=== PATIENT | female | born 1955 ===

== ENCOUNTER 2025-01-16 19:00 | Inpatient (IN) | payer OTHER, SELFPAY ==
--- NOTE | ~2025-01-16 | XR_ITS ---
CLINICAL HISTORY: pre-mri clearance, poor historian, ro implants FB 1 view chest x-ray Comparison: None provided Findings: Mild diffuse reticulonodular pulmonary opacity. Heart size is normal. No acute fracture. IMPRESSION: Mild atypical pneumonia. This document has been electronically signed by: Oral Hilton MD on 03/03/2025 20:45:53
--- NOTE | ~2025-01-16 | CT_ITS ---
EXAMINATION: CT CHEST WITHOUT THEN WITH IV CONTRAST INDICATION: Rule out adenopathy COMPARISON: Correlation is made with an AP portable view of the chest dated 525. TECHNIQUE: Helical CT scan of the chest was performed for an after the administration of intravenous contrast (85 mL Omnipaque 350). Coronal and sagittal reformatted images were generated and reviewed. This CT exam was performed with one or more of the following dose reduction techniques: automated exposure control, adjustment of the mA and/or kV according to patient size, use of iterative reconstruction technique. DLP: 276 mGy-cm CHEST: THYROID: The thyroid is unremarkable. LUNGS: There are mild emphysematous changes. There are multiple nodules in the right upper lobe measuring 7 mm and 8 mm (series 12, image 37) and 9 mm (series 12, image 38). There is a 10 mm nodule in the left upper lobe (series 12, image 58). There is subsegmental atelectasis at the lung bases. MEDIASTINUM: There is no mediastinal lymphadenopathy. ODILON: There is no hilar lymphadenopathy. CARDIOVASCULATURE: The heart is enlarged. There is no pericardial effusion. The thoracic aorta is normal in caliber. There is dilatation of the main pulmonary artery system with pulmonary arterial hypertension. DEGREE OF CORONARY CALCIFICATION: none PLEURA: There is no pleural effusion. No pneumothorax. MAIN AIRWAYS: The mainstem bronchi and proximal branches are patent. AXILLA: There is no axillary lymphadenopathy. BONES AND SOFT TISSUES: There is degenerative disc disease of the spine. UPPER ABDOMEN: The visualized portions of the liver, spleen, and adrenals are unremarkable. CT/CT chest wo/w IV con IMPRESSION: 1. Multiple bilateral pulmonary nodules measuring up to 10 mm in size. Further evaluation should be based on Fleischner Society guidelines below. 2. Cardiomegaly. Findings consistent with pulmonary arterial hypertension. 3. No evidence of mediastinal or hilar lymphadenopathy. Fleischner Criteria for pulmonary nodule follow-up SOLID NODULES: Low risk patient: <6mm: no follow-up 6-8mm: 6 month follow-up CT >8mm: PET/Biopsy/ 3 month follow-up CT High risk patient: <6mm: 12 month follow-up CT 6-8mm: 6 month follow-up CT >8mm: PET/Biopsy/ 3 month follow-up CT SUB-SOLID/GROUNDGLASS NODULES: All patients: > or = 6mm: 6 month follow-up CT *Please note that in patients in the following categories, the Fleischner criteria do not apply: Immunocompromised, lung cancer screening population, age below 35, and patients with known malignancy Electronically signed by: Best Clemons MD 03/11/2025 01:45 PM EDT
--- NOTE | ~2025-01-16 | XR_ITS ---
CLINICAL HISTORY: pre-mri clearance, poor historian, ro implants FB 2 view skull Comparison: None provided Findings: Electronic over the right calvarium is present with leads extending intracranially. Bones are intact. Paranasal sinuses and mastoids are clear. No radiopaque foreign body. IMPRESSION: Electronic device over the right calvarium. This document has been electronically signed by: Oral Hilton MD on 03/03/2025 20:45:43
--- NOTE | ~2025-01-16 | CT_ITS ---
EXAMINATION: CT ANGIOGRAM BRAIN, HEAD CLINICAL INFORMATION: Vasculitis COMPARISON: CT of the head without intravenous contrast on March 05, 2025 TECHNIQUE: Test bolus sequences followed by intravenous administration 85 cc of Omnipaque 350 intravenous contrast. Helical imaging was performed in the axial plane from the skull base to the vertex. Delayed postcontrast imaging of the head was also performed. The data was processed at the 3d technologist workstation for generation of MIP sequences. Three-dimensional volume rendered reformatted images were also generated at an offline 3-D workstation. The degree of stenosis determined by NASCET criteria. This CT examination was performed using dose optimization techniques as appropriate, variously including the following: *Automated exposure control *Adjustment of mA and/or kV according to patient size (this includes techniques or standardized protocols for targeted exams where dose is matched to indication/reason for exam; i.e. extremities or head) *Use of iterative reconstruction technique FINDINGS: Metallic cochlear nerve implant on patient's right posterior head creates streak artifacts that partially limit local evaluation. Head CT: Brain parenchyma: No shift of midline structures, mass effect, parenchymal hemorrhage or evidence of acute territorial infarct. Patchy hypodensities in the white matter most likely reflect a manifestation of chronic small vessel ischemic changes. Ventricles and extra-axial spaces: No hydrocephalus. No extra-axial fluid collection. Extracranial structures: Paranasal sinuses are clear. Bilateral orbital prostheses in place. Postoperative changes of right canal wall up mastoidectomy. Right-sided cochlear nerve implant device in place. No acute calvarial fracture. CT angiogram of the head: Anterior circulation: No aneurysm, arteriovenous malformation or vascular occlusion. Intracranial internal carotid arteries are patent. Anterior and middle cerebral arteries are patent. Anterior communicating artery is not well seen. Posterior circulation: No aneurysm, arteriovenous malformation or vascular occlusion. Intracranial vertebral and basilar arteries are patent. Posterior cerebral arteries are patent. Left posterior communicating artery is patent. CT/CT angio head IMPRESSION: Head CT: No acute intracranial abnormality. CT angiogram of the head: No vascular occlusions. Electronically signed by: Gypsy Salamanca MD 03/11/2025 03:02 PM EDT
--- NOTE | ~2025-01-16 | CT_ITS ---
EXAMINATION: CT HEAD WITHOUT CONTRAST CLINICAL INFORMATION: Encephalopathy. COMPARISON: None available. TECHNIQUE: Contiguous axial imaging was performed from the skull base to vertex without intravenous administration of contrast. This CT examination was performed using dose optimization techniques as appropriate, variously including the following: *Automated exposure control *Adjustment of mA and/or kV according to patient size (this includes techniques or standardized protocols for targeted exams where dose is matched to indication/reason for exam; i.e. extremities or head) *Use of iterative reconstruction technique FINDINGS: There is a right sided sided cochlear nerve implant in place, with associated streak artifact, mildly limiting the examination, especially in the right posterior temporal and parietal region. There is no evidence of intracranial hemorrhage or extra-axial fluid collection. There is no mass effect, or edema. No CT evidence of acute territorial infarct. Ventricles, sulci, and cisterns are normal in size and configuration for patient age. No hydrocephalus. No midline shift. Negative hyperdense MCA sign. Negative insular ribbon sign. Patchy periventricular and deep white matter hypoattenuation is consistent with mild to moderate small vessel ischemic changes. Normal pituitary. Mild atheromatous calcification of the bilateral carotid siphons and V4 segments vertebral arteries bilaterally. Globes and orbital contents image normally. In the superolateral bilateral orbits there are prostheses present. No extracranial soft tissue abnormalities. The paranasal sinuses are normally aerated. There has been a right canal wall up mastoidectomy. Cochlear nerve implant device in place. No suspicious bony abnormalities. There are no acute fractures evident. CT/CT head/brain wo IV con IMPRESSION: 1. No acute intracranial abnormality. 2. Right-sided cochlear nerve implant with associated streak artifact. 3. Right-sided canal wall up mastoidectomy. Electronically signed by: Levi Greer MD 03/05/2025 04:25 PM EDT
--- NOTE | ~2025-01-16 | FL_ITS ---
EXAMINATION: XR LUMBAR PUNCTURE CLINICAL INFORMATION: Encephalopathy COMPARISON: None available. TECHNIQUE: Following explaining procedure, benefits and risk to patient's daughter the following consent was obtained in presence of x-ray technologist. Patient was placed in left lateral ligament is seen in the OR and conscious sedation was administered and a status. In left lateral decubitus view under fluoroscopy a site was selected and marker placed at L3-4 disc level. The marked site was cleaned and draped in usual sterile manner. 1% lidocaine was administered puncture site. A 20-gauge spinal needle was then inserted from from left para midline region intrathecally. After removing stylet and observing CSF fluid return, fluid was collected in 4 test tubes. Postprocedure stylet was reintroduced and needle withdrawn. Complete hemostasis achieved at puncture site. Sterile Band-Aid applied postprocedure. FINDINGS: Under lateral fluoroscopy a lumbar puncture was performed at L3-4 disc level. The CSF flow is very slow and CSF pressure was not obtained. Approximately 3.5 mL of clear CSF fluid was collected in 4 test tubes and sent to lab as per referring physician's orders. FLUOROSCOPY TIME: 2.5 minutes DOSE AREA PRODUCT: 21.5 uGy-m2 (microgray-meter squared) FL/FL guided lumbar puncture LP IMPRESSION: Successful fluoroscopy-guided lumbar puncture performed without immediate complications Electronically signed by: Thompson Andujar MD 03/09/2025 04:06 PM EDT
--- NOTE | ~2025-01-16 | CT_ITS ---
EXAMINATION: CT CHEST WITHOUT CONTRAST CLINICAL INFORMATION: Follow up pulmonary nodules. COMPARISON: CT chest 03/11/2025. TECHNIQUE: Multidetector volumetric CT imaging of the chest was done. Axial MIP volume rendering provided. Sagittal and coronal reformatted images were obtained. This CT examination was performed using dose optimization techniques as appropriate, variously including the following: *Automated exposure control *Adjustment of mA and/or kV according to patient size (this includes techniques or standardized protocols for targeted exams where dose is matched to indication/reason for exam; i.e. extremities or head) *Use of iterative reconstruction technique FINDINGS: LUNGS: Evaluation mildly limited by respiratory motion artifact. Mild to moderate paraseptal emphysematous changes again noted. Previously seen right upper lobe nodules measuring 7 and 8 mm have essentially resolved since the prior examination. A persistent focus of nodular appearing scarring is unchanged in the lateral right upper lobe measuring 9 mm (series 5, image 40). Previously seen left upper lobe nodule measuring 10 mm has also resolved. These were presumably infectious and/or inflammatory. There is stable linear scarring in the right middle lobe distribution, and discoid type atelectasis present in the lingular distribution. Mild medial scarring in the left upper lobe anteriorly is also stable. There are no pneumonic consolidations or abnormal groundglass opacities. There is thickening of the small airways consistent with bronchitis. This appears worsened from the prior exam. No interstitial changes are present. No effusion or pneumothorax. MEDIASTINUM: Normal thyroid. No adenopathy or mass present. Moderate cardiac enlargement present. Tiny pericardial effusion. Minimal coronary calcifications. Mild prominence of the main pulmonary artery, measuring up to 3.8 cm diameter, suggesting increased pulmonary pressures. The aorta is mildly calcified but normal in caliber. 2 vessel branching pattern. Great vessels appear minimally calcified. There is a small amount of secretion in the distal trachea. Central airways otherwise patent. Mildly patulous esophagus present. AXILLA: No mass or abnormal lymph nodes is present. UPPER ABDOMEN: Limited imaging of the upper abdominal contents demonstrates no abnormalities. OSSEOUS STRUCTURES: No suspicious lytic or blastic bone lesions. Mild to moderate degenerative changes of the spine. Sclerosis of the endplates present T8-9, and T11-12 with severe intervening disc degeneration. CT/CT chest wo IV con IMPRESSION: 1. Majority of the previously seen pulmonary nodules have resolved, and were consistent with infectious or inflammatory etiology. 2. There is a persistent 9 mm nodular focus in the lateral right upper lobe, which is felt to represent scarring given the appearance. To be cautious, a 3 month interval follow-up CT is recommended to ensure stability. 3. There is mild to moderate paraseptal emphysema. There is no acute pneumonic consolidation. 4. There is thickening of the small airways suggesting bronchitis. 5. There is moderate cardiac enlargement. Enlarged main pulmonary artery is consistent with pulmonary arterial hypertension. Electronically signed by: Levi Greer MD 04/24/2025 10:56 AM EDT
--- NOTE | ~2025-01-16 | XR_ITS ---
CLINICAL HISTORY: pre-mri clearance, poor historian, ro implants FB --- Additional Notes or Special Instructions: floor will call when they will bring pt down 1 view abdomen Comparison: None provided Findings: No pneumoperitoneum or pneumatosis. Large amount of colonic stool. No abnormal calcifications. No acute fractures. IMPRESSION: Normal bowel gas pattern This document has been electronically signed by: Oral Hilton MD on 03/03/2025 20:45:47
[2025-01-16 19:10] VITALS: BP 144/70; PULSE 59; O2SAT 96
[2025-01-16 19:13] VITALS: BP 167/63; PULSE 65; RESP 14; TEMP 36.6; O2SAT 95; BMI 28.3
--- NOTE | 2025-01-16 19:21 | MHC.EDTECH ---
pts belongings are in locker number 5 in the pod
--- NOTE | 2025-01-16 19:28 | ED_ITS ---
HPI - General Adult General Chief complaint: Altered Mental Status Stated complaint: psych eval Time Seen by Provider: 01/16/25 19:27 Source: patient, family (patient's son and daughter) and EMS Mode of arrival: EMS Limitations: altered mental status History of Present Illness ED Provider: Lottie Aguilera PA-C HPI narrative: Patient is a 69 year old assigned female at with a history of COPD, RA, HTN, hypothyroidism, legally blind, and hearing loss with hearing aids presenting to the emergency department today with paranoia. Patient states that she has no complaints and she wants to go home with her children. Patient's daughter Maricruz Sharif explained via telephone that she arrived at [facility] to pick the patient up after an inpatient psychiatric stay and the patient refused to get in her vehicle because she believes she and her brother are clones or being controlled by someone else and not actually them. She states that she tried to explain to [facility] that the patient was still acting paranoid / unwell and [facility] refused to listen / re-admit the patient. She states the patient is currently unsafe in her current state of mind and was unsuccessful trying to convince the patient she is who she says she is. Related Data Home Medications ?Medication ?Instructions ?Recorded ?Confirmed albuterol sulfate 90 mcg/actuation 2 puff inhalation Q 4-6H PRN 01/18/25 01/18/25 aerosol inhaler Shortness Of Breath Or Wheez ing atorvastatin 40 mg tablet 40 mg PO DAILY 01/18/2512/29 chlorthalidone 25 mg tablet 25 mg PO DAILY 01/18/25 fluticasone 500 mcg-salmeterol 50 1 inh inhalation ALIVIA LY 01/18/25 01/18/25 mcg/dose blistr powdr for inhalation (Wixela Inhub) levetiracetam 500 mg tablet 500 mg PO BID 01/18/25 methimazole 5 mg tablet 5 mg PO DAILY 01/18/2501/18 nifedipine 30 mg tablet,extended 30 mg PO DAILY 01/18/25 release 24 hr terbinafine HCl 250 mg tablet 250 mg PO DAILY 01/18/25 01/18/25 umeclidinium 62.5 mcg/actuation 1 inh inhalation DAILY 01/18/25 01/18/25 blister powder for inhalation (Incruse Ellipta) Allergies Allergy/AdvReac Type Severity Reaction Status Date / Time latex Allergy Unknown Verified 01/16/25 20:11 peanut Allergy Unknown Verified 01/16/25 20:11 Penicillins Allergy Unknown Verified 01/16/25 20:11 Review of Systems 2 Review of Systems: Yes Other (patient refused to answer ROS questions) Constitutional: Constitutional: Reports as per HPI Eyes: Eyes: Reports as per HPI ENT: Reports as per HPI Cardiovascular: Cardiovascular: Reports as per HPI Respiratory: Respiratory: Reports as per HPI Gastrointestinal: Gastrointestinal: Reports as per HPI Genitourinary: Genitourinary: Reports as per HPI Musculoskeletal: Musculoskeletal: Reports as per HPI Integumentary/Breasts: Skin/Breast: Reports as per HPI Neurologic: Reports as per HPI Psychiatric: Psychiatric: Reports as per HPI Endocrine: Endocrine: Reports as per HPI Hematologic/Lymphatic: Hematologic/Lymphatic: Reports as per HPI Allergic/Immunologic: Allergic/Immunologic: Reports as per HPI [facility] Past Medical History Attestation statement: The following information was validated with the patient. (all information validated with the patient's daughter and son) Source: old records reviewed, obtained from family (patient's daughter Maricruz provided all history) and nursing notes reviewed Social History Social History Household Members: Unknown / Unable to assess Housing: Unknown / Unable to assess Do you presently have visiting nurse or other home services: No Patient Tobacco Use Status: Former Tobacco user Tobacco use type: Cigarette Smoked in Last 30 Days: No e-Cigarette/Vaping Use: Never Used Patient Interested in Nicotine Replacement: No Patient Given Instructions on How to Stop Smoking: No Second Hand Smoke Exposure: No Currently Displaying Signs/Symptoms of Drug Intoxication Withdrawal: No Spiritual Healthcare Practices: unknown, pt unable to respond due to mental status/psychosis Congregational Healthcare Practices: unknown, pt unable to respond due to mental status/psychosis Cultural Healthcare Practices: unknown, pt unable to respond due to mental status/psychosis Advance Directives: No Advance Directives Information Provided: No Do you have thoughts of harming others: None Do you have a plan to hurt others: No Plan Recently lost weight without trying: Unsure How much weight loss: Unsure Eating poorly because of decreased appetite: No Nutrition screen score: 4 Nutrition Risks: No Nutritional Risk Patient : No : No Poor oral hygiene: No service: No Sexual orientation: Straight/Heterosexual Physical Exam ED Vital Signs: Vital Signs - 24 hr 01/19/25 23:50 01/20/25 07:35 01/20/25 12:30 Temperature 97.5 F 97.2 F Pulse Rate 62 59 60 Respiratory Rate 18 14 18 Blood Pressure 140/58 H 108/55 L 111/55 L Pulse Oximetry 97 97 Oxygen Delivery Method Room Air Room Air 01/20/25 12:31 Temperature Pulse Rate Respiratory Rate Blood Pressure 111/55 L Pulse Oximetry Oxygen Delivery Method BMI result Body Mass Index 28.3 Const General: cooperative, no acute distress, alert and awake Nutritional Appearance: well nourished Orientation/consciousness: patient oriented x3 HENMT Head: Yes normal to inspection and Yes atraumatic Ears: other (decreased hearing per her baseline - hearing aids in place) General nose exam: Normal external nose present, no nasal discharge noted and no epistaxis Face and sinus: Yes normal facial exam, No abrasion and No laceration Mouth: Normal oral and palatal mucosa present, no drooling and no muffled voice Eyes Other: Legally blind per her baseline General: appearance normal, both eyes and all related structures Periorbital: periorbital findings normal Conjunctivae: conjunctivae normal Neck Neck: Yes normal visual inspection, Yes full ROM and Yes no lymphadenopathy Resp Effort & Inspection: normal respiratory effort and able to speak in complete sentences Neuro General: patient oriented x3, moves all extremities and CN's II-XI intact bilaterally Cognition (Neuro): normal cognition Extrem General: Yes normal to inspection, Yes full ROM and Yes capillary refill normal Psych Appearance: grossly normal Mental Status: mental status grossly normal Attitude: Belligerent attititude/behavior present and Guarded attititude/behavior present Thought content: Paranoid delusions present Course Course Course Narrative: Daughter Maricruz: [phone] OR [phone] Son Anne Marie: [phone] Reevaluation(s) Reevaluation #1: I, Dr. Salomon have take over the care of this patient, I reviewed pertinent blood work and imaging, re-evaluated the patient when appropriate. Time: 07:00 Reevaluation #2: Time: 10:31 Date: 01/17/25 Provider: Yovani Salomon DO Patient in physician observation for psychiatric evaluation.? Swathi psych bed search Time: 10:30 Reevaluation #3: Time: 15:44 Date: 01/18/25 Provider: Maddy Chen CNP Nursing staff that patient was acutely agitated yelling out, threat to self and others. Was not amenable to taking medications orally. Had taken oral Zyprexa earlier in the day with good effect. She is unable to be redirected verbally. Orders have been placed for Zyprexa 10 mg IM. -- 16:30 patient calm cooperative verbally redirectable no physical restraints were required Time: 18:35 Date: 01/18/25 Provider: Adan Abreu MD Patient in physician observation for psychiatric evaluation.? Nursing staff reports the patient is agitated trying to leave the Behavioral Health unit. Patient was medicated earlier with the Zyprexa with some effect. Given her increased agitation I ordered chemical restraint Haldol 10 mg IM, thanks Benadryl 50 mg IM and Versed 2 mg IM. Will continue to monitor. Additional Reevaluation(s): Time: 14:00 Date: 01/20/25 Provider: Aayush Cardoso MD Physician observation ended at 14:00. Patient to be admitted as inpatient to psychiatry. Consultations Consultation #1: I, Dr. Salomon have take over the care of this patient, I reviewed pertinent blood work and imaging, patient has been refusing her workup as per RN, I will evaluate her to determine if I can medically clear her Time: 07:00 Consultation #2: Time: 18:20 Date: 01/19/25 Provider: Aayush Cardoso MD Patient in physician observation for psychiatric evaluation.? No acute events reported overnight. No current complaints. VS stable.? Patient is in bed search status. The patient had not originally agreed to phlebotomy and blood testing. The patient was seen by Psychiatry. They have requested that the patient have blood testing done before considering hospitalization. The patient ultimately was convinced to allow phlebotomy. Labs were done and are unremarkable. I think the patient is medically clear for admission to a psychiatric unit. The patient will be kept in physician observation for now pending psychiatric disposition..Will continue to monitor. Time: 13:57 Date: 01/20/25 Provider: Adan Abreu MD Physician observation ended at 13:57 hours. Patient to be admitted as inpatient to psychiatry. Medications Administered Generic Name Dose Route Start Last Admin Trade Name Freq PRN Reason Stop Dose Admin Acetaminophen 650 mg 01/20/25 12:52 02/04/25 06:38 Acetaminophen 325 Mg Tablet PO 650 mg Q6H PRN Administration Headache/Pain, Scale 1-10 Atorvastatin Calcium 40 mg 01/20/25 11:30 02/05/25 08:17 Atorvastatin Calcium 40 Mg Tablet PO 40 mg DAILY ALLY Administration Benztropine Mesylate 0.5 mg 02/05/25 09:00 02/05/25 08:16 Benztropine Mesylate 0.5 Mg Tablet PO 0.5 mg DAILY ALLY Administration Benztropine Mesylate 1 mg 02/04/25 21:00 02/05/25 04:59 Benztropine Mesylate 1 Mg Tablet PO Not Given BEDTIME ALLY Clonazepam 0.5 mg 02/02/25 10:35 02/04/25 12:19 Clonazepam Odt 0.5 Mg Tab.Rapdis PO 0.5 mg BID PRN Administration severe anxiety/sleep Fluticasone/Vilanterol 1 puff 01/21/25 09:00 02/05/25 08:26 Fluticasone/Vilanterol 200/25 Blst.W.Dev INHALE Not Given RDAILY ALLY Hydrochlorothiazide 25 mg 01/21/25 09:00 02/05/25 08:16 Hydrochlorothiazide 25 Mg Tablet PO 25 mg DAILY ALLY Administration Levetiracetam 500 mg 01/20/25 11:30 02/05/25 08:17 Levetiracetam 500 Mg Tablet PO 500 mg BID ALLY Administration Methimazole 5 mg 01/20/25 11:30 02/05/25 08:16 Methimazole 5 Mg Tablet PO 5 mg DAILY ALLY Administration Nifedipine 30 mg 01/20/25 11:30 02/05/25 08:16 Nifedipine Er 30 Mg Tab.Er.24 PO 30 mg DAILY ALLY Administration Protocol Olanzapine 10 mg 01/22/25 10:17 02/03/25 20:14 Olanzapine 10 Mg Tablet PO 10 mg Q6H PRN Administration severe agitation Risperidone 0.5 mg 02/03/25 09:00 02/05/25 08:16 Risperidone 0.5 Mg Tablet PO 0.5 mg DAILY ALLY Administration Risperidone 2 mg 02/04/25 21:00 02/04/25 21:37 Risperidone 2 Mg Tablet PO Not Given BEDTIME ALLY Tiotropium [place] 1 puff 01/21/25 09:00 02/05/25 08:26 Tiotropium [place] 2.5 Mcg 1 Puff/2.5 Mcg Mist.Inhal INHALE Not Given RDAILY ALLY Trazodone HCl 50 mg 01/20/25 12:52 02/03/25 20:15 Trazodone Hcl 50 Mg Tablet PO 50 mg BEDTIME MRX1 PRN Administration Insomnia Discontinued Medications Generic Name Dose Route Start Last Admin Trade Name Freq PRN Reason Stop Dose Admin Acetaminophen 650 mg 01/19/25 23:30 01/19/25 23:50 Acetaminophen 325 Mg Tablet PO 01/19/25 23:31 Not Given ONCE ONE Benztropine Mesylate 1 mg 01/26/25 15:12 01/26/25 16:50 Benztropine Mesylate 1 Mg Tablet PO 01/26/25 15:13 Not Given ONCE ONE Benztropine Mesylate 0.5 mg 01/26/25 21:00 02/04/25 08:16 Benztropine Mesylate 0.5 Mg Tablet PO 0.5 mg BID ALLY Administration Clonazepam 0.5 mg 01/25/25 21:00 02/02/25 08:24 Clonazepam Odt 0.5 Mg Tab.Rapdis PO 0.5 mg BID ALLY Administration Diphenhydramine HCl 50 mg 01/18/25 18:30 01/18/25 18:35 Diphenhydramine Hcl 50 Mg/Ml Vial IM 01/18/25 18:31 50 mg ONCE ONE Administration Diphenhydramine HCl 50 mg 01/19/25 23:39 01/19/25 23:50 Diphenhydramine Hcl 50 Mg/Ml Vial IM 01/19/25 23:40 50 mg ONCE ONE Administration Haloperidol Lactate 10 mg 01/18/25 18:30 01/18/25 18:35 Haloperidol Lactate 5 Mg/Ml Vial IM 01/18/25 18:31 10 mg ONCE ONE Administration Midazolam HCl 2 mg 01/18/25 18:30 01/18/25 18:35 Midazolam Hcl 2 Mg/2 Ml Vial IM 01/18/25 18:31 2 mg ONCE ONE Administration Olanzapine 5 mg 01/17/25 09:41 01/17/25 10:03 Olanzapine 5 Mg Tablet PO 01/17/25 09:42 5 mg ONCE ONE Administration Olanzapine 5 mg 01/17/25 14:08 01/17/25 15:58 Olanzapine 5 Mg Tablet PO 01/17/25 14:09 Not Given ONCE ONE Olanzapine 10 mg 01/17/25 21:00 01/21/25 21:03 Olanzapine Odt 10 Mg Tab.Rapdis TRANSLINGU Not Given BEDTIME ALLY Olanzapine 5 mg 01/17/25 14:09 01/18/25 14:25 Olanzapine 5 Mg Tablet PO 5 mg Q6H PRN Administration severe agitation Olanzapine 10 mg 01/18/25 05:34 01/18/25 07:08 Olanzapine 10 Mg Vial IM 01/18/25 05:35 Not Given STAT STA Olanzapine 10 mg 01/18/25 15:36 01/18/25 15:40 Olanzapine 10 Mg Vial IM 01/18/25 15:37 10 mg ONCE ONE Administration Olanzapine 10 mg 01/19/25 23:39 01/19/25 23:50 Olanzapine 10 Mg Vial IM 01/19/25 23:40 10 mg STAT STA Administration Olanzapine 5 mg 02/02/25 10:33 02/04/25 21:31 Olanzapine 10 Mg Vial IM 5 mg BID PRN Administration if refuses oral per court orde Risperidone 1 mg 01/22/25 10:20 01/25/25 08:27 Risperidone 1 Mg Tablet PO 1 mg BID ALLY Administration Risperidone 2 mg 01/25/25 21:00 01/26/25 08:24 Risperidone 2 Mg Tablet PO 2 mg BID ALLY Administration Risperidone 1 mg 01/26/25 21:00 02/02/25 20:03 Risperidone 1 Mg Tablet PO 1 mg BID ALLY Administration Risperidone 1 mg 02/03/25 21:00 02/03/25 20:15 Risperidone 1 Mg Tablet PO 1 mg BEDTIME ALLY Administration Medical Decision Making Medical Decision Making MDM Narrative: Patient is a 69 year old assigned female at with a history of COPD, RA, HTN, hypothyroidism, legally blind, and hearing loss with hearing aids presenting to the emergency department today with paranoia. Patient's physical exam was as noted in the physical exam portion of this note. Patient has paranoid delusions of people not being who they claim to be or being other people and she seem to respond to internal stimuli during my interactions with her. At this time, the patient is refusing all blood draws or an EKG. Patient's urine showed no acute process. I had an extensive conversation with the patient's daughter who expressed concern over the patient's continued and increased paranoia. Patient will remain in the department pending CARE team evaluation. 01/19/25 1109 Angela Goodrich MD I was informed by the patient's nurse that she is very agitated, can not be deescalated, patient does not seem to understand what she is doing. Patient trying to rip the door from her room. Patient not taking p.o. medications. Patient we will be given 10 mg IM of olanzapine and 50 mg of IM Benadryl Differential Diagnosis Differential Diagnoses: The differential diagnosis associated with the presentation includes Paranoia Admission/Observation Consideration of admission/observation: Escalation of care including admission/observation considered Patient's disposition will be determined after CARE team evaluation. Lab Data [facility] Lab Attestation statement: I reviewed the patient's lab results. My interpretation of these results are in the MDM Rationale portion of this note. 01/19/25 12:57 02/03/25 07:41 Labs: Lab Results 01/16/25 01/19/25 01/19/25 Range/Units 21:32 12:57 12:57 WBC 5.3 5.0 (4.8-10.8) X10*3/uL RBC 4.44 (4.20-5.50) X10*6/uL Hgb (12.0-16.0) g/dl Hct (37.0-47.0) % MCV (80.0-98.0) fL MCH (27.0-33.0) pg MCHC (31.0-35.0) g/dl RDW (11.0-16.0) % Plt Count (160-400) X10*3/uL MPV (9.4-12.3) fL Immature Gran % (Auto) (0.0-0.4) % Neut % (Auto) (45-73) % Lymph % (Auto) (20-40) % [place] % (Auto) (2-11) % Eos % (Auto) (0-4) % Baso % (Auto) (0-2) % Lymph # (Auto) (1.2-4.9) X10*3/uL [place] # (Auto) (0.1-1.2) X10*3/uL Eos # (Auto) (0.0-0.4) X10*3/uL Baso # (Auto) (0.0-0.2) X10*3/uL Abs Immat Gran (auto) (0.00-0.03) X10*3/uL Absolute Neuts (auto) (2.0-8.3) x10*3/uL Absolute Nucleated RBC (0.0-0.012) X10*3/uL Nucleated RBC % (auto) (0.0-0.2) /100WBC Sodium (135-145) mmol/L Potassium (3.3-5.1) mmol/L Chloride (96-108) mmol/L Carbon Dioxide (22-29) mmol/L Anion Gap (12-20) BUN (9-16) mg/dL Creatinine (0.5-1.4) mg/dL Estim Creat Clear Calc Estimated GFR Random Glucose (60-115) mg/dL Calcium (8.4-10.2) mg/dL Total Bilirubin (0.0-1.0) mg/dL AST (5-31) U/L ALT (0-31) U/L Alkaline Phosphatase (39-117) U/L Total Protein (6.5-8.0) g/dL Albumin (3.5-5.0) g/dL Vitamin B12 (200-900) pg/mL Folate (> or = 4.0) ng/mL TSH (0.32-4.0) uIU/mL Urine Color Yellow Urine Appearance Clear Urine pH 6.0 (5.0-9.0) Ur Specific [place] 1.015 (1.005-1.025) Urine Protein Negative (Neg-Trace) mg/dL Urine Glucose (UA) Negative (Negative) mg/dL Urine Ketones Negative (Negative) mg/dL Urine Blood Negative (Negative) Urine Nitrite Negative (Negative) Ur Leukocyte Esterase Negative (Negative) Salicylates (15-30) mg/dL Urine Opiates Screen Not Detected (Not Detect) Ur Buprenorphine Scrn Not Detected (Not Detect) ng/mL Ur Oxycodone Screen Not Detected (Not Detect) ng/mL Urine Methadone Screen Not Detected (Not Detect) ng/mL Urine Fentanyl Screen Not Detected (Not Detect) Acetaminophen (<30) mcg/mL Ur Barbiturates Screen Not Detected (Not Detect) Ur Phencyclidine Scrn Not Detected (Not Detect) Ur Amphetamines Screen Not Detected (Not Detect) U Benzodiazepines Scrn Not Detected (Not Detect) Urine Cocaine Screen Not Detected (Not Detect) U Marijuana (THC) Screen Not Detected (Not Detect) Ethyl Alcohol mg/dL 01/19/25 01/19/25 01/19/25 Range/Units 12:57 12:57 12:57 WBC (4.8-10.8) X10*3/uL RBC 4.44 (4.20-5.50) X10*6/uL Hgb 13.9 14.1 (12.0-16.0) g/dl Hct 41.9 41.2 (37.0-47.0) % MCV 94.4 (80.0-98.0) fL MCH (27.0-33.0) pg MCHC (31.0-35.0) g/dl RDW (11.0-16.0) % Plt Count (160-400) X10*3/uL MPV (9.4-12.3) fL Immature Gran % (Auto) (0.0-0.4) % Neut % (Auto) (45-73) % Lymph % (Auto) (20-40) % [place] % (Auto) (2-11) % Eos % (Auto) (0-4) % Baso % (Auto) (0-2) % Lymph # (Auto) (1.2-4.9) X10*3/uL [place] # (Auto) (0.1-1.2) X10*3/uL Eos # (Auto) (0.0-0.4) X10*3/uL Baso # (Auto) (0.0-0.2) X10*3/uL Abs Immat Gran (auto) (0.00-0.03) X10*3/uL Absolute Neuts (auto) (2.0-8.3) x10*3/uL Absolute Nucleated RBC (0.0-0.012) X10*3/uL Nucleated RBC % (auto) (0.0-0.2) /100WBC Sodium (135-145) mmol/L Potassium (3.3-5.1) mmol/L Chloride (96-108) mmol/L Carbon Dioxide (22-29) mmol/L Anion Gap (12-20) BUN (9-16) mg/dL Creatinine (0.5-1.4) mg/dL Estim Creat Clear Calc Estimated GFR Random Glucose (60-115) mg/dL Calcium (8.4-10.2) mg/dL Total Bilirubin (0.0-1.0) mg/dL AST (5-31) U/L ALT (0-31) U/L Alkaline Phosphatase (39-117) U/L Total Protein (6.5-8.0) g/dL Albumin (3.5-5.0) g/dL Vitamin B12 (200-900) pg/mL Folate (> or = 4.0) ng/mL TSH (0.32-4.0) uIU/mL Urine Color Urine Appearance Urine pH (5.0-9.0) Ur Specific [place] (1.005-1.025) Urine Protein (Neg-Trace) mg/dL Urine Glucose (UA) (Negative) mg/dL Urine Ketones (Negative) mg/dL Urine Blood (Negative) Urine Nitrite (Negative) Ur Leukocyte Esterase (Negative) Salicylates (15-30) mg/dL Urine Opiates Screen (Not Detect) Ur Buprenorphine Scrn (Not Detect) ng/mL Ur Oxycodone Screen (Not Detect) ng/mL Urine Methadone Screen (Not Detect) ng/mL Urine Fentanyl Screen (Not Detect) Acetaminophen (<30) mcg/mL Ur Barbiturates Screen (Not Detect) Ur Phencyclidine Scrn (Not Detect) Ur Amphetamines Screen (Not Detect) U Benzodiazepines Scrn (Not Detect) Urine Cocaine Screen (Not Detect) U Marijuana (THC) Screen (Not Detect) Ethyl Alcohol mg/dL 01/19/25 01/19/25 01/19/25 Range/Units 12:57 12:57 12:57 WBC (4.8-10.8) X10*3/uL RBC (4.20-5.50) X10*6/uL Hgb (12.0-16.0) g/dl Hct (37.0-47.0) % MCV 92.8 (80.0-98.0) fL MCH 31.3 31.8 (27.0-33.0) pg MCHC 33.2 34.2 (31.0-35.0) g/dl RDW 12.2 (11.0-16.0) % Plt Count (160-400) X10*3/uL MPV (9.4-12.3) fL Immature Gran % (Auto) (0.0-0.4) % Neut % (Auto) (45-73) % Lymph % (Auto) (20-40) % [place] % (Auto) (2-11) % Eos % (Auto) (0-4) % Baso % (Auto) (0-2) % Lymph # (Auto) (1.2-4.9) X10*3/uL [place] # (Auto) (0.1-1.2) X10*3/uL Eos # (Auto) (0.0-0.4) X10*3/uL Baso # (Auto) (0.0-0.2) X10*3/uL Abs Immat Gran (auto) (0.00-0.03) X10*3/uL Absolute Neuts (auto) (2.0-8.3) x10*3/uL Absolute Nucleated RBC (0.0-0.012) X10*3/uL Nucleated RBC % (auto) (0.0-0.2) /100WBC Sodium (135-145) mmol/L Potassium (3.3-5.1) mmol/L Chloride (96-108) mmol/L Carbon Dioxide (22-29) mmol/L Anion Gap (12-20) BUN (9-16) mg/dL Creatinine (0.5-1.4) mg/dL Estim Creat Clear Calc Estimated GFR Random Glucose (60-115) mg/dL Calcium (8.4-10.2) mg/dL Total Bilirubin (0.0-1.0) mg/dL AST (5-31) U/L ALT (0-31) U/L Alkaline Phosphatase (39-117) U/L Total Protein (6.5-8.0) g/dL Albumin (3.5-5.0) g/dL Vitamin B12 (200-900) pg/mL Folate (> or = 4.0) ng/mL TSH (0.32-4.0) uIU/mL Urine Color Urine Appearance Urine pH (5.0-9.0) Ur Specific [place] (1.005-1.025) Urine Protein (Neg-Trace) mg/dL Urine Glucose (UA) (Negative) mg/dL Urine Ketones (Negative) mg/dL Urine Blood (Negative) Urine Nitrite (Negative) Ur Leukocyte Esterase (Negative) Salicylates (15-30) mg/dL Urine Opiates Screen (Not Detect) Ur Buprenorphine Scrn (Not Detect) ng/mL Ur Oxycodone Screen (Not Detect) ng/mL Urine Methadone Screen (Not Detect) ng/mL Urine Fentanyl Screen (Not Detect) Acetaminophen (<30) mcg/mL Ur Barbiturates Screen (Not Detect) Ur Phencyclidine Scrn (Not Detect) Ur Amphetamines Screen (Not Detect) U Benzodiazepines Scrn (Not Detect) Urine Cocaine Screen (Not Detect) U Marijuana (THC) Screen (Not Detect) Ethyl Alcohol mg/dL 01/19/25 01/19/25 01/19/25 Range/Units 12:57 12:57 12:57 WBC (4.8-10.8) X10*3/uL RBC (4.20-5.50) X10*6/uL Hgb (12.0-16.0) g/dl Hct (37.0-47.0) % MCV (80.0-98.0) fL MCH (27.0-33.0) pg MCHC (31.0-35.0) g/dl RDW 12.3 (11.0-16.0) % Plt Count 185 184 (160-400) X10*3/uL MPV 10.5 10.3 (9.4-12.3) fL Immature Gran % (Auto) 0.2 (0.0-0.4) % Neut % (Auto) (45-73) % Lymph % (Auto) (20-40) % [place] % (Auto) (2-11) % Eos % (Auto) (0-4) % Baso % (Auto) (0-2) % Lymph # (Auto) (1.2-4.9) X10*3/uL [place] # (Auto) (0.1-1.2) X10*3/uL Eos # (Auto) (0.0-0.4) X10*3/uL Baso # (Auto) (0.0-0.2) X10*3/uL Abs Immat Gran (auto) (0.00-0.03) X10*3/uL Absolute Neuts (auto) (2.0-8.3) x10*3/uL Absolute Nucleated RBC (0.0-0.012) X10*3/uL Nucleated RBC % (auto) (0.0-0.2) /100WBC Sodium (135-145) mmol/L Potassium (3.3-5.1) mmol/L Chloride (96-108) mmol/L Carbon Dioxide (22-29) mmol/L Anion Gap (12-20) BUN (9-16) mg/dL Creatinine (0.5-1.4) mg/dL Estim Creat Clear Calc Estimated GFR Random Glucose (60-115) mg/dL Calcium (8.4-10.2) mg/dL Total Bilirubin (0.0-1.0) mg/dL AST (5-31) U/L ALT (0-31) U/L Alkaline Phosphatase (39-117) U/L Total Protein (6.5-8.0) g/dL Albumin (3.5-5.0) g/dL Vitamin B12 (200-900) pg/mL Folate (> or = 4.0) ng/mL TSH (0.32-4.0) uIU/mL Urine Color Urine Appearance Urine pH (5.0-9.0) Ur Specific [place] (1.005-1.025) Urine Protein (Neg-Trace) mg/dL Urine Glucose (UA) (Negative) mg/dL Urine Ketones (Negative) mg/dL Urine Blood (Negative) Urine Nitrite (Negative) Ur Leukocyte Esterase (Negative) Salicylates (15-30) mg/dL Urine Opiates Screen (Not Detect) Ur Buprenorphine Scrn (Not Detect) ng/mL Ur Oxycodone Screen (Not Detect) ng/mL Urine Methadone Screen (Not Detect) ng/mL Urine Fentanyl Screen (Not Detect) Acetaminophen (<30) mcg/mL Ur Barbiturates Screen (Not Detect) Ur Phencyclidine Scrn (Not Detect) Ur Amphetamines Screen (Not Detect) U Benzodiazepines Scrn (Not Detect) Urine Cocaine Screen (Not Detect) U Marijuana (THC) Screen (Not Detect) Ethyl Alcohol mg/dL 01/19/25 01/19/25 01/19/25 Range/Units 12:57 12:57 12:57 WBC (4.8-10.8) X10*3/uL RBC (4.20-5.50) X10*6/uL Hgb (12.0-16.0) g/dl Hct (37.0-47.0) % MCV (80.0-98.0) fL MCH (27.0-33.0) pg MCHC (31.0-35.0) g/dl RDW (11.0-16.0) % Plt Count (160-400) X10*3/uL MPV (9.4-12.3) fL Immature Gran % (Auto) 0.2 (0.0-0.4) % Neut % (Auto) 58.7 58.5 (45-73) % Lymph % (Auto) 32.0 32.3 (20-40) % [place] % (Auto) 6.4 (2-11) % Eos % (Auto) (0-4) % Baso % (Auto) (0-2) % Lymph # (Auto) (1.2-4.9) X10*3/uL [place] # (Auto) (0.1-1.2) X10*3/uL Eos # (Auto) (0.0-0.4) X10*3/uL Baso # (Auto) (0.0-0.2) X10*3/uL Abs Immat Gran (auto) (0.00-0.03) X10*3/uL Absolute Neuts (auto) (2.0-8.3) x10*3/uL Absolute Nucleated RBC (0.0-0.012) X10*3/uL Nucleated RBC % (auto) (0.0-0.2) /100WBC Sodium (135-145) mmol/L Potassium (3.3-5.1) mmol/L Chloride (96-108) mmol/L Carbon Dioxide (22-29) mmol/L Anion Gap (12-20) BUN (9-16) mg/dL Creatinine (0.5-1.4) mg/dL Estim Creat Clear Calc Estimated GFR Random Glucose (60-115) mg/dL Calcium (8.4-10.2) mg/dL Total Bilirubin (0.0-1.0) mg/dL AST (5-31) U/L ALT (0-31) U/L Alkaline Phosphatase (39-117) U/L Total Protein (6.5-8.0) g/dL Albumin (3.5-5.0) g/dL Vitamin B12 (200-900) pg/mL Folate (> or = 4.0) ng/mL TSH (0.32-4.0) uIU/mL Urine Color Urine Appearance Urine pH (5.0-9.0) Ur Specific [place] (1.005-1.025) Urine Protein (Neg-Trace) mg/dL Urine Glucose (UA) (Negative) mg/dL Urine Ketones (Negative) mg/dL Urine Blood (Negative) Urine Nitrite (Negative) Ur Leukocyte Esterase (Negative) Salicylates (15-30) mg/dL Urine Opiates Screen (Not Detect) Ur Buprenorphine Scrn (Not Detect) ng/mL Ur Oxycodone Screen (Not Detect) ng/mL Urine Methadone Screen (Not Detect) ng/mL Urine Fentanyl Screen (Not Detect) Acetaminophen (<30) mcg/mL Ur Barbiturates Screen (Not Detect) Ur Phencyclidine Scrn (Not Detect) Ur Amphetamines Screen (Not Detect) U Benzodiazepines Scrn (Not Detect) Urine Cocaine Screen (Not Detect) U Marijuana (THC) Screen (Not Detect) Ethyl Alcohol mg/dL 01/19/25 01/19/25 01/19/25 Range/Units 12:57 12:57 12:57 WBC (4.8-10.8) X10*3/uL RBC (4.20-5.50) X10*6/uL Hgb (12.0-16.0) g/dl Hct (37.0-47.0) % MCV (80.0-98.0) fL MCH (27.0-33.0) pg MCHC (31.0-35.0) g/dl RDW (11.0-16.0) % Plt Count (160-400) X10*3/uL MPV (9.4-12.3) fL Immature Gran % (Auto) (0.0-0.4) % Neut % (Auto) (45-73) % Lymph % (Auto) (20-40) % [place] % (Auto) 7.0 (2-11) % Eos % (Auto) 2.1 1.4 (0-4) % Baso % (Auto) 0.6 0.6 (0-2) % Lymph # (Auto) 1.7 (1.2-4.9) X10*3/uL [place] # (Auto) (0.1-1.2) X10*3/uL Eos # (Auto) (0.0-0.4) X10*3/uL Baso # (Auto) (0.0-0.2) X10*3/uL Abs Immat Gran (auto) (0.00-0.03) X10*3/uL Absolute Neuts (auto) (2.0-8.3) x10*3/uL Absolute Nucleated RBC (0.0-0.012) X10*3/uL Nucleated RBC % (auto) (0.0-0.2) /100WBC Sodium (135-145) mmol/L Potassium (3.3-5.1) mmol/L Chloride (96-108) mmol/L Carbon Dioxide (22-29) mmol/L Anion Gap (12-20) BUN (9-16) mg/dL Creatinine (0.5-1.4) mg/dL Estim Creat Clear Calc Estimated GFR Random Glucose (60-115) mg/dL Calcium (8.4-10.2) mg/dL Total Bilirubin (0.0-1.0) mg/dL AST (5-31) U/L ALT (0-31) U/L Alkaline Phosphatase (39-117) U/L Total Protein (6.5-8.0) g/dL Albumin (3.5-5.0) g/dL Vitamin B12 (200-900) pg/mL Folate (> or = 4.0) ng/mL TSH (0.32-4.0) uIU/mL Urine Color Urine Appearance Urine pH (5.0-9.0) Ur Specific [place] (1.005-1.025) Urine Protein (Neg-Trace) mg/dL Urine Glucose (UA) (Negative) mg/dL Urine Ketones (Negative) mg/dL Urine Blood (Negative) Urine Nitrite (Negative) Ur Leukocyte Esterase (Negative) Salicylates (15-30) mg/dL Urine Opiates Screen (Not Detect) Ur Buprenorphine Scrn (Not Detect) ng/mL Ur Oxycodone Screen (Not Detect) ng/mL Urine Methadone Screen (Not Detect) ng/mL Urine Fentanyl Screen (Not Detect) Acetaminophen (<30) mcg/mL Ur Barbiturates Screen (Not Detect) Ur Phencyclidine Scrn (Not Detect) Ur Amphetamines Screen (Not Detect) U Benzodiazepines Scrn (Not Detect) Urine Cocaine Screen (Not Detect) U Marijuana (THC) Screen (Not Detect) Ethyl Alcohol mg/dL 01/19/25 01/19/25 01/19/25 Range/Units 12:57 12:57 12:57 WBC (4.8-10.8) X10*3/uL RBC (4.20-5.50) X10*6/uL Hgb (12.0-16.0) g/dl Hct (37.0-47.0) % MCV (80.0-98.0) fL MCH (27.0-33.0) pg MCHC (31.0-35.0) g/dl RDW (11.0-16.0) % Plt Count (160-400) X10*3/uL MPV (9.4-12.3) fL Immature Gran % (Auto) (0.0-0.4) % Neut % (Auto) (45-73) % Lymph % (Auto) (20-40) % [place] % (Auto) (2-11) % Eos % (Auto) (0-4) % Baso % (Auto) (0-2) % Lymph # (Auto) 1.6 (1.2-4.9) X10*3/uL [place] # (Auto) 0.3 0.4 (0.1-1.2) X10*3/uL Eos # (Auto) 0.1 0.1 (0.0-0.4) X10*3/uL Baso # (Auto) 0.0 (0.0-0.2) X10*3/uL Abs Immat Gran (auto) (0.00-0.03) X10*3/uL Absolute Neuts (auto) (2.0-8.3) x10*3/uL Absolute Nucleated RBC (0.0-0.012) X10*3/uL Nucleated RBC % (auto) (0.0-0.2) /100WBC Sodium (135-145) mmol/L Potassium (3.3-5.1) mmol/L Chloride (96-108) mmol/L Carbon Dioxide (22-29) mmol/L Anion Gap (12-20) BUN (9-16) mg/dL Creatinine (0.5-1.4) mg/dL Estim Creat Clear Calc Estimated GFR Random Glucose (60-115) mg/dL Calcium (8.4-10.2) mg/dL Total Bilirubin (0.0-1.0) mg/dL AST (5-31) U/L ALT (0-31) U/L Alkaline Phosphatase (39-117) U/L Total Protein (6.5-8.0) g/dL Albumin (3.5-5.0) g/dL Vitamin B12 (200-900) pg/mL Folate (> or = 4.0) ng/mL TSH (0.32-4.0) uIU/mL Urine Color Urine Appearance Urine pH (5.0-9.0) Ur Specific [place] (1.005-1.025) Urine Protein (Neg-Trace) mg/dL Urine Glucose (UA) (Negative) mg/dL Urine Ketones (Negative) mg/dL Urine Blood (Negative) Urine Nitrite (Negative) Ur Leukocyte Esterase (Negative) Salicylates (15-30) mg/dL Urine Opiates Screen (Not Detect) Ur Buprenorphine Scrn (Not Detect) ng/mL Ur Oxycodone Screen (Not Detect) ng/mL Urine Methadone Screen (Not Detect) ng/mL Urine Fentanyl Screen (Not Detect) Acetaminophen (<30) mcg/mL Ur Barbiturates Screen (Not Detect) Ur Phencyclidine Scrn (Not Detect) Ur Amphetamines Screen (Not Detect) U Benzodiazepines Scrn (Not Detect) Urine Cocaine Screen (Not Detect) U Marijuana (THC) Screen (Not Detect) Ethyl Alcohol mg/dL 01/19/25 01/19/25 01/19/25 Range/Units 12:57 12:57 12:57 WBC (4.8-10.8) X10*3/uL RBC (4.20-5.50) X10*6/uL Hgb (12.0-16.0) g/dl Hct (37.0-47.0) % MCV (80.0-98.0) fL MCH (27.0-33.0) pg MCHC (31.0-35.0) g/dl RDW (11.0-16.0) % Plt Count (160-400) X10*3/uL MPV (9.4-12.3) fL Immature Gran % (Auto) (0.0-0.4) % Neut % (Auto) (45-73) % Lymph % (Auto) (20-40) % [place] % (Auto) (2-11) % Eos % (Auto) (0-4) % Baso % (Auto) (0-2) % Lymph # (Auto) (1.2-4.9) X10*3/uL [place] # (Auto) (0.1-1.2) X10*3/uL Eos # (Auto) (0.0-0.4) X10*3/uL Baso # (Auto) 0.0 (0.0-0.2) X10*3/uL Abs Immat Gran (auto) 0.01 0.01 (0.00-0.03) X10*3/uL Absolute Neuts (auto) 3.1 2.9 (2.0-8.3) x10*3/uL Absolute Nucleated RBC 0.000 (0.0-0.012) X10*3/uL Nucleated RBC % (auto) (0.0-0.2) /100WBC Sodium (135-145) mmol/L Potassium (3.3-5.1) mmol/L Chloride (96-108) mmol/L Carbon Dioxide (22-29) mmol/L Anion Gap (12-20) BUN (9-16) mg/dL Creatinine (0.5-1.4) mg/dL Estim Creat Clear Calc Estimated GFR Random Glucose (60-115) mg/dL Calcium (8.4-10.2) mg/dL Total Bilirubin (0.0-1.0) mg/dL AST (5-31) U/L ALT (0-31) U/L Alkaline Phosphatase (39-117) U/L Total Protein (6.5-8.0) g/dL Albumin (3.5-5.0) g/dL Vitamin B12 (200-900) pg/mL Folate (> or = 4.0) ng/mL TSH (0.32-4.0) uIU/mL Urine Color Urine Appearance Urine pH (5.0-9.0) Ur Specific [place] (1.005-1.025) Urine Protein (Neg-Trace) mg/dL Urine Glucose (UA) (Negative) mg/dL Urine Ketones (Negative) mg/dL Urine Blood (Negative) Urine Nitrite (Negative) Ur Leukocyte Esterase (Negative) Salicylates (15-30) mg/dL Urine Opiates Screen (Not Detect) Ur Buprenorphine Scrn (Not Detect) ng/mL Ur Oxycodone Screen (Not Detect) ng/mL Urine Methadone Screen (Not Detect) ng/mL Urine Fentanyl Screen (Not Detect) Acetaminophen (<30) mcg/mL Ur Barbiturates Screen (Not Detect) Ur Phencyclidine Scrn (Not Detect) Ur Amphetamines Screen (Not Detect) U Benzodiazepines Scrn (Not Detect) Urine Cocaine Screen (Not Detect) U Marijuana (THC) Screen (Not Detect) Ethyl Alcohol mg/dL 01/19/25 01/19/25 01/19/25 Range/Units 12:57 12:57 12:57 WBC (4.8-10.8) X10*3/uL RBC (4.20-5.50) X10*6/uL Hgb (12.0-16.0) g/dl Hct (37.0-47.0) % MCV (80.0-98.0) fL MCH (27.0-33.0) pg MCHC (31.0-35.0) g/dl RDW (11.0-16.0) % Plt Count (160-400) X10*3/uL MPV (9.4-12.3) fL Immature Gran % (Auto) (0.0-0.4) % Neut % (Auto) (45-73) % Lymph % (Auto) (20-40) % [place] % (Auto) (2-11) % Eos % (Auto) (0-4) % Baso % (Auto) (0-2) % Lymph # (Auto) (1.2-4.9) X10*3/uL [place] # (Auto) (0.1-1.2) X10*3/uL Eos # (Auto) (0.0-0.4) X10*3/uL Baso # (Auto) (0.0-0.2) X10*3/uL Abs Immat Gran (auto) (0.00-0.03) X10*3/uL Absolute Neuts (auto) (2.0-8.3) x10*3/uL Absolute Nucleated RBC 0.000 (0.0-0.012) X10*3/uL Nucleated RBC % (auto) 0.0 0.0 (0.0-0.2) /100WBC Sodium 142 142 (135-145) mmol/L Potassium 3.8 (3.3-5.1) mmol/L Chloride (96-108) mmol/L Carbon Dioxide (22-29) mmol/L Anion Gap (12-20) BUN (9-16) mg/dL Creatinine (0.5-1.4) mg/dL Estim Creat Clear Calc Estimated GFR Random Glucose (60-115) mg/dL Calcium (8.4-10.2) mg/dL Total Bilirubin (0.0-1.0) mg/dL AST (5-31) U/L ALT (0-31) U/L Alkaline Phosphatase (39-117) U/L Total Protein (6.5-8.0) g/dL Albumin (3.5-5.0) g/dL Vitamin B12 (200-900) pg/mL Folate (> or = 4.0) ng/mL TSH (0.32-4.0) uIU/mL Urine Color Urine Appearance Urine pH (5.0-9.0) Ur Specific [place] (1.005-1.025) Urine Protein (Neg-Trace) mg/dL Urine Glucose (UA) (Negative) mg/dL Urine Ketones (Negative) mg/dL Urine Blood (Negative) Urine Nitrite (Negative) Ur Leukocyte Esterase (Negative) Salicylates (15-30) mg/dL Urine Opiates Screen (Not Detect) Ur Buprenorphine Scrn (Not Detect) ng/mL Ur Oxycodone Screen (Not Detect) ng/mL Urine Methadone Screen (Not Detect) ng/mL Urine Fentanyl Screen (Not Detect) Acetaminophen (<30) mcg/mL Ur Barbiturates Screen (Not Detect) Ur Phencyclidine Scrn (Not Detect) Ur Amphetamines Screen (Not Detect) U Benzodiazepines Scrn (Not Detect) Urine Cocaine Screen (Not Detect) U Marijuana (THC) Screen (Not Detect) Ethyl Alcohol mg/dL 01/19/25 01/19/25 01/19/25 Range/Units 12:57 12:57 12:57 WBC (4.8-10.8) X10*3/uL RBC (4.20-5.50) X10*6/uL Hgb (12.0-16.0) g/dl Hct (37.0-47.0) % MCV (80.0-98.0) fL MCH (27.0-33.0) pg MCHC (31.0-35.0) g/dl RDW (11.0-16.0) % Plt Count (160-400) X10*3/uL MPV (9.4-12.3) fL Immature Gran % (Auto) (0.0-0.4) % Neut % (Auto) (45-73) % Lymph % (Auto) (20-40) % [place] % (Auto) (2-11) % Eos % (Auto) (0-4) % Baso % (Auto) (0-2) % Lymph # (Auto) (1.2-4.9) X10*3/uL [place] # (Auto) (0.1-1.2) X10*3/uL Eos # (Auto) (0.0-0.4) X10*3/uL Baso # (Auto) (0.0-0.2) X10*3/uL Abs Immat Gran (auto) (0.00-0.03) X10*3/uL Absolute Neuts (auto) (2.0-8.3) x10*3/uL Absolute Nucleated RBC (0.0-0.012) X10*3/uL Nucleated RBC % (auto) (0.0-0.2) /100WBC Sodium (135-145) mmol/L Potassium 3.8 (3.3-5.1) mmol/L Chloride 105 105 (96-108) mmol/L Carbon Dioxide 29 29 (22-29) mmol/L Anion Gap 12 (12-20) BUN (9-16) mg/dL Creatinine (0.5-1.4) mg/dL Estim Creat Clear Calc Estimated GFR Random Glucose (60-115) mg/dL Calcium (8.4-10.2) mg/dL Total Bilirubin (0.0-1.0) mg/dL AST (5-31) U/L ALT (0-31) U/L Alkaline Phosphatase (39-117) U/L Total Protein (6.5-8.0) g/dL Albumin (3.5-5.0) g/dL Vitamin B12 (200-900) pg/mL Folate (> or = 4.0) ng/mL TSH (0.32-4.0) uIU/mL Urine Color Urine Appearance Urine pH (5.0-9.0) Ur Specific [place] (1.005-1.025) Urine Protein (Neg-Trace) mg/dL Urine Glucose (UA) (Negative) mg/dL Urine Ketones (Negative) mg/dL Urine Blood (Negative) Urine Nitrite (Negative) Ur Leukocyte Esterase (Negative) Salicylates (15-30) mg/dL Urine Opiates Screen (Not Detect) Ur Buprenorphine Scrn (Not Detect) ng/mL Ur Oxycodone Screen (Not Detect) ng/mL Urine Methadone Screen (Not Detect) ng/mL Urine Fentanyl Screen (Not Detect) Acetaminophen (<30) mcg/mL Ur Barbiturates Screen (Not Detect) Ur Phencyclidine Scrn (Not Detect) Ur Amphetamines Screen (Not Detect) U Benzodiazepines Scrn (Not Detect) Urine Cocaine Screen (Not Detect) U Marijuana (THC) Screen (Not Detect) Ethyl Alcohol mg/dL 01/19/25 01/19/25 01/19/25 Range/Units 12:57 12:57 12:57 WBC (4.8-10.8) X10*3/uL RBC (4.20-5.50) X10*6/uL Hgb (12.0-16.0) g/dl Hct (37.0-47.0) % MCV (80.0-98.0) fL MCH (27.0-33.0) pg MCHC (31.0-35.0) g/dl RDW (11.0-16.0) % Plt Count (160-400) X10*3/uL MPV (9.4-12.3) fL Immature Gran % (Auto) (0.0-0.4) % Neut % (Auto) (45-73) % Lymph % (Auto) (20-40) % [place] % (Auto) (2-11) % Eos % (Auto) (0-4) % Baso % (Auto) (0-2) % Lymph # (Auto) (1.2-4.9) X10*3/uL [place] # (Auto) (0.1-1.2) X10*3/uL Eos # (Auto) (0.0-0.4) X10*3/uL Baso # (Auto) (0.0-0.2) X10*3/uL Abs Immat Gran (auto) (0.00-0.03) X10*3/uL Absolute Neuts (auto) (2.0-8.3) x10*3/uL Absolute Nucleated RBC (0.0-0.012) X10*3/uL Nucleated RBC % (auto) (0.0-0.2) /100WBC Sodium (135-145) mmol/L Potassium (3.3-5.1) mmol/L Chloride (96-108) mmol/L Carbon Dioxide (22-29) mmol/L Anion Gap 12 (12-20) BUN 17 H 17 H (9-16) mg/dL Creatinine 0.84 0.89 (0.5-1.4) mg/dL Estim Creat Clear Calc 62.0 Estimated GFR Random Glucose (60-115) mg/dL Calcium (8.4-10.2) mg/dL Total Bilirubin (0.0-1.0) mg/dL AST (5-31) U/L ALT (0-31) U/L Alkaline Phosphatase (39-117) U/L Total Protein (6.5-8.0) g/dL Albumin (3.5-5.0) g/dL Vitamin B12 (200-900) pg/mL Folate (> or = 4.0) ng/mL TSH (0.32-4.0) uIU/mL Urine Color Urine Appearance Urine pH (5.0-9.0) Ur Specific [place] (1.005-1.025) Urine Protein (Neg-Trace) mg/dL Urine Glucose (UA) (Negative) mg/dL Urine Ketones (Negative) mg/dL Urine Blood (Negative) Urine Nitrite (Negative) Ur Leukocyte Esterase (Negative) Salicylates (15-30) mg/dL Urine Opiates Screen (Not Detect) Ur Buprenorphine Scrn (Not Detect) ng/mL Ur Oxycodone Screen (Not Detect) ng/mL Urine Methadone Screen (Not Detect) ng/mL Urine Fentanyl Screen (Not Detect) Acetaminophen (<30) mcg/mL Ur Barbiturates Screen (Not Detect) Ur Phencyclidine Scrn (Not Detect) Ur Amphetamines Screen (Not Detect) U Benzodiazepines Scrn (Not Detect) Urine Cocaine Screen (Not Detect) U Marijuana (THC) Screen (Not Detect) Ethyl Alcohol mg/dL 01/19/25 01/19/25 01/19/25 Range/Units 12:57 12:57 12:57 WBC (4.8-10.8) X10*3/uL RBC (4.20-5.50) X10*6/uL Hgb (12.0-16.0) g/dl Hct (37.0-47.0) % MCV (80.0-98.0) fL MCH (27.0-33.0) pg MCHC (31.0-35.0) g/dl RDW (11.0-16.0) % Plt Count (160-400) X10*3/uL MPV (9.4-12.3) fL Immature Gran % (Auto) (0.0-0.4) % Neut % (Auto) (45-73) % Lymph % (Auto) (20-40) % [place] % (Auto) (2-11) % Eos % (Auto) (0-4) % Baso % (Auto) (0-2) % Lymph # (Auto) (1.2-4.9) X10*3/uL [place] # (Auto) (0.1-1.2) X10*3/uL Eos # (Auto) (0.0-0.4) X10*3/uL Baso # (Auto) (0.0-0.2) X10*3/uL Abs Immat Gran (auto) (0.00-0.03) X10*3/uL Absolute Neuts (auto) (2.0-8.3) x10*3/uL Absolute Nucleated RBC (0.0-0.012) X10*3/uL Nucleated RBC % (auto) (0.0-0.2) /100WBC Sodium (135-145) mmol/L Potassium (3.3-5.1) mmol/L Chloride (96-108) mmol/L Carbon Dioxide (22-29) mmol/L Anion Gap (12-20) BUN (9-16) mg/dL Creatinine (0.5-1.4) mg/dL Estim Creat Clear Calc 58.5 Estimated GFR > 60 > 60 Random Glucose 127 H 124 H (60-115) mg/dL Calcium 9.7 (8.4-10.2) mg/dL Total Bilirubin (0.0-1.0) mg/dL AST (5-31) U/L ALT (0-31) U/L Alkaline Phosphatase (39-117) U/L Total Protein (6.5-8.0) g/dL Albumin (3.5-5.0) g/dL Vitamin B12 (200-900) pg/mL Folate (> or = 4.0) ng/mL TSH (0.32-4.0) uIU/mL Urine Color Urine Appearance Urine pH (5.0-9.0) Ur Specific [place] (1.005-1.025) Urine Protein (Neg-Trace) mg/dL Urine Glucose (UA) (Negative) mg/dL Urine Ketones (Negative) mg/dL Urine Blood (Negative) Urine Nitrite (Negative) Ur Leukocyte Esterase (Negative) Salicylates (15-30) mg/dL Urine Opiates Screen (Not Detect) Ur Buprenorphine Scrn (Not Detect) ng/mL Ur Oxycodone Screen (Not Detect) ng/mL Urine Methadone Screen (Not Detect) ng/mL Urine Fentanyl Screen (Not Detect) Acetaminophen (<30) mcg/mL Ur Barbiturates Screen (Not Detect) Ur Phencyclidine Scrn (Not Detect) Ur Amphetamines Screen (Not Detect) U Benzodiazepines Scrn (Not Detect) Urine Cocaine Screen (Not Detect) U Marijuana (THC) Screen (Not Detect) Ethyl Alcohol mg/dL 01/19/25 01/19/25 01/19/25 Range/Units 12:57 12:57 12:57 WBC (4.8-10.8) X10*3/uL RBC (4.20-5.50) X10*6/uL Hgb (12.0-16.0) g/dl Hct (37.0-47.0) % MCV (80.0-98.0) fL MCH (27.0-33.0) pg MCHC (31.0-35.0) g/dl RDW (11.0-16.0) % Plt Count (160-400) X10*3/uL MPV (9.4-12.3) fL Immature Gran % (Auto) (0.0-0.4) % Neut % (Auto) (45-73) % Lymph % (Auto) (20-40) % [place] % (Auto) (2-11) % Eos % (Auto) (0-4) % Baso % (Auto) (0-2) % Lymph # (Auto) (1.2-4.9) X10*3/uL [place] # (Auto) (0.1-1.2) X10*3/uL Eos # (Auto) (0.0-0.4) X10*3/uL Baso # (Auto) (0.0-0.2) X10*3/uL Abs Immat Gran (auto) (0.00-0.03) X10*3/uL Absolute Neuts (auto) (2.0-8.3) x10*3/uL Absolute Nucleated RBC (0.0-0.012) X10*3/uL Nucleated RBC % (auto) (0.0-0.2) /100WBC Sodium (135-145) mmol/L Potassium (3.3-5.1) mmol/L Chloride (96-108) mmol/L Carbon Dioxide (22-29) mmol/L Anion Gap (12-20) BUN (9-16) mg/dL Creatinine (0.5-1.4) mg/dL Estim Creat Clear Calc Estimated GFR Random Glucose (60-115) mg/dL Calcium 9.7 (8.4-10.2) mg/dL Total Bilirubin 0.3 0.3 (0.0-1.0) mg/dL AST 32 H 32 H (5-31) U/L ALT 47 H (0-31) U/L Alkaline Phosphatase (39-117) U/L Total Protein (6.5-8.0) g/dL Albumin (3.5-5.0) g/dL Vitamin B12 (200-900) pg/mL Folate (> or = 4.0) ng/mL TSH (0.32-4.0) uIU/mL Urine Color Urine Appearance Urine pH (5.0-9.0) Ur Specific [place] (1.005-1.025) Urine Protein (Neg-Trace) mg/dL Urine Glucose (UA) (Negative) mg/dL Urine Ketones (Negative) mg/dL Urine Blood (Negative) Urine Nitrite (Negative) Ur Leukocyte Esterase (Negative) Salicylates (15-30) mg/dL Urine Opiates Screen (Not Detect) Ur Buprenorphine Scrn (Not Detect) ng/mL Ur Oxycodone Screen (Not Detect) ng/mL Urine Methadone Screen (Not Detect) ng/mL Urine Fentanyl Screen (Not Detect) Acetaminophen (<30) mcg/mL Ur Barbiturates Screen (Not Detect) Ur Phencyclidine Scrn (Not Detect) Ur Amphetamines Screen (Not Detect) U Benzodiazepines Scrn (Not Detect) Urine Cocaine Screen (Not Detect) U Marijuana (THC) Screen (Not Detect) Ethyl Alcohol mg/dL 01/19/25 01/19/25 01/19/25 Range/Units 12:57 12:57 12:57 WBC (4.8-10.8) X10*3/uL RBC (4.20-5.50) X10*6/uL Hgb (12.0-16.0) g/dl Hct (37.0-47.0) % MCV (80.0-98.0) fL MCH (27.0-33.0) pg MCHC (31.0-35.0) g/dl RDW (11.0-16.0) % Plt Count (160-400) X10*3/uL MPV (9.4-12.3) fL Immature Gran % (Auto) (0.0-0.4) % Neut % (Auto) (45-73) % Lymph % (Auto) (20-40) % [place] % (Auto) (2-11) % Eos % (Auto) (0-4) % Baso % (Auto) (0-2) % Lymph # (Auto) (1.2-4.9) X10*3/uL [place] # (Auto) (0.1-1.2) X10*3/uL Eos # (Auto) (0.0-0.4) X10*3/uL Baso # (Auto) (0.0-0.2) X10*3/uL Abs Immat Gran (auto) (0.00-0.03) X10*3/uL Absolute Neuts (auto) (2.0-8.3) x10*3/uL Absolute Nucleated RBC (0.0-0.012) X10*3/uL Nucleated RBC % (auto) (0.0-0.2) /100WBC Sodium (135-145) mmol/L Potassium (3.3-5.1) mmol/L Chloride (96-108) mmol/L Carbon Dioxide (22-29) mmol/L Anion Gap (12-20) BUN (9-16) mg/dL Creatinine (0.5-1.4) mg/dL Estim Creat Clear Calc Estimated GFR Random Glucose (60-115) mg/dL Calcium (8.4-10.2) mg/dL Total Bilirubin (0.0-1.0) mg/dL AST (5-31) U/L ALT 47 H (0-31) U/L Alkaline Phosphatase 66 68 (39-117) U/L Total Protein 7.5 7.6 (6.5-8.0) g/dL Albumin 4.1 (3.5-5.0) g/dL Vitamin B12 (200-900) pg/mL Folate (> or = 4.0) ng/mL TSH (0.32-4.0) uIU/mL Urine Color Urine Appearance Urine pH (5.0-9.0) Ur Specific [place] (1.005-1.025) Urine Protein (Neg-Trace) mg/dL Urine Glucose (UA) (Negative) mg/dL Urine Ketones (Negative) mg/dL Urine Blood (Negative) Urine Nitrite (Negative) Ur Leukocyte Esterase (Negative) Salicylates (15-30) mg/dL Urine Opiates Screen (Not Detect) Ur Buprenorphine Scrn (Not Detect) ng/mL Ur Oxycodone Screen (Not Detect) ng/mL Urine Methadone Screen (Not Detect) ng/mL Urine Fentanyl Screen (Not Detect) Acetaminophen (<30) mcg/mL Ur Barbiturates Screen (Not Detect) Ur Phencyclidine Scrn (Not Detect) Ur Amphetamines Screen (Not Detect) U Benzodiazepines Scrn (Not Detect) Urine Cocaine Screen (Not Detect) U Marijuana (THC) Screen (Not Detect) Ethyl Alcohol mg/dL 01/19/25 Range/Units 12:57 WBC (4.8-10.8) X10*3/uL RBC (4.20-5.50) X10*6/uL Hgb (12.0-16.0) g/dl Hct (37.0-47.0) % MCV (80.0-98.0) fL MCH (27.0-33.0) pg MCHC (31.0-35.0) g/dl RDW (11.0-16.0) % Plt Count (160-400) X10*3/uL MPV (9.4-12.3) fL Immature Gran % (Auto) (0.0-0.4) % Neut % (Auto) (45-73) % Lymph % (Auto) (20-40) % [place] % (Auto) (2-11) % Eos % (Auto) (0-4) % Baso % (Auto) (0-2) % Lymph # (Auto) (1.2-4.9) X10*3/uL [place] # (Auto) (0.1-1.2) X10*3/uL Eos # (Auto) (0.0-0.4) X10*3/uL Baso # (Auto) (0.0-0.2) X10*3/uL Abs Immat Gran (auto) (0.00-0.03) X10*3/uL Absolute Neuts (auto) (2.0-8.3) x10*3/uL Absolute Nucleated RBC (0.0-0.012) X10*3/uL Nucleated RBC % (auto) (0.0-0.2) /100WBC Sodium (135-145) mmol/L Potassium (3.3-5.1) mmol/L Chloride (96-108) mmol/L Carbon Dioxide (22-29) mmol/L Anion Gap (12-20) BUN (9-16) mg/dL Creatinine (0.5-1.4) mg/dL Estim Creat Clear Calc Estimated GFR Random Glucose (60-115) mg/dL Calcium (8.4-10.2) mg/dL Total Bilirubin (0.0-1.0) mg/dL AST (5-31) U/L ALT (0-31) U/L Alkaline Phosphatase (39-117) U/L Total Protein (6.5-8.0) g/dL Albumin 4.1 (3.5-5.0) g/dL Vitamin B12 948 H (200-900) pg/mL Folate 10.2 (> or = 4.0) ng/mL TSH 1.54 (0.32-4.0) uIU/mL Urine Color Urine Appearance Urine pH (5.0-9.0) Ur Specific [place] (1.005-1.025) Urine Protein (Neg-Trace) mg/dL Urine Glucose (UA) (Negative) mg/dL Urine Ketones (Negative) mg/dL Urine Blood (Negative) Urine Nitrite (Negative) Ur Leukocyte Esterase (Negative) Salicylates < 5.0 L (15-30) mg/dL Urine Opiates Screen (Not Detect) Ur Buprenorphine Scrn (Not Detect) ng/mL Ur Oxycodone Screen (Not Detect) ng/mL Urine Methadone Screen (Not Detect) ng/mL Urine Fentanyl Screen (Not Detect) Acetaminophen < 3 (<30) mcg/mL Ur Barbiturates Screen (Not Detect) Ur Phencyclidine Scrn (Not Detect) Ur Amphetamines Screen (Not Detect) U Benzodiazepines Scrn (Not Detect) Urine Cocaine Screen (Not Detect) U Marijuana (THC) Screen (Not Detect) Ethyl Alcohol < 10 mg/dL Independent Historian Clinical information obtained from an independent historian. History obtained from or confirmed by: EMS (EMS provided additional history) and Other (Patient's daughter provided additional history and confirmed the history provided by the patient. ) Critical Care Time Critical Care Time Critical Care Time: Yes Total Critical Care Time: 31 Attestation: I spent 31 minutes of Critical Care Time with this patient. This does not include time spent on separately reported billable procedures. Discharge Plan Discharge Clinical Impression: Paranoia Patient Disposition: Admitted As Inpatient Interventions: Admission Worksheet (ED) Last Done: 01/20/25 13:57 Discharge Date/Time: 01/20/25 13:58
--- NOTE | 2025-01-16 19:39 | PC.NURSE ---
Pt refusing labs and ekg. Pt states dont touch me Charge notified and aware Plan of care ongoing.
--- NOTE | 2025-01-16 19:51 | PC.NURSE ---
Provider notified and aware pt refusing labs and ekg. Provider to come and speak with pt Plan of care ongoing.
--- NOTE | 2025-01-16 19:53 | PC.NURSE ---
Pt not answering any questions Pt states Why am I here. Dont touch me Plan of care ongoing.
--- NOTE | 2025-01-16 20:07 | PC.NURSE ---
Provider with pt. Pt not answering questions for provider or this RN. Pt states Why am I still sitting here. I'm supposed to be at home. Plan of care ongoing.
--- NOTE | 2025-01-16 20:27 | PC.NURSE ---
Per Katharina at [facility] pts contact information is Daughter Maricruz Sharif @ [phone] and child Anne Marie Sharif @ [phone]. Provider notified and aware. Plan of care ongoing.
--- NOTE | 2025-01-16 21:06 | PC.NURSE ---
Pt states I cant find my hearing aid Pts hearing aid on the bed where pt placed it. Pt out of room attempting to open locked doors Pt states I need to use the bathroom Staff attempting to show pt where the bathroom is located. Pt went back into room and now sitting on bed. Pt states I need to figure out whats going on Plan of care ongoing.
--- NOTE | 2025-01-16 21:16 | PC.NURSE ---
Pt states I need to use the bathroom declines to be shown where the bathroom is This RN attempted to show pt to the restroom. Pt states I'm on the phone. Im fine Plan of care ongoing.
--- NOTE | 2025-01-16 21:19 | PC.NURSE ---
Pts daughter Maricruz can be reached @ [phone]. Plan of care ongoing.
--- NOTE | 2025-01-16 21:23 | PC.NURSE ---
Pt states I need to use the bathroom Staff able to direct pt to the bathroom and attempting to get a urine sample from pt. Plan of care ongoing.
[2025-01-16 21:48] LABS: Appearance Urine Clear; Glucose Urine UA Negative (Negative); PH 6.0 (5.0-9.0); Specific Gravity - Urine 1.015 (1.005-1.025)
[2025-01-16 21:57] LABS: Cannabinoid Screen Urine Not Detected (Not Detect)
--- NOTE | 2025-01-17 03:29 | PC.NURSE ---
Pt requested and given food and drink. Plan of care ongoing.
--- NOTE | 2025-01-17 05:42 | MHC.CARE ---
Call to daughter Maricruz at [phone]. Collateral unavailable. VM left requesting call back.
--- NOTE | 2025-01-17 07:00 | MHC.EDTECH ---
This tech entered patient room with breakfast tray. Patient head turned away from this tech, not responding to direct verbal conversation, loudly self dialoguing. Breakfast tray left on desk.
--- NOTE | 2025-01-17 07:15 | MHC.EDTECH ---
This tech entered room while patient was self dialoguing. Reintroduced myself and asked patient if I could check her blood pressure and perform EKG. After two attempts at speaking with patient, patient did stop self dialoguing, but did not acknowledge this tech, kept head turned and eyes averted. RN aware of attempt. This tech will try again
[2025-01-17 07:29] VITALS: BP 189/79; PULSE 61; RESP 18; O2SAT 95
--- NOTE | 2025-01-17 07:35 | PC.NURSE ---
pt not engaging in conversation with this RN. She continues to refuse bloodwork and EKG. Pt enbgaging in conversation with self. She remains calm at this time. Pt is alert and arousable to voice.
--- NOTE | 2025-01-17 08:23 | MHC.CARE ---
0819 ? Called luis Alcantara ([phone]) in an attempt to secure collateral information.? There was no answer, a message was left requesting a return phone call. 08 ? Called luis Alcantara (alternate # [phone]) in an attempt to secure collateral information.? There was no answer, a message was left requesting a return phone call. 0822 ? Called Sukhdeep Kenney ([phone]) in an attempt to secure collateral information.? There was no answer, a message was left requesting a return phone call.
--- NOTE | 2025-01-17 08:29 | MHC.CARE ---
0827 ? Called Avelina Gutierrez ([phone]) in an attempt to secure collateral information.? There was no answer, a message was left requesting a return phone call.
--- NOTE | 2025-01-17 09:41 | P.CNPS_ITS ---
History of Present Illness Date of Service: 01/17/25 Chief Complaint: psych eval Reason for Consult: Paranoia Requesting physician: Lottie Aguilera Sources of Information: patient interviewed and chart reviewed Additional Sources of Information: Daughter, Maricruz JIMENEZ Narrative: 69 yo female to ER post DC from [facility] presenting with paranoia, psychosis, auditory perceptual alterations. Pt is a very poor historian, she is active in self-dialoguing upon meeting with tw, then continues to respond to internal stimuli during our brief interaction. Her crisis team clinician, Pankaj, reports no mental health history, hx of cocaine which she has not used in eight years, hx of meningitis in 2021, and cochlear implants. Pt able to live independently in [place] until about eight months ago when sx exacerbated. Daughter Maricruz [phone] reports several trips to [facility] for eval, however pt was always sent home. Daughter reports pt has an increase in sx since DC from [facility] and the family is very concerned. Pt was treated with Olanzapine at [facility]. Call to pt's pharmacy [facility], however, they are closed until Sunday [phone]. Med rec shows possibly pt's regime includes Incruse Elipta, Albuterol, Atorvastatin, Chlorthalizone, Keppra, Nifedipine, however, family is unsure. They believe she is also on Gabapentin. Pt given trial dose of Olanzapine 5 mg. Team reported good, yet brief effect. 5 mg Olanzapine reordered, with prn and a 10 mg standing dose at HS. Team will begin bed search for in pt care. Call to [facility] to obtain collateral with no return call at this time, Past Psychiatric History: IP: [facility]-recent DC OP: Not known Medical Evaluation Reviewed: Yes Review of Systems Review of Systems Yes Unobtainable due to mental status PMFSH Family History: schizophrenia, addiction son suicided by police (team reports to avoid incarceration) Social History: Pt with acute psychotic sx- she is unable to provide this today Substance History: cocaine- last use ~8 years ago Trauma History: of her child Diagnostics Vital Signs (24Hr): Vital Signs - 24 hr 01/16/25 19:13 01/17/25 07:29 Temperature 97.8 F Pulse Rate 65 61 Respiratory Rate 14 18 Blood Pressure 167/63 H 189/79 H Pulse Oximetry 95 95 Oxygen Delivery Method Room Air Room Air BMI result Body Mass Index 28.3 Labs Labs: Laboratory Results - last 48 hr 01/16/25 21:32 Urine Color Yellow Urine Appearance Clear Urine pH 6.0 Ur Specific [place] 1.015 Urine Protein Negative Urine Glucose (UA) Negative Urine Ketones Negative Urine Blood Negative Urine Nitrite Negative Ur Leukocyte Esterase Negative Urine Opiates Screen Not Detected Ur Buprenorphine Scrn Not Detected Ur Oxycodone Screen Not Detected Urine Methadone Screen Not Detected Urine Fentanyl Screen Not Detected Ur Barbiturates Screen Not Detected Ur Phencyclidine Scrn Not Detected Ur Amphetamines Screen Not Detected U Benzodiazepines Scrn Not Detected Urine Cocaine Screen Not Detected U Marijuana (THC) Screen Not Detected Mental Status Exam Mental Status Exam Narrative: Acute psychosis, active respsonse to internal stimuli Patient Appearance: Appropriate Patient Orientation: Person Level of Consciousness: Alert Patient Behavior: Talkative Mood Description: Withdrawn and Labile Affect Description: Withdrawn and Labile Patient Cognition Impaired: Yes Ability to Follow Directions: Poor Speech Pattern: Spontaneous Speech Memory Description: Remote Impaired Hallucinations: Auditory Delusions: Paranoid Ideation and Present Thought Process: Confusion Thought Content: positive for Tillar, positive for Circumstantial and positive for Perseveration Judgement: Poor Medications Allergies Allergies Allergy/AdvReac Type Severity Reaction Status Date / Time latex Allergy Unknown Verified 01/16/25 20:11 peanut Allergy Unknown Verified 01/16/25 20:11 Penicillins Allergy Unknown Verified 01/16/25 20:11 Assessment & Plan Assessment & Plan (1) Psychosis: Status: Acute Code(s): F29 - Unspecified psychosis not due to a substance or known physiological condition Plan Olanzapine 5 mg x 1 dose- tolerated, yet short lived, and repeat ordered Olanzapine 10 mg hs-to begin a scheduled dosage Olanzapine prn Team will work with a bed search Continue to gather history as pt clears Support family Will follow 01/18 Total time managing care of this patient today ____ minutes. Informed Consent: does not understand
--- NOTE | 2025-01-17 10:26 | MHC.CARE ---
Pt will be an inpatient [facility] psych bedsearch
--- NOTE | 2025-01-17 15:25 | PC.NURSE ---
pt refusing vital signs/ekg/bloodwork. Pt alert, speaking clearly in full sentences, arousable to voice, respirations even and regular. Pt in NAD at this time.
[2025-01-17 15:27] VITALS: RESP 20
--- NOTE | 2025-01-17 20:10 | PC.NURSE ---
Pt came out of room and was standing at Pt refused to speak to this RN. Attempted to give patient night medication and she looked away and would not speak with me. Pt not answering any questions. Pt sitting quietly on the bed in room.
--- NOTE | 2025-01-17 20:57 | PC.NURSE ---
Pt sitting in chair in hallway stating I cannot go in that room right now, there is someone in there . Tech and nurse went into room and assured patient that no one is in there. Pt continues to states she cannot go in.
[2025-01-17 20:59] VITALS: BP 197/72; PULSE 56; RESP 16; TEMP 36.1; O2SAT 99
--- NOTE | 2025-01-17 23:43 | MHC.EDTECH ---
PT ALLOWED THIS TECH TO DO VS. UNABLE TO COLLECT BLOOD SAMPLE PT CONTINUES TO REFUSE. EKG IS ALSO BEING REFUSED. RN AWARE. PROVIDER AWARE.
--- NOTE | 2025-01-18 02:29 | PC.NURSE ---
Unable to complete [place] Scale as patient will not answer questions and continues to take about 3 invisible men in her room.
--- NOTE | 2025-01-18 05:41 | PM.PSYCN ---
History of Present Illness Chief Complaint: psych eval HPI Past Psychiatric History: IP: [facility]-recent DC OP: Not known [facility] Family History: schizophrenia, addiction son suicided by police (team reports to avoid incarceration) Social History: Pt with acute psychotic sx- she is unable to provide this today Trauma History: of her child Diagnostics Vital Signs (24Hr): Vital Signs - 24 hr 01/17/25 07:29 01/17/25 15:27 01/17/25 20:59 Temperature Pulse Rate 61 56 Respiratory Rate 18 20 16 Blood Pressure 189/79 H 197/72 H Pulse Oximetry 95 99 Oxygen Delivery Method Room Air Room Air 01/17/25 20:59 Temperature 96.9 F Pulse Rate 56 Respiratory Rate 16 Blood Pressure 197/72 H Pulse Oximetry 99 Oxygen Delivery Method Room Air BMI result Body Mass Index 28.3 Labs Labs: Laboratory Results - last 48 hr 01/16/25 21:32 Urine Color Yellow Urine Appearance Clear Urine pH 6.0 Ur Specific [place] 1.015 Urine Protein Negative Urine Glucose (UA) Negative Urine Ketones Negative Urine Blood Negative Urine Nitrite Negative Ur Leukocyte Esterase Negative Urine Opiates Screen Not Detected Ur Buprenorphine Scrn Not Detected Ur Oxycodone Screen Not Detected Urine Methadone Screen Not Detected Urine Fentanyl Screen Not Detected Ur Barbiturates Screen Not Detected Ur Phencyclidine Scrn Not Detected Ur Amphetamines Screen Not Detected U Benzodiazepines Scrn Not Detected Urine Cocaine Screen Not Detected U Marijuana (THC) Screen Not Detected Medications Medications Current Medications Olanzapine (Olanzapine Odt 10 Mg Tab.Rapdis) 10 mg TRANSLINGU BEDTIME ALLY Last Admin: 01/18/25 00:03 Dose: Not Given Olanzapine (Olanzapine 5 Mg Tablet) 5 mg PO Q6H PRN PRN Reason: severe agitation Allergies Allergies Allergy/AdvReac Type Severity Reaction Status Date / Time latex Allergy Unknown Verified 01/16/25 20:11 peanut Allergy Unknown Verified 01/16/25 20:11 Penicillins Allergy Unknown Verified 01/16/25 20:11 Assessment & Plan Total time managing care of this patient today ____ minutes.
--- NOTE | 2025-01-18 07:09 | PC.NURSE ---
Assumed care of patient at 0645, patient appears to be in no apparent distress this am, calm and cooperative, cleaning her room, offering no complaints at this time. Continue plan of care for [facility]aryann bedsearch
--- NOTE | 2025-01-18 08:48 | PC.NURSE ---
pt continues to refuse labs
[2025-01-18 10:38] VITALS: RESP 16
--- NOTE | 2025-01-18 11:37 | PHA.MEDREC ---
Addendum entered by Lianna Castillo [facility] 01/18/25 12:14: Reviewed Original Note: Pharmacy Consult ? Medication Reconciliation Pharmacy has completed the medication reconciliation. Used claims to complete med rec. Per doctors note, family is unsure about her medications. Patients pharmacy is closed on the weekends. Called [facility] to confirm what patient was sent home with. They discharged her with levetiracetam 250 mg bid. Spoke with [facility] and they report it has not been picked up yet. Patient was on levetiracetam 500 mg bid at home per claims and was receiving this dose at [facility] as well. Confirmed with provider to keep med rec as patients home list. List below is what she was taking at [facility] per their staff: Tylenol 650 mg q4h prn pain or fever calcium carbonate chewable 500 mg q4h prn heartburn Hydroxyzine 50 mg caps q4h prn anxiety Ibuprofen 400 mg q8h prn pain Levetiracetam 500 mg q12h Olanzapine 5 mg ODT tabs - 1/2 tab at bedtime
[2025-01-18] MEDS: OLANZapine 10 MG VIAL IM (15:40)
--- NOTE | 2025-01-18 16:02 | PC.NURSE ---
Late entry: RESTRAINT Type of Restraint: Chemical Medication Administered: Zyprexa 10mg IM Left Vastus Lateralis Physical Hold Required: Yes Details: At approximately 1530, pt sat in chair in hallway and began screaming stop, help me!! . When attempting to speak with patient, she continued to scream. Pt would not allow staff to touch her. Pt began waking other patients up and upsetting pts settled in the milieu. Pt continued screaming despite constant attempts at redirection from staff. Security came to assist with de-escalation without success. Spoke with STANFORD Alvarenga over the phone, plan for IM Zyprexa. Security assisted in relocating patient to room for IM injection. Pt was placed in physical hold and received IM injection of Zyprexa in the left vastus lateralis. Pt was released from physical hold and is now sitting in room on bed. Continues to scream intermittently but appears much calmer
[2025-01-18 16:34] VITALS: RESP 18
--- NOTE | 2025-01-18 17:55 | PC.NURSE ---
pt again increasing in agitation, able to be verbally redirected at this time
--- NOTE | 2025-01-18 18:50 | PC.NURSE ---
Pt continued to escalate, testing exit doors, yelling at staff, disrupting the milieu. MD Abreu made aware, orders for IM injections entered. Pt held in physical hold again and IM injections given in bilateral deltoids. Pt now pacing around pod
[2025-01-18] MEDS: OLANZapine ODT 10 MG TAB.RAPDIS TRANSLINGU (22:11)
--- NOTE | 2025-01-18 22:12 | PC.NURSE ---
pt awake yelling in room, requesting water. pt given water and medicated per MAR
--- NOTE | 2025-01-19 05:51 | MHC.EDTECH ---
Patient asleep and had difficulty sleeping the previous night. Will attempt vitals when patient is awake.
[2025-01-19 05:52] VITALS: RESP 18
--- NOTE | 2025-01-19 11:02 | PC.NURSE ---
Received report from Afia CORRALES. Patient is yelling in her room, talking to herself. Continues to refuse labs & EKG. Care ongoing by this RN.
--- NOTE | 2025-01-19 11:16 | PC.NURSE ---
Patient ambulated to bathroom and back to room with steady gait. Continues to talk out loud, responding to internal stimuli. Given new pair of underwear & socks as requested.
--- NOTE | 2025-01-19 12:25 | PC.NURSE ---
STANFORD Dimas to bedside speaking with patient at this time.
--- NOTE | 2025-01-19 12:51 | PC.NURSE ---
Patient is finally agreeable to get labs drawn. Repeatedly voicing concerns about being tranquilized again and asking to leave. Stated my daughter is gonna come pick me up and get me out of here. I've been held hostage against my will here . Agreed to lab draw, results pending. Pt has cochlear implant in place, right side. Dr. Cardoso & Judie,COMM[employer] NURSE SUPERVISOR aware of lab draw & compliance.
[2025-01-19 13:02] LABS: MANUAL DIFF FLAG NO
[2025-01-19 13:05] LABS: Hematocrit 41.2 % (37.0-47.0); Hematocrit 41.9 % (37.0-47.0); Hemoglobin 13.9 g/dl (12.0-16.0); Hemoglobin 14.1 g/dl (12.0-16.0); Imm Gran Abs Auto 0.01 X10*3/uL (0.00-0.03); Imm Gran Pct Auto 0.2 % (0.0-0.4); Lymphocytes Absolute Auto 1.6 X10*3/uL (1.2-4.9); Lymphocytes Absolute Auto 1.7 X10*3/uL (1.2-4.9); Mean Corpuscular HGB Conc 33.2 g/dl (31.0-35.0); Mean Corpuscular HGB Conc 34.2 g/dl (31.0-35.0); Mean Corpuscular Hemoglobin 31.3 pg (27.0-33.0); Mean Corpuscular Hemoglobin 31.8 pg (27.0-33.0); Mean Corpuscular Volume 92.8 fL (80.0-98.0); Mean Corpuscular Volume 94.4 fL (80.0-98.0); NRBC Abs Auto 0.000 X10*3/uL (0.0-0.012); NRBC Pct Auto 0.0 /100WBC (0.0-0.2); Platelet Count 184 X10*3/uL (160-400); Platelet Count 185 X10*3/uL (160-400); Red Blood Count 4.44 X10*6/uL (4.20-5.50); White Blood Count 5.0 X10*3/uL (4.8-10.8); White Blood Count 5.3 X10*3/uL (4.8-10.8)
[2025-01-19 13:24] LABS: Alanine Aminotransferase 47 U/L (0-31); Albumin Level 4.1 g/dL (3.5-5.0); Alkaline Phosphatase 68 U/L (39-117); Anion Gap 12 (12-20); Aspartate Amino Transferase 32 U/L (5-31); Blood Urea Nitrogen 17 mg/dL (9-16); Calcium 9.7 mg/dL (8.4-10.2); Carbon Dioxide 29 mmol/L (22-29); Chloride 105 mmol/L (96-108); Creatinine Clr Calc Pharmacy 58.5; Estimated Glomerular Filt Rate > 60; Potassium 3.8 mmol/L (3.3-5.1); Sodium 142 mmol/L (135-145); Total Protein 7.6 g/dL (6.5-8.0)
[2025-01-19 13:28] LABS: Acetaminophen LAB < 3 mcg/mL (<30); Salicylate < 5.0 mg/dL (15-30)
[2025-01-19 13:29] LABS: Alanine Aminotransferase 47 U/L (0-31); Albumin Level 4.1 g/dL (3.5-5.0); Alkaline Phosphatase 66 U/L (39-117); Anion Gap 12 (12-20); Aspartate Amino Transferase 32 U/L (5-31); Blood Urea Nitrogen 17 mg/dL (9-16); Calcium 9.7 mg/dL (8.4-10.2); Carbon Dioxide 29 mmol/L (22-29); Chloride 105 mmol/L (96-108); Creatinine Clr Calc Pharmacy 62.0; Estimated Glomerular Filt Rate > 60; Potassium 3.8 mmol/L (3.3-5.1); Sodium 142 mmol/L (135-145); Total Protein 7.5 g/dL (6.5-8.0)
[2025-01-19 14:00] LABS: Folate 10.2 ng/mL (> or = 4.0); Vitamin B12 948 pg/mL (200-900)
--- NOTE | 2025-01-19 15:29 | PC.NURSE ---
Patient accusing staff of not feeding her. Patient ate lunch that was provided. Offered crackers & pudding, which patient accepted. However, patient is stating where is the food that my daughter brought me? I know you guys are spitting in my food or putting something in it or something . This RN explained that food hasn't been tampered with.
--- NOTE | 2025-01-19 20:16 | MHC.EDTECH ---
Patient refused EKG at this time and asked staff to stop asking because the patient wanted to rest. RN is speaking with patient now.
[2025-01-19 23:50] VITALS: BP 140/58; PULSE 62; RESP 18; TEMP 36.4; O2SAT 97
[2025-01-19] MEDS: OLANZapine 10 MG VIAL IM (23:50)
--- NOTE | 2025-01-20 05:29 | PC.NURSE ---
Patient refused her HS meds, and PRNs, attempted to exit multiple times, when redirected got agitated and aggressive towards staff member and mad assaultive posture, provider notified/ordered olanzapine 10 mg IM and Benadryl 50 mg IM administered as ordered using security supports at 2350 with delayed effect. Currently in bed appears sleeping, no behavior and safety concerns at this time, disposition per care team is section 12 inpatient bed search, will continue to monitor
[2025-01-20 07:35] VITALS: BP 108/55; PULSE 59; RESP 14; TEMP 36.2; O2SAT 97
--- NOTE | 2025-01-20 09:16 | ECG_ITS ---
Test Reason : CHECK FOR QTC Blood Pressure : */* mmHG Vent. Rate : 60 BPM Atrial Rate : 60 BPM P-R Int : 148 ms QRS Dur : 76 ms QT Int : 410 ms P-R-T Axes : 56 15 70 degrees QTcB Int : 410 ms Normal sinus rhythm Possible Left atrial enlargement Borderline ECG No previous ECGs available Referred By: Aayush Cardoso Electronically Signed By: EVERTON DOMINGUEZ
[2025-01-20 12:30] VITALS: BP 111/55; PULSE 60; RESP 18
[2025-01-20 12:31] VITALS: BP 111/55
[2025-01-20] MEDS: NIFEdipine ER 30 MG TAB.ER.24 PO (12:31)
--- NOTE | 2025-01-20 13:09 | HO.PSYADMNOT ---
HPI Date of Service: 01/20/25 Chief Complaint: Psychosis Sources of Information: patient interviewed, chart reviewed and crisis/core team assessment reviewed Additional Sources of Information: Daughter Liya [phone] HPI Subjective Notes: Case Warning and Section 12B Narrative: Mrs. Sharif is a 69 year-old woman who was brought via EMS from [facility] due to increase agitation and paranoid delusions on 01/16/2025. Pt had just been discharged from [facility] and daughter went to pick her up but she would not get in the car stating that her daughter was an impostor. Per daughter, pt has been presenting with increase paranoid ideas for the past 2 months increasing in intensity and hallucination talking to someone who is not there. Pt belives someone is trying to kill her, someone familiar to her. Per daughter no prior hx of psychosis or delusions. Pt had hx of cocaine use. No recent use per daughter although daughter reports she may have relapsed. Utox is negative. UA does not show s/s of UTI. CBC mostly unremarkable. CMP with no electrolyte abnormalities. BUN 17, Cr. 0.89, creatinine clearance 58.5. LFTs slightly elevated AST 32, ALT 47. TSH 1.54. B12 948. Pt seen in her room. She is self dialoguing, yelling and pointing at someone who is not there. She reports at home people are trying to kill her but people does not believe her. She reports she does not need to be in the hospital and that it has been a mistake. She reports she is waiting for her daughter to come and pick her up. She believes her daughter is down stairs waiting for her. She denies SI/HI. She has been declining all medications including the ones for thyroid condition, HTN, seizure disorder. She is also refusing olanzapine which was started at [facility]. She declined to sign CV. Past Psychiatric History: IP: [facility]-recent DC OP: Not known Medical Evaluation Reviewed: Yes PMFSH Family History: schizophrenia, addiction son suicided by police (team reports to avoid incarceration) Social History: Pt with acute psychotic sx- she is unable to provide this today Trauma History: of her child Diagnostics Vital Signs (24Hr): Vital Signs - 24 hr 01/19/25 23:50 01/20/25 07:35 01/20/25 12:30 Temperature 97.5 F 97.2 F Pulse Rate 62 59 60 Respiratory Rate 18 14 18 Blood Pressure 140/58 H 108/55 L 111/55 L Pulse Oximetry 97 97 Oxygen Delivery Method Room Air Room Air 01/20/25 12:31 Temperature Pulse Rate Respiratory Rate Blood Pressure 111/55 L Pulse Oximetry Oxygen Delivery Method BMI result Body Mass Index 28.3 Labs 01/19/25 12:57 01/19/25 12:57 Labs: Laboratory Results - last 48 hr 01/19/25 01/19/25 01/19/25 12:57 12:57 12:57 WBC 5.3 5.0 RBC 4.44 4.44 Hgb 13.9 Hct MCV MCH MCHC RDW Plt Count MPV Immature Gran % (Auto) Neut % (Auto) Lymph % (Auto) [place] % (Auto) Eos % (Auto) Baso % (Auto) Lymph # (Auto) [place] # (Auto) Eos # (Auto) Baso # (Auto) Abs Immat Gran (auto) Absolute Neuts (auto) Absolute Nucleated RBC Nucleated RBC % (auto) Sodium Potassium Chloride Carbon Dioxide Anion Gap BUN Creatinine Estim Creat Clear Calc Estimated GFR Random Glucose Calcium Total Bilirubin AST ALT Alkaline Phosphatase Total Protein Albumin Vitamin B12 Folate TSH Salicylates Acetaminophen Ethyl Alcohol 01/19/25 01/19/25 01/19/25 12:57 12:57 12:57 WBC RBC Hgb 14.1 Hct 41.9 41.2 MCV 94.4 92.8 MCH 31.3 MCHC RDW Plt Count MPV Immature Gran % (Auto) Neut % (Auto) Lymph % (Auto) [place] % (Auto) Eos % (Auto) Baso % (Auto) Lymph # (Auto) [place] # (Auto) Eos # (Auto) Baso # (Auto) Abs Immat Gran (auto) Absolute Neuts (auto) Absolute Nucleated RBC Nucleated RBC % (auto) Sodium Potassium Chloride Carbon Dioxide Anion Gap BUN Creatinine Estim Creat Clear Calc Estimated GFR Random Glucose Calcium Total Bilirubin AST ALT Alkaline Phosphatase Total Protein Albumin Vitamin B12 Folate TSH Salicylates Acetaminophen Ethyl Alcohol 01/19/25 01/19/25 01/19/25 12:57 12:57 12:57 WBC RBC Hgb Hct MCV MCH 31.8 MCHC 33.2 34.2 RDW 12.2 12.3 Plt Count 185 MPV Immature Gran % (Auto) Neut % (Auto) Lymph % (Auto) [place] % (Auto) Eos % (Auto) Baso % (Auto) Lymph # (Auto) [place] # (Auto) Eos # (Auto) Baso # (Auto) Abs Immat Gran (auto) Absolute Neuts (auto) Absolute Nucleated RBC Nucleated RBC % (auto) Sodium Potassium Chloride Carbon Dioxide Anion Gap BUN Creatinine Estim Creat Clear Calc Estimated GFR Random Glucose Calcium Total Bilirubin AST ALT Alkaline Phosphatase Total Protein Albumin Vitamin B12 Folate TSH Salicylates Acetaminophen Ethyl Alcohol 01/19/25 01/19/25 01/19/25 12:57 12:57 12:57 WBC RBC Hgb Hct MCV MCH MCHC RDW Plt Count 184 MPV 10.5 10.3 Immature Gran % (Auto) 0.2 0.2 Neut % (Auto) 58.7 Lymph % (Auto) [place] % (Auto) Eos % (Auto) Baso % (Auto) Lymph # (Auto) [place] # (Auto) Eos # (Auto) Baso # (Auto) Abs Immat Gran (auto) Absolute Neuts (auto) Absolute Nucleated RBC Nucleated RBC % (auto) Sodium Potassium Chloride Carbon Dioxide Anion Gap BUN Creatinine Estim Creat Clear Calc Estimated GFR Random Glucose Calcium Total Bilirubin AST ALT Alkaline Phosphatase Total Protein Albumin Vitamin B12 Folate TSH Salicylates Acetaminophen Ethyl Alcohol 01/19/25 01/19/25 01/19/25 12:57 12:57 12:57 WBC RBC Hgb Hct MCV MCH MCHC RDW Plt Count MPV Immature Gran % (Auto) Neut % (Auto) 58.5 Lymph % (Auto) 32.0 32.3 [place] % (Auto) 6.4 7.0 Eos % (Auto) 2.1 Baso % (Auto) Lymph # (Auto) [place] # (Auto) Eos # (Auto) Baso # (Auto) Abs Immat Gran (auto) Absolute Neuts (auto) Absolute Nucleated RBC Nucleated RBC % (auto) Sodium Potassium Chloride Carbon Dioxide Anion Gap BUN Creatinine Estim Creat Clear Calc Estimated GFR Random Glucose Calcium Total Bilirubin AST ALT Alkaline Phosphatase Total Protein Albumin Vitamin B12 Folate TSH Salicylates Acetaminophen Ethyl Alcohol 01/19/25 01/19/25 01/19/25 12:57 12:57 12:57 WBC RBC Hgb Hct MCV MCH MCHC RDW Plt Count MPV Immature Gran % (Auto) Neut % (Auto) Lymph % (Auto) [place] % (Auto) Eos % (Auto) 1.4 Baso % (Auto) 0.6 0.6 Lymph # (Auto) 1.7 1.6 [place] # (Auto) 0.3 Eos # (Auto) Baso # (Auto) Abs Immat Gran (auto) Absolute Neuts (auto) Absolute Nucleated RBC Nucleated RBC % (auto) Sodium Potassium Chloride Carbon Dioxide Anion Gap BUN Creatinine Estim Creat Clear Calc Estimated GFR Random Glucose Calcium Total Bilirubin AST ALT Alkaline Phosphatase Total Protein Albumin Vitamin B12 Folate TSH Salicylates Acetaminophen Ethyl Alcohol 01/19/25 01/19/25 01/19/25 12:57 12:57 12:57 WBC RBC Hgb Hct MCV MCH MCHC RDW Plt Count MPV Immature Gran % (Auto) Neut % (Auto) Lymph % (Auto) [place] % (Auto) Eos % (Auto) Baso % (Auto) Lymph # (Auto) [place] # (Auto) 0.4 Eos # (Auto) 0.1 0.1 Baso # (Auto) 0.0 0.0 Abs Immat Gran (auto) 0.01 Absolute Neuts (auto) Absolute Nucleated RBC Nucleated RBC % (auto) Sodium Potassium Chloride Carbon Dioxide Anion Gap BUN Creatinine Estim Creat Clear Calc Estimated GFR Random Glucose Calcium Total Bilirubin AST ALT Alkaline Phosphatase Total Protein Albumin Vitamin B12 Folate TSH Salicylates Acetaminophen Ethyl Alcohol 01/19/25 01/19/25 01/19/25 12:57 12:57 12:57 WBC RBC Hgb Hct MCV MCH MCHC RDW Plt Count MPV Immature Gran % (Auto) Neut % (Auto) Lymph % (Auto) [place] % (Auto) Eos % (Auto) Baso % (Auto) Lymph # (Auto) [place] # (Auto) Eos # (Auto) Baso # (Auto) Abs Immat Gran (auto) 0.01 Absolute Neuts (auto) 3.1 2.9 Absolute Nucleated RBC 0.000 0.000 Nucleated RBC % (auto) 0.0 Sodium Potassium Chloride Carbon Dioxide Anion Gap BUN Creatinine Estim Creat Clear Calc Estimated GFR Random Glucose Calcium Total Bilirubin AST ALT Alkaline Phosphatase Total Protein Albumin Vitamin B12 Folate TSH Salicylates Acetaminophen Ethyl Alcohol 01/19/25 01/19/25 01/19/25 12:57 12:57 12:57 WBC RBC Hgb Hct MCV MCH MCHC RDW Plt Count MPV Immature Gran % (Auto) Neut % (Auto) Lymph % (Auto) [place] % (Auto) Eos % (Auto) Baso % (Auto) Lymph # (Auto) [place] # (Auto) Eos # (Auto) Baso # (Auto) Abs Immat Gran (auto) Absolute Neuts (auto) Absolute Nucleated RBC Nucleated RBC % (auto) 0.0 Sodium 142 142 Potassium 3.8 3.8 Chloride 105 Carbon Dioxide Anion Gap BUN Creatinine Estim Creat Clear Calc Estimated GFR Random Glucose Calcium Total Bilirubin AST ALT Alkaline Phosphatase Total Protein Albumin Vitamin B12 Folate TSH Salicylates Acetaminophen Ethyl Alcohol 01/19/25 01/19/25 01/19/25 12:57 12:57 12:57 WBC RBC Hgb Hct MCV MCH MCHC RDW Plt Count MPV Immature Gran % (Auto) Neut % (Auto) Lymph % (Auto) [place] % (Auto) Eos % (Auto) Baso % (Auto) Lymph # (Auto) [place] # (Auto) Eos # (Auto) Baso # (Auto) Abs Immat Gran (auto) Absolute Neuts (auto) Absolute Nucleated RBC Nucleated RBC % (auto) Sodium Potassium Chloride 105 Carbon Dioxide 29 29 Anion Gap 12 12 BUN 17 H Creatinine Estim Creat Clear Calc Estimated GFR Random Glucose Calcium Total Bilirubin AST ALT Alkaline Phosphatase Total Protein Albumin Vitamin B12 Folate TSH Salicylates Acetaminophen Ethyl Alcohol 01/19/25 01/19/25 01/19/25 12:57 12:57 12:57 WBC RBC Hgb Hct MCV MCH MCHC RDW Plt Count MPV Immature Gran % (Auto) Neut % (Auto) Lymph % (Auto) [place] % (Auto) Eos % (Auto) Baso % (Auto) Lymph # (Auto) [place] # (Auto) Eos # (Auto) Baso # (Auto) Abs Immat Gran (auto) Absolute Neuts (auto) Absolute Nucleated RBC Nucleated RBC % (auto) Sodium Potassium Chloride Carbon Dioxide Anion Gap BUN 17 H Creatinine 0.84 0.89 Estim Creat Clear Calc 62.0 58.5 Estimated GFR > 60 Random Glucose Calcium Total Bilirubin AST ALT Alkaline Phosphatase Total Protein Albumin Vitamin B12 Folate TSH Salicylates Acetaminophen Ethyl Alcohol 01/19/25 01/19/25 01/19/25 12:57 12:57 12:57 WBC RBC Hgb Hct MCV MCH MCHC RDW Plt Count MPV Immature Gran % (Auto) Neut % (Auto) Lymph % (Auto) [place] % (Auto) Eos % (Auto) Baso % (Auto) Lymph # (Auto) [place] # (Auto) Eos # (Auto) Baso # (Auto) Abs Immat Gran (auto) Absolute Neuts (auto) Absolute Nucleated RBC Nucleated RBC % (auto) Sodium Potassium Chloride Carbon Dioxide Anion Gap BUN Creatinine Estim Creat Clear Calc Estimated GFR > 60 Random Glucose 127 H 124 H Calcium 9.7 9.7 Total Bilirubin 0.3 AST ALT Alkaline Phosphatase Total Protein Albumin Vitamin B12 Folate TSH Salicylates Acetaminophen Ethyl Alcohol 01/19/25 01/19/25 01/19/25 12:57 12:57 12:57 WBC RBC Hgb Hct MCV MCH MCHC RDW Plt Count MPV Immature Gran % (Auto) Neut % (Auto) Lymph % (Auto) [place] % (Auto) Eos % (Auto) Baso % (Auto) Lymph # (Auto) [place] # (Auto) Eos # (Auto) Baso # (Auto) Abs Immat Gran (auto) Absolute Neuts (auto) Absolute Nucleated RBC Nucleated RBC % (auto) Sodium Potassium Chloride Carbon Dioxide Anion Gap BUN Creatinine Estim Creat Clear Calc Estimated GFR Random Glucose Calcium Total Bilirubin 0.3 AST 32 H 32 H ALT 47 H 47 H Alkaline Phosphatase 66 Total Protein Albumin Vitamin B12 Folate TSH Salicylates Acetaminophen Ethyl Alcohol 01/19/25 01/19/25 01/19/25 12:57 12:57 12:57 WBC RBC Hgb Hct MCV MCH MCHC RDW Plt Count MPV Immature Gran % (Auto) Neut % (Auto) Lymph % (Auto) [place] % (Auto) Eos % (Auto) Baso % (Auto) Lymph # (Auto) [place] # (Auto) Eos # (Auto) Baso # (Auto) Abs Immat Gran (auto) Absolute Neuts (auto) Absolute Nucleated RBC Nucleated RBC % (auto) Sodium Potassium Chloride Carbon Dioxide Anion Gap BUN Creatinine Estim Creat Clear Calc Estimated GFR Random Glucose Calcium Total Bilirubin AST ALT Alkaline Phosphatase 68 Total Protein 7.5 7.6 Albumin 4.1 4.1 Vitamin B12 948 H Folate 10.2 TSH 1.54 Salicylates < 5.0 L Acetaminophen < 3 Ethyl Alcohol < 10 Meds/Allergies Meds Home Medications ?Medication ?Instructions ?Recorded ?Confirmed ?Type albuterol sulfate 90 mcg/actuation 2 puff inhalation Q4-6H PRN 01/18/25 01/18/25 History aerosol inhaler Shortness Of Breath Or Wheezing atorvastatin 40 mg tablet 40 mg PO DAILY 01/18/25 01/18/25 History chlorthalidone 25 mg tablet 25 mg PO DAILY 01/18/25 01/18/25 History fluticasone 500 mcg-salmeterol 50 1 inh inhalation DAILY 01/18/25 01/18/25 History mcg/dose blistr powdr for inhalation (Wixela Inhub) levetiracetam 500 mg tablet 500 mg PO BID 01/18/25 01/18/25 History methimazole 5 mg tablet 5 mg PO DAILY 01/18/25 01/18/25 History nifedipine 30 mg tablet,extended 30 mg PO DAILY 01/18/25 01/18/25 History release 24 hr terbinafine HCl 250 mg tablet 250 mg PO DAILY 01/18/25 01/18/25 History umeclidinium 62.5 mcg/actuation 1 inh inhalation DAILY 01/18/25 01/18/25 History blister powder for inhalation (Incruse Ellipta) Allergies Allergies Allergy/AdvReac Type Severity Reaction Status Date / Time latex Allergy Unknown Verified 01/16/25 20:11 peanut Allergy Unknown Verified 01/16/25 20:11 Penicillins Allergy Unknown Verified 01/16/25 20:11 Mental Status Exam Mental Status Exam Narrative: Appearance: wearing hospital gown, fair hygiene, fearful and anxious looking. CAHUILLA and needs hearing aids. Behavior: guarded and fearful Psychomotor: no agitation but yelling at times to someone who is not there Speech: mostly clear, regular rate/rhythm/volume, spontaneous TP: goal oriented- wanting to leave TC: paranoid delusions, wanting to go Mood: okay Affect: guarded, suspicious and paranoid SI: denies HI: denies VH/AH: talking to someone who is not there, unclear if seeing person as well. Delusions: paranoid/persecutory delusions. cap gras delusions. Assessment & Plan Assessment & Plan (1) Psychosis: Status: Acute Code(s): F29 - Unspecified psychosis not due to a substance or known physiological condition Plan Mrs. Sharif is a 69 year-old woman who presents with a 3 month hx of new onset of psychosis (AH) and combination of paranoid delusions and cap gras delusions. No prior psychiatric hx. She does have of cocaine use but apparently had not used in some years. Daughter suspects she may have relapsed but no ongoing use. Pt presents with more complex theme of delusions. No additional medical work up available including head CT. CBC and cmp unremarkable. 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 It may be related to dementia process but complexity of delusions and psychosis not the common presentation for dementia that have psychosis early on such as in vascular dementia or LBD. Pt presents as gravely disable to able to care for self due to symptoms of psychosis and delusions. PLAN 1. Admit to S1, sect 12b 2. continue current medications 3. OT assessment 4. head CT- if pt allows it. Added inflamatory markers. Patient educated on: diagnosis and medication risk/benefits Reason for continued inpatient stay Substantial Risk for: inability to function Statement Statement: I have reviewed the history and physical and performed a pertinent examination on my patient. No changes have occurred unless specified. If the History and Physical was not performed prior to admission, the Hospitalist's service will be consulted for completing the admission physical. Time Spent With Patient Time: Total time managing care of this patient today ____ minutes.
[2025-01-20 15:04] VITALS: BP 136/88; PULSE 97; RESP 16; TEMP 37; O2SAT 97
--- NOTE | 2025-01-20 18:34 | PC.ADMIT ---
Addendum entered by Kristian Ellsworth RN 01/20/25 19:14: Pt did NOT sign any document due to lacking capacity and altered mental status. Addendum entered by Kristian Ellsworth RN 01/20/25 19:07: * Peanut allergy, latex, penicillin allergies * Original Note: Pt is a 69 year old female who was brought in from the pod on 12B for the treatment of psychosis. Pt has a hx of crack cocaine use but had been in recovery. It's suspected that pt relapsed at some point which led to psychosis. Pt went to [facility] for a week and it has been reported that pt was discharged in worse condition than when she came in. 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 Pt was having robust and intense -almost confrontational conversations while in the POD with herself. She was unable to participate on admission meaningfully as she was yelling and saying her daughter is picking her up. She is holding her hand near her mouth and is pretending to be conversing with her daughter on the phone. Pt is clearly responding to internal stimuli and says nonsensical and irrelevant statements frequently. She is ambulatory and independent with her ADLs. Skin check found no significant findings.
[2025-01-20 20:00] VITALS: BP 119/86; PULSE 60; RESP 18; TEMP 36.9; O2SAT 93
[2025-01-21 08:00] VITALS: BP 124/58; PULSE 57; RESP 16; TEMP 36.8; O2SAT 97
--- NOTE | 2025-01-21 10:33 | P.PNPSI_ITS ---
Subjective Subjective Date of Service: 01/21/25 Reason For Visit: Psychosis Subjective Notes: Section 12B Interim History: Pt slept through the night. She has been talking to someone who is not there. Yelling at them. She continues to report that some is trying to harm her. She declines medications stating this is a mistake and she should not be here and is awaiting for her daughter. Spoke with daughter about pt's debilitating symptoms affecting her ability to care for herself. Mental Status Exam Mental Status Exam Narrative: Appearance: wearing hospital gown, fair hygiene, fearful and anxious looking. [place] and needs hearing aids. Behavior: guarded and fearful Psychomotor: no agitation but yelling at times to someone who is not there Speech: mostly clear, regular rate/rhythm/volume, spontaneous TP: goal oriented- wanting to leave TC: paranoid delusions, wanting to go Mood: okay Affect: guarded, suspicious and paranoid SI: denies HI: denies VH/AH: talking to someone who is not there, unclear if seeing person as well. Delusions: paranoid/persecutory delusions. cap gras delusions. Diagnostics Vital Signs (24Hr): Vital Signs - 24 hr 01/20/25 12:30 01/20/25 12:31 01/20/25 15:04 Temperature 98.6 F Pulse Rate 60 97 Respiratory Rate 18 16 Blood Pressure 111/55 L 111/55 L 136/88 Pulse Oximetry 97 Oxygen Delivery Method Room Air 01/20/25 20:00 01/21/25 08:00 Temperature 98.4 F 98.3 F Pulse Rate 60 57 Respiratory Rate 18 16 Blood Pressure 119/86 124/58 L Pulse Oximetry 93 97 Oxygen Delivery Method Room Air Room Air BMI result Body Mass Index 28.3 Labs 01/19/25 12:57 01/19/25 12:57 Labs: Laboratory Results - last 48 hr 01/19/25 01/19/25 01/19/25 12:57 12:57 12:57 WBC 5.3 5.0 RBC 4.44 4.44 Hgb 13.9 Hct MCV MCH MCHC RDW Plt Count MPV Immature Gran % (Auto) Neut % (Auto) Lymph % (Auto) [place] % (Auto) Eos % (Auto) Baso % (Auto) Lymph # (Auto) [place] # (Auto) Eos # (Auto) Baso # (Auto) Abs Immat Gran (auto) Absolute Neuts (auto) Absolute Nucleated RBC Nucleated RBC % (auto) Sodium Potassium Chloride Carbon Dioxide Anion Gap BUN Creatinine Estim Creat Clear Calc Estimated GFR Random Glucose Calcium Total Bilirubin AST ALT Alkaline Phosphatase Total Protein Albumin Vitamin B12 Folate TSH Salicylates Acetaminophen Ethyl Alcohol 01/19/25 01/19/25 01/19/25 12:57 12:57 12:57 WBC RBC Hgb 14.1 Hct 41.9 41.2 MCV 94.4 92.8 MCH 31.3 MCHC RDW Plt Count MPV Immature Gran % (Auto) Neut % (Auto) Lymph % (Auto) [place] % (Auto) Eos % (Auto) Baso % (Auto) Lymph # (Auto) [place] # (Auto) Eos # (Auto) Baso # (Auto) Abs Immat Gran (auto) Absolute Neuts (auto) Absolute Nucleated RBC Nucleated RBC % (auto) Sodium Potassium Chloride Carbon Dioxide Anion Gap BUN Creatinine Estim Creat Clear Calc Estimated GFR Random Glucose Calcium Total Bilirubin AST ALT Alkaline Phosphatase Total Protein Albumin Vitamin B12 Folate TSH Salicylates Acetaminophen Ethyl Alcohol 01/19/25 01/19/25 01/19/25 12:57 12:57 12:57 WBC RBC Hgb Hct MCV MCH 31.8 MCHC 33.2 34.2 RDW 12.2 12.3 Plt Count 185 MPV Immature Gran % (Auto) Neut % (Auto) Lymph % (Auto) [place] % (Auto) Eos % (Auto) Baso % (Auto) Lymph # (Auto) [place] # (Auto) Eos # (Auto) Baso # (Auto) Abs Immat Gran (auto) Absolute Neuts (auto) Absolute Nucleated RBC Nucleated RBC % (auto) Sodium Potassium Chloride Carbon Dioxide Anion Gap BUN Creatinine Estim Creat Clear Calc Estimated GFR Random Glucose Calcium Total Bilirubin AST ALT Alkaline Phosphatase Total Protein Albumin Vitamin B12 Folate TSH Salicylates Acetaminophen Ethyl Alcohol 01/19/25 01/19/25 01/19/25 12:57 12:57 12:57 WBC RBC Hgb Hct MCV MCH MCHC RDW Plt Count 184 MPV 10.5 10.3 Immature Gran % (Auto) 0.2 0.2 Neut % (Auto) 58.7 Lymph % (Auto) [place] % (Auto) Eos % (Auto) Baso % (Auto) Lymph # (Auto) [place] # (Auto) Eos # (Auto) Baso # (Auto) Abs Immat Gran (auto) Absolute Neuts (auto) Absolute Nucleated RBC Nucleated RBC % (auto) Sodium Potassium Chloride Carbon Dioxide Anion Gap BUN Creatinine Estim Creat Clear Calc Estimated GFR Random Glucose Calcium Total Bilirubin AST ALT Alkaline Phosphatase Total Protein Albumin Vitamin B12 Folate TSH Salicylates Acetaminophen Ethyl Alcohol 01/19/25 01/19/25 01/19/25 12:57 12:57 12:57 WBC RBC Hgb Hct MCV MCH MCHC RDW Plt Count MPV Immature Gran % (Auto) Neut % (Auto) 58.5 Lymph % (Auto) 32.0 32.3 [place] % (Auto) 6.4 7.0 Eos % (Auto) 2.1 Baso % (Auto) Lymph # (Auto) [place] # (Auto) Eos # (Auto) Baso # (Auto) Abs Immat Gran (auto) Absolute Neuts (auto) Absolute Nucleated RBC Nucleated RBC % (auto) Sodium Potassium Chloride Carbon Dioxide Anion Gap BUN Creatinine Estim Creat Clear Calc Estimated GFR Random Glucose Calcium Total Bilirubin AST ALT Alkaline Phosphatase Total Protein Albumin Vitamin B12 Folate TSH Salicylates Acetaminophen Ethyl Alcohol 01/19/25 01/19/25 01/19/25 12:57 12:57 12:57 WBC RBC Hgb Hct MCV MCH MCHC RDW Plt Count MPV Immature Gran % (Auto) Neut % (Auto) Lymph % (Auto) [place] % (Auto) Eos % (Auto) 1.4 Baso % (Auto) 0.6 0.6 Lymph # (Auto) 1.7 1.6 [place] # (Auto) 0.3 Eos # (Auto) Baso # (Auto) Abs Immat Gran (auto) Absolute Neuts (auto) Absolute Nucleated RBC Nucleated RBC % (auto) Sodium Potassium Chloride Carbon Dioxide Anion Gap BUN Creatinine Estim Creat Clear Calc Estimated GFR Random Glucose Calcium Total Bilirubin AST ALT Alkaline Phosphatase Total Protein Albumin Vitamin B12 Folate TSH Salicylates Acetaminophen Ethyl Alcohol 01/19/25 01/19/25 01/19/25 12:57 12:57 12:57 WBC RBC Hgb Hct MCV MCH MCHC RDW Plt Count MPV Immature Gran % (Auto) Neut % (Auto) Lymph % (Auto) [place] % (Auto) Eos % (Auto) Baso % (Auto) Lymph # (Auto) [place] # (Auto) 0.4 Eos # (Auto) 0.1 0.1 Baso # (Auto) 0.0 0.0 Abs Immat Gran (auto) 0.01 Absolute Neuts (auto) Absolute Nucleated RBC Nucleated RBC % (auto) Sodium Potassium Chloride Carbon Dioxide Anion Gap BUN Creatinine Estim Creat Clear Calc Estimated GFR Random Glucose Calcium Total Bilirubin AST ALT Alkaline Phosphatase Total Protein Albumin Vitamin B12 Folate TSH Salicylates Acetaminophen Ethyl Alcohol 01/19/25 01/19/25 01/19/25 12:57 12:57 12:57 WBC RBC Hgb Hct MCV MCH MCHC RDW Plt Count MPV Immature Gran % (Auto) Neut % (Auto) Lymph % (Auto) [place] % (Auto) Eos % (Auto) Baso % (Auto) Lymph # (Auto) [place] # (Auto) Eos # (Auto) Baso # (Auto) Abs Immat Gran (auto) 0.01 Absolute Neuts (auto) 3.1 2.9 Absolute Nucleated RBC 0.000 0.000 Nucleated RBC % (auto) 0.0 Sodium Potassium Chloride Carbon Dioxide Anion Gap BUN Creatinine Estim Creat Clear Calc Estimated GFR Random Glucose Calcium Total Bilirubin AST ALT Alkaline Phosphatase Total Protein Albumin Vitamin B12 Folate TSH Salicylates Acetaminophen Ethyl Alcohol 01/19/25 01/19/25 01/19/25 12:57 12:57 12:57 WBC RBC Hgb Hct MCV MCH MCHC RDW Plt Count MPV Immature Gran % (Auto) Neut % (Auto) Lymph % (Auto) [place] % (Auto) Eos % (Auto) Baso % (Auto) Lymph # (Auto) [place] # (Auto) Eos # (Auto) Baso # (Auto) Abs Immat Gran (auto) Absolute Neuts (auto) Absolute Nucleated RBC Nucleated RBC % (auto) 0.0 Sodium 142 142 Potassium 3.8 3.8 Chloride 105 Carbon Dioxide Anion Gap BUN Creatinine Estim Creat Clear Calc Estimated GFR Random Glucose Calcium Total Bilirubin AST ALT Alkaline Phosphatase Total Protein Albumin Vitamin B12 Folate TSH Salicylates Acetaminophen Ethyl Alcohol 01/19/25 01/19/25 01/19/25 12:57 12:57 12:57 WBC RBC Hgb Hct MCV MCH MCHC RDW Plt Count MPV Immature Gran % (Auto) Neut % (Auto) Lymph % (Auto) [place] % (Auto) Eos % (Auto) Baso % (Auto) Lymph # (Auto) [place] # (Auto) Eos # (Auto) Baso # (Auto) Abs Immat Gran (auto) Absolute Neuts (auto) Absolute Nucleated RBC Nucleated RBC % (auto) Sodium Potassium Chloride 105 Carbon Dioxide 29 29 Anion Gap 12 12 BUN 17 H Creatinine Estim Creat Clear Calc Estimated GFR Random Glucose Calcium Total Bilirubin AST ALT Alkaline Phosphatase Total Protein Albumin Vitamin B12 Folate TSH Salicylates Acetaminophen Ethyl Alcohol 01/19/25 01/19/25 01/19/25 12:57 12:57 12:57 WBC RBC Hgb Hct MCV MCH MCHC RDW Plt Count MPV Immature Gran % (Auto) Neut % (Auto) Lymph % (Auto) [place] % (Auto) Eos % (Auto) Baso % (Auto) Lymph # (Auto) [place] # (Auto) Eos # (Auto) Baso # (Auto) Abs Immat Gran (auto) Absolute Neuts (auto) Absolute Nucleated RBC Nucleated RBC % (auto) Sodium Potassium Chloride Carbon Dioxide Anion Gap BUN 17 H Creatinine 0.84 0.89 Estim Creat Clear Calc 62.0 58.5 Estimated GFR > 60 Random Glucose Calcium Total Bilirubin AST ALT Alkaline Phosphatase Total Protein Albumin Vitamin B12 Folate TSH Salicylates Acetaminophen Ethyl Alcohol 01/19/25 01/19/25 01/19/25 12:57 12:57 12:57 WBC RBC Hgb Hct MCV MCH MCHC RDW Plt Count MPV Immature Gran % (Auto) Neut % (Auto) Lymph % (Auto) [place] % (Auto) Eos % (Auto) Baso % (Auto) Lymph # (Auto) [place] # (Auto) Eos # (Auto) Baso # (Auto) Abs Immat Gran (auto) Absolute Neuts (auto) Absolute Nucleated RBC Nucleated RBC % (auto) Sodium Potassium Chloride Carbon Dioxide Anion Gap BUN Creatinine Estim Creat Clear Calc Estimated GFR > 60 Random Glucose 127 H 124 H Calcium 9.7 9.7 Total Bilirubin 0.3 AST ALT Alkaline Phosphatase Total Protein Albumin Vitamin B12 Folate TSH Salicylates Acetaminophen Ethyl Alcohol 01/19/25 01/19/25 01/19/25 12:57 12:57 12:57 WBC RBC Hgb Hct MCV MCH MCHC RDW Plt Count MPV Immature Gran % (Auto) Neut % (Auto) Lymph % (Auto) [place] % (Auto) Eos % (Auto) Baso % (Auto) Lymph # (Auto) [place] # (Auto) Eos # (Auto) Baso # (Auto) Abs Immat Gran (auto) Absolute Neuts (auto) Absolute Nucleated RBC Nucleated RBC % (auto) Sodium Potassium Chloride Carbon Dioxide Anion Gap BUN Creatinine Estim Creat Clear Calc Estimated GFR Random Glucose Calcium Total Bilirubin 0.3 AST 32 H 32 H ALT 47 H 47 H Alkaline Phosphatase 66 Total Protein Albumin Vitamin B12 Folate TSH Salicylates Acetaminophen Ethyl Alcohol 01/19/25 01/19/25 01/19/25 12:57 12:57 12:57 WBC RBC Hgb Hct MCV MCH MCHC RDW Plt Count MPV Immature Gran % (Auto) Neut % (Auto) Lymph % (Auto) [place] % (Auto) Eos % (Auto) Baso % (Auto) Lymph # (Auto) [place] # (Auto) Eos # (Auto) Baso # (Auto) Abs Immat Gran (auto) Absolute Neuts (auto) Absolute Nucleated RBC Nucleated RBC % (auto) Sodium Potassium Chloride Carbon Dioxide Anion Gap BUN Creatinine Estim Creat Clear Calc Estimated GFR Random Glucose Calcium Total Bilirubin AST ALT Alkaline Phosphatase 68 Total Protein 7.5 7.6 Albumin 4.1 4.1 Vitamin B12 948 H Folate 10.2 TSH 1.54 Salicylates < 5.0 L Acetaminophen < 3 Ethyl Alcohol < 10 Medications Medications Current Medications Acetaminophen (Acetaminophen 325 Mg Tablet) 650 mg PO Q6H PRN PRN Reason: Headache/Pain, Scale 1-10 Al Hydroxide/Mg Hydroxide (Magnesium Hydrox/Alum Hydrox 30 Ml Oral.Susp) 30 ml PO Q6H PRN PRN Reason: Heartburn/Nausea Albuterol Sulfate (Albuterol Sulfate 90 Mcg 8 Gm Inhaler) 2 puff INHALE Q4H PRN PRN Reason: Shortness Of Breath Or Wheezing Atorvastatin Calcium (Atorvastatin Calcium 40 Mg Tablet) 40 mg PO DAILY [facility] Last Admin: 01/21/25 09:05 Dose: Not Given Fluticasone/Vilanterol (Fluticasone/Vilanterol 200/25 Blst.W.Dev) 1 puff INHALE RDAILY [facility] Last Admin: 01/21/25 09:05 Dose: Not Given Hydrochlorothiazide (Hydrochlorothiazide 25 Mg Tablet) 25 mg PO DAILY [facility] Last Admin: 01/21/25 09:06 Dose: Not Given Levetiracetam (Levetiracetam 500 Mg Tablet) 500 mg PO BID [facility] Last Admin: 01/21/25 09:06 Dose: Not Given Magnesium Hydroxide (Milk Of Magnesia 30 Ml Oral.Susp) 30 ml PO DAILY PRN PRN Reason: Constipation Methimazole (Methimazole 5 Mg Tablet) 5 mg PO DAILY [facility] Last Admin: 01/21/25 09:06 Dose: Not Given Nifedipine (Nifedipine Er 30 Mg Tab.Er.24) 30 mg PO DAILY [facility]; Protocol Last Admin: 01/21/25 09:06 Dose: Not Given Non-Formulary Medication (Terbinafine Hcl) 250 mg PO DAILY [facility] Olanzapine (Olanzapine Odt 10 Mg Tab.Rapdis) 10 mg TRANSLINGU BEDTIME [facility] Last Admin: 01/20/25 20:51 Dose: Not Given Olanzapine (Olanzapine 5 Mg Tablet) 5 mg PO Q6H PRN PRN Reason: severe agitation Last Admin: 01/18/25 14:25 Dose: 5 mg Tiotropium [place] (Tiotropium [place] 2.5 Mcg 1 Puff/2.5 Mcg Mist.Inhal) 1 puff INHALE RDAILY [facility] Last Admin: 01/21/25 09:06 Dose: Not Given Trazodone HCl (Trazodone Hcl 50 Mg Tablet) 50 mg PO BEDTIME MRX1 PRN PRN Reason: Insomnia Allergies Allergies Allergy/AdvReac Type Severity Reaction Status Date / Time latex Allergy Unknown Verified 01/16/25 20:11 peanut Allergy Unknown Verified 01/16/25 20:11 Penicillins Allergy Unknown Verified 01/16/25 20:11 Assessment & Plan Assessment & Plan (1) Psychosis: Status: Acute Code(s): F29 - Unspecified psychosis not due to a substance or known physiological condition Plan Mrs. Sharif is a 69 year-old woman who presents with a 3 month hx of new onset of psychosis (AH) and combination of paranoid delusions and cap gras delusions. No prior psychiatric hx. She does have of cocaine use but apparently had not used in some years. Daughter suspects she may have relapsed but no ongoing use. Pt presents with more complex theme of delusions. No additional medical work up available including head CT. CBC and cmp unremarkable. 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 It may be related to dementia process but complexity of delusions and psychosis not the common presentation for dementia that have psychosis early on such as in vascular dementia or LBD. Pt presents as gravely disable to able to care for self due to symptoms of psychosis and delusions. PLAN 01/21 continues to decline medications, self dialoguing, and paranoid. Reason for continued inpatient stay Substantial Risk for: inability to function Time Spent With Patient Time: Total time managing care of this patient today ____ minutes.
--- NOTE | 2025-01-22 16:17 | PC.NURSE ---
Afteer a lot of discussion was able to have her take a PRN Olanzapine. She believes that she is being held against her will.
--- NOTE | 2025-01-22 17:13 | HO.PSYCHPN ---
Subjective Subjective Date of Service: 01/22/25 Reason For Visit: Psychosis Subjective Notes: Section 12B Interim History: Pt slept most of the night. She has been very agitated and fearful, ongoing auditory hallucinations telling her that her son is , that her daughter is outside waiting for her and that her daughter also needs medical attention. Pt yelling, screaming, attempting to leave the unit because she states her daughter is outside and is not well. declines medications, very suspicious and guarded, thinks someone is trying to harm her. Review of Systems Review of Systems Yes Unobtainable due to mental status and Other (patient refused to answer ROS questions) Constitutional: Reports as per HPI Eyes: Reports as per HPI Reports as per HPI Cardiovascular: Reports as per HPI Respiratory: Reports as per HPI Gastrointestinal: Reports as per HPI Musculoskeletal: Reports as per HPI Skin/Breast: Reports as per HPI Reports as per HPI Psychiatric: Reports as per HPI Endocrine: Reports as per HPI Hematologic/Lymphatic: Reports as per HPI Allergic/Immunologic: Reports as per HPI Mental Status Exam Mental Status Exam Narrative: Appearance: wearing hospital gown, fair hygiene, fearful and anxious looking[place] and needs hearing aids. Behavior: guarded and fearful Psychomotor: no agitation but yelling at times to someone who is not there Speech: mostly clear, regular rate/rhythm/volume, spontaneous TP: goal oriented- wanting to leave TC: paranoid delusions, wanting to go Mood: okay Affect: guarded, suspicious and paranoid SI: denies HI: denies VH/AH: talking to someone who is not there, unclear if seeing person as well. Delusions: paranoid/persecutory delusions. cap gras delusions. Diagnostics Vital Signs (24Hr): BMI result Body Mass Index 28.3 Labs 01/19/25 12:57 01/19/25 12:57 Medications Medications Current Medications Acetaminophen (Acetaminophen 325 Mg Tablet) 650 mg PO Q6H PRN PRN Reason: Headache/Pain, Scale 1-10 Last Admin: 01/22/25 16:06 Dose: 650 mg Al Hydroxide/Mg Hydroxide (Magnesium Hydrox/Alum Hydrox 30 Ml Oral.Susp) 30 ml PO Q6H PRN PRN Reason: Heartburn/Nausea Albuterol Sulfate (Albuterol Sulfate 90 Mcg 8 Gm Inhaler) 2 puff INHALE Q4H PRN PRN Reason: Shortness Of Breath Or Wheezing Atorvastatin Calcium (Atorvastatin Calcium 40 Mg Tablet) 40 mg PO DAILY [facility] Last Admin: 01/22/25 09:08 Dose: Not Given Fluticasone/Vilanterol (Fluticasone/Vilanterol 200/25 Blst.W.Dev) 1 puff INHALE RDAILY [facility] Last Admin: 01/22/25 09:08 Dose: Not Given Hydrochlorothiazide (Hydrochlorothiazide 25 Mg Tablet) 25 mg PO DAILY [facility] Last Admin: 01/22/25 09:08 Dose: Not Given Levetiracetam (Levetiracetam 500 Mg Tablet) 500 mg PO BID [facility] Last Admin: 01/22/25 09:09 Dose: Not Given Magnesium Hydroxide (Milk Of Magnesia 30 Ml Oral.Susp) 30 ml PO DAILY PRN PRN Reason: Constipation Methimazole (Methimazole 5 Mg Tablet) 5 mg PO DAILY [facility] Last Admin: 01/22/25 09:09 Dose: Not Given Nifedipine (Nifedipine Er 30 Mg Tab.Er.24) 30 mg PO DAILY [facility]; Protocol Last Admin: 01/22/25 09:09 Dose: Not Given Non-Formulary Medication (Terbinafine Hcl) 250 mg PO DAILY [facility] Olanzapine (Olanzapine 10 Mg Tablet) 10 mg PO Q6H PRN PRN Reason: severe agitation Last Admin: 01/22/25 16:03 Dose: 10 mg Risperidone (Risperidone 1 Mg Tablet) 1 mg PO BID [facility] Last Admin: 01/22/25 11:17 Dose: Not Given Tiotropium [place] (Tiotropium [place] 2.5 Mcg 1 Puff/2.5 Mcg Mist.Inhal) 1 puff INHALE RDAILY [facility] Last Admin: 01/22/25 09:08 Dose: Not Given Trazodone HCl (Trazodone Hcl 50 Mg Tablet) 50 mg PO BEDTIME MRX1 PRN PRN Reason: Insomnia Allergies Allergies Allergy/AdvReac Type Severity Reaction Status Date / Time latex Allergy Unknown Verified 01/16/25 20:11 peanut Allergy Unknown Verified 01/16/25 20:11 Penicillins Allergy Unknown Verified 01/16/25 20:11 Assessment & Plan Assessment & Plan (1) Psychosis: Status: Acute Code(s): F29 - Unspecified psychosis not due to a substance or known physiological condition Plan Mrs. Sharif is a 69 year-old woman who presents with a 3 month hx of new onset of psychosis (AH) and combination of paranoid delusions and cap gras delusions. No prior psychiatric hx. She does have of cocaine use but apparently had not used in some years. Daughter suspects she may have relapsed but no ongoing use. Pt presents with more complex theme of delusions. No additional medical work up available including head CT. CBC and cmp unremarkable. 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 It may be related to dementia process but complexity of delusions and psychosis not the common presentation for dementia that have psychosis early on such as in vascular dementia or LBD. Pt presents as gravely disable to able to care for self due to symptoms of psychosis and delusions. PLAN 01/21 continues to decline medications, self dialoguing, and paranoid. 01/22 continue tx. pt declines medications, very paranoid and ongoing auditory hallucinations, self dialoguing, agitated. Reason for continued inpatient stay Substantial Risk for: inability to function Time Spent With Patient Time: Total time managing care of this patient today ____ minutes.
[2025-01-22 19:52] VITALS: BP 109/51; PULSE 61; RESP 18; TEMP 36.6; O2SAT 98
[2025-01-23 08:26] VITALS: BP 106/51; PULSE 73; RESP 15; TEMP 36.8; O2SAT 97
--- NOTE | 2025-01-23 11:57 | P.PNPSI_ITS ---
Subjective Subjective Date of Service: 01/23/25 Reason For Visit: Psychosis Interim History: Pt slept most of the night. Pt continues to present as agitated, talking to someone wo is not there thinking someone is trying to harm her son and daughter. Hears her daughter's voice and thinks she is outside of the unit. Yelling at times, refuses medications as times due to fear that they are poison. Medication Compliance: Intermittent Review of Systems Review of Systems Yes Unobtainable due to mental status and Other (patient refused to answer ROS questions) Constitutional: Reports as per HPI Eyes: Reports as per HPI Reports as per HPI Cardiovascular: Reports as per HPI Respiratory: Reports as per HPI Gastrointestinal: Reports as per HPI Musculoskeletal: Reports as per HPI Skin/Breast: Reports as per HPI Reports as per HPI Psychiatric: Reports as per HPI Endocrine: Reports as per HPI Hematologic/Lymphatic: Reports as per HPI Allergic/Immunologic: Reports as per HPI Mental Status Exam Mental Status Exam Narrative: Appearance: wearing hospital gown, fair hygiene, fearful and anxious looking. [place] and needs hearing aids. Behavior: guarded and fearful Psychomotor: no agitation but yelling at times to someone who is not there Speech: mostly clear, regular rate/rhythm/volume, spontaneous TP: goal oriented- wanting to leave TC: paranoid delusions, wanting to go Mood: okay Affect: guarded, suspicious and paranoid SI: denies HI: denies VH/AH: talking to someone who is not there, unclear if seeing person as well. Delusions: paranoid/persecutory delusions. cap gras delusions. Diagnostics Vital Signs (24Hr): Vital Signs - 24 hr 01/22/25 19:52 01/23/25 08:26 Temperature 97.9 F 98.2 F Pulse Rate 61 73 Respiratory Rate 18 15 Blood Pressure 109/51 L 106/51 L Pulse Oximetry 98 97 Oxygen Delivery Method Room Air Room Air BMI result Body Mass Index 28.3 Labs 01/19/25 12:57 01/19/25 12:57 Medications Medications Current Medications Acetaminophen (Acetaminophen 325 Mg Tablet) 650 mg PO Q6H PRN PRN Reason: Headache/Pain, Scale 1-10 Last Admin: 01/22/25 16:06 Dose: 650 mg Al Hydroxide/Mg Hydroxide (Magnesium Hydrox/Alum Hydrox 30 Ml Oral.Susp) 30 ml PO Q6H PRN PRN Reason: Heartburn/Nausea Albuterol Sulfate (Albuterol Sulfate 90 Mcg 8 Gm Inhaler) 2 puff INHALE Q4H PRN PRN Reason: Shortness Of Breath Or Wheezing Atorvastatin Calcium (Atorvastatin Calcium 40 Mg Tablet) 40 mg PO DAILY [facility] Last Admin: 01/23/25 08:29 Dose: Not Given Fluticasone/Vilanterol (Fluticasone/Vilanterol 200/25 Blst.W.Dev) 1 puff INHALE RDAILY [facility] Last Admin: 01/23/25 08:29 Dose: Not Given Hydrochlorothiazide (Hydrochlorothiazide 25 Mg Tablet) 25 mg PO DAILY [facility] Last Admin: 01/23/25 08:29 Dose: Not Given Levetiracetam (Levetiracetam 500 Mg Tablet) 500 mg PO BID [facility] Last Admin: 01/23/25 08:29 Dose: Not Given Magnesium Hydroxide (Milk Of Magnesia 30 Ml Oral.Susp) 30 ml PO DAILY PRN PRN Reason: Constipation Methimazole (Methimazole 5 Mg Tablet) 5 mg PO DAILY [facility] Last Admin: 01/23/25 08:29 Dose: Not Given Nifedipine (Nifedipine Er 30 Mg Tab.Er.24) 30 mg PO DAILY [facility]; Protocol Last Admin: 01/23/25 08:29 Dose: Not Given Non-Formulary Medication (Terbinafine Hcl) 250 mg PO DAILY [facility] Olanzapine (Olanzapine 10 Mg Tablet) 10 mg PO Q6H PRN PRN Reason: severe agitation Last Admin: 01/22/25 22:55 Dose: 10 mg Risperidone (Risperidone 1 Mg Tablet) 1 mg PO BID [facility] Last Admin: 01/23/25 09:09 Dose: 1 mg Tiotropium [place] (Tiotropium [place] 2.5 Mcg 1 Puff/2.5 Mcg Mist.Inhal) 1 puff INHALE RDAILY [facility] Last Admin: 01/23/25 08:29 Dose: Not Given Trazodone HCl (Trazodone Hcl 50 Mg Tablet) 50 mg PO BEDTIME MRX1 PRN PRN Reason: Insomnia Last Admin: 01/22/25 22:55 Dose: 50 mg Allergies Allergies Allergy/AdvReac Type Severity Reaction Status Date / Time latex Allergy Unknown Verified 01/16/25 20:11 peanut Allergy Unknown Verified 01/16/25 20:11 Penicillins Allergy Unknown Verified 01/16/25 20:11 Assessment & Plan Assessment & Plan (1) Psychosis: Status: Acute Code(s): F29 - Unspecified psychosis not due to a substance or known physiological condition Plan Mrs. Sharif is a 69 year-old woman who presents with a 3 month hx of new onset of psychosis (AH) and combination of paranoid delusions and cap gras delusions. No prior psychiatric hx. She does have of cocaine use but apparently had not used in some years. Daughter suspects she may have relapsed but no ongoing use. Pt presents with more complex theme of delusions. No additional medical work up available including head CT. CBC and cmp unremarkable. 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 It may be related to dementia process but complexity of delusions and psychosis not the common presentation for dementia that have psychosis early on such as in vascular dementia or LBD. Pt presents as gravely disable to able to care for self due to symptoms of psychosis and delusions. PLAN 01/21 continues to decline medications, self dialoguing, and paranoid. 01/22 continue tx. pt declines medications, very paranoid and ongoing auditory hallucinations, self dialoguing, agitated. 01/23 scheduled risperidone 1mg po BID, Reason for continued inpatient stay Substantial Risk for: inability to function Time Spent With Patient Time: Total time managing care of this patient today ____ minutes.
[2025-01-23 20:00] VITALS: BP 128/58; PULSE 75; RESP 18; TEMP 36.8; O2SAT 97
[2025-01-24 08:00] VITALS: BP 142/65; PULSE 63; RESP 18; TEMP 36.6; O2SAT 96
[2025-01-24 08:38] VITALS: BP 142/65
[2025-01-24] MEDS: NIFEdipine ER 30 MG TAB.ER.24 PO (08:38)
[2025-01-24 08:39] VITALS: BP 142/65
[2025-01-24] MEDS: Fluticasone/Vilanterol 200/25 BLST.W.DEV 1 PUFF INHALE (08:39)
[2025-01-24] MEDS: Tiotropium Bromide 2.5 mcg 1 PUFF/2.5 MCG MIST.INHAL INHALE (08:39)
--- NOTE | 2025-01-24 19:19 | P.PNPSI_ITS ---
Subjective Subjective Date of Service: 01/25/25 Reason For Visit: Psychosis Interim History: Pt slept most of the night. Pt continues to present as agitated, talking to someone wo is not there thinking someone is trying to harm her son and daughter. Hears her daughter's voice and thinks she is outside of the unit. Yelling at times, refuses medications as times due to fear that they are poison. Review of Systems Review of Systems Yes Unobtainable due to mental status and Other (patient refused to answer ROS questions) Constitutional: Reports as per HPI Eyes: Reports as per HPI Reports as per HPI Cardiovascular: Reports as per HPI Respiratory: Reports as per HPI Gastrointestinal: Reports as per HPI Musculoskeletal: Reports as per HPI Skin/Breast: Reports as per HPI Reports as per HPI Psychiatric: Reports as per HPI Endocrine: Reports as per HPI Hematologic/Lymphatic: Reports as per HPI Allergic/Immunologic: Reports as per HPI Mental Status Exam Mental Status Exam Narrative: Appearance: wearing hospital gown, fair hygiene, fearful and anxious looking. [place] and needs hearing aids. Behavior: guarded and fearful Psychomotor: no agitation but yelling at times to someone who is not there Speech: mostly clear, regular rate/rhythm/volume, spontaneous TP: goal oriented- wanting to leave TC: paranoid delusions, wanting to go Mood: okay Affect: guarded, suspicious and paranoid SI: denies HI: denies VH/AH: talking to someone who is not there, unclear if seeing person as well. Delusions: paranoid/persecutory delusions. cap gras delusions. Diagnostics Vital Signs (24Hr): Vital Signs - 24 hr 01/23/25 20:00 01/24/25 08:00 01/24/25 08:38 Temperature 98.2 F 97.9 F Pulse Rate 75 63 Respiratory Rate 18 18 Blood Pressure 128/58 L 142/65 H 142/65 H Pulse Oximetry 97 96 Oxygen Delivery Method Room Air Room Air 01/24/25 08:39 Temperature Pulse Rate Respiratory Rate Blood Pressure 142/65 H Pulse Oximetry Oxygen Delivery Method BMI result Body Mass Index 28.3 Labs 01/19/25 12:57 01/19/25 12:57 Medications Medications Current Medications Acetaminophen (Acetaminophen 325 Mg Tablet) 650 mg PO Q6H PRN PRN Reason: Headache/Pain, Scale 1-10 Last Admin: 01/23/25 20:57 Dose: 650 mg Al Hydroxide/Mg Hydroxide (Magnesium Hydrox/Alum Hydrox 30 Ml Oral.Susp) 30 ml PO Q6H PRN PRN Reason: Heartburn/Nausea Albuterol Sulfate (Albuterol Sulfate 90 Mcg 8 Gm Inhaler) 2 puff INHALE Q4H PRN PRN Reason: Shortness Of Breath Or Wheezing Atorvastatin Calcium (Atorvastatin Calcium 40 Mg Tablet) 40 mg PO DAILY [facility] Last Admin: 01/24/25 08:34 Dose: 40 mg Fluticasone/Vilanterol (Fluticasone/Vilanterol 200/25 Blst.W.Dev) 1 puff INHALE RDAILY [facility] Last Admin: 01/24/25 08:39 Dose: 1 puff Hydrochlorothiazide (Hydrochlorothiazide 25 Mg Tablet) 25 mg PO DAILY [facility] Last Admin: 01/24/25 08:39 Dose: 25 mg Levetiracetam (Levetiracetam 500 Mg Tablet) 500 mg PO BID [facility] Last Admin: 01/24/25 08:35 Dose: 500 mg Magnesium Hydroxide (Milk Of Magnesia 30 Ml Oral.Susp) 30 ml PO DAILY PRN PRN Reason: Constipation Methimazole (Methimazole 5 Mg Tablet) 5 mg PO DAILY [facility] Last Admin: 01/24/25 08:34 Dose: 5 mg Nifedipine (Nifedipine Er 30 Mg Tab.Er.24) 30 mg PO DAILY [facility]; Protocol Last Admin: 01/24/25 08:38 Dose: 30 mg Non-Formulary Medication (Terbinafine Hcl) 250 mg PO DAILY [facility] Olanzapine (Olanzapine 10 Mg Tablet) 10 mg PO Q6H PRN PRN Reason: severe agitation Last Admin: 01/23/25 20:59 Dose: 10 mg Risperidone (Risperidone 1 Mg Tablet) 1 mg PO BID [facility] Last Admin: 01/24/25 08:35 Dose: 1 mg Tiotropium [place] (Tiotropium [place] 2.5 Mcg 1 Puff/2.5 Mcg Mist.Inhal) 1 puff INHALE RDAILY [facility] Last Admin: 01/24/25 08:39 Dose: 1 puff Trazodone HCl (Trazodone Hcl 50 Mg Tablet) 50 mg PO BEDTIME MRX1 PRN PRN Reason: Insomnia Last Admin: 01/22/25 22:55 Dose: 50 mg Allergies Allergies Allergy/AdvReac Type Severity Reaction Status Date / Time latex Allergy Unknown Verified 01/16/25 20:11 peanut Allergy Unknown Verified 01/16/25 20:11 Penicillins Allergy Unknown Verified 01/16/25 20:11 Assessment & Plan Assessment & Plan (1) Psychosis: Status: Acute Code(s): F29 - Unspecified psychosis not due to a substance or known physiological condition Plan Mrs. Sharif is a 69 year-old woman who presents with a 3 month hx of new onset of psychosis (AH) and combination of paranoid delusions and cap gras delusions. No prior psychiatric hx. She does have of cocaine use but apparently had not used in some years. Daughter suspects she may have relapsed but no ongoing use. Pt presents with more complex theme of delusions. No additional medical work up available including head CT. CBC and cmp unremarkable. 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 It may be related to dementia process but complexity of delusions and psychosis not the common presentation for dementia that have psychosis early on such as in vascular dementia or LBD. Pt presents as gravely disable to able to care for self due to symptoms of psychosis and delusions. PLAN 01/21 continues to decline medications, self dialoguing, and paranoid. 01/22 continue tx. pt declines medications, very paranoid and ongoing auditory hallucinations, self dialoguing, agitated. 01/23 continue risperidone 1mg po BID 01/24 taking medications more consistently but still very paranoid and psychotic. Reason for continued inpatient stay Substantial Risk for: inability to function Time Spent With Patient Time: Total time managing care of this patient today ____ minutes.
[2025-01-24 20:00] VITALS: RESP 18
[2025-01-25] MEDS: Fluticasone/Vilanterol 200/25 BLST.W.DEV 1 PUFF INHALE (08:26)
[2025-01-25] MEDS: Tiotropium Bromide 2.5 mcg 1 PUFF/2.5 MCG MIST.INHAL INHALE (08:26)
[2025-01-25 08:28] VITALS: BP 126/60; PULSE 63; RESP 16; TEMP 36.4; O2SAT 90
[2025-01-25] MEDS: NIFEdipine ER 30 MG TAB.ER.24 PO (08:29)
--- NOTE | 2025-01-25 16:20 | P.PNPSI_ITS ---
Subjective Subjective Date of Service: 01/25/25 Reason For Visit: Psychosis Subjective Notes: Section 7 Interim History: Pt slept most of the night. Pt yelling at this technical document writer stating that I planned to kill her son. She continues to self dialogue, hearing voice of her daughter who she cnotinues to think is outside of the unit. She is slightly calmer, and has taken some of the medications more consistently but still not able to care for herself. Review of Systems Review of Systems Yes Unobtainable due to mental status and Other (patient refused to answer ROS questions) Constitutional: Reports as per HPI Eyes: Reports as per HPI Reports as per HPI Cardiovascular: Reports as per HPI Respiratory: Reports as per HPI Gastrointestinal: Reports as per HPI Musculoskeletal: Reports as per HPI Skin/Breast: Reports as per HPI Reports as per HPI Psychiatric: Reports as per HPI Endocrine: Reports as per HPI Hematologic/Lymphatic: Reports as per HPI Allergic/Immunologic: Reports as per HPI Mental Status Exam Mental Status Exam Narrative: Appearance: wearing hospital gown, fair hygiene, fearful and anxious looking. [place] and needs hearing aids. Behavior: guarded and fearful Psychomotor: no agitation but yelling at times to someone who is not there Speech: mostly clear, regular rate/rhythm/volume, spontaneous TP: goal oriented- wanting to leave TC: paranoid delusions, wanting to go Mood: okay Affect: guarded, suspicious and paranoid SI: denies HI: denies VH/AH: talking to someone who is not there, unclear if seeing person as well. Delusions: paranoid/persecutory delusions. cap gras delusions. Diagnostics Vital Signs (24Hr): Vital Signs - 24 hr 01/24/25 20:00 01/25/25 08:28 Temperature 97.5 F Pulse Rate 63 Respiratory Rate 18 16 Blood Pressure 126/60 Pulse Oximetry 90 L Oxygen Delivery Method Room Air BMI result Body Mass Index 28.3 Labs 01/19/25 12:57 01/19/25 12:57 Medications Medications Current Medications Acetaminophen (Acetaminophen 325 Mg Tablet) 650 mg PO Q6H PRN PRN Reason: Headache/Pain, Scale 1-10 Last Admin: 01/23/25 20:57 Dose: 650 mg Al Hydroxide/Mg Hydroxide (Magnesium Hydrox/Alum Hydrox 30 Ml Oral.Susp) 30 ml PO Q6H PRN PRN Reason: Heartburn/Nausea Albuterol Sulfate (Albuterol Sulfate 90 Mcg 8 Gm Inhaler) 2 puff INHALE Q4H PRN PRN Reason: Shortness Of Breath Or Wheezing Atorvastatin Calcium (Atorvastatin Calcium 40 Mg Tablet) 40 mg PO DAILY [facility] Last Admin: 01/25/25 08:27 Dose: 40 mg Clonazepam (Clonazepam Odt 0.5 Mg Tab.Rapdis) 0.5 mg PO BID [facility] Fluticasone/Vilanterol (Fluticasone/Vilanterol 200/25 Blst.W.Dev) 1 puff INHALE RDAILY [facility] Last Admin: 01/25/25 08:26 Dose: 1 puff Hydrochlorothiazide (Hydrochlorothiazide 25 Mg Tablet) 25 mg PO DAILY [facility] Last Admin: 01/25/25 08:27 Dose: 25 mg Levetiracetam (Levetiracetam 500 Mg Tablet) 500 mg PO BID [facility] Last Admin: 01/25/25 08:27 Dose: 500 mg Magnesium Hydroxide (Milk Of Magnesia 30 Ml Oral.Susp) 30 ml PO DAILY PRN PRN Reason: Constipation Methimazole (Methimazole 5 Mg Tablet) 5 mg PO DAILY [facility] Last Admin: 01/25/25 08:27 Dose: 5 mg Nifedipine (Nifedipine Er 30 Mg Tab.Er.24) 30 mg PO DAILY [facility]; Protocol Last Admin: 01/25/25 08:29 Dose: 30 mg Olanzapine (Olanzapine 10 Mg Tablet) 10 mg PO Q6H PRN PRN Reason: severe agitation Last Admin: 01/24/25 21:03 Dose: 10 mg Risperidone (Risperidone 2 Mg Tablet) 2 mg PO BID [facility] Tiotropium [place] (Tiotropium [place] 2.5 Mcg 1 Puff/2.5 Mcg Mist.Inhal) 1 puff INHALE RDAILY [facility] Last Admin: 01/25/25 08:26 Dose: 1 puff Trazodone HCl (Trazodone Hcl 50 Mg Tablet) 50 mg PO BEDTIME MRX1 PRN PRN Reason: Insomnia Last Admin: 01/24/25 21:03 Dose: 50 mg Allergies Allergies Allergy/AdvReac Type Severity Reaction Status Date / Time latex Allergy Unknown Verified 01/16/25 20:11 peanut Allergy Unknown Verified 01/16/25 20:11 Penicillins Allergy Unknown Verified 01/16/25 20:11 Assessment & Plan Assessment & Plan (1) Psychosis: Status: Acute Code(s): F29 - Unspecified psychosis not due to a substance or known physiological condition Plan Mrs. Sharif is a 69 year-old woman who presents with a 3 month hx of new onset of psychosis (AH) and combination of paranoid delusions and cap gras delusions. No prior psychiatric hx. She does have of cocaine use but apparently had not used in some years. Daughter suspects she may have relapsed but no ongoing use. Pt presents with more complex theme of delusions. No additional medical work up available including head CT. CBC and cmp unremarkable. 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 It may be related to dementia process but complexity of delusions and psychosis not the common presentation for dementia that have psychosis early on such as in vascular dementia or LBD. Pt presents as gravely disable to able to care for self due to symptoms of psychosis and delusions. PLAN 01/21 continues to decline medications, self dialoguing, and paranoid. 01/22 continue tx. pt declines medications, very paranoid and ongoing auditory hallucinations, self dialoguing, agitated. 01/23 continue risperidone 1mg po BID 01/24 taking medications more consistently but still very paranoid and psychotic. 01/25 increase risperidone 2mg po BID Reason for continued inpatient stay Substantial Risk for: inability to function Time Spent With Patient Time: Total time managing care of this patient today ____ minutes.
[2025-01-25 20:00] VITALS: BP 115/60; PULSE 66; RESP 16; TEMP 36.5; O2SAT 94
[2025-01-25] MEDS: clonazePAM ODT 0.5 MG TAB.RAPDIS PO (21:11)
[2025-01-26 08:00] VITALS: BP 124/58; PULSE 64; RESP 16; TEMP 36.4; O2SAT 95
[2025-01-26] MEDS: NIFEdipine ER 30 MG TAB.ER.24 PO (08:07)
[2025-01-26] MEDS: clonazePAM ODT 0.5 MG TAB.RAPDIS PO ×2 (08:24→20:35)
[2025-01-26] MEDS: Tiotropium Bromide 2.5 mcg 1 PUFF/2.5 MCG MIST.INHAL INHALE (08:28)
[2025-01-26] MEDS: Fluticasone/Vilanterol 200/25 BLST.W.DEV 1 PUFF INHALE (08:29)
--- NOTE | 2025-01-26 09:59 | P.PNPSI_ITS ---
Subjective Subjective Date of Service: 01/26/25 Reason For Visit: Psychosis Subjective Notes: Section 7 Interim History: Pt taking medications more consistently but continues to hear voices and seen self dialoguing. She continues to think her children are being killed. She is calmer, She does have some dystonia related to increase in risperidone, will lower dose and add cogentin. She has no insight into need for psychiatric treatment stating she was forced to come here because someone wants to hurt her. Review of Systems Review of Systems Yes Unobtainable due to mental status and Other (patient refused to answer ROS questions) Constitutional: Reports as per HPI Eyes: Reports as per HPI Reports as per HPI Cardiovascular: Reports as per HPI Respiratory: Reports as per HPI Gastrointestinal: Reports as per HPI Musculoskeletal: Reports as per HPI Skin/Breast: Reports as per HPI Reports as per HPI Psychiatric: Reports as per HPI Endocrine: Reports as per HPI Hematologic/Lymphatic: Reports as per HPI Allergic/Immunologic: Reports as per HPI Mental Status Exam Mental Status Exam Narrative: Appearance: wearing hospital gown, fair hygiene, fearful and anxious looking. [place] and needs hearing aids. Behavior: guarded and fearful Psychomotor: no agitation but yelling at times to someone who is not there Speech: mostly clear, regular rate/rhythm/volume, spontaneous TP: goal oriented- wanting to leave TC: paranoid delusions, wanting to go Mood: okay Affect: guarded, suspicious and paranoid SI: denies HI: denies VH/AH: talking to someone who is not there, unclear if seeing person as well. Delusions: paranoid/persecutory delusions. cap gras delusions. Diagnostics Vital Signs (24Hr): Vital Signs - 24 hr 01/25/25 20:00 01/26/25 08:00 Temperature 97.7 F 97.5 F Pulse Rate 66 64 Respiratory Rate 16 16 Blood Pressure 115/60 124/58 L Pulse Oximetry 94 95 Oxygen Delivery Method Room Air Room Air BMI result Body Mass Index 28.3 Labs 01/19/25 12:57 01/19/25 12:57 Medications Medications Current Medications Acetaminophen (Acetaminophen 325 Mg Tablet) 650 mg PO Q6H PRN PRN Reason: Headache/Pain, Scale 1-10 Last Admin: 01/23/25 20:57 Dose: 650 mg Al Hydroxide/Mg Hydroxide (Magnesium Hydrox/Alum Hydrox 30 Ml Oral.Susp) 30 ml PO Q6H PRN PRN Reason: Heartburn/Nausea Albuterol Sulfate (Albuterol Sulfate 90 Mcg 8 Gm Inhaler) 2 puff INHALE Q4H PRN PRN Reason: Shortness Of Breath Or Wheezing Atorvastatin Calcium (Atorvastatin Calcium 40 Mg Tablet) 40 mg PO DAILY [facility] Last Admin: 01/26/25 08:25 Dose: 40 mg Clonazepam (Clonazepam Odt 0.5 Mg Tab.Rapdis) 0.5 mg PO BID [facility] Last Admin: 01/26/25 08:24 Dose: 0.5 mg Fluticasone/Vilanterol (Fluticasone/Vilanterol 200/25 Blst.W.Dev) 1 puff INHALE RDAILY [facility] Last Admin: 01/26/25 08:29 Dose: 1 puff Hydrochlorothiazide (Hydrochlorothiazide 25 Mg Tablet) 25 mg PO DAILY [facility] Last Admin: 01/26/25 08:25 Dose: 25 mg Levetiracetam (Levetiracetam 500 Mg Tablet) 500 mg PO BID [facility] Last Admin: 01/26/25 08:24 Dose: 500 mg Magnesium Hydroxide (Milk Of Magnesia 30 Ml Oral.Susp) 30 ml PO DAILY PRN PRN Reason: Constipation Methimazole (Methimazole 5 Mg Tablet) 5 mg PO DAILY [facility] Last Admin: 01/26/25 08:25 Dose: 5 mg Nifedipine (Nifedipine Er 30 Mg Tab.Er.24) 30 mg PO DAILY [facility]; Protocol Last Admin: 01/26/25 08:24 Dose: 30 mg Olanzapine (Olanzapine 10 Mg Tablet) 10 mg PO Q6H PRN PRN Reason: severe agitation Last Admin: 01/24/25 21:03 Dose: 10 mg Risperidone (Risperidone 2 Mg Tablet) 2 mg PO BID [facility] Last Admin: 01/26/25 08:24 Dose: 2 mg Tiotropium [place] (Tiotropium [place] 2.5 Mcg 1 Puff/2.5 Mcg Mist.Inhal) 1 puff INHALE RDAILY [facility] Last Admin: 01/26/25 08:28 Dose: 1 puff Trazodone HCl (Trazodone Hcl 50 Mg Tablet) 50 mg PO BEDTIME MRX1 PRN PRN Reason: Insomnia Last Admin: 01/24/25 21:03 Dose: 50 mg Allergies Allergies Allergy/AdvReac Type Severity Reaction Status Date / Time latex Allergy Unknown Verified 01/16/25 20:11 peanut Allergy Unknown Verified 01/16/25 20:11 Penicillins Allergy Unknown Verified 01/16/25 20:11 Assessment & Plan Assessment & Plan (1) Psychosis: Status: Acute Code(s): F29 - Unspecified psychosis not due to a substance or known physiological condition Plan Mrs. Sharif is a 69 year-old woman who presents with a 3 month hx of new onset of psychosis (AH) and combination of paranoid delusions and cap gras delusions. No prior psychiatric hx. She does have of cocaine use but apparently had not used in some years. Daughter suspects she may have relapsed but no ongoing use. Pt presents with more complex theme of delusions. No additional medical work up available including head CT. CBC and cmp unremarkable. 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 It may be related to dementia process but complexity of delusions and psychosis not the common presentation for dementia that have psychosis early on such as in vascular dementia or LBD. Pt presents as gravely disable to able to care for self due to symptoms of psychosis and delusions. PLAN 01/21 continues to decline medications, self dialoguing, and paranoid. 01/22 continue tx. pt declines medications, very paranoid and ongoing auditory hallucinations, self dialoguing, agitated. 01/23 continue risperidone 1mg po BID 01/24 taking medications more consistently but still very paranoid and psychotic. 01/25 increase risperidone 2mg po BID 01/26 EPS noted, dystonia with increase in dose of risperidone, will lower back to 1mg po BID and add cogentin 0.5mg po BID Reason for continued inpatient stay Substantial Risk for: inability to function Time Spent With Patient Time: Total time managing care of this patient today ____ minutes.
--- NOTE | 2025-01-26 15:35 | PC.NURSE ---
Very upset because she is drooling but refuwsed to take extra dose of benzotropine, provider jennyfer texted
[2025-01-26 20:00] VITALS: BP 117/55; PULSE 72; RESP 18; TEMP 36.1; O2SAT 97
[2025-01-27 08:00] VITALS: BP 116/57; PULSE 60; TEMP 36.5
[2025-01-27] MEDS: clonazePAM ODT 0.5 MG TAB.RAPDIS PO ×2 (08:03→20:16)
[2025-01-27 08:12] VITALS: BP 116/57
[2025-01-27] MEDS: Tiotropium Bromide 2.5 mcg 1 PUFF/2.5 MCG MIST.INHAL INHALE (10:53)
[2025-01-27] MEDS: Fluticasone/Vilanterol 200/25 BLST.W.DEV 1 PUFF INHALE (10:53)
[2025-01-27 12:17] VITALS: RESP 17
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
[2025-01-27 20:00] VITALS: BP 123/58; PULSE 63; RESP 16; TEMP 36.4; O2SAT 100
[2025-01-28 08:16] VITALS: BP 144/62; PULSE 67; RESP 16; TEMP 35.9; O2SAT 98
[2025-01-28] MEDS: Fluticasone/Vilanterol 200/25 BLST.W.DEV 1 PUFF INHALE (08:19)
[2025-01-28] MEDS: clonazePAM ODT 0.5 MG TAB.RAPDIS PO (08:20)
[2025-01-28] MEDS: NIFEdipine ER 30 MG TAB.ER.24 PO (08:20)
[2025-01-28] MEDS: Tiotropium Bromide 2.5 mcg 1 PUFF/2.5 MCG MIST.INHAL INHALE (08:22)
--- NOTE | 2025-01-28 15:47 | P.PNPSI_ITS ---
Subjective Subjective Date of Service: 01/28/25 Reason For Visit: Psychosis Subjective Notes: Conditional Voluntary Interim History: Patient slept for 8 hours, was medication compliant, observed visible in the day room but isolated herself, appeared to be slightly sedated, engageable. However she is not having the hearing aid on, therefore talk to communicate with her. I tried to write down and answer some questions. Very poor concentrated and focused, denies pain. She refused to go with me to the exam room for the check- in as the other room was occupied no I am not coming in there with you. I am waiting for my daughter . She thinks daughters coming to visit however no one comes to visit her today. She felt very disorganized, do not remember wish her hearing aids, tell me different stories about where the hearing aid should be, other time she said that it was left at the other place. There is no medication change today. Risperidone has been decreased a couple days ago by previous attending due to dystonia. She appeared to be quiet, depressed, paranoid, but not yelling loudly. Medication Compliance: Yes Side effects from medications: No (However, appears to be sligghtly sedated ) Attending Groups: No Review of Systems Acute medical concerns: No Medical Review of Systems: unchanged Review of Systems Review of Systems Yes Unobtainable due to mental status and Other (patient refused to answer ROS questions) Constitutional: Reports as per HPI Eyes: Reports as per HPI Reports as per HPI Cardiovascular: Reports as per HPI Respiratory: Reports as per HPI Gastrointestinal: Reports as per HPI Musculoskeletal: Reports as per HPI Skin/Breast: Reports as per HPI Reports as per HPI Psychiatric: Reports as per HPI Endocrine: Reports as per HPI Hematologic/Lymphatic: Reports as per HPI Allergic/Immunologic: Reports as per HPI Mental Status Exam Mental Status Exam Narrative: Appearance: wearing own clothes with black t-shirt on, fair hygiene, anxious looking. [place] and needs hearing aids. but not wearing it t the assessment. Behavior: guarded, paranoid Psychomotor: no agitation, not yelling louldy, more quiet, less self dialoge Speech: mostly clear, regular rate/rhythm/volume. TP: not able to assess. However appears to wait for someone to visit her. TC: paranoid, focused on sister to visit. Due to hearing aid available for her, she is not able to hear and answer appropriately to the question Mood: i am good . Yes to depressed when write down on the paper. Affect: guarded, suspicious and paranoid. Not standing at the exist door like [facility] did last night. SI/SIB/HI/AVHVH: Not able to assess due to mental status, however she appears to be safe on the unit, no self-harm behavior. With minimum of self dialogue. Patient is paranoid, suspicious Judgement and Insight: poor Diagnostics Vital Signs (24Hr): Vital Signs - 24 hr 01/27/25 20:00 01/28/25 08:16 Temperature 97.5 F 96.7 F L Pulse Rate 63 67 Respiratory Rate 16 16 Blood Pressure 123/58 L 144/62 H Pulse Oximetry 100 98 Oxygen Delivery Method Room Air Room Air BMI result Body Mass Index 28.3 Labs 01/19/25 12:57 01/19/25 12:57 Medications Medications Current Medications Acetaminophen (Acetaminophen 325 Mg Tablet) 650 mg PO Q6H PRN PRN Reason: Headache/Pain, Scale 1-10 Last Admin: 01/23/25 20:57 Dose: 650 mg Al Hydroxide/Mg Hydroxide (Magnesium Hydrox/Alum Hydrox 30 Ml Oral.Susp) 30 ml PO Q6H PRN PRN Reason: Heartburn/Nausea Albuterol Sulfate (Albuterol Sulfate 90 Mcg 8 Gm Inhaler) 2 puff INHALE Q4H PRN PRN Reason: Shortness Of Breath Or Wheezing Atorvastatin Calcium (Atorvastatin Calcium 40 Mg Tablet) 40 mg PO DAILY [facility] Last Admin: 01/28/25 08:20 Dose: 40 mg Benztropine Mesylate (Benztropine Mesylate 0.5 Mg Tablet) 0.5 mg PO BID [facility] Last Admin: 01/28/25 08:21 Dose: 0.5 mg Clonazepam (Clonazepam Odt 0.5 Mg Tab.Rapdis) 0.5 mg PO BID [facility] Last Admin: 01/28/25 08:20 Dose: 0.5 mg Fluticasone/Vilanterol (Fluticasone/Vilanterol 200/25 Blst.W.Dev) 1 puff INHALE RDAILY [facility] Last Admin: 01/28/25 08:19 Dose: 1 puff Guaifenesin (Guaifenesin 200 Mg/10 Ml 10 Ml Liquid) 10 ml PO Q6H PRN PRN Reason: Cough Hydrochlorothiazide (Hydrochlorothiazide 25 Mg Tablet) 25 mg PO DAILY [facility] Last Admin: 01/28/25 08:19 Dose: 25 mg Levetiracetam (Levetiracetam 500 Mg Tablet) 500 mg PO BID [facility] Last Admin: 01/28/25 08:20 Dose: 500 mg Magnesium Hydroxide (Milk Of Magnesia 30 Ml Oral.Susp) 30 ml PO DAILY PRN PRN Reason: Constipation Methimazole (Methimazole 5 Mg Tablet) 5 mg PO DAILY [facility] Last Admin: 01/28/25 08:21 Dose: 5 mg Nifedipine (Nifedipine Er 30 Mg Tab.Er.24) 30 mg PO DAILY [facility]; Protocol Last Admin: 01/28/25 08:20 Dose: 30 mg Olanzapine (Olanzapine 10 Mg Tablet) 10 mg PO Q6H PRN PRN Reason: severe agitation Last Admin: 01/24/25 21:03 Dose: 10 mg Risperidone (Risperidone 1 Mg Tablet) 1 mg PO BID [facility] Last Admin: 01/28/25 08:19 Dose: 1 mg Tiotropium [place] (Tiotropium [place] 2.5 Mcg 1 Puff/2.5 Mcg Mist.Inhal) 1 puff INHALE RDAILY [facility] Last Admin: 01/28/25 08:22 Dose: 1 puff Trazodone HCl (Trazodone Hcl 50 Mg Tablet) 50 mg PO BEDTIME MRX1 PRN PRN Reason: Insomnia Last Admin: 01/27/25 20:16 Dose: 50 mg Allergies Allergies Allergy/AdvReac Type Severity Reaction Status Date / Time latex Allergy Unknown Verified 01/16/25 20:11 peanut Allergy Unknown Verified 01/16/25 20:11 Penicillins Allergy Unknown Verified 01/16/25 20:11 Assessment & Plan Assessment & Plan (1) Psychosis: Status: Acute Code(s): F29 - Unspecified psychosis not due to a substance or known physiological condition Plan Mrs. Sharif is a 69 year-old woman who presents with a 3 month hx of new onset of psychosis (AH) and combination of paranoid delusions and cap gras delusions. No prior psychiatric hx. She does have of cocaine use but apparently had not used in some years. Daughter suspects she may have relapsed but no ongoing use. Pt presents with more complex theme of delusions. No additional medical work up available including head CT. CBC and cmp unremarkable. 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 It may be related to dementia process but complexity of delusions and psychosis not the common presentation for dementia that have psychosis early on such as in vascular dementia or LBD. Pt presents as gravely disable to able to care for self due to symptoms of psychosis and delusions. PLAN 01/21 continues to decline medications, self dialoguing, and paranoid. 01/22 continue tx. pt declines medications, very paranoid and ongoing auditory hallucinations, self dialoguing, agitated. 01/23 continue risperidone 1mg po BID 01/24 taking medications more consistently but still very paranoid and psychotic. 01/25 increase risperidone 2mg po BID 01/26 risperidone lowered due to to dystonia, back to 1mg po BID added cogentin 0.5mg po BID and clonazepam 0.5mg po BID for anxiety s/s to paranoid delusions 01/27 continue tx. 01/28/25: Inherited patient today, visible most of the time in day room, engageable but not social with orders. Not yelling loudly, slightly elevated sitting by herself at the table sometimes. Slept for 8 hours and was medication compliant, appear to be delusional, paranoid suspicious. Observe not self dialogue a lot, not yelling out loud, not exist seeking this morning. Expecting daughter to come visit however is not the case. Slightly sedated. Walking with normal gait. Continue to monitor for mental status change and continue with current treatment plan. Court schedule for January 29 per treatment team Patient educated on: other (Not able to educate patient on the medications risks and benefits due to mental status. ) Informed Consent: further education needed Reason for continued inpatient stay Substantial Risk for: med/psych decompensation Time Spent With Patient Time: Total time managing care of this patient today ____ minutes.
[2025-01-28 20:00] VITALS: BP 125/59; PULSE 66; RESP 16; TEMP 36.6; O2SAT 95
[2025-01-29] MEDS: clonazePAM ODT 0.5 MG TAB.RAPDIS PO ×2 (08:46→20:05)
[2025-01-29 08:48] VITALS: BP 111/58; PULSE 75; RESP 18; TEMP 36.5; O2SAT 98
[2025-01-29] MEDS: NIFEdipine ER 30 MG TAB.ER.24 PO (08:49)
[2025-01-29 14:01] VITALS: BMI 29.5
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
[2025-01-29 20:00] VITALS: BP 119/56; PULSE 72; RESP 17; TEMP 36.6; O2SAT 100
[2025-01-30 08:13] VITALS: BP 126/55; PULSE 68; RESP 16; TEMP 36.4; O2SAT 96
--- NOTE | 2025-01-30 08:14 | HO.PSYCHPN ---
Subjective Subjective Date of Service: 01/30/25 Reason For Visit: Psychosis Interim History: met with patient. Discussed with nursing. 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 Has been fearful her children are in danger but this is slightly less thing. Is alert and oriented. Also some disorganized behavior for example went into the shower, but did not get under the water but did change clothing. With commercial underwriter did have minimal engagement. With written communication stated she was waiting for somebody, but unable to give details on same, when commercial underwriter asked if there was anything I could help with or if she had any concerns. Is accepting scheduled Risperdal Medication Compliance: Yes Side effects from medications: No Attending Groups: Intermittent Review of Systems Acute medical concerns: No Review of Systems Review of Systems nothing acute Mental Status Exam Mental Status Exam Narrative: Appearance: wearing hospital gown, fair hygiene, fearful and anxious looking. 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 Behavior: guarded and fearful Psychomotor: no agitation but talking at times to someone who is not there Speech: mostly clear, regular rate/rhythm/volume, spontaneous TP: goal oriented- wanting to leave TC: as per nursing,paranoid delusions, wanting to go home Mood: okay Affect: guarded, suspicious and paranoid SI: denies HI: denies VH/AH: talking to someone who is not there Delusions: paranoid/persecutory delusions Insight/judgment: impaired Memory/cog: alert, oriented to idea that she is in the hospital but not to situation pending memory/cog assessment. Diagnostics Vital Signs (24Hr): Vital Signs - 24 hr 01/29/25 08:48 01/29/25 20:00 01/30/25 08:13 Temperature 97.7 F 97.8 F 97.5 F Pulse Rate 75 72 68 Respiratory Rate 18 17 16 Blood Pressure 111/58 L 119/56 L 126/55 L Pulse Oximetry 98 100 96 Oxygen Delivery Method Room Air Room Air Room Air BMI result Body Mass Index 29.5 Labs 01/19/25 12:57 01/19/25 12:57 Medications Medications Current Medications Acetaminophen (Acetaminophen 325 Mg Tablet) 650 mg PO Q6H PRN PRN Reason: Headache/Pain, Scale 1-10 Last Admin: 01/29/25 12:32 Dose: 650 mg Al Hydroxide/Mg Hydroxide (Magnesium Hydrox/Alum Hydrox 30 Ml Oral.Susp) 30 ml PO Q6H PRN PRN Reason: Heartburn/Nausea Albuterol Sulfate (Albuterol Sulfate 90 Mcg 8 Gm Inhaler) 2 puff INHALE Q4H PRN PRN Reason: Shortness Of Breath Or Wheezing Atorvastatin Calcium (Atorvastatin Calcium 40 Mg Tablet) 40 mg PO DAILY [facility] Last Admin: 01/29/25 08:46 Dose: 40 mg Benztropine Mesylate (Benztropine Mesylate 0.5 Mg Tablet) 0.5 mg PO BID [facility] Last Admin: 01/29/25 20:05 Dose: 0.5 mg Clonazepam (Clonazepam Odt 0.5 Mg Tab.Rapdis) 0.5 mg PO BID [facility] Last Admin: 01/29/25 20:05 Dose: 0.5 mg Fluticasone/Vilanterol (Fluticasone/Vilanterol 200/25 Blst.W.Dev) 1 puff INHALE RDAILY [facility] Last Admin: 01/29/25 08:56 Dose: Not Given Guaifenesin (Guaifenesin 200 Mg/10 Ml 10 Ml Liquid) 10 ml PO Q6H PRN PRN Reason: Cough Hydrochlorothiazide (Hydrochlorothiazide 25 Mg Tablet) 25 mg PO DAILY [facility] Last Admin: 01/29/25 08:50 Dose: 25 mg Levetiracetam (Levetiracetam 500 Mg Tablet) 500 mg PO BID [facility] Last Admin: 01/29/25 20:05 Dose: 500 mg Magnesium Hydroxide (Milk Of Magnesia 30 Ml Oral.Susp) 30 ml PO DAILY PRN PRN Reason: Constipation Methimazole (Methimazole 5 Mg Tablet) 5 mg PO DAILY [facility] Last Admin: 01/29/25 08:46 Dose: 5 mg Nifedipine (Nifedipine Er 30 Mg Tab.Er.24) 30 mg PO DAILY [facility]; Protocol Last Admin: 01/29/25 08:49 Dose: 30 mg Olanzapine (Olanzapine 10 Mg Tablet) 10 mg PO Q6H PRN PRN Reason: severe agitation Last Admin: 01/29/25 20:05 Dose: 10 mg Risperidone (Risperidone 1 Mg Tablet) 1 mg PO BID [facility] Last Admin: 01/29/25 20:05 Dose: 1 mg Tiotropium [place] (Tiotropium [place] 2.5 Mcg 1 Puff/2.5 Mcg Mist.Inhal) 1 puff INHALE [facility] Last Admin: 01/29/25 08:56 Dose: Not Given Trazodone HCl (Trazodone Hcl 50 Mg Tablet) 50 mg PO BEDTIME MRX1 PRN PRN Reason: Insomnia Last Admin: 01/29/25 20:04 Dose: 50 mg Allergies Allergies Allergy/AdvReac Type Severity Reaction Status Date / Time latex Allergy Unknown Verified 01/16/25 20:11 peanut Allergy Unknown Verified 01/16/25 20:11 Penicillins Allergy Unknown Verified 01/16/25 20:11 Assessment & Plan Assessment & Plan (1) Psychosis: Status: Acute Code(s): F29 - Unspecified psychosis not due to a substance or known physiological condition Plan Mrs. Sharif is a 69 year-old woman who presents with a 3 month hx of new onset of psychosis (AH) and combination of paranoid delusions and cap gras delusions. No prior psychiatric hx. She does have of cocaine use but apparently had not used in some years. Daughter suspects she may have relapsed but no ongoing use. Pt presents with more complex theme of delusions. No additional medical work up available including head CT. CBC and cmp unremarkable. 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 It may be related to dementia process but complexity of delusions and psychosis not the common presentation for dementia that have psychosis early on such as in vascular dementia or LBD. Pt presents as gravely disable to able to care for self due to symptoms of psychosis and delusions. PLAN 01/21 continues to decline medications, self dialoguing, and paranoid. 01/22 continue tx. pt declines medications, very paranoid and ongoing auditory hallucinations, self dialoguing, agitated. 01/23 continue risperidone 1mg po BID 01/24 taking medications more consistently but still very paranoid and psychotic. 01/25 increase risperidone 2mg po BID 01/26 risperidone lowered due to to dystonia, back to 1mg po BID added cogentin 0.5mg po BID and clonazepam 0.5mg po BID for anxiety s/s to paranoid delusions 01/27 continue tx. 01/28/25: Inherited patient today, visible most of the time in day room, engageable but not social with orders. Not yelling loudly, slightly elevated sitting by herself at the table sometimes. Slept for 8 hours and was medication compliant, appear to be delusional, paranoid suspicious. Observe not self dialogue a lot, not yelling out loud, not exist seeking this morning. Expecting daughter to come visit however is not the case. Slightly sedated. Walking with normal gait. Continue to monitor for mental status change and continue with current treatment plan. Court schedule for January 29 per treatment team 01/29/2025: Maintain current treatment regimen Reason for continued inpatient stay Substantial Risk for: inability to function Time Spent With Patient Time: Total time managing care of this patient today ____ minutes.
[2025-01-30] MEDS: NIFEdipine ER 30 MG TAB.ER.24 PO (08:16)
[2025-01-30] MEDS: clonazePAM ODT 0.5 MG TAB.RAPDIS PO ×2 (08:16→21:36)
[2025-01-30 20:00] VITALS: BP 120/60; PULSE 67; RESP 16; TEMP 36.8; O2SAT 96
--- NOTE | 2025-01-31 07:26 | HO.PSYCHPN ---
Subjective Subjective Date of Service: 01/31/25 Reason For Visit: Psychosis Interim History: met with patient. Discussed with nursing. Still talking to her children that are not there, remains fearful kids in danger but less so. Again with ad copy writer minimal engagement even with attempts at written communication- wrote something that was illegible and then sigend her name. Is accepting scheduled Risperdal Medication Compliance: Yes Side effects from medications: No Attending Groups: Intermittent Review of Systems Acute medical concerns: No Review of Systems Review of Systems nothing acute Mental Status Exam Mental Status Exam Narrative: Appearance: wearing hospital gown, fair hygiene, fearful and anxious looking. 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 Behavior: guarded and fearful Psychomotor: no agitation but talking at times to someone who is not there Speech: mostly clear, regular rate/rhythm/volume, spontaneous TP: goal oriented- wanting to leave TC: as per nursing,paranoid delusions, wanting to go home Mood: okay Affect: guarded, suspicious and paranoid SI: denies HI: denies VH/AH: talking to someone who is not there Delusions: paranoid/persecutory delusions Insight/judgment: impaired Memory/cog: alert, oriented to idea that she is in the hospital but not to situation pending memory/cog assessment. Diagnostics Vital Signs (24Hr): Vital Signs - 24 hr 01/30/25 08:13 01/30/25 20:00 Temperature 97.5 F 98.2 F Pulse Rate 68 67 Respiratory Rate 16 16 Blood Pressure 126/55 L 120/60 Pulse Oximetry 96 96 Oxygen Delivery Method Room Air Room Air BMI result Body Mass Index 29.5 Labs 01/19/25 12:57 01/19/25 12:57 Medications Medications Current Medications Acetaminophen (Acetaminophen 325 Mg Tablet) 650 mg PO Q6H PRN PRN Reason: Headache/Pain, Scale 1-10 Last Admin: 01/29/25 12:32 Dose: 650 mg Al Hydroxide/Mg Hydroxide (Magnesium Hydrox/Alum Hydrox 30 Ml Oral.Susp) 30 ml PO Q6H PRN PRN Reason: Heartburn/Nausea Albuterol Sulfate (Albuterol Sulfate 90 Mcg 8 Gm Inhaler) 2 puff INHALE Q4H PRN PRN Reason: Shortness Of Breath Or Wheezing Atorvastatin Calcium (Atorvastatin Calcium 40 Mg Tablet) 40 mg PO DAILY [facility] Last Admin: 01/30/25 08:16 Dose: 40 mg Benztropine Mesylate (Benztropine Mesylate 0.5 Mg Tablet) 0.5 mg PO BID [facility] Last Admin: 01/30/25 21:36 Dose: 0.5 mg Clonazepam (Clonazepam Odt 0.5 Mg Tab.Rapdis) 0.5 mg PO BID [facility] Last Admin: 01/30/25 21:36 Dose: 0.5 mg Fluticasone/Vilanterol (Fluticasone/Vilanterol 200/25 Blst.W.Dev) 1 puff INHALE RDAILY [facility] Last Admin: 01/30/25 10:36 Dose: Not Given Guaifenesin (Guaifenesin 200 Mg/10 Ml 10 Ml Liquid) 10 ml PO Q6H PRN PRN Reason: Cough Hydrochlorothiazide (Hydrochlorothiazide 25 Mg Tablet) 25 mg PO DAILY [facility] Last Admin: 01/30/25 08:16 Dose: 25 mg Levetiracetam (Levetiracetam 500 Mg Tablet) 500 mg PO BID [facility] Last Admin: 01/30/25 21:36 Dose: 500 mg Magnesium Hydroxide (Milk Of Magnesia 30 Ml Oral.Susp) 30 ml PO DAILY PRN PRN Reason: Constipation Methimazole (Methimazole 5 Mg Tablet) 5 mg PO DAILY [facility] Last Admin: 01/30/25 08:16 Dose: 5 mg Nifedipine (Nifedipine Er 30 Mg Tab.Er.24) 30 mg PO DAILY [facility]; Protocol Last Admin: 01/30/25 08:16 Dose: 30 mg Olanzapine (Olanzapine 10 Mg Tablet) 10 mg PO Q6H PRN PRN Reason: severe agitation Last Admin: 01/30/25 17:35 Dose: 10 mg Risperidone (Risperidone 1 Mg Tablet) 1 mg PO BID [facility] Last Admin: 01/30/25 21:36 Dose: 1 mg Tiotropium [place] (Tiotropium [place] 2.5 Mcg 1 Puff/2.5 Mcg Mist.Inhal) 1 puff INHALE RDAILY [facility] Last Admin: 01/30/25 10:36 Dose: Not Given Trazodone HCl (Trazodone Hcl 50 Mg Tablet) 50 mg PO BEDTIME MRX1 PRN PRN Reason: Insomnia Last Admin: 01/29/25 20:04 Dose: 50 mg Allergies Allergies Allergy/AdvReac Type Severity Reaction Status Date / Time latex Allergy Unknown Verified 01/16/25 20:11 peanut Allergy Unknown Verified 01/16/25 20:11 Penicillins Allergy Unknown Verified 01/16/25 20:11 Assessment & Plan Assessment & Plan (1) Psychosis: Status: Acute Code(s): F29 - Unspecified psychosis not due to a substance or known physiological condition Plan Mrs. Sharif is a 69 year-old woman who presents with a 3 month hx of new onset of psychosis (AH) and combination of paranoid delusions and cap gras delusions. No prior psychiatric hx. She does have of cocaine use but apparently had not used in some years. Daughter suspects she may have relapsed but no ongoing use. Pt presents with more complex theme of delusions. No additional medical work up available including head CT. CBC and cmp unremarkable. 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 It may be related to dementia process but complexity of delusions and psychosis not the common presentation for dementia that have psychosis early on such as in vascular dementia or LBD. Pt presents as gravely disable to able to care for self due to symptoms of psychosis and delusions. PLAN 01/21 continues to decline medications, self dialoguing, and paranoid. 01/22 continue tx. pt declines medications, very paranoid and ongoing auditory hallucinations, self dialoguing, agitated. 01/23 continue risperidone 1mg po BID 01/24 taking medications more consistently but still very paranoid and psychotic. 01/25 increase risperidone 2mg po BID 01/26 risperidone lowered due to to dystonia, back to 1mg po BID added cogentin 0.5mg po BID and clonazepam 0.5mg po BID for anxiety s/s to paranoid delusions 01/27 continue tx. 01/28/25: Inherited patient today, visible most of the time in day room, engageable but not social with orders. Not yelling loudly, slightly elevated sitting by herself at the table sometimes. Slept for 8 hours and was medication compliant, appear to be delusional, paranoid suspicious. Observe not self dialogue a lot, not yelling out loud, not exist seeking this morning. Expecting daughter to come visit however is not the case. Slightly sedated. Walking with normal gait. Continue to monitor for mental status change and continue with current treatment plan. Court schedule for January 29 per treatment team 01/30/2025: Maintain current treatment regimen 01/31: no changes Reason for continued inpatient stay Substantial Risk for: inability to function Time Spent With Patient Time: Total time managing care of this patient today ____ minutes.
[2025-01-31 08:00] VITALS: BP 153/66; PULSE 65; RESP 18; TEMP 36.2; O2SAT 93
[2025-01-31] MEDS: clonazePAM ODT 0.5 MG TAB.RAPDIS PO ×2 (08:15→20:36)
[2025-01-31 08:16] VITALS: BP 153/66
[2025-01-31] MEDS: NIFEdipine ER 30 MG TAB.ER.24 PO (08:16)
[2025-01-31 20:00] VITALS: BP 151/63; PULSE 63; RESP 18; TEMP 36.4; O2SAT 96
[2025-02-01 08:00] VITALS: BP 132/64; PULSE 95; RESP 16; TEMP 36; O2SAT 95
[2025-02-01] MEDS: Fluticasone/Vilanterol 200/25 BLST.W.DEV 1 PUFF INHALE (08:44)
[2025-02-01] MEDS: Tiotropium Bromide 2.5 mcg 1 PUFF/2.5 MCG MIST.INHAL INHALE (08:44)
[2025-02-01] MEDS: clonazePAM ODT 0.5 MG TAB.RAPDIS PO ×2 (08:45→21:13)
[2025-02-01] MEDS: NIFEdipine ER 30 MG TAB.ER.24 PO (08:45)
--- NOTE | 2025-02-01 10:59 | P.PNPSI_ITS ---
Subjective Subjective Date of Service: 02/01/25 Reason For Visit: Psychosis Interim History: met with patient. Discussed with nursing. Still talking to her children that are not there, remains fearful kids in danger.. Again with writer producer minimal engagement. Is accepting scheduled Risperdal Medication Compliance: Yes Side effects from medications: No Attending Groups: No Review of Systems Acute medical concerns: No Review of Systems Review of Systems nothing acute Mental Status Exam Mental Status Exam Narrative: Appearance: wearing hospital gown, fair hygiene, fearful and anxious looking. 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 Behavior: guarded and fearful Psychomotor: no agitation but talking at times to someone who is not there Speech: mostly clear, regular rate/rhythm/volume, spontaneous TP: goal oriented- wanting to leave TC: as per nursing,paranoid delusions, wanting to go home Mood: okay Affect: guarded, suspicious and paranoid SI: denies HI: denies VH/AH: talking to someone who is not there Delusions: paranoid/persecutory delusions Insight/judgment: impaired Memory/cog: alert, oriented to idea that she is in the hospital but not to situation pending memory/cog assessment. Diagnostics Vital Signs (24Hr): Vital Signs - 24 hr 01/31/25 20:00 02/01/25 08:00 Temperature 97.5 F 96.8 F Pulse Rate 63 95 Respiratory Rate 18 16 Blood Pressure 151/63 H 132/64 Pulse Oximetry 96 95 Oxygen Delivery Method Room Air Room Air BMI result Body Mass Index 29.5 Labs 01/19/25 12:57 01/19/25 12:57 Medications Medications Current Medications Acetaminophen (Acetaminophen 325 Mg Tablet) 650 mg PO Q6H PRN PRN Reason: Headache/Pain, Scale 1-10 Last Admin: 01/29/25 12:32 Dose: 650 mg Al Hydroxide/Mg Hydroxide (Magnesium Hydrox/Alum Hydrox 30 Ml Oral.Susp) 30 ml PO Q6H PRN PRN Reason: Heartburn/Nausea Albuterol Sulfate (Albuterol Sulfate 90 Mcg 8 Gm Inhaler) 2 puff INHALE Q4H PRN PRN Reason: Shortness Of Breath Or Wheezing Atorvastatin Calcium (Atorvastatin Calcium 40 Mg Tablet) 40 mg PO DAILY [facility] Last Admin: 02/01/25 08:45 Dose: 40 mg Benztropine Mesylate (Benztropine Mesylate 0.5 Mg Tablet) 0.5 mg PO BID [facility] Last Admin: 02/01/25 08:45 Dose: 0.5 mg Clonazepam (Clonazepam Odt 0.5 Mg Tab.Rapdis) 0.5 mg PO BID [facility] Last Admin: 02/01/25 08:45 Dose: 0.5 mg Fluticasone/Vilanterol (Fluticasone/Vilanterol 200/25 Blst.W.Dev) 1 puff INHALE RDAILY [facility] Last Admin: 02/01/25 08:44 Dose: 1 puff Guaifenesin (Guaifenesin 200 Mg/10 Ml 10 Ml Liquid) 10 ml PO Q6H PRN PRN Reason: Cough Hydrochlorothiazide (Hydrochlorothiazide 25 Mg Tablet) 25 mg PO DAILY [facility] Last Admin: 02/01/25 08:46 Dose: 25 mg Levetiracetam (Levetiracetam 500 Mg Tablet) 500 mg PO BID [facility] Last Admin: 02/01/25 08:46 Dose: 500 mg Magnesium Hydroxide (Milk Of Magnesia 30 Ml Oral.Susp) 30 ml PO DAILY PRN PRN Reason: Constipation Methimazole (Methimazole 5 Mg Tablet) 5 mg PO DAILY [facility] Last Admin: 02/01/25 08:45 Dose: 5 mg Nifedipine (Nifedipine Er 30 Mg Tab.Er.24) 30 mg PO DAILY [facility]; Protocol Last Admin: 02/01/25 08:45 Dose: 30 mg Olanzapine (Olanzapine 10 Mg Tablet) 10 mg PO Q6H PRN PRN Reason: severe agitation Last Admin: 01/31/25 21:59 Dose: 10 mg Risperidone (Risperidone 1 Mg Tablet) 1 mg PO BID [facility] Last Admin: 02/01/25 08:46 Dose: 1 mg Tiotropium [place] (Tiotropium [place] 2.5 Mcg 1 Puff/2.5 Mcg Mist.Inhal) 1 puff INHALE RDAILY [facility] Last Admin: 02/01/25 08:44 Dose: 1 puff Trazodone HCl (Trazodone Hcl 50 Mg Tablet) 50 mg PO BEDTIME MRX1 PRN PRN Reason: Insomnia Last Admin: 01/31/25 22:54 Dose: 50 mg Allergies Allergies Allergy/AdvReac Type Severity Reaction Status Date / Time latex Allergy Unknown Verified 01/16/25 20:11 peanut Allergy Unknown Verified 01/16/25 20:11 Penicillins Allergy Unknown Verified 01/16/25 20:11 Assessment & Plan Assessment & Plan (1) Psychosis: Status: Acute Code(s): F29 - Unspecified psychosis not due to a substance or known physiological condition Plan Mrs. Sharif is a 69 year-old woman who presents with a 3 month hx of new onset of psychosis (AH) and combination of paranoid delusions and cap gras delusions. No prior psychiatric hx. She does have of cocaine use but apparently had not used in some years. Daughter suspects she may have relapsed but no ongoing use. Pt presents with more complex theme of delusions. No additional medical work up available including head CT. CBC and cmp unremarkable. 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 It may be related to dementia process but complexity of delusions and psychosis not the common presentation for dementia that have psychosis early on such as in vascular dementia or LBD. Pt presents as gravely disable to able to care for self due to symptoms of psychosis and delusions. PLAN 01/21 continues to decline medications, self dialoguing, and paranoid. 01/22 continue tx. pt declines medications, very paranoid and ongoing auditory hallucinations, self dialoguing, agitated. 01/23 continue risperidone 1mg po BID 01/24 taking medications more consistently but still very paranoid and psychotic. 01/25 increase risperidone 2mg po BID 01/26 risperidone lowered due to to dystonia, back to 1mg po BID added cogentin 0.5mg po BID and clonazepam 0.5mg po BID for anxiety s/s to paranoid delusions 01/27 continue tx. 01/28/25: Inherited patient today, visible most of the time in day room, engageable but not social with orders. Not yelling loudly, slightly elevated sitting by herself at the table sometimes. Slept for 8 hours and was medication compliant, appear to be delusional, paranoid suspicious. Observe not self dialogue a lot, not yelling out loud, not exist seeking this morning. Expecting daughter to come visit however is not the case. Slightly sedated. Walking with normal gait. Continue to monitor for mental status change and continue with current treatment plan. Court schedule for January 29 per treatment team 01/30/2025: Maintain current treatment regimen 01/31: no changes 02/01: no changes Reason for continued inpatient stay Substantial Risk for: inability to function Time Spent With Patient Time: Total time managing care of this patient today ____ minutes.
[2025-02-02 08:00] VITALS: BP 125/60; PULSE 57; RESP 14; TEMP 35.9; O2SAT 95
[2025-02-02 08:23] VITALS: BP 125/60
[2025-02-02] MEDS: NIFEdipine ER 30 MG TAB.ER.24 PO (08:23)
[2025-02-02] MEDS: Tiotropium Bromide 2.5 mcg 1 PUFF/2.5 MCG MIST.INHAL INHALE (08:24)
[2025-02-02] MEDS: clonazePAM ODT 0.5 MG TAB.RAPDIS PO (08:24)
[2025-02-02] MEDS: Fluticasone/Vilanterol 200/25 BLST.W.DEV 1 PUFF INHALE (08:24)
--- NOTE | 2025-02-02 08:49 | P.PNPSI_ITS ---
Subjective Subjective Date of Service: 02/02/25 Reason For Visit: Psychosis Subjective Notes: Section 8 Interim History: Pt slept through the night. She presents with less self dialoguing. She does appear slightly somnolent. No dystonia nor cogwheel noted. WIll change clonazepam to PRN for anxiety. She continues to report that her children are outside and are waiting for her. difficult to engage beyong that as she continues to present with paranoid delusions. Mental Status Exam Mental Status Exam Narrative: Appearance: wearing hospital gown, fair hygiene, fearful and anxious looking. 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 Behavior: guarded and fearful Psychomotor: no agitation but talking at times to someone who is not there Speech: mostly clear, regular rate/rhythm/volume, spontaneous TP: goal oriented- wanting to leave TC: as per nursing,paranoid delusions, wanting to go home Mood: okay Affect: guarded, suspicious and paranoid SI: denies HI: denies VH/AH: talking to someone who is not there Delusions: paranoid/persecutory delusions Insight/judgment: impaired Memory/cog: alert, oriented to idea that she is in the hospital but not to situation pending memory/cog assessment. Diagnostics Vital Signs (24Hr): Vital Signs - 24 hr 02/02/25 08:23 Blood Pressure 125/60 BMI result Body Mass Index 29.5 Labs 01/19/25 12:57 01/19/25 12:57 Medications Medications Current Medications Acetaminophen (Acetaminophen 325 Mg Tablet) 650 mg PO Q6H PRN PRN Reason: Headache/Pain, Scale 1-10 Last Admin: 02/02/25 08:38 Dose: 650 mg Al Hydroxide/Mg Hydroxide (Magnesium Hydrox/Alum Hydrox 30 Ml Oral.Susp) 30 ml PO Q6H PRN PRN Reason: Heartburn/Nausea Albuterol Sulfate (Albuterol Sulfate 90 Mcg 8 Gm Inhaler) 2 puff INHALE Q4H PRN PRN Reason: Shortness Of Breath Or Wheezing Atorvastatin Calcium (Atorvastatin Calcium 40 Mg Tablet) 40 mg PO DAILY [facility] Last Admin: 02/02/25 08:24 Dose: 40 mg Benztropine Mesylate (Benztropine Mesylate 0.5 Mg Tablet) 0.5 mg PO BID ALLY Last Admin: 02/02/25 08:23 Dose: 0.5 mg Clonazepam (Clonazepam Odt 0.5 Mg Tab.Rapdis) 0.5 mg PO BID [facility] Last Admin: 02/02/25 08:24 Dose: 0.5 mg Fluticasone/Vilanterol (Fluticasone/Vilanterol 200/25 Blst.W.Dev) 1 puff INHALE RDAILY [facility] Last Admin: 02/02/25 08:24 Dose: 1 puff Guaifenesin (Guaifenesin 200 Mg/10 Ml 10 Ml Liquid) 10 ml PO Q6H PRN PRN Reason: Cough Hydrochlorothiazide (Hydrochlorothiazide 25 Mg Tablet) 25 mg PO DAILY [facility] Last Admin: 02/02/25 08:23 Dose: 25 mg Levetiracetam (Levetiracetam 500 Mg Tablet) 500 mg PO BID [facility] Last Admin: 02/02/25 08:24 Dose: 500 mg Magnesium Hydroxide (Milk Of Magnesia 30 Ml Oral.Susp) 30 ml PO DAILY PRN PRN Reason: Constipation Methimazole (Methimazole 5 Mg Tablet) 5 mg PO DAILY [facility] Last Admin: 02/02/25 08:24 Dose: 5 mg Nifedipine (Nifedipine Er 30 Mg Tab.Er.24) 30 mg PO DAILY [facility]; Protocol Last Admin: 02/02/25 08:23 Dose: 30 mg Olanzapine (Olanzapine 10 Mg Tablet) 10 mg PO Q6H PRN PRN Reason: severe agitation Last Admin: 02/01/25 21:13 Dose: 10 mg Risperidone (Risperidone 1 Mg Tablet) 1 mg PO BID [facility] Last Admin: 02/02/25 08:23 Dose: 1 mg Tiotropium [place] (Tiotropium [place] 2.5 Mcg 1 Puff/2.5 Mcg Mist.Inhal) 1 puff INHALE RDAILY [facility] Last Admin: 02/02/25 08:24 Dose: 1 puff Trazodone HCl (Trazodone Hcl 50 Mg Tablet) 50 mg PO BEDTIME MRX1 PRN PRN Reason: Insomnia Last Admin: 01/31/25 22:54 Dose: 50 mg Allergies Allergies Allergy/AdvReac Type Severity Reaction Status Date / Time latex Allergy Unknown Verified 01/16/25 20:11 peanut Allergy Unknown Verified 01/16/25 20:11 Penicillins Allergy Unknown Verified 01/16/25 20:11 Assessment & Plan Assessment & Plan (1) Psychosis: Status: Acute Code(s): F29 - Unspecified psychosis not due to a substance or known physiological condition Plan Mrs. Sharif is a 69 year-old woman who presents with a 3 month hx of new onset of psychosis (AH) and combination of paranoid delusions and cap gras delusions. No prior psychiatric hx. She does have of cocaine use but apparently had not used in some years. Daughter suspects she may have relapsed but no ongoing use. Pt presents with more complex theme of delusions. No additional medical work up available including head CT. CBC and cmp unremarkable. 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 It may be related to dementia process but complexity of delusions and psychosis not the common presentation for dementia that have psychosis early on such as in vascular dementia or LBD. Pt presents as gravely disable to able to care for self due to symptoms of psychosis and delusions. PLAN 01/21 continues to decline medications, self dialoguing, and paranoid. 01/22 continue tx. pt declines medications, very paranoid and ongoing auditory hallucinations, self dialoguing, agitated. 01/23 continue risperidone 1mg po BID 01/24 taking medications more consistently but still very paranoid and psychotic. 01/25 increase risperidone 2mg po BID 01/26 risperidone lowered due to to dystonia, back to 1mg po BID added cogentin 0.5mg po BID and clonazepam 0.5mg po BID for anxiety s/s to paranoid delusions 01/27 continue tx. 01/28/25: Inherited patient today, visible most of the time in day room, engageable but not social with orders. Not yelling loudly, slightly elevated sitting by herself at the table sometimes. Slept for 8 hours and was medication compliant, appear to be delusional, paranoid suspicious. Observe not self dialogue a lot, not yelling out loud, not exist seeking this morning. Expecting daughter to come visit however is not the case. Slightly sedated. Walking with normal gait. Continue to monitor for mental status change and continue with current treatment plan. Court schedule for January 29 per treatment team 01/30/2025: Maintain current treatment regimen 01/31: no changes 02/01: no changes 02/02 continue tx. clonazepam will switch to PRN. continues to present with paranoid delusions, less AH, calmer, but still not ready for d/c. Reason for continued inpatient stay Substantial Risk for: inability to function Time Spent With Patient Time: Total time managing care of this patient today ____ minutes.
--- NOTE | 2025-02-02 12:14 | HO.PM.IMCN ---
History of Present Illness Data of Consult Service Date: 02/02/25 Primary Care Provider: Unknown Physician HPI Reason for consult: Medical management 69-year-old female with a past medical history of COPD, rheumatoid arthritis, hypertension, hyperthyroidism, legally blind with hearing loss. She presented to the ED with paranoia. Prior to admit she was at [facility] and was picked up by her family after an inpatient stay, and noted to still be paranoid and unwell, she was here to the ED and admitted to [facility] for further care. On exam she is awake and alert, cooperative, answers some questions. Does not appear to be in any acute distress. She denies any pain. Review of Systems Review of Systems: Limited due to cognition, she denies any pain. [facility] Social History Household Members: Unknown / Unable to assess Housing: Unknown / Unable to assess Do you presently have visiting nurse or other home services: No Patient Tobacco Use Status: Former Tobacco user Tobacco use type: Cigarette Smoked in Last 30 Days: No e-Cigarette/Vaping Use: Never Used Patient Interested in Nicotine Replacement: No Patient Given Instructions on How to Stop Smoking: No Second Hand Smoke Exposure: No Currently Displaying Signs/Symptoms of Drug Intoxication Withdrawal: No Spiritual Healthcare Practices: unknown, pt unable to respond due to mental status/psychosis [facility] Practices: unknown, pt unable to respond due to mental status/psychosis Cultural Healthcare Practices: unknown, pt unable to respond due to mental status/psychosis Advance Directives: No Advance Directives Information Provided: No Do you have thoughts of harming others: None Do you have a plan to hurt others: No Plan Recently lost weight without trying: Unsure How much weight loss: Unsure Eating poorly because of decreased appetite: No Nutrition screen score: 4 Nutrition Risks: No Nutritional Risk Patient : No : No Poor oral hygiene: No service: No Sexual orientation: Straight/Heterosexual Meds Allergies Allergy/AdvReac Type Severity Reaction Status Date / Time latex Allergy Unknown Verified 01/16/25 20:11 peanut Allergy Unknown Verified 01/16/25 20:11 Penicillins Allergy Unknown Verified 01/16/25 20:11 Active Medications: Current Medications Acetaminophen (Acetaminophen 325 Mg Tablet) 650 mg PO Q6H PRN PRN Reason: Headache/Pain, Scale 1-10 Last Admin: 02/02/25 08:38 Dose: 650 mg Al Hydroxide/Mg Hydroxide (Magnesium Hydrox/Alum Hydrox 30 Ml Oral.Susp) 30 ml PO Q6H PRN PRN Reason: Heartburn/Nausea Albuterol Sulfate (Albuterol Sulfate 90 Mcg 8 Gm Inhaler) 2 puff INHALE Q4H PRN PRN Reason: Shortness Of Breath Or Wheezing Atorvastatin Calcium (Atorvastatin Calcium 40 Mg Tablet) 40 mg PO DAILY [facility] Last Admin: 02/02/25 08:24 Dose: 40 mg Benztropine Mesylate (Benztropine Mesylate 0.5 Mg Tablet) 0.5 mg PO BID [facility] Last Admin: 02/02/25 08:23 Dose: 0.5 mg Clonazepam (Clonazepam Odt 0.5 Mg Tab.Rapdis) 0.5 mg PO BID PRN PRN Reason: severe anxiety/sleep Fluticasone/Vilanterol (Fluticasone/Vilanterol 200/25 Blst.W.Dev) 1 puff INHALE RDAILY [facility] Last Admin: 02/02/25 08:24 Dose: 1 puff Guaifenesin (Guaifenesin 200 Mg/10 Ml 10 Ml Liquid) 10 ml PO Q6H PRN PRN Reason: Cough Hydrochlorothiazide (Hydrochlorothiazide 25 Mg Tablet) 25 mg PO DAILY [facility] Last Admin: 02/02/25 08:23 Dose: 25 mg Levetiracetam (Levetiracetam 500 Mg Tablet) 500 mg PO BID [facility] Last Admin: 02/02/25 08:24 Dose: 500 mg Magnesium Hydroxide (Milk Of Magnesia 30 Ml Oral.Susp) 30 ml PO DAILY PRN PRN Reason: Constipation Methimazole (Methimazole 5 Mg Tablet) 5 mg PO DAILY [facility] Last Admin: 02/02/25 08:24 Dose: 5 mg Nifedipine (Nifedipine Er 30 Mg Tab.Er.24) 30 mg PO DAILY [facility]; Protocol Last Admin: 02/02/25 08:23 Dose: 30 mg Olanzapine (Olanzapine 10 Mg Tablet) 10 mg PO Q6H PRN PRN Reason: severe agitation Last Admin: 02/01/25 21:13 Dose: 10 mg Olanzapine (Olanzapine 10 Mg Vial) 5 mg IM BID PRN PRN Reason: if refuses oral per court orde Risperidone (Risperidone 1 Mg Tablet) 1 mg PO BID [facility] Last Admin: 02/02/25 08:23 Dose: 1 mg Tiotropium [place] (Tiotropium [place] 2.5 Mcg 1 Puff/2.5 Mcg Mist.Inhal) 1 puff INHALE RDAILJemal [facility] Last Admin: 02/02/25 08:24 Dose: 1 puff Trazodone HCl (Trazodone Hcl 50 Mg Tablet) 50 mg PO BEDTIME MRX1 PRN PRN Reason: Insomnia Last Admin: 01/31/25 22:54 Dose: 50 mg Home Medications ?Medication ?Instructions ?Recorded ?Confirmed ?Last Taken ?Type albuterol sulfate 90 mcg/actuation 2 puff inhalation Q4-6H PRN 01/18/25 01/18/25 Unknown History aerosol inhaler Shortness Of Breath Or Wheezing atorvastatin 40 mg tablet 40 mg PO DAILY 01/18/25 01/18/25 Unknown History chlorthalidone 25 mg tablet 25 mg PO DAILY 01/18/25 01/18/25 Unknown History fluticasone 500 mcg-salmeterol 50 1 inh inhalation DAILY 01/18/25 01/18/25 Unknown History mcg/dose blistr powdr for inhalation (Wixela Inhub) levetiracetam 500 mg tablet 500 mg PO BID 01/18/25 01/18/25 Unknown History methimazole 5 mg tablet 5 mg PO DAILY 01/18/25 01/18/25 Unknown History nifedipine 30 mg tablet,extended 30 mg PO DAILY 01/18/25 01/18/25 Unknown History release 24 hr terbinafine HCl 250 mg tablet 250 mg PO DAILY 01/18/25 01/18/25 Unknown History umeclidinium 62.5 mcg/actuation 1 inh inhalation DAILY 01/18/25 01/18/25 Unknown History blister powder for inhalation (Incruse Ellipta) Physical Exam Vital Signs and Narrative: Vital Signs: Last Vital Signs Temp 96.7 F L 02/02/25 08:00 Pulse 57 02/02/25 08:00 Resp 14 02/02/25 08:00 BP 125/60 02/02/25 08:23 Pulse Ox 95 02/02/25 08:00 O2 Del Method Room Air 02/02/25 08:00 BMI result Body Mass Index 29.5 CONST: Alert, in NAD. Well nourished HEENT: Normocephalic, atraumatic, MMM RESP: Lungs clear, RRR even and regular. HEART:,RRR, S1, S2. No edema GI:Abdomen Soft NT, ND. + BS times four :Deferred SKIN: Warm dry and intact, no visible lesions or rashes NEURO:CN II-XII Intact bilaterally PSYCH: Calm today, confused Results Labs 01/19/25 12:57 01/19/25 12:57 Assessment and Plan (1) COPD (chronic obstructive pulmonary disease): Status: Acute Plan Acute psychosis/paranoia Treatments per psychiatric team COPD Continue with Breo/Spiriva P.r.n. albuterol Stable not in acute exacerbation Hypertension/hyperlipidemia Continue Procardia/hydrochlorothiazide and Lipitor Blood pressures have been stable, continue to monitor and adjust as needed History of hyperthyroidism Continue Tapazole Recent TSH is 1.54 Thank you for allowing me to participate in the care of this patient. We will follow as needed. Please reconsult of any acute concerns or issues arise
[2025-02-03 07:43] VITALS: PULSE 60; RESP 16; TEMP 36.3; O2SAT 95
[2025-02-03 08:05] LABS: Alanine Aminotransferase 34 U/L (0-31); Albumin Level 3.9 g/dL (3.5-5.0); Alkaline Phosphatase 77 U/L (39-117); Anion Gap 10 (12-20); Aspartate Amino Transferase 25 U/L (5-31); Blood Urea Nitrogen 40 mg/dL (9-16); Calcium 9.5 mg/dL (8.4-10.2); Carbon Dioxide 33 mmol/L (22-29); Chloride 103 mmol/L (96-108); Cholesterol 182 mg/dL (<200); Creatinine Clr Calc Pharmacy 49.6; Estimated Glomerular Filt Rate 51; HDL Cholesterol 77 mg/dL (>40); Potassium 4.3 mmol/L (3.3-5.1); Sodium 142 mmol/L (135-145); Total Protein 7.5 g/dL (6.5-8.0); Triglycerides 43 mg/dL (<150)
--- NOTE | 2025-02-03 16:38 | P.PNPSI_ITS ---
Subjective Subjective Date of Service: 02/03/25 Reason For Visit: Psychosis Subjective Notes: Section 8 Interim History: Pt slept through the night. She presents more agitated and paranoid today, refusing medications, required IM back olanzapine per court order. Continues to talk to someone who is not there, again not interacting as much with others due to increase paranoid and auditory delusions, which seem to be related to decrease in risperidone, although higher dose she had significant EPS side effects. Less sedation today. Medication Compliance: Intermittent Review of Systems Review of Systems Limited due to cognition, she denies any pain. Yes Unobtainable due to mental status and Other (patient refused to answer ROS questions) Constitutional: Reports as per HPI Eyes: Reports as per HPI Reports as per HPI Cardiovascular: Reports as per HPI Respiratory: Reports as per HPI Gastrointestinal: Reports as per HPI Musculoskeletal: Reports as per HPI Skin/Breast: Reports as per HPI Reports as per HPI Psychiatric: Reports as per HPI Endocrine: Reports as per HPI Hematologic/Lymphatic: Reports as per HPI Allergic/Immunologic: Reports as per HPI Mental Status Exam Mental Status Exam Narrative: Appearance: wearing hospital gown, fair hygiene, fearful and anxious looking. 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 Behavior: guarded and fearful Psychomotor: no agitation but talking at times to someone who is not there Speech: mostly clear, regular rate/rhythm/volume, spontaneous TP: goal oriented- wanting to leave TC: as per nursing,paranoid delusions, wanting to go home Mood: okay Affect: guarded, suspicious and paranoid SI: denies HI: denies VH/AH: talking to someone who is not there Delusions: paranoid/persecutory delusions Insight/judgment: impaired Memory/cog: alert, oriented to idea that she is in the hospital but not to situation pending memory/cog assessment. Diagnostics Vital Signs (24Hr): Vital Signs - 24 hr 02/03/25 07:43 Temperature 97.3 F Pulse Rate 60 Respiratory Rate 16 Pulse Oximetry 95 Oxygen Delivery Method Room Air BMI result Body Mass Index 29.5 Labs 01/19/25 12:57 02/03/25 07:41 Labs: Laboratory Results - last 48 hr 02/03/25 07:41 Sodium 142 Potassium 4.3 Chloride 103 Carbon Dioxide 33 H Anion Gap 10 L BUN 40 H Creatinine 1.07 Estim Creat Clear Calc 49.6 Estimated GFR 51 Random Glucose 94 Calcium 9.5 Total Bilirubin 0.2 AST 25 ALT 34 H Alkaline Phosphatase 77 Total Protein 7.5 Albumin 3.9 Triglycerides 43 Cholesterol 182 LDL Cholesterol, Calc 97 HDL Cholesterol 77 Medications Medications Current Medications Acetaminophen (Acetaminophen 325 Mg Tablet) 650 mg PO Q6H PRN PRN Reason: Headache/Pain, Scale 1-10 Last Admin: 02/02/25 08:38 Dose: 650 mg Al Hydroxide/Mg Hydroxide (Magnesium Hydrox/Alum Hydrox 30 Ml Oral.Susp) 30 ml PO Q6H PRN PRN Reason: Heartburn/Nausea Albuterol Sulfate (Albuterol Sulfate 90 Mcg 8 Gm Inhaler) 2 puff INHALE Q4H PRN PRN Reason: Shortness Of Breath Or Wheezing Atorvastatin Calcium (Atorvastatin Calcium 40 Mg Tablet) 40 mg PO DAILY [facility] Last Admin: 02/03/25 15:27 Dose: Not Given Benztropine Mesylate (Benztropine Mesylate 0.5 Mg Tablet) 0.5 mg PO BID [facility] Last Admin: 02/03/25 15:27 Dose: Not Given Clonazepam (Clonazepam Odt 0.5 Mg Tab.Rapdis) 0.5 mg PO BID PRN PRN Reason: severe anxiety/sleep Fluticasone/Vilanterol (Fluticasone/Vilanterol 200/25 Blst.W.Dev) 1 puff INHALE RDAILY [facility] Last Admin: 02/03/25 10:17 Dose: Not Given Guaifenesin (Guaifenesin 200 Mg/10 Ml 10 Ml Liquid) 10 ml PO Q6H PRN PRN Reason: Cough Hydrochlorothiazide (Hydrochlorothiazide 25 Mg Tablet) 25 mg PO DAILY [facility] Last Admin: 02/03/25 10:17 Dose: Not Given Levetiracetam (Levetiracetam 500 Mg Tablet) 500 mg PO BID [facility] Last Admin: 02/03/25 15:27 Dose: Not Given Magnesium Hydroxide (Milk Of Magnesia 30 Ml Oral.Susp) 30 ml PO DAILY PRN PRN Reason: Constipation Methimazole (Methimazole 5 Mg Tablet) 5 mg PO DAILY [facility] Last Admin: 02/03/25 15:27 Dose: Not Given Nifedipine (Nifedipine Er 30 Mg Tab.Er.24) 30 mg PO DAILY [facility]; Protocol Last Admin: 02/03/25 10:17 Dose: Not Given Olanzapine (Olanzapine 10 Mg Tablet) 10 mg PO Q6H PRN PRN Reason: severe agitation Last Admin: 02/01/25 21:13 Dose: 10 mg Olanzapine (Olanzapine 10 Mg Vial) 5 mg IM BID PRN PRN Reason: if refuses oral per court orde Risperidone (Risperidone 1 Mg Tablet) 1 mg PO BEDTIME ALLY Risperidone (Risperidone 0.5 Mg Tablet) 0.5 mg PO DAILY [facility] Last Admin: 02/03/25 10:17 Dose: Not Given Tiotropium [place] (Tiotropium [place] 2.5 Mcg 1 Puff/2.5 Mcg Mist.Inhal) 1 puff INHALE RDAILY [facility] Last Admin: 02/03/25 10:17 Dose: Not Given Trazodone HCl (Trazodone Hcl 50 Mg Tablet) 50 mg PO BEDTIME MRX1 PRN PRN Reason: Insomnia Last Admin: 02/02/25 20:03 Dose: 50 mg Allergies Allergies Allergy/AdvReac Type Severity Reaction Status Date / Time latex Allergy Unknown Verified 01/16/25 20:11 peanut Allergy Unknown Verified 01/16/25 20:11 Penicillins Allergy Unknown Verified 01/16/25 20:11 Assessment & Plan Assessment & Plan (1) Psychosis: Status: Acute Code(s): F29 - Unspecified psychosis not due to a substance or known physiological condition Plan Mrs. Sharif is a 69 year-old woman who presents with a 3 month hx of new onset of psychosis (AH) and combination of paranoid delusions and cap gras delusions. No prior psychiatric hx. She does have of cocaine use but apparently had not used in some years. Daughter suspects she may have relapsed but no ongoing use. Pt presents with more complex theme of delusions. No additional medical work up available including head CT. CBC and cmp unremarkable. 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 It may be related to dementia process but complexity of delusions and psychosis not the common presentation for dementia that have psychosis early on such as in vascular dementia or LBD. Pt presents as gravely disable to able to care for self due to symptoms of psychosis and delusions. 7/8 increase night time risperidone 2mg po qhs increase cogetin at bedtime to 1mg po qhs. lower daily dose to 0.5mg po daily. continue cogentin 0.5mg po daily. clonazepam as prn olanzapine as prn for agitation Reason for continued inpatient stay Substantial Risk for: inability to function Time Spent With Patient Time: Total time managing care of this patient today ____ minutes.
[2025-02-03 20:00] VITALS: BP 124/56; PULSE 66; RESP 16; TEMP 36.1; O2SAT 97
[2025-02-04 08:00] VITALS: PULSE 76; RESP 16; TEMP 36.6; O2SAT 97
[2025-02-04] MEDS: NIFEdipine ER 30 MG TAB.ER.24 PO (08:15)
[2025-02-04] MEDS: clonazePAM ODT 0.5 MG TAB.RAPDIS PO (12:19)
--- NOTE | 2025-02-04 16:18 | HO.PSYCHPN ---
Subjective Subjective Date of Service: 02/04/25 Reason For Visit: Psychosis Subjective Notes: Conditional Voluntary Interim History: Pt slept through the night. Pt continues to self dialogued, increased psychosis and paranoid delusions, may be related to lower dose of risperidone. difficulty to engage due to ongoing psychosis and paranoia. Review of Systems Review of Systems Limited due to cognition, she denies any pain. Yes Unobtainable due to mental status and Other (patient refused to answer ROS questions) Constitutional: Reports as per HPI Eyes: Reports as per HPI Reports as per HPI Cardiovascular: Reports as per HPI Respiratory: Reports as per HPI Gastrointestinal: Reports as per HPI Musculoskeletal: Reports as per HPI Skin/Breast: Reports as per HPI Reports as per HPI Psychiatric: Reports as per HPI Endocrine: Reports as per HPI Hematologic/Lymphatic: Reports as per HPI Allergic/Immunologic: Reports as per HPI Mental Status Exam Mental Status Exam Narrative: Appearance: wearing hospital gown, fair hygiene, fearful and anxious looking. 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 Behavior: guarded and fearful Psychomotor: no agitation but talking at times to someone who is not there Speech: mostly clear, regular rate/rhythm/volume, spontaneous TP: goal oriented- wanting to leave TC: as per nursing,paranoid delusions, wanting to go home Mood: okay Affect: guarded, suspicious and paranoid SI: denies HI: denies VH/AH: talking to someone who is not there Delusions: paranoid/persecutory delusions Insight/judgment: impaired Memory/cog: alert, oriented to idea that she is in the hospital but not to situation pending memory/cog assessment. Diagnostics Vital Signs (24Hr): Vital Signs - 24 hr 02/03/25 20:00 02/04/25 08:00 Temperature 97 F 97.9 F Pulse Rate 66 76 Respiratory Rate 16 16 Blood Pressure 124/56 L Pulse Oximetry 97 97 Oxygen Delivery Method Room Air Room Air BMI result Body Mass Index 29.5 Labs 01/19/25 12:57 02/03/25 07:41 Labs: Laboratory Results - last 48 hr 02/03/25 07:41 Sodium 142 Potassium 4.3 Chloride 103 Carbon Dioxide 33 H Anion Gap 10 L BUN 40 H Creatinine 1.07 Estim Creat Clear Calc 49.6 Estimated GFR 51 Random Glucose 94 Calcium 9.5 Total Bilirubin 0.2 AST 25 ALT 34 H Alkaline Phosphatase 77 Total Protein 7.5 Albumin 3.9 Triglycerides 43 Cholesterol 182 LDL Cholesterol, Calc 97 HDL Cholesterol 77 Medications Medications Current Medications Acetaminophen (Acetaminophen 325 Mg Tablet) 650 mg PO Q6H PRN PRN Reason: Headache/Pain, Scale 1-10 Last Admin: 02/04/25 06:38 Dose: 650 mg Al Hydroxide/Mg Hydroxide (Magnesium Hydrox/Alum Hydrox 30 Ml Oral.Susp) 30 ml PO Q6H PRN PRN Reason: Heartburn/Nausea Albuterol Sulfate (Albuterol Sulfate 90 Mcg 8 Gm Inhaler) 2 puff INHALE Q4H PRN PRN Reason: Shortness Of Breath Or Wheezing Atorvastatin Calcium (Atorvastatin Calcium 40 Mg Tablet) 40 mg PO DAILY [facility] Last Admin: 02/04/25 08:15 Dose: 40 mg Benztropine Mesylate (Benztropine Mesylate 0.5 Mg Tablet) 0.5 mg PO BID [facility] Last Admin: 02/04/25 08:16 Dose: 0.5 mg Clonazepam (Clonazepam Odt 0.5 Mg Tab.Rapdis) 0.5 mg PO BID PRN PRN Reason: severe anxiety/sleep Last Admin: 02/04/25 12:19 Dose: 0.5 mg Fluticasone/Vilanterol (Fluticasone/Vilanterol 200/25 Blst.W.Dev) 1 puff INHALE RDAILY [facility] Last Admin: 02/04/25 08:20 Dose: Not Given Guaifenesin (Guaifenesin 200 Mg/10 Ml 10 Ml Liquid) 10 ml PO Q6H PRN PRN Reason: Cough Hydrochlorothiazide (Hydrochlorothiazide 25 Mg Tablet) 25 mg PO DAILY [facility] Last Admin: 02/04/25 08:15 Dose: 25 mg Levetiracetam (Levetiracetam 500 Mg Tablet) 500 mg PO BID [facility] Last Admin: 02/04/25 08:15 Dose: 500 mg Magnesium Hydroxide (Milk Of Magnesia 30 Ml Oral.Susp) 30 ml PO DAILY PRN PRN Reason: Constipation Methimazole (Methimazole 5 Mg Tablet) 5 mg PO DAILY [facility] Last Admin: 02/04/25 08:15 Dose: 5 mg Nifedipine (Nifedipine Er 30 Mg Tab.Er.24) 30 mg PO DAILY [facility]; Protocol Last Admin: 02/04/25 08:15 Dose: 30 mg Olanzapine (Olanzapine 10 Mg Tablet) 10 mg PO Q6H PRN PRN Reason: severe agitation Last Admin: 02/03/25 20:14 Dose: 10 mg Olanzapine (Olanzapine 10 Mg Vial) 5 mg IM BID PRN PRN Reason: if refuses oral per court orde Risperidone (Risperidone 1 Mg Tablet) 1 mg PO BEDTIME [facility] Last Admin: 02/03/25 20:15 Dose: 1 mg Risperidone (Risperidone 0.5 Mg Tablet) 0.5 mg PO DAILY [facility] Last Admin: 02/04/25 08:15 Dose: 0.5 mg Tiotropium [place] (Tiotropium [place] 2.5 Mcg 1 Puff/2.5 Mcg Mist.Inhal) 1 puff INHALE RDAILY [facility] Last Admin: 02/04/25 08:20 Dose: Not Given Trazodone HCl (Trazodone Hcl 50 Mg Tablet) 50 mg PO BEDTIME MRX1 PRN PRN Reason: Insomnia Last Admin: 02/03/25 20:15 Dose: 50 mg Allergies Allergies Allergy/AdvReac Type Severity Reaction Status Date / Time latex Allergy Unknown Verified 01/16/25 20:11 peanut Allergy Unknown Verified 01/16/25 20:11 Penicillins Allergy Unknown Verified 01/16/25 20:11 Assessment & Plan Assessment & Plan (1) Psychosis: Status: Acute Code(s): F29 - Unspecified psychosis not due to a substance or known physiological condition Plan Mrs. Sharif is a 69 year-old woman who presents with a 3 month hx of new onset of psychosis (AH) and combination of paranoid delusions and cap gras delusions. No prior psychiatric hx. She does have of cocaine use but apparently had not used in some years. Daughter suspects she may have relapsed but no ongoing use. Pt presents with more complex theme of delusions. No additional medical work up available including head CT. CBC and cmp unremarkable. 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 It may be related to dementia process but complexity of delusions and psychosis not the common presentation for dementia that have psychosis early on such as in vascular dementia or LBD. Pt presents as gravely disable to able to care for self due to symptoms of psychosis and delusions. 7/8 increase night time risperidone 2mg po qhs increase cogetin at bedtime to 1mg po qhs. lower daily dose to 0.5mg po daily. continue cogentin 0.5mg po daily. clonazepam as prn olanzapine as prn for agitation 02/04 continue tx. Reason for continued inpatient stay Substantial Risk for: inability to function Time Spent With Patient Time: Total time managing care of this patient today ____ minutes.
[2025-02-04 20:00] VITALS: BP 117/56; PULSE 65; RESP 16; TEMP 36.9; O2SAT 97
[2025-02-04] MEDS: OLANZapine 10 MG VIAL 5 MG IM (21:31)
[2025-02-05] MEDS: NIFEdipine ER 30 MG TAB.ER.24 PO (08:16)
--- NOTE | 2025-02-05 20:57 | HO.PSYCHPN ---
Subjective Subjective Date of Service: 02/05/25 Reason For Visit: Psychosis Subjective Notes: Section 8 Interim History: Pt slept through the night. Pt continues to self dialogued, increased psychosis and paranoid delusions, may be related to lower dose of risperidone (higher dose of 4mg/day caused severe EPS). She is loudly talking to voices. reports daughter is outside and she is waiting for her. Review of Systems Review of Systems Limited due to cognition, she denies any pain. Yes Unobtainable due to mental status and Other (patient refused to answer ROS questions) Constitutional: Reports as per HPI Eyes: Reports as per HPI Reports as per HPI Cardiovascular: Reports as per HPI Respiratory: Reports as per HPI Gastrointestinal: Reports as per HPI Musculoskeletal: Reports as per HPI Skin/Breast: Reports as per HPI Reports as per HPI Psychiatric: Reports as per HPI Endocrine: Reports as per HPI Hematologic/Lymphatic: Reports as per HPI Allergic/Immunologic: Reports as per HPI Mental Status Exam Mental Status Exam Narrative: Appearance: wearing hospital gown, fair hygiene, fearful and anxious looking. 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 Behavior: guarded and fearful Psychomotor: no agitation but talking at times to someone who is not there Speech: mostly clear, regular rate/rhythm/volume, spontaneous TP: goal oriented- wanting to leave TC: as per nursing,paranoid delusions, wanting to go home Mood: okay Affect: guarded, suspicious and paranoid SI: denies HI: denies VH/AH: talking to someone who is not there Delusions: paranoid/persecutory delusions Insight/judgment: impaired Memory/cog: alert, oriented to idea that she is in the hospital but not to situation pending memory/cog assessment. Diagnostics Vital Signs (24Hr): BMI result Body Mass Index 29.5 Labs 01/19/25 12:57 02/03/25 07:41 Medications Medications Current Medications Acetaminophen (Acetaminophen 325 Mg Tablet) 650 mg PO Q6H PRN PRN Reason: Headache/Pain, Scale 1-10 Last Admin: 02/04/25 06:38 Dose: 650 mg Al Hydroxide/Mg Hydroxide (Magnesium Hydrox/Alum Hydrox 30 Ml Oral.Susp) 30 ml PO Q6H PRN PRN Reason: Heartburn/Nausea Albuterol Sulfate (Albuterol Sulfate 90 Mcg 8 Gm Inhaler) 2 puff INHALE Q4H PRN PRN Reason: Shortness Of Breath Or Wheezing Atorvastatin Calcium (Atorvastatin Calcium 40 Mg Tablet) 40 mg PO DAILY [facility] Last Admin: 02/05/25 08:17 Dose: 40 mg Benztropine Mesylate (Benztropine Mesylate 0.5 Mg Tablet) 0.5 mg PO DAILY [facility] Last Admin: 02/05/25 08:16 Dose: 0.5 mg Benztropine Mesylate (Benztropine Mesylate 1 Mg Tablet) 1 mg PO BEDTIME [facility] Last Admin: 02/05/25 20:50 Dose: 1 mg Clonazepam (Clonazepam Odt 0.5 Mg Tab.Rapdis) 0.5 mg PO BID PRN PRN Reason: severe anxiety/sleep Last Admin: 02/04/25 12:19 Dose: 0.5 mg Fluticasone/Vilanterol (Fluticasone/Vilanterol 200/25 Blst.W.Dev) 1 puff INHALE RDAILY [facility] Last Admin: 02/05/25 08:26 Dose: Not Given Guaifenesin (Guaifenesin 200 Mg/10 Ml 10 Ml Liquid) 10 ml PO Q6H PRN PRN Reason: Cough Hydrochlorothiazide (Hydrochlorothiazide 25 Mg Tablet) 25 mg PO DAILY [facility] Last Admin: 02/05/25 08:16 Dose: 25 mg Levetiracetam (Levetiracetam 500 Mg Tablet) 500 mg PO BID [facility] Last Admin: 02/05/25 20:51 Dose: 500 mg Magnesium Hydroxide (Milk Of Magnesia 30 Ml Oral.Susp) 30 ml PO DAILY PRN PRN Reason: Constipation Methimazole (Methimazole 5 Mg Tablet) 5 mg PO DAILY [facility] Last Admin: 02/05/25 08:16 Dose: 5 mg Nifedipine (Nifedipine Er 30 Mg Tab.Er.24) 30 mg PO DAILY [facility]; Protocol Last Admin: 02/05/25 08:16 Dose: 30 mg Olanzapine (Olanzapine 10 Mg Tablet) 10 mg PO Q6H PRN PRN Reason: severe agitation Last Admin: 02/03/25 20:14 Dose: 10 mg Olanzapine (Olanzapine 10 Mg Vial) 10 mg IM BID PRN PRN Reason: if refuses oral per court orde Risperidone (Risperidone 0.5 Mg Tablet) 0.5 mg PO DAILY [facility] Last Admin: 07/10/25 08:16 Dose: 0.5 mg Risperidone (Risperidone 2 Mg Tablet) 2 mg PO BEDTIME [facility] Last Admin: 02/05/25 20:50 Dose: 2 mg Tiotropium [place] (Tiotropium [place] 2.5 Mcg 1 Puff/2.5 Mcg Mist.Inhal) 1 puff INHALE RDAILY [facility] Last Admin: 02/05/25 08:26 Dose: Not Given Trazodone HCl (Trazodone Hcl 50 Mg Tablet) 50 mg PO BEDTIME MRX1 PRN PRN Reason: Insomnia Last Admin: 02/03/25 20:15 Dose: 50 mg Allergies Allergies Allergy/AdvReac Type Severity Reaction Status Date / Time latex Allergy Unknown Verified 01/16/25 20:11 peanut Allergy Unknown Verified 01/16/25 20:11 Penicillins Allergy Unknown Verified 01/16/25 20:11 Assessment & Plan Assessment & Plan (1) Psychosis: Status: Acute Code(s): F29 - Unspecified psychosis not due to a substance or known physiological condition Plan Mrs. Sharif is a 69 year-old woman who presents with a 3 month hx of new onset of psychosis (AH) and combination of paranoid delusions and cap gras delusions. No prior psychiatric hx. She does have of cocaine use but apparently had not used in some years. Daughter suspects she may have relapsed but no ongoing use. Pt presents with more complex theme of delusions. No additional medical work up available including head CT. CBC and cmp unremarkable. 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 It may be related to dementia process but complexity of delusions and psychosis not the common presentation for dementia that have psychosis early on such as in vascular dementia or LBD. Pt presents as gravely disable to able to care for self due to symptoms of psychosis and delusions. 02/03 increase night time risperidone 2mg po qhs increase cogetin at bedtime to 1mg po qhs. lower daily dose to 0.5mg po daily. continue cogentin 0.5mg po daily. clonazepam as prn olanzapine as prn for agitation 02/04 continue tx. 02/05 continue tx. Reason for continued inpatient stay Substantial Risk for: inability to function Time Spent With Patient Time: Total time managing care of this patient today ____ minutes.
--- NOTE | 2025-02-06 17:02 | HO.PSYCHPN ---
Subjective Subjective Date of Service: 02/06/25 Reason For Visit: Psychosis Interim History: Pt slept through the night. Pt continues to self dialogued, increased psychosis and paranoid delusions, may be related to lower dose of risperidone (higher dose of 4mg/day caused severe EPS). She is loudly talking to voices. reports daughter is outside and she is waiting for her. Review of Systems Review of Systems Limited due to cognition, she denies any pain. Yes Unobtainable due to mental status and Other (patient refused to answer ROS questions) Constitutional: Reports as per HPI Eyes: Reports as per HPI Reports as per HPI Cardiovascular: Reports as per HPI Respiratory: Reports as per HPI Gastrointestinal: Reports as per HPI Musculoskeletal: Reports as per HPI Skin/Breast: Reports as per HPI Reports as per HPI Psychiatric: Reports as per HPI Endocrine: Reports as per HPI Hematologic/Lymphatic: Reports as per HPI Allergic/Immunologic: Reports as per HPI Mental Status Exam Mental Status Exam Narrative: Appearance: wearing hospital gown, fair hygiene, fearful and anxious looking. 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 Behavior: guarded and fearful Psychomotor: no agitation but talking at times to someone who is not there Speech: mostly clear, regular rate/rhythm/volume, spontaneous TP: goal oriented- wanting to leave TC: as per nursing,paranoid delusions, wanting to go home Mood: okay Affect: guarded, suspicious and paranoid SI: denies HI: denies VH/AH: talking to someone who is not there Delusions: paranoid/persecutory delusions Insight/judgment: impaired Memory/cog: alert, oriented to idea that she is in the hospital but not to situation pending memory/cog assessment. Diagnostics Vital Signs (24Hr): BMI result Body Mass Index 29.5 Labs 01/19/25 12:57 02/03/25 07:41 Medications Medications Current Medications Acetaminophen (Acetaminophen 325 Mg Tablet) 650 mg PO Q6H PRN PRN Reason: Headache/Pain, Scale 1-10 Last Admin: 02/06/25 09:29 Dose: 650 mg Al Hydroxide/Mg Hydroxide (Magnesium Hydrox/Alum Hydrox 30 Ml Oral.Susp) 30 ml PO Q6H PRN PRN Reason: Heartburn/Nausea Albuterol Sulfate (Albuterol Sulfate 90 Mcg 8 Gm Inhaler) 2 puff INHALE Q4H PRN PRN Reason: Shortness Of Breath Or Wheezing Atorvastatin Calcium (Atorvastatin Calcium 40 Mg Tablet) 40 mg PO DAILY [facility] Last Admin: 02/06/25 09:24 Dose: Not Given Benztropine Mesylate (Benztropine Mesylate 0.5 Mg Tablet) 0.5 mg PO DAILY [facility] Last Admin: 02/06/25 09:24 Dose: Not Given Benztropine Mesylate (Benztropine Mesylate 1 Mg Tablet) 1 mg PO BEDTIME [facility] Last Admin: 02/05/25 20:50 Dose: 1 mg Clonazepam (Clonazepam Odt 0.5 Mg Tab.Rapdis) 0.5 mg PO BID PRN PRN Reason: severe anxiety/sleep Last Admin: 02/04/25 12:19 Dose: 0.5 mg Fluticasone/Vilanterol (Fluticasone/Vilanterol 200/25 Blst.W.Dev) 1 puff INHALE RDAILY [facility] Last Admin: 02/06/25 09:24 Dose: Not Given Guaifenesin (Guaifenesin 200 Mg/10 Ml 10 Ml Liquid) 10 ml PO Q6H PRN PRN Reason: Cough Hydrochlorothiazide (Hydrochlorothiazide 25 Mg Tablet) 25 mg PO DAILY [facility] Last Admin: 02/06/25 09:24 Dose: Not Given Levetiracetam (Levetiracetam 500 Mg Tablet) 500 mg PO BID [facility] Last Admin: 02/06/25 09:25 Dose: Not Given Magnesium Hydroxide (Milk Of Magnesia 30 Ml Oral.Susp) 30 ml PO DAILY PRN PRN Reason: Constipation Methimazole (Methimazole 5 Mg Tablet) 5 mg PO DAILY [facility] Last Admin: 02/06/25 09:25 Dose: Not Given Nifedipine (Nifedipine Er 30 Mg Tab.Er.24) 30 mg PO DAILY [facility]; Protocol Last Admin: 02/06/25 09:25 Dose: Not Given Olanzapine (Olanzapine 10 Mg Tablet) 10 mg PO Q6H PRN PRN Reason: severe agitation Last Admin: 02/03/25 20:14 Dose: 10 mg Olanzapine (Olanzapine 10 Mg Vial) 10 mg IM BID PRN PRN Reason: if refuses oral per court orde Risperidone (Risperidone 0.5 Mg Tablet) 0.5 mg PO DAILY [facility] Last Admin: 02/06/25 09:25 Dose: Not Given Risperidone (Risperidone 2 Mg Tablet) 2 mg PO BEDTIME [facility] Last Admin: 02/05/25 20:50 Dose: 2 mg Tiotropium [place] (Tiotropium [place] 2.5 Mcg 1 Puff/2.5 Mcg Mist.Inhal) 1 puff INHALE RDAILY [facility] Last Admin: 02/06/25 09:24 Dose: Not Given Trazodone HCl (Trazodone Hcl 50 Mg Tablet) 50 mg PO BEDTIME MRX1 PRN PRN Reason: Insomnia Last Admin: 02/03/25 20:15 Dose: 50 mg Allergies Allergies Allergy/AdvReac Type Severity Reaction Status Date / Time latex Allergy Unknown Verified 01/16/25 20:11 peanut Allergy Unknown Verified 01/16/25 20:11 Penicillins Allergy Unknown Verified 01/16/25 20:11 Assessment & Plan Assessment & Plan (1) Psychosis: Status: Acute Code(s): F29 - Unspecified psychosis not due to a substance or known physiological condition Plan Mrs. Sharif is a 69 year-old woman who presents with a 3 month hx of new onset of psychosis (AH) and combination of paranoid delusions and cap gras delusions. No prior psychiatric hx. She does have of cocaine use but apparently had not used in some years. Daughter suspects she may have relapsed but no ongoing use. Pt presents with more complex theme of delusions. No additional medical work up available including head CT. CBC and cmp unremarkable. 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 It may be related to dementia process but complexity of delusions and psychosis not the common presentation for dementia that have psychosis early on such as in vascular dementia or LBD. Pt presents as gravely disable to able to care for self due to symptoms of psychosis and delusions. 02/03 increase night time risperidone 2mg po qhs increase cogetin at bedtime to 1mg po qhs. lower daily dose to 0.5mg po daily. continue cogentin 0.5mg po daily. clonazepam as prn olanzapine as prn for agitation 02/04 continue tx. 02/05 continue tx. 02/06 continue current dose of risperidone. NOTE THAT pt can't take doses higher than 3 mg/day of risperidone as higher doses had severe EPS. can use olanzapine as well per court order. Reason for continued inpatient stay Substantial Risk for: inability to function Time Spent With Patient Time: Total time managing care of this patient today ____ minutes.
[2025-02-07] MEDS: clonazePAM ODT 0.5 MG TAB.RAPDIS PO (10:01)
--- NOTE | 2025-02-07 10:03 | PC.NURSE ---
Yelling for her son to be let into the door so she could go out and get her shopping done. Stated she had permission to do this. Was able to redirect her to the kitchen area to wait and gave her a snack and coffee along with PRN olanzapine and clonopine.
[2025-02-07] MEDS: NIFEdipine ER 30 MG TAB.ER.24 PO (10:45)
--- NOTE | 2025-02-07 13:23 | PC.NURSE ---
She quieted for lunch but after an hour began yelling again for her children to open the door and come in. Message sent to provider.
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
[2025-02-07] MEDS: OLANZapine 10 MG VIAL IM (16:34)
[2025-02-07] MEDS: diazePAM 10 MG/2 ML CARTRIDGE IM (16:34)
[2025-02-07 20:00] VITALS: BP 105/55; PULSE 77; RESP 18; TEMP 36.7; O2SAT 94
[2025-02-08] MEDS: NIFEdipine ER 30 MG TAB.ER.24 PO (09:46)
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
[2025-02-08 19:44] VITALS: BP 115/56; PULSE 67; RESP 16; TEMP 36.6; O2SAT 92
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
[2025-02-09] MEDS: OLANZapine 10 MG VIAL IM (11:00)
[2025-02-09 19:33] VITALS: BP 142/65; PULSE 64; RESP 16; TEMP 36.4; O2SAT 95
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
[2025-02-10 19:33] VITALS: BP 131/61; PULSE 64; RESP 16; TEMP 36.8; O2SAT 97
[2025-02-11] MEDS: NIFEdipine ER 30 MG TAB.ER.24 PO (09:02)
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
[2025-02-11 20:54] VITALS: BP 134/60; PULSE 68; RESP 14; TEMP 36.1; O2SAT 97
[2025-02-12] MEDS: NIFEdipine ER 30 MG TAB.ER.24 PO (08:53)
--- NOTE | 2025-02-12 12:39 | PC.NURSE ---
Today in the am she has had less dialecticing but she remains paranoid and thinks her food aqnd drink is poisoned
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
[2025-02-12 20:00] VITALS: BP 142/66; PULSE 64; RESP 18; TEMP 36.9; O2SAT 98
[2025-02-13 08:29] VITALS: BP 114/59; PULSE 57; RESP 15; TEMP 36.6; O2SAT 98
[2025-02-13] MEDS: NIFEdipine ER 30 MG TAB.ER.24 PO (08:30)
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
[2025-02-13 20:00] VITALS: BP 123/57; PULSE 64; RESP 16; TEMP 36.4; O2SAT 98
[2025-02-14 07:48] VITALS: BP 121/64; PULSE 62; RESP 18; TEMP 37.2; O2SAT 95
[2025-02-14 08:13] VITALS: BP 121/64
[2025-02-14] MEDS: NIFEdipine ER 30 MG TAB.ER.24 PO (08:13)
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
[2025-02-14 20:00] VITALS: BP 118/56; PULSE 71; RESP 16; TEMP 36.7; O2SAT 97
[2025-02-15 08:30] VITALS: BP 112/55; PULSE 68; RESP 16; TEMP 36.5; O2SAT 97
[2025-02-15] MEDS: Fluticasone/Vilanterol 200/25 BLST.W.DEV 1 PUFF INHALE (08:35)
[2025-02-15 09:40] VITALS: BP 136/65; PULSE 69
[2025-02-15] MEDS: NIFEdipine ER 30 MG TAB.ER.24 PO (09:44)
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
[2025-02-15 20:00] VITALS: BP 127/62; PULSE 77; RESP 18; TEMP 36.2; O2SAT 97
[2025-02-16] MEDS: NIFEdipine ER 30 MG TAB.ER.24 PO (08:46)
--- NOTE | 2025-02-16 08:46 | HO.PSYCHPN ---
Subjective Subjective Date of Service: 02/16/25 Reason For Visit: Psychosis Subjective Notes: Conditional Voluntary Interim History: Pt slept through the night. She did take medications. She is less guarded but continues to self dialogued thinking daughter is outside. hearing is poor, no new hearing aids nor batteries which makes communication very hard. Review of Systems Review of Systems Patient have hearing issues. Not observe having hearing aids on. Yes all other systems are reviewed and are negative, Unobtainable due to mental status and Other (patient refused to answer ROS questions) Constitutional: Reports as per HPI Eyes: Reports as per HPI Reports as per HPI Cardiovascular: Reports as per HPI Respiratory: Reports as per HPI Gastrointestinal: Reports as per HPI Musculoskeletal: Reports as per HPI Skin/Breast: Reports as per HPI Reports as per HPI Psychiatric: Reports as per HPI Endocrine: Reports as per HPI Hematologic/Lymphatic: Reports as per HPI Allergic/Immunologic: Reports as per HPI Mental Status Exam Mental Status Exam Narrative: Appearance: hospital attire, adequate grooming and hygiene Behavior: belligerent at times Orientation: alert, confused Memory: impaired Attention: able to attend to the encounter discussion Psychomotor Function: no agitation or slowing; no abnormal gestures or movements Speech: loud Mood: fine Affect: irritable Thought Process: disorganized Thought Content: denies SI/HI Hallucinations: active engagement in self dialogue delusions: paranoid Insight: impairment Judgment: impairment Impulsivity: none noted Diagnostics Vital Signs (24Hr): Vital Signs - 24 hr 02/15/25 09:40 02/15/25 20:00 Temperature 97.1 F Pulse Rate 69 77 Respiratory Rate 18 Blood Pressure 136/65 127/62 Pulse Oximetry 97 Oxygen Delivery Method Room Air BMI result Body Mass Index 29.5 Labs 01/19/25 12:57 02/03/25 07:41 Medications Medications Current Medications Acetaminophen (Acetaminophen 325 Mg Tablet) 650 mg PO Q6H PRN PRN Reason: Headache/Pain, Scale 1-10 Last Admin: 02/06/25 09:29 Dose: 650 mg Al Hydroxide/Mg Hydroxide (Magnesium Hydrox/Alum Hydrox 30 Ml Oral.Susp) 30 ml PO Q6H PRN PRN Reason: Heartburn/Nausea Albuterol Sulfate (Albuterol Sulfate 90 Mcg 8 Gm Inhaler) 2 puff INHALE Q4H PRN PRN Reason: Shortness Of Breath Or Wheezing Atorvastatin Calcium (Atorvastatin Calcium 40 Mg Tablet) 40 mg PO DAILY [facility] Last Admin: 02/15/25 08:36 Dose: 40 mg Benztropine Mesylate (Benztropine Mesylate 0.5 Mg Tablet) 0.5 mg PO DAILY [facility] Last Admin: 02/15/25 09:39 Dose: 0.5 mg Benztropine Mesylate (Benztropine Mesylate 1 Mg Tablet) 1 mg PO BEDTIME [facility] Last Admin: 02/15/25 20:36 Dose: 1 mg Clonazepam (Clonazepam Odt 0.5 Mg Tab.Rapdis) 0.5 mg PO BID PRN PRN Reason: severe anxiety/sleep Last Admin: 02/07/25 10:01 Dose: 0.5 mg Divalproex Sodium (Divalproex Sodium 500 Mg Tablet.Dr) 500 mg PO BID [facility] Last Admin: 02/15/25 20:36 Dose: 500 mg Fluticasone/Vilanterol (Fluticasone/Vilanterol 200/25 Blst.W.Dev) 1 puff INHALE RDAILY [facility] Last Admin: 02/15/25 08:35 Dose: 1 puff Guaifenesin (Guaifenesin 200 Mg/10 Ml 10 Ml Liquid) 10 ml PO Q6H PRN PRN Reason: Cough Hydrochlorothiazide (Hydrochlorothiazide 25 Mg Tablet) 25 mg PO DAILY [facility] Last Admin: 02/15/25 09:37 Dose: 25 mg Levetiracetam (Levetiracetam 500 Mg Tablet) 500 mg PO BID [facility] Last Admin: 02/15/25 20:36 Dose: 500 mg Magnesium Hydroxide (Milk Of Magnesia 30 Ml Oral.Susp) 30 ml PO DAILY PRN PRN Reason: Constipation Methimazole (Methimazole 5 Mg Tablet) 5 mg PO DAILY [facility] Last Admin: 02/15/25 09:39 Dose: 5 mg Nifedipine (Nifedipine Er 30 Mg Tab.Er.24) 30 mg PO DAILY [facility]; Protocol Last Admin: 02/15/25 09:44 Dose: 30 mg Olanzapine (Olanzapine 10 Mg Tablet) 10 mg PO Q6H PRN PRN Reason: severe agitation Last Admin: 02/14/25 08:14 Dose: 10 mg Olanzapine (Olanzapine 10 Mg Vial) 10 mg IM BID PRN PRN Reason: if refuses oral per court orde Last Admin: 02/09/25 11:00 Dose: 10 mg Risperidone (Risperidone 2 Mg Tablet) 2 mg PO BEDTIME [facility] Last Admin: 02/15/25 20:36 Dose: 2 mg Risperidone (Risperidone 1 Mg Tablet) 1 mg PO DAILY [facility] Last Admin: 02/15/25 09:38 Dose: 1 mg Tiotropium [place] (Tiotropium [place] 2.5 Mcg 1 Puff/2.5 Mcg Mist.Inhal) 1 puff INHALE RDAILY [facility] Last Admin: 02/15/25 08:45 Dose: Not Given Trazodone HCl (Trazodone Hcl 50 Mg Tablet) 50 mg PO BEDTIME MRX1 PRN PRN Reason: Insomnia Last Admin: 02/15/25 20:36 Dose: 50 mg Allergies Allergies Allergy/AdvReac Type Severity Reaction Status Date / Time latex Allergy Unknown Verified 01/16/25 20:11 peanut Allergy Unknown Verified 01/16/25 20:11 Penicillins Allergy Unknown Verified 01/16/25 20:11 Assessment & Plan Assessment & Plan (1) Psychosis: Status: Acute Code(s): F29 - Unspecified psychosis not due to a substance or known physiological condition Plan Mrs. Sharif is a 69 year-old woman who presents with a 3 month hx of new onset of psychosis (AH) and combination of paranoid delusions and cap gras delusions. No prior psychiatric hx. She does have of cocaine use but apparently had not used in some years. Daughter suspects she may have relapsed but no ongoing use. Pt presents with more complex theme of delusions. No additional medical work up available including head CT. CBC and cmp unremarkable. 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 It may be related to dementia process but complexity of delusions and psychosis not the common presentation for dementia that have psychosis early on such as in vascular dementia or LBD. Pt presents as gravely disable to able to care for self due to symptoms of psychosis and delusions. 02/03 increase night time risperidone 2mg po qhs increase cogetin at bedtime to 1mg po qhs. lower daily dose to 0.5mg po daily. continue cogentin 0.5mg po daily. clonazepam as prn olanzapine as prn for agitation 02/04 continue tx. 02/05 continue tx. 02/06 continue current dose of risperidone. NOTE THAT pt can't take doses higher than 3 mg/day of risperidone as higher doses had severe EPS. can use olanzapine as well per court order. 02/07/25: Patient has been agitated yelling loudly exist seeking, delusional thinking her daughter/son outside at the door to pick her up. PRNs given in the morning with mild effect. Patient became agitated, aggressive\, assaultive to 1 of the staff on the floor, yelling and hitting her face so grabbing her neck. Physical was started at 16:31 to 1634. Patient was given IM medication of Zyprexa 10 and Valium 10 with good effect. Tomorrow plan: Patient will be benefit from Valium 10 mg twice a day and Zyprexa 5 mg 3 times a day is added into her scheduled medication as current plan with risperidone is not effective. Patient also having a backup for risperidone if she refused. 02/08/25: Slept most of the morning and last night. In better behavior control. No aggressive behavior. She is quiet, self dialogue, and medication compliant. Due to receive restrain medication yesterday. I did not make any medication change. But the Valium and additional Zyprexa appears to be helpful. 02/09 will try to change keppra to depakote for seizures as keppra may exacerbate psychosis. increase risperidone 1mg po daily and 2mg po qhs. may need to add second antipsychotic. 02/10 continues to present as paranoid with AH. at times declines oral medications, requiring IM back per court order. 02/11 continue tx. 02/12 continue tx. 02/13 continue tx. 02/14: no changes today. Monitor for agitation around confusion about hospitalization 02/15: no changes today, self dialogue more overt/extensive today 02/16 add olanzapine 5mg po qhs. continue risperidone. minimal improvement if any. Reason for continued inpatient stay Substantial Risk for: inability to function Time Spent With Patient Time: Total time managing care of this patient today ____ minutes.
[2025-02-16 20:00] VITALS: BP 136/61; PULSE 65; RESP 18; TEMP 36.6; O2SAT 100
[2025-02-17 08:00] VITALS: BP 130/80; PULSE 80; TEMP 36.4
[2025-02-17 11:59] LABS: Glucose, Whole Blood 82 mg/dL (60-115)
[2025-02-17] MEDS: NIFEdipine ER 30 MG TAB.ER.24 PO (12:13)
--- NOTE | 2025-02-17 13:50 | PC.NURSE ---
At 11:30 a noise was heard in her BR upon investigation she was found sitting on the BR floor next to the toilet. She was assisted to her bed vital signs check BS was done which was 82. No injury was noted. She ambulated to the kitchen area for lunch. She believes that the sandwich she had was moldy. I wrote her a note that it was a grilled cheese and she then ate about half of it and a bag of chips. Her daughter was called and she was updated. Provider was updated.
--- NOTE | 2025-02-17 18:09 | HO.PSYCHPN ---
Subjective Subjective Date of Service: 02/17/25 Reason For Visit: Psychosis Subjective Notes: Section 8 Interim History: pt slept through the night. She continues to self dialogue, continues with paranoid delusions. She is slightly calmer, and eating but continues to present as guarded. She is taking medications more consistently. approach pt to see is calmer enough to do head CT given later onset of psychosis but pt still not stable to cooperate with this. Diagnostics Vital Signs (24Hr): Vital Signs - 24 hr 02/16/25 20:00 02/17/25 08:00 Temperature 97.9 F 97.5 F Pulse Rate 65 80 Respiratory Rate 18 Blood Pressure 136/61 130/80 Pulse Oximetry 100 Oxygen Delivery Method Room Air BMI result Body Mass Index 29.5 Labs 01/19/25 12:57 02/03/25 07:41 Labs: Laboratory Results - last 48 hr 02/17/25 02/17/25 11:38 17:27 POC Glucose 82 C-Reactive Protein 0.11 Medications Medications Current Medications Acetaminophen (Acetaminophen 325 Mg Tablet) 650 mg PO Q6H PRN PRN Reason: Headache/Pain, Scale 1-10 Last Admin: 02/06/25 09:29 Dose: 650 mg Al Hydroxide/Mg Hydroxide (Magnesium Hydrox/Alum Hydrox 30 Ml Oral.Susp) 30 ml PO Q6H PRN PRN Reason: Heartburn/Nausea Albuterol Sulfate (Albuterol Sulfate 90 Mcg 8 Gm Inhaler) 2 puff INHALE Q4H PRN PRN Reason: Shortness Of Breath Or Wheezing Atorvastatin Calcium (Atorvastatin Calcium 40 Mg Tablet) 40 mg PO DAILY [facility] Last Admin: 02/17/25 12:14 Dose: 40 mg Benztropine Mesylate (Benztropine Mesylate 0.5 Mg Tablet) 0.5 mg PO DAILY [facility] Last Admin: 02/17/25 12:14 Dose: 0.5 mg Benztropine Mesylate (Benztropine Mesylate 1 Mg Tablet) 1 mg PO BEDTIME [facility] Last Admin: 02/16/25 20:06 Dose: 1 mg Clonazepam (Clonazepam Odt 0.5 Mg Tab.Rapdis) 0.5 mg PO BID PRN PRN Reason: severe anxiety/sleep Last Admin: 02/07/25 10:01 Dose: 0.5 mg Divalproex Sodium (Divalproex Sodium 500 Mg Tablet.Dr) 500 mg PO BID [facility] Last Admin: 02/17/25 12:14 Dose: 500 mg Fluticasone/Vilanterol (Fluticasone/Vilanterol 200/25 Blst.W.Dev) 1 puff INHALE RDAILY [facility] Last Admin: 02/17/25 12:20 Dose: Not Given Guaifenesin (Guaifenesin 200 Mg/10 Ml 10 Ml Liquid) 10 ml PO Q6H PRN PRN Reason: Cough Hydrochlorothiazide (Hydrochlorothiazide 25 Mg Tablet) 25 mg PO DAILY [facility] Last Admin: 02/17/25 12:14 Dose: 25 mg Levetiracetam (Levetiracetam 500 Mg Tablet) 500 mg PO BID [facility] Last Admin: 02/17/25 12:14 Dose: 500 mg Magnesium Hydroxide (Milk Of Magnesia 30 Ml Oral.Susp) 30 ml PO DAILY PRN PRN Reason: Constipation Methimazole (Methimazole 5 Mg Tablet) 5 mg PO DAILY [facility] Last Admin: 02/17/25 12:13 Dose: 5 mg Nifedipine (Nifedipine Er 30 Mg Tab.Er.24) 30 mg PO DAILY [facility]; Protocol Last Admin: 02/17/25 12:13 Dose: 30 mg Olanzapine (Olanzapine 10 Mg Tablet) 10 mg PO Q6H PRN PRN Reason: severe agitation Last Admin: 02/14/25 08:14 Dose: 10 mg Olanzapine (Olanzapine 10 Mg Vial) 10 mg IM BID PRN PRN Reason: if refuses oral per court orde Last Admin: 02/09/25 11:00 Dose: 10 mg Olanzapine (Olanzapine 5 Mg Tablet) 5 mg PO BEDTIME [facility] Last Admin: 02/16/25 20:06 Dose: 5 mg Risperidone (Risperidone 2 Mg Tablet) 2 mg PO BEDTIME [facility] Last Admin: 02/16/25 20:06 Dose: 2 mg Risperidone (Risperidone 1 Mg Tablet) 1 mg PO DAILY [facility] Last Admin: 02/17/25 12:13 Dose: 1 mg Tiotropium [place] (Tiotropium [place] 2.5 Mcg 1 Puff/2.5 Mcg Mist.Inhal) 1 puff INHALE RDAILY [facility] Last Admin: 02/17/25 12:20 Dose: Not Given Trazodone HCl (Trazodone Hcl 50 Mg Tablet) 50 mg PO BEDTIME MRX1 PRN PRN Reason: Insomnia Last Admin: 02/16/25 20:06 Dose: 50 mg Allergies Allergies Allergy/AdvReac Type Severity Reaction Status Date / Time latex Allergy Unknown Verified 01/16/25 20:11 peanut Allergy Unknown Verified 01/16/25 20:11 Penicillins Allergy Unknown Verified 01/16/25 20:11 Assessment & Plan Assessment & Plan (1) Psychosis: Status: Acute Code(s): F29 - Unspecified psychosis not due to a substance or known physiological condition Plan Mrs. Sharif is a 69 year-old woman who presents with a 3 month hx of new onset of psychosis (AH) and combination of paranoid delusions and cap gras delusions. No prior psychiatric hx. She does have of cocaine use but apparently had not used in some years. Daughter suspects she may have relapsed but no ongoing use. Pt presents with more complex theme of delusions. No additional medical work up available including head CT. CBC and cmp unremarkable. 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 It may be related to dementia process but complexity of delusions and psychosis not the common presentation for dementia that have psychosis early on such as in vascular dementia or LBD. Pt presents as gravely disable to able to care for self due to symptoms of psychosis and delusions. 02/03 increase night time risperidone 2mg po qhs increase cogetin at bedtime to 1mg po qhs. lower daily dose to 0.5mg po daily. continue cogentin 0.5mg po daily. clonazepam as prn olanzapine as prn for agitation 02/04 continue tx. 02/05 continue tx. 02/06 continue current dose of risperidone. NOTE THAT pt can't take doses higher than 3 mg/day of risperidone as higher doses had severe EPS. can use olanzapine as well per court order. 02/07/25: Patient has been agitated yelling loudly exist seeking, delusional thinking her daughter/son outside at the door to pick her up. PRNs given in the morning with mild effect. Patient became agitated, aggressive\, assaultive to 1 of the staff on the floor, yelling and hitting her face so grabbing her neck. Physical was started at 16:31 to 1634. Patient was given IM medication of Zyprexa 10 and Valium 10 with good effect. Tomorrow plan: Patient will be benefit from Valium 10 mg twice a day and Zyprexa 5 mg 3 times a day is added into her scheduled medication as current plan with risperidone is not effective. Patient also having a backup for risperidone if she refused. 02/08/25: Slept most of the morning and last night. In better behavior control. No aggressive behavior. She is quiet, self dialogue, and medication compliant. Due to receive restrain medication yesterday. I did not make any medication change. But the Valium and additional Zyprexa appears to be helpful. 02/09 will try to change keppra to depakote for seizures as keppra may exacerbate psychosis. increase risperidone 1mg po daily and 2mg po qhs. may need to add second antipsychotic. 02/10 continues to present as paranoid with AH. at times declines oral medications, requiring IM back per court order. 02/11 continue tx. 02/12 continue tx. 02/13 continue tx. 02/14: no changes today. Monitor for agitation around confusion about hospitalization 02/15: no changes today, self dialogue more overt/extensive today 02/16 add olanzapine 5mg po qhs. continue risperidone. minimal improvement if any. 02/17 continue tx. Reason for continued inpatient stay Substantial Risk for: inability to function Time Spent With Patient Time: Total time managing care of this patient today ____ minutes.
[2025-02-17 20:00] VITALS: BP 97/58; PULSE 75; RESP 17; TEMP 36.5; O2SAT 97
[2025-02-18 08:00] VITALS: BP 116/57; PULSE 68; RESP 18; TEMP 36.6; O2SAT 95
[2025-02-18] MEDS: Tiotropium Bromide 2.5 mcg 1 PUFF/2.5 MCG MIST.INHAL INHALE (09:16)
[2025-02-18] MEDS: Fluticasone/Vilanterol 200/25 BLST.W.DEV 1 PUFF INHALE (09:17)
[2025-02-18] MEDS: NIFEdipine ER 30 MG TAB.ER.24 PO (09:17)
--- NOTE | 2025-02-18 14:39 | HO.PSYCHPN ---
Subjective Subjective Date of Service: 02/18/25 Reason For Visit: Psychosis Subjective Notes: Section 8 Interim History: Pt slept through the night. continues to hear voices, self dialogued. No SI/HI. paranoid. sleeping well. taking medications more consistently, although she does have back IM per court. Medication Compliance: Yes Review of Systems Review of Systems Patient have hearing issues. Not observe having hearing aids on. Yes all other systems are reviewed and are negative, Unobtainable due to mental status and Other (patient refused to answer ROS questions) Constitutional: Reports as per HPI Eyes: Reports as per HPI Reports as per HPI Cardiovascular: Reports as per HPI Respiratory: Reports as per HPI Gastrointestinal: Reports as per HPI Musculoskeletal: Reports as per HPI Skin/Breast: Reports as per HPI Reports as per HPI Psychiatric: Reports as per HPI Endocrine: Reports as per HPI Hematologic/Lymphatic: Reports as per HPI Allergic/Immunologic: Reports as per HPI Mental Status Exam Mental Status Exam Narrative: Appearance: hospital attire, adequate grooming and hygiene Behavior: belligerent at times Orientation: alert, confused Memory: impaired Attention: able to attend to the encounter discussion Psychomotor Function: no agitation or slowing; no abnormal gestures or movements Speech: loud Mood: fine Affect: irritable Thought Process: disorganized Thought Content: denies SI/HI Hallucinations: active engagement in self dialogue delusions: paranoid Insight: impairment Judgment: impairment Impulsivity: none noted Diagnostics Vital Signs (24Hr): Vital Signs - 24 hr 02/17/25 20:00 02/18/25 08:00 Temperature 97.7 F 97.9 F Pulse Rate 75 68 Respiratory Rate 17 18 Blood Pressure 97/58 L 116/57 L Pulse Oximetry 97 95 Oxygen Delivery Method Room Air Room Air BMI result Body Mass Index 29.5 Labs 02/19/25 07:48 02/19/25 07:48 Labs: Laboratory Results - last 48 hr 02/17/25 02/17/25 02/17/25 11:38 17:26 17:27 ESR 37 H POC Glucose 82 C-Reactive Protein 0.11 Medications Medications Current Medications Acetaminophen (Acetaminophen 325 Mg Tablet) 650 mg PO Q6H PRN PRN Reason: Headache/Pain, Scale 1-10 Last Admin: 02/06/25 09:29 Dose: 650 mg Al Hydroxide/Mg Hydroxide (Magnesium Hydrox/Alum Hydrox 30 Ml Oral.Susp) 30 ml PO Q6H PRN PRN Reason: Heartburn/Nausea Albuterol Sulfate (Albuterol Sulfate 90 Mcg 8 Gm Inhaler) 2 puff INHALE Q4H PRN PRN Reason: Shortness Of Breath Or Wheezing Atorvastatin Calcium (Atorvastatin Calcium 40 Mg Tablet) 40 mg PO DAILY [facility] Last Admin: 02/18/25 09:17 Dose: 40 mg Benztropine Mesylate (Benztropine Mesylate 0.5 Mg Tablet) 0.5 mg PO DAILY [facility] Last Admin: 02/18/25 09:17 Dose: 0.5 mg Benztropine Mesylate (Benztropine Mesylate 1 Mg Tablet) 1 mg PO BEDTIME [facility] Last Admin: 02/17/25 19:58 Dose: 1 mg Clonazepam (Clonazepam Odt 0.5 Mg Tab.Rapdis) 0.5 mg PO BID PRN PRN Reason: severe anxiety/sleep Last Admin: 02/07/25 10:01 Dose: 0.5 mg Divalproex Sodium (Divalproex Sodium 500 Mg Tablet.Dr) 500 mg PO BID [facility] Last Admin: 02/18/25 09:17 Dose: 500 mg Fluticasone/Vilanterol (Fluticasone/Vilanterol 200/25 Blst.W.Dev) 1 puff INHALE RDAILY [facility] Last Admin: 02/18/25 09:17 Dose: 1 puff Guaifenesin (Guaifenesin 200 Mg/10 Ml 10 Ml Liquid) 10 ml PO Q6H PRN PRN Reason: Cough Hydrochlorothiazide (Hydrochlorothiazide 25 Mg Tablet) 25 mg PO DAILY [facility] Last Admin: 02/18/25 09:18 Dose: 25 mg Levetiracetam (Levetiracetam 250 Mg Tablet) 250 mg PO BID [facility] Magnesium Hydroxide (Milk Of Magnesia 30 Ml Oral.Susp) 30 ml PO DAILY PRN PRN Reason: Constipation Methimazole (Methimazole 5 Mg Tablet) 5 mg PO DAILY [facility] Last Admin: 02/18/25 09:17 Dose: 5 mg Nifedipine (Nifedipine Er 30 Mg Tab.Er.24) 30 mg PO DAILY [facility]; Protocol Last Admin: 02/18/25 09:17 Dose: 30 mg Olanzapine (Olanzapine 10 Mg Tablet) 10 mg PO Q6H PRN PRN Reason: severe agitation Last Admin: 02/14/25 08:14 Dose: 10 mg Olanzapine (Olanzapine 10 Mg Vial) 10 mg IM BID PRN PRN Reason: if refuses oral per court orde Last Admin: 02/09/25 11:00 Dose: 10 mg Olanzapine (Olanzapine 5 Mg Tablet) 5 mg PO BEDTIME [facility] Last Admin: 02/17/25 19:58 Dose: 5 mg Risperidone (Risperidone 2 Mg Tablet) 2 mg PO BEDTIME [facility] Last Admin: 02/17/25 19:58 Dose: 2 mg Risperidone (Risperidone 1 Mg Tablet) 1 mg PO DAILY [facility] Last Admin: 02/18/25 09:17 Dose: 1 mg Tiotropium Mascot (Tiotropium Mascot 2.5 Mcg 1 Puff/2.5 Mcg Mist.Inhal) 1 puff INHALE RDAILY [facility] Last Admin: 02/18/25 09:16 Dose: 1 puff Trazodone HCl (Trazodone Hcl 50 Mg Tablet) 50 mg PO BEDTIME MRX1 PRN PRN Reason: Insomnia Last Admin: 02/16/25 20:06 Dose: 50 mg Allergies Allergies Allergy/AdvReac Type Severity Reaction Status Date / Time latex Allergy Unknown Verified 01/16/25 20:11 peanut Allergy Unknown Verified 01/16/25 20:11 Penicillins Allergy Unknown Verified 01/16/25 20:11 Assessment & Plan Assessment & Plan (1) Psychosis: Status: Acute Code(s): F29 - Unspecified psychosis not due to a substance or known physiological condition Plan Mrs. Sharif is a 69 year-old woman who presents with a 3 month hx of new onset of psychosis (AH) and combination of paranoid delusions and cap gras delusions. No prior psychiatric hx. She does have of cocaine use but apparently had not used in some years. Daughter suspects she may have relapsed but no ongoing use. Pt presents with more complex theme of delusions. No additional medical work up available including head CT. CBC and cmp unremarkable. 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 It may be related to dementia process but complexity of delusions and psychosis not the common presentation for dementia that have psychosis early on such as in vascular dementia or LBD. Pt presents as gravely disable to able to care for self due to symptoms of psychosis and delusions. 7/8 increase night time risperidone 2mg po qhs increase cogetin at bedtime to 1mg po qhs. lower daily dose to 0.5mg po daily. continue cogentin 0.5mg po daily. clonazepam as prn olanzapine as prn for agitation 02/04 continue tx. 02/05 continue tx. 02/06 continue current dose of risperidone. NOTE THAT pt can't take doses higher than 3 mg/day of risperidone as higher doses had severe EPS. can use olanzapine as well per court order. 02/07/25: Patient has been agitated yelling loudly exist seeking, delusional thinking her daughter/son outside at the door to pick her up. PRNs given in the morning with mild effect. Patient became agitated, aggressive\, assaultive to 1 of the staff on the floor, yelling and hitting her face so grabbing her neck. Physical was started at 16:31 to 1634. Patient was given IM medication of Zyprexa 10 and Valium 10 with good effect. Tomorrow plan: Patient will be benefit from Valium 10 mg twice a day and Zyprexa 5 mg 3 times a day is added into her scheduled medication as current plan with risperidone is not effective. Patient also having a backup for risperidone if she refused. 02/08/25: Slept most of the morning and last night. In better behavior control. No aggressive behavior. She is quiet, self dialogue, and medication compliant. Due to receive restrain medication yesterday. I did not make any medication change. But the Valium and additional Zyprexa appears to be helpful. 02/09 will try to change keppra to depakote for seizures as keppra may exacerbate psychosis. increase risperidone 1mg po daily and 2mg po qhs. may need to add second antipsychotic. 02/10 continues to present as paranoid with AH. at times declines oral medications, requiring IM back per court order. 02/11 continue tx. 02/12 continue tx. 02/13 continue tx. 02/14: no changes today. Monitor for agitation around confusion about hospitalization 02/15: no changes today, self dialogue more overt/extensive today 02/16 add olanzapine 5mg po qhs. continue risperidone. minimal improvement if any. 02/17 continue tx. 02/18 continue tx. Reason for continued inpatient stay Substantial Risk for: inability to function Time Spent With Patient Time: Total time managing care of this patient today ____ minutes.
[2025-02-18 20:00] VITALS: BP 133/60; PULSE 77; RESP 18; TEMP 36.8; O2SAT 96
[2025-02-19 07:51] VITALS: BP 151/67; PULSE 88; RESP 16; TEMP 35.7; O2SAT 96
[2025-02-19 07:52] LABS: MANUAL DIFF FLAG NO
[2025-02-19] MEDS: Tiotropium Bromide 2.5 mcg 1 PUFF/2.5 MCG MIST.INHAL INHALE (07:53)
[2025-02-19] MEDS: Fluticasone/Vilanterol 200/25 BLST.W.DEV 1 PUFF INHALE (07:53)
[2025-02-19] MEDS: NIFEdipine ER 30 MG TAB.ER.24 PO (07:54)
[2025-02-19 07:58] LABS: Hematocrit 38.7 % (37.0-47.0); Hemoglobin 12.9 g/dl (12.0-16.0); Imm Gran Abs Auto 0.00 X10*3/uL (0.00-0.03); Imm Gran Pct Auto 0.0 % (0.0-0.4); Lymphocytes Absolute Auto 1.5 X10*3/uL (1.2-4.9); Mean Corpuscular HGB Conc 33.3 g/dl (31.0-35.0); Mean Corpuscular Hemoglobin 31.4 pg (27.0-33.0); Mean Corpuscular Volume 94.2 fL (80.0-98.0); NRBC Abs Auto 0.000 X10*3/uL (0.0-0.012); NRBC Pct Auto 0.0 /100WBC (0.0-0.2); Platelet Count 151 X10*3/uL (160-400); Red Blood Count 4.11 X10*6/uL (4.20-5.50); White Blood Count 4.2 X10*3/uL (4.8-10.8)
[2025-02-19 08:10] LABS: Ammonia 21 umol/L (13-55)
[2025-02-19 08:20] LABS: Alanine Aminotransferase 30 U/L (0-31); Albumin Level 3.9 g/dL (3.5-5.0); Alkaline Phosphatase 69 U/L (39-117); Anion Gap 12 (12-20); Aspartate Amino Transferase 25 U/L (5-31); Blood Urea Nitrogen 30 mg/dL (9-16); Calcium 9.7 mg/dL (8.4-10.2); Carbon Dioxide 34 mmol/L (22-29); Chloride 101 mmol/L (96-108); Creatinine Clr Calc Pharmacy 51.1; Estimated Glomerular Filt Rate 53; Potassium 4.5 mmol/L (3.3-5.1); Sodium 142 mmol/L (135-145); Total Protein 7.4 g/dL (6.5-8.0)
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
[2025-02-19 20:00] VITALS: BP 120/66; PULSE 71; RESP 16; TEMP 36.8; O2SAT 96
[2025-02-20] MEDS: clonazePAM ODT 0.5 MG TAB.RAPDIS PO (01:15)
[2025-02-20 08:00] VITALS: BP 143/73; PULSE 60; RESP 16; TEMP 2.4; TEMP 36.4; O2SAT 97
[2025-02-20] MEDS: Fluticasone/Vilanterol 200/25 BLST.W.DEV 1 PUFF INHALE (08:46)
[2025-02-20] MEDS: Tiotropium Bromide 2.5 mcg 1 PUFF/2.5 MCG MIST.INHAL INHALE (08:46)
[2025-02-20] MEDS: NIFEdipine ER 30 MG TAB.ER.24 PO (08:48)
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
[2025-02-20 17:42] VITALS: BP 128/60; PULSE 90; RESP 18; TEMP 2.5; TEMP 36.5; O2SAT 94
--- NOTE | 2025-02-20 19:36 | PC.NURSE ---
On 02/20/2025 at 1735, Parris Sharif was ambulating down [address] when she tripped over the left side of her walker, patient slowly fell sideways, hit her head into the wall and slid down, witnessed by this RN and [facility] Melva. Patient had no LOC, no change in neuro status from baseline. Parris immediately wanted to get up, staff assisted. Patient stated, Im fine, Im sorry, I didnt mean to do that . Patient was brought in to sensory room and sat down, vital signs taken Temp 36.4, HR 90, BP 128/60, SpO2 94%. Head to toe performed, no injuries noted. Nursing station installation supervisor Sheeba Enriquez and provider Marielena Arrieta notified. Parris was evaluated by Marielena Arrieta, no further orders necessary. Patients daughter Maricruz Sharif updated, Maricruz stated that her mom tries to be to independent, has fallen multiple times at home, that she really appreciates how the staff here have helped her and her mom and the care provided here. On reevaluation Parris is at her baseline.
[2025-02-20 20:00] VITALS: BP 112/51; PULSE 64; RESP 16; TEMP 36.9; O2SAT 94
[2025-02-21] MEDS: NIFEdipine ER 30 MG TAB.ER.24 PO (09:03)
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
[2025-02-21 19:54] VITALS: BP 125/61; PULSE 67; RESP 18; TEMP 36.3; O2SAT 97
[2025-02-21] MEDS: clonazePAM ODT 0.5 MG TAB.RAPDIS PO (22:22)
[2025-02-22 08:00] VITALS: BP 125/64; PULSE 70; RESP 16; TEMP 2.6; TEMP 36.6; O2SAT 94
[2025-02-22] MEDS: NIFEdipine ER 30 MG TAB.ER.24 PO (09:06)
[2025-02-22] MEDS: Fluticasone/Vilanterol 200/25 BLST.W.DEV 1 PUFF INHALE (09:24)
[2025-02-22] MEDS: Tiotropium Bromide 2.5 mcg 1 PUFF/2.5 MCG MIST.INHAL INHALE (09:24)
[2025-02-22 09:29] VITALS: BP 125/56
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
[2025-02-22 20:00] VITALS: BP 122/60; PULSE 68; RESP 17; TEMP 36.4; O2SAT 95
[2025-02-22] MEDS: clonazePAM ODT 0.5 MG TAB.RAPDIS PO (23:49)
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
[2025-02-23 15:32] LABS: Anti Nuclear Antibody Pattern Nuclear, Homogeneous; Anti Nuclear Antibody Screen POSITIVE (NEGATIVE); Anti Nuclear Antibody Titer 1:320 titer
[2025-02-23 19:39] VITALS: BP 150/67; PULSE 67; RESP 16; TEMP 36.4; O2SAT 93
[2025-02-24 08:00] VITALS: BP 142/65; PULSE 65; RESP 18; TEMP 36.2; O2SAT 95
[2025-02-24] MEDS: Tiotropium Bromide 2.5 mcg 1 PUFF/2.5 MCG MIST.INHAL INHALE (11:13)
[2025-02-24] MEDS: Fluticasone/Vilanterol 200/25 BLST.W.DEV 1 PUFF INHALE (11:14)
[2025-02-24] MEDS: NIFEdipine ER 30 MG TAB.ER.24 PO (11:15)
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
[2025-02-24] MEDS: clonazePAM ODT 0.5 MG TAB.RAPDIS PO (19:51)
[2025-02-24 20:00] VITALS: BP 141/65; PULSE 61; RESP 18; TEMP 36.6; O2SAT 97
[2025-02-25 08:17] VITALS: BP 135/64; PULSE 55; RESP 16; TEMP 36.5; O2SAT 97
[2025-02-25] MEDS: NIFEdipine ER 30 MG TAB.ER.24 PO (08:18)
[2025-02-25] MEDS: Tiotropium Bromide 2.5 mcg 1 PUFF/2.5 MCG MIST.INHAL INHALE (08:19)
[2025-02-25] MEDS: Fluticasone/Vilanterol 200/25 BLST.W.DEV 1 PUFF INHALE (08:19)
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
[2025-02-25] MEDS: clonazePAM ODT 0.5 MG TAB.RAPDIS PO (19:45)
[2025-02-25 20:00] VITALS: BP 116/56; PULSE 66; RESP 18; TEMP 36.4; O2SAT 98
[2025-02-26 08:00] VITALS: BP 112/56; PULSE 62; RESP 16; TEMP 36.8; O2SAT 96
[2025-02-26] MEDS: Fluticasone/Vilanterol 200/25 BLST.W.DEV 1 PUFF INHALE (09:28)
[2025-02-26] MEDS: Tiotropium Bromide 2.5 mcg 1 PUFF/2.5 MCG MIST.INHAL INHALE (09:29)
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
[2025-02-26 20:00] VITALS: BP 143/64; PULSE 70; RESP 16; TEMP 36.1; O2SAT 91
[2025-02-27] MEDS: NIFEdipine ER 30 MG TAB.ER.24 PO (09:04)
[2025-02-27] MEDS: Tiotropium Bromide 2.5 mcg 1 PUFF/2.5 MCG MIST.INHAL INHALE (09:10)
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
[2025-02-27 20:00] VITALS: BP 140/67; PULSE 63; RESP 16; TEMP 36.6; O2SAT 98
[2025-02-27] MEDS: clonazePAM ODT 0.5 MG TAB.RAPDIS PO (23:54)
--- NOTE | 2025-02-28 08:41 | P.PNPSI_ITS ---
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 Seems a bit better on prolixin than was on risperidone Also cochlear implant needs battery change which could be affecting mental state- Medication Compliance: Yes Side effects from medications: No Attending Groups: Intermittent Review of Systems Acute medical concerns: No does not appear short of beath Mental Status Exam Mental Status Exam Patient Appearance: Appropriate and Unkempt Patient Orientation: Person and Situation Level of Consciousness: Awake and Restless Patient Behavior: Talkative and Poor Eye Contact Mood Description: Labile Affect Description: Labile Patient Cognition Impaired: No Ability to Follow Directions: Poor Speech Pattern: Rambling and Poor Articulation Delusions: Paranoid Ideation Thought Process: Illogical Thought Content: positive for Disorganized Depressive Symptoms: Difficulty Concentrating Abnormal Motor Activity Signs and Symptoms: Restlessness Judgement: Poor Diagnostics Vital Signs (24Hr): Vital Signs - 24 hr 02/27/25 20:00 Temperature 98 F Pulse Rate 63 Respiratory Rate 16 Blood Pressure 140/67 H Pulse Oximetry 98 Oxygen Delivery Method Room Air BMI result Body Mass Index 29.5 Labs 02/19/25 07:48 02/19/25 07:48 Medications Medications Current Medications Acetaminophen (Acetaminophen 325 Mg Tablet) 650 mg PO Q6H PRN PRN Reason: Headache/Pain, Scale 1-10 Last Admin: 02/22/25 11:34 Dose: 650 mg Al Hydroxide/Mg Hydroxide (Magnesium Hydrox/Alum Hydrox 30 Ml Oral.Susp) 30 ml PO Q6H PRN PRN Reason: Heartburn/Nausea Albuterol Sulfate (Albuterol Sulfate 90 Mcg 8 Gm Inhaler) 2 puff INHALE Q4H PRN PRN Reason: Shortness Of Breath Or Wheezing Atorvastatin Calcium (Atorvastatin Calcium 40 Mg Tablet) 40 mg PO DAILY [facility] Last Admin: 02/27/25 09:04 Dose: 40 mg Benztropine Mesylate (Benztropine Mesylate 0.5 Mg Tablet) 0.5 mg PO DAILY [facility] Last Admin: 02/27/25 09:04 Dose: 0.5 mg Benztropine Mesylate (Benztropine Mesylate 1 Mg Tablet) 1 mg PO BEDTIME [facility] Last Admin: 02/27/25 21:13 Dose: 1 mg Clonazepam (Clonazepam Odt 0.5 Mg Tab.Rapdis) 0.5 mg PO BID PRN PRN Reason: severe anxiety/sleep Last Admin: 02/27/25 23:54 Dose: 0.5 mg Fluticasone/Vilanterol (Fluticasone/Vilanterol 200/25 Blst.W.Dev) 1 puff INHALE RDAILY [facility] Last Admin: 02/27/25 09:10 Dose: Not Given Guaifenesin (Guaifenesin 200 Mg/10 Ml 10 Ml Liquid) 10 ml PO Q6H PRN PRN Reason: Cough Hydrochlorothiazide (Hydrochlorothiazide 25 Mg Tablet) 25 mg PO DAILY [facility] Last Admin: 02/27/25 09:04 Dose: 25 mg Levetiracetam (Levetiracetam 250 Mg Tablet) 250 mg PO BID [facility] Last Admin: 02/27/25 21:13 Dose: 250 mg Magnesium Hydroxide (Milk Of Magnesia 30 Ml Oral.Susp) 30 ml PO DAILY PRN PRN Reason: Constipation Methimazole (Methimazole 5 Mg Tablet) 5 mg PO DAILY [facility] Last Admin: 02/27/25 09:05 Dose: 5 mg Nifedipine (Nifedipine Er 30 Mg Tab.Er.24) 30 mg PO DAILY [facility]; Protocol Last Admin: 02/27/25 09:04 Dose: 30 mg Olanzapine (Olanzapine 10 Mg Tablet) 10 mg PO Q6H PRN PRN Reason: severe agitation Last Admin: 02/25/25 13:21 Dose: 10 mg Olanzapine (Olanzapine 10 Mg Vial) 10 mg IM BID PRN PRN Reason: if refuses oral per court orde Last Admin: 02/09/25 11:00 Dose: 10 mg Risperidone (Risperidone 2 Mg Tablet) 2 mg PO BEDTIME [facility] Last Admin: 02/27/25 21:13 Dose: 2 mg Risperidone (Risperidone 1 Mg Tablet) 1 mg PO DAILY [facility] Last Admin: 02/27/25 09:04 Dose: 1 mg Tiotropium Erwin (Tiotropium Erwin 2.5 Mcg 1 Puff/2.5 Mcg Mist.Inhal) 1 puff INHALE RDAILY [facility] Last Admin: 02/27/25 09:10 Dose: 1 puff Trazodone HCl (Trazodone Hcl 50 Mg Tablet) 50 mg PO BEDTIME MRX1 PRN PRN Reason: Insomnia Last Admin: 02/25/25 19:45 Dose: 50 mg Allergies Allergies Allergy/AdvReac Type Severity Reaction Status Date / Time latex Allergy Unknown Verified 01/16/25 20:11 peanut Allergy Unknown Verified 01/16/25 20:11 Penicillins Allergy Unknown Verified 01/16/25 20:11 Assessment & Plan Assessment & Plan (1) Psychosis: Status: Acute Code(s): F29 - Unspecified psychosis not due to a substance or known physiological condition Plan Mrs. Sharif is a 69 year-old woman who presents with a 3 month hx of new onset of psychosis (AH) and combination of paranoid delusions and cap gras delusions. No prior psychiatric hx. She does have of cocaine use but apparently had not used in some years. Daughter suspects she may have relapsed but no ongoing use. Pt presents with more complex theme of delusions. No additional medical work up available including head CT. CBC and cmp unremarkable. 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 It may be related to dementia process but complexity of delusions and psychosis not the common presentation for dementia that have psychosis early on such as in vascular dementia or LBD. Pt presents as gravely disable to able to care for self due to symptoms of psychosis and delusions. 02/03 increase night time risperidone 2mg po qhs increase cogetin at bedtime to 1mg po qhs. lower daily dose to 0.5mg po daily. continue cogentin 0.5mg po daily. clonazepam as prn olanzapine as prn for agitation 02/04 continue tx. 02/05 continue tx. 02/06 continue current dose of risperidone. NOTE THAT pt can't take doses higher than 3 mg/day of risperidone as higher doses had severe EPS. can use olanzapine as well per court order. 02/07/25: Patient has been agitated yelling loudly exist seeking, delusional thinking her daughter/son outside at the door to pick her up. PRNs given in the morning with mild effect. Patient became agitated, aggressive\, assaultive to 1 of the staff on the floor, yelling and hitting her face so grabbing her neck. Physical was started at 16:31 to 1634. Patient was given IM medication of Zyprexa 10 and Valium 10 with good effect. Tomorrow plan: Patient will be benefit from Valium 10 mg twice a day and Zyprexa 5 mg 3 times a day is added into her scheduled medication as current plan with risperidone is not effective. Patient also having a backup for risperidone if she refused. 02/08/25: Slept most of the morning and last night. In better behavior control. No aggressive behavior. She is quiet, self dialogue, and medication compliant. Due to receive restrain medication yesterday. I did not make any medication change. But the Valium and additional Zyprexa appears to be helpful. 02/09 will try to change keppra to depakote for seizures as keppra may exacerbate psychosis. increase risperidone 1mg po daily and 2mg po qhs. may need to add second antipsychotic. 02/10 continues to present as paranoid with AH. at times declines oral medications, requiring IM back per court order. 02/11 continue tx. 02/12 continue tx. 02/13 continue tx. 02/14: no changes today. Monitor for agitation around confusion about hospitalization 02/15: no changes today, self dialogue more overt/extensive today 02/16 add olanzapine 5mg po qhs. continue risperidone. minimal improvement if any. 02/17 continue tx. 02/18 seems more somnolent with bedtime olanzapine, will continue to monitor. 02/19 cbc showed thrombocytopenia, which is new and suspect related to depakote 02/20 pt appears more sedated since addition of olanzapine at bedtime. She continues to self dialogue. minimal improvement. 02/21: Continue current management and treatment plan. 02/22: continue current management and treatment plan. 02/23 continue tx. may need to affirm HCP try different antipsychotic. 02/24 continue tx. results of LENORE 1:360, pattern homogenous A. 02/25 will try rexulti, lower risperidone. pending coordination of medical care to see if underlying autoimmune condition has anything to do with current presentation. 02/28 - pt has started prolixin no ill effects seen mild benefit so far Informed Consent: does not understand Reason for continued inpatient stay Substantial Risk for: rapid decompensation Time Spent With Patient Time: Total time managing care of this patient today ____ minutes.
[2025-02-28 08:43] VITALS: BP 134/61; PULSE 88; RESP 17; TEMP 36; O2SAT 98
[2025-02-28] MEDS: NIFEdipine ER 30 MG TAB.ER.24 PO (08:45)
[2025-02-28] MEDS: Fluticasone/Vilanterol 200/25 BLST.W.DEV 1 PUFF INHALE (08:46)
[2025-02-28] MEDS: Tiotropium Bromide 2.5 mcg 1 PUFF/2.5 MCG MIST.INHAL INHALE (09:32)
[2025-02-28 20:00] VITALS: BP 108/55; PULSE 63; RESP 16; TEMP 36.5; O2SAT 95
[2025-03-01 08:25] VITALS: BP 111/55; PULSE 59; RESP 18; TEMP 36.7; O2SAT 96
[2025-03-01 09:09] VITALS: BP 111/55
[2025-03-01] MEDS: Tiotropium Bromide 2.5 mcg 1 PUFF/2.5 MCG MIST.INHAL INHALE (09:09)
[2025-03-01] MEDS: Fluticasone/Vilanterol 200/25 BLST.W.DEV 1 PUFF INHALE (09:09)
[2025-03-01 09:10] VITALS: BP 111/55
[2025-03-01] MEDS: NIFEdipine ER 30 MG TAB.ER.24 PO (09:10)
--- NOTE | 2025-03-01 12:22 | HO.PSYCHPN ---
Subjective Subjective Date of Service: 03/01/25 Reason For Visit: Psychosis Subjective Notes: Section 8 Medical Problems Affecting Mental Status: Yes (hearing and vision) Interim History: 69 yo who tells me her son is coming- she will just got out for a bit with him and then come back - most coherent thing I have heard her say but- not accurate- sits down to wait for him in kitchen area- later gets up and goes back to her room, frequent self dialoguing in her room- Medication Compliance: Yes Side effects from medications: No Attending Groups: No Review of Systems Acute medical concerns: No Medical Review of Systems: unchanged Mental Status Exam Mental Status Exam Narrative: patient looks older than stated age, at time rambling conversation to herself but today more clear with me about delusion her son is coming and taking her out for day and returning her- Diagnostics Vital Signs (24Hr): Vital Signs - 24 hr 02/28/25 20:00 03/01/25 08:25 03/01/25 09:09 Temperature 97.7 F 98.1 F Pulse Rate 63 59 Respiratory Rate 16 18 Blood Pressure 108/55 L 111/55 L 111/55 L Pulse Oximetry 95 96 Oxygen Delivery Method Room Air Room Air 03/01/25 09:10 Temperature Pulse Rate Respiratory Rate Blood Pressure 111/55 L Pulse Oximetry Oxygen Delivery Method BMI result Body Mass Index 29.5 Labs 02/19/25 07:48 02/19/25 07:48 Medications Medications Current Medications Acetaminophen (Acetaminophen 325 Mg Tablet) 650 mg PO Q6H PRN PRN Reason: Headache/Pain, Scale 1-10 Last Admin: 02/22/25 11:34 Dose: 650 mg Al Hydroxide/Mg Hydroxide (Magnesium Hydrox/Alum Hydrox 30 Ml Oral.Susp) 30 ml PO Q6H PRN PRN Reason: Heartburn/Nausea Albuterol Sulfate (Albuterol Sulfate 90 Mcg 8 Gm Inhaler) 2 puff INHALE Q4H PRN PRN Reason: Shortness Of Breath Or Wheezing Atorvastatin Calcium (Atorvastatin Calcium 40 Mg Tablet) 40 mg PO DAILY [facility] Last Admin: 03/01/25 09:10 Dose: 40 mg Benztropine Mesylate (Benztropine Mesylate 0.5 Mg Tablet) 0.5 mg PO DAILY [facility] Last Admin: 03/01/25 09:10 Dose: 0.5 mg Benztropine Mesylate (Benztropine Mesylate 1 Mg Tablet) 1 mg PO BEDTIME [facility] Last Admin: 02/28/25 20:39 Dose: 1 mg Clonazepam (Clonazepam Odt 0.5 Mg Tab.Rapdis) 0.5 mg PO BID PRN PRN Reason: severe anxiety/sleep Last Admin: 02/27/25 23:54 Dose: 0.5 mg Fluphenazine HCl (Fluphenazine Hcl 2.5 Mg Tablet) 2.5 mg PO BID [facility] Last Admin: 03/01/25 09:10 Dose: 2.5 mg Fluticasone/Vilanterol (Fluticasone/Vilanterol 200/25 Blst.W.Dev) 1 puff INHALE RDAILY [facility] Last Admin: 03/01/25 09:09 Dose: 1 puff Guaifenesin (Guaifenesin 200 Mg/10 Ml 10 Ml Liquid) 10 ml PO Q6H PRN PRN Reason: Cough Hydrochlorothiazide (Hydrochlorothiazide 25 Mg Tablet) 25 mg PO DAILY [facility] Last Admin: 03/01/25 09:09 Dose: 25 mg Levetiracetam (Levetiracetam 250 Mg Tablet) 250 mg PO BID [facility] Last Admin: 03/01/25 09:10 Dose: 250 mg Magnesium Hydroxide (Milk Of Magnesia 30 Ml Oral.Susp) 30 ml PO DAILY PRN PRN Reason: Constipation Methimazole (Methimazole 5 Mg Tablet) 5 mg PO DAILY [facility] Last Admin: 03/01/25 09:10 Dose: 5 mg Nifedipine (Nifedipine Er 30 Mg Tab.Er.24) 30 mg PO DAILY [facility]; Protocol Last Admin: 03/01/25 09:10 Dose: 30 mg Olanzapine (Olanzapine 10 Mg Tablet) 10 mg PO Q6H PRN PRN Reason: severe agitation Last Admin: 02/25/25 13:21 Dose: 10 mg Olanzapine (Olanzapine 10 Mg Vial) 10 mg IM BID PRN PRN Reason: if refuses oral per court orde Last Admin: 02/09/25 11:00 Dose: 10 mg Tiotropium [place] (Tiotropium [place] 2.5 Mcg 1 Puff/2.5 Mcg Mist.Inhal) 1 puff INHALE RDAILY [facility] Last Admin: 03/01/25 09:09 Dose: 1 puff Trazodone HCl (Trazodone Hcl 50 Mg Tablet) 50 mg PO BEDTIME MRX1 PRN PRN Reason: Insomnia Last Admin: 02/25/25 19:45 Dose: 50 mg Allergies Allergies Allergy/AdvReac Type Severity Reaction Status Date / Time latex Allergy Unknown Verified 01/16/25 20:11 peanut Allergy Unknown Verified 01/16/25 20:11 Penicillins Allergy Unknown Verified 01/16/25 20:11 Assessment & Plan Assessment & Plan (1) Psychosis: Status: Acute Code(s): F29 - Unspecified psychosis not due to a substance or known physiological condition Plan Mrs. Sharif is a 69 year-old woman who presents with a 3 month hx of new onset of psychosis (AH) and combination of paranoid delusions and cap gras delusions. No prior psychiatric hx. She does have of cocaine use but apparently had not used in some years. Daughter suspects she may have relapsed but no ongoing use. Pt presents with more complex theme of delusions. No additional medical work up available including head CT. CBC and cmp unremarkable. 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 It may be related to dementia process but complexity of delusions and psychosis not the common presentation for dementia that have psychosis early on such as in vascular dementia or LBD. Pt presents as gravely disable to able to care for self due to symptoms of psychosis and delusions. 02/03 increase night time risperidone 2mg po qhs increase cogetin at bedtime to 1mg po qhs. lower daily dose to 0.5mg po daily. continue cogentin 0.5mg po daily. clonazepam as prn olanzapine as prn for agitation 02/04 continue tx. 02/05 continue tx. 02/06 continue current dose of risperidone. NOTE THAT pt can't take doses higher than 3 mg/day of risperidone as higher doses had severe EPS. can use olanzapine as well per court order. 02/07/25: Patient has been agitated yelling loudly exist seeking, delusional thinking her daughter/son outside at the door to pick her up. PRNs given in the morning with mild effect. Patient became agitated, aggressive\, assaultive to 1 of the staff on the floor, yelling and hitting her face so grabbing her neck. Physical was started at 16:31 to 1634. Patient was given IM medication of Zyprexa 10 and Valium 10 with good effect. Tomorrow plan: Patient will be benefit from Valium 10 mg twice a day and Zyprexa 5 mg 3 times a day is added into her scheduled medication as current plan with risperidone is not effective. Patient also having a backup for risperidone if she refused. 02/08/25: Slept most of the morning and last night. In better behavior control. No aggressive behavior. She is quiet, self dialogue, and medication compliant. Due to receive restrain medication yesterday. I did not make any medication change. But the Valium and additional Zyprexa appears to be helpful. 02/09 will try to change keppra to depakote for seizures as keppra may exacerbate psychosis. increase risperidone 1mg po daily and 2mg po qhs. may need to add second antipsychotic. 02/10 continues to present as paranoid with AH. at times declines oral medications, requiring IM back per court order. 02/11 continue tx. 02/12 continue tx. 02/13 continue tx. 02/14: no changes today. Monitor for agitation around confusion about hospitalization 02/15: no changes today, self dialogue more overt/extensive today 02/16 add olanzapine 5mg po qhs. continue risperidone. minimal improvement if any. 02/17 continue tx. 02/18 seems more somnolent with bedtime olanzapine, will continue to monitor. 02/19 cbc showed thrombocytopenia, which is new and suspect related to depakote 02/20 pt appears more sedated since addition of olanzapine at bedtime. She continues to self dialogue. minimal improvement. 02/21: Continue current management and treatment plan. 02/22: continue current management and treatment plan. 02/23 continue tx. may need to affirm HCP try different antipsychotic. 02/24 continue tx. results of LENORE 1:360, pattern homogenous A. 02/25 will try rexulti, lower risperidone. pending coordination of medical care to see if underlying autoimmune condition has anything to do with current presentation. 02/28 - pt has started prolixin no ill effects seen mild benefit so far 03/01 continues redirectable and pleasant though sometimes can be loud talking to self - CTP Reason for continued inpatient stay Substantial Risk for: inability to function and rapid decompensation Time Spent With Patient Time: Total time managing care of this patient today ____ minutes.
[2025-03-01 20:00] VITALS: BP 134/60; PULSE 61; RESP 20; TEMP 36.9; O2SAT 94
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
[2025-03-02 09:12] VITALS: BP 135/65; PULSE 60; RESP 16; TEMP 36.8; O2SAT 97
[2025-03-02] MEDS: clonazePAM ODT 0.5 MG TAB.RAPDIS PO (19:56)
[2025-03-02 20:00] VITALS: BP 141/64; PULSE 56; RESP 18; TEMP 36.6; O2SAT 97
[2025-03-03] MEDS: NIFEdipine ER 30 MG TAB.ER.24 PO (08:50)
--- NOTE | 2025-03-03 14:04 | PM.NEUROCN ---
History of Present Illness Data of Consult Service Date: 03/03/25 Primary Care Provider: Unknown Physician HPI Reason for consult: Encephalopathy 69-year-old female with a past medical history of COPD, rheumatoid arthritis, hypertension, hyperthyroidism, legally blind with hearing loss. She presented to the ED with paranoia. I was asked to see her for unexplained psychiatric symptom or psychotic symptoms. She was not complaining of any and when I saw her she was sitting in a chair saying that he wanted to go home. There was no evidence of any recent focal weakness or seizure-like episode. No recent cold or flu-like illness or rash. Apparently she was noted to be refusing medications including antipsychotics and was noted to be having significant delusions and hallucinations. Review of Systems Review of Systems: As per HPI. [facility] Social History Social History Household Members: Unknown / Unable to assess Housing: Unknown / Unable to assess Do you presently have visiting nurse or other home services: No Patient Tobacco Use Status: Former Tobacco user Tobacco use type: Cigarette Smoked in Last 30 Days: No e-Cigarette/Vaping Use: Never Used Patient Interested in Nicotine Replacement: No Patient Given Instructions on How to Stop Smoking: No Second Hand Smoke Exposure: No Currently Displaying Signs/Symptoms of Drug Intoxication Withdrawal: No Spiritual Healthcare Practices: unknown, pt unable to respond due to mental status/psychosis Gnosticist Healthcare Practices: unknown, pt unable to respond due to mental status/psychosis Cultural Healthcare Practices: unknown, pt unable to respond due to mental status/psychosis Advance Directives: No Advance Directives Information Provided: No Do you have thoughts of harming others: None Do you have a plan to hurt others: No Plan Recently lost weight without trying: Unsure How much weight loss: Unsure Eating poorly because of decreased appetite: No Nutrition screen score: 4 Nutrition Risks: No Nutritional Risk Patient : No : No Poor oral hygiene: No service: No Sexual orientation: Straight/Heterosexual Meds Allergies Allergy/AdvReac Type Severity Reaction Status Date / Time latex Allergy Unknown Verified 01/16/25 20:11 peanut Allergy Unknown Verified 01/16/25 20:11 Penicillins Allergy Unknown Verified 01/16/25 20:11 Active Medications: Current Medications Acetaminophen (Acetaminophen 325 Mg Tablet) 650 mg PO Q6H PRN PRN Reason: Headache/Pain, Scale 1-10 Last Admin: 02/22/25 11:34 Dose: 650 mg Al Hydroxide/Mg Hydroxide (Magnesium Hydrox/Alum Hydrox 30 Ml Oral.Susp) 30 ml PO Q6H PRN PRN Reason: Heartburn/Nausea Albuterol Sulfate (Albuterol Sulfate 90 Mcg 8 Gm Inhaler) 2 puff INHALE Q4H PRN PRN Reason: Shortness Of Breath Or Wheezing Atorvastatin Calcium (Atorvastatin Calcium 40 Mg Tablet) 40 mg PO DAILY [facility] Last Admin: 03/03/25 08:50 Dose: 40 mg Benztropine Mesylate (Benztropine Mesylate 0.5 Mg Tablet) 0.5 mg PO DAILY [facility] Last Admin: 03/03/25 08:49 Dose: 0.5 mg Benztropine Mesylate (Benztropine Mesylate 1 Mg Tablet) 1 mg PO BEDTIME [facility] Last Admin: 03/02/25 19:57 Dose: 1 mg Clonazepam (Clonazepam Odt 0.5 Mg Tab.Rapdis) 0.5 mg PO BID PRN PRN Reason: severe anxiety/sleep Last Admin: 03/02/25 19:56 Dose: 0.5 mg Fluphenazine HCl (Fluphenazine Hcl 2.5 Mg/Ml 10 Ml Vial) 2.5 mg IM BID PRN PRN Reason: give if refuses oral per HCP Last Admin: 03/03/25 09:51 Dose: 2.5 mg Fluphenazine HCl (Fluphenazine Hcl 2.5 Mg Tablet) 2.5 mg PO DAILY [facility] Last Admin: 03/03/25 09:50 Dose: Not Given Fluphenazine HCl (Fluphenazine Hcl 5 Mg Tablet) 5 mg PO BEDTIME [facility] Last Admin: 03/02/25 19:56 Dose: 5 mg Fluticasone/Vilanterol (Fluticasone/Vilanterol 200/25 Blst.W.Dev) 1 puff INHALE RDAILY [facility] Last Admin: 03/03/25 10:09 Dose: Not Given Guaifenesin (Guaifenesin 200 Mg/10 Ml 10 Ml Liquid) 10 ml PO Q6H PRN PRN Reason: Cough Hydrochlorothiazide (Hydrochlorothiazide 25 Mg Tablet) 25 mg PO DAILY [facility] Last Admin: 03/03/25 08:49 Dose: 25 mg Levetiracetam (Levetiracetam 250 Mg Tablet) 250 mg PO BID [facility] Last Admin: 03/03/25 08:49 Dose: 250 mg Magnesium Hydroxide (Milk Of Magnesia 30 Ml Oral.Susp) 30 ml PO DAILY PRN PRN Reason: Constipation Methimazole (Methimazole 5 Mg Tablet) 5 mg PO DAILY [facility] Last Admin: 03/03/25 08:49 Dose: 5 mg Nifedipine (Nifedipine Er 30 Mg Tab.Er.24) 30 mg PO DAILY [facility]; Protocol Last Admin: 03/03/25 08:50 Dose: 30 mg Olanzapine (Olanzapine 10 Mg Tablet) 10 mg PO Q6H PRN PRN Reason: severe agitation Last Admin: 03/02/25 19:57 Dose: 10 mg Tiotropium [place] (Tiotropium [place] 2.5 Mcg 1 Puff/2.5 Mcg Mist.Inhal) 1 puff INHALE RDAILY [facility] Last Admin: 03/03/25 10:10 Dose: Not Given Trazodone HCl (Trazodone Hcl 50 Mg Tablet) 50 mg PO BEDTIME MRX1 PRN PRN Reason: Insomnia Last Admin: 03/02/25 19:57 Dose: 50 mg Home Medications ?Medication ?Instructions ?Recorded ?Confirmed ?Last Taken ?Type albuterol sulfate 90 mcg/actuation 2 puff inhalation Q4-6H PRN 01/18/25 01/18/25 Unknown History aerosol inhaler Shortness Of Breath Or Wheezing atorvastatin 40 mg tablet 40 mg PO DAILY 01/18/25 01/18/25 Unknown History chlorthalidone 25 mg tablet 25 mg PO DAILY 01/18/25 01/18/25 Unknown History fluticasone 500 mcg-salmeterol 50 1 inh inhalation DAILY 01/18/25 01/18/25 Unknown History mcg/dose blistr powdr for inhalation (Edxela Inhub) levetiracetam 500 mg tablet 500 mg PO BID 01/18/25 01/18/25 Unknown History methimazole 5 mg tablet 5 mg PO DAILY 01/18/25 01/18/25 Unknown History nifedipine 30 mg tablet,extended 30 mg PO DAILY 01/18/25 01/18/25 Unknown History release 24 hr terbinafine HCl 250 mg tablet 250 mg PO DAILY 01/18/25 01/18/25 Unknown History umeclidinium 62.5 mcg/actuation 1 inh inhalation DAILY 01/18/25 01/18/25 Unknown History blister powder for inhalation (Incruse Ellipta) Physical Exam Vital Signs: Vital Signs: Last Vital Signs Temp 97.8 F 03/02/25 20:00 Pulse 56 03/02/25 20:00 Resp 18 03/02/25 20:00 BP 141/64 H 03/02/25 20:00 Pulse Ox 97 03/02/25 20:00 O2 Del Method Room Air 03/02/25 20:00 BMI result Body Mass Index 29.5 Neuro: Other: She is alert and awake continuously talking when I saw her stating that she wanted to go home. She could not hear me even when I shouted next to her ear. She also was not able to see my hand in front of her eyes. She was moving her eyes and not resisting examination. Face was symmetrical. There was no gaze deviation. Pupils are about 3 mm. There was no focal arm or leg weakness and plantars were flexor. There was no abnormal gesturing or movements. Results Labs 02/19/25 07:48 02/19/25 07:48 Assessment and Plan (1) Encephalopathy: Qualifiers: Encephalopathy type: unspecified encephalopathy Qualified Code(s): G93.40 - Encephalopathy, unspecified Status: Acute 69 years old woman who has past medical history is not precisely known to me. It look like that she suffered from a behavioral disorder including symptoms that required antipsychotic treatment with a olanzapine. This would suggest significant mental pathology. If workup for a physical reason has not been done, I would recommend an MRI of brain with and without contrast, repeat sed rate, test for syphilis, Lyme, and HIV to start with. Further course of investigation dependent upon these initial tests. An EEG might also help. Procedures Date of Service Date of Service: 03/03/25
--- NOTE | 2025-03-03 17:01 | HO.PSYCHPN ---
Subjective Subjective Date of Service: 03/03/25 Reason For Visit: Psychosis Subjective Notes: Conditional Voluntary Healthcare Proxy: Yes Interim History: Pt sleeping through the night. Pt continues to present with AH, self dialoguing, paranoid thinking medications are poisoned. She does have a back up IM. [place], difficult to communicate with her, still waiting for batteries for hearing aid. daughter reports she sent batteries two weeks ago, but have not arrived here to the unit. Pt seen by neurology, recommended adding HIV/RPR/Lyme, MRI but pt can't have MRI due to cochlear implant. Medication Compliance: Intermittent Review of Systems Review of Systems As per HPI. Yes all other systems are reviewed and are negative, Unobtainable due to mental status and Other (patient refused to answer ROS questions) Constitutional: Reports as per HPI Eyes: Reports as per HPI Reports as per HPI Cardiovascular: Reports as per HPI Respiratory: Reports as per HPI Gastrointestinal: Reports as per HPI Musculoskeletal: Reports as per HPI Skin/Breast: Reports as per HPI Reports as per HPI Psychiatric: Reports as per HPI Endocrine: Reports as per HPI Hematologic/Lymphatic: Reports as per HPI Allergic/Immunologic: Reports as per HPI Mental Status Exam Mental Status Exam Narrative: Appearance: hospital attire, adequate grooming and hygiene Behavior: belligerent at times Orientation: alert, confused Memory: impaired Attention: able to attend to the encounter discussion Psychomotor Function: no agitation or slowing; no abnormal gestures or movements Speech: loud Mood: fine Affect: irritable Thought Process: disorganized Thought Content: denies SI/HI Hallucinations: active engagement in self dialogue delusions: paranoid Insight: impairment Judgment: impairment Impulsivity: none noted Diagnostics Vital Signs (24Hr): Vital Signs - 24 hr 03/02/25 20:00 Temperature 97.8 F Pulse Rate 56 Respiratory Rate 18 Blood Pressure 141/64 H Pulse Oximetry 97 Oxygen Delivery Method Room Air BMI result Body Mass Index 29.5 Labs 02/19/25 07:48 03/05/25 07:38 Labs: Laboratory Results - last 48 hr 03/03/25 11:07 Rheumatoid Factor 141.3 H Medications Medications Current Medications Acetaminophen (Acetaminophen 325 Mg Tablet) 650 mg PO Q6H PRN PRN Reason: Headache/Pain, Scale 1-10 Last Admin: 02/22/25 11:34 Dose: 650 mg Al Hydroxide/Mg Hydroxide (Magnesium Hydrox/Alum Hydrox 30 Ml Oral.Susp) 30 ml PO Q6H PRN PRN Reason: Heartburn/Nausea Albuterol Sulfate (Albuterol Sulfate 90 Mcg 8 Gm Inhaler) 2 puff INHALE Q4H PRN PRN Reason: Shortness Of Breath Or Wheezing Atorvastatin Calcium (Atorvastatin Calcium 40 Mg Tablet) 40 mg PO DAILY [facility] Last Admin: 03/03/25 08:50 Dose: 40 mg Benztropine Mesylate (Benztropine Mesylate 0.5 Mg Tablet) 0.5 mg PO DAILY [facility] Last Admin: 03/03/25 08:49 Dose: 0.5 mg Benztropine Mesylate (Benztropine Mesylate 1 Mg Tablet) 1 mg PO BEDTIME [facility] Last Admin: 03/02/25 19:57 Dose: 1 mg Clonazepam (Clonazepam Odt 0.5 Mg Tab.Rapdis) 0.5 mg PO BID PRN PRN Reason: severe anxiety/sleep Last Admin: 03/02/25 19:56 Dose: 0.5 mg Fluphenazine HCl (Fluphenazine Hcl 2.5 Mg/Ml 10 Ml Vial) 2.5 mg IM BID PRN PRN Reason: give if refuses oral per HCP Last Admin: 03/03/25 09:51 Dose: 2.5 mg Fluphenazine HCl (Fluphenazine Hcl 2.5 Mg Tablet) 2.5 mg PO DAILY [facility] Last Admin: 03/03/25 09:50 Dose: Not Given Fluphenazine HCl (Fluphenazine Hcl 5 Mg Tablet) 5 mg PO BEDTIME [facility] Last Admin: 03/02/25 19:56 Dose: 5 mg Fluticasone/Vilanterol (Fluticasone/Vilanterol 200/25 Blst.W.Dev) 1 puff INHALE RDAILY [facility] Last Admin: 03/03/25 10:09 Dose: Not Given Guaifenesin (Guaifenesin 200 Mg/10 Ml 10 Ml Liquid) 10 ml PO Q6H PRN PRN Reason: Cough Hydrochlorothiazide (Hydrochlorothiazide 25 Mg Tablet) 25 mg PO DAILY [facility] Last Admin: 03/03/25 08:49 Dose: 25 mg Levetiracetam (Levetiracetam 250 Mg Tablet) 250 mg PO BID [facility] Last Admin: 03/03/25 08:49 Dose: 250 mg Magnesium Hydroxide (Milk Of Magnesia 30 Ml Oral.Susp) 30 ml PO DAILY PRN PRN Reason: Constipation Methimazole (Methimazole 5 Mg Tablet) 5 mg PO DAILY [facility] Last Admin: 03/03/25 08:49 Dose: 5 mg Nifedipine (Nifedipine Er 30 Mg Tab.Er.24) 30 mg PO DAILY [facility]; Protocol Last Admin: 03/03/25 08:50 Dose: 30 mg Olanzapine (Olanzapine 10 Mg Tablet) 10 mg PO Q6H PRN PRN Reason: severe agitation Last Admin: 03/02/25 19:57 Dose: 10 mg Tiotropium [place] (Tiotropium [place] 2.5 Mcg 1 Puff/2.5 Mcg Mist.Inhal) 1 puff INHALE RDAILY [facility] Last Admin: 03/03/25 10:10 Dose: Not Given Trazodone HCl (Trazodone Hcl 50 Mg Tablet) 50 mg PO BEDTIME MRX1 PRN PRN Reason: Insomnia Last Admin: 03/02/25 19:57 Dose: 50 mg Allergies Allergies Allergy/AdvReac Type Severity Reaction Status Date / Time latex Allergy Unknown Verified 01/16/25 20:11 peanut Allergy Unknown Verified 01/16/25 20:11 Penicillins Allergy Unknown Verified 01/16/25 20:11 Assessment & Plan Assessment & Plan (1) Psychosis: Status: Acute Code(s): F29 - Unspecified psychosis not due to a substance or known physiological condition Plan Mrs. Sharif is a 69 year-old woman who presents with a 3 month hx of new onset of psychosis (AH) and combination of paranoid delusions and cap gras delusions. No prior psychiatric hx. She does have of cocaine use but apparently had not used in some years. Daughter suspects she may have relapsed but no ongoing use. Pt presents with more complex theme of delusions. No additional medical work up available including head CT. CBC and cmp unremarkable. 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 It may be related to dementia process but complexity of delusions and psychosis not the common presentation for dementia that have psychosis early on such as in vascular dementia or LBD. Pt presents as gravely disable to able to care for self due to symptoms of psychosis and delusions. 7/8 increase night time risperidone 2mg po qhs increase cogetin at bedtime to 1mg po qhs. lower daily dose to 0.5mg po daily. continue cogentin 0.5mg po daily. clonazepam as prn olanzapine as prn for agitation 02/04 continue tx. 02/05 continue tx. 02/06 continue current dose of risperidone. NOTE THAT pt can't take doses higher than 3 mg/day of risperidone as higher doses had severe EPS. can use olanzapine as well per court order. 02/07/25: Patient has been agitated yelling loudly exist seeking, delusional thinking her daughter/son outside at the door to pick her up. PRNs given in the morning with mild effect. Patient became agitated, aggressive\, assaultive to 1 of the staff on the floor, yelling and hitting her face so grabbing her neck. Physical was started at 16:31 to 1634. Patient was given IM medication of Zyprexa 10 and Valium 10 with good effect. Tomorrow plan: Patient will be benefit from Valium 10 mg twice a day and Zyprexa 5 mg 3 times a day is added into her scheduled medication as current plan with risperidone is not effective. Patient also having a backup for risperidone if she refused. 02/08/25: Slept most of the morning and last night. In better behavior control. No aggressive behavior. She is quiet, self dialogue, and medication compliant. Due to receive restrain medication yesterday. I did not make any medication change. But the Valium and additional Zyprexa appears to be helpful. 02/09 will try to change keppra to depakote for seizures as keppra may exacerbate psychosis. increase risperidone 1mg po daily and 2mg po qhs. may need to add second antipsychotic. 02/10 continues to present as paranoid with AH. at times declines oral medications, requiring IM back per court order. 02/11 continue tx. 02/12 continue tx. 02/13 continue tx. 02/14: no changes today. Monitor for agitation around confusion about hospitalization 02/15: no changes today, self dialogue more overt/extensive today 02/16 add olanzapine 5mg po qhs. continue risperidone. minimal improvement if any. 02/17 continue tx. 02/18 seems more somnolent with bedtime olanzapine, will continue to monitor. 02/19 cbc showed thrombocytopenia, which is new and suspect related to depakote 02/20 pt appears more sedated since addition of olanzapine at bedtime. She continues to self dialogue. minimal improvement. 02/21: Continue current management and treatment plan. 02/22: continue current management and treatment plan. 02/23 continue tx. may need to affirm HCP try different antipsychotic. 02/24 continue tx. results of LENORE 1:360, pattern homogenous A. 02/25 will try rexulti, lower risperidone. pending coordination of medical care to see if underlying autoimmune condition has anything to do with current presentation. 02/28 - pt has started prolixin no ill effects seen mild benefit so far 03/01 continues redirectable and pleasant though sometimes can be loud talking to self - CTP 03/02 increase prolixin to 5mg po qhs, continue 2.5mg po daily. back IM if refuses oral prolixin. 03/03 seen by neurology, added HIV/RPR/Lyme, continue tx. Reason for continued inpatient stay Substantial Risk for: inability to function Time Spent With Patient Time: Total time managing care of this patient today ____ minutes.
[2025-03-03 20:00] VITALS: BP 131/54; PULSE 57; RESP 18; TEMP 36.5; O2SAT 95
[2025-03-03] MEDS: clonazePAM ODT 0.5 MG TAB.RAPDIS PO (20:33)
[2025-03-04 07:56] LABS: HIV Num 1 0.28 S/CO (0.00-0.99)
[2025-03-04] MEDS: NIFEdipine ER 30 MG TAB.ER.24 PO (09:49)
--- NOTE | 2025-03-04 10:09 | HO.HCP ---
Health Care Proxy Invocation Health Care Proxy Declaration: I, Milena Dimas , on the date cited below, have determined that, ___Parris Sharif , lacks the capacity to make or communicate, informed health care decision. This determination is made in accordance with accepted standards of medical judgment and pursuant to [place], the [facility] Care Proxy Law. The cause, nature, extent and probable duration of the patient's incapacity are described below: Cause:psychosis affecting awareness of reality, attention, judgment/insight. Nature:psychosis NOS Extent:reassess as patient able to show improvement Probable Duration of Patient's Incapacity:reassess in 6 months
[2025-03-04 20:00] VITALS: BP 135/63; PULSE 62; RESP 17; TEMP 36.6; O2SAT 98
--- NOTE | 2025-03-04 21:28 | HO.PSYCHPN ---
Subjective Subjective Date of Service: 03/04/25 Reason For Visit: Psychosis Subjective Notes: Section 8 Healthcare Proxy: Yes Interim History: Pt slept through the night. She continues to present with paranoid delusions, auditory hallucinations. 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 Last Neurology appointment 01/2024. Missed appointment with rheumatology 05/2024, last seen in 02/26/2024. Diagnostics Vital Signs (24Hr): BMI result Body Mass Index 29.5 Labs 02/19/25 07:48 03/05/25 07:38 Labs: Laboratory Results - last 48 hr 03/03/25 03/03/25 11:07 18:31 Rheumatoid Factor 141.3 H HIV 1&2 Ab/P24 Ag 4thGn Nonreactive Medications Medications Current Medications Acetaminophen (Acetaminophen 325 Mg Tablet) 650 mg PO Q6H PRN PRN Reason: Headache/Pain, Scale 1-10 Last Admin: 02/22/25 11:34 Dose: 650 mg Al Hydroxide/Mg Hydroxide (Magnesium Hydrox/Alum Hydrox 30 Ml Oral.Susp) 30 ml PO Q6H PRN PRN Reason: Heartburn/Nausea Albuterol Sulfate (Albuterol Sulfate 90 Mcg 8 Gm Inhaler) 2 puff INHALE Q4H PRN PRN Reason: Shortness Of Breath Or Wheezing Atorvastatin Calcium (Atorvastatin Calcium 40 Mg Tablet) 40 mg PO DAILY [facility] Last Admin: 03/04/25 09:49 Dose: 40 mg Benztropine Mesylate (Benztropine Mesylate 0.5 Mg Tablet) 0.5 mg PO DAILY [facility] Last Admin: 03/04/25 09:49 Dose: 0.5 mg Benztropine Mesylate (Benztropine Mesylate 1 Mg Tablet) 1 mg PO BEDTIME [facility] Last Admin: 03/04/25 20:57 Dose: 1 mg Clonazepam (Clonazepam Odt 0.5 Mg Tab.Rapdis) 0.5 mg PO BID PRN PRN Reason: severe anxiety/sleep Last Admin: 03/03/25 20:33 Dose: 0.5 mg Fluphenazine HCl (Fluphenazine Hcl 2.5 Mg/Ml 10 Ml Vial) 2.5 mg IM BID PRN PRN Reason: give if refuses oral per HCP Last Admin: 03/03/25 09:51 Dose: 2.5 mg Fluphenazine HCl (Fluphenazine Hcl 2.5 Mg Tablet) 2.5 mg PO DAILY [facility] Last Admin: 03/04/25 09:50 Dose: 2.5 mg Fluphenazine HCl (Fluphenazine Hcl 5 Mg Tablet) 5 mg PO BEDTIME [facility] Last Admin: 03/04/25 21:05 Dose: Not Given Fluticasone/Vilanterol (Fluticasone/Vilanterol 200/25 Blst.W.Dev) 1 puff INHALE RDAILY [facility] Last Admin: 03/04/25 10:19 Dose: Not Given Guaifenesin (Guaifenesin 200 Mg/10 Ml 10 Ml Liquid) 10 ml PO Q6H PRN PRN Reason: Cough Hydrochlorothiazide (Hydrochlorothiazide 25 Mg Tablet) 25 mg PO DAILY [facility] Last Admin: 03/04/25 09:49 Dose: 25 mg Levetiracetam (Levetiracetam 250 Mg Tablet) 250 mg PO BID [facility] Last Admin: 03/04/25 20:57 Dose: 250 mg Magnesium Hydroxide (Milk Of Magnesia 30 Ml Oral.Susp) 30 ml PO DAILY PRN PRN Reason: Constipation Methimazole (Methimazole 5 Mg Tablet) 5 mg PO DAILY [facility] Last Admin: 03/04/25 09:49 Dose: 5 mg Nifedipine (Nifedipine Er 30 Mg Tab.Er.24) 30 mg PO DAILY [facility]; Protocol Last Admin: 03/04/25 09:49 Dose: 30 mg Olanzapine (Olanzapine 10 Mg Tablet) 10 mg PO Q6H PRN PRN Reason: severe agitation Last Admin: 03/03/25 20:33 Dose: 10 mg Tiotropium [place] (Tiotropium [place] 2.5 Mcg 1 Puff/2.5 Mcg Mist.Inhal) 1 puff INHALE RDAILY [facility] Last Admin: 03/04/25 10:18 Dose: Not Given Trazodone HCl (Trazodone Hcl 50 Mg Tablet) 50 mg PO BEDTIME MRX1 PRN PRN Reason: Insomnia Last Admin: 03/03/25 20:33 Dose: 50 mg Allergies Allergies Allergy/AdvReac Type Severity Reaction Status Date / Time latex Allergy Unknown Verified 01/16/25 20:11 peanut Allergy Unknown Verified 01/16/25 20:11 Penicillins Allergy Unknown Verified 01/16/25 20:11 Assessment & Plan Assessment & Plan (1) Psychosis: Status: Acute Code(s): F29 - Unspecified psychosis not due to a substance or known physiological condition (2) Rheumatoid arthritis involving hand with positive rheumatoid factor: Status: Acute Code(s): M05.749 - Rheumatoid arthritis with rheumatoid factor of unspecified hand without organ or systems involvement (3) COPD (chronic obstructive pulmonary disease): Status: Acute Code(s): J44.9 - Chronic obstructive pulmonary disease, unspecified (4) Trochanteric bursitis of both hips: Status: Acute Code(s): M70.61 - Trochanteric bursitis, right hip; M70.62 - Trochanteric bursitis, left hip Plan Mrs. Sharif is a 69 year-old woman who presents with a 3 month hx of new onset of psychosis (AH) and combination of paranoid delusions and cap gras delusions. No prior psychiatric hx. She does have of cocaine use but apparently had not used in some years. Daughter suspects she may have relapsed but no ongoing use. Pt presents with more complex theme of delusions. No additional medical work up available including head CT. CBC and cmp unremarkable. 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 It may be related to dementia process but complexity of delusions and psychosis not the common presentation for dementia that have psychosis early on such as in vascular dementia or LBD. Pt presents as gravely disable to able to care for self due to symptoms of psychosis and delusions. 02/03 increase night time risperidone 2mg po qhs increase cogetin at bedtime to 1mg po qhs. lower daily dose to 0.5mg po daily. continue cogentin 0.5mg po daily. clonazepam as prn olanzapine as prn for agitation 02/04 continue tx. 02/05 continue tx. 02/06 continue current dose of risperidone. NOTE THAT pt can't take doses higher than 3 mg/day of risperidone as higher doses had severe EPS. can use olanzapine as well per court order. 02/07/25: Patient has been agitated yelling loudly exist seeking, delusional thinking her daughter/son outside at the door to pick her up. PRNs given in the morning with mild effect. Patient became agitated, aggressive\, assaultive to 1 of the staff on the floor, yelling and hitting her face so grabbing her neck. Physical was started at 16:31 to 1634. Patient was given IM medication of Zyprexa 10 and Valium 10 with good effect. Tomorrow plan: Patient will be benefit from Valium 10 mg twice a day and Zyprexa 5 mg 3 times a day is added into her scheduled medication as current plan with risperidone is not effective. Patient also having a backup for risperidone if she refused. 02/08/25: Slept most of the morning and last night. In better behavior control. No aggressive behavior. She is quiet, self dialogue, and medication compliant. Due to receive restrain medication yesterday. I did not make any medication change. But the Valium and additional Zyprexa appears to be helpful. 02/09 will try to change keppra to depakote for seizures as keppra may exacerbate psychosis. increase risperidone 1mg po daily and 2mg po qhs. may need to add second antipsychotic. 02/10 continues to present as paranoid with AH. at times declines oral medications, requiring IM back per court order. 02/11 continue tx. 02/12 continue tx. 02/13 continue tx. 02/14: no changes today. Monitor for agitation around confusion about hospitalization 02/15: no changes today, self dialogue more overt/extensive today 02/16 add olanzapine 5mg po qhs. continue risperidone. minimal improvement if any. 02/17 continue tx. 02/18 seems more somnolent with bedtime olanzapine, will continue to monitor. 02/19 cbc showed thrombocytopenia, which is new and suspect related to depakote 02/20 pt appears more sedated since addition of olanzapine at bedtime. She continues to self dialogue. minimal improvement. 02/21: Continue current management and treatment plan. 02/22: continue current management and treatment plan. 02/23 continue tx. may need to affirm HCP try different antipsychotic. 02/24 continue tx. results of LENORE 1:360, pattern homogenous A. 02/25 will try rexulti, lower risperidone. pending coordination of medical care to see if underlying autoimmune condition has anything to do with current presentation. 02/26 discussed with hospital tax attorney to dismiss sect 8, HCP invoked and can consent to other treatment. daughter Maricruz give permission to try different antipsychotic. 02/27 decrease risperidone to 1mg po daily, start prolixin 2.5mg po qhs, then increase to BID. continue olanzapine prn for agitation. olanzapine as well per court order. 03/03 pt seen by neurology, added HIV/RPR/LYME, can't have MRI due to cochlear implant. 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 Last Neurology appointment 01/2024. Missed appointment with rheumatology 05/2024, last seen in 02/26/2024. - Pt can't have MRI due to cochlear implant. Will try after consultation with radiology head CT with contrast. - continue prolixin 2.5mg po daily, 5mg po qhs. will d/c risperidone, increase prolixin 5mg po BID, back up IM. Reason for continued inpatient stay Substantial Risk for: inability to function Time Spent With Patient Time: Total time managing care of this patient today ____ minutes.
[2025-03-05 08:00] VITALS: BP 111/56; PULSE 54; RESP 16; TEMP 36.2; O2SAT 98
[2025-03-05 08:02] LABS: Alanine Aminotransferase 30 U/L (0-31); Albumin Level 4.1 g/dL (3.5-5.0); Alkaline Phosphatase 69 U/L (39-117); Anion Gap 10 (12-20); Aspartate Amino Transferase 27 U/L (5-31); Blood Urea Nitrogen 28 mg/dL (9-16); Calcium 9.7 mg/dL (8.4-10.2); Carbon Dioxide 32 mmol/L (22-29); Chloride 103 mmol/L (96-108); Creatinine Clr Calc Pharmacy 52.6; Estimated Glomerular Filt Rate 55; Potassium 4.4 mmol/L (3.3-5.1); Sodium 141 mmol/L (135-145); Total Protein 7.6 g/dL (6.5-8.0)
[2025-03-05 08:29] VITALS: BP 111/56
[2025-03-05 08:32] VITALS: BP 115/56
[2025-03-05] MEDS: NIFEdipine ER 30 MG TAB.ER.24 PO (08:32)
[2025-03-05] MEDS: OLANZapine 10 MG VIAL IM (14:59)
[2025-03-05] MEDS: diazePAM 10 MG/2 ML CARTRIDGE 2.5 MG IM (14:59)
[2025-03-05 18:53] LABS: Lyme Abs Screen <0.90 index
[2025-03-05 20:00] VITALS: BP 112/64; PULSE 56; RESP 17; TEMP 36.3; O2SAT 98
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
[2025-03-06 11:19] VITALS: BP 121/57; PULSE 60; RESP 14; TEMP 36.6; O2SAT 98
--- NOTE | 2025-03-06 16:28 | HO.PSYCHPN ---
Subjective Subjective Date of Service: 03/06/25 Reason For Visit: Psychosis Subjective Notes: Conditional Voluntary Healthcare Proxy: Yes Interim History: Pt slept through the night. She continues to present with paranoid delusions, auditory hallucinations. She was sitting calmer but still ongoing AH and responding to them. This feature writer spoke with pt's biomedical engineer, Dr. Al obtained collateral information. Will coordinate with neurology and rheumatology once LP results are available. r/o reoccurance of pachymeningitis, lupus or other autoimmune cause for psychosis. 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 Last Neurology appointment 01/2024. Missed appointment with rheumatology 05/2024, last seen in 02/26/2024. Review of Systems Review of Systems As per HPI. Yes all other systems are reviewed and are negative, Unobtainable due to mental status and Other (patient refused to answer ROS questions) Constitutional: Reports as per HPI Eyes: Reports as per HPI Reports as per HPI Cardiovascular: Reports as per HPI Respiratory: Reports as per HPI Gastrointestinal: Reports as per HPI Musculoskeletal: Reports as per HPI Skin/Breast: Reports as per HPI Reports as per HPI Psychiatric: Reports as per HPI Endocrine: Reports as per HPI Hematologic/Lymphatic: Reports as per HPI Allergic/Immunologic: Reports as per HPI Mental Status Exam Mental Status Exam Narrative: Appearance: hospital attire, adequate grooming and hygiene Behavior: belligerent at times Orientation: alert, confused Memory: impaired Attention: able to attend to the encounter discussion Psychomotor Function: no agitation or slowing; no abnormal gestures or movements Speech: loud Mood: fine Affect: irritable Thought Process: disorganized Thought Content: denies SI/HI Hallucinations: active engagement in self dialogue delusions: paranoid Insight: impairment Judgment: impairment Impulsivity: none noted Patient Appearance: Appropriate and Unkempt Patient Orientation: Person and Situation Level of Consciousness: Awake and Restless Patient Behavior: Talkative and Poor Eye Contact Mood Description: Labile Affect Description: Labile Patient Cognition Impaired: No Ability to Follow Directions: Poor Speech Pattern: Rambling and Poor Articulation Memory Description: Remote Impaired Diagnostics Vital Signs (24Hr): Vital Signs - 24 hr 03/05/25 20:00 03/06/25 11:19 Temperature 97.3 F 97.9 F Pulse Rate 56 60 Respiratory Rate 17 14 Blood Pressure 112/64 121/57 L Pulse Oximetry 98 98 Oxygen Delivery Method Room Air Room Air BMI result Body Mass Index 29.5 Labs 02/19/25 07:48 03/05/25 07:38 Labs: Laboratory Results - last 48 hr 03/03/25 03/03/25 03/05/25 11:07 18:31 07:38 Sodium 141 Potassium 4.4 Chloride 103 Carbon Dioxide 32 H Anion Gap 10 L BUN 28 H Creatinine 1.01 Estim Creat Clear Calc 52.6 Estimated GFR 55 Random Glucose 86 Calcium 9.7 Total Bilirubin 0.2 AST 27 ALT 30 Alkaline Phosphatase 69 Total Protein 7.6 Albumin 4.1 Double Strand DNA Ab 1 RPR Titer TNP RPR NON-REACTIVE Lyme Screen IgG & IgM <0.90 Imaging Radiology Impressions: ITS Impressions Head CT 03/05/25 15:51 IMPRESSION: 1. No acute intracranial abnormality. 2. Right-sided cochlear nerve implant with associated streak artifact. 3. Right-sided canal wall up mastoidectomy. Electronically signed by: Levi Greer MD 03/05/2025 04:25 PM EDT Medications Medications Current Medications Acetaminophen (Acetaminophen 325 Mg Tablet) 650 mg PO Q6H PRN PRN Reason: Headache/Pain, Scale 1-10 Last Admin: 02/22/25 11:34 Dose: 650 mg Al Hydroxide/Mg Hydroxide (Magnesium Hydrox/Alum Hydrox 30 Ml Oral.Susp) 30 ml PO Q6H PRN PRN Reason: Heartburn/Nausea Albuterol Sulfate (Albuterol Sulfate 90 Mcg 8 Gm Inhaler) 2 puff INHALE Q4H PRN PRN Reason: Shortness Of Breath Or Wheezing Atorvastatin Calcium (Atorvastatin Calcium 40 Mg Tablet) 40 mg PO DAILY [facility] Last Admin: 03/06/25 11:20 Dose: 40 mg Benztropine Mesylate (Benztropine Mesylate 0.5 Mg Tablet) 0.5 mg PO DAILY [facility] Last Admin: 03/06/25 11:20 Dose: 0.5 mg Benztropine Mesylate (Benztropine Mesylate 1 Mg Tablet) 1 mg PO BEDTIME [facility] Last Admin: 03/05/25 22:02 Dose: 1 mg Clonazepam (Clonazepam Odt 0.5 Mg Tab.Rapdis) 0.5 mg PO BID PRN PRN Reason: severe anxiety/sleep Last Admin: 03/03/25 20:33 Dose: 0.5 mg Fluphenazine HCl (Fluphenazine Hcl 2.5 Mg/Ml 10 Ml Vial) 2.5 mg IM BID PRN PRN Reason: give if refuses oral per HCP Last Admin: 03/05/25 09:42 Dose: 2.5 mg Fluphenazine HCl (Fluphenazine Hcl 2.5 Mg Tablet) 2.5 mg PO DAILY [facility] Last Admin: 03/06/25 11:46 Dose: 2.5 mg Fluphenazine HCl (Fluphenazine Hcl 5 Mg Tablet) 5 mg PO BEDTIME [facility] Last Admin: 03/05/25 22:02 Dose: 5 mg Fluticasone/Vilanterol (Fluticasone/Vilanterol 200/25 Blst.W.Dev) 1 puff INHALE RDAILY [facility] Last Admin: 03/06/25 11:43 Dose: Not Given Guaifenesin (Guaifenesin 200 Mg/10 Ml 10 Ml Liquid) 10 ml PO Q6H PRN PRN Reason: Cough Hydrochlorothiazide (Hydrochlorothiazide 25 Mg Tablet) 25 mg PO DAILY [facility] Last Admin: 03/06/25 11:20 Dose: 25 mg Levetiracetam (Levetiracetam 250 Mg Tablet) 250 mg PO BID [facility] Last Admin: 03/06/25 11:20 Dose: 250 mg Lorazepam (Lorazepam 1 Mg Tablet) 2 mg PO DAILY PRN PRN Reason: 40 mins before CTscan Last Admin: 03/05/25 12:51 Dose: 2 mg Magnesium Hydroxide (Milk Of Magnesia 30 Ml Oral.Susp) 30 ml PO DAILY PRN PRN Reason: Constipation Methimazole (Methimazole 5 Mg Tablet) 5 mg PO DAILY [facility] Last Admin: 03/06/25 11:44 Dose: 5 mg Nifedipine (Nifedipine Er 30 Mg Tab.Er.24) 30 mg PO DAILY [facility]; Protocol Last Admin: 03/06/25 11:44 Dose: Not Given Olanzapine (Olanzapine 10 Mg Tablet) 10 mg PO Q6H PRN PRN Reason: severe agitation Last Admin: 03/03/25 20:33 Dose: 10 mg Tiotropium [place] (Tiotropium [place] 2.5 Mcg 1 Puff/2.5 Mcg Mist.Inhal) 1 puff INHALE RDAILY [facility] Last Admin: 03/06/25 11:43 Dose: Not Given Trazodone HCl (Trazodone Hcl 50 Mg Tablet) 50 mg PO BEDTIME MRX1 PRN PRN Reason: Insomnia Last Admin: 03/03/25 20:33 Dose: 50 mg Allergies Allergies Allergy/AdvReac Type Severity Reaction Status Date / Time latex Allergy Unknown Verified 01/16/25 20:11 peanut Allergy Unknown Verified 01/16/25 20:11 Penicillins Allergy Unknown Verified 01/16/25 20:11 Assessment & Plan Assessment & Plan (1) Psychosis: Status: Acute Code(s): F29 - Unspecified psychosis not due to a substance or known physiological condition (2) Rheumatoid arthritis involving hand with positive rheumatoid factor: Status: Acute Code(s): M05.749 - Rheumatoid arthritis with rheumatoid factor of unspecified hand without organ or systems involvement (3) COPD (chronic obstructive pulmonary disease): Status: Acute Code(s): J44.9 - Chronic obstructive pulmonary disease, unspecified (4) Trochanteric bursitis of both hips: Status: Acute Code(s): M70.61 - Trochanteric bursitis, right hip; M70.62 - Trochanteric bursitis, left hip Plan Mrs. Sharif is a 69 year-old woman who presents with a 3 month hx of new onset of psychosis (AH) and combination of paranoid delusions and cap gras delusions. No prior psychiatric hx. She does have of cocaine use but apparently had not used in some years. Daughter suspects she may have relapsed but no ongoing use. Pt presents with more complex theme of delusions. No additional medical work up available including head CT. CBC and cmp unremarkable. 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 It may be related to dementia process but complexity of delusions and psychosis not the common presentation for dementia that have psychosis early on such as in vascular dementia or LBD. Pt presents as gravely disable to able to care for self due to symptoms of psychosis and delusions. 7/8 increase night time risperidone 2mg po qhs increase cogetin at bedtime to 1mg po qhs. lower daily dose to 0.5mg po daily. continue cogentin 0.5mg po daily. clonazepam as prn olanzapine as prn for agitation 02/04 continue tx. 02/05 continue tx. 02/06 continue current dose of risperidone. NOTE THAT pt can't take doses higher than 3 mg/day of risperidone as higher doses had severe EPS. can use olanzapine as well per court order. 02/07/25: Patient has been agitated yelling loudly exist seeking, delusional thinking her daughter/son outside at the door to pick her up. PRNs given in the morning with mild effect. Patient became agitated, aggressive\, assaultive to 1 of the staff on the floor, yelling and hitting her face so grabbing her neck. Physical was started at 16:31 to 1634. Patient was given IM medication of Zyprexa 10 and Valium 10 with good effect. Tomorrow plan: Patient will be benefit from Valium 10 mg twice a day and Zyprexa 5 mg 3 times a day is added into her scheduled medication as current plan with risperidone is not effective. Patient also having a backup for risperidone if she refused. 02/08/25: Slept most of the morning and last night. In better behavior control. No aggressive behavior. She is quiet, self dialogue, and medication compliant. Due to receive restrain medication yesterday. I did not make any medication change. But the Valium and additional Zyprexa appears to be helpful. 02/09 will try to change keppra to depakote for seizures as keppra may exacerbate psychosis. increase risperidone 1mg po daily and 2mg po qhs. may need to add second antipsychotic. 02/10 continues to present as paranoid with AH. at times declines oral medications, requiring IM back per court order. 02/11 continue tx. 02/12 continue tx. 02/13 continue tx. 02/14: no changes today. Monitor for agitation around confusion about hospitalization 02/15: no changes today, self dialogue more overt/extensive today 02/16 add olanzapine 5mg po qhs. continue risperidone. minimal improvement if any. 02/17 continue tx. 02/18 seems more somnolent with bedtime olanzapine, will continue to monitor. 02/19 cbc showed thrombocytopenia, which is new and suspect related to depakote 02/20 pt appears more sedated since addition of olanzapine at bedtime. She continues to self dialogue. minimal improvement. 02/21: Continue current management and treatment plan. 02/22: continue current management and treatment plan. 02/23 continue tx. may need to affirm HCP try different antipsychotic. 02/24 continue tx. results of LENORE 1:360, pattern homogenous A. 02/25 will try rexulti, lower risperidone. pending coordination of medical care to see if underlying autoimmune condition has anything to do with current presentation. 02/26 discussed with hospital estate planning attorney to dismiss sect 8, HCP invoked and can consent to other treatment. daughter Maricruz give permission to try different antipsychotic. 02/27 decrease risperidone to 1mg po daily, start prolixin 2.5mg po qhs, then increase to BID. continue olanzapine prn for agitation. olanzapine as well per court order. 03/03 pt seen by neurology, added HIV/RPR/LYME, can't have MRI due to cochlear implant. 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 Last Neurology appointment 01/2024. Missed appointment with rheumatology 05/2024, last seen in 02/26/2024. - Pt can't have MRI due to cochlear implant. Had head CT. - continue prolixin 2.5mg po daily, 5mg po qhs. will d/c risperidone, increase prolixin 5mg po BID, back up IM. 03/05 continue tx. 03/06 This feature writer spoke with pt's biomedical engineer, Dr. Al obtained collateral information. Will coordinate with neurology and rheumatology once LP results are available. r/o reoccurance of pachymeningitis, lupus or other autoimmune cause for psychosis. Reason for continued inpatient stay Substantial Risk for: inability to function Time Spent With Patient Time: Total time managing care of this patient today ____ minutes.
[2025-03-06 20:00] VITALS: BP 136/54; PULSE 56; RESP 16; TEMP 36.3; O2SAT 97
[2025-03-06] MEDS: clonazePAM ODT 0.5 MG TAB.RAPDIS PO (20:10)
[2025-03-07 08:00] VITALS: BP 128/60; PULSE 55; RESP 16; TEMP 2.7; TEMP 37; O2SAT 96
[2025-03-07 08:37] VITALS: BP 128/60
[2025-03-07] MEDS: NIFEdipine ER 30 MG TAB.ER.24 PO (08:37)
[2025-03-07] MEDS: Tiotropium Bromide 2.5 mcg 1 PUFF/2.5 MCG MIST.INHAL INHALE (08:44)
[2025-03-07] MEDS: Fluticasone/Vilanterol 200/25 BLST.W.DEV 1 PUFF INHALE (08:44)
--- NOTE | 2025-03-07 12:01 | HO.PSYCHPN ---
Subjective Subjective Date of Service: 03/07/25 Reason For Visit: Psychosis Subjective Notes: Conditional Voluntary Interim History: Patient was seen and discussed in rounds today. Records and plans were reviewed. She appears to be doing better and no longer needs one-to-one which we discontinued and put in place 5 minute checks in light of having a walker. No reports of behavioral issues. Eating and sleeping adequately. No changes were made today Review of Systems Review of Systems Yes Unobtainable due to mental status Mental Status Exam Mental Status Exam Narrative: In today's visit she is alert. Difficult to communicate. Speech is hard to decipher. No eye contact. Affect is contained. No dangerous behaviors. Cognitively is markedly impaired and judgment is impaired Diagnostics Vital Signs (24Hr): Vital Signs - 24 hr 03/06/25 20:00 03/07/25 08:37 03/07/25 08:37 Temperature 97.3 F Pulse Rate 56 Respiratory Rate 16 Blood Pressure 136/54 L 128/60 128/60 Pulse Oximetry 97 Oxygen Delivery Method Room Air BMI result Body Mass Index 29.5 Labs 02/19/25 07:48 03/05/25 07:38 Labs: Laboratory Results - last 48 hr 03/03/25 18:31 RPR Titer TNP RPR NON-REACTIVE Lyme Screen IgG & IgM <0.90 Imaging Radiology Impressions: ITS Impressions Head CT 03/05/25 15:51 IMPRESSION: 1. No acute intracranial abnormality. 2. Right-sided cochlear nerve implant with associated streak artifact. 3. Right-sided canal wall up mastoidectomy. Electronically signed by: Levi Greer MD 03/05/2025 04:25 PM EDT RP Medications Medications Current Medications Acetaminophen (Acetaminophen 325 Mg Tablet) 650 mg PO Q6H PRN PRN Reason: Headache/Pain, Scale 1-10 Last Admin: 03/07/25 09:44 Dose: 650 mg Al Hydroxide/Mg Hydroxide (Magnesium Hydrox/Alum Hydrox 30 Ml Oral.Susp) 30 ml PO Q6H PRN PRN Reason: Heartburn/Nausea Albuterol Sulfate (Albuterol Sulfate 90 Mcg 8 Gm Inhaler) 2 puff INHALE Q4H PRN PRN Reason: Shortness Of Breath Or Wheezing Atorvastatin Calcium (Atorvastatin Calcium 40 Mg Tablet) 40 mg PO DAILY [facility] Last Admin: 03/07/25 08:36 Dose: 40 mg Benztropine Mesylate (Benztropine Mesylate 0.5 Mg Tablet) 0.5 mg PO DAILY [facility] Last Admin: 03/06/25 11:20 Dose: 0.5 mg Benztropine Mesylate (Benztropine Mesylate 1 Mg Tablet) 1 mg PO BEDTIME [facility] Last Admin: 03/06/25 20:10 Dose: 1 mg Clonazepam (Clonazepam Odt 0.5 Mg Tab.Rapdis) 0.5 mg PO BID PRN PRN Reason: severe anxiety/sleep Last Admin: 03/06/25 20:10 Dose: 0.5 mg Fluphenazine HCl (Fluphenazine Hcl 2.5 Mg/Ml 10 Ml Vial) 2.5 mg IM BID PRN PRN Reason: give if refuses oral per HCP Last Admin: 03/05/25 09:42 Dose: 2.5 mg Fluphenazine HCl (Fluphenazine Hcl 2.5 Mg Tablet) 2.5 mg PO DAILY [facility] Last Admin: 03/07/25 08:37 Dose: 2.5 mg Fluphenazine HCl (Fluphenazine Hcl 5 Mg Tablet) 5 mg PO BEDTIME [facility] Last Admin: 03/06/25 20:10 Dose: 5 mg Fluticasone/Vilanterol (Fluticasone/Vilanterol 200/25 Blst.W.Dev) 1 puff INHALE RDAILY [facility] Last Admin: 03/07/25 08:44 Dose: 1 puff Guaifenesin (Guaifenesin 200 Mg/10 Ml 10 Ml Liquid) 10 ml PO Q6H PRN PRN Reason: Cough Hydrochlorothiazide (Hydrochlorothiazide 25 Mg Tablet) 25 mg PO DAILY [facility] Last Admin: 03/07/25 08:37 Dose: 25 mg Levetiracetam (Levetiracetam 250 Mg Tablet) 250 mg PO BID [facility] Last Admin: 03/07/25 08:37 Dose: 250 mg Lorazepam (Lorazepam 1 Mg Tablet) 2 mg PO DAILY PRN PRN Reason: 40 mins before CTscan Last Admin: 03/05/25 12:51 Dose: 2 mg Magnesium Hydroxide (Milk Of Magnesia 30 Ml Oral.Susp) 30 ml PO DAILY PRN PRN Reason: Constipation Methimazole (Methimazole 5 Mg Tablet) 5 mg PO DAILY [facility] Last Admin: 03/07/25 08:36 Dose: 5 mg Nifedipine (Nifedipine Er 30 Mg Tab.Er.24) 30 mg PO DAILY [facility]; Protocol Last Admin: 03/07/25 08:37 Dose: 30 mg Olanzapine (Olanzapine 10 Mg Tablet) 10 mg PO Q6H PRN PRN Reason: severe agitation Last Admin: 03/03/25 20:33 Dose: 10 mg Tiotropium [place] (Tiotropium [place] 2.5 Mcg 1 Puff/2.5 Mcg Mist.Inhal) 1 puff INHALE RDAILY [facility] Last Admin: 03/07/25 08:44 Dose: 1 puff Trazodone HCl (Trazodone Hcl 50 Mg Tablet) 50 mg PO BEDTIME MRX1 PRN PRN Reason: Insomnia Last Admin: 03/06/25 20:10 Dose: 50 mg Allergies Allergies Allergy/AdvReac Type Severity Reaction Status Date / Time latex Allergy Unknown Verified 01/16/25 20:11 peanut Allergy Unknown Verified 01/16/25 20:11 Penicillins Allergy Unknown Verified 01/16/25 20:11 Assessment & Plan Assessment & Plan (1) Psychosis: Status: Acute Code(s): F29 - Unspecified psychosis not due to a substance or known physiological condition (2) Rheumatoid arthritis involving hand with positive rheumatoid factor: Status: Acute Code(s): M05.749 - Rheumatoid arthritis with rheumatoid factor of unspecified hand without organ or systems involvement (3) COPD (chronic obstructive pulmonary disease): Status: Acute Code(s): J44.9 - Chronic obstructive pulmonary disease, unspecified (4) Trochanteric bursitis of both hips: Status: Acute Code(s): M70.61 - Trochanteric bursitis, right hip; M70.62 - Trochanteric bursitis, left hip Plan Mrs. Sharif is a 69 year-old woman who presents with a 3 month hx of new onset of psychosis (AH) and combination of paranoid delusions and cap gras delusions. No prior psychiatric hx. She does have of cocaine use but apparently had not used in some years. Daughter suspects she may have relapsed but no ongoing use. Pt presents with more complex theme of delusions. No additional medical work up available including head CT. CBC and cmp unremarkable. 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 It may be related to dementia process but complexity of delusions and psychosis not the common presentation for dementia that have psychosis early on such as in vascular dementia or LBD. Pt presents as gravely disable to able to care for self due to symptoms of psychosis and delusions. 02/03 increase night time risperidone 2mg po qhs increase cogetin at bedtime to 1mg po qhs. lower daily dose to 0.5mg po daily. continue cogentin 0.5mg po daily. clonazepam as prn olanzapine as prn for agitation 02/04 continue tx. 02/05 continue tx. 02/06 continue current dose of risperidone. NOTE THAT pt can't take doses higher than 3 mg/day of risperidone as higher doses had severe EPS. can use olanzapine as well per court order. 02/07/25: Patient has been agitated yelling loudly exist seeking, delusional thinking her daughter/son outside at the door to pick her up. PRNs given in the morning with mild effect. Patient became agitated, aggressive\, assaultive to 1 of the staff on the floor, yelling and hitting her face so grabbing her neck. Physical was started at 16:31 to 1634. Patient was given IM medication of Zyprexa 10 and Valium 10 with good effect. Tomorrow plan: Patient will be benefit from Valium 10 mg twice a day and Zyprexa 5 mg 3 times a day is added into her scheduled medication as current plan with risperidone is not effective. Patient also having a backup for risperidone if she refused. 02/08/25: Slept most of the morning and last night. In better behavior control. No aggressive behavior. She is quiet, self dialogue, and medication compliant. Due to receive restrain medication yesterday. I did not make any medication change. But the Valium and additional Zyprexa appears to be helpful. 02/09 will try to change keppra to depakote for seizures as keppra may exacerbate psychosis. increase risperidone 1mg po daily and 2mg po qhs. may need to add second antipsychotic. 02/10 continues to present as paranoid with AH. at times declines oral medications, requiring IM back per court order. 02/11 continue tx. 02/12 continue tx. 02/13 continue tx. 02/14: no changes today. Monitor for agitation around confusion about hospitalization 02/15: no changes today, self dialogue more overt/extensive today 02/16 add olanzapine 5mg po qhs. continue risperidone. minimal improvement if any. 02/17 continue tx. 02/18 seems more somnolent with bedtime olanzapine, will continue to monitor. 02/19 cbc showed thrombocytopenia, which is new and suspect related to depakote 02/20 pt appears more sedated since addition of olanzapine at bedtime. She continues to self dialogue. minimal improvement. 02/21: Continue current management and treatment plan. 02/22: continue current management and treatment plan. 02/23 continue tx. may need to affirm HCP try different antipsychotic. 02/24 continue tx. results of LENORE 1:360, pattern homogenous A. 02/25 will try rexulti, lower risperidone. pending coordination of medical care to see if underlying autoimmune condition has anything to do with current presentation. 02/26 discussed with hospital litigation attorney to dismiss sect 8, HCP invoked and can consent to other treatment. daughter Maricruz give permission to try different antipsychotic. 02/27 decrease risperidone to 1mg po daily, start prolixin 2.5mg po qhs, then increase to BID. continue olanzapine prn for agitation. olanzapine as well per court order. 03/03 pt seen by neurology, added HIV/RPR/LYME, can't have MRI due to cochlear implant. 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 Last Neurology appointment 01/2024. Missed appointment with rheumatology 05/2024, last seen in 02/26/2024. - Pt can't have MRI due to cochlear implant. Had head CT. - continue prolixin 2.5mg po daily, 5mg po qhs. will d/c risperidone, increase prolixin 5mg po BID, back up IM. 03/05 continue tx. 03/06 This leader writer spoke with pt's parole agent, Dr. Al obtained collateral information. Will coordinate with neurology and rheumatology once LP results are available. r/o reoccurance of pachymeningitis, lupus or other autoimmune cause for psychosis. 03/07: Continue current regimen and plans. Discontinued one-to-one and put in place 5 minute checks Patient educated on: therapeutic strategies Reason for continued inpatient stay Substantial Risk for: inability to function Time Spent With Patient Time: Total time managing care of this patient today ____ minutes.
[2025-03-07 20:00] VITALS: BP 109/55; PULSE 61; RESP 16; TEMP 36.2; O2SAT 96
[2025-03-07] MEDS: clonazePAM ODT 0.5 MG TAB.RAPDIS PO (20:09)
[2025-03-08] MEDS: NIFEdipine ER 30 MG TAB.ER.24 PO (08:33)
--- NOTE | 2025-03-08 10:44 | P.PNPSI_ITS ---
Subjective Subjective Date of Service: 03/08/25 Reason For Visit: Psychosis Subjective Notes: Conditional Voluntary Interim History: Patient was seen and discussed in rounds today. Records and plans were reviewed. She has been stable with no incidents. She is getting an LP tomorrow to rule out other causes for not responding to any medications her psychosis. No complaints. No changes were made today eating and sleeping adequately. Review of Systems Review of Systems Yes Unobtainable due to mental status Mental Status Exam Mental Status Exam Narrative: In today's visit she is alert. Difficult to communicate. Speech is hard to decipher. No eye contact. Affect is contained. No dangerous behaviors. Cognitively is markedly impaired and judgment is impaired Diagnostics Vital Signs (24Hr): Vital Signs - 24 hr 03/07/25 20:00 Temperature 97.1 F Pulse Rate 61 Respiratory Rate 16 Blood Pressure 109/55 L Pulse Oximetry 96 Oxygen Delivery Method Room Air BMI result Body Mass Index 29.5 Labs 02/19/25 07:48 03/05/25 07:38 Labs: Laboratory Results - last 48 hr 03/03/25 18:31 RPR Titer TNP RPR NON-REACTIVE Lyme Progressive Test TNP Imaging Radiology Impressions: ITS Impressions Head CT 03/05/25 15:51 IMPRESSION: 1. No acute intracranial abnormality. 2. Right-sided cochlear nerve implant with associated streak artifact. 3. Right-sided canal wall up mastoidectomy. Electronically signed by: Levi Greer MD 03/05/2025 04:25 PM EDT Medications Medications Current Medications Acetaminophen (Acetaminophen 325 Mg Tablet) 650 mg PO Q6H PRN PRN Reason: Headache/Pain, Scale 1-10 Last Admin: 03/07/25 09:44 Dose: 650 mg Al Hydroxide/Mg Hydroxide (Magnesium Hydrox/Alum Hydrox 30 Ml Oral.Susp) 30 ml PO Q6H PRN PRN Reason: Heartburn/Nausea Albuterol Sulfate (Albuterol Sulfate 90 Mcg 8 Gm Inhaler) 2 puff INHALE Q4H PRN PRN Reason: Shortness Of Breath Or Wheezing Atorvastatin Calcium (Atorvastatin Calcium 40 Mg Tablet) 40 mg PO DAILY [facility] Last Admin: 03/08/25 08:33 Dose: 40 mg Benztropine Mesylate (Benztropine Mesylate 0.5 Mg Tablet) 0.5 mg PO DAILY [facility] Last Admin: 03/08/25 10:42 Dose: 0.5 mg Benztropine Mesylate (Benztropine Mesylate 1 Mg Tablet) 1 mg PO BEDTIME [facility] Last Admin: 03/07/25 20:09 Dose: 1 mg Clonazepam (Clonazepam Odt 0.5 Mg Tab.Rapdis) 0.5 mg PO BID PRN PRN Reason: severe anxiety/sleep Last Admin: 03/07/25 20:09 Dose: 0.5 mg Fluphenazine HCl (Fluphenazine Hcl 2.5 Mg/Ml 10 Ml Vial) 2.5 mg IM BID PRN PRN Reason: give if refuses oral per HCP Last Admin: 03/05/25 09:42 Dose: 2.5 mg Fluphenazine HCl (Fluphenazine Hcl 2.5 Mg Tablet) 2.5 mg PO DAILY [facility] Last Admin: 03/08/25 08:33 Dose: 2.5 mg Fluphenazine HCl (Fluphenazine Hcl 5 Mg Tablet) 5 mg PO BEDTIME [facility] Last Admin: 03/07/25 20:09 Dose: 5 mg Fluticasone/Vilanterol (Fluticasone/Vilanterol 200/25 Blst.W.Dev) 1 puff INHALE RDAILY [facility] Last Admin: 03/08/25 10:43 Dose: Not Given Guaifenesin (Guaifenesin 200 Mg/10 Ml 10 Ml Liquid) 10 ml PO Q6H PRN PRN Reason: Cough Hydrochlorothiazide (Hydrochlorothiazide 25 Mg Tablet) 25 mg PO DAILY [facility] Last Admin: 03/08/25 08:34 Dose: 25 mg Levetiracetam (Levetiracetam 250 Mg Tablet) 250 mg PO BID [facility] Last Admin: 03/08/25 08:34 Dose: 250 mg Lorazepam (Lorazepam 1 Mg Tablet) 2 mg PO DAILY PRN PRN Reason: 40 mins before CTscan Last Admin: 03/05/25 12:51 Dose: 2 mg Magnesium Hydroxide (Milk Of Magnesia 30 Ml Oral.Susp) 30 ml PO DAILY PRN PRN Reason: Constipation Methimazole (Methimazole 5 Mg Tablet) 5 mg PO DAILY [facility] Last Admin: 03/08/25 08:34 Dose: 5 mg Nifedipine (Nifedipine Er 30 Mg Tab.Er.24) 30 mg PO DAILY [facility]; Protocol Last Admin: 03/08/25 08:33 Dose: 30 mg Olanzapine (Olanzapine 10 Mg Tablet) 10 mg PO Q6H PRN PRN Reason: severe agitation Last Admin: 03/03/25 20:33 Dose: 10 mg Tiotropium [place] (Tiotropium [place] 2.5 Mcg 1 Puff/2.5 Mcg Mist.Inhal) 1 puff INHALE RDAILY [facility] Last Admin: 03/08/25 10:43 Dose: Not Given Trazodone HCl (Trazodone Hcl 50 Mg Tablet) 50 mg PO BEDTIME MRX1 PRN PRN Reason: Insomnia Last Admin: 03/07/25 20:09 Dose: 50 mg Allergies Allergies Allergy/AdvReac Type Severity Reaction Status Date / Time latex Allergy Unknown Verified 01/16/25 20:11 peanut Allergy Unknown Verified 01/16/25 20:11 Penicillins Allergy Unknown Verified 01/16/25 20:11 Assessment & Plan Assessment & Plan (1) Psychosis: Status: Acute Code(s): F29 - Unspecified psychosis not due to a substance or known physiological condition (2) Rheumatoid arthritis involving hand with positive rheumatoid factor: Status: Acute Code(s): M05.749 - Rheumatoid arthritis with rheumatoid factor of unspecified hand without organ or systems involvement (3) COPD (chronic obstructive pulmonary disease): Status: Acute Code(s): J44.9 - Chronic obstructive pulmonary disease, unspecified (4) Trochanteric bursitis of both hips: Status: Acute Code(s): M70.61 - Trochanteric bursitis, right hip; M70.62 - Trochanteric bursitis, left hip Plan Mrs. Sharif is a 69 year-old woman who presents with a 3 month hx of new onset of psychosis (AH) and combination of paranoid delusions and cap gras delusions. No prior psychiatric hx. She does have of cocaine use but apparently had not used in some years. Daughter suspects she may have relapsed but no ongoing use. Pt presents with more complex theme of delusions. No additional medical work up available including head CT. CBC and cmp unremarkable. 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 It may be related to dementia process but complexity of delusions and psychosis not the common presentation for dementia that have psychosis early on such as in vascular dementia or LBD. Pt presents as gravely disable to able to care for self due to symptoms of psychosis and delusions. 7/8 increase night time risperidone 2mg po qhs increase cogetin at bedtime to 1mg po qhs. lower daily dose to 0.5mg po daily. continue cogentin 0.5mg po daily. clonazepam as prn olanzapine as prn for agitation 02/04 continue tx. 02/05 continue tx. 02/06 continue current dose of risperidone. NOTE THAT pt can't take doses higher than 3 mg/day of risperidone as higher doses had severe EPS. can use olanzapine as well per court order. 02/07/25: Patient has been agitated yelling loudly exist seeking, delusional thinking her daughter/son outside at the door to pick her up. PRNs given in the morning with mild effect. Patient became agitated, aggressive\, assaultive to 1 of the staff on the floor, yelling and hitting her face so grabbing her neck. Physical was started at 16:31 to 1634. Patient was given IM medication of Zyprexa 10 and Valium 10 with good effect. Tomorrow plan: Patient will be benefit from Valium 10 mg twice a day and Zyprexa 5 mg 3 times a day is added into her scheduled medication as current plan with risperidone is not effective. Patient also having a backup for risperidone if she refused. 02/08/25: Slept most of the morning and last night. In better behavior control. No aggressive behavior. She is quiet, self dialogue, and medication compliant. Due to receive restrain medication yesterday. I did not make any medication change. But the Valium and additional Zyprexa appears to be helpful. 02/09 will try to change keppra to depakote for seizures as keppra may exacerbate psychosis. increase risperidone 1mg po daily and 2mg po qhs. may need to add second antipsychotic. 02/10 continues to present as paranoid with AH. at times declines oral medications, requiring IM back per court order. 02/11 continue tx. 02/12 continue tx. 02/13 continue tx. 02/14: no changes today. Monitor for agitation around confusion about hospitalization 02/15: no changes today, self dialogue more overt/extensive today 02/16 add olanzapine 5mg po qhs. continue risperidone. minimal improvement if any. 02/17 continue tx. 02/18 seems more somnolent with bedtime olanzapine, will continue to monitor. 02/19 cbc showed thrombocytopenia, which is new and suspect related to depakote 02/20 pt appears more sedated since addition of olanzapine at bedtime. She continues to self dialogue. minimal improvement. 02/21: Continue current management and treatment plan. 02/22: continue current management and treatment plan. 02/23 continue tx. may need to affirm HCP try different antipsychotic. 02/24 continue tx. results of LENORE 1:360, pattern homogenous A. 02/25 will try rexulti, lower risperidone. pending coordination of medical care to see if underlying autoimmune condition has anything to do with current presentation. 02/26 discussed with hospital real estate associate attorney to dismiss sect 8, HCP invoked and can consent to other treatment. daughter Maricruz give permission to try different antipsychotic. 02/27 decrease risperidone to 1mg po daily, start prolixin 2.5mg po qhs, then increase to BID. continue olanzapine prn for agitation. olanzapine as well per court order. 03/03 pt seen by neurology, added HIV/RPR/LYME, can't have MRI due to cochlear implant. 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 Last Neurology appointment 01/2024. Missed appointment with rheumatology 05/2024, last seen in 02/26/2024. - Pt can't have MRI due to cochlear implant. Had head CT. - continue prolixin 2.5mg po daily, 5mg po qhs. will d/c risperidone, increase prolixin 5mg po BID, back up IM. 03/05 continue tx. 03/06 This marketing underwriter spoke with pt's senior project accountant, Dr. Al obtained collateral information. Will coordinate with neurology and rheumatology once LP results are available. r/o reoccurance of pachymeningitis, lupus or other autoimmune cause for psychosis. 03/07: Continue current regimen and plans. Discontinued one-to-one and put in place 5 minute checks 03/08: Continue current plans and regimen Reason for continued inpatient stay Substantial Risk for: inability to function Time Spent With Patient Time: Total time managing care of this patient today ____ minutes.
[2025-03-08 19:33] VITALS: BP 126/60; PULSE 67; RESP 16; TEMP 36.1; O2SAT 96
[2025-03-09 07:49] LABS: INTERNATIONAL NORM RATIO 0.9 (0.9-1.1); Prothrombin Time 10.5 SEC (10.9-12.4)
[2025-03-09 08:06] VITALS: BP 148/67; PULSE 60; RESP 20; TEMP 36.3; O2SAT 99
[2025-03-09] MEDS: Fluticasone/Vilanterol 200/25 BLST.W.DEV 1 PUFF INHALE (08:17)
[2025-03-09] MEDS: Tiotropium Bromide 2.5 mcg 1 PUFF/2.5 MCG MIST.INHAL INHALE (08:22)
--- NOTE | 2025-03-09 08:50 | HO.PSYCHPN ---
Subjective Subjective Date of Service: 03/09/25 Reason For Visit: Psychosis Subjective Notes: Conditional Voluntary Healthcare Proxy: Yes Interim History: Pt slept 6hrs. She is taking medications. Pending LP today. She continues to self dialogued. VS stable. Very little awareness of surroundings due to severity of psychosis/delusions. Spoke with daughter Maricruz to provide update about additional tests to r/u underlying medical conditions. Medication Compliance: Yes Review of Systems Review of Systems As per HPI. Yes all other systems are reviewed and are negative, Unobtainable due to mental status and Other (patient refused to answer ROS questions) Constitutional: Reports as per HPI Eyes: Reports as per HPI Reports as per HPI Cardiovascular: Reports as per HPI Respiratory: Reports as per HPI Gastrointestinal: Reports as per HPI Musculoskeletal: Reports as per HPI Skin/Breast: Reports as per HPI Reports as per HPI Psychiatric: Reports as per HPI Endocrine: Reports as per HPI Hematologic/Lymphatic: Reports as per HPI Allergic/Immunologic: Reports as per HPI Mental Status Exam Mental Status Exam Narrative: Appearance: hospital attire, adequate grooming and hygiene Behavior: belligerent at times Orientation: alert, confused Memory: impaired Attention: able to attend to the encounter discussion Psychomotor Function: no agitation or slowing; no abnormal gestures or movements Speech: loud Mood: fine Affect: irritable Thought Process: disorganized Thought Content: denies SI/HI Hallucinations: active engagement in self dialogue delusions: paranoid Insight: impairment Judgment: impairment Impulsivity: none noted Diagnostics Vital Signs (24Hr): Vital Signs - 24 hr 03/08/25 19:33 03/09/25 08:06 Temperature 96.9 F 97.3 F Pulse Rate 67 60 Respiratory Rate 16 20 Blood Pressure 126/60 148/67 H Pulse Oximetry 96 99 Oxygen Delivery Method Room Air Room Air BMI result Body Mass Index 29.5 Labs 02/19/25 07:48 03/05/25 07:38 Labs: Laboratory Results - last 48 hr 03/03/25 03/09/25 18:31 07:27 PT 10.5 L INR 0.9 Lyme Progressive Test TNP Imaging Radiology Impressions: ITS Impressions Head CT 03/05/25 15:51 IMPRESSION: 1. No acute intracranial abnormality. 2. Right-sided cochlear nerve implant with associated streak artifact. 3. Right-sided canal wall up mastoidectomy. Electronically signed by: Levi Greer MD 03/05/2025 04:25 PM EDT Medications Medications Current Medications Acetaminophen (Acetaminophen 325 Mg Tablet) 650 mg PO Q6H PRN PRN Reason: Headache/Pain, Scale 1-10 Last Admin: 03/07/25 09:44 Dose: 650 mg Al Hydroxide/Mg Hydroxide (Magnesium Hydrox/Alum Hydrox 30 Ml Oral.Susp) 30 ml PO Q6H PRN PRN Reason: Heartburn/Nausea Albuterol Sulfate (Albuterol Sulfate 90 Mcg 8 Gm Inhaler) 2 puff INHALE Q4H PRN PRN Reason: Shortness Of Breath Or Wheezing Atorvastatin Calcium (Atorvastatin Calcium 40 Mg Tablet) 40 mg PO DAILY [facility] Last Admin: 03/09/25 08:20 Dose: Not Given Benztropine Mesylate (Benztropine Mesylate 0.5 Mg Tablet) 0.5 mg PO DAILY [facility] Last Admin: 03/09/25 08:17 Dose: 0.5 mg Benztropine Mesylate (Benztropine Mesylate 1 Mg Tablet) 1 mg PO BEDTIME [facility] Last Admin: 03/08/25 20:22 Dose: 1 mg Clonazepam (Clonazepam Odt 0.5 Mg Tab.Rapdis) 0.5 mg PO BID PRN PRN Reason: severe anxiety/sleep Last Admin: 03/07/25 20:09 Dose: 0.5 mg Fluphenazine HCl (Fluphenazine Hcl 2.5 Mg/Ml 10 Ml Vial) 2.5 mg IM BID PRN PRN Reason: give if refuses oral per HCP Last Admin: 03/05/25 09:42 Dose: 2.5 mg Fluphenazine HCl (Fluphenazine Hcl 2.5 Mg Tablet) 2.5 mg PO DAILY [facility] Last Admin: 03/09/25 08:17 Dose: 2.5 mg Fluphenazine HCl (Fluphenazine Hcl 5 Mg Tablet) 5 mg PO BEDTIME [facility] Last Admin: 03/08/25 20:22 Dose: 5 mg Fluticasone/Vilanterol (Fluticasone/Vilanterol 200/25 Blst.W.Dev) 1 puff INHALE RDAILY [facility] Last Admin: 03/09/25 08:17 Dose: 1 puff Guaifenesin (Guaifenesin 200 Mg/10 Ml 10 Ml Liquid) 10 ml PO Q6H PRN PRN Reason: Cough Hydrochlorothiazide (Hydrochlorothiazide 25 Mg Tablet) 25 mg PO DAILY [facility] Last Admin: 03/09/25 08:21 Dose: Not Given Levetiracetam (Levetiracetam 250 Mg Tablet) 250 mg PO BID [facility] Last Admin: 03/09/25 08:17 Dose: 250 mg Lorazepam (Lorazepam 1 Mg Tablet) 2 mg PO DAILY PRN PRN Reason: 40 mins before CTscan Last Admin: 03/05/25 12:51 Dose: 2 mg Magnesium Hydroxide (Milk Of Magnesia 30 Ml Oral.Susp) 30 ml PO DAILY PRN PRN Reason: Constipation Methimazole (Methimazole 5 Mg Tablet) 5 mg PO DAILY [facility] Last Admin: 03/09/25 08:17 Dose: 5 mg Nifedipine (Nifedipine Er 30 Mg Tab.Er.24) 30 mg PO DAILY [facility]; Protocol Last Admin: 03/09/25 08:21 Dose: Not Given Olanzapine (Olanzapine 10 Mg Tablet) 10 mg PO Q6H PRN PRN Reason: severe agitation Last Admin: 03/03/25 20:33 Dose: 10 mg Tiotropium [place] (Tiotropium [place] 2.5 Mcg 1 Puff/2.5 Mcg Mist.Inhal) 1 puff INHALE RDAILY [facility] Last Admin: 03/09/25 08:22 Dose: 1 puff Trazodone HCl (Trazodone Hcl 50 Mg Tablet) 50 mg PO BEDTIME MRX1 PRN PRN Reason: Insomnia Last Admin: 03/07/25 20:09 Dose: 50 mg Allergies Allergies Allergy/AdvReac Type Severity Reaction Status Date / Time latex Allergy Unknown Verified 01/16/25 20:11 peanut Allergy Unknown Verified 01/16/25 20:11 Penicillins Allergy Unknown Verified 01/16/25 20:11 Assessment & Plan Assessment & Plan (1) Psychosis: Status: Acute Code(s): F29 - Unspecified psychosis not due to a substance or known physiological condition (2) Rheumatoid arthritis involving hand with positive rheumatoid factor: Status: Acute Code(s): M05.749 - Rheumatoid arthritis with rheumatoid factor of unspecified hand without organ or systems involvement (3) COPD (chronic obstructive pulmonary disease): Status: Acute Code(s): J44.9 - Chronic obstructive pulmonary disease, unspecified (4) Trochanteric bursitis of both hips: Status: Acute Code(s): M70.61 - Trochanteric bursitis, right hip; M70.62 - Trochanteric bursitis, left hip Plan Mrs. Sharif is a 69 year-old woman who presents with a 3 month hx of new onset of psychosis (AH) and combination of paranoid delusions and cap gras delusions. No prior psychiatric hx. She does have of cocaine use but apparently had not used in some years. Daughter suspects she may have relapsed but no ongoing use. Pt presents with more complex theme of delusions. No additional medical work up available including head CT. CBC and cmp unremarkable. 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 It may be related to dementia process but complexity of delusions and psychosis not the common presentation for dementia that have psychosis early on such as in vascular dementia or LBD. Pt presents as gravely disable to able to care for self due to symptoms of psychosis and delusions. 02/03 increase night time risperidone 2mg po qhs increase cogetin at bedtime to 1mg po qhs. lower daily dose to 0.5mg po daily. continue cogentin 0.5mg po daily. clonazepam as prn olanzapine as prn for agitation 02/04 continue tx. 02/05 continue tx. 02/06 continue current dose of risperidone. NOTE THAT pt can't take doses higher than 3 mg/day of risperidone as higher doses had severe EPS. can use olanzapine as well per court order. 02/07/25: Patient has been agitated yelling loudly exist seeking, delusional thinking her daughter/son outside at the door to pick her up. PRNs given in the morning with mild effect. Patient became agitated, aggressive\, assaultive to 1 of the staff on the floor, yelling and hitting her face so grabbing her neck. Physical was started at 16:31 to 1634. Patient was given IM medication of Zyprexa 10 and Valium 10 with good effect. Tomorrow plan: Patient will be benefit from Valium 10 mg twice a day and Zyprexa 5 mg 3 times a day is added into her scheduled medication as current plan with risperidone is not effective. Patient also having a backup for risperidone if she refused. 02/08/25: Slept most of the morning and last night. In better behavior control. No aggressive behavior. She is quiet, self dialogue, and medication compliant. Due to receive restrain medication yesterday. I did not make any medication change. But the Valium and additional Zyprexa appears to be helpful. 02/09 will try to change keppra to depakote for seizures as keppra may exacerbate psychosis. increase risperidone 1mg po daily and 2mg po qhs. may need to add second antipsychotic. 02/10 continues to present as paranoid with AH. at times declines oral medications, requiring IM back per court order. 02/11 continue tx. 02/12 continue tx. 02/13 continue tx. 02/14: no changes today. Monitor for agitation around confusion about hospitalization 02/15: no changes today, self dialogue more overt/extensive today 02/16 add olanzapine 5mg po qhs. continue risperidone. minimal improvement if any. 02/17 continue tx. 02/18 seems more somnolent with bedtime olanzapine, will continue to monitor. 02/19 cbc showed thrombocytopenia, which is new and suspect related to depakote 02/20 pt appears more sedated since addition of olanzapine at bedtime. She continues to self dialogue. minimal improvement. 02/21: Continue current management and treatment plan. 02/22: continue current management and treatment plan. 02/23 continue tx. may need to affirm HCP try different antipsychotic. 02/24 continue tx. results of LENORE 1:360, pattern homogenous A. 02/25 will try rexulti, lower risperidone. pending coordination of medical care to see if underlying autoimmune condition has anything to do with current presentation. 02/26 discussed with hospital criminal defense attorney to dismiss sect 8, HCP invoked and can consent to other treatment. daughter Maricruz give permission to try different antipsychotic. 02/27 decrease risperidone to 1mg po daily, start prolixin 2.5mg po qhs, then increase to BID. continue olanzapine prn for agitation. olanzapine as well per court order. 03/03 pt seen by neurology, added HIV/RPR/LYME, can't have MRI due to cochlear implant. 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 Last Neurology appointment 01/2024. Missed appointment with rheumatology 05/2024, last seen in 02/26/2024. - Pt can't have MRI due to cochlear implant. Had head CT. - continue prolixin 2.5mg po daily, 5mg po qhs. will d/c risperidone, increase prolixin 5mg po BID, back up IM. 03/05 continue tx. 03/06 This bond writer spoke with pt's manager solar, Dr. Al obtained collateral information. Will coordinate with neurology and rheumatology once LP results are available. r/o reoccurance of pachymeningitis, lupus or other autoimmune cause for psychosis. 03/07: Continue current regimen and plans. Discontinued one-to-one and put in place 5 minute checks 03/08: Continue current plans and regimen 03/09 continue tx. Reason for continued inpatient stay Substantial Risk for: inability to function Time Spent With Patient Time: Total time managing care of this patient today ____ minutes.
[2025-03-09 11:34] VITALS: BP 147/61; PULSE 53; RESP 16; TEMP 36.1; O2SAT 97
--- NOTE | 2025-03-09 11:49 | P.CONAN_ITS ---
[facility] Active Problems Active Problems: All Active Problems (Updated 03/05/25 @ 10:56 by Milena Dimas NP) Trochanteric bursitis of both hips (Acute) Rheumatoid arthritis involving hand with positive rheumatoid factor (Acute) Encephalopathy (Acute) COPD (chronic obstructive pulmonary disease) (Acute) Psychosis (Acute) Past Medical History Functional capacity: independent ambulation Family History Family history of problems with anesthesia: No Surgical History History of Problems with Anesthesia: No Social History Social History Household Members: Unknown / Unable to assess Housing: Unknown / Unable to assess Do you presently have visiting nurse or other home services: No Patient Tobacco Use Status: Former Tobacco user Tobacco use type: Cigarette Smoked in Last 30 Days: No e-Cigarette/Vaping Use: Never Used Patient Interested in Nicotine Replacement: No Patient Given Instructions on How to Stop Smoking: No Second Hand Smoke Exposure: No Currently Displaying Signs/Symptoms of Drug Intoxication Withdrawal: No Spiritual Healthcare Practices: unknown, pt unable to respond due to mental status/psychosis Tenriism Healthcare Practices: unknown, pt unable to respond due to mental status/psychosis Cultural Healthcare Practices: unknown, pt unable to respond due to mental status/psychosis Are you DNR?: No Advance Directives: No Advance Directives Information Provided: No Do you have thoughts of harming others: None Do you have a plan to hurt others: No Plan Recently lost weight without trying: Unsure How much weight loss: Unsure Eating poorly because of decreased appetite: No Nutrition screen score: 4 Nutrition Risks: No Nutritional Risk Patient : No : No Poor oral hygiene: No service: No Sexual orientation: Straight/Heterosexual Meds Allergies Allergy/AdvReac Type Severity Reaction Status Date / Time latex Allergy Unknown Verified 03/09/25 11:50 peanut Allergy Unknown Verified 03/09/25 11:50 Penicillins Allergy Unknown Verified 03/09/25 11:50 Active Medications: Current Medications Acetaminophen (Acetaminophen 325 Mg Tablet) 650 mg PO Q6H PRN PRN Reason: Headache/Pain, Scale 1-10 Last Admin: 03/07/25 09:44 Dose: 650 mg Al Hydroxide/Mg Hydroxide (Magnesium Hydrox/Alum Hydrox 30 Ml Oral.Susp) 30 ml PO Q6H PRN PRN Reason: Heartburn/Nausea Albuterol Sulfate (Albuterol Sulfate 90 Mcg 8 Gm Inhaler) 2 puff INHALE Q4H PRN PRN Reason: Shortness Of Breath Or Wheezing Atorvastatin Calcium (Atorvastatin Calcium 40 Mg Tablet) 40 mg PO DAILY [facility] Last Admin: 03/09/25 08:20 Dose: Not Given Benztropine Mesylate (Benztropine Mesylate 0.5 Mg Tablet) 0.5 mg PO DAILY [facility] Last Admin: 03/09/25 08:17 Dose: 0.5 mg Benztropine Mesylate (Benztropine Mesylate 1 Mg Tablet) 1 mg PO BEDTIME [facility] Last Admin: 03/08/25 20:22 Dose: 1 mg Clonazepam (Clonazepam Odt 0.5 Mg Tab.Rapdis) 0.5 mg PO BID PRN PRN Reason: severe anxiety/sleep Last Admin: 03/07/25 20:09 Dose: 0.5 mg Fluphenazine HCl (Fluphenazine Hcl 2.5 Mg/Ml 10 Ml Vial) 2.5 mg IM BID PRN PRN Reason: give if refuses oral per HCP Last Admin: 03/05/25 09:42 Dose: 2.5 mg Fluphenazine HCl (Fluphenazine Hcl 2.5 Mg Tablet) 2.5 mg PO DAILY [facility] Last Admin: 03/09/25 08:17 Dose: 2.5 mg Fluphenazine HCl (Fluphenazine Hcl 5 Mg Tablet) 5 mg PO BEDTIME [facility] Last Admin: 03/08/25 20:22 Dose: 5 mg Fluticasone/Vilanterol (Fluticasone/Vilanterol 200/25 Blst.W.Dev) 1 puff INHALE RDAILY [facility] Last Admin: 03/09/25 08:17 Dose: 1 puff Guaifenesin (Guaifenesin 200 Mg/10 Ml 10 Ml Liquid) 10 ml PO Q6H PRN PRN Reason: Cough Hydrochlorothiazide (Hydrochlorothiazide 25 Mg Tablet) 25 mg PO DAILY [facility] Last Admin: 03/09/25 08:21 Dose: Not Given Levetiracetam (Levetiracetam 250 Mg Tablet) 250 mg PO BID [facility] Last Admin: 03/09/25 08:17 Dose: 250 mg Lorazepam (Lorazepam 1 Mg Tablet) 2 mg PO DAILY PRN PRN Reason: before procedure Last Admin: 03/05/25 12:51 Dose: 2 mg Magnesium Hydroxide (Milk Of Magnesia 30 Ml Oral.Susp) 30 ml PO DAILY PRN PRN Reason: Constipation Methimazole (Methimazole 5 Mg Tablet) 5 mg PO DAILY [facility] Last Admin: 03/09/25 08:17 Dose: 5 mg Nifedipine (Nifedipine Er 30 Mg Tab.Er.24) 30 mg PO DAILY [facility]; Protocol Last Admin: 03/09/25 08:21 Dose: Not Given Olanzapine (Olanzapine 10 Mg Tablet) 10 mg PO Q6H PRN PRN Reason: severe agitation Last Admin: 03/03/25 20:33 Dose: 10 mg Tiotropium [place] (Tiotropium [place] 2.5 Mcg 1 Puff/2.5 Mcg Mist.Inhal) 1 puff INHALE RDAILY [facility] Last Admin: 03/09/25 08:22 Dose: 1 puff Trazodone HCl (Trazodone Hcl 50 Mg Tablet) 50 mg PO BEDTIME MRX1 PRN PRN Reason: Insomnia Last Admin: 03/07/25 20:09 Dose: 50 mg Home Medications ?Medication ?Instructions ?Recorded ?Confirmed ?Last Taken ?Type albuterol sulfate 90 mcg/actuation 2 puff inhalation Q 4-6H PRN 01/18/25 01/18/25 Unknown History aerosol inhaler Shortness Of Breath Or Wheez ing atorvastatin 40 mg tablet 40 mg PO DAILY 01/18/2512/29 Unknown History chlorthalidone 25 mg tablet 25 mg PO DAILY 01/18/25 Unknown History fluticasone 500 mcg-salmeterol 50 1 inh inhalation ALIVIA LY 01/18/25 01/18/25 Unknown History mcg/dose blistr powdr for inhalation (Wixela Inhub) levetiracetam 500 mg tablet 500 mg PO BID 01/18/25 Unknown History methimazole 5 mg tablet 5 mg PO DAILY 01/18/2501/18 Unknown History nifedipine 30 mg tablet,extended 30 mg PO DAILY 01/18/25 Unknown History release 24 hr terbinafine HCl 250 mg tablet 250 mg PO DAILY 01/18/25 01/18/25 Unknown History umeclidinium 62.5 mcg/actuation 1 inh inhalation DAILY 01/18/25 01/18/25 Unknown History blister powder for inhalation (Incruse Ellipta) Exam Exam Date and Time: 03/09/2025 Height,Weight and Vital Signs: Height 5 ft 3 in Weight 75.6 kg Last Vital Signs Temp 97.0 F 03/09/25 11:34 Pulse 53 03/09/25 11:34 Resp 16 03/09/25 11:34 BP 147/61 H 03/09/25 11:34 Pulse Ox 97 03/09/25 11:34 O2 Del Method Room Air 03/09/25 11:34 Pertinent Lab Results Pertinent Lab Results: Laboratory Tests 01/16/25 01/19/25 01/19/25 21:32 12:57 12:57 WBC 5.3 5.0 RBC 4.44 Hgb Hct MCV MCH MCHC RDW Plt Count MPV Immature Gran % (Auto) Neut % (Auto) Lymph % (Auto) [place] % (Auto) Eos % (Auto) Baso % (Auto) Lymph # (Auto) [place] # (Auto) Eos # (Auto) Baso # (Auto) Abs Immat Gran (auto) Absolute Neuts (auto) Absolute Nucleated RBC Nucleated RBC % (auto) ESR PT INR Sodium Potassium Chloride Carbon Dioxide Anion Gap BUN Creatinine Estim Creat Clear Calc Estimated GFR POC Glucose Random Glucose Calcium Total Bilirubin AST ALT Alkaline Phosphatase Ammonia C-Reactive Protein Total Protein Albumin Triglycerides Cholesterol LDL Cholesterol, Calc HDL Cholesterol Vitamin B12 Folate TSH Urine Color Yellow Urine Appearance Clear Urine pH 6.0 Ur Specific [place] 1.015 Urine Protein Negative Urine Glucose (UA) Negative Urine Ketones Negative Urine Blood Negative Urine Nitrite Negative Ur Leukocyte Esterase Negative Salicylates Urine Opiates Screen Not Detected Ur Buprenorphine Scrn Not Detected Ur Oxycodone Screen Not Detected Urine Methadone Screen Not Detected Urine Fentanyl Screen Not Detected Acetaminophen Ur Barbiturates Screen Not Detected Ur Phencyclidine Scrn Not Detected Ur Amphetamines Screen Not Detected U Benzodiazepines Scrn Not Detected Urine Cocaine Screen Not Detected U Marijuana (THC) Screen Not Detected Ethyl Alcohol Rheumatoid Factor LENORE Screen LENORE Titer LENORE Titer 2 LENORE Titer 3 LENORE Pattern LENORE Pattern 2 LENORE Pattern 3 Double Strand DNA Ab RPR Titer RPR Lyme Screen IgG & IgM Lyme Progressive Test HIV 1&2 Ab/P24 Ag 4thGn 01/19/25 01/19/25 01/19/25 12:57 12:57 12:57 WBC RBC 4.44 Hgb 13.9 14.1 Hct 41.9 41.2 MCV 94.4 MCH MCHC RDW Plt Count MPV Immature Gran % (Auto) Neut % (Auto) Lymph % (Auto) [place] % (Auto) Eos % (Auto) Baso % (Auto) Lymph # (Auto) [place] # (Auto) Eos # (Auto) Baso # (Auto) Abs Immat Gran (auto) Absolute Neuts (auto) Absolute Nucleated RBC Nucleated RBC % (auto) ESR PT INR Sodium Potassium Chloride Carbon Dioxide Anion Gap BUN Creatinine Estim Creat Clear Calc Estimated GFR POC Glucose Random Glucose Calcium Total Bilirubin AST ALT Alkaline Phosphatase Ammonia C-Reactive Protein Total Protein Albumin Triglycerides Cholesterol LDL Cholesterol, Calc HDL Cholesterol Vitamin B12 Folate TSH Urine Color Urine Appearance Urine pH Ur Specific [place] Urine Protein Urine Glucose (UA) Urine Ketones Urine Blood Urine Nitrite Ur Leukocyte Esterase Salicylates Urine Opiates Screen Ur Buprenorphine Scrn Ur Oxycodone Screen Urine Methadone Screen Urine Fentanyl Screen Acetaminophen Ur Barbiturates Screen Ur Phencyclidine Scrn Ur Amphetamines Screen U Benzodiazepines Scrn Urine Cocaine Screen U Marijuana (THC) Screen Ethyl Alcohol Rheumatoid Factor LENORE Screen LENORE Titer LENORE Titer 2 LENORE Titer 3 LENORE Pattern LENORE Pattern 2 LENORE Pattern 3 Double Strand DNA Ab RPR Titer RPR Lyme Screen IgG & IgM Lyme Progressive Test HIV 1&2 Ab/P24 Ag 4thGn 01/19/25 01/19/25 01/19/25 12:57 12:57 12:57 WBC RBC Hgb Hct MCV 92.8 MCH 31.3 31.8 MCHC 33.2 34.2 RDW 12.2 Plt Count MPV Immature Gran % (Auto) Neut % (Auto) Lymph % (Auto) [place] % (Auto) Eos % (Auto) Baso % (Auto) Lymph # (Auto) [place] # (Auto) Eos # (Auto) Baso # (Auto) Abs Immat Gran (auto) Absolute Neuts (auto) Absolute Nucleated RBC Nucleated RBC % (auto) ESR PT INR Sodium Potassium Chloride Carbon Dioxide Anion Gap BUN Creatinine Estim Creat Clear Calc Estimated GFR POC Glucose Random Glucose Calcium Total Bilirubin AST ALT Alkaline Phosphatase Ammonia C-Reactive Protein Total Protein Albumin Triglycerides Cholesterol LDL Cholesterol, Calc HDL Cholesterol Vitamin B12 Folate TSH Urine Color Urine Appearance Urine pH Ur Specific [place] Urine Protein Urine Glucose (UA) Urine Ketones Urine Blood Urine Nitrite Ur Leukocyte Esterase Salicylates Urine Opiates Screen Ur Buprenorphine Scrn Ur Oxycodone Screen Urine Methadone Screen Urine Fentanyl Screen Acetaminophen Ur Barbiturates Screen Ur Phencyclidine Scrn Ur Amphetamines Screen U Benzodiazepines Scrn Urine Cocaine Screen U Marijuana (THC) Screen Ethyl Alcohol Rheumatoid Factor LENORE Screen LENORE Titer LENORE Titer 2 LENORE Titer 3 LENORE Pattern LENORE Pattern 2 LENORE Pattern 3 Double Strand DNA Ab RPR Titer RPR Lyme Screen IgG & IgM Lyme Progressive Test HIV 1&2 Ab/P24 Ag 4thGn 01/19/25 01/19/25 01/19/25 12:57 12:57 12:57 WBC RBC Hgb Hct MCV MCH MCHC RDW 12.3 Plt Count 185 184 MPV 10.5 10.3 Immature Gran % (Auto) 0.2 Neut % (Auto) Lymph % (Auto) [place] % (Auto) Eos % (Auto) Baso % (Auto) Lymph # (Auto) [place] # (Auto) Eos # (Auto) Baso # (Auto) Abs Immat Gran (auto) Absolute Neuts (auto) Absolute Nucleated RBC Nucleated RBC % (auto) ESR PT INR Sodium Potassium Chloride Carbon Dioxide Anion Gap BUN Creatinine Estim Creat Clear Calc Estimated GFR POC Glucose Random Glucose Calcium Total Bilirubin AST ALT Alkaline Phosphatase Ammonia C-Reactive Protein Total Protein Albumin Triglycerides Cholesterol LDL Cholesterol, Calc HDL Cholesterol Vitamin B12 Folate TSH Urine Color Urine Appearance Urine pH Ur Specific [place] Urine Protein Urine Glucose (UA) Urine Ketones Urine Blood Urine Nitrite Ur Leukocyte Esterase Salicylates Urine Opiates Screen Ur Buprenorphine Scrn Ur Oxycodone Screen Urine Methadone Screen Urine Fentanyl Screen Acetaminophen Ur Barbiturates Screen Ur Phencyclidine Scrn Ur Amphetamines Screen U Benzodiazepines Scrn Urine Cocaine Screen U Marijuana (THC) Screen Ethyl Alcohol Rheumatoid Factor LENORE Screen LENORE Titer LENORE Titer 2 LENORE Titer 3 LENORE Pattern LENORE Pattern 2 LENORE Pattern 3 Double Strand DNA Ab RPR Titer RPR Lyme Screen IgG & IgM Lyme Progressive Test HIV 1&2 Ab/P24 Ag 4thGn 01/19/25 01/19/25 01/19/25 12:57 12:57 12:57 WBC RBC Hgb Hct MCV MCH MCHC RDW Plt Count MPV Immature Gran % (Auto) 0.2 Neut % (Auto) 58.7 58.5 Lymph % (Auto) 32.0 32.3 [place] % (Auto) 6.4 Eos % (Auto) Baso % (Auto) Lymph # (Auto) [place] # (Auto) Eos # (Auto) Baso # (Auto) Abs Immat Gran (auto) Absolute Neuts (auto) Absolute Nucleated RBC Nucleated RBC % (auto) ESR PT INR Sodium Potassium Chloride Carbon Dioxide Anion Gap BUN Creatinine Estim Creat Clear Calc Estimated GFR POC Glucose Random Glucose Calcium Total Bilirubin AST ALT Alkaline Phosphatase Ammonia C-Reactive Protein Total Protein Albumin Triglycerides Cholesterol LDL Cholesterol, Calc HDL Cholesterol Vitamin B12 Folate TSH Urine Color Urine Appearance Urine pH Ur Specific [place] Urine Protein Urine Glucose (UA) Urine Ketones Urine Blood Urine Nitrite Ur Leukocyte Esterase Salicylates Urine Opiates Screen Ur Buprenorphine Scrn Ur Oxycodone Screen Urine Methadone Screen Urine Fentanyl Screen Acetaminophen Ur Barbiturates Screen Ur Phencyclidine Scrn Ur Amphetamines Screen U Benzodiazepines Scrn Urine Cocaine Screen U Marijuana (THC) Screen Ethyl Alcohol Rheumatoid Factor LENORE Screen LENORE Titer LENORE Titer 2 LENORE Titer 3 LENORE Pattern LENORE Pattern 2 LENORE Pattern 3 Double Strand DNA Ab RPR Titer RPR Lyme Screen IgG & IgM Lyme Progressive Test HIV 1&2 Ab/P24 Ag 4thGn 01/19/25 01/19/25 01/19/25 12:57 12:57 12:57 WBC RBC Hgb Hct MCV MCH MCHC RDW Plt Count MPV Immature Gran % (Auto) Neut % (Auto) Lymph % (Auto) [place] % (Auto) 7.0 Eos % (Auto) 2.1 1.4 Baso % (Auto) 0.6 0.6 Lymph # (Auto) 1.7 [place] # (Auto) Eos # (Auto) Baso # (Auto) Abs Immat Gran (auto) Absolute Neuts (auto) Absolute Nucleated RBC Nucleated RBC % (auto) ESR PT INR Sodium Potassium Chloride Carbon Dioxide Anion Gap BUN Creatinine Estim Creat Clear Calc Estimated GFR POC Glucose Random Glucose Calcium Total Bilirubin AST ALT Alkaline Phosphatase Ammonia C-Reactive Protein Total Protein Albumin Triglycerides Cholesterol LDL Cholesterol, Calc HDL Cholesterol Vitamin B12 Folate TSH Urine Color Urine Appearance Urine pH Ur Specific [place] Urine Protein Urine Glucose (UA) Urine Ketones Urine Blood Urine Nitrite Ur Leukocyte Esterase Salicylates Urine Opiates Screen Ur Buprenorphine Scrn Ur Oxycodone Screen Urine Methadone Screen Urine Fentanyl Screen Acetaminophen Ur Barbiturates Screen Ur Phencyclidine Scrn Ur Amphetamines Screen U Benzodiazepines Scrn Urine Cocaine Screen U Marijuana (THC) Screen Ethyl Alcohol Rheumatoid Factor LENORE Screen LENORE Titer LENORE Titer 2 LENORE Titer 3 LENORE Pattern LENORE Pattern 2 LENORE Pattern 3 Double Strand DNA Ab RPR Titer RPR Lyme Screen IgG & IgM Lyme Progressive Test HIV 1&2 Ab/P24 Ag 4thGn 0601/19/25 01/19/25 12:57 12:57 12:57 WBC RBC Hgb Hct MCV MCH MCHC RDW Plt Count MPV Immature Gran % (Auto) Neut % (Auto) Lymph % (Auto) [place] % (Auto) Eos % (Auto) Baso % (Auto) Lymph # (Auto) 1.6 [place] # (Auto) 0.3 0.4 Eos # (Auto) 0.1 0.1 Baso # (Auto) 0.0 Abs Immat Gran (auto) Absolute Neuts (auto) Absolute Nucleated RBC Nucleated RBC % (auto) ESR PT INR Sodium Potassium Chloride Carbon Dioxide Anion Gap BUN Creatinine Estim Creat Clear Calc Estimated GFR POC Glucose Random Glucose Calcium Total Bilirubin AST ALT Alkaline Phosphatase Ammonia C-Reactive Protein Total Protein Albumin Triglycerides Cholesterol LDL Cholesterol, Calc HDL Cholesterol Vitamin B12 Folate TSH Urine Color Urine Appearance Urine pH Ur Specific [place] Urine Protein Urine Glucose (UA) Urine Ketones Urine Blood Urine Nitrite Ur Leukocyte Esterase Salicylates Urine Opiates Screen Ur Buprenorphine Scrn Ur Oxycodone Screen Urine Methadone Screen Urine Fentanyl Screen Acetaminophen Ur Barbiturates Screen Ur Phencyclidine Scrn Ur Amphetamines Screen U Benzodiazepines Scrn Urine Cocaine Screen U Marijuana (THC) Screen Ethyl Alcohol Rheumatoid Factor LENORE Screen LENORE Titer LENORE Titer 2 LENORE Titer 3 LENORE Pattern LENORE Pattern 2 LENORE Pattern 3 Double Strand DNA Ab RPR Titer RPR Lyme Screen IgG & IgM Lyme Progressive Test HIV 1&2 Ab/P24 Ag 4thGn 01/19/25 01/19/25 01/19/25 12:57 12:57 12:57 WBC RBC Hgb Hct MCV MCH MCHC RDW Plt Count MPV Immature Gran % (Auto) Neut % (Auto) Lymph % (Auto) [place] % (Auto) Eos % (Auto) Baso % (Auto) Lymph # (Auto) [place] # (Auto) Eos # (Auto) Baso # (Auto) 0.0 Abs Immat Gran (auto) 0.01 0.01 Absolute Neuts (auto) 3.1 2.9 Absolute Nucleated RBC 0.000 Nucleated RBC % (auto) ESR PT INR Sodium Potassium Chloride Carbon Dioxide Anion Gap BUN Creatinine Estim Creat Clear Calc Estimated GFR POC Glucose Random Glucose Calcium Total Bilirubin AST ALT Alkaline Phosphatase Ammonia C-Reactive Protein Total Protein Albumin Triglycerides Cholesterol LDL Cholesterol, Calc HDL Cholesterol Vitamin B12 Folate TSH Urine Color Urine Appearance Urine pH Ur Specific [place] Urine Protein Urine Glucose (UA) Urine Ketones Urine Blood Urine Nitrite Ur Leukocyte Esterase Salicylates Urine Opiates Screen Ur Buprenorphine Scrn Ur Oxycodone Screen Urine Methadone Screen Urine Fentanyl Screen Acetaminophen Ur Barbiturates Screen Ur Phencyclidine Scrn Ur Amphetamines Screen U Benzodiazepines Scrn Urine Cocaine Screen U Marijuana (THC) Screen Ethyl Alcohol Rheumatoid Factor LENORE Screen LENORE Titer LENORE Titer 2 LENORE Titer 3 LENORE Pattern LENORE Pattern 2 LENORE Pattern 3 Double Strand DNA Ab RPR Titer RPR Lyme Screen IgG & IgM Lyme Progressive Test HIV 1&2 Ab/P24 Ag 4thGn 01/19/25 01/19/25 01/19/25 12:57 12:57 12:57 WBC RBC Hgb Hct MCV MCH MCHC RDW Plt Count MPV Immature Gran % (Auto) Neut % (Auto) Lymph % (Auto) [place] % (Auto) Eos % (Auto) Baso % (Auto) Lymph # (Auto) [place] # (Auto) Eos # (Auto) Baso # (Auto) Abs Immat Gran (auto) Absolute Neuts (auto) Absolute Nucleated RBC 0.000 Nucleated RBC % (auto) 0.0 0.0 ESR PT INR Sodium 142 142 Potassium 3.8 Chloride Carbon Dioxide Anion Gap BUN Creatinine Estim Creat Clear Calc Estimated GFR POC Glucose Random Glucose Calcium Total Bilirubin AST ALT Alkaline Phosphatase Ammonia C-Reactive Protein Total Protein Albumin Triglycerides Cholesterol LDL Cholesterol, Calc HDL Cholesterol Vitamin B12 Folate TSH Urine Color Urine Appearance Urine pH Ur Specific [place] Urine Protein Urine Glucose (UA) Urine Ketones Urine Blood Urine Nitrite Ur Leukocyte Esterase Salicylates Urine Opiates Screen Ur Buprenorphine Scrn Ur Oxycodone Screen Urine Methadone Screen Urine Fentanyl Screen Acetaminophen Ur Barbiturates Screen Ur Phencyclidine Scrn Ur Amphetamines Screen U Benzodiazepines Scrn Urine Cocaine Screen U Marijuana (THC) Screen Ethyl Alcohol Rheumatoid Factor LENORE Screen LENORE Titer LENORE Titer 2 LENORE Titer 3 LENORE Pattern LENORE Pattern 2 LENORE Pattern 3 Double Strand DNA Ab RPR Titer RPR Lyme Screen IgG & IgM Lyme Progressive Test HIV 1&2 Ab/P24 Ag 4thGn 01/19/25 01/19/25 01/19/25 12:57 12:57 12:57 WBC RBC Hgb Hct MCV MCH MCHC RDW Plt Count MPV Immature Gran % (Auto) Neut % (Auto) Lymph % (Auto) [place] % (Auto) Eos % (Auto) Baso % (Auto) Lymph # (Auto) [place] # (Auto) Eos # (Auto) Baso # (Auto) Abs Immat Gran (auto) Absolute Neuts (auto) Absolute Nucleated RBC Nucleated RBC % (auto) ESR PT INR Sodium Potassium 3.8 Chloride 105 105 Carbon Dioxide 29 29 Anion Gap 12 BUN Creatinine Estim Creat Clear Calc Estimated GFR POC Glucose Random Glucose Calcium Total Bilirubin AST ALT Alkaline Phosphatase Ammonia C-Reactive Protein Total Protein Albumin Triglycerides Cholesterol LDL Cholesterol, Calc HDL Cholesterol Vitamin B12 Folate TSH Urine Color Urine Appearance Urine pH Ur Specific [place] Urine Protein Urine Glucose (UA) Urine Ketones Urine Blood Urine Nitrite Ur Leukocyte Esterase Salicylates Urine Opiates Screen Ur Buprenorphine Scrn Ur Oxycodone Screen Urine Methadone Screen Urine Fentanyl Screen Acetaminophen Ur Barbiturates Screen Ur Phencyclidine Scrn Ur Amphetamines Screen U Benzodiazepines Scrn Urine Cocaine Screen U Marijuana (THC) Screen Ethyl Alcohol Rheumatoid Factor LENORE Screen LENORE Titer LENORE Titer 2 LENORE Titer 3 LENORE Pattern LENORE Pattern 2 LENORE Pattern 3 Double Strand DNA Ab RPR Titer RPR Lyme Screen IgG & IgM Lyme Progressive Test HIV 1&2 Ab/P24 Ag 4th 01/19/25 01/19/25 01/19/25 12:57 12:57 12:57 WBC RBC Hgb Hct MCV MCH MCHC RDW Plt Count MPV Immature Gran % (Auto) Neut % (Auto) Lymph % (Auto) [place] % (Auto) Eos % (Auto) Baso % (Auto) Lymph # (Auto) [place] # (Auto) Eos # (Auto) Baso # (Auto) Abs Immat Gran (auto) Absolute Neuts (auto) Absolute Nucleated RBC Nucleated RBC % (auto) ESR PT INR Sodium Potassium Chloride Carbon Dioxide Anion Gap 12 BUN 17 H 17 H Creatinine 0.84 0.89 Estim Creat Clear Calc 62.0 Estimated GFR POC Glucose Random Glucose Calcium Total Bilirubin AST ALT Alkaline Phosphatase Ammonia C-Reactive Protein Total Protein Albumin Triglycerides Cholesterol LDL Cholesterol, Calc HDL Cholesterol Vitamin B12 Folate TSH Urine Color Urine Appearance Urine pH Ur Specific [place] Urine Protein Urine Glucose (UA) Urine Ketones Urine Blood Urine Nitrite Ur Leukocyte Esterase Salicylates Urine Opiates Screen Ur Buprenorphine Scrn Ur Oxycodone Screen Urine Methadone Screen Urine Fentanyl Screen Acetaminophen Ur Barbiturates Screen Ur Phencyclidine Scrn Ur Amphetamines Screen U Benzodiazepines Scrn Urine Cocaine Screen U Marijuana (THC) Screen Ethyl Alcohol Rheumatoid Factor LENORE Screen LENORE Titer LENORE Titer 2 LENORE Titer 3 LENORE Pattern LENORE Pattern 2 LENORE Pattern 3 Double Strand DNA Ab RPR Titer RPR Lyme Screen IgG & IgM Lyme Progressive Test HIV 1&2 Ab/P24 Ag 4thGn 01/19/25 01/19/25 01/19/25 12:57 12:57 12:57 WBC RBC Hgb Hct MCV MCH MCHC RDW Plt Count MPV Immature Gran % (Auto) Neut % (Auto) Lymph % (Auto) [place] % (Auto) Eos % (Auto) Baso % (Auto) Lymph # (Auto) [place] # (Auto) Eos # (Auto) Baso # (Auto) Abs Immat Gran (auto) Absolute Neuts (auto) Absolute Nucleated RBC Nucleated RBC % (auto) ESR PT INR Sodium Potassium Chloride Carbon Dioxide Anion Gap BUN Creatinine Estim Creat Clear Calc 58.5 Estimated GFR > 60 > 60 POC Glucose Random Glucose 127 H 124 H Calcium 9.7 Total Bilirubin AST ALT Alkaline Phosphatase Ammonia C-Reactive Protein Total Protein Albumin Triglycerides Cholesterol LDL Cholesterol, Calc HDL Cholesterol Vitamin B12 Folate TSH Urine Color Urine Appearance Urine pH Ur Specific [place] Urine Protein Urine Glucose (UA) Urine Ketones Urine Blood Urine Nitrite Ur Leukocyte Esterase Salicylates Urine Opiates Screen Ur Buprenorphine Scrn Ur Oxycodone Screen Urine Methadone Screen Urine Fentanyl Screen Acetaminophen Ur Barbiturates Screen Ur Phencyclidine Scrn Ur Amphetamines Screen U Benzodiazepines Scrn Urine Cocaine Screen U Marijuana (THC) Screen Ethyl Alcohol Rheumatoid Factor LENORE Screen LENORE Titer LENORE Titer 2 LENORE Titer 3 LENORE Pattern LENORE Pattern 2 LENORE Pattern 3 Double Strand DNA Ab RPR Titer RPR Lyme Screen IgG & IgM Lyme Progressive Test HIV 1&2 Ab/P24 Ag 4thGn 01/19/25 01/19/25 01/19/25 12:57 12:57 12:57 WBC RBC Hgb Hct MCV MCH MCHC RDW Plt Count MPV Immature Gran % (Auto) Neut % (Auto) Lymph % (Auto) [place] % (Auto) Eos % (Auto) Baso % (Auto) Lymph # (Auto) [place] # (Auto) Eos # (Auto) Baso # (Auto) Abs Immat Gran (auto) Absolute Neuts (auto) Absolute Nucleated RBC Nucleated RBC % (auto) ESR PT INR Sodium Potassium Chloride Carbon Dioxide Anion Gap BUN Creatinine Estim Creat Clear Calc Estimated GFR POC Glucose Random Glucose Calcium 9.7 Total Bilirubin 0.3 0.3 AST 32 H 32 H ALT 47 H Alkaline Phosphatase Ammonia C-Reactive Protein Total Protein Albumin Triglycerides Cholesterol LDL Cholesterol, Calc HDL Cholesterol Vitamin B12 Folate TSH Urine Color Urine Appearance Urine pH Ur Specific [place] Urine Protein Urine Glucose (UA) Urine Ketones Urine Blood Urine Nitrite Ur Leukocyte Esterase Salicylates Urine Opiates Screen Ur Buprenorphine Scrn Ur Oxycodone Screen Urine Methadone Screen Urine Fentanyl Screen Acetaminophen Ur Barbiturates Screen Ur Phencyclidine Scrn Ur Amphetamines Screen U Benzodiazepines Scrn Urine Cocaine Screen U Marijuana (THC) Screen Ethyl Alcohol Rheumatoid Factor LENORE Screen LENORE Titer LENORE Titer 2 LENORE Titer 3 LENORE Pattern LENORE Pattern 2 LENORE Pattern 3 Double Strand DNA Ab RPR Titer RPR Lyme Screen IgG & IgM Lyme Progressive Test HIV 1&2 Ab/P24 Ag 4thGn 01/19/25 01/19/25 01/19/25 12:57 12:57 12:57 WBC RBC Hgb Hct MCV MCH MCHC RDW Plt Count MPV Immature Gran % (Auto) Neut % (Auto) Lymph % (Auto) [place] % (Auto) Eos % (Auto) Baso % (Auto) Lymph # (Auto) [place] # (Auto) Eos # (Auto) Baso # (Auto) Abs Immat Gran (auto) Absolute Neuts (auto) Absolute Nucleated RBC Nucleated RBC % (auto) ESR PT INR Sodium Potassium Chloride Carbon Dioxide Anion Gap BUN Creatinine Estim Creat Clear Calc Estimated GFR POC Glucose Random Glucose Calcium Total Bilirubin AST ALT 47 H Alkaline Phosphatase 66 68 Ammonia C-Reactive Protein Total Protein 7.5 7.6 Albumin 4.1 Triglycerides Cholesterol LDL Cholesterol, Calc HDL Cholesterol Vitamin B12 Folate TSH Urine Color Urine Appearance Urine pH Ur Specific [place] Urine Protein Urine Glucose (UA) Urine Ketones Urine Blood Urine Nitrite Ur Leukocyte Esterase Salicylates Urine Opiates Screen Ur Buprenorphine Scrn Ur Oxycodone Screen Urine Methadone Screen Urine Fentanyl Screen Acetaminophen Ur Barbiturates Screen Ur Phencyclidine Scrn Ur Amphetamines Screen U Benzodiazepines Scrn Urine Cocaine Screen U Marijuana (THC) Screen Ethyl Alcohol Rheumatoid Factor LENORE Screen LENORE Titer LENORE Titer 2 LENORE Titer 3 LENORE Pattern LENORE Pattern 2 LENORE Pattern 3 Double Strand DNA Ab RPR Titer RPR Lyme Screen IgG & IgM Lyme Progressive Test HIV 1&2 Ab/P24 Ag 4thGn 01/19/25 02/03/25 02/17/25 12:57 07:41 11:38 WBC RBC Hgb Hct MCV MCH MCHC RDW Plt Count MPV Immature Gran % (Auto) Neut % (Auto) Lymph % (Auto) [place] % (Auto) Eos % (Auto) Baso % (Auto) Lymph # (Auto) [place] # (Auto) Eos # (Auto) Baso # (Auto) Abs Immat Gran (auto) Absolute Neuts (auto) Absolute Nucleated RBC Nucleated RBC % (auto) ESR PT INR Sodium 142 Potassium 4.3 Chloride 103 Carbon Dioxide 33 H Anion Gap 10 L BUN 40 H Creatinine 1.07 Estim Creat Clear Calc 49.6 Estimated GFR 51 POC Glucose 82 Random Glucose 94 Calcium 9.5 Total Bilirubin 0.2 AST 25 ALT 34 H Alkaline Phosphatase 77 Ammonia C-Reactive Protein Total Protein 7.5 Albumin 4.1 3.9 Triglycerides 43 Cholesterol 182 LDL Cholesterol, Calc 97 HDL Cholesterol 77 Vitamin B12 948 H Folate 10.2 TSH 1.54 Urine Color Urine Appearance Urine pH Ur Specific [place] Urine Protein Urine Glucose (UA) Urine Ketones Urine Blood Urine Nitrite Ur Leukocyte Esterase Salicylates < 5.0 L Urine Opiates Screen Ur Buprenorphine Scrn Ur Oxycodone Screen Urine Methadone Screen Urine Fentanyl Screen Acetaminophen < 3 Ur Barbiturates Screen Ur Phencyclidine Scrn Ur Amphetamines Screen U Benzodiazepines Scrn Urine Cocaine Screen U Marijuana (THC) Screen Ethyl Alcohol < 10 Rheumatoid Factor LENORE Screen LENORE Titer LENORE Titer 2 LENORE Titer 3 LENORE Pattern LENORE Pattern 2 LENORE Pattern 3 Double Strand DNA Ab RPR Titer RPR Lyme Screen IgG & IgM Lyme Progressive Test HIV 1&2 Ab/P24 Ag 4thGn 02/17/25 02/17/25 02/19/25 17:26 17:27 07:48 WBC 4.2 L RBC 4.11 L Hgb 12.9 Hct 38.7 MCV 94.2 MCH 31.4 MCHC 33.3 RDW 11.9 Plt Count 151 L MPV 10.8 Immature Gran % (Auto) 0.0 Neut % (Auto) 50.7 Lymph % (Auto) 35.1 [place] % (Auto) 8.5 Eos % (Auto) 5.0 H Baso % (Auto) 0.7 Lymph # (Auto) 1.5 [place] # (Auto) 0.4 Eos # (Auto) 0.2 Baso # (Auto) 0.0 Abs Immat Gran (auto) 0.00 Absolute Neuts (auto) 2.2 Absolute Nucleated RBC 0.000 Nucleated RBC % (auto) 0.0 ESR 37 H PT INR Sodium 142 Potassium 4.5 Chloride 101 Carbon Dioxide 34 H Anion Gap 12 BUN 30 H Creatinine 1.04 Estim Creat Clear Calc 51.1 Estimated GFR 53 POC Glucose Random Glucose 101 Calcium 9.7 Total Bilirubin 0.3 AST 25 ALT 30 Alkaline Phosphatase 69 Ammonia 21 C-Reactive Protein 0.11 Total Protein 7.4 Albumin 3.9 Triglycerides Cholesterol LDL Cholesterol, Calc HDL Cholesterol Vitamin B12 Folate TSH Urine Color Urine Appearance Urine pH Ur Specific [place] Urine Protein Urine Glucose (UA) Urine Ketones Urine Blood Urine Nitrite Ur Leukocyte Esterase Salicylates Urine Opiates Screen Ur Buprenorphine Scrn Ur Oxycodone Screen Urine Methadone Screen Urine Fentanyl Screen Acetaminophen Ur Barbiturates Screen Ur Phencyclidine Scrn Ur Amphetamines Screen U Benzodiazepines Scrn Urine Cocaine Screen U Marijuana (THC) Screen Ethyl Alcohol Rheumatoid Factor LENORE Screen POSITIVE A LENORE Titer 1:320 H LENORE Titer 2 TNP LENORE Titer 3 TNP LENORE Pattern Nuclear, Homogeneous A LENORE Pattern 2 TNP LENORE Pattern 3 TNP Double Strand DNA Ab RPR Titer RPR Lyme Screen IgG & IgM Lyme Progressive Test HIV 1&2 Ab/P24 Ag 4thGn 03/03/25 03/03/25 03/05/25 11:07 18:31 07:38 WBC RBC Hgb Hct MCV MCH MCHC RDW Plt Count MPV Immature Gran % (Auto) Neut % (Auto) Lymph % (Auto) [place] % (Auto) Eos % (Auto) Baso % (Auto) Lymph # (Auto) [place] # (Auto) Eos # (Auto) Baso # (Auto) Abs Immat Gran (auto) Absolute Neuts (auto) Absolute Nucleated RBC Nucleated RBC % (auto) ESR PT INR Sodium 141 Potassium 4.4 Chloride 103 Carbon Dioxide 32 H Anion Gap 10 L BUN 28 H Creatinine 1.01 Estim Creat Clear Calc 52.6 Estimated GFR 55 POC Glucose Random Glucose 86 Calcium 9.7 Total Bilirubin 0.2 AST 27 ALT 30 Alkaline Phosphatase 69 Ammonia C-Reactive Protein Total Protein 7.6 Albumin 4.1 Triglycerides Cholesterol LDL Cholesterol, Calc HDL Cholesterol Vitamin B12 Folate TSH Urine Color Urine Appearance Urine pH Ur Specific [place] Urine Protein Urine Glucose (UA) Urine Ketones Urine Blood Urine Nitrite Ur Leukocyte Esterase Salicylates Urine Opiates Screen Ur Buprenorphine Scrn Ur Oxycodone Screen Urine Methadone Screen Urine Fentanyl Screen Acetaminophen Ur Barbiturates Screen Ur Phencyclidine Scrn Ur Amphetamines Screen U Benzodiazepines Scrn Urine Cocaine Screen U Marijuana (THC) Screen Ethyl Alcohol Rheumatoid Factor 141.3 H LENORE Screen LENORE Titer LENORE Titer 2 LENORE Titer 3 LENORE Pattern LENORE Pattern 2 LENORE Pattern 3 Double Strand DNA Ab 1 RPR Titer TNP RPR NON-REACTIVE Lyme Screen IgG & IgM <0.90 Lyme Progressive Test TNP HIV 1&2 Ab/P24 Ag 4thGn Nonreactive 03/09/25 07:27 WBC RBC Hgb Hct MCV MCH MCHC RDW Plt Count MPV Immature Gran % (Auto) Neut % (Auto) Lymph % (Auto) [place] % (Auto) Eos % (Auto) Baso % (Auto) Lymph # (Auto) [place] # (Auto) Eos # (Auto) Baso # (Auto) Abs Immat Gran (auto) Absolute Neuts (auto) Absolute Nucleated RBC Nucleated RBC % (auto) ESR PT 10.5 L INR 0.9 Sodium Potassium Chloride Carbon Dioxide Anion Gap BUN Creatinine Estim Creat Clear Calc Estimated GFR POC Glucose Random Glucose Calcium Total Bilirubin AST ALT Alkaline Phosphatase Ammonia C-Reactive Protein Total Protein Albumin Triglycerides Cholesterol LDL Cholesterol, Calc HDL Cholesterol Vitamin B12 Folate TSH Urine Color Urine Appearance Urine pH Ur Specific [place] Urine Protein Urine Glucose (UA) Urine Ketones Urine Blood Urine Nitrite Ur Leukocyte Esterase Salicylates Urine Opiates Screen Ur Buprenorphine Scrn Ur Oxycodone Screen Urine Methadone Screen Urine Fentanyl Screen Acetaminophen Ur Barbiturates Screen Ur Phencyclidine Scrn Ur Amphetamines Screen U Benzodiazepines Scrn Urine Cocaine Screen U Marijuana (THC) Screen Ethyl Alcohol Rheumatoid Factor LENORE Screen LENORE Titer LENORE Titer 2 LENORE Titer 3 LENORE Pattern LENORE Pattern 2 LENORE Pattern 3 Double Strand DNA Ab RPR Titer RPR Lyme Screen IgG & IgM Lyme Progressive Test HIV 1&2 Ab/P24 Ag 4thGn Assessment and Plan Final Anesthetic Review Family History of Problems with Anesthesia: No History of Problems with Anesthesia: No
--- NOTE | 2025-03-09 11:54 | P.CONAN_ITS ---
[facility] Active Problems Active Problems: All Active Problems (Updated 03/05/25 @ 10:56 by Milena Dimas NP) Trochanteric bursitis of both hips (Acute) Rheumatoid arthritis involving hand with positive rheumatoid factor (Acute) Encephalopathy (Acute) COPD (chronic obstructive pulmonary disease) (Acute) Psychosis (Acute) Past Medical History Functional capacity: independent ambulation Family History Family history of problems with anesthesia: No Surgical History History of Problems with Anesthesia: No Social History Social History Household Members: Unknown / Unable to assess Housing: Unknown / Unable to assess Do you presently have visiting nurse or other home services: No Patient Tobacco Use Status: Former Tobacco user Tobacco use type: Cigarette Smoked in Last 30 Days: No e-Cigarette/Vaping Use: Never Used Patient Interested in Nicotine Replacement: No Patient Given Instructions on How to Stop Smoking: No Second Hand Smoke Exposure: No Currently Displaying Signs/Symptoms of Drug Intoxication Withdrawal: No Spiritual Healthcare Practices: unknown, pt unable to respond due to mental status/psychosis [facility] Practices: unknown, pt unable to respond due to mental status/psychosis Cultural Healthcare Practices: unknown, pt unable to respond due to mental status/psychosis Are you DNR?: No Advance Directives: No Advance Directives Information Provided: No Do you have thoughts of harming others: None Do you have a plan to hurt others: No Plan Recently lost weight without trying: Unsure How much weight loss: Unsure Eating poorly because of decreased appetite: No Nutrition screen score: 4 Nutrition Risks: No Nutritional Risk Patient : No : No Poor oral hygiene: No service: No Sexual orientation: Straight/Heterosexual Meds Allergies Allergy/AdvReac Type Severity Reaction Status Date / Time latex Allergy Unknown Verified 03/09/25 11:50 peanut Allergy Unknown Verified 03/09/25 11:50 Penicillins Allergy Unknown Verified 03/09/25 11:50 Active Medications: Current Medications Acetaminophen (Acetaminophen 325 Mg Tablet) 650 mg PO Q6H PRN PRN Reason: Headache/Pain, Scale 1-10 Last Admin: 03/07/25 09:44 Dose: 650 mg Al Hydroxide/Mg Hydroxide (Magnesium Hydrox/Alum Hydrox 30 Ml Oral.Susp) 30 ml PO Q6H PRN PRN Reason: Heartburn/Nausea Albuterol Sulfate (Albuterol Sulfate 90 Mcg 8 Gm Inhaler) 2 puff INHALE Q4H PRN PRN Reason: Shortness Of Breath Or Wheezing Atorvastatin Calcium (Atorvastatin Calcium 40 Mg Tablet) 40 mg PO DAILY [facility] Last Admin: 03/09/25 08:20 Dose: Not Given Benztropine Mesylate (Benztropine Mesylate 0.5 Mg Tablet) 0.5 mg PO DAILY [facility] Last Admin: 03/09/25 08:17 Dose: 0.5 mg Benztropine Mesylate (Benztropine Mesylate 1 Mg Tablet) 1 mg PO BEDTIME [facility] Last Admin: 03/08/25 20:22 Dose: 1 mg Clonazepam (Clonazepam Odt 0.5 Mg Tab.Rapdis) 0.5 mg PO BID PRN PRN Reason: severe anxiety/sleep Last Admin: 03/07/25 20:09 Dose: 0.5 mg Fluphenazine HCl (Fluphenazine Hcl 2.5 Mg/Ml 10 Ml Vial) 2.5 mg IM BID PRN PRN Reason: give if refuses oral per HCP Last Admin: 03/05/25 09:42 Dose: 2.5 mg Fluphenazine HCl (Fluphenazine Hcl 2.5 Mg Tablet) 2.5 mg PO DAILY [facility] Last Admin: 03/09/25 08:17 Dose: 2.5 mg Fluphenazine HCl (Fluphenazine Hcl 5 Mg Tablet) 5 mg PO BEDTIME [facility] Last Admin: 03/08/25 20:22 Dose: 5 mg Fluticasone/Vilanterol (Fluticasone/Vilanterol 200/25 Blst.W.Dev) 1 puff INHALE RDAILY [facility] Last Admin: 03/09/25 08:17 Dose: 1 puff Guaifenesin (Guaifenesin 200 Mg/10 Ml 10 Ml Liquid) 10 ml PO Q6H PRN PRN Reason: Cough Hydrochlorothiazide (Hydrochlorothiazide 25 Mg Tablet) 25 mg PO DAILY [facility] Last Admin: 03/09/25 08:21 Dose: Not Given Levetiracetam (Levetiracetam 250 Mg Tablet) 250 mg PO BID [facility] Last Admin: 03/09/25 08:17 Dose: 250 mg Lorazepam (Lorazepam 1 Mg Tablet) 2 mg PO DAILY PRN PRN Reason: before procedure Last Admin: 03/05/25 12:51 Dose: 2 mg Magnesium Hydroxide (Milk Of Magnesia 30 Ml Oral.Susp) 30 ml PO DAILY PRN PRN Reason: Constipation Methimazole (Methimazole 5 Mg Tablet) 5 mg PO DAILY [facility] Last Admin: 03/09/25 08:17 Dose: 5 mg Nifedipine (Nifedipine Er 30 Mg Tab.Er.24) 30 mg PO DAILY [facility]; Protocol Last Admin: 03/09/25 08:21 Dose: Not Given Olanzapine (Olanzapine 10 Mg Tablet) 10 mg PO Q6H PRN PRN Reason: severe agitation Last Admin: 03/03/25 20:33 Dose: 10 mg Tiotropium [place] (Tiotropium [place] 2.5 Mcg 1 Puff/2.5 Mcg Mist.Inhal) 1 puff INHALE RDAILY [facility] Last Admin: 03/09/25 08:22 Dose: 1 puff Trazodone HCl (Trazodone Hcl 50 Mg Tablet) 50 mg PO BEDTIME MRX1 PRN PRN Reason: Insomnia Last Admin: 03/07/25 20:09 Dose: 50 mg Home Medications ?Medication ?Instructions ?Recorded ?Confirmed ?Last Taken ?Type albuterol sulfate 90 mcg/actuation 2 puff inhalation Q 4-6H PRN 01/18/25 01/18/25 Unknown History aerosol inhaler Shortness Of Breath Or Wheez ing atorvastatin 40 mg tablet 40 mg PO DAILY 01/18/2512/29 Unknown History chlorthalidone 25 mg tablet 25 mg PO DAILY 01/18/25 Unknown History fluticasone 500 mcg-salmeterol 50 1 inh inhalation ALIVIA LY 01/18/25 01/18/25 Unknown History mcg/dose blistr powdr for inhalation (Wixela Inhub) levetiracetam 500 mg tablet 500 mg PO BID 01/18/25 Unknown History methimazole 5 mg tablet 5 mg PO DAILY 01/18/2501/18 Unknown History nifedipine 30 mg tablet,extended 30 mg PO DAILY 01/18/25 Unknown History release 24 hr terbinafine HCl 250 mg tablet 250 mg PO DAILY 01/18/25 01/18/25 Unknown History umeclidinium 62.5 mcg/actuation 1 inh inhalation DAILY 01/18/25 01/18/25 Unknown History blister powder for inhalation (Incruse Ellipta) Exam Height,Weight and Vital Signs: Height 5 ft 3 in Weight 75.6 kg Last Vital Signs Temp 97.0 F 03/09/25 11:34 Pulse 53 03/09/25 11:34 Resp 16 03/09/25 11:34 BP 147/61 H 03/09/25 11:34 Pulse Ox 97 03/09/25 11:34 O2 Del Method Room Air 03/09/25 11:34 Pertinent Lab Results Pertinent Lab Results: Laboratory Tests 01/16/25 01/19/25 01/19/25 21:32 12:57 12:57 WBC 5.3 5.0 RBC 4.44 Hgb Hct MCV MCH MCHC RDW Plt Count MPV Immature Gran % (Auto) Neut % (Auto) Lymph % (Auto) [place] % (Auto) Eos % (Auto) Baso % (Auto) Lymph # (Auto) [place] # (Auto) Eos # (Auto) Baso # (Auto) Abs Immat Gran (auto) Absolute Neuts (auto) Absolute Nucleated RBC Nucleated RBC % (auto) ESR PT INR Sodium Potassium Chloride Carbon Dioxide Anion Gap BUN Creatinine Estim Creat Clear Calc Estimated GFR POC Glucose Random Glucose Calcium Total Bilirubin AST ALT Alkaline Phosphatase Ammonia C-Reactive Protein Total Protein Albumin Triglycerides Cholesterol LDL Cholesterol, Calc HDL Cholesterol Vitamin B12 Folate TSH Urine Color Yellow Urine Appearance Clear Urine pH 6.0 Ur Specific [place] 1.015 Urine Protein Negative Urine Glucose (UA) Negative Urine Ketones Negative Urine Blood Negative Urine Nitrite Negative Ur Leukocyte Esterase Negative Salicylates Urine Opiates Screen Not Detected Ur Buprenorphine Scrn Not Detected Ur Oxycodone Screen Not Detected Urine Methadone Screen Not Detected Urine Fentanyl Screen Not Detected Acetaminophen Ur Barbiturates Screen Not Detected Ur Phencyclidine Scrn Not Detected Ur Amphetamines Screen Not Detected U Benzodiazepines Scrn Not Detected Urine Cocaine Screen Not Detected U Marijuana (THC) Screen Not Detected Ethyl Alcohol Rheumatoid Factor LENORE Screen LENORE Titer LENORE Titer 2 LENORE Titer 3 LENORE Pattern LENORE Pattern 2 LENORE Pattern 3 Double Strand DNA Ab RPR Titer RPR Lyme Screen IgG & IgM Lyme Progressive Test HIV 1&2 Ab/P24 Ag 4thGn 01/19/25 01/19/25 01/19/25 12:57 12:57 12:57 WBC RBC 4.44 Hgb 13.9 14.1 Hct 41.9 41.2 MCV 94.4 MCH MCHC RDW Plt Count MPV Immature Gran % (Auto) Neut % (Auto) Lymph % (Auto) [place] % (Auto) Eos % (Auto) Baso % (Auto) Lymph # (Auto) [place] # (Auto) Eos # (Auto) Baso # (Auto) Abs Immat Gran (auto) Absolute Neuts (auto) Absolute Nucleated RBC Nucleated RBC % (auto) ESR PT INR Sodium Potassium Chloride Carbon Dioxide Anion Gap BUN Creatinine Estim Creat Clear Calc Estimated GFR POC Glucose Random Glucose Calcium Total Bilirubin AST ALT Alkaline Phosphatase Ammonia C-Reactive Protein Total Protein Albumin Triglycerides Cholesterol LDL Cholesterol, Calc HDL Cholesterol Vitamin B12 Folate TSH Urine Color Urine Appearance Urine pH Ur Specific [place] Urine Protein Urine Glucose (UA) Urine Ketones Urine Blood Urine Nitrite Ur Leukocyte Esterase Salicylates Urine Opiates Screen Ur Buprenorphine Scrn Ur Oxycodone Screen Urine Methadone Screen Urine Fentanyl Screen Acetaminophen Ur Barbiturates Screen Ur Phencyclidine Scrn Ur Amphetamines Screen U Benzodiazepines Scrn Urine Cocaine Screen U Marijuana (THC) Screen Ethyl Alcohol Rheumatoid Factor LENORE Screen LENORE Titer LENORE Titer 2 LENORE Titer 3 LENORE Pattern LENORE Pattern 2 LENORE Pattern 3 Double Strand DNA Ab RPR Titer RPR Lyme Screen IgG & IgM Lyme Progressive Test HIV 1&2 Ab/P24 Ag 4th 01/19/25 01/19/25 01/19/25 12:57 12:57 12:57 WBC RBC Hgb Hct MCV 92.8 MCH 31.3 31.8 MCHC 33.2 34.2 RDW 12.2 Plt Count MPV Immature Gran % (Auto) Neut % (Auto) Lymph % (Auto) [place] % (Auto) Eos % (Auto) Baso % (Auto) Lymph # (Auto) [place] # (Auto) Eos # (Auto) Baso # (Auto) Abs Immat Gran (auto) Absolute Neuts (auto) Absolute Nucleated RBC Nucleated RBC % (auto) ESR PT INR Sodium Potassium Chloride Carbon Dioxide Anion Gap BUN Creatinine Estim Creat Clear Calc Estimated GFR POC Glucose Random Glucose Calcium Total Bilirubin AST ALT Alkaline Phosphatase Ammonia C-Reactive Protein Total Protein Albumin Triglycerides Cholesterol LDL Cholesterol, Calc HDL Cholesterol Vitamin B12 Folate TSH Urine Color Urine Appearance Urine pH Ur Specific [place] Urine Protein Urine Glucose (UA) Urine Ketones Urine Blood Urine Nitrite Ur Leukocyte Esterase Salicylates Urine Opiates Screen Ur Buprenorphine Scrn Ur Oxycodone Screen Urine Methadone Screen Urine Fentanyl Screen Acetaminophen Ur Barbiturates Screen Ur Phencyclidine Scrn Ur Amphetamines Screen U Benzodiazepines Scrn Urine Cocaine Screen U Marijuana (THC) Screen Ethyl Alcohol Rheumatoid Factor LENORE Screen LENORE Titer LENORE Titer 2 LENORE Titer 3 LENORE Pattern LENORE Pattern 2 LENORE Pattern 3 Double Strand DNA Ab RPR Titer RPR Lyme Screen IgG & IgM Lyme Progressive Test HIV 1&2 Ab/P24 Ag 4thGn 01/19/25 01/19/25 01/19/25 12:57 12:57 12:57 WBC RBC Hgb Hct MCV MCH MCHC RDW 12.3 Plt Count 185 184 MPV 10.5 10.3 Immature Gran % (Auto) 0.2 Neut % (Auto) Lymph % (Auto) [place] % (Auto) Eos % (Auto) Baso % (Auto) Lymph # (Auto) [place] # (Auto) Eos # (Auto) Baso # (Auto) Abs Immat Gran (auto) Absolute Neuts (auto) Absolute Nucleated RBC Nucleated RBC % (auto) ESR PT INR Sodium Potassium Chloride Carbon Dioxide Anion Gap BUN Creatinine Estim Creat Clear Calc Estimated GFR POC Glucose Random Glucose Calcium Total Bilirubin AST ALT Alkaline Phosphatase Ammonia C-Reactive Protein Total Protein Albumin Triglycerides Cholesterol LDL Cholesterol, Calc HDL Cholesterol Vitamin B12 Folate TSH Urine Color Urine Appearance Urine pH Ur Specific [place] Urine Protein Urine Glucose (UA) Urine Ketones Urine Blood Urine Nitrite Ur Leukocyte Esterase Salicylates Urine Opiates Screen Ur Buprenorphine Scrn Ur Oxycodone Screen Urine Methadone Screen Urine Fentanyl Screen Acetaminophen Ur Barbiturates Screen Ur Phencyclidine Scrn Ur Amphetamines Screen U Benzodiazepines Scrn Urine Cocaine Screen U Marijuana (THC) Screen Ethyl Alcohol Rheumatoid Factor LENORE Screen LENORE Titer LENORE Titer 2 LENORE Titer 3 LENORE Pattern LENORE Pattern 2 LENORE Pattern 3 Double Strand DNA Ab RPR Titer RPR Lyme Screen IgG & IgM Lyme Progressive Test HIV 1&2 Ab/P24 Ag 4thGn 01/19/25 01/19/25 01/19/25 12:57 12:57 12:57 WBC RBC Hgb Hct MCV MCH MCHC RDW Plt Count MPV Immature Gran % (Auto) 0.2 Neut % (Auto) 58.7 58.5 Lymph % (Auto) 32.0 32.3 [place] % (Auto) 6.4 Eos % (Auto) Baso % (Auto) Lymph # (Auto) [place] # (Auto) Eos # (Auto) Baso # (Auto) Abs Immat Gran (auto) Absolute Neuts (auto) Absolute Nucleated RBC Nucleated RBC % (auto) ESR PT INR Sodium Potassium Chloride Carbon Dioxide Anion Gap BUN Creatinine Estim Creat Clear Calc Estimated GFR POC Glucose Random Glucose Calcium Total Bilirubin AST ALT Alkaline Phosphatase Ammonia C-Reactive Protein Total Protein Albumin Triglycerides Cholesterol LDL Cholesterol, Calc HDL Cholesterol Vitamin B12 Folate TSH Urine Color Urine Appearance Urine pH Ur Specific [place] Urine Protein Urine Glucose (UA) Urine Ketones Urine Blood Urine Nitrite Ur Leukocyte Esterase Salicylates Urine Opiates Screen Ur Buprenorphine Scrn Ur Oxycodone Screen Urine Methadone Screen Urine Fentanyl Screen Acetaminophen Ur Barbiturates Screen Ur Phencyclidine Scrn Ur Amphetamines Screen U Benzodiazepines Scrn Urine Cocaine Screen U Marijuana (THC) Screen Ethyl Alcohol Rheumatoid Factor LENORE Screen LENORE Titer LENORE Titer 2 LENORE Titer 3 LENORE Pattern LENORE Pattern 2 LENORE Pattern 3 Double Strand DNA Ab RPR Titer RPR Lyme Screen IgG & IgM Lyme Progressive Test HIV 1&2 Ab/P24 Ag 4thGn 01/19/25 01/19/25 01/19/25 12:57 12:57 12:57 WBC RBC Hgb Hct MCV MCH MCHC RDW Plt Count MPV Immature Gran % (Auto) Neut % (Auto) Lymph % (Auto) [place] % (Auto) 7.0 Eos % (Auto) 2.1 1.4 Baso % (Auto) 0.6 0.6 Lymph # (Auto) 1.7 [place] # (Auto) Eos # (Auto) Baso # (Auto) Abs Immat Gran (auto) Absolute Neuts (auto) Absolute Nucleated RBC Nucleated RBC % (auto) ESR PT INR Sodium Potassium Chloride Carbon Dioxide Anion Gap BUN Creatinine Estim Creat Clear Calc Estimated GFR POC Glucose Random Glucose Calcium Total Bilirubin AST ALT Alkaline Phosphatase Ammonia C-Reactive Protein Total Protein Albumin Triglycerides Cholesterol LDL Cholesterol, Calc HDL Cholesterol Vitamin B12 Folate TSH Urine Color Urine Appearance Urine pH Ur Specific [place] Urine Protein Urine Glucose (UA) Urine Ketones Urine Blood Urine Nitrite Ur Leukocyte Esterase Salicylates Urine Opiates Screen Ur Buprenorphine Scrn Ur Oxycodone Screen Urine Methadone Screen Urine Fentanyl Screen Acetaminophen Ur Barbiturates Screen Ur Phencyclidine Scrn Ur Amphetamines Screen U Benzodiazepines Scrn Urine Cocaine Screen U Marijuana (THC) Screen Ethyl Alcohol Rheumatoid Factor LENORE Screen LENORE Titer LENORE Titer 2 LENORE Titer 3 LENORE Pattern LENORE Pattern 2 LENORE Pattern 3 Double Strand DNA Ab RPR Titer RPR Lyme Screen IgG & IgM Lyme Progressive Test HIV 1&2 Ab/P24 Ag 4thGn 01/19/25 01/19/25 01/19/25 12:57 12:57 12:57 WBC RBC Hgb Hct MCV MCH MCHC RDW Plt Count MPV Immature Gran % (Auto) Neut % (Auto) Lymph % (Auto) [place] % (Auto) Eos % (Auto) Baso % (Auto) Lymph # (Auto) 1.6 [place] # (Auto) 0.3 0.4 Eos # (Auto) 0.1 0.1 Baso # (Auto) 0.0 Abs Immat Gran (auto) Absolute Neuts (auto) Absolute Nucleated RBC Nucleated RBC % (auto) ESR PT INR Sodium Potassium Chloride Carbon Dioxide Anion Gap BUN Creatinine Estim Creat Clear Calc Estimated GFR POC Glucose Random Glucose Calcium Total Bilirubin AST ALT Alkaline Phosphatase Ammonia C-Reactive Protein Total Protein Albumin Triglycerides Cholesterol LDL Cholesterol, Calc HDL Cholesterol Vitamin B12 Folate TSH Urine Color Urine Appearance Urine pH Ur Specific [place] Urine Protein Urine Glucose (UA) Urine Ketones Urine Blood Urine Nitrite Ur Leukocyte Esterase Salicylates Urine Opiates Screen Ur Buprenorphine Scrn Ur Oxycodone Screen Urine Methadone Screen Urine Fentanyl Screen Acetaminophen Ur Barbiturates Screen Ur Phencyclidine Scrn Ur Amphetamines Screen U Benzodiazepines Scrn Urine Cocaine Screen U Marijuana (THC) Screen Ethyl Alcohol Rheumatoid Factor LENORE Screen LENORE Titer LENORE Titer 2 LENORE Titer 3 LENORE Pattern LENORE Pattern 2 LENORE Pattern 3 Double Strand DNA Ab RPR Titer RPR Lyme Screen IgG & IgM Lyme Progressive Test HIV 1&2 Ab/P24 Ag 4thGn 01/19/25 01/19/25 01/19/25 12:57 12:57 12:57 WBC RBC Hgb Hct MCV MCH MCHC RDW Plt Count MPV Immature Gran % (Auto) Neut % (Auto) Lymph % (Auto) [place] % (Auto) Eos % (Auto) Baso % (Auto) Lymph # (Auto) [place] # (Auto) Eos # (Auto) Baso # (Auto) 0.0 Abs Immat Gran (auto) 0.01 0.01 Absolute Neuts (auto) 3.1 2.9 Absolute Nucleated RBC 0.000 Nucleated RBC % (auto) ESR PT INR Sodium Potassium Chloride Carbon Dioxide Anion Gap BUN Creatinine Estim Creat Clear Calc Estimated GFR POC Glucose Random Glucose Calcium Total Bilirubin AST ALT Alkaline Phosphatase Ammonia C-Reactive Protein Total Protein Albumin Triglycerides Cholesterol LDL Cholesterol, Calc HDL Cholesterol Vitamin B12 Folate TSH Urine Color Urine Appearance Urine pH Ur Specific [place] Urine Protein Urine Glucose (UA) Urine Ketones Urine Blood Urine Nitrite Ur Leukocyte Esterase Salicylates Urine Opiates Screen Ur Buprenorphine Scrn Ur Oxycodone Screen Urine Methadone Screen Urine Fentanyl Screen Acetaminophen Ur Barbiturates Screen Ur Phencyclidine Scrn Ur Amphetamines Screen U Benzodiazepines Scrn Urine Cocaine Screen U Marijuana (THC) Screen Ethyl Alcohol Rheumatoid Factor LENORE Screen LENORE Titer LENORE Titer 2 LENORE Titer 3 LENORE Pattern LENORE Pattern 2 LENORE Pattern 3 Double Strand DNA Ab RPR Titer RPR Lyme Screen IgG & IgM Lyme Progressive Test HIV 1&2 Ab/P24 Ag 4thGn 01/19/25 01/19/25 01/19/25 12:57 12:57 12:57 WBC RBC Hgb Hct MCV MCH MCHC RDW Plt Count MPV Immature Gran % (Auto) Neut % (Auto) Lymph % (Auto) [place] % (Auto) Eos % (Auto) Baso % (Auto) Lymph # (Auto) [place] # (Auto) Eos # (Auto) Baso # (Auto) Abs Immat Gran (auto) Absolute Neuts (auto) Absolute Nucleated RBC 0.000 Nucleated RBC % (auto) 0.0 0.0 ESR PT INR Sodium 142 142 Potassium 3.8 Chloride Carbon Dioxide Anion Gap BUN Creatinine Estim Creat Clear Calc Estimated GFR POC Glucose Random Glucose Calcium Total Bilirubin AST ALT Alkaline Phosphatase Ammonia C-Reactive Protein Total Protein Albumin Triglycerides Cholesterol LDL Cholesterol, Calc HDL Cholesterol Vitamin B12 Folate TSH Urine Color Urine Appearance Urine pH Ur Specific [place] Urine Protein Urine Glucose (UA) Urine Ketones Urine Blood Urine Nitrite Ur Leukocyte Esterase Salicylates Urine Opiates Screen Ur Buprenorphine Scrn Ur Oxycodone Screen Urine Methadone Screen Urine Fentanyl Screen Acetaminophen Ur Barbiturates Screen Ur Phencyclidine Scrn Ur Amphetamines Screen U Benzodiazepines Scrn Urine Cocaine Screen U Marijuana (THC) Screen Ethyl Alcohol Rheumatoid Factor LENORE Screen LENORE Titer LENORE Titer 2 LENORE Titer 3 LENORE Pattern LENORE Pattern 2 LENORE Pattern 3 Double Strand DNA Ab RPR Titer RPR Lyme Screen IgG & IgM Lyme Progressive Test HIV 1&2 Ab/P24 Ag 4thGn 01/19/25 01/19/25 01/19/25 12:57 12:57 12:57 WBC RBC Hgb Hct MCV MCH MCHC RDW Plt Count MPV Immature Gran % (Auto) Neut % (Auto) Lymph % (Auto) [place] % (Auto) Eos % (Auto) Baso % (Auto) Lymph # (Auto) [place] # (Auto) Eos # (Auto) Baso # (Auto) Abs Immat Gran (auto) Absolute Neuts (auto) Absolute Nucleated RBC Nucleated RBC % (auto) ESR PT INR Sodium Potassium 3.8 Chloride 105 105 Carbon Dioxide 29 29 Anion Gap 12 BUN Creatinine Estim Creat Clear Calc Estimated GFR POC Glucose Random Glucose Calcium Total Bilirubin AST ALT Alkaline Phosphatase Ammonia C-Reactive Protein Total Protein Albumin Triglycerides Cholesterol LDL Cholesterol, Calc HDL Cholesterol Vitamin B12 Folate TSH Urine Color Urine Appearance Urine pH Ur Specific [place] Urine Protein Urine Glucose (UA) Urine Ketones Urine Blood Urine Nitrite Ur Leukocyte Esterase Salicylates Urine Opiates Screen Ur Buprenorphine Scrn Ur Oxycodone Screen Urine Methadone Screen Urine Fentanyl Screen Acetaminophen Ur Barbiturates Screen Ur Phencyclidine Scrn Ur Amphetamines Screen U Benzodiazepines Scrn Urine Cocaine Screen U Marijuana (THC) Screen Ethyl Alcohol Rheumatoid Factor LENORE Screen LENORE Titer LENORE Titer 2 LENORE Titer 3 LENORE Pattern LENORE Pattern 2 LENORE Pattern 3 Double Strand DNA Ab RPR Titer RPR Lyme Screen IgG & IgM Lyme Progressive Test HIV 1&2 Ab/P24 Ag 4th 01/19/25 01/19/25 01/19/25 12:57 12:57 12:57 WBC RBC Hgb Hct MCV MCH MCHC RDW Plt Count MPV Immature Gran % (Auto) Neut % (Auto) Lymph % (Auto) [place] % (Auto) Eos % (Auto) Baso % (Auto) Lymph # (Auto) [place] # (Auto) Eos # (Auto) Baso # (Auto) Abs Immat Gran (auto) Absolute Neuts (auto) Absolute Nucleated RBC Nucleated RBC % (auto) ESR PT INR Sodium Potassium Chloride Carbon Dioxide Anion Gap 12 BUN 17 H 17 H Creatinine 0.84 0.89 Estim Creat Clear Calc 62.0 Estimated GFR POC Glucose Random Glucose Calcium Total Bilirubin AST ALT Alkaline Phosphatase Ammonia C-Reactive Protein Total Protein Albumin Triglycerides Cholesterol LDL Cholesterol, Calc HDL Cholesterol Vitamin B12 Folate TSH Urine Color Urine Appearance Urine pH Ur Specific [place] Urine Protein Urine Glucose (UA) Urine Ketones Urine Blood Urine Nitrite Ur Leukocyte Esterase Salicylates Urine Opiates Screen Ur Buprenorphine Scrn Ur Oxycodone Screen Urine Methadone Screen Urine Fentanyl Screen Acetaminophen Ur Barbiturates Screen Ur Phencyclidine Scrn Ur Amphetamines Screen U Benzodiazepines Scrn Urine Cocaine Screen U Marijuana (THC) Screen Ethyl Alcohol Rheumatoid Factor LENORE Screen LENORE Titer LENORE Titer 2 LENORE Titer 3 LENORE Pattern LENORE Pattern 2 LENORE Pattern 3 Double Strand DNA Ab RPR Titer RPR Lyme Screen IgG & IgM Lyme Progressive Test HIV 1&2 Ab/P24 Ag 4thGn 01/19/25 01/19/25 01/19/25 12:57 12:57 12:57 WBC RBC Hgb Hct MCV MCH MCHC RDW Plt Count MPV Immature Gran % (Auto) Neut % (Auto) Lymph % (Auto) [place] % (Auto) Eos % (Auto) Baso % (Auto) Lymph # (Auto) [place] # (Auto) Eos # (Auto) Baso # (Auto) Abs Immat Gran (auto) Absolute Neuts (auto) Absolute Nucleated RBC Nucleated RBC % (auto) ESR PT INR Sodium Potassium Chloride Carbon Dioxide Anion Gap BUN Creatinine Estim Creat Clear Calc 58.5 Estimated GFR > 60 > 60 POC Glucose Random Glucose 127 H 124 H Calcium 9.7 Total Bilirubin AST ALT Alkaline Phosphatase Ammonia C-Reactive Protein Total Protein Albumin Triglycerides Cholesterol LDL Cholesterol, Calc HDL Cholesterol Vitamin B12 Folate TSH Urine Color Urine Appearance Urine pH Ur Specific [place] Urine Protein Urine Glucose (UA) Urine Ketones Urine Blood Urine Nitrite Ur Leukocyte Esterase Salicylates Urine Opiates Screen Ur Buprenorphine Scrn Ur Oxycodone Screen Urine Methadone Screen Urine Fentanyl Screen Acetaminophen Ur Barbiturates Screen Ur Phencyclidine Scrn Ur Amphetamines Screen U Benzodiazepines Scrn Urine Cocaine Screen U Marijuana (THC) Screen Ethyl Alcohol Rheumatoid Factor LENORE Screen LENORE Titer LENORE Titer 2 LENORE Titer 3 LENORE Pattern LENORE Pattern 2 LENORE Pattern 3 Double Strand DNA Ab RPR Titer RPR Lyme Screen IgG & IgM Lyme Progressive Test HIV 1&2 Ab/P24 Ag 4thGn 01/19/25 01/19/25 01/19/25 12:57 12:57 12:57 WBC RBC Hgb Hct MCV MCH MCHC RDW Plt Count MPV Immature Gran % (Auto) Neut % (Auto) Lymph % (Auto) [place] % (Auto) Eos % (Auto) Baso % (Auto) Lymph # (Auto) [place] # (Auto) Eos # (Auto) Baso # (Auto) Abs Immat Gran (auto) Absolute Neuts (auto) Absolute Nucleated RBC Nucleated RBC % (auto) ESR PT INR Sodium Potassium Chloride Carbon Dioxide Anion Gap BUN Creatinine Estim Creat Clear Calc Estimated GFR POC Glucose Random Glucose Calcium 9.7 Total Bilirubin 0.3 0.3 AST 32 H 32 H ALT 47 H Alkaline Phosphatase Ammonia C-Reactive Protein Total Protein Albumin Triglycerides Cholesterol LDL Cholesterol, Calc HDL Cholesterol Vitamin B12 Folate TSH Urine Color Urine Appearance Urine pH Ur Specific [place] Urine Protein Urine Glucose (UA) Urine Ketones Urine Blood Urine Nitrite Ur Leukocyte Esterase Salicylates Urine Opiates Screen Ur Buprenorphine Scrn Ur Oxycodone Screen Urine Methadone Screen Urine Fentanyl Screen Acetaminophen Ur Barbiturates Screen Ur Phencyclidine Scrn Ur Amphetamines Screen U Benzodiazepines Scrn Urine Cocaine Screen U Marijuana (THC) Screen Ethyl Alcohol Rheumatoid Factor LENORE Screen LENORE Titer LENORE Titer 2 LENORE Titer 3 LENORE Pattern LENORE Pattern 2 LENORE Pattern 3 Double Strand DNA Ab RPR Titer RPR Lyme Screen IgG & IgM Lyme Progressive Test HIV 1&2 Ab/P24 Ag 4thGn 01/19/25 01/19/25 01/19/25 12:57 12:57 12:57 WBC RBC Hgb Hct MCV MCH MCHC RDW Plt Count MPV Immature Gran % (Auto) Neut % (Auto) Lymph % (Auto) [place] % (Auto) Eos % (Auto) Baso % (Auto) Lymph # (Auto) [place] # (Auto) Eos # (Auto) Baso # (Auto) Abs Immat Gran (auto) Absolute Neuts (auto) Absolute Nucleated RBC Nucleated RBC % (auto) ESR PT INR Sodium Potassium Chloride Carbon Dioxide Anion Gap BUN Creatinine Estim Creat Clear Calc Estimated GFR POC Glucose Random Glucose Calcium Total Bilirubin AST ALT 47 H Alkaline Phosphatase 66 68 Ammonia C-Reactive Protein Total Protein 7.5 7.6 Albumin 4.1 Triglycerides Cholesterol LDL Cholesterol, Calc HDL Cholesterol Vitamin B12 Folate TSH Urine Color Urine Appearance Urine pH Ur Specific [place] Urine Protein Urine Glucose (UA) Urine Ketones Urine Blood Urine Nitrite Ur Leukocyte Esterase Salicylates Urine Opiates Screen Ur Buprenorphine Scrn Ur Oxycodone Screen Urine Methadone Screen Urine Fentanyl Screen Acetaminophen Ur Barbiturates Screen Ur Phencyclidine Scrn Ur Amphetamines Screen U Benzodiazepines Scrn Urine Cocaine Screen U Marijuana (THC) Screen Ethyl Alcohol Rheumatoid Factor LENORE Screen LENORE Titer LENORE Titer 2 LENORE Titer 3 LENORE Pattern LENORE Pattern 2 LENORE Pattern 3 Double Strand DNA Ab RPR Titer RPR Lyme Screen IgG & IgM Lyme Progressive Test HIV 1&2 Ab/P24 Ag 4thGn 01/19/25 02/03/25 02/17/25 12:57 07:41 11:38 WBC RBC Hgb Hct MCV MCH MCHC RDW Plt Count MPV Immature Gran % (Auto) Neut % (Auto) Lymph % (Auto) [place] % (Auto) Eos % (Auto) Baso % (Auto) Lymph # (Auto) [place] # (Auto) Eos # (Auto) Baso # (Auto) Abs Immat Gran (auto) Absolute Neuts (auto) Absolute Nucleated RBC Nucleated RBC % (auto) ESR PT INR Sodium 142 Potassium 4.3 Chloride 103 Carbon Dioxide 33 H Anion Gap 10 L BUN 40 H Creatinine 1.07 Estim Creat Clear Calc 49.6 Estimated GFR 51 POC Glucose 82 Random Glucose 94 Calcium 9.5 Total Bilirubin 0.2 AST 25 ALT 34 H Alkaline Phosphatase 77 Ammonia C-Reactive Protein Total Protein 7.5 Albumin 4.1 3.9 Triglycerides 43 Cholesterol 182 LDL Cholesterol, Calc 97 HDL Cholesterol 77 Vitamin B12 948 H Folate 10.2 TSH 1.54 Urine Color Urine Appearance Urine pH Ur Specific [place] Urine Protein Urine Glucose (UA) Urine Ketones Urine Blood Urine Nitrite Ur Leukocyte Esterase Salicylates < 5.0 L Urine Opiates Screen Ur Buprenorphine Scrn Ur Oxycodone Screen Urine Methadone Screen Urine Fentanyl Screen Acetaminophen < 3 Ur Barbiturates Screen Ur Phencyclidine Scrn Ur Amphetamines Screen U Benzodiazepines Scrn Urine Cocaine Screen U Marijuana (THC) Screen Ethyl Alcohol < 10 Rheumatoid Factor LENORE Screen LENORE Titer LENORE Titer 2 LENORE Titer 3 LENORE Pattern LENORE Pattern 2 LENORE Pattern 3 Double Strand DNA Ab RPR Titer RPR Lyme Screen IgG & IgM Lyme Progressive Test HIV 1&2 Ab/P24 Ag 4thGn 02/17/25 02/17/25 02/19/25 17:26 17:27 07:48 WBC 4.2 L RBC 4.11 L Hgb 12.9 Hct 38.7 MCV 94.2 MCH 31.4 MCHC 33.3 RDW 11.9 Plt Count 151 L MPV 10.8 Immature Gran % (Auto) 0.0 Neut % (Auto) 50.7 Lymph % (Auto) 35.1 [place] % (Auto) 8.5 Eos % (Auto) 5.0 H Baso % (Auto) 0.7 Lymph # (Auto) 1.5 [place] # (Auto) 0.4 Eos # (Auto) 0.2 Baso # (Auto) 0.0 Abs Immat Gran (auto) 0.00 Absolute Neuts (auto) 2.2 Absolute Nucleated RBC 0.000 Nucleated RBC % (auto) 0.0 ESR 37 H PT INR Sodium 142 Potassium 4.5 Chloride 101 Carbon Dioxide 34 H Anion Gap 12 BUN 30 H Creatinine 1.04 Estim Creat Clear Calc 51.1 Estimated GFR 53 POC Glucose Random Glucose 101 Calcium 9.7 Total Bilirubin 0.3 AST 25 ALT 30 Alkaline Phosphatase 69 Ammonia 21 C-Reactive Protein 0.11 Total Protein 7.4 Albumin 3.9 Triglycerides Cholesterol LDL Cholesterol, Calc HDL Cholesterol Vitamin B12 Folate TSH Urine Color Urine Appearance Urine pH Ur Specific [place] Urine Protein Urine Glucose (UA) Urine Ketones Urine Blood Urine Nitrite Ur Leukocyte Esterase Salicylates Urine Opiates Screen Ur Buprenorphine Scrn Ur Oxycodone Screen Urine Methadone Screen Urine Fentanyl Screen Acetaminophen Ur Barbiturates Screen Ur Phencyclidine Scrn Ur Amphetamines Screen U Benzodiazepines Scrn Urine Cocaine Screen U Marijuana (THC) Screen Ethyl Alcohol Rheumatoid Factor LENORE Screen POSITIVE A LENORE Titer 1:320 H LENORE Titer 2 TNP LENORE Titer 3 TNP LENORE Pattern Nuclear, Homogeneous A LENORE Pattern 2 TNP LENORE Pattern 3 TNP Double Strand DNA Ab RPR Titer RPR Lyme Screen IgG & IgM Lyme Progressive Test HIV 1&2 Ab/P24 Ag 4thGn 03/03/25 03/03/25 03/05/25 11:07 18:31 07:38 WBC RBC Hgb Hct MCV MCH MCHC RDW Plt Count MPV Immature Gran % (Auto) Neut % (Auto) Lymph % (Auto) [place] % (Auto) Eos % (Auto) Baso % (Auto) Lymph # (Auto) [place] # (Auto) Eos # (Auto) Baso # (Auto) Abs Immat Gran (auto) Absolute Neuts (auto) Absolute Nucleated RBC Nucleated RBC % (auto) ESR PT INR Sodium 141 Potassium 4.4 Chloride 103 Carbon Dioxide 32 H Anion Gap 10 L BUN 28 H Creatinine 1.01 Estim Creat Clear Calc 52.6 Estimated GFR 55 POC Glucose Random Glucose 86 Calcium 9.7 Total Bilirubin 0.2 AST 27 ALT 30 Alkaline Phosphatase 69 Ammonia C-Reactive Protein Total Protein 7.6 Albumin 4.1 Triglycerides Cholesterol LDL Cholesterol, Calc HDL Cholesterol Vitamin B12 Folate TSH Urine Color Urine Appearance Urine pH Ur Specific [place] Urine Protein Urine Glucose (UA) Urine Ketones Urine Blood Urine Nitrite Ur Leukocyte Esterase Salicylates Urine Opiates Screen Ur Buprenorphine Scrn Ur Oxycodone Screen Urine Methadone Screen Urine Fentanyl Screen Acetaminophen Ur Barbiturates Screen Ur Phencyclidine Scrn Ur Amphetamines Screen U Benzodiazepines Scrn Urine Cocaine Screen U Marijuana (THC) Screen Ethyl Alcohol Rheumatoid Factor 141.3 H LENORE Screen LENORE Titer LENORE Titer 2 LENORE Titer 3 LENORE Pattern LENORE Pattern 2 LENORE Pattern 3 Double Strand DNA Ab 1 RPR Titer TNP RPR NON-REACTIVE Lyme Screen IgG & IgM <0.90 Lyme Progressive Test TNP HIV 1&2 Ab/P24 Ag 4thGn Nonreactive 03/09/25 07:27 WBC RBC Hgb Hct MCV MCH MCHC RDW Plt Count MPV Immature Gran % (Auto) Neut % (Auto) Lymph % (Auto) [place] % (Auto) Eos % (Auto) Baso % (Auto) Lymph # (Auto) [place] # (Auto) Eos # (Auto) Baso # (Auto) Abs Immat Gran (auto) Absolute Neuts (auto) Absolute Nucleated RBC Nucleated RBC % (auto) ESR PT 10.5 L INR 0.9 Sodium Potassium Chloride Carbon Dioxide Anion Gap BUN Creatinine Estim Creat Clear Calc Estimated GFR POC Glucose Random Glucose Calcium Total Bilirubin AST ALT Alkaline Phosphatase Ammonia C-Reactive Protein Total Protein Albumin Triglycerides Cholesterol LDL Cholesterol, Calc HDL Cholesterol Vitamin B12 Folate TSH Urine Color Urine Appearance Urine pH Ur Specific [place] Urine Protein Urine Glucose (UA) Urine Ketones Urine Blood Urine Nitrite Ur Leukocyte Esterase Salicylates Urine Opiates Screen Ur Buprenorphine Scrn Ur Oxycodone Screen Urine Methadone Screen Urine Fentanyl Screen Acetaminophen Ur Barbiturates Screen Ur Phencyclidine Scrn Ur Amphetamines Screen U Benzodiazepines Scrn Urine Cocaine Screen U Marijuana (THC) Screen Ethyl Alcohol Rheumatoid Factor LENORE Screen LENORE Titer LENORE Titer 2 LENORE Titer 3 LENORE Pattern LENORE Pattern 2 LENORE Pattern 3 Double Strand DNA Ab RPR Titer RPR Lyme Screen IgG & IgM Lyme Progressive Test HIV 1&2 Ab/P24 Ag 4thGn Assessment and Plan Final Anesthetic Review Family History of Problems with Anesthesia: No History of Problems with Anesthesia: No
[2025-03-09] MEDS: Lactated Ringers 1,000 ML 50 ML IV (11:57)
[2025-03-09 13:04] VITALS: BP 120/80; PULSE 75; RESP 16; TEMP 36.2; O2SAT 98
[2025-03-09 13:20] VITALS: BP 137/61; PULSE 53; RESP 14; TEMP 36.2; O2SAT 95
[2025-03-09 14:04] VITALS: BP 176/71; PULSE 60; RESP 16; TEMP 36.2; O2SAT 94
[2025-03-09] MEDS: NIFEdipine ER 30 MG TAB.ER.24 PO (14:11)
[2025-03-09 14:31] LABS: Lymphocytes CSF 87 %; Red Blood Cell CSF 8 MM*3; White Blood Cell CSF 1 MM*3
[2025-03-09 20:00] VITALS: BP 135/60; PULSE 61; RESP 16; TEMP 36.8; O2SAT 98
[2025-03-10 08:00] VITALS: BP 128/62; PULSE 55; RESP 16; TEMP 2.4; TEMP 36.3; O2SAT 96
[2025-03-10] MEDS: NIFEdipine ER 30 MG TAB.ER.24 PO (08:23)
[2025-03-10] MEDS: Fluticasone/Vilanterol 200/25 BLST.W.DEV 1 PUFF INHALE (08:23)
[2025-03-10] MEDS: Tiotropium Bromide 2.5 mcg 1 PUFF/2.5 MCG MIST.INHAL INHALE (08:23)
--- NOTE | 2025-03-10 11:04 | PM.NEUROCN ---
History of Present Illness Data of Consult Service Date: 03/10/25 Primary Care Provider: Unknown Physician HPI Reason for consult: Encephalopathy 69 years old woman being investigated for encephalopathy. 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 She was noted to have new onset of psychiatric symptoms including psychotic symptoms. She could not have an MRI because of cochlear implant. Review of Systems Review of Systems: Could not be done with her because of severe deafness PMFSH Social History Social History Household Members: Unknown / Unable to assess Housing: Unknown / Unable to assess Do you presently have visiting nurse or other home services: No Patient Tobacco Use Status: Former Tobacco user Tobacco use type: Cigarette Smoked in Last 30 Days: No e-Cigarette/Vaping Use: Never Used Patient Interested in Nicotine Replacement: No Patient Given Instructions on How to Stop Smoking: No Second Hand Smoke Exposure: No Currently Displaying Signs/Symptoms of Drug Intoxication Withdrawal: No Spiritual Healthcare Practices: unknown, pt unable to respond due to mental status/psychosis [facility] Healthcare Practices: unknown, pt unable to respond due to mental status/psychosis Cultural Healthcare Practices: unknown, pt unable to respond due to mental status/psychosis Are you DNR?: No Advance Directives: No Advance Directives Information Provided: No Do you have thoughts of harming others: None Do you have a plan to hurt others: No Plan Recently lost weight without trying: Unsure How much weight loss: Unsure Eating poorly because of decreased appetite: No Nutrition screen score: 4 Nutrition Risks: No Nutritional Risk Patient : No : No Poor oral hygiene: No service: No Sexual orientation: Straight/Heterosexual Meds Allergies Allergy/AdvReac Type Severity Reaction Status Date / Time latex Allergy Unknown Verified 03/09/25 11:50 peanut Allergy Unknown Verified 03/09/25 11:50 Penicillins Allergy Unknown Verified 03/09/25 11:50 Active Medications: Current Medications Acetaminophen (Acetaminophen 325 Mg Tablet) 650 mg PO Q6H PRN PRN Reason: Headache/Pain, Scale 1-10 Last Admin: 03/10/25 08:55 Dose: 650 mg Al Hydroxide/Mg Hydroxide (Magnesium Hydrox/Alum Hydrox 30 Ml Oral.Susp) 30 ml PO Q6H PRN PRN Reason: Heartburn/Nausea Albuterol Sulfate (Albuterol Sulfate 90 Mcg 8 Gm Inhaler) 2 puff INHALE Q4H PRN PRN Reason: Shortness Of Breath Or Wheezing Atorvastatin Calcium (Atorvastatin Calcium 40 Mg Tablet) 40 mg PO DAILY COUNTS INCLUDE 234 BEDS AT THE [facility] Last Admin: 03/10/25 08:23 Dose: 40 mg Benztropine Mesylate (Benztropine Mesylate 0.5 Mg Tablet) 0.5 mg PO DAILY COUNTS INCLUDE 234 BEDS AT THE [facility] Last Admin: 03/10/25 08:23 Dose: 0.5 mg Benztropine Mesylate (Benztropine Mesylate 1 Mg Tablet) 1 mg PO BEDTIME COUNTS INCLUDE 234 BEDS AT THE [facility] Last Admin: 03/09/25 20:28 Dose: 1 mg Clonazepam (Clonazepam Odt 0.5 Mg Tab.Rapdis) 0.5 mg PO BID PRN PRN Reason: severe anxiety/sleep Last Admin: 03/07/25 20:09 Dose: 0.5 mg Fluphenazine HCl (Fluphenazine Hcl 2.5 Mg/Ml 10 Ml Vial) 2.5 mg IM BID PRN PRN Reason: give if refuses oral per HCP Last Admin: 03/05/25 09:42 Dose: 2.5 mg Fluphenazine HCl (Fluphenazine Hcl 2.5 Mg Tablet) 2.5 mg PO DAILY COUNTS INCLUDE 234 BEDS AT THE [facility] Last Admin: 03/09/25 08:17 Dose: 2.5 mg Fluphenazine HCl (Fluphenazine Hcl 5 Mg Tablet) 5 mg PO BEDTIME COUNTS INCLUDE 234 BEDS AT THE [facility] Last Admin: 03/09/25 20:28 Dose: 5 mg Fluticasone/Vilanterol (Fluticasone/Vilanterol 200/25 Blst.W.Dev) 1 puff INHALE RDAILY COUNTS INCLUDE 234 BEDS AT THE [facility] Last Admin: 03/10/25 08:23 Dose: 1 puff Guaifenesin (Guaifenesin 200 Mg/10 Ml 10 Ml Liquid) 10 ml PO Q6H PRN PRN Reason: Cough Hydrochlorothiazide (Hydrochlorothiazide 25 Mg Tablet) 25 mg PO DAILY COUNTS INCLUDE 234 BEDS AT THE [facility] Last Admin: 03/10/25 08:23 Dose: 25 mg Levetiracetam (Levetiracetam 250 Mg Tablet) 250 mg PO BID COUNTS INCLUDE 234 BEDS AT THE [facility] Last Admin: 03/10/25 08:23 Dose: 250 mg Lorazepam (Lorazepam 1 Mg Tablet) 2 mg PO DAILY PRN PRN Reason: before procedure Last Admin: 03/05/25 12:51 Dose: 2 mg Lorazepam (Lorazepam 1 Mg Tablet) 1 mg PO ONCE PRN PRN Reason: post LP agitation Magnesium Hydroxide (Milk Of Magnesia 30 Ml Oral.Susp) 30 ml PO DAILY PRN PRN Reason: Constipation Methimazole (Methimazole 5 Mg Tablet) 5 mg PO DAILY COUNTS INCLUDE 234 BEDS AT THE [facility] Last Admin: 03/10/25 08:23 Dose: 5 mg Naloxone HCl (Naloxone Hcl 0.4 Mg/Ml Vial) 0.04 mg IVPUSH Q5M PRN PRN Reason: Excessive sedation or RR < 8 Nifedipine (Nifedipine Er 30 Mg Tab.Er.24) 30 mg PO DAILY COUNTS INCLUDE 234 BEDS AT THE [facility]; Protocol Last Admin: 03/10/25 08:23 Dose: 30 mg Olanzapine (Olanzapine 10 Mg Tablet) 10 mg PO Q6H PRN PRN Reason: severe agitation Last Admin: 03/03/25 20:33 Dose: 10 mg Tiotropium Guin (Tiotropium Guin 2.5 Mcg 1 Puff/2.5 Mcg Mist.Inhal) 1 puff INHALE RDAILY COUNTS INCLUDE 234 BEDS AT THE [facility] Last Admin: 03/10/25 08:23 Dose: 1 puff Trazodone HCl (Trazodone Hcl 50 Mg Tablet) 50 mg PO BEDTIME MRX1 PRN PRN Reason: Insomnia Last Admin: 03/07/25 20:09 Dose: 50 mg Home Medications ?Medication ?Instructions ?Recorded ?Confirmed ?Last Taken ?Type albuterol sulfate 90 mcg/actuation 2 puff inhalation Q4-6H PRN 01/18/25 01/18/25 Unknown History aerosol inhaler Shortness Of Breath Or Wheezing atorvastatin 40 mg tablet 40 mg PO DAILY 01/18/25 01/18/25 Unknown History chlorthalidone 25 mg tablet 25 mg PO DAILY 01/18/25 01/18/25 Unknown History fluticasone 500 mcg-salmeterol 50 1 inh inhalation DAILY 01/18/25 01/18/25 Unknown History mcg/dose blistr powdr for inhalation (Eli Inhub) levetiracetam 500 mg tablet 500 mg PO BID 01/18/25 01/18/25 Unknown History methimazole 5 mg tablet 5 mg PO DAILY 01/18/25 01/18/25 Unknown History nifedipine 30 mg tablet,extended 30 mg PO DAILY 01/18/25 01/18/25 Unknown History release 24 hr terbinafine HCl 250 mg tablet 250 mg PO DAILY 01/18/25 01/18/25 Unknown History umeclidinium 62.5 mcg/actuation 1 inh inhalation DAILY 01/18/25 01/18/25 Unknown History blister powder for inhalation (Incruse Ellipta) Physical Exam Vital Signs: Vital Signs: Last Vital Signs Temp 36.3 F L 03/10/25 08:00 Pulse 55 03/10/25 08:00 Resp 16 03/10/25 08:00 BP 128/62 03/10/25 08:00 Pulse Ox 96 03/10/25 08:00 O2 Del Method Room Air 03/10/25 08:00 BMI result Body Mass Index 29.5 Neuro: Other: Exam is limited because of deafness but according to nursing she has been communicating in has not complain of discomfort or headache. She has been ambulating with the assistance. Results Labs 02/19/25 07:48 03/05/25 07:38 Labs: Were spinal fluid white cell count was normal. Glucose was 52 and protein was more than 100. Some other tests were pending. 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 With no obvious bacterial infection or viral infection, differential diagnosis would include vasculitis, autoimmune encephalitis, sarcoidosis, or atypical organism. Lupus was a possibility but patchy meningitis usually is not a feature of lupus cerebritis. Test for HIV, syphilis, and Lyme were negative. I would add test for babesiosis, and CTA of brain to rule out any signs of vasculitis type pattern. If no other or specific diagnosis is found, I would consider treatment with prednisone or steroid. Procedures Date of Service Date of Service: 03/10/25
--- NOTE | 2025-03-10 13:34 | HO.PSYCHPN ---
Subjective Subjective Date of Service: 03/10/25 Reason For Visit: Psychosis Interim History: seated on bed, awake. very [place] and mostly blind. communicates via viewing the written word, responding verbally. asking for discharge, saying she has an appointment at [facility] tomorrow, has been here a month. tearful. per staff, LP completed. self-dialoguiing. slept 3-4 hours. Mental Status Exam Mental Status Exam Narrative: Appearance: own attire, adequate grooming and hygiene Behavior: calm, cooperative Orientation: alert, confused Memory: impaired Attention: able to attend to the encounter discussion Psychomotor Function: no agitation or slowing; no abnormal gestures or movements Speech: loud Mood: fine Affect: labile, teary Thought Process: questionably organized Thought Content: possibly having delusions re [facility] appointment Hallucinations: per RN, active engagement in self dialogue Insight: impairment Judgment: impairment Impulsivity: none noted Diagnostics Vital Signs (24Hr): Vital Signs - 24 hr 03/09/25 14:04 03/09/25 20:00 03/10/25 08:00 Temperature 97.2 F 98.2 F 36.3 F L Pulse Rate 60 61 55 Respiratory Rate 16 16 16 Blood Pressure 176/71 H 135/60 128/62 Pulse Oximetry 94 98 96 Oxygen Delivery Method Room Air Room Air Room Air BMI result Body Mass Index 29.5 Labs 02/19/25 07:48 03/05/25 07:38 Labs: Laboratory Results - last 48 hr 03/09/25 03/09/25 03/09/25 07:27 12:35 12:40 PT 10.5 L INR 0.9 CSF Tube Number 1 CSF Volume CSF Appearance CSF Color CSF WBC CSF RBC CSF Lymphocytes CSF Monocytes % CSF Appearance (b) CSF Glucose CSF Total Protein CSF C.neoform/gat PCR Not Detected CSF CMV DNA (PCR) Not Detected CSF Enterovirus (PCR) Not Detected CSF E. coli K1 (PCR) Not Detected CSF H. influenzae (PCR) Not Detected CSF HSV I (PCR) Not Detected CSF HSV II (PCR) Not Detected CSF HHV 6 (PCR) Not Detected CSF L.monocytogenes PCR Not Detected CSF N. meningitidis PCR Not Detected CSF Parechovirus (PCR) Not Detected CSF S. agalactiae (PCR) Not Detected CSF S. pneumoniae (PCR) Not Detected CSF VZV (PCR) Not Detected 03/09/25 12:40 PT INR CSF Tube Number 4 CSF Volume 1.0 CSF Appearance CLEAR CSF Color COLORLESS CSF WBC 1 CSF RBC 8 CSF Lymphocytes 87 CSF Monocytes % 13 CSF Appearance (b) Clear, Colorless CSF Glucose 51 CSF Total Protein 103.2 H CSF C.neoform/gat PCR CSF CMV DNA (PCR) CSF Enterovirus (PCR) CSF E. coli K1 (PCR) CSF H. influenzae (PCR) CSF HSV I (PCR) CSF HSV II (PCR) CSF HHV 6 (PCR) CSF L.monocytogenes PCR CSF N. meningitidis PCR CSF Parechovirus (PCR) CSF S. agalactiae (PCR) CSF S. pneumoniae (PCR) CSF VZV (PCR) Imaging Radiology Impressions: ITS Impressions Head CT 03/05/25 15:51 IMPRESSION: 1. No acute intracranial abnormality. 2. Right-sided cochlear nerve implant with associated streak artifact. 3. Right-sided canal wall up mastoidectomy. Electronically signed by: Levi Greer MD 03/05/2025 04:25 PM EDT RP Lumbar Puncture Fluoroscopy 03/09/25 11:50 IMPRESSION: Successful fluoroscopy-guided lumbar puncture performed without immediate complications Electronically signed by: Thompson Andujar MD 03/09/2025 04:06 PM EDT RP Medications Medications Current Medications Acetaminophen (Acetaminophen 325 Mg Tablet) 650 mg PO Q6H PRN PRN Reason: Headache/Pain, Scale 1-10 Last Admin: 03/10/25 08:55 Dose: 650 mg Al Hydroxide/Mg Hydroxide (Magnesium Hydrox/Alum Hydrox 30 Ml Oral.Susp) 30 ml PO Q6H PRN PRN Reason: Heartburn/Nausea Albuterol Sulfate (Albuterol Sulfate 90 Mcg 8 Gm Inhaler) 2 puff INHALE Q4H PRN PRN Reason: Shortness Of Breath Or Wheezing Atorvastatin Calcium (Atorvastatin Calcium 40 Mg Tablet) 40 mg PO DAILY [facility] Last Admin: 03/10/25 08:23 Dose: 40 mg Benztropine Mesylate (Benztropine Mesylate 0.5 Mg Tablet) 0.5 mg PO DAILY [facility] Last Admin: 03/10/25 08:23 Dose: 0.5 mg Benztropine Mesylate (Benztropine Mesylate 1 Mg Tablet) 1 mg PO BEDTIME [facility] Last Admin: 03/09/25 20:28 Dose: 1 mg Clonazepam (Clonazepam Odt 0.5 Mg Tab.Rapdis) 0.5 mg PO BID PRN PRN Reason: severe anxiety/sleep Last Admin: 03/07/25 20:09 Dose: 0.5 mg Fluphenazine HCl (Fluphenazine Hcl 2.5 Mg/Ml 10 Ml Vial) 2.5 mg IM BID PRN PRN Reason: give if refuses oral per HCP Last Admin: 03/05/25 09:42 Dose: 2.5 mg Fluphenazine HCl (Fluphenazine Hcl 2.5 Mg Tablet) 2.5 mg PO DAILY [facility] Last Admin: 03/10/25 09:00 Dose: 2.5 mg Fluphenazine HCl (Fluphenazine Hcl 5 Mg Tablet) 5 mg PO BEDTIME [facility] Last Admin: 03/09/25 20:28 Dose: 5 mg Fluticasone/Vilanterol (Fluticasone/Vilanterol 200/25 Blst.W.Dev) 1 puff INHALE RDAILY [facility] Last Admin: 03/10/25 08:23 Dose: 1 puff Guaifenesin (Guaifenesin 200 Mg/10 Ml 10 Ml Liquid) 10 ml PO Q6H PRN PRN Reason: Cough Hydrochlorothiazide (Hydrochlorothiazide 25 Mg Tablet) 25 mg PO DAILY [facility] Last Admin: 03/10/25 08:23 Dose: 25 mg Levetiracetam (Levetiracetam 250 Mg Tablet) 250 mg PO BID [facility] Last Admin: 03/10/25 08:23 Dose: 250 mg Lorazepam (Lorazepam 1 Mg Tablet) 2 mg PO DAILY PRN PRN Reason: before procedure Last Admin: 03/05/25 12:51 Dose: 2 mg Lorazepam (Lorazepam 1 Mg Tablet) 1 mg PO ONCE PRN PRN Reason: post LP agitation Magnesium Hydroxide (Milk Of Magnesia 30 Ml Oral.Susp) 30 ml PO DAILY PRN PRN Reason: Constipation Methimazole (Methimazole 5 Mg Tablet) 5 mg PO DAILY [facility] Last Admin: 03/10/25 08:23 Dose: 5 mg Naloxone HCl (Naloxone Hcl 0.4 Mg/Ml Vial) 0.04 mg IVPUSH Q5M PRN PRN Reason: Excessive sedation or RR < 8 Nifedipine (Nifedipine Er 30 Mg Tab.Er.24) 30 mg PO DAILY [facility]; Protocol Last Admin: 03/10/25 08:23 Dose: 30 mg Olanzapine (Olanzapine 10 Mg Tablet) 10 mg PO Q6H PRN PRN Reason: severe agitation Last Admin: 03/03/25 20:33 Dose: 10 mg Tiotropium [place] (Tiotropium [place] 2.5 Mcg 1 Puff/2.5 Mcg Mist.Inhal) 1 puff INHALE RDAILY [facility] Last Admin: 03/10/25 08:23 Dose: 1 puff Trazodone HCl (Trazodone Hcl 50 Mg Tablet) 50 mg PO BEDTIME MRX1 PRN PRN Reason: Insomnia Last Admin: 03/07/25 20:09 Dose: 50 mg Allergies Allergies Allergy/AdvReac Type Severity Reaction Status Date / Time latex Allergy Unknown Verified 03/09/25 11:50 peanut Allergy Unknown Verified 03/09/25 11:50 Penicillins Allergy Unknown Verified 03/09/25 11:50 Assessment & Plan Assessment & Plan (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 - Encephalitis and encephalomyelitis, unspecified Assessment and Plan: 69 years old woman with 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 With no obvious bacterial infection or viral infection, differential diagnosis would include vasculitis, autoimmune encephalitis, sarcoidosis, or atypical organism. Lupus was a possibility but patchy meningitis usually is not a feature of lupus cerebritis. Test for HIV, syphilis, and Lyme were negative. I would add test for babesiosis, and CTA of brain to rule out any signs of vasculitis type pattern. If no other or specific diagnosis is found, I would consider treatment with prednisone or steroid. Plan Mrs. Sharif is a 69 year-old woman who presents with a 3 month hx of new onset of psychosis (AH) and combination of paranoid delusions and cap gras delusions. No prior psychiatric hx. She does have of cocaine use but apparently had not used in some years. Daughter suspects she may have relapsed but no ongoing use. Pt presents with more complex theme of delusions. No additional medical work up available including head CT. CBC and cmp unremarkable. 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 It may be related to dementia process but complexity of delusions and psychosis not the common presentation for dementia that have psychosis early on such as in vascular dementia or LBD. Pt presents as gravely disable to able to care for self due to symptoms of psychosis and delusions. 7/8 increase night time risperidone 2mg po qhs increase cogetin at bedtime to 1mg po qhs. lower daily dose to 0.5mg po daily. continue cogentin 0.5mg po daily. clonazepam as prn olanzapine as prn for agitation 02/04 continue tx. 02/05 continue tx. 02/06 continue current dose of risperidone. NOTE THAT pt can't take doses higher than 3 mg/day of risperidone as higher doses had severe EPS. can use olanzapine as well per court order. 02/07/25: Patient has been agitated yelling loudly exist seeking, delusional thinking her daughter/son outside at the door to pick her up. PRNs given in the morning with mild effect. Patient became agitated, aggressive\, assaultive to 1 of the staff on the floor, yelling and hitting her face so grabbing her neck. Physical was started at 16:31 to 1634. Patient was given IM medication of Zyprexa 10 and Valium 10 with good effect. Tomorrow plan: Patient will be benefit from Valium 10 mg twice a day and Zyprexa 5 mg 3 times a day is added into her scheduled medication as current plan with risperidone is not effective. Patient also having a backup for risperidone if she refused. 02/08/25: Slept most of the morning and last night. In better behavior control. No aggressive behavior. She is quiet, self dialogue, and medication compliant. Due to receive restrain medication yesterday. I did not make any medication change. But the Valium and additional Zyprexa appears to be helpful. 02/09 will try to change keppra to depakote for seizures as keppra may exacerbate psychosis. increase risperidone 1mg po daily and 2mg po qhs. may need to add second antipsychotic. 02/10 continues to present as paranoid with AH. at times declines oral medications, requiring IM back per court order. 02/11 continue tx. 02/12 continue tx. 02/13 continue tx. 02/14: no changes today. Monitor for agitation around confusion about hospitalization 02/15: no changes today, self dialogue more overt/extensive today 02/16 add olanzapine 5mg po qhs. continue risperidone. minimal improvement if any. 02/17 continue tx. 02/18 seems more somnolent with bedtime olanzapine, will continue to monitor. 02/19 cbc showed thrombocytopenia, which is new and suspect related to depakote 02/20 pt appears more sedated since addition of olanzapine at bedtime. She continues to self dialogue. minimal improvement. 02/21: Continue current management and treatment plan. 02/22: continue current management and treatment plan. 02/23 continue tx. may need to affirm HCP try different antipsychotic. 02/24 continue tx. results of [place] 1:360, pattern homogenous A. 02/25 will try rexulti, lower risperidone. pending coordination of medical care to see if underlying autoimmune condition has anything to do with current presentation. 02/26 discussed with hospital commercial litigation attorney to dismiss sect 8, HCP invoked and can consent to other treatment. daughter Maricruz give permission to try different antipsychotic. 02/27 decrease risperidone to 1mg po daily, start prolixin 2.5mg po qhs, then increase to BID. continue olanzapine prn for agitation. olanzapine as well per court order. 03/03 pt seen by neurology, added HIV/RPR/LYME, can't have MRI due to cochlear implant. 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 Last Neurology appointment 01/2024. Missed appointment with rheumatology 05/2024, last seen in 02/26/2024. - Pt can't have MRI due to cochlear implant. Had head CT. - continue prolixin 2.5mg po daily, 5mg po qhs. will d/c risperidone, increase prolixin 5mg po BID, back up IM. 03/05 continue tx. 03/06 This bid writer spoke with pt's aquatic life laborer, Dr. Al obtained collateral information. Will coordinate with neurology and rheumatology once LP results are available. r/o reoccurance of pachymeningitis, lupus or other autoimmune cause for psychosis. 03/07: Continue current regimen and plans. Discontinued one-to-one and put in place 5 minute checks 03/08: Continue current plans and regimen 03/09 continue tx. 03/10: continue current mgmt. continues disorganized and psychotic. see neuro note from today. continue with neuro w/u. Reason for continued inpatient stay Substantial Risk for: inability to function Time Spent With Patient Time: Total time managing care of this patient today __25__ minutes.
[2025-03-10 19:53] VITALS: BP 124/56; PULSE 57; RESP 16; TEMP 36.6; O2SAT 96
[2025-03-11 08:00] VITALS: BP 106/56; PULSE 58; RESP 14; TEMP 36.4; O2SAT 97
[2025-03-11 08:22] VITALS: BP 100/53
[2025-03-11] MEDS: NIFEdipine ER 30 MG TAB.ER.24 PO (08:22)
[2025-03-11] MEDS: Tiotropium Bromide 2.5 mcg 1 PUFF/2.5 MCG MIST.INHAL INHALE (08:23)
[2025-03-11] MEDS: Fluticasone/Vilanterol 200/25 BLST.W.DEV 1 PUFF INHALE (08:23)
[2025-03-11 08:26] VITALS: BP 100/53
[2025-03-11] MEDS: iohexoL 350 MG/ML 100 ML INFUS..BTL IV (12:13)
--- NOTE | 2025-03-11 15:28 | HO.PSYCHPN ---
Subjective Subjective Date of Service: 03/11/25 Reason For Visit: Psychosis Interim History: agitated, refusing medications, paranoid. asking to leave the hospital. per staff, dep/anx continue. +ADLs. eating well. taking meds. pleasant, cooperative. wants to discharge. paranoid people are spitting in her food. pleasant on eves. slept 8 hours. Mental Status Exam Mental Status Exam Narrative: Appearance: own attire, adequate grooming and hygiene Behavior: calm, cooperative Orientation: alert, confused Memory: impaired Attention: able to attend to the encounter discussion Psychomotor Function: no agitation or slowing; no abnormal gestures or movements Speech: loud Mood: fine Affect: labile, agitated Thought Process: questionably organized Thought Content: possibly having delusions re [facility] appointment Hallucinations: per RN, active engagement in self dialogue Insight: impairment Judgment: impairment Impulsivity: none noted Diagnostics Vital Signs (24Hr): Vital Signs - 24 hr 03/10/25 19:53 03/11/25 08:00 03/11/25 08:22 Temperature 97.9 F 97.5 F Pulse Rate 57 58 Respiratory Rate 16 14 Blood Pressure 124/56 L 106/56 L 100/53 L Pulse Oximetry 96 97 Oxygen Delivery Method Room Air Room Air 03/11/25 08:26 Temperature Pulse Rate Respiratory Rate Blood Pressure 100/53 L Pulse Oximetry Oxygen Delivery Method BMI result Body Mass Index 29.5 Labs 02/19/25 07:48 03/05/25 07:38 Labs: Laboratory Results - last 48 hr 03/03/25 03/09/25 11:07 12:35 CSF C.neoform/gat PCR Not Detected CSF CMV DNA (PCR) Not Detected CSF Enterovirus (PCR) Not Detected CSF E. coli K1 (PCR) Not Detected CSF H. influenzae (PCR) Not Detected CSF HSV I (PCR) Not Detected CSF HSV II (PCR) Not Detected CSF HHV 6 (PCR) Not Detected CSF L.monocytogenes PCR Not Detected CSF N. meningitidis PCR Not Detected CSF Parechovirus (PCR) Not Detected CSF S. agalactiae (PCR) Not Detected CSF S. pneumoniae (PCR) Not Detected CSF VZV (PCR) Not Detected Cycl Citrul Peptide IgG >250 H Ref Lab Test Result Cancelled Imaging Radiology Impressions: ITS Impressions Head CT 03/05/25 15:51 IMPRESSION: 1. No acute intracranial abnormality. 2. Right-sided cochlear nerve implant with associated streak artifact. 3. Right-sided canal wall up mastoidectomy. Electronically signed by: Levi Greer MD 03/05/2025 04:25 PM EDT Lumbar Puncture Fluoroscopy 03/09/25 11:50 IMPRESSION: Successful fluoroscopy-guided lumbar puncture performed without immediate complications Electronically signed by: Thompson Andujar MD 03/09/2025 04:06 PM EDT RP Chest CT 03/11/25 11:52 IMPRESSION: 1. Multiple bilateral pulmonary nodules measuring up to 10 mm in size. Further evaluation should be based on Fleischner Society guidelines below. 2. Cardiomegaly. Findings consistent with pulmonary arterial hypertension. 3. No evidence of mediastinal or hilar lymphadenopathy. Fleischner Criteria for pulmonary nodule follow-up SOLID NODULES: Low risk patient: <6mm: no follow-up 6-8mm: 6 month follow-up CT >8mm: PET/Biopsy/ 3 month follow-up CT High risk patient: <6mm: 12 month follow-up CT 6-8mm: 6 month follow-up CT >8mm: PET/Biopsy/ 3 month follow-up CT SUB-SOLID/GROUNDGLASS NODULES: All patients: > or = 6mm: 6 month follow-up CT *Please note that in patients in the following categories, the Fleischner criteria do not apply: Immunocompromised, lung cancer screening population, age below 35, and patients with known malignancy Electronically signed by: Best Clemons MD 03/11/2025 01:45 PM EDT RP Head CTA 03/11/25 11:52 IMPRESSION: Head CT: No acute intracranial abnormality. CT angiogram of the head: No vascular occlusions. Electronically signed by: Gypsy Salamanca MD 03/11/2025 03:02 PM EDT RP Medications Medications Current Medications Acetaminophen (Acetaminophen 325 Mg Tablet) 650 mg PO Q6H PRN PRN Reason: Headache/Pain, Scale 1-10 Last Admin: 03/10/25 08:55 Dose: 650 mg Al Hydroxide/Mg Hydroxide (Magnesium Hydrox/Alum Hydrox 30 Ml Oral.Susp) 30 ml PO Q6H PRN PRN Reason: Heartburn/Nausea Albuterol Sulfate (Albuterol Sulfate 90 Mcg 8 Gm Inhaler) 2 puff INHALE Q4H PRN PRN Reason: Shortness Of Breath Or Wheezing Atorvastatin Calcium (Atorvastatin Calcium 40 Mg Tablet) 40 mg PO DAILY [facility] Last Admin: 03/11/25 08:23 Dose: 40 mg Benztropine Mesylate (Benztropine Mesylate 0.5 Mg Tablet) 0.5 mg PO DAILY [facility] Last Admin: 03/11/25 08:23 Dose: 0.5 mg Benztropine Mesylate (Benztropine Mesylate 1 Mg Tablet) 1 mg PO BEDTIME [facility] Last Admin: 03/10/25 20:34 Dose: 1 mg Clonazepam (Clonazepam Odt 0.5 Mg Tab.Rapdis) 0.5 mg PO BID PRN PRN Reason: severe anxiety/sleep Last Admin: 03/07/25 20:09 Dose: 0.5 mg Fluphenazine HCl (Fluphenazine Hcl 2.5 Mg/Ml 10 Ml Vial) 2.5 mg IM BID PRN PRN Reason: give if refuses oral per HCP Last Admin: 03/05/25 09:42 Dose: 2.5 mg Fluphenazine HCl (Fluphenazine Hcl 2.5 Mg Tablet) 2.5 mg PO DAILY [facility] Last Admin: 03/11/25 08:23 Dose: 2.5 mg Fluphenazine HCl (Fluphenazine Hcl 5 Mg Tablet) 5 mg PO BEDTIME [facility] Last Admin: 03/10/25 20:34 Dose: 5 mg Fluticasone/Vilanterol (Fluticasone/Vilanterol 200/25 Blst.W.Dev) 1 puff INHALE RDAILY [facility] Last Admin: 03/11/25 08:23 Dose: 1 puff Guaifenesin (Guaifenesin 200 Mg/10 Ml 10 Ml Liquid) 10 ml PO Q6H PRN PRN Reason: Cough Hydrochlorothiazide (Hydrochlorothiazide 25 Mg Tablet) 25 mg PO DAILY [facility] Last Admin: 03/11/25 08:26 Dose: 25 mg Levetiracetam (Levetiracetam 250 Mg Tablet) 250 mg PO BID [facility] Last Admin: 03/11/25 08:23 Dose: 250 mg Lorazepam (Lorazepam 1 Mg Tablet) 2 mg PO DAILY PRN PRN Reason: before procedure Last Admin: 03/11/25 09:56 Dose: 2 mg Lorazepam (Lorazepam 1 Mg Tablet) 1 mg PO ONCE PRN PRN Reason: post LP agitation Magnesium Hydroxide (Milk Of Magnesia 30 Ml Oral.Susp) 30 ml PO DAILY PRN PRN Reason: Constipation Methimazole (Methimazole 5 Mg Tablet) 5 mg PO DAILY [facility] Last Admin: 03/11/25 08:22 Dose: 5 mg Naloxone HCl (Naloxone Hcl 0.4 Mg/Ml Vial) 0.04 mg IVPUSH Q5M PRN PRN Reason: Excessive sedation or RR < 8 Nifedipine (Nifedipine Er 30 Mg Tab.Er.24) 30 mg PO DAILY [facility]; Protocol Last Admin: 03/11/25 08:22 Dose: 30 mg Olanzapine (Olanzapine 10 Mg Tablet) 10 mg PO Q6H PRN PRN Reason: severe agitation Last Admin: 03/03/25 20:33 Dose: 10 mg Tiotropium [place] (Tiotropium [place] 2.5 Mcg 1 Puff/2.5 Mcg Mist.Inhal) 1 puff INHALE RDAILY [facility] Last Admin: 03/11/25 08:23 Dose: 1 puff Trazodone HCl (Trazodone Hcl 50 Mg Tablet) 50 mg PO BEDTIME MRX1 PRN PRN Reason: Insomnia Last Admin: 03/07/25 20:09 Dose: 50 mg Allergies Allergies Allergy/AdvReac Type Severity Reaction Status Date / Time latex Allergy Unknown Verified 03/09/25 11:50 peanut Allergy Unknown Verified 03/09/25 11:50 Penicillins Allergy Unknown Verified 03/09/25 11:50 Assessment & Plan Assessment & Plan (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 - Encephalitis and encephalomyelitis, unspecified Assessment and Plan: 69 years old woman with 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 With no obvious bacterial infection or viral infection, differential diagnosis would include vasculitis, autoimmune encephalitis, sarcoidosis, or atypical organism. Lupus was a possibility but patchy meningitis usually is not a feature of lupus cerebritis. Test for HIV, syphilis, and Lyme were negative. I would add test for babesiosis, and CTA of brain to rule out any signs of vasculitis type pattern. If no other or specific diagnosis is found, I would consider treatment with prednisone or steroid. Plan Mrs. Sharif is a 69 year-old woman who presents with a 3 month hx of new onset of psychosis (AH) and combination of paranoid delusions and cap gras delusions. No prior psychiatric hx. She does have of cocaine use but apparently had not used in some years. Daughter suspects she may have relapsed but no ongoing use. Pt presents with more complex theme of delusions. No additional medical work up available including head CT. CBC and cmp unremarkable. 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 It may be related to dementia process but complexity of delusions and psychosis not the common presentation for dementia that have psychosis early on such as in vascular dementia or LBD. Pt presents as gravely disable to able to care for self due to symptoms of psychosis and delusions. 02/03 increase night time risperidone 2mg po qhs increase cogetin at bedtime to 1mg po qhs. lower daily dose to 0.5mg po daily. continue cogentin 0.5mg po daily. clonazepam as prn olanzapine as prn for agitation 02/04 continue tx. 02/05 continue tx. 02/06 continue current dose of risperidone. NOTE THAT pt can't take doses higher than 3 mg/day of risperidone as higher doses had severe EPS. can use olanzapine as well per court order. 02/07/25: Patient has been agitated yelling loudly exist seeking, delusional thinking her daughter/son outside at the door to pick her up. PRNs given in the morning with mild effect. Patient became agitated, aggressive\, assaultive to 1 of the staff on the floor, yelling and hitting her face so grabbing her neck. Physical was started at 16:31 to 1634. Patient was given IM medication of Zyprexa 10 and Valium 10 with good effect. Tomorrow plan: Patient will be benefit from Valium 10 mg twice a day and Zyprexa 5 mg 3 times a day is added into her scheduled medication as current plan with risperidone is not effective. Patient also having a backup for risperidone if she refused. 02/08/25: Slept most of the morning and last night. In better behavior control. No aggressive behavior. She is quiet, self dialogue, and medication compliant. Due to receive restrain medication yesterday. I did not make any medication change. But the Valium and additional Zyprexa appears to be helpful. 02/09 will try to change keppra to depakote for seizures as keppra may exacerbate psychosis. increase risperidone 1mg po daily and 2mg po qhs. may need to add second antipsychotic. 02/10 continues to present as paranoid with AH. at times declines oral medications, requiring IM back per court order. 02/11 continue tx. 02/12 continue tx. 02/13 continue tx. 02/14: no changes today. Monitor for agitation around confusion about hospitalization 02/15: no changes today, self dialogue more overt/extensive today 02/16 add olanzapine 5mg po qhs. continue risperidone. minimal improvement if any. 02/17 continue tx. 02/18 seems more somnolent with bedtime olanzapine, will continue to monitor. 02/19 cbc showed thrombocytopenia, which is new and suspect related to depakote 02/20 pt appears more sedated since addition of olanzapine at bedtime. She continues to self dialogue. minimal improvement. 02/21: Continue current management and treatment plan. 02/22: continue current management and treatment plan. 02/23 continue tx. may need to affirm HCP try different antipsychotic. 02/24 continue tx. results of LENORE 1:360, pattern homogenous A. 02/25 will try rexulti, lower risperidone. pending coordination of medical care to see if underlying autoimmune condition has anything to do with current presentation. 02/26 discussed with hospital trial attorney to dismiss sect 8, HCP invoked and can consent to other treatment. daughter Maricruz give permission to try different antipsychotic. 02/27 decrease risperidone to 1mg po daily, start prolixin 2.5mg po qhs, then increase to BID. continue olanzapine prn for agitation. olanzapine as well per court order. 03/03 pt seen by neurology, added HIV/RPR/LYME, can't have MRI due to cochlear implant. 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 Last Neurology appointment 01/2024. Missed appointment with rheumatology 05/2024, last seen in 02/26/2024. - Pt can't have MRI due to cochlear implant. Had head CT. - continue prolixin 2.5mg po daily, 5mg po qhs. will d/c risperidone, increase prolixin 5mg po BID, back up IM. 03/05 continue tx. 03/06 This customs entry writer spoke with pt's engineering assistant, Dr. Al obtained collateral information. Will coordinate with neurology and rheumatology once LP results are available. r/o reoccurance of pachymeningitis, lupus or other autoimmune cause for psychosis. 03/07: Continue current regimen and plans. Discontinued one-to-one and put in place 5 minute checks 03/08: Continue current plans and regimen 03/09 continue tx. 03/10: continue current mgmt. continues disorganized and psychotic. see neuro note from today. continue with neuro w/u. 03/11: given zyprexa 5 and valium [address] and head CTA. head CTA WNL, chest CT showed numerous pulmonary nodules up to 10 mm in size. no change in presentation. due to persistent requests for discharge, 3-day notice submitted on her behalf. will work toward HCP affirmation by the court. Reason for continued inpatient stay Substantial Risk for: inability to function Time Spent With Patient Time: Total time managing care of this patient today __35__ minutes.
--- NOTE | 2025-03-11 15:49 | P.CONPL_ITS ---
History of Present Illness History of Present Illness Consult date: 03/11/25 Chief complaint: Abnormal CT chest Narrative: 69-year-old lady with underlying COPD, rheumatoid arthritis, hypertension, admitted to psychiatric service for psychotic symptoms and evaluated by Neurology and hospitalist teams with workup including chest x-ray and CT chest showing multiple pulmonary nodules 10 mm and under, localized mostly to bilateral upper lobes. Patient is not able to provide coherent history and history has been obtained from review of the patient's chart and imaging. Review of Systems 2 Review of Systems: Yes Unobtainable due to mental status Neurologic: Reports confusion Psychiatric: Psychiatric: Reports confusion [facility] Social History Social History Household Members: Unknown / Unable to assess Housing: Unknown / Unable to assess Do you presently have visiting nurse or other home services: No Patient Tobacco Use Status: Former Tobacco user Tobacco use type: Cigarette Smoked in Last 30 Days: No e-Cigarette/Vaping Use: Never Used Patient Interested in Nicotine Replacement: No Patient Given Instructions on How to Stop Smoking: No Second Hand Smoke Exposure: No Currently Displaying Signs/Symptoms of Drug Intoxication Withdrawal: No Spiritual Healthcare Practices: unknown, pt unable to respond due to mental status/psychosis Spiritism Healthcare Practices: unknown, pt unable to respond due to mental status/psychosis Cultural Healthcare Practices: unknown, pt unable to respond due to mental status/psychosis Are you DNR?: No Advance Directives: No Advance Directives Information Provided: No Do you have thoughts of harming others: None Do you have a plan to hurt others: No Plan Recently lost weight without trying: Unsure How much weight loss: Unsure Eating poorly because of decreased appetite: No Nutrition screen score: 4 Nutrition Risks: No Nutritional Risk Patient : No : No Poor oral hygiene: No service: No Sexual orientation: Straight/Heterosexual Meds Allergies Allergy/AdvReac Type Severity Reaction Status Date / Time latex Allergy Unknown Verified 03/09/25 11:50 peanut Allergy Unknown Verified 03/09/25 11:50 Penicillins Allergy Unknown Verified 03/09/25 11:50 Active Medications: Current Medications Acetaminophen (Acetaminophen 325 Mg Tablet) 650 mg PO Q6H PRN PRN Reason: Headache/Pain, Scale 1-10 Last Admin: 03/10/25 08:55 Dose: 650 mg Al Hydroxide/Mg Hydroxide (Magnesium Hydrox/Alum Hydrox 30 Ml Oral.Susp) 30 ml PO Q6H PRN PRN Reason: Heartburn/Nausea Albuterol Sulfate (Albuterol Sulfate 90 Mcg 8 Gm Inhaler) 2 puff INHALE Q4H PRN PRN Reason: Shortness Of Breath Or Wheezing Atorvastatin Calcium (Atorvastatin Calcium 40 Mg Tablet) 40 mg PO DAILY [facility] Last Admin: 03/11/25 08:23 Dose: 40 mg Benztropine Mesylate (Benztropine Mesylate 0.5 Mg Tablet) 0.5 mg PO DAILY [facility] Last Admin: 03/11/25 08:23 Dose: 0.5 mg Benztropine Mesylate (Benztropine Mesylate 1 Mg Tablet) 1 mg PO BEDTIME [facility] Last Admin: 03/10/25 20:34 Dose: 1 mg Clonazepam (Clonazepam Odt 0.5 Mg Tab.Rapdis) 0.5 mg PO BID PRN PRN Reason: severe anxiety/sleep Last Admin: 03/07/25 20:09 Dose: 0.5 mg Fluphenazine HCl (Fluphenazine Hcl 2.5 Mg/Ml 10 Ml Vial) 2.5 mg IM BID PRN PRN Reason: give if refuses oral per HCP Last Admin: 03/05/25 09:42 Dose: 2.5 mg Fluphenazine HCl (Fluphenazine Hcl 2.5 Mg Tablet) 2.5 mg PO DAILY [facility] Last Admin: 03/11/25 08:23 Dose: 2.5 mg Fluphenazine HCl (Fluphenazine Hcl 5 Mg Tablet) 5 mg PO BEDTIME [facility] Last Admin: 03/10/25 20:34 Dose: 5 mg Fluticasone/Vilanterol (Fluticasone/Vilanterol 200/25 Blst.W.Dev) 1 puff INHALE RDAILY [facility] Last Admin: 03/11/25 08:23 Dose: 1 puff Guaifenesin (Guaifenesin 200 Mg/10 Ml 10 Ml Liquid) 10 ml PO Q6H PRN PRN Reason: Cough Hydrochlorothiazide (Hydrochlorothiazide 25 Mg Tablet) 25 mg PO DAILY [facility] Last Admin: 03/11/25 08:26 Dose: 25 mg Levetiracetam (Levetiracetam 250 Mg Tablet) 250 mg PO BID [facility] Last Admin: 03/11/25 08:23 Dose: 250 mg Lorazepam (Lorazepam 1 Mg Tablet) 2 mg PO DAILY PRN PRN Reason: before procedure Last Admin: 03/11/25 09:56 Dose: 2 mg Lorazepam (Lorazepam 1 Mg Tablet) 1 mg PO ONCE PRN PRN Reason: post LP agitation Magnesium Hydroxide (Milk Of Magnesia 30 Ml Oral.Susp) 30 ml PO DAILY PRN PRN Reason: Constipation Methimazole (Methimazole 5 Mg Tablet) 5 mg PO DAILY [facility] Last Admin: 03/11/25 08:22 Dose: 5 mg Naloxone HCl (Naloxone Hcl 0.4 Mg/Ml Vial) 0.04 mg IVPUSH Q5M PRN PRN Reason: Excessive sedation or RR < 8 Nifedipine (Nifedipine Er 30 Mg Tab.Er.24) 30 mg PO DAILY [facility]; Protocol Last Admin: 03/11/25 08:22 Dose: 30 mg Olanzapine (Olanzapine 10 Mg Tablet) 10 mg PO Q6H PRN PRN Reason: severe agitation Last Admin: 03/03/25 20:33 Dose: 10 mg Tiotropium [place] (Tiotropium [place] 2.5 Mcg 1 Puff/2.5 Mcg Mist.Inhal) 1 puff INHALE RDAILY [facility] Last Admin: 03/11/25 08:23 Dose: 1 puff Trazodone HCl (Trazodone Hcl 50 Mg Tablet) 50 mg PO BEDTIME MRX1 PRN PRN Reason: Insomnia Last Admin: 03/07/25 20:09 Dose: 50 mg Home Medications ?Medication ?Instructions ?Recorded ?Confirmed ?Last Taken ?Type albuterol sulfate 90 mcg/actuation 2 puff inhalation Q 4-6H PRN 01/18/25 01/18/25 Unknown History aerosol inhaler Shortness Of Breath Or Wheez ing atorvastatin 40 mg tablet 40 mg PO DAILY 01/18/2512/29 Unknown History chlorthalidone 25 mg tablet 25 mg PO DAILY 01/18/25 Unknown History fluticasone 500 mcg-salmeterol 50 1 inh inhalation ALIVIA LY 01/18/25 01/18/25 Unknown History mcg/dose blistr powdr for inhalation (Edxela Inhub) levetiracetam 500 mg tablet 500 mg PO BID 01/18/25 Unknown History methimazole 5 mg tablet 5 mg PO DAILY 01/18/2501/18 Unknown History nifedipine 30 mg tablet,extended 30 mg PO DAILY 01/18/25 Unknown History release 24 hr terbinafine HCl 250 mg tablet 250 mg PO DAILY 01/18/25 01/18/25 Unknown History umeclidinium 62.5 mcg/actuation 1 inh inhalation DAILY 01/18/25 01/18/25 Unknown History blister powder for inhalation (Incruse Ellipta) Physical Exam 2 Vital Signs: Vital Signs: Last Vital Signs Temp 97.5 F 03/11/25 08:00 Pulse 58 03/11/25 08:00 Resp 14 03/11/25 08:00 BP 100/53 L 03/11/25 08:26 Pulse Ox 97 03/11/25 08:00 O2 Del Method Room Air 03/11/25 08:00 BMI result Body Mass Index 29.5 Const: General: no acute distress, alert, awake and confusion O rientation/consciousness: confusion Eyes: Sclerae: sclerae normal EOM: EOMs intact bilaterally Neck: Neck: Yes no lymphadenopathy, Yes trachea midline and Yes supple Resp: Effort & Inspection: normal respiratory effort and no respiratory distress Auscultation: clear to auscultation bilaterally Cardio: Rate: regular rate Rhythm: regular rhythm Heart sounds: no gallops, no murmurs and no rubs GI: Palpation (GI): Soft to palpation and Other GI palpation findings present ( Nontender) Auscultation: normal bowel sounds Neuro: General: confusion Extrem: General: Yes no pedal edema, No clubbing and No cyanosis Results Laboratory Findings 02/19/25 07:48 03/05/25 07:38 ABG, PT/INR, D-dimer: PT/INR, D-dimer PT 10.5 SEC (10.9-12.4) L 03/09/25 07:27 INR 0.9 (0.9-1.1) 03/09/25 07:27 Abnormal lab findings: Abnormal Labs 01/19/25 01/19/25 01/19/25 12:57 12:57 12:57 WBC RBC Plt Count Eos % (Auto) ESR PT Carbon Dioxide Anion Gap BUN 17 H 17 H Random Glucose 127 H 124 H AST 32 H ALT Vitamin B12 CSF Total Protein Salicylates Rheumatoid Factor Cycl Citrul Peptide IgG LENORE Screen LENORE Titer LENORE Pattern 0601/19/25 02/03/25 12:57 12:57 07:41 WBC RBC Plt Count Eos % (Auto) ESR PT Carbon Dioxide 33 H Anion Gap 10 L BUN 40 H Random Glucose AST 32 H ALT 47 H 47 H 34 H Vitamin B12 948 H CSF Total Protein Salicylates < 5.0 L Rheumatoid Factor Cycl Citrul Peptide IgG LEONRE Screen LENORE Titer LENORE Pattern 02/17/25 02/17/25 02/19/25 17:26 17:27 07:48 WBC 4.2 L RBC 4.11 L Plt Count 151 L Eos % (Auto) 5.0 H ESR 37 H PT Carbon Dioxide 34 H Anion Gap BUN 30 H Random Glucose AST ALT Vitamin B12 CSF Total Protein Salicylates Rheumatoid Factor Cycl Citrul Peptide IgG LENORE Screen POSITIVE A LENORE Titer 1:320 H LENORE Pattern Nuclear, Homogeneous A 03/03/25 03/05/25 03/09/25 11:07 07:38 07:27 WBC RBC Plt Count Eos % (Auto) ESR PT 10.5 L Carbon Dioxide 32 H Anion Gap 10 L BUN 28 H Random Glucose AST ALT Vitamin B12 CSF Total Protein Salicylates Rheumatoid Factor 141.3 H Cycl Citrul Peptide IgG >250 H LENORE Screen LENORE Titer LENORE Pattern 03/09/25 12:40 WBC RBC Plt Count Eos % (Auto) ESR PT Carbon Dioxide Anion Gap BUN Random Glucose AST ALT Vitamin B12 CSF Total Protein 103.2 H Salicylates Rheumatoid Factor Cycl Citrul Peptide IgG LENORE Screen LENORE Titer LENORE Pattern Microbiology: Microbiology 03/09/25 12:40 Cerebrospinal Fluid Gram Stain - Final 03/09/25 12:40 Cerebrospinal Fluid Fluid Description - Final 03/09/25 12:40 Cerebrospinal Fluid CSF Culture - Final No growth after 3 days. Assessment and Plan (1) Rheumatoid arthritis involving hand with positive rheumatoid factor: Status: Acute (2) Abnormal CT scan, chest: Status: Acute Plan Impression: 69-year-old lady with underlying room out with arthritis hospitalized with psychiatric symptoms and noted to have bilateral upper lobe predominant pulmonary nodules [address] chest, also with concern for encephalitis. CT chest imaging reviewed, and is more consistent with rheumatologic/interstitial process, though malignancy can not be completely ruled out. Recommendation: Consider starting patient on prednisone equivalent of 1 milligram/kilogram per day for 30 days. Would consider repeating CT chest in 4- 6 weeks. Procedures Date of Service Date of Service: 03/11/25
[2025-03-11 20:00] VITALS: BP 136/63; PULSE 64; RESP 16; TEMP 36.6; O2SAT 97
[2025-03-11] MEDS: clonazePAM ODT 0.5 MG TAB.RAPDIS PO (20:31)
[2025-03-12 07:00] VITALS: BMI 31.2
[2025-03-12] MEDS: Tiotropium Bromide 2.5 mcg 1 PUFF/2.5 MCG MIST.INHAL INHALE (08:14)
[2025-03-12] MEDS: Fluticasone/Vilanterol 200/25 BLST.W.DEV 1 PUFF INHALE (08:14)
[2025-03-12 08:15] VITALS: BP 139/64; PULSE 52; RESP 16; TEMP 36.1; O2SAT 98
[2025-03-12] MEDS: NIFEdipine ER 30 MG TAB.ER.24 PO (08:17)
[2025-03-12 10:33] LABS: Oligoclonal Serum Yes
--- NOTE | 2025-03-12 15:00 | P.PNPSI_ITS ---
Subjective Subjective Date of Service: 03/12/25 Reason For Visit: Abnormal CT chest Interim History: no change in presentation. per staff, c/o AVH. CT head/chest completed, pulmonary nodules noted. refusing labs. pleasant, cooperative otherwise. slept 8 hours. Mental Status Exam Mental Status Exam Narrative: Appearance: own attire, adequate grooming and hygiene Behavior: calm, cooperative Orientation: alert, confused Memory: impaired Psychomotor Function: no agitation or slowing; no abnormal gestures or movements Speech: loud Mood: fine Affect: labile, agitated Thought Process: questionably organized Thought Content: no overt delusions or paranoia noted Hallucinations: per RN, active engagement in self dialogue Insight: impairment Judgment: impairment Impulsivity: none noted Diagnostics Vital Signs (24Hr): Vital Signs - 24 hr 03/11/25 20:00 03/12/25 08:15 Temperature 97.9 F 97 F Pulse Rate 64 52 Respiratory Rate 16 16 Blood Pressure 136/63 139/64 Pulse Oximetry 97 98 Oxygen Delivery Method Room Air Room Air BMI result Body Mass Index 31.2 Labs 02/19/25 07:48 03/05/25 07:38 Labs: Laboratory Results - last 48 hr 03/03/25 03/09/25 11:07 12:35 Cycl Citrul Peptide IgG >250 H Ref Lab Test Result Cancelled Imaging Radiology Impressions: ITS Impressions Head CT 03/05/25 15:51 IMPRESSION: 1. No acute intracranial abnormality. 2. Right-sided cochlear nerve implant with associated streak artifact. 3. Right-sided canal wall up mastoidectomy. Electronically signed by: Levi Greer MD 03/05/2025 04:25 PM EDT RP Lumbar Puncture Fluoroscopy 03/09/25 11:50 IMPRESSION: Successful fluoroscopy-guided lumbar puncture performed without immediate complications Electronically signed by: Thompson Andujar MD 03/09/2025 04:06 PM EDT RP Chest CT 03/11/25 11:52 IMPRESSION: 1. Multiple bilateral pulmonary nodules measuring up to 10 mm in size. Further evaluation should be based on Fleischner Society guidelines below. 2. Cardiomegaly. Findings consistent with pulmonary arterial hypertension. 3. No evidence of mediastinal or hilar lymphadenopathy. Fleischner Criteria for pulmonary nodule follow-up SOLID NODULES: Low risk patient: <6mm: no follow-up 6-8mm: 6 month follow-up CT >8mm: PET/Biopsy/ 3 month follow-up CT High risk patient: <6mm: 12 month follow-up CT 6-8mm: 6 month follow-up CT >8mm: PET/Biopsy/ 3 month follow-up CT SUB-SOLID/GROUNDGLASS NODULES: All patients: > or = 6mm: 6 month follow-up CT *Please note that in patients in the following categories, the Fleischner criteria do not apply: Immunocompromised, lung cancer screening population, age below 35, and patients with known malignancy Electronically signed by: Best Clemons MD 03/11/2025 01:45 PM EDT RP Head CTA 03/11/25 11:52 IMPRESSION: Head CT: No acute intracranial abnormality. CT angiogram of the head: No vascular occlusions. Electronically signed by: Gypsy Salamanca MD 03/11/2025 03:02 PM EDT RP Medications Medications Current Medications Acetaminophen (Acetaminophen 325 Mg Tablet) 650 mg PO Q6H PRN PRN Reason: Headache/Pain, Scale 1-10 Last Admin: 03/10/25 08:55 Dose: 650 mg Al Hydroxide/Mg Hydroxide (Magnesium Hydrox/Alum Hydrox 30 Ml Oral.Susp) 30 ml PO Q6H PRN PRN Reason: Heartburn/Nausea Albuterol Sulfate (Albuterol Sulfate 90 Mcg 8 Gm Inhaler) 2 puff INHALE Q4H PRN PRN Reason: Shortness Of Breath Or Wheezing Atorvastatin Calcium (Atorvastatin Calcium 40 Mg Tablet) 40 mg PO DAILY [facility] Last Admin: 03/12/25 08:14 Dose: 40 mg Benztropine Mesylate (Benztropine Mesylate 0.5 Mg Tablet) 0.5 mg PO DAILY ALLY Last Admin: 03/12/25 08:15 Dose: 0.5 mg Benztropine Mesylate (Benztropine Mesylate 1 Mg Tablet) 1 mg PO BEDTIME ALLY Last Admin: 03/11/25 20:31 Dose: 1 mg Clonazepam (Clonazepam Odt 0.5 Mg Tab.Rapdis) 0.5 mg PO BID PRN PRN Reason: severe anxiety/sleep Last Admin: 03/11/25 20:31 Dose: 0.5 mg Fluphenazine HCl (Fluphenazine Hcl 2.5 Mg/Ml 10 Ml Vial) 2.5 mg IM BID PRN PRN Reason: give if refuses oral per HCP Last Admin: 03/05/25 09:42 Dose: 2.5 mg Fluphenazine HCl (Fluphenazine Hcl 2.5 Mg Tablet) 2.5 mg PO DAILY [facility] Last Admin: 03/12/25 08:14 Dose: 2.5 mg Fluphenazine HCl (Fluphenazine Hcl 5 Mg Tablet) 5 mg PO BEDTIME [facility] Last Admin: 03/11/25 20:31 Dose: 5 mg Fluticasone/Vilanterol (Fluticasone/Vilanterol 200/25 Blst.W.Dev) 1 puff INHALE RDAILY [facility] Last Admin: 03/12/25 08:14 Dose: 1 puff Guaifenesin (Guaifenesin 200 Mg/10 Ml 10 Ml Liquid) 10 ml PO Q6H PRN PRN Reason: Cough Hydrochlorothiazide (Hydrochlorothiazide 25 Mg Tablet) 25 mg PO DAILY [facility] Last Admin: 03/12/25 08:16 Dose: 25 mg Levetiracetam (Levetiracetam 250 Mg Tablet) 250 mg PO BID [facility] Last Admin: 03/12/25 08:14 Dose: 250 mg Lorazepam (Lorazepam 1 Mg Tablet) 2 mg PO DAILY PRN PRN Reason: before procedure Last Admin: 03/11/25 09:56 Dose: 2 mg Lorazepam (Lorazepam 1 Mg Tablet) 1 mg PO ONCE PRN PRN Reason: post LP agitation Magnesium Hydroxide (Milk Of Magnesia 30 Ml Oral.Susp) 30 ml PO DAILY PRN PRN Reason: Constipation Methimazole (Methimazole 5 Mg Tablet) 5 mg PO DAILY [facility] Last Admin: 03/12/25 08:15 Dose: 5 mg Naloxone HCl (Naloxone Hcl 0.4 Mg/Ml Vial) 0.04 mg IVPUSH Q5M PRN PRN Reason: Excessive sedation or RR < 8 Nifedipine (Nifedipine Er 30 Mg Tab.Er.24) 30 mg PO DAILY [facility]; Protocol Last Admin: 03/12/25 08:17 Dose: 30 mg Olanzapine (Olanzapine 10 Mg Tablet) 10 mg PO Q6H PRN PRN Reason: severe agitation Last Admin: 03/03/25 20:33 Dose: 10 mg Tiotropium [place] (Tiotropium [place] 2.5 Mcg 1 Puff/2.5 Mcg Mist.Inhal) 1 puff INHALE RDAILY ALLY Last Admin: 03/12/25 08:14 Dose: 1 puff Trazodone HCl (Trazodone Hcl 50 Mg Tablet) 50 mg PO BEDTIME MRX1 PRN PRN Reason: Insomnia Last Admin: 03/11/25 20:31 Dose: 50 mg Allergies Allergies Allergy/AdvReac Type Severity Reaction Status Date / Time latex Allergy Unknown Verified 03/09/25 11:50 peanut Allergy Unknown Verified 03/09/25 11:50 Penicillins Allergy Unknown Verified 03/09/25 11:50 Assessment & Plan Assessment & Plan (1) 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 CT chest imaging reviewed, and is more consistent with rheumatologic/interstitial process, though malignancy can not be completely ruled out. Recommendation: Consider starting patient on prednisone equivalent of 1 milligram/kilogram per day for 30 days. Would consider repeating CT chest in 4- 6 weeks. 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 With no obvious bacterial infection or viral infection, differential diagnosis would include vasculitis, autoimmune encephalitis, sarcoidosis, or atypical organism. Lupus was a possibility but patchy meningitis usually is not a feature of lupus cerebritis. Test for HIV, syphilis, and Lyme were negative. I would add test for babesiosis, and CTA of brain to rule out any signs of vasculitis type pattern. If no other or specific diagnosis is found, I would consider treatment with prednisone or steroid. Plan Mrs. Sharif is a 69 year-old woman who presents with a 3 month hx of new onset of psychosis (AH) and combination of paranoid delusions and cap gras delusions. No prior psychiatric hx. She does have of cocaine use but apparently had not used in some years. Daughter suspects she may have relapsed but no ongoing use. Pt presents with more complex theme of delusions. No additional medical work up available including head CT. CBC and cmp unremarkable. 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 It may be related to dementia process but complexity of delusions and psychosis not the common presentation for dementia that have psychosis early on such as in vascular dementia or LBD. Pt presents as gravely disable to able to care for self due to symptoms of psychosis and delusions. 02/03 increase night time risperidone 2mg po qhs increase cogetin at bedtime to 1mg po qhs. lower daily dose to 0.5mg po daily. continue cogentin 0.5mg po daily. clonazepam as prn olanzapine as prn for agitation 02/04 continue tx. 02/05 continue tx. 02/06 continue current dose of risperidone. NOTE THAT pt can't take doses higher than 3 mg/day of risperidone as higher doses had severe EPS. can use olanzapine as well per court order. 02/07/25: Patient has been agitated yelling loudly exist seeking, delusional thinking her daughter/son outside at the door to pick her up. PRNs given in the morning with mild effect. Patient became agitated, aggressive\, assaultive to 1 of the staff on the floor, yelling and hitting her face so grabbing her neck. Physical was started at 16:31 to 1634. Patient was given IM medication of Zyprexa 10 and Valium 10 with good effect. Tomorrow plan: Patient will be benefit from Valium 10 mg twice a day and Zyprexa 5 mg 3 times a day is added into her scheduled medication as current plan with risperidone is not effective. Patient also having a backup for risperidone if she refused. 02/08/25: Slept most of the morning and last night. In better behavior control. No aggressive behavior. She is quiet, self dialogue, and medication compliant. Due to receive restrain medication yesterday. I did not make any medication change. But the Valium and additional Zyprexa appears to be helpful. 02/09 will try to change keppra to depakote for seizures as keppra may exacerbate psychosis. increase risperidone 1mg po daily and 2mg po qhs. may need to add second antipsychotic. 02/10 continues to present as paranoid with AH. at times declines oral medications, requiring IM back per court order. 02/11 continue tx. 02/12 continue tx. 02/13 continue tx. 02/14: no changes today. Monitor for agitation around confusion about hospitalization 02/15: no changes today, self dialogue more overt/extensive today 02/16 add olanzapine 5mg po qhs. continue risperidone. minimal improvement if any. 02/17 continue tx. 02/18 seems more somnolent with bedtime olanzapine, will continue to monitor. 02/19 cbc showed thrombocytopenia, which is new and suspect related to depakote 02/20 pt appears more sedated since addition of olanzapine at bedtime. She continues to self dialogue. minimal improvement. 02/21: Continue current management and treatment plan. 02/22: continue current management and treatment plan. 02/23 continue tx. may need to affirm HCP try different antipsychotic. 02/24 continue tx. results of LENORE 1:360, pattern homogenous A. 02/25 will try rexulti, lower risperidone. pending coordination of medical care to see if underlying autoimmune condition has anything to do with current presentation. 02/26 discussed with hospital civil rights attorney to dismiss sect 8, HCP invoked and can consent to other treatment. daughter Maricruz give permission to try different antipsychotic. 02/27 decrease risperidone to 1mg po daily, start prolixin 2.5mg po qhs, then increase to BID. continue olanzapine prn for agitation. olanzapine as well per court order. 03/03 pt seen by neurology, added HIV/RPR/LYME, can't have MRI due to cochlear implant. 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 Last Neurology appointment 01/2024. Missed appointment with rheumatology 05/2024, last seen in 02/26/2024. - Pt can't have MRI due to cochlear implant. Had head CT. - continue prolixin 2.5mg po daily, 5mg po qhs. will d/c risperidone, increase prolixin 5mg po BID, back up IM. 03/05 continue tx. 03/06 This typewriter tester spoke with pt's foot press operator, Dr. Al obtained collateral information. Will coordinate with neurology and rheumatology once LP results are available. r/o reoccurance of pachymeningitis, lupus or other autoimmune cause for psychosis. 03/07: Continue current regimen and plans. Discontinued one-to-one and put in place 5 minute checks 03/08: Continue current plans and regimen 03/09 continue tx. 03/10: continue current mgmt. continues disorganized and psychotic. see neuro note from today. continue with neuro w/u. 03/11: given zyprexa 5 and valium [address] and head CTA. head CTA WNL, chest CT showed numerous pulmonary nodules up to 10 mm in size. no change in presentation. due to persistent requests for discharge, 3-day notice submitted on her behalf. will work toward HCP affirmation by the court. 03/12: per pulm consult, chest CT more c/w rheumatological process than CA, recommended empiric steroid course. awaiting input from neuro. consider Bx of nodules otherwise. continue current mgmt for now. Reason for continued inpatient stay Substantial Risk for: inability to function Time Spent With Patient Time: Total time managing care of this patient today __35__ minutes.
[2025-03-12] MEDS: clonazePAM ODT 0.5 MG TAB.RAPDIS PO (17:18)
[2025-03-12 19:48] VITALS: BP 120/57; PULSE 66; RESP 20; TEMP 36.8; O2SAT 97
[2025-03-13 08:00] VITALS: BP 125/60; PULSE 53; RESP 14; TEMP 36; O2SAT 97
[2025-03-13 08:16] VITALS: BP 125/60
[2025-03-13] MEDS: NIFEdipine ER 30 MG TAB.ER.24 PO (08:16)
[2025-03-13] MEDS: Tiotropium Bromide 2.5 mcg 1 PUFF/2.5 MCG MIST.INHAL INHALE (08:17)
[2025-03-13] MEDS: Fluticasone/Vilanterol 200/25 BLST.W.DEV 1 PUFF INHALE (08:17)
--- NOTE | 2025-03-13 14:00 | HO.PSYCHPN ---
Subjective Subjective Date of Service: 03/13/25 Reason For Visit: Abnormal CT chest Interim History: sleeping in her bed, not rousable to voice. per staff, oriented to self only. delusional, talking into her hand is if it were a phone and conversing with family that way. taking meds. agitated eves, got PRNs. slept 7 hours. Mental Status Exam Mental Status Exam Narrative: sleeping soundly in the right lateral decubitus position in her bed Diagnostics Vital Signs (24Hr): Vital Signs - 24 hr 03/12/25 19:48 03/13/25 08:00 03/13/25 08:16 Temperature 98.2 F 96.8 F Pulse Rate 66 53 Respiratory Rate 20 14 Blood Pressure 120/57 L 125/60 125/60 Pulse Oximetry 97 97 Oxygen Delivery Method Room Air Room Air BMI result Body Mass Index 31.2 Labs 02/19/25 07:48 03/05/25 07:38 Labs: Laboratory Results - last 48 hr 03/09/25 07:27 Angiotensin Convert Enz 50.2 Anti-Cardiolipin IgG Ab <2.0 Anti-Cardiolipin IgM Ab <2.0 Imaging Radiology Impressions: ITS Impressions Head CT 03/05/25 15:51 IMPRESSION: 1. No acute intracranial abnormality. 2. Right-sided cochlear nerve implant with associated streak artifact. 3. Right-sided canal wall up mastoidectomy. Electronically signed by: Levi Greer MD 03/05/2025 04:25 PM EDT Lumbar Puncture Fluoroscopy 03/09/25 11:50 IMPRESSION: Successful fluoroscopy-guided lumbar puncture performed without immediate complications Electronically signed by: Thompson Andujar MD 03/09/2025 04:06 PM EDT RP Chest CT 03/11/25 11:52 IMPRESSION: 1. Multiple bilateral pulmonary nodules measuring up to 10 mm in size. Further evaluation should be based on Fleischner Society guidelines below. 2. Cardiomegaly. Findings consistent with pulmonary arterial hypertension. 3. No evidence of mediastinal or hilar lymphadenopathy. Fleischner Criteria for pulmonary nodule follow-up SOLID NODULES: Low risk patient: <6mm: no follow-up 6-8mm: 6 month follow-up CT >8mm: PET/Biopsy/ 3 month follow-up CT High risk patient: <6mm: 12 month follow-up CT 6-8mm: 6 month follow-up CT >8mm: PET/Biopsy/ 3 month follow-up CT SUB-SOLID/GROUNDGLASS NODULES: All patients: > or = 6mm: 6 month follow-up CT *Please note that in patients in the following categories, the Fleischner criteria do not apply: Immunocompromised, lung cancer screening population, age below 35, and patients with known malignancy Electronically signed by: Best Clemons MD 03/11/2025 01:45 PM EDT RP Head CTA 03/11/25 11:52 IMPRESSION: Head CT: No acute intracranial abnormality. CT angiogram of the head: No vascular occlusions. Electronically signed by: Gypsy Salamanca MD 03/11/2025 03:02 PM EDT RP Medications Medications Current Medications Acetaminophen (Acetaminophen 325 Mg Tablet) 650 mg PO Q6H PRN PRN Reason: Headache/Pain, Scale 1-10 Last Admin: 03/10/25 08:55 Dose: 650 mg Al Hydroxide/Mg Hydroxide (Magnesium Hydrox/Alum Hydrox 30 Ml Oral.Susp) 30 ml PO Q6H PRN PRN Reason: Heartburn/Nausea Albuterol Sulfate (Albuterol Sulfate 90 Mcg 8 Gm Inhaler) 2 puff INHALE Q4H PRN PRN Reason: Shortness Of Breath Or Wheezing Atorvastatin Calcium (Atorvastatin Calcium 40 Mg Tablet) 40 mg PO DAILY COUNTS INCLUDE 234 BEDS AT THE [facility] Last Admin: 03/13/25 08:16 Dose: 40 mg Benztropine Mesylate (Benztropine Mesylate 0.5 Mg Tablet) 0.5 mg PO DAILY ALLY Last Admin: 03/13/25 08:16 Dose: 0.5 mg Benztropine Mesylate (Benztropine Mesylate 1 Mg Tablet) 1 mg PO BEDTIME ALLY Last Admin: 03/12/25 19:49 Dose: 1 mg Clonazepam (Clonazepam Odt 0.5 Mg Tab.Rapdis) 0.5 mg PO BID PRN PRN Reason: severe anxiety/sleep Last Admin: 03/12/25 17:18 Dose: 0.5 mg Fluphenazine HCl (Fluphenazine Hcl 2.5 Mg/Ml 10 Ml Vial) 2.5 mg IM BID PRN PRN Reason: give if refuses oral per HCP Last Admin: 03/05/25 09:42 Dose: 2.5 mg Fluphenazine HCl (Fluphenazine Hcl 2.5 Mg Tablet) 2.5 mg PO DAILY COUNTS INCLUDE 234 BEDS AT THE [facility] Last Admin: 03/13/25 08:16 Dose: 2.5 mg Fluphenazine HCl (Fluphenazine Hcl 5 Mg Tablet) 5 mg PO BEDTIME COUNTS INCLUDE 234 BEDS AT THE [facility] Last Admin: 03/12/25 19:50 Dose: 5 mg Fluticasone/Vilanterol (Fluticasone/Vilanterol 200/25 Blst.W.Dev) 1 puff INHALE RDAILY COUNTS INCLUDE 234 BEDS AT THE [facility] Last Admin: 03/13/25 08:17 Dose: 1 puff Guaifenesin (Guaifenesin 200 Mg/10 Ml 10 Ml Liquid) 10 ml PO Q6H PRN PRN Reason: Cough Hydrochlorothiazide (Hydrochlorothiazide 25 Mg Tablet) 25 mg PO DAILY COUNTS INCLUDE 234 BEDS AT THE [facility] Last Admin: 03/13/25 08:22 Dose: Not Given Levetiracetam (Levetiracetam 250 Mg Tablet) 250 mg PO BID COUNTS INCLUDE 234 BEDS AT THE [facility] Last Admin: 03/13/25 08:16 Dose: 250 mg Lorazepam (Lorazepam 1 Mg Tablet) 2 mg PO DAILY PRN PRN Reason: before procedure Last Admin: 03/11/25 09:56 Dose: 2 mg Lorazepam (Lorazepam 1 Mg Tablet) 1 mg PO ONCE PRN PRN Reason: post LP agitation Magnesium Hydroxide (Milk Of Magnesia 30 Ml Oral.Susp) 30 ml PO DAILY PRN PRN Reason: Constipation Methimazole (Methimazole 5 Mg Tablet) 5 mg PO DAILY COUNTS INCLUDE 234 BEDS AT THE [facility] Last Admin: 03/13/25 08:16 Dose: 5 mg Naloxone HCl (Naloxone Hcl 0.4 Mg/Ml Vial) 0.04 mg IVPUSH Q5M PRN PRN Reason: Excessive sedation or RR < 8 Nifedipine (Nifedipine Er 30 Mg Tab.Er.24) 30 mg PO DAILY COUNTS INCLUDE 234 BEDS AT THE [facility]; Protocol Last Admin: 03/13/25 08:16 Dose: 30 mg Olanzapine (Olanzapine 10 Mg Tablet) 10 mg PO Q6H PRN PRN Reason: severe agitation Last Admin: 03/12/25 17:18 Dose: 10 mg Tiotropium [place] (Tiotropium [place] 2.5 Mcg 1 Puff/2.5 Mcg Mist.Inhal) 1 puff INHALE RDAILY COUNTS INCLUDE 234 BEDS AT THE [facility] Last Admin: 03/13/25 08:17 Dose: 1 puff Trazodone HCl (Trazodone Hcl 50 Mg Tablet) 50 mg PO BEDTIME MRX1 PRN PRN Reason: Insomnia Last Admin: 03/12/25 19:50 Dose: 50 mg Allergies Allergies Allergy/AdvReac Type Severity Reaction Status Date / Time latex Allergy Unknown Verified 03/09/25 11:50 peanut Allergy Unknown Verified 03/09/25 11:50 Penicillins Allergy Unknown Verified 03/09/25 11:50 Assessment & Plan Assessment & Plan (1) 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 CT chest imaging reviewed, and is more consistent with rheumatologic/interstitial process, though malignancy can not be completely ruled out. Recommendation: Consider starting patient on prednisone equivalent of 1 milligram/kilogram per day for 30 days. Would consider repeating CT chest in 4-6 weeks. 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 With no obvious bacterial infection or viral infection, differential diagnosis would include vasculitis, autoimmune encephalitis, sarcoidosis, or atypical organism. Lupus was a possibility but patchy meningitis usually is not a feature of lupus cerebritis. Test for HIV, syphilis, and Lyme were negative. I would add test for babesiosis, and CTA of brain to rule out any signs of vasculitis type pattern. If no other or specific diagnosis is found, I would consider treatment with prednisone or steroid. Plan Mrs. Sharif is a 69 year-old woman who presents with a 3 month hx of new onset of psychosis (AH) and combination of paranoid delusions and cap gras delusions. No prior psychiatric hx. She does have of cocaine use but apparently had not used in some years. Daughter suspects she may have relapsed but no ongoing use. Pt presents with more complex theme of delusions. No additional medical work up available including head CT. CBC and cmp unremarkable. 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 It may be related to dementia process but complexity of delusions and psychosis not the common presentation for dementia that have psychosis early on such as in vascular dementia or LBD. Pt presents as gravely disable to able to care for self due to symptoms of psychosis and delusions. 02/03 increase night time risperidone 2mg po qhs increase cogetin at bedtime to 1mg po qhs. lower daily dose to 0.5mg po daily. continue cogentin 0.5mg po daily. clonazepam as prn olanzapine as prn for agitation 02/04 continue tx. 02/05 continue tx. 02/06 continue current dose of risperidone. NOTE THAT pt can't take doses higher than 3 mg/day of risperidone as higher doses had severe EPS. can use olanzapine as well per court order. 02/07/25: Patient has been agitated yelling loudly exist seeking, delusional thinking her daughter/son outside at the door to pick her up. PRNs given in the morning with mild effect. Patient became agitated, aggressive\, assaultive to 1 of the staff on the floor, yelling and hitting her face so grabbing her neck. Physical was started at 16:31 to 1634. Patient was given IM medication of Zyprexa 10 and Valium 10 with good effect. Tomorrow plan: Patient will be benefit from Valium 10 mg twice a day and Zyprexa 5 mg 3 times a day is added into her scheduled medication as current plan with risperidone is not effective. Patient also having a backup for risperidone if she refused. 02/08/25: Slept most of the morning and last night. In better behavior control. No aggressive behavior. She is quiet, self dialogue, and medication compliant. Due to receive restrain medication yesterday. I did not make any medication change. But the Valium and additional Zyprexa appears to be helpful. 02/09 will try to change keppra to depakote for seizures as keppra may exacerbate psychosis. increase risperidone 1mg po daily and 2mg po qhs. may need to add second antipsychotic. 02/10 continues to present as paranoid with AH. at times declines oral medications, requiring IM back per court order. 02/11 continue tx. 02/12 continue tx. 02/13 continue tx. 02/14: no changes today. Monitor for agitation around confusion about hospitalization 02/15: no changes today, self dialogue more overt/extensive today 02/16 add olanzapine 5mg po qhs. continue risperidone. minimal improvement if any. 02/17 continue tx. 02/18 seems more somnolent with bedtime olanzapine, will continue to monitor. 02/19 cbc showed thrombocytopenia, which is new and suspect related to depakote 02/20 pt appears more sedated since addition of olanzapine at bedtime. She continues to self dialogue. minimal improvement. 02/21: Continue current management and treatment plan. 02/22: continue current management and treatment plan. 02/23 continue tx. may need to affirm HCP try different antipsychotic. 02/24 continue tx. results of LENORE 1:360, pattern homogenous A. 02/25 will try rexulti, lower risperidone. pending coordination of medical care to see if underlying autoimmune condition has anything to do with current presentation. 02/26 discussed with hospital hospital fellow to dismiss sect 8, HCP invoked and can consent to other treatment. daughter Maricruz give permission to try different antipsychotic. 02/27 decrease risperidone to 1mg po daily, start prolixin 2.5mg po qhs, then increase to BID. continue olanzapine prn for agitation. olanzapine as well per court order. 03/03 pt seen by neurology, added HIV/RPR/LYME, can't have MRI due to cochlear implant. 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 Last Neurology appointment 01/2024. Missed appointment with rheumatology 05/2024, last seen in 02/26/2024. - Pt can't have MRI due to cochlear implant. Had head CT. - continue prolixin 2.5mg po daily, 5mg po qhs. will d/c risperidone, increase prolixin 5mg po BID, back up IM. 03/05 continue tx. 03/06 This development writer spoke with pt's switchboard and control room operator, Dr. Al obtained collateral information. Will coordinate with neurology and rheumatology once LP results are available. r/o reoccurance of pachymeningitis, lupus or other autoimmune cause for psychosis. 03/07: Continue current regimen and plans. Discontinued one-to-one and put in place 5 minute checks 03/08: Continue current plans and regimen 03/09 continue tx. 03/10: continue current mgmt. continues disorganized and psychotic. see neuro note from today. continue with neuro w/u. 03/11: given zyprexa 5 and valium [address] and head CTA. head CTA WNL, chest CT showed numerous pulmonary nodules up to 10 mm in size. no change in presentation. due to persistent requests for discharge, 3-day notice submitted on her behalf. will work toward HCP affirmation by the court. 03/12: per pulm consult, chest CT more c/w rheumatological process than CA, recommended empiric steroid course. awaiting input from neuro. consider Bx of nodules otherwise. continue current mgmt for now. 03/13: variably calm and agitated. planning for bronchoscopy with pulmonary nodule Bx on sunday. continue current mgmt. case discussed with HCP Maricruz (daughter), who is in agreement with plan. Reason for continued inpatient stay Substantial Risk for: inability to function Time Spent With Patient Time: Total time managing care of this patient today __35__ minutes.
[2025-03-13 20:00] VITALS: BP 110/55; PULSE 61; RESP 16; TEMP 36; O2SAT 97
[2025-03-13 23:23] LABS: Albumin 4.0 g/dL (3.6-5.1); Albumin, CSF 48.0 mg/dL (8.0-42.0); IgG, CSF 10.0 mg/dL (0.8-7.7)
[2025-03-14 08:03] VITALS: BP 118/56; PULSE 57; RESP 20; TEMP 36.3; O2SAT 96
[2025-03-14] MEDS: Fluticasone/Vilanterol 200/25 BLST.W.DEV 1 PUFF INHALE (08:06)
[2025-03-14] MEDS: NIFEdipine ER 30 MG TAB.ER.24 PO (08:07)
[2025-03-14] MEDS: Tiotropium Bromide 2.5 mcg 1 PUFF/2.5 MCG MIST.INHAL INHALE (08:27)
--- NOTE | 2025-03-14 09:36 | P.PNPSI_ITS ---
Subjective Subjective Date of Service: 03/14/25 Reason For Visit: Abnormal CT chest Interim History: seated in milieu talking into her hand; content suggests she believes she is having a conversation with family members. states she plans to reschedule her surgery appointment for [facility]. otherwise states she is good. per staff, refused prolixin last night, otherwise med compliant. slep unclear. Mental Status Exam Mental Status Exam Narrative: Appearance: own attire, adequate grooming and hygiene Behavior: calm, cooperative Orientation: alert, confused Memory: impaired Psychomotor Function: no agitation or slowing; no abnormal gestures or movements Speech: loud Mood: good Affect: calm, normo-intense, non-labile Thought Process: questionably organized Thought Content: appears to believe talking to family via talking into her hand Hallucinations: per RN, active engagement in self dialogue Insight: impairment Judgment: impairment Impulsivity: none noted Diagnostics Vital Signs (24Hr): Vital Signs - 24 hr 03/13/25 20:00 03/14/25 08:03 Temperature 96.8 F 97.4 F Pulse Rate 61 57 Respiratory Rate 16 20 Blood Pressure 110/55 L 118/56 L Pulse Oximetry 97 96 Oxygen Delivery Method Room Air Room Air BMI result Body Mass Index 31.2 Labs 02/19/25 07:48 03/05/25 07:38 Labs: Laboratory Results - last 48 hr 03/09/25 03/09/25 07:27 12:35 Albumin (Send Out) 4.0 Angiotensin Convert Enz 50.2 CSF Albumin 48.0 H CSF IgG Index 0.47 CSF IgG Synthesis Rate -3.4 CSF/Serum IgG Index 10.0 H IgG Index 1780 H Anti-Cardiolipin IgG Ab <2.0 Anti-Cardiolipin IgM Ab <2.0 Imaging Radiology Impressions: ITS Impressions Head CT 03/05/25 15:51 IMPRESSION: 1. No acute intracranial abnormality. 2. Right-sided cochlear nerve implant with associated streak artifact. 3. Right-sided canal wall up mastoidectomy. Electronically signed by: Levi Greer MD 03/05/2025 04:25 PM EDT Lumbar Puncture Fluoroscopy 03/09/25 11:50 IMPRESSION: Successful fluoroscopy-guided lumbar puncture performed without immediate complications Electronically signed by: Thompson Andujar MD 03/09/2025 04:06 PM EDT RP Chest CT 03/11/25 11:52 IMPRESSION: 1. Multiple bilateral pulmonary nodules measuring up to 10 mm in size. Further evaluation should be based on Fleischner Society guidelines below. 2. Cardiomegaly. Findings consistent with pulmonary arterial hypertension. 3. No evidence of mediastinal or hilar lymphadenopathy. Fleischner Criteria for pulmonary nodule follow-up SOLID NODULES: Low risk patient: <6mm: no follow-up 6-8mm: 6 month follow-up CT >8mm: PET/Biopsy/ 3 month follow-up CT High risk patient: <6mm: 12 month follow-up CT 6-8mm: 6 month follow-up CT >8mm: PET/Biopsy/ 3 month follow-up CT SUB-SOLID/GROUNDGLASS NODULES: All patients: > or = 6mm: 6 month follow-up CT *Please note that in patients in the following categories, the Fleischner criteria do not apply: Immunocompromised, lung cancer screening population, age below 35, and patients with known malignancy Electronically signed by: Best Clemons MD 03/11/2025 01:45 PM EDT RP Head CTA 03/11/25 11:52 IMPRESSION: Head CT: No acute intracranial abnormality. CT angiogram of the head: No vascular occlusions. Electronically signed by: Gypsy Salamanca MD 03/11/2025 03:02 PM EDT Medications Medications Current Medications Acetaminophen (Acetaminophen 325 Mg Tablet) 650 mg PO Q6H PRN PRN Reason: Headache/Pain, Scale 1-10 Last Admin: 03/10/25 08:55 Dose: 650 mg Al Hydroxide/Mg Hydroxide (Magnesium Hydrox/Alum Hydrox 30 Ml Oral.Susp) 30 ml PO Q6H PRN PRN Reason: Heartburn/Nausea Albuterol Sulfate (Albuterol Sulfate 90 Mcg 8 Gm Inhaler) 2 puff INHALE Q4H PRN PRN Reason: Shortness Of Breath Or Wheezing Atorvastatin Calcium (Atorvastatin Calcium 40 Mg Tablet) 40 mg PO DAILY PENDING SALE TO [facility] Last Admin: 03/14/25 08:08 Dose: 40 mg Benztropine Mesylate (Benztropine Mesylate 0.5 Mg Tablet) 0.5 mg PO DAILY PENDING SALE TO [facility] Last Admin: 03/14/25 08:08 Dose: 0.5 mg Benztropine Mesylate (Benztropine Mesylate 1 Mg Tablet) 1 mg PO BEDTIME PENDING SALE TO [facility] Last Admin: 03/13/25 21:18 Dose: 1 mg Clonazepam (Clonazepam Odt 0.5 Mg Tab.Rapdis) 0.5 mg PO BID PRN PRN Reason: severe anxiety/sleep Last Admin: 03/12/25 17:18 Dose: 0.5 mg Fluphenazine HCl (Fluphenazine Hcl 2.5 Mg/Ml 10 Ml Vial) 2.5 mg IM BID PRN PRN Reason: give if refuses oral per HCP Last Admin: 03/05/25 09:42 Dose: 2.5 mg Fluphenazine HCl (Fluphenazine Hcl 2.5 Mg Tablet) 2.5 mg PO DAILY PENDING SALE TO [facility] Last Admin: 03/14/25 08:07 Dose: 2.5 mg Fluphenazine HCl (Fluphenazine Hcl 5 Mg Tablet) 5 mg PO BEDTIME PENDING SALE TO [facility] Last Admin: 03/13/25 21:20 Dose: 5 mg Fluticasone/Vilanterol (Fluticasone/Vilanterol 200/25 Blst.W.Dev) 1 puff INHALE RDAILY PENDING SALE TO [facility] Last Admin: 03/14/25 08:06 Dose: 1 puff Guaifenesin (Guaifenesin 200 Mg/10 Ml 10 Ml Liquid) 10 ml PO Q6H PRN PRN Reason: Cough Hydrochlorothiazide (Hydrochlorothiazide 25 Mg Tablet) 25 mg PO DAILY PENDING SALE TO [facility] Last Admin: 03/14/25 08:08 Dose: 25 mg Levetiracetam (Levetiracetam 250 Mg Tablet) 250 mg PO BID PENDING SALE TO [facility] Last Admin: 03/14/25 08:07 Dose: 250 mg Lorazepam (Lorazepam 1 Mg Tablet) 2 mg PO DAILY PRN PRN Reason: before procedure Last Admin: 03/11/25 09:56 Dose: 2 mg Lorazepam (Lorazepam 1 Mg Tablet) 1 mg PO ONCE PRN PRN Reason: post LP agitation Magnesium Hydroxide (Milk Of Magnesia 30 Ml Oral.Susp) 30 ml PO DAILY PRN PRN Reason: Constipation Methimazole (Methimazole 5 Mg Tablet) 5 mg PO DAILY PENDING SALE TO [facility] Last Admin: 03/14/25 08:08 Dose: 5 mg Naloxone HCl (Naloxone Hcl 0.4 Mg/Ml Vial) 0.04 mg IVPUSH Q5M PRN PRN Reason: Excessive sedation or RR < 8 Nifedipine (Nifedipine Er 30 Mg Tab.Er.24) 30 mg PO DAILY ALLY; Protocol Last Admin: 03/14/25 08:07 Dose: 30 mg Olanzapine (Olanzapine 10 Mg Tablet) 10 mg PO Q6H PRN PRN Reason: severe agitation Last Admin: 03/12/25 17:18 Dose: 10 mg Tiotropium [place] (Tiotropium [place] 2.5 Mcg 1 Puff/2.5 Mcg Mist.Inhal) 1 puff INHALE RDAILY PENDING SALE TO [facility] Last Admin: 03/14/25 08:27 Dose: 1 puff Trazodone HCl (Trazodone Hcl 50 Mg Tablet) 50 mg PO BEDTIME MRX1 PRN PRN Reason: Insomnia Last Admin: 03/12/25 19:50 Dose: 50 mg Allergies Allergies Allergy/AdvReac Type Severity Reaction Status Date / Time latex Allergy Unknown Verified 03/09/25 11:50 peanut Allergy Unknown Verified 03/09/25 11:50 Penicillins Allergy Unknown Verified 03/09/25 11:50 Assessment & Plan Assessment & Plan (1) 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 CT chest imaging reviewed, and is more consistent with rheumatologic/interstitial process, though malignancy can not be completely ruled out. Recommendation: Consider starting patient on prednisone equivalent of 1 milligram/kilogram per day for 30 days. Would consider repeating CT chest in 4- 6 weeks. 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 With no obvious bacterial infection or viral infection, differential diagnosis would include vasculitis, autoimmune encephalitis, sarcoidosis, or atypical organism. Lupus was a possibility but patchy meningitis usually is not a feature of lupus cerebritis. Test for HIV, syphilis, and Lyme were negative. I would add test for babesiosis, and CTA of brain to rule out any signs of vasculitis type pattern. If no other or specific diagnosis is found, I would consider treatment with prednisone or steroid. Plan Mrs. Sharif is a 69 year-old woman who presents with a 3 month hx of new onset of psychosis (AH) and combination of paranoid delusions and cap gras delusions. No prior psychiatric hx. She does have of cocaine use but apparently had not used in some years. Daughter suspects she may have relapsed but no ongoing use. Pt presents with more complex theme of delusions. No additional medical work up available including head CT. CBC and cmp unremarkable. 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 It may be related to dementia process but complexity of delusions and psychosis not the common presentation for dementia that have psychosis early on such as in vascular dementia or LBD. Pt presents as gravely disable to able to care for self due to symptoms of psychosis and delusions. 02/03 increase night time risperidone 2mg po qhs increase cogetin at bedtime to 1mg po qhs. lower daily dose to 0.5mg po daily. continue cogentin 0.5mg po daily. clonazepam as prn olanzapine as prn for agitation 02/04 continue tx. 02/05 continue tx. 02/06 continue current dose of risperidone. NOTE THAT pt can't take doses higher than 3 mg/day of risperidone as higher doses had severe EPS. can use olanzapine as well per court order. 02/07/25: Patient has been agitated yelling loudly exist seeking, delusional thinking her daughter/son outside at the door to pick her up. PRNs given in the morning with mild effect. Patient became agitated, aggressive\, assaultive to 1 of the staff on the floor, yelling and hitting her face so grabbing her neck. Physical was started at 16:31 to 1634. Patient was given IM medication of Zyprexa 10 and Valium 10 with good effect. Tomorrow plan: Patient will be benefit from Valium 10 mg twice a day and Zyprexa 5 mg 3 times a day is added into her scheduled medication as current plan with risperidone is not effective. Patient also having a backup for risperidone if she refused. 02/08/25: Slept most of the morning and last night. In better behavior control. No aggressive behavior. She is quiet, self dialogue, and medication compliant. Due to receive restrain medication yesterday. I did not make any medication change. But the Valium and additional Zyprexa appears to be helpful. 02/09 will try to change keppra to depakote for seizures as keppra may exacerbate psychosis. increase risperidone 1mg po daily and 2mg po qhs. may need to add second antipsychotic. 02/10 continues to present as paranoid with AH. at times declines oral medications, requiring IM back per court order. 02/11 continue tx. 02/12 continue tx. 02/13 continue tx. 02/14: no changes today. Monitor for agitation around confusion about hospitalization 02/15: no changes today, self dialogue more overt/extensive today 02/16 add olanzapine 5mg po qhs. continue risperidone. minimal improvement if any. 02/17 continue tx. 02/18 seems more somnolent with bedtime olanzapine, will continue to monitor. 02/19 cbc showed thrombocytopenia, which is new and suspect related to depakote 02/20 pt appears more sedated since addition of olanzapine at bedtime. She continues to self dialogue. minimal improvement. 02/21: Continue current management and treatment plan. 02/22: continue current management and treatment plan. 02/23 continue tx. may need to affirm HCP try different antipsychotic. 02/24 continue tx. results of LENORE 1:360, pattern homogenous A. 02/25 will try rexulti, lower risperidone. pending coordination of medical care to see if underlying autoimmune condition has anything to do with current presentation. 02/26 discussed with hospital sports attorney to dismiss sect 8, HCP invoked and can consent to other treatment. daughter Maricruz give permission to try different antipsychotic. 02/27 decrease risperidone to 1mg po daily, start prolixin 2.5mg po qhs, then increase to BID. continue olanzapine prn for agitation. olanzapine as well per court order. 03/03 pt seen by neurology, added HIV/RPR/LYME, can't have MRI due to cochlear implant. 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 Last Neurology appointment 01/2024. Missed appointment with rheumatology 05/2024, last seen in 02/26/2024. - Pt can't have MRI due to cochlear implant. Had head CT. - continue prolixin 2.5mg po daily, 5mg po qhs. will d/c risperidone, increase prolixin 5mg po BID, back up IM. 03/05 continue tx. 03/06 This field underwriter spoke with pt's flag football coach, Dr. Al obtained collateral information. Will coordinate with neurology and rheumatology once LP results are available. r/o reoccurance of pachymeningitis, lupus or other autoimmune cause for psychosis. 03/07: Continue current regimen and plans. Discontinued one-to-one and put in place 5 minute checks 03/08: Continue current plans and regimen 03/09 continue tx. 03/10: continue current mgmt. continues disorganized and psychotic. see neuro note from today. continue with neuro w/u. 03/11: given zyprexa 5 and valium [address] and head CTA. head CTA WNL, chest CT showed numerous pulmonary nodules up to 10 mm in size. no change in presentation. due to persistent requests for discharge, 3-day notice submitted on her behalf. will work toward HCP affirmation by the court. 03/12: per pulm consult, chest CT more c/w rheumatological process than CA, recommended empiric steroid course. awaiting input from neuro. consider Bx of nodules otherwise. continue current mgmt for now. 03/13: variably calm and agitated. planning for bronchoscopy with pulmonary nodule Bx on sunday. continue current mgmt. case discussed with HCP Maricruz (daughter), who is in agreement with plan. 03/14: CSF with notable findings. will f/u with neuro on sunday. stable presentation for now, remains quite psychotic. continue current mgmt. bronchoscopy sunday. Reason for continued inpatient stay Substantial Risk for: inability to function Time Spent With Patient Time: Total time managing care of this patient today __25__ minutes.
[2025-03-14 20:00] VITALS: PULSE 63; RESP 20; TEMP 36.4; O2SAT 96
[2025-03-15 09:23] VITALS: BP 119/59; PULSE 58; RESP 14; TEMP 36.7; O2SAT 98
[2025-03-15] MEDS: Fluticasone/Vilanterol 200/25 BLST.W.DEV 1 PUFF INHALE (09:30)
[2025-03-15] MEDS: Tiotropium Bromide 2.5 mcg 1 PUFF/2.5 MCG MIST.INHAL INHALE (09:30)
[2025-03-15] MEDS: NIFEdipine ER 30 MG TAB.ER.24 PO (09:30)
--- NOTE | 2025-03-15 13:21 | HO.PSYCHPN ---
Subjective Subjective Date of Service: 03/15/25 Reason For Visit: Abnormal CT chest Interim History: seated in milieu, pleasant, cooperative. hoping for discharge soon. no questions or complaints otherwise. per staff, taking meds. self-dialoguing. talking to her hand as if it were a communications device. eating. Mental Status Exam Mental Status Exam Narrative: Appearance: own attire, adequate grooming and hygiene Behavior: calm, cooperative Orientation: alert, confused Memory: impaired Psychomotor Function: no agitation or slowing; no abnormal gestures or movements Speech: loud Mood: good Affect: calm, normo-intense, non-labile Thought Process: questionably organized Thought Content: appears to believe talking to family via talking into her hand Hallucinations: per RN, active engagement in self dialogue Insight: impairment Judgment: impairment Impulsivity: none noted Diagnostics Vital Signs (24Hr): Vital Signs - 24 hr 03/14/25 20:00 03/15/25 09:23 Temperature 97.5 F 98.0 F Pulse Rate 63 58 Respiratory Rate 20 14 Blood Pressure 119/59 L Pulse Oximetry 96 98 Oxygen Delivery Method Room Air Room Air BMI result Body Mass Index 31.2 Labs 02/19/25 07:48 03/05/25 07:38 Labs: Laboratory Results - last 48 hr 03/09/25 12:35 Albumin (Send Out) 4.0 CSF Albumin 48.0 H CSF IgG Index 0.47 CSF IgG Synthesis Rate -3.4 CSF/Serum IgG Index 10.0 H IgG Index 1780 H Imaging Radiology Impressions: ITS Impressions Head CT 03/05/25 15:51 IMPRESSION: 1. No acute intracranial abnormality. 2. Right-sided cochlear nerve implant with associated streak artifact. 3. Right-sided canal wall up mastoidectomy. Electronically signed by: Levi Greer MD 03/05/2025 04:25 PM EDT RP Lumbar Puncture Fluoroscopy 03/09/25 11:50 IMPRESSION: Successful fluoroscopy-guided lumbar puncture performed without immediate complications Electronically signed by: Thompson Andujar MD 03/09/2025 04:06 PM EDT RP Chest CT 03/11/25 11:52 IMPRESSION: 1. Multiple bilateral pulmonary nodules measuring up to 10 mm in size. Further evaluation should be based on Fleischner Society guidelines below. 2. Cardiomegaly. Findings consistent with pulmonary arterial hypertension. 3. No evidence of mediastinal or hilar lymphadenopathy. Fleischner Criteria for pulmonary nodule follow-up SOLID NODULES: Low risk patient: <6mm: no follow-up 6-8mm: 6 month follow-up CT >8mm: PET/Biopsy/ 3 month follow-up CT High risk patient: <6mm: 12 month follow-up CT 6-8mm: 6 month follow-up CT >8mm: PET/Biopsy/ 3 month follow-up CT SUB-SOLID/GROUNDGLASS NODULES: All patients: > or = 6mm: 6 month follow-up CT *Please note that in patients in the following categories, the Fleischner criteria do not apply: Immunocompromised, lung cancer screening population, age below 35, and patients with known malignancy Electronically signed by: Best Clemons MD 03/11/2025 01:45 PM EDT RP Head CTA 03/11/25 11:52 IMPRESSION: Head CT: No acute intracranial abnormality. CT angiogram of the head: No vascular occlusions. Electronically signed by: Gypsy Salamanca MD 03/11/2025 03:02 PM EDT RP Medications Medications Current Medications Acetaminophen (Acetaminophen 325 Mg Tablet) 650 mg PO Q6H PRN PRN Reason: Headache/Pain, Scale 1-10 Last Admin: 03/10/25 08:55 Dose: 650 mg Al Hydroxide/Mg Hydroxide (Magnesium Hydrox/Alum Hydrox 30 Ml Oral.Susp) 30 ml PO Q6H PRN PRN Reason: Heartburn/Nausea Albuterol Sulfate (Albuterol Sulfate 90 Mcg 8 Gm Inhaler) 2 puff INHALE Q4H PRN PRN Reason: Shortness Of Breath Or Wheezing Atorvastatin Calcium (Atorvastatin Calcium 40 Mg Tablet) [address] [facility] Last Admin: 03/15/25 09:30 Dose: 40 mg Benztropine Mesylate (Benztropine Mesylate 0.5 Mg Tablet) 0.5 mg PO DAILY [facility] Last Admin: 03/15/25 09:30 Dose: 0.5 mg Benztropine Mesylate (Benztropine Mesylate 1 Mg Tablet) 1 mg PO BEDTIME [facility] Last Admin: 03/14/25 20:06 Dose: 1 mg Clonazepam (Clonazepam Odt 0.5 Mg Tab.Rapdis) 0.5 mg PO BID PRN PRN Reason: severe anxiety/sleep Last Admin: 03/12/25 17:18 Dose: 0.5 mg Fluphenazine HCl (Fluphenazine Hcl 2.5 Mg/Ml 10 Ml Vial) 2.5 mg IM BID PRN PRN Reason: give if refuses oral per HCP Last Admin: 03/05/25 09:42 Dose: 2.5 mg Fluphenazine HCl (Fluphenazine Hcl 2.5 Mg Tablet) 2.[address] [facility] Last Admin: 03/15/25 09:30 Dose: 2.5 mg Fluphenazine HCl (Fluphenazine Hcl 5 Mg Tablet) [address] [facility] Last Admin: 03/14/25 20:06 Dose: 5 mg Fluticasone/Vilanterol (Fluticasone/Vilanterol 200/25 Blst.W.Dev) [address] [facility] Last Admin: 03/15/25 09:30 Dose: 1 puff Guaifenesin (Guaifenesin 200 Mg/10 Ml 10 Ml Liquid) 10 ml PO Q6H PRN PRN Reason: Cough Hydrochlorothiazide (Hydrochlorothiazide 25 Mg Tablet) [address] [facility] Last Admin: 03/15/25 09:30 Dose: 25 mg Levetiracetam (Levetiracetam 250 Mg Tablet) [address] [facility] Last Admin: 03/15/25 09:30 Dose: 250 mg Lorazepam (Lorazepam 1 Mg Tablet) 2 mg PO DAILY PRN PRN Reason: before procedure Last Admin: 03/11/25 09:56 Dose: 2 mg Magnesium Hydroxide (Milk Of Magnesia 30 Ml Oral.Susp) 30 ml PO DAILY PRN PRN Reason: Constipation Methimazole (Methimazole 5 Mg Tablet) [address] [facility] Last Admin: 03/15/25 09:30 Dose: 5 mg Naloxone HCl (Naloxone Hcl 0.4 Mg/Ml Vial) 0.04 mg IVPUSH Q5M PRN PRN Reason: Excessive sedation or RR < 8 Nifedipine (Nifedipine Er 30 Mg Tab.Er.24) [address] [facility]; Protocol Last Admin: 03/15/25 09:30 Dose: 30 mg Olanzapine (Olanzapine 10 Mg Tablet) 10 mg PO Q6H PRN PRN Reason: severe agitation Last Admin: 03/12/25 17:18 Dose: 10 mg Tiotropium Rankin (Tiotropium Rankin 2.5 Mcg 1 Puff/2.5 Mcg Mist.Inhal) 1 puff INHALE RDJOHNATHAN [facility] Last Admin: 03/15/25 09:30 Dose: 1 puff Trazodone HCl (Trazodone Hcl 50 Mg Tablet) 50 mg PO BEDTIME MRX1 PRN PRN Reason: Insomnia Last Admin: 03/12/25 19:50 Dose: 50 mg Allergies Allergies Allergy/AdvReac Type Severity Reaction Status Date / Time latex Allergy Unknown Verified 03/09/25 11:50 peanut Allergy Unknown Verified 03/09/25 11:50 Penicillins Allergy Unknown Verified 03/09/25 11:50 Assessment & Plan Assessment & Plan (1) 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 CT chest imaging reviewed, and is more consistent with rheumatologic/interstitial process, though malignancy can not be completely ruled out. Recommendation: Consider starting patient on prednisone equivalent of 1 milligram/kilogram per day for 30 days. Would consider repeating CT chest in 4-6 weeks. 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 With no obvious bacterial infection or viral infection, differential diagnosis would include vasculitis, autoimmune encephalitis, sarcoidosis, or atypical organism. Lupus was a possibility but patchy meningitis usually is not a feature of lupus cerebritis. Test for HIV, syphilis, and Lyme were negative. I would add test for babesiosis, and CTA of brain to rule out any signs of vasculitis type pattern. If no other or specific diagnosis is found, I would consider treatment with prednisone or steroid. Plan Mrs. Sharif is a 69 year-old woman who presents with a 3 month hx of new onset of psychosis (AH) and combination of paranoid delusions and cap gras delusions. No prior psychiatric hx. She does have of cocaine use but apparently had not used in some years. Daughter suspects she may have relapsed but no ongoing use. Pt presents with more complex theme of delusions. No additional medical work up available including head CT. CBC and cmp unremarkable. 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 It may be related to dementia process but complexity of delusions and psychosis not the common presentation for dementia that have psychosis early on such as in vascular dementia or LBD. Pt presents as gravely disable to able to care for self due to symptoms of psychosis and delusions. 02/03 increase night time risperidone 2mg po qhs increase cogetin at bedtime to 1mg po qhs. lower daily dose to 0.5mg po daily. continue cogentin 0.5mg po daily. clonazepam as prn olanzapine as prn for agitation 02/04 continue tx. 02/05 continue tx. 02/06 continue current dose of risperidone. NOTE THAT pt can't take doses higher than 3 mg/day of risperidone as higher doses had severe EPS. can use olanzapine as well per court order. 02/07/25: Patient has been agitated yelling loudly exist seeking, delusional thinking her daughter/son outside at the door to pick her up. PRNs given in the morning with mild effect. Patient became agitated, aggressive\, assaultive to 1 of the staff on the floor, yelling and hitting her face so grabbing her neck. Physical was started at 16:31 to 1634. Patient was given IM medication of Zyprexa 10 and Valium 10 with good effect. Tomorrow plan: Patient will be benefit from Valium 10 mg twice a day and Zyprexa 5 mg 3 times a day is added into her scheduled medication as current plan with risperidone is not effective. Patient also having a backup for risperidone if she refused. 02/08/25: Slept most of the morning and last night. In better behavior control. No aggressive behavior. She is quiet, self dialogue, and medication compliant. Due to receive restrain medication yesterday. I did not make any medication change. But the Valium and additional Zyprexa appears to be helpful. 02/09 will try to change keppra to depakote for seizures as keppra may exacerbate psychosis. increase risperidone 1mg po daily and 2mg po qhs. may need to add second antipsychotic. 02/10 continues to present as paranoid with AH. at times declines oral medications, requiring IM back per court order. 02/11 continue tx. 02/12 continue tx. 02/13 continue tx. 02/14: no changes today. Monitor for agitation around confusion about hospitalization 02/15: no changes today, self dialogue more overt/extensive today 02/16 add olanzapine 5mg po qhs. continue risperidone. minimal improvement if any. 02/17 continue tx. 02/18 seems more somnolent with bedtime olanzapine, will continue to monitor. 02/19 cbc showed thrombocytopenia, which is new and suspect related to depakote 02/20 pt appears more sedated since addition of olanzapine at bedtime. She continues to self dialogue. minimal improvement. 02/21: Continue current management and treatment plan. 02/22: continue current management and treatment plan. 02/23 continue tx. may need to affirm HCP try different antipsychotic. 02/24 continue tx. results of LENORE 1:360, pattern homogenous A. 02/25 will try rexulti, lower risperidone. pending coordination of medical care to see if underlying autoimmune condition has anything to do with current presentation. 02/26 discussed with hospital disability attorney to dismiss sect 8, HCP invoked and can consent to other treatment. daughter Maricruz give permission to try different antipsychotic. 02/27 decrease risperidone to 1mg po daily, start prolixin 2.5mg po qhs, then increase to BID. continue olanzapine prn for agitation. olanzapine as well per court order. 03/03 pt seen by neurology, added HIV/RPR/LYME, can't have MRI due to cochlear implant. 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 Last Neurology appointment 01/2024. Missed appointment with rheumatology 05/2024, last seen in 02/26/2024. - Pt can't have MRI due to cochlear implant. Had head CT. - continue prolixin 2.5mg po daily, 5mg po qhs. will d/c risperidone, increase prolixin 5mg po BID, back up IM. 03/05 continue tx. 03/06 This data analyst report writer spoke with pt's road crew member, Dr. Al obtained collateral information. Will coordinate with neurology and rheumatology once LP results are available. r/o reoccurance of pachymeningitis, lupus or other autoimmune cause for psychosis. 03/07: Continue current regimen and plans. Discontinued one-to-one and put in place 5 minute checks 03/08: Continue current plans and regimen 03/09 continue tx. 03/10: continue current mgmt. continues disorganized and psychotic. see neuro note from today. continue with neuro w/u. 03/11: given zyprexa 5 and valium [address] and head CTA. head CTA WNL, chest CT showed numerous pulmonary nodules up to 10 mm in size. no change in presentation. due to persistent requests for discharge, 3-day notice submitted on her behalf. will work toward HCP affirmation by the court. 03/12: per pulm consult, chest CT more c/w rheumatological process than CA, recommended empiric steroid course. awaiting input from neuro. consider Bx of nodules otherwise. continue current mgmt for now. 03/13: variably calm and agitated. planning for bronchoscopy with pulmonary nodule Bx on sunday. continue current mgmt. case discussed with HCP Maricruz (daughter), who is in agreement with plan. 03/14: CSF with notable findings. will f/u with neuro on sunday. stable presentation for now, remains quite psychotic. continue current mgmt. bronchoscopy sunday. 03/15: no change from yesterday in presentation or plan. Reason for continued inpatient stay Substantial Risk for: harm to self and inability to function Time Spent With Patient Time: Total time managing care of this patient today ____ minutes.
[2025-03-15 20:00] VITALS: BP 141/68; PULSE 63; RESP 18; TEMP 36.8; O2SAT 97
[2025-03-15] MEDS: clonazePAM ODT 0.5 MG TAB.RAPDIS PO (21:13)
[2025-03-16 08:48] VITALS: BP 124/51; PULSE 58; RESP 16; TEMP 36.5; O2SAT 96
[2025-03-16] MEDS: Tiotropium Bromide 2.5 mcg 1 PUFF/2.5 MCG MIST.INHAL INHALE (08:49)
[2025-03-16] MEDS: Fluticasone/Vilanterol 200/25 BLST.W.DEV 1 PUFF INHALE (08:49)
[2025-03-16] MEDS: NIFEdipine ER 30 MG TAB.ER.24 PO (08:49)
--- NOTE | 2025-03-16 10:54 | HO.PSYCHPN ---
Subjective Subjective Date of Service: 03/16/25 Reason For Visit: Abnormal CT chest Interim History: feeling so-so. pleasant, polite. wants to leave the hospital. asking about whether she needs to give more blood for lab testing prior to discharge. per staff, eating well, taking meds. slept 8 hours. affirm HCP. Mental Status Exam Mental Status Exam Narrative: Appearance: own attire, adequate grooming and hygiene Behavior: calm, cooperative Orientation: alert, confused Memory: impaired Psychomotor Function: no agitation or slowing; no abnormal gestures or movements Speech: loud Mood: so-so Affect: calm, normo-intense, non-labile Thought Process: questionably organized Thought Content: appears to believe talking to family via talking into her hand Hallucinations: per RN, active engagement in self dialogue Insight: impairment Judgment: impairment Impulsivity: none noted Diagnostics Vital Signs (24Hr): Vital Signs - 24 hr 03/15/25 20:00 03/16/25 08:48 Temperature 98.3 F 97.7 F Pulse Rate 63 58 Respiratory Rate 18 16 Blood Pressure 141/68 H 124/51 L Pulse Oximetry 97 96 Oxygen Delivery Method Room Air Room Air BMI result Body Mass Index 31.2 Labs 02/19/25 07:48 03/05/25 07:38 Imaging Radiology Impressions: ITS Impressions Head CT 03/05/25 15:51 IMPRESSION: 1. No acute intracranial abnormality. 2. Right-sided cochlear nerve implant with associated streak artifact. 3. Right-sided canal wall up mastoidectomy. Electronically signed by: Levi Greer MD 03/05/2025 04:25 PM EDT RP Lumbar Puncture Fluoroscopy 03/09/25 11:50 IMPRESSION: Successful fluoroscopy-guided lumbar puncture performed without immediate complications Electronically signed by: Thompson Andujar MD 03/09/2025 04:06 PM EDT RP Chest CT 03/11/25 11:52 IMPRESSION: 1. Multiple bilateral pulmonary nodules measuring up to 10 mm in size. Further evaluation should be based on Fleischner Society guidelines below. 2. Cardiomegaly. Findings consistent with pulmonary arterial hypertension. 3. No evidence of mediastinal or hilar lymphadenopathy. Fleischner Criteria for pulmonary nodule follow-up SOLID NODULES: Low risk patient: <6mm: no follow-up 6-8mm: 6 month follow-up CT >8mm: PET/Biopsy/ 3 month follow-up CT High risk patient: <6mm: 12 month follow-up CT 6-8mm: 6 month follow-up CT >8mm: PET/Biopsy/ 3 month follow-up CT SUB-SOLID/GROUNDGLASS NODULES: All patients: > or = 6mm: 6 month follow-up CT *Please note that in patients in the following categories, the Fleischner criteria do not apply: Immunocompromised, lung cancer screening population, age below 35, and patients with known malignancy Electronically signed by: Best Clemons MD 03/11/2025 01:45 PM EDT RP Head CTA 03/11/25 11:52 IMPRESSION: Head CT: No acute intracranial abnormality. CT angiogram of the head: No vascular occlusions. Electronically signed by: Gypsy Salamanca MD 03/11/2025 03:02 PM EDT RP Medications Medications Current Medications Acetaminophen (Acetaminophen 325 Mg Tablet) 650 mg PO Q6H PRN PRN Reason: Headache/Pain, Scale 1-10 Last Admin: 03/10/25 08:55 Dose: 650 mg Al Hydroxide/Mg Hydroxide (Magnesium Hydrox/Alum Hydrox 30 Ml Oral.Susp) 30 ml PO Q6H PRN PRN Reason: Heartburn/Nausea Albuterol Sulfate (Albuterol Sulfate 90 Mcg 8 Gm Inhaler) 2 puff INHALE Q4H PRN PRN Reason: Shortness Of Breath Or Wheezing Atorvastatin Calcium (Atorvastatin Calcium 40 Mg Tablet) 40 mg PO DAILY [facility] Last Admin: 03/16/25 08:48 Dose: 40 mg Benztropine Mesylate (Benztropine Mesylate 0.5 Mg Tablet) 0.5 mg PO DAILY ALLY Last Admin: 03/16/25 08:48 Dose: 0.5 mg Benztropine Mesylate (Benztropine Mesylate 1 Mg Tablet) 1 mg PO BEDTIME [facility] Last Admin: 03/15/25 20:07 Dose: 1 mg Clonazepam (Clonazepam Odt 0.5 Mg Tab.Rapdis) 0.5 mg PO BID PRN PRN Reason: severe anxiety/sleep Last Admin: 03/15/25 21:13 Dose: 0.5 mg Fluphenazine HCl (Fluphenazine Hcl 2.5 Mg/Ml 10 Ml Vial) 2.5 mg IM BID PRN PRN Reason: give if refuses oral per HCP Last Admin: 03/05/25 09:42 Dose: 2.5 mg Fluphenazine HCl (Fluphenazine Hcl 2.5 Mg Tablet) 2.5 mg PO DAILY [facility] Last Admin: 03/16/25 08:49 Dose: 2.5 mg Fluphenazine HCl (Fluphenazine Hcl 5 Mg Tablet) 5 mg PO BEDTIME [facility] Last Admin: 03/15/25 20:07 Dose: 5 mg Fluticasone/Vilanterol (Fluticasone/Vilanterol 200/25 Blst.W.Dev) 1 puff INHALE RDAILY [facility] Last Admin: 03/16/25 08:49 Dose: 1 puff Guaifenesin (Guaifenesin 200 Mg/10 Ml 10 Ml Liquid) 10 ml PO Q6H PRN PRN Reason: Cough Hydrochlorothiazide (Hydrochlorothiazide 25 Mg Tablet) 25 mg PO DAILY [facility] Last Admin: 03/16/25 08:49 Dose: 25 mg Levetiracetam (Levetiracetam 250 Mg Tablet) 250 mg PO BID [facility] Last Admin: 03/16/25 08:49 Dose: 250 mg Lorazepam (Lorazepam 1 Mg Tablet) 2 mg PO DAILY PRN PRN Reason: before procedure Last Admin: 03/11/25 09:56 Dose: 2 mg Magnesium Hydroxide (Milk Of Magnesia 30 Ml Oral.Susp) 30 ml PO DAILY PRN PRN Reason: Constipation Methimazole (Methimazole 5 Mg Tablet) 5 mg PO DAILY [facility] Last Admin: 03/16/25 08:53 Dose: 5 mg Naloxone HCl (Naloxone Hcl 0.4 Mg/Ml Vial) 0.04 mg IVPUSH Q5M PRN PRN Reason: Excessive sedation or RR < 8 Nifedipine (Nifedipine Er 30 Mg Tab.Er.24) 30 mg PO DAILY [facility]; Protocol Last Admin: 03/16/25 08:49 Dose: 30 mg Olanzapine (Olanzapine 10 Mg Tablet) 10 mg PO Q6H PRN PRN Reason: severe agitation Last Admin: 03/15/25 21:17 Dose: 10 mg Tiotropium [place] (Tiotropium [place] 2.5 Mcg 1 Puff/2.5 Mcg Mist.Inhal) 1 puff INHALE RDAILY [facility] Last Admin: 03/16/25 08:49 Dose: 1 puff Trazodone HCl (Trazodone Hcl 50 Mg Tablet) 50 mg PO BEDTIME MRX1 PRN PRN Reason: Insomnia Last Admin: 03/15/25 20:07 Dose: 50 mg Allergies Allergies Allergy/AdvReac Type Severity Reaction Status Date / Time latex Allergy Unknown Verified 03/09/25 11:50 peanut Allergy Unknown Verified 03/09/25 11:50 Penicillins Allergy Unknown Verified 03/09/25 11:50 Assessment & Plan Assessment & Plan (1) 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 CT chest imaging reviewed, and is more consistent with rheumatologic/interstitial process, though malignancy can not be completely ruled out. Recommendation: Consider starting patient on prednisone equivalent of 1 milligram/kilogram per day for 30 days. Would consider repeating CT chest in 4-6 weeks. 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 With no obvious bacterial infection or viral infection, differential diagnosis would include vasculitis, autoimmune encephalitis, sarcoidosis, or atypical organism. Lupus was a possibility but patchy meningitis usually is not a feature of lupus cerebritis. Test for HIV, syphilis, and Lyme were negative. I would add test for babesiosis, and CTA of brain to rule out any signs of vasculitis type pattern. If no other or specific diagnosis is found, I would consider treatment with prednisone or steroid. Plan Mrs. Sharif is a 69 year-old woman who presents with a 3 month hx of new onset of psychosis (AH) and combination of paranoid delusions and cap gras delusions. No prior psychiatric hx. She does have of cocaine use but apparently had not used in some years. Daughter suspects she may have relapsed but no ongoing use. Pt presents with more complex theme of delusions. No additional medical work up available including head CT. CBC and cmp unremarkable. 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 It may be related to dementia process but complexity of delusions and psychosis not the common presentation for dementia that have psychosis early on such as in vascular dementia or LBD. Pt presents as gravely disable to able to care for self due to symptoms of psychosis and delusions. 02/03 increase night time risperidone 2mg po qhs increase cogetin at bedtime to 1mg po qhs. lower daily dose to 0.5mg po daily. continue cogentin 0.5mg po daily. clonazepam as prn olanzapine as prn for agitation 02/04 continue tx. 02/05 continue tx. 02/06 continue current dose of risperidone. NOTE THAT pt can't take doses higher than 3 mg/day of risperidone as higher doses had severe EPS. can use olanzapine as well per court order. 02/07/25: Patient has been agitated yelling loudly exist seeking, delusional thinking her daughter/son outside at the door to pick her up. PRNs given in the morning with mild effect. Patient became agitated, aggressive\, assaultive to 1 of the staff on the floor, yelling and hitting her face so grabbing her neck. Physical was started at 16:31 to 1634. Patient was given IM medication of Zyprexa 10 and Valium 10 with good effect. Tomorrow plan: Patient will be benefit from Valium 10 mg twice a day and Zyprexa 5 mg 3 times a day is added into her scheduled medication as current plan with risperidone is not effective. Patient also having a backup for risperidone if she refused. 02/08/25: Slept most of the morning and last night. In better behavior control. No aggressive behavior. She is quiet, self dialogue, and medication compliant. Due to receive restrain medication yesterday. I did not make any medication change. But the Valium and additional Zyprexa appears to be helpful. 02/09 will try to change keppra to depakote for seizures as keppra may exacerbate psychosis. increase risperidone 1mg po daily and 2mg po qhs. may need to add second antipsychotic. 02/10 continues to present as paranoid with AH. at times declines oral medications, requiring IM back per court order. 02/11 continue tx. 02/12 continue tx. 02/13 continue tx. 02/14: no changes today. Monitor for agitation around confusion about hospitalization 02/15: no changes today, self dialogue more overt/extensive today 02/16 add olanzapine 5mg po qhs. continue risperidone. minimal improvement if any. 02/17 continue tx. 02/18 seems more somnolent with bedtime olanzapine, will continue to monitor. 02/19 cbc showed thrombocytopenia, which is new and suspect related to depakote 02/20 pt appears more sedated since addition of olanzapine at bedtime. She continues to self dialogue. minimal improvement. 02/21: Continue current management and treatment plan. 02/22: continue current management and treatment plan. 02/23 continue tx. may need to affirm HCP try different antipsychotic. 02/24 continue tx. results of LENORE 1:360, pattern homogenous A. 02/25 will try rexulti, lower risperidone. pending coordination of medical care to see if underlying autoimmune condition has anything to do with current presentation. 02/26 discussed with hospital deputy commonwealth's attorney to dismiss sect 8, HCP invoked and can consent to other treatment. daughter Maricruz give permission to try different antipsychotic. 02/27 decrease risperidone to 1mg po daily, start prolixin 2.5mg po qhs, then increase to BID. continue olanzapine prn for agitation. olanzapine as well per court order. 03/03 pt seen by neurology, added HIV/RPR/LYME, can't have MRI due to cochlear implant. 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 Last Neurology appointment 01/2024. Missed appointment with rheumatology 05/2024, last seen in 02/26/2024. - Pt can't have MRI due to cochlear implant. Had head CT. - continue prolixin 2.5mg po daily, 5mg po qhs. will d/c risperidone, increase prolixin 5mg po BID, back up IM. 03/05 continue tx. 03/06 This engineering technical writer spoke with pt's med spa manager, Dr. Al obtained collateral information. Will coordinate with neurology and rheumatology once LP results are available. r/o reoccurance of pachymeningitis, lupus or other autoimmune cause for psychosis. 03/07: Continue current regimen and plans. Discontinued one-to-one and put in place 5 minute checks 03/08: Continue current plans and regimen 03/09 continue tx. 03/10: continue current mgmt. continues disorganized and psychotic. see neuro note from today. continue with neuro w/u. 03/11: given zyprexa 5 and valium [address] and head CTA. head CTA WNL, chest CT showed numerous pulmonary nodules up to 10 mm in size. no change in presentation. due to persistent requests for discharge, 3-day notice submitted on her behalf. will work toward HCP affirmation by the court. 03/12: per pulm consult, chest CT more c/w rheumatological process than CA, recommended empiric steroid course. awaiting input from neuro. consider Bx of nodules otherwise. continue current mgmt for now. 03/13: variably calm and agitated. planning for bronchoscopy with pulmonary nodule Bx on sunday. continue current mgmt. case discussed with HCP Maricruz (daughter), who is in agreement with plan. 03/14: CSF with notable findings. will f/u with neuro on sunday. stable presentation for now, remains quite psychotic. continue current mgmt. bronchoscopy sunday. 03/15: no change from yesterday in presentation or plan. 03/16: stable presentation. continues confused, wanting to go home. HCP affirmation tomorrow. continue current mgmt. Reason for continued inpatient stay Substantial Risk for: inability to function Time Spent With Patient Time: Total time managing care of this patient today __25__ minutes.
[2025-03-16 20:00] VITALS: BP 116/56; PULSE 56; RESP 18; TEMP 36.5; O2SAT 97
[2025-03-16] MEDS: clonazePAM ODT 0.5 MG TAB.RAPDIS PO (20:26)
[2025-03-17] MEDS: NIFEdipine ER 30 MG TAB.ER.24 PO (08:50)
--- NOTE | 2025-03-17 08:51 | PM.PNPUL ---
Subjective Subjective Date of Service: 03/17/25 Interval history: The patient was seen on exam. 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 The patient initially presented with altered mental status and she was diagnosed with meningeal encephalitis. Based on the laboratories ruled out an infectious process. There is a suspicion of possible inflammatory conditions just connective tissue diseases and sarcoidosis. Also in differential includes paraneoplastic conditions. Based on her ongoing symptoms and findings the patient did undergo a CT scan of the chest demonstrating pulmonary nodules. I did personally review the CAT scan. A more definitive surgical biopsy of the pulmonary nodules will be more appropriate but at this time we do not have that availability. Therefore, the patient requires a bronchoscopy for airway survey in biopsy as well as sampling of the lymph nodes to rule out the possibility of sarcoid and to assess the possibility of cancer. Indeed some of the blood work has already come up positive for some markers of inflammatory disease with a positive LENORE and significantly positive CCP consistent with rheumatoid arthritis. The patient does have some rheumatological findings on her exam with some evidence of arthritis. Although again the history is limited due to her medical conditions. 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 TECHNIQUE: Helical CT scan of the chest was performed for an after the administration of intravenous contrast (85 mL Omnipaque 350). Coronal and sagittal reformatted images were generated and reviewed. This CT exam was performed with one or more of the following dose reduction techniques: automated exposure control, adjustment of the mA and/or kV according to patient size, use of iterative reconstruction technique. DLP: 276 mGy-cm CHEST: THYROID: The thyroid is unremarkable. LUNGS: There are mild emphysematous changes. There are multiple nodules in the right upper lobe measuring 7 mm and 8 mm (series 12, image 37) and 9 mm (series 12, image 38). There is a 10 mm nodule in the left upper lobe (series 12, image 58). There is subsegmental atelectasis at the lung bases. MEDIASTINUM: There is no mediastinal lymphadenopathy. ODILON: There is no hilar lymphadenopathy. CARDIOVASCULATURE: The heart is enlarged. There is no pericardial effusion. The thoracic aorta is normal in caliber. There is dilatation of the main pulmonary artery system with pulmonary arterial hypertension. DEGREE OF CORONARY CALCIFICATION: none PLEURA: There is no pleural effusion. No pneumothorax. MAIN AIRWAYS: The mainstem bronchi and proximal branches are patent. AXILLA: There is no axillary lymphadenopathy. BONES AND SOFT TISSUES: There is degenerative disc disease of the spine. UPPER ABDOMEN: The visualized portions of the liver, spleen, and adrenals are unremarkable. CT/CT chest wo/w IV con IMPRESSION: 1. Multiple bilateral pulmonary nodules measuring up to 10 mm in size. Further evaluation should be based on Fleischner Society guidelines below. 2. Cardiomegaly. Findings consistent with pulmonary arterial hypertension. 3. No evidence of mediastinal or hilar lymphadenopathy. Fleischner Criteria for pulmonary nodule follow-up SOLID NODULES: Low risk patient: <6mm: no follow-up 6-8mm: 6 month follow-up CT >8mm: PET/Biopsy/ 3 month follow-up CT High risk patient: <6mm: 12 month follow-up CT 6-8mm: 6 month follow-up CT >8mm: PET/Biopsy/ 3 month follow-up CT SUB-SOLID/GROUNDGLASS NODULES: All patients: > or = 6mm: 6 month follow-up CT *Please note that in patients in the following categories, the Fleischner criteria do not apply: Immunocompromised, lung cancer screening population, age below 35, and patients with known malignancy Electronically signed by: Best Clemons MD 03/11/2025 01:45 PM EDT Dictated By: Best Clemons MD Signed By: <Electronically signed by Best Clemons MD in OV> 03/11/25 1345 DD/ 1152 TD/TT: 03/11/25 1300 Dividing Machine Operator Helper: Microbiology Microbiology Results: Microbiology 03/09/25 12:40 Cerebrospinal Fluid Gram Stain - Final 03/09/25 12:40 Cerebrospinal Fluid Fluid Description - Final 03/09/25 12:40 Cerebrospinal Fluid CSF Culture - Final No growth after 3 days. 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
[2025-03-17] MEDS: Tiotropium Bromide 2.5 mcg 1 PUFF/2.5 MCG MIST.INHAL INHALE (08:54)
--- NOTE | 2025-03-17 10:15 | P.PNPSI_ITS ---
Subjective Subjective Date of Service: 03/17/25 Reason For Visit: Abnormal CT chest Interim History: calm, cooperative. asking about discharge. no complaints or requests otherwise. per staff, talking into hand. allowed labs. taking meds. delusional, self-dialoguing. slept 8 hours. Mental Status Exam Mental Status Exam Narrative: Appearance: own attire, adequate grooming and hygiene Behavior: calm, cooperative Orientation: alert, confused Memory: impaired Psychomotor Function: no agitation or slowing; no abnormal gestures or movements Speech: loud Mood: so-so Affect: calm, normo-intense, non-labile Thought Process: questionably organized Thought Content: appears to believe talking to family via talking into her hand Hallucinations: per RN, active engagement in self dialogue Insight: impairment Judgment: impairment Impulsivity: none noted Diagnostics Vital Signs (24Hr): Vital Signs - 24 hr 03/16/25 20:00 Temperature 97.7 F Pulse Rate 56 Respiratory Rate 18 Blood Pressure 116/56 L Pulse Oximetry 97 Oxygen Delivery Method Room Air BMI result Body Mass Index 31.2 Labs 02/19/25 07:48 03/05/25 07:38 Labs: Laboratory Results - last 48 hr 03/09/25 12:35 CSF Oligoclonal Bands Absent Imaging Radiology Impressions: ITS Impressions Head CT 03/05/25 15:51 IMPRESSION: 1. No acute intracranial abnormality. 2. Right-sided cochlear nerve implant with associated streak artifact. 3. Right-sided canal wall up mastoidectomy. Electronically signed by: Levi Greer MD 03/05/2025 04:25 PM EDT Lumbar Puncture Fluoroscopy 03/09/25 11:50 IMPRESSION: Successful fluoroscopy-guided lumbar puncture performed without immediate complications Electronically signed by: Thompson Andujar MD 03/09/2025 04:06 PM EDT RP Chest CT 03/11/25 11:52 IMPRESSION: 1. Multiple bilateral pulmonary nodules measuring up to 10 mm in size. Further evaluation should be based on Fleischner Society guidelines below. 2. Cardiomegaly. Findings consistent with pulmonary arterial hypertension. 3. No evidence of mediastinal or hilar lymphadenopathy. Fleischner Criteria for pulmonary nodule follow-up SOLID NODULES: Low risk patient: <6mm: no follow-up 6-8mm: 6 month follow-up CT >8mm: PET/Biopsy/ 3 month follow-up CT High risk patient: <6mm: 12 month follow-up CT 6-8mm: 6 month follow-up CT >8mm: PET/Biopsy/ 3 month follow-up CT SUB-SOLID/GROUNDGLASS NODULES: All patients: > or = 6mm: 6 month follow-up CT *Please note that in patients in the following categories, the Fleischner criteria do not apply: Immunocompromised, lung cancer screening population, age below 35, and patients with known malignancy Electronically signed by: Best Clemons MD 03/11/2025 01:45 PM EDT RP Head CTA 03/11/25 11:52 IMPRESSION: Head CT: No acute intracranial abnormality. CT angiogram of the head: No vascular occlusions. Electronically signed by: Gypsy Salamanca MD 03/11/2025 03:02 PM EDT RP Medications Medications Current Medications Acetaminophen (Acetaminophen 325 Mg Tablet) 650 mg PO Q6H PRN PRN Reason: Headache/Pain, Scale 1-10 Last Admin: 03/10/25 08:55 Dose: 650 mg Al Hydroxide/Mg Hydroxide (Magnesium Hydrox/Alum Hydrox 30 Ml Oral.Susp) 30 ml PO Q6H PRN PRN Reason: Heartburn/Nausea Albuterol Sulfate (Albuterol Sulfate 90 Mcg 8 Gm Inhaler) 2 puff INHALE Q4H PRN PRN Reason: Shortness Of Breath Or Wheezing Atorvastatin Calcium (Atorvastatin Calcium 40 Mg Tablet) 40 mg PO DAILY [facility] Last Admin: 03/17/25 08:50 Dose: 40 mg Benztropine Mesylate (Benztropine Mesylate 0.5 Mg Tablet) 0.5 mg PO DAILY [facility] Last Admin: 03/17/25 08:51 Dose: 0.5 mg Benztropine Mesylate (Benztropine Mesylate 1 Mg Tablet) 1 mg PO BEDTIME [facility] Last Admin: 03/16/25 20:26 Dose: 1 mg Clonazepam (Clonazepam Odt 0.5 Mg Tab.Rapdis) 0.5 mg PO BID PRN PRN Reason: severe anxiety/sleep Last Admin: 03/16/25 20:26 Dose: 0.5 mg Fluphenazine HCl (Fluphenazine Hcl 2.5 Mg/Ml 10 Ml Vial) 2.5 mg IM BID PRN PRN Reason: give if refuses oral per HCP Last Admin: 03/05/25 09:42 Dose: 2.5 mg Fluphenazine HCl (Fluphenazine Hcl 2.5 Mg Tablet) 2.5 mg PO DAILY [facility] Last Admin: 03/17/25 08:50 Dose: 2.5 mg Fluphenazine HCl (Fluphenazine Hcl 5 Mg Tablet) 5 mg PO BEDTIME [facility] Last Admin: 03/16/25 20:26 Dose: 5 mg Fluticasone/Vilanterol (Fluticasone/Vilanterol 200/25 Blst.W.Dev) 1 puff INHALE RDAILY [facility] Last Admin: 03/17/25 08:55 Dose: Not Given Guaifenesin (Guaifenesin 200 Mg/10 Ml 10 Ml Liquid) 10 ml PO Q6H PRN PRN Reason: Cough Hydrochlorothiazide (Hydrochlorothiazide 25 Mg Tablet) 25 mg PO DAILY [facility] Last Admin: 03/17/25 08:51 Dose: 25 mg Levetiracetam (Levetiracetam 250 Mg Tablet) 250 mg PO BID [facility] Last Admin: 03/17/25 08:51 Dose: 250 mg Lorazepam (Lorazepam 1 Mg Tablet) 2 mg PO DAILY PRN PRN Reason: before procedure Last Admin: 03/11/25 09:56 Dose: 2 mg Magnesium Hydroxide (Milk Of Magnesia 30 Ml Oral.Susp) 30 ml PO DAILY PRN PRN Reason: Constipation Methimazole (Methimazole 5 Mg Tablet) 5 mg PO DAILY [facility] Last Admin: 03/17/25 09:16 Dose: 5 mg Naloxone HCl (Naloxone Hcl 0.4 Mg/Ml Vial) 0.04 mg IVPUSH Q5M PRN PRN Reason: Excessive sedation or RR < 8 Nifedipine (Nifedipine Er 30 Mg Tab.Er.24) 30 mg PO DAILY [facility]; Protocol Last Admin: 03/17/25 08:50 Dose: 30 mg Olanzapine (Olanzapine 10 Mg Tablet) 10 mg PO Q6H PRN PRN Reason: severe agitation Last Admin: 03/15/25 21:17 Dose: 10 mg Tiotropium [place] (Tiotropium [place] 2.5 Mcg 1 Puff/2.5 Mcg Mist.Inhal) 1 puff INHALE RDAILY [facility] Last Admin: 03/17/25 08:54 Dose: 1 puff Trazodone HCl (Trazodone Hcl 50 Mg Tablet) 50 mg PO BEDTIME MRX1 PRN PRN Reason: Insomnia Last Admin: 03/16/25 20:26 Dose: 50 mg Allergies Allergies Allergy/AdvReac Type Severity Reaction Status Date / Time latex Allergy Unknown Verified 03/09/25 11:50 peanut Allergy Unknown Verified 03/09/25 11:50 Penicillins Allergy Unknown Verified 03/09/25 11:50 Assessment & Plan Assessment & Plan (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 - Encephalitis and encephalomyelitis, unspecified (2) Pulmonary nodules: Status: Acute Code(s): R91.8 - Other nonspecific abnormal finding of lung field Assessment and Plan: Bloodwork plan for bronchosopcy, EBUS to sample mediastinal and hilar lymphnodes and transbronchial biopsies to assess for malinancy and sarcoidsosis The bronchoscopy is urgent in order to facilitate her medical treatment (3) 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 Sharif is a 69 year-old woman who presents with a 3 month hx of new onset of psychosis (AH) and combination of paranoid delusions and cap gras delusions. No prior psychiatric hx. She does have of cocaine use but apparently had not used in some years. Daughter suspects she may have relapsed but no ongoing use. Pt presents with more complex theme of delusions. No additional medical work up available including head CT. CBC and cmp unremarkable. 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 It may be related to dementia process but complexity of delusions and psychosis not the common presentation for dementia that have psychosis early on such as in vascular dementia or LBD. Pt presents as gravely disable to able to care for self due to symptoms of psychosis and delusions. 02/03 increase night time risperidone 2mg po qhs increase cogetin at bedtime to 1mg po qhs. lower daily dose to 0.5mg po daily. continue cogentin 0.5mg po daily. clonazepam as prn olanzapine as prn for agitation 02/04 continue tx. 7/10 continue tx. 02/06 continue current dose of risperidone. NOTE THAT pt can't take doses higher than 3 mg/day of risperidone as higher doses had severe EPS. can use olanzapine as well per court order. 02/07/25: Patient has been agitated yelling loudly exist seeking, delusional thinking her daughter/son outside at the door to pick her up. PRNs given in the morning with mild effect. Patient became agitated, aggressive\, assaultive to 1 of the staff on the floor, yelling and hitting her face so grabbing her neck. Physical was started at 16:31 to 1634. Patient was given IM medication of Zyprexa 10 and Valium 10 with good effect. Tomorrow plan: Patient will be benefit from Valium 10 mg twice a day and Zyprexa 5 mg 3 times a day is added into her scheduled medication as current plan with risperidone is not effective. Patient also having a backup for risperidone if she refused. 02/08/25: Slept most of the morning and last night. In better behavior control. No aggressive behavior. She is quiet, self dialogue, and medication compliant. Due to receive restrain medication yesterday. I did not make any medication change. But the Valium and additional Zyprexa appears to be helpful. 02/09 will try to change keppra to depakote for seizures as keppra may exacerbate psychosis. increase risperidone 1mg po daily and 2mg po qhs. may need to add second antipsychotic. 02/10 continues to present as paranoid with AH. at times declines oral medications, requiring IM back per court order. 02/11 continue tx. 02/12 continue tx. 02/13 continue tx. 02/14: no changes today. Monitor for agitation around confusion about hospitalization 02/15: no changes today, self dialogue more overt/extensive today 02/16 add olanzapine 5mg po qhs. continue risperidone. minimal improvement if any. 02/17 continue tx. 02/18 seems more somnolent with bedtime olanzapine, will continue to monitor. 02/19 cbc showed thrombocytopenia, which is new and suspect related to depakote 02/20 pt appears more sedated since addition of olanzapine at bedtime. She continues to self dialogue. minimal improvement. 02/21: Continue current management and treatment plan. 02/22: continue current management and treatment plan. 02/23 continue tx. may need to affirm HCP try different antipsychotic. 02/24 continue tx. results of LENORE 1:360, pattern homogenous A. 02/25 will try rexulti, lower risperidone. pending coordination of medical care to see if underlying autoimmune condition has anything to do with current presentation. 02/26 discussed with hospital heel room supervisor to dismiss sect 8, HCP invoked and can consent to other treatment. daughter Maricruz give permission to try different antipsychotic. 02/27 decrease risperidone to 1mg po daily, start prolixin 2.5mg po qhs, then increase to BID. continue olanzapine prn for agitation. olanzapine as well per court order. 03/03 pt seen by neurology, added HIV/RPR/LYME, can't have MRI due to cochlear implant. 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 Last Neurology appointment 01/2024. Missed appointment with rheumatology 05/2024, last seen in 02/26/2024. - Pt can't have MRI due to cochlear implant. Had head CT. - continue prolixin 2.5mg po daily, 5mg po qhs. will d/c risperidone, increase prolixin 5mg po BID, back up IM. 03/05 continue tx. 03/06 This policy writer sales spoke with pt's zoo caretaker, Dr. Al obtained collateral information. Will coordinate with neurology and rheumatology once LP results are available. r/o reoccurance of pachymeningitis, lupus or other autoimmune cause for psychosis. 03/07: Continue current regimen and plans. Discontinued one-to-one and put in place 5 minute checks 03/08: Continue current plans and regimen 03/09 continue tx. 03/10: continue current mgmt. continues disorganized and psychotic. see neuro note from today. continue with neuro w/u. 03/11: given zyprexa 5 and valium [address] and head CTA. head CTA WNL, chest CT showed numerous pulmonary nodules up to 10 mm in size. no change in presentation. due to persistent requests for discharge, 3-day notice submitted on her behalf. will work toward HCP affirmation by the court. 03/12: per pulm consult, chest CT more c/w rheumatological process than CA, recommended empiric steroid course. awaiting input from neuro. consider Bx of nodules otherwise. continue current mgmt for now. 03/13: variably calm and agitated. planning for bronchoscopy with pulmonary nodule Bx on sunday. continue current mgmt. case discussed with HCP Maricruz (daughter), who is in agreement with plan. 03/14: CSF with notable findings. will f/u with neuro on sunday. stable presentation for now, remains quite psychotic. continue current mgmt. bronchoscopy sunday. 03/15: no change from yesterday in presentation or plan. 03/16: stable presentation. continues confused, wanting to go home. HCP affirmation tomorrow. continue current mgmt. 03/17: stable presdentation. bronchoscopy pending. continue current mgmt. Reason for continued inpatient stay Substantial Risk for: inability to function Time Spent With Patient Time: Total time managing care of this patient today __25__ minutes.
[2025-03-17 14:57] LABS: SM/Ribonucleoprotein Ab <1.0 NEG AI (<1.0 NEG); Smith Protein <1.0 NEG AI (<1.0 NEG)
[2025-03-17 20:54] VITALS: BP 124/60; PULSE 57; RESP 16; TEMP 36.6; O2SAT 97
[2025-03-18 08:20] VITALS: BP 133/62; PULSE 59; RESP 16; TEMP 36.4; O2SAT 98
[2025-03-18] MEDS: Fluticasone/Vilanterol 200/25 BLST.W.DEV 1 PUFF INHALE (09:11)
[2025-03-18] MEDS: NIFEdipine ER 30 MG TAB.ER.24 PO (09:14)
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
[2025-03-18] MEDS: clonazePAM ODT 0.5 MG TAB.RAPDIS PO (15:59)
[2025-03-18 20:00] VITALS: BP 106/51; PULSE 73; RESP 16; TEMP 36.4; O2SAT 98
[2025-03-19 09:18] VITALS: BP 136/64; PULSE 62; RESP 18; TEMP 36.5; O2SAT 96
[2025-03-19] MEDS: Fluticasone/Vilanterol 200/25 BLST.W.DEV 1 PUFF INHALE (09:22)
[2025-03-19] MEDS: Tiotropium Bromide 2.5 mcg 1 PUFF/2.5 MCG MIST.INHAL INHALE (09:22)
[2025-03-19] MEDS: NIFEdipine ER 30 MG TAB.ER.24 PO (09:23)
[2025-03-19 09:28] LABS: DNAds, Crithidia Antibody Positive (Negative)
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
[2025-03-19 12:03] LABS: DNAds, Crithidia Antibody 1:80 titer (<1:10)
[2025-03-20 08:33] VITALS: BP 129/56; PULSE 60; RESP 20; TEMP 35.9; O2SAT 97
[2025-03-20] MEDS: Fluticasone/Vilanterol 200/25 BLST.W.DEV 1 PUFF INHALE (08:37)
[2025-03-20] MEDS: NIFEdipine ER 30 MG TAB.ER.24 PO (08:39)
[2025-03-20] MEDS: Tiotropium Bromide 2.5 mcg 1 PUFF/2.5 MCG MIST.INHAL INHALE (08:50)
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
[2025-03-20 19:34] VITALS: BP 121/58; PULSE 62; RESP 16; TEMP 36.1; O2SAT 96
[2025-03-20 20:10] VITALS: BP 152/68; PULSE 83; RESP 20; TEMP 36.2; O2SAT 95
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
[2025-03-21 09:25] VITALS: BP 120/56; PULSE 59; RESP 18; TEMP 35.9; O2SAT 97
[2025-03-21] MEDS: Tiotropium Bromide 2.5 mcg 1 PUFF/2.5 MCG MIST.INHAL INHALE (09:26)
[2025-03-21] MEDS: Fluticasone/Vilanterol 200/25 BLST.W.DEV 1 PUFF INHALE (09:26)
[2025-03-21] MEDS: NIFEdipine ER 30 MG TAB.ER.24 PO (09:27)
[2025-03-21 19:35] VITALS: BP 117/88; PULSE 59; RESP 16; TEMP 36.1; O2SAT 98
[2025-03-22] MEDS: NIFEdipine ER 30 MG TAB.ER.24 PO (08:57)
[2025-03-22] MEDS: Tiotropium Bromide 2.5 mcg 1 PUFF/2.5 MCG MIST.INHAL INHALE (08:58)
[2025-03-22] MEDS: Fluticasone/Vilanterol 200/25 BLST.W.DEV 1 PUFF INHALE (08:58)
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
[2025-03-22 20:00] VITALS: BP 119/58; PULSE 63; RESP 16; TEMP 36.9; O2SAT 98
[2025-03-23 09:13] VITALS: BP 139/64; PULSE 60; RESP 20; TEMP 35.8; O2SAT 96
[2025-03-23] MEDS: Tiotropium Bromide 2.5 mcg 1 PUFF/2.5 MCG MIST.INHAL INHALE (09:16)
[2025-03-23] MEDS: Fluticasone/Vilanterol 200/25 BLST.W.DEV 1 PUFF INHALE (09:18)
[2025-03-23] MEDS: NIFEdipine ER 30 MG TAB.ER.24 PO (09:18)
--- NOTE | 2025-03-23 12:41 | P.PNPSI_ITS ---
Subjective Subjective Date of Service: 03/23/25 Reason For Visit: Abnormal CT chest Interim History: stating that her daughter came to get her last night but she couldn't get in because the doors were locked so she had to stay. planning to leave today, redirected to discuss with her daughter. in formed of need to scope her lungs. per staff, talking into her hand as if a telephone. seeing people in her room who should not be there. agitated x1 when thought someone stole her clothes. eating well, got PRNs for agitation a couple times. sleeping well. awaiting insurance approval for bronchoscopy. Mental Status Exam Mental Status Exam Narrative: Appearance: own attire, adequate grooming and hygiene Behavior: calm, cooperative Orientation: alert, confused Memory: impaired Psychomotor Function: no agitation or slowing; no abnormal gestures or movements Speech: loud Mood: good Affect: calm, normo-intense, non-labile Thought Process: questionably organized Thought Content: delusional re daughter trying to pick her up from hospital last night Hallucinations: none noted Insight: impairment Judgment: impairment Impulsivity: none noted Diagnostics Vital Signs (24Hr): Vital Signs - 24 hr 03/22/25 20:00 03/23/25 09:13 Temperature 98.4 F 96.4 F L Pulse Rate 63 60 Respiratory Rate 16 20 Blood Pressure 119/58 L 139/64 Pulse Oximetry 98 96 Oxygen Delivery Method Room Air Room Air BMI result Body Mass Index 31.2 Labs 02/19/25 07:48 03/05/25 07:38 Labs: Laboratory Results - last 48 hr 03/12/25 09:13 Ref Lab Test Result SEE NOTE Imaging Radiology Impressions: ITS Impressions Head CT 03/05/25 15:51 IMPRESSION: 1. No acute intracranial abnormality. 2. Right-sided cochlear nerve implant with associated streak artifact. 3. Right-sided canal wall up mastoidectomy. Electronically signed by: Levi Greer MD 03/05/2025 04:25 PM EDT RP Lumbar Puncture Fluoroscopy 03/09/25 11:50 IMPRESSION: Successful fluoroscopy-guided lumbar puncture performed without immediate complications Electronically signed by: Thompson Andujar MD 03/09/2025 04:06 PM EDT RP Chest CT 03/11/25 11:52 IMPRESSION: 1. Multiple bilateral pulmonary nodules measuring up to 10 mm in size. Further evaluation should be based on Fleischner Society guidelines below. 2. Cardiomegaly. Findings consistent with pulmonary arterial hypertension. 3. No evidence of mediastinal or hilar lymphadenopathy. Fleischner Criteria for pulmonary nodule follow-up SOLID NODULES: Low risk patient: <6mm: no follow-up 6-8mm: 6 month follow-up CT >8mm: PET/Biopsy/ 3 month follow-up CT High risk patient: <6mm: 12 month follow-up CT 6-8mm: 6 month follow-up CT >8mm: PET/Biopsy/ 3 month follow-up CT SUB-SOLID/GROUNDGLASS NODULES: All patients: > or = 6mm: 6 month follow-up CT *Please note that in patients in the following categories, the Fleischner criteria do not apply: Immunocompromised, lung cancer screening population, age below 35, and patients with known malignancy Electronically signed by: Best Clemons MD 03/11/2025 01:45 PM EDT RP Head CTA 03/11/25 11:52 IMPRESSION: Head CT: No acute intracranial abnormality. CT angiogram of the head: No vascular occlusions. Electronically signed by: Gypsy Salamanca MD 03/11/2025 03:02 PM EDT RP Medications Medications Current Medications Acetaminophen (Acetaminophen 325 Mg Tablet) 650 mg PO Q6H PRN PRN Reason: Headache/Pain, Scale 1-10 Last Admin: 03/20/25 08:54 Dose: 650 mg Al Hydroxide/Mg Hydroxide (Magnesium Hydrox/Alum Hydrox 30 Ml Oral.Susp) 30 ml PO Q6H PRN PRN Reason: Heartburn/Nausea Albuterol Sulfate (Albuterol Sulfate 90 Mcg 8 Gm Inhaler) 2 puff INHALE Q4H PRN PRN Reason: Shortness Of Breath Or Wheezing Atorvastatin Calcium (Atorvastatin Calcium 40 Mg Tablet) 40 mg PO DAILY [facility] Last Admin: 03/23/25 09:17 Dose: 40 mg Benztropine Mesylate (Benztropine Mesylate 0.5 Mg Tablet) 0.5 mg PO DAILY [facility] Last Admin: 03/23/25 09:17 Dose: 0.5 mg Benztropine Mesylate (Benztropine Mesylate 1 Mg Tablet) 1 mg PO BEDTIME ALLY Last Admin: 03/22/25 20:13 Dose: 1 mg Clonazepam (Clonazepam Odt 0.5 Mg Tab.Rapdis) 0.5 mg PO BID PRN PRN Reason: severe anxiety/sleep Last Admin: 03/18/25 15:59 Dose: 0.5 mg Fluphenazine HCl (Fluphenazine Hcl 2.5 Mg/Ml 10 Ml Vial) 2.5 mg IM BID PRN PRN Reason: give if refuses oral per HCP Last Admin: 03/05/25 09:42 Dose: 2.5 mg Fluphenazine HCl (Fluphenazine Hcl 2.5 Mg Tablet) 2.5 mg PO DAILY [facility] Last Admin: 03/23/25 09:18 Dose: 2.5 mg Fluphenazine HCl (Fluphenazine Hcl 2.5 Mg Tablet) 5 mg PO BEDTIME [facility] Last Admin: 03/22/25 20:14 Dose: 5 mg Fluticasone/Vilanterol (Fluticasone/Vilanterol 200/25 Blst.W.Dev) 1 puff INHALE RDAILY [facility] Last Admin: 03/23/25 09:18 Dose: 1 puff Guaifenesin (Guaifenesin 200 Mg/10 Ml 10 Ml Liquid) 10 ml PO Q6H PRN PRN Reason: Cough Hydrochlorothiazide (Hydrochlorothiazide 25 Mg Tablet) 25 mg PO DAILY [facility] Last Admin: 03/23/25 09:19 Dose: 25 mg Levetiracetam (Levetiracetam 250 Mg Tablet) 250 mg PO BID [facility] Last Admin: 03/23/25 09:17 Dose: 250 mg Lorazepam (Lorazepam 1 Mg Tablet) 2 mg PO DAILY PRN PRN Reason: before procedure Last Admin: 03/23/25 00:19 Dose: 1 mg Magnesium Hydroxide (Milk Of Magnesia 30 Ml Oral.Susp) 30 ml PO DAILY PRN PRN Reason: Constipation Methimazole (Methimazole 5 Mg Tablet) 5 mg PO DAILY [facility] Last Admin: 03/23/25 09:18 Dose: 5 mg Naloxone HCl (Naloxone Hcl 0.4 Mg/Ml Vial) 0.04 mg IVPUSH Q5M PRN PRN Reason: Excessive sedation or RR < 8 Nifedipine (Nifedipine Er 30 Mg Tab.Er.24) 30 mg PO DAILY [facility]; Protocol Last Admin: 03/23/25 09:18 Dose: 30 mg Olanzapine (Olanzapine 10 Mg Tablet) 10 mg PO Q6H PRN PRN Reason: severe agitation Last Admin: 03/23/25 00:18 Dose: 10 mg Tiotropium Drifton (Tiotropium Drifton 2.5 Mcg 1 Puff/2.5 Mcg Mist.Inhal) 1 puff INHALE RDAILY ALLY Last Admin: 03/23/25 09:16 Dose: 1 puff Trazodone HCl (Trazodone Hcl 50 Mg Tablet) 50 mg PO BEDTIME MRX1 PRN PRN Reason: Insomnia Last Admin: 03/23/25 00:18 Dose: 50 mg Allergies Allergies Allergy/AdvReac Type Severity Reaction Status Date / Time latex Allergy Unknown Verified 03/09/25 11:50 peanut Allergy Unknown Verified 03/09/25 11:50 Penicillins Allergy Unknown Verified 03/09/25 11:50 Assessment & Plan Assessment & Plan (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 - Encephalitis and encephalomyelitis, unspecified (2) Pulmonary nodules: Status: Acute Code(s): R91.8 - Other nonspecific abnormal finding of lung field Assessment and Plan: Bloodwork plan for bronchosopcy, EBUS to sample mediastinal and hilar lymphnodes and transbronchial biopsies to assess for malinancy and sarcoidsosis The bronchoscopy is urgent in order to facilitate her medical treatment (3) 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 Sharif is a 69 year-old woman who presents with a 3 month hx of new onset of psychosis (AH) and combination of paranoid delusions and cap gras delusions. No prior psychiatric hx. She does have of cocaine use but apparently had not used in some years. Daughter suspects she may have relapsed but no ongoing use. Pt presents with more complex theme of delusions. No additional medical work up available including head CT. CBC and cmp unremarkable. 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 It may be related to dementia process but complexity of delusions and psychosis not the common presentation for dementia that have psychosis early on such as in vascular dementia or LBD. Pt presents as gravely disable to able to care for self due to symptoms of psychosis and delusions. 02/03 increase night time risperidone 2mg po qhs increase cogetin at bedtime to 1mg po qhs. lower daily dose to 0.5mg po daily. continue cogentin 0.5mg po daily. clonazepam as prn olanzapine as prn for agitation 02/04 continue tx. 02/05 continue tx. 02/06 continue current dose of risperidone. NOTE THAT pt can't take doses higher than 3 mg/day of risperidone as higher doses had severe EPS. can use olanzapine as well per court order. 02/07/25: Patient has been agitated yelling loudly exist seeking, delusional thinking her daughter/son outside at the door to pick her up. PRNs given in the morning with mild effect. Patient became agitated, aggressive\, assaultive to 1 of the staff on the floor, yelling and hitting her face so grabbing her neck. Physical was started at 16:31 to 1634. Patient was given IM medication of Zyprexa 10 and Valium 10 with good effect. Tomorrow plan: Patient will be benefit from Valium 10 mg twice a day and Zyprexa 5 mg 3 times a day is added into her scheduled medication as current plan with risperidone is not effective. Patient also having a backup for risperidone if she refused. 02/08/25: Slept most of the morning and last night. In better behavior control. No aggressive behavior. She is quiet, self dialogue, and medication compliant. Due to receive restrain medication yesterday. I did not make any medication change. But the Valium and additional Zyprexa appears to be helpful. 02/09 will try to change keppra to depakote for seizures as keppra may exacerbate psychosis. increase risperidone 1mg po daily and 2mg po qhs. may need to add second antipsychotic. 02/10 continues to present as paranoid with AH. at times declines oral medications, requiring IM back per court order. 02/11 continue tx. 02/12 continue tx. 02/13 continue tx. 02/14: no changes today. Monitor for agitation around confusion about hospitalization 02/15: no changes today, self dialogue more overt/extensive today 02/16 add olanzapine 5mg po qhs. continue risperidone. minimal improvement if any. 02/17 continue tx. 02/18 seems more somnolent with bedtime olanzapine, will continue to monitor. 02/19 cbc showed thrombocytopenia, which is new and suspect related to depakote 02/20 pt appears more sedated since addition of olanzapine at bedtime. She continues to self dialogue. minimal improvement. 02/21: Continue current management and treatment plan. 02/22: continue current management and treatment plan. 02/23 continue tx. may need to affirm HCP try different antipsychotic. 02/24 continue tx. results of LENORE 1:360, pattern homogenous A. 02/25 will try rexulti, lower risperidone. pending coordination of medical care to see if underlying autoimmune condition has anything to do with current presentation. 02/26 discussed with hospital commercial attorney to dismiss sect 8, HCP invoked and can consent to other treatment. daughter Maricruz give permission to try different antipsychotic. 02/27 decrease risperidone to 1mg po daily, start prolixin 2.5mg po qhs, then increase to BID. continue olanzapine prn for agitation. olanzapine as well per court order. 03/03 pt seen by neurology, added HIV/RPR/LYME, can't have MRI due to cochlear implant. 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 Last Neurology appointment 01/2024. Missed appointment with rheumatology 05/2024, last seen in 02/26/2024. - Pt can't have MRI due to cochlear implant. Had head CT. - continue prolixin 2.5mg po daily, 5mg po qhs. will d/c risperidone, increase prolixin 5mg po BID, back up IM. 03/05 continue tx. 03/06 This technical document writer spoke with pt's student loan counselor, Dr. Al obtained collateral information. Will coordinate with neurology and rheumatology once LP results are available. r/o reoccurance of pachymeningitis, lupus or other autoimmune cause for psychosis. 03/07: Continue current regimen and plans. Discontinued one-to-one and put in place 5 minute checks 03/08: Continue current plans and regimen 03/09 continue tx. 03/10: continue current mgmt. continues disorganized and psychotic. see neuro note from today. continue with neuro w/u. 03/11: given zyprexa 5 and valium [address] and head CTA. head CTA WNL, chest CT showed numerous pulmonary nodules up to 10 mm in size. no change in presentation. due to persistent requests for discharge, 3-day notice submitted on her behalf. will work toward HCP affirmation by the court. 03/12: per pulm consult, chest CT more c/w rheumatological process than CA, recommended empiric steroid course. awaiting input from neuro. consider Bx of nodules otherwise. continue current mgmt for now. 03/13: variably calm and agitated. planning for bronchoscopy with pulmonary nodule Bx on sunday. continue current mgmt. case discussed with HCP Maricruz (daughter), who is in agreement with plan. 03/14: CSF with notable findings. will f/u with neuro on sunday. stable presentation for now, remains quite psychotic. continue current mgmt. bronchoscopy sunday. 03/15: no change from yesterday in presentation or plan. 03/16: stable presentation. continues confused, wanting to go home. HCP affirmation tomorrow. continue current mgmt. 03/17: stable presdentation. bronchoscopy pending. continue current mgmt. 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 awaiting bronchoscopy. remains psychotic. continue current mgmt for now. 03/20: no change in presentation. still awaiting go-ahead for brochoscopy. continue current mgmt. 03/22: No changes. Noted above. 03/23: awaiting insurance approval for bronchoscopy. stable presentation. Reason for continued inpatient stay Substantial Risk for: inability to function Time Spent With Patient Time: Total time managing care of this patient today __25__ minutes.
[2025-03-24 08:31] LABS: MDA5 Ab <11 SI (<11); NXP-2 (MJ) Ab <11 SI (<11); SRP Ab <11 SI (<11)
[2025-03-24 10:22] VITALS: BP 118/58; PULSE 63; RESP 18; TEMP 36.6; O2SAT 95
[2025-03-24] MEDS: Fluticasone/Vilanterol 200/25 BLST.W.DEV 1 PUFF INHALE (10:23)
[2025-03-24] MEDS: NIFEdipine ER 30 MG TAB.ER.24 PO (10:25)
[2025-03-24] MEDS: Tiotropium Bromide 2.5 mcg 1 PUFF/2.5 MCG MIST.INHAL INHALE (10:25)
--- NOTE | 2025-03-24 13:00 | P.PNPSI_ITS ---
Subjective Subjective Date of Service: 03/24/25 Reason For Visit: Abnormal CT chest Interim History: no issues. believes she is leaving today. per staff, having loud conversations with her hand. eating. +RIS. slept 7 hours. awaiting brook salmon for bronchoscopy. Mental Status Exam Mental Status Exam Narrative: Appearance: own attire, adequate grooming and hygiene Behavior: calm, cooperative Orientation: alert, confused Memory: impaired Psychomotor Function: no agitation or slowing; no abnormal gestures or movements Speech: loud Mood: good Affect: calm, normo-intense, non-labile Thought Process: questionably organized Thought Content: delusional re daughter trying to pick her up from hospital last night Hallucinations: none noted Insight: impairment Judgment: impairment Impulsivity: none noted Diagnostics Vital Signs (24Hr): Vital Signs - 24 hr 03/24/25 10:22 Temperature 97.9 F Pulse Rate 63 Respiratory Rate 18 Blood Pressure 118/58 L Pulse Oximetry 95 Oxygen Delivery Method Room Air BMI result Body Mass Index 31.2 Labs 02/19/25 07:48 03/05/25 07:38 Labs: Laboratory Results - last 48 hr 03/12/25 03/16/25 09:13 09:01 MILAGRO-1 Antibody <11 EJ Antibody <11 Ku Antibody Cancelled OJ Antibody <11 Mi-2 Myostitis Ab Panel Cancelled Mi-2-Alpha Ab <11 Mi-2-Beta Ab <11 NXP-2 Ab <11 PL-7 Antibody <11 PL-12 Antibody <11 SRP Ab <11 MDA5 Ab <11 Myositis Asses MILAGRO-1 Ab Cancelled Myos P155/140 TIF1-g Ab <11 Ref Lab Test Result SEE NOTE Imaging Radiology Impressions: ITS Impressions Head CT 03/05/25 15:51 IMPRESSION: 1. No acute intracranial abnormality. 2. Right-sided cochlear nerve implant with associated streak artifact. 3. Right-sided canal wall up mastoidectomy. Electronically signed by: Levi Greer MD 03/05/2025 04:25 PM EDT RP Lumbar Puncture Fluoroscopy 03/09/25 11:50 IMPRESSION: Successful fluoroscopy-guided lumbar puncture performed without immediate complications Electronically signed by: Thompson Andujar MD 03/09/2025 04:06 PM EDT RP Chest CT 03/11/25 11:52 IMPRESSION: 1. Multiple bilateral pulmonary nodules measuring up to 10 mm in size. Further evaluation should be based on Fleischner Society guidelines below. 2. Cardiomegaly. Findings consistent with pulmonary arterial hypertension. 3. No evidence of mediastinal or hilar lymphadenopathy. Fleischner Criteria for pulmonary nodule follow-up SOLID NODULES: Low risk patient: <6mm: no follow-up 6-8mm: 6 month follow-up CT >8mm: PET/Biopsy/ 3 month follow-up CT High risk patient: <6mm: 12 month follow-up CT 6-8mm: 6 month follow-up CT >8mm: PET/Biopsy/ 3 month follow-up CT SUB-SOLID/GROUNDGLASS NODULES: All patients: > or = 6mm: 6 month follow-up CT *Please note that in patients in the following categories, the Fleischner criteria do not apply: Immunocompromised, lung cancer screening population, age below 35, and patients with known malignancy Electronically signed by: Best Clemons MD 03/11/2025 01:45 PM EDT RP Head CTA 03/11/25 11:52 IMPRESSION: Head CT: No acute intracranial abnormality. CT angiogram of the head: No vascular occlusions. Electronically signed by: Gypsy Salamanca MD 03/11/2025 03:02 PM EDT RP Medications Medications Current Medications Acetaminophen (Acetaminophen 325 Mg Tablet) 650 mg PO Q6H PRN PRN Reason: Headache/Pain, Scale 1-10 Last Admin: 03/24/25 10:23 Dose: 650 mg Al Hydroxide/Mg Hydroxide (Magnesium Hydrox/Alum Hydrox 30 Ml Oral.Susp) 30 ml PO Q6H PRN PRN Reason: Heartburn/Nausea Albuterol Sulfate (Albuterol Sulfate 90 Mcg 8 Gm Inhaler) 2 puff INHALE Q4H PRN PRN Reason: Shortness Of Breath Or Wheezing Atorvastatin Calcium (Atorvastatin Calcium 40 Mg Tablet) 40 mg PO DAILY [facility] Last Admin: 03/24/25 10:24 Dose: 40 mg Benztropine Mesylate (Benztropine Mesylate 0.5 Mg Tablet) 0.5 mg PO DAILY [facility] Last Admin: 03/24/25 10:24 Dose: 0.5 mg Benztropine Mesylate (Benztropine Mesylate 1 Mg Tablet) 1 mg PO BEDTIME [facility] Last Admin: 03/23/25 20:20 Dose: 1 mg Clonazepam (Clonazepam Odt 0.5 Mg Tab.Rapdis) 0.5 mg PO BID PRN PRN Reason: severe anxiety/sleep Last Admin: 03/18/25 15:59 Dose: 0.5 mg Fluphenazine HCl (Fluphenazine Hcl 2.5 Mg/Ml 10 Ml Vial) 2.5 mg IM BID PRN PRN Reason: give if refuses oral per HCP Last Admin: 03/05/25 09:42 Dose: 2.5 mg Fluphenazine HCl (Fluphenazine Hcl 2.5 Mg Tablet) 2.5 mg PO DAILY [facility] Last Admin: 03/24/25 10:24 Dose: 2.5 mg Fluphenazine HCl (Fluphenazine Hcl 2.5 Mg Tablet) 5 mg PO BEDTIME [facility] Last Admin: 03/23/25 20:20 Dose: 5 mg Fluticasone/Vilanterol (Fluticasone/Vilanterol 200/25 Blst.W.Dev) 1 puff INHALE RDAILY [facility] Last Admin: 03/24/25 10:23 Dose: 1 puff Guaifenesin (Guaifenesin 200 Mg/10 Ml 10 Ml Liquid) 10 ml PO Q6H PRN PRN Reason: Cough Hydrochlorothiazide (Hydrochlorothiazide 25 Mg Tablet) 25 mg PO DAILY [facility] Last Admin: 03/24/25 10:25 Dose: 25 mg Levetiracetam (Levetiracetam 250 Mg Tablet) 250 mg PO BID [facility] Last Admin: 03/24/25 10:24 Dose: 250 mg Lorazepam (Lorazepam 1 Mg Tablet) 2 mg PO DAILY PRN PRN Reason: before procedure Last Admin: 03/23/25 00:19 Dose: 1 mg Magnesium Hydroxide (Milk Of Magnesia 30 Ml Oral.Susp) 30 ml PO DAILY PRN PRN Reason: Constipation Methimazole (Methimazole 5 Mg Tablet) 5 mg PO DAILY [facility] Last Admin: 03/24/25 10:24 Dose: 5 mg Naloxone HCl (Naloxone Hcl 0.4 Mg/Ml Vial) 0.04 mg IVPUSH Q5M PRN PRN Reason: Excessive sedation or RR < 8 Nifedipine (Nifedipine Er 30 Mg Tab.Er.24) 30 mg PO DAILY [facility]; Protocol Last Admin: 03/24/25 10:25 Dose: 30 mg Olanzapine (Olanzapine 10 Mg Tablet) 10 mg PO Q6H PRN PRN Reason: severe agitation Last Admin: 03/23/25 00:18 Dose: 10 mg Tiotropium Hurricane (Tiotropium Hurricane 2.5 Mcg 1 Puff/2.5 Mcg Mist.Inhal) 1 puff INHALE RDAILY [facility] Last Admin: 03/24/25 10:25 Dose: 1 puff Trazodone HCl (Trazodone Hcl 50 Mg Tablet) 50 mg PO BEDTIME MRX1 PRN PRN Reason: Insomnia Last Admin: 03/23/25 00:18 Dose: 50 mg Allergies Allergies Allergy/AdvReac Type Severity Reaction Status Date / Time latex Allergy Unknown Verified 03/09/25 11:50 peanut Allergy Unknown Verified 03/09/25 11:50 Penicillins Allergy Unknown Verified 03/09/25 11:50 Assessment & Plan Assessment & Plan (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 - Encephalitis and encephalomyelitis, unspecified (2) Pulmonary nodules: Status: Acute Code(s): R91.8 - Other nonspecific abnormal finding of lung field Assessment and Plan: Bloodwork plan for bronchosopcy, EBUS to sample mediastinal and hilar lymphnodes and transbronchial biopsies to assess for malinancy and sarcoidsosis The bronchoscopy is urgent in order to facilitate her medical treatment (3) 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 Sharif is a 69 year-old woman who presents with a 3 month hx of new onset of psychosis (AH) and combination of paranoid delusions and cap gras delusions. No prior psychiatric hx. She does have of cocaine use but apparently had not used in some years. Daughter suspects she may have relapsed but no ongoing use. Pt presents with more complex theme of delusions. No additional medical work up available including head CT. CBC and cmp unremarkable. 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 It may be related to dementia process but complexity of delusions and psychosis not the common presentation for dementia that have psychosis early on such as in vascular dementia or LBD. Pt presents as gravely disable to able to care for self due to symptoms of psychosis and delusions. 02/03 increase night time risperidone 2mg po qhs increase cogetin at bedtime to 1mg po qhs. lower daily dose to 0.5mg po daily. continue cogentin 0.5mg po daily. clonazepam as prn olanzapine as prn for agitation 02/04 continue tx. 02/05 continue tx. 02/06 continue current dose of risperidone. NOTE THAT pt can't take doses higher than 3 mg/day of risperidone as higher doses had severe EPS. can use olanzapine as well per court order. 02/07/25: Patient has been agitated yelling loudly exist seeking, delusional thinking her daughter/son outside at the door to pick her up. PRNs given in the morning with mild effect. Patient became agitated, aggressive\, assaultive to 1 of the staff on the floor, yelling and hitting her face so grabbing her neck. Physical was started at 16:31 to 1634. Patient was given IM medication of Zyprexa 10 and Valium 10 with good effect. Tomorrow plan: Patient will be benefit from Valium 10 mg twice a day and Zyprexa 5 mg 3 times a day is added into her scheduled medication as current plan with risperidone is not effective. Patient also having a backup for risperidone if she refused. 02/08/25: Slept most of the morning and last night. In better behavior control. No aggressive behavior. She is quiet, self dialogue, and medication compliant. Due to receive restrain medication yesterday. I did not make any medication change. But the Valium and additional Zyprexa appears to be helpful. 02/09 will try to change keppra to depakote for seizures as keppra may exacerbate psychosis. increase risperidone 1mg po daily and 2mg po qhs. may need to add second antipsychotic. 02/10 continues to present as paranoid with AH. at times declines oral medications, requiring IM back per court order. 02/11 continue tx. 02/12 continue tx. 02/13 continue tx. 02/14: no changes today. Monitor for agitation around confusion about hospitalization 02/15: no changes today, self dialogue more overt/extensive today 02/16 add olanzapine 5mg po qhs. continue risperidone. minimal improvement if any. 02/17 continue tx. 02/18 seems more somnolent with bedtime olanzapine, will continue to monitor. 02/19 cbc showed thrombocytopenia, which is new and suspect related to depakote 02/20 pt appears more sedated since addition of olanzapine at bedtime. She continues to self dialogue. minimal improvement. 02/21: Continue current management and treatment plan. 02/22: continue current management and treatment plan. 02/23 continue tx. may need to affirm HCP try different antipsychotic. 02/24 continue tx. results of LENORE 1:360, pattern homogenous A. 02/25 will try rexulti, lower risperidone. pending coordination of medical care to see if underlying autoimmune condition has anything to do with current presentation. 02/26 discussed with hospital assistant county attorney to dismiss sect 8, HCP invoked and can consent to other treatment. daughter Maricruz give permission to try different antipsychotic. 02/27 decrease risperidone to 1mg po daily, start prolixin 2.5mg po qhs, then increase to BID. continue olanzapine prn for agitation. olanzapine as well per court order. 03/03 pt seen by neurology, added HIV/RPR/LYME, can't have MRI due to cochlear implant. 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 Last Neurology appointment 01/2024. Missed appointment with rheumatology 05/2024, last seen in 02/26/2024. - Pt can't have MRI due to cochlear implant. Had head CT. - continue prolixin 2.5mg po daily, 5mg po qhs. will d/c risperidone, increase prolixin 5mg po BID, back up IM. 03/05 continue tx. 03/06 This medical underwriter spoke with pt's software engineering associate manager, Dr. Al obtained collateral information. Will coordinate with neurology and rheumatology once LP results are available. r/o reoccurance of pachymeningitis, lupus or other autoimmune cause for psychosis. 03/07: Continue current regimen and plans. Discontinued one-to-one and put in place 5 minute checks 03/08: Continue current plans and regimen 03/09 continue tx. 03/10: continue current mgmt. continues disorganized and psychotic. see neuro note from today. continue with neuro w/u. 03/11: given zyprexa 5 and valium [address] and head CTA. head CTA WNL, chest CT showed numerous pulmonary nodules up to 10 mm in size. no change in presentation. due to persistent requests for discharge, 3-day notice submitted on her behalf. will work toward HCP affirmation by the court. 03/12: per pulm consult, chest CT more c/w rheumatological process than CA, recommended empiric steroid course. awaiting input from neuro. consider Bx of nodules otherwise. continue current mgmt for now. 03/13: variably calm and agitated. planning for bronchoscopy with pulmonary nodule Bx on sunday. continue current mgmt. case discussed with HCP Maricruz (daughter), who is in agreement with plan. 03/14: CSF with notable findings. will f/u with neuro on sunday. stable presentation for now, remains quite psychotic. continue current mgmt. bronchoscopy sunday. 03/15: no change from yesterday in presentation or plan. 03/16: stable presentation. continues confused, wanting to go home. HCP affirmation tomorrow. continue current mgmt. 03/17: stable presdentation. bronchoscopy pending. continue current mgmt. 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 awaiting bronchoscopy. remains psychotic. continue current mgmt for now. 03/20: no change in presentation. still awaiting go-ahead for brochoscopy. continue current mgmt. 03/22: No changes. Noted above. 03/23: awaiting insurance approval for bronchoscopy. stable presentation. 03/24: as for yesterday. Reason for continued inpatient stay Substantial Risk for: inability to function Time Spent With Patient Time: Total time managing care of this patient today ____ minutes.
[2025-03-24 19:31] VITALS: BP 118/56; PULSE 62; RESP 16; TEMP 36; O2SAT 97
[2025-03-25] MEDS: NIFEdipine ER 30 MG TAB.ER.24 PO (08:29)
--- NOTE | 2025-03-25 09:42 | PC.NURSE ---
Per Giovanna Michelle, Pulmonary slitter service and setter, Parris is scheduled for bronchoscopy on 03/27/25 at 1130, pt to be NPO after midnight on .
--- NOTE | 2025-03-25 11:44 | P.PNPSI_ITS ---
Subjective Subjective Date of Service: 03/25/25 Reason For Visit: Abnormal CT chest Interim History: seated in milieu. more agitated today talking to herself, more profanities and louder. on interview with MD, pt calms and is pleasant. expresses frustration at her daily discharge plans being thwarted some way or another. indicates she is leaving today. no questions or complaints for MD otherwise. per staff, slept 7 hours. no behavioral issues, no changes. Mental Status Exam Mental Status Exam Narrative: Appearance: own attire, adequate grooming and hygiene Behavior: calm, cooperative Orientation: alert, confused Memory: impaired Psychomotor Function: no agitation or slowing; no abnormal gestures or movements Speech: loud Mood: good Affect: calm, normo-intense, non-labile Thought Process: questionably organized Thought Content: delusional re discharge plan today Hallucinations: loudly RIS in milieu Insight: impairment Judgment: impairment Impulsivity: none noted Diagnostics Vital Signs (24Hr): Vital Signs - 24 hr 03/24/25 19:31 Temperature 96.8 F Pulse Rate 62 Respiratory Rate 16 Blood Pressure 118/56 L Pulse Oximetry 97 Oxygen Delivery Method Room Air BMI result Body Mass Index 31.2 Labs 02/19/25 07:48 03/05/25 07:38 Labs: Laboratory Results - last 48 hr 03/16/25 09:01 MILAGRO-1 Antibody <11 EJ Antibody <11 Ku Antibody Cancelled OJ Antibody <11 Mi-2 Myostitis Ab Panel Cancelled Mi-2-Alpha Ab <11 Mi-2-Beta Ab <11 NXP-2 Ab <11 PL-7 Antibody <11 PL-12 Antibody <11 SRP Ab <11 MDA5 Ab <11 Myositis Asses MILAGRO-1 Ab Cancelled Myos P155/140 TIF1-g Ab <11 Imaging Radiology Impressions: ITS Impressions Head CT 03/05/25 15:51 IMPRESSION: 1. No acute intracranial abnormality. 2. Right-sided cochlear nerve implant with associated streak artifact. 3. Right-sided canal wall up mastoidectomy. Electronically signed by: Levi Greer MD 03/05/2025 04:25 PM EDT Lumbar Puncture Fluoroscopy 03/09/25 11:50 IMPRESSION: Successful fluoroscopy-guided lumbar puncture performed without immediate complications Electronically signed by: Thompson Andujar MD 03/09/2025 04:06 PM EDT RP Chest CT 03/11/25 11:52 IMPRESSION: 1. Multiple bilateral pulmonary nodules measuring up to 10 mm in size. Further evaluation should be based on Fleischner Society guidelines below. 2. Cardiomegaly. Findings consistent with pulmonary arterial hypertension. 3. No evidence of mediastinal or hilar lymphadenopathy. Fleischner Criteria for pulmonary nodule follow-up SOLID NODULES: Low risk patient: <6mm: no follow-up 6-8mm: 6 month follow-up CT >8mm: PET/Biopsy/ 3 month follow-up CT High risk patient: <6mm: 12 month follow-up CT 6-8mm: 6 month follow-up CT >8mm: PET/Biopsy/ 3 month follow-up CT SUB-SOLID/GROUNDGLASS NODULES: All patients: > or = 6mm: 6 month follow-up CT *Please note that in patients in the following categories, the Fleischner criteria do not apply: Immunocompromised, lung cancer screening population, age below 35, and patients with known malignancy Electronically signed by: Best Clemons MD 03/11/2025 01:45 PM EDT RP Head CTA 03/11/25 11:52 IMPRESSION: Head CT: No acute intracranial abnormality. CT angiogram of the head: No vascular occlusions. Electronically signed by: Gypsy Salamanca MD 03/11/2025 03:02 PM EDT RP Medications Medications Current Medications Acetaminophen (Acetaminophen 325 Mg Tablet) 650 mg PO Q6H PRN PRN Reason: Headache/Pain, Scale 1-10 Last Admin: 03/24/25 10:23 Dose: 650 mg Al Hydroxide/Mg Hydroxide (Magnesium Hydrox/Alum Hydrox 30 Ml Oral.Susp) 30 ml PO Q6H PRN PRN Reason: Heartburn/Nausea Albuterol Sulfate (Albuterol Sulfate 90 Mcg 8 Gm Inhaler) 2 puff INHALE Q4H PRN PRN Reason: Shortness Of Breath Or Wheezing Atorvastatin Calcium (Atorvastatin Calcium 40 Mg Tablet) 40 mg PO DAILY [facility] Last Admin: 03/25/25 08:29 Dose: 40 mg Benztropine Mesylate (Benztropine Mesylate 0.5 Mg Tablet) 0.5 mg PO DAILY [facility] Last Admin: 03/25/25 08:29 Dose: 0.5 mg Benztropine Mesylate (Benztropine Mesylate 1 Mg Tablet) 1 mg PO BEDTIME [facility] Last Admin: 03/24/25 19:34 Dose: 1 mg Clonazepam (Clonazepam Odt 0.5 Mg Tab.Rapdis) 0.5 mg PO BID PRN PRN Reason: severe anxiety/sleep Last Admin: 03/18/25 15:59 Dose: 0.5 mg Fluphenazine HCl (Fluphenazine Hcl 2.5 Mg/Ml 10 Ml Vial) 2.5 mg IM BID PRN PRN Reason: give if refuses oral per HCP Last Admin: 03/05/25 09:42 Dose: 2.5 mg Fluphenazine HCl (Fluphenazine Hcl 2.5 Mg Tablet) 2.5 mg PO DAILY [facility] Last Admin: 03/25/25 08:29 Dose: 2.5 mg Fluphenazine HCl (Fluphenazine Hcl 2.5 Mg Tablet) 5 mg PO BEDTIME [facility] Last Admin: 03/24/25 19:34 Dose: 5 mg Fluticasone/Vilanterol (Fluticasone/Vilanterol 200/25 Blst.W.Dev) 1 puff INHALE RDAILY [facility] Last Admin: 03/25/25 08:34 Dose: Not Given Guaifenesin (Guaifenesin 200 Mg/10 Ml 10 Ml Liquid) 10 ml PO Q6H PRN PRN Reason: Cough Hydrochlorothiazide (Hydrochlorothiazide 25 Mg Tablet) 25 mg PO DAILY [facility] Last Admin: 03/25/25 08:29 Dose: 25 mg Levetiracetam (Levetiracetam 250 Mg Tablet) 250 mg PO BID [facility] Last Admin: 03/25/25 08:29 Dose: 250 mg Lorazepam (Lorazepam 1 Mg Tablet) 2 mg PO DAILY PRN PRN Reason: before procedure Last Admin: 03/23/25 00:19 Dose: 1 mg Magnesium Hydroxide (Milk Of Magnesia 30 Ml Oral.Susp) 30 ml PO DAILY PRN PRN Reason: Constipation Methimazole (Methimazole 5 Mg Tablet) 5 mg PO DAILY [facility] Last Admin: 03/25/25 08:29 Dose: 5 mg Naloxone HCl (Naloxone Hcl 0.4 Mg/Ml Vial) 0.04 mg IVPUSH Q5M PRN PRN Reason: Excessive sedation or RR < 8 Nifedipine (Nifedipine Er 30 Mg Tab.Er.24) 30 mg PO DAILY [facility]; Protocol Last Admin: 03/25/25 08:29 Dose: 30 mg Olanzapine (Olanzapine 10 Mg Tablet) 10 mg PO Q6H PRN PRN Reason: severe agitation Last Admin: 03/23/25 00:18 Dose: 10 mg Tiotropium [place] (Tiotropium [place] 2.5 Mcg 1 Puff/2.5 Mcg Mist.Inhal) 1 puff INHALE RDAILY [facility] Last Admin: 03/25/25 08:35 Dose: Not Given Trazodone HCl (Trazodone Hcl 50 Mg Tablet) 50 mg PO BEDTIME MRX1 PRN PRN Reason: Insomnia Last Admin: 03/23/25 00:18 Dose: 50 mg Allergies Allergies Allergy/AdvReac Type Severity Reaction Status Date / Time latex Allergy Unknown Verified 03/09/25 11:50 peanut Allergy Unknown Verified 03/09/25 11:50 Penicillins Allergy Unknown Verified 03/09/25 11:50 Assessment & Plan Assessment & Plan (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 - Encephalitis and encephalomyelitis, unspecified (2) Pulmonary nodules: Status: Acute Code(s): R91.8 - Other nonspecific abnormal finding of lung field Assessment and Plan: Bloodwork plan for bronchosopcy, EBUS to sample mediastinal and hilar lymphnodes and transbronchial biopsies to assess for malinancy and sarcoidsosis The bronchoscopy is urgent in order to facilitate her medical treatment (3) 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 Sharif is a 69 year-old woman who presents with a 3 month hx of new onset of psychosis (AH) and combination of paranoid delusions and cap gras delusions. No prior psychiatric hx. She does have of cocaine use but apparently had not used in some years. Daughter suspects she may have relapsed but no ongoing use. Pt presents with more complex theme of delusions. No additional medical work up available including head CT. CBC and cmp unremarkable. 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 It may be related to dementia process but complexity of delusions and psychosis not the common presentation for dementia that have psychosis early on such as in vascular dementia or LBD. Pt presents as gravely disable to able to care for self due to symptoms of psychosis and delusions. 02/03 increase night time risperidone 2mg po qhs increase cogetin at bedtime to 1mg po qhs. lower daily dose to 0.5mg po daily. continue cogentin 0.5mg po daily. clonazepam as prn olanzapine as prn for agitation 02/04 continue tx. 02/05 continue tx. 02/06 continue current dose of risperidone. NOTE THAT pt can't take doses higher than 3 mg/day of risperidone as higher doses had severe EPS. can use olanzapine as well per court order. 02/07/25: Patient has been agitated yelling loudly exist seeking, delusional thinking her daughter/son outside at the door to pick her up. PRNs given in the morning with mild effect. Patient became agitated, aggressive\, assaultive to 1 of the staff on the floor, yelling and hitting her face so grabbing her neck. Physical was started at 16:31 to 1634. Patient was given IM medication of Zyprexa 10 and Valium 10 with good effect. Tomorrow plan: Patient will be benefit from Valium 10 mg twice a day and Zyprexa 5 mg 3 times a day is added into her scheduled medication as current plan with risperidone is not effective. Patient also having a backup for risperidone if she refused. 02/08/25: Slept most of the morning and last night. In better behavior control. No aggressive behavior. She is quiet, self dialogue, and medication compliant. Due to receive restrain medication yesterday. I did not make any medication change. But the Valium and additional Zyprexa appears to be helpful. 02/09 will try to change keppra to depakote for seizures as keppra may exacerbate psychosis. increase risperidone 1mg po daily and 2mg po qhs. may need to add second antipsychotic. 02/10 continues to present as paranoid with AH. at times declines oral medications, requiring IM back per court order. 02/11 continue tx. 02/12 continue tx. 02/13 continue tx. 02/14: no changes today. Monitor for agitation around confusion about hospitalization 02/15: no changes today, self dialogue more overt/extensive today 02/16 add olanzapine 5mg po qhs. continue risperidone. minimal improvement if any. 02/17 continue tx. 02/18 seems more somnolent with bedtime olanzapine, will continue to monitor. 02/19 cbc showed thrombocytopenia, which is new and suspect related to depakote 02/20 pt appears more sedated since addition of olanzapine at bedtime. She continues to self dialogue. minimal improvement. 02/21: Continue current management and treatment plan. 02/22: continue current management and treatment plan. 02/23 continue tx. may need to affirm HCP try different antipsychotic. 02/24 continue tx. results of LENORE 1:360, pattern homogenous A. 02/25 will try rexulti, lower risperidone. pending coordination of medical care to see if underlying autoimmune condition has anything to do with current presentation. 02/26 discussed with hospital field kiln burner to dismiss sect 8, HCP invoked and can consent to other treatment. daughter Maricruz give permission to try different antipsychotic. 02/27 decrease risperidone to 1mg po daily, start prolixin 2.5mg po qhs, then increase to BID. continue olanzapine prn for agitation. olanzapine as well per court order. 03/03 pt seen by neurology, added HIV/RPR/LYME, can't have MRI due to cochlear implant. 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 Last Neurology appointment 01/2024. Missed appointment with rheumatology 05/2024, last seen in 02/26/2024. - Pt can't have MRI due to cochlear implant. Had head CT. - continue prolixin 2.5mg po daily, 5mg po qhs. will d/c risperidone, increase prolixin 5mg po BID, back up IM. 03/05 continue tx. 03/06 This personal lines underwriter spoke with pt's television equipment operator, Dr. Al obtained collateral information. Will coordinate with neurology and rheumatology once LP results are available. r/o reoccurance of pachymeningitis, lupus or other autoimmune cause for psychosis. 03/07: Continue current regimen and plans. Discontinued one-to-one and put in place 5 minute checks 03/08: Continue current plans and regimen 03/09 continue tx. 03/10: continue current mgmt. continues disorganized and psychotic. see neuro note from today. continue with neuro w/u. 03/11: given zyprexa 5 and valium [address] and head CTA. head CTA WNL, chest CT showed numerous pulmonary nodules up to 10 mm in size. no change in presentation. due to persistent requests for discharge, 3-day notice submitted on her behalf. will work toward HCP affirmation by the court. 03/12: per pulm consult, chest CT more c/w rheumatological process than CA, recommended empiric steroid course. awaiting input from neuro. consider Bx of nodules otherwise. continue current mgmt for now. 03/13: variably calm and agitated. planning for bronchoscopy with pulmonary nodule Bx on sunday. continue current mgmt. case discussed with HCP Maricruz (daughter), who is in agreement with plan. 03/14: CSF with notable findings. will f/u with neuro on sunday. stable presentation for now, remains quite psychotic. continue current mgmt. bronchoscopy sunday. 03/15: no change from yesterday in presentation or plan. 03/16: stable presentation. continues confused, wanting to go home. HCP affirmation tomorrow. continue current mgmt. 03/17: stable presdentation. bronchoscopy pending. continue current mgmt. 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 awaiting bronchoscopy. remains psychotic. continue current mgmt for now. 03/20: no change in presentation. still awaiting go-ahead for brochoscopy. continue current mgmt. 03/22: No changes. Noted above. 03/23: awaiting insurance approval for bronchoscopy. stable presentation. 03/24: as for yesterday. 03/25: loudly RIS in milieu today. bronchoscopy scheduled for sunday at 1130. NPO past MN night. stable presentation. continue current mgmt. Reason for continued inpatient stay Substantial Risk for: inability to function Time Spent With Patient Time: Total time managing care of this patient today __25__ minutes.
[2025-03-25] MEDS: clonazePAM ODT 0.5 MG TAB.RAPDIS PO (14:10)
[2025-03-25 20:46] VITALS: BP 146/65; PULSE 76; RESP 18; TEMP 36.4; O2SAT 95
[2025-03-26] MEDS: clonazePAM ODT 0.5 MG TAB.RAPDIS PO (00:14)
[2025-03-26 08:00] VITALS: BP 119/58; PULSE 84; RESP 15; TEMP 36.4; O2SAT 95
[2025-03-26 08:05] VITALS: BP 119/58
[2025-03-26] MEDS: NIFEdipine ER 30 MG TAB.ER.24 PO (08:05)
[2025-03-26 08:06] VITALS: BP 119/58
--- NOTE | 2025-03-26 10:55 | P.PNPSI_ITS ---
Subjective Subjective Date of Service: 03/26/25 Reason For Visit: Abnormal CT chest Subjective Notes: Section 8 Interim History: pt had disrupted sleep. She presents as more disorganized than usual, restless, impulsively walking with walker without awareness of risk for falls. yelling, very poor attention and more than usual difficult to engage. She is now on a one to one due to risk of fall and impulsive behaviors. Review of Systems Review of Systems nothing of note Yes all other systems are reviewed and are negative, Unobtainable due to mental status and Other (patient refused to answer ROS questions) Constitutional: Reports as per HPI Eyes: Reports as per HPI Reports as per HPI Cardiovascular: Reports as per HPI Respiratory: Reports as per HPI Gastrointestinal: Reports as per HPI Musculoskeletal: Reports as per HPI Skin/Breast: Reports as per HPI Reports as per HPI and Reports confusion Psychiatric: Reports as per HPI and Reports confusion Endocrine: Reports as per HPI Hematologic/Lymphatic: Reports as per HPI Allergic/Immunologic: Reports as per HPI Mental Status Exam Mental Status Exam Narrative: Appearance: own attire, adequate grooming and hygiene Behavior: restless, Orientation: alert, confused Memory: impaired Psychomotor Function: impulsive and restless, getting up, attempting to walk Speech: loud Mood: good Affect: calm, normo-intense, non-labile Thought Process: questionably organized Thought Content: paranoid delusions. Hallucinations: loudly RIS in milieu Insight: impairment Judgment: impairment Impulsivity: none noted Diagnostics Vital Signs (24Hr): Vital Signs - 24 hr 03/25/25 20:46 03/26/25 08:00 03/26/25 08:05 Temperature 97.5 F 97.5 F Pulse Rate 76 84 Respiratory Rate 18 15 Blood Pressure 146/65 H 119/58 L 119/58 L Pulse Oximetry 95 95 Oxygen Delivery Method Room Air Room Air 03/26/25 08:06 Temperature Pulse Rate Respiratory Rate Blood Pressure 119/58 L Pulse Oximetry Oxygen Delivery Method BMI result Body Mass Index 31.2 Labs 02/19/25 07:48 03/05/25 07:38 Imaging Radiology Impressions: ITS Impressions Head CT 03/05/25 15:51 IMPRESSION: 1. No acute intracranial abnormality. 2. Right-sided cochlear nerve implant with associated streak artifact. 3. Right-sided canal wall up mastoidectomy. Electronically signed by: Levi Greer MD 03/05/2025 04:25 PM EDT RP Lumbar Puncture Fluoroscopy 03/09/25 11:50 IMPRESSION: Successful fluoroscopy-guided lumbar puncture performed without immediate complications Electronically signed by: Thompson Andujar MD 03/09/2025 04:06 PM EDT RP Chest CT 03/11/25 11:52 IMPRESSION: 1. Multiple bilateral pulmonary nodules measuring up to 10 mm in size. Further evaluation should be based on Fleischner Society guidelines below. 2. Cardiomegaly. Findings consistent with pulmonary arterial hypertension. 3. No evidence of mediastinal or hilar lymphadenopathy. Fleischner Criteria for pulmonary nodule follow-up SOLID NODULES: Low risk patient: <6mm: no follow-up 6-8mm: 6 month follow-up CT >8mm: PET/Biopsy/ 3 month follow-up CT High risk patient: <6mm: 12 month follow-up CT 6-8mm: 6 month follow-up CT >8mm: PET/Biopsy/ 3 month follow-up CT SUB-SOLID/GROUNDGLASS NODULES: All patients: > or = 6mm: 6 month follow-up CT *Please note that in patients in the following categories, the Fleischner criteria do not apply: Immunocompromised, lung cancer screening population, age below 35, and patients with known malignancy Electronically signed by: Best Clemons MD 03/11/2025 01:45 PM EDT RP Head CTA 03/11/25 11:52 IMPRESSION: Head CT: No acute intracranial abnormality. CT angiogram of the head: No vascular occlusions. Electronically signed by: Gypsy Salamanca MD 03/11/2025 03:02 PM EDT RP Medications Medications Current Medications Acetaminophen (Acetaminophen 325 Mg Tablet) 650 mg PO Q6H PRN PRN Reason: Headache/Pain, Scale 1-10 Last Admin: 03/24/25 10:23 Dose: 650 mg Al Hydroxide/Mg Hydroxide (Magnesium Hydrox/Alum Hydrox 30 Ml Oral.Susp) 30 ml PO Q6H PRN PRN Reason: Heartburn/Nausea Albuterol Sulfate (Albuterol Sulfate 90 Mcg 8 Gm Inhaler) 2 puff INHALE Q4H PRN PRN Reason: Shortness Of Breath Or Wheezing Atorvastatin Calcium (Atorvastatin Calcium 40 Mg Tablet) 40 mg PO DAILY [facility] Last Admin: 03/26/25 08:05 Dose: 40 mg Benztropine Mesylate (Benztropine Mesylate 0.5 Mg Tablet) 0.5 mg PO DAILY [facility] Last Admin: 03/26/25 08:06 Dose: 0.5 mg Benztropine Mesylate (Benztropine Mesylate 1 Mg Tablet) 1 mg PO BEDTIME [facility] Last Admin: 03/25/25 22:15 Dose: 1 mg Clonazepam (Clonazepam Odt 0.5 Mg Tab.Rapdis) 0.5 mg PO BID PRN PRN Reason: severe anxiety/sleep Last Admin: 03/26/25 00:14 Dose: 0.5 mg Fluphenazine HCl (Fluphenazine Hcl 2.5 Mg/Ml 10 Ml Vial) 2.5 mg IM BID PRN PRN Reason: give if refuses oral per HCP Last Admin: 03/05/25 09:42 Dose: 2.5 mg Fluphenazine HCl (Fluphenazine Hcl 2.5 Mg Tablet) 2.5 mg PO DAILY [facility] Last Admin: 03/26/25 08:05 Dose: 2.5 mg Fluphenazine HCl (Fluphenazine Hcl 2.5 Mg Tablet) 5 mg PO BEDTIME [facility] Last Admin: 03/25/25 22:15 Dose: 5 mg Fluticasone/Vilanterol (Fluticasone/Vilanterol 200/25 Blst.W.Dev) 1 puff INHALE RDAILY [facility] Last Admin: 03/26/25 08:25 Dose: Not Given Guaifenesin (Guaifenesin 200 Mg/10 Ml 10 Ml Liquid) 10 ml PO Q6H PRN PRN Reason: Cough Hydrochlorothiazide (Hydrochlorothiazide 25 Mg Tablet) 25 mg PO DAILY [facility] Last Admin: 03/26/25 08:06 Dose: 25 mg Levetiracetam (Levetiracetam 250 Mg Tablet) 250 mg PO BID [facility] Last Admin: 03/26/25 08:06 Dose: 250 mg Lorazepam (Lorazepam 1 Mg Tablet) 2 mg PO DAILY PRN PRN Reason: before procedure Last Admin: 03/23/25 00:19 Dose: 1 mg Magnesium Hydroxide (Milk Of Magnesia 30 Ml Oral.Susp) 30 ml PO DAILY PRN PRN Reason: Constipation Methimazole (Methimazole 5 Mg Tablet) 5 mg PO DAILY [facility] Last Admin: 03/26/25 08:06 Dose: 5 mg Naloxone HCl (Naloxone Hcl 0.4 Mg/Ml Vial) 0.04 mg IVPUSH Q5M PRN PRN Reason: Excessive sedation or RR < 8 Nifedipine (Nifedipine Er 30 Mg Tab.Er.24) 30 mg PO DAILY [facility]; Protocol Last Admin: 03/26/25 08:05 Dose: 30 mg Olanzapine (Olanzapine 10 Mg Tablet) 10 mg PO Q6H PRN PRN Reason: severe agitation Last Admin: 03/26/25 08:06 Dose: 10 mg Tiotropium Ovando (Tiotropium Ovando 2.5 Mcg 1 Puff/2.5 Mcg Mist.Inhal) 1 puff INHALE RDAILY [facility] Last Admin: 03/26/25 08:25 Dose: Not Given Trazodone HCl (Trazodone Hcl 50 Mg Tablet) 50 mg PO BEDTIME MRX1 PRN PRN Reason: Insomnia Last Admin: 03/25/25 22:15 Dose: 50 mg Allergies Allergies Allergy/AdvReac Type Severity Reaction Status Date / Time latex Allergy Unknown Verified 03/09/25 11:50 peanut Allergy Unknown Verified 03/09/25 11:50 Penicillins Allergy Unknown Verified 03/09/25 11:50 Assessment & Plan Assessment & Plan (1) Psychosis: Status: Acute Code(s): F29 - Unspecified psychosis not due to a substance or known physiological condition (2) Pulmonary nodules: Status: Acute Code(s): R91.8 - Other nonspecific abnormal finding of lung field Assessment and Plan: Bloodwork plan for bronchosopcy, EBUS to sample mediastinal and hilar lymphnodes and transbronchial biopsies to assess for malinancy and sarcoidsosis The bronchoscopy is urgent in order to facilitate her medical treatment (3) Rheumatoid arthritis involving hand with positive rheumatoid factor: Status: Acute Code(s): M05.749 - Rheumatoid arthritis with rheumatoid factor of unspecified hand without organ or systems involvement Plan Mrs. Sharif is a 69 year-old woman who presents with a 3 month hx of new onset of psychosis (AH) and combination of paranoid delusions and cap gras delusions. No prior psychiatric hx. She does have of cocaine use but apparently had not used in some years. Daughter suspects she may have relapsed but no ongoing use. Pt presents with more complex theme of delusions. No additional medical work up available including head CT. CBC and cmp unremarkable. 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 It may be related to dementia process but complexity of delusions and psychosis not the common presentation for dementia that have psychosis early on such as in vascular dementia or LBD. Pt presents as gravely disable to able to care for self due to symptoms of psychosis and delusions. 02/03 increase night time risperidone 2mg po qhs increase cogetin at bedtime to 1mg po qhs. lower daily dose to 0.5mg po daily. continue cogentin 0.5mg po daily. clonazepam as prn olanzapine as prn for agitation 02/04 continue tx. 02/05 continue tx. 02/06 continue current dose of risperidone. NOTE THAT pt can't take doses higher than 3 mg/day of risperidone as higher doses had severe EPS. can use olanzapine as well per court order. 02/07/25: Patient has been agitated yelling loudly exist seeking, delusional thinking her daughter/son outside at the door to pick her up. PRNs given in the morning with mild effect. Patient became agitated, aggressive\, assaultive to 1 of the staff on the floor, yelling and hitting her face so grabbing her neck. Physical was started at 16:31 to 1634. Patient was given IM medication of Zyprexa 10 and Valium 10 with good effect. Tomorrow plan: Patient will be benefit from Valium 10 mg twice a day and Zyprexa 5 mg 3 times a day is added into her scheduled medication as current plan with risperidone is not effective. Patient also having a backup for risperidone if she refused. 02/08/25: Slept most of the morning and last night. In better behavior control. No aggressive behavior. She is quiet, self dialogue, and medication compliant. Due to receive restrain medication yesterday. I did not make any medication change. But the Valium and additional Zyprexa appears to be helpful. 02/09 will try to change keppra to depakote for seizures as keppra may exacerbate psychosis. increase risperidone 1mg po daily and 2mg po qhs. may need to add second antipsychotic. 02/10 continues to present as paranoid with AH. at times declines oral medications, requiring IM back per court order. 02/11 continue tx. 02/12 continue tx. 02/13 continue tx. 02/14: no changes today. Monitor for agitation around confusion about hospitalization 02/15: no changes today, self dialogue more overt/extensive today 02/16 add olanzapine 5mg po qhs. continue risperidone. minimal improvement if any. 02/17 continue tx. 02/18 seems more somnolent with bedtime olanzapine, will continue to monitor. 02/19 cbc showed thrombocytopenia, which is new and suspect related to depakote 02/20 pt appears more sedated since addition of olanzapine at bedtime. She continues to self dialogue. minimal improvement. 02/21: Continue current management and treatment plan. 02/22: continue current management and treatment plan. 02/23 continue tx. may need to affirm HCP try different antipsychotic. 02/24 continue tx. results of LENORE 1:360, pattern homogenous A. 02/25 will try rexulti, lower risperidone. pending coordination of medical care to see if underlying autoimmune condition has anything to do with current presentation. 02/26 discussed with hospital seo coordinator to dismiss sect 8, HCP invoked and can consent to other treatment. daughter Maricruz give permission to try different antipsychotic. 02/27 decrease risperidone to 1mg po daily, start prolixin 2.5mg po qhs, then increase to BID. continue olanzapine prn for agitation. olanzapine as well per court order. 03/03 pt seen by neurology, added HIV/RPR/LYME, can't have MRI due to cochlear implant. 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 Last Neurology appointment 01/2024. Missed appointment with rheumatology 05/2024, last seen in 02/26/2024. - Pt can't have MRI due to cochlear implant. Had head CT. - continue prolixin 2.5mg po daily, 5mg po qhs. will d/c risperidone, increase prolixin 5mg po BID, back up IM. 03/05 continue tx. 03/06 This fiction writer spoke with pt's writing tutor, Dr. Al obtained collateral information. Will coordinate with neurology and rheumatology once LP results are available. r/o reoccurance of pachymeningitis, lupus or other autoimmune cause for psychosis. 03/07: Continue current regimen and plans. Discontinued one-to-one and put in place 5 minute checks 03/08: Continue current plans and regimen 03/09 continue tx. 03/10: continue current mgmt. continues disorganized and psychotic. see neuro note from today. continue with neuro w/u. 03/11: given zyprexa 5 and valium [address] and head CTA. head CTA WNL, chest CT showed numerous pulmonary nodules up to 10 mm in size. no change in presentation. due to persistent requests for discharge, 3-day notice submitted on her behalf. will work toward HCP affirmation by the court. 03/12: per pulm consult, chest CT more c/w rheumatological process than CA, recommended empiric steroid course. awaiting input from neuro. consider Bx of nodules otherwise. continue current mgmt for now. 03/13: variably calm and agitated. planning for bronchoscopy with pulmonary nodule Bx on sunday. continue current mgmt. case discussed with HCP Maricruz (daughter), who is in agreement with plan. 03/14: CSF with notable findings. will f/u with neuro on sunday. stable presentation for now, remains quite psychotic. continue current mgmt. bronchoscopy sunday. 03/15: no change from yesterday in presentation or plan. 03/16: stable presentation. continues confused, wanting to go home. HCP affirmation tomorrow. continue current mgmt. 03/17: stable presdentation. bronchoscopy pending. continue current mgmt. 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 awaiting bronchoscopy. remains psychotic. continue current mgmt for now. 03/20: no change in presentation. still awaiting go-ahead for brochoscopy. continue current mgmt. 03/22: No changes. Noted above. 03/23: awaiting insurance approval for bronchoscopy. stable presentation. 03/24: as for yesterday. 03/25: loudly RIS in milieu today. bronchoscopy scheduled for sunday at 1130. NPO past MN night. stable presentation. continue current mgmt. 03/26 pt presents as more disorganized and inattentive than usual showing more signs of delirious behavior. bronchoscopy was canceled,due to shortage of needles to complete biopsy. will order cbc, cmp, ammonia levels given increase disorganized behavior and worsening attention pointing at a more delirious presentation. * Review of results from LP showing negative results for meningitis panel/paraneoplastic panel (including most common antibody found in SLC which is EARL 1 which was negative), elevated protein in CSF 131 without leukocytosis, also elevated CSF/serum IgG index. elevated anti-ds dna titer 1:80. Such results may point more to a rheumatological condition than infectious condition or malignancy. Mrs. Sharif's OP rhematologist, Dr. Al recommends trial of prednisone 40mg po daily at least for 2 weeks. Reason for continued inpatient stay Substantial Risk for: inability to function Time Spent With Patient Time: Total time managing care of this patient today ____ minutes.
--- NOTE | 2025-03-27 07:41 | PC.NURSE ---
Received phone call on 03/26/[address] Márquez's office, the bronchoscopy has to be cancelled/rescheduled at this time, they don't have the correct size needles in order to perform the scope. They will reschedule when the needles come in, and will let us know. Parris's daughter Maricruz notified via phone call.
[2025-03-27 08:38] VITALS: BP 125/60; PULSE 59; RESP 20; TEMP 36.6; O2SAT 96
[2025-03-27] MEDS: NIFEdipine ER 30 MG TAB.ER.24 PO (08:41)
[2025-03-27] MEDS: Fluticasone/Vilanterol 200/25 BLST.W.DEV 1 PUFF INHALE (08:46)
[2025-03-27] MEDS: Tiotropium Bromide 2.5 mcg 1 PUFF/2.5 MCG MIST.INHAL INHALE (08:49)
[2025-03-27 10:57] LABS: VGKC Ab CSF <20
[2025-03-27 10:59] LABS: ANNA1 (HU) Ab CSF NEGATIVE; MA2/TA Ab CSF NEGATIVE; Myelin Ab CSF NEGATIVE; PCA TR (DNER) Ab CSF NEGATIVE
[2025-03-27 11:00] LABS: AGNA (SOX1) Ab CSF NEGATIVE; ANNA2 (RI) Ab CSF NEGATIVE; ANNA3 Ab CSF NEGATIVE; Amphiphysin Ab CSF NEGATIVE; Aquaporin 4 Ab CSF NEGATIVE; CRMP5 (CV2) Ab CSF NEGATIVE; GAD65 Ab CSF NEGATIVE; PCA1 (YO) Ab CSF NEGATIVE; PCA2 Ab CSF NEGATIVE
[2025-03-27 11:01] LABS: AMPAR1 Ab CSF NEGATIVE; AMPAR2 Ab CSF NEGATIVE; Aquaporin (AQP4) IgG CSF NEGATIVE; CASPR2 Ab CSF NEGATIVE; GABABR Ab CSF NEGATIVE; LGI1 Ab CSF NEGATIVE; NMDAR1 Ab CSF NEGATIVE
--- NOTE | 2025-03-27 14:03 | P.PNPSI_ITS ---
Subjective Subjective Date of Service: 03/27/25 Reason For Visit: Abnormal CT chest Subjective Notes: Section 8 and Conditional Voluntary Healthcare Proxy: Yes Interim History: Pt had some difficulty sleeping appears more disorganized than usal, restless, more difficult to engage. She is taking medications as prescribed. no improvement in terms of psychosis and paranoid delusions, continues to self dialogued. VS stable. Review of Systems Review of Systems nothing of note Yes all other systems are reviewed and are negative, Unobtainable due to mental status and Other (patient refused to answer ROS questions) Constitutional: Reports as per HPI Eyes: Reports as per HPI Reports as per HPI Cardiovascular: Reports as per HPI Respiratory: Reports as per HPI Gastrointestinal: Reports as per HPI Musculoskeletal: Reports as per HPI Skin/Breast: Reports as per HPI Reports as per HPI and Reports confusion Psychiatric: Reports as per HPI and Reports confusion Endocrine: Reports as per HPI Hematologic/Lymphatic: Reports as per HPI Allergic/Immunologic: Reports as per HPI Mental Status Exam Mental Status Exam Narrative: Appearance: own attire, adequate grooming and hygiene Behavior: restless, Orientation: alert, confused Memory: impaired Psychomotor Function: impulsive and restless, getting up, attempting to walk Speech: loud Mood: good Affect: calm, normo-intense, non-labile Thought Process: questionably organized Thought Content: paranoid delusions. Hallucinations: loudly RIS in milieu Insight: impairment Judgment: impairment Impulsivity: impulsive walking with walker Diagnostics Vital Signs (24Hr): Vital Signs - 24 hr 03/27/25 08:38 Temperature 97.9 F Pulse Rate 59 Respiratory Rate 20 Blood Pressure 125/60 Pulse Oximetry 96 Oxygen Delivery Method Room Air BMI result Body Mass Index 31.2 Labs 03/29/25 08:55 03/29/25 08:55 Labs: Laboratory Results - last 48 hr 03/09/25 12:35 CSF Anti-VGKC Ab Interp <20 CSF AMPA Recp 1 Ab (CBA) NEGATIVE CSF AMPA Recp 2 Ab (CBA) NEGATIVE CSF Anti-DPPX NEGATIVE CSF AGNA/SOX1 Ab (IFA) NEGATIVE CSF Myelin Ab (IFA) NEGATIVE CSF NMDAR1 Ab (CBA) NEGATIVE CSF Anti-[place]-B Rec CBA NEGATIVE CSF NMO/Aquaporin-4 IgG NEGATIVE CSF NMO/AQP-4 Ab (IFA) NEGATIVE CSF Anti-Neuronal Typ 1 NEGATIVE CSF Anti-Neuronal Typ 2 NEGATIVE CSF Anti-Neuronal Typ 3 NEGATIVE CSF NEEDLE MAKER-Tr (IFA) NEGATIVE CSF Purkinje Cyto Ab 1 NEGATIVE CSF Purkinje Cyto Ab 2 NEGATIVE CSF Amphiphysin Ab NEGATIVE CSF Anti-CASPR2 Ab NEGATIVE CSF Anti-CV2 Ab NEGATIVE CSF Anti-Ma2:Ta Ab (IB) NEGATIVE CSF Tissue Observ (IFA) SEE NOTE CSF GAD65 Antibody NEGATIVE CSF Anti-LGI1 Ab NEGATIVE CSF Enceph Autoimm Intp SEE NOTE Imaging Radiology Impressions: ITS Impressions Head CT 03/05/25 15:51 IMPRESSION: 1. No acute intracranial abnormality. 2. Right-sided cochlear nerve implant with associated streak artifact. 3. Right-sided canal wall up mastoidectomy. Electronically signed by: Levi Greer MD 03/05/2025 04:25 PM EDT RP Lumbar Puncture Fluoroscopy 03/09/25 11:50 IMPRESSION: Successful fluoroscopy-guided lumbar puncture performed without immediate complications Electronically signed by: Thompson Andujar MD 03/09/2025 04:06 PM EDT RP Chest CT 03/11/25 11:52 IMPRESSION: 1. Multiple bilateral pulmonary nodules measuring up to 10 mm in size. Further evaluation should be based on Fleischner Society guidelines below. 2. Cardiomegaly. Findings consistent with pulmonary arterial hypertension. 3. No evidence of mediastinal or hilar lymphadenopathy. Fleischner Criteria for pulmonary nodule follow-up SOLID NODULES: Low risk patient: <6mm: no follow-up 6-8mm: 6 month follow-up CT >8mm: PET/Biopsy/ 3 month follow-up CT High risk patient: <6mm: 12 month follow-up CT 6-8mm: 6 month follow-up CT >8mm: PET/Biopsy/ 3 month follow-up CT SUB-SOLID/GROUNDGLASS NODULES: All patients: > or = 6mm: 6 month follow-up CT *Please note that in patients in the following categories, the Fleischner criteria do not apply: Immunocompromised, lung cancer screening population, age below 35, and patients with known malignancy Electronically signed by: Best Clemons MD 03/11/2025 01:45 PM EDT RP Head CTA 03/11/25 11:52 IMPRESSION: Head CT: No acute intracranial abnormality. CT angiogram of the head: No vascular occlusions. Electronically signed by: Gypsy Salamanca MD 03/11/2025 03:02 PM EDT Medications Medications Current Medications Acetaminophen (Acetaminophen 325 Mg Tablet) 650 mg PO Q6H PRN PRN Reason: Headache/Pain, Scale 1-10 Last Admin: 03/24/25 10:23 Dose: 650 mg Al Hydroxide/Mg Hydroxide (Magnesium Hydrox/Alum Hydrox 30 Ml Oral.Susp) 30 ml PO Q6H PRN PRN Reason: Heartburn/Nausea Albuterol Sulfate (Albuterol Sulfate 90 Mcg 8 Gm Inhaler) 2 puff INHALE Q4H PRN PRN Reason: Shortness Of Breath Or Wheezing Atorvastatin Calcium (Atorvastatin Calcium 40 Mg Tablet) 40 mg PO DAILY [facility] Last Admin: 03/27/25 08:41 Dose: 40 mg Benztropine Mesylate (Benztropine Mesylate 0.5 Mg Tablet) 0.5 mg PO DAILY [facility] Last Admin: 03/27/25 08:40 Dose: 0.5 mg Benztropine Mesylate (Benztropine Mesylate 1 Mg Tablet) 1 mg PO BEDTIME [facility] Last Admin: 03/26/25 21:53 Dose: 1 mg Clonazepam (Clonazepam Odt 0.5 Mg Tab.Rapdis) 0.5 mg PO BID PRN PRN Reason: severe anxiety/sleep Last Admin: 03/26/25 00:14 Dose: 0.5 mg Fluphenazine HCl (Fluphenazine Hcl 2.5 Mg/Ml 10 Ml Vial) 2.5 mg IM BID PRN PRN Reason: give if refuses oral per HCP Last Admin: 03/05/25 09:42 Dose: 2.5 mg Fluphenazine HCl (Fluphenazine Hcl 2.5 Mg Tablet) 2.5 mg PO DAILY [facility] Last Admin: 03/27/25 08:41 Dose: 2.5 mg Fluphenazine HCl (Fluphenazine Hcl 2.5 Mg Tablet) 5 mg PO BEDTIME [facility] Last Admin: 03/26/25 21:53 Dose: 5 mg Fluticasone/Vilanterol (Fluticasone/Vilanterol 200/25 Blst.W.Dev) 1 puff INHALE RDAILY [facility] Last Admin: 03/27/25 08:46 Dose: 1 puff Guaifenesin (Guaifenesin 200 Mg/10 Ml 10 Ml Liquid) 10 ml PO Q6H PRN PRN Reason: Cough Hydrochlorothiazide (Hydrochlorothiazide 25 Mg Tablet) 25 mg PO DAILY [facility] Last Admin: 03/27/25 08:41 Dose: 25 mg Levetiracetam (Levetiracetam 250 Mg Tablet) 250 mg PO BID [facility] Last Admin: 03/27/25 08:40 Dose: 250 mg Magnesium Hydroxide (Milk Of Magnesia 30 Ml Oral.Susp) 30 ml PO DAILY PRN PRN Reason: Constipation Methimazole (Methimazole 5 Mg Tablet) 5 mg PO DAILY [facility] Last Admin: 03/27/25 08:41 Dose: 5 mg Naloxone HCl (Naloxone Hcl 0.4 Mg/Ml Vial) 0.04 mg IVPUSH Q5M PRN PRN Reason: Excessive sedation or RR < 8 Nifedipine (Nifedipine Er 30 Mg Tab.Er.24) 30 mg PO DAILY [facility]; Protocol Last Admin: 03/27/25 08:41 Dose: 30 mg Olanzapine (Olanzapine 10 Mg Tablet) 10 mg PO Q6H PRN PRN Reason: severe agitation Last Admin: 03/26/25 21:58 Dose: 10 mg Prednisone (Prednisone 20 Mg Tablet) 40 mg PO DAILY [facility] Tiotropium Madelia (Tiotropium Madelia 2.5 Mcg 1 Puff/2.5 Mcg Mist.Inhal) 1 puff INHALE RDAILY [facility] Last Admin: 03/27/25 08:49 Dose: 1 puff Trazodone HCl (Trazodone Hcl 50 Mg Tablet) 50 mg PO BEDTIME MRX1 PRN PRN Reason: Insomnia Last Admin: 03/25/25 22:15 Dose: 50 mg Allergies Allergies Allergy/AdvReac Type Severity Reaction Status Date / Time latex Allergy Unknown Verified 03/09/25 11:50 peanut Allergy Unknown Verified 03/09/25 11:50 Penicillins Allergy Unknown Verified 03/09/25 11:50 Assessment & Plan Assessment & Plan (1) Psychosis: Status: Acute Code(s): F29 - Unspecified psychosis not due to a substance or known physiological condition (2) Pulmonary nodules: Status: Acute Code(s): R91.8 - Other nonspecific abnormal finding of lung field Assessment and Plan: Bloodwork plan for bronchosopcy, EBUS to sample mediastinal and hilar lymphnodes and transbronchial biopsies to assess for malinancy and sarcoidsosis The bronchoscopy is urgent in order to facilitate her medical treatment (3) Rheumatoid arthritis involving hand with positive rheumatoid factor: Status: Acute Code(s): M05.749 - Rheumatoid arthritis with rheumatoid factor of unspecified hand without organ or systems involvement Plan Mrs. Sharif is a 69 year-old woman who presents with a 3 month hx of new onset of psychosis (AH) and combination of paranoid delusions and cap gras delusions. No prior psychiatric hx. She does have of cocaine use but apparently had not used in some years. Daughter suspects she may have relapsed but no ongoing use. Pt presents with more complex theme of delusions. No additional medical work up available including head CT. CBC and cmp unremarkable. 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 It may be related to dementia process but complexity of delusions and psychosis not the common presentation for dementia that have psychosis early on such as in vascular dementia or LBD. Pt presents as gravely disable to able to care for self due to symptoms of psychosis and delusions. 02/03 increase night time risperidone 2mg po qhs increase cogetin at bedtime to 1mg po qhs. lower daily dose to 0.5mg po daily. continue cogentin 0.5mg po daily. clonazepam as prn olanzapine as prn for agitation 02/04 continue tx. 02/05 continue tx. 02/06 continue current dose of risperidone. NOTE THAT pt can't take doses higher than 3 mg/day of risperidone as higher doses had severe EPS. can use olanzapine as well per court order. 02/07/25: Patient has been agitated yelling loudly exist seeking, delusional thinking her daughter/son outside at the door to pick her up. PRNs given in the morning with mild effect. Patient became agitated, aggressive\, assaultive to 1 of the staff on the floor, yelling and hitting her face so grabbing her neck. Physical was started at 16:31 to 1634. Patient was given IM medication of Zyprexa 10 and Valium 10 with good effect. Tomorrow plan: Patient will be benefit from Valium 10 mg twice a day and Zyprexa 5 mg 3 times a day is added into her scheduled medication as current plan with risperidone is not effective. Patient also having a backup for risperidone if she refused. 02/08/25: Slept most of the morning and last night. In better behavior control. No aggressive behavior. She is quiet, self dialogue, and medication compliant. Due to receive restrain medication yesterday. I did not make any medication change. But the Valium and additional Zyprexa appears to be helpful. 02/09 will try to change keppra to depakote for seizures as keppra may exacerbate psychosis. increase risperidone 1mg po daily and 2mg po qhs. may need to add second antipsychotic. 02/10 continues to present as paranoid with AH. at times declines oral medications, requiring IM back per court order. 02/11 continue tx. 02/12 continue tx. 02/13 continue tx. 02/14: no changes today. Monitor for agitation around confusion about hospitalization 02/15: no changes today, self dialogue more overt/extensive today 02/16 add olanzapine 5mg po qhs. continue risperidone. minimal improvement if any. 02/17 continue tx. 02/18 seems more somnolent with bedtime olanzapine, will continue to monitor. 02/19 cbc showed thrombocytopenia, which is new and suspect related to depakote 02/20 pt appears more sedated since addition of olanzapine at bedtime. She continues to self dialogue. minimal improvement. 02/21: Continue current management and treatment plan. 02/22: continue current management and treatment plan. 02/23 continue tx. may need to affirm HCP try different antipsychotic. 02/24 continue tx. results of LENORE 1:360, pattern homogenous A. 02/25 will try rexulti, lower risperidone. pending coordination of medical care to see if underlying autoimmune condition has anything to do with current presentation. 02/26 discussed with hospital county attorney to dismiss sect 8, HCP invoked and can consent to other treatment. daughter Maricruz give permission to try different antipsychotic. 02/27 decrease risperidone to 1mg po daily, start prolixin 2.5mg po qhs, then increase to BID. continue olanzapine prn for agitation. olanzapine as well per court order. 03/03 pt seen by neurology, added HIV/RPR/LYME, can't have MRI due to cochlear implant. 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 Last Neurology appointment 01/2024. Missed appointment with rheumatology 05/2024, last seen in 02/26/2024. - Pt can't have MRI due to cochlear implant. Had head CT. - continue prolixin 2.5mg po daily, 5mg po qhs. will d/c risperidone, increase prolixin 5mg po BID, back up IM. 03/05 continue tx. 03/06 This publications writer spoke with pt's car rental clerk, Dr. Al obtained collateral information. Will coordinate with neurology and rheumatology once LP results are available. r/o reoccurance of pachymeningitis, lupus or other autoimmune cause for psychosis. 03/07: Continue current regimen and plans. Discontinued one-to-one and put in place 5 minute checks 03/08: Continue current plans and regimen 03/09 continue tx. 03/10: continue current mgmt. continues disorganized and psychotic. see neuro note from today. continue with neuro w/u. 03/11: given zyprexa 5 and valium [address] and head CTA. head CTA WNL, chest CT showed numerous pulmonary nodules up to 10 mm in size. no change in presentation. due to persistent requests for discharge, 3-day notice submitted on her behalf. will work toward HCP affirmation by the court. 03/12: per pulm consult, chest CT more c/w rheumatological process than CA, recommended empiric steroid course. awaiting input from neuro. consider Bx of nodules otherwise. continue current mgmt for now. 03/13: variably calm and agitated. planning for bronchoscopy with pulmonary nodule Bx on sunday. continue current mgmt. case discussed with HCP Maricruz (daughter), who is in agreement with plan. 03/14: CSF with notable findings. will f/u with neuro on sunday. stable presentation for now, remains quite psychotic. continue current mgmt. bronchoscopy sunday. 03/15: no change from yesterday in presentation or plan. 03/16: stable presentation. continues confused, wanting to go home. HCP affirmation tomorrow. continue current mgmt. 03/17: stable presdentation. bronchoscopy pending. continue current mgmt. 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 awaiting bronchoscopy. remains psychotic. continue current mgmt for now. 03/20: no change in presentation. still awaiting go-ahead for brochoscopy. continue current mgmt. 03/22: No changes. Noted above. 03/23: awaiting insurance approval for bronchoscopy. stable presentation. 03/24: as for yesterday. 03/25: loudly RIS in milieu today. bronchoscopy scheduled for sunday at 1130. NPO past MN night. stable presentation. continue current mgmt. 03/26 pt presents as more disorganized and inattentive than usual showing more signs of delirious behavior. bronchoscopy was canceled,due to shortage of needles to complete biopsy. will order cbc, cmp, ammonia levels given increase disorganized behavior and worsening attention pointing at a more delirious presentation. * Review of results from LP showing negative results for meningitis panel/paraneoplastic panel (including most common antibody found in SLC which is EARL 1 which was negative), elevated protein in CSF 131 without leukocytosis, also elevated CSF/serum IgG index. elevated anti-ds dna titer 1:80. Such results may point more to a rheumatological condition than infectious condition or malignancy. [facility]'s OP rhematologist, Dr. Al recommends trial of prednisone 40mg po daily at least for 2 weeks. 03/27 decision to start prednisone 40mg po daily, may need transfer to tertiary hospital for further tx. Reason for continued inpatient stay Substantial Risk for: inability to function Time Spent With Patient Time: Total time managing care of this patient today ____ minutes.
[2025-03-27 23:30] VITALS: BP 150/70; PULSE 68; RESP 16; TEMP 36; O2SAT 96
[2025-03-27 23:45] VITALS: BP 150/70; PULSE 68; RESP 20; TEMP 36; O2SAT 96
--- NOTE | 2025-03-28 01:04 | HE.NUR.EV ---
Status Change: Fall Immediate Actions Taken: assessment for injury no injury seen at this time VS WNL Notifications: Hospitalist and nursing food supervisor Further Monitoring and Treatment: seen by hospitalist, monitor for pain or change in ambulation
[2025-03-28 09:05] VITALS: BP 138/66; PULSE 73; RESP 20; TEMP 36.4; O2SAT 95
--- NOTE | 2025-03-28 09:06 | HO.PSYCHPN ---
Subjective Subjective Date of Service: 03/28/25 Reason For Visit: Abnormal CT chest Interim History: Intermittently refuses medications. She is irritable and paranoid at times. She yells out here's another one that is saying he's a doctor. Paranoid about her medications because they look different than what she is used to and refused Keppra this morning. She presents as more disorganized than usual, restless, impulsively walking with walker without awareness of risk for falls. yelling, very poor attention and more than usual difficult to engage. She is now on a one to one due to risk of fall and impulsive behaviors. Review of Systems Review of Systems nothing of note Yes all other systems are reviewed and are negative, Unobtainable due to mental status and Other (patient refused to answer ROS questions) Constitutional: Reports as per HPI Eyes: Reports as per HPI Reports as per HPI Cardiovascular: Reports as per HPI Respiratory: Reports as per HPI Gastrointestinal: Reports as per HPI Musculoskeletal: Reports as per HPI Skin/Breast: Reports as per HPI Reports as per HPI and Reports confusion Psychiatric: Reports as per HPI and Reports confusion Endocrine: Reports as per HPI Hematologic/Lymphatic: Reports as per HPI Allergic/Immunologic: Reports as per HPI Mental Status Exam Mental Status Exam Narrative: Appearance: own attire, adequate grooming and hygiene Behavior: restless, Orientation: alert, confused Memory: impaired Psychomotor Function: impulsive and restless, getting up, attempting to walk Speech: loud Mood: good Affect: calm, normo-intense, non-labile Thought Process: questionably organized Thought Content: paranoid delusions. Hallucinations: loudly RIS in milieu Insight: impairment Judgment: impairment Impulsivity: none noted Patient Appearance: Appropriate and Unkempt Patient Orientation: Person and Situation Level of Consciousness: Awake and Restless Patient Behavior: Talkative and Poor Eye Contact Mood Description: Labile Affect Description: Labile Patient Cognition Impaired: No Ability to Follow Directions: Poor Speech Pattern: Rambling and Poor Articulation Memory Description: Remote Impaired Diagnostics Vital Signs (24Hr): Vital Signs - 24 hr 03/27/25 23:30 03/27/25 23:45 03/28/25 09:05 Temperature 96.8 F 96.8 F Pulse Rate 68 68 73 Respiratory Rate 16 20 20 Blood Pressure 150/70 H 150/70 H 138/66 Pulse Oximetry 96 96 95 Oxygen Delivery Method Room Air Room Air BMI result Body Mass Index 31.2 Labs 02/19/25 07:48 03/05/25 07:38 Labs: Laboratory Results - last 48 hr 03/09/25 03/12/25 12:35 07:30 CSF Anti-VGKC Ab Interp <20 CSF AMPA Recp 1 Ab (CBA) NEGATIVE CSF AMPA Recp 2 Ab (CBA) NEGATIVE CSF Anti-DPPX NEGATIVE CSF AGNA/SOX1 Ab (IFA) NEGATIVE CSF Myelin Ab (IFA) NEGATIVE CSF NMDAR1 Ab (CBA) NEGATIVE CSF Anti-[place]-B Rec CBA NEGATIVE CSF NMO/[place]-4 IgG NEGATIVE CSF NMO/AQP-4 Ab (IFA) NEGATIVE CSF Anti-Neuronal Typ 1 NEGATIVE CSF Anti-Neuronal Typ 2 NEGATIVE CSF Anti-Neuronal Typ 3 NEGATIVE CSF MANAGER CABLE-Tr (IFA) NEGATIVE CSF Purkinje Cyto Ab 1 NEGATIVE CSF Purkinje Cyto Ab 2 NEGATIVE CSF Amphiphysin Ab NEGATIVE CSF Anti-CASPR2 Ab NEGATIVE CSF Anti-CV2 Ab NEGATIVE CSF Anti-Ma2:Ta Ab (IB) NEGATIVE CSF Tissue Observ (IFA) SEE NOTE CSF GAD65 Antibody NEGATIVE CSF Anti-LGI1 Ab NEGATIVE CSF Enceph Autoimm Intp SEE NOTE Babesia microti IgG Ab <1:64 Babesia microti IgM Ab <1:20 Babesia Interpretation SEE NOTE Imaging Radiology Impressions: ITS Impressions Head CT 03/05/25 15:51 IMPRESSION: 1. No acute intracranial abnormality. 2. Right-sided cochlear nerve implant with associated streak artifact. 3. Right-sided canal wall up mastoidectomy. Electronically signed by: Levi Greer MD 03/05/2025 04:25 PM EDT RP Lumbar Puncture Fluoroscopy 03/09/25 11:50 IMPRESSION: Successful fluoroscopy-guided lumbar puncture performed without immediate complications Electronically signed by: Thompson Andujar MD 03/09/2025 04:06 PM EDT RP Chest CT 03/11/25 11:52 IMPRESSION: 1. Multiple bilateral pulmonary nodules measuring up to 10 mm in size. Further evaluation should be based on Fleischner Society guidelines below. 2. Cardiomegaly. Findings consistent with pulmonary arterial hypertension. 3. No evidence of mediastinal or hilar lymphadenopathy. Fleischner Criteria for pulmonary nodule follow-up SOLID NODULES: Low risk patient: <6mm: no follow-up 6-8mm: 6 month follow-up CT >8mm: PET/Biopsy/ 3 month follow-up CT High risk patient: <6mm: 12 month follow-up CT 6-8mm: 6 month follow-up CT >8mm: PET/Biopsy/ 3 month follow-up CT SUB-SOLID/GROUNDGLASS NODULES: All patients: > or = 6mm: 6 month follow-up CT *Please note that in patients in the following categories, the Fleischner criteria do not apply: Immunocompromised, lung cancer screening population, age below 35, and patients with known malignancy Electronically signed by: Best Clemons MD 03/11/2025 01:45 PM EDT RP Head CTA 03/11/25 11:52 IMPRESSION: Head CT: No acute intracranial abnormality. CT angiogram of the head: No vascular occlusions. Electronically signed by: Gypsy Salamanca MD 03/11/2025 03:02 PM EDT RP Medications Medications Current Medications Acetaminophen (Acetaminophen 325 Mg Tablet) 650 mg PO Q6H PRN PRN Reason: Headache/Pain, Scale 1-10 Last Admin: 03/24/25 10:23 Dose: 650 mg Al Hydroxide/Mg Hydroxide (Magnesium Hydrox/Alum Hydrox 30 Ml Oral.Susp) 30 ml PO Q6H PRN PRN Reason: Heartburn/Nausea Albuterol Sulfate (Albuterol Sulfate 90 Mcg 8 Gm Inhaler) 2 puff INHALE Q4H PRN PRN Reason: Shortness Of Breath Or Wheezing Atorvastatin Calcium (Atorvastatin Calcium 40 Mg Tablet) 40 mg PO DAILY [facility] Last Admin: 03/27/25 08:41 Dose: 40 mg Benztropine Mesylate (Benztropine Mesylate 0.5 Mg Tablet) 0.5 mg PO DAILY [facility] Last Admin: 03/27/25 08:40 Dose: 0.5 mg Benztropine Mesylate (Benztropine Mesylate 1 Mg Tablet) 1 mg PO BEDTIME [facility] Last Admin: 03/27/25 20:45 Dose: 1 mg Clonazepam (Clonazepam Odt 0.5 Mg Tab.Rapdis) 0.5 mg PO BID PRN PRN Reason: severe anxiety/sleep Last Admin: 03/26/25 00:14 Dose: 0.5 mg Fluphenazine HCl (Fluphenazine Hcl 2.5 Mg/Ml 10 Ml Vial) 2.5 mg IM BID PRN PRN Reason: give if refuses oral per HCP Last Admin: 03/05/25 09:42 Dose: 2.5 mg Fluphenazine HCl (Fluphenazine Hcl 2.5 Mg Tablet) 2.5 mg PO DAILY [facility] Last Admin: 03/27/25 08:41 Dose: 2.5 mg Fluphenazine HCl (Fluphenazine Hcl 2.5 Mg Tablet) 5 mg PO BEDTIME [facility] Last Admin: 03/27/25 20:45 Dose: 5 mg Fluticasone/Vilanterol (Fluticasone/Vilanterol 200/25 Blst.W.Dev) 1 puff INHALE RDAILY [facility] Last Admin: 03/27/25 08:46 Dose: 1 puff Guaifenesin (Guaifenesin 200 Mg/10 Ml 10 Ml Liquid) 10 ml PO Q6H PRN PRN Reason: Cough Hydrochlorothiazide (Hydrochlorothiazide 25 Mg Tablet) 25 mg PO DAILY [facility] Last Admin: 03/27/25 08:41 Dose: 25 mg Levetiracetam (Levetiracetam 250 Mg Tablet) 250 mg PO BID [facility] Last Admin: 03/27/25 20:45 Dose: 250 mg Magnesium Hydroxide (Milk Of Magnesia 30 Ml Oral.Susp) 30 ml PO DAILY PRN PRN Reason: Constipation Methimazole (Methimazole 5 Mg Tablet) 5 mg PO DAILY [facility] Last Admin: 03/27/25 08:41 Dose: 5 mg Naloxone HCl (Naloxone Hcl 0.4 Mg/Ml Vial) 0.04 mg IVPUSH Q5M PRN PRN Reason: Excessive sedation or RR < 8 Nifedipine (Nifedipine Er 30 Mg Tab.Er.24) 30 mg PO DAILY [facility]; Protocol Last Admin: 03/27/25 08:41 Dose: 30 mg Olanzapine (Olanzapine 10 Mg Tablet) 10 mg PO Q6H PRN PRN Reason: severe agitation Last Admin: 03/26/25 21:58 Dose: 10 mg Prednisone (Prednisone 20 Mg Tablet) 40 mg PO DAILY [facility] Last Admin: 03/27/25 15:04 Dose: 40 mg Tiotropium [place] (Tiotropium [place] 2.5 Mcg 1 Puff/2.5 Mcg Mist.Inhal) 1 puff INHALE RDAILY [facility] Last Admin: 03/27/25 08:49 Dose: 1 puff Trazodone HCl (Trazodone Hcl 50 Mg Tablet) 50 mg PO BEDTIME MRX1 PRN PRN Reason: Insomnia Last Admin: 03/25/25 22:15 Dose: 50 mg Allergies Allergies Allergy/AdvReac Type Severity Reaction Status Date / Time latex Allergy Unknown Verified 03/09/25 11:50 peanut Allergy Unknown Verified 03/09/25 11:50 Penicillins Allergy Unknown Verified 03/09/25 11:50 Assessment & Plan Assessment & Plan (1) Psychosis: Status: Acute Code(s): F29 - Unspecified psychosis not due to a substance or known physiological condition (2) Pulmonary nodules: Status: Acute Code(s): R91.8 - Other nonspecific abnormal finding of lung field Assessment and Plan: Bloodwork plan for bronchosopcy, EBUS to sample mediastinal and hilar lymphnodes and transbronchial biopsies to assess for malinancy and sarcoidsosis The bronchoscopy is urgent in order to facilitate her medical treatment (3) Rheumatoid arthritis involving hand with positive rheumatoid factor: Status: Acute Code(s): M05.749 - Rheumatoid arthritis with rheumatoid factor of unspecified hand without organ or systems involvement Plan Mrs. Sharif is a 69 year-old woman who presents with a 3 month hx of new onset of psychosis (AH) and combination of paranoid delusions and cap gras delusions. No prior psychiatric hx. She does have of cocaine use but apparently had not used in some years. Daughter suspects she may have relapsed but no ongoing use. Pt presents with more complex theme of delusions. No additional medical work up available including head CT. CBC and cmp unremarkable. 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 It may be related to dementia process but complexity of delusions and psychosis not the common presentation for dementia that have psychosis early on such as in vascular dementia or LBD. Pt presents as gravely disable to able to care for self due to symptoms of psychosis and delusions. 02/03 increase night time risperidone 2mg po qhs increase cogetin at bedtime to 1mg po qhs. lower daily dose to 0.5mg po daily. continue cogentin 0.5mg po daily. clonazepam as prn olanzapine as prn for agitation 02/04 continue tx. 02/05 continue tx. 02/06 continue current dose of risperidone. NOTE THAT pt can't take doses higher than 3 mg/day of risperidone as higher doses had severe EPS. can use olanzapine as well per court order. 02/07/25: Patient has been agitated yelling loudly exist seeking, delusional thinking her daughter/son outside at the door to pick her up. PRNs given in the morning with mild effect. Patient became agitated, aggressive\, assaultive to 1 of the staff on the floor, yelling and hitting her face so grabbing her neck. Physical was started at 16:31 to 1634. Patient was given IM medication of Zyprexa 10 and Valium 10 with good effect. Tomorrow plan: Patient will be benefit from Valium 10 mg twice a day and Zyprexa 5 mg 3 times a day is added into her scheduled medication as current plan with risperidone is not effective. Patient also having a backup for risperidone if she refused. 02/08/25: Slept most of the morning and last night. In better behavior control. No aggressive behavior. She is quiet, self dialogue, and medication compliant. Due to receive restrain medication yesterday. I did not make any medication change. But the Valium and additional Zyprexa appears to be helpful. 02/09 will try to change keppra to depakote for seizures as keppra may exacerbate psychosis. increase risperidone 1mg po daily and 2mg po qhs. may need to add second antipsychotic. 02/10 continues to present as paranoid with AH. at times declines oral medications, requiring IM back per court order. 02/11 continue tx. 02/12 continue tx. 02/13 continue tx. 02/14: no changes today. Monitor for agitation around confusion about hospitalization 02/15: no changes today, self dialogue more overt/extensive today 02/16 add olanzapine 5mg po qhs. continue risperidone. minimal improvement if any. 02/17 continue tx. 02/18 seems more somnolent with bedtime olanzapine, will continue to monitor. 02/19 cbc showed thrombocytopenia, which is new and suspect related to depakote 02/20 pt appears more sedated since addition of olanzapine at bedtime. She continues to self dialogue. minimal improvement. 02/21: Continue current management and treatment plan. 02/22: continue current management and treatment plan. 02/23 continue tx. may need to affirm HCP try different antipsychotic. 02/24 continue tx. results of LENORE 1:360, pattern homogenous A. 02/25 will try rexulti, lower risperidone. pending coordination of medical care to see if underlying autoimmune condition has anything to do with current presentation. 02/26 discussed with hospital criminal attorney to dismiss sect 8, HCP invoked and can consent to other treatment. daughter Maricruz give permission to try different antipsychotic. 02/27 decrease risperidone to 1mg po daily, start prolixin 2.5mg po qhs, then increase to BID. continue olanzapine prn for agitation. olanzapine as well per court order. 03/03 pt seen by neurology, added HIV/RPR/LYME, can't have MRI due to cochlear implant. 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 Last Neurology appointment 01/2024. Missed appointment with rheumatology 05/2024, last seen in 02/26/2024. - Pt can't have MRI due to cochlear implant. Had head CT. - continue prolixin 2.5mg po daily, 5mg po qhs. will d/c risperidone, increase prolixin 5mg po BID, back up IM. 03/05 continue tx. 03/06 This commercial insurance underwriter spoke with pt's injection wax molder, Dr. Al obtained collateral information. Will coordinate with neurology and rheumatology once LP results are available. r/o reoccurance of pachymeningitis, lupus or other autoimmune cause for psychosis. 03/07: Continue current regimen and plans. Discontinued one-to-one and put in place 5 minute checks 03/08: Continue current plans and regimen 03/09 continue tx. 03/10: continue current mgmt. continues disorganized and psychotic. see neuro note from today. continue with neuro w/u. 03/11: given zyprexa 5 and valium [address] and head CTA. head CTA WNL, chest CT showed numerous pulmonary nodules up to 10 mm in size. no change in presentation. due to persistent requests for discharge, 3-day notice submitted on her behalf. will work toward HCP affirmation by the court. 03/12: per pulm consult, chest CT more c/w rheumatological process than CA, recommended empiric steroid course. awaiting input from neuro. consider Bx of nodules otherwise. continue current mgmt for now. 03/13: variably calm and agitated. planning for bronchoscopy with pulmonary nodule Bx on sunday. continue current mgmt. case discussed with HCP Maricruz (daughter), who is in agreement with plan. 03/14: CSF with notable findings. will f/u with neuro on sunday. stable presentation for now, remains quite psychotic. continue current mgmt. bronchoscopy sunday. 03/15: no change from yesterday in presentation or plan. 03/16: stable presentation. continues confused, wanting to go home. HCP affirmation tomorrow. continue current mgmt. 03/17: stable presdentation. bronchoscopy pending. continue current mgmt. 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 awaiting bronchoscopy. remains psychotic. continue current mgmt for now. 03/20: no change in presentation. still awaiting go-ahead for brochoscopy. continue current mgmt. 03/22: No changes. Noted above. 03/23: awaiting insurance approval for bronchoscopy. stable presentation. 03/24: as for yesterday. 03/25: loudly RIS in milieu today. bronchoscopy scheduled for sunday at 1130. NPO past MN night. stable presentation. continue current mgmt. 03/26 pt presents as more disorganized and inattentive than usual showing more signs of delirious behavior. bronchoscopy was canceled,due to shortage of needles to complete biopsy. will order cbc, cmp, ammonia levels given increase disorganized behavior and worsening attention pointing at a more delirious presentation. Review of results from LP showing negative results for meningitis panel/paraneoplastic panel (including most common antibody found in [facility] which is EARL 1 which was negative), elevated protein in CSF 131 without leukocytosis, also elevated CSF/serum IgG index. elevated anti-ds dna titer 1:80. Such results may point more to a rheumatological condition than infectious condition or malignancy. Mrs. Sharif's OP rhematologist, Dr. Al recommends trial of prednisone 40mg po daily at least for 2 weeks. 03/28: continue current management and treatment plan. Reason for continued inpatient stay Substantial Risk for: inability to function, rapid decompensation and med/psych decompensation Time Spent With Patient Time: Total time managing care of this patient today ____ minutes.
[2025-03-28] MEDS: NIFEdipine ER 30 MG TAB.ER.24 PO (09:09)
[2025-03-28 20:00] VITALS: BP 129/62; PULSE 74; RESP 16; TEMP 36.3; O2SAT 97
[2025-03-29] MEDS: clonazePAM ODT 0.5 MG TAB.RAPDIS PO ×2 (00:21→20:57)
[2025-03-29] MEDS: OLANZapine 10 MG VIAL IM (02:11)
--- NOTE | 2025-03-29 08:44 | HO.PSYCHPN ---
Subjective Subjective Date of Service: 03/29/25 Reason For Visit: Abnormal CT chest Interim History: Intermittently refuses medications. Took her medications this morning including Keppra. She was up late last night. She was yelling last night. Calling out to her daughter and non listening to redirection by the 1:1 as she wasn't using her walker (fall risk.) Received her PRN's. She still didn't sleep. She received Zyprexa IM willingly and slept after. She is intermittently agitated. She is irritable and paranoid at times. Restless, impulsively walking with walker without awareness of risk for falls. Review of Systems Review of Systems nothing of note Yes all other systems are reviewed and are negative, Unobtainable due to mental status and Other (patient refused to answer ROS questions) Constitutional: Reports as per HPI Eyes: Reports as per HPI Reports as per HPI Cardiovascular: Reports as per HPI Respiratory: Reports as per HPI Gastrointestinal: Reports as per HPI Musculoskeletal: Reports as per HPI Skin/Breast: Reports as per HPI Reports as per HPI and Reports confusion Psychiatric: Reports as per HPI and Reports confusion Endocrine: Reports as per HPI Hematologic/Lymphatic: Reports as per HPI Allergic/Immunologic: Reports as per HPI Mental Status Exam Mental Status Exam Narrative: Appearance: own attire, adequate grooming and hygiene Behavior: restless, Orientation: alert, confused Memory: impaired Psychomotor Function: impulsive and restless, getting up, attempting to walk Speech: loud Mood: good Affect: calm, normo-intense, non-labile Thought Process: questionably organized Thought Content: paranoid delusions. Hallucinations: loudly RIS in milieu Insight: impairment Judgment: impairment Impulsivity: none noted Patient Appearance: Appropriate and Unkempt Patient Orientation: Person and Situation Level of Consciousness: Awake and Restless Patient Behavior: Talkative and Poor Eye Contact Mood Description: Labile Affect Description: Labile Patient Cognition Impaired: No Ability to Follow Directions: Poor Speech Pattern: Rambling and Poor Articulation Memory Description: Remote Impaired Diagnostics Vital Signs (24Hr): Vital Signs - 24 hr 03/28/25 09:05 03/28/25 20:00 Temperature 97.6 F 97.3 F Pulse Rate 73 74 Respiratory Rate 20 16 Blood Pressure 138/66 129/62 Pulse Oximetry 95 97 Oxygen Delivery Method Room Air Room Air BMI result Body Mass Index 31.2 Labs 03/29/25 08:55 03/29/25 08:55 Labs: Laboratory Results - last 48 hr 03/09/25 03/12/25 12:35 07:30 CSF Anti-VGKC Ab Interp <20 CSF AMPA Recp 1 Ab (CBA) NEGATIVE CSF AMPA Recp 2 Ab (CBA) NEGATIVE CSF Anti-DPPX NEGATIVE CSF AGNA/SOX1 Ab (IFA) NEGATIVE CSF Myelin Ab (IFA) NEGATIVE CSF NMDAR1 Ab (CBA) NEGATIVE CSF Anti-[place]O-B Rec CBA NEGATIVE CSF NMO/Aquaporin-4 IgG NEGATIVE CSF NMO/AQP-4 Ab (IFA) NEGATIVE CSF Anti-Neuronal Typ 1 NEGATIVE CSF Anti-Neuronal Typ 2 NEGATIVE CSF Anti-Neuronal Typ 3 NEGATIVE CSF CUPROUS CHLORIDE HELPER-Tr (IFA) NEGATIVE CSF Purkinje Cyto Ab 1 NEGATIVE CSF Purkinje Cyto Ab 2 NEGATIVE CSF Amphiphysin Ab NEGATIVE CSF Anti-CASPR2 Ab NEGATIVE CSF Anti-CV2 Ab NEGATIVE CSF Anti-Ma2:Ta Ab (IB) NEGATIVE CSF Tissue Observ (IFA) SEE NOTE CSF GAD65 Antibody NEGATIVE CSF Anti-LGI1 Ab NEGATIVE CSF Enceph Autoimm Intp SEE NOTE Babesia microti IgG Ab <1:64 Babesia microti IgM Ab <1:20 Babesia Interpretation SEE NOTE Imaging Radiology Impressions: ITS Impressions Head CT 03/05/25 15:51 IMPRESSION: 1. No acute intracranial abnormality. 2. Right-sided cochlear nerve implant with associated streak artifact. 3. Right-sided canal wall up mastoidectomy. Electronically signed by: Levi Greer MD 03/05/2025 04:25 PM EDT RP Lumbar Puncture Fluoroscopy 03/09/25 11:50 IMPRESSION: Successful fluoroscopy-guided lumbar puncture performed without immediate complications Electronically signed by: Thompson Andujar MD 03/09/2025 04:06 PM EDT RP Chest CT 03/11/25 11:52 IMPRESSION: 1. Multiple bilateral pulmonary nodules measuring up to 10 mm in size. Further evaluation should be based on Fleischner Society guidelines below. 2. Cardiomegaly. Findings consistent with pulmonary arterial hypertension. 3. No evidence of mediastinal or hilar lymphadenopathy. Fleischner Criteria for pulmonary nodule follow-up SOLID NODULES: Low risk patient: <6mm: no follow-up 6-8mm: 6 month follow-up CT >8mm: PET/Biopsy/ 3 month follow-up CT High risk patient: <6mm: 12 month follow-up CT 6-8mm: 6 month follow-up CT >8mm: PET/Biopsy/ 3 month follow-up CT SUB-SOLID/GROUNDGLASS NODULES: All patients: > or = 6mm: 6 month follow-up CT *Please note that in patients in the following categories, the Fleischner criteria do not apply: Immunocompromised, lung cancer screening population, age below 35, and patients with known malignancy Electronically signed by: Best Clemons MD 03/11/2025 01:45 PM EDT RP Head CTA 03/11/25 11:52 IMPRESSION: Head CT: No acute intracranial abnormality. CT angiogram of the head: No vascular occlusions. Electronically signed by: Gypsy Salamanca MD 03/11/2025 03:02 PM EDT RP Medications Medications Current Medications Acetaminophen (Acetaminophen 325 Mg Tablet) 650 mg PO Q6H PRN PRN Reason: Headache/Pain, Scale 1-10 Last Admin: 03/24/25 10:23 Dose: 650 mg Al Hydroxide/Mg Hydroxide (Magnesium Hydrox/Alum Hydrox 30 Ml Oral.Susp) 30 ml PO Q6H PRN PRN Reason: Heartburn/Nausea Albuterol Sulfate (Albuterol Sulfate 90 Mcg 8 Gm Inhaler) 2 puff INHALE Q4H PRN PRN Reason: Shortness Of Breath Or Wheezing Atorvastatin Calcium (Atorvastatin Calcium 40 Mg Tablet) 40 mg PO DAILY [facility] Last Admin: 03/28/25 09:09 Dose: 40 mg Benztropine Mesylate (Benztropine Mesylate 0.5 Mg Tablet) 0.5 mg PO DAILY [facility] Last Admin: 03/28/25 09:08 Dose: 0.5 mg Benztropine Mesylate (Benztropine Mesylate 1 Mg Tablet) 1 mg PO BEDTIME [facility] Last Admin: 03/28/25 20:31 Dose: 1 mg Clonazepam (Clonazepam Odt 0.5 Mg Tab.Rapdis) 0.5 mg PO BID PRN PRN Reason: severe anxiety/sleep Last Admin: 03/29/25 00:21 Dose: 0.5 mg Fluphenazine HCl (Fluphenazine Hcl 2.5 Mg/Ml 10 Ml Vial) 2.5 mg IM BID PRN PRN Reason: give if refuses oral per HCP Last Admin: 03/05/25 09:42 Dose: 2.5 mg Fluphenazine HCl (Fluphenazine Hcl 2.5 Mg Tablet) 2.5 mg PO DAILY [facility] Last Admin: 03/28/25 09:09 Dose: 2.5 mg Fluphenazine HCl (Fluphenazine Hcl 2.5 Mg Tablet) 5 mg PO BEDTIME [facility] Last Admin: 03/28/25 20:31 Dose: 5 mg Fluticasone/Vilanterol (Fluticasone/Vilanterol 200/25 Blst.W.Dev) 1 puff INHALE RDAILY [facility] Last Admin: 03/28/25 09:17 Dose: Not Given Guaifenesin (Guaifenesin 200 Mg/10 Ml 10 Ml Liquid) 10 ml PO Q6H PRN PRN Reason: Cough Hydrochlorothiazide (Hydrochlorothiazide 25 Mg Tablet) 25 mg PO DAILY [facility] Last Admin: 03/28/25 09:08 Dose: 25 mg Levetiracetam (Levetiracetam 250 Mg Tablet) 250 mg PO BID [facility] Last Admin: 03/28/25 20:31 Dose: 250 mg Magnesium Hydroxide (Milk Of Magnesia 30 Ml Oral.Susp) 30 ml PO DAILY PRN PRN Reason: Constipation Methimazole (Methimazole 5 Mg Tablet) 5 mg PO DAILY [facility] Last Admin: 03/28/25 09:08 Dose: 5 mg Naloxone HCl (Naloxone Hcl 0.4 Mg/Ml Vial) 0.04 mg IVPUSH Q5M PRN PRN Reason: Excessive sedation or RR < 8 Nifedipine (Nifedipine Er 30 Mg Tab.Er.24) 30 mg PO DAILY [facility]; Protocol Last Admin: 03/28/25 09:09 Dose: 30 mg Olanzapine (Olanzapine 10 Mg Tablet) 10 mg PO Q6H PRN PRN Reason: severe agitation Last Admin: 03/29/25 00:21 Dose: 10 mg Prednisone (Prednisone 20 Mg Tablet) 40 mg PO DAILY [facility] Last Admin: 03/28/25 09:07 Dose: 40 mg Tiotropium Gilchrist (Tiotropium Gilchrist 2.5 Mcg 1 Puff/2.5 Mcg Mist.Inhal) 1 puff INHALE RDAILY [facility] Last Admin: 03/28/25 09:17 Dose: Not Given Trazodone HCl (Trazodone Hcl 50 Mg Tablet) 50 mg PO BEDTIME MRX1 PRN PRN Reason: Insomnia Last Admin: 03/29/25 01:12 Dose: 50 mg Allergies Allergies Allergy/AdvReac Type Severity Reaction Status Date / Time latex Allergy Unknown Verified 03/09/25 11:50 peanut Allergy Unknown Verified 03/09/25 11:50 Penicillins Allergy Unknown Verified 03/09/25 11:50 Assessment & Plan Assessment & Plan (1) Psychosis: Status: Acute Code(s): F29 - Unspecified psychosis not due to a substance or known physiological condition (2) Pulmonary nodules: Status: Acute Code(s): R91.8 - Other nonspecific abnormal finding of lung field Assessment and Plan: Bloodwork plan for bronchosopcy, EBUS to sample mediastinal and hilar lymphnodes and transbronchial biopsies to assess for malinancy and sarcoidsosis The bronchoscopy is urgent in order to facilitate her medical treatment (3) Rheumatoid arthritis involving hand with positive rheumatoid factor: Status: Acute Code(s): M05.749 - Rheumatoid arthritis with rheumatoid factor of unspecified hand without organ or systems involvement Plan Mrs. Sharif is a 69 year-old woman who presents with a 3 month hx of new onset of psychosis (AH) and combination of paranoid delusions and cap gras delusions. No prior psychiatric hx. She does have of cocaine use but apparently had not used in some years. Daughter suspects she may have relapsed but no ongoing use. Pt presents with more complex theme of delusions. No additional medical work up available including head CT. CBC and cmp unremarkable. 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 It may be related to dementia process but complexity of delusions and psychosis not the common presentation for dementia that have psychosis early on such as in vascular dementia or LBD. Pt presents as gravely disable to able to care for self due to symptoms of psychosis and delusions. 02/03 increase night time risperidone 2mg po qhs increase cogetin at bedtime to 1mg po qhs. lower daily dose to 0.5mg po daily. continue cogentin 0.5mg po daily. clonazepam as prn olanzapine as prn for agitation 02/04 continue tx. 02/05 continue tx. 02/06 continue current dose of risperidone. NOTE THAT pt can't take doses higher than 3 mg/day of risperidone as higher doses had severe EPS. can use olanzapine as well per court order. 02/07/25: Patient has been agitated yelling loudly exist seeking, delusional thinking her daughter/son outside at the door to pick her up. PRNs given in the morning with mild effect. Patient became agitated, aggressive\, assaultive to 1 of the staff on the floor, yelling and hitting her face so grabbing her neck. Physical was started at 16:31 to 1634. Patient was given IM medication of Zyprexa 10 and Valium 10 with good effect. Tomorrow plan: Patient will be benefit from Valium 10 mg twice a day and Zyprexa 5 mg 3 times a day is added into her scheduled medication as current plan with risperidone is not effective. Patient also having a backup for risperidone if she refused. 02/08/25: Slept most of the morning and last night. In better behavior control. No aggressive behavior. She is quiet, self dialogue, and medication compliant. Due to receive restrain medication yesterday. I did not make any medication change. But the Valium and additional Zyprexa appears to be helpful. 02/09 will try to change keppra to depakote for seizures as keppra may exacerbate psychosis. increase risperidone 1mg po daily and 2mg po qhs. may need to add second antipsychotic. 02/10 continues to present as paranoid with AH. at times declines oral medications, requiring IM back per court order. 02/11 continue tx. 02/12 continue tx. 02/13 continue tx. 02/14: no changes today. Monitor for agitation around confusion about hospitalization 02/15: no changes today, self dialogue more overt/extensive today 02/16 add olanzapine 5mg po qhs. continue risperidone. minimal improvement if any. 02/17 continue tx. 02/18 seems more somnolent with bedtime olanzapine, will continue to monitor. 02/19 cbc showed thrombocytopenia, which is new and suspect related to depakote 02/20 pt appears more sedated since addition of olanzapine at bedtime. She continues to self dialogue. minimal improvement. 02/21: Continue current management and treatment plan. 02/22: continue current management and treatment plan. 02/23 continue tx. may need to affirm HCP try different antipsychotic. 02/24 continue tx. results of LENORE 1:360, pattern homogenous A. 02/25 will try rexulti, lower risperidone. pending coordination of medical care to see if underlying autoimmune condition has anything to do with current presentation. 02/26 discussed with hospital practical nursing teacher to dismiss sect 8, HCP invoked and can consent to other treatment. daughter Maricruz give permission to try different antipsychotic. 02/27 decrease risperidone to 1mg po daily, start prolixin 2.5mg po qhs, then increase to BID. continue olanzapine prn for agitation. olanzapine as well per court order. 03/03 pt seen by neurology, added HIV/RPR/LYME, can't have MRI due to cochlear implant. 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 Last Neurology appointment 01/2024. Missed appointment with rheumatology 05/2024, last seen in 02/26/2024. - Pt can't have MRI due to cochlear implant. Had head CT. - continue prolixin 2.5mg po daily, 5mg po qhs. will d/c risperidone, increase prolixin 5mg po BID, back up IM. 03/05 continue tx. 03/06 This real estate underwriter spoke with pt's dietetic technician, Dr. Al obtained collateral information. Will coordinate with neurology and rheumatology once LP results are available. r/o reoccurance of pachymeningitis, lupus or other autoimmune cause for psychosis. 03/07: Continue current regimen and plans. Discontinued one-to-one and put in place 5 minute checks 03/08: Continue current plans and regimen 03/09 continue tx. 03/10: continue current mgmt. continues disorganized and psychotic. see neuro note from today. continue with neuro w/u. 03/11: given zyprexa 5 and valium [address] and head CTA. head CTA WNL, chest CT showed numerous pulmonary nodules up to 10 mm in size. no change in presentation. due to persistent requests for discharge, 3-day notice submitted on her behalf. will work toward HCP affirmation by the court. 03/12: per pulm consult, chest CT more c/w rheumatological process than CA, recommended empiric steroid course. awaiting input from neuro. consider Bx of nodules otherwise. continue current mgmt for now. 03/13: variably calm and agitated. planning for bronchoscopy with pulmonary nodule Bx on sunday. continue current mgmt. case discussed with HCP Maricruz (daughter), who is in agreement with plan. 03/14: CSF with notable findings. will f/u with neuro on sunday. stable presentation for now, remains quite psychotic. continue current mgmt. bronchoscopy sunday. 03/15: no change from yesterday in presentation or plan. 03/16: stable presentation. continues confused, wanting to go home. HCP affirmation tomorrow. continue current mgmt. 03/17: stable presdentation. bronchoscopy pending. continue current mgmt. 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 awaiting bronchoscopy. remains psychotic. continue current mgmt for now. 03/20: no change in presentation. still awaiting go-ahead for brochoscopy. continue current mgmt. 03/22: No changes. Noted above. 03/23: awaiting insurance approval for bronchoscopy. stable presentation. 03/24: as for yesterday. 03/25: loudly RIS in milieu today. bronchoscopy scheduled for sunday at 1130. NPO past MN night. stable presentation. continue current mgmt. 03/26 pt presents as more disorganized and inattentive than usual showing more signs of delirious behavior. bronchoscopy was canceled,due to shortage of needles to complete biopsy. will order cbc, cmp, ammonia levels given increase disorganized behavior and worsening attention pointing at a more delirious presentation. Review of results from LP showing negative results for meningitis panel/paraneoplastic panel (including most common antibody found in SLC which is EARL 1 which was negative), elevated protein in CSF 131 without leukocytosis, also elevated CSF/serum IgG index. elevated anti-ds dna titer 1:80. Such results may point more to a rheumatological condition than infectious condition or malignancy. Mrs. Sharif's OP rhematologist, Dr. Al recommends trial of prednisone 40mg po daily at least for 2 weeks. 03/28: continue current management and treatment plan. 03/29: ?Steroids worsening her psychosis. Continue current management and treatment plan. Reason for continued inpatient stay Substantial Risk for: inability to function, rapid decompensation and med/psych decompensation Time Spent With Patient Time: Total time managing care of this patient today ____ minutes.
[2025-03-29 09:00] LABS: MANUAL DIFF FLAG NO
[2025-03-29 09:01] LABS: Hematocrit 37.1 % (37.0-47.0); Hemoglobin 12.7 g/dl (12.0-16.0); Imm Gran Abs Auto 0.02 X10*3/uL (0.00-0.03); Imm Gran Pct Auto 0.3 % (0.0-0.4); Lymphocytes Absolute Auto 2.6 X10*3/uL (1.2-4.9); Mean Corpuscular HGB Conc 34.2 g/dl (31.0-35.0); Mean Corpuscular Hemoglobin 30.8 pg (27.0-33.0); Mean Corpuscular Volume 90.0 fL (80.0-98.0); NRBC Abs Auto 0.000 X10*3/uL (0.0-0.012); NRBC Pct Auto 0.0 /100WBC (0.0-0.2); Platelet Count 194 X10*3/uL (160-400); Red Blood Count 4.12 X10*6/uL (4.20-5.50); White Blood Count 6.6 X10*3/uL (4.8-10.8)
[2025-03-29 09:10] LABS: Ammonia 35 umol/L (13-55)
[2025-03-29 09:14] LABS: Alanine Aminotransferase 28 U/L (0-31); Albumin Level 4.2 g/dL (3.5-5.0); Alkaline Phosphatase 68 U/L (39-117); Anion Gap 13 (12-20); Aspartate Amino Transferase 28 U/L (5-31); Blood Urea Nitrogen 28 mg/dL (9-16); Calcium 9.7 mg/dL (8.4-10.2); Carbon Dioxide 29 mmol/L (22-29); Chloride 104 mmol/L (96-108); Creatinine Clr Calc Pharmacy 49.6; Estimated Glomerular Filt Rate 50; Potassium 3.9 mmol/L (3.3-5.1); Sodium 142 mmol/L (135-145); Total Protein 7.8 g/dL (6.5-8.0)
[2025-03-29 09:25] VITALS: BP 126/58; PULSE 71; RESP 14; TEMP 36.2; O2SAT 94
[2025-03-29] MEDS: Fluticasone/Vilanterol 200/25 BLST.W.DEV 1 PUFF INHALE (09:29)
[2025-03-29] MEDS: Tiotropium Bromide 2.5 mcg 1 PUFF/2.5 MCG MIST.INHAL INHALE (09:29)
[2025-03-29] MEDS: NIFEdipine ER 30 MG TAB.ER.24 PO (09:29)
[2025-03-29 20:00] VITALS: BP 119/60; PULSE 67; RESP 16; TEMP 36.4; O2SAT 95
[2025-03-30 08:00] VITALS: BP 143/45; PULSE 62; TEMP 36.2; O2SAT 100
[2025-03-30 09:08] VITALS: BP 143/65
[2025-03-30] MEDS: NIFEdipine ER 30 MG TAB.ER.24 PO (09:08)
[2025-03-30] MEDS: Tiotropium Bromide 2.5 mcg 1 PUFF/2.5 MCG MIST.INHAL INHALE (09:15)
[2025-03-30] MEDS: Fluticasone/Vilanterol 200/25 BLST.W.DEV 1 PUFF INHALE (09:15)
--- NOTE | 2025-03-30 11:45 | P.PNPSI_ITS ---
Subjective Subjective Date of Service: 03/30/25 Reason For Visit: Abnormal CT chest Interim History: Self dialoguing continues. Talking to herself. Holds a book and talks into it as if it is a phone. Intermittently loud and agitated. Review of Systems Review of Systems nothing of note Yes all other systems are reviewed and are negative, Unobtainable due to mental status and Other (patient refused to answer ROS questions) Constitutional: Reports as per HPI Eyes: Reports as per HPI Reports as per HPI Cardiovascular: Reports as per HPI Respiratory: Reports as per HPI Gastrointestinal: Reports as per HPI Musculoskeletal: Reports as per HPI Skin/Breast: Reports as per HPI Reports as per HPI and Reports confusion Psychiatric: Reports as per HPI and Reports confusion Endocrine: Reports as per HPI Hematologic/Lymphatic: Reports as per HPI Allergic/Immunologic: Reports as per HPI Mental Status Exam Mental Status Exam Narrative: Appearance: own attire, adequate grooming and hygiene Behavior: restless, Orientation: alert, confused Memory: impaired Psychomotor Function: impulsive and restless, getting up, attempting to walk Speech: loud Mood: good Affect: calm, normo-intense, non-labile Thought Process: questionably organized Thought Content: paranoid delusions. Hallucinations: loudly RIS in milieu Insight: impairment Judgment: impairment Impulsivity: none noted Patient Appearance: Appropriate and Unkempt Patient Orientation: Person and Situation Level of Consciousness: Awake and Restless Patient Behavior: Talkative and Poor Eye Contact Mood Description: Labile Affect Description: Labile Patient Cognition Impaired: No Ability to Follow Directions: Poor Speech Pattern: Rambling and Poor Articulation Memory Description: Remote Impaired Diagnostics Vital Signs (24Hr): Vital Signs - 24 hr 03/29/25 20:00 03/30/25 08:00 03/30/25 09:08 Temperature 97.5 F 97.1 F Pulse Rate 67 62 Respiratory Rate 16 Blood Pressure 119/60 143/45 H 143/65 H Pulse Oximetry 95 100 Oxygen Delivery Method Room Air Room Air 03/30/25 09:08 Temperature Pulse Rate Respiratory Rate Blood Pressure 143/65 H Pulse Oximetry Oxygen Delivery Method BMI result Body Mass Index 31.2 Labs 03/29/25 08:55 03/29/25 08:55 Labs: Laboratory Results - last 48 hr 03/29/25 08:55 WBC 6.6 RBC 4.12 L Hgb 12.7 Hct 37.1 MCV 90.0 MCH 30.8 MCHC 34.2 RDW 12.0 Plt Count 194 D MPV 9.6 Immature Gran % (Auto) 0.3 Neut % (Auto) 50.4 Lymph % (Auto) 39.8 [place] % (Auto) 7.7 Eos % (Auto) 1.5 Baso % (Auto) 0.3 Lymph # (Auto) 2.6 [place] # (Auto) 0.5 Eos # (Auto) 0.1 Baso # (Auto) 0.0 Abs Immat Gran (auto) 0.02 Absolute Neuts (auto) 3.3 Absolute Nucleated RBC 0.000 Nucleated RBC % (auto) 0.0 Sodium 142 Potassium 3.9 Chloride 104 Carbon Dioxide 29 Anion Gap 13 BUN 28 H Creatinine 1.10 Estim Creat Clear Calc 49.6 Estimated GFR 50 Random Glucose 96 Calcium 9.7 Total Bilirubin 0.3 AST 28 ALT 28 Alkaline Phosphatase 68 Ammonia 35 Total Protein 7.8 Albumin 4.2 Imaging Radiology Impressions: ITS Impressions Head CT 03/05/25 15:51 IMPRESSION: 1. No acute intracranial abnormality. 2. Right-sided cochlear nerve implant with associated streak artifact. 3. Right-sided canal wall up mastoidectomy. Electronically signed by: Levi Greer MD 03/05/2025 04:25 PM EDT RP Lumbar Puncture Fluoroscopy 03/09/25 11:50 IMPRESSION: Successful fluoroscopy-guided lumbar puncture performed without immediate complications Electronically signed by: Thompson Andujar MD 03/09/2025 04:06 PM EDT RP Chest CT 03/11/25 11:52 IMPRESSION: 1. Multiple bilateral pulmonary nodules measuring up to 10 mm in size. Further evaluation should be based on Fleischner Society guidelines below. 2. Cardiomegaly. Findings consistent with pulmonary arterial hypertension. 3. No evidence of mediastinal or hilar lymphadenopathy. Fleischner Criteria for pulmonary nodule follow-up SOLID NODULES: Low risk patient: <6mm: no follow-up 6-8mm: 6 month follow-up CT >8mm: PET/Biopsy/ 3 month follow-up CT High risk patient: <6mm: 12 month follow-up CT 6-8mm: 6 month follow-up CT >8mm: PET/Biopsy/ 3 month follow-up CT SUB-SOLID/GROUNDGLASS NODULES: All patients: > or = 6mm: 6 month follow-up CT *Please note that in patients in the following categories, the Fleischner criteria do not apply: Immunocompromised, lung cancer screening population, age below 35, and patients with known malignancy Electronically signed by: Best Clemons MD 03/11/2025 01:45 PM EDT RP Head CTA 03/11/25 11:52 IMPRESSION: Head CT: No acute intracranial abnormality. CT angiogram of the head: No vascular occlusions. Electronically signed by: Gypsy Salamanca MD 03/11/2025 03:02 PM EDT RP Medications Medications Current Medications Acetaminophen (Acetaminophen 325 Mg Tablet) 650 mg PO Q6H PRN PRN Reason: Headache/Pain, Scale 1-10 Last Admin: 03/24/25 10:23 Dose: 650 mg Al Hydroxide/Mg Hydroxide (Magnesium Hydrox/Alum Hydrox 30 Ml Oral.Susp) 30 ml PO Q6H PRN PRN Reason: Heartburn/Nausea Albuterol Sulfate (Albuterol Sulfate 90 Mcg 8 Gm Inhaler) 2 puff INHALE Q4H PRN PRN Reason: Shortness Of Breath Or Wheezing Atorvastatin Calcium (Atorvastatin Calcium 40 Mg Tablet) 40 mg PO DAILY [facility] Last Admin: 03/30/25 09:08 Dose: 40 mg Benztropine Mesylate (Benztropine Mesylate 0.5 Mg Tablet) 0.5 mg PO DAILY [facility] Last Admin: 03/30/25 09:09 Dose: 0.5 mg Benztropine Mesylate (Benztropine Mesylate 1 Mg Tablet) 1 mg PO BEDTIME [facility] Last Admin: 03/29/25 20:57 Dose: 1 mg Clonazepam (Clonazepam Odt 0.5 Mg Tab.Rapdis) 0.5 mg PO BID PRN PRN Reason: severe anxiety/sleep Last Admin: 03/29/25 20:57 Dose: 0.5 mg Fluphenazine HCl (Fluphenazine Hcl 2.5 Mg/Ml 10 Ml Vial) 2.5 mg IM BID PRN PRN Reason: give if refuses oral per HCP Last Admin: 03/05/25 09:42 Dose: 2.5 mg Fluphenazine HCl (Fluphenazine Hcl 2.5 Mg Tablet) 2.5 mg PO DAILY [facility] Last Admin: 03/30/25 09:07 Dose: 2.5 mg Fluphenazine HCl (Fluphenazine Hcl 2.5 Mg Tablet) 5 mg PO BEDTIME [facility] Last Admin: 03/29/25 20:57 Dose: 5 mg Fluticasone/Vilanterol (Fluticasone/Vilanterol 200/25 Blst.W.Dev) 1 puff INHALE RDAILY [facility] Last Admin: 03/30/25 09:15 Dose: 1 puff Guaifenesin (Guaifenesin 200 Mg/10 Ml 10 Ml Liquid) 10 ml PO Q6H PRN PRN Reason: Cough Hydrochlorothiazide (Hydrochlorothiazide 25 Mg Tablet) 25 mg PO DAILY [facility] Last Admin: 03/30/25 09:08 Dose: 25 mg Levetiracetam (Levetiracetam 250 Mg Tablet) 250 mg PO BID [facility] Last Admin: 03/30/25 09:08 Dose: 250 mg Magnesium Hydroxide (Milk Of Magnesia 30 Ml Oral.Susp) 30 ml PO DAILY PRN PRN Reason: Constipation Methimazole (Methimazole 5 Mg Tablet) 5 mg PO DAILY [facility] Last Admin: 03/30/25 09:08 Dose: 5 mg Naloxone HCl (Naloxone Hcl 0.4 Mg/Ml Vial) 0.04 mg IVPUSH Q5M PRN PRN Reason: Excessive sedation or RR < 8 Nifedipine (Nifedipine Er 30 Mg Tab.Er.24) 30 mg PO DAILY [facility]; Protocol Last Admin: 03/30/25 09:08 Dose: 30 mg Olanzapine (Olanzapine 10 Mg Tablet) 10 mg PO Q6H PRN PRN Reason: severe agitation Last Admin: 03/29/25 00:21 Dose: 10 mg Prednisone (Prednisone 20 Mg Tablet) 40 mg PO DAILY [facility] Last Admin: 03/30/25 09:08 Dose: 40 mg Tiotropium Everly (Tiotropium Everly 2.5 Mcg 1 Puff/2.5 Mcg Mist.Inhal) 1 puff INHALE RDAILY [facility] Last Admin: 03/30/25 09:15 Dose: 1 puff Trazodone HCl (Trazodone Hcl 50 Mg Tablet) 50 mg PO BEDTIME MRX1 PRN PRN Reason: Insomnia Last Admin: 03/29/25 20:57 Dose: 50 mg Allergies Allergies Allergy/AdvReac Type Severity Reaction Status Date / Time latex Allergy Unknown Verified 03/09/25 11:50 peanut Allergy Unknown Verified 03/09/25 11:50 Penicillins Allergy Unknown Verified 03/09/25 11:50 Assessment & Plan Assessment & Plan (1) Psychosis: Status: Acute Code(s): F29 - Unspecified psychosis not due to a substance or known physiological condition (2) Pulmonary nodules: Status: Acute Code(s): R91.8 - Other nonspecific abnormal finding of lung field Assessment and Plan: Bloodwork plan for bronchosopcy, EBUS to sample mediastinal and hilar lymphnodes and transbronchial biopsies to assess for malinancy and sarcoidsosis The bronchoscopy is urgent in order to facilitate her medical treatment (3) Rheumatoid arthritis involving hand with positive rheumatoid factor: Status: Acute Code(s): M05.749 - Rheumatoid arthritis with rheumatoid factor of unspecified hand without organ or systems involvement Plan Mrs. Sharif is a 69 year-old woman who presents with a 3 month hx of new onset of psychosis (AH) and combination of paranoid delusions and cap gras delusions. No prior psychiatric hx. She does have of cocaine use but apparently had not used in some years. Daughter suspects she may have relapsed but no ongoing use. Pt presents with more complex theme of delusions. No additional medical work up available including head CT. CBC and cmp unremarkable. 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 It may be related to dementia process but complexity of delusions and psychosis not the common presentation for dementia that have psychosis early on such as in vascular dementia or LBD. Pt presents as gravely disable to able to care for self due to symptoms of psychosis and delusions. 02/03 increase night time risperidone 2mg po qhs increase cogetin at bedtime to 1mg po qhs. lower daily dose to 0.5mg po daily. continue cogentin 0.5mg po daily. clonazepam as prn olanzapine as prn for agitation 02/04 continue tx. 02/05 continue tx. 02/06 continue current dose of risperidone. NOTE THAT pt can't take doses higher than 3 mg/day of risperidone as higher doses had severe EPS. can use olanzapine as well per court order. 02/07/25: Patient has been agitated yelling loudly exist seeking, delusional thinking her daughter/son outside at the door to pick her up. PRNs given in the morning with mild effect. Patient became agitated, aggressive\, assaultive to 1 of the staff on the floor, yelling and hitting her face so grabbing her neck. Physical was started at 16:31 to 1634. Patient was given IM medication of Zyprexa 10 and Valium 10 with good effect. Tomorrow plan: Patient will be benefit from Valium 10 mg twice a day and Zyprexa 5 mg 3 times a day is added into her scheduled medication as current plan with risperidone is not effective. Patient also having a backup for risperidone if she refused. 02/08/25: Slept most of the morning and last night. In better behavior control. No aggressive behavior. She is quiet, self dialogue, and medication compliant. Due to receive restrain medication yesterday. I did not make any medication change. But the Valium and additional Zyprexa appears to be helpful. 02/09 will try to change keppra to depakote for seizures as keppra may exacerbate psychosis. increase risperidone 1mg po daily and 2mg po qhs. may need to add second antipsychotic. 02/10 continues to present as paranoid with AH. at times declines oral medications, requiring IM back per court order. 02/11 continue tx. 02/12 continue tx. 02/13 continue tx. 02/14: no changes today. Monitor for agitation around confusion about hospitalization 02/15: no changes today, self dialogue more overt/extensive today 02/16 add olanzapine 5mg po qhs. continue risperidone. minimal improvement if any. 02/17 continue tx. 02/18 seems more somnolent with bedtime olanzapine, will continue to monitor. 02/19 cbc showed thrombocytopenia, which is new and suspect related to depakote 02/20 pt appears more sedated since addition of olanzapine at bedtime. She continues to self dialogue. minimal improvement. 02/21: Continue current management and treatment plan. 02/22: continue current management and treatment plan. 02/23 continue tx. may need to affirm HCP try different antipsychotic. 02/24 continue tx. results of LENORE 1:360, pattern homogenous A. 02/25 will try rexulti, lower risperidone. pending coordination of medical care to see if underlying autoimmune condition has anything to do with current presentation. 02/26 discussed with hospital district attorney to dismiss sect 8, HCP invoked and can consent to other treatment. daughter Maricruz give permission to try different antipsychotic. 02/27 decrease risperidone to 1mg po daily, start prolixin 2.5mg po qhs, then increase to BID. continue olanzapine prn for agitation. olanzapine as well per court order. 03/03 pt seen by neurology, added HIV/RPR/LYME, can't have MRI due to cochlear implant. 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 Last Neurology appointment 01/2024. Missed appointment with rheumatology 05/2024, last seen in 02/26/2024. - Pt can't have MRI due to cochlear implant. Had head CT. - continue prolixin 2.5mg po daily, 5mg po qhs. will d/c risperidone, increase prolixin 5mg po BID, back up IM. 03/05 continue tx. 03/06 This advertising copy writer spoke with pt's reservation manager, Dr. Al obtained collateral information. Will coordinate with neurology and rheumatology once LP results are available. r/o reoccurance of pachymeningitis, lupus or other autoimmune cause for psychosis. 03/07: Continue current regimen and plans. Discontinued one-to-one and put in place 5 minute checks 03/08: Continue current plans and regimen 03/09 continue tx. 03/10: continue current mgmt. continues disorganized and psychotic. see neuro note from today. continue with neuro w/u. 03/11: given zyprexa 5 and valium [address] and head CTA. head CTA WNL, chest CT showed numerous pulmonary nodules up to 10 mm in size. no change in presentation. due to persistent requests for discharge, 3-day notice submitted on her behalf. will work toward HCP affirmation by the court. 03/12: per pulm consult, chest CT more c/w rheumatological process than CA, recommended empiric steroid course. awaiting input from neuro. consider Bx of nodules otherwise. continue current mgmt for now. 03/13: variably calm and agitated. planning for bronchoscopy with pulmonary nodule Bx on sunday. continue current mgmt. case discussed with HCP Maricruz (daughter), who is in agreement with plan. 03/14: CSF with notable findings. will f/u with neuro on sunday. stable presentation for now, remains quite psychotic. continue current mgmt. bronchoscopy sunday. 03/15: no change from yesterday in presentation or plan. 03/16: stable presentation. continues confused, wanting to go home. HCP affirmation tomorrow. continue current mgmt. 03/17: stable presdentation. bronchoscopy pending. continue current mgmt. 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 awaiting bronchoscopy. remains psychotic. continue current mgmt for now. 03/20: no change in presentation. still awaiting go-ahead for brochoscopy. continue current mgmt. 03/22: No changes. Noted above. 03/23: awaiting insurance approval for bronchoscopy. stable presentation. 03/24: as for yesterday. 03/25: loudly RIS in milieu today. bronchoscopy scheduled for sunday at 1130. NPO past MN night. stable presentation. continue current mgmt. 03/26 pt presents as more disorganized and inattentive than usual showing more signs of delirious behavior. bronchoscopy was canceled,due to shortage of needles to complete biopsy. will order cbc, cmp, ammonia levels given increase disorganized behavior and worsening attention pointing at a more delirious presentation. * Review of results from LP showing negative results for meningitis panel/paraneoplastic panel (including most common antibody found in SLC which is EARL 1 which was negative), elevated protein in CSF 131 without leukocytosis, also elevated CSF/serum IgG index. elevated anti-ds dna titer 1:80. Such results may point more to a rheumatological condition than infectious condition or malignancy. Mrs. Sharif's OP rhematologist, Dr. Al recommends trial of prednisone 40mg po daily at least for 2 weeks. 03/28: continue current management and treatment plan. 03/29: ?Steroids worsening her psychosis. Continue current management and treatment plan. 03/30: Continue current management and treatment plan. Reason for continued inpatient stay Substantial Risk for: inability to function and rapid decompensation Time Spent With Patient Time: Total time managing care of this patient today ____ minutes.
[2025-03-30 20:00] VITALS: BP 137/61; PULSE 71; RESP 16; TEMP 36.9; O2SAT 93
--- NOTE | 2025-03-31 09:05 | P.PNPSI_ITS ---
Subjective Subjective Date of Service: 03/31/25 Reason For Visit: Abnormal CT chest Subjective Notes: Conditional Voluntary (signed by HCP) Healthcare Proxy: Yes Interim History: Pt slept through the night. Pt tells this writer technical publications that she is having surgery next Sunday and that she is supposed to be discharged at 1pm today. She is hearing voice of her daughter and pt self-dialoguing as she was meeting with this writer technical publications. She is taking medications as prescribed. No improvement in terms of psychosis and delusions. Medication Compliance: Yes Side effects from medications: No Mental Status Exam Mental Status Exam Narrative: Appearance: own attire, adequate grooming and hygiene Behavior: less restless Orientation: alert, confused Memory: impaired Psychomotor Function: impulsive and restless, getting up, attempting to walk Speech: loud Mood: good Affect: calm, normo-intense, non-labile Thought Process: questionably organized Thought Content: paranoid delusions. Hallucinations: loudly RIS in milieu Insight: impairment Judgment: impairment Impulsivity: none noted Diagnostics Vital Signs (24Hr): Vital Signs - 24 hr 03/30/25 09:08 03/30/25 09:08 03/30/25 20:00 Temperature 98.4 F Pulse Rate 71 Respiratory Rate 16 Blood Pressure 143/65 H 143/65 H 137/61 Pulse Oximetry 93 Oxygen Delivery Method Room Air BMI result Body Mass Index 31.2 Labs 03/29/25 08:55 03/29/25 08:55 Labs: Laboratory Results - last 48 hr 03/29/25 08:55 WBC 6.6 RBC 4.12 L Hgb 12.7 Hct 37.1 MCV 90.0 MCH 30.8 MCHC 34.2 RDW 12.0 Plt Count 194 D MPV 9.6 Immature Gran % (Auto) 0.3 Neut % (Auto) 50.4 Lymph % (Auto) 39.8 [place] % (Auto) 7.7 Eos % (Auto) 1.5 Baso % (Auto) 0.3 Lymph # (Auto) 2.6 [place] # (Auto) 0.5 Eos # (Auto) 0.1 Baso # (Auto) 0.0 Abs Immat Gran (auto) 0.02 Absolute Neuts (auto) 3.3 Absolute Nucleated RBC 0.000 Nucleated RBC % (auto) 0.0 Sodium 142 Potassium 3.9 Chloride 104 Carbon Dioxide 29 Anion Gap 13 BUN 28 H Creatinine 1.10 Estim Creat Clear Calc 49.6 Estimated GFR 50 Random Glucose 96 Calcium 9.7 Total Bilirubin 0.3 AST 28 ALT 28 Alkaline Phosphatase 68 Ammonia 35 Total Protein 7.8 Albumin 4.2 Imaging Radiology Impressions: ITS Impressions Head CT 03/05/25 15:51 IMPRESSION: 1. No acute intracranial abnormality. 2. Right-sided cochlear nerve implant with associated streak artifact. 3. Right-sided canal wall up mastoidectomy. Electronically signed by: Levi Greer MD 03/05/2025 04:25 PM EDT RP Lumbar Puncture Fluoroscopy 03/09/25 11:50 IMPRESSION: Successful fluoroscopy-guided lumbar puncture performed without immediate complications Electronically signed by: Thompson Andujar MD 03/09/2025 04:06 PM EDT RP Chest CT 03/11/25 11:52 IMPRESSION: 1. Multiple bilateral pulmonary nodules measuring up to 10 mm in size. Further evaluation should be based on Fleischner Society guidelines below. 2. Cardiomegaly. Findings consistent with pulmonary arterial hypertension. 3. No evidence of mediastinal or hilar lymphadenopathy. Fleischner Criteria for pulmonary nodule follow-up SOLID NODULES: Low risk patient: <6mm: no follow-up 6-8mm: 6 month follow-up CT >8mm: PET/Biopsy/ 3 month follow-up CT High risk patient: <6mm: 12 month follow-up CT 6-8mm: 6 month follow-up CT >8mm: PET/Biopsy/ 3 month follow-up CT SUB-SOLID/GROUNDGLASS NODULES: All patients: > or = 6mm: 6 month follow-up CT *Please note that in patients in the following categories, the Fleischner criteria do not apply: Immunocompromised, lung cancer screening population, age below 35, and patients with known malignancy Electronically signed by: Best Clemons MD 03/11/2025 01:45 PM EDT RP Head CTA 03/11/25 11:52 IMPRESSION: Head CT: No acute intracranial abnormality. CT angiogram of the head: No vascular occlusions. Electronically signed by: Gypsy Salamanca MD 03/11/2025 03:02 PM EDT RP Medications Medications Current Medications Acetaminophen (Acetaminophen 325 Mg Tablet) 650 mg PO Q6H PRN PRN Reason: Headache/Pain, Scale 1-10 Last Admin: 03/24/25 10:23 Dose: 650 mg Al Hydroxide/Mg Hydroxide (Magnesium Hydrox/Alum Hydrox 30 Ml Oral.Susp) 30 ml PO Q6H PRN PRN Reason: Heartburn/Nausea Albuterol Sulfate (Albuterol Sulfate 90 Mcg 8 Gm Inhaler) 2 puff INHALE Q4H PRN PRN Reason: Shortness Of Breath Or Wheezing Atorvastatin Calcium (Atorvastatin Calcium 40 Mg Tablet) 40 mg PO DAILY [facility] Last Admin: 03/30/25 09:08 Dose: 40 mg Benztropine Mesylate (Benztropine Mesylate 0.5 Mg Tablet) 0.5 mg PO DAILY [facility] Last Admin: 03/30/25 09:09 Dose: 0.5 mg Benztropine Mesylate (Benztropine Mesylate 1 Mg Tablet) 1 mg PO BEDTIME [facility] Last Admin: 03/30/25 20:49 Dose: 1 mg Clonazepam (Clonazepam Odt 0.5 Mg Tab.Rapdis) 0.5 mg PO BID PRN PRN Reason: severe anxiety/sleep Last Admin: 03/29/25 20:57 Dose: 0.5 mg Fluphenazine HCl (Fluphenazine Hcl 2.5 Mg/Ml 10 Ml Vial) 2.5 mg IM BID PRN PRN Reason: give if refuses oral per HCP Last Admin: 03/05/25 09:42 Dose: 2.5 mg Fluphenazine HCl (Fluphenazine Hcl 2.5 Mg Tablet) 2.5 mg PO DAILY [facility] Last Admin: 03/30/25 09:07 Dose: 2.5 mg Fluphenazine HCl (Fluphenazine Hcl 2.5 Mg Tablet) 5 mg PO BEDTIME [facility] Last Admin: 03/30/25 20:49 Dose: 5 mg Fluticasone/Vilanterol (Fluticasone/Vilanterol 200/25 Blst.W.Dev) 1 puff INHALE RDAILY [facility] Last Admin: 03/30/25 09:15 Dose: 1 puff Guaifenesin (Guaifenesin 200 Mg/10 Ml 10 Ml Liquid) 10 ml PO Q6H PRN PRN Reason: Cough Hydrochlorothiazide (Hydrochlorothiazide 25 Mg Tablet) 25 mg PO DAILY [facility] Last Admin: 03/30/25 09:08 Dose: 25 mg Levetiracetam (Levetiracetam 250 Mg Tablet) 250 mg PO BID [facility] Last Admin: 03/30/25 20:49 Dose: 250 mg Magnesium Hydroxide (Milk Of Magnesia 30 Ml Oral.Susp) 30 ml PO DAILY PRN PRN Reason: Constipation Methimazole (Methimazole 5 Mg Tablet) 5 mg PO DAILY [facility] Last Admin: 03/30/25 09:08 Dose: 5 mg Naloxone HCl (Naloxone Hcl 0.4 Mg/Ml Vial) 0.04 mg IVPUSH Q5M PRN PRN Reason: Excessive sedation or RR < 8 Nifedipine (Nifedipine Er 30 Mg Tab.Er.24) 30 mg PO DAILY [facility]; Protocol Last Admin: 03/30/25 09:08 Dose: 30 mg Olanzapine (Olanzapine 10 Mg Tablet) 10 mg PO Q6H PRN PRN Reason: severe agitation Last Admin: 03/29/25 00:21 Dose: 10 mg Prednisone (Prednisone 20 Mg Tablet) 40 mg PO DAILY [facility] Last Admin: 03/30/25 09:08 Dose: 40 mg Tiotropium [place] (Tiotropium [place] 2.5 Mcg 1 Puff/2.5 Mcg Mist.Inhal) 1 puff INHALE RDAILY [facility] Last Admin: 03/30/25 09:15 Dose: 1 puff Trazodone HCl (Trazodone Hcl 50 Mg Tablet) 50 mg PO BEDTIME MRX1 PRN PRN Reason: Insomnia Last Admin: 03/29/25 20:57 Dose: 50 mg Allergies Allergies Allergy/AdvReac Type Severity Reaction Status Date / Time latex Allergy Unknown Verified 03/09/25 11:50 peanut Allergy Unknown Verified 03/09/25 11:50 Penicillins Allergy Unknown Verified 03/09/25 11:50 Assessment & Plan Assessment & Plan (1) Psychosis: Status: Acute Code(s): F29 - Unspecified psychosis not due to a substance or known physiological condition (2) Pulmonary nodules: Status: Acute Code(s): R91.8 - Other nonspecific abnormal finding of lung field Assessment and Plan: Bloodwork plan for bronchosopcy, EBUS to sample mediastinal and hilar lymphnodes and transbronchial biopsies to assess for malinancy and sarcoidsosis The bronchoscopy is urgent in order to facilitate her medical treatment (3) Rheumatoid arthritis involving hand with positive rheumatoid factor: Status: Acute Code(s): M05.749 - Rheumatoid arthritis with rheumatoid factor of unspecified hand without organ or systems involvement Plan Mrs. Sharif is a 69 year-old woman who presents with a 3 month hx of new onset of psychosis (AH) and combination of paranoid delusions and cap gras delusions. No prior psychiatric hx. She does have of cocaine use but apparently had not used in some years. Daughter suspects she may have relapsed but no ongoing use. Pt presents with more complex theme of delusions. No additional medical work up available including head CT. CBC and cmp unremarkable. 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 It may be related to dementia process but complexity of delusions and psychosis not the common presentation for dementia that have psychosis early on such as in vascular dementia or LBD. Pt presents as gravely disable to able to care for self due to symptoms of psychosis and delusions. 02/03 increase night time risperidone 2mg po qhs increase cogetin at bedtime to 1mg po qhs. lower daily dose to 0.5mg po daily. continue cogentin 0.5mg po daily. clonazepam as prn olanzapine as prn for agitation 02/04 continue tx. 02/05 continue tx. 02/06 continue current dose of risperidone. NOTE THAT pt can't take doses higher than 3 mg/day of risperidone as higher doses had severe EPS. can use olanzapine as well per court order. 02/07/25: Patient has been agitated yelling loudly exist seeking, delusional thinking her daughter/son outside at the door to pick her up. PRNs given in the morning with mild effect. Patient became agitated, aggressive\, assaultive to 1 of the staff on the floor, yelling and hitting her face so grabbing her neck. Physical was started at 16:31 to 1634. Patient was given IM medication of Zyprexa 10 and Valium 10 with good effect. Tomorrow plan: Patient will be benefit from Valium 10 mg twice a day and Zyprexa 5 mg 3 times a day is added into her scheduled medication as current plan with risperidone is not effective. Patient also having a backup for risperidone if she refused. 02/08/25: Slept most of the morning and last night. In better behavior control. No aggressive behavior. She is quiet, self dialogue, and medication compliant. Due to receive restrain medication yesterday. I did not make any medication change. But the Valium and additional Zyprexa appears to be helpful. 02/09 will try to change keppra to depakote for seizures as keppra may exacerbate psychosis. increase risperidone 1mg po daily and 2mg po qhs. may need to add second antipsychotic. 02/10 continues to present as paranoid with AH. at times declines oral medications, requiring IM back per court order. 02/11 continue tx. 02/12 continue tx. 02/13 continue tx. 02/14: no changes today. Monitor for agitation around confusion about hospitalization 02/15: no changes today, self dialogue more overt/extensive today 02/16 add olanzapine 5mg po qhs. continue risperidone. minimal improvement if any. 02/17 continue tx. 02/18 seems more somnolent with bedtime olanzapine, will continue to monitor. 02/19 cbc showed thrombocytopenia, which is new and suspect related to depakote 02/20 pt appears more sedated since addition of olanzapine at bedtime. She continues to self dialogue. minimal improvement. 02/21: Continue current management and treatment plan. 02/22: continue current management and treatment plan. 02/23 continue tx. may need to affirm HCP try different antipsychotic. 02/24 continue tx. results of LENORE 1:360, pattern homogenous A. 02/25 will try rexulti, lower risperidone. pending coordination of medical care to see if underlying autoimmune condition has anything to do with current presentation. 02/26 discussed with hospital title attorney to dismiss sect 8, HCP invoked and can consent to other treatment. daughter Maricruz give permission to try different antipsychotic. 02/27 decrease risperidone to 1mg po daily, start prolixin 2.5mg po qhs, then increase to BID. continue olanzapine prn for agitation. olanzapine as well per court order. 03/03 pt seen by neurology, added HIV/RPR/LYME, can't have MRI due to cochlear implant. 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 Last Neurology appointment 01/2024. Missed appointment with rheumatology 05/2024, last seen in 02/26/2024. - Pt can't have MRI due to cochlear implant. Had head CT. - continue prolixin 2.5mg po daily, 5mg po qhs. will d/c risperidone, increase prolixin 5mg po BID, back up IM. 03/05 continue tx. 03/06 This writer technical publications spoke with pt's rental agent, Dr. Al obtained collateral information. Will coordinate with neurology and rheumatology once LP results are available. r/o reoccurance of pachymeningitis, lupus or other autoimmune cause for psychosis. 03/07: Continue current regimen and plans. Discontinued one-to-one and put in place 5 minute checks 03/08: Continue current plans and regimen 03/09 continue tx. 03/10: continue current mgmt. continues disorganized and psychotic. see neuro note from today. continue with neuro w/u. 03/11: given zyprexa 5 and valium [address] and head CTA. head CTA WNL, chest CT showed numerous pulmonary nodules up to 10 mm in size. no change in presentation. due to persistent requests for discharge, 3-day notice submitted on her behalf. will work toward HCP affirmation by the court. 03/12: per pulm consult, chest CT more c/w rheumatological process than CA, recommended empiric steroid course. awaiting input from neuro. consider Bx of nodules otherwise. continue current mgmt for now. 03/13: variably calm and agitated. planning for bronchoscopy with pulmonary nodule Bx on sunday. continue current mgmt. case discussed with HCP Maricruz (daughter), who is in agreement with plan. 03/14: CSF with notable findings. will f/u with neuro on sunday. stable presentation for now, remains quite psychotic. continue current mgmt. bronchoscopy sunday. 03/15: no change from yesterday in presentation or plan. 03/16: stable presentation. continues confused, wanting to go home. HCP affirmation tomorrow. continue current mgmt. 03/17: stable presdentation. bronchoscopy pending. continue current mgmt. 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 awaiting bronchoscopy. remains psychotic. continue current mgmt for now. 03/20: no change in presentation. still awaiting go-ahead for brochoscopy. continue current mgmt. 03/22: No changes. Noted above. 03/23: awaiting insurance approval for bronchoscopy. stable presentation. 03/24: as for yesterday. 03/25: loudly RIS in milieu today. bronchoscopy scheduled for sunday at 1130. NPO past MN night. stable presentation. continue current mgmt. 03/26 pt presents as more disorganized and inattentive than usual showing more signs of delirious behavior. bronchoscopy was canceled,due to shortage of needles to complete biopsy. will order cbc, cmp, ammonia levels given increase disorganized behavior and worsening attention pointing at a more delirious presentation. * Review of results from LP showing negative results for meningitis panel/paraneoplastic panel (including most common antibody found in SLC which is EARL 1 which was negative), elevated protein in CSF 131 without leukocytosis, also elevated CSF/serum IgG index. elevated anti-ds dna titer 1:80. Such results may point more to a rheumatological condition than infectious condition or malignancy. Mrs. Sharif's OP rhematologist, Dr. Al recommends trial of prednisone 40mg po daily at least for 2 weeks. 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 03/31 increase prolixin to 5mg po BID. continue all other medications including prednisone 40mg po daily. Reason for continued inpatient stay Substantial Risk for: inability to function Time Spent With Patient Time: Total time managing care of this patient today ____ minutes.
[2025-03-31 10:15] VITALS: BP 112/60; PULSE 66; RESP 16; TEMP 36.5; O2SAT 97
[2025-03-31] MEDS: Tiotropium Bromide 2.5 mcg 1 PUFF/2.5 MCG MIST.INHAL INHALE (10:30)
[2025-03-31] MEDS: Fluticasone/Vilanterol 200/25 BLST.W.DEV 1 PUFF INHALE (10:30)
[2025-03-31 10:31] VITALS: BP 112/60
[2025-03-31 10:35] VITALS: BP 112/60
[2025-03-31] MEDS: NIFEdipine ER 30 MG TAB.ER.24 PO (10:35)
[2025-03-31 20:00] VITALS: BP 138/66; PULSE 61; RESP 18; TEMP 36.5; O2SAT 97
[2025-03-31] MEDS: clonazePAM ODT 0.5 MG TAB.RAPDIS PO (20:37)
[2025-04-01 08:00] VITALS: BP 126/59; PULSE 56; RESP 15; TEMP 36.1; O2SAT 96
[2025-04-01 08:25] VITALS: BP 126/59
[2025-04-01] MEDS: NIFEdipine ER 30 MG TAB.ER.24 PO (08:25)
[2025-04-01] MEDS: Tiotropium Bromide 2.5 mcg 1 PUFF/2.5 MCG MIST.INHAL INHALE (08:26)
[2025-04-01] MEDS: Fluticasone/Vilanterol 200/25 BLST.W.DEV 1 PUFF INHALE (08:26)
--- NOTE | 2025-04-01 09:13 | HO.PSYCHPN ---
Subjective Subjective Date of Service: 04/01/25 Reason For Visit: Abnormal CT chest Subjective Notes: Conditional Voluntary Interim History: Pt slept all night. Pt ambulating with walker, more steady. Pt reports her daughter is telling her that she is coming to pick her up today at 1pm. Pt reports I have a surgery on Sunday, I have to go today. Pt able to answer more simple questions appropriately. However, she continues to present with AH (mostly hears her daughter), paranoid delusions (thinks there are many bodies on this unit and people are being killed here). She appears calmer. She reports she is hungry. She is eating well. VS stable. She reports she has less pain on back. She reports her finger joins sometimes hurt. Discussed with her OP line o scribe operator, Dr. Al possibility of transfer to [facility]. Medication Compliance: Yes Side effects from medications: No Mental Status Exam Mental Status Exam Narrative: Appearance: own attire, adequate grooming and hygiene Behavior: less restless Orientation: alert, confused Memory: impaired Psychomotor Function: impulsive and restless, getting up, attempting to walk Speech: loud Mood: good Affect: calm, normo-intense, non-labile Thought Process: more organized, although content with paranoia. Thought Content: paranoid delusions. Hallucinations: AH of her daughter telling her she is coming to get her at 1pm. Insight: impairment Judgment: impairment Impulsivity: none noted Diagnostics Vital Signs (24Hr): Vital Signs - 24 hr 03/31/25 10:15 03/31/25 10:31 03/31/25 10:35 Temperature 97.7 F Pulse Rate 66 Respiratory Rate 16 Blood Pressure 112/60 112/60 112/60 Pulse Oximetry 97 Oxygen Delivery Method Room Air 03/31/25 20:00 04/01/25 08:00 04/01/25 08:25 Temperature 97.7 F 97.0 F Pulse Rate 61 56 Respiratory Rate 18 15 Blood Pressure 138/66 126/59 L 126/59 L Pulse Oximetry 97 96 Oxygen Delivery Method Room Air Room Air BMI result Body Mass Index 31.2 Labs 03/29/25 08:55 03/29/25 08:55 Imaging Radiology Impressions: ITS Impressions Head CT 03/05/25 15:51 IMPRESSION: 1. No acute intracranial abnormality. 2. Right-sided cochlear nerve implant with associated streak artifact. 3. Right-sided canal wall up mastoidectomy. Electronically signed by: Levi Greer MD 03/05/2025 04:25 PM EDT RP Lumbar Puncture Fluoroscopy 03/09/25 11:50 IMPRESSION: Successful fluoroscopy-guided lumbar puncture performed without immediate complications Electronically signed by: Thompson Andujar MD 03/09/2025 04:06 PM EDT RP Chest CT 03/11/25 11:52 IMPRESSION: 1. Multiple bilateral pulmonary nodules measuring up to 10 mm in size. Further evaluation should be based on Fleischner Society guidelines below. 2. Cardiomegaly. Findings consistent with pulmonary arterial hypertension. 3. No evidence of mediastinal or hilar lymphadenopathy. Fleischner Criteria for pulmonary nodule follow-up SOLID NODULES: Low risk patient: <6mm: no follow-up 6-8mm: 6 month follow-up CT >8mm: PET/Biopsy/ 3 month follow-up CT High risk patient: <6mm: 12 month follow-up CT 6-8mm: 6 month follow-up CT >8mm: PET/Biopsy/ 3 month follow-up CT SUB-SOLID/GROUNDGLASS NODULES: All patients: > or = 6mm: 6 month follow-up CT *Please note that in patients in the following categories, the Fleischner criteria do not apply: Immunocompromised, lung cancer screening population, age below 35, and patients with known malignancy Electronically signed by: Best Clemons MD 03/11/2025 01:45 PM EDT RP Head CTA 03/11/25 11:52 IMPRESSION: Head CT: No acute intracranial abnormality. CT angiogram of the head: No vascular occlusions. Electronically signed by: Gypsy Salamanca MD 03/11/2025 03:02 PM EDT RP Medications Medications Current Medications Acetaminophen (Acetaminophen 325 Mg Tablet) 650 mg PO Q6H PRN PRN Reason: Headache/Pain, Scale 1-10 Last Admin: 03/24/25 10:23 Dose: 650 mg Al Hydroxide/Mg Hydroxide (Magnesium Hydrox/Alum Hydrox 30 Ml Oral.Susp) 30 ml PO Q6H PRN PRN Reason: Heartburn/Nausea Albuterol Sulfate (Albuterol Sulfate 90 Mcg 8 Gm Inhaler) 2 puff INHALE Q4H PRN PRN Reason: Shortness Of Breath Or Wheezing Atorvastatin Calcium (Atorvastatin Calcium 40 Mg Tablet) 40 mg PO DAILY [facility] Last Admin: 04/01/25 08:26 Dose: 40 mg Benztropine Mesylate (Benztropine Mesylate 0.5 Mg Tablet) 0.5 mg PO DAILY [facility] Last Admin: 04/01/25 08:26 Dose: 0.5 mg Benztropine Mesylate (Benztropine Mesylate 1 Mg Tablet) 1 mg PO BEDTIME [facility] Last Admin: 03/31/25 20:37 Dose: 1 mg Clonazepam (Clonazepam Odt 0.5 Mg Tab.Rapdis) 0.5 mg PO BID PRN PRN Reason: severe anxiety/sleep Last Admin: 03/31/25 20:37 Dose: 0.5 mg Fluphenazine HCl (Fluphenazine Hcl 2.5 Mg/Ml 10 Ml Vial) 2.5 mg IM BID PRN PRN Reason: give if refuses oral per HCP Last Admin: 03/05/25 09:42 Dose: 2.5 mg Fluphenazine HCl (Fluphenazine Hcl 2.5 Mg Tablet) 5 mg PO BID [facility] Last Admin: 04/01/25 08:25 Dose: 5 mg Fluticasone/Vilanterol (Fluticasone/Vilanterol 200/25 Blst.W.Dev) 1 puff INHALE RDAILY [facility] Last Admin: 04/01/25 08:26 Dose: 1 puff Guaifenesin (Guaifenesin 200 Mg/10 Ml 10 Ml Liquid) 10 ml PO Q6H PRN PRN Reason: Cough Hydrochlorothiazide (Hydrochlorothiazide 25 Mg Tablet) 25 mg PO DAILY [facility] Last Admin: 04/01/25 08:25 Dose: 25 mg Levetiracetam (Levetiracetam 250 Mg Tablet) 250 mg PO BID [facility] Last Admin: 04/01/25 08:26 Dose: 250 mg Magnesium Hydroxide (Milk Of Magnesia 30 Ml Oral.Susp) 30 ml PO DAILY PRN PRN Reason: Constipation Methimazole (Methimazole 5 Mg Tablet) 5 mg PO DAILY [facility] Last Admin: 04/01/25 08:26 Dose: 5 mg Naloxone HCl (Naloxone Hcl 0.4 Mg/Ml Vial) 0.04 mg IVPUSH Q5M PRN PRN Reason: Excessive sedation or RR < 8 Nifedipine (Nifedipine Er 30 Mg Tab.Er.24) 30 mg PO DAILY [facility]; Protocol Last Admin: 04/01/25 08:25 Dose: 30 mg Olanzapine (Olanzapine 10 Mg Tablet) 10 mg PO Q6H PRN PRN Reason: severe agitation Last Admin: 03/29/25 00:21 Dose: 10 mg Prednisone (Prednisone 20 Mg Tablet) 40 mg PO DAILY [facility] Last Admin: 04/01/25 08:25 Dose: 40 mg Tiotropium [place] (Tiotropium [place] 2.5 Mcg 1 Puff/2.5 Mcg Mist.Inhal) 1 puff INHALE RDAILY [facility] Last Admin: 04/01/25 08:26 Dose: 1 puff Trazodone HCl (Trazodone Hcl 50 Mg Tablet) 50 mg PO BEDTIME MRX1 PRN PRN Reason: Insomnia Last Admin: 03/31/25 20:38 Dose: 50 mg Allergies Allergies Allergy/AdvReac Type Severity Reaction Status Date / Time latex Allergy Unknown Verified 03/09/25 11:50 peanut Allergy Unknown Verified 03/09/25 11:50 Penicillins Allergy Unknown Verified 03/09/25 11:50 Assessment & Plan Assessment & Plan (1) Psychosis: Status: Acute Code(s): F29 - Unspecified psychosis not due to a substance or known physiological condition (2) Pulmonary nodules: Status: Acute Code(s): R91.8 - Other nonspecific abnormal finding of lung field Assessment and Plan: Bloodwork plan for bronchosopcy, EBUS to sample mediastinal and hilar lymphnodes and transbronchial biopsies to assess for malinancy and sarcoidsosis The bronchoscopy is urgent in order to facilitate her medical treatment (3) Rheumatoid arthritis involving hand with positive rheumatoid factor: Status: Acute Code(s): M05.749 - Rheumatoid arthritis with rheumatoid factor of unspecified hand without organ or systems involvement Plan Mrs. Sharif is a 69 year-old woman who presents with a 3 month hx of new onset of psychosis (AH) and combination of paranoid delusions and cap gras delusions. No prior psychiatric hx. She does have of cocaine use but apparently had not used in some years. Daughter suspects she may have relapsed but no ongoing use. Pt presents with more complex theme of delusions. No additional medical work up available including head CT. CBC and cmp unremarkable. 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 It may be related to dementia process but complexity of delusions and psychosis not the common presentation for dementia that have psychosis early on such as in vascular dementia or LBD. Pt presents as gravely disable to able to care for self due to symptoms of psychosis and delusions. 02/03 increase night time risperidone 2mg po qhs increase cogetin at bedtime to 1mg po qhs. lower daily dose to 0.5mg po daily. continue cogentin 0.5mg po daily. clonazepam as prn olanzapine as prn for agitation 02/04 continue tx. 02/05 continue tx. 02/06 continue current dose of risperidone. NOTE THAT pt can't take doses higher than 3 mg/day of risperidone as higher doses had severe EPS. can use olanzapine as well per court order. 02/07/25: Patient has been agitated yelling loudly exist seeking, delusional thinking her daughter/son outside at the door to pick her up. PRNs given in the morning with mild effect. Patient became agitated, aggressive\, assaultive to 1 of the staff on the floor, yelling and hitting her face so grabbing her neck. Physical was started at 16:31 to 1634. Patient was given IM medication of Zyprexa 10 and Valium 10 with good effect. Tomorrow plan: Patient will be benefit from Valium 10 mg twice a day and Zyprexa 5 mg 3 times a day is added into her scheduled medication as current plan with risperidone is not effective. Patient also having a backup for risperidone if she refused. 02/08/25: Slept most of the morning and last night. In better behavior control. No aggressive behavior. She is quiet, self dialogue, and medication compliant. Due to receive restrain medication yesterday. I did not make any medication change. But the Valium and additional Zyprexa appears to be helpful. 02/09 will try to change keppra to depakote for seizures as keppra may exacerbate psychosis. increase risperidone 1mg po daily and 2mg po qhs. may need to add second antipsychotic. 02/10 continues to present as paranoid with AH. at times declines oral medications, requiring IM back per court order. 02/11 continue tx. 02/12 continue tx. 02/13 continue tx. 02/14: no changes today. Monitor for agitation around confusion about hospitalization 02/15: no changes today, self dialogue more overt/extensive today 02/16 add olanzapine 5mg po qhs. continue risperidone. minimal improvement if any. 02/17 continue tx. 02/18 seems more somnolent with bedtime olanzapine, will continue to monitor. 02/19 cbc showed thrombocytopenia, which is new and suspect related to depakote 02/20 pt appears more sedated since addition of olanzapine at bedtime. She continues to self dialogue. minimal improvement. 02/21: Continue current management and treatment plan. 02/22: continue current management and treatment plan. 02/23 continue tx. may need to affirm HCP try different antipsychotic. 02/24 continue tx. results of LENORE 1:360, pattern homogenous A. 02/25 will try rexulti, lower risperidone. pending coordination of medical care to see if underlying autoimmune condition has anything to do with current presentation. 02/26 discussed with hospital estate attorney to dismiss sect 8, HCP invoked and can consent to other treatment. daughter Maricruz give permission to try different antipsychotic. 02/27 decrease risperidone to 1mg po daily, start prolixin 2.5mg po qhs, then increase to BID. continue olanzapine prn for agitation. olanzapine as well per court order. 03/03 pt seen by neurology, added HIV/RPR/LYME, can't have MRI due to cochlear implant. 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 Last Neurology appointment 01/2024. Missed appointment with rheumatology 05/2024, last seen in 02/26/2024. - Pt can't have MRI due to cochlear implant. Had head CT. - continue prolixin 2.5mg po daily, 5mg po qhs. will d/c risperidone, increase prolixin 5mg po BID, back up IM. 03/05 continue tx. 03/06 This service writer spoke with pt's line o scribe operator, Dr. Al obtained collateral information. Will coordinate with neurology and rheumatology once LP results are available. r/o reoccurance of pachymeningitis, lupus or other autoimmune cause for psychosis. 03/07: Continue current regimen and plans. Discontinued one-to-one and put in place 5 minute checks 03/08: Continue current plans and regimen 03/09 continue tx. 03/10: continue current mgmt. continues disorganized and psychotic. see neuro note from today. continue with neuro w/u. 03/11: given zyprexa 5 and valium [address] and head CTA. head CTA WNL, chest CT showed numerous pulmonary nodules up to 10 mm in size. no change in presentation. due to persistent requests for discharge, 3-day notice submitted on her behalf. will work toward HCP affirmation by the court. 03/12: per pulm consult, chest CT more c/w rheumatological process than CA, recommended empiric steroid course. awaiting input from neuro. consider Bx of nodules otherwise. continue current mgmt for now. 03/13: variably calm and agitated. planning for bronchoscopy with pulmonary nodule Bx on sunday. continue current mgmt. case discussed with HCP Maricruz (daughter), who is in agreement with plan. 03/14: CSF with notable findings. will f/u with neuro on sunday. stable presentation for now, remains quite psychotic. continue current mgmt. bronchoscopy sunday. 03/15: no change from yesterday in presentation or plan. 03/16: stable presentation. continues confused, wanting to go home. HCP affirmation tomorrow. continue current mgmt. 03/17: stable presdentation. bronchoscopy pending. continue current mgmt. 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 awaiting bronchoscopy. remains psychotic. continue current mgmt for now. 03/20: no change in presentation. still awaiting go-ahead for brochoscopy. continue current mgmt. 03/22: No changes. Noted above. 03/23: awaiting insurance approval for bronchoscopy. stable presentation. 03/24: as for yesterday. 03/25: loudly RIS in milieu today. bronchoscopy scheduled for sunday at 1130. NPO past MN night. stable presentation. continue current mgmt. 03/26 pt presents as more disorganized and inattentive than usual showing more signs of delirious behavior. bronchoscopy was canceled,due to shortage of needles to complete biopsy. will order cbc, cmp, ammonia levels given increase disorganized behavior and worsening attention pointing at a more delirious presentation. Review of results from LP showing negative results for meningitis panel/paraneoplastic panel (including most common antibody found in SLC which is EARL 1 which was negative), elevated protein in CSF 131 without leukocytosis, also elevated CSF/serum IgG index. elevated anti-ds dna titer 1:80. Such results may point more to a rheumatological condition than infectious condition or malignancy. Mrs. Sharif's OP rhematologist, Dr. Al recommends trial of prednisone 40mg po daily at least for 2 weeks. 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 03/31 increase prolixin to 5mg po BID. continue all other medications including prednisone 40mg po daily. 04/01 continue tx. Discussed with OP line o scribe operator possibility to transfer her to [facility] for further tx of lupus/autoimmune condition. Reason for continued inpatient stay Substantial Risk for: inability to function Time Spent With Patient Time: Total time managing care of this patient today ____ minutes.
[2025-04-01 19:47] VITALS: BP 143/63; PULSE 69; RESP 16; TEMP 36.1; O2SAT 98
[2025-04-02 09:07] VITALS: BP 119/56; PULSE 63; RESP 16; TEMP 36.3; O2SAT 97
[2025-04-02] MEDS: Fluticasone/Vilanterol 200/25 BLST.W.DEV 1 PUFF INHALE (09:08)
[2025-04-02] MEDS: NIFEdipine ER 30 MG TAB.ER.24 PO (09:10)
[2025-04-02] MEDS: Tiotropium Bromide 2.5 mcg 1 PUFF/2.5 MCG MIST.INHAL INHALE (09:10)
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
[2025-04-02 19:50] VITALS: BP 139/65; PULSE 67; RESP 16; TEMP 36; O2SAT 96
[2025-04-03 08:47] VITALS: BP 127/58; PULSE 59; RESP 16; TEMP 36.2; O2SAT 97
[2025-04-03] MEDS: Fluticasone/Vilanterol 200/25 BLST.W.DEV 1 PUFF INHALE (08:48)
[2025-04-03] MEDS: NIFEdipine ER 30 MG TAB.ER.24 PO (08:51)
[2025-04-03] MEDS: Tiotropium Bromide 2.5 mcg 1 PUFF/2.5 MCG MIST.INHAL INHALE (08:52)
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
[2025-04-03 20:18] VITALS: BP 150/65; PULSE 79; RESP 17; TEMP 35.8; O2SAT 95
--- NOTE | 2025-04-04 07:42 | HO.PSYCHPN ---
Subjective Subjective Date of Service: 04/04/25 Reason For Visit: Abnormal CT chest Subjective Notes: Section 8 Interim History: Pt slept through the night. less internal preoccupation and paranoia . Denies depression. Still paranoid around staff but less intense.Overall no acute management issues. Adherent with medications. Medication Compliance: Yes Side effects from medications: No Attending Groups: No Review of Systems Acute medical concerns: No Review of Systems Review of Systems nothing of note Constitutional: Reports as per HPI Eyes: Reports as per HPI Reports as per HPI Cardiovascular: Reports as per HPI Respiratory: Reports as per HPI Gastrointestinal: Reports as per HPI Musculoskeletal: Reports as per HPI Skin/Breast: Reports as per HPI Reports as per HPI and Reports confusion Psychiatric: Reports as per HPI and Reports confusion Endocrine: Reports as per HPI Hematologic/Lymphatic: Reports as per HPI Allergic/Immunologic: Reports as per HPI Mental Status Exam Mental Status Exam Narrative: Appearance: own attire, adequate grooming and hygiene Behavior: less restless Orientation: alert, confused Memory: impaired Psychomotor Function: less restless Speech: loud Mood: ok Affect: calm, normo-intense, non-labile Thought Process: more organized, although content with paranoia. Thought Content: paranoid delusions. Hallucinations: AH / internal preoccupation, but less intense Insight: impairment Judgment: impairment Impulsivity: none noted Diagnostics Vital Signs (24Hr): Vital Signs - 24 hr 04/03/25 08:47 04/03/25 20:18 Temperature 97.2 F 96.4 F L Pulse Rate 59 79 Respiratory Rate 16 17 Blood Pressure 127/58 L 150/65 H Pulse Oximetry 97 95 Oxygen Delivery Method Room Air Room Air BMI result Body Mass Index 31.2 Labs 03/29/25 08:55 03/29/25 08:55 Imaging Radiology Impressions: ITS Impressions Head CT 03/05/25 15:51 IMPRESSION: 1. No acute intracranial abnormality. 2. Right-sided cochlear nerve implant with associated streak artifact. 3. Right-sided canal wall up mastoidectomy. Electronically signed by: Levi Greer MD 03/05/2025 04:25 PM EDT Lumbar Puncture Fluoroscopy 03/09/25 11:50 IMPRESSION: Successful fluoroscopy-guided lumbar puncture performed without immediate complications Electronically signed by: Thompson Andujar MD 03/09/2025 04:06 PM EDT RP Chest CT 03/11/25 11:52 IMPRESSION: 1. Multiple bilateral pulmonary nodules measuring up to 10 mm in size. Further evaluation should be based on Fleischner Society guidelines below. 2. Cardiomegaly. Findings consistent with pulmonary arterial hypertension. 3. No evidence of mediastinal or hilar lymphadenopathy. Fleischner Criteria for pulmonary nodule follow-up SOLID NODULES: Low risk patient: <6mm: no follow-up 6-8mm: 6 month follow-up CT >8mm: PET/Biopsy/ 3 month follow-up CT High risk patient: <6mm: 12 month follow-up CT 6-8mm: 6 month follow-up CT >8mm: PET/Biopsy/ 3 month follow-up CT SUB-SOLID/GROUNDGLASS NODULES: All patients: > or = 6mm: 6 month follow-up CT *Please note that in patients in the following categories, the Fleischner criteria do not apply: Immunocompromised, lung cancer screening population, age below 35, and patients with known malignancy Electronically signed by: Best Clemons MD 03/11/2025 01:45 PM EDT RP Head CTA 03/11/25 11:52 IMPRESSION: Head CT: No acute intracranial abnormality. CT angiogram of the head: No vascular occlusions. Electronically signed by: Gypsy Salamanca MD 03/11/2025 03:02 PM EDT RP Medications Medications Current Medications Acetaminophen (Acetaminophen 325 Mg Tablet) 650 mg PO Q6H PRN PRN Reason: Headache/Pain, Scale 1-10 Last Admin: 03/24/25 10:23 Dose: 650 mg Al Hydroxide/Mg Hydroxide (Magnesium Hydrox/Alum Hydrox 30 Ml Oral.Susp) 30 ml PO Q6H PRN PRN Reason: Heartburn/Nausea Albuterol Sulfate (Albuterol Sulfate 90 Mcg 8 Gm Inhaler) 2 puff INHALE Q4H PRN PRN Reason: Shortness Of Breath Or Wheezing Atorvastatin Calcium (Atorvastatin Calcium 40 Mg Tablet) 40 mg PO DAILY [facility] Last Admin: 04/03/25 08:50 Dose: 40 mg Benztropine Mesylate (Benztropine Mesylate 0.5 Mg Tablet) 0.5 mg PO DAILY [facility] Last Admin: 04/03/25 08:50 Dose: 0.5 mg Benztropine Mesylate (Benztropine Mesylate 1 Mg Tablet) 1 mg PO BEDTIME [facility] Last Admin: 04/03/25 19:55 Dose: 1 mg Clonazepam (Clonazepam Odt 0.5 Mg Tab.Rapdis) 0.5 mg PO BID PRN PRN Reason: severe anxiety/sleep Last Admin: 03/31/25 20:37 Dose: 0.5 mg Fluphenazine HCl (Fluphenazine Hcl 2.5 Mg/Ml 10 Ml Vial) 2.5 mg IM BID PRN PRN Reason: give if refuses oral per HCP Last Admin: 03/05/25 09:42 Dose: 2.5 mg Fluphenazine HCl (Fluphenazine Hcl 5 Mg Tablet) 5 mg PO TID [facility] Last Admin: 04/03/25 19:55 Dose: 5 mg Fluticasone/Vilanterol (Fluticasone/Vilanterol 200/25 Blst.W.Dev) 1 puff INHALE RDAILY [facility] Last Admin: 04/03/25 08:48 Dose: 1 puff Guaifenesin (Guaifenesin 200 Mg/10 Ml 10 Ml Liquid) 10 ml PO Q6H PRN PRN Reason: Cough Hydrochlorothiazide (Hydrochlorothiazide 25 Mg Tablet) 25 mg PO DAILY [facility] Last Admin: 04/03/25 08:51 Dose: 25 mg Levetiracetam (Levetiracetam 250 Mg Tablet) 250 mg PO BID [facility] Last Admin: 04/03/25 19:55 Dose: 250 mg Magnesium Hydroxide (Milk Of Magnesia 30 Ml Oral.Susp) 30 ml PO DAILY PRN PRN Reason: Constipation Methimazole (Methimazole 5 Mg Tablet) 5 mg PO DAILY [facility] Last Admin: 04/03/25 08:51 Dose: 5 mg Naloxone HCl (Naloxone Hcl 0.4 Mg/Ml Vial) 0.04 mg IVPUSH Q5M PRN PRN Reason: Excessive sedation or RR < 8 Nifedipine (Nifedipine Er 30 Mg Tab.Er.24) 30 mg PO DAILY [facility]; Protocol Last Admin: 04/03/25 08:51 Dose: 30 mg Olanzapine (Olanzapine 10 Mg Tablet) 10 mg PO Q6H PRN PRN Reason: severe agitation Last Admin: 03/29/25 00:21 Dose: 10 mg Prednisone (Prednisone 20 Mg Tablet) 40 mg PO DAILY [facility] Last Admin: 04/03/25 08:50 Dose: 40 mg Tiotropium Pelham (Tiotropium Pelham 2.5 Mcg 1 Puff/2.5 Mcg Mist.Inhal) 1 puff INHALE RDAILY [facility] Last Admin: 04/03/25 08:52 Dose: 1 puff Trazodone HCl (Trazodone Hcl 50 Mg Tablet) 50 mg PO BEDTIME MRX1 PRN PRN Reason: Insomnia Last Admin: 03/31/25 20:38 Dose: 50 mg Allergies Allergies Allergy/AdvReac Type Severity Reaction Status Date / Time latex Allergy Unknown Verified 03/09/25 11:50 peanut Allergy Unknown Verified 03/09/25 11:50 Penicillins Allergy Unknown Verified 03/09/25 11:50 Assessment & Plan Assessment & Plan (1) Psychosis: Status: Acute Code(s): F29 - Unspecified psychosis not due to a substance or known physiological condition (2) Pulmonary nodules: Status: Acute Code(s): R91.8 - Other nonspecific abnormal finding of lung field Assessment and Plan: Bloodwork plan for bronchosopcy, EBUS to sample mediastinal and hilar lymphnodes and transbronchial biopsies to assess for malinancy and sarcoidsosis The bronchoscopy is urgent in order to facilitate her medical treatment (3) Rheumatoid arthritis involving hand with positive rheumatoid factor: Status: Acute Code(s): M05.749 - Rheumatoid arthritis with rheumatoid factor of unspecified hand without organ or systems involvement Plan Mrs. Sharif is a 69 year-old woman who presents with a 3 month hx of new onset of psychosis (AH) and combination of paranoid delusions and cap gras delusions. No prior psychiatric hx. She does have of cocaine use but apparently had not used in some years. Daughter suspects she may have relapsed but no ongoing use. Pt presents with more complex theme of delusions. No additional medical work up available including head CT. CBC and cmp unremarkable. 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 It may be related to dementia process but complexity of delusions and psychosis not the common presentation for dementia that have psychosis early on such as in vascular dementia or LBD. Pt presents as gravely disable to able to care for self due to symptoms of psychosis and delusions. 7/8 increase night time risperidone 2mg po qhs increase cogetin at bedtime to 1mg po qhs. lower daily dose to 0.5mg po daily. continue cogentin 0.5mg po daily. clonazepam as prn olanzapine as prn for agitation 02/04 continue tx. 02/05 continue tx. 02/06 continue current dose of risperidone. NOTE THAT pt can't take doses higher than 3 mg/day of risperidone as higher doses had severe EPS. can use olanzapine as well per court order. 02/07/25: Patient has been agitated yelling loudly exist seeking, delusional thinking her daughter/son outside at the door to pick her up. PRNs given in the morning with mild effect. Patient became agitated, aggressive\, assaultive to 1 of the staff on the floor, yelling and hitting her face so grabbing her neck. Physical was started at 16:31 to 1634. Patient was given IM medication of Zyprexa 10 and Valium 10 with good effect. Tomorrow plan: Patient will be benefit from Valium 10 mg twice a day and Zyprexa 5 mg 3 times a day is added into her scheduled medication as current plan with risperidone is not effective. Patient also having a backup for risperidone if she refused. 02/08/25: Slept most of the morning and last night. In better behavior control. No aggressive behavior. She is quiet, self dialogue, and medication compliant. Due to receive restrain medication yesterday. I did not make any medication change. But the Valium and additional Zyprexa appears to be helpful. 02/09 will try to change keppra to depakote for seizures as keppra may exacerbate psychosis. increase risperidone 1mg po daily and 2mg po qhs. may need to add second antipsychotic. 02/10 continues to present as paranoid with AH. at times declines oral medications, requiring IM back per court order. 02/11 continue tx. 02/12 continue tx. 02/13 continue tx. 02/14: no changes today. Monitor for agitation around confusion about hospitalization 02/15: no changes today, self dialogue more overt/extensive today 02/16 add olanzapine 5mg po qhs. continue risperidone. minimal improvement if any. 02/17 continue tx. 02/18 seems more somnolent with bedtime olanzapine, will continue to monitor. 02/19 cbc showed thrombocytopenia, which is new and suspect related to depakote 02/20 pt appears more sedated since addition of olanzapine at bedtime. She continues to self dialogue. minimal improvement. 02/21: Continue current management and treatment plan. 02/22: continue current management and treatment plan. 02/23 continue tx. may need to affirm HCP try different antipsychotic. 02/24 continue tx. results of LENORE 1:360, pattern homogenous A. 02/25 will try rexulti, lower risperidone. pending coordination of medical care to see if underlying autoimmune condition has anything to do with current presentation. 02/26 discussed with hospital patent attorney to dismiss sect 8, HCP invoked and can consent to other treatment. daughter Maricruz give permission to try different antipsychotic. 02/27 decrease risperidone to 1mg po daily, start prolixin 2.5mg po qhs, then increase to BID. continue olanzapine prn for agitation. olanzapine as well per court order. 03/03 pt seen by neurology, added HIV/RPR/LYME, can't have MRI due to cochlear implant. 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 Last Neurology appointment 01/2024. Missed appointment with rheumatology 05/2024, last seen in 02/26/2024. - Pt can't have MRI due to cochlear implant. Had head CT. - continue prolixin 2.5mg po daily, 5mg po qhs. will d/c risperidone, increase prolixin 5mg po BID, back up IM. 03/05 continue tx. 03/06 This gag writer spoke with pt's black oxide coating equipment tender, Dr. Al obtained collateral information. Will coordinate with neurology and rheumatology once LP results are available. r/o reoccurance of pachymeningitis, lupus or other autoimmune cause for psychosis. 8/9: Continue current regimen and plans. Discontinued one-to-one and put in place 5 minute checks 03/08: Continue current plans and regimen 03/09 continue tx. 03/10: continue current mgmt. continues disorganized and psychotic. see neuro note from today. continue with neuro w/u. 03/11: given zyprexa 5 and valium [address] and head CTA. head CTA WNL, chest CT showed numerous pulmonary nodules up to 10 mm in size. no change in presentation. due to persistent requests for discharge, 3-day notice submitted on her behalf. will work toward HCP affirmation by the court. 03/12: per pulm consult, chest CT more c/w rheumatological process than CA, recommended empiric steroid course. awaiting input from neuro. consider Bx of nodules otherwise. continue current mgmt for now. 03/13: variably calm and agitated. planning for bronchoscopy with pulmonary nodule Bx on sunday. continue current mgmt. case discussed with HCP Maricruz (daughter), who is in agreement with plan. 03/14: CSF with notable findings. will f/u with neuro on sunday. stable presentation for now, remains quite psychotic. continue current mgmt. bronchoscopy sunday. 03/15: no change from yesterday in presentation or plan. 03/16: stable presentation. continues confused, wanting to go home. HCP affirmation tomorrow. continue current mgmt. 03/17: stable presdentation. bronchoscopy pending. continue current mgmt. 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 awaiting bronchoscopy. remains psychotic. continue current mgmt for now. 03/20: no change in presentation. still awaiting go-ahead for brochoscopy. continue current mgmt. 03/22: No changes. Noted above. 03/23: awaiting insurance approval for bronchoscopy. stable presentation. 03/24: as for yesterday. 03/25: loudly RIS in milieu today. bronchoscopy scheduled for sunday at 1130. NPO past MN night. stable presentation. continue current mgmt. 03/26 pt presents as more disorganized and inattentive than usual showing more signs of delirious behavior. bronchoscopy was canceled,due to shortage of needles to complete biopsy. will order cbc, cmp, ammonia levels given increase disorganized behavior and worsening attention pointing at a more delirious presentation. Review of results from LP showing negative results for meningitis panel/paraneoplastic panel (including most common antibody found in [facility] which is EARL 1 which was negative), elevated protein in CSF 131 without leukocytosis, also elevated CSF/serum IgG index. elevated anti-ds dna titer 1:80. Such results may point more to a rheumatological condition than infectious condition or malignancy. Mrs. Sharif's OP black oxide coating equipment tender, Dr. Al recommends trial of prednisone 40mg po daily at least for 2 weeks. 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 03/31 increase prolixin to 5mg po BID. continue all other medications including prednisone 40mg po daily. 04/01 discussed with her OP black oxide coating equipment tender, Dr. Al possibility of transferring to [facility] for further tx of autoimmune condition, suspected also having lupus. continue prednisone. Spoke with daughter who is HCP, daughter concern about pt going to [facility] due to being dismissed several times when pt was first brought psychotic. 04/04/2025: No changes to current regimen Reason for continued inpatient stay Substantial Risk for: inability to function and rapid decompensation Time Spent With Patient Time: Total time managing care of this patient today ____ minutes.
[2025-04-04 09:57] VITALS: BP 151/68; PULSE 60; RESP 14; TEMP 36.7; O2SAT 98
[2025-04-04] MEDS: NIFEdipine ER 30 MG TAB.ER.24 PO (09:59)
[2025-04-04] MEDS: Tiotropium Bromide 2.5 mcg 1 PUFF/2.5 MCG MIST.INHAL INHALE (09:59)
[2025-04-04] MEDS: Fluticasone/Vilanterol 200/25 BLST.W.DEV 1 PUFF INHALE (09:59)
[2025-04-04 20:00] VITALS: BP 125/60; PULSE 70; RESP 18; TEMP 36.3; O2SAT 98
[2025-04-05 08:26] VITALS: BP 122/64; PULSE 60; RESP 18; TEMP 36.4; O2SAT 99
[2025-04-05] MEDS: NIFEdipine ER 30 MG TAB.ER.24 PO (08:32)
[2025-04-05] MEDS: Fluticasone/Vilanterol 200/25 BLST.W.DEV 1 PUFF INHALE (08:32)
[2025-04-05] MEDS: Tiotropium Bromide 2.5 mcg 1 PUFF/2.5 MCG MIST.INHAL INHALE (08:32)
--- NOTE | 2025-04-05 11:28 | HO.PSYCHPN ---
Subjective Subjective Date of Service: 04/05/25 Reason For Visit: Abnormal CT chest Interim History: Pt slept through the night. has been sleeping more during the daytime. Did miss a meal yesterday which is unusual. Denies depression. Still paranoid around staff but less intense. Overall no acute management issues. Adherent with medications- Continue to review dosing by primary team and balance ongoing psychosis with any potential sedation etc.. Medication Compliance: Yes Side effects from medications: No Attending Groups: No Review of Systems Acute medical concerns: No Review of Systems Review of Systems nothing of note Mental Status Exam Mental Status Exam Narrative: Appearance: own attire, adequate grooming and hygiene Behavior: less restless Orientation: alert, Memory: impaired Psychomotor Function: less restless Speech: loud Mood: ok Affect: calm, normo-intense, non-labile Thought Process: more organized, although content with paranoia. Thought Content: paranoid delusions. Hallucinations: AH / internal preoccupation, but less intense Insight: impairment Judgment: impairment Impulsivity: none noted Diagnostics Vital Signs (24Hr): Vital Signs - 24 hr 04/04/25 20:00 04/05/25 08:26 Temperature 97.3 F 97.5 F Pulse Rate 70 60 Respiratory Rate 18 18 Blood Pressure 125/60 122/64 Pulse Oximetry 98 99 Oxygen Delivery Method Room Air Room Air BMI result Body Mass Index 31.2 Labs 03/29/25 08:55 03/29/25 08:55 Imaging Radiology Impressions: ITS Impressions Head CT 03/05/25 15:51 IMPRESSION: 1. No acute intracranial abnormality. 2. Right-sided cochlear nerve implant with associated streak artifact. 3. Right-sided canal wall up mastoidectomy. Electronically signed by: Levi Greer MD 03/05/2025 04:25 PM EDT Lumbar Puncture Fluoroscopy 03/09/25 11:50 IMPRESSION: Successful fluoroscopy-guided lumbar puncture performed without immediate complications Electronically signed by: Thompson Andujar MD 03/09/2025 04:06 PM EDT RP Chest CT 03/11/25 11:52 IMPRESSION: 1. Multiple bilateral pulmonary nodules measuring up to 10 mm in size. Further evaluation should be based on Fleischner Society guidelines below. 2. Cardiomegaly. Findings consistent with pulmonary arterial hypertension. 3. No evidence of mediastinal or hilar lymphadenopathy. Fleischner Criteria for pulmonary nodule follow-up SOLID NODULES: Low risk patient: <6mm: no follow-up 6-8mm: 6 month follow-up CT >8mm: PET/Biopsy/ 3 month follow-up CT High risk patient: <6mm: 12 month follow-up CT 6-8mm: 6 month follow-up CT >8mm: PET/Biopsy/ 3 month follow-up CT SUB-SOLID/GROUNDGLASS NODULES: All patients: > or = 6mm: 6 month follow-up CT *Please note that in patients in the following categories, the Fleischner criteria do not apply: Immunocompromised, lung cancer screening population, age below 35, and patients with known malignancy Electronically signed by: Best Clemons MD 03/11/2025 01:45 PM EDT RP Head CTA 03/11/25 11:52 IMPRESSION: Head CT: No acute intracranial abnormality. CT angiogram of the head: No vascular occlusions. Electronically signed by: Gypsy Salamanca MD 03/11/2025 03:02 PM EDT RP Medications Medications Current Medications Acetaminophen (Acetaminophen 325 Mg Tablet) 650 mg PO Q6H PRN PRN Reason: Headache/Pain, Scale 1-10 Last Admin: 03/24/25 10:23 Dose: 650 mg Al Hydroxide/Mg Hydroxide (Magnesium Hydrox/Alum Hydrox 30 Ml Oral.Susp) 30 ml PO Q6H PRN PRN Reason: Heartburn/Nausea Albuterol Sulfate (Albuterol Sulfate 90 Mcg 8 Gm Inhaler) 2 puff INHALE Q4H PRN PRN Reason: Shortness Of Breath Or Wheezing Atorvastatin Calcium (Atorvastatin Calcium 40 Mg Tablet) 40 mg PO DAILY [facility] Last Admin: 04/05/25 08:32 Dose: 40 mg Benztropine Mesylate (Benztropine Mesylate 0.5 Mg Tablet) 0.5 mg PO DAILY ALLY Last Admin: 04/05/25 08:32 Dose: 0.5 mg Benztropine Mesylate (Benztropine Mesylate 1 Mg Tablet) 1 mg PO BEDTIME [facility] Last Admin: 04/04/25 20:14 Dose: 1 mg Clonazepam (Clonazepam Odt 0.5 Mg Tab.Rapdis) 0.5 mg PO BID PRN PRN Reason: severe anxiety/sleep Last Admin: 03/31/25 20:37 Dose: 0.5 mg Fluphenazine HCl (Fluphenazine Hcl 2.5 Mg/Ml 10 Ml Vial) 2.5 mg IM BID PRN PRN Reason: give if refuses oral per HCP Last Admin: 03/05/25 09:42 Dose: 2.5 mg Fluphenazine HCl (Fluphenazine Hcl 2.5 Mg Tablet) 5 mg PO TID [facility] Last Admin: 04/05/25 08:45 Dose: 5 mg Fluticasone/Vilanterol (Fluticasone/Vilanterol 200/25 Blst.W.Dev) 1 puff INHALE RDAILY [facility] Last Admin: 04/05/25 08:32 Dose: 1 puff Guaifenesin (Guaifenesin 200 Mg/10 Ml 10 Ml Liquid) 10 ml PO Q6H PRN PRN Reason: Cough Hydrochlorothiazide (Hydrochlorothiazide 25 Mg Tablet) 25 mg PO DAILY [facility] Last Admin: 04/05/25 08:32 Dose: 25 mg Levetiracetam (Levetiracetam 250 Mg Tablet) 250 mg PO BID [facility] Last Admin: 04/05/25 08:32 Dose: 250 mg Magnesium Hydroxide (Milk Of Magnesia 30 Ml Oral.Susp) 30 ml PO DAILY PRN PRN Reason: Constipation Methimazole (Methimazole 5 Mg Tablet) 5 mg PO DAILY [facility] Last Admin: 04/05/25 08:32 Dose: 5 mg Naloxone HCl (Naloxone Hcl 0.4 Mg/Ml Vial) 0.04 mg IVPUSH Q5M PRN PRN Reason: Excessive sedation or RR < 8 Nifedipine (Nifedipine Er 30 Mg Tab.Er.24) 30 mg PO DAILY [facility]; Protocol Last Admin: 04/05/25 08:32 Dose: 30 mg Olanzapine (Olanzapine 10 Mg Tablet) 10 mg PO Q6H PRN PRN Reason: severe agitation Last Admin: 04/04/25 23:21 Dose: 10 mg Prednisone (Prednisone 20 Mg Tablet) 40 mg PO DAILY [facility] Last Admin: 04/05/25 08:32 Dose: 40 mg Tiotropium [place] (Tiotropium [place] 2.5 Mcg 1 Puff/2.5 Mcg Mist.Inhal) 1 puff INHALE RDAILY [facility] Last Admin: 04/05/25 08:32 Dose: 1 puff Trazodone HCl (Trazodone Hcl 50 Mg Tablet) 50 mg PO BEDTIME MRX1 PRN PRN Reason: Insomnia Last Admin: 04/04/25 23:21 Dose: 50 mg Allergies Allergies Allergy/AdvReac Type Severity Reaction Status Date / Time latex Allergy Unknown Verified 03/09/25 11:50 peanut Allergy Unknown Verified 03/09/25 11:50 Penicillins Allergy Unknown Verified 03/09/25 11:50 Assessment & Plan Assessment & Plan (1) Psychosis: Status: Acute Code(s): F29 - Unspecified psychosis not due to a substance or known physiological condition (2) Pulmonary nodules: Status: Acute Code(s): R91.8 - Other nonspecific abnormal finding of lung field Assessment and Plan: Bloodwork plan for bronchosopcy, EBUS to sample mediastinal and hilar lymphnodes and transbronchial biopsies to assess for malinancy and sarcoidsosis The bronchoscopy is urgent in order to facilitate her medical treatment (3) Rheumatoid arthritis involving hand with positive rheumatoid factor: Status: Acute Code(s): M05.749 - Rheumatoid arthritis with rheumatoid factor of unspecified hand without organ or systems involvement Plan Mrs. Sharif is a 69 year-old woman who presents with a 3 month hx of new onset of psychosis (AH) and combination of paranoid delusions and cap gras delusions. No prior psychiatric hx. She does have of cocaine use but apparently had not used in some years. Daughter suspects she may have relapsed but no ongoing use. Pt presents with more complex theme of delusions. No additional medical work up available including head CT. CBC and cmp unremarkable. 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 It may be related to dementia process but complexity of delusions and psychosis not the common presentation for dementia that have psychosis early on such as in vascular dementia or LBD. Pt presents as gravely disable to able to care for self due to symptoms of psychosis and delusions. 02/03 increase night time risperidone 2mg po qhs increase cogetin at bedtime to 1mg po qhs. lower daily dose to 0.5mg po daily. continue cogentin 0.5mg po daily. clonazepam as prn olanzapine as prn for agitation 02/04 continue tx. 02/05 continue tx. 02/06 continue current dose of risperidone. NOTE THAT pt can't take doses higher than 3 mg/day of risperidone as higher doses had severe EPS. can use olanzapine as well per court order. 02/07/25: Patient has been agitated yelling loudly exist seeking, delusional thinking her daughter/son outside at the door to pick her up. PRNs given in the morning with mild effect. Patient became agitated, aggressive\, assaultive to 1 of the staff on the floor, yelling and hitting her face so grabbing her neck. Physical was started at 16:31 to 1634. Patient was given IM medication of Zyprexa 10 and Valium 10 with good effect. Tomorrow plan: Patient will be benefit from Valium 10 mg twice a day and Zyprexa 5 mg 3 times a day is added into her scheduled medication as current plan with risperidone is not effective. Patient also having a backup for risperidone if she refused. 02/08/25: Slept most of the morning and last night. In better behavior control. No aggressive behavior. She is quiet, self dialogue, and medication compliant. Due to receive restrain medication yesterday. I did not make any medication change. But the Valium and additional Zyprexa appears to be helpful. 02/09 will try to change keppra to depakote for seizures as keppra may exacerbate psychosis. increase risperidone 1mg po daily and 2mg po qhs. may need to add second antipsychotic. 02/10 continues to present as paranoid with AH. at times declines oral medications, requiring IM back per court order. 02/11 continue tx. 02/12 continue tx. 02/13 continue tx. 02/14: no changes today. Monitor for agitation around confusion about hospitalization 02/15: no changes today, self dialogue more overt/extensive today 02/16 add olanzapine 5mg po qhs. continue risperidone. minimal improvement if any. 02/17 continue tx. 02/18 seems more somnolent with bedtime olanzapine, will continue to monitor. 02/19 cbc showed thrombocytopenia, which is new and suspect related to depakote 02/20 pt appears more sedated since addition of olanzapine at bedtime. She continues to self dialogue. minimal improvement. 02/21: Continue current management and treatment plan. 02/22: continue current management and treatment plan. 02/23 continue tx. may need to affirm HCP try different antipsychotic. 02/24 continue tx. results of LENORE 1:360, pattern homogenous A. 02/25 will try rexulti, lower risperidone. pending coordination of medical care to see if underlying autoimmune condition has anything to do with current presentation. 02/26 discussed with hospital projection welding machine operator to dismiss sect 8, HCP invoked and can consent to other treatment. daughter Maricruz give permission to try different antipsychotic. 02/27 decrease risperidone to 1mg po daily, start prolixin 2.5mg po qhs, then increase to BID. continue olanzapine prn for agitation. olanzapine as well per court order. 03/03 pt seen by neurology, added HIV/RPR/LYME, can't have MRI due to cochlear implant. 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 Last Neurology appointment 01/2024. Missed appointment with rheumatology 05/2024, last seen in 02/26/2024. - Pt can't have MRI due to cochlear implant. Had head CT. - continue prolixin 2.5mg po daily, 5mg po qhs. will d/c risperidone, increase prolixin 5mg po BID, back up IM. 03/05 continue tx. 03/06 This law writer spoke with pt's automotive parts counter assistant, Dr. Al obtained collateral information. Will coordinate with neurology and rheumatology once LP results are available. r/o reoccurance of pachymeningitis, lupus or other autoimmune cause for psychosis. 03/07: Continue current regimen and plans. Discontinued one-to-one and put in place 5 minute checks 03/08: Continue current plans and regimen 03/09 continue tx. 03/10: continue current mgmt. continues disorganized and psychotic. see neuro note from today. continue with neuro w/u. 03/11: given zyprexa 5 and valium [address] and head CTA. head CTA WNL, chest CT showed numerous pulmonary nodules up to 10 mm in size. no change in presentation. due to persistent requests for discharge, 3-day notice submitted on her behalf. will work toward HCP affirmation by the court. 03/12: per pulm consult, chest CT more c/w rheumatological process than CA, recommended empiric steroid course. awaiting input from neuro. consider Bx of nodules otherwise. continue current mgmt for now. 03/13: variably calm and agitated. planning for bronchoscopy with pulmonary nodule Bx on sunday. continue current mgmt. case discussed with HCP Maricruz (daughter), who is in agreement with plan. 03/14: CSF with notable findings. will f/u with neuro on sunday. stable presentation for now, remains quite psychotic. continue current mgmt. bronchoscopy sunday. 03/15: no change from yesterday in presentation or plan. 03/16: stable presentation. continues confused, wanting to go home. HCP affirmation tomorrow. continue current mgmt. 03/17: stable presdentation. bronchoscopy pending. continue current mgmt. 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 awaiting bronchoscopy. remains psychotic. continue current mgmt for now. 03/20: no change in presentation. still awaiting go-ahead for brochoscopy. continue current mgmt. 03/22: No changes. Noted above. 03/23: awaiting insurance approval for bronchoscopy. stable presentation. 03/24: as for yesterday. 03/25: loudly RIS in milieu today. bronchoscopy scheduled for sunday at 1130. NPO past MN night. stable presentation. continue current mgmt. 03/26 pt presents as more disorganized and inattentive than usual showing more signs of delirious behavior. bronchoscopy was canceled,due to shortage of needles to complete biopsy. will order cbc, cmp, ammonia levels given increase disorganized behavior and worsening attention pointing at a more delirious presentation. Review of results from LP showing negative results for meningitis panel/paraneoplastic panel (including most common antibody found in SLC which is EARL 1 which was negative), elevated protein in CSF 131 without leukocytosis, also elevated CSF/serum IgG index. elevated anti-ds dna titer 1:80. Such results may point more to a rheumatological condition than infectious condition or malignancy. Mrs. Sharif's OP automotive parts counter assistant, Dr. Al recommends trial of prednisone 40mg po daily at least for 2 weeks. 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 03/31 increase prolixin to 5mg po BID. continue all other medications including prednisone 40mg po daily. 04/01 discussed with her OP automotive parts counter assistant, Dr. Al possibility of transferring to [facility] for further tx of autoimmune condition, suspected also having lupus. continue prednisone. Spoke with daughter who is HCP, daughter concern about pt going to [facility] due to being dismissed several times when pt was first brought psychotic. 04/04/2025: No changes to current regimen 04/05: Continue to review dosing by primary team and balance ongoing psychosis with any potential sedation etc Reason for continued inpatient stay Substantial Risk for: inability to function Time Spent With Patient Time: Total time managing care of this patient today ____ minutes.
[2025-04-05 19:54] VITALS: BP 137/62; PULSE 70; RESP 18; TEMP 36.3; O2SAT 96
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
[2025-04-06 08:20] VITALS: BP 107/58; PULSE 68; RESP 17; TEMP 36; O2SAT 97
[2025-04-06] MEDS: Tiotropium Bromide 2.5 mcg 1 PUFF/2.5 MCG MIST.INHAL INHALE (09:11)
[2025-04-06] MEDS: NIFEdipine ER 30 MG TAB.ER.24 PO (09:12)
[2025-04-06] MEDS: Fluticasone/Vilanterol 200/25 BLST.W.DEV 1 PUFF INHALE (09:13)
[2025-04-06 20:00] VITALS: BP 137/63; PULSE 64; RESP 16; TEMP 36.6; O2SAT 98
[2025-04-07 08:10] VITALS: BP 137/64; PULSE 61; RESP 16; TEMP 36.3; O2SAT 98
[2025-04-07] MEDS: Tiotropium Bromide 2.5 mcg 1 PUFF/2.5 MCG MIST.INHAL INHALE (08:31)
[2025-04-07] MEDS: Fluticasone/Vilanterol 200/25 BLST.W.DEV 1 PUFF INHALE (08:31)
[2025-04-07] MEDS: NIFEdipine ER 30 MG TAB.ER.24 PO (08:33)
--- NOTE | 2025-04-07 18:17 | P.PNPSI_ITS ---
Subjective Subjective Date of Service: 04/07/25 Reason For Visit: Abnormal CT chest Subjective Notes: Conditional Voluntary Interim History: Pt slept through the night. She is taking medications as prescribed. There is slight improvement in her attention in that she is able to answer questions in a more linear and consistent way. She is less guarded and suspicious towards staff and this senior mortgage underwriter but continues to hear voices of her daughter who she believes every day is coming at 1pm to pick her up. She reports today that she may be safe here but she wants to see if she goes home if same situation is going on- referring to paranoid delusions. She is eating well. No aggression towards self or others. Diagnostics Vital Signs (24Hr): Vital Signs - 24 hr 04/06/25 20:00 04/07/25 08:10 Temperature 98 F 97.3 F Pulse Rate 64 61 Respiratory Rate 16 16 Blood Pressure 137/63 137/64 Pulse Oximetry 98 98 Oxygen Delivery Method Room Air Room Air BMI result Body Mass Index 31.2 Labs 03/29/25 08:55 03/29/25 08:55 Imaging Radiology Impressions: ITS Impressions Head CT 03/05/25 15:51 IMPRESSION: 1. No acute intracranial abnormality. 2. Right-sided cochlear nerve implant with associated streak artifact. 3. Right-sided canal wall up mastoidectomy. Electronically signed by: Levi Greer MD 03/05/2025 04:25 PM EDT Lumbar Puncture Fluoroscopy 03/09/25 11:50 IMPRESSION: Successful fluoroscopy-guided lumbar puncture performed without immediate complications Electronically signed by: Thompson Andujar MD 03/09/2025 04:06 PM EDT RP Chest CT 03/11/25 11:52 IMPRESSION: 1. Multiple bilateral pulmonary nodules measuring up to 10 mm in size. Further evaluation should be based on Fleischner Society guidelines below. 2. Cardiomegaly. Findings consistent with pulmonary arterial hypertension. 3. No evidence of mediastinal or hilar lymphadenopathy. Fleischner Criteria for pulmonary nodule follow-up SOLID NODULES: Low risk patient: <6mm: no follow-up 6-8mm: 6 month follow-up CT >8mm: PET/Biopsy/ 3 month follow-up CT High risk patient: <6mm: 12 month follow-up CT 6-8mm: 6 month follow-up CT >8mm: PET/Biopsy/ 3 month follow-up CT SUB-SOLID/GROUNDGLASS NODULES: All patients: > or = 6mm: 6 month follow-up CT *Please note that in patients in the following categories, the Fleischner criteria do not apply: Immunocompromised, lung cancer screening population, age below 35, and patients with known malignancy Electronically signed by: Best Clemons MD 03/11/2025 01:45 PM EDT RP Head CTA 03/11/25 11:52 IMPRESSION: Head CT: No acute intracranial abnormality. CT angiogram of the head: No vascular occlusions. Electronically signed by: Gypsy Salamanca MD 03/11/2025 03:02 PM EDT RP Medications Medications Current Medications Acetaminophen (Acetaminophen 325 Mg Tablet) 650 mg PO Q6H PRN PRN Reason: Headache/Pain, Scale 1-10 Last Admin: 04/07/25 12:42 Dose: 650 mg Al Hydroxide/Mg Hydroxide (Magnesium Hydrox/Alum Hydrox 30 Ml Oral.Susp) 30 ml PO Q6H PRN PRN Reason: Heartburn/Nausea Albuterol Sulfate (Albuterol Sulfate 90 Mcg 8 Gm Inhaler) 2 puff INHALE Q4H PRN PRN Reason: Shortness Of Breath Or Wheezing Atorvastatin Calcium (Atorvastatin Calcium 40 Mg Tablet) 40 mg PO DAILY [facility] Last Admin: 04/07/25 08:32 Dose: 40 mg Benztropine Mesylate (Benztropine Mesylate 0.5 Mg Tablet) 0.5 mg PO DAILY [facility] Last Admin: 04/07/25 08:34 Dose: 0.5 mg Benztropine Mesylate (Benztropine Mesylate 1 Mg Tablet) 1 mg PO BEDTIME [facility] Last Admin: 04/06/25 20:50 Dose: 1 mg Clonazepam (Clonazepam Odt 0.5 Mg Tab.Rapdis) 0.5 mg PO BID PRN PRN Reason: severe anxiety/sleep Last Admin: 03/31/25 20:37 Dose: 0.5 mg Fluphenazine HCl (Fluphenazine Hcl 2.5 Mg/Ml 10 Ml Vial) 2.5 mg IM BID PRN PRN Reason: give if refuses oral per HCP Last Admin: 03/05/25 09:42 Dose: 2.5 mg Fluphenazine HCl (Fluphenazine Hcl 2.5 Mg Tablet) 5 mg PO TID [facility] Last Admin: 04/07/25 14:41 Dose: 5 mg Fluticasone/Vilanterol (Fluticasone/Vilanterol 200/25 Blst.W.Dev) 1 puff INHALE RDAILY [facility] Last Admin: 04/07/25 08:31 Dose: 1 puff Guaifenesin (Guaifenesin 200 Mg/10 Ml 10 Ml Liquid) 10 ml PO Q6H PRN PRN Reason: Cough Hydrochlorothiazide (Hydrochlorothiazide 25 Mg Tablet) 25 mg PO DAILY [facility] Last Admin: 04/07/25 08:33 Dose: 25 mg Levetiracetam (Levetiracetam 250 Mg Tablet) 250 mg PO BID [facility] Last Admin: 04/07/25 08:32 Dose: 250 mg Magnesium Hydroxide (Milk Of Magnesia 30 Ml Oral.Susp) 30 ml PO DAILY PRN PRN Reason: Constipation Methimazole (Methimazole 5 Mg Tablet) 5 mg PO DAILY [facility] Last Admin: 04/07/25 08:34 Dose: 5 mg Naloxone HCl (Naloxone Hcl 0.4 Mg/Ml Vial) 0.04 mg IVPUSH Q5M PRN PRN Reason: Excessive sedation or RR < 8 Nifedipine (Nifedipine Er 30 Mg Tab.Er.24) 30 mg PO DAILY [facility]; Protocol Last Admin: 04/07/25 08:33 Dose: 30 mg Olanzapine (Olanzapine 10 Mg Tablet) 10 mg PO Q6H PRN PRN Reason: severe agitation Last Admin: 04/07/25 14:42 Dose: 10 mg Prednisone (Prednisone 20 Mg Tablet) 40 mg PO DAILY [facility] Last Admin: 04/07/25 08:33 Dose: 40 mg Tiotropium [place] (Tiotropium [place] 2.5 Mcg 1 Puff/2.5 Mcg Mist.Inhal) 1 puff INHALE RDAILY [facility] Last Admin: 04/07/25 08:31 Dose: 1 puff Trazodone HCl (Trazodone Hcl 50 Mg Tablet) 50 mg PO BEDTIME MRX1 PRN PRN Reason: Insomnia Last Admin: 04/04/25 23:21 Dose: 50 mg Allergies Allergies Allergy/AdvReac Type Severity Reaction Status Date / Time latex Allergy Unknown Verified 03/09/25 11:50 peanut Allergy Unknown Verified 03/09/25 11:50 Penicillins Allergy Unknown Verified 03/09/25 11:50 Assessment & Plan Assessment & Plan (1) Psychosis: Status: Acute Code(s): F29 - Unspecified psychosis not due to a substance or known physiological condition (2) Pulmonary nodules: Status: Acute Code(s): R91.8 - Other nonspecific abnormal finding of lung field Assessment and Plan: Bloodwork plan for bronchosopcy, EBUS to sample mediastinal and hilar lymphnodes and transbronchial biopsies to assess for malinancy and sarcoidsosis The bronchoscopy is urgent in order to facilitate her medical treatment (3) Rheumatoid arthritis involving hand with positive rheumatoid factor: Status: Acute Code(s): M05.749 - Rheumatoid arthritis with rheumatoid factor of unspecified hand without organ or systems involvement Plan Mrs. Sharif is a 69 year-old woman who presents with a 3 month hx of new onset of psychosis (AH) and combination of paranoid delusions and cap gras delusions. No prior psychiatric hx. She does have of cocaine use but apparently had not used in some years. Daughter suspects she may have relapsed but no ongoing use. Pt presents with more complex theme of delusions. No additional medical work up available including head CT. CBC and cmp unremarkable. 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 It may be related to dementia process but complexity of delusions and psychosis not the common presentation for dementia that have psychosis early on such as in vascular dementia or LBD. Pt presents as gravely disable to able to care for self due to symptoms of psychosis and delusions. 02/03 increase night time risperidone 2mg po qhs increase cogetin at bedtime to 1mg po qhs. lower daily dose to 0.5mg po daily. continue cogentin 0.5mg po daily. clonazepam as prn olanzapine as prn for agitation 02/04 continue tx. 02/05 continue tx. 02/06 continue current dose of risperidone. NOTE THAT pt can't take doses higher than 3 mg/day of risperidone as higher doses had severe EPS. can use olanzapine as well per court order. 02/07/25: Patient has been agitated yelling loudly exist seeking, delusional thinking her daughter/son outside at the door to pick her up. PRNs given in the morning with mild effect. Patient became agitated, aggressive\, assaultive to 1 of the staff on the floor, yelling and hitting her face so grabbing her neck. Physical was started at 16:31 to 1634. Patient was given IM medication of Zyprexa 10 and Valium 10 with good effect. Tomorrow plan: Patient will be benefit from Valium 10 mg twice a day and Zyprexa 5 mg 3 times a day is added into her scheduled medication as current plan with risperidone is not effective. Patient also having a backup for risperidone if she refused. 02/08/25: Slept most of the morning and last night. In better behavior control. No aggressive behavior. She is quiet, self dialogue, and medication compliant. Due to receive restrain medication yesterday. I did not make any medication change. But the Valium and additional Zyprexa appears to be helpful. 02/09 will try to change keppra to depakote for seizures as keppra may exacerbate psychosis. increase risperidone 1mg po daily and 2mg po qhs. may need to add second antipsychotic. 02/10 continues to present as paranoid with AH. at times declines oral medications, requiring IM back per court order. 02/11 continue tx. 02/12 continue tx. 02/13 continue tx. 02/14: no changes today. Monitor for agitation around confusion about hospitalization 02/15: no changes today, self dialogue more overt/extensive today 02/16 add olanzapine 5mg po qhs. continue risperidone. minimal improvement if any. 02/17 continue tx. 02/18 seems more somnolent with bedtime olanzapine, will continue to monitor. 02/19 cbc showed thrombocytopenia, which is new and suspect related to depakote 02/20 pt appears more sedated since addition of olanzapine at bedtime. She continues to self dialogue. minimal improvement. 02/21: Continue current management and treatment plan. 02/22: continue current management and treatment plan. 02/23 continue tx. may need to affirm HCP try different antipsychotic. 02/24 continue tx. results of LENORE 1:360, pattern homogenous A. 02/25 will try rexulti, lower risperidone. pending coordination of medical care to see if underlying autoimmune condition has anything to do with current presentation. 02/26 discussed with hospital ip technology transactions attorney to dismiss sect 8, HCP invoked and can consent to other treatment. daughter Maricruz give permission to try different antipsychotic. 02/27 decrease risperidone to 1mg po daily, start prolixin 2.5mg po qhs, then increase to BID. continue olanzapine prn for agitation. olanzapine as well per court order. 03/03 pt seen by neurology, added HIV/RPR/LYME, can't have MRI due to cochlear implant. 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 Last Neurology appointment 01/2024. Missed appointment with rheumatology 05/2024, last seen in 02/26/2024. - Pt can't have MRI due to cochlear implant. Had head CT. - continue prolixin 2.5mg po daily, 5mg po qhs. will d/c risperidone, increase prolixin 5mg po BID, back up IM. 03/05 continue tx. 03/06 This senior mortgage underwriter spoke with pt's unemployment benefits claims taker, Dr. Al obtained collateral information. Will coordinate with neurology and rheumatology once LP results are available. r/o reoccurance of pachymeningitis, lupus or other autoimmune cause for psychosis. 03/07: Continue current regimen and plans. Discontinued one-to-one and put in place 5 minute checks 03/08: Continue current plans and regimen 03/09 continue tx. 03/10: continue current mgmt. continues disorganized and psychotic. see neuro note from today. continue with neuro w/u. 03/11: given zyprexa 5 and valium [address] and head CTA. head CTA WNL, chest CT showed numerous pulmonary nodules up to 10 mm in size. no change in presentation. due to persistent requests for discharge, 3-day notice submitted on her behalf. will work toward HCP affirmation by the court. 03/12: per pulm consult, chest CT more c/w rheumatological process than CA, recommended empiric steroid course. awaiting input from neuro. consider Bx of nodules otherwise. continue current mgmt for now. 03/13: variably calm and agitated. planning for bronchoscopy with pulmonary nodule Bx on sunday. continue current mgmt. case discussed with HCP Maricruz (daughter), who is in agreement with plan. 03/14: CSF with notable findings. will f/u with neuro on sunday. stable presentation for now, remains quite psychotic. continue current mgmt. bronchoscopy sunday. 03/15: no change from yesterday in presentation or plan. 03/16: stable presentation. continues confused, wanting to go home. HCP affirmation tomorrow. continue current mgmt. 03/17: stable presdentation. bronchoscopy pending. continue current mgmt. 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 awaiting bronchoscopy. remains psychotic. continue current mgmt for now. 03/20: no change in presentation. still awaiting go-ahead for brochoscopy. continue current mgmt. 03/22: No changes. Noted above. 03/23: awaiting insurance approval for bronchoscopy. stable presentation. 03/24: as for yesterday. 03/25: loudly RIS in milieu today. bronchoscopy scheduled for sunday at 1130. NPO past MN night. stable presentation. continue current mgmt. 03/26 pt presents as more disorganized and inattentive than usual showing more signs of delirious behavior. bronchoscopy was canceled,due to shortage of needles to complete biopsy. will order cbc, cmp, ammonia levels given increase disorganized behavior and worsening attention pointing at a more delirious presentation. * Review of results from LP showing negative results for meningitis panel/paraneoplastic panel (including most common antibody found in SLC which is EARL 1 which was negative), elevated protein in CSF 131 without leukocytosis, also elevated CSF/serum IgG index. elevated anti-ds dna titer 1:80. Such results may point more to a rheumatological condition than infectious condition or malignancy. Mrs. Sharif's OP unemployment benefits claims taker, Dr. Al recommends trial of prednisone 40mg po daily at least for 2 weeks. 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 03/31 increase prolixin to 5mg po BID. continue all other medications including prednisone 40mg po daily. 04/01 discussed with her OP unemployment benefits claims taker, Dr. Al possibility of transferring to [facility] for further tx of autoimmune condition, suspected also having lupus. continue prednisone. Spoke with daughter who is HCP, daughter concern about pt going to [facility] due to being dismissed several times when pt was first brought psychotic. 04/02 continue tx 04/03 increase prolixin to 5mg po TID. monitor EPS. 04/06 continue tx. 04/07- pending response from [facility] to see if they will take her for further evaluation of autoimmune condition with multidisciplinary team to continue see if psychosis related to autoimmune or primarily psychosis. Some improvement in attention, less guarded. continues to have auditory hallucinations. May consider switch to clozapine given that she has tried 3 antipsychotics with limited efficacy. Reason for continued inpatient stay Substantial Risk for: inability to function Time Spent With Patient Time: Total time managing care of this patient today ____ minutes.
[2025-04-07 20:00] VITALS: BP 132/75; RESP 16; TEMP 36.1; O2SAT 99
[2025-04-08 08:00] VITALS: BP 149/64; PULSE 54; RESP 16; TEMP 36.4; O2SAT 98
[2025-04-08] MEDS: Tiotropium Bromide 2.5 mcg 1 PUFF/2.5 MCG MIST.INHAL INHALE (08:30)
[2025-04-08] MEDS: Fluticasone/Vilanterol 200/25 BLST.W.DEV 1 PUFF INHALE (08:30)
[2025-04-08] MEDS: NIFEdipine ER 30 MG TAB.ER.24 PO (08:31)
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
[2025-04-08 20:00] VITALS: BP 148/66; PULSE 63; RESP 16; TEMP 36.6; O2SAT 97
[2025-04-09 08:00] VITALS: BP 133/60; PULSE 65; RESP 16; TEMP 36.3; O2SAT 97
[2025-04-09 09:04] VITALS: BP 133/60
[2025-04-09 09:05] VITALS: BP 133/60
[2025-04-09] MEDS: NIFEdipine ER 30 MG TAB.ER.24 PO (09:05)
[2025-04-09] MEDS: Tiotropium Bromide 2.5 mcg 1 PUFF/2.5 MCG MIST.INHAL INHALE (09:07)
[2025-04-09] MEDS: Fluticasone/Vilanterol 200/25 BLST.W.DEV 1 PUFF INHALE (09:07)
[2025-04-09 12:42] LABS: Neut%MD 78.9 %; WBCANC 11.6 X10*3/uL
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
[2025-04-09 20:00] VITALS: BP 123/61; PULSE 72; RESP 18; TEMP 36.1; O2SAT 93
[2025-04-10 08:00] VITALS: BP 139/65; PULSE 62; RESP 16; TEMP 36.3; O2SAT 98
[2025-04-10] MEDS: Fluticasone/Vilanterol 200/25 BLST.W.DEV 1 PUFF INHALE (08:38)
[2025-04-10] MEDS: Tiotropium Bromide 2.5 mcg 1 PUFF/2.5 MCG MIST.INHAL INHALE (08:38)
[2025-04-10 08:39] VITALS: BP 139/74
[2025-04-10 08:41] VITALS: BP 139/65
[2025-04-10] MEDS: NIFEdipine ER 30 MG TAB.ER.24 PO (08:41)
--- NOTE | 2025-04-10 08:44 | P.PNPL_ITS ---
Subjective Subjective Date of Service: 04/10/25 Interval history: The patient was seen on exam. I did review again her CT scan of the chest that she had back in February. The concern was an inflammatory condition such as sarcoidosis versus a malignant process resulting in some degree of encephalopathy. The plan was to perform bronchoscopy but the equipment fortunately was not back order and still is. Therefore the patient was started empirically on prednisone 40 mg daily back on March 27. Her breathing feels okay and denies any chest discomfort. She is jem hard of hearing. Objective Data Labs 03/29/25 08:55 03/29/25 08:55 Labs: Laboratory Results - last 24 hr 04/09/25 04/09/25 12:25 12:26 Absolute Neuts (auto) 9.2 H Hold Purple Top SEE NOTE Imaging CT scan - chest: My impression: Microbiology Microbiology Results: Microbiology 03/09/25 12:40 Cerebrospinal Fluid Gram Stain - Final 03/09/25 12:40 Cerebrospinal Fluid Fluid Description - Final 03/09/25 12:40 Cerebrospinal Fluid CSF Culture - Final No growth after 3 days. Review of Systems Review of Systems nothing of note Yes all other systems are reviewed and are negative and Unobtainable due to mental condition Constitutional: Reports as per HPI Eyes: Reports as per HPI Reports as per HPI Cardiovascular: Reports as per HPI Respiratory: Reports as per HPI Gastrointestinal: Reports as per HPI Musculoskeletal: Reports as per HPI Skin/Breast: Reports as per HPI Reports as per HPI and Reports confusion Psychiatric: Reports as per HPI and Reports confusion Endocrine: Reports as per HPI Hematologic/Lymphatic: Reports as per HPI Allergic/Immunologic: Reports as per HPI Physical Exam 2 Vital Signs: Vital Signs: Last Vital Signs Temp 97 F 04/09/25 20:00 Pulse 72 04/09/25 20:00 Resp 18 04/09/25 20:00 BP 139/65 04/10/25 08:41 Pulse Ox 93 04/09/25 20:00 O2 Del Method Room Air 04/09/25 20:00 BMI result Body Mass Index 31.2 Const: General: comfortable and confusion Orientation/consciousness: c onfusion HEENT: Head: Yes normocephalic Neck: Neck: Yes supple Chest: Chest palpation & inspection: normal inspection of the chest Resp: Effort & Inspection: normal respiratory effort Auscultation: clear to auscultation bilaterally Cardio: Heart sounds: S1 normal heart sound present and S2 normal heart sound present GI: Palpation (GI): Soft to palpation Skin: General skin exam: no rashes or lesions noted Neuro: General: confusion Procedures Date of Service Date of Service: 04/10/25 Assessment and Plan Assessment and plan (1) Pulmonary nodules: Status: Acute (2) COPD (chronic obstructive pulmonary disease): Status: Acute Plan The patient has abnormal pulmonary nodules on her CT scan. They are ill-defined an irregular primarily in the right upper lobe. She also has other emphysematous and cystic areas. Difficult to biopsy both with CT-guided and also bronchoscopic. Based on the lack of the equipment available the patient is placed on empiric antibiotics to treat the possibility of an inflammatory interstitial process such as sarcoidosis. Connective tissue diseases are the differential with a positive double-stranded DNA antibody. Although the rest of the blood work was negative for any other inflammatory process. She has been on empiric prednisone now for 2 weeks. Will plan to repeat imaging with a repeat CT scan and if the pulmonary nodules have not changed or have worsen then indeed a semi-invasive diagnostic intervention will be warranted. The issue is that the areas of abnormality are not easily accessed via CT-guided biopsy nor bronchoscopy or least without navigational bronchoscopy. The more definitive diagnosis will be with a surgical biopsy although we do not have thoracic surgery present to be able to evaluate her for that. Recommendations: Continue with the Breo Continue with the prednisone 40 mg daily until her repeat CAT scan Repeat CT scan of the chest 3-4 weeks after starting prednisone to see if the corticosteroid therapy is helping. If it is helping and the nodules are decreasing in size, then the patient should at least complete a 6 month course of corticosteroid at the lowest most effective dose. (will discuss this further if need be) If the nodules are the same or worse then we will see the available resources to provide a semi-invasive or invasive diagnostic intervention. Time Spent With Patient Time: Total time managing care of this patient today ____ minutes.
--- NOTE | 2025-04-10 16:06 | MHC.AUDCO ---
Received battery rack for disposable 675 CI rated batteries, cover, and medium tone hooks. Communicated with Monica William OT on the unit who was able to tow picker equipment today. After inserting the batteries provided by the family, the processor was blinking orange. This typically means there is a power issue. Monica had troubleshot and replaced the batteries and knew to let the zinc air batteries breathe before inserting them into the device. Still blinking. Monica confirmed that the batteries provided by the family were not rated for Cochlear Implants (needs to say 675 CI). She has identified some on line and will procure for the patient. I did speak with Virgil Simon of [facility] Cochlear Implant program. She said upon a recent inpatient stay at [facility], the patient had arrived without her processor. They were able to get a N7 processor for her to use while they requested a replacement for an N8 that was lost. They have been calling for a few months to set up an appointment and have not been able to get in touch with anyone. I explained she has been here and we will let the family know that they have the new processor ready for her. I did confirm that the most recent map in the N7 is current and appropriate.
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
[2025-04-10 20:00] VITALS: BP 145/70; PULSE 80; RESP 16; TEMP 36.8; O2SAT 98
[2025-04-11 08:50] VITALS: BP 118/63; PULSE 62; RESP 18; TEMP 35.9; O2SAT 98
[2025-04-11] MEDS: Tiotropium Bromide 2.5 mcg 1 PUFF/2.5 MCG MIST.INHAL INHALE (09:25)
[2025-04-11] MEDS: NIFEdipine ER 30 MG TAB.ER.24 PO (09:26)
[2025-04-11] MEDS: Fluticasone/Vilanterol 200/25 BLST.W.DEV 1 PUFF INHALE (09:28)
[2025-04-11 20:00] VITALS: RESP 16
--- NOTE | 2025-04-11 23:48 | P.PNPSI_ITS ---
Subjective Subjective Date of Service: 05/06/25 Reason For Visit: Abnormal CT chest Subjective Notes: Section 7 and Section 8 Interim History: keeping to self; On approach she did not acknowledge adjusto writer operator, then adjusto writer operator got her attention and she was pleasant. Was able to communicate with adjusto writer operator writing on paper. She stated that she was fine. She then started talking about how her daughter was going to pick her up this afternoon and she needed to get ready to leave. Staff let adjusto writer operator know that patient has been redirectable in these situations where she becomes irrationally focused on leaving the hospital. Medication Compliance: Yes Attending Groups: Intermittent Review of Systems Acute medical concerns: No Medical Review of Systems: unchanged Mental Status Exam Mental Status Exam Narrative: Mental Status Exam Narrative: Appearance: own attire, adequate grooming and hygiene Behavior: calm, cooperative Orientation: alert, confused Memory: impaired Psychomotor Function: no agitation or slowing; no abnormal gestures or movements Speech: loud Mood: ok Affect: calm, non-labile Thought Process: questionably organized Thought Content: delusional regarding discharge plans Hallucinations: per RN, active engagement in self dialogue Insight: impairment Judgment: impairment Impulsivity: none noted Diagnostics Vital Signs (24Hr): Vital Signs - 24 hr 04/11/25 08:50 04/11/25 20:00 Temperature 96.6 F L Pulse Rate 62 Respiratory Rate 18 16 Blood Pressure 118/63 Pulse Oximetry 98 Oxygen Delivery Method Room Air BMI result Body Mass Index 31.2 Labs 03/29/25 08:55 03/29/25 08:55 Imaging Radiology Impressions: ITS Impressions Head CT 03/05/25 15:51 IMPRESSION: 1. No acute intracranial abnormality. 2. Right-sided cochlear nerve implant with associated streak artifact. 3. Right-sided canal wall up mastoidectomy. Electronically signed by: Levi Greer MD 03/05/2025 04:25 PM EDT RP Lumbar Puncture Fluoroscopy 03/09/25 11:50 IMPRESSION: Successful fluoroscopy-guided lumbar puncture performed without immediate complications Electronically signed by: Thompson Andujar MD 03/09/2025 04:06 PM EDT RP Chest CT 03/11/25 11:52 IMPRESSION: 1. Multiple bilateral pulmonary nodules measuring up to 10 mm in size. Further evaluation should be based on Fleischner Society guidelines below. 2. Cardiomegaly. Findings consistent with pulmonary arterial hypertension. 3. No evidence of mediastinal or hilar lymphadenopathy. Fleischner Criteria for pulmonary nodule follow-up SOLID NODULES: Low risk patient: <6mm: no follow-up 6-8mm: 6 month follow-up CT >8mm: PET/Biopsy/ 3 month follow-up CT High risk patient: <6mm: 12 month follow-up CT 6-8mm: 6 month follow-up CT >8mm: PET/Biopsy/ 3 month follow-up CT SUB-SOLID/GROUNDGLASS NODULES: All patients: > or = 6mm: 6 month follow-up CT *Please note that in patients in the following categories, the Fleischner criteria do not apply: Immunocompromised, lung cancer screening population, age below 35, and patients with known malignancy Electronically signed by: Best Clemons MD 03/11/2025 01:45 PM EDT RP Head CTA 03/11/25 11:52 IMPRESSION: Head CT: No acute intracranial abnormality. CT angiogram of the head: No vascular occlusions. Electronically signed by: Gypsy Salamanca MD 03/11/2025 03:02 PM EDT RP Medications Medications Current Medications Acetaminophen (Acetaminophen 325 Mg Tablet) 650 mg PO Q6H PRN PRN Reason: Headache/Pain, Scale 1-10 Last Admin: 04/09/25 09:14 Dose: 650 mg Al Hydroxide/Mg Hydroxide (Magnesium Hydrox/Alum Hydrox 30 Ml Oral.Susp) 30 ml PO Q6H PRN PRN Reason: Heartburn/Nausea Albuterol Sulfate (Albuterol Sulfate 90 Mcg 8 Gm Inhaler) 2 puff INHALE Q4H PRN PRN Reason: Shortness Of Breath Or Wheezing Atorvastatin Calcium (Atorvastatin Calcium 40 Mg Tablet) 40 mg PO DAILY COUNT INCLUDES THE [facility] Last Admin: 04/11/25 09:27 Dose: 40 mg Benztropine Mesylate (Benztropine Mesylate 0.5 Mg Tablet) 0.5 mg PO DAILY ALLY Last Admin: 04/11/25 09:27 Dose: 0.5 mg Benztropine Mesylate (Benztropine Mesylate 1 Mg Tablet) 1 mg PO BEDTIME COUNT INCLUDES THE [facility] Last Admin: 04/11/25 19:59 Dose: 1 mg Clonazepam (Clonazepam Odt 0.5 Mg Tab.Rapdis) 0.5 mg PO BID PRN PRN Reason: severe anxiety/sleep Last Admin: 03/31/25 20:37 Dose: 0.5 mg Clozapine (Clozapine 25 Mg Tablet) 75 mg PO BEDTIME COUNT INCLUDES THE [facility] Last Admin: 04/11/25 19:59 Dose: 75 mg Fluphenazine HCl (Fluphenazine Hcl 2.5 Mg/Ml 10 Ml Vial) 2.5 mg IM BID PRN PRN Reason: give if refuses oral per HCP Last Admin: 03/05/25 09:42 Dose: 2.5 mg Fluphenazine HCl (Fluphenazine Hcl 5 Mg Tablet) 5 mg PO BID COUNT INCLUDES THE [facility] Last Admin: 04/11/25 19:59 Dose: 5 mg Fluticasone/Vilanterol (Fluticasone/Vilanterol 200/25 Blst.W.Dev) 1 puff INHALE RDAILY COUNT INCLUDES THE [facility] Last Admin: 04/11/25 09:28 Dose: 1 puff Guaifenesin (Guaifenesin 200 Mg/10 Ml 10 Ml Liquid) 10 ml PO Q6H PRN PRN Reason: Cough Hydrochlorothiazide (Hydrochlorothiazide 25 Mg Tablet) 25 mg PO DAILY COUNT INCLUDES THE [facility] Last Admin: 04/11/25 09:26 Dose: 25 mg Levetiracetam (Levetiracetam 250 Mg Tablet) 250 mg PO BID COUNT INCLUDES THE [facility] Last Admin: 04/11/25 19:59 Dose: 250 mg Magnesium Hydroxide (Milk Of Magnesia 30 Ml Oral.Susp) 30 ml PO DAILY PRN PRN Reason: Constipation Methimazole (Methimazole 5 Mg Tablet) 5 mg PO DAILY COUNT INCLUDES THE [facility] Last Admin: 04/11/25 09:26 Dose: 5 mg Naloxone HCl (Naloxone Hcl 0.4 Mg/Ml Vial) 0.04 mg IVPUSH Q5M PRN PRN Reason: Excessive sedation or RR < 8 Nifedipine (Nifedipine Er 30 Mg Tab.Er.24) 30 mg PO DAILY COUNT INCLUDES THE [facility]; Protocol Last Admin: 04/11/25 09:26 Dose: 30 mg Olanzapine (Olanzapine 10 Mg Tablet) 10 mg PO Q6H PRN PRN Reason: severe agitation Last Admin: 04/07/25 14:42 Dose: 10 mg Prednisone (Prednisone 20 Mg Tablet) 40 mg PO DAILY COUNT INCLUDES THE [facility] Last Admin: 04/11/25 09:25 Dose: 40 mg Tiotropium Callaway (Tiotropium Callaway 2.5 Mcg 1 Puff/2.5 Mcg Mist.Inhal) 1 puff INHALE RDAILY ALLY Last Admin: 04/11/25 09:25 Dose: 1 puff Trazodone HCl (Trazodone Hcl 50 Mg Tablet) 50 mg PO BEDTIME MRX1 PRN PRN Reason: Insomnia Last Admin: 04/04/25 23:21 Dose: 50 mg Allergies Allergies Allergy/AdvReac Type Severity Reaction Status Date / Time latex Allergy Unknown Verified 03/09/25 11:50 peanut Allergy Unknown Verified 03/09/25 11:50 Penicillins Allergy Unknown Verified 03/09/25 11:50 Assessment & Plan Assessment & Plan (1) Psychosis: Status: Acute Code(s): F29 - Unspecified psychosis not due to a substance or known physiological condition Assessment and Plan: r/o autoimmune reasons for psychosis including lupus. (2) Pulmonary nodules: Status: Acute Code(s): R91.8 - Other nonspecific abnormal finding of lung field Assessment and Plan: Bloodwork plan for bronchosopcy, EBUS to sample mediastinal and hilar lymphnodes and transbronchial biopsies to assess for malinancy and sarcoidsosis The bronchoscopy is urgent in order to facilitate her medical treatment (3) Rheumatoid arthritis involving hand with positive rheumatoid factor: Status: Acute Code(s): M05.749 - Rheumatoid arthritis with rheumatoid factor of unspecified hand without organ or systems involvement Plan Mrs. Sharif is a 69 year-old woman who presents with a 3 month hx of new onset of psychosis (AH) and combination of paranoid delusions and cap gras delusions. No prior psychiatric hx. She does have of cocaine use but apparently had not used in some years. Daughter suspects she may have relapsed but no ongoing use. Pt presents with more complex theme of delusions. No additional medical work up available including head CT. CBC and cmp unremarkable. 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 It may be related to dementia process but complexity of delusions and psychosis not the common presentation for dementia that have psychosis early on such as in vascular dementia or LBD. Pt presents as gravely disable to able to care for self due to symptoms of psychosis and delusions. 7/8 increase night time risperidone 2mg po qhs increase cogetin at bedtime to 1mg po qhs. lower daily dose to 0.5mg po daily. continue cogentin 0.5mg po daily. clonazepam as prn olanzapine as prn for agitation 02/04 continue tx. 02/05 continue tx. 02/06 continue current dose of risperidone. NOTE THAT pt can't take doses higher than 3 mg/day of risperidone as higher doses had severe EPS. can use olanzapine as well per court order. 02/07/25: Patient has been agitated yelling loudly exist seeking, delusional thinking her daughter/son outside at the door to pick her up. PRNs given in the morning with mild effect. Patient became agitated, aggressive\, assaultive to 1 of the staff on the floor, yelling and hitting her face so grabbing her neck. Physical was started at 16:31 to 1634. Patient was given IM medication of Zyprexa 10 and Valium 10 with good effect. Tomorrow plan: Patient will be benefit from Valium 10 mg twice a day and Zyprexa 5 mg 3 times a day is added into her scheduled medication as current plan with risperidone is not effective. Patient also having a backup for risperidone if she refused. 02/08/25: Slept most of the morning and last night. In better behavior control. No aggressive behavior. She is quiet, self dialogue, and medication compliant. Due to receive restrain medication yesterday. I did not make any medication change. But the Valium and additional Zyprexa appears to be helpful. 02/09 will try to change keppra to depakote for seizures as keppra may exacerbate psychosis. increase risperidone 1mg po daily and 2mg po qhs. may need to add second antipsychotic. 02/10 continues to present as paranoid with AH. at times declines oral medications, requiring IM back per court order. 02/11 continue tx. 02/12 continue tx. 02/13 continue tx. 02/14: no changes today. Monitor for agitation around confusion about hospitalization 02/15: no changes today, self dialogue more overt/extensive today 02/16 add olanzapine 5mg po qhs. continue risperidone. minimal improvement if any. 02/17 continue tx. 02/18 seems more somnolent with bedtime olanzapine, will continue to monitor. 02/19 cbc showed thrombocytopenia, which is new and suspect related to depakote 02/20 pt appears more sedated since addition of olanzapine at bedtime. She continues to self dialogue. minimal improvement. 02/21: Continue current management and treatment plan. 02/22: continue current management and treatment plan. 02/23 continue tx. may need to affirm HCP try different antipsychotic. 02/24 continue tx. results of LENORE 1:360, pattern homogenous A. 02/25 will try rexulti, lower risperidone. pending coordination of medical care to see if underlying autoimmune condition has anything to do with current presentation. 02/26 discussed with hospital family law attorney to dismiss sect 8, HCP invoked and can consent to other treatment. daughter Maricruz give permission to try different antipsychotic. 02/27 decrease risperidone to 1mg po daily, start prolixin 2.5mg po qhs, then increase to BID. continue olanzapine prn for agitation. olanzapine as well per court order. 03/03 pt seen by neurology, added HIV/RPR/LYME, can't have MRI due to cochlear implant. 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 Last Neurology appointment 01/2024. Missed appointment with rheumatology 05/2024, last seen in 02/26/2024. - Pt can't have MRI due to cochlear implant. Had head CT. - continue prolixin 2.5mg po daily, 5mg po qhs. will d/c risperidone, increase prolixin 5mg po BID, back up IM. 03/05 continue tx. 03/06 This adjusto writer operator spoke with pt's sueding machine operator, Dr. Al obtained collateral information. Will coordinate with neurology and rheumatology once LP results are available. r/o reoccurance of pachymeningitis, lupus or other autoimmune cause for psychosis. 03/07: Continue current regimen and plans. Discontinued one-to-one and put in place 5 minute checks 03/08: Continue current plans and regimen 03/09 continue tx. 03/10: continue current mgmt. continues disorganized and psychotic. see neuro note from today. continue with neuro w/u. 03/11: given zyprexa 5 and valium [address] and head CTA. head CTA WNL, chest CT showed numerous pulmonary nodules up to 10 mm in size. no change in presentation. due to persistent requests for discharge, 3-day notice submitted on her behalf. will work toward HCP affirmation by the court. 03/12: per pulm consult, chest CT more c/w rheumatological process than CA, recommended empiric steroid course. awaiting input from neuro. consider Bx of nodules otherwise. continue current mgmt for now. 03/13: variably calm and agitated. planning for bronchoscopy with pulmonary nodule Bx on sunday. continue current mgmt. case discussed with HCP Maricruz (daughter), who is in agreement with plan. 03/14: CSF with notable findings. will f/u with neuro on sunday. stable presentation for now, remains quite psychotic. continue current mgmt. bronchoscopy sunday. 03/15: no change from yesterday in presentation or plan. 03/16: stable presentation. continues confused, wanting to go home. HCP affirmation tomorrow. continue current mgmt. 03/17: stable presdentation. bronchoscopy pending. continue current mgmt. 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 awaiting bronchoscopy. remains psychotic. continue current mgmt for now. 03/20: no change in presentation. still awaiting go-ahead for brochoscopy. continue current mgmt. 03/22: No changes. Noted above. 03/23: awaiting insurance approval for bronchoscopy. stable presentation. 03/24: as for yesterday. 03/25: loudly RIS in milieu today. bronchoscopy scheduled for sunday at 1130. NPO past MN night. stable presentation. continue current mgmt. 03/26 pt presents as more disorganized and inattentive than usual showing more signs of delirious behavior. bronchoscopy was canceled,due to shortage of needles to complete biopsy. will order cbc, cmp, ammonia levels given increase disorganized behavior and worsening attention pointing at a more delirious presentation. * Review of results from LP showing negative results for meningitis panel/paraneoplastic panel (including most common antibody found in SLC which is EARL 1 which was negative), elevated protein in CSF 131 without leukocytosis, also elevated CSF/serum IgG index. elevated anti-ds dna titer 1:80. Such results may point more to a rheumatological condition than infectious condition or malignancy. Mrs. Sharif's OP sueding machine operator, Dr. Al recommends trial of prednisone 40mg po daily at least for 2 weeks. 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 03/31 increase prolixin to 5mg po BID. continue all other medications including prednisone 40mg po daily. 04/01 discussed with her OP sueding machine operator, Dr. Al possibility of transferring to [facility] for further tx of autoimmune condition, suspected also having lupus. continue prednisone. Spoke with daughter who is HCP, daughter concern about pt going to [facility] due to being dismissed several times when pt was first brought psychotic. 04/02 continue tx 04/03 increase prolixin to 5mg po TID. monitor EPS. 04/06 continue tx. 04/07- pending response from [facility] to see if they will take her for further evaluation of autoimmune condition with multidisciplinary team to continue see if psychosis related to autoimmune or primarily psychosis. Some improvement in attention, less guarded. continues to have auditory hallucinations. May consider switch to clozapine given that she has tried 3 antipsychotics with limited efficacy. 04/08 start clozapine 25mg po qhs. continue prolixin 7.5mg po TID. 04/09 increase clozapine to 50mg po qhs. continue prolixin 7.5mg po TID. 04/10 decrease prolixin to 7.5mg po BID. increase clozapine to 75mg po qhs. continue increasing clozapine by 25mg/day. manager shop, recommends repeat CT in 2 weeks, and hold on bronchoscopy. 04/11: no change today, will titrate Clozapine further tomorrow Informed Consent: does not understand Reason for continued inpatient stay Substantial Risk for: inability to function and rapid decompensation Time Spent With Patient Time: Total time managing care of this patient today _15___ minutes.
--- NOTE | 2025-04-12 00:14 | P.PNPSI_ITS ---
Subjective Subjective Date of Service: 04/12/25 Reason For Visit: Abnormal CT chest Subjective Notes: Section 7 and Section 8 Interim History: Huam keeping to self across the day. Uses phone for communication. Effort required to get her attention due to hearing and vision difficulties. She was pleasant. Was able to communicate with job specification writer writing on paper. She again mentioned that she needed to get ready to leave. This time she did not start walking towards the door. We'll go up on Clozapine tonight. Medication Compliance: Yes Side effects from medications: No Attending Groups: No Review of Systems Acute medical concerns: No Medical Review of Systems: unchanged Review of Systems Review of Systems Yes all other systems are reviewed and are negative Mental Status Exam Mental Status Exam Narrative: Appearance: casual attire, adequate grooming and hygiene Behavior: calm, keeping to self, engagement limited by vision and hearing difficulties Orientation: alert, confused Memory: impaired Psychomotor Function: no agitation or slowing; no abnormal gestures or movements Speech: loud Mood: ok Affect: calm, non-labile Thought Process: disorganized Thought Content: delusional regarding discharge plans Hallucinations: per RN, active engagement in self dialogue Insight: impairment Judgment: impairment Impulsivity: none noted Diagnostics Vital Signs (24Hr): Vital Signs - 24 hr 04/11/25 08:50 04/11/25 20:00 Temperature 96.6 F L Pulse Rate 62 Respiratory Rate 18 16 Blood Pressure 118/63 Pulse Oximetry 98 Oxygen Delivery Method Room Air BMI result Body Mass Index 31.2 Labs 03/29/25 08:55 03/29/25 08:55 Imaging Radiology Impressions: ITS Impressions Head CT 03/05/25 15:51 IMPRESSION: 1. No acute intracranial abnormality. 2. Right-sided cochlear nerve implant with associated streak artifact. 3. Right-sided canal wall up mastoidectomy. Electronically signed by: Levi Greer MD 03/05/2025 04:25 PM EDT RP Lumbar Puncture Fluoroscopy 03/09/25 11:50 IMPRESSION: Successful fluoroscopy-guided lumbar puncture performed without immediate complications Electronically signed by: Thompson Andujar MD 03/09/2025 04:06 PM EDT RP Chest CT 03/11/25 11:52 IMPRESSION: 1. Multiple bilateral pulmonary nodules measuring up to 10 mm in size. Further evaluation should be based on Fleischner Society guidelines below. 2. Cardiomegaly. Findings consistent with pulmonary arterial hypertension. 3. No evidence of mediastinal or hilar lymphadenopathy. Fleischner Criteria for pulmonary nodule follow-up SOLID NODULES: Low risk patient: <6mm: no follow-up 6-8mm: 6 month follow-up CT >8mm: PET/Biopsy/ 3 month follow-up CT High risk patient: <6mm: 12 month follow-up CT 6-8mm: 6 month follow-up CT >8mm: PET/Biopsy/ 3 month follow-up CT SUB-SOLID/GROUNDGLASS NODULES: All patients: > or = 6mm: 6 month follow-up CT *Please note that in patients in the following categories, the Fleischner criteria do not apply: Immunocompromised, lung cancer screening population, age below 35, and patients with known malignancy Electronically signed by: Best Clemons MD 03/11/2025 01:45 PM EDT RP Head CTA 03/11/25 11:52 IMPRESSION: Head CT: No acute intracranial abnormality. CT angiogram of the head: No vascular occlusions. Electronically signed by: Gypsy Salamanca MD 03/11/2025 03:02 PM EDT RP Medications Medications Current Medications Acetaminophen (Acetaminophen 325 Mg Tablet) 650 mg PO Q6H PRN PRN Reason: Headache/Pain, Scale 1-10 Last Admin: 04/09/25 09:14 Dose: 650 mg Al Hydroxide/Mg Hydroxide (Magnesium Hydrox/Alum Hydrox 30 Ml Oral.Susp) 30 ml PO Q6H PRN PRN Reason: Heartburn/Nausea Albuterol Sulfate (Albuterol Sulfate 90 Mcg 8 Gm Inhaler) 2 puff INHALE Q4H PRN PRN Reason: Shortness Of Breath Or Wheezing Atorvastatin Calcium (Atorvastatin Calcium 40 Mg Tablet) 40 mg PO DAILY [facility] Last Admin: 04/11/25 09:27 Dose: 40 mg Benztropine Mesylate (Benztropine Mesylate 0.5 Mg Tablet) 0.5 mg PO DAILY [facility] Last Admin: 04/11/25 09:27 Dose: 0.5 mg Benztropine Mesylate (Benztropine Mesylate 1 Mg Tablet) 1 mg PO BEDTIME [facility] Last Admin: 04/11/25 19:59 Dose: 1 mg Clonazepam (Clonazepam Odt 0.5 Mg Tab.Rapdis) 0.5 mg PO BID PRN PRN Reason: severe anxiety/sleep Last Admin: 03/31/25 20:37 Dose: 0.5 mg Clozapine (Clozapine 25 Mg Tablet) 75 mg PO BEDTIME [facility] Last Admin: 04/11/25 19:59 Dose: 75 mg Fluphenazine HCl (Fluphenazine Hcl 2.5 Mg/Ml 10 Ml Vial) 2.5 mg IM BID PRN PRN Reason: give if refuses oral per HCP Last Admin: 03/05/25 09:42 Dose: 2.5 mg Fluphenazine HCl (Fluphenazine Hcl 5 Mg Tablet) 5 mg PO BID [facility] Last Admin: 04/11/25 19:59 Dose: 5 mg Fluticasone/Vilanterol (Fluticasone/Vilanterol 200/25 Blst.W.Dev) 1 puff INHALE RDAILY [facility] Last Admin: 04/11/25 09:28 Dose: 1 puff Guaifenesin (Guaifenesin 200 Mg/10 Ml 10 Ml Liquid) 10 ml PO Q6H PRN PRN Reason: Cough Hydrochlorothiazide (Hydrochlorothiazide 25 Mg Tablet) 25 mg PO DAILY [facility] Last Admin: 04/11/25 09:26 Dose: 25 mg Levetiracetam (Levetiracetam 250 Mg Tablet) 250 mg PO BID [facility] Last Admin: 04/11/25 19:59 Dose: 250 mg Magnesium Hydroxide (Milk Of Magnesia 30 Ml Oral.Susp) 30 ml PO DAILY PRN PRN Reason: Constipation Methimazole (Methimazole 5 Mg Tablet) 5 mg PO DAILY [facility] Last Admin: 04/11/25 09:26 Dose: 5 mg Naloxone HCl (Naloxone Hcl 0.4 Mg/Ml Vial) 0.04 mg IVPUSH Q5M PRN PRN Reason: Excessive sedation or RR < 8 Nifedipine (Nifedipine Er 30 Mg Tab.Er.24) 30 mg PO DAILY [facility]; Protocol Last Admin: 04/11/25 09:26 Dose: 30 mg Olanzapine (Olanzapine 10 Mg Tablet) 10 mg PO Q6H PRN PRN Reason: severe agitation Last Admin: 04/07/25 14:42 Dose: 10 mg Prednisone (Prednisone 20 Mg Tablet) 40 mg PO DAILY [facility] Last Admin: 04/11/25 09:25 Dose: 40 mg Tiotropium Stanford (Tiotropium [place] 2.5 Mcg 1 Puff/2.5 Mcg Mist.Inhal) 1 puff INHALE RDAILJemal [facility] Last Admin: 04/11/25 09:25 Dose: 1 puff Trazodone HCl (Trazodone Hcl 50 Mg Tablet) 50 mg PO BEDTIME MRX1 PRN PRN Reason: Insomnia Last Admin: 04/04/25 23:21 Dose: 50 mg Allergies Allergies Allergy/AdvReac Type Severity Reaction Status Date / Time latex Allergy Unknown Verified 03/09/25 11:50 peanut Allergy Unknown Verified 03/09/25 11:50 Penicillins Allergy Unknown Verified 03/09/25 11:50 Assessment & Plan Assessment & Plan (1) Psychosis: Status: Acute Code(s): F29 - Unspecified psychosis not due to a substance or known physiological condition Assessment and Plan: r/o autoimmune reasons for psychosis including lupus. (2) Pulmonary nodules: Status: Acute Code(s): R91.8 - Other nonspecific abnormal finding of lung field Assessment and Plan: Bloodwork plan for bronchosopcy, EBUS to sample mediastinal and hilar lymphnodes and transbronchial biopsies to assess for malinancy and sarcoidsosis The bronchoscopy is urgent in order to facilitate her medical treatment (3) Rheumatoid arthritis involving hand with positive rheumatoid factor: Status: Acute Code(s): M05.749 - Rheumatoid arthritis with rheumatoid factor of unspecified hand without organ or systems involvement Plan Mrs. Sharif is a 69 year-old woman who presents with a 3 month hx of new onset of psychosis (AH) and combination of paranoid delusions and cap gras delusions. No prior psychiatric hx. She does have of cocaine use but apparently had not used in some years. Daughter suspects she may have relapsed but no ongoing use. Pt presents with more complex theme of delusions. No additional medical work up available including head CT. CBC and cmp unremarkable. 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 It may be related to dementia process but complexity of delusions and psychosis not the common presentation for dementia that have psychosis early on such as in vascular dementia or LBD. Pt presents as gravely disable to able to care for self due to symptoms of psychosis and delusions. 7/8 increase night time risperidone 2mg po qhs increase cogetin at bedtime to 1mg po qhs. lower daily dose to 0.5mg po daily. continue cogentin 0.5mg po daily. clonazepam as prn olanzapine as prn for agitation 02/04 continue tx. 02/05 continue tx. 02/06 continue current dose of risperidone. NOTE THAT pt can't take doses higher than 3 mg/day of risperidone as higher doses had severe EPS. can use olanzapine as well per court order. 02/07/25: Patient has been agitated yelling loudly exist seeking, delusional thinking her daughter/son outside at the door to pick her up. PRNs given in the morning with mild effect. Patient became agitated, aggressive\, assaultive to 1 of the staff on the floor, yelling and hitting her face so grabbing her neck. Physical was started at 16:31 to 1634. Patient was given IM medication of Zyprexa 10 and Valium 10 with good effect. Tomorrow plan: Patient will be benefit from Valium 10 mg twice a day and Zyprexa 5 mg 3 times a day is added into her scheduled medication as current plan with risperidone is not effective. Patient also having a backup for risperidone if she refused. 02/08/25: Slept most of the morning and last night. In better behavior control. No aggressive behavior. She is quiet, self dialogue, and medication compliant. Due to receive restrain medication yesterday. I did not make any medication change. But the Valium and additional Zyprexa appears to be helpful. 02/09 will try to change keppra to depakote for seizures as keppra may exacerbate psychosis. increase risperidone 1mg po daily and 2mg po qhs. may need to add second antipsychotic. 02/10 continues to present as paranoid with AH. at times declines oral medications, requiring IM back per court order. 02/11 continue tx. 02/12 continue tx. 02/13 continue tx. 02/14: no changes today. Monitor for agitation around confusion about hospitalization 02/15: no changes today, self dialogue more overt/extensive today 02/16 add olanzapine 5mg po qhs. continue risperidone. minimal improvement if any. 02/17 continue tx. 02/18 seems more somnolent with bedtime olanzapine, will continue to monitor. 02/19 cbc showed thrombocytopenia, which is new and suspect related to depakote 02/20 pt appears more sedated since addition of olanzapine at bedtime. She continues to self dialogue. minimal improvement. 02/21: Continue current management and treatment plan. 02/22: continue current management and treatment plan. 02/23 continue tx. may need to affirm HCP try different antipsychotic. 02/24 continue tx. results of LENORE 1:360, pattern homogenous A. 02/25 will try rexulti, lower risperidone. pending coordination of medical care to see if underlying autoimmune condition has anything to do with current presentation. 02/26 discussed with hospital claims attorney to dismiss sect 8, HCP invoked and can consent to other treatment. daughter Maricruz give permission to try different antipsychotic. 02/27 decrease risperidone to 1mg po daily, start prolixin 2.5mg po qhs, then increase to BID. continue olanzapine prn for agitation. olanzapine as well per court order. 03/03 pt seen by neurology, added HIV/RPR/LYME, can't have MRI due to cochlear implant. 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 Last Neurology appointment 01/2024. Missed appointment with rheumatology 05/2024, last seen in 02/26/2024. - Pt can't have MRI due to cochlear implant. Had head CT. - continue prolixin 2.5mg po daily, 5mg po qhs. will d/c risperidone, increase prolixin 5mg po BID, back up IM. 03/05 continue tx. 03/06 This job specification writer spoke with pt's biomedical instrument technician, Dr. Al obtained collateral information. Will coordinate with neurology and rheumatology once LP results are available. r/o reoccurance of pachymeningitis, lupus or other autoimmune cause for psychosis. 03/07: Continue current regimen and plans. Discontinued one-to-one and put in place 5 minute checks 03/08: Continue current plans and regimen 03/09 continue tx. 03/10: continue current mgmt. continues disorganized and psychotic. see neuro note from today. continue with neuro w/u. 03/11: given zyprexa 5 and valium [address] and head CTA. head CTA WNL, chest CT showed numerous pulmonary nodules up to 10 mm in size. no change in presentation. due to persistent requests for discharge, 3-day notice submitted on her behalf. will work toward HCP affirmation by the court. 03/12: per pulm consult, chest CT more c/w rheumatological process than CA, recommended empiric steroid course. awaiting input from neuro. consider Bx of nodules otherwise. continue current mgmt for now. 03/13: variably calm and agitated. planning for bronchoscopy with pulmonary nodule Bx on sunday. continue current mgmt. case discussed with HCP Maricruz (daughter), who is in agreement with plan. 03/14: CSF with notable findings. will f/u with neuro on sunday. stable presentation for now, remains quite psychotic. continue current mgmt. bronchoscopy sunday. 03/15: no change from yesterday in presentation or plan. 03/16: stable presentation. continues confused, wanting to go home. HCP affirmation tomorrow. continue current mgmt. 03/17: stable presdentation. bronchoscopy pending. continue current mgmt. 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 awaiting bronchoscopy. remains psychotic. continue current mgmt for now. 03/20: no change in presentation. still awaiting go-ahead for brochoscopy. continue current mgmt. 03/22: No changes. Noted above. 03/23: awaiting insurance approval for bronchoscopy. stable presentation. 03/24: as for yesterday. 03/25: loudly RIS in milieu today. bronchoscopy scheduled for sunday at 1130. NPO past MN night. stable presentation. continue current mgmt. 03/26 pt presents as more disorganized and inattentive than usual showing more signs of delirious behavior. bronchoscopy was canceled,due to shortage of needles to complete biopsy. will order cbc, cmp, ammonia levels given increase disorganized behavior and worsening attention pointing at a more delirious presentation. * Review of results from LP showing negative results for meningitis panel/paraneoplastic panel (including most common antibody found in SLC which is EARL 1 which was negative), elevated protein in CSF 131 without leukocytosis, also elevated CSF/serum IgG index. elevated anti-ds dna titer 1:80. Such results may point more to a rheumatological condition than infectious condition or malignancy. Mrs. Sharif's OP biomedical instrument technician, Dr. Al recommends trial of prednisone 40mg po daily at least for 2 weeks. 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 03/31 increase prolixin to 5mg po BID. continue all other medications including prednisone 40mg po daily. 04/01 discussed with her OP biomedical instrument technician, Dr. Al possibility of transferring to [facility] for further tx of autoimmune condition, suspected also having lupus. continue prednisone. Spoke with daughter who is HCP, daughter concern about pt going to [facility] due to being dismissed several times when pt was first brought psychotic. 04/02 continue tx 04/03 increase prolixin to 5mg po TID. monitor EPS. 04/06 continue tx. 04/07- pending response from [facility] to see if they will take her for further evaluation of autoimmune condition with multidisciplinary team to continue see if psychosis related to autoimmune or primarily psychosis. Some improvement in attention, less guarded. continues to have auditory hallucinations. May consider switch to clozapine given that she has tried 3 antipsychotics with limited efficacy. 04/08 start clozapine 25mg po qhs. continue prolixin 7.5mg po TID. 04/09 increase clozapine to 50mg po qhs. continue prolixin 7.5mg po TID. 04/10 decrease prolixin to 7.5mg po BID. increase clozapine to 75mg po qhs. continue increasing clozapine by 25mg/day. zinc miner, recommends repeat CT in 2 weeks, and hold on bronchoscopy. 04/11: no change today, will titrate Clozapine further tomorrow 04/12: titrate Clozapine to 100 mg QHS Patient educated on: diagnosis and medication risk/benefits Informed Consent: does not understand Reason for continued inpatient stay Substantial Risk for: inability to function and rapid decompensation Time Spent With Patient Time: Total time managing care of this patient today __15__ minutes.
[2025-04-12 08:30] VITALS: BP 122/58; PULSE 64; RESP 18; TEMP 35.8; O2SAT 97
[2025-04-12] MEDS: Tiotropium Bromide 2.5 mcg 1 PUFF/2.5 MCG MIST.INHAL INHALE (09:11)
[2025-04-12 09:14] VITALS: BP 122/58
[2025-04-12] MEDS: Fluticasone/Vilanterol 200/25 BLST.W.DEV 1 PUFF INHALE (09:14)
[2025-04-12 09:15] VITALS: BP 122/58
[2025-04-12] MEDS: NIFEdipine ER 30 MG TAB.ER.24 PO (09:15)
[2025-04-12 19:55] VITALS: BP 132/63; PULSE 73; RESP 15; TEMP 35.6; O2SAT 97
[2025-04-13 08:10] VITALS: BP 137/63; PULSE 63; RESP 16; TEMP 36.4; O2SAT 96
--- NOTE | 2025-04-13 08:39 | P.PNIM_ITS ---
Subjective Subjective Date of Service: 04/13/25 Interval History: Patient seen and examined, discussed with P. Patient is doing well, more organized since being on Prednisone. 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 She denies any pain, SOB, or chest pain. Sitting in Dayroom drinking coffee. Repeat Chest CT in 2 weeks. Her vitals and labs are reviewed and stable. On exam she is awake and alert, cooperative, answers some questions. Exam complicated by hearing loss, Does not appear to be in any acute distress. Review of Systems Denies any shortness of breath, chest pain, dizziness, lightheadedness, abdominal pain or discomfort, nausea vomiting or diarrhea Physical Exam 2 Exam: Exam: CONST: Alert and oriented, in NAD. Well nourished. TELLER HEENT: Normocephalic, atraumatic, MMM, Eyes clear, Neck supple RESP: Lungs clear, RRR even and regular HEART:,RRR, S1, S2. No edema GI:Abdomen Soft NT, ND. + BS times four :Deferred SKIN: Warm dry and intact, no visible lesions or rashes NEURO:CN II-XII Intact bilaterally, Sensation intact. PSYCH: Normal affect. Vital Signs: Vital Signs: Last Vital Signs Temp 96.1 F L 04/12/25 19:55 Pulse 73 04/12/25 19:55 Resp 15 04/12/25 19:55 BP 132/63 04/12/25 19:55 Pulse Ox 97 04/12/25 19:55 O2 Del Method Room Air 04/12/25 08:30 BMI result Body Mass Index 31.2 Objective Data Active Medications Acetaminophen (Acetaminophen 325 Mg Tablet) 650 mg PO Q6H PRN PRN Reason: Headache/Pain, Scale 1-10 Last Admin: 04/12/25 09:15 Dose: 650 mg Documented By: MILTON Al Hydroxide/Mg Hydroxide (Magnesium Hydrox/Alum Hydrox 30 Ml Oral.Susp) 30 ml PO Q6H PRN PRN Reason: Heartburn/Nausea Albuterol Sulfate (Albuterol Sulfate 90 Mcg 8 Gm Inhaler) 2 puff INHALE Q4H PRN PRN Reason: Shortness Of Breath Or Wheezing Atorvastatin Calcium (Atorvastatin Calcium 40 Mg Tablet) 40 mg PO DAILY [facility] Last Admin: 04/12/25 09:14 Dose: 40 mg Documented By: MILTON Benztropine Mesylate (Benztropine Mesylate 0.5 Mg Tablet) 0.5 mg PO DAILY [facility] Last Admin: 04/12/25 09:13 Dose: 0.5 mg Documented By: MILTON Benztropine Mesylate (Benztropine Mesylate 1 Mg Tablet) 1 mg PO BEDTIME [facility] Last Admin: 04/12/25 20:03 Dose: 1 mg Documented By: BRIDGETT Clonazepam (Clonazepam Odt 0.5 Mg Tab.Rapdis) 0.5 mg PO BID PRN PRN Reason: severe anxiety/sleep Last Admin: 03/31/25 20:37 Dose: 0.5 mg Documented By: COCO Clozapine (Clozapine 100 Mg Tablet) 100 mg PO BEDTIME [facility] Last Admin: 04/12/25 20:04 Dose: 100 mg Documented By: BRIDGETT Fluphenazine HCl (Fluphenazine Hcl 2.5 Mg/Ml 10 Ml Vial) 2.5 mg IM BID PRN PRN Reason: give if refuses oral per [facility] Last Admin: 03/05/25 09:42 Dose: 2.5 mg Documented By: BERENICE Fluphenazine HCl (Fluphenazine Hcl 5 Mg Tablet) 5 mg PO BID [facility] Last Admin: 04/12/25 20:03 Dose: 5 mg Documented By: BRIDGETT Fluticasone/Vilanterol (Fluticasone/Vilanterol 200/25 Blst.W.Dev) 1 puff INHALE RDAILY [facility] Last Admin: 04/12/25 09:14 Dose: 1 puff Documented By: MILTON Guaifenesin (Guaifenesin 200 Mg/10 Ml 10 Ml Liquid) 10 ml PO Q6H PRN PRN Reason: Cough Hydrochlorothiazide (Hydrochlorothiazide 25 Mg Tablet) 25 mg PO DAILY [facility] Last Admin: 04/12/25 09:14 Dose: 25 mg Documented By: MILTON Levetiracetam (Levetiracetam 250 Mg Tablet) 250 mg PO BID [facility] Last Admin: 04/12/25 20:03 Dose: 250 mg Documented By: BRIDGETT Magnesium Hydroxide (Milk Of Magnesia 30 Ml Oral.Susp) 30 ml PO DAILY PRN PRN Reason: Constipation Methimazole (Methimazole 5 Mg Tablet) 5 mg PO DAILY [facility] Last Admin: 04/12/25 09:13 Dose: 5 mg Documented By: MILTON Naloxone HCl (Naloxone Hcl 0.4 Mg/Ml Vial) 0.04 mg IVPUSH Q5M PRN PRN Reason: Excessive sedation or RR < 8 Nifedipine (Nifedipine Er 30 Mg Tab.Er.24) 30 mg PO DAILY [facility]; Protocol Last Admin: 04/12/25 09:15 Dose: 30 mg Documented By: MILTON Olanzapine (Olanzapine 10 Mg Tablet) 10 mg PO Q6H PRN PRN Reason: severe agitation Last Admin: 04/07/25 14:42 Dose: 10 mg Documented By: HALIE Prednisone (Prednisone 20 Mg Tablet) 40 mg PO DAILY [facility] Last Admin: 04/12/25 09:12 Dose: 40 mg Documented By: MILTON Tiotropium [place] (Tiotropium [place] 2.5 Mcg 1 Puff/2.5 Mcg Mist.Inhal) 1 puff INHALE RDAILY [facility] Last Admin: 04/12/25 09:11 Dose: 1 puff Documented By: MILTON Trazodone HCl (Trazodone Hcl 50 Mg Tablet) 50 mg PO BEDTIME MRX1 PRN PRN Reason: Insomnia Last Admin: 04/04/25 23:21 Dose: 50 mg Documented By: BRIDGETT Labs 03/29/25 08:55 03/29/25 08:55 Assessment and Plan (1) Meningoencephalitis: Status: Acute (2) HTN (hypertension): Status: Acute Plan 69-year-old female with a past medical history of COPD, rheumatoid arthritis, hypertension, hyperthyroidism, legally blind with hearing loss. She presented to the ED with paranoia, admitted to [facility] for further care. Psychosis/Delusions Treatment per psych team. COPD Continue with Breo/Spiriva P.r.n. albuterol Stable not in acute exacerbation Hypertension/hyperlipidemia Continue Procardia/hydrochlorothiazide and Lipitor Blood pressures have been stable, continue to monitor and adjust as needed Renal function stable. History of hyperthyroidism Continue Tapazole Recent TSH is 1.54 in December. Follow labs Pulmonary nodules Continue with prednisone 40 mgs daily until repeat CT scan Per pulmonology, plan is to CT scan to evaluate pulmonary nodules. If unchanged or worsenes will need semi-invasive diagnostic intervention. Per pulmonology areas of abnormality are not easily accessed via CT-guided biopsy nor bronchoscopy. The more definitive diagnosis will be with a surgical biopsy. She has been afebrile, no leukocytosis Meningoencephalitis of unknown etiology. Improving on steroids- more organized per psychiatry team. Thank you for allowing me to participate in the care of this patient. Will follow as needed, please update medical provider with any changes or concerns. Quality Stroke Does the patient have a stroke diagnosis?: No VTE Prior VTE?: No VTE Risk Level:: Medical - low VTE Device Contraindication: Treatment Not Indicated VTE Drug Contraindication: Treatment Not Indicated
--- NOTE | 2025-04-13 08:45 | P.PNPSI_ITS ---
Subjective Subjective Date of Service: 04/13/25 Reason For Visit: Abnormal CT chest Subjective Notes: Conditional Voluntary Healthcare Proxy: Yes Interim History: Pt slept through the night. She continues to present with ongoing AH of daughter and self dialoguing, this has not decreased with medication. She reports she slept better last night. She seems slightly less paranoid towards staff and being here on the unit but AH are constant. She reports feeling tired in the morning and was wondering if it is the medication causing it. continue prednisone. clozapine was titrated over the weekend, she is currently on 100mg po qhs. Review of Systems Review of Systems Denies any shortness of breath, chest pain, dizziness, lightheadedness, abdominal pain or discomfort, nausea vomiting or diarrhea Yes all other systems are reviewed and are negative, Unobtainable due to mental condition, Unobtainable due to mental status and Other (patient refused to answer ROS questions) Constitutional: Reports as per HPI Eyes: Reports as per HPI Reports as per HPI Cardiovascular: Reports as per HPI Respiratory: Reports as per HPI Gastrointestinal: Reports as per HPI Musculoskeletal: Reports as per HPI Skin/Breast: Reports as per HPI Reports as per HPI and Reports confusion Psychiatric: Reports as per HPI and Reports confusion Endocrine: Reports as per HPI Hematologic/Lymphatic: Reports as per HPI Allergic/Immunologic: Reports as per HPI Mental Status Exam Mental Status Exam Narrative: Appearance: casual attire, adequate grooming and hygiene Behavior: calm, keeping to self, engagement limited by vision and hearing difficulties Orientation: alert, confused Memory: impaired Psychomotor Function: no agitation or slowing; no abnormal gestures or movements Speech: loud Mood: ok Affect: calm, non-labile Thought Process: disorganized Thought Content: delusional regarding discharge plans Hallucinations: AH constantly talking to daughter who is not there. Delusions: paranoid delusions. Insight: impairment Judgment: impairment Impulsivity: none noted Diagnostics Vital Signs (24Hr): Vital Signs - 24 hr 04/12/25 09:14 04/12/25 09:15 04/12/25 19:55 Temperature 96.1 F L Pulse Rate 73 Respiratory Rate 15 Blood Pressure 122/58 L 122/58 L 132/63 Pulse Oximetry 97 BMI result Body Mass Index 31.2 Labs 03/29/25 08:55 03/29/25 08:55 Imaging Radiology Impressions: ITS Impressions Head CT 03/05/25 15:51 IMPRESSION: 1. No acute intracranial abnormality. 2. Right-sided cochlear nerve implant with associated streak artifact. 3. Right-sided canal wall up mastoidectomy. Electronically signed by: Levi Greer MD 03/05/2025 04:25 PM EDT RP Lumbar Puncture Fluoroscopy 03/09/25 11:50 IMPRESSION: Successful fluoroscopy-guided lumbar puncture performed without immediate complications Electronically signed by: Thompson Andujar MD 03/09/2025 04:06 PM EDT RP Chest CT 03/11/25 11:52 IMPRESSION: 1. Multiple bilateral pulmonary nodules measuring up to 10 mm in size. Further evaluation should be based on Fleischner Society guidelines below. 2. Cardiomegaly. Findings consistent with pulmonary arterial hypertension. 3. No evidence of mediastinal or hilar lymphadenopathy. Fleischner Criteria for pulmonary nodule follow-up SOLID NODULES: Low risk patient: <6mm: no follow-up 6-8mm: 6 month follow-up CT >8mm: PET/Biopsy/ 3 month follow-up CT High risk patient: <6mm: 12 month follow-up CT 6-8mm: 6 month follow-up CT >8mm: PET/Biopsy/ 3 month follow-up CT SUB-SOLID/GROUNDGLASS NODULES: All patients: > or = 6mm: 6 month follow-up CT *Please note that in patients in the following categories, the Fleischner criteria do not apply: Immunocompromised, lung cancer screening population, age below 35, and patients with known malignancy Electronically signed by: Best Clemons MD 03/11/2025 01:45 PM EDT RP Head CTA 03/11/25 11:52 IMPRESSION: Head CT: No acute intracranial abnormality. CT angiogram of the head: No vascular occlusions. Electronically signed by: Gypsy Salamanca MD 03/11/2025 03:02 PM EDT RP Medications Medications Current Medications Acetaminophen (Acetaminophen 325 Mg Tablet) 650 mg PO Q6H PRN PRN Reason: Headache/Pain, Scale 1-10 Last Admin: 04/12/25 09:15 Dose: 650 mg Al Hydroxide/Mg Hydroxide (Magnesium Hydrox/Alum Hydrox 30 Ml Oral.Susp) 30 ml PO Q6H PRN PRN Reason: Heartburn/Nausea Albuterol Sulfate (Albuterol Sulfate 90 Mcg 8 Gm Inhaler) 2 puff INHALE Q4H PRN PRN Reason: Shortness Of Breath Or Wheezing Atorvastatin Calcium (Atorvastatin Calcium 40 Mg Tablet) 40 mg PO DAILY [facility] Last Admin: 04/12/25 09:14 Dose: 40 mg Benztropine Mesylate (Benztropine Mesylate 0.5 Mg Tablet) 0.5 mg PO DAILY [facility] Last Admin: 04/12/25 09:13 Dose: 0.5 mg Benztropine Mesylate (Benztropine Mesylate 1 Mg Tablet) 1 mg PO BEDTIME [facility] Last Admin: 04/12/25 20:03 Dose: 1 mg Clonazepam (Clonazepam Odt 0.5 Mg Tab.Rapdis) 0.5 mg PO BID PRN PRN Reason: severe anxiety/sleep Last Admin: 03/31/25 20:37 Dose: 0.5 mg Clozapine (Clozapine 100 Mg Tablet) 100 mg PO BEDTIME [facility] Last Admin: 04/12/25 20:04 Dose: 100 mg Fluphenazine HCl (Fluphenazine Hcl 2.5 Mg/Ml 10 Ml Vial) 2.5 mg IM BID PRN PRN Reason: give if refuses oral per HCP Last Admin: 03/05/25 09:42 Dose: 2.5 mg Fluphenazine HCl (Fluphenazine Hcl 5 Mg Tablet) 5 mg PO BID [facility] Last Admin: 04/12/25 20:03 Dose: 5 mg Fluticasone/Vilanterol (Fluticasone/Vilanterol 200/25 Blst.W.Dev) 1 puff INHALE RDAILY [facility] Last Admin: 04/12/25 09:14 Dose: 1 puff Guaifenesin (Guaifenesin 200 Mg/10 Ml 10 Ml Liquid) 10 ml PO Q6H PRN PRN Reason: Cough Hydrochlorothiazide (Hydrochlorothiazide 25 Mg Tablet) 25 mg PO DAILY [facility] Last Admin: 04/12/25 09:14 Dose: 25 mg Levetiracetam (Levetiracetam 250 Mg Tablet) 250 mg PO BID [facility] Last Admin: 04/12/25 20:03 Dose: 250 mg Magnesium Hydroxide (Milk Of Magnesia 30 Ml Oral.Susp) 30 ml PO DAILY PRN PRN Reason: Constipation Methimazole (Methimazole 5 Mg Tablet) 5 mg PO DAILY [facility] Last Admin: 04/12/25 09:13 Dose: 5 mg Naloxone HCl (Naloxone Hcl 0.4 Mg/Ml Vial) 0.04 mg IVPUSH Q5M PRN PRN Reason: Excessive sedation or RR < 8 Nifedipine (Nifedipine Er 30 Mg Tab.Er.24) 30 mg PO DAILY [facility]; Protocol Last Admin: 04/12/25 09:15 Dose: 30 mg Olanzapine (Olanzapine 10 Mg Tablet) 10 mg PO Q6H PRN PRN Reason: severe agitation Last Admin: 04/07/25 14:42 Dose: 10 mg Prednisone (Prednisone 20 Mg Tablet) 40 mg PO DAILY [facility] Last Admin: 04/12/25 09:12 Dose: 40 mg Tiotropium [place] (Tiotropium [place] 2.5 Mcg 1 Puff/2.5 Mcg Mist.Inhal) 1 puff INHALE RDAILY [facility] Last Admin: 04/12/25 09:11 Dose: 1 puff Trazodone HCl (Trazodone Hcl 50 Mg Tablet) 50 mg PO BEDTIME MRX1 PRN PRN Reason: Insomnia Last Admin: 04/04/25 23:21 Dose: 50 mg Allergies Allergies Allergy/AdvReac Type Severity Reaction Status Date / Time latex Allergy Unknown Verified 03/09/25 11:50 peanut Allergy Unknown Verified 03/09/25 11:50 Penicillins Allergy Unknown Verified 03/09/25 11:50 Assessment & Plan Assessment & Plan (1) Psychosis: Status: Acute Code(s): F29 - Unspecified psychosis not due to a substance or known physiological condition Assessment and Plan: r/o autoimmune reasons for psychosis including lupus. (2) Pulmonary nodules: Status: Acute Code(s): R91.8 - Other nonspecific abnormal finding of lung field Assessment and Plan: Bloodwork plan for bronchosopcy, EBUS to sample mediastinal and hilar lymphnodes and transbronchial biopsies to assess for malinancy and sarcoidsosis The bronchoscopy is urgent in order to facilitate her medical treatment (3) Rheumatoid arthritis involving hand with positive rheumatoid factor: Status: Acute Code(s): M05.749 - Rheumatoid arthritis with rheumatoid factor of unspecified hand without organ or systems involvement Plan Mrs. Sharif is a 69 year-old woman who presents with a 3 month hx of new onset of psychosis (AH) and combination of paranoid delusions and cap gras delusions. No prior psychiatric hx. She does have of cocaine use but apparently had not used in some years. Daughter suspects she may have relapsed but no ongoing use. Pt presents with more complex theme of delusions. No additional medical work up available including head CT. CBC and cmp unremarkable. 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 It may be related to dementia process but complexity of delusions and psychosis not the common presentation for dementia that have psychosis early on such as in vascular dementia or LBD. Pt presents as gravely disable to able to care for self due to symptoms of psychosis and delusions. 02/03 increase night time risperidone 2mg po qhs increase cogetin at bedtime to 1mg po qhs. lower daily dose to 0.5mg po daily. continue cogentin 0.5mg po daily. clonazepam as prn olanzapine as prn for agitation 02/04 continue tx. 02/05 continue tx. 02/06 continue current dose of risperidone. NOTE THAT pt can't take doses higher than 3 mg/day of risperidone as higher doses had severe EPS. can use olanzapine as well per court order. 02/07/25: Patient has been agitated yelling loudly exist seeking, delusional thinking her daughter/son outside at the door to pick her up. PRNs given in the morning with mild effect. Patient became agitated, aggressive\, assaultive to 1 of the staff on the floor, yelling and hitting her face so grabbing her neck. Physical was started at 16:31 to 1634. Patient was given IM medication of Zyprexa 10 and Valium 10 with good effect. Tomorrow plan: Patient will be benefit from Valium 10 mg twice a day and Zyprexa 5 mg 3 times a day is added into her scheduled medication as current plan with risperidone is not effective. Patient also having a backup for risperidone if she refused. 02/08/25: Slept most of the morning and last night. In better behavior control. No aggressive behavior. She is quiet, self dialogue, and medication compliant. Due to receive restrain medication yesterday. I did not make any medication change. But the Valium and additional Zyprexa appears to be helpful. 02/09 will try to change keppra to depakote for seizures as keppra may exacerbate psychosis. increase risperidone 1mg po daily and 2mg po qhs. may need to add second antipsychotic. 02/10 continues to present as paranoid with AH. at times declines oral medications, requiring IM back per court order. 02/11 continue tx. 02/12 continue tx. 02/13 continue tx. 02/14: no changes today. Monitor for agitation around confusion about hospitalization 02/15: no changes today, self dialogue more overt/extensive today 02/16 add olanzapine 5mg po qhs. continue risperidone. minimal improvement if any. 02/17 continue tx. 02/18 seems more somnolent with bedtime olanzapine, will continue to monitor. 02/19 cbc showed thrombocytopenia, which is new and suspect related to depakote 02/20 pt appears more sedated since addition of olanzapine at bedtime. She continues to self dialogue. minimal improvement. 02/21: Continue current management and treatment plan. 02/22: continue current management and treatment plan. 02/23 continue tx. may need to affirm HCP try different antipsychotic. 02/24 continue tx. results of LENORE 1:360, pattern homogenous A. 02/25 will try rexulti, lower risperidone. pending coordination of medical care to see if underlying autoimmune condition has anything to do with current presentation. 02/26 discussed with hospital deputy prosecuting attorney to dismiss sect 8, HCP invoked and can consent to other treatment. daughter Maricruz give permission to try different antipsychotic. 02/27 decrease risperidone to 1mg po daily, start prolixin 2.5mg po qhs, then increase to BID. continue olanzapine prn for agitation. olanzapine as well per court order. 03/03 pt seen by neurology, added HIV/RPR/LYME, can't have MRI due to cochlear implant. 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 Last Neurology appointment 01/2024. Missed appointment with rheumatology 05/2024, last seen in 02/26/2024. - Pt can't have MRI due to cochlear implant. Had head CT. - continue prolixin 2.5mg po daily, 5mg po qhs. will d/c risperidone, increase prolixin 5mg po BID, back up IM. 03/05 continue tx. 03/06 This field underwriter spoke with pt's community outreach worker, Dr. Al obtained collateral information. Will coordinate with neurology and rheumatology once LP results are available. r/o reoccurance of pachymeningitis, lupus or other autoimmune cause for psychosis. 03/07: Continue current regimen and plans. Discontinued one-to-one and put in place 5 minute checks 03/08: Continue current plans and regimen 03/09 continue tx. 03/10: continue current mgmt. continues disorganized and psychotic. see neuro note from today. continue with neuro w/u. 03/11: given zyprexa 5 and valium [address] and head CTA. head CTA WNL, chest CT showed numerous pulmonary nodules up to 10 mm in size. no change in presentation. due to persistent requests for discharge, 3-day notice submitted on her behalf. will work toward HCP affirmation by the court. 03/12: per pulm consult, chest CT more c/w rheumatological process than CA, recommended empiric steroid course. awaiting input from neuro. consider Bx of nodules otherwise. continue current mgmt for now. 03/13: variably calm and agitated. planning for bronchoscopy with pulmonary nodule Bx on sunday. continue current mgmt. case discussed with HCP Maricruz (daughter), who is in agreement with plan. 03/14: CSF with notable findings. will f/u with neuro on sunday. stable presentation for now, remains quite psychotic. continue current mgmt. bronchoscopy sunday. 03/15: no change from yesterday in presentation or plan. 03/16: stable presentation. continues confused, wanting to go home. HCP affirmation tomorrow. continue current mgmt. 03/17: stable presdentation. bronchoscopy pending. continue current mgmt. 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 awaiting bronchoscopy. remains psychotic. continue current mgmt for now. 03/20: no change in presentation. still awaiting go-ahead for brochoscopy. continue current mgmt. 03/22: No changes. Noted above. 03/23: awaiting insurance approval for bronchoscopy. stable presentation. 03/24: as for yesterday. 03/25: loudly RIS in milieu today. bronchoscopy scheduled for sunday at 1130. NPO past MN night. stable presentation. continue current mgmt. 03/26 pt presents as more disorganized and inattentive than usual showing more signs of delirious behavior. bronchoscopy was canceled,due to shortage of needles to complete biopsy. will order cbc, cmp, ammonia levels given increase disorganized behavior and worsening attention pointing at a more delirious presentation. * Review of results from LP showing negative results for meningitis panel/paraneoplastic panel (including most common antibody found in SLC which is EARL 1 which was negative), elevated protein in CSF 131 without leukocytosis, also elevated CSF/serum IgG index. elevated anti-ds dna titer 1:80. Such results may point more to a rheumatological condition than infectious condition or malignancy. Mrs. Sharif's OP community outreach worker, Dr. Al recommends trial of prednisone 40mg po daily at least for 2 weeks. 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 03/31 increase prolixin to 5mg po BID. continue all other medications including prednisone 40mg po daily. 04/01 discussed with her OP community outreach worker, Dr. Al possibility of transferring to [facility] for further tx of autoimmune condition, suspected also having lupus. continue prednisone. Spoke with daughter who is HCP, daughter concern about pt going to [facility] due to being dismissed several times when pt was first brought psychotic. 04/02 continue tx 04/03 increase prolixin to 5mg po TID. monitor EPS. 04/06 continue tx. 04/07- pending response from [facility] to see if they will take her for further evaluation of autoimmune condition with multidisciplinary team to continue see if psychosis related to autoimmune or primarily psychosis. Some improvement in attention, less guarded. continues to have auditory hallucinations. May consider switch to clozapine given that she has tried 3 antipsychotics with limited efficacy. 04/08 start clozapine 25mg po qhs. continue prolixin 7.5mg po TID. 04/09 increase clozapine to 50mg po qhs. continue prolixin 7.5mg po TID. 04/10 decrease prolixin to 7.5mg po BID. increase clozapine to 75mg po qhs. continue increasing clozapine by 25mg/day. automatic spinning lathe operator, recommends repeat CT in 2 weeks, and hold on bronchoscopy. 04/11: no change today, will titrate Clozapine further tomorrow 04/12: titrate Clozapine to 100 mg QHS 04/13 increase clozapine to 125mg po qhs. continue prolixin 7.5mg po BID. Reason for continued inpatient stay Substantial Risk for: inability to function Time Spent With Patient Time: Total time managing care of this patient today ____ minutes.
[2025-04-13] MEDS: Tiotropium Bromide 2.5 mcg 1 PUFF/2.5 MCG MIST.INHAL INHALE (08:56)
[2025-04-13] MEDS: Fluticasone/Vilanterol 200/25 BLST.W.DEV 1 PUFF INHALE (08:56)
[2025-04-13] MEDS: NIFEdipine ER 30 MG TAB.ER.24 PO (08:58)
[2025-04-13 20:00] VITALS: BP 148/67; PULSE 76; RESP 16; TEMP 35.6; O2SAT 98
[2025-04-14 09:58] VITALS: BP 147/69; PULSE 65; RESP 14; TEMP 35.8; O2SAT 100
[2025-04-14] MEDS: NIFEdipine ER 30 MG TAB.ER.24 PO (10:01)
[2025-04-14] MEDS: Tiotropium Bromide 2.5 mcg 1 PUFF/2.5 MCG MIST.INHAL INHALE (10:01)
[2025-04-14] MEDS: Fluticasone/Vilanterol 200/25 BLST.W.DEV 1 PUFF INHALE (10:01)
--- NOTE | 2025-04-14 11:39 | P.PNPSI_ITS ---
Subjective Subjective Date of Service: 04/14/25 Reason For Visit: Abnormal CT chest Subjective Notes: Conditional Voluntary Healthcare Proxy: Yes Interim History: Pt slept through the night. She continues to self dialogue and hears the voice of her daughter. She is less paranoid but continues to report that people are being rape/kill here on the unit. She is eating well. She reports some pain on fingers and knees. Provided update to daughter Maricruz who is HCP in terms of pt being treated for both autoimmune condition that may be contributing to psychosis as well as primarily psychiatric disorder (although less likely). Review of Systems Review of Systems Denies any shortness of breath, chest pain, dizziness, lightheadedness, abdominal pain or discomfort, nausea vomiting or diarrhea Yes all other systems are reviewed and are negative, Unobtainable due to mental condition, Unobtainable due to mental status and Other (patient refused to answer ROS questions) Constitutional: Reports as per HPI Eyes: Reports as per HPI Reports as per HPI Cardiovascular: Reports as per HPI Respiratory: Reports as per HPI Gastrointestinal: Reports as per HPI Musculoskeletal: Reports as per HPI Skin/Breast: Reports as per HPI Reports as per HPI and Reports confusion Psychiatric: Reports as per HPI and Reports confusion Endocrine: Reports as per HPI Hematologic/Lymphatic: Reports as per HPI Allergic/Immunologic: Reports as per HPI Mental Status Exam Mental Status Exam Narrative: Appearance: casual attire, adequate grooming and hygiene Behavior: calm, keeping to self, engagement limited by vision and hearing difficulties Orientation: alert, confused Memory: impaired Psychomotor Function: no agitation or slowing; no abnormal gestures or movements Speech: loud Mood: ok Affect: calm, non-labile Thought Process: disorganized Thought Content: delusional regarding discharge plans Hallucinations: AH constantly talking to daughter who is not there. Delusions: paranoid delusions. Insight: impairment Judgment: impairment Impulsivity: none noted Diagnostics Vital Signs (24Hr): Vital Signs - 24 hr 04/13/25 20:00 04/14/25 09:58 Temperature 96.1 F L 96.5 F L Pulse Rate 76 65 Respiratory Rate 16 14 Blood Pressure 148/67 H 147/69 H Pulse Oximetry 98 100 Oxygen Delivery Method Room Air Room Air BMI result Body Mass Index 31.2 Labs 03/29/25 08:55 03/29/25 08:55 Labs: Laboratory Results - last 48 hr 04/13/25 17:20 Hold Purple Top SEE NOTE TSH 0.51 Imaging Radiology Impressions: ITS Impressions Head CT 03/05/25 15:51 IMPRESSION: 1. No acute intracranial abnormality. 2. Right-sided cochlear nerve implant with associated streak artifact. 3. Right-sided canal wall up mastoidectomy. Electronically signed by: Levi Greer MD 03/05/2025 04:25 PM EDT RP Lumbar Puncture Fluoroscopy 03/09/25 11:50 IMPRESSION: Successful fluoroscopy-guided lumbar puncture performed without immediate complications Electronically signed by: Thompson Andujar MD 03/09/2025 04:06 PM EDT RP Chest CT 03/11/25 11:52 IMPRESSION: 1. Multiple bilateral pulmonary nodules measuring up to 10 mm in size. Further evaluation should be based on Fleischner Society guidelines below. 2. Cardiomegaly. Findings consistent with pulmonary arterial hypertension. 3. No evidence of mediastinal or hilar lymphadenopathy. Fleischner Criteria for pulmonary nodule follow-up SOLID NODULES: Low risk patient: <6mm: no follow-up 6-8mm: 6 month follow-up CT >8mm: PET/Biopsy/ 3 month follow-up CT High risk patient: <6mm: 12 month follow-up CT 6-8mm: 6 month follow-up CT >8mm: PET/Biopsy/ 3 month follow-up CT SUB-SOLID/GROUNDGLASS NODULES: All patients: > or = 6mm: 6 month follow-up CT *Please note that in patients in the following categories, the Fleischner criteria do not apply: Immunocompromised, lung cancer screening population, age below 35, and patients with known malignancy Electronically signed by: Best Clemons MD 03/11/2025 01:45 PM EDT RP Head CTA 03/11/25 11:52 IMPRESSION: Head CT: No acute intracranial abnormality. CT angiogram of the head: No vascular occlusions. Electronically signed by: Gypsy Salamanca MD 03/11/2025 03:02 PM EDT RP Medications Medications Current Medications Acetaminophen (Acetaminophen 325 Mg Tablet) 650 mg PO Q6H PRN PRN Reason: Headache/Pain, Scale 1-10 Last Admin: 04/13/25 09:53 Dose: 650 mg Al Hydroxide/Mg Hydroxide (Magnesium Hydrox/Alum Hydrox 30 Ml Oral.Susp) 30 ml PO Q6H PRN PRN Reason: Heartburn/Nausea Albuterol Sulfate (Albuterol Sulfate 90 Mcg 8 Gm Inhaler) 2 puff INHALE Q4H PRN PRN Reason: Shortness Of Breath Or Wheezing Atorvastatin Calcium (Atorvastatin Calcium 40 Mg Tablet) 40 mg PO DAILY [facility] Last Admin: 04/14/25 10:00 Dose: 40 mg Benztropine Mesylate (Benztropine Mesylate 0.5 Mg Tablet) 0.5 mg PO DAILY [facility] Last Admin: 04/14/25 10:00 Dose: 0.5 mg Benztropine Mesylate (Benztropine Mesylate 1 Mg Tablet) 1 mg PO BEDTIME [facility] Last Admin: 04/13/25 19:51 Dose: 1 mg Clonazepam (Clonazepam Odt 0.5 Mg Tab.Rapdis) 0.5 mg PO BID PRN PRN Reason: severe anxiety/sleep Last Admin: 03/31/25 20:37 Dose: 0.5 mg Clozapine (Clozapine 25 Mg Tablet) 125 mg PO BEDTIME [facility] Last Admin: 04/13/25 19:51 Dose: 125 mg Fluphenazine HCl (Fluphenazine Hcl 2.5 Mg/Ml 10 Ml Vial) 2.5 mg IM BID PRN PRN Reason: give if refuses oral per HCP Last Admin: 03/05/25 09:42 Dose: 2.5 mg Fluphenazine HCl (Fluphenazine Hcl 5 Mg Tablet) 5 mg PO BID [facility] Last Admin: 04/14/25 10:00 Dose: 5 mg Fluticasone/Vilanterol (Fluticasone/Vilanterol 200/25 Blst.W.Dev) 1 puff INHALE RDAILY [facility] Last Admin: 04/14/25 10:01 Dose: 1 puff Guaifenesin (Guaifenesin 200 Mg/10 Ml 10 Ml Liquid) 10 ml PO Q6H PRN PRN Reason: Cough Hydrochlorothiazide (Hydrochlorothiazide 25 Mg Tablet) 25 mg PO DAILY [facility] Last Admin: 04/14/25 10:00 Dose: 25 mg Levetiracetam (Levetiracetam 250 Mg Tablet) 250 mg PO BID [facility] Last Admin: 04/14/25 10:00 Dose: 250 mg Magnesium Hydroxide (Milk Of Magnesia 30 Ml Oral.Susp) 30 ml PO DAILY PRN PRN Reason: Constipation Methimazole (Methimazole 5 Mg Tablet) 5 mg PO DAILY [facility] Last Admin: 04/14/25 10:00 Dose: 5 mg Naloxone HCl (Naloxone Hcl 0.4 Mg/Ml Vial) 0.04 mg IVPUSH Q5M PRN PRN Reason: Excessive sedation or RR < 8 Nifedipine (Nifedipine Er 30 Mg Tab.Er.24) 30 mg PO DAILY [facility]; Protocol Last Admin: 04/14/25 10:01 Dose: 30 mg Olanzapine (Olanzapine 10 Mg Tablet) 10 mg PO Q6H PRN PRN Reason: severe agitation Last Admin: 04/07/25 14:42 Dose: 10 mg Prednisone (Prednisone 20 Mg Tablet) 40 mg PO DAILY [facility] Last Admin: 04/14/25 10:01 Dose: 40 mg Tiotropium [place] (Tiotropium [place] 2.5 Mcg 1 Puff/2.5 Mcg Mist.Inhal) 1 puff INHALE RDAILY [facility] Last Admin: 04/14/25 10:01 Dose: 1 puff Trazodone HCl (Trazodone Hcl 50 Mg Tablet) 50 mg PO BEDTIME MRX1 PRN PRN Reason: Insomnia Last Admin: 04/04/25 23:21 Dose: 50 mg Allergies Allergies Allergy/AdvReac Type Severity Reaction Status Date / Time latex Allergy Unknown Verified 03/09/25 11:50 peanut Allergy Unknown Verified 03/09/25 11:50 Penicillins Allergy Unknown Verified 03/09/25 11:50 Assessment & Plan Assessment & Plan (1) Psychosis: Status: Acute Code(s): F29 - Unspecified psychosis not due to a substance or known physiological condition Assessment and Plan: r/o autoimmune reasons for psychosis including lupus. (2) Pulmonary nodules: Status: Acute Code(s): R91.8 - Other nonspecific abnormal finding of lung field Assessment and Plan: Bloodwork Per airframe design engineer on 04/13/2025- repeat chest CT in 2 weeks after 4 week course of prednisone and reassess need for bronchoscopy. (3) Rheumatoid arthritis involving hand with positive rheumatoid factor: Status: Acute Code(s): M05.749 - Rheumatoid arthritis with rheumatoid factor of unspecified hand without organ or systems involvement Plan Mrs. Sharif is a 69 year-old woman who presents with a 3 month hx of new onset of psychosis (AH) and combination of paranoid delusions and cap gras delusions. No prior psychiatric hx. She does have of cocaine use but apparently had not used in some years. Daughter suspects she may have relapsed but no ongoing use. Pt presents with more complex theme of delusions. No additional medical work up available including head CT. CBC and cmp unremarkable. 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 It may be related to dementia process but complexity of delusions and psychosis not the common presentation for dementia that have psychosis early on such as in vascular dementia or LBD. Pt presents as gravely disable to able to care for self due to symptoms of psychosis and delusions. 02/03 increase night time risperidone 2mg po qhs increase cogetin at bedtime to 1mg po qhs. lower daily dose to 0.5mg po daily. continue cogentin 0.5mg po daily. clonazepam as prn olanzapine as prn for agitation 02/04 continue tx. 02/05 continue tx. 02/06 continue current dose of risperidone. NOTE THAT pt can't take doses higher than 3 mg/day of risperidone as higher doses had severe EPS. can use olanzapine as well per court order. 02/07/25: Patient has been agitated yelling loudly exist seeking, delusional thinking her daughter/son outside at the door to pick her up. PRNs given in the morning with mild effect. Patient became agitated, aggressive\, assaultive to 1 of the staff on the floor, yelling and hitting her face so grabbing her neck. Physical was started at 16:31 to 1634. Patient was given IM medication of Zyprexa 10 and Valium 10 with good effect. Tomorrow plan: Patient will be benefit from Valium 10 mg twice a day and Zyprexa 5 mg 3 times a day is added into her scheduled medication as current plan with risperidone is not effective. Patient also having a backup for risperidone if she refused. 02/08/25: Slept most of the morning and last night. In better behavior control. No aggressive behavior. She is quiet, self dialogue, and medication compliant. Due to receive restrain medication yesterday. I did not make any medication change. But the Valium and additional Zyprexa appears to be helpful. 02/09 will try to change keppra to depakote for seizures as keppra may exacerbate psychosis. increase risperidone 1mg po daily and 2mg po qhs. may need to add second antipsychotic. 02/10 continues to present as paranoid with AH. at times declines oral medications, requiring IM back per court order. 02/11 continue tx. 02/12 continue tx. 02/13 continue tx. 02/14: no changes today. Monitor for agitation around confusion about hospitalization 02/15: no changes today, self dialogue more overt/extensive today 02/16 add olanzapine 5mg po qhs. continue risperidone. minimal improvement if any. 02/17 continue tx. 02/18 seems more somnolent with bedtime olanzapine, will continue to monitor. 02/19 cbc showed thrombocytopenia, which is new and suspect related to depakote 02/20 pt appears more sedated since addition of olanzapine at bedtime. She continues to self dialogue. minimal improvement. 02/21: Continue current management and treatment plan. 02/22: continue current management and treatment plan. 02/23 continue tx. may need to affirm HCP try different antipsychotic. 02/24 continue tx. results of LENORE 1:360, pattern homogenous A. 02/25 will try rexulti, lower risperidone. pending coordination of medical care to see if underlying autoimmune condition has anything to do with current presentation. 02/26 discussed with hospital lining setter to dismiss sect 8, HCP invoked and can consent to other treatment. daughter Maricruz give permission to try different antipsychotic. 02/27 decrease risperidone to 1mg po daily, start prolixin 2.5mg po qhs, then increase to BID. continue olanzapine prn for agitation. olanzapine as well per court order. 03/03 pt seen by neurology, added HIV/RPR/LYME, can't have MRI due to cochlear implant. 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 Last Neurology appointment 01/2024. Missed appointment with rheumatology 05/2024, last seen in 02/26/2024. - Pt can't have MRI due to cochlear implant. Had head CT. - continue prolixin 2.5mg po daily, 5mg po qhs. will d/c risperidone, increase prolixin 5mg po BID, back up IM. 03/05 continue tx. 03/06 This service writer advisor spoke with pt's clothing sorter, Dr. Al obtained collateral information. Will coordinate with neurology and rheumatology once LP results are available. r/o reoccurance of pachymeningitis, lupus or other autoimmune cause for psychosis. 03/07: Continue current regimen and plans. Discontinued one-to-one and put in place 5 minute checks 03/08: Continue current plans and regimen 03/09 continue tx. 03/10: continue current mgmt. continues disorganized and psychotic. see neuro note from today. continue with neuro w/u. 03/11: given zyprexa 5 and valium [address] and head CTA. head CTA WNL, chest CT showed numerous pulmonary nodules up to 10 mm in size. no change in presentation. due to persistent requests for discharge, 3-day notice submitted on her behalf. will work toward HCP affirmation by the court. 03/12: per pulm consult, chest CT more c/w rheumatological process than CA, recommended empiric steroid course. awaiting input from neuro. consider Bx of nodules otherwise. continue current mgmt for now. 03/13: variably calm and agitated. planning for bronchoscopy with pulmonary nodule Bx on sunday. continue current mgmt. case discussed with HCP Maricruz (daughter), who is in agreement with plan. 03/14: CSF with notable findings. will f/u with neuro on sunday. stable presentation for now, remains quite psychotic. continue current mgmt. bronchoscopy sunday. 03/15: no change from yesterday in presentation or plan. 03/16: stable presentation. continues confused, wanting to go home. HCP affirmation tomorrow. continue current mgmt. 03/17: stable presdentation. bronchoscopy pending. continue current mgmt. 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 awaiting bronchoscopy. remains psychotic. continue current mgmt for now. 03/20: no change in presentation. still awaiting go-ahead for brochoscopy. continue current mgmt. 03/22: No changes. Noted above. 03/23: awaiting insurance approval for bronchoscopy. stable presentation. 03/24: as for yesterday. 03/25: loudly RIS in milieu today. bronchoscopy scheduled for sunday at 1130. NPO past MN night. stable presentation. continue current mgmt. 03/26 pt presents as more disorganized and inattentive than usual showing more signs of delirious behavior. bronchoscopy was canceled,due to shortage of needles to complete biopsy. will order cbc, cmp, ammonia levels given increase disorganized behavior and worsening attention pointing at a more delirious presentation. * Review of results from LP showing negative results for meningitis panel/paraneoplastic panel (including most common antibody found in SLC which is EARL 1 which was negative), elevated protein in CSF 131 without leukocytosis, also elevated CSF/serum IgG index. elevated anti-ds dna titer 1:80. Such results may point more to a rheumatological condition than infectious condition or malignancy. Mrs. Sharif's OP clothing sorter, Dr. Al recommends trial of prednisone 40mg po daily at least for 2 weeks. 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 03/31 increase prolixin to 5mg po BID. continue all other medications including prednisone 40mg po daily. 04/01 discussed with her OP clothing sorter, Dr. Al possibility of transferring to [facility] for further tx of autoimmune condition, suspected also having lupus. continue prednisone. Spoke with daughter who is HCP, daughter concern about pt going to [facility] due to being dismissed several times when pt was first brought psychotic. 04/02 continue tx 04/03 increase prolixin to 5mg po TID. monitor EPS. 04/06 continue tx. 04/07- pending response from [facility] to see if they will take her for further evaluation of autoimmune condition with multidisciplinary team to continue see if psychosis related to autoimmune or primarily psychosis. Some improvement in attention, less guarded. continues to have auditory hallucinations. May consider switch to clozapine given that she has tried 3 antipsychotics with limited efficacy. 04/08 start clozapine 25mg po qhs. continue prolixin 7.5mg po TID. 04/09 increase clozapine to 50mg po qhs. continue prolixin 7.5mg po TID. 04/10 decrease prolixin to 7.5mg po BID. increase clozapine to 75mg po qhs. continue increasing clozapine by 25mg/day. airframe design engineer, recommends repeat CT in 2 weeks, and hold on bronchoscopy. 04/11: no change today, will titrate Clozapine further tomorrow 04/12: titrate Clozapine to 100 mg QHS 04/13 increase clozapine to 125mg po qhs. continue prolixin 7.5mg po BID. 04/14 Provided update to daughter Maricruz who is HCP in terms of pt being treated for both autoimmune condition that may be contributing to psychosis (with prednione) as well as primarily psychiatric disorder (although less likely) with clozapine. some improvement in attention, slightly less paranoid but continues to present with ongoing AH of her daughter. Reason for continued inpatient stay Substantial Risk for: inability to function Time Spent With Patient Time: Total time managing care of this patient today ____ minutes.
[2025-04-14 20:00] VITALS: BP 105/57; PULSE 77; RESP 16; TEMP 36.2; O2SAT 98
[2025-04-15 08:03] VITALS: BP 127/71; PULSE 90; RESP 18; TEMP 35.9; O2SAT 98
[2025-04-15] MEDS: Tiotropium Bromide 2.5 mcg 1 PUFF/2.5 MCG MIST.INHAL INHALE (08:10)
[2025-04-15] MEDS: NIFEdipine ER 30 MG TAB.ER.24 PO (08:13)
[2025-04-15] MEDS: Fluticasone/Vilanterol 200/25 BLST.W.DEV 1 PUFF INHALE (08:14)
--- NOTE | 2025-04-15 19:35 | P.PNPSI_ITS ---
Subjective Subjective Date of Service: 04/15/25 Reason For Visit: Abnormal CT chest Subjective Notes: Conditional Voluntary Healthcare Proxy: Yes Interim History: Pt slept through the night. She continues to self dialogue and hears the voice of her daughter. She is less paranoid but continues to report that people are being rape/kill here on the unit. She is eating well. She reports some pain on fingers and knees. Review of Systems Review of Systems Denies any shortness of breath, chest pain, dizziness, lightheadedness, abdominal pain or discomfort, nausea vomiting or diarrhea Yes all other systems are reviewed and are negative, Unobtainable due to mental condition, Unobtainable due to mental status and Other (patient refused to answer ROS questions) Constitutional: Reports as per HPI Eyes: Reports as per HPI Reports as per HPI Cardiovascular: Reports as per HPI Respiratory: Reports as per HPI Gastrointestinal: Reports as per HPI Musculoskeletal: Reports as per HPI Skin/Breast: Reports as per HPI Reports as per HPI and Reports confusion Psychiatric: Reports as per HPI and Reports confusion Endocrine: Reports as per HPI Hematologic/Lymphatic: Reports as per HPI Allergic/Immunologic: Reports as per HPI Mental Status Exam Mental Status Exam Narrative: Appearance: casual attire, adequate grooming and hygiene Behavior: calm, keeping to self, engagement limited by vision and hearing difficulties Orientation: alert, confused Memory: impaired Psychomotor Function: no agitation or slowing; no abnormal gestures or movements Speech: loud Mood: ok Affect: calm, non-labile Thought Process: disorganized Thought Content: delusional regarding discharge plans Hallucinations: AH constantly talking to daughter who is not there. Delusions: paranoid delusions. Insight: impairment Judgment: impairment Impulsivity: none noted Diagnostics Vital Signs (24Hr): Vital Signs - 24 hr 04/14/25 20:00 04/15/25 08:03 Temperature 97.2 F 96.6 F L Pulse Rate 77 90 Respiratory Rate 16 18 Blood Pressure 105/57 L 127/71 Pulse Oximetry 98 98 Oxygen Delivery Method Room Air Room Air BMI result Body Mass Index 31.2 Labs 03/29/25 08:55 03/29/25 08:55 Imaging Radiology Impressions: ITS Impressions Head CT 03/05/25 15:51 IMPRESSION: 1. No acute intracranial abnormality. 2. Right-sided cochlear nerve implant with associated streak artifact. 3. Right-sided canal wall up mastoidectomy. Electronically signed by: Levi Greer MD 03/05/2025 04:25 PM EDT RP Lumbar Puncture Fluoroscopy 03/09/25 11:50 IMPRESSION: Successful fluoroscopy-guided lumbar puncture performed without immediate complications Electronically signed by: Thompson Andujar MD 03/09/2025 04:06 PM EDT RP Chest CT 03/11/25 11:52 IMPRESSION: 1. Multiple bilateral pulmonary nodules measuring up to 10 mm in size. Further evaluation should be based on Fleischner Society guidelines below. 2. Cardiomegaly. Findings consistent with pulmonary arterial hypertension. 3. No evidence of mediastinal or hilar lymphadenopathy. Fleischner Criteria for pulmonary nodule follow-up SOLID NODULES: Low risk patient: <6mm: no follow-up 6-8mm: 6 month follow-up CT >8mm: PET/Biopsy/ 3 month follow-up CT High risk patient: <6mm: 12 month follow-up CT 6-8mm: 6 month follow-up CT >8mm: PET/Biopsy/ 3 month follow-up CT SUB-SOLID/GROUNDGLASS NODULES: All patients: > or = 6mm: 6 month follow-up CT *Please note that in patients in the following categories, the Fleischner criteria do not apply: Immunocompromised, lung cancer screening population, age below 35, and patients with known malignancy Electronically signed by: Best Clemons MD 03/11/2025 01:45 PM EDT RP Head CTA 03/11/25 11:52 IMPRESSION: Head CT: No acute intracranial abnormality. CT angiogram of the head: No vascular occlusions. Electronically signed by: Gypsy Salamanca MD 03/11/2025 03:02 PM EDT RP Medications Medications Current Medications Acetaminophen (Acetaminophen 325 Mg Tablet) 650 mg PO Q6H PRN PRN Reason: Headache/Pain, Scale 1-10 Last Admin: 04/13/25 09:53 Dose: 650 mg Al Hydroxide/Mg Hydroxide (Magnesium Hydrox/Alum Hydrox 30 Ml Oral.Susp) 30 ml PO Q6H PRN PRN Reason: Heartburn/Nausea Albuterol Sulfate (Albuterol Sulfate 90 Mcg 8 Gm Inhaler) 2 puff INHALE Q4H PRN PRN Reason: Shortness Of Breath Or Wheezing Atorvastatin Calcium (Atorvastatin Calcium 40 Mg Tablet) 40 mg PO DAILY [facility] Last Admin: 04/15/25 08:13 Dose: 40 mg Benztropine Mesylate (Benztropine Mesylate 0.5 Mg Tablet) 0.5 mg PO DAILY [facility] Last Admin: 04/15/25 08:12 Dose: 0.5 mg Benztropine Mesylate (Benztropine Mesylate 1 Mg Tablet) 1 mg PO BEDTIME [facility] Last Admin: 04/14/25 19:55 Dose: 1 mg Clonazepam (Clonazepam Odt 0.5 Mg Tab.Rapdis) 0.5 mg PO BID PRN PRN Reason: severe anxiety/sleep Last Admin: 03/31/25 20:37 Dose: 0.5 mg Clozapine 100 mg/ Clozapine 25 (mg) 125 mg PO BEDTIME [facility] Fluphenazine HCl (Fluphenazine Hcl 2.5 Mg/Ml 10 Ml Vial) 2.5 mg IM BID PRN PRN Reason: give if refuses oral per HCP Last Admin: 03/05/25 09:42 Dose: 2.5 mg Fluphenazine HCl (Fluphenazine Hcl 2.5 Mg Tablet) 5 mg PO BID [facility] Last Admin: 04/15/25 08:11 Dose: 5 mg Fluticasone/Vilanterol (Fluticasone/Vilanterol 200/25 Blst.W.Dev) 1 puff INHALE RDAILY [facility] Last Admin: 04/15/25 08:14 Dose: 1 puff Guaifenesin (Guaifenesin 200 Mg/10 Ml 10 Ml Liquid) 10 ml PO Q6H PRN PRN Reason: Cough Hydrochlorothiazide (Hydrochlorothiazide 25 Mg Tablet) 25 mg PO DAILY [facility] Last Admin: 04/15/25 08:12 Dose: 25 mg Levetiracetam (Levetiracetam 250 Mg Tablet) 250 mg PO BID [facility] Last Admin: 04/15/25 08:13 Dose: 250 mg Magnesium Hydroxide (Milk Of Magnesia 30 Ml Oral.Susp) 30 ml PO DAILY PRN PRN Reason: Constipation Methimazole (Methimazole 5 Mg Tablet) 5 mg PO DAILY [facility] Last Admin: 04/15/25 08:12 Dose: 5 mg Naloxone HCl (Naloxone Hcl 0.4 Mg/Ml Vial) 0.04 mg IVPUSH Q5M PRN PRN Reason: Excessive sedation or RR < 8 Nifedipine (Nifedipine Er 30 Mg Tab.Er.24) 30 mg PO DAILY [facility]; Protocol Last Admin: 04/15/25 08:13 Dose: 30 mg Olanzapine (Olanzapine 10 Mg Tablet) 10 mg PO Q6H PRN PRN Reason: severe agitation Last Admin: 04/07/25 14:42 Dose: 10 mg Prednisone (Prednisone 20 Mg Tablet) 40 mg PO DAILY [facility] Last Admin: 04/15/25 08:12 Dose: 40 mg Tiotropium Moroni (Tiotropium Moroni 2.5 Mcg 1 Puff/2.5 Mcg Mist.Inhal) 1 puff INHALE RDAILY [facility] Last Admin: 04/15/25 08:10 Dose: 1 puff Trazodone HCl (Trazodone Hcl 50 Mg Tablet) 50 mg PO BEDTIME MRX1 PRN PRN Reason: Insomnia Last Admin: 04/04/25 23:21 Dose: 50 mg Allergies Allergies Allergy/AdvReac Type Severity Reaction Status Date / Time latex Allergy Unknown Verified 03/09/25 11:50 peanut Allergy Unknown Verified 03/09/25 11:50 Penicillins Allergy Unknown Verified 03/09/25 11:50 Assessment & Plan Assessment & Plan (1) Psychosis: Status: Acute Code(s): F29 - Unspecified psychosis not due to a substance or known physiological condition Assessment and Plan: r/o autoimmune reasons for psychosis including lupus. (2) Pulmonary nodules: Status: Acute Code(s): R91.8 - Other nonspecific abnormal finding of lung field Assessment and Plan: Bloodwork Per lead architect on 04/13/2025- repeat chest CT in 2 weeks after 4 week course of prednisone and reassess need for bronchoscopy. (3) Rheumatoid arthritis involving hand with positive rheumatoid factor: Status: Acute Code(s): M05.749 - Rheumatoid arthritis with rheumatoid factor of unspecified hand without organ or systems involvement Plan Mrs. Sharif is a 69 year-old woman who presents with a 3 month hx of new onset of psychosis (AH) and combination of paranoid delusions and cap gras delusions. No prior psychiatric hx. She does have of cocaine use but apparently had not used in some years. Daughter suspects she may have relapsed but no ongoing use. Pt presents with more complex theme of delusions. No additional medical work up available including head CT. CBC and cmp unremarkable. 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 It may be related to dementia process but complexity of delusions and psychosis not the common presentation for dementia that have psychosis early on such as in vascular dementia or LBD. Pt presents as gravely disable to able to care for self due to symptoms of psychosis and delusions. 02/03 increase night time risperidone 2mg po qhs increase cogetin at bedtime to 1mg po qhs. lower daily dose to 0.5mg po daily. continue cogentin 0.5mg po daily. clonazepam as prn olanzapine as prn for agitation 02/04 continue tx. 02/05 continue tx. 02/06 continue current dose of risperidone. NOTE THAT pt can't take doses higher than 3 mg/day of risperidone as higher doses had severe EPS. can use olanzapine as well per court order. 02/07/25: Patient has been agitated yelling loudly exist seeking, delusional thinking her daughter/son outside at the door to pick her up. PRNs given in the morning with mild effect. Patient became agitated, aggressive\, assaultive to 1 of the staff on the floor, yelling and hitting her face so grabbing her neck. Physical was started at 16:31 to 1634. Patient was given IM medication of Zyprexa 10 and Valium 10 with good effect. Tomorrow plan: Patient will be benefit from Valium 10 mg twice a day and Zyprexa 5 mg 3 times a day is added into her scheduled medication as current plan with risperidone is not effective. Patient also having a backup for risperidone if she refused. 02/08/25: Slept most of the morning and last night. In better behavior control. No aggressive behavior. She is quiet, self dialogue, and medication compliant. Due to receive restrain medication yesterday. I did not make any medication change. But the Valium and additional Zyprexa appears to be helpful. 02/09 will try to change keppra to depakote for seizures as keppra may exacerbate psychosis. increase risperidone 1mg po daily and 2mg po qhs. may need to add second antipsychotic. 02/10 continues to present as paranoid with AH. at times declines oral medications, requiring IM back per court order. 02/11 continue tx. 02/12 continue tx. 02/13 continue tx. 02/14: no changes today. Monitor for agitation around confusion about hospitalization 02/15: no changes today, self dialogue more overt/extensive today 02/16 add olanzapine 5mg po qhs. continue risperidone. minimal improvement if any. 02/17 continue tx. 02/18 seems more somnolent with bedtime olanzapine, will continue to monitor. 02/19 cbc showed thrombocytopenia, which is new and suspect related to depakote 02/20 pt appears more sedated since addition of olanzapine at bedtime. She continues to self dialogue. minimal improvement. 02/21: Continue current management and treatment plan. 02/22: continue current management and treatment plan. 02/23 continue tx. may need to affirm HCP try different antipsychotic. 02/24 continue tx. results of LENORE 1:360, pattern homogenous A. 02/25 will try rexulti, lower risperidone. pending coordination of medical care to see if underlying autoimmune condition has anything to do with current presentation. 02/26 discussed with hospital trust and estates attorney to dismiss sect 8, HCP invoked and can consent to other treatment. daughter Maricruz give permission to try different antipsychotic. 02/27 decrease risperidone to 1mg po daily, start prolixin 2.5mg po qhs, then increase to BID. continue olanzapine prn for agitation. olanzapine as well per court order. 03/03 pt seen by neurology, added HIV/RPR/LYME, can't have MRI due to cochlear implant. 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 Last Neurology appointment 01/2024. Missed appointment with rheumatology 05/2024, last seen in 02/26/2024. - Pt can't have MRI due to cochlear implant. Had head CT. - continue prolixin 2.5mg po daily, 5mg po qhs. will d/c risperidone, increase prolixin 5mg po BID, back up IM. 03/05 continue tx. 03/06 This [facility] under[employer] spoke with pt's senior assistant manager, Dr. Al obtained collateral information. Will coordinate with neurology and rheumatology once LP results are available. r/o reoccurance of pachymeningitis, lupus or other autoimmune cause for psychosis. 03/07: Continue current regimen and plans. Discontinued one-to-one and put in place 5 minute checks 03/08: Continue current plans and regimen 03/09 continue tx. 03/10: continue current mgmt. continues disorganized and psychotic. see neuro note from today. continue with neuro w/u. 03/11: given zyprexa 5 and valium [address] and head CTA. head CTA WNL, chest CT showed numerous pulmonary nodules up to 10 mm in size. no change in presentation. due to persistent requests for discharge, 3-day notice submitted on her behalf. will work toward HCP affirmation by the court. 03/12: per pulm consult, chest CT more c/w rheumatological process than CA, recommended empiric steroid course. awaiting input from neuro. consider Bx of nodules otherwise. continue current mgmt for now. 03/13: variably calm and agitated. planning for bronchoscopy with pulmonary nodule Bx on sunday. continue current mgmt. case discussed with HCP Maricruz (daughter), who is in agreement with plan. 03/14: CSF with notable findings. will f/u with neuro on sunday. stable presentation for now, remains quite psychotic. continue current mgmt. bronchoscopy sunday. 03/15: no change from yesterday in presentation or plan. 03/16: stable presentation. continues confused, wanting to go home. HCP affirmation tomorrow. continue current mgmt. 03/17: stable presdentation. bronchoscopy pending. continue current mgmt. 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 awaiting bronchoscopy. remains psychotic. continue current mgmt for now. 03/20: no change in presentation. still awaiting go-ahead for brochoscopy. continue current mgmt. 03/22: No changes. Noted above. 03/23: awaiting insurance approval for bronchoscopy. stable presentation. 03/24: as for yesterday. 03/25: loudly RIS in milieu today. bronchoscopy scheduled for sunday at 1130. NPO past MN night. stable presentation. continue current mgmt. 03/26 pt presents as more disorganized and inattentive than usual showing more signs of delirious behavior. bronchoscopy was canceled,due to shortage of needles to complete biopsy. will order cbc, cmp, ammonia levels given increase disorganized behavior and worsening attention pointing at a more delirious presentation. * Review of results from LP showing negative results for meningitis panel/paraneoplastic panel (including most common antibody found in [facility] which is EARL 1 which was negative), elevated protein in CSF 131 without leukocytosis, also elevated CSF/serum IgG index. elevated anti-ds dna titer 1:80. Such results may point more to a rheumatological condition than infectious condition or malignancy. Mrs. Sharif's OP senior assistant manager, Dr. Al recommends trial of prednisone 40mg po daily at least for 2 weeks. 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 03/31 increase prolixin to 5mg po BID. continue all other medications including prednisone 40mg po daily. 04/01 discussed with her OP senior assistant manager, Dr. Al possibility of transferring to [facility] for further tx of autoimmune condition, suspected also having lupus. continue prednisone. Spoke with daughter who is HCP, daughter concern about pt going to [facility] due to being dismissed several times when pt was first brought psychotic. 04/02 continue tx 04/03 increase prolixin to 5mg po TID. monitor EPS. 04/06 continue tx. 04/07- pending response from [facility] to see if they will take her for further evaluation of autoimmune condition with multidisciplinary team to continue see if psychosis related to autoimmune or primarily psychosis. Some improvement in attention, less guarded. continues to have auditory hallucinations. May consider switch to clozapine given that she has tried 3 antipsychotics with limited efficacy. 04/08 start clozapine 25mg po qhs. continue prolixin 7.5mg po TID. 04/09 increase clozapine to 50mg po qhs. continue prolixin 7.5mg po TID. 04/10 decrease prolixin to 7.5mg po BID. increase clozapine to 75mg po qhs. continue increasing clozapine by 25mg/day. lead architect, recommends repeat CT in 2 weeks, and hold on bronchoscopy. 04/11: no change today, will titrate Clozapine further tomorrow 04/12: titrate Clozapine to 100 mg QHS 04/13 increase clozapine to 125mg po qhs. continue prolixin 7.5mg po BID. 04/14 Provided update to daughter Maricruz who is HCP in terms of pt being treated for both autoimmune condition that may be contributing to psychosis (with prednione) as well as primarily psychiatric disorder (although less likely) with clozapine. some improvement in attention, slightly less paranoid but continues to present with ongoing AH of her daughter. 04/15 continue tx. Reason for continued inpatient stay Substantial Risk for: inability to function Time Spent With Patient Time: Total time managing care of this patient today ____ minutes.
[2025-04-15 20:00] VITALS: BP 155/76; PULSE 72; RESP 16; TEMP 35.8; O2SAT 98
[2025-04-16 08:00] VITALS: BP 118/63; PULSE 63; RESP 16; TEMP 36.5; O2SAT 95
[2025-04-16 08:09] LABS: Neut%MD 60.3 %; WBCANC 8.1 X10*3/uL
[2025-04-16] MEDS: Fluticasone/Vilanterol 200/25 BLST.W.DEV 1 PUFF INHALE (08:23)
[2025-04-16] MEDS: Tiotropium Bromide 2.5 mcg 1 PUFF/2.5 MCG MIST.INHAL INHALE (08:23)
[2025-04-16] MEDS: NIFEdipine ER 30 MG TAB.ER.24 PO (08:25)
--- NOTE | 2025-04-16 09:08 | P.PNPSI_ITS ---
Subjective Subjective Date of Service: 04/16/25 Reason For Visit: Abnormal CT chest Subjective Notes: Conditional Voluntary Healthcare Proxy: Yes Interim History: Pt slept through the night. She continues to self dialogue and hears the voice of her daughter. She is less paranoid but continues to report that people are being rape/kill here on the unit. She is eating well. She reports some pain on fingers and knees. we complete a clock draw and she is able to do it in a more organized way. able to place all number and hands correctly 10 past 11. Review of Systems Review of Systems Denies any shortness of breath, chest pain, dizziness, lightheadedness, abdominal pain or discomfort, nausea vomiting or diarrhea Yes all other systems are reviewed and are negative, Unobtainable due to mental condition, Unobtainable due to mental status and Other (patient refused to answer ROS questions) Constitutional: Reports as per HPI Eyes: Reports as per HPI Reports as per HPI Cardiovascular: Reports as per HPI Respiratory: Reports as per HPI Gastrointestinal: Reports as per HPI Musculoskeletal: Reports as per HPI Skin/Breast: Reports as per HPI Reports as per HPI and Reports confusion Psychiatric: Reports as per HPI and Reports confusion Endocrine: Reports as per HPI Hematologic/Lymphatic: Reports as per HPI Allergic/Immunologic: Reports as per HPI Mental Status Exam Mental Status Exam Narrative: Appearance: casual attire, adequate grooming and hygiene Behavior: calm, keeping to self, engagement limited by vision and hearing difficulties Orientation: alert, confused Memory: impaired Psychomotor Function: no agitation or slowing; no abnormal gestures or movements Speech: loud Mood: ok Affect: calm, non-labile Thought Process: disorganized Thought Content: delusional regarding discharge plans Hallucinations: AH constantly talking to daughter who is not there. Delusions: paranoid delusions. Insight: impairment Judgment: impairment Impulsivity: none noted Diagnostics Vital Signs (24Hr): Vital Signs - 24 hr 04/15/25 20:00 04/16/25 08:00 Temperature 96.4 F L 97.7 F Pulse Rate 72 63 Respiratory Rate 16 16 Blood Pressure 155/76 H 118/63 Pulse Oximetry 98 95 Oxygen Delivery Method Room Air Room Air BMI result Body Mass Index 31.2 Labs 03/29/25 08:55 03/29/25 08:55 Labs: Laboratory Results - last 48 hr 04/16/25 07:15 Absolute Neuts (auto) 4.9 Imaging Radiology Impressions: ITS Impressions Head CT 03/05/25 15:51 IMPRESSION: 1. No acute intracranial abnormality. 2. Right-sided cochlear nerve implant with associated streak artifact. 3. Right-sided canal wall up mastoidectomy. Electronically signed by: Levi Greer MD 03/05/2025 04:25 PM EDT RP Lumbar Puncture Fluoroscopy 03/09/25 11:50 IMPRESSION: Successful fluoroscopy-guided lumbar puncture performed without immediate complications Electronically signed by: Thompson Andujar MD 03/09/2025 04:06 PM EDT RP Chest CT 03/11/25 11:52 IMPRESSION: 1. Multiple bilateral pulmonary nodules measuring up to 10 mm in size. Further evaluation should be based on Fleischner Society guidelines below. 2. Cardiomegaly. Findings consistent with pulmonary arterial hypertension. 3. No evidence of mediastinal or hilar lymphadenopathy. Fleischner Criteria for pulmonary nodule follow-up SOLID NODULES: Low risk patient: <6mm: no follow-up 6-8mm: 6 month follow-up CT >8mm: PET/Biopsy/ 3 month follow-up CT High risk patient: <6mm: 12 month follow-up CT 6-8mm: 6 month follow-up CT >8mm: PET/Biopsy/ 3 month follow-up CT SUB-SOLID/GROUNDGLASS NODULES: All patients: > or = 6mm: 6 month follow-up CT *Please note that in patients in the following categories, the Fleischner criteria do not apply: Immunocompromised, lung cancer screening population, age below 35, and patients with known malignancy Electronically signed by: Best Clemons MD 03/11/2025 01:45 PM EDT RP Head CTA 03/11/25 11:52 IMPRESSION: Head CT: No acute intracranial abnormality. CT angiogram of the head: No vascular occlusions. Electronically signed by: Gypsy Salamanca MD 03/11/2025 03:02 PM EDT RP Medications Medications Current Medications Acetaminophen (Acetaminophen 325 Mg Tablet) 650 mg PO Q6H PRN PRN Reason: Headache/Pain, Scale 1-10 Last Admin: 04/16/25 08:22 Dose: 650 mg Al Hydroxide/Mg Hydroxide (Magnesium Hydrox/Alum Hydrox 30 Ml Oral.Susp) 30 ml PO Q6H PRN PRN Reason: Heartburn/Nausea Albuterol Sulfate (Albuterol Sulfate 90 Mcg 8 Gm Inhaler) 2 puff INHALE Q4H PRN PRN Reason: Shortness Of Breath Or Wheezing Atorvastatin Calcium (Atorvastatin Calcium 40 Mg Tablet) 40 mg PO DAILY [facility] Last Admin: 04/16/25 08:25 Dose: 40 mg Benztropine Mesylate (Benztropine Mesylate 0.5 Mg Tablet) 0.5 mg PO DAILY [facility] Last Admin: 04/16/25 08:24 Dose: 0.5 mg Benztropine Mesylate (Benztropine Mesylate 1 Mg Tablet) 1 mg PO BEDTIME [facility] Last Admin: 04/15/25 20:27 Dose: 1 mg Clonazepam (Clonazepam Odt 0.5 Mg Tab.Rapdis) 0.5 mg PO BID PRN PRN Reason: severe anxiety/sleep Last Admin: 03/31/25 20:37 Dose: 0.5 mg Clozapine 100 mg/ Clozapine 25 (mg) 125 mg PO BEDTIME [facility] Last Admin: 04/15/25 20:28 Dose: 125 mg Fluphenazine HCl (Fluphenazine Hcl 2.5 Mg/Ml 10 Ml Vial) 2.5 mg IM BID PRN PRN Reason: give if refuses oral per HCP Last Admin: 03/05/25 09:42 Dose: 2.5 mg Fluphenazine HCl (Fluphenazine Hcl 2.5 Mg Tablet) 5 mg PO BID [facility] Last Admin: 04/16/25 08:23 Dose: 5 mg Fluticasone/Vilanterol (Fluticasone/Vilanterol 200/25 Blst.W.Dev) 1 puff INHALE RDAILY [facility] Last Admin: 04/16/25 08:23 Dose: 1 puff Guaifenesin (Guaifenesin 200 Mg/10 Ml 10 Ml Liquid) 10 ml PO Q6H PRN PRN Reason: Cough Hydrochlorothiazide (Hydrochlorothiazide 25 Mg Tablet) 25 mg PO DAILY [facility] Last Admin: 04/16/25 08:25 Dose: 25 mg Levetiracetam (Levetiracetam 250 Mg Tablet) 250 mg PO BID [facility] Last Admin: 04/16/25 08:25 Dose: 250 mg Magnesium Hydroxide (Milk Of Magnesia 30 Ml Oral.Susp) 30 ml PO DAILY PRN PRN Reason: Constipation Methimazole (Methimazole 5 Mg Tablet) 5 mg PO DAILY [facility] Last Admin: 04/16/25 08:24 Dose: 5 mg Naloxone HCl (Naloxone Hcl 0.4 Mg/Ml Vial) 0.04 mg IVPUSH Q5M PRN PRN Reason: Excessive sedation or RR < 8 Nifedipine (Nifedipine Er 30 Mg Tab.Er.24) 30 mg PO DAILY [facility]; Protocol Last Admin: 04/16/25 08:25 Dose: 30 mg Olanzapine (Olanzapine 10 Mg Tablet) 10 mg PO Q6H PRN PRN Reason: severe agitation Last Admin: 04/07/25 14:42 Dose: 10 mg Prednisone (Prednisone 20 Mg Tablet) 40 mg PO DAILY [facility] Last Admin: 04/16/25 08:24 Dose: 40 mg Tiotropium [place] (Tiotropium [place] 2.5 Mcg 1 Puff/2.5 Mcg Mist.Inhal) 1 puff INHALE RDAILY [facility] Last Admin: 04/16/25 08:23 Dose: 1 puff Trazodone HCl (Trazodone Hcl 50 Mg Tablet) 50 mg PO BEDTIME MRX1 PRN PRN Reason: Insomnia Last Admin: 04/04/25 23:21 Dose: 50 mg Allergies Allergies Allergy/AdvReac Type Severity Reaction Status Date / Time latex Allergy Unknown Verified 03/09/25 11:50 peanut Allergy Unknown Verified 03/09/25 11:50 Penicillins Allergy Unknown Verified 03/09/25 11:50 Assessment & Plan Assessment & Plan (1) Psychosis: Status: Acute Code(s): F29 - Unspecified psychosis not due to a substance or known physiological condition Assessment and Plan: r/o autoimmune reasons for psychosis including lupus. (2) Pulmonary nodules: Status: Acute Code(s): R91.8 - Other nonspecific abnormal finding of lung field Assessment and Plan: Bloodwork Per specialty trimmer on 04/13/2025- repeat chest CT in 2 weeks after 4 week course of prednisone and reassess need for bronchoscopy. (3) Rheumatoid arthritis involving hand with positive rheumatoid factor: Status: Acute Code(s): M05.749 - Rheumatoid arthritis with rheumatoid factor of unspecified hand without organ or systems involvement Plan Mrs. Sharif is a 69 year-old woman who presents with a 3 month hx of new onset of psychosis (AH) and combination of paranoid delusions and cap gras delusions. No prior psychiatric hx. She does have of cocaine use but apparently had not used in some years. Daughter suspects she may have relapsed but no ongoing use. Pt presents with more complex theme of delusions. No additional medical work up available including head CT. CBC and cmp unremarkable. 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 It may be related to dementia process but complexity of delusions and psychosis not the common presentation for dementia that have psychosis early on such as in vascular dementia or LBD. Pt presents as gravely disable to able to care for self due to symptoms of psychosis and delusions. 02/03 increase night time risperidone 2mg po qhs increase cogetin at bedtime to 1mg po qhs. lower daily dose to 0.5mg po daily. continue cogentin 0.5mg po daily. clonazepam as prn olanzapine as prn for agitation 02/04 continue tx. 02/05 continue tx. 02/06 continue current dose of risperidone. NOTE THAT pt can't take doses higher than 3 mg/day of risperidone as higher doses had severe EPS. can use olanzapine as well per court order. 02/07/25: Patient has been agitated yelling loudly exist seeking, delusional thinking her daughter/son outside at the door to pick her up. PRNs given in the morning with mild effect. Patient became agitated, aggressive\, assaultive to 1 of the staff on the floor, yelling and hitting her face so grabbing her neck. Physical was started at 16:31 to 1634. Patient was given IM medication of Zyprexa 10 and Valium 10 with good effect. Tomorrow plan: Patient will be benefit from Valium 10 mg twice a day and Zyprexa 5 mg 3 times a day is added into her scheduled medication as current plan with risperidone is not effective. Patient also having a backup for risperidone if she refused. 02/08/25: Slept most of the morning and last night. In better behavior control. No aggressive behavior. She is quiet, self dialogue, and medication compliant. Due to receive restrain medication yesterday. I did not make any medication change. But the Valium and additional Zyprexa appears to be helpful. 02/09 will try to change keppra to depakote for seizures as keppra may exacerbate psychosis. increase risperidone 1mg po daily and 2mg po qhs. may need to add second antipsychotic. 02/10 continues to present as paranoid with AH. at times declines oral medications, requiring IM back per court order. 02/11 continue tx. 02/12 continue tx. 02/13 continue tx. 02/14: no changes today. Monitor for agitation around confusion about hospitalization 02/15: no changes today, self dialogue more overt/extensive today 02/16 add olanzapine 5mg po qhs. continue risperidone. minimal improvement if any. 02/17 continue tx. 02/18 seems more somnolent with bedtime olanzapine, will continue to monitor. 02/19 cbc showed thrombocytopenia, which is new and suspect related to depakote 02/20 pt appears more sedated since addition of olanzapine at bedtime. She continues to self dialogue. minimal improvement. 02/21: Continue current management and treatment plan. 02/22: continue current management and treatment plan. 02/23 continue tx. may need to affirm HCP try different antipsychotic. 02/24 continue tx. results of LENORE 1:360, pattern homogenous A. 02/25 will try rexulti, lower risperidone. pending coordination of medical care to see if underlying autoimmune condition has anything to do with current presentation. 02/26 discussed with hospital defense attorney to dismiss sect 8, HCP invoked and can consent to other treatment. daughter Maricruz give permission to try different antipsychotic. 02/27 decrease risperidone to 1mg po daily, start prolixin 2.5mg po qhs, then increase to BID. continue olanzapine prn for agitation. olanzapine as well per court order. 03/03 pt seen by neurology, added HIV/RPR/LYME, can't have MRI due to cochlear implant. 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 Last Neurology appointment 01/2024. Missed appointment with rheumatology 05/2024, last seen in 02/26/2024. - Pt can't have MRI due to cochlear implant. Had head CT. - continue prolixin 2.5mg po daily, 5mg po qhs. will d/c risperidone, increase prolixin 5mg po BID, back up IM. 03/05 continue tx. 03/06 This documentation writer spoke with pt's buyer, Dr. Al obtained collateral information. Will coordinate with neurology and rheumatology once LP results are available. r/o reoccurance of pachymeningitis, lupus or other autoimmune cause for psychosis. 03/07: Continue current regimen and plans. Discontinued one-to-one and put in place 5 minute checks 03/08: Continue current plans and regimen 03/09 continue tx. 03/10: continue current mgmt. continues disorganized and psychotic. see neuro note from today. continue with neuro w/u. 03/11: given zyprexa 5 and valium [address] and head CTA. head CTA WNL, chest CT showed numerous pulmonary nodules up to 10 mm in size. no change in presentation. due to persistent requests for discharge, 3-day notice submitted on her behalf. will work toward HCP affirmation by the court. 03/12: per pulm consult, chest CT more c/w rheumatological process than CA, recommended empiric steroid course. awaiting input from neuro. consider Bx of nodules otherwise. continue current mgmt for now. 03/13: variably calm and agitated. planning for bronchoscopy with pulmonary nodule Bx on sunday. continue current mgmt. case discussed with HCP Maricruz (daughter), who is in agreement with plan. 03/14: CSF with notable findings. will f/u with neuro on sunday. stable presentation for now, remains quite psychotic. continue current mgmt. bronchoscopy sunday. 03/15: no change from yesterday in presentation or plan. 03/16: stable presentation. continues confused, wanting to go home. HCP affirmation tomorrow. continue current mgmt. 03/17: stable presdentation. bronchoscopy pending. continue current mgmt. 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 awaiting bronchoscopy. remains psychotic. continue current mgmt for now. 03/20: no change in presentation. still awaiting go-ahead for brochoscopy. continue current mgmt. 03/22: No changes. Noted above. 03/23: awaiting insurance approval for bronchoscopy. stable presentation. 03/24: as for yesterday. 03/25: loudly RIS in milieu today. bronchoscopy scheduled for sunday at 1130. NPO past MN night. stable presentation. continue current mgmt. 03/26 pt presents as more disorganized and inattentive than usual showing more signs of delirious behavior. bronchoscopy was canceled,due to shortage of needles to complete biopsy. will order cbc, cmp, ammonia levels given increase disorganized behavior and worsening attention pointing at a more delirious presentation. * Review of results from LP showing negative results for meningitis panel/paraneoplastic panel (including most common antibody found in SLC which is EARL 1 which was negative), elevated protein in CSF 131 without leukocytosis, also elevated CSF/serum IgG index. elevated anti-ds dna titer 1:80. Such results may point more to a rheumatological condition than infectious condition or malignancy. Mrs. Sharif's OP buyer, Dr. Al recommends trial of prednisone 40mg po daily at least for 2 weeks. 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 03/31 increase prolixin to 5mg po BID. continue all other medications including prednisone 40mg po daily. 04/01 discussed with her OP buyer, Dr. Al possibility of transferring to [facility] for further tx of autoimmune condition, suspected also having lupus. continue prednisone. Spoke with daughter who is HCP, daughter concern about pt going to [facility] due to being dismissed several times when pt was first brought psychotic. 04/02 continue tx 04/03 increase prolixin to 5mg po TID. monitor EPS. 04/06 continue tx. 04/07- pending response from [facility] to see if they will take her for further evaluation of autoimmune condition with multidisciplinary team to continue see if psychosis related to autoimmune or primarily psychosis. Some improvement in attention, less guarded. continues to have auditory hallucinations. May consider switch to clozapine given that she has tried 3 antipsychotics with limited efficacy. 04/08 start clozapine 25mg po qhs. continue prolixin 7.5mg po TID. 04/09 increase clozapine to 50mg po qhs. continue prolixin 7.5mg po TID. 04/10 decrease prolixin to 7.5mg po BID. increase clozapine to 75mg po qhs. continue increasing clozapine by 25mg/day. specialty trimmer, recommends repeat CT in 2 weeks, and hold on bronchoscopy. 04/11: no change today, will titrate Clozapine further tomorrow 04/12: titrate Clozapine to 100 mg QHS 04/13 increase clozapine to 125mg po qhs. continue prolixin 7.5mg po BID. 04/14 Provided update to daughter Maricruz who is HCP in terms of pt being treated for both autoimmune condition that may be contributing to psychosis (with prednione) as well as primarily psychiatric disorder (although less likely) with clozapine. some improvement in attention, slightly less paranoid but continues to present with ongoing AH of her daughter. 04/15 continue tx. 04/16 continue tx. 04/17 start glycopyrralate for drooling, decrease cogentin. Reason for continued inpatient stay Substantial Risk for: inability to function Time Spent With Patient Time: Total time managing care of this patient today ____ minutes.
[2025-04-16 20:00] VITALS: BP 142/77; PULSE 87; RESP 18; TEMP 36; O2SAT 97
[2025-04-17 08:00] VITALS: BP 136/60; PULSE 86; RESP 18; TEMP 36.7; O2SAT 95
[2025-04-17] MEDS: Tiotropium Bromide 2.5 mcg 1 PUFF/2.5 MCG MIST.INHAL INHALE (08:24)
[2025-04-17] MEDS: Fluticasone/Vilanterol 200/25 BLST.W.DEV 1 PUFF INHALE (08:24)
[2025-04-17] MEDS: NIFEdipine ER 30 MG TAB.ER.24 PO (08:26)
--- NOTE | 2025-04-17 15:57 | HO.PSYCHPN ---
Subjective Subjective Date of Service: 04/17/25 Reason For Visit: Abnormal CT chest Interim History: Pt slept through the night. She continues to self dialogue and hears the voice of her daughter. She is less paranoid but continues to report that people are being rape/kill here on the unit. She is eating well. She reports some pain on fingers and knees. we complete a clock draw and she is able to do it in a more organized way. able to place all number and hands correctly 10 past 11. Review of Systems Review of Systems Denies any shortness of breath, chest pain, dizziness, lightheadedness, abdominal pain or discomfort, nausea vomiting or diarrhea Yes all other systems are reviewed and are negative, Unobtainable due to mental condition, Unobtainable due to mental status and Other (patient refused to answer ROS questions) Constitutional: Reports as per HPI Eyes: Reports as per HPI Reports as per HPI Cardiovascular: Reports as per HPI Respiratory: Reports as per HPI Gastrointestinal: Reports as per HPI Musculoskeletal: Reports as per HPI Skin/Breast: Reports as per HPI Reports as per HPI and Reports confusion Psychiatric: Reports as per HPI and Reports confusion Endocrine: Reports as per HPI Hematologic/Lymphatic: Reports as per HPI Allergic/Immunologic: Reports as per HPI Mental Status Exam Mental Status Exam Narrative: Appearance: casual attire, adequate grooming and hygiene Behavior: calm, keeping to self, engagement limited by vision and hearing difficulties Orientation: alert, confused Memory: impaired Psychomotor Function: no agitation or slowing; no abnormal gestures or movements Speech: loud Mood: ok Affect: calm, non-labile Thought Process: disorganized Thought Content: delusional regarding discharge plans Hallucinations: AH constantly talking to daughter who is not there. Delusions: paranoid delusions. Insight: impairment Judgment: impairment Impulsivity: none noted Diagnostics Vital Signs (24Hr): Vital Signs - 24 hr 04/16/25 20:00 04/17/25 08:00 Temperature 96.8 F 98.1 F Pulse Rate 87 86 Respiratory Rate 18 18 Blood Pressure 142/77 H 136/60 Pulse Oximetry 97 95 Oxygen Delivery Method Room Air Room Air BMI result Body Mass Index 31.2 Labs 03/29/25 08:55 03/29/25 08:55 Labs: Laboratory Results - last 48 hr 04/16/25 07:15 Absolute Neuts (auto) 4.9 Imaging Radiology Impressions: ITS Impressions Head CT 03/05/25 15:51 IMPRESSION: 1. No acute intracranial abnormality. 2. Right-sided cochlear nerve implant with associated streak artifact. 3. Right-sided canal wall up mastoidectomy. Electronically signed by: Levi Greer MD 03/05/2025 04:25 PM EDT RP Lumbar Puncture Fluoroscopy 03/09/25 11:50 IMPRESSION: Successful fluoroscopy-guided lumbar puncture performed without immediate complications Electronically signed by: Thompson Andujar MD 03/09/2025 04:06 PM EDT RP Chest CT 03/11/25 11:52 IMPRESSION: 1. Multiple bilateral pulmonary nodules measuring up to 10 mm in size. Further evaluation should be based on Fleischner Society guidelines below. 2. Cardiomegaly. Findings consistent with pulmonary arterial hypertension. 3. No evidence of mediastinal or hilar lymphadenopathy. Fleischner Criteria for pulmonary nodule follow-up SOLID NODULES: Low risk patient: <6mm: no follow-up 6-8mm: 6 month follow-up CT >8mm: PET/Biopsy/ 3 month follow-up CT High risk patient: <6mm: 12 month follow-up CT 6-8mm: 6 month follow-up CT >8mm: PET/Biopsy/ 3 month follow-up CT SUB-SOLID/GROUNDGLASS NODULES: All patients: > or = 6mm: 6 month follow-up CT *Please note that in patients in the following categories, the Fleischner criteria do not apply: Immunocompromised, lung cancer screening population, age below 35, and patients with known malignancy Electronically signed by: Best Clemons MD 03/11/2025 01:45 PM EDT RP Head CTA 03/11/25 11:52 IMPRESSION: Head CT: No acute intracranial abnormality. CT angiogram of the head: No vascular occlusions. Electronically signed by: Gypsy Salamanca MD 03/11/2025 03:02 PM EDT RP Medications Medications Current Medications Acetaminophen (Acetaminophen 325 Mg Tablet) 650 mg PO Q6H PRN PRN Reason: Headache/Pain, Scale 1-10 Last Admin: 04/17/25 09:47 Dose: 650 mg Al Hydroxide/Mg Hydroxide (Magnesium Hydrox/Alum Hydrox 30 Ml Oral.Susp) 30 ml PO Q6H PRN PRN Reason: Heartburn/Nausea Albuterol Sulfate (Albuterol Sulfate 90 Mcg 8 Gm Inhaler) 2 puff INHALE Q4H PRN PRN Reason: Shortness Of Breath Or Wheezing Atorvastatin Calcium (Atorvastatin Calcium 40 Mg Tablet) 40 mg PO DAILY [facility] Last Admin: 04/17/25 08:26 Dose: 40 mg Clonazepam (Clonazepam Odt 0.5 Mg Tab.Rapdis) 0.5 mg PO BID PRN PRN Reason: severe anxiety/sleep Last Admin: 03/31/25 20:37 Dose: 0.5 mg Clozapine 100 mg/ Clozapine 50 (mg) 150 mg PO BEDTIME [facility] Fluphenazine HCl (Fluphenazine Hcl 2.5 Mg/Ml 10 Ml Vial) 2.5 mg IM BID PRN PRN Reason: give if refuses oral per HCP Last Admin: 03/05/25 09:42 Dose: 2.5 mg Fluphenazine HCl (Fluphenazine Hcl 2.5 Mg Tablet) 2.5 mg PO BID [facility] Fluticasone/Vilanterol (Fluticasone/Vilanterol 200/25 Blst.W.Dev) 1 puff INHALE RDAILY [facility] Last Admin: 04/17/25 08:24 Dose: 1 puff Glycopyrrolate (Glycopyrrolate 1 Mg Tablet) 1 mg PO BID [facility] Guaifenesin (Guaifenesin 200 Mg/10 Ml 10 Ml Liquid) 10 ml PO Q6H PRN PRN Reason: Cough Hydrochlorothiazide (Hydrochlorothiazide 25 Mg Tablet) 25 mg PO DAILY [facility] Last Admin: 04/17/25 08:27 Dose: 25 mg Levetiracetam (Levetiracetam 250 Mg Tablet) 250 mg PO BID [facility] Last Admin: 04/17/25 08:25 Dose: 250 mg Magnesium Hydroxide (Milk Of Magnesia 30 Ml Oral.Susp) 30 ml PO DAILY PRN PRN Reason: Constipation Methimazole (Methimazole 5 Mg Tablet) 5 mg PO DAILY [facility] Last Admin: 04/17/25 08:25 Dose: 5 mg Naloxone HCl (Naloxone Hcl 0.4 Mg/Ml Vial) 0.04 mg IVPUSH Q5M PRN PRN Reason: Excessive sedation or RR < 8 Nifedipine (Nifedipine Er 30 Mg Tab.Er.24) 30 mg PO DAILY [facility]; Protocol Last Admin: 04/17/25 08:26 Dose: 30 mg Olanzapine (Olanzapine 10 Mg Tablet) 10 mg PO Q6H PRN PRN Reason: severe agitation Last Admin: 04/16/25 16:28 Dose: 10 mg Prednisone (Prednisone 20 Mg Tablet) 40 mg PO DAILY [facility] Last Admin: 04/17/25 08:26 Dose: 40 mg Tiotropium [place] (Tiotropium [place] 2.5 Mcg 1 Puff/2.5 Mcg Mist.Inhal) 1 puff INHALE RDAILY [facility] Last Admin: 04/17/25 08:24 Dose: 1 puff Trazodone HCl (Trazodone Hcl 50 Mg Tablet) 50 mg PO BEDTIME MRX1 PRN PRN Reason: Insomnia Last Admin: 04/04/25 23:21 Dose: 50 mg Allergies Allergies Allergy/AdvReac Type Severity Reaction Status Date / Time latex Allergy Unknown Verified 03/09/25 11:50 peanut Allergy Unknown Verified 03/09/25 11:50 Penicillins Allergy Unknown Verified 03/09/25 11:50 Assessment & Plan Assessment & Plan (1) Psychosis: Status: Acute Code(s): F29 - Unspecified psychosis not due to a substance or known physiological condition Assessment and Plan: r/o autoimmune reasons for psychosis including lupus. (2) Pulmonary nodules: Status: Acute Code(s): R91.8 - Other nonspecific abnormal finding of lung field Assessment and Plan: Bloodwork Per pillow filler on 04/13/2025- repeat chest CT in 2 weeks after 4 week course of prednisone and reassess need for bronchoscopy. (3) Rheumatoid arthritis involving hand with positive rheumatoid factor: Status: Acute Code(s): M05.749 - Rheumatoid arthritis with rheumatoid factor of unspecified hand without organ or systems involvement Plan Mrs. Sharif is a 69 year-old woman who presents with a 3 month hx of new onset of psychosis (AH) and combination of paranoid delusions and cap gras delusions. No prior psychiatric hx. She does have of cocaine use but apparently had not used in some years. Daughter suspects she may have relapsed but no ongoing use. Pt presents with more complex theme of delusions. No additional medical work up available including head CT. CBC and cmp unremarkable. 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 It may be related to dementia process but complexity of delusions and psychosis not the common presentation for dementia that have psychosis early on such as in vascular dementia or LBD. Pt presents as gravely disable to able to care for self due to symptoms of psychosis and delusions. 02/03 increase night time risperidone 2mg po qhs increase cogetin at bedtime to 1mg po qhs. lower daily dose to 0.5mg po daily. continue cogentin 0.5mg po daily. clonazepam as prn olanzapine as prn for agitation 02/04 continue tx. 02/05 continue tx. 02/06 continue current dose of risperidone. NOTE THAT pt can't take doses higher than 3 mg/day of risperidone as higher doses had severe EPS. can use olanzapine as well per court order. 02/07/25: Patient has been agitated yelling loudly exist seeking, delusional thinking her daughter/son outside at the door to pick her up. PRNs given in the morning with mild effect. Patient became agitated, aggressive\, assaultive to 1 of the staff on the floor, yelling and hitting her face so grabbing her neck. Physical was started at 16:31 to 1634. Patient was given IM medication of Zyprexa 10 and Valium 10 with good effect. Tomorrow plan: Patient will be benefit from Valium 10 mg twice a day and Zyprexa 5 mg 3 times a day is added into her scheduled medication as current plan with risperidone is not effective. Patient also having a backup for risperidone if she refused. 02/08/25: Slept most of the morning and last night. In better behavior control. No aggressive behavior. She is quiet, self dialogue, and medication compliant. Due to receive restrain medication yesterday. I did not make any medication change. But the Valium and additional Zyprexa appears to be helpful. 02/09 will try to change keppra to depakote for seizures as keppra may exacerbate psychosis. increase risperidone 1mg po daily and 2mg po qhs. may need to add second antipsychotic. 02/10 continues to present as paranoid with AH. at times declines oral medications, requiring IM back per court order. 02/11 continue tx. 02/12 continue tx. 02/13 continue tx. 02/14: no changes today. Monitor for agitation around confusion about hospitalization 02/15: no changes today, self dialogue more overt/extensive today 02/16 add olanzapine 5mg po qhs. continue risperidone. minimal improvement if any. 02/17 continue tx. 02/18 seems more somnolent with bedtime olanzapine, will continue to monitor. 02/19 cbc showed thrombocytopenia, which is new and suspect related to depakote 02/20 pt appears more sedated since addition of olanzapine at bedtime. She continues to self dialogue. minimal improvement. 02/21: Continue current management and treatment plan. 02/22: continue current management and treatment plan. 02/23 continue tx. may need to affirm HCP try different antipsychotic. 02/24 continue tx. results of LENORE 1:360, pattern homogenous A. 02/25 will try rexulti, lower risperidone. pending coordination of medical care to see if underlying autoimmune condition has anything to do with current presentation. 02/26 discussed with hospital [employer] attorney to dismiss sect 8, HCP invoked and can consent to other treatment. daughter Maricruz give permission to try different antipsychotic. 02/27 decrease risperidone to 1mg po daily, start prolixin 2.5mg po qhs, then increase to BID. continue olanzapine prn for agitation. olanzapine as well per court order. 03/03 pt seen by neurology, added HIV/RPR/LYME, can't have MRI due to cochlear implant. 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 Last Neurology appointment 01/2024. Missed appointment with rheumatology 05/2024, last seen in 02/26/2024. - Pt can't have MRI due to cochlear implant. Had head CT. - continue prolixin 2.5mg po daily, 5mg po qhs. will d/c risperidone, increase prolixin 5mg po BID, back up IM. 03/05 continue tx. 03/06 This data analyst report writer spoke with pt's baseball player, Dr. Al obtained collateral information. Will coordinate with neurology and rheumatology once LP results are available. r/o reoccurance of pachymeningitis, lupus or other autoimmune cause for psychosis. 03/07: Continue current regimen and plans. Discontinued one-to-one and put in place 5 minute checks 03/08: Continue current plans and regimen 03/09 continue tx. 03/10: continue current mgmt. continues disorganized and psychotic. see neuro note from today. continue with neuro w/u. 03/11: given zyprexa 5 and valium [address] and head CTA. head CTA WNL, chest CT showed numerous pulmonary nodules up to 10 mm in size. no change in presentation. due to persistent requests for discharge, 3-day notice submitted on her behalf. will work toward HCP affirmation by the court. 03/12: per pulm consult, chest CT more c/w rheumatological process than CA, recommended empiric steroid course. awaiting input from neuro. consider Bx of nodules otherwise. continue current mgmt for now. 03/13: variably calm and agitated. planning for bronchoscopy with pulmonary nodule Bx on sunday. continue current mgmt. case discussed with HCP Maricruz (daughter), who is in agreement with plan. 03/14: CSF with notable findings. will f/u with neuro on sunday. stable presentation for now, remains quite psychotic. continue current mgmt. bronchoscopy sunday. 03/15: no change from yesterday in presentation or plan. 03/16: stable presentation. continues confused, wanting to go home. HCP affirmation tomorrow. continue current mgmt. 03/17: stable presdentation. bronchoscopy pending. continue current mgmt. 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 awaiting bronchoscopy. remains psychotic. continue current mgmt for now. 03/20: no change in presentation. still awaiting go-ahead for brochoscopy. continue current mgmt. 03/22: No changes. Noted above. 03/23: awaiting insurance approval for bronchoscopy. stable presentation. 03/24: as for yesterday. 03/25: loudly RIS in milieu today. bronchoscopy scheduled for sunday at 1130. NPO past MN night. stable presentation. continue current mgmt. 03/26 pt presents as more disorganized and inattentive than usual showing more signs of delirious behavior. bronchoscopy was canceled,due to shortage of needles to complete biopsy. will order cbc, cmp, ammonia levels given increase disorganized behavior and worsening attention pointing at a more delirious presentation. Review of results from LP showing negative results for meningitis panel/paraneoplastic panel (including most common antibody found in [facility] which is EARL 1 which was negative), elevated protein in CSF 131 without leukocytosis, also elevated CSF/serum IgG index. elevated anti-ds dna titer 1:80. Such results may point more to a rheumatological condition than infectious condition or malignancy. Mrs. Sharif's OP baseball player, Dr. Al recommends trial of prednisone 40mg po daily at least for 2 weeks. 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 03/31 increase prolixin to 5mg po BID. continue all other medications including prednisone 40mg po daily. 04/01 discussed with her OP baseball player, Dr. Al possibility of transferring to [facility] for further tx of autoimmune condition, suspected also having lupus. continue prednisone. Spoke with daughter who is HCP, daughter concern about pt going to [facility] due to being dismissed several times when pt was first brought psychotic. 04/02 continue tx 04/03 increase prolixin to 5mg po TID. monitor EPS. 04/06 continue tx. 04/07- pending response from [facility] to see if they will take her for further evaluation of autoimmune condition with multidisciplinary team to continue see if psychosis related to autoimmune or primarily psychosis. Some improvement in attention, less guarded. continues to have auditory hallucinations. May consider switch to clozapine given that she has tried 3 antipsychotics with limited efficacy. 04/08 start clozapine 25mg po qhs. continue prolixin 7.5mg po TID. 04/09 increase clozapine to 50mg po qhs. continue prolixin 7.5mg po TID. 04/10 decrease prolixin to 7.5mg po BID. increase clozapine to 75mg po qhs. continue increasing clozapine by 25mg/day. pillow filler, recommends repeat CT in 2 weeks, and hold on bronchoscopy. 04/11: no change today, will titrate Clozapine further tomorrow 04/12: titrate Clozapine to 100 mg QHS 04/13 increase clozapine to 125mg po qhs. continue prolixin 7.5mg po BID. 04/14 Provided update to daughter Maricruz who is HCP in terms of pt being treated for both autoimmune condition that may be contributing to psychosis (with prednione) as well as primarily psychiatric disorder (although less likely) with clozapine. some improvement in attention, slightly less paranoid but continues to present with ongoing AH of her daughter. 04/15 continue tx. 04/16 continue tx. 04/17 start glycopyrralate for drooling, decrease cogentin. 04/18 increase clozapine 150mg po qhs, lower prolixin 2.5mg po BID. back up. Reason for continued inpatient stay Substantial Risk for: inability to function Time Spent With Patient Time: Total time managing care of this patient today ____ minutes.
[2025-04-17 20:00] VITALS: BP 150/76; PULSE 71; RESP 16; TEMP 36.4; O2SAT 96
[2025-04-18 08:00] VITALS: BP 126/64; PULSE 65; RESP 16; TEMP 36.5; O2SAT 97
[2025-04-18] MEDS: Tiotropium Bromide 2.5 mcg 1 PUFF/2.5 MCG MIST.INHAL INHALE (08:36)
[2025-04-18] MEDS: Fluticasone/Vilanterol 200/25 BLST.W.DEV 1 PUFF INHALE (08:36)
[2025-04-18 08:37] VITALS: BP 126/64
[2025-04-18] MEDS: NIFEdipine ER 30 MG TAB.ER.24 PO (08:37)
[2025-04-18 08:38] VITALS: BP 126/64
--- NOTE | 2025-04-18 10:16 | P.PNPSI_ITS ---
Subjective Subjective Date of Service: 04/18/25 Reason For Visit: Abnormal CT chest Interim History: Pt slept through the night. Patient remains grossly psychotic and delusional. Observed on the unit talking loudly and as if conversing on a phone. Per primary team some improvement from presentation. No SI/HI. Review of Systems Review of Systems Denies any shortness of breath, chest pain, dizziness, lightheadedness, abdominal pain or discomfort, nausea vomiting or diarrhea Yes all other systems are reviewed and are negative, Unobtainable due to mental condition, Unobtainable due to mental status and Other (patient refused to answer ROS questions) Constitutional: Reports as per HPI Eyes: Reports as per HPI Reports as per HPI Cardiovascular: Reports as per HPI Respiratory: Reports as per HPI Gastrointestinal: Reports as per HPI Musculoskeletal: Reports as per HPI Skin/Breast: Reports as per HPI Reports as per HPI and Reports confusion Psychiatric: Reports as per HPI and Reports confusion Endocrine: Reports as per HPI Hematologic/Lymphatic: Reports as per HPI Allergic/Immunologic: Reports as per HPI Mental Status Exam Mental Status Exam Narrative: Appearance: casual attire, adequate grooming and hygiene Behavior: calm, keeping to self, engagement limited by vision and hearing difficulties Orientation: alert, confused Memory: impaired Psychomotor Function: no agitation or slowing; no abnormal gestures or movements Speech: loud Mood: ok Affect: calm, non-labile Thought Process: disorganized Thought Content: delusional regarding discharge plans Hallucinations: AH constantly talking to daughter who is not there. Delusions: paranoid delusions. Insight: impairment Judgment: impairment Impulsivity: none noted Patient Appearance: Appropriate and Unkempt Patient Orientation: Person and Situation Level of Consciousness: Awake and Restless Patient Behavior: Talkative and Poor Eye Contact Mood Description: Labile Affect Description: Labile Patient Cognition Impaired: No Ability to Follow Directions: Poor Speech Pattern: Rambling and Poor Articulation Memory Description: Remote Impaired Diagnostics Vital Signs (24Hr): Vital Signs - 24 hr 04/17/25 20:00 04/18/25 08:00 04/18/25 08:37 Temperature 97.5 F 97.7 F Pulse Rate 71 65 Respiratory Rate 16 16 Blood Pressure 150/76 H 126/64 126/64 Pulse Oximetry 96 97 Oxygen Delivery Method Room Air Room Air 04/18/25 08:38 Temperature Pulse Rate Respiratory Rate Blood Pressure 126/64 Pulse Oximetry Oxygen Delivery Method BMI result Body Mass Index 31.2 Labs 03/29/25 08:55 03/29/25 08:55 Imaging Radiology Impressions: ITS Impressions Head CT 03/05/25 15:51 IMPRESSION: 1. No acute intracranial abnormality. 2. Right-sided cochlear nerve implant with associated streak artifact. 3. Right-sided canal wall up mastoidectomy. Electronically signed by: Levi Greer MD 03/05/2025 04:25 PM EDT RP Lumbar Puncture Fluoroscopy 03/09/25 11:50 IMPRESSION: Successful fluoroscopy-guided lumbar puncture performed without immediate complications Electronically signed by: Thompson Andujar MD 03/09/2025 04:06 PM EDT RP Chest CT 03/11/25 11:52 IMPRESSION: 1. Multiple bilateral pulmonary nodules measuring up to 10 mm in size. Further evaluation should be based on Fleischner Society guidelines below. 2. Cardiomegaly. Findings consistent with pulmonary arterial hypertension. 3. No evidence of mediastinal or hilar lymphadenopathy. Fleischner Criteria for pulmonary nodule follow-up SOLID NODULES: Low risk patient: <6mm: no follow-up 6-8mm: 6 month follow-up CT >8mm: PET/Biopsy/ 3 month follow-up CT High risk patient: <6mm: 12 month follow-up CT 6-8mm: 6 month follow-up CT >8mm: PET/Biopsy/ 3 month follow-up CT SUB-SOLID/GROUNDGLASS NODULES: All patients: > or = 6mm: 6 month follow-up CT *Please note that in patients in the following categories, the Fleischner criteria do not apply: Immunocompromised, lung cancer screening population, age below 35, and patients with known malignancy Electronically signed by: Best Clemons MD 03/11/2025 01:45 PM EDT RP Head CTA 03/11/25 11:52 IMPRESSION: Head CT: No acute intracranial abnormality. CT angiogram of the head: No vascular occlusions. Electronically signed by: Gypsy Salamanca MD 03/11/2025 03:02 PM EDT RP Medications Medications Current Medications Acetaminophen (Acetaminophen 325 Mg Tablet) 650 mg PO Q6H PRN PRN Reason: Headache/Pain, Scale 1-10 Last Admin: 04/17/25 09:47 Dose: 650 mg Al Hydroxide/Mg Hydroxide (Magnesium Hydrox/Alum Hydrox 30 Ml Oral.Susp) 30 ml PO Q6H PRN PRN Reason: Heartburn/Nausea Albuterol Sulfate (Albuterol Sulfate 90 Mcg 8 Gm Inhaler) 2 puff INHALE Q4H PRN PRN Reason: Shortness Of Breath Or Wheezing Atorvastatin Calcium (Atorvastatin Calcium 40 Mg Tablet) 40 mg PO DAILY [facility] Last Admin: 04/18/25 08:38 Dose: 40 mg Clonazepam (Clonazepam Odt 0.5 Mg Tab.Rapdis) 0.5 mg PO BID PRN PRN Reason: severe anxiety/sleep Last Admin: 03/31/25 20:37 Dose: 0.5 mg Clozapine 100 mg/ Clozapine 50 (mg) 150 mg PO BEDTIME [facility] Last Admin: 04/17/25 20:30 Dose: 150 mg Fluphenazine HCl (Fluphenazine Hcl 2.5 Mg/Ml 10 Ml Vial) 2.5 mg IM BID PRN PRN Reason: give if refuses oral per HCP Last Admin: 03/05/25 09:42 Dose: 2.5 mg Fluphenazine HCl (Fluphenazine Hcl 2.5 Mg Tablet) 2.5 mg PO BID [facility] Last Admin: 04/18/25 08:38 Dose: 2.5 mg Fluticasone/Vilanterol (Fluticasone/Vilanterol 200/25 Blst.W.Dev) 1 puff INHALE RDAILY [facility] Last Admin: 04/18/25 08:36 Dose: 1 puff Glycopyrrolate (Glycopyrrolate 1 Mg Tablet) 1 mg PO BID [facility] Last Admin: 04/18/25 08:38 Dose: 1 mg Guaifenesin (Guaifenesin 200 Mg/10 Ml 10 Ml Liquid) 10 ml PO Q6H PRN PRN Reason: Cough Hydrochlorothiazide (Hydrochlorothiazide 25 Mg Tablet) 25 mg PO DAILY [facility] Last Admin: 04/18/25 08:38 Dose: 25 mg Levetiracetam (Levetiracetam 250 Mg Tablet) 250 mg PO BID [facility] Last Admin: 04/18/25 08:37 Dose: 250 mg Magnesium Hydroxide (Milk Of Magnesia 30 Ml Oral.Susp) 30 ml PO DAILY PRN PRN Reason: Constipation Methimazole (Methimazole 5 Mg Tablet) 5 mg PO DAILY [facility] Last Admin: 04/18/25 08:37 Dose: 5 mg Naloxone HCl (Naloxone Hcl 0.4 Mg/Ml Vial) 0.04 mg IVPUSH Q5M PRN PRN Reason: Excessive sedation or RR < 8 Nifedipine (Nifedipine Er 30 Mg Tab.Er.24) 30 mg PO DAILY [facility]; Protocol Last Admin: 04/18/25 08:37 Dose: 30 mg Olanzapine (Olanzapine 10 Mg Tablet) 10 mg PO Q6H PRN PRN Reason: severe agitation Last Admin: 04/16/25 16:28 Dose: 10 mg Prednisone (Prednisone 20 Mg Tablet) 40 mg PO DAILY [facility] Last Admin: 04/18/25 08:38 Dose: 40 mg Tiotropium [place] (Tiotropium [place] 2.5 Mcg 1 Puff/2.5 Mcg Mist.Inhal) 1 puff INHALE RDAILY [facility] Last Admin: 04/18/25 08:36 Dose: 1 puff Trazodone HCl (Trazodone Hcl 50 Mg Tablet) 50 mg PO BEDTIME MRX1 PRN PRN Reason: Insomnia Last Admin: 04/04/25 23:21 Dose: 50 mg Allergies Allergies Allergy/AdvReac Type Severity Reaction Status Date / Time latex Allergy Unknown Verified 03/09/25 11:50 peanut Allergy Unknown Verified 03/09/25 11:50 Penicillins Allergy Unknown Verified 03/09/25 11:50 Assessment & Plan Assessment & Plan (1) Psychosis: Status: Acute Code(s): F29 - Unspecified psychosis not due to a substance or known physiological condition Assessment and Plan: r/o autoimmune reasons for psychosis including lupus. (2) Pulmonary nodules: Status: Acute Code(s): R91.8 - Other nonspecific abnormal finding of lung field Assessment and Plan: Bloodwork Per diesel engine pipe fitter on 04/13/2025- repeat chest CT in 2 weeks after 4 week course of prednisone and reassess need for bronchoscopy. (3) Rheumatoid arthritis involving hand with positive rheumatoid factor: Status: Acute Code(s): M05.749 - Rheumatoid arthritis with rheumatoid factor of unspecified hand without organ or systems involvement Plan Mrs. Sharif is a 69 year-old woman who presents with a 3 month hx of new onset of psychosis (AH) and combination of paranoid delusions and cap gras delusions. No prior psychiatric hx. She does have of cocaine use but apparently had not used in some years. Daughter suspects she may have relapsed but no ongoing use. Pt presents with more complex theme of delusions. No additional medical work up available including head CT. CBC and cmp unremarkable. 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 It may be related to dementia process but complexity of delusions and psychosis not the common presentation for dementia that have psychosis early on such as in vascular dementia or LBD. Pt presents as gravely disable to able to care for self due to symptoms of psychosis and delusions. 02/03 increase night time risperidone 2mg po qhs increase cogetin at bedtime to 1mg po qhs. lower daily dose to 0.5mg po daily. continue cogentin 0.5mg po daily. clonazepam as prn olanzapine as prn for agitation 02/04 continue tx. 02/05 continue tx. 02/06 continue current dose of risperidone. NOTE THAT pt can't take doses higher than 3 mg/day of risperidone as higher doses had severe EPS. can use olanzapine as well per court order. 02/07/25: Patient has been agitated yelling loudly exist seeking, delusional thinking her daughter/son outside at the door to pick her up. PRNs given in the morning with mild effect. Patient became agitated, aggressive\, assaultive to 1 of the staff on the floor, yelling and hitting her face so grabbing her neck. Physical was started at 16:31 to 1634. Patient was given IM medication of Zyprexa 10 and Valium 10 with good effect. Tomorrow plan: Patient will be benefit from Valium 10 mg twice a day and Zyprexa 5 mg 3 times a day is added into her scheduled medication as current plan with risperidone is not effective. Patient also having a backup for risperidone if she refused. 02/08/25: Slept most of the morning and last night. In better behavior control. No aggressive behavior. She is quiet, self dialogue, and medication compliant. Due to receive restrain medication yesterday. I did not make any medication change. But the Valium and additional Zyprexa appears to be helpful. 02/09 will try to change keppra to depakote for seizures as keppra may exacerbate psychosis. increase risperidone 1mg po daily and 2mg po qhs. may need to add second antipsychotic. 02/10 continues to present as paranoid with AH. at times declines oral medications, requiring IM back per court order. 02/11 continue tx. 02/12 continue tx. 02/13 continue tx. 02/14: no changes today. Monitor for agitation around confusion about hospitalization 02/15: no changes today, self dialogue more overt/extensive today 02/16 add olanzapine 5mg po qhs. continue risperidone. minimal improvement if any. 02/17 continue tx. 02/18 seems more somnolent with bedtime olanzapine, will continue to monitor. 02/19 cbc showed thrombocytopenia, which is new and suspect related to depakote 02/20 pt appears more sedated since addition of olanzapine at bedtime. She continues to self dialogue. minimal improvement. 02/21: Continue current management and treatment plan. 02/22: continue current management and treatment plan. 02/23 continue tx. may need to affirm HCP try different antipsychotic. 02/24 continue tx. results of LENORE 1:360, pattern homogenous A. 02/25 will try rexulti, lower risperidone. pending coordination of medical care to see if underlying autoimmune condition has anything to do with current presentation. 02/26 discussed with hospital bankruptcy attorney to dismiss sect 8, HCP invoked and can consent to other treatment. daughter Maricruz give permission to try different antipsychotic. 02/27 decrease risperidone to 1mg po daily, start prolixin 2.5mg po qhs, then increase to BID. continue olanzapine prn for agitation. olanzapine as well per court order. 03/03 pt seen by neurology, added HIV/RPR/LYME, can't have MRI due to cochlear implant. 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 Last Neurology appointment 01/2024. Missed appointment with rheumatology 05/2024, last seen in 02/26/2024. - Pt can't have MRI due to cochlear implant. Had head CT. - continue prolixin 2.5mg po daily, 5mg po qhs. will d/c risperidone, increase prolixin 5mg po BID, back up IM. 03/05 continue tx. 03/06 This policy writer typist spoke with pt's visually impaired teacher, Dr. Al obtained collateral information. Will coordinate with neurology and rheumatology once LP results are available. r/o reoccurance of pachymeningitis, lupus or other autoimmune cause for psychosis. 03/07: Continue current regimen and plans. Discontinued one-to-one and put in place 5 minute checks 03/08: Continue current plans and regimen 03/09 continue tx. 03/10: continue current mgmt. continues disorganized and psychotic. see neuro note from today. continue with neuro w/u. 03/11: given zyprexa 5 and valium [address] and head CTA. head CTA WNL, chest CT showed numerous pulmonary nodules up to 10 mm in size. no change in presentation. due to persistent requests for discharge, 3-day notice submitted on her behalf. will work toward HCP affirmation by the court. 03/12: per pulm consult, chest CT more c/w rheumatological process than CA, recommended empiric steroid course. awaiting input from neuro. consider Bx of nodules otherwise. continue current mgmt for now. 03/13: variably calm and agitated. planning for bronchoscopy with pulmonary nodule Bx on sunday. continue current mgmt. case discussed with HCP Maricruz (daughter), who is in agreement with plan. 03/14: CSF with notable findings. will f/u with neuro on sunday. stable presentation for now, remains quite psychotic. continue current mgmt. bronchoscopy sunday. 03/15: no change from yesterday in presentation or plan. 03/16: stable presentation. continues confused, wanting to go home. HCP affirmation tomorrow. continue current mgmt. 03/17: stable presdentation. bronchoscopy pending. continue current mgmt. 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 awaiting bronchoscopy. remains psychotic. continue current mgmt for now. 03/20: no change in presentation. still awaiting go-ahead for brochoscopy. continue current mgmt. 03/22: No changes. Noted above. 03/23: awaiting insurance approval for bronchoscopy. stable presentation. 03/24: as for yesterday. 03/25: loudly RIS in milieu today. bronchoscopy scheduled for sunday at 1130. NPO past MN night. stable presentation. continue current mgmt. 03/26 pt presents as more disorganized and inattentive than usual showing more signs of delirious behavior. bronchoscopy was canceled,due to shortage of needles to complete biopsy. will order cbc, cmp, ammonia levels given increase disorganized behavior and worsening attention pointing at a more delirious presentation. * Review of results from LP showing negative results for meningitis panel/paraneoplastic panel (including most common antibody found in SLC which is EARL 1 which was negative), elevated protein in CSF 131 without leukocytosis, also elevated CSF/serum IgG index. elevated anti-ds dna titer 1:80. Such results may point more to a rheumatological condition than infectious condition or malignancy. Mrs. Sharif's OP visually impaired teacher, Dr. Al recommends trial of prednisone 40mg po daily at least for 2 weeks. 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 03/31 increase prolixin to 5mg po BID. continue all other medications including prednisone 40mg po daily. 04/01 discussed with her OP visually impaired teacher, Dr. Al possibility of transferring to [facility] for further tx of autoimmune condition, suspected also having lupus. continue prednisone. Spoke with daughter who is HCP, daughter concern about pt going to [facility] due to being dismissed several times when pt was first brought psychotic. 04/02 continue tx 04/03 increase prolixin to 5mg po TID. monitor EPS. 04/06 continue tx. 04/07- pending response from [facility] to see if they will take her for further evaluation of autoimmune condition with multidisciplinary team to continue see if psychosis related to autoimmune or primarily psychosis. Some improvement in attention, less guarded. continues to have auditory hallucinations. May consider switch to clozapine given that she has tried 3 antipsychotics with limited efficacy. 04/08 start clozapine 25mg po qhs. continue prolixin 7.5mg po TID. 04/09 increase clozapine to 50mg po qhs. continue prolixin 7.5mg po TID. 04/10 decrease prolixin to 7.5mg po BID. increase clozapine to 75mg po qhs. continue increasing clozapine by 25mg/day. diesel engine pipe fitter, recommends repeat CT in 2 weeks, and hold on bronchoscopy. 04/11: no change today, will titrate Clozapine further tomorrow 04/12: titrate Clozapine to 100 mg QHS 04/13 increase clozapine to 125mg po qhs. continue prolixin 7.5mg po BID. 04/14 Provided update to daughter Maricruz who is HCP in terms of pt being treated for both autoimmune condition that may be contributing to psychosis (with prednione) as well as primarily psychiatric disorder (although less likely) with clozapine. some improvement in attention, slightly less paranoid but continues to present with ongoing AH of her daughter. 04/15 continue tx. 04/16 continue tx. 04/17 start glycopyrralate for drooling, decrease cogentin. 04/18 increase clozapine 150mg po qhs, lower prolixin 2.5mg po BID. back up. 04/19: Continue current management and treatment plan. Reason for continued inpatient stay Substantial Risk for: inability to function and rapid decompensation Time Spent With Patient Time: Total time managing care of this patient today ____ minutes.
[2025-04-18 20:23] VITALS: BP 151/72; PULSE 74; RESP 16; TEMP 35.7; O2SAT 95
[2025-04-19 07:55] VITALS: BP 165/78; PULSE 63; RESP 18; TEMP 36.6; O2SAT 97
[2025-04-19] MEDS: Fluticasone/Vilanterol 200/25 BLST.W.DEV 1 PUFF INHALE (08:18)
[2025-04-19] MEDS: Tiotropium Bromide 2.5 mcg 1 PUFF/2.5 MCG MIST.INHAL INHALE (08:19)
[2025-04-19 08:25] VITALS: BP 165/78
[2025-04-19 08:27] VITALS: BP 165/78
[2025-04-19] MEDS: NIFEdipine ER 30 MG TAB.ER.24 PO (08:27)
--- NOTE | 2025-04-19 15:44 | HO.PSYCHPN ---
Subjective Subjective Date of Service: 04/19/25 Reason For Visit: Abnormal CT chest Interim History: Pt slept through the night. Patient remains grossly psychotic and delusional. Observed on the unit talking as if conversing on a phone. Per primary team some improvement from initial presentation. No SI/HI. Review of Systems Review of Systems Denies any shortness of breath, chest pain, dizziness, lightheadedness, abdominal pain or discomfort, nausea vomiting or diarrhea Yes all other systems are reviewed and are negative, Unobtainable due to mental condition, Unobtainable due to mental status and Other (patient refused to answer ROS questions) Constitutional: Reports as per HPI Eyes: Reports as per HPI Reports as per HPI Cardiovascular: Reports as per HPI Respiratory: Reports as per HPI Gastrointestinal: Reports as per HPI Musculoskeletal: Reports as per HPI Skin/Breast: Reports as per HPI Reports as per HPI and Reports confusion Psychiatric: Reports as per HPI and Reports confusion Endocrine: Reports as per HPI Hematologic/Lymphatic: Reports as per HPI Allergic/Immunologic: Reports as per HPI Mental Status Exam Mental Status Exam Narrative: Appearance: casual attire, adequate grooming and hygiene Behavior: calm, keeping to self, engagement limited by vision and hearing difficulties Orientation: alert, confused Memory: impaired Psychomotor Function: no agitation or slowing; no abnormal gestures or movements Speech: loud Mood: ok Affect: calm, non-labile Thought Process: disorganized Thought Content: delusional regarding discharge plans Hallucinations: AH constantly talking to daughter who is not there. Delusions: paranoid delusions. Insight: impairment Judgment: impairment Impulsivity: none noted Patient Appearance: Appropriate and Unkempt Patient Orientation: Person and Situation Level of Consciousness: Awake and Restless Patient Behavior: Talkative and Poor Eye Contact Mood Description: Labile Affect Description: Labile Patient Cognition Impaired: No Ability to Follow Directions: Poor Speech Pattern: Rambling and Poor Articulation Memory Description: Remote Impaired Diagnostics Vital Signs (24Hr): Vital Signs - 24 hr 04/18/25 20:23 04/19/25 07:55 04/19/25 08:25 Temperature 96.3 F L 97.9 F Pulse Rate 74 63 Respiratory Rate 16 18 Blood Pressure 151/72 H 165/78 H 165/78 H Pulse Oximetry 95 97 Oxygen Delivery Method Room Air Room Air 04/19/25 08:27 Temperature Pulse Rate Respiratory Rate Blood Pressure 165/78 H Pulse Oximetry Oxygen Delivery Method BMI result Body Mass Index 31.2 Labs 03/29/25 08:55 03/29/25 08:55 Imaging Radiology Impressions: ITS Impressions Head CT 03/05/25 15:51 IMPRESSION: 1. No acute intracranial abnormality. 2. Right-sided cochlear nerve implant with associated streak artifact. 3. Right-sided canal wall up mastoidectomy. Electronically signed by: Levi Greer MD 03/05/2025 04:25 PM EDT RP Lumbar Puncture Fluoroscopy 03/09/25 11:50 IMPRESSION: Successful fluoroscopy-guided lumbar puncture performed without immediate complications Electronically signed by: Thompson Andujar MD 03/09/2025 04:06 PM EDT RP Chest CT 03/11/25 11:52 IMPRESSION: 1. Multiple bilateral pulmonary nodules measuring up to 10 mm in size. Further evaluation should be based on Fleischner Society guidelines below. 2. Cardiomegaly. Findings consistent with pulmonary arterial hypertension. 3. No evidence of mediastinal or hilar lymphadenopathy. Fleischner Criteria for pulmonary nodule follow-up SOLID NODULES: Low risk patient: <6mm: no follow-up 6-8mm: 6 month follow-up CT >8mm: PET/Biopsy/ 3 month follow-up CT High risk patient: <6mm: 12 month follow-up CT 6-8mm: 6 month follow-up CT >8mm: PET/Biopsy/ 3 month follow-up CT SUB-SOLID/GROUNDGLASS NODULES: All patients: > or = 6mm: 6 month follow-up CT *Please note that in patients in the following categories, the Fleischner criteria do not apply: Immunocompromised, lung cancer screening population, age below 35, and patients with known malignancy Electronically signed by: Best Clemons MD 03/11/2025 01:45 PM EDT RP Head CTA 03/11/25 11:52 IMPRESSION: Head CT: No acute intracranial abnormality. CT angiogram of the head: No vascular occlusions. Electronically signed by: Gypsy Salamanca MD 03/11/2025 03:02 PM EDT RP Medications Medications Current Medications Acetaminophen (Acetaminophen 325 Mg Tablet) 650 mg PO Q6H PRN PRN Reason: Headache/Pain, Scale 1-10 Last Admin: 04/17/25 09:47 Dose: 650 mg Al Hydroxide/Mg Hydroxide (Magnesium Hydrox/Alum Hydrox 30 Ml Oral.Susp) 30 ml PO Q6H PRN PRN Reason: Heartburn/Nausea Albuterol Sulfate (Albuterol Sulfate 90 Mcg 8 Gm Inhaler) 2 puff INHALE Q4H PRN PRN Reason: Shortness Of Breath Or Wheezing Atorvastatin Calcium (Atorvastatin Calcium 40 Mg Tablet) 40 mg PO DAILY [facility] Last Admin: 04/19/25 08:22 Dose: 40 mg Clonazepam (Clonazepam Odt 0.5 Mg Tab.Rapdis) 0.5 mg PO BID PRN PRN Reason: severe anxiety/sleep Last Admin: 03/31/25 20:37 Dose: 0.5 mg Clozapine 100 mg/ Clozapine 50 (mg) 150 mg PO BEDTIME [facility] Last Admin: 04/18/25 20:20 Dose: 150 mg Fluphenazine HCl (Fluphenazine Hcl 2.5 Mg/Ml 10 Ml Vial) 2.5 mg IM BID PRN PRN Reason: give if refuses oral per HCP Last Admin: 03/05/25 09:42 Dose: 2.5 mg Fluphenazine HCl (Fluphenazine Hcl 2.5 Mg Tablet) 2.5 mg PO BID [facility] Last Admin: 04/19/25 08:22 Dose: 2.5 mg Fluticasone/Vilanterol (Fluticasone/Vilanterol 200/25 Blst.W.Dev) 1 puff INHALE RDAILY [facility] Last Admin: 04/19/25 08:18 Dose: 1 puff Glycopyrrolate (Glycopyrrolate 1 Mg Tablet) 1 mg PO BID [facility] Last Admin: 04/19/25 08:21 Dose: 1 mg Guaifenesin (Guaifenesin 200 Mg/10 Ml 10 Ml Liquid) 10 ml PO Q6H PRN PRN Reason: Cough Hydrochlorothiazide (Hydrochlorothiazide 25 Mg Tablet) 25 mg PO DAILY [facility] Last Admin: 04/19/25 08:25 Dose: 25 mg Levetiracetam (Levetiracetam 250 Mg Tablet) 250 mg PO BID [facility] Last Admin: 04/19/25 08:22 Dose: 250 mg Magnesium Hydroxide (Milk Of Magnesia 30 Ml Oral.Susp) 30 ml PO DAILY PRN PRN Reason: Constipation Methimazole (Methimazole 5 Mg Tablet) 5 mg PO DAILY [facility] Last Admin: 04/19/25 08:22 Dose: 5 mg Naloxone HCl (Naloxone Hcl 0.4 Mg/Ml Vial) 0.04 mg IVPUSH Q5M PRN PRN Reason: Excessive sedation or RR < 8 Nifedipine (Nifedipine Er 30 Mg Tab.Er.24) 30 mg PO DAILY [facility]; Protocol Last Admin: 04/19/25 08:27 Dose: 30 mg Olanzapine (Olanzapine 10 Mg Tablet) 10 mg PO Q6H PRN PRN Reason: severe agitation Last Admin: 04/16/25 16:28 Dose: 10 mg Prednisone (Prednisone 20 Mg Tablet) 40 mg PO DAILY [facility] Last Admin: 04/19/25 08:20 Dose: 40 mg Tiotropium [place] (Tiotropium [place] 2.5 Mcg 1 Puff/2.5 Mcg Mist.Inhal) 1 puff INHALE RDAILY [facility] Last Admin: 04/19/25 08:19 Dose: 1 puff Trazodone HCl (Trazodone Hcl 50 Mg Tablet) 50 mg PO BEDTIME MRX1 PRN PRN Reason: Insomnia Last Admin: 04/04/25 23:21 Dose: 50 mg Allergies Allergies Allergy/AdvReac Type Severity Reaction Status Date / Time latex Allergy Unknown Verified 03/09/25 11:50 peanut Allergy Unknown Verified 03/09/25 11:50 Penicillins Allergy Unknown Verified 03/09/25 11:50 Assessment & Plan Assessment & Plan (1) Psychosis: Status: Acute Code(s): F29 - Unspecified psychosis not due to a substance or known physiological condition Assessment and Plan: r/o autoimmune reasons for psychosis including lupus. (2) Pulmonary nodules: Status: Acute Code(s): R91.8 - Other nonspecific abnormal finding of lung field Assessment and Plan: Bloodwork Per floor winder on 04/13/2025- repeat chest CT in 2 weeks after 4 week course of prednisone and reassess need for bronchoscopy. (3) Rheumatoid arthritis involving hand with positive rheumatoid factor: Status: Acute Code(s): M05.749 - Rheumatoid arthritis with rheumatoid factor of unspecified hand without organ or systems involvement Plan Mrs. Sharif is a 69 year-old woman who presents with a 3 month hx of new onset of psychosis (AH) and combination of paranoid delusions and cap gras delusions. No prior psychiatric hx. She does have of cocaine use but apparently had not used in some years. Daughter suspects she may have relapsed but no ongoing use. Pt presents with more complex theme of delusions. No additional medical work up available including head CT. CBC and cmp unremarkable. 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 It may be related to dementia process but complexity of delusions and psychosis not the common presentation for dementia that have psychosis early on such as in vascular dementia or LBD. Pt presents as gravely disable to able to care for self due to symptoms of psychosis and delusions. 02/03 increase night time risperidone 2mg po qhs increase cogetin at bedtime to 1mg po qhs. lower daily dose to 0.5mg po daily. continue cogentin 0.5mg po daily. clonazepam as prn olanzapine as prn for agitation 02/04 continue tx. 02/05 continue tx. 02/06 continue current dose of risperidone. NOTE THAT pt can't take doses higher than 3 mg/day of risperidone as higher doses had severe EPS. can use olanzapine as well per court order. 02/07/25: Patient has been agitated yelling loudly exist seeking, delusional thinking her daughter/son outside at the door to pick her up. PRNs given in the morning with mild effect. Patient became agitated, aggressive\, assaultive to 1 of the staff on the floor, yelling and hitting her face so grabbing her neck. Physical was started at 16:31 to 1634. Patient was given IM medication of Zyprexa 10 and Valium 10 with good effect. Tomorrow plan: Patient will be benefit from Valium 10 mg twice a day and Zyprexa 5 mg 3 times a day is added into her scheduled medication as current plan with risperidone is not effective. Patient also having a backup for risperidone if she refused. 02/08/25: Slept most of the morning and last night. In better behavior control. No aggressive behavior. She is quiet, self dialogue, and medication compliant. Due to receive restrain medication yesterday. I did not make any medication change. But the Valium and additional Zyprexa appears to be helpful. 02/09 will try to change keppra to depakote for seizures as keppra may exacerbate psychosis. increase risperidone 1mg po daily and 2mg po qhs. may need to add second antipsychotic. 02/10 continues to present as paranoid with AH. at times declines oral medications, requiring IM back per court order. 02/11 continue tx. 02/12 continue tx. 02/13 continue tx. 02/14: no changes today. Monitor for agitation around confusion about hospitalization 02/15: no changes today, self dialogue more overt/extensive today 02/16 add olanzapine 5mg po qhs. continue risperidone. minimal improvement if any. 02/17 continue tx. 02/18 seems more somnolent with bedtime olanzapine, will continue to monitor. 02/19 cbc showed thrombocytopenia, which is new and suspect related to depakote 02/20 pt appears more sedated since addition of olanzapine at bedtime. She continues to self dialogue. minimal improvement. 02/21: Continue current management and treatment plan. 02/22: continue current management and treatment plan. 02/23 continue tx. may need to affirm HCP try different antipsychotic. 02/24 continue tx. results of LENORE 1:360, pattern homogenous A. 02/25 will try rexulti, lower risperidone. pending coordination of medical care to see if underlying autoimmune condition has anything to do with current presentation. 02/26 discussed with hospital criminal attorney to dismiss sect 8, HCP invoked and can consent to other treatment. daughter Maricruz give permission to try different antipsychotic. 02/27 decrease risperidone to 1mg po daily, start prolixin 2.5mg po qhs, then increase to BID. continue olanzapine prn for agitation. olanzapine as well per court order. 03/03 pt seen by neurology, added HIV/RPR/LYME, can't have MRI due to cochlear implant. 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 Last Neurology appointment 01/2024. Missed appointment with rheumatology 05/2024, last seen in 02/26/2024. - Pt can't have MRI due to cochlear implant. Had head CT. - continue prolixin 2.5mg po daily, 5mg po qhs. will d/c risperidone, increase prolixin 5mg po BID, back up IM. 03/05 continue tx. 03/06 This keno writer spoke with pt's air grinder, Dr. Al obtained collateral information. Will coordinate with neurology and rheumatology once LP results are available. r/o reoccurance of pachymeningitis, lupus or other autoimmune cause for psychosis. 03/07: Continue current regimen and plans. Discontinued one-to-one and put in place 5 minute checks 03/08: Continue current plans and regimen 03/09 continue tx. 03/10: continue current mgmt. continues disorganized and psychotic. see neuro note from today. continue with neuro w/u. 03/11: given zyprexa 5 and valium [address] and head CTA. head CTA WNL, chest CT showed numerous pulmonary nodules up to 10 mm in size. no change in presentation. due to persistent requests for discharge, 3-day notice submitted on her behalf. will work toward HCP affirmation by the court. 03/12: per pulm consult, chest CT more c/w rheumatological process than CA, recommended empiric steroid course. awaiting input from neuro. consider Bx of nodules otherwise. continue current mgmt for now. 03/13: variably calm and agitated. planning for bronchoscopy with pulmonary nodule Bx on sunday. continue current mgmt. case discussed with HCP Maricruz (daughter), who is in agreement with plan. 03/14: CSF with notable findings. will f/u with neuro on sunday. stable presentation for now, remains quite psychotic. continue current mgmt. bronchoscopy sunday. 03/15: no change from yesterday in presentation or plan. 03/16: stable presentation. continues confused, wanting to go home. HCP affirmation tomorrow. continue current mgmt. 03/17: stable presdentation. bronchoscopy pending. continue current mgmt. 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 awaiting bronchoscopy. remains psychotic. continue current mgmt for now. 03/20: no change in presentation. still awaiting go-ahead for brochoscopy. continue current mgmt. 03/22: No changes. Noted above. 03/23: awaiting insurance approval for bronchoscopy. stable presentation. 03/24: as for yesterday. 03/25: loudly RIS in milieu today. bronchoscopy scheduled for sunday at 1130. NPO past MN night. stable presentation. continue current mgmt. 03/26 pt presents as more disorganized and inattentive than usual showing more signs of delirious behavior. bronchoscopy was canceled,due to shortage of needles to complete biopsy. will order cbc, cmp, ammonia levels given increase disorganized behavior and worsening attention pointing at a more delirious presentation. Review of results from LP showing negative results for meningitis panel/paraneoplastic panel (including most common antibody found in SLC which is EARL 1 which was negative), elevated protein in CSF 131 without leukocytosis, also elevated CSF/serum IgG index. elevated anti-ds dna titer 1:80. Such results may point more to a rheumatological condition than infectious condition or malignancy. Mrs. Sharif's OP air grinder, Dr. Al recommends trial of prednisone 40mg po daily at least for 2 weeks. 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 03/31 increase prolixin to 5mg po BID. continue all other medications including prednisone 40mg po daily. 04/01 discussed with her OP air grinder, Dr. Al possibility of transferring to [facility] for further tx of autoimmune condition, suspected also having lupus. continue prednisone. Spoke with daughter who is HCP, daughter concern about pt going to [facility] due to being dismissed several times when pt was first brought psychotic. 04/02 continue tx 04/03 increase prolixin to 5mg po TID. monitor EPS. 04/06 continue tx. 04/07- pending response from [facility] to see if they will take her for further evaluation of autoimmune condition with multidisciplinary team to continue see if psychosis related to autoimmune or primarily psychosis. Some improvement in attention, less guarded. continues to have auditory hallucinations. May consider switch to clozapine given that she has tried 3 antipsychotics with limited efficacy. 04/08 start clozapine 25mg po qhs. continue prolixin 7.5mg po TID. 04/09 increase clozapine to 50mg po qhs. continue prolixin 7.5mg po TID. 04/10 decrease prolixin to 7.5mg po BID. increase clozapine to 75mg po qhs. continue increasing clozapine by 25mg/day. floor winder, recommends repeat CT in 2 weeks, and hold on bronchoscopy. 04/11: no change today, will titrate Clozapine further tomorrow 04/12: titrate Clozapine to 100 mg QHS 04/13 increase clozapine to 125mg po qhs. continue prolixin 7.5mg po BID. 04/14 Provided update to daughter Maricruz who is HCP in terms of pt being treated for both autoimmune condition that may be contributing to psychosis (with prednione) as well as primarily psychiatric disorder (although less likely) with clozapine. some improvement in attention, slightly less paranoid but continues to present with ongoing AH of her daughter. 04/15 continue tx. 04/16 continue tx. 04/17 start glycopyrralate for drooling, decrease cogentin. 04/17 increase clozapine 150mg po qhs, lower prolixin 2.5mg po BID. back up. 04/18: Continue current management and treatment plan. 04/19: continue current management and treatment plan. Reason for continued inpatient stay Substantial Risk for: inability to function and rapid decompensation Time Spent With Patient Time: Total time managing care of this patient today ____ minutes.
[2025-04-19 19:11] VITALS: BP 124/64; PULSE 79; RESP 16; TEMP 36.6; O2SAT 94
[2025-04-20 08:10] VITALS: BP 110/56; PULSE 67; RESP 16; TEMP 36.7; O2SAT 95
[2025-04-20] MEDS: Tiotropium Bromide 2.5 mcg 1 PUFF/2.5 MCG MIST.INHAL INHALE (08:33)
[2025-04-20] MEDS: Fluticasone/Vilanterol 200/25 BLST.W.DEV 1 PUFF INHALE (08:33)
[2025-04-20] MEDS: NIFEdipine ER 30 MG TAB.ER.24 PO (08:40)
[2025-04-20 19:32] VITALS: BP 138/60; PULSE 85; RESP 16; TEMP 2.6; TEMP 36.6; O2SAT 96
--- NOTE | 2025-04-20 20:56 | HO.PSYCHPN ---
Subjective Subjective Date of Service: 04/20/25 Reason For Visit: Abnormal CT chest Subjective Notes: Section 8 Healthcare Proxy: Yes Interim History: Pt slept through the night. She is taking medications. Continues to present with paranoid ideas of people coming to the unit and hurting others, although reports less than before. She continues to hear voices of her daughter and son. She continues to report that daughter is outside waiting for her. She reports she has less drooling but experiencing dry mouth now. No SI/HI. Review of Systems Review of Systems Denies any shortness of breath, chest pain, dizziness, lightheadedness, abdominal pain or discomfort, nausea vomiting or diarrhea Yes all other systems are reviewed and are negative, Unobtainable due to mental condition, Unobtainable due to mental status and Other (patient refused to answer ROS questions) Constitutional: Reports as per HPI Eyes: Reports as per HPI Reports as per HPI Cardiovascular: Reports as per HPI Respiratory: Reports as per HPI Gastrointestinal: Reports as per HPI Musculoskeletal: Reports as per HPI Skin/Breast: Reports as per HPI Reports as per HPI and Reports confusion Psychiatric: Reports as per HPI and Reports confusion Endocrine: Reports as per HPI Hematologic/Lymphatic: Reports as per HPI Allergic/Immunologic: Reports as per HPI Mental Status Exam Mental Status Exam Narrative: Appearance: casual attire, adequate grooming and hygiene Behavior: calm, keeping to self, engagement limited by vision and hearing difficulties Orientation: alert, oriented to idea that she is in the hospital, year, month not date nor situation. Psychomotor Function: no agitation or slowing; no abnormal gestures or movements Speech: mostly clear, normal rate/rhythm/volume, spontaneous Mood: ok Affect: calm, non-labile Thought Process: more linear/organized. Thought Content: paranoid delusions of people coming to hurt others and attempting to hurt her Hallucinations: AH constantly talking to daughter who is not there. Delusions: paranoid delusions. Insight: impairment Judgment: impairment Impulsivity: none noted Diagnostics Vital Signs (24Hr): Vital Signs - 24 hr 04/20/25 08:10 04/20/25 19:32 Temperature 98.1 F 36.6 F L Pulse Rate 67 85 Respiratory Rate 16 16 Blood Pressure 110/56 L 138/60 Pulse Oximetry 95 96 Oxygen Delivery Method Room Air Room Air BMI result Body Mass Index 31.2 Labs 03/29/25 08:55 03/29/25 08:55 Imaging Radiology Impressions: ITS Impressions Head CT 03/05/25 15:51 IMPRESSION: 1. No acute intracranial abnormality. 2. Right-sided cochlear nerve implant with associated streak artifact. 3. Right-sided canal wall up mastoidectomy. Electronically signed by: Levi Greer MD 03/05/2025 04:25 PM EDT RP Lumbar Puncture Fluoroscopy 03/09/25 11:50 IMPRESSION: Successful fluoroscopy-guided lumbar puncture performed without immediate complications Electronically signed by: Thompson Andujar MD 03/09/2025 04:06 PM EDT RP Chest CT 03/11/25 11:52 IMPRESSION: 1. Multiple bilateral pulmonary nodules measuring up to 10 mm in size. Further evaluation should be based on Fleischner Society guidelines below. 2. Cardiomegaly. Findings consistent with pulmonary arterial hypertension. 3. No evidence of mediastinal or hilar lymphadenopathy. Fleischner Criteria for pulmonary nodule follow-up SOLID NODULES: Low risk patient: <6mm: no follow-up 6-8mm: 6 month follow-up CT >8mm: PET/Biopsy/ 3 month follow-up CT High risk patient: <6mm: 12 month follow-up CT 6-8mm: 6 month follow-up CT >8mm: PET/Biopsy/ 3 month follow-up CT SUB-SOLID/GROUNDGLASS NODULES: All patients: > or = 6mm: 6 month follow-up CT *Please note that in patients in the following categories, the Fleischner criteria do not apply: Immunocompromised, lung cancer screening population, age below 35, and patients with known malignancy Electronically signed by: Best Clemons MD 03/11/2025 01:45 PM EDT RP Head CTA 03/11/25 11:52 IMPRESSION: Head CT: No acute intracranial abnormality. CT angiogram of the head: No vascular occlusions. Electronically signed by: Gypsy Salamanca MD 03/11/2025 03:02 PM EDT RP Medications Medications Current Medications Acetaminophen (Acetaminophen 325 Mg Tablet) 650 mg PO Q6H PRN PRN Reason: Headache/Pain, Scale 1-10 Last Admin: 04/20/25 08:33 Dose: 650 mg Al Hydroxide/Mg Hydroxide (Magnesium Hydrox/Alum Hydrox 30 Ml Oral.Susp) 30 ml PO Q6H PRN PRN Reason: Heartburn/Nausea Albuterol Sulfate (Albuterol Sulfate 90 Mcg 8 Gm Inhaler) 2 puff INHALE Q4H PRN PRN Reason: Shortness Of Breath Or Wheezing Atorvastatin Calcium (Atorvastatin Calcium 40 Mg Tablet) 40 mg PO DAILY [facility] Last Admin: 04/20/25 08:39 Dose: 40 mg Clonazepam (Clonazepam Odt 0.5 Mg Tab.Rapdis) 0.5 mg PO BID PRN PRN Reason: severe anxiety/sleep Last Admin: 03/31/25 20:37 Dose: 0.5 mg Clozapine 100 mg/ Clozapine 50 (mg) 150 mg PO BEDTIME [facility] Last Admin: 04/20/25 19:33 Dose: 150 mg Fluphenazine HCl (Fluphenazine Hcl 2.5 Mg/Ml 10 Ml Vial) 2.5 mg IM BID PRN PRN Reason: give if refuses oral per HCP Last Admin: 03/05/25 09:42 Dose: 2.5 mg Fluphenazine HCl (Fluphenazine Hcl 2.5 Mg Tablet) 2.5 mg PO BID [facility] Last Admin: 04/20/25 19:33 Dose: 2.5 mg Fluticasone/Vilanterol (Fluticasone/Vilanterol 200/25 Blst.W.Dev) 1 puff INHALE RDAILY [facility] Last Admin: 04/20/25 08:33 Dose: 1 puff Glycopyrrolate (Glycopyrrolate 1 Mg Tablet) 1 mg PO BID [facility] Last Admin: 04/20/25 19:34 Dose: 1 mg Guaifenesin (Guaifenesin 200 Mg/10 Ml 10 Ml Liquid) 10 ml PO Q6H PRN PRN Reason: Cough Hydrochlorothiazide (Hydrochlorothiazide 25 Mg Tablet) 25 mg PO DAILY [facility] Last Admin: 04/20/25 08:35 Dose: 25 mg Levetiracetam (Levetiracetam 250 Mg Tablet) 250 mg PO BID [facility] Last Admin: 04/20/25 19:34 Dose: 250 mg Magnesium Hydroxide (Milk Of Magnesia 30 Ml Oral.Susp) 30 ml PO DAILY PRN PRN Reason: Constipation Methimazole (Methimazole 5 Mg Tablet) 5 mg PO DAILY [facility] Last Admin: 04/20/25 08:35 Dose: 5 mg Naloxone HCl (Naloxone Hcl 0.4 Mg/Ml Vial) 0.04 mg IVPUSH Q5M PRN PRN Reason: Excessive sedation or RR < 8 Nifedipine (Nifedipine Er 30 Mg Tab.Er.24) 30 mg PO DAILY [facility]; Protocol Last Admin: 04/20/25 08:40 Dose: 30 mg Olanzapine (Olanzapine 10 Mg Tablet) 10 mg PO Q6H PRN PRN Reason: severe agitation Last Admin: 04/16/25 16:28 Dose: 10 mg Prednisone (Prednisone 20 Mg Tablet) 40 mg PO DAILY [facility] Last Admin: 04/20/25 08:33 Dose: 40 mg Tiotropium Climax (Tiotropium Climax 2.5 Mcg 1 Puff/2.5 Mcg Mist.Inhal) 1 puff INHALE RDAILY [facility] Last Admin: 04/20/25 08:33 Dose: 1 puff Trazodone HCl (Trazodone Hcl 50 Mg Tablet) 50 mg PO BEDTIME MRX1 PRN PRN Reason: Insomnia Last Admin: 04/04/25 23:21 Dose: 50 mg Allergies Allergies Allergy/AdvReac Type Severity Reaction Status Date / Time latex Allergy Unknown Verified 03/09/25 11:50 peanut Allergy Unknown Verified 03/09/25 11:50 Penicillins Allergy Unknown Verified 03/09/25 11:50 Assessment & Plan Assessment & Plan (1) Psychosis: Status: Acute Code(s): F29 - Unspecified psychosis not due to a substance or known physiological condition Assessment and Plan: r/o autoimmune reasons for psychosis including lupus. (2) Pulmonary nodules: Status: Acute Code(s): R91.8 - Other nonspecific abnormal finding of lung field Assessment and Plan: Bloodwork Per behavioral intervention specialist on 04/13/2025- repeat chest CT in 2 weeks after 4 week course of prednisone and reassess need for bronchoscopy. (3) Rheumatoid arthritis involving hand with positive rheumatoid factor: Status: Acute Code(s): M05.749 - Rheumatoid arthritis with rheumatoid factor of unspecified hand without organ or systems involvement Plan Mrs. Sharif is a 69 year-old woman who presents with a 3 month hx of new onset of psychosis (AH) and combination of paranoid delusions and cap gras delusions. No prior psychiatric hx. She does have of cocaine use but apparently had not used in some years. Daughter suspects she may have relapsed but no ongoing use. Pt presents with more complex theme of delusions. No additional medical work up available including head CT. CBC and cmp unremarkable. 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 It may be related to dementia process but complexity of delusions and psychosis not the common presentation for dementia that have psychosis early on such as in vascular dementia or LBD. Pt presents as gravely disable to able to care for self due to symptoms of psychosis and delusions. 02/03 increase night time risperidone 2mg po qhs increase cogetin at bedtime to 1mg po qhs. lower daily dose to 0.5mg po daily. continue cogentin 0.5mg po daily. clonazepam as prn olanzapine as prn for agitation 02/04 continue tx. 02/05 continue tx. 02/06 continue current dose of risperidone. NOTE THAT pt can't take doses higher than 3 mg/day of risperidone as higher doses had severe EPS. can use olanzapine as well per court order. 02/07/25: Patient has been agitated yelling loudly exist seeking, delusional thinking her daughter/son outside at the door to pick her up. PRNs given in the morning with mild effect. Patient became agitated, aggressive\, assaultive to 1 of the staff on the floor, yelling and hitting her face so grabbing her neck. Physical was started at 16:31 to 1634. Patient was given IM medication of Zyprexa 10 and Valium 10 with good effect. Tomorrow plan: Patient will be benefit from Valium 10 mg twice a day and Zyprexa 5 mg 3 times a day is added into her scheduled medication as current plan with risperidone is not effective. Patient also having a backup for risperidone if she refused. 02/08/25: Slept most of the morning and last night. In better behavior control. No aggressive behavior. She is quiet, self dialogue, and medication compliant. Due to receive restrain medication yesterday. I did not make any medication change. But the Valium and additional Zyprexa appears to be helpful. 02/09 will try to change keppra to depakote for seizures as keppra may exacerbate psychosis. increase risperidone 1mg po daily and 2mg po qhs. may need to add second antipsychotic. 02/10 continues to present as paranoid with AH. at times declines oral medications, requiring IM back per court order. 02/11 continue tx. 02/12 continue tx. 02/13 continue tx. 02/14: no changes today. Monitor for agitation around confusion about hospitalization 02/15: no changes today, self dialogue more overt/extensive today 02/16 add olanzapine 5mg po qhs. continue risperidone. minimal improvement if any. 02/17 continue tx. 02/18 seems more somnolent with bedtime olanzapine, will continue to monitor. 02/19 cbc showed thrombocytopenia, which is new and suspect related to depakote 02/20 pt appears more sedated since addition of olanzapine at bedtime. She continues to self dialogue. minimal improvement. 02/21: Continue current management and treatment plan. 02/22: continue current management and treatment plan. 02/23 continue tx. may need to affirm HCP try different antipsychotic. 02/24 continue tx. results of LENORE 1:360, pattern homogenous A. 02/25 will try rexulti, lower risperidone. pending coordination of medical care to see if underlying autoimmune condition has anything to do with current presentation. 02/26 discussed with hospital claim attorney to dismiss sect 8, HCP invoked and can consent to other treatment. daughter Maricruz give permission to try different antipsychotic. 02/27 decrease risperidone to 1mg po daily, start prolixin 2.5mg po qhs, then increase to BID. continue olanzapine prn for agitation. olanzapine as well per court order. 03/03 pt seen by neurology, added HIV/RPR/LYME, can't have MRI due to cochlear implant. 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 Last Neurology appointment 01/2024. Missed appointment with rheumatology 05/2024, last seen in 02/26/2024. - Pt can't have MRI due to cochlear implant. Had head CT. - continue prolixin 2.5mg po daily, 5mg po qhs. will d/c risperidone, increase prolixin 5mg po BID, back up IM. 03/05 continue tx. 03/06 This property underwriter spoke with pt's steel die printer, Dr. Al obtained collateral information. Will coordinate with neurology and rheumatology once LP results are available. r/o reoccurance of pachymeningitis, lupus or other autoimmune cause for psychosis. 03/07: Continue current regimen and plans. Discontinued one-to-one and put in place 5 minute checks 03/08: Continue current plans and regimen 03/09 continue tx. 03/10: continue current mgmt. continues disorganized and psychotic. see neuro note from today. continue with neuro w/u. 03/11: given zyprexa 5 and valium [address] and head CTA. head CTA WNL, chest CT showed numerous pulmonary nodules up to 10 mm in size. no change in presentation. due to persistent requests for discharge, 3-day notice submitted on her behalf. will work toward HCP affirmation by the court. 03/12: per pulm consult, chest CT more c/w rheumatological process than CA, recommended empiric steroid course. awaiting input from neuro. consider Bx of nodules otherwise. continue current mgmt for now. 03/13: variably calm and agitated. planning for bronchoscopy with pulmonary nodule Bx on sunday. continue current mgmt. case discussed with HCP Maricruz (daughter), who is in agreement with plan. 03/14: CSF with notable findings. will f/u with neuro on sunday. stable presentation for now, remains quite psychotic. continue current mgmt. bronchoscopy sunday. 03/15: no change from yesterday in presentation or plan. 03/16: stable presentation. continues confused, wanting to go home. HCP affirmation tomorrow. continue current mgmt. 03/17: stable presdentation. bronchoscopy pending. continue current mgmt. 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 awaiting bronchoscopy. remains psychotic. continue current mgmt for now. 03/20: no change in presentation. still awaiting go-ahead for brochoscopy. continue current mgmt. 03/22: No changes. Noted above. 03/23: awaiting insurance approval for bronchoscopy. stable presentation. 03/24: as for yesterday. 03/25: loudly RIS in milieu today. bronchoscopy scheduled for sunday at 1130. NPO past MN night. stable presentation. continue current mgmt. 03/26 pt presents as more disorganized and inattentive than usual showing more signs of delirious behavior. bronchoscopy was canceled,due to shortage of needles to complete biopsy. will order cbc, cmp, ammonia levels given increase disorganized behavior and worsening attention pointing at a more delirious presentation. Review of results from LP showing negative results for meningitis panel/paraneoplastic panel (including most common antibody found in SLC which is EARL 1 which was negative), elevated protein in CSF 131 without leukocytosis, also elevated CSF/serum IgG index. elevated anti-ds dna titer 1:80. Such results may point more to a rheumatological condition than infectious condition or malignancy. Mrs. Sharif's OP steel die printer, Dr. Al recommends trial of prednisone 40mg po daily at least for 2 weeks. 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 03/31 increase prolixin to 5mg po BID. continue all other medications including prednisone 40mg po daily. 04/01 discussed with her OP steel die printer, Dr. Al possibility of transferring to [facility] for further tx of autoimmune condition, suspected also having lupus. continue prednisone. Spoke with daughter who is HCP, daughter concern about pt going to [facility] due to being dismissed several times when pt was first brought psychotic. 04/02 continue tx 04/03 increase prolixin to 5mg po TID. monitor EPS. 04/06 continue tx. 04/07- pending response from [facility] to see if they will take her for further evaluation of autoimmune condition with multidisciplinary team to continue see if psychosis related to autoimmune or primarily psychosis. Some improvement in attention, less guarded. continues to have auditory hallucinations. May consider switch to clozapine given that she has tried 3 antipsychotics with limited efficacy. 04/08 start clozapine 25mg po qhs. continue prolixin 7.5mg po TID. 04/09 increase clozapine to 50mg po qhs. continue prolixin 7.5mg po TID. 04/10 decrease prolixin to 7.5mg po BID. increase clozapine to 75mg po qhs. continue increasing clozapine by 25mg/day. behavioral intervention specialist, recommends repeat CT in 2 weeks, and hold on bronchoscopy. 04/11: no change today, will titrate Clozapine further tomorrow 04/12: titrate Clozapine to 100 mg QHS 04/13 increase clozapine to 125mg po qhs. continue prolixin 7.5mg po BID. 04/14 Provided update to daughter Maricruz who is HCP in terms of pt being treated for both autoimmune condition that may be contributing to psychosis (with prednione) as well as primarily psychiatric disorder (although less likely) with clozapine. some improvement in attention, slightly less paranoid but continues to present with ongoing AH of her daughter. 04/15 continue tx. 04/16 continue tx. 04/17 start glycopyrralate for drooling, decrease cogentin. 04/17 increase clozapine 150mg po qhs, lower prolixin 2.5mg po BID. back up. 04/18: Continue current management and treatment plan. 04/19: continue current management and treatment plan. 04/20 increase clozapine to 175mg po qhs. Reason for continued inpatient stay Substantial Risk for: inability to function Time Spent With Patient Time: Total time managing care of this patient today ____ minutes.
[2025-04-21 05:17] VITALS: BMI 33.2
[2025-04-21 08:30] VITALS: BP 132/57; PULSE 62; RESP 16; TEMP 36.5; O2SAT 95
[2025-04-21] MEDS: Fluticasone/Vilanterol 200/25 BLST.W.DEV 1 PUFF INHALE (09:07)
[2025-04-21] MEDS: Tiotropium Bromide 2.5 mcg 1 PUFF/2.5 MCG MIST.INHAL INHALE (09:07)
[2025-04-21] MEDS: NIFEdipine ER 30 MG TAB.ER.24 PO (09:14)
--- NOTE | 2025-04-21 09:32 | HO.PSYCHPN ---
Subjective Subjective Date of Service: 04/21/25 Reason For Visit: Abnormal CT chest Subjective Notes: Section 8 Interim History: Pt slept through the night. She is taking medications. Continues to present with paranoid ideas of people coming to the unit and hurting others, although reports less than before. She continues to hear voices of her daughter and son. She asks if she can go home and come back later. She continues to report that daughter is outside waiting for her. She reports she has less drooling but experiencing dry mouth now. No SI/HI. Review of Systems Review of Systems Denies any shortness of breath, chest pain, dizziness, lightheadedness, abdominal pain or discomfort, nausea vomiting or diarrhea Yes all other systems are reviewed and are negative, Unobtainable due to mental condition, Unobtainable due to mental status and Other (patient refused to answer ROS questions) Constitutional: Reports as per HPI Eyes: Reports as per HPI Reports as per HPI Cardiovascular: Reports as per HPI Respiratory: Reports as per HPI Gastrointestinal: Reports as per HPI Musculoskeletal: Reports as per HPI Skin/Breast: Reports as per HPI Reports as per HPI and Reports confusion Psychiatric: Reports as per HPI and Reports confusion Endocrine: Reports as per HPI Hematologic/Lymphatic: Reports as per HPI Allergic/Immunologic: Reports as per HPI Mental Status Exam Mental Status Exam Narrative: Appearance: casual attire, adequate grooming and hygiene Behavior: calm, keeping to self, engagement limited by vision and hearing difficulties Orientation: alert, oriented to idea that she is in the hospital, year, month not date nor situation. Psychomotor Function: no agitation or slowing; no abnormal gestures or movements Speech: mostly clear, normal rate/rhythm/volume, spontaneous Mood: ok Affect: calm, non-labile Thought Process: more linear/organized. Thought Content: paranoid delusions of people coming to hurt others and attempting to hurt her Hallucinations: AH constantly talking to daughter who is not there. Delusions: paranoid delusions. Insight: impairment Judgment: impairment Impulsivity: none noted Diagnostics Vital Signs (24Hr): Vital Signs - 24 hr 04/20/25 19:32 04/21/25 08:30 Temperature 36.6 F L 97.7 F Pulse Rate 85 62 Respiratory Rate 16 16 Blood Pressure 138/60 132/57 L Pulse Oximetry 96 95 Oxygen Delivery Method Room Air Room Air BMI result Body Mass Index 33.2 Labs 03/29/25 08:55 08/31/25 08:55 Imaging Radiology Impressions: ITS Impressions Head CT 03/05/25 15:51 IMPRESSION: 1. No acute intracranial abnormality. 2. Right-sided cochlear nerve implant with associated streak artifact. 3. Right-sided canal wall up mastoidectomy. Electronically signed by: Levi Greer MD 03/05/2025 04:25 PM EDT RP Lumbar Puncture Fluoroscopy 03/09/25 11:50 IMPRESSION: Successful fluoroscopy-guided lumbar puncture performed without immediate complications Electronically signed by: Thompson Andujar MD 03/09/2025 04:06 PM EDT RP Chest CT 03/11/25 11:52 IMPRESSION: 1. Multiple bilateral pulmonary nodules measuring up to 10 mm in size. Further evaluation should be based on Fleischner Society guidelines below. 2. Cardiomegaly. Findings consistent with pulmonary arterial hypertension. 3. No evidence of mediastinal or hilar lymphadenopathy. Fleischner Criteria for pulmonary nodule follow-up SOLID NODULES: Low risk patient: <6mm: no follow-up 6-8mm: 6 month follow-up CT >8mm: PET/Biopsy/ 3 month follow-up CT High risk patient: <6mm: 12 month follow-up CT 6-8mm: 6 month follow-up CT >8mm: PET/Biopsy/ 3 month follow-up CT SUB-SOLID/GROUNDGLASS NODULES: All patients: > or = 6mm: 6 month follow-up CT *Please note that in patients in the following categories, the Fleischner criteria do not apply: Immunocompromised, lung cancer screening population, age below 35, and patients with known malignancy Electronically signed by: Best Clemons MD 03/11/2025 01:45 PM EDT RP Head CTA 03/11/25 11:52 IMPRESSION: Head CT: No acute intracranial abnormality. CT angiogram of the head: No vascular occlusions. Electronically signed by: Gypsy Salamanca MD 03/11/2025 03:02 PM EDT RP Medications Medications Current Medications Acetaminophen (Acetaminophen 325 Mg Tablet) 650 mg PO Q6H PRN PRN Reason: Headache/Pain, Scale 1-10 Last Admin: 04/21/25 09:07 Dose: 650 mg Al Hydroxide/Mg Hydroxide (Magnesium Hydrox/Alum Hydrox 30 Ml Oral.Susp) 30 ml PO Q6H PRN PRN Reason: Heartburn/Nausea Albuterol Sulfate (Albuterol Sulfate 90 Mcg 8 Gm Inhaler) 2 puff INHALE Q4H PRN PRN Reason: Shortness Of Breath Or Wheezing Atorvastatin Calcium (Atorvastatin Calcium 40 Mg Tablet) 40 mg PO DAILY REPLACED BY [facility] Last Admin: 04/21/25 09:10 Dose: 40 mg Clonazepam (Clonazepam Odt 0.5 Mg Tab.Rapdis) 0.5 mg PO BID PRN PRN Reason: severe anxiety/sleep Last Admin: 03/31/25 20:37 Dose: 0.5 mg Clozapine 100 mg/ Clozapine 75 (mg) 175 mg PO BEDTIME REPLACED BY [facility] Fluphenazine HCl (Fluphenazine Hcl 2.5 Mg/Ml 10 Ml Vial) 2.5 mg IM BID PRN PRN Reason: give if refuses oral per HCP Last Admin: 03/05/25 09:42 Dose: 2.5 mg Fluphenazine HCl (Fluphenazine Hcl 2.5 Mg Tablet) 2.5 mg PO BID REPLACED BY [facility] Last Admin: 04/21/25 09:10 Dose: 2.5 mg Fluticasone/Vilanterol (Fluticasone/Vilanterol 200/25 Blst.W.Dev) 1 puff INHALE RDAILY REPLACED BY [facility] Last Admin: 04/21/25 09:07 Dose: 1 puff Glycopyrrolate (Glycopyrrolate 1 Mg Tablet) 1 mg PO BID REPLACED BY [facility] Last Admin: 04/21/25 09:10 Dose: 1 mg Guaifenesin (Guaifenesin 200 Mg/10 Ml 10 Ml Liquid) 10 ml PO Q6H PRN PRN Reason: Cough Hydrochlorothiazide (Hydrochlorothiazide 25 Mg Tablet) 25 mg PO DAILY REPLACED BY [facility] Last Admin: 04/21/25 09:14 Dose: 25 mg Levetiracetam (Levetiracetam 250 Mg Tablet) 250 mg PO BID REPLACED BY [facility] Last Admin: 04/21/25 09:07 Dose: 250 mg Magnesium Hydroxide (Milk Of Magnesia 30 Ml Oral.Susp) 30 ml PO DAILY PRN PRN Reason: Constipation Methimazole (Methimazole 5 Mg Tablet) 5 mg PO DAILY REPLACED BY [facility] Last Admin: 04/21/25 09:07 Dose: 5 mg Naloxone HCl (Naloxone Hcl 0.4 Mg/Ml Vial) 0.04 mg IVPUSH Q5M PRN PRN Reason: Excessive sedation or RR < 8 Nifedipine (Nifedipine Er 30 Mg Tab.Er.24) 30 mg PO DAILY REPLACED BY [facility]; Protocol Last Admin: 04/21/25 09:14 Dose: 30 mg Olanzapine (Olanzapine 10 Mg Tablet) 10 mg PO Q6H PRN PRN Reason: severe agitation Last Admin: 04/16/25 16:28 Dose: 10 mg Prednisone (Prednisone 20 Mg Tablet) 40 mg PO DAILY REPLACED BY [facility] Last Admin: 04/21/25 09:11 Dose: 40 mg Tiotropium [place] (Tiotropium [place] 2.5 Mcg 1 Puff/2.5 Mcg Mist.Inhal) 1 puff INHALE RDAILY REPLACED BY [facility] Last Admin: 04/21/25 09:07 Dose: 1 puff Trazodone HCl (Trazodone Hcl 50 Mg Tablet) 50 mg PO BEDTIME MRX1 PRN PRN Reason: Insomnia Last Admin: 04/04/25 23:21 Dose: 50 mg Allergies Allergies Allergy/AdvReac Type Severity Reaction Status Date / Time latex Allergy Unknown Verified 03/09/25 11:50 peanut Allergy Unknown Verified 03/09/25 11:50 Penicillins Allergy Unknown Verified 03/09/25 11:50 Assessment & Plan Assessment & Plan (1) Psychosis: Status: Acute Code(s): F29 - Unspecified psychosis not due to a substance or known physiological condition Assessment and Plan: r/o autoimmune reasons for psychosis including lupus. (2) Pulmonary nodules: Status: Acute Code(s): R91.8 - Other nonspecific abnormal finding of lung field Assessment and Plan: Bloodwork Per oncologist on 04/13/2025- repeat chest CT in 2 weeks after 4 week course of prednisone and reassess need for bronchoscopy. (3) Rheumatoid arthritis involving hand with positive rheumatoid factor: Status: Acute Code(s): M05.749 - Rheumatoid arthritis with rheumatoid factor of unspecified hand without organ or systems involvement Plan Mrs. Sharif is a 69 year-old woman who presents with a 3 month hx of new onset of psychosis (AH) and combination of paranoid delusions and cap gras delusions. No prior psychiatric hx. She does have of cocaine use but apparently had not used in some years. Daughter suspects she may have relapsed but no ongoing use. Pt presents with more complex theme of delusions. No additional medical work up available including head CT. CBC and cmp unremarkable. 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 It may be related to dementia process but complexity of delusions and psychosis not the common presentation for dementia that have psychosis early on such as in vascular dementia or LBD. Pt presents as gravely disable to able to care for self due to symptoms of psychosis and delusions. 02/03 increase night time risperidone 2mg po qhs increase cogetin at bedtime to 1mg po qhs. lower daily dose to 0.5mg po daily. continue cogentin 0.5mg po daily. clonazepam as prn olanzapine as prn for agitation 02/04 continue tx. 02/05 continue tx. 02/06 continue current dose of risperidone. NOTE THAT pt can't take doses higher than 3 mg/day of risperidone as higher doses had severe EPS. can use olanzapine as well per court order. 02/07/25: Patient has been agitated yelling loudly exist seeking, delusional thinking her daughter/son outside at the door to pick her up. PRNs given in the morning with mild effect. Patient became agitated, aggressive\, assaultive to 1 of the staff on the floor, yelling and hitting her face so grabbing her neck. Physical was started at 16:31 to 1634. Patient was given IM medication of Zyprexa 10 and Valium 10 with good effect. Tomorrow plan: Patient will be benefit from Valium 10 mg twice a day and Zyprexa 5 mg 3 times a day is added into her scheduled medication as current plan with risperidone is not effective. Patient also having a backup for risperidone if she refused. 02/08/25: Slept most of the morning and last night. In better behavior control. No aggressive behavior. She is quiet, self dialogue, and medication compliant. Due to receive restrain medication yesterday. I did not make any medication change. But the Valium and additional Zyprexa appears to be helpful. 02/09 will try to change keppra to depakote for seizures as keppra may exacerbate psychosis. increase risperidone 1mg po daily and 2mg po qhs. may need to add second antipsychotic. 02/10 continues to present as paranoid with AH. at times declines oral medications, requiring IM back per court order. 02/11 continue tx. 02/12 continue tx. 02/13 continue tx. 02/14: no changes today. Monitor for agitation around confusion about hospitalization 02/15: no changes today, self dialogue more overt/extensive today 02/16 add olanzapine 5mg po qhs. continue risperidone. minimal improvement if any. 02/17 continue tx. 02/18 seems more somnolent with bedtime olanzapine, will continue to monitor. 02/19 cbc showed thrombocytopenia, which is new and suspect related to depakote 02/20 pt appears more sedated since addition of olanzapine at bedtime. She continues to self dialogue. minimal improvement. 02/21: Continue current management and treatment plan. 02/22: continue current management and treatment plan. 02/23 continue tx. may need to affirm HCP try different antipsychotic. 02/24 continue tx. results of LENORE 1:360, pattern homogenous A. 02/25 will try rexulti, lower risperidone. pending coordination of medical care to see if underlying autoimmune condition has anything to do with current presentation. 02/26 discussed with hospital base manager to dismiss sect 8, HCP invoked and can consent to other treatment. daughter Maricruz give permission to try different antipsychotic. 02/27 decrease risperidone to 1mg po daily, start prolixin 2.5mg po qhs, then increase to BID. continue olanzapine prn for agitation. olanzapine as well per court order. 03/03 pt seen by neurology, added HIV/RPR/LYME, can't have MRI due to cochlear implant. 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 Last Neurology appointment 01/2024. Missed appointment with rheumatology 05/2024, last seen in 02/26/2024. - Pt can't have MRI due to cochlear implant. Had head CT. - continue prolixin 2.5mg po daily, 5mg po qhs. will d/c risperidone, increase prolixin 5mg po BID, back up IM. 03/05 continue tx. 03/06 This senior mortgage underwriter spoke with pt's oyster worker, Dr. Al obtained collateral information. Will coordinate with neurology and rheumatology once LP results are available. r/o reoccurance of pachymeningitis, lupus or other autoimmune cause for psychosis. 03/07: Continue current regimen and plans. Discontinued one-to-one and put in place 5 minute checks 03/08: Continue current plans and regimen 03/09 continue tx. 03/10: continue current mgmt. continues disorganized and psychotic. see neuro note from today. continue with neuro w/u. 03/11: given zyprexa 5 and valium [address] and head CTA. head CTA WNL, chest CT showed numerous pulmonary nodules up to 10 mm in size. no change in presentation. due to persistent requests for discharge, 3-day notice submitted on her behalf. will work toward HCP affirmation by the court. 03/12: per pulm consult, chest CT more c/w rheumatological process than CA, recommended empiric steroid course. awaiting input from neuro. consider Bx of nodules otherwise. continue current mgmt for now. 03/13: variably calm and agitated. planning for bronchoscopy with pulmonary nodule Bx on sunday. continue current mgmt. case discussed with HCP Maricruz (daughter), who is in agreement with plan. 03/14: CSF with notable findings. will f/u with neuro on sunday. stable presentation for now, remains quite psychotic. continue current mgmt. bronchoscopy sunday. 03/15: no change from yesterday in presentation or plan. 03/16: stable presentation. continues confused, wanting to go home. HCP affirmation tomorrow. continue current mgmt. 03/17: stable presdentation. bronchoscopy pending. continue current mgmt. 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 awaiting bronchoscopy. remains psychotic. continue current mgmt for now. 03/20: no change in presentation. still awaiting go-ahead for brochoscopy. continue current mgmt. 03/22: No changes. Noted above. 03/23: awaiting insurance approval for bronchoscopy. stable presentation. 03/24: as for yesterday. 03/25: loudly RIS in milieu today. bronchoscopy scheduled for sunday at 1130. NPO past MN night. stable presentation. continue current mgmt. 03/26 pt presents as more disorganized and inattentive than usual showing more signs of delirious behavior. bronchoscopy was canceled,due to shortage of needles to complete biopsy. will order cbc, cmp, ammonia levels given increase disorganized behavior and worsening attention pointing at a more delirious presentation. Review of results from LP showing negative results for meningitis panel/paraneoplastic panel (including most common antibody found in S[facility] which is EARL 1 which was negative), elevated protein in CSF 131 without leukocytosis, also elevated CSF/serum IgG index. elevated anti-ds dna titer 1:80. Such results may point more to a rheumatological condition than infectious condition or malignancy. Mrs. Sharif's OP oyster worker, Dr. Al recommends trial of prednisone 40mg po daily at least for 2 weeks. 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 03/31 increase prolixin to 5mg po BID. continue all other medications including prednisone 40mg po daily. 04/01 discussed with her OP oyster worker, Dr. Al possibility of transferring to [facility] for further tx of autoimmune condition, suspected also having lupus. continue prednisone. Spoke with daughter who is HCP, daughter concern about pt going to [facility] due to being dismissed several times when pt was first brought psychotic. 04/02 continue tx 04/03 increase prolixin to 5mg po TID. monitor EPS. 04/06 continue tx. 04/07- pending response from [facility] to see if they will take her for further evaluation of autoimmune condition with multidisciplinary team to continue see if psychosis related to autoimmune or primarily psychosis. Some improvement in attention, less guarded. continues to have auditory hallucinations. May consider switch to clozapine given that she has tried 3 antipsychotics with limited efficacy. 04/08 start clozapine 25mg po qhs. continue prolixin 7.5mg po TID. 04/09 increase clozapine to 50mg po qhs. continue prolixin 7.5mg po TID. 04/10 decrease prolixin to 7.5mg po BID. increase clozapine to 75mg po qhs. continue increasing clozapine by 25mg/day. oncologist, recommends repeat CT in 2 weeks, and hold on bronchoscopy. 04/11: no change today, will titrate Clozapine further tomorrow 04/12: titrate Clozapine to 100 mg QHS 04/13 increase clozapine to 125mg po qhs. continue prolixin 7.5mg po BID. 04/14 Provided update to daughter Maricruz who is HCP in terms of pt being treated for both autoimmune condition that may be contributing to psychosis (with prednione) as well as primarily psychiatric disorder (although less likely) with clozapine. some improvement in attention, slightly less paranoid but continues to present with ongoing AH of her daughter. 04/15 continue tx. 04/16 continue tx. 04/17 start glycopyrralate for drooling, decrease cogentin. 04/17 increase clozapine 150mg po qhs, lower prolixin 2.5mg po BID. back up. 04/18: Continue current management and treatment plan. 04/19: continue current management and treatment plan. 04/20 increase clozapine to 175mg po qhs. 04/21 continue tx. Reason for continued inpatient stay Substantial Risk for: inability to function Time Spent With Patient Time: Total time managing care of this patient today ____ minutes.
[2025-04-21 19:28] VITALS: BP 125/60; PULSE 75; RESP 16; TEMP 35.9; O2SAT 96
[2025-04-22] MEDS: Tiotropium Bromide 2.5 mcg 1 PUFF/2.5 MCG MIST.INHAL INHALE (08:24)
[2025-04-22 08:25] VITALS: BP 145/63
[2025-04-22] MEDS: NIFEdipine ER 30 MG TAB.ER.24 PO (08:25)
[2025-04-22 08:26] VITALS: BP 145/63
[2025-04-22] MEDS: Fluticasone/Vilanterol 200/25 BLST.W.DEV 1 PUFF INHALE (08:27)
[2025-04-22 08:30] VITALS: BP 145/63; PULSE 71; RESP 17; TEMP 36.7; O2SAT 99
--- NOTE | 2025-04-22 17:24 | P.PNPSI_ITS ---
Subjective Subjective Date of Service: 04/22/25 Reason For Visit: Abnormal CT chest Subjective Notes: Section 8 Interim History: pt slept through the night. taking medications reporting feeling somnolent during the day. She continues to self dialogued, not aware that cardboard that she is holding is not a phone. thinks this is the reason she hears her daugther. ability to function continues to be very impaired. no SI/HI. Vs stable, eating well. Review of Systems Review of Systems Denies any shortness of breath, chest pain, dizziness, lightheadedness, abdominal pain or discomfort, nausea vomiting or diarrhea Yes all other systems are reviewed and are negative, Unobtainable due to mental condition, Unobtainable due to mental status and Other (patient refused to answer ROS questions) Constitutional: Reports as per HPI Eyes: Reports as per HPI Reports as per HPI Cardiovascular: Reports as per HPI Respiratory: Reports as per HPI Gastrointestinal: Reports as per HPI Musculoskeletal: Reports as per HPI Skin/Breast: Reports as per HPI Reports as per HPI and Reports confusion Psychiatric: Reports as per HPI and Reports confusion Endocrine: Reports as per HPI Hematologic/Lymphatic: Reports as per HPI Allergic/Immunologic: Reports as per HPI Mental Status Exam Mental Status Exam Narrative: Appearance: casual attire, adequate grooming and hygiene Behavior: calm, keeping to self, engagement limited by vision and hearing difficulties Orientation: alert, oriented to idea that she is in the hospital, year, month not date nor situation. Psychomotor Function: no agitation or slowing; no abnormal gestures or movements Speech: mostly clear, normal rate/rhythm/volume, spontaneous Mood: ok Affect: calm, non-labile Thought Process: more linear/organized. Thought Content: paranoid delusions of people coming to hurt others and attempting to hurt her Hallucinations: AH constantly talking to daughter who is not there. Delusions: paranoid delusions. Insight: impairment Judgment: impairment Impulsivity: none noted Diagnostics Vital Signs (24Hr): Vital Signs - 24 hr 04/21/25 19:28 04/22/25 08:25 04/22/25 08:26 Temperature 96.6 F L Pulse Rate 75 Respiratory Rate 16 Blood Pressure 125/60 145/63 H 145/63 H Pulse Oximetry 96 Oxygen Delivery Method Room Air 04/22/25 08:30 Temperature 98.1 F Pulse Rate 71 Respiratory Rate 17 Blood Pressure 145/63 H Pulse Oximetry 99 Oxygen Delivery Method Room Air BMI result Body Mass Index 33.2 Labs 03/29/25 08:55 03/29/25 08:55 Imaging Radiology Impressions: ITS Impressions Head CT 03/05/25 15:51 IMPRESSION: 1. No acute intracranial abnormality. 2. Right-sided cochlear nerve implant with associated streak artifact. 3. Right-sided canal wall up mastoidectomy. Electronically signed by: Levi Greer MD 03/05/2025 04:25 PM EDT RP Lumbar Puncture Fluoroscopy 03/09/25 11:50 IMPRESSION: Successful fluoroscopy-guided lumbar puncture performed without immediate complications Electronically signed by: Thompson Andujar MD 03/09/2025 04:06 PM EDT RP Chest CT 03/11/25 11:52 IMPRESSION: 1. Multiple bilateral pulmonary nodules measuring up to 10 mm in size. Further evaluation should be based on Fleischner Society guidelines below. 2. Cardiomegaly. Findings consistent with pulmonary arterial hypertension. 3. No evidence of mediastinal or hilar lymphadenopathy. Fleischner Criteria for pulmonary nodule follow-up SOLID NODULES: Low risk patient: <6mm: no follow-up 6-8mm: 6 month follow-up CT >8mm: PET/Biopsy/ 3 month follow-up CT High risk patient: <6mm: 12 month follow-up CT 6-8mm: 6 month follow-up CT >8mm: PET/Biopsy/ 3 month follow-up CT SUB-SOLID/GROUNDGLASS NODULES: All patients: > or = 6mm: 6 month follow-up CT *Please note that in patients in the following categories, the Fleischner criteria do not apply: Immunocompromised, lung cancer screening population, age below 35, and patients with known malignancy Electronically signed by: Best Clemons MD 03/11/2025 01:45 PM EDT RP Head CTA 03/11/25 11:52 IMPRESSION: Head CT: No acute intracranial abnormality. CT angiogram of the head: No vascular occlusions. Electronically signed by: Gypsy Salamanca MD 03/11/2025 03:02 PM EDT RP Medications Medications Current Medications Acetaminophen (Acetaminophen 325 Mg Tablet) 650 mg PO Q6H PRN PRN Reason: Headache/Pain, Scale 1-10 Last Admin: 04/21/25 09:07 Dose: 650 mg Al Hydroxide/Mg Hydroxide (Magnesium Hydrox/Alum Hydrox 30 Ml Oral.Susp) 30 ml PO Q6H PRN PRN Reason: Heartburn/Nausea Albuterol Sulfate (Albuterol Sulfate 90 Mcg 8 Gm Inhaler) 2 puff INHALE Q4H PRN PRN Reason: Shortness Of Breath Or Wheezing Atorvastatin Calcium (Atorvastatin Calcium 40 Mg Tablet) 40 mg PO DAILY [facility] Last Admin: 04/22/25 08:26 Dose: 40 mg Clonazepam (Clonazepam Odt 0.5 Mg Tab.Rapdis) 0.5 mg PO BID PRN PRN Reason: severe anxiety/sleep Last Admin: 03/31/25 20:37 Dose: 0.5 mg Clozapine 100 mg/ Clozapine 75 (mg) 175 mg PO BEDTIME [facility] Last Admin: 04/21/25 19:31 Dose: 175 mg Fluphenazine HCl (Fluphenazine Hcl 2.5 Mg/Ml 10 Ml Vial) 2.5 mg IM BID PRN PRN Reason: give if refuses oral per HCP Last Admin: 03/05/25 09:42 Dose: 2.5 mg Fluphenazine HCl (Fluphenazine Hcl 2.5 Mg Tablet) 2.5 mg PO BID [facility] Last Admin: 04/22/25 08:26 Dose: 2.5 mg Fluticasone/Vilanterol (Fluticasone/Vilanterol 200/25 Blst.W.Dev) 1 puff INHALE RDAILY [facility] Last Admin: 04/22/25 08:27 Dose: 1 puff Glycopyrrolate (Glycopyrrolate 1 Mg Tablet) 0.5 mg PO BID [facility] Guaifenesin (Guaifenesin 200 Mg/10 Ml 10 Ml Liquid) 10 ml PO Q6H PRN PRN Reason: Cough Hydrochlorothiazide (Hydrochlorothiazide 25 Mg Tablet) 25 mg PO DAILY [facility] Last Admin: 04/22/25 08:26 Dose: 25 mg Levetiracetam (Levetiracetam 250 Mg Tablet) 250 mg PO BID [facility] Last Admin: 04/22/25 08:26 Dose: 250 mg Magnesium Hydroxide (Milk Of Magnesia 30 Ml Oral.Susp) 30 ml PO DAILY PRN PRN Reason: Constipation Methimazole (Methimazole 5 Mg Tablet) 5 mg PO DAILY [facility] Last Admin: 04/22/25 08:25 Dose: 5 mg Naloxone HCl (Naloxone Hcl 0.4 Mg/Ml Vial) 0.04 mg IVPUSH Q5M PRN PRN Reason: Excessive sedation or RR < 8 Nifedipine (Nifedipine Er 30 Mg Tab.Er.24) 30 mg PO DAILY [facility]; Protocol Last Admin: 04/22/25 08:25 Dose: 30 mg Olanzapine (Olanzapine 10 Mg Tablet) 10 mg PO Q6H PRN PRN Reason: severe agitation Last Admin: 04/16/25 16:28 Dose: 10 mg Prednisone (Prednisone 20 Mg Tablet) 40 mg PO DAILY [facility] Last Admin: 04/22/25 08:26 Dose: 40 mg Tiotropium Huntington (Tiotropium [place] 2.5 Mcg 1 Puff/2.5 Mcg Mist.Inhal) 1 puff INHALE RDAILY [facility] Last Admin: 04/22/25 08:24 Dose: 1 puff Trazodone HCl (Trazodone Hcl 50 Mg Tablet) 50 mg PO BEDTIME MRX1 PRN PRN Reason: Insomnia Last Admin: 04/04/25 23:21 Dose: 50 mg Allergies Allergies Allergy/AdvReac Type Severity Reaction Status Date / Time latex Allergy Unknown Verified 03/09/25 11:50 peanut Allergy Unknown Verified 03/09/25 11:50 Penicillins Allergy Unknown Verified 03/09/25 11:50 Assessment & Plan Assessment & Plan (1) Psychosis: Status: Acute Code(s): F29 - Unspecified psychosis not due to a substance or known physiological condition Assessment and Plan: r/o autoimmune reasons for psychosis including lupus. (2) Pulmonary nodules: Status: Acute Code(s): R91.8 - Other nonspecific abnormal finding of lung field Assessment and Plan: Bloodwork Per manager financial systems on 04/13/2025- repeat chest CT in 2 weeks after 4 week course of prednisone and reassess need for bronchoscopy. (3) Rheumatoid arthritis involving hand with positive rheumatoid factor: Status: Acute Code(s): M05.749 - Rheumatoid arthritis with rheumatoid factor of unspecified hand without organ or systems involvement Plan Mrs. Sharif is a 69 year-old woman who presents with a 3 month hx of new onset of psychosis (AH) and combination of paranoid delusions and cap gras delusions. No prior psychiatric hx. She does have of cocaine use but apparently had not used in some years. Daughter suspects she may have relapsed but no ongoing use. Pt presents with more complex theme of delusions. No additional medical work up available including head CT. CBC and cmp unremarkable. 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 It may be related to dementia process but complexity of delusions and psychosis not the common presentation for dementia that have psychosis early on such as in vascular dementia or LBD. Pt presents as gravely disable to able to care for self due to symptoms of psychosis and delusions. 02/03 increase night time risperidone 2mg po qhs increase cogetin at bedtime to 1mg po qhs. lower daily dose to 0.5mg po daily. continue cogentin 0.5mg po daily. clonazepam as prn olanzapine as prn for agitation 02/04 continue tx. 02/05 continue tx. 02/06 continue current dose of risperidone. NOTE THAT pt can't take doses higher than 3 mg/day of risperidone as higher doses had severe EPS. can use olanzapine as well per court order. 02/07/25: Patient has been agitated yelling loudly exist seeking, delusional thinking her daughter/son outside at the door to pick her up. PRNs given in the morning with mild effect. Patient became agitated, aggressive\, assaultive to 1 of the staff on the floor, yelling and hitting her face so grabbing her neck. Physical was started at 16:31 to 1634. Patient was given IM medication of Zyprexa 10 and Valium 10 with good effect. Tomorrow plan: Patient will be benefit from Valium 10 mg twice a day and Zyprexa 5 mg 3 times a day is added into her scheduled medication as current plan with risperidone is not effective. Patient also having a backup for risperidone if she refused. 02/08/25: Slept most of the morning and last night. In better behavior control. No aggressive behavior. She is quiet, self dialogue, and medication compliant. Due to receive restrain medication yesterday. I did not make any medication change. But the Valium and additional Zyprexa appears to be helpful. 02/09 will try to change keppra to depakote for seizures as keppra may exacerbate psychosis. increase risperidone 1mg po daily and 2mg po qhs. may need to add second antipsychotic. 02/10 continues to present as paranoid with AH. at times declines oral medications, requiring IM back per court order. 02/11 continue tx. 02/12 continue tx. 02/13 continue tx. 02/14: no changes today. Monitor for agitation around confusion about hospitalization 02/15: no changes today, self dialogue more overt/extensive today 02/16 add olanzapine 5mg po qhs. continue risperidone. minimal improvement if any. 02/17 continue tx. 02/18 seems more somnolent with bedtime olanzapine, will continue to monitor. 02/19 cbc showed thrombocytopenia, which is new and suspect related to depakote 02/20 pt appears more sedated since addition of olanzapine at bedtime. She continues to self dialogue. minimal improvement. 02/21: Continue current management and treatment plan. 02/22: continue current management and treatment plan. 02/23 continue tx. may need to affirm HCP try different antipsychotic. 02/24 continue tx. results of LENORE 1:360, pattern homogenous A. 02/25 will try rexulti, lower risperidone. pending coordination of medical care to see if underlying autoimmune condition has anything to do with current presentation. 02/26 discussed with hospital trade mark attorney to dismiss sect 8, HCP invoked and can consent to other treatment. daughter Maricruz give permission to try different antipsychotic. 02/27 decrease risperidone to 1mg po daily, start prolixin 2.5mg po qhs, then increase to BID. continue olanzapine prn for agitation. olanzapine as well per court order. 03/03 pt seen by neurology, added HIV/RPR/LYME, can't have MRI due to cochlear implant. 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 Last Neurology appointment 01/2024. Missed appointment with rheumatology 05/2024, last seen in 02/26/2024. - Pt can't have MRI due to cochlear implant. Had head CT. - continue prolixin 2.5mg po daily, 5mg po qhs. will d/c risperidone, increase prolixin 5mg po BID, back up IM. 03/05 continue tx. 03/06 This sheet writer spoke with pt's roof tiler, Dr. Al obtained collateral information. Will coordinate with neurology and rheumatology once LP results are available. r/o reoccurance of pachymeningitis, lupus or other autoimmune cause for psychosis. 03/07: Continue current regimen and plans. Discontinued one-to-one and put in place 5 minute checks 03/08: Continue current plans and regimen 03/09 continue tx. 03/10: continue current mgmt. continues disorganized and psychotic. see neuro note from today. continue with neuro w/u. 03/11: given zyprexa 5 and valium [address] and head CTA. head CTA WNL, chest CT showed numerous pulmonary nodules up to 10 mm in size. no change in presentation. due to persistent requests for discharge, 3-day notice submitted on her behalf. will work toward HCP affirmation by the court. 03/12: per pulm consult, chest CT more c/w rheumatological process than CA, recommended empiric steroid course. awaiting input from neuro. consider Bx of nodules otherwise. continue current mgmt for now. 03/13: variably calm and agitated. planning for bronchoscopy with pulmonary nodule Bx on sunday. continue current mgmt. case discussed with HCP Maricruz (daughter), who is in agreement with plan. 03/14: CSF with notable findings. will f/u with neuro on sunday. stable presentation for now, remains quite psychotic. continue current mgmt. bronchoscopy sunday. 03/15: no change from yesterday in presentation or plan. 03/16: stable presentation. continues confused, wanting to go home. HCP affirmation tomorrow. continue current mgmt. 03/17: stable presdentation. bronchoscopy pending. continue current mgmt. 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 awaiting bronchoscopy. remains psychotic. continue current mgmt for now. 03/20: no change in presentation. still awaiting go-ahead for brochoscopy. continue current mgmt. 03/22: No changes. Noted above. 03/23: awaiting insurance approval for bronchoscopy. stable presentation. 03/24: as for yesterday. 03/25: loudly RIS in milieu today. bronchoscopy scheduled for sunday at 1130. NPO past MN night. stable presentation. continue current mgmt. 03/26 pt presents as more disorganized and inattentive than usual showing more signs of delirious behavior. bronchoscopy was canceled,due to shortage of needles to complete biopsy. will order cbc, cmp, ammonia levels given increase disorganized behavior and worsening attention pointing at a more delirious presentation. * Review of results from LP showing negative results for meningitis panel/paraneoplastic panel (including most common antibody found in SLC which is EARL 1 which was negative), elevated protein in CSF 131 without leukocytosis, also elevated CSF/serum IgG index. elevated anti-ds dna titer 1:80. Such results may point more to a rheumatological condition than infectious condition or malignancy. Mrs. Sharif's OP roof tiler, Dr. Al recommends trial of prednisone 40mg po daily at least for 2 weeks. 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 03/31 increase prolixin to 5mg po BID. continue all other medications including prednisone 40mg po daily. 04/01 discussed with her OP roof tiler, Dr. Al possibility of transferring to [facility] for further tx of autoimmune condition, suspected also having lupus. continue prednisone. Spoke with daughter who is HCP, daughter concern about pt going to [facility] due to being dismissed several times when pt was first brought psychotic. 04/02 continue tx 04/03 increase prolixin to 5mg po TID. monitor EPS. 04/06 continue tx. 04/07- pending response from [facility] to see if they will take her for further evaluation of autoimmune condition with multidisciplinary team to continue see if psychosis related to autoimmune or primarily psychosis. Some improvement in attention, less guarded. continues to have auditory hallucinations. May consider switch to clozapine given that she has tried 3 antipsychotics with limited efficacy. 04/08 start clozapine 25mg po qhs. continue prolixin 7.5mg po TID. 04/09 increase clozapine to 50mg po qhs. continue prolixin 7.5mg po TID. 04/10 decrease prolixin to 7.5mg po BID. increase clozapine to 75mg po qhs. continue increasing clozapine by 25mg/day. manager financial systems, recommends repeat CT in 2 weeks, and hold on bronchoscopy. 04/11: no change today, will titrate Clozapine further tomorrow 04/12: titrate Clozapine to 100 mg QHS 04/13 increase clozapine to 125mg po qhs. continue prolixin 7.5mg po BID. 04/14 Provided update to daughter Maricruz who is HCP in terms of pt being treated for both autoimmune condition that may be contributing to psychosis (with prednione) as well as primarily psychiatric disorder (although less likely) with clozapine. some improvement in attention, slightly less paranoid but continues to present with ongoing AH of her daughter. 04/15 continue tx. 04/16 continue tx. 04/17 start glycopyrralate for drooling, decrease cogentin. 04/17 increase clozapine 150mg po qhs, lower prolixin 2.5mg po BID. back up. 04/18: Continue current management and treatment plan. 04/19: continue current management and treatment plan. 04/20 increase clozapine to 175mg po qhs. 04/21 continue tx. 04/22 continue tx. Reason for continued inpatient stay Substantial Risk for: inability to function Time Spent With Patient Time: Total time managing care of this patient today ____ minutes.
[2025-04-22 19:59] VITALS: BP 137/65; PULSE 77; RESP 16; TEMP 36; O2SAT 97
[2025-04-22] MEDS: levETIRAcetam Oral Soln 500 MG/5 ML 250 MG PO (20:58)
[2025-04-23 08:09] LABS: Neut%MD 67.6 %; WBCANC 7.1 X10*3/uL
[2025-04-23 08:35] VITALS: BP 120/58; PULSE 68; RESP 18; O2SAT 99
[2025-04-23] MEDS: Tiotropium Bromide 2.5 mcg 1 PUFF/2.5 MCG MIST.INHAL INHALE (08:37)
[2025-04-23] MEDS: NIFEdipine ER 30 MG TAB.ER.24 PO (08:38)
[2025-04-23] MEDS: Fluticasone/Vilanterol 200/25 BLST.W.DEV 1 PUFF INHALE (08:40)
[2025-04-23] MEDS: levETIRAcetam Oral Soln 500 MG/5 ML 250 MG PO ×2 (08:41→19:47)
--- NOTE | 2025-04-23 09:51 | P.PNPSI_ITS ---
Subjective Subjective Date of Service: 04/23/25 Reason For Visit: Abnormal CT chest Subjective Notes: Section 8 Interim History: pt slept through the night. taking medications reporting some drooling still. She continues to self dialogued, not aware that cardboard that she is holding is not a phone. thinks this is the reason she hears her daugther. ability to function continues to be very impaired. Less paranoid but still delusions significantly affect her ability to function and reality testing. no SI/HI. Vs stable, eating well. Review of Systems Review of Systems Denies any shortness of breath, chest pain, dizziness, lightheadedness, abdominal pain or discomfort, nausea vomiting or diarrhea Yes all other systems are reviewed and are negative, Unobtainable due to mental condition, Unobtainable due to mental status and Other (patient refused to answer ROS questions) Constitutional: Reports as per HPI Eyes: Reports as per HPI Reports as per HPI Cardiovascular: Reports as per HPI Respiratory: Reports as per HPI Gastrointestinal: Reports as per HPI Musculoskeletal: Reports as per HPI Skin/Breast: Reports as per HPI Reports as per HPI and Reports confusion Psychiatric: Reports as per HPI and Reports confusion Endocrine: Reports as per HPI Hematologic/Lymphatic: Reports as per HPI Allergic/Immunologic: Reports as per HPI Mental Status Exam Mental Status Exam Narrative: Appearance: casual attire, adequate grooming and hygiene Behavior: calm, keeping to self, engagement limited by vision and hearing difficulties Orientation: alert, oriented to idea that she is in the hospital, year, month not date nor situation. Psychomotor Function: no agitation or slowing; no abnormal gestures or movements Speech: mostly clear, normal rate/rhythm/volume, spontaneous Mood: ok Affect: calm, non-labile Thought Process: more linear/organized. Thought Content: paranoid delusions of people coming to hurt others and attempting to hurt her Hallucinations: AH constantly talking to daughter who is not there. Delusions: paranoid delusions. Insight: impairment Judgment: impairment Impulsivity: none noted Diagnostics Vital Signs (24Hr): Vital Signs - 24 hr 04/22/25 19:59 04/23/25 08:35 Temperature 96.8 F Pulse Rate 77 68 Respiratory Rate 16 18 Blood Pressure 137/65 120/58 L Pulse Oximetry 97 99 Oxygen Delivery Method Room Air Room Air BMI result Body Mass Index 33.2 Labs 03/29/25 08:55 03/29/25 08:55 Labs: Laboratory Results - last 48 hr 04/23/25 07:22 Absolute Neuts (auto) 4.8 Imaging Radiology Impressions: ITS Impressions Head CT 03/05/25 15:51 IMPRESSION: 1. No acute intracranial abnormality. 2. Right-sided cochlear nerve implant with associated streak artifact. 3. Right-sided canal wall up mastoidectomy. Electronically signed by: Levi Greer MD 03/05/2025 04:25 PM EDT RP Lumbar Puncture Fluoroscopy 03/09/25 11:50 IMPRESSION: Successful fluoroscopy-guided lumbar puncture performed without immediate complications Electronically signed by: Thompson Andujar MD 03/09/2025 04:06 PM EDT RP Chest CT 03/11/25 11:52 IMPRESSION: 1. Multiple bilateral pulmonary nodules measuring up to 10 mm in size. Further evaluation should be based on Fleischner Society guidelines below. 2. Cardiomegaly. Findings consistent with pulmonary arterial hypertension. 3. No evidence of mediastinal or hilar lymphadenopathy. Fleischner Criteria for pulmonary nodule follow-up SOLID NODULES: Low risk patient: <6mm: no follow-up 6-8mm: 6 month follow-up CT >8mm: PET/Biopsy/ 3 month follow-up CT High risk patient: <6mm: 12 month follow-up CT 6-8mm: 6 month follow-up CT >8mm: PET/Biopsy/ 3 month follow-up CT SUB-SOLID/GROUNDGLASS NODULES: All patients: > or = 6mm: 6 month follow-up CT *Please note that in patients in the following categories, the Fleischner criteria do not apply: Immunocompromised, lung cancer screening population, age below 35, and patients with known malignancy Electronically signed by: Best Clemons MD 03/11/2025 01:45 PM EDT RP Head CTA 03/11/25 11:52 IMPRESSION: Head CT: No acute intracranial abnormality. CT angiogram of the head: No vascular occlusions. Electronically signed by: Gypsy Salamanca MD 03/11/2025 03:02 PM EDT RP Medications Medications Current Medications Acetaminophen (Acetaminophen 325 Mg Tablet) 650 mg PO Q6H PRN PRN Reason: Headache/Pain, Scale 1-10 Last Admin: 04/21/25 09:07 Dose: 650 mg Al Hydroxide/Mg Hydroxide (Magnesium Hydrox/Alum Hydrox 30 Ml Oral.Susp) 30 ml PO Q6H PRN PRN Reason: Heartburn/Nausea Albuterol Sulfate (Albuterol Sulfate 90 Mcg 8 Gm Inhaler) 2 puff INHALE Q4H PRN PRN Reason: Shortness Of Breath Or Wheezing Atorvastatin Calcium (Atorvastatin Calcium 40 Mg Tablet) 40 mg PO DAILY [facility] Last Admin: 04/23/25 08:38 Dose: 40 mg Clonazepam (Clonazepam Odt 0.5 Mg Tab.Rapdis) 0.5 mg PO BID PRN PRN Reason: severe anxiety/sleep Last Admin: 03/31/25 20:37 Dose: 0.5 mg Clozapine 100 mg/ Clozapine 75 (mg) 175 mg PO BEDTIME [facility] Last Admin: 04/22/25 20:00 Dose: 175 mg Fluphenazine HCl (Fluphenazine Hcl 2.5 Mg/Ml 10 Ml Vial) 2.5 mg IM BID PRN PRN Reason: give if refuses oral per HCP Last Admin: 03/05/25 09:42 Dose: 2.5 mg Fluphenazine HCl (Fluphenazine Hcl 2.5 Mg Tablet) 2.5 mg PO BID [facility] Last Admin: 04/23/25 08:37 Dose: 2.5 mg Fluticasone/Vilanterol (Fluticasone/Vilanterol 200/25 Blst.W.Dev) 1 puff INHALE RDAILY [facility] Last Admin: 04/23/25 08:40 Dose: 1 puff Glycopyrrolate (Glycopyrrolate 1 Mg Tablet) 0.5 mg PO BID [facility] Last Admin: 04/23/25 08:39 Dose: 0.5 mg Guaifenesin (Guaifenesin 200 Mg/10 Ml 10 Ml Liquid) 10 ml PO Q6H PRN PRN Reason: Cough Hydrochlorothiazide (Hydrochlorothiazide 25 Mg Tablet) 25 mg PO DAILY [facility] Last Admin: 04/23/25 08:39 Dose: 25 mg Levetiracetam (Levetiracetam Oral Soln 500 Mg/5 Ml) 250 mg PO BID [facility] Last Admin: 04/23/25 08:41 Dose: 250 mg Magnesium Hydroxide (Milk Of Magnesia 30 Ml Oral.Susp) 30 ml PO DAILY PRN PRN Reason: Constipation Methimazole (Methimazole 5 Mg Tablet) 5 mg PO DAILY [facility] Last Admin: 04/23/25 08:37 Dose: 5 mg Naloxone HCl (Naloxone Hcl 0.4 Mg/Ml Vial) 0.04 mg IVPUSH Q5M PRN PRN Reason: Excessive sedation or RR < 8 Nifedipine (Nifedipine Er 30 Mg Tab.Er.24) 30 mg PO DAILY [facility]; Protocol Last Admin: 04/23/25 08:38 Dose: 30 mg Olanzapine (Olanzapine 10 Mg Tablet) 10 mg PO Q6H PRN PRN Reason: severe agitation Last Admin: 04/16/25 16:28 Dose: 10 mg Prednisone (Prednisone 20 Mg Tablet) 40 mg PO DAILY [facility] Last Admin: 04/23/25 08:38 Dose: 40 mg Tiotropium [place] (Tiotropium [place] 2.5 Mcg 1 Puff/2.5 Mcg Mist.Inhal) 1 puff INHALE RDAILY [facility] Last Admin: 04/23/25 08:37 Dose: 1 puff Trazodone HCl (Trazodone Hcl 50 Mg Tablet) 50 mg PO BEDTIME MRX1 PRN PRN Reason: Insomnia Last Admin: 04/04/25 23:21 Dose: 50 mg Allergies Allergies Allergy/AdvReac Type Severity Reaction Status Date / Time latex Allergy Unknown Verified 03/09/25 11:50 peanut Allergy Unknown Verified 03/09/25 11:50 Penicillins Allergy Unknown Verified 03/09/25 11:50 Assessment & Plan Assessment & Plan (1) Psychosis: Status: Acute Code(s): F29 - Unspecified psychosis not due to a substance or known physiological condition Assessment and Plan: r/o autoimmune reasons for psychosis including lupus. (2) Pulmonary nodules: Status: Acute Code(s): R91.8 - Other nonspecific abnormal finding of lung field Assessment and Plan: Bloodwork Per rail car operator on 04/13/2025- repeat chest CT in 2 weeks after 4 week course of prednisone and reassess need for bronchoscopy. (3) Rheumatoid arthritis involving hand with positive rheumatoid factor: Status: Acute Code(s): M05.749 - Rheumatoid arthritis with rheumatoid factor of unspecified hand without organ or systems involvement Plan Mrs. Sharif is a 69 year-old woman who presents with a 3 month hx of new onset of psychosis (AH) and combination of paranoid delusions and cap gras delusions. No prior psychiatric hx. She does have of cocaine use but apparently had not used in some years. Daughter suspects she may have relapsed but no ongoing use. Pt presents with more complex theme of delusions. No additional medical work up available including head CT. CBC and cmp unremarkable. 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 It may be related to dementia process but complexity of delusions and psychosis not the common presentation for dementia that have psychosis early on such as in vascular dementia or LBD. Pt presents as gravely disable to able to care for self due to symptoms of psychosis and delusions. 02/03 increase night time risperidone 2mg po qhs increase cogetin at bedtime to 1mg po qhs. lower daily dose to 0.5mg po daily. continue cogentin 0.5mg po daily. clonazepam as prn olanzapine as prn for agitation 02/04 continue tx. 02/05 continue tx. 02/06 continue current dose of risperidone. NOTE THAT pt can't take doses higher than 3 mg/day of risperidone as higher doses had severe EPS. can use olanzapine as well per court order. 02/07/25: Patient has been agitated yelling loudly exist seeking, delusional thinking her daughter/son outside at the door to pick her up. PRNs given in the morning with mild effect. Patient became agitated, aggressive\, assaultive to 1 of the staff on the floor, yelling and hitting her face so grabbing her neck. Physical was started at 16:31 to 1634. Patient was given IM medication of Zyprexa 10 and Valium 10 with good effect. Tomorrow plan: Patient will be benefit from Valium 10 mg twice a day and Zyprexa 5 mg 3 times a day is added into her scheduled medication as current plan with risperidone is not effective. Patient also having a backup for risperidone if she refused. 02/08/25: Slept most of the morning and last night. In better behavior control. No aggressive behavior. She is quiet, self dialogue, and medication compliant. Due to receive restrain medication yesterday. I did not make any medication change. But the Valium and additional Zyprexa appears to be helpful. 02/09 will try to change keppra to depakote for seizures as keppra may exacerbate psychosis. increase risperidone 1mg po daily and 2mg po qhs. may need to add second antipsychotic. 02/10 continues to present as paranoid with AH. at times declines oral medications, requiring IM back per court order. 02/11 continue tx. 02/12 continue tx. 02/13 continue tx. 02/14: no changes today. Monitor for agitation around confusion about hospitalization 02/15: no changes today, self dialogue more overt/extensive today 02/16 add olanzapine 5mg po qhs. continue risperidone. minimal improvement if any. 02/17 continue tx. 02/18 seems more somnolent with bedtime olanzapine, will continue to monitor. 02/19 cbc showed thrombocytopenia, which is new and suspect related to depakote 02/20 pt appears more sedated since addition of olanzapine at bedtime. She continues to self dialogue. minimal improvement. 02/21: Continue current management and treatment plan. 02/22: continue current management and treatment plan. 02/23 continue tx. may need to affirm HCP try different antipsychotic. 02/24 continue tx. results of LENORE 1:360, pattern homogenous A. 02/25 will try rexulti, lower risperidone. pending coordination of medical care to see if underlying autoimmune condition has anything to do with current presentation. 02/26 discussed with hospital traffic law attorney to dismiss sect 8, HCP invoked and can consent to other treatment. daughter Maricruz give permission to try different antipsychotic. 02/27 decrease risperidone to 1mg po daily, start prolixin 2.5mg po qhs, then increase to BID. continue olanzapine prn for agitation. olanzapine as well per court order. 03/03 pt seen by neurology, added HIV/RPR/LYME, can't have MRI due to cochlear implant. 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 Last Neurology appointment 01/2024. Missed appointment with rheumatology 05/2024, last seen in 02/26/2024. - Pt can't have MRI due to cochlear implant. Had head CT. - continue prolixin 2.5mg po daily, 5mg po qhs. will d/c risperidone, increase prolixin 5mg po BID, back up IM. 03/05 continue tx. 03/06 This speech writer spoke with pt's desk monitor, Dr. Al obtained collateral information. Will coordinate with neurology and rheumatology once LP results are available. r/o reoccurance of pachymeningitis, lupus or other autoimmune cause for psychosis. 03/07: Continue current regimen and plans. Discontinued one-to-one and put in place 5 minute checks 03/08: Continue current plans and regimen 03/09 continue tx. 03/10: continue current mgmt. continues disorganized and psychotic. see neuro note from today. continue with neuro w/u. 03/11: given zyprexa 5 and valium [address] and head CTA. head CTA WNL, chest CT showed numerous pulmonary nodules up to 10 mm in size. no change in presentation. due to persistent requests for discharge, 3-day notice submitted on her behalf. will work toward HCP affirmation by the court. 03/12: per pulm consult, chest CT more c/w rheumatological process than CA, recommended empiric steroid course. awaiting input from neuro. consider Bx of nodules otherwise. continue current mgmt for now. 03/13: variably calm and agitated. planning for bronchoscopy with pulmonary nodule Bx on sunday. continue current mgmt. case discussed with HCP Maricruz (daughter), who is in agreement with plan. 03/14: CSF with notable findings. will f/u with neuro on sunday. stable presentation for now, remains quite psychotic. continue current mgmt. bronchoscopy sunday. 03/15: no change from yesterday in presentation or plan. 03/16: stable presentation. continues confused, wanting to go home. HCP affirmation tomorrow. continue current mgmt. 03/17: stable presdentation. bronchoscopy pending. continue current mgmt. 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 awaiting bronchoscopy. remains psychotic. continue current mgmt for now. 03/20: no change in presentation. still awaiting go-ahead for brochoscopy. continue current mgmt. 03/22: No changes. Noted above. 03/23: awaiting insurance approval for bronchoscopy. stable presentation. 03/24: as for yesterday. 03/25: loudly RIS in milieu today. bronchoscopy scheduled for sunday at 1130. NPO past MN night. stable presentation. continue current mgmt. 03/26 pt presents as more disorganized and inattentive than usual showing more signs of delirious behavior. bronchoscopy was canceled,due to shortage of needles to complete biopsy. will order cbc, cmp, ammonia levels given increase disorganized behavior and worsening attention pointing at a more delirious presentation. * Review of results from LP showing negative results for meningitis panel/paraneoplastic panel (including most common antibody found in SLC which is EARL 1 which was negative), elevated protein in CSF 131 without leukocytosis, also elevated CSF/serum IgG index. elevated anti-ds dna titer 1:80. Such results may point more to a rheumatological condition than infectious condition or malignancy. Mrs. Sharif's OP desk monitor, Dr. Al recommends trial of prednisone 40mg po daily at least for 2 weeks. 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 03/31 increase prolixin to 5mg po BID. continue all other medications including prednisone 40mg po daily. 04/01 discussed with her OP desk monitor, Dr. Al possibility of transferring to [facility] for further tx of autoimmune condition, suspected also having lupus. continue prednisone. Spoke with daughter who is HCP, daughter concern about pt going to [facility] [place] due to being dismissed several times when pt was first brought psychotic. 04/02 continue tx 04/03 increase prolixin to 5mg po TID. monitor EPS. 04/06 continue tx. 04/07- pending response from [facility] [place] to see if they will take her for further evaluation of autoimmune condition with multidisciplinary team to continue see if psychosis related to autoimmune or primarily psychosis. Some improvement in attention, less guarded. continues to have auditory hallucinations. May consider switch to clozapine given that she has tried 3 antipsychotics with limited efficacy. 04/08 start clozapine 25mg po qhs. continue prolixin 7.5mg po TID. 04/09 increase clozapine to 50mg po qhs. continue prolixin 7.5mg po TID. 04/10 decrease prolixin to 7.5mg po BID. increase clozapine to 75mg po qhs. continue increasing clozapine by 25mg/day. rail car operator, recommends repeat CT in 2 weeks, and hold on bronchoscopy. 04/11: no change today, will titrate Clozapine further tomorrow 04/12: titrate Clozapine to 100 mg QHS 04/13 increase clozapine to 125mg po qhs. continue prolixin 7.5mg po BID. 04/14 Provided update to daughter Maricruz who is HCP in terms of pt being treated for both autoimmune condition that may be contributing to psychosis (with prednione) as well as primarily psychiatric disorder (although less likely) with clozapine. some improvement in attention, slightly less paranoid but continues to present with ongoing AH of her daughter. 04/15 continue tx. 04/16 continue tx. 04/17 start glycopyrralate for drooling, decrease cogentin. 04/17 increase clozapine 150mg po qhs, lower prolixin 2.5mg po BID. back up. 04/18: Continue current management and treatment plan. 04/19: continue current management and treatment plan. 04/20 increase clozapine to 175mg po qhs. 04/21 continue tx. 04/22 continue tx. 04/23 continue tx. will check clozapine levels. Reason for continued inpatient stay Substantial Risk for: inability to function Time Spent With Patient Time: Total time managing care of this patient today ____ minutes.
[2025-04-23 10:31] VITALS: BMI 32.3
[2025-04-23 13:08] VITALS: TEMP 36
[2025-04-23 19:46] VITALS: BP 101/50; PULSE 72; RESP 16; TEMP 35.9; O2SAT 93
[2025-04-24 08:34] VITALS: BP 130/60; PULSE 70; RESP 16; O2SAT 96
[2025-04-24] MEDS: levETIRAcetam Oral Soln 500 MG/5 ML 250 MG PO ×2 (08:36→20:26)
[2025-04-24] MEDS: NIFEdipine ER 30 MG TAB.ER.24 PO (08:37)
[2025-04-24] MEDS: Tiotropium Bromide 2.5 mcg 1 PUFF/2.5 MCG MIST.INHAL INHALE (08:39)
[2025-04-24] MEDS: Fluticasone/Vilanterol 200/25 BLST.W.DEV 1 PUFF INHALE (08:40)
--- NOTE | 2025-04-24 17:09 | P.PNPSI_ITS ---
Subjective Subjective Date of Service: 04/24/25 Reason For Visit: Abnormal CT chest Subjective Notes: Section 7 Healthcare Proxy: Yes Interim History: pt slept through the night. taking medications reporting some drooling still. She continues to self dialogued, not aware that cardboard that she is holding is not a phone. thinks this is the reason she hears her daugther. ability to function continues to be very impaired. Less paranoid but still delusions significantly affect her ability to function and reality testing. no SI/HI. Vs stable, eating well. Pt had chest CT as f/u from last one that showed several nodules, seems like they disapeared showing more inflamatory/infections etiology. Review of Systems Review of Systems Denies any shortness of breath, chest pain, dizziness, lightheadedness, abdominal pain or discomfort, nausea vomiting or diarrhea Yes all other systems are reviewed and are negative, Unobtainable due to mental condition, Unobtainable due to mental status and Other (patient refused to answer ROS questions) Constitutional: Reports as per HPI Eyes: Reports as per HPI Reports as per HPI Cardiovascular: Reports as per HPI Respiratory: Reports as per HPI Gastrointestinal: Reports as per HPI Musculoskeletal: Reports as per HPI Skin/Breast: Reports as per HPI Reports as per HPI and Reports confusion Psychiatric: Reports as per HPI and Reports confusion Endocrine: Reports as per HPI Hematologic/Lymphatic: Reports as per HPI Allergic/Immunologic: Reports as per HPI Mental Status Exam Mental Status Exam Narrative: Appearance: casual attire, adequate grooming and hygiene Behavior: calm, keeping to self, engagement limited by vision and hearing difficulties Orientation: alert, oriented to idea that she is in the hospital, year, month not date nor situation. Psychomotor Function: no agitation or slowing; no abnormal gestures or movements Speech: mostly clear, normal rate/rhythm/volume, spontaneous Mood: ok Affect: calm, non-labile Thought Process: more linear/organized. Thought Content: paranoid delusions of people coming to hurt others and attempting to hurt her Hallucinations: AH constantly talking to daughter who is not there. Delusions: paranoid delusions. Insight: impairment Judgment: impairment Impulsivity: none noted Diagnostics Vital Signs (24Hr): Vital Signs - 24 hr 04/23/25 19:46 04/24/25 08:34 Temperature 96.7 F L Pulse Rate 72 70 Respiratory Rate 16 16 Blood Pressure 101/50 L 130/60 Pulse Oximetry 93 96 Oxygen Delivery Method Room Air Room Air BMI result Body Mass Index 32.3 Labs 03/29/25 08:55 03/29/25 08:55 Labs: Laboratory Results - last 48 hr 04/23/25 07:22 Absolute Neuts (auto) 4.8 Imaging Radiology Impressions: ITS Impressions Head CT 03/05/25 15:51 IMPRESSION: 1. No acute intracranial abnormality. 2. Right-sided cochlear nerve implant with associated streak artifact. 3. Right-sided canal wall up mastoidectomy. Electronically signed by: Levi Greer MD 03/05/2025 04:25 PM EDT RP Lumbar Puncture Fluoroscopy 03/09/25 11:50 IMPRESSION: Successful fluoroscopy-guided lumbar puncture performed without immediate complications Electronically signed by: Thompson Andujar MD 03/09/2025 04:06 PM EDT RP Chest CT 03/11/25 11:52 IMPRESSION: 1. Multiple bilateral pulmonary nodules measuring up to 10 mm in size. Further evaluation should be based on Fleischner Society guidelines below. 2. Cardiomegaly. Findings consistent with pulmonary arterial hypertension. 3. No evidence of mediastinal or hilar lymphadenopathy. Fleischner Criteria for pulmonary nodule follow-up SOLID NODULES: Low risk patient: <6mm: no follow-up 6-8mm: 6 month follow-up CT >8mm: PET/Biopsy/ 3 month follow-up CT High risk patient: <6mm: 12 month follow-up CT 6-8mm: 6 month follow-up CT >8mm: PET/Biopsy/ 3 month follow-up CT SUB-SOLID/GROUNDGLASS NODULES: All patients: > or = 6mm: 6 month follow-up CT *Please note that in patients in the following categories, the Fleischner criteria do not apply: Immunocompromised, lung cancer screening population, age below 35, and patients with known malignancy Electronically signed by: Best Clemons MD 03/11/2025 01:45 PM EDT RP Head CTA 03/11/25 11:52 IMPRESSION: Head CT: No acute intracranial abnormality. CT angiogram of the head: No vascular occlusions. Electronically signed by: Gypsy Salamanca MD 03/11/2025 03:02 PM EDT RP Chest CT 04/24/25 09:58 IMPRESSION: 1. Majority of the previously seen pulmonary nodules have resolved, and were consistent with infectious or inflammatory etiology. 2. There is a persistent 9 mm nodular focus in the lateral right upper lobe, which is felt to represent scarring given the appearance. To be cautious, a 3 month interval follow-up CT is recommended to ensure stability. 3. There is mild to moderate paraseptal emphysema. There is no acute pneumonic consolidation. 4. There is thickening of the small airways suggesting bronchitis. 5. There is moderate cardiac enlargement. Enlarged main pulmonary artery is consistent with pulmonary arterial hypertension. Electronically signed by: Levi Greer MD 04/24/2025 10:56 AM EDT RP Medications Medications Current Medications Acetaminophen (Acetaminophen 325 Mg Tablet) 650 mg PO Q6H PRN PRN Reason: Headache/Pain, Scale 1-10 Last Admin: 04/21/25 09:07 Dose: 650 mg Al Hydroxide/Mg Hydroxide (Magnesium Hydrox/Alum Hydrox 30 Ml Oral.Susp) 30 ml PO Q6H PRN PRN Reason: Heartburn/Nausea Albuterol Sulfate (Albuterol Sulfate 90 Mcg 8 Gm Inhaler) 2 puff INHALE Q4H PRN PRN Reason: Shortness Of Breath Or Wheezing Atorvastatin Calcium (Atorvastatin Calcium 40 Mg Tablet) 40 mg PO DAILY [facility] Last Admin: 04/24/25 08:37 Dose: 40 mg Clonazepam (Clonazepam Odt 0.5 Mg Tab.Rapdis) 0.5 mg PO BID PRN PRN Reason: severe anxiety/sleep Last Admin: 03/31/25 20:37 Dose: 0.5 mg Clozapine 100 mg/ Clozapine 75 (mg) 175 mg PO BEDTIME [facility] Last Admin: 04/23/25 19:49 Dose: 175 mg Fluphenazine HCl (Fluphenazine Hcl 2.5 Mg/Ml 10 Ml Vial) 2.5 mg IM BID PRN PRN Reason: give if refuses oral per HCP Last Admin: 03/05/25 09:42 Dose: 2.5 mg Fluphenazine HCl (Fluphenazine Hcl 2.5 Mg Tablet) 2.5 mg PO BID [facility] Last Admin: 04/24/25 08:37 Dose: 2.5 mg Fluticasone/Vilanterol (Fluticasone/Vilanterol 200/25 Blst.W.Dev) 1 puff INHALE RDAILY [facility] Last Admin: 04/24/25 08:40 Dose: 1 puff Glycopyrrolate (Glycopyrrolate 1 Mg Tablet) 0.5 mg PO BID [facility] Last Admin: 04/24/25 08:37 Dose: 0.5 mg Guaifenesin (Guaifenesin 200 Mg/10 Ml 10 Ml Liquid) 10 ml PO Q6H PRN PRN Reason: Cough Hydrochlorothiazide (Hydrochlorothiazide 25 Mg Tablet) 25 mg PO DAILY [facility] Last Admin: 04/24/25 08:37 Dose: 25 mg Levetiracetam (Levetiracetam Oral Soln 500 Mg/5 Ml) 250 mg PO BID [facility] Last Admin: 04/24/25 08:36 Dose: 250 mg Magnesium Hydroxide (Milk Of Magnesia 30 Ml Oral.Susp) 30 ml PO DAILY PRN PRN Reason: Constipation Methimazole (Methimazole 5 Mg Tablet) 5 mg PO DAILY [facility] Last Admin: 04/24/25 08:37 Dose: 5 mg Naloxone HCl (Naloxone Hcl 0.4 Mg/Ml Vial) 0.04 mg IVPUSH Q5M PRN PRN Reason: Excessive sedation or RR < 8 Nifedipine (Nifedipine Er 30 Mg Tab.Er.24) 30 mg PO DAILY [facility]; Protocol Last Admin: 04/24/25 08:37 Dose: 30 mg Olanzapine (Olanzapine 10 Mg Tablet) 10 mg PO Q6H PRN PRN Reason: severe agitation Last Admin: 04/16/25 16:28 Dose: 10 mg Prednisone (Prednisone 20 Mg Tablet) 40 mg PO DAILY [facility] Last Admin: 04/24/25 08:37 Dose: 40 mg Tiotropium Vivian (Tiotropium Vivian 2.5 Mcg 1 Puff/2.5 Mcg Mist.Inhal) 1 puff INHALE RDAILY [facility] Last Admin: 04/24/25 08:39 Dose: 1 puff Trazodone HCl (Trazodone Hcl 50 Mg Tablet) 50 mg PO BEDTIME MRX1 PRN PRN Reason: Insomnia Last Admin: 04/04/25 23:21 Dose: 50 mg Allergies Allergies Allergy/AdvReac Type Severity Reaction Status Date / Time latex Allergy Unknown Verified 03/09/25 11:50 peanut Allergy Unknown Verified 03/09/25 11:50 Penicillins Allergy Unknown Verified 03/09/25 11:50 Assessment & Plan Assessment & Plan (1) Psychosis: Status: Acute Code(s): F29 - Unspecified psychosis not due to a substance or known physiological condition Assessment and Plan: r/o autoimmune reasons for psychosis including lupus. (2) Pulmonary nodules: Status: Acute Code(s): R91.8 - Other nonspecific abnormal finding of lung field Assessment and Plan: Bloodwork Per weight loss consultant on 04/13/2025- repeat chest CT in 2 weeks after 4 week course of prednisone and reassess need for bronchoscopy. (3) Rheumatoid arthritis involving hand with positive rheumatoid factor: Status: Acute Code(s): M05.749 - Rheumatoid arthritis with rheumatoid factor of unspecified hand without organ or systems involvement Plan Mrs. Sharif is a 69 year-old woman who presents with a 3 month hx of new onset of psychosis (AH) and combination of paranoid delusions and cap gras delusions. No prior psychiatric hx. She does have of cocaine use but apparently had not used in some years. Daughter suspects she may have relapsed but no ongoing use. Pt presents with more complex theme of delusions. No additional medical work up available including head CT. CBC and cmp unremarkable. 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 It may be related to dementia process but complexity of delusions and psychosis not the common presentation for dementia that have psychosis early on such as in vascular dementia or LBD. Pt presents as gravely disable to able to care for self due to symptoms of psychosis and delusions. 02/03 increase night time risperidone 2mg po qhs increase cogetin at bedtime to 1mg po qhs. lower daily dose to 0.5mg po daily. continue cogentin 0.5mg po daily. clonazepam as prn olanzapine as prn for agitation 02/04 continue tx. 02/05 continue tx. 02/06 continue current dose of risperidone. NOTE THAT pt can't take doses higher than 3 mg/day of risperidone as higher doses had severe EPS. can use olanzapine as well per court order. 02/07/25: Patient has been agitated yelling loudly exist seeking, delusional thinking her daughter/son outside at the door to pick her up. PRNs given in the morning with mild effect. Patient became agitated, aggressive\, assaultive to 1 of the staff on the floor, yelling and hitting her face so grabbing her neck. Physical was started at 16:31 to 1634. Patient was given IM medication of Zyprexa 10 and Valium 10 with good effect. Tomorrow plan: Patient will be benefit from Valium 10 mg twice a day and Zyprexa 5 mg 3 times a day is added into her scheduled medication as current plan with risperidone is not effective. Patient also having a backup for risperidone if she refused. 02/08/25: Slept most of the morning and last night. In better behavior control. No aggressive behavior. She is quiet, self dialogue, and medication compliant. Due to receive restrain medication yesterday. I did not make any medication change. But the Valium and additional Zyprexa appears to be helpful. 02/09 will try to change keppra to depakote for seizures as keppra may exacerbate psychosis. increase risperidone 1mg po daily and 2mg po qhs. may need to add second antipsychotic. 02/10 continues to present as paranoid with AH. at times declines oral medications, requiring IM back per court order. 02/11 continue tx. 02/12 continue tx. 02/13 continue tx. 02/14: no changes today. Monitor for agitation around confusion about hospitalization 02/15: no changes today, self dialogue more overt/extensive today 02/16 add olanzapine 5mg po qhs. continue risperidone. minimal improvement if any. 02/17 continue tx. 02/18 seems more somnolent with bedtime olanzapine, will continue to monitor. 02/19 cbc showed thrombocytopenia, which is new and suspect related to depakote 02/20 pt appears more sedated since addition of olanzapine at bedtime. She continues to self dialogue. minimal improvement. 02/21: Continue current management and treatment plan. 02/22: continue current management and treatment plan. 02/23 continue tx. may need to affirm HCP try different antipsychotic. 02/24 continue tx. results of LENORE 1:360, pattern homogenous A. 02/25 will try rexulti, lower risperidone. pending coordination of medical care to see if underlying autoimmune condition has anything to do with current presentation. 02/26 discussed with hospital continuous improvement intern to dismiss sect 8, HCP invoked and can consent to other treatment. daughter Maricruz give permission to try different antipsychotic. 02/27 decrease risperidone to 1mg po daily, start prolixin 2.5mg po qhs, then increase to BID. continue olanzapine prn for agitation. olanzapine as well per court order. 03/03 pt seen by neurology, added HIV/RPR/LYME, can't have MRI due to cochlear implant. 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 Last Neurology appointment 01/2024. Missed appointment with rheumatology 05/2024, last seen in 02/26/2024. - Pt can't have MRI due to cochlear implant. Had head CT. - continue prolixin 2.5mg po daily, 5mg po qhs. will d/c risperidone, increase prolixin 5mg po BID, back up IM. 03/05 continue tx. 03/06 This freelance writer spoke with pt's director embalmer, Dr. Al obtained collateral information. Will coordinate with neurology and rheumatology once LP results are available. r/o reoccurance of pachymeningitis, lupus or other autoimmune cause for psychosis. 03/07: Continue current regimen and plans. Discontinued one-to-one and put in place 5 minute checks 03/08: Continue current plans and regimen 03/09 continue tx. 03/10: continue current mgmt. continues disorganized and psychotic. see neuro note from today. continue with neuro w/u. 03/11: given zyprexa 5 and valium [address] and head CTA. head CTA WNL, chest CT showed numerous pulmonary nodules up to 10 mm in size. no change in presentation. due to persistent requests for discharge, 3-day notice submitted on her behalf. will work toward HCP affirmation by the court. 03/12: per pulm consult, chest CT more c/w rheumatological process than CA, recommended empiric steroid course. awaiting input from neuro. consider Bx of nodules otherwise. continue current mgmt for now. 03/13: variably calm and agitated. planning for bronchoscopy with pulmonary nodule Bx on sunday. continue current mgmt. case discussed with HCP Maricruz (daughter), who is in agreement with plan. 03/14: CSF with notable findings. will f/u with neuro on sunday. stable presentation for now, remains quite psychotic. continue current mgmt. bronchoscopy sunday. 03/15: no change from yesterday in presentation or plan. 03/16: stable presentation. continues confused, wanting to go home. HCP affirmation tomorrow. continue current mgmt. 03/17: stable presdentation. bronchoscopy pending. continue current mgmt. 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 awaiting bronchoscopy. remains psychotic. continue current mgmt for now. 03/20: no change in presentation. still awaiting go-ahead for brochoscopy. continue current mgmt. 03/22: No changes. Noted above. 03/23: awaiting insurance approval for bronchoscopy. stable presentation. 03/24: as for yesterday. 03/25: loudly RIS in milieu today. bronchoscopy scheduled for sunday at 1130. NPO past MN night. stable presentation. continue current mgmt. 03/26 pt presents as more disorganized and inattentive than usual showing more signs of delirious behavior. bronchoscopy was canceled,due to shortage of needles to complete biopsy. will order cbc, cmp, ammonia levels given increase disorganized behavior and worsening attention pointing at a more delirious presentation. * Review of results from LP showing negative results for meningitis panel/paraneoplastic panel (including most common antibody found in SLC which is EARL 1 which was negative), elevated protein in CSF 131 without leukocytosis, also elevated CSF/serum IgG index. elevated anti-ds dna titer 1:80. Such results may point more to a rheumatological condition than infectious condition or malignancy. Mrs. Sharif's OP director embalmer, Dr. Al recommends trial of prednisone 40mg po daily at least for 2 weeks. 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 03/31 increase prolixin to 5mg po BID. continue all other medications including prednisone 40mg po daily. 04/01 discussed with her OP director embalmer, Dr. Al possibility of transferring to [facility] for further tx of autoimmune condition, suspected also having lupus. continue prednisone. Spoke with daughter who is HCP, daughter concern about pt going to [facility] due to being dismissed several times when pt was first brought psychotic. 04/02 continue tx 04/03 increase prolixin to 5mg po TID. monitor EPS. 04/06 continue tx. 04/07- pending response from [facility] to see if they will take her for further evaluation of autoimmune condition with multidisciplinary team to continue see if psychosis related to autoimmune or primarily psychosis. Some improvement in attention, less guarded. continues to have auditory hallucinations. May consider switch to clozapine given that she has tried 3 antipsychotics with limited efficacy. 04/08 start clozapine 25mg po qhs. continue prolixin 7.5mg po TID. 04/09 increase clozapine to 50mg po qhs. continue prolixin 7.5mg po TID. 04/10 decrease prolixin to 7.5mg po BID. increase clozapine to 75mg po qhs. continue increasing clozapine by 25mg/day. weight loss consultant, recommends repeat CT in 2 weeks, and hold on bronchoscopy. 04/11: no change today, will titrate Clozapine further tomorrow 04/12: titrate Clozapine to 100 mg QHS 04/13 increase clozapine to 125mg po qhs. continue prolixin 7.5mg po BID. 04/14 Provided update to daughter Maricruz who is HCP in terms of pt being treated for both autoimmune condition that may be contributing to psychosis (with prednione) as well as primarily psychiatric disorder (although less likely) with clozapine. some improvement in attention, slightly less paranoid but continues to present with ongoing AH of her daughter. 04/15 continue tx. 04/16 continue tx. 04/17 start glycopyrralate for drooling, decrease cogentin. 04/17 increase clozapine 150mg po qhs, lower prolixin 2.5mg po BID. back up. 04/18: Continue current management and treatment plan. 04/19: continue current management and treatment plan. 04/20 increase clozapine to 175mg po qhs. 04/21 continue tx. 04/22 continue tx. 04/23 continue tx. will check clozapine levels. 04/[address] followed up done today- much less nodules seen. Reason for continued inpatient stay Substantial Risk for: inability to function Time Spent With Patient Time: Total time managing care of this patient today ____ minutes.
[2025-04-24 20:00] VITALS: BP 102/56; PULSE 80; RESP 16; TEMP 36.8; O2SAT 93
[2025-04-25 07:55] VITALS: BP 118/62; PULSE 65; RESP 18; TEMP 36.6; O2SAT 94
[2025-04-25] MEDS: NIFEdipine ER 30 MG TAB.ER.24 PO (08:52)
[2025-04-25] MEDS: levETIRAcetam Oral Soln 500 MG/5 ML 250 MG PO ×2 (08:53→20:45)
[2025-04-25] MEDS: Tiotropium Bromide 2.5 mcg 1 PUFF/2.5 MCG MIST.INHAL INHALE (08:58)
[2025-04-25] MEDS: Fluticasone/Vilanterol 200/25 BLST.W.DEV 1 PUFF INHALE (08:58)
--- NOTE | 2025-04-25 10:51 | P.PNPL_ITS ---
Subjective Subjective Date of Service: 04/25/25 Interval history: Results of CT chest reviewed, overall improved pulmonary nodularity with essentially no respiratory symptoms. Objective Data Labs 03/29/25 08:55 03/29/25 08:55 Microbiology Microbiology Results: Microbiology 03/09/25 12:40 Cerebrospinal Fluid Gram Stain - Final 03/09/25 12:40 Cerebrospinal Fluid Fluid Description - Final 03/09/25 12:40 Cerebrospinal Fluid CSF Culture - Final No growth after 3 days. Physical Exam 2 Vital Signs: Vital Signs: Last Vital Signs Temp 98.2 F 04/24/25 20:00 Pulse 80 04/24/25 20:00 Resp 16 04/24/25 20:00 BP 102/56 L 04/24/25 20:00 Pulse Ox 93 04/24/25 20:00 O2 Del Method Room Air 04/24/25 20:00 BMI result Body Mass Index 32.3 Const: General: no acute distress, alert and awake Eyes: Sclerae: sclerae normal EOM: EOMs intact bilaterally Neck: Neck: Yes no lymphadenopathy, Yes trachea midline and Yes supple Resp: Effort & Inspection: normal respiratory effort and no respiratory distress Auscultation: clear to auscultation bilaterally Cardio: Rate: regular rate Rhythm: regular rhythm Heart sounds: no gallops, no murmurs and no rubs GI: Palpation (GI): Soft to palpation and Other GI palpation findings present ( Nontender) Auscultation: normal bowel sounds Extrem: General: Yes no pedal edema, No clubbing and No cyanosis Procedures Date of Service Date of Service: 04/25/25 Assessment and Plan Assessment and plan (1) Pulmonary nodules: Status: Acute (2) Rheumatoid arthritis involving hand with positive rheumatoid factor: Status: Acute Plan Impression: 69-year-old lady with rheumatoid arthritis and incidentally noted pulmonary nodules treated with a course of systemic glucocorticoids with improvement in her pulmonary nodules and absence of pulmonary symptoms otherwise. Recommendation: Would suggest slow titration off systemic glucocorticoids by 10 mg every week. Would suggest repeating CT chest in 3 months to evaluate for stability of underlying remaining nodules. Time Spent With Patient Time: Total time managing care of this patient today ____ minutes. Progress Note: Quality Stroke Does the patient have a stroke diagnosis?: No
--- NOTE | 2025-04-25 19:33 | P.PNPSI_ITS ---
Subjective Subjective Date of Service: 04/25/25 Reason For Visit: Abnormal CT chest Interim History: sleeping in room, not disturbed as sleep felt to be more therapeutic for this patient than interview. per staff, no change in presentation. Mental Status Exam Mental Status Exam Narrative: sleeping soundly in bed Diagnostics Vital Signs (24Hr): Vital Signs - 24 hr 04/24/25 20:00 04/25/25 07:55 Temperature 98.2 F 97.9 F Pulse Rate 80 65 Respiratory Rate 16 18 Blood Pressure 102/56 L 118/62 Pulse Oximetry 93 94 Oxygen Delivery Method Room Air Room Air BMI result Body Mass Index 32.3 Labs 03/29/25 08:55 03/29/25 08:55 Imaging Radiology Impressions: ITS Impressions Head CT 03/05/25 15:51 IMPRESSION: 1. No acute intracranial abnormality. 2. Right-sided cochlear nerve implant with associated streak artifact. 3. Right-sided canal wall up mastoidectomy. Electronically signed by: Levi Greer MD 03/05/2025 04:25 PM EDT RP Lumbar Puncture Fluoroscopy 03/09/25 11:50 IMPRESSION: Successful fluoroscopy-guided lumbar puncture performed without immediate complications Electronically signed by: Thompson Andujar MD 03/09/2025 04:06 PM EDT RP Chest CT 03/11/25 11:52 IMPRESSION: 1. Multiple bilateral pulmonary nodules measuring up to 10 mm in size. Further evaluation should be based on Fleischner Society guidelines below. 2. Cardiomegaly. Findings consistent with pulmonary arterial hypertension. 3. No evidence of mediastinal or hilar lymphadenopathy. Fleischner Criteria for pulmonary nodule follow-up SOLID NODULES: Low risk patient: <6mm: no follow-up 6-8mm: 6 month follow-up CT >8mm: PET/Biopsy/ 3 month follow-up CT High risk patient: <6mm: 12 month follow-up CT 6-8mm: 6 month follow-up CT >8mm: PET/Biopsy/ 3 month follow-up CT SUB-SOLID/GROUNDGLASS NODULES: All patients: > or = 6mm: 6 month follow-up CT *Please note that in patients in the following categories, the Fleischner criteria do not apply: Immunocompromised, lung cancer screening population, age below 35, and patients with known malignancy Electronically signed by: Best Clemons MD 03/11/2025 01:45 PM EDT RP Head CTA 03/11/25 11:52 IMPRESSION: Head CT: No acute intracranial abnormality. CT angiogram of the head: No vascular occlusions. Electronically signed by: Gypsy Salamanca MD 03/11/2025 03:02 PM EDT RP Chest CT 04/24/25 09:58 IMPRESSION: 1. Majority of the previously seen pulmonary nodules have resolved, and were consistent with infectious or inflammatory etiology. 2. There is a persistent 9 mm nodular focus in the lateral right upper lobe, which is felt to represent scarring given the appearance. To be cautious, a 3 month interval follow-up CT is recommended to ensure stability. 3. There is mild to moderate paraseptal emphysema. There is no acute pneumonic consolidation. 4. There is thickening of the small airways suggesting bronchitis. 5. There is moderate cardiac enlargement. Enlarged main pulmonary artery is consistent with pulmonary arterial hypertension. Electronically signed by: Levi Greer MD 04/24/2025 10:56 AM EDT Medications Medications Current Medications Acetaminophen (Acetaminophen 325 Mg Tablet) 650 mg PO Q6H PRN PRN Reason: Headache/Pain, Scale 1-10 Last Admin: 04/21/25 09:07 Dose: 650 mg Al Hydroxide/Mg Hydroxide (Magnesium Hydrox/Alum Hydrox 30 Ml Oral.Susp) 30 ml PO Q6H PRN PRN Reason: Heartburn/Nausea Albuterol Sulfate (Albuterol Sulfate 90 Mcg 8 Gm Inhaler) 2 puff INHALE Q4H PRN PRN Reason: Shortness Of Breath Or Wheezing Atorvastatin Calcium (Atorvastatin Calcium 40 Mg Tablet) 40 mg PO DAILY [facility] Last Admin: 04/25/25 08:52 Dose: 40 mg Clonazepam (Clonazepam Odt 0.5 Mg Tab.Rapdis) 0.5 mg PO BID PRN PRN Reason: severe anxiety/sleep Last Admin: 03/31/25 20:37 Dose: 0.5 mg Clozapine 100 mg/ Clozapine 75 (mg) 175 mg PO BEDTIME [facility] Last Admin: 04/24/25 20:29 Dose: 175 mg Fluphenazine HCl (Fluphenazine Hcl 2.5 Mg/Ml 10 Ml Vial) 2.5 mg IM BID PRN PRN Reason: give if refuses oral per HCP Last Admin: 03/05/25 09:42 Dose: 2.5 mg Fluphenazine HCl (Fluphenazine Hcl 2.5 Mg Tablet) 2.5 mg PO BID [facility] Last Admin: 04/25/25 08:52 Dose: 2.5 mg Fluticasone/Vilanterol (Fluticasone/Vilanterol 200/25 Blst.W.Dev) 1 puff INHALE RDAILY [facility] Last Admin: 04/25/25 08:58 Dose: 1 puff Glycopyrrolate (Glycopyrrolate 1 Mg Tablet) 0.5 mg PO BID [facility] Last Admin: 04/25/25 08:52 Dose: 0.5 mg Guaifenesin (Guaifenesin 200 Mg/10 Ml 10 Ml Liquid) 10 ml PO Q6H PRN PRN Reason: Cough Hydrochlorothiazide (Hydrochlorothiazide 25 Mg Tablet) 25 mg PO DAILY [facility] Last Admin: 04/25/25 08:52 Dose: 25 mg Levetiracetam (Levetiracetam Oral Soln 500 Mg/5 Ml) 250 mg PO BID [facility] Last Admin: 04/25/25 08:53 Dose: 250 mg Magnesium Hydroxide (Milk Of Magnesia 30 Ml Oral.Susp) 30 ml PO DAILY PRN PRN Reason: Constipation Methimazole (Methimazole 5 Mg Tablet) 5 mg PO DAILY [facility] Last Admin: 04/25/25 08:52 Dose: 5 mg Naloxone HCl (Naloxone Hcl 0.4 Mg/Ml Vial) 0.04 mg IVPUSH Q5M PRN PRN Reason: Excessive sedation or RR < 8 Nifedipine (Nifedipine Er 30 Mg Tab.Er.24) 30 mg PO DAILY [facility]; Protocol Last Admin: 04/25/25 08:52 Dose: 30 mg Olanzapine (Olanzapine 10 Mg Tablet) 10 mg PO Q6H PRN PRN Reason: severe agitation Last Admin: 04/16/25 16:28 Dose: 10 mg Prednisone (Prednisone 20 Mg Tablet) 40 mg PO DAILY [facility] Last Admin: 04/25/25 08:52 Dose: 40 mg Tiotropium [place] (Tiotropium [place] 2.5 Mcg 1 Puff/2.5 Mcg Mist.Inhal) 1 puff INHALE RDAILY [facility] Last Admin: 04/25/25 08:58 Dose: 1 puff Trazodone HCl (Trazodone Hcl 50 Mg Tablet) 50 mg PO BEDTIME MRX1 PRN PRN Reason: Insomnia Last Admin: 04/04/25 23:21 Dose: 50 mg Allergies Allergies Allergy/AdvReac Type Severity Reaction Status Date / Time latex Allergy Unknown Verified 03/09/25 11:50 peanut Allergy Unknown Verified 03/09/25 11:50 Penicillins Allergy Unknown Verified 03/09/25 11:50 Assessment & Plan Assessment & Plan (1) Pulmonary nodules: Status: Acute Code(s): R91.8 - Other nonspecific abnormal finding of lung field (2) Rheumatoid arthritis involving hand with positive rheumatoid factor: Status: Acute Code(s): M05.749 - Rheumatoid arthritis with rheumatoid factor of unspecified hand without organ or systems involvement Plan Impression: 69-year-old lady with rheumatoid arthritis and incidentally noted pulmonary nodules treated with a course of systemic glucocorticoids with improvement in her pulmonary nodules and absence of pulmonary symptoms otherwise. Recommendation: Would suggest slow titration off systemic glucocorticoids by 10 mg every week. Would suggest repeating CT chest in 3 months to evaluate for stability of underlying remaining nodules. 04/25: no change in clinical status. continue current mgmt for now. attending to review pulm recs sunday. Reason for continued inpatient stay Substantial Risk for: inability to function Time Spent With Patient Time: Total time managing care of this patient today ____ minutes.
[2025-04-25 20:00] VITALS: BP 113/52; PULSE 81; RESP 18; TEMP 36.8; O2SAT 98
[2025-04-26 08:00] VITALS: BP 144/70; PULSE 63; RESP 17; TEMP 36.3; O2SAT 97
[2025-04-26] MEDS: Fluticasone/Vilanterol 200/25 BLST.W.DEV 1 PUFF INHALE (09:27)
[2025-04-26] MEDS: Tiotropium Bromide 2.5 mcg 1 PUFF/2.5 MCG MIST.INHAL INHALE (09:27)
[2025-04-26] MEDS: NIFEdipine ER 30 MG TAB.ER.24 PO (09:28)
[2025-04-26] MEDS: levETIRAcetam Oral Soln 500 MG/5 ML 250 MG PO ×2 (09:28→19:39)
--- NOTE | 2025-04-26 15:07 | P.PNPSI_ITS ---
Subjective Subjective Date of Service: 04/26/25 Reason For Visit: Abnormal CT chest Interim History: at recent baseline. in milieu. not agitated. states she is doing OK. no requests or complaints. per staff, no change in presentation. taking meds. Mental Status Exam Mental Status Exam Narrative: Appearance: casual attire, adequate grooming and hygiene Behavior: calm, keeping to self, engagement limited by vision and hearing difficulties Orientation: alert, oriented to idea that she is in the hospital, year, month not date nor situation. Psychomotor Function: no agitation or slowing; no abnormal gestures or movements Speech: mostly clear, normal rate/rhythm/volume, spontaneous Mood: ok Affect: calm, non-labile Thought Process: more linear/organized. Thought Content: paranoid delusions of people coming to hurt others and attempting to hurt her Hallucinations: AH constantly talking to daughter who is not there. Delusions: paranoid delusions. Insight: impairment Judgment: impairment Impulsivity: none noted Diagnostics Vital Signs (24Hr): Vital Signs - 24 hr 04/25/25 20:00 04/26/25 08:00 Temperature 98.3 F 97.3 F Pulse Rate 81 63 Respiratory Rate 18 17 Blood Pressure 113/52 L 144/70 H Pulse Oximetry 98 97 Oxygen Delivery Method Room Air Room Air BMI result Body Mass Index 32.3 Labs 03/29/25 08:55 03/29/25 08:55 Imaging Radiology Impressions: ITS Impressions Head CT 03/05/25 15:51 IMPRESSION: 1. No acute intracranial abnormality. 2. Right-sided cochlear nerve implant with associated streak artifact. 3. Right-sided canal wall up mastoidectomy. Electronically signed by: Levi Greer MD 03/05/2025 04:25 PM EDT Lumbar Puncture Fluoroscopy 03/09/25 11:50 IMPRESSION: Successful fluoroscopy-guided lumbar puncture performed without immediate complications Electronically signed by: Thompson Andujar MD 03/09/2025 04:[address] 03/11/25 11:52 IMPRESSION: 1. Multiple bilateral pulmonary nodules measuring up to 10 mm in size. Further evaluation should be based on Fleischner Society guidelines below. 2. Cardiomegaly. Findings consistent with pulmonary arterial hypertension. 3. No evidence of mediastinal or hilar lymphadenopathy. Fleischner Criteria for pulmonary nodule follow-up SOLID NODULES: Low risk patient: <6mm: no follow-up 6-8mm: 6 month follow-up CT >8mm: PET/Biopsy/ 3 month follow-up CT High risk patient: <6mm: 12 month follow-up CT 6-8mm: 6 month follow-up CT >8mm: PET/Biopsy/ 3 month follow-up CT SUB-SOLID/GROUNDGLASS NODULES: All patients: > or = 6mm: 6 month follow-up CT *Please note that in patients in the following categories, the Fleischner criteria do not apply: Immunocompromised, lung cancer screening population, age below 35, and patients with known malignancy Electronically signed by: Best Clemons MD 03/11/2025 01:45 PM EDT RP Head CTA 03/11/25 11:52 IMPRESSION: Head CT: No acute intracranial abnormality. CT angiogram of the head: No vascular occlusions. Electronically signed by: Gypsy Salamanca MD 03/11/2025 03:02 PM EDT RP Chest CT 04/24/25 09:58 IMPRESSION: 1. Majority of the previously seen pulmonary nodules have resolved, and were consistent with infectious or inflammatory etiology. 2. There is a persistent 9 mm nodular focus in the lateral right upper lobe, which is felt to represent scarring given the appearance. To be cautious, a 3 month interval follow-up CT is recommended to ensure stability. 3. There is mild to moderate paraseptal emphysema. There is no acute pneumonic consolidation. 4. There is thickening of the small airways suggesting bronchitis. 5. There is moderate cardiac enlargement. Enlarged main pulmonary artery is consistent with pulmonary arterial hypertension. Electronically signed by: Levi Greer MD 04/24/2025 10:56 AM EDT RP Medications Medications Current Medications Acetaminophen (Acetaminophen 325 Mg Tablet) 650 mg PO Q6H PRN PRN Reason: Headache/Pain, Scale 1-10 Last Admin: 04/21/25 09:07 Dose: 650 mg Al Hydroxide/Mg Hydroxide (Magnesium Hydrox/Alum Hydrox 30 Ml Oral.Susp) 30 ml PO Q6H PRN PRN Reason: Heartburn/Nausea Albuterol Sulfate (Albuterol Sulfate 90 Mcg 8 Gm Inhaler) 2 puff INHALE Q4H PRN PRN Reason: Shortness Of Breath Or Wheezing Atorvastatin Calcium (Atorvastatin Calcium 40 Mg Tablet) 40 mg PO DAILY [facility] Last Admin: 04/26/25 09:28 Dose: 40 mg Clonazepam (Clonazepam Odt 0.5 Mg Tab.Rapdis) 0.5 mg PO BID PRN PRN Reason: severe anxiety/sleep Last Admin: 03/31/25 20:37 Dose: 0.5 mg Clozapine 100 mg/ Clozapine 75 (mg) 175 mg PO BEDTIME [facility] Last Admin: 04/25/25 20:41 Dose: 175 mg Fluphenazine HCl (Fluphenazine Hcl 2.5 Mg/Ml 10 Ml Vial) 2.5 mg IM BID PRN PRN Reason: give if refuses oral per HCP Last Admin: 03/05/25 09:42 Dose: 2.5 mg Fluphenazine HCl (Fluphenazine Hcl 2.5 Mg Tablet) 2.5 mg PO BID [facility] Last Admin: 04/26/25 09:28 Dose: 2.5 mg Fluticasone/Vilanterol (Fluticasone/Vilanterol 200/25 Blst.W.Dev) 1 puff INHALE RDAILY [facility] Last Admin: 04/26/25 09:27 Dose: 1 puff Glycopyrrolate (Glycopyrrolate 1 Mg Tablet) 0.5 mg PO BID [facility] Last Admin: 04/26/25 09:28 Dose: 0.5 mg Guaifenesin (Guaifenesin 200 Mg/10 Ml 10 Ml Liquid) 10 ml PO Q6H PRN PRN Reason: Cough Hydrochlorothiazide (Hydrochlorothiazide 25 Mg Tablet) 25 mg PO DAILY [facility] Last Admin: 04/26/25 09:28 Dose: 25 mg Levetiracetam (Levetiracetam Oral Soln 500 Mg/5 Ml) 250 mg PO BID [facility] Last Admin: 04/26/25 09:28 Dose: 250 mg Magnesium Hydroxide (Milk Of Magnesia 30 Ml Oral.Susp) 30 ml PO DAILY PRN PRN Reason: Constipation Methimazole (Methimazole 5 Mg Tablet) 5 mg PO DAILY [facility] Last Admin: 04/26/25 09:37 Dose: 5 mg Naloxone HCl (Naloxone Hcl 0.4 Mg/Ml Vial) 0.04 mg IVPUSH Q5M PRN PRN Reason: Excessive sedation or RR < 8 Nifedipine (Nifedipine Er 30 Mg Tab.Er.24) 30 mg PO DAILY [facility]; Protocol Last Admin: 04/26/25 09:28 Dose: 30 mg Olanzapine (Olanzapine 10 Mg Tablet) 10 mg PO Q6H PRN PRN Reason: severe agitation Last Admin: 04/16/25 16:28 Dose: 10 mg Prednisone (Prednisone 20 Mg Tablet) 40 mg PO DAILY [facility] Last Admin: 04/26/25 09:27 Dose: 40 mg Tiotropium [place] (Tiotropium [place] 2.5 Mcg 1 Puff/2.5 Mcg Mist.Inhal) 1 puff INHALE RDAILY [facility] Last Admin: 04/26/25 09:27 Dose: 1 puff Trazodone HCl (Trazodone Hcl 50 Mg Tablet) 50 mg PO BEDTIME MRX1 PRN PRN Reason: Insomnia Last Admin: 04/04/25 23:21 Dose: 50 mg Allergies Allergies Allergy/AdvReac Type Severity Reaction Status Date / Time latex Allergy Unknown Verified 03/09/25 11:50 peanut Allergy Unknown Verified 03/09/25 11:50 Penicillins Allergy Unknown Verified 03/09/25 11:50 Assessment & Plan Assessment & Plan (1) Pulmonary nodules: Status: Acute Code(s): R91.8 - Other nonspecific abnormal finding of lung field (2) Rheumatoid arthritis involving hand with positive rheumatoid factor: Status: Acute Code(s): M05.749 - Rheumatoid arthritis with rheumatoid factor of unspecified hand without organ or systems involvement Plan Impression: 69-year-old lady with rheumatoid arthritis and incidentally noted pulmonary nodules treated with a course of systemic glucocorticoids with improvement in her pulmonary nodules and absence of pulmonary symptoms otherwise. Recommendation: Would suggest slow titration off systemic glucocorticoids by 10 mg every week. Would suggest repeating CT chest in 3 months to evaluate for stability of underlying remaining nodules. 04/25: no change in clinical status. continue current mgmt for now. attending to review pulm recs sunday. 04/26: stable presentation. continue current mgmt. Reason for continued inpatient stay Substantial Risk for: inability to function Time Spent With Patient Time: Total time managing care of this patient today ____ minutes.
[2025-04-26 19:07] VITALS: BP 150/65; PULSE 93; RESP 17; TEMP 36.7; O2SAT 96
[2025-04-26] MEDS: Albuterol Sulfate 90 MCG 8 GM INHALER 2 PUFF INHALE (20:27)
[2025-04-27 08:00] VITALS: BP 111/59; PULSE 64; RESP 15; TEMP 36.1; O2SAT 94
[2025-04-27] MEDS: Fluticasone/Vilanterol 200/25 BLST.W.DEV 1 PUFF INHALE (08:37)
[2025-04-27] MEDS: Tiotropium Bromide 2.5 mcg 1 PUFF/2.5 MCG MIST.INHAL INHALE (08:37)
[2025-04-27] MEDS: levETIRAcetam Oral Soln 500 MG/5 ML 250 MG PO ×2 (08:38→20:37)
[2025-04-27] MEDS: NIFEdipine ER 30 MG TAB.ER.24 PO (08:40)
[2025-04-27] MEDS: Albuterol Sulfate 90 MCG 8 GM INHALER 2 PUFF INHALE (09:02)
--- NOTE | 2025-04-27 15:11 | HO.PSYCHPN ---
Subjective Subjective Date of Service: 04/27/25 Reason For Visit: Abnormal CT chest Subjective Notes: Section [employer] Healthcare Proxy: Yes Interim History: Pt slept through the night. Taking medications as prescribed. Continues to present with AH. Less paranoid towards staff and allows more support from nursing. However, conversations mostly informed by delusional thinking not so much reality. symptoms continue to impaire her functioning. Will consult as well with her OP Transportation Mechanic as to whether continue prednisone as initially recommended by rheumatology for suspected lupus, although it has had additional benefits in lung nodules. Review of Systems Review of Systems Denies any shortness of breath, chest pain, dizziness, lightheadedness, abdominal pain or discomfort, nausea vomiting or diarrhea Yes all other systems are reviewed and are negative, Unobtainable due to mental condition, Unobtainable due to mental status and Other (patient refused to answer ROS questions) Constitutional: Reports as per HPI Eyes: Reports as per HPI Reports as per HPI Cardiovascular: Reports as per HPI Respiratory: Reports as per HPI Gastrointestinal: Reports as per HPI Musculoskeletal: Reports as per HPI Skin/Breast: Reports as per HPI Reports as per HPI and Reports confusion Psychiatric: Reports as per HPI and Reports confusion Endocrine: Reports as per HPI Hematologic/Lymphatic: Reports as per HPI Allergic/Immunologic: Reports as per HPI Mental Status Exam Mental Status Exam Narrative: Appearance: casual attire, adequate grooming and hygiene Behavior: calm, keeping to self, engagement limited by vision and hearing difficulties Orientation: alert, oriented to idea that she is in the hospital, year, month not date nor situation. Psychomotor Function: no agitation or slowing; no abnormal gestures or movements Speech: mostly clear, normal rate/rhythm/volume, spontaneous Mood: ok Affect: calm, non-labile Thought Process: more linear/organized. Thought Content: paranoid delusions of people coming to hurt others and attempting to hurt her Hallucinations: AH constantly talking to daughter who is not there. Delusions: paranoid delusions. Insight: impairment Judgment: impairment Impulsivity: none noted Diagnostics Vital Signs (24Hr): Vital Signs - 24 hr 04/26/25 19:07 04/27/25 08:00 Temperature 98.1 F 97.0 F Pulse Rate 93 64 Respiratory Rate 17 15 Blood Pressure 150/65 H 111/59 L Pulse Oximetry 96 94 Oxygen Delivery Method Room Air Room Air BMI result Body Mass Index 32.3 Labs 03/29/25 08:55 03/29/25 08:55 Imaging Radiology Impressions: ITS Impressions Head CT 03/05/25 15:51 IMPRESSION: 1. No acute intracranial abnormality. 2. Right-sided cochlear nerve implant with associated streak artifact. 3. Right-sided canal wall up mastoidectomy. Electronically signed by: Levi Greer MD 03/05/2025 04:25 PM EDT RP Lumbar Puncture Fluoroscopy 03/09/25 11:50 IMPRESSION: Successful fluoroscopy-guided lumbar puncture performed without immediate complications Electronically signed by: Thompson Andujar MD 03/09/2025 04:06 PM EDT RP Chest CT 03/11/25 11:52 IMPRESSION: 1. Multiple bilateral pulmonary nodules measuring up to 10 mm in size. Further evaluation should be based on Fleischner Society guidelines below. 2. Cardiomegaly. Findings consistent with pulmonary arterial hypertension. 3. No evidence of mediastinal or hilar lymphadenopathy. Fleischner Criteria for pulmonary nodule follow-up SOLID NODULES: Low risk patient: <6mm: no follow-up 6-8mm: 6 month follow-up CT >8mm: PET/Biopsy/ 3 month follow-up CT High risk patient: <6mm: 12 month follow-up CT 6-8mm: 6 month follow-up CT >8mm: PET/Biopsy/ 3 month follow-up CT SUB-SOLID/GROUNDGLASS NODULES: All patients: > or = 6mm: 6 month follow-up CT *Please note that in patients in the following categories, the Fleischner criteria do not apply: Immunocompromised, lung cancer screening population, age below 35, and patients with known malignancy Electronically signed by: Best Clemons MD 03/11/2025 01:45 PM EDT RP Head CTA 03/11/25 11:52 IMPRESSION: Head CT: No acute intracranial abnormality. CT angiogram of the head: No vascular occlusions. Electronically signed by: Gypsy Salamanca MD 03/11/2025 03:02 PM EDT RP Chest CT 04/24/25 09:58 IMPRESSION: 1. Majority of the previously seen pulmonary nodules have resolved, and were consistent with infectious or inflammatory etiology. 2. There is a persistent 9 mm nodular focus in the lateral right upper lobe, which is felt to represent scarring given the appearance. To be cautious, a 3 month interval follow-up CT is recommended to ensure stability. 3. There is mild to moderate paraseptal emphysema. There is no acute pneumonic consolidation. 4. There is thickening of the small airways suggesting bronchitis. 5. There is moderate cardiac enlargement. Enlarged main pulmonary artery is consistent with pulmonary arterial hypertension. Electronically signed by: Levi Greer MD 04/24/2025 10:56 AM EDT Medications Medications Current Medications Acetaminophen (Acetaminophen 325 Mg Tablet) 650 mg PO Q6H PRN PRN Reason: Headache/Pain, Scale 1-10 Last Admin: 04/27/25 09:02 Dose: 650 mg Al Hydroxide/Mg Hydroxide (Magnesium Hydrox/Alum Hydrox 30 Ml Oral.Susp) 30 ml PO Q6H PRN PRN Reason: Heartburn/Nausea Albuterol Sulfate (Albuterol Sulfate 90 Mcg 8 Gm Inhaler) 2 puff INHALE Q4H PRN PRN Reason: Shortness Of Breath Or Wheezing Last Admin: 04/27/25 09:02 Dose: 2 puff Atorvastatin Calcium (Atorvastatin Calcium 40 Mg Tablet) 40 mg PO DAILY [facility] Last Admin: 04/27/25 08:40 Dose: 40 mg Clonazepam (Clonazepam Odt 0.5 Mg Tab.Rapdis) 0.5 mg PO BID PRN PRN Reason: severe anxiety/sleep Last Admin: 03/31/25 20:37 Dose: 0.5 mg Clozapine 100 mg/ Clozapine 75 (mg) 175 mg PO BEDTIME [facility] Last Admin: 04/26/25 19:40 Dose: 175 mg Fluphenazine HCl (Fluphenazine Hcl 2.5 Mg/Ml 10 Ml Vial) 2.5 mg IM BID PRN PRN Reason: give if refuses oral per HCP Last Admin: 03/05/25 09:42 Dose: 2.5 mg Fluphenazine HCl (Fluphenazine Hcl 2.5 Mg Tablet) 2.5 mg PO BID [facility] Last Admin: 04/27/25 08:39 Dose: 2.5 mg Fluticasone/Vilanterol (Fluticasone/Vilanterol 200/25 Blst.W.Dev) 1 puff INHALE RDAILY [facility] Last Admin: 04/27/25 08:37 Dose: 1 puff Glycopyrrolate (Glycopyrrolate 1 Mg Tablet) 0.5 mg PO BID [facility] Last Admin: 04/27/25 08:39 Dose: 0.5 mg Guaifenesin (Guaifenesin 200 Mg/10 Ml 10 Ml Liquid) 10 ml PO Q6H PRN PRN Reason: Cough Hydrochlorothiazide (Hydrochlorothiazide 25 Mg Tablet) 25 mg PO DAILY [facility] Last Admin: 04/27/25 08:40 Dose: 25 mg Levetiracetam (Levetiracetam Oral Soln 500 Mg/5 Ml) 250 mg PO BID [facility] Last Admin: 04/27/25 08:38 Dose: 250 mg Magnesium Hydroxide (Milk Of Magnesia 30 Ml Oral.Susp) 30 ml PO DAILY PRN PRN Reason: Constipation Methimazole (Methimazole 5 Mg Tablet) 5 mg PO DAILY [facility] Last Admin: 04/27/25 08:40 Dose: 5 mg Naloxone HCl (Naloxone Hcl 0.4 Mg/Ml Vial) 0.04 mg IVPUSH Q5M PRN PRN Reason: Excessive sedation or RR < 8 Nifedipine (Nifedipine Er 30 Mg Tab.Er.24) 30 mg PO DAILY [facility]; Protocol Last Admin: 04/27/25 08:40 Dose: 30 mg Olanzapine (Olanzapine 10 Mg Tablet) 10 mg PO Q6H PRN PRN Reason: severe agitation Last Admin: 04/16/25 16:28 Dose: 10 mg Prednisone (Prednisone 20 Mg Tablet) 40 mg PO DAILY [facility] Last Admin: 04/27/25 08:40 Dose: 40 mg Tiotropium [place] (Tiotropium [place] 2.5 Mcg 1 Puff/2.5 Mcg Mist.Inhal) 1 puff INHALE RDAILY [facility] Last Admin: 04/27/25 08:37 Dose: 1 puff Trazodone HCl (Trazodone Hcl 50 Mg Tablet) 50 mg PO BEDTIME MRX1 PRN PRN Reason: Insomnia Last Admin: 04/04/25 23:21 Dose: 50 mg Allergies Allergies Allergy/AdvReac Type Severity Reaction Status Date / Time latex Allergy Unknown Verified 03/09/25 11:50 peanut Allergy Unknown Verified 03/09/25 11:50 Penicillins Allergy Unknown Verified 03/09/25 11:50 Assessment & Plan Assessment & Plan (1) Psychosis: Status: Acute Code(s): F29 - Unspecified psychosis not due to a substance or known physiological condition Assessment and Plan: r/o autoimmune reasons for psychosis including lupus. (2) Pulmonary nodules: Status: Acute Code(s): R91.8 - Other nonspecific abnormal finding of lung field Assessment and Plan: Bloodwork Per chip mucker on 04/13/2025- repeat chest CT in 2 weeks after 4 week course of prednisone and reassess need for bronchoscopy. (3) Rheumatoid arthritis involving hand with positive rheumatoid factor: Status: Acute Code(s): M05.749 - Rheumatoid arthritis with rheumatoid factor of unspecified hand without organ or systems involvement Plan Mrs. Sharif is a 69 year-old woman who presents with a 3 month hx of new onset of psychosis (AH) and combination of paranoid delusions and cap gras delusions. No prior psychiatric hx. She does have of cocaine use but apparently had not used in some years. Daughter suspects she may have relapsed but no ongoing use. Pt presents with more complex theme of delusions. No additional medical work up available including head CT. CBC and cmp unremarkable. 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 It may be related to dementia process but complexity of delusions and psychosis not the common presentation for dementia that have psychosis early on such as in vascular dementia or LBD. Pt presents as gravely disable to able to care for self due to symptoms of psychosis and delusions. 02/03 increase night time risperidone 2mg po qhs increase cogetin at bedtime to 1mg po qhs. lower daily dose to 0.5mg po daily. continue cogentin 0.5mg po daily. clonazepam as prn olanzapine as prn for agitation 02/04 continue tx. 02/05 continue tx. 02/06 continue current dose of risperidone. NOTE THAT pt can't take doses higher than 3 mg/day of risperidone as higher doses had severe EPS. can use olanzapine as well per court order. 02/07/25: Patient has been agitated yelling loudly exist seeking, delusional thinking her daughter/son outside at the door to pick her up. PRNs given in the morning with mild effect. Patient became agitated, aggressive\, assaultive to 1 of the staff on the floor, yelling and hitting her face so grabbing her neck. Physical was started at 16:31 to 1634. Patient was given IM medication of Zyprexa 10 and Valium 10 with good effect. Tomorrow plan: Patient will be benefit from Valium 10 mg twice a day and Zyprexa 5 mg 3 times a day is added into her scheduled medication as current plan with risperidone is not effective. Patient also having a backup for risperidone if she refused. 02/08/25: Slept most of the morning and last night. In better behavior control. No aggressive behavior. She is quiet, self dialogue, and medication compliant. Due to receive restrain medication yesterday. I did not make any medication change. But the Valium and additional Zyprexa appears to be helpful. 02/09 will try to change keppra to depakote for seizures as keppra may exacerbate psychosis. increase risperidone 1mg po daily and 2mg po qhs. may need to add second antipsychotic. 02/10 continues to present as paranoid with AH. at times declines oral medications, requiring IM back per court order. 02/11 continue tx. 02/12 continue tx. 02/13 continue tx. 02/14: no changes today. Monitor for agitation around confusion about hospitalization 02/15: no changes today, self dialogue more overt/extensive today 02/16 add olanzapine 5mg po qhs. continue risperidone. minimal improvement if any. 02/17 continue tx. 02/18 seems more somnolent with bedtime olanzapine, will continue to monitor. 02/19 cbc showed thrombocytopenia, which is new and suspect related to depakote 02/20 pt appears more sedated since addition of olanzapine at bedtime. She continues to self dialogue. minimal improvement. 02/21: Continue current management and treatment plan. 02/22: continue current management and treatment plan. 02/23 continue tx. may need to affirm HCP try different antipsychotic. 02/24 continue tx. results of LENORE 1:360, pattern homogenous A. 02/25 will try rexulti, lower risperidone. pending coordination of medical care to see if underlying autoimmune condition has anything to do with current presentation. 02/26 discussed with hospital energy attorney to dismiss sect 8, HCP invoked and can consent to other treatment. daughter Maricruz give permission to try different antipsychotic. 02/27 decrease risperidone to 1mg po daily, start prolixin 2.5mg po qhs, then increase to BID. continue olanzapine prn for agitation. olanzapine as well per court order. 03/03 pt seen by neurology, added HIV/RPR/LYME, can't have MRI due to cochlear implant. 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 Last Neurology appointment 01/2024. Missed appointment with rheumatology 05/2024, last seen in 02/26/2024. - Pt can't have MRI due to cochlear implant. Had head CT. - continue prolixin 2.5mg po daily, 5mg po qhs. will d/c risperidone, increase prolixin 5mg po BID, back up IM. 03/05 continue tx. 03/06 This conventional mortgage underwriter spoke with pt's technology intern, Dr. Al obtained collateral information. Will coordinate with neurology and rheumatology once LP results are available. r/o reoccurance of pachymeningitis, lupus or other autoimmune cause for psychosis. 03/07: Continue current regimen and plans. Discontinued one-to-one and put in place 5 minute checks 03/08: Continue current plans and regimen 03/09 continue tx. 03/10: continue current mgmt. continues disorganized and psychotic. see neuro note from today. continue with neuro w/u. 03/11: given zyprexa 5 and valium [address] and head CTA. head CTA WNL, chest CT showed numerous pulmonary nodules up to 10 mm in size. no change in presentation. due to persistent requests for discharge, 3-day notice submitted on her behalf. will work toward HCP affirmation by the court. 03/12: per pulm consult, chest CT more c/w rheumatological process than CA, recommended empiric steroid course. awaiting input from neuro. consider Bx of nodules otherwise. continue current mgmt for now. 03/13: variably calm and agitated. planning for bronchoscopy with pulmonary nodule Bx on sunday. continue current mgmt. case discussed with HCP Maricruz (daughter), who is in agreement with plan. 03/14: CSF with notable findings. will f/u with neuro on sunday. stable presentation for now, remains quite psychotic. continue current mgmt. bronchoscopy sunday. 03/15: no change from yesterday in presentation or plan. 03/16: stable presentation. continues confused, wanting to go home. HCP affirmation tomorrow. continue current mgmt. 03/17: stable presdentation. bronchoscopy pending. continue current mgmt. 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 awaiting bronchoscopy. remains psychotic. continue current mgmt for now. 03/20: no change in presentation. still awaiting go-ahead for brochoscopy. continue current mgmt. 03/22: No changes. Noted above. 03/23: awaiting insurance approval for bronchoscopy. stable presentation. 03/24: as for yesterday. 03/25: loudly RIS in milieu today. bronchoscopy scheduled for sunday at 1130. NPO past MN night. stable presentation. continue current mgmt. 03/26 pt presents as more disorganized and inattentive than usual showing more signs of delirious behavior. bronchoscopy was canceled,due to shortage of needles to complete biopsy. will order cbc, cmp, ammonia levels given increase disorganized behavior and worsening attention pointing at a more delirious presentation. Review of results from LP showing negative results for meningitis panel/paraneoplastic panel (including most common antibody found in SLC which is EARL 1 which was negative), elevated protein in CSF 131 without leukocytosis, also elevated CSF/serum IgG index. elevated anti-ds dna titer 1:80. Such results may point more to a rheumatological condition than infectious condition or malignancy. Mrs. Sharif's OP technology intern, Dr. Al recommends trial of prednisone 40mg po daily at least for 2 weeks. 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 03/31 increase prolixin to 5mg po BID. continue all other medications including prednisone 40mg po daily. 04/01 discussed with her OP technology intern, Dr. Al possibility of transferring to [facility] for further tx of autoimmune condition, suspected also having lupus. continue prednisone. Spoke with daughter who is HCP, daughter concern about pt going to [facility] due to being dismissed several times when pt was first brought psychotic. 04/02 continue tx 04/03 increase prolixin to 5mg po TID. monitor EPS. 04/06 continue tx. 04/07- pending response from [facility] to see if they will take her for further evaluation of autoimmune condition with multidisciplinary team to continue see if psychosis related to autoimmune or primarily psychosis. Some improvement in attention, less guarded. continues to have auditory hallucinations. May consider switch to clozapine given that she has tried 3 antipsychotics with limited efficacy. 04/08 start clozapine 25mg po qhs. continue prolixin 7.5mg po TID. 04/09 increase clozapine to 50mg po qhs. continue prolixin 7.5mg po TID. 04/10 decrease prolixin to 7.5mg po BID. increase clozapine to 75mg po qhs. continue increasing clozapine by 25mg/day. chip mucker, recommends repeat CT in 2 weeks, and hold on bronchoscopy. 04/11: no change today, will titrate Clozapine further tomorrow 04/12: titrate Clozapine to 100 mg QHS 04/13 increase clozapine to 125mg po qhs. continue prolixin 7.5mg po BID. 04/14 Provided update to daughter Maricruz who is HCP in terms of pt being treated for both autoimmune condition that may be contributing to psychosis (with prednione) as well as primarily psychiatric disorder (although less likely) with clozapine. some improvement in attention, slightly less paranoid but continues to present with ongoing AH of her daughter. 04/15 continue tx. 04/16 continue tx. 04/17 start glycopyrralate for drooling, decrease cogentin. 04/17 increase clozapine 150mg po qhs, lower prolixin 2.5mg po BID. back up. 04/18: Continue current management and treatment plan. 04/19: continue current management and treatment plan. 04/20 increase clozapine to 175mg po qhs. 04/21 continue tx. 04/22 continue tx. 04/23 continue tx. will check clozapine levels. 04/[address] followed up done today- much less nodules seen. 04/27 no change in presentation, less paranoid towards staff but ongoing AH. Impaired awareness of surroundings and conversations mostly base on delusional content. Will consult as well with her OP Transportation Mechanic as to whether continue prednisone as initially recommended by rheumatology for suspected lupus, although it has had additional benefits in lung nodules. Reason for continued inpatient stay Substantial Risk for: inability to function Time Spent With Patient Time: Total time managing care of this patient today ____ minutes.
[2025-04-27 20:00] VITALS: BP 145/74; PULSE 70; RESP 18; TEMP 36.3; O2SAT 96
[2025-04-28 08:10] VITALS: BP 132/63; PULSE 63; TEMP 36.3; O2SAT 97
[2025-04-28] MEDS: NIFEdipine ER 30 MG TAB.ER.24 PO (08:33)
[2025-04-28] MEDS: levETIRAcetam Oral Soln 500 MG/5 ML 250 MG PO ×2 (08:34→19:33)
[2025-04-28] MEDS: Fluticasone/Vilanterol 200/25 BLST.W.DEV 1 PUFF INHALE (08:35)
[2025-04-28] MEDS: Tiotropium Bromide 2.5 mcg 1 PUFF/2.5 MCG MIST.INHAL INHALE (08:35)
--- NOTE | 2025-04-28 16:16 | HO.PSYCHPN ---
Subjective Subjective Date of Service: 04/28/25 Reason For Visit: Abnormal CT chest Subjective Notes: Section 8 Interim History: Pt slept through the night. Taking medications as prescribed. Continues to present with AH. Less paranoid towards staff and allows more support from nursing. However, conversations mostly informed by delusional thinking not so much reality. symptoms continue to impaired her functioning. No SI/HI. No aggression. Review of Systems Review of Systems Denies any shortness of breath, chest pain, dizziness, lightheadedness, abdominal pain or discomfort, nausea vomiting or diarrhea Yes all other systems are reviewed and are negative, Unobtainable due to mental condition, Unobtainable due to mental status and Other (patient refused to answer ROS questions) Constitutional: Reports as per HPI Eyes: Reports as per HPI Reports as per HPI Cardiovascular: Reports as per HPI Respiratory: Reports as per HPI Gastrointestinal: Reports as per HPI Musculoskeletal: Reports as per HPI Skin/Breast: Reports as per HPI Reports as per HPI and Reports confusion Psychiatric: Reports as per HPI and Reports confusion Endocrine: Reports as per HPI Hematologic/Lymphatic: Reports as per HPI Allergic/Immunologic: Reports as per HPI Mental Status Exam Mental Status Exam Narrative: Appearance: casual attire, adequate grooming and hygiene Behavior: calm, keeping to self, engagement limited by vision and hearing difficulties Orientation: alert, oriented to idea that she is in the hospital, year, month not date nor situation. Psychomotor Function: no agitation or slowing; no abnormal gestures or movements Speech: mostly clear, normal rate/rhythm/volume, spontaneous Mood: ok Affect: calm, non-labile Thought Process: more linear/organized. Thought Content: paranoid delusions of people coming to hurt others and attempting to hurt her Hallucinations: AH constantly talking to daughter who is not there. Delusions: paranoid delusions. Insight: impairment Judgment: impairment Impulsivity: none noted Diagnostics Vital Signs (24Hr): Vital Signs - 24 hr 04/27/25 20:00 04/28/25 08:10 Temperature 97.3 F 97.3 F Pulse Rate 70 63 Respiratory Rate 18 Blood Pressure 145/74 H 132/63 Pulse Oximetry 96 97 Oxygen Delivery Method Room Air Room Air BMI result Body Mass Index 32.3 Labs 03/29/25 08:55 03/29/25 08:55 Imaging Radiology Impressions: ITS Impressions Head CT 03/05/25 15:51 IMPRESSION: 1. No acute intracranial abnormality. 2. Right-sided cochlear nerve implant with associated streak artifact. 3. Right-sided canal wall up mastoidectomy. Electronically signed by: Levi Greer MD 03/05/2025 04:25 PM EDT RP Lumbar Puncture Fluoroscopy 03/09/25 11:50 IMPRESSION: Successful fluoroscopy-guided lumbar puncture performed without immediate complications Electronically signed by: Thompson Andujar MD 03/09/2025 04:06 PM EDT RP Chest CT 03/11/25 11:52 IMPRESSION: 1. Multiple bilateral pulmonary nodules measuring up to 10 mm in size. Further evaluation should be based on Fleischner Society guidelines below. 2. Cardiomegaly. Findings consistent with pulmonary arterial hypertension. 3. No evidence of mediastinal or hilar lymphadenopathy. Fleischner Criteria for pulmonary nodule follow-up SOLID NODULES: Low risk patient: <6mm: no follow-up 6-8mm: 6 month follow-up CT >8mm: PET/Biopsy/ 3 month follow-up CT High risk patient: <6mm: 12 month follow-up CT 6-8mm: 6 month follow-up CT >8mm: PET/Biopsy/ 3 month follow-up CT SUB-SOLID/GROUNDGLASS NODULES: All patients: > or = 6mm: 6 month follow-up CT *Please note that in patients in the following categories, the Fleischner criteria do not apply: Immunocompromised, lung cancer screening population, age below 35, and patients with known malignancy Electronically signed by: Best Clemons MD 03/11/2025 01:45 PM EDT RP Head CTA 03/11/25 11:52 IMPRESSION: Head CT: No acute intracranial abnormality. CT angiogram of the head: No vascular occlusions. Electronically signed by: Gypsy Salamanca MD 03/11/2025 03:02 PM EDT RP Chest CT 04/24/25 09:58 IMPRESSION: 1. Majority of the previously seen pulmonary nodules have resolved, and were consistent with infectious or inflammatory etiology. 2. There is a persistent 9 mm nodular focus in the lateral right upper lobe, which is felt to represent scarring given the appearance. To be cautious, a 3 month interval follow-up CT is recommended to ensure stability. 3. There is mild to moderate paraseptal emphysema. There is no acute pneumonic consolidation. 4. There is thickening of the small airways suggesting bronchitis. 5. There is moderate cardiac enlargement. Enlarged main pulmonary artery is consistent with pulmonary arterial hypertension. Electronically signed by: Levi Greer MD 04/24/2025 10:56 AM EDT Medications Medications Current Medications Acetaminophen (Acetaminophen 325 Mg Tablet) 650 mg PO Q6H PRN PRN Reason: Headache/Pain, Scale 1-10 Last Admin: 04/27/25 09:02 Dose: 650 mg Al Hydroxide/Mg Hydroxide (Magnesium Hydrox/Alum Hydrox 30 Ml Oral.Susp) 30 ml PO Q6H PRN PRN Reason: Heartburn/Nausea Albuterol Sulfate (Albuterol Sulfate 90 Mcg 8 Gm Inhaler) 2 puff INHALE Q4H PRN PRN Reason: Shortness Of Breath Or Wheezing Last Admin: 04/27/25 09:02 Dose: 2 puff Atorvastatin Calcium (Atorvastatin Calcium 40 Mg Tablet) 40 mg PO DAILY [facility] Last Admin: 04/28/25 08:34 Dose: 40 mg Clonazepam (Clonazepam Odt 0.5 Mg Tab.Rapdis) 0.5 mg PO BID PRN PRN Reason: severe anxiety/sleep Last Admin: 03/31/25 20:37 Dose: 0.5 mg Clozapine 100 mg/ Clozapine 75 (mg) 175 mg PO BEDTIME [facility] Last Admin: 04/27/25 20:38 Dose: 175 mg Fluphenazine HCl (Fluphenazine Hcl 2.5 Mg/Ml 10 Ml Vial) 2.5 mg IM BID PRN PRN Reason: give if refuses oral per HCP Last Admin: 03/05/25 09:42 Dose: 2.5 mg Fluphenazine HCl (Fluphenazine Hcl 2.5 Mg Tablet) 2.5 mg PO BID [facility] Last Admin: 04/28/25 08:34 Dose: 2.5 mg Fluticasone/Vilanterol (Fluticasone/Vilanterol 200/25 Blst.W.Dev) 1 puff INHALE RDAILY [facility] Last Admin: 04/28/25 08:35 Dose: 1 puff Glycopyrrolate (Glycopyrrolate 1 Mg Tablet) 0.5 mg PO BID [facility] Last Admin: 04/28/25 08:34 Dose: 0.5 mg Hydrochlorothiazide (Hydrochlorothiazide 25 Mg Tablet) 25 mg PO DAILY [facility] Last Admin: 04/28/25 08:36 Dose: 25 mg Levetiracetam (Levetiracetam Oral Soln 500 Mg/5 Ml) 250 mg PO BID [facility] Last Admin: 04/28/25 08:34 Dose: 250 mg Magnesium Hydroxide (Milk Of Magnesia 30 Ml Oral.Susp) 30 ml PO DAILY PRN PRN Reason: Constipation Methimazole (Methimazole 5 Mg Tablet) 5 mg PO DAILY [facility] Last Admin: 04/28/25 08:34 Dose: 5 mg Naloxone HCl (Naloxone Hcl 0.4 Mg/Ml Vial) 0.04 mg IVPUSH Q5M PRN PRN Reason: Excessive sedation or RR < 8 Nifedipine (Nifedipine Er 30 Mg Tab.Er.24) 30 mg PO DAILY [facility]; Protocol Last Admin: 04/28/25 08:33 Dose: 30 mg Olanzapine (Olanzapine 10 Mg Tablet) 10 mg PO Q6H PRN PRN Reason: severe agitation Last Admin: 04/16/25 16:28 Dose: 10 mg Prednisone (Prednisone 20 Mg Tablet) 40 mg PO DAILY [facility] Last Admin: 04/28/25 08:35 Dose: 40 mg Tiotropium [place] (Tiotropium [place] 2.5 Mcg 1 Puff/2.5 Mcg Mist.Inhal) 1 puff INHALE RDAILY [facility] Last Admin: 04/28/25 08:35 Dose: 1 puff Trazodone HCl (Trazodone Hcl 50 Mg Tablet) 50 mg PO BEDTIME MRX1 PRN PRN Reason: Insomnia Last Admin: 04/04/25 23:21 Dose: 50 mg Allergies Allergies Allergy/AdvReac Type Severity Reaction Status Date / Time latex Allergy Unknown Verified 03/09/25 11:50 peanut Allergy Unknown Verified 03/09/25 11:50 Penicillins Allergy Unknown Verified 03/09/25 11:50 Assessment & Plan Assessment & Plan (1) Psychosis: Status: Acute Code(s): F29 - Unspecified psychosis not due to a substance or known physiological condition Assessment and Plan: r/o autoimmune reasons for psychosis including lupus. (2) Pulmonary nodules: Status: Acute Code(s): R91.8 - Other nonspecific abnormal finding of lung field Assessment and Plan: Bloodwork Per patient care nursing assistant on 04/13/2025- repeat chest CT in 2 weeks after 4 week course of prednisone and reassess need for bronchoscopy. (3) Rheumatoid arthritis involving hand with positive rheumatoid factor: Status: Acute Code(s): M05.749 - Rheumatoid arthritis with rheumatoid factor of unspecified hand without organ or systems involvement Plan Mrs. Sharif is a 69 year-old woman who presents with a 3 month hx of new onset of psychosis (AH) and combination of paranoid delusions and cap gras delusions. No prior psychiatric hx. She does have of cocaine use but apparently had not used in some years. Daughter suspects she may have relapsed but no ongoing use. Pt presents with more complex theme of delusions. No additional medical work up available including head CT. CBC and cmp unremarkable. 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 It may be related to dementia process but complexity of delusions and psychosis not the common presentation for dementia that have psychosis early on such as in vascular dementia or LBD. Pt presents as gravely disable to able to care for self due to symptoms of psychosis and delusions. 02/03 increase night time risperidone 2mg po qhs increase cogetin at bedtime to 1mg po qhs. lower daily dose to 0.5mg po daily. continue cogentin 0.5mg po daily. clonazepam as prn olanzapine as prn for agitation 02/04 continue tx. 02/05 continue tx. 02/06 continue current dose of risperidone. NOTE THAT pt can't take doses higher than 3 mg/day of risperidone as higher doses had severe EPS. can use olanzapine as well per court order. 02/07/25: Patient has been agitated yelling loudly exist seeking, delusional thinking her daughter/son outside at the door to pick her up. PRNs given in the morning with mild effect. Patient became agitated, aggressive\, assaultive to 1 of the staff on the floor, yelling and hitting her face so grabbing her neck. Physical was started at 16:31 to 1634. Patient was given IM medication of Zyprexa 10 and Valium 10 with good effect. Tomorrow plan: Patient will be benefit from Valium 10 mg twice a day and Zyprexa 5 mg 3 times a day is added into her scheduled medication as current plan with risperidone is not effective. Patient also having a backup for risperidone if she refused. 02/08/25: Slept most of the morning and last night. In better behavior control. No aggressive behavior. She is quiet, self dialogue, and medication compliant. Due to receive restrain medication yesterday. I did not make any medication change. But the Valium and additional Zyprexa appears to be helpful. 02/09 will try to change keppra to depakote for seizures as keppra may exacerbate psychosis. increase risperidone 1mg po daily and 2mg po qhs. may need to add second antipsychotic. 02/10 continues to present as paranoid with AH. at times declines oral medications, requiring IM back per court order. 02/11 continue tx. 02/12 continue tx. 02/13 continue tx. 02/14: no changes today. Monitor for agitation around confusion about hospitalization 02/15: no changes today, self dialogue more overt/extensive today 02/16 add olanzapine 5mg po qhs. continue risperidone. minimal improvement if any. 02/17 continue tx. 02/18 seems more somnolent with bedtime olanzapine, will continue to monitor. 02/19 cbc showed thrombocytopenia, which is new and suspect related to depakote 02/20 pt appears more sedated since addition of olanzapine at bedtime. She continues to self dialogue. minimal improvement. 02/21: Continue current management and treatment plan. 02/22: continue current management and treatment plan. 02/23 continue tx. may need to affirm HCP try different antipsychotic. 02/24 continue tx. results of LENORE 1:360, pattern homogenous A. 02/25 will try rexulti, lower risperidone. pending coordination of medical care to see if underlying autoimmune condition has anything to do with current presentation. 02/26 discussed with hospital tele marketing executive to dismiss sect 8, HCP invoked and can consent to other treatment. daughter Maricruz give permission to try different antipsychotic. 02/27 decrease risperidone to 1mg po daily, start prolixin 2.5mg po qhs, then increase to BID. continue olanzapine prn for agitation. olanzapine as well per court order. 03/03 pt seen by neurology, added HIV/RPR/LYME, can't have MRI due to cochlear implant. 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 Last Neurology appointment 01/2024. Missed appointment with rheumatology 05/2024, last seen in 02/26/2024. - Pt can't have MRI due to cochlear implant. Had head CT. - continue prolixin 2.5mg po daily, 5mg po qhs. will d/c risperidone, increase prolixin 5mg po BID, back up IM. 03/05 continue tx. 03/06 This freelance writer spoke with pt's lab support tech, Dr. Al obtained collateral information. Will coordinate with neurology and rheumatology once LP results are available. r/o reoccurance of pachymeningitis, lupus or other autoimmune cause for psychosis. 03/07: Continue current regimen and plans. Discontinued one-to-one and put in place 5 minute checks 03/08: Continue current plans and regimen 03/09 continue tx. 03/10: continue current mgmt. continues disorganized and psychotic. see neuro note from today. continue with neuro w/u. 03/11: given zyprexa 5 and valium [address] and head CTA. head CTA WNL, chest CT showed numerous pulmonary nodules up to 10 mm in size. no change in presentation. due to persistent requests for discharge, 3-day notice submitted on her behalf. will work toward HCP affirmation by the court. 03/12: per pulm consult, chest CT more c/w rheumatological process than CA, recommended empiric steroid course. awaiting input from neuro. consider Bx of nodules otherwise. continue current mgmt for now. 03/13: variably calm and agitated. planning for bronchoscopy with pulmonary nodule Bx on sunday. continue current mgmt. case discussed with HCP Maricruz (daughter), who is in agreement with plan. 03/14: CSF with notable findings. will f/u with neuro on sunday. stable presentation for now, remains quite psychotic. continue current mgmt. bronchoscopy sunday. 03/15: no change from yesterday in presentation or plan. 03/16: stable presentation. continues confused, wanting to go home. HCP affirmation tomorrow. continue current mgmt. 03/17: stable presdentation. bronchoscopy pending. continue current mgmt. 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 awaiting bronchoscopy. remains psychotic. continue current mgmt for now. 03/20: no change in presentation. still awaiting go-ahead for brochoscopy. continue current mgmt. 03/22: No changes. Noted above. 03/23: awaiting insurance approval for bronchoscopy. stable presentation. 03/24: as for yesterday. 03/25: loudly RIS in milieu today. bronchoscopy scheduled for sunday at 1130. NPO past MN night. stable presentation. continue current mgmt. 03/26 pt presents as more disorganized and inattentive than usual showing more signs of delirious behavior. bronchoscopy was canceled,due to shortage of needles to complete biopsy. will order cbc, cmp, ammonia levels given increase disorganized behavior and worsening attention pointing at a more delirious presentation. Review of results from LP showing negative results for meningitis panel/paraneoplastic panel (including most common antibody found in SLC which is EARL 1 which was negative), elevated protein in CSF 131 without leukocytosis, also elevated CSF/serum IgG index. elevated anti-ds dna titer 1:80. Such results may point more to a rheumatological condition than infectious condition or malignancy. Mrs. Sharif's OP lab support tech, Dr. Al recommends trial of prednisone 40mg po daily at least for 2 weeks. 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 03/31 increase prolixin to 5mg po BID. continue all other medications including prednisone 40mg po daily. 04/01 discussed with her OP lab support tech, Dr. Al possibility of transferring to [facility] for further tx of autoimmune condition, suspected also having lupus. continue prednisone. Spoke with daughter who is HCP, daughter concern about pt going to [facility] due to being dismissed several times when pt was first brought psychotic. 04/02 continue tx 04/03 increase prolixin to 5mg po TID. monitor EPS. 04/06 continue tx. 04/07- pending response from [facility] to see if they will take her for further evaluation of autoimmune condition with multidisciplinary team to continue see if psychosis related to autoimmune or primarily psychosis. Some improvement in attention, less guarded. continues to have auditory hallucinations. May consider switch to clozapine given that she has tried 3 antipsychotics with limited efficacy. 04/08 start clozapine 25mg po qhs. continue prolixin 7.5mg po TID. 04/09 increase clozapine to 50mg po qhs. continue prolixin 7.5mg po TID. 04/10 decrease prolixin to 7.5mg po BID. increase clozapine to 75mg po qhs. continue increasing clozapine by 25mg/day. patient care nursing assistant, recommends repeat CT in 2 weeks, and hold on bronchoscopy. 04/11: no change today, will titrate Clozapine further tomorrow 04/12: titrate Clozapine to 100 mg QHS 04/13 increase clozapine to 125mg po qhs. continue prolixin 7.5mg po BID. 04/14 Provided update to daughter Maricruz who is HCP in terms of pt being treated for both autoimmune condition that may be contributing to psychosis (with prednione) as well as primarily psychiatric disorder (although less likely) with clozapine. some improvement in attention, slightly less paranoid but continues to present with ongoing AH of her daughter. 04/15 continue tx. 04/16 continue tx. 04/17 start glycopyrralate for drooling, decrease cogentin. 04/17 increase clozapine 150mg po qhs, lower prolixin 2.5mg po BID. back up. 04/18: Continue current management and treatment plan. 04/19: continue current management and treatment plan. 04/20 increase clozapine to 175mg po qhs. 04/21 continue tx. 04/22 continue tx. 04/23 continue tx. will check clozapine levels. 04/[address] followed up done today- much less nodules seen. 04/27 no change in presentation, less paranoid towards staff but ongoing AH. Impaired awareness of surroundings and conversations mostly base on delusional content. Will consult as well with her OP Intranet Developer as to whether continue prednisone as initially recommended by rheumatology for suspected lupus, although it has had additional benefits in lung nodules. 04/28 increase clozapine 200mg po qhs. Reason for continued inpatient stay Substantial Risk for: inability to function Time Spent With Patient Time: Total time managing care of this patient today ____ minutes.
[2025-04-28 19:31] VITALS: BP 122/57; PULSE 100; RESP 18; TEMP 36.7; O2SAT 100
[2025-04-29 07:50] VITALS: BP 129/62; PULSE 72; RESP 16; TEMP 36.6; O2SAT 95
[2025-04-29] MEDS: levETIRAcetam Oral Soln 500 MG/5 ML 250 MG PO ×2 (08:17→20:11)
[2025-04-29] MEDS: NIFEdipine ER 30 MG TAB.ER.24 PO (08:17)
[2025-04-29] MEDS: Fluticasone/Vilanterol 200/25 BLST.W.DEV 1 PUFF INHALE (08:19)
[2025-04-29] MEDS: Tiotropium Bromide 2.5 mcg 1 PUFF/2.5 MCG MIST.INHAL INHALE (08:20)
--- NOTE | 2025-04-29 08:43 | HO.PSYCHPN ---
Subjective Subjective Date of Service: 04/29/25 Reason For Visit: Abnormal CT chest Subjective Notes: Section 8 Interim History: Pt slept through the night. Taking medications as prescribed. Continues to present with AH. Less paranoid towards staff and allows more support from nursing. However, conversations mostly informed by delusional thinking not so much reality. symptoms continue to impaired her functioning. No SI/HI. No aggression. Review of Systems Review of Systems Denies any shortness of breath, chest pain, dizziness, lightheadedness, abdominal pain or discomfort, nausea vomiting or diarrhea Yes all other systems are reviewed and are negative, Unobtainable due to mental condition, Unobtainable due to mental status and Other (patient refused to answer ROS questions) Constitutional: Reports as per HPI Eyes: Reports as per HPI Reports as per HPI Cardiovascular: Reports as per HPI Respiratory: Reports as per HPI Gastrointestinal: Reports as per HPI Musculoskeletal: Reports as per HPI Skin/Breast: Reports as per HPI Reports as per HPI and Reports confusion Psychiatric: Reports as per HPI and Reports confusion Endocrine: Reports as per HPI Hematologic/Lymphatic: Reports as per HPI Allergic/Immunologic: Reports as per HPI Mental Status Exam Mental Status Exam Narrative: Appearance: casual attire, adequate grooming and hygiene Behavior: calm, keeping to self, engagement limited by vision and hearing difficulties Orientation: alert, oriented to idea that she is in the hospital, year, month not date nor situation. Psychomotor Function: no agitation or slowing; no abnormal gestures or movements Speech: mostly clear, normal rate/rhythm/volume, spontaneous Mood: ok Affect: calm, non-labile Thought Process: more linear/organized. Thought Content: paranoid delusions of people coming to hurt others and attempting to hurt her Hallucinations: AH constantly talking to daughter who is not there. Delusions: paranoid delusions. Insight: impairment Judgment: impairment Impulsivity: none noted Diagnostics Vital Signs (24Hr): Vital Signs - 24 hr 04/28/25 19:31 Temperature 98.1 F Pulse Rate 100 Respiratory Rate 18 Blood Pressure 122/57 L Pulse Oximetry 100 Oxygen Delivery Method Room Air BMI result Body Mass Index 32.3 Labs 03/29/25 08:55 03/29/25 08:55 Imaging Radiology Impressions: ITS Impressions Head CT 03/05/25 15:51 IMPRESSION: 1. No acute intracranial abnormality. 2. Right-sided cochlear nerve implant with associated streak artifact. 3. Right-sided canal wall up mastoidectomy. Electronically signed by: Levi Greer MD 03/05/2025 04:25 PM EDT RP Lumbar Puncture Fluoroscopy 03/09/25 11:50 IMPRESSION: Successful fluoroscopy-guided lumbar puncture performed without immediate complications Electronically signed by: Thompson Andujar MD 03/09/2025 04:06 PM EDT RP Chest CT 03/11/25 11:52 IMPRESSION: 1. Multiple bilateral pulmonary nodules measuring up to 10 mm in size. Further evaluation should be based on Fleischner Society guidelines below. 2. Cardiomegaly. Findings consistent with pulmonary arterial hypertension. 3. No evidence of mediastinal or hilar lymphadenopathy. Fleischner Criteria for pulmonary nodule follow-up SOLID NODULES: Low risk patient: <6mm: no follow-up 6-8mm: 6 month follow-up CT >8mm: PET/Biopsy/ 3 month follow-up CT High risk patient: <6mm: 12 month follow-up CT 6-8mm: 6 month follow-up CT >8mm: PET/Biopsy/ 3 month follow-up CT SUB-SOLID/GROUNDGLASS NODULES: All patients: > or = 6mm: 6 month follow-up CT *Please note that in patients in the following categories, the Fleischner criteria do not apply: Immunocompromised, lung cancer screening population, age below 35, and patients with known malignancy Electronically signed by: Best Clemons MD 03/11/2025 01:45 PM EDT RP Head CTA 03/11/25 11:52 IMPRESSION: Head CT: No acute intracranial abnormality. CT angiogram of the head: No vascular occlusions. Electronically signed by: Gypsy Salamanca MD 03/11/2025 03:02 PM EDT RP Chest CT 04/24/25 09:58 IMPRESSION: 1. Majority of the previously seen pulmonary nodules have resolved, and were consistent with infectious or inflammatory etiology. 2. There is a persistent 9 mm nodular focus in the lateral right upper lobe, which is felt to represent scarring given the appearance. To be cautious, a 3 month interval follow-up CT is recommended to ensure stability. 3. There is mild to moderate paraseptal emphysema. There is no acute pneumonic consolidation. 4. There is thickening of the small airways suggesting bronchitis. 5. There is moderate cardiac enlargement. Enlarged main pulmonary artery is consistent with pulmonary arterial hypertension. Electronically signed by: Levi Greer MD 04/24/2025 10:56 AM EDT Medications Medications Current Medications Acetaminophen (Acetaminophen 325 Mg Tablet) 650 mg PO Q6H PRN PRN Reason: Headache/Pain, Scale 1-10 Last Admin: 04/27/25 09:02 Dose: 650 mg Al Hydroxide/Mg Hydroxide (Magnesium Hydrox/Alum Hydrox 30 Ml Oral.Susp) 30 ml PO Q6H PRN PRN Reason: Heartburn/Nausea Albuterol Sulfate (Albuterol Sulfate 90 Mcg 8 Gm Inhaler) 2 puff INHALE Q4H PRN PRN Reason: Shortness Of Breath Or Wheezing Last Admin: 04/27/25 09:02 Dose: 2 puff Atorvastatin Calcium (Atorvastatin Calcium 40 Mg Tablet) 40 mg PO DAILY [facility] Last Admin: 04/29/25 08:17 Dose: 40 mg Clonazepam (Clonazepam Odt 0.5 Mg Tab.Rapdis) 0.5 mg PO BID PRN PRN Reason: severe anxiety/sleep Last Admin: 03/31/25 20:37 Dose: 0.5 mg Clozapine (Clozapine 100 Mg Tablet) 200 mg PO BEDTIME [facility] Last Admin: 04/28/25 19:33 Dose: 200 mg Fluphenazine HCl (Fluphenazine Hcl 2.5 Mg/Ml 10 Ml Vial) 2.5 mg IM BID PRN PRN Reason: give if refuses oral per HCP Last Admin: 03/05/25 09:42 Dose: 2.5 mg Fluphenazine HCl (Fluphenazine Hcl 2.5 Mg Tablet) 2.5 mg PO BID [facility] Last Admin: 04/29/25 08:18 Dose: 2.5 mg Fluticasone/Vilanterol (Fluticasone/Vilanterol 200/25 Blst.W.Dev) 1 puff INHALE RDAILY [facility] Last Admin: 04/29/25 08:19 Dose: 1 puff Glycopyrrolate (Glycopyrrolate 1 Mg Tablet) 0.5 mg PO BID [facility] Last Admin: 04/29/25 08:17 Dose: 0.5 mg Hydrochlorothiazide (Hydrochlorothiazide 25 Mg Tablet) 25 mg PO DAILY [facility] Last Admin: 04/29/25 08:18 Dose: 25 mg Levetiracetam (Levetiracetam Oral Soln 500 Mg/5 Ml) 250 mg PO BID [facility] Last Admin: 04/29/25 08:17 Dose: 250 mg Magnesium Hydroxide (Milk Of Magnesia 30 Ml Oral.Susp) 30 ml PO DAILY PRN PRN Reason: Constipation Methimazole (Methimazole 5 Mg Tablet) 5 mg PO DAILY [facility] Last Admin: 04/29/25 08:20 Dose: 5 mg Naloxone HCl (Naloxone Hcl 0.4 Mg/Ml Vial) 0.04 mg IVPUSH Q5M PRN PRN Reason: Excessive sedation or RR < 8 Nifedipine (Nifedipine Er 30 Mg Tab.Er.24) 30 mg PO DAILY [facility]; Protocol Last Admin: 04/29/25 08:17 Dose: 30 mg Olanzapine (Olanzapine 10 Mg Tablet) 10 mg PO Q6H PRN PRN Reason: severe agitation Last Admin: 04/16/25 16:28 Dose: 10 mg Prednisone (Prednisone 20 Mg Tablet) 40 mg PO DAILY [facility] Last Admin: 04/29/25 08:16 Dose: 40 mg Tiotropium [place] (Tiotropium [place] 2.5 Mcg 1 Puff/2.5 Mcg Mist.Inhal) 1 puff INHALE RDAILY [facility] Last Admin: 04/29/25 08:20 Dose: 1 puff Trazodone HCl (Trazodone Hcl 50 Mg Tablet) 50 mg PO BEDTIME MRX1 PRN PRN Reason: Insomnia Last Admin: 04/04/25 23:21 Dose: 50 mg Allergies Allergies Allergy/AdvReac Type Severity Reaction Status Date / Time latex Allergy Unknown Verified 03/09/25 11:50 peanut Allergy Unknown Verified 03/09/25 11:50 Penicillins Allergy Unknown Verified 03/09/25 11:50 Assessment & Plan Assessment & Plan (1) Psychosis: Status: Acute Code(s): F29 - Unspecified psychosis not due to a substance or known physiological condition Assessment and Plan: r/o autoimmune reasons for psychosis including lupus. 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 Sharif is a 69 year-old woman who presents with a 3 month hx of new onset of psychosis (AH) and combination of paranoid delusions and cap gras delusions. No prior psychiatric hx. She does have of cocaine use but apparently had not used in some years. Daughter suspects she may have relapsed but no ongoing use. Pt presents with more complex theme of delusions. No additional medical work up available including head CT. CBC and cmp unremarkable. 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 It may be related to dementia process but complexity of delusions and psychosis not the common presentation for dementia that have psychosis early on such as in vascular dementia or LBD. Pt presents as gravely disable to able to care for self due to symptoms of psychosis and delusions. 02/03 increase night time risperidone 2mg po qhs increase cogetin at bedtime to 1mg po qhs. lower daily dose to 0.5mg po daily. continue cogentin 0.5mg po daily. clonazepam as prn olanzapine as prn for agitation 02/04 continue tx. 02/05 continue tx. 02/06 continue current dose of risperidone. NOTE THAT pt can't take doses higher than 3 mg/day of risperidone as higher doses had severe EPS. can use olanzapine as well per court order. 02/07/25: Patient has been agitated yelling loudly exist seeking, delusional thinking her daughter/son outside at the door to pick her up. PRNs given in the morning with mild effect. Patient became agitated, aggressive\, assaultive to 1 of the staff on the floor, yelling and hitting her face so grabbing her neck. Physical was started at 16:31 to 1634. Patient was given IM medication of Zyprexa 10 and Valium 10 with good effect. Tomorrow plan: Patient will be benefit from Valium 10 mg twice a day and Zyprexa 5 mg 3 times a day is added into her scheduled medication as current plan with risperidone is not effective. Patient also having a backup for risperidone if she refused. 02/08/25: Slept most of the morning and last night. In better behavior control. No aggressive behavior. She is quiet, self dialogue, and medication compliant. Due to receive restrain medication yesterday. I did not make any medication change. But the Valium and additional Zyprexa appears to be helpful. 02/09 will try to change keppra to depakote for seizures as keppra may exacerbate psychosis. increase risperidone 1mg po daily and 2mg po qhs. may need to add second antipsychotic. 02/10 continues to present as paranoid with AH. at times declines oral medications, requiring IM back per court order. 02/11 continue tx. 02/12 continue tx. 02/13 continue tx. 02/14: no changes today. Monitor for agitation around confusion about hospitalization 02/15: no changes today, self dialogue more overt/extensive today 02/16 add olanzapine 5mg po qhs. continue risperidone. minimal improvement if any. 02/17 continue tx. 02/18 seems more somnolent with bedtime olanzapine, will continue to monitor. 02/19 cbc showed thrombocytopenia, which is new and suspect related to depakote 02/20 pt appears more sedated since addition of olanzapine at bedtime. She continues to self dialogue. minimal improvement. 02/21: Continue current management and treatment plan. 02/22: continue current management and treatment plan. 02/23 continue tx. may need to affirm HCP try different antipsychotic. 02/24 continue tx. results of LENORE 1:360, pattern homogenous A. 02/25 will try rexulti, lower risperidone. pending coordination of medical care to see if underlying autoimmune condition has anything to do with current presentation. 02/26 discussed with hospital claim attorney to dismiss sect 8, HCP invoked and can consent to other treatment. daughter Maricruz give permission to try different antipsychotic. 02/27 decrease risperidone to 1mg po daily, start prolixin 2.5mg po qhs, then increase to BID. continue olanzapine prn for agitation. olanzapine as well per court order. 03/03 pt seen by neurology, added HIV/RPR/LYME, can't have MRI due to cochlear implant. 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 Last Neurology appointment 01/2024. Missed appointment with rheumatology 05/2024, last seen in 02/26/2024. - Pt can't have MRI due to cochlear implant. Had head CT. - continue prolixin 2.5mg po daily, 5mg po qhs. will d/c risperidone, increase prolixin 5mg po BID, back up IM. 03/05 continue tx. 03/06 This movie writer spoke with pt's shirt finisher, Dr. Al obtained collateral information. Will coordinate with neurology and rheumatology once LP results are available. r/o reoccurance of pachymeningitis, lupus or other autoimmune cause for psychosis. 03/07: Continue current regimen and plans. Discontinued one-to-one and put in place 5 minute checks 03/08: Continue current plans and regimen 03/09 continue tx. 03/10: continue current mgmt. continues disorganized and psychotic. see neuro note from today. continue with neuro w/u. 03/11: given zyprexa 5 and valium [address] and head CTA. head CTA WNL, chest CT showed numerous pulmonary nodules up to 10 mm in size. no change in presentation. due to persistent requests for discharge, 3-day notice submitted on her behalf. will work toward HCP affirmation by the court. 03/12: per pulm consult, chest CT more c/w rheumatological process than CA, recommended empiric steroid course. awaiting input from neuro. consider Bx of nodules otherwise. continue current mgmt for now. 03/13: variably calm and agitated. planning for bronchoscopy with pulmonary nodule Bx on sunday. continue current mgmt. case discussed with HCP Maricruz (daughter), who is in agreement with plan. 03/14: CSF with notable findings. will f/u with neuro on sunday. stable presentation for now, remains quite psychotic. continue current mgmt. bronchoscopy sunday. 03/15: no change from yesterday in presentation or plan. 03/16: stable presentation. continues confused, wanting to go home. HCP affirmation tomorrow. continue current mgmt. 03/17: stable presdentation. bronchoscopy pending. continue current mgmt. 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 awaiting bronchoscopy. remains psychotic. continue current mgmt for now. 03/20: no change in presentation. still awaiting go-ahead for brochoscopy. continue current mgmt. 03/22: No changes. Noted above. 03/23: awaiting insurance approval for bronchoscopy. stable presentation. 03/24: as for yesterday. 03/25: loudly RIS in milieu today. bronchoscopy scheduled for sunday at 1130. NPO past MN night. stable presentation. continue current mgmt. 03/26 pt presents as more disorganized and inattentive than usual showing more signs of delirious behavior. bronchoscopy was canceled,due to shortage of needles to complete biopsy. will order cbc, cmp, ammonia levels given increase disorganized behavior and worsening attention pointing at a more delirious presentation. Review of results from LP showing negative results for meningitis panel/paraneoplastic panel (including most common antibody found in SLC which is EARL 1 which was negative), elevated protein in CSF 131 without leukocytosis, also elevated CSF/serum IgG index. elevated anti-ds dna titer 1:80. Such results may point more to a rheumatological condition than infectious condition or malignancy. Mrs. Sharif's OP shirt finisher, Dr. Al recommends trial of prednisone 40mg po daily at least for 2 weeks. 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 03/31 increase prolixin to 5mg po BID. continue all other medications including prednisone 40mg po daily. 04/01 discussed with her OP shirt finisher, Dr. Al possibility of transferring to [facility] for further tx of autoimmune condition, suspected also having lupus. continue prednisone. Spoke with daughter who is HCP, daughter concern about pt going to [facility] due to being dismissed several times when pt was first brought psychotic. 04/02 continue tx 04/03 increase prolixin to 5mg po TID. monitor EPS. 04/06 continue tx. 04/07- pending response from [facility] to see if they will take her for further evaluation of autoimmune condition with multidisciplinary team to continue see if psychosis related to autoimmune or primarily psychosis. Some improvement in attention, less guarded. continues to have auditory hallucinations. May consider switch to clozapine given that she has tried 3 antipsychotics with limited efficacy. 04/08 start clozapine 25mg po qhs. continue prolixin 7.5mg po TID. 04/09 increase clozapine to 50mg po qhs. continue prolixin 7.5mg po TID. 04/10 decrease prolixin to 7.5mg po BID. increase clozapine to 75mg po qhs. continue increasing clozapine by 25mg/day. saw man, recommends repeat CT in 2 weeks, and hold on bronchoscopy. 04/11: no change today, will titrate Clozapine further tomorrow 04/12: titrate Clozapine to 100 mg QHS 04/13 increase clozapine to 125mg po qhs. continue prolixin 7.5mg po BID. 04/14 Provided update to daughter Maricruz who is HCP in terms of pt being treated for both autoimmune condition that may be contributing to psychosis (with prednione) as well as primarily psychiatric disorder (although less likely) with clozapine. some improvement in attention, slightly less paranoid but continues to present with ongoing AH of her daughter. 04/15 continue tx. 04/16 continue tx. 04/17 start glycopyrralate for drooling, decrease cogentin. 04/17 increase clozapine 150mg po qhs, lower prolixin 2.5mg po BID. back up. 04/18: Continue current management and treatment plan. 04/19: continue current management and treatment plan. 04/20 increase clozapine to 175mg po qhs. 04/21 continue tx. 04/22 continue tx. 04/23 continue tx. will check clozapine levels. 04/[address] followed up done today- much less nodules seen. 04/27 no change in presentation, less paranoid towards staff but ongoing AH. Impaired awareness of surroundings and conversations mostly base on delusional content. Will consult as well with her OP [employer]isher as to whether continue prednisone as initially recommended by rheumatology for suspected lupus, although it has had additional benefits in lung nodules. 04/28 increase clozapine 200mg po qhs. 04/[address] showed improvement in her pulmonary nodules and absence of pulmonary symptoms otherwise. recommendation to taper off prednison slowly with repeat of chest CT in 3 months for stability of reminder of nodules. her OP shirt finisher did want to continue prednisone for suspected lupus, may discuss further with rheumatology if they want to continue prenisone or stop it. Reason for continued inpatient stay Substantial Risk for: inability to function Time Spent With Patient Time: Total time managing care of this patient today ____ minutes.
[2025-04-29 20:00] VITALS: BP 130/70; PULSE 75; RESP 16; TEMP 36; O2SAT 95
[2025-04-30 08:00] VITALS: BP 174/77; PULSE 68; RESP 17; TEMP 36.4; O2SAT 96
[2025-04-30 08:39] VITALS: BP 174/77
[2025-04-30] MEDS: Tiotropium Bromide 2.5 mcg 1 PUFF/2.5 MCG MIST.INHAL INHALE (08:39)
[2025-04-30] MEDS: Fluticasone/Vilanterol 200/25 BLST.W.DEV 1 PUFF INHALE (08:39)
[2025-04-30 08:41] VITALS: BP 174/77
[2025-04-30] MEDS: NIFEdipine ER 30 MG TAB.ER.24 PO (08:41)
[2025-04-30] MEDS: levETIRAcetam Oral Soln 500 MG/5 ML 250 MG PO ×2 (08:46→20:14)
[2025-04-30 10:17] VITALS: BMI 31.9
[2025-04-30 11:32] LABS: Neut%MD 79.5 %; WBCANC 8.9 X10*3/uL
--- NOTE | 2025-04-30 17:09 | P.PNPSI_ITS ---
Subjective Subjective Date of Service: 04/30/25 Reason For Visit: Abnormal CT chest Subjective Notes: Section 8 Interim History: Pt slept through the night. Taking medications as prescribed. Continues to present with AH. Less paranoid towards staff and allows more support from nursing. However, conversations mostly informed by delusional thinking not so much reality. symptoms continue to impaired her functioning. No SI/HI. No aggression. Review of Systems Review of Systems Denies any shortness of breath, chest pain, dizziness, lightheadedness, abdominal pain or discomfort, nausea vomiting or diarrhea Yes all other systems are reviewed and are negative, Unobtainable due to mental condition, Unobtainable due to mental status and Other (patient refused to answer ROS questions) Constitutional: Reports as per HPI Eyes: Reports as per HPI Reports as per HPI Cardiovascular: Reports as per HPI Respiratory: Reports as per HPI Gastrointestinal: Reports as per HPI Musculoskeletal: Reports as per HPI Skin/Breast: Reports as per HPI Reports as per HPI and Reports confusion Psychiatric: Reports as per HPI and Reports confusion Endocrine: Reports as per HPI Hematologic/Lymphatic: Reports as per HPI Allergic/Immunologic: Reports as per HPI Mental Status Exam Mental Status Exam Narrative: Appearance: casual attire, adequate grooming and hygiene Behavior: calm, keeping to self, engagement limited by vision and hearing difficulties Orientation: alert, oriented to idea that she is in the hospital, year, month not date nor situation. Psychomotor Function: no agitation or slowing; no abnormal gestures or movements Speech: mostly clear, normal rate/rhythm/volume, spontaneous Mood: ok Affect: calm, non-labile Thought Process: more linear/organized. Thought Content: paranoid delusions of people coming to hurt others and attempting to hurt her Hallucinations: AH constantly talking to daughter who is not there. Delusions: paranoid delusions. Insight: impairment Judgment: impairment Impulsivity: none noted Patient Appearance: Appropriate and Unkempt Patient Orientation: Person and Situation Level of Consciousness: Awake and Restless Patient Behavior: Talkative and Poor Eye Contact Mood Description: Labile Affect Description: Labile Patient Cognition Impaired: No Ability to Follow Directions: Poor Speech Pattern: Rambling and Poor Articulation Memory Description: Remote Impaired Diagnostics Vital Signs (24Hr): Vital Signs - 24 hr 04/29/25 20:00 04/30/25 08:00 04/30/25 08:39 Temperature 96.8 F 97.5 F Pulse Rate 75 68 Respiratory Rate 16 17 Blood Pressure 130/70 174/77 H 174/77 H Pulse Oximetry 95 96 Oxygen Delivery Method Room Air Room Air 04/30/25 08:41 Temperature Pulse Rate Respiratory Rate Blood Pressure 174/77 H Pulse Oximetry Oxygen Delivery Method BMI result Body Mass Index 31.9 Labs 03/29/25 08:55 03/29/25 08:55 Labs: Laboratory Results - last 48 hr 04/30/25 11:23 Absolute Neuts (auto) 7.1 Imaging Radiology Impressions: ITS Impressions Head CT 03/05/25 15:51 IMPRESSION: 1. No acute intracranial abnormality. 2. Right-sided cochlear nerve implant with associated streak artifact. 3. Right-sided canal wall up mastoidectomy. Electronically signed by: Levi Greer MD 03/05/2025 04:25 PM EDT RP Lumbar Puncture Fluoroscopy 03/09/25 11:50 IMPRESSION: Successful fluoroscopy-guided lumbar puncture performed without immediate complications Electronically signed by: Thompson Andujar MD 03/09/2025 04:06 PM EDT RP Chest CT 03/11/25 11:52 IMPRESSION: 1. Multiple bilateral pulmonary nodules measuring up to 10 mm in size. Further evaluation should be based on Fleischner Society guidelines below. 2. Cardiomegaly. Findings consistent with pulmonary arterial hypertension. 3. No evidence of mediastinal or hilar lymphadenopathy. Fleischner Criteria for pulmonary nodule follow-up SOLID NODULES: Low risk patient: <6mm: no follow-up 6-8mm: 6 month follow-up CT >8mm: PET/Biopsy/ 3 month follow-up CT High risk patient: <6mm: 12 month follow-up CT 6-8mm: 6 month follow-up CT >8mm: PET/Biopsy/ 3 month follow-up CT SUB-SOLID/GROUNDGLASS NODULES: All patients: > or = 6mm: 6 month follow-up CT *Please note that in patients in the following categories, the Fleischner criteria do not apply: Immunocompromised, lung cancer screening population, age below 35, and patients with known malignancy Electronically signed by: Best Clemons MD 03/11/2025 01:45 PM EDT RP Head CTA 03/11/25 11:52 IMPRESSION: Head CT: No acute intracranial abnormality. CT angiogram of the head: No vascular occlusions. Electronically signed by: Gypsy Salamanca MD 03/11/2025 03:02 PM EDT RP Chest CT 04/24/25 09:58 IMPRESSION: 1. Majority of the previously seen pulmonary nodules have resolved, and were consistent with infectious or inflammatory etiology. 2. There is a persistent 9 mm nodular focus in the lateral right upper lobe, which is felt to represent scarring given the appearance. To be cautious, a 3 month interval follow-up CT is recommended to ensure stability. 3. There is mild to moderate paraseptal emphysema. There is no acute pneumonic consolidation. 4. There is thickening of the small airways suggesting bronchitis. 5. There is moderate cardiac enlargement. Enlarged main pulmonary artery is consistent with pulmonary arterial hypertension. Electronically signed by: Levi Greer MD 04/24/2025 10:56 AM EDT Medications Medications Current Medications Acetaminophen (Acetaminophen 325 Mg Tablet) 650 mg PO Q6H PRN PRN Reason: Headache/Pain, Scale 1-10 Last Admin: 04/27/25 09:02 Dose: 650 mg Al Hydroxide/Mg Hydroxide (Magnesium Hydrox/Alum Hydrox 30 Ml Oral.Susp) 30 ml PO Q6H PRN PRN Reason: Heartburn/Nausea Albuterol Sulfate (Albuterol Sulfate 90 Mcg 8 Gm Inhaler) 2 puff INHALE Q4H PRN PRN Reason: Shortness Of Breath Or Wheezing Last Admin: 04/27/25 09:02 Dose: 2 puff Atorvastatin Calcium (Atorvastatin Calcium 40 Mg Tablet) 40 mg PO DAILY [facility] Last Admin: 04/30/25 08:42 Dose: 40 mg Clonazepam (Clonazepam Odt 0.5 Mg Tab.Rapdis) 0.5 mg PO BID PRN PRN Reason: severe anxiety/sleep Last Admin: 03/31/25 20:37 Dose: 0.5 mg Clozapine (Clozapine 100 Mg Tablet) 200 mg PO BEDTIME [facility] Last Admin: 04/29/25 20:01 Dose: 200 mg Fluphenazine HCl (Fluphenazine Hcl 2.5 Mg/Ml 10 Ml Vial) 2.5 mg IM BID PRN PRN Reason: give if refuses oral per HCP Last Admin: 03/05/25 09:42 Dose: 2.5 mg Fluphenazine HCl (Fluphenazine Hcl 2.5 Mg Tablet) 2.5 mg PO BID [facility] Last Admin: 04/30/25 08:42 Dose: 2.5 mg Fluticasone/Vilanterol (Fluticasone/Vilanterol 200/25 Blst.W.Dev) 1 puff INHALE RDAILY [facility] Last Admin: 04/30/25 08:39 Dose: 1 puff Glycopyrrolate (Glycopyrrolate 1 Mg Tablet) 0.5 mg PO BID [facility] Last Admin: 04/30/25 08:42 Dose: 0.5 mg Hydrochlorothiazide (Hydrochlorothiazide 25 Mg Tablet) 25 mg PO DAILY [facility] Last Admin: 04/30/25 08:39 Dose: 25 mg Levetiracetam (Levetiracetam Oral Soln 500 Mg/5 Ml) 250 mg PO BID [facility] Last Admin: 04/30/25 08:46 Dose: 250 mg Magnesium Hydroxide (Milk Of Magnesia 30 Ml Oral.Susp) 30 ml PO DAILY PRN PRN Reason: Constipation Methimazole (Methimazole 5 Mg Tablet) 5 mg PO DAILY [facility] Last Admin: 04/30/25 08:43 Dose: 5 mg Naloxone HCl (Naloxone Hcl 0.4 Mg/Ml Vial) 0.04 mg IVPUSH Q5M PRN PRN Reason: Excessive sedation or RR < 8 Nifedipine (Nifedipine Er 30 Mg Tab.Er.24) 30 mg PO DAILY [facility]; Protocol Last Admin: 04/30/25 08:41 Dose: 30 mg Olanzapine (Olanzapine 10 Mg Tablet) 10 mg PO Q6H PRN PRN Reason: severe agitation Last Admin: 04/16/25 16:28 Dose: 10 mg Prednisone (Prednisone 20 Mg Tablet) 40 mg PO DAILY [facility] Last Admin: 04/30/25 08:41 Dose: 40 mg Tiotropium [place] (Tiotropium [place] 2.5 Mcg 1 Puff/2.5 Mcg Mist.Inhal) 1 puff INHALE RDAILY [facility] Last Admin: 04/30/25 08:39 Dose: 1 puff Trazodone HCl (Trazodone Hcl 50 Mg Tablet) 50 mg PO BEDTIME MRX1 PRN PRN Reason: Insomnia Last Admin: 04/04/25 23:21 Dose: 50 mg Allergies Allergies Allergy/AdvReac Type Severity Reaction Status Date / Time latex Allergy Unknown Verified 03/09/25 11:50 peanut Allergy Unknown Verified 03/09/25 11:50 Penicillins Allergy Unknown Verified 03/09/25 11:50 Assessment & Plan Assessment & Plan (1) Psychosis: Status: Acute Code(s): F29 - Unspecified psychosis not due to a substance or known physiological condition Assessment and Plan: r/o autoimmune reasons for psychosis including lupus. 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 Sharif is a 69 year-old woman who presents with a 3 month hx of new onset of psychosis (AH) and combination of paranoid delusions and cap gras delusions. No prior psychiatric hx. She does have of cocaine use but apparently had not used in some years. Daughter suspects she may have relapsed but no ongoing use. Pt presents with more complex theme of delusions. No additional medical work up available including head CT. CBC and cmp unremarkable. 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 It may be related to dementia process but complexity of delusions and psychosis not the common presentation for dementia that have psychosis early on such as in vascular dementia or LBD. Pt presents as gravely disable to able to care for self due to symptoms of psychosis and delusions. 02/03 increase night time risperidone 2mg po qhs increase cogetin at bedtime to 1mg po qhs. lower daily dose to 0.5mg po daily. continue cogentin 0.5mg po daily. clonazepam as prn olanzapine as prn for agitation 02/04 continue tx. 02/05 continue tx. 02/06 continue current dose of risperidone. NOTE THAT pt can't take doses higher than 3 mg/day of risperidone as higher doses had severe EPS. can use olanzapine as well per court order. 02/07/25: Patient has been agitated yelling loudly exist seeking, delusional thinking her daughter/son outside at the door to pick her up. PRNs given in the morning with mild effect. Patient became agitated, aggressive\, assaultive to 1 of the staff on the floor, yelling and hitting her face so grabbing her neck. Physical was started at 16:31 to 1634. Patient was given IM medication of Zyprexa 10 and Valium 10 with good effect. Tomorrow plan: Patient will be benefit from Valium 10 mg twice a day and Zyprexa 5 mg 3 times a day is added into her scheduled medication as current plan with risperidone is not effective. Patient also having a backup for risperidone if she refused. 02/08/25: Slept most of the morning and last night. In better behavior control. No aggressive behavior. She is quiet, self dialogue, and medication compliant. Due to receive restrain medication yesterday. I did not make any medication change. But the Valium and additional Zyprexa appears to be helpful. 02/09 will try to change keppra to depakote for seizures as keppra may exacerbate psychosis. increase risperidone 1mg po daily and 2mg po qhs. may need to add second antipsychotic. 02/10 continues to present as paranoid with AH. at times declines oral medications, requiring IM back per court order. 02/11 continue tx. 02/12 continue tx. 02/13 continue tx. 02/14: no changes today. Monitor for agitation around confusion about hospitalization 02/15: no changes today, self dialogue more overt/extensive today 02/16 add olanzapine 5mg po qhs. continue risperidone. minimal improvement if any. 02/17 continue tx. 02/18 seems more somnolent with bedtime olanzapine, will continue to monitor. 02/19 cbc showed thrombocytopenia, which is new and suspect related to depakote 02/20 pt appears more sedated since addition of olanzapine at bedtime. She continues to self dialogue. minimal improvement. 02/21: Continue current management and treatment plan. 02/22: continue current management and treatment plan. 02/23 continue tx. may need to affirm HCP try different antipsychotic. 02/24 continue tx. results of LENORE 1:360, pattern homogenous A. 02/25 will try rexulti, lower risperidone. pending coordination of medical care to see if underlying autoimmune condition has anything to do with current presentation. 02/26 discussed with hospital transactional attorney to dismiss sect 8, HCP invoked and can consent to other treatment. daughter Maricruz give permission to try different antipsychotic. 02/27 decrease risperidone to 1mg po daily, start prolixin 2.5mg po qhs, then increase to BID. continue olanzapine prn for agitation. olanzapine as well per court order. 03/03 pt seen by neurology, added HIV/RPR/LYME, can't have MRI due to cochlear implant. 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 Last Neurology appointment 01/2024. Missed appointment with rheumatology 05/2024, last seen in 02/26/2024. - Pt can't have MRI due to cochlear implant. Had head CT. - continue prolixin 2.5mg po daily, 5mg po qhs. will d/c risperidone, increase prolixin 5mg po BID, back up IM. 03/05 continue tx. 03/06 This insurance underwriter spoke with pt's virtual reality specialist, Dr. Al obtained collateral information. Will coordinate with neurology and rheumatology once LP results are available. r/o reoccurance of pachymeningitis, lupus or other autoimmune cause for psychosis. 03/07: Continue current regimen and plans. Discontinued one-to-one and put in place 5 minute checks 03/08: Continue current plans and regimen 03/09 continue tx. 03/10: continue current mgmt. continues disorganized and psychotic. see neuro note from today. continue with neuro w/u. 03/11: given zyprexa 5 and valium [address] and head CTA. head CTA WNL, chest CT showed numerous pulmonary nodules up to 10 mm in size. no change in presentation. due to persistent requests for discharge, 3-day notice submitted on her behalf. will work toward HCP affirmation by the court. 03/12: per pulm consult, chest CT more c/w rheumatological process than CA, recommended empiric steroid course. awaiting input from neuro. consider Bx of nodules otherwise. continue current mgmt for now. 03/13: variably calm and agitated. planning for bronchoscopy with pulmonary nodule Bx on sunday. continue current mgmt. case discussed with HCP Maricruz (daughter), who is in agreement with plan. 03/14: CSF with notable findings. will f/u with neuro on sunday. stable presentation for now, remains quite psychotic. continue current mgmt. bronchoscopy sunday. 03/15: no change from yesterday in presentation or plan. 03/16: stable presentation. continues confused, wanting to go home. HCP affirmation tomorrow. continue current mgmt. 03/17: stable presdentation. bronchoscopy pending. continue current mgmt. 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 awaiting bronchoscopy. remains psychotic. continue current mgmt for now. 03/20: no change in presentation. still awaiting go-ahead for brochoscopy. continue current mgmt. 03/22: No changes. Noted above. 03/23: awaiting insurance approval for bronchoscopy. stable presentation. 03/24: as for yesterday. 03/25: loudly RIS in milieu today. bronchoscopy scheduled for sunday at 1130. NPO past MN night. stable presentation. continue current mgmt. 03/26 pt presents as more disorganized and inattentive than usual showing more signs of delirious behavior. bronchoscopy was canceled,due to shortage of needles to complete biopsy. will order cbc, cmp, ammonia levels given increase disorganized behavior and worsening attention pointing at a more delirious presentation. * Review of results from LP showing negative results for meningitis panel/paraneoplastic panel (including most common antibody found in SLC which is EARL 1 which was negative), elevated protein in CSF 131 without leukocytosis, also elevated CSF/serum IgG index. elevated anti-ds dna titer 1:80. Such results may point more to a rheumatological condition than infectious condition or malignancy. Mrs. Sharif's OP virtual reality specialist, Dr. Al recommends trial of prednisone 40mg po daily at least for 2 weeks. 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 03/31 increase prolixin to 5mg po BID. continue all other medications including prednisone 40mg po daily. 04/01 discussed with her OP virtual reality specialist, Dr. Al possibility of transferring to [facility] for further tx of autoimmune condition, suspected also having lupus. continue prednisone. Spoke with daughter who is HCP, daughter concern about pt going to [facility] due to being dismissed several times when pt was first brought psychotic. 04/02 continue tx 04/03 increase prolixin to 5mg po TID. monitor EPS. 04/06 continue tx. 04/07- pending response from [facility] to see if they will take her for further evaluation of autoimmune condition with multidisciplinary team to continue see if psychosis related to autoimmune or primarily psychosis. Some improvement in attention, less guarded. continues to have auditory hallucinations. May consider switch to clozapine given that she has tried 3 antipsychotics with limited efficacy. 04/08 start clozapine 25mg po qhs. continue prolixin 7.5mg po TID. 04/09 increase clozapine to 50mg po qhs. continue prolixin 7.5mg po TID. 04/10 decrease prolixin to 7.5mg po BID. increase clozapine to 75mg po qhs. continue increasing clozapine by 25mg/day. tube winder hand, recommends repeat CT in 2 weeks, and hold on bronchoscopy. 04/11: no change today, will titrate Clozapine further tomorrow 04/12: titrate Clozapine to 100 mg QHS 04/13 increase clozapine to 125mg po qhs. continue prolixin 7.5mg po BID. 04/14 Provided update to daughter Maricruz who is HCP in terms of pt being treated for both autoimmune condition that may be contributing to psychosis (with prednione) as well as primarily psychiatric disorder (although less likely) with clozapine. some improvement in attention, slightly less paranoid but continues to present with ongoing AH of her daughter. 04/15 continue tx. 04/16 continue tx. 04/17 start glycopyrralate for drooling, decrease cogentin. 04/17 increase clozapine 150mg po qhs, lower prolixin 2.5mg po BID. back up. 04/18: Continue current management and treatment plan. 04/19: continue current management and treatment plan. 04/20 increase clozapine to 175mg po qhs. 04/21 continue tx. 04/22 continue tx. 04/23 continue tx. will check clozapine levels. 04/[address] followed up done today- much less nodules seen. 04/27 no change in presentation, less paranoid towards staff but ongoing AH. Impaired awareness of surroundings and conversations mostly base on delusional content. Will consult as well with her OP Supervisor [employer] as to whether continue prednisone as initially recommended by rheumatology for suspected lupus, although it has had additional benefits in lung nodules. 04/28 increase clozapine 200mg po qhs. 04/[address] showed improvement in her pulmonary nodules and absence of pulmonary symptoms otherwise. recommendation to taper off prednisone slowly with repeat of chest CT in 3 months for stability of reminder of nodules. her OP virtual reality specialist did want to continue prednisone for suspected lupus, may discuss further with rheumatology if they want to continue prednisone or stop it. 04/30 continue tx. Reason for continued inpatient stay Substantial Risk for: inability to function Time Spent With Patient Time: Total time managing care of this patient today ____ minutes.
[2025-04-30 19:59] VITALS: BP 120/60; PULSE 75; RESP 18; TEMP 36.6; O2SAT 98
[2025-05-01 09:33] VITALS: BP 137/62; PULSE 64; RESP 18; TEMP 36.2; O2SAT 97
[2025-05-01] MEDS: Tiotropium Bromide 2.5 mcg 1 PUFF/2.5 MCG MIST.INHAL INHALE (09:34)
[2025-05-01] MEDS: NIFEdipine ER 30 MG TAB.ER.24 PO (09:36)
[2025-05-01] MEDS: Fluticasone/Vilanterol 200/25 BLST.W.DEV 1 PUFF INHALE (09:37)
[2025-05-01] MEDS: Albuterol Sulfate 90 MCG 8 GM INHALER 2 PUFF INHALE (09:58)
[2025-05-01] MEDS: levETIRAcetam Oral Soln 500 MG/5 ML 250 MG PO ×2 (10:00→20:05)
--- NOTE | 2025-05-01 16:28 | HO.PSYCHPN ---
Subjective Subjective Date of Service: 05/01/25 Reason For Visit: Abnormal CT chest Subjective Notes: Section 8 Interim History: Pt slept through the night. Taking medications as prescribed. Continues to present with AH. Less paranoid towards staff and allows more support from nursing. However, conversations mostly informed by delusional thinking not so much reality. symptoms continue to impaired her functioning. No SI/HI. No aggression. Review of Systems Review of Systems Denies any shortness of breath, chest pain, dizziness, lightheadedness, abdominal pain or discomfort, nausea vomiting or diarrhea Yes all other systems are reviewed and are negative, Unobtainable due to mental condition, Unobtainable due to mental status and Other (patient refused to answer ROS questions) Constitutional: Reports as per HPI Eyes: Reports as per HPI Reports as per HPI Cardiovascular: Reports as per HPI Respiratory: Reports as per HPI Gastrointestinal: Reports as per HPI Musculoskeletal: Reports as per HPI Skin/Breast: Reports as per HPI Reports as per HPI and Reports confusion Psychiatric: Reports as per HPI and Reports confusion Endocrine: Reports as per HPI Hematologic/Lymphatic: Reports as per HPI Allergic/Immunologic: Reports as per HPI Mental Status Exam Mental Status Exam Narrative: Appearance: casual attire, adequate grooming and hygiene Behavior: calm, keeping to self, engagement limited by vision and hearing difficulties Orientation: alert, oriented to idea that she is in the hospital, year, month not date nor situation. Psychomotor Function: no agitation or slowing; no abnormal gestures or movements Speech: mostly clear, normal rate/rhythm/volume, spontaneous Mood: ok Affect: calm, non-labile Thought Process: more linear/organized. Thought Content: paranoid delusions of people coming to hurt others and attempting to hurt her Hallucinations: AH constantly talking to daughter who is not there. Delusions: paranoid delusions. Insight: impairment Judgment: impairment Impulsivity: none noted Diagnostics Vital Signs (24Hr): Vital Signs - 24 hr 04/30/25 19:59 05/01/25 09:33 Temperature 97.9 F 97.2 F Pulse Rate 75 64 Respiratory Rate 18 18 Blood Pressure 120/60 137/62 Pulse Oximetry 98 97 Oxygen Delivery Method Room Air Room Air BMI result Body Mass Index 31.9 Labs 03/29/25 08:55 03/29/25 08:55 Labs: Laboratory Results - last 48 hr 04/30/25 11:23 Absolute Neuts (auto) 7.1 Imaging Radiology Impressions: ITS Impressions Head CT 03/05/25 15:51 IMPRESSION: 1. No acute intracranial abnormality. 2. Right-sided cochlear nerve implant with associated streak artifact. 3. Right-sided canal wall up mastoidectomy. Electronically signed by: Levi Greer MD 03/05/2025 04:25 PM EDT RP Lumbar Puncture Fluoroscopy 03/09/25 11:50 IMPRESSION: Successful fluoroscopy-guided lumbar puncture performed without immediate complications Electronically signed by: Thompson Andujar MD 03/09/2025 04:06 PM EDT RP Chest CT 03/11/25 11:52 IMPRESSION: 1. Multiple bilateral pulmonary nodules measuring up to 10 mm in size. Further evaluation should be based on Fleischner Society guidelines below. 2. Cardiomegaly. Findings consistent with pulmonary arterial hypertension. 3. No evidence of mediastinal or hilar lymphadenopathy. Fleischner Criteria for pulmonary nodule follow-up SOLID NODULES: Low risk patient: <6mm: no follow-up 6-8mm: 6 month follow-up CT >8mm: PET/Biopsy/ 3 month follow-up CT High risk patient: <6mm: 12 month follow-up CT 6-8mm: 6 month follow-up CT >8mm: PET/Biopsy/ 3 month follow-up CT SUB-SOLID/GROUNDGLASS NODULES: All patients: > or = 6mm: 6 month follow-up CT *Please note that in patients in the following categories, the Fleischner criteria do not apply: Immunocompromised, lung cancer screening population, age below 35, and patients with known malignancy Electronically signed by: Best Clemons MD 03/11/2025 01:45 PM EDT RP Head CTA 03/11/25 11:52 IMPRESSION: Head CT: No acute intracranial abnormality. CT angiogram of the head: No vascular occlusions. Electronically signed by: Gypsy Salamanca MD 03/11/2025 03:02 PM EDT RP Chest CT 04/24/25 09:58 IMPRESSION: 1. Majority of the previously seen pulmonary nodules have resolved, and were consistent with infectious or inflammatory etiology. 2. There is a persistent 9 mm nodular focus in the lateral right upper lobe, which is felt to represent scarring given the appearance. To be cautious, a 3 month interval follow-up CT is recommended to ensure stability. 3. There is mild to moderate paraseptal emphysema. There is no acute pneumonic consolidation. 4. There is thickening of the small airways suggesting bronchitis. 5. There is moderate cardiac enlargement. Enlarged main pulmonary artery is consistent with pulmonary arterial hypertension. Electronically signed by: Levi Greer MD 04/24/2025 10:56 AM EDT Medications Medications Current Medications Acetaminophen (Acetaminophen 325 Mg Tablet) 650 mg PO Q6H PRN PRN Reason: Headache/Pain, Scale 1-10 Last Admin: 05/01/25 10:01 Dose: 650 mg Al Hydroxide/Mg Hydroxide (Magnesium Hydrox/Alum Hydrox 30 Ml Oral.Susp) 30 ml PO Q6H PRN PRN Reason: Heartburn/Nausea Albuterol Sulfate (Albuterol Sulfate 90 Mcg 8 Gm Inhaler) 2 puff INHALE Q4H PRN PRN Reason: Shortness Of Breath Or Wheezing Last Admin: 05/01/25 09:58 Dose: 2 puff Atorvastatin Calcium (Atorvastatin Calcium 40 Mg Tablet) 40 mg PO DAILY [facility] Last Admin: 05/01/25 09:36 Dose: 40 mg Clonazepam (Clonazepam Odt 0.5 Mg Tab.Rapdis) 0.5 mg PO BID PRN PRN Reason: severe anxiety/sleep Last Admin: 03/31/25 20:37 Dose: 0.5 mg Clozapine (Clozapine 100 Mg Tablet) 200 mg PO BEDTIME [facility] Last Admin: 04/30/25 20:13 Dose: 200 mg Fluphenazine HCl (Fluphenazine Hcl 2.5 Mg/Ml 10 Ml Vial) 2.5 mg IM BID PRN PRN Reason: give if refuses oral per HCP Last Admin: 03/05/25 09:42 Dose: 2.5 mg Fluphenazine HCl (Fluphenazine Hcl 2.5 Mg Tablet) 2.5 mg PO BID [facility] Last Admin: 05/01/25 09:36 Dose: 2.5 mg Fluticasone/Vilanterol (Fluticasone/Vilanterol 200/25 Blst.W.Dev) 1 puff INHALE RDAILY [facility] Last Admin: 05/01/25 09:37 Dose: 1 puff Glycopyrrolate (Glycopyrrolate 1 Mg Tablet) 0.5 mg PO BID [facility] Last Admin: 05/01/25 09:36 Dose: 0.5 mg Hydrochlorothiazide (Hydrochlorothiazide 25 Mg Tablet) 25 mg PO DAILY [facility] Last Admin: 05/01/25 09:37 Dose: 25 mg Levetiracetam (Levetiracetam Oral Soln 500 Mg/5 Ml) 250 mg PO BID [facility] Last Admin: 05/01/25 10:00 Dose: 250 mg Magnesium Hydroxide (Milk Of Magnesia 30 Ml Oral.Susp) 30 ml PO DAILY PRN PRN Reason: Constipation Methimazole (Methimazole 5 Mg Tablet) 5 mg PO DAILY [facility] Last Admin: 05/01/25 09:36 Dose: 5 mg Naloxone HCl (Naloxone Hcl 0.4 Mg/Ml Vial) 0.04 mg IVPUSH Q5M PRN PRN Reason: Excessive sedation or RR < 8 Nifedipine (Nifedipine Er 30 Mg Tab.Er.24) 30 mg PO DAILY [facility]; Protocol Last Admin: 05/01/25 09:36 Dose: 30 mg Olanzapine (Olanzapine 10 Mg Tablet) 10 mg PO Q6H PRN PRN Reason: severe agitation Last Admin: 04/16/25 16:28 Dose: 10 mg Prednisone (Prednisone 20 Mg Tablet) 40 mg PO DAILY [facility] Last Admin: 05/01/25 09:37 Dose: 40 mg Tiotropium [place] (Tiotropium [place] 2.5 Mcg 1 Puff/2.5 Mcg Mist.Inhal) 1 puff INHALE RDAILY [facility] Last Admin: 05/01/25 09:34 Dose: 1 puff Trazodone HCl (Trazodone Hcl 50 Mg Tablet) 50 mg PO BEDTIME MRX1 PRN PRN Reason: Insomnia Last Admin: 04/04/25 23:21 Dose: 50 mg Allergies Allergies Allergy/AdvReac Type Severity Reaction Status Date / Time latex Allergy Unknown Verified 03/09/25 11:50 peanut Allergy Unknown Verified 03/09/25 11:50 Penicillins Allergy Unknown Verified 03/09/25 11:50 Assessment & Plan Assessment & Plan (1) Psychosis: Status: Acute Code(s): F29 - Unspecified psychosis not due to a substance or known physiological condition Assessment and Plan: r/o autoimmune reasons for psychosis including lupus. 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 Sharif is a 69 year-old woman who presents with a 3 month hx of new onset of psychosis (AH) and combination of paranoid delusions and cap gras delusions. No prior psychiatric hx. She does have of cocaine use but apparently had not used in some years. Daughter suspects she may have relapsed but no ongoing use. Pt presents with more complex theme of delusions. No additional medical work up available including head CT. CBC and cmp unremarkable. 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 It may be related to dementia process but complexity of delusions and psychosis not the common presentation for dementia that have psychosis early on such as in vascular dementia or LBD. Pt presents as gravely disable to able to care for self due to symptoms of psychosis and delusions. 02/03 increase night time risperidone 2mg po qhs increase cogetin at bedtime to 1mg po qhs. lower daily dose to 0.5mg po daily. continue cogentin 0.5mg po daily. clonazepam as prn olanzapine as prn for agitation 02/04 continue tx. 02/05 continue tx. 02/06 continue current dose of risperidone. NOTE THAT pt can't take doses higher than 3 mg/day of risperidone as higher doses had severe EPS. can use olanzapine as well per court order. 02/07/25: Patient has been agitated yelling loudly exist seeking, delusional thinking her daughter/son outside at the door to pick her up. PRNs given in the morning with mild effect. Patient became agitated, aggressive\, assaultive to 1 of the staff on the floor, yelling and hitting her face so grabbing her neck. Physical was started at 16:31 to 1634. Patient was given IM medication of Zyprexa 10 and Valium 10 with good effect. Tomorrow plan: Patient will be benefit from Valium 10 mg twice a day and Zyprexa 5 mg 3 times a day is added into her scheduled medication as current plan with risperidone is not effective. Patient also having a backup for risperidone if she refused. 02/08/25: Slept most of the morning and last night. In better behavior control. No aggressive behavior. She is quiet, self dialogue, and medication compliant. Due to receive restrain medication yesterday. I did not make any medication change. But the Valium and additional Zyprexa appears to be helpful. 02/09 will try to change keppra to depakote for seizures as keppra may exacerbate psychosis. increase risperidone 1mg po daily and 2mg po qhs. may need to add second antipsychotic. 02/10 continues to present as paranoid with AH. at times declines oral medications, requiring IM back per court order. 02/11 continue tx. 02/12 continue tx. 02/13 continue tx. 02/14: no changes today. Monitor for agitation around confusion about hospitalization 02/15: no changes today, self dialogue more overt/extensive today 02/16 add olanzapine 5mg po qhs. continue risperidone. minimal improvement if any. 02/17 continue tx. 02/18 seems more somnolent with bedtime olanzapine, will continue to monitor. 02/19 cbc showed thrombocytopenia, which is new and suspect related to depakote 02/20 pt appears more sedated since addition of olanzapine at bedtime. She continues to self dialogue. minimal improvement. 02/21: Continue current management and treatment plan. 02/22: continue current management and treatment plan. 02/23 continue tx. may need to affirm HCP try different antipsychotic. 02/24 continue tx. results of LENORE 1:360, pattern homogenous A. 02/25 will try rexulti, lower risperidone. pending coordination of medical care to see if underlying autoimmune condition has anything to do with current presentation. 02/26 discussed with hospital commonwealth attorney to dismiss sect 8, HCP invoked and can consent to other treatment. daughter Maricruz give permission to try different antipsychotic. 02/27 decrease risperidone to 1mg po daily, start prolixin 2.5mg po qhs, then increase to BID. continue olanzapine prn for agitation. olanzapine as well per court order. 03/03 pt seen by neurology, added HIV/RPR/LYME, can't have MRI due to cochlear implant. 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 Last Neurology appointment 01/2024. Missed appointment with rheumatology 05/2024, last seen in 02/26/2024. - Pt can't have MRI due to cochlear implant. Had head CT. - continue prolixin 2.5mg po daily, 5mg po qhs. will d/c risperidone, increase prolixin 5mg po BID, back up IM. 03/05 continue tx. 03/06 This investigative writer spoke with pt's councilperson, Dr. Al obtained collateral information. Will coordinate with neurology and rheumatology once LP results are available. r/o reoccurance of pachymeningitis, lupus or other autoimmune cause for psychosis. 03/07: Continue current regimen and plans. Discontinued one-to-one and put in place 5 minute checks 03/08: Continue current plans and regimen 03/09 continue tx. 03/10: continue current mgmt. continues disorganized and psychotic. see neuro note from today. continue with neuro w/u. 03/11: given zyprexa 5 and valium [address] and head CTA. head CTA WNL, chest CT showed numerous pulmonary nodules up to 10 mm in size. no change in presentation. due to persistent requests for discharge, 3-day notice submitted on her behalf. will work toward HCP affirmation by the court. 03/12: per pulm consult, chest CT more c/w rheumatological process than CA, recommended empiric steroid course. awaiting input from neuro. consider Bx of nodules otherwise. continue current mgmt for now. 03/13: variably calm and agitated. planning for bronchoscopy with pulmonary nodule Bx on sunday. continue current mgmt. case discussed with HCP Maricruz (daughter), who is in agreement with plan. 03/14: CSF with notable findings. will f/u with neuro on sunday. stable presentation for now, remains quite psychotic. continue current mgmt. bronchoscopy sunday. 03/15: no change from yesterday in presentation or plan. 03/16: stable presentation. continues confused, wanting to go home. HCP affirmation tomorrow. continue current mgmt. 03/17: stable presdentation. bronchoscopy pending. continue current mgmt. 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 awaiting bronchoscopy. remains psychotic. continue current mgmt for now. 03/20: no change in presentation. still awaiting go-ahead for brochoscopy. continue current mgmt. 03/22: No changes. Noted above. 03/23: awaiting insurance approval for bronchoscopy. stable presentation. 03/24: as for yesterday. 03/25: loudly RIS in milieu today. bronchoscopy scheduled for sunday at 1130. NPO past MN night. stable presentation. continue current mgmt. 03/26 pt presents as more disorganized and inattentive than usual showing more signs of delirious behavior. bronchoscopy was canceled,due to shortage of needles to complete biopsy. will order cbc, cmp, ammonia levels given increase disorganized behavior and worsening attention pointing at a more delirious presentation. Review of results from LP showing negative results for meningitis panel/paraneoplastic panel (including most common antibody found in [facility] which is EARL 1 which was negative), elevated protein in CSF 131 without leukocytosis, also elevated CSF/serum IgG index. elevated anti-ds dna titer 1:80. Such results may point more to a rheumatological condition than infectious condition or malignancy. Mrs. Sharif's OP councilperson, Dr. Al recommends trial of prednisone 40mg po daily at least for 2 weeks. 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 03/31 increase prolixin to 5mg po BID. continue all other medications including prednisone 40mg po daily. 04/01 discussed with her OP councilperson, Dr. Al possibility of transferring to [facility] for further tx of autoimmune condition, suspected also having lupus. continue prednisone. Spoke with daughter who is HCP, daughter concern about pt going to [facility] due to being dismissed several times when pt was first brought psychotic. 04/02 continue tx 04/03 increase prolixin to 5mg po TID. monitor EPS. 04/06 continue tx. 04/07- pending response from [facility] to see if they will take her for further evaluation of autoimmune condition with multidisciplinary team to continue see if psychosis related to autoimmune or primarily psychosis. Some improvement in attention, less guarded. continues to have auditory hallucinations. May consider switch to clozapine given that she has tried 3 antipsychotics with limited efficacy. 04/08 start clozapine 25mg po qhs. continue prolixin 7.5mg po TID. 04/09 increase clozapine to 50mg po qhs. continue prolixin 7.5mg po TID. 04/10 decrease prolixin to 7.5mg po BID. increase clozapine to 75mg po qhs. continue increasing clozapine by 25mg/day. 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 04/11: no change today, will titrate Clozapine further tomorrow 04/12: titrate Clozapine to 100 mg QHS 04/13 increase clozapine to 125mg po qhs. continue prolixin 7.5mg po BID. 04/14 Provided update to daughter Maricruz who is HCP in terms of pt being treated for both autoimmune condition that may be contributing to psychosis (with prednione) as well as primarily psychiatric disorder (although less likely) with clozapine. some improvement in attention, slightly less paranoid but continues to present with ongoing AH of her daughter. 04/15 continue tx. 04/16 continue tx. 04/17 start glycopyrralate for drooling, decrease cogentin. 04/17 increase clozapine 150mg po qhs, lower prolixin 2.5mg po BID. back up. 04/18: Continue current management and treatment plan. 04/19: continue current management and treatment plan. 04/20 increase clozapine to 175mg po qhs. 04/21 continue tx. 04/22 continue tx. 04/23 continue tx. will check clozapine levels. 04/[address] followed up done today- much less nodules seen. 04/27 no change in presentation, less paranoid towards staff but ongoing AH. Impaired awareness of surroundings and conversations mostly base on delusional content. Will consult as well with her OP Ordnance Engineer as to whether continue prednisone as initially recommended by rheumatology for suspected lupus, although it has had additional benefits in lung nodules. 04/28 increase clozapine 200mg po qhs. 04/[address] showed improvement in her pulmonary nodules and absence of pulmonary symptoms otherwise. recommendation to taper off prednisone slowly with repeat of chest CT in 3 months for stability of reminder of nodules. her OP councilperson did want to continue prednisone for suspected lupus, may discuss further with rheumatology if they want to continue prednisone or stop it. 04/30 continue tx. 05/01 continue tx. will check clozapine level on 05/04/25 Reason for continued inpatient stay Substantial Risk for: inability to function Time Spent With Patient Time: Total time managing care of this patient today ____ minutes.
[2025-05-01 20:00] VITALS: BP 104/60; PULSE 72; RESP 18; TEMP 36.6; O2SAT 93
[2025-05-02 08:00] VITALS: BP 134/62; PULSE 67; RESP 17; TEMP 36.4; O2SAT 97
[2025-05-02] MEDS: levETIRAcetam Oral Soln 500 MG/5 ML 250 MG PO ×2 (08:46→20:20)
[2025-05-02 08:47] VITALS: BP 134/62
[2025-05-02] MEDS: NIFEdipine ER 30 MG TAB.ER.24 PO (08:47)
[2025-05-02] MEDS: Tiotropium Bromide 2.5 mcg 1 PUFF/2.5 MCG MIST.INHAL INHALE (08:49)
[2025-05-02] MEDS: Fluticasone/Vilanterol 200/25 BLST.W.DEV 1 PUFF INHALE (08:49)
[2025-05-02] MEDS: Albuterol Sulfate 90 MCG 8 GM INHALER 2 PUFF INHALE (10:33)
--- NOTE | 2025-05-02 14:00 | P.PNPSI_ITS ---
Subjective Subjective Date of Service: 05/02/25 Reason For Visit: Abnormal CT chest Subjective Notes: Section 7 Interim History: Medical record and nursing notes reviewed; case discussed during rounds with team/nursing staff, and met with patient for supportive therapy/psychoeducation, as well as medication management. Meet with patient in room as patient resting in room after lunch. Report she is resting because I am ok but just a little tired . Report last BM was yesterday. Report back pain with some pain d/t arthritis on hands/fingers and that I will to [facility] to have it taken care of . Report that she is going home in the morning I feel safer and better at home , people here are creepy . Pleasant, clam, and cooperative. She is aware of her limitation on vision and hearing, communicated with patient via written paper. Per nursing, patient slept for 8 hours, talking to daughter on fake phone at times and responded as her daughter was on the phone. Medication Compliance: Yes Side effects from medications: No Review of Systems Acute medical concerns: No Medical Review of Systems: unchanged Review of Systems Review of Systems Constitutional: Denies fatigue and Denies fever(s) Cardiovascular: Denies chest pain and Denies dyspnea Respiratory: Denies dyspnea Gastrointestinal: Denies abdominal pain Psychiatric: denies suicidal ideation Endocrine: Denies fatigue Yes all other systems are reviewed and are negative Mental Status Exam Mental Status Exam Narrative: Appearance: casual attire, adequate grooming and hygiene Behavior: calm, keeping to self, engagement limited by vision and hearing difficulties Orientation: alert, oriented to idea that she is in the hospital, year, month not date nor situation. Psychomotor Function: no agitation or slowing; no abnormal gestures or movements Speech: mostly clear, normal rate/rhythm/volume, spontaneous Mood: Little tired but I am ok Affect: calm, non-labile Thought Process: more linear/organized. Thought Content: feel people here are creepy Hallucinations: AH constantly talking to daughter who is not there baseline but not at the time of assessment Delusions: paranoid delusions. Insight: impairment Judgment: impairment Impulsivity: none noted Diagnostics Vital Signs (24Hr): Vital Signs - 24 hr 05/01/25 20:00 05/02/25 08:00 05/02/25 08:47 Temperature 98 F 97.5 F Pulse Rate 72 67 Respiratory Rate 18 17 Blood Pressure 104/60 134/62 134/62 Pulse Oximetry 93 97 Oxygen Delivery Method Room Air Room Air 05/02/25 08:47 Temperature Pulse Rate Respiratory Rate Blood Pressure 134/62 Pulse Oximetry Oxygen Delivery Method BMI result Body Mass Index 31.9 Labs 03/29/25 08:55 03/29/25 08:55 Imaging Radiology Impressions: ITS Impressions Head CT 03/05/25 15:51 IMPRESSION: 1. No acute intracranial abnormality. 2. Right-sided cochlear nerve implant with associated streak artifact. 3. Right-sided canal wall up mastoidectomy. Electronically signed by: Levi Greer MD 03/05/2025 04:25 PM EDT RP Lumbar Puncture Fluoroscopy 03/09/25 11:50 IMPRESSION: Successful fluoroscopy-guided lumbar puncture performed without immediate complications Electronically signed by: Thompson Andujar MD 03/09/2025 04:06 PM EDT RP Chest CT 03/11/25 11:52 IMPRESSION: 1. Multiple bilateral pulmonary nodules measuring up to 10 mm in size. Further evaluation should be based on Fleischner Society guidelines below. 2. Cardiomegaly. Findings consistent with pulmonary arterial hypertension. 3. No evidence of mediastinal or hilar lymphadenopathy. Fleischner Criteria for pulmonary nodule follow-up SOLID NODULES: Low risk patient: <6mm: no follow-up 6-8mm: 6 month follow-up CT >8mm: PET/Biopsy/ 3 month follow-up CT High risk patient: <6mm: 12 month follow-up CT 6-8mm: 6 month follow-up CT >8mm: PET/Biopsy/ 3 month follow-up CT SUB-SOLID/GROUNDGLASS NODULES: All patients: > or = 6mm: 6 month follow-up CT *Please note that in patients in the following categories, the Fleischner criteria do not apply: Immunocompromised, lung cancer screening population, age below 35, and patients with known malignancy Electronically signed by: Best Clemons MD 03/11/2025 01:45 PM EDT RP Head CTA 03/11/25 11:52 IMPRESSION: Head CT: No acute intracranial abnormality. CT angiogram of the head: No vascular occlusions. Electronically signed by: Gypsy Salamanca MD 03/11/2025 03:02 PM EDT RP Chest CT 04/24/25 09:58 IMPRESSION: 1. Majority of the previously seen pulmonary nodules have resolved, and were consistent with infectious or inflammatory etiology. 2. There is a persistent 9 mm nodular focus in the lateral right upper lobe, which is felt to represent scarring given the appearance. To be cautious, a 3 month interval follow-up CT is recommended to ensure stability. 3. There is mild to moderate paraseptal emphysema. There is no acute pneumonic consolidation. 4. There is thickening of the small airways suggesting bronchitis. 5. There is moderate cardiac enlargement. Enlarged main pulmonary artery is consistent with pulmonary arterial hypertension. Electronically signed by: Levi Greer MD 04/24/2025 10:56 AM EDT RP Medications Medications Current Medications Acetaminophen (Acetaminophen 325 Mg Tablet) 650 mg PO Q6H PRN PRN Reason: Headache/Pain, Scale 1-10 Last Admin: 05/01/25 10:01 Dose: 650 mg Al Hydroxide/Mg Hydroxide (Magnesium Hydrox/Alum Hydrox 30 Ml Oral.Susp) 30 ml PO Q6H PRN PRN Reason: Heartburn/Nausea Albuterol Sulfate (Albuterol Sulfate 90 Mcg 8 Gm Inhaler) 2 puff INHALE Q4H PRN PRN Reason: Shortness Of Breath Or Wheezing Last Admin: 05/02/25 10:33 Dose: 2 puff Atorvastatin Calcium (Atorvastatin Calcium 40 Mg Tablet) 40 mg PO DAILY [facility] Last Admin: 05/02/25 08:47 Dose: 40 mg Clonazepam (Clonazepam Odt 0.5 Mg Tab.Rapdis) 0.5 mg PO BID PRN PRN Reason: severe anxiety/sleep Last Admin: 03/31/25 20:37 Dose: 0.5 mg Clozapine (Clozapine 100 Mg Tablet) 200 mg PO BEDTIME ALLY Last Admin: 05/01/25 20:05 Dose: 200 mg Fluphenazine HCl (Fluphenazine Hcl 2.5 Mg/Ml 10 Ml Vial) 2.5 mg IM BID PRN PRN Reason: give if refuses oral per HCP Last Admin: 03/05/25 09:42 Dose: 2.5 mg Fluphenazine HCl (Fluphenazine Hcl 2.5 Mg Tablet) 2.5 mg PO BID [facility] Last Admin: 05/02/25 08:47 Dose: 2.5 mg Fluticasone/Vilanterol (Fluticasone/Vilanterol 200/25 Blst.W.Dev) 1 puff INHALE RDAILY [facility] Last Admin: 05/02/25 08:49 Dose: 1 puff Glycopyrrolate (Glycopyrrolate 1 Mg Tablet) 0.5 mg PO BID [facility] Last Admin: 05/02/25 08:46 Dose: 0.5 mg Hydrochlorothiazide (Hydrochlorothiazide 25 Mg Tablet) 25 mg PO DAILY [facility] Last Admin: 05/02/25 08:47 Dose: 25 mg Levetiracetam (Levetiracetam Oral Soln 500 Mg/5 Ml) 250 mg PO BID [facility] Last Admin: 05/02/25 08:46 Dose: 250 mg Magnesium Hydroxide (Milk Of Magnesia 30 Ml Oral.Susp) 30 ml PO DAILY PRN PRN Reason: Constipation Methimazole (Methimazole 5 Mg Tablet) 5 mg PO DAILY [facility] Last Admin: 05/02/25 08:46 Dose: 5 mg Naloxone HCl (Naloxone Hcl 0.4 Mg/Ml Vial) 0.04 mg IVPUSH Q5M PRN PRN Reason: Excessive sedation or RR < 8 Nifedipine (Nifedipine Er 30 Mg Tab.Er.24) 30 mg PO DAILY [facility]; Protocol Last Admin: 05/02/25 08:47 Dose: 30 mg Olanzapine (Olanzapine 10 Mg Tablet) 10 mg PO Q6H PRN PRN Reason: severe agitation Last Admin: 04/16/25 16:28 Dose: 10 mg Prednisone (Prednisone 20 Mg Tablet) 40 mg PO DAILY [facility] Last Admin: 05/02/25 08:47 Dose: 40 mg Tiotropium [place] (Tiotropium [place] 2.5 Mcg 1 Puff/2.5 Mcg Mist.Inhal) 1 puff INHALE RDAILY [facility] Last Admin: 05/02/25 08:49 Dose: 1 puff Trazodone HCl (Trazodone Hcl 50 Mg Tablet) 50 mg PO BEDTIME MRX1 PRN PRN Reason: Insomnia Last Admin: 04/04/25 23:21 Dose: 50 mg Allergies Allergies Allergy/AdvReac Type Severity Reaction Status Date / Time latex Allergy Unknown Verified 03/09/25 11:50 peanut Allergy Unknown Verified 03/09/25 11:50 Penicillins Allergy Unknown Verified 03/09/25 11:50 Assessment & Plan Assessment & Plan (1) Psychosis: Status: Acute Code(s): F29 - Unspecified psychosis not due to a substance or known physiological condition Assessment and Plan: r/o autoimmune reasons for psychosis including lupus. 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 Sharif is a 69 year-old woman who presents with a 3 month hx of new onset of psychosis (AH) and combination of paranoid delusions and cap gras delusions. No prior psychiatric hx. She does have of cocaine use but apparently had not used in some years. Daughter suspects she may have relapsed but no ongoing use. Pt presents with more complex theme of delusions. No additional medical work up available including head CT. CBC and cmp unremarkable. 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 It may be related to dementia process but complexity of delusions and psychosis not the common presentation for dementia that have psychosis early on such as in vascular dementia or LBD. Pt presents as gravely disable to able to care for self due to symptoms of psychosis and delusions. 02/03 increase night time risperidone 2mg po qhs increase cogetin at bedtime to 1mg po qhs. lower daily dose to 0.5mg po daily. continue cogentin 0.5mg po daily. clonazepam as prn olanzapine as prn for agitation 02/04 continue tx. 02/05 continue tx. 02/06 continue current dose of risperidone. NOTE THAT pt can't take doses higher than 3 mg/day of risperidone as higher doses had severe EPS. can use olanzapine as well per court order. 02/07/25: Patient has been agitated yelling loudly exist seeking, delusional thinking her daughter/son outside at the door to pick her up. PRNs given in the morning with mild effect. Patient became agitated, aggressive\, assaultive to 1 of the staff on the floor, yelling and hitting her face so grabbing her neck. Physical was started at 16:31 to 1634. Patient was given IM medication of Zyprexa 10 and Valium 10 with good effect. Tomorrow plan: Patient will be benefit from Valium 10 mg twice a day and Zyprexa 5 mg 3 times a day is added into her scheduled medication as current plan with risperidone is not effective. Patient also having a backup for risperidone if she refused. 02/08/25: Slept most of the morning and last night. In better behavior control. No aggressive behavior. She is quiet, self dialogue, and medication compliant. Due to receive restrain medication yesterday. I did not make any medication change. But the Valium and additional Zyprexa appears to be helpful. 02/09 will try to change keppra to depakote for seizures as keppra may exacerbate psychosis. increase risperidone 1mg po daily and 2mg po qhs. may need to add second antipsychotic. 02/10 continues to present as paranoid with AH. at times declines oral medications, requiring IM back per court order. 02/11 continue tx. 02/12 continue tx. 02/13 continue tx. 02/14: no changes today. Monitor for agitation around confusion about hospitalization 02/15: no changes today, self dialogue more overt/extensive today 02/16 add olanzapine 5mg po qhs. continue risperidone. minimal improvement if any. 02/17 continue tx. 02/18 seems more somnolent with bedtime olanzapine, will continue to monitor. 02/19 cbc showed thrombocytopenia, which is new and suspect related to depakote 02/20 pt appears more sedated since addition of olanzapine at bedtime. She continues to self dialogue. minimal improvement. 02/21: Continue current management and treatment plan. 02/22: continue current management and treatment plan. 02/23 continue tx. may need to affirm HCP try different antipsychotic. 02/24 continue tx. results of LENORE 1:360, pattern homogenous A. 02/25 will try rexulti, lower risperidone. pending coordination of medical care to see if underlying autoimmune condition has anything to do with current presentation. 02/26 discussed with hospital poultry farmer to dismiss sect 8, HCP invoked and can consent to other treatment. daughter Maricruz give permission to try different antipsychotic. 02/27 decrease risperidone to 1mg po daily, start prolixin 2.5mg po qhs, then increase to BID. continue olanzapine prn for agitation. olanzapine as well per court order. 03/03 pt seen by neurology, added HIV/RPR/LYME, can't have MRI due to cochlear implant. 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 Last Neurology appointment 01/2024. Missed appointment with rheumatology 05/2024, last seen in 02/26/2024. - Pt can't have MRI due to cochlear implant. Had head CT. - continue prolixin 2.5mg po daily, 5mg po qhs. will d/c risperidone, increase prolixin 5mg po BID, back up IM. 03/05 continue tx. 03/06 This magnetic tape typewriter operator spoke with pt's statistical engineer, Dr. Al obtained collateral information. Will coordinate with neurology and rheumatology once LP results are available. r/o reoccurance of pachymeningitis, lupus or other autoimmune cause for psychosis. 03/07: Continue current regimen and plans. Discontinued one-to-one and put in place 5 minute checks 03/08: Continue current plans and regimen 03/09 continue tx. 03/10: continue current mgmt. continues disorganized and psychotic. see neuro note from today. continue with neuro w/u. 03/11: given zyprexa 5 and valium [address] and head CTA. head CTA WNL, chest CT showed numerous pulmonary nodules up to 10 mm in size. no change in presentation. due to persistent requests for discharge, 3-day notice submitted on her behalf. will work toward HCP affirmation by the court. 03/12: per pulm consult, chest CT more c/w rheumatological process than CA, recommended empiric steroid course. awaiting input from neuro. consider Bx of nodules otherwise. continue current mgmt for now. 03/13: variably calm and agitated. planning for bronchoscopy with pulmonary nodule Bx on sunday. continue current mgmt. case discussed with HCP Maricruz (daughter), who is in agreement with plan. 03/14: CSF with notable findings. will f/u with neuro on sunday. stable presentation for now, remains quite psychotic. continue current mgmt. bronchoscopy sunday. 03/15: no change from yesterday in presentation or plan. 03/16: stable presentation. continues confused, wanting to go home. HCP affirmation tomorrow. continue current mgmt. 03/17: stable presdentation. bronchoscopy pending. continue current mgmt. 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 awaiting bronchoscopy. remains psychotic. continue current mgmt for now. 03/20: no change in presentation. still awaiting go-ahead for brochoscopy. continue current mgmt. 03/22: No changes. Noted above. 03/23: awaiting insurance approval for bronchoscopy. stable presentation. 03/24: as for yesterday. 03/25: loudly RIS in milieu today. bronchoscopy scheduled for sunday at 1130. NPO past MN night. stable presentation. continue current mgmt. 03/26 pt presents as more disorganized and inattentive than usual showing more signs of delirious behavior. bronchoscopy was canceled,due to shortage of needles to complete biopsy. will order cbc, cmp, ammonia levels given increase disorganized behavior and worsening attention pointing at a more delirious presentation. * Review of results from LP showing negative results for meningitis panel/paraneoplastic panel (including most common antibody found in SLC which is EARL 1 which was negative), elevated protein in CSF 131 without leukocytosis, also elevated CSF/serum IgG index. elevated anti-ds dna titer 1:80. Such results may point more to a rheumatological condition than infectious condition or malignancy. Mrs. Sharif's OP statistical engineer, Dr. Al recommends trial of prednisone 40mg po daily at least for 2 weeks. 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 03/31 increase prolixin to 5mg po BID. continue all other medications including prednisone 40mg po daily. 04/01 discussed with her OP statistical engineer, Dr. Al possibility of transferring to [facility] for further tx of autoimmune condition, suspected also having lupus. continue prednisone. Spoke with daughter who is HCP, daughter concern about pt going to [facility] due to being dismissed several times when pt was first brought psychotic. 04/02 continue tx 04/03 increase prolixin to 5mg po TID. monitor EPS. 04/06 continue tx. 04/07- pending response from [facility] to see if they will take her for further evaluation of autoimmune condition with multidisciplinary team to continue see if psychosis related to autoimmune or primarily psychosis. Some improvement in attention, less guarded. continues to have auditory hallucinations. May consider switch to clozapine given that she has tried 3 antipsychotics with limited efficacy. 04/08 start clozapine 25mg po qhs. continue prolixin 7.5mg po TID. 04/09 increase clozapine to 50mg po qhs. continue prolixin 7.5mg po TID. 04/10 decrease prolixin to 7.5mg po BID. increase clozapine to 75mg po qhs. continue increasing clozapine by 25mg/day. shipping/receiving clerk, recommends repeat CT in 2 weeks, and hold on bronchoscopy. 04/11: no change today, will titrate Clozapine further tomorrow 04/12: titrate Clozapine to 100 mg QHS 04/13 increase clozapine to 125mg po qhs. continue prolixin 7.5mg po BID. 04/14 Provided update to daughter Maricruz who is HCP in terms of pt being treated for both autoimmune condition that may be contributing to psychosis (with prednione) as well as primarily psychiatric disorder (although less likely) with clozapine. some improvement in attention, slightly less paranoid but continues to present with ongoing AH of her daughter. 04/15 continue tx. 04/16 continue tx. 04/17 start glycopyrralate for drooling, decrease cogentin. 04/17 increase clozapine 150mg po qhs, lower prolixin 2.5mg po BID. back up. 04/18: Continue current management and treatment plan. 04/19: continue current management and treatment plan. 04/20 increase clozapine to 175mg po qhs. 04/21 continue tx. 04/22 continue tx. 04/23 continue tx. will check clozapine levels. 04/[address] followed up done today- much less nodules seen. 04/27 no change in presentation, less paranoid towards staff but ongoing AH. Impaired awareness of surroundings and conversations mostly base on delusional content. Will consult as well with her OP Dike Supervisor as to whether continue prednisone as initially recommended by rheumatology for suspected lupus, although it has had additional benefits in lung nodules. 04/28 increase clozapine 200mg po qhs. 04/[address] showed improvement in her pulmonary nodules and absence of pulmonary symptoms otherwise. recommendation to taper off prednisone slowly with repeat of chest CT in 3 months for stability of reminder of nodules. her OP statistical engineer did want to continue prednisone for suspected lupus, may discuss further with rheumatology if they want to continue prednisone or stop it. 04/30 continue tx. 05/02/25: Meet with patient in room as patient resting in room after lunch. Report she is resting because I am ok but just a little tired . Report last BM was yesterday. Report back pain with some pain d/t arthritis on hands/fingers and that I will to [facility] to have it taken care of . Report that she is going home in the morning I feel safer and better at home , people here are creepy . Pleasant, clam, and cooperative. She is aware of her limitation on vision and hearing, communicated with patient via written paper. Per nursing, patient slept for 8 hours, talking to daughter on fake phone at times and responded as her daughter was on the phone. Patient educated on: therapeutic strategies Informed Consent: further education needed Reason for continued inpatient stay Substantial Risk for: med/psych decompensation Time Spent With Patient Time: Total time managing care of this patient today ____ minutes.
[2025-05-02 20:00] VITALS: BP 112/58; PULSE 80; RESP 16; TEMP 36.6; O2SAT 95
[2025-05-03 08:00] VITALS: BP 135/89; PULSE 65; RESP 17; TEMP 36.5; O2SAT 95
[2025-05-03] MEDS: Tiotropium Bromide 2.5 mcg 1 PUFF/2.5 MCG MIST.INHAL INHALE (08:55)
[2025-05-03] MEDS: Fluticasone/Vilanterol 200/25 BLST.W.DEV 1 PUFF INHALE (08:55)
[2025-05-03 08:56] VITALS: BP 135/89
[2025-05-03] MEDS: levETIRAcetam Oral Soln 500 MG/5 ML 250 MG PO ×2 (08:56→19:46)
[2025-05-03 08:57] VITALS: BP 135/89
[2025-05-03] MEDS: NIFEdipine ER 30 MG TAB.ER.24 PO (08:57)
--- NOTE | 2025-05-03 19:17 | HO.PSYCHPN ---
Subjective Subjective Date of Service: 05/03/25 Reason For Visit: Abnormal CT chest Subjective Notes: [place] Order Interim History: Medical record and nursing notes reviewed; case discussed during rounds with team/nursing staff, and met with patient for supportive therapy/psychoeducation, as well as medication management. Reports that she slept okay but was up a couple of times, able to fall back to sleep. Reports she has sleep apnea. Good appetite, visible in common area, calm and polite. When asked if she has any questions by the end of conversation, she said if she could have a black coffee. Medication Compliance: Yes Side effects from medications: No Attending Groups: No Review of Systems Acute medical concerns: No Medical Review of Systems: unchanged Review of Systems Review of Systems Constitutional: Denies fatigue and Denies fever(s) Cardiovascular: Denies chest pain and Denies dyspnea Respiratory: Denies dyspnea Gastrointestinal: Denies abdominal pain Psychiatric: denies suicidal ideation Endocrine: Denies fatigue Yes all other systems are reviewed and are negative Mental Status Exam Mental Status Exam Narrative: Appearance: casual attire, adequate grooming and hygiene Behavior: calm, keeping to self, engagement limited by vision and hearing difficulties Orientation: alert, oriented to idea that she is in the hospital, year, month not date nor situation. Psychomotor Function: no agitation or slowing; no abnormal gestures or movements Speech: mostly clear, normal rate/rhythm/volume, spontaneous Mood: Little tired but I am ok Affect: calm, non-labile Thought Process: more linear/organized. Thought Content: feel people here are creepy Hallucinations: AH constantly talking to daughter who is not there baseline but not at the time of assessment Delusions: paranoid delusions. Insight: impairment Judgment: impairment Impulsivity: none noted Diagnostics Vital Signs (24Hr): Vital Signs - 24 hr 05/02/25 20:00 05/03/25 08:00 05/03/25 08:56 Temperature 98 F 97.7 F Pulse Rate 80 65 Respiratory Rate 16 17 Blood Pressure 112/58 L 135/89 135/89 Pulse Oximetry 95 95 Oxygen Delivery Method Room Air Room Air 05/03/25 08:57 Temperature Pulse Rate Respiratory Rate Blood Pressure 135/89 Pulse Oximetry Oxygen Delivery Method BMI result Body Mass Index 31.9 Labs 03/29/25 08:55 03/29/25 08:55 Imaging Radiology Impressions: ITS Impressions Head CT 03/05/25 15:51 IMPRESSION: 1. No acute intracranial abnormality. 2. Right-sided cochlear nerve implant with associated streak artifact. 3. Right-sided canal wall up mastoidectomy. Electronically signed by: Levi Greer MD 03/05/2025 04:25 PM EDT RP Lumbar Puncture Fluoroscopy 03/09/25 11:50 IMPRESSION: Successful fluoroscopy-guided lumbar puncture performed without immediate complications Electronically signed by: Thompson Andujar MD 03/09/2025 04:06 PM EDT RP Chest CT 03/11/25 11:52 IMPRESSION: 1. Multiple bilateral pulmonary nodules measuring up to 10 mm in size. Further evaluation should be based on Fleischner Society guidelines below. 2. Cardiomegaly. Findings consistent with pulmonary arterial hypertension. 3. No evidence of mediastinal or hilar lymphadenopathy. Fleischner Criteria for pulmonary nodule follow-up SOLID NODULES: Low risk patient: <6mm: no follow-up 6-8mm: 6 month follow-up CT >8mm: PET/Biopsy/ 3 month follow-up CT High risk patient: <6mm: 12 month follow-up CT 6-8mm: 6 month follow-up CT >8mm: PET/Biopsy/ 3 month follow-up CT SUB-SOLID/GROUNDGLASS NODULES: All patients: > or = 6mm: 6 month follow-up CT *Please note that in patients in the following categories, the Fleischner criteria do not apply: Immunocompromised, lung cancer screening population, age below 35, and patients with known malignancy Electronically signed by: Best Clemons MD 03/11/2025 01:45 PM EDT RP Head CTA 03/11/25 11:52 IMPRESSION: Head CT: No acute intracranial abnormality. CT angiogram of the head: No vascular occlusions. Electronically signed by: Gypsy Salamanca MD 03/11/2025 03:02 PM EDT RP Chest CT 04/24/25 09:58 IMPRESSION: 1. Majority of the previously seen pulmonary nodules have resolved, and were consistent with infectious or inflammatory etiology. 2. There is a persistent 9 mm nodular focus in the lateral right upper lobe, which is felt to represent scarring given the appearance. To be cautious, a 3 month interval follow-up CT is recommended to ensure stability. 3. There is mild to moderate paraseptal emphysema. There is no acute pneumonic consolidation. 4. There is thickening of the small airways suggesting bronchitis. 5. There is moderate cardiac enlargement. Enlarged main pulmonary artery is consistent with pulmonary arterial hypertension. Electronically signed by: Levi Greer MD 04/24/2025 10:56 AM EDT Medications Medications Current Medications Acetaminophen (Acetaminophen 325 Mg Tablet) 650 mg PO Q6H PRN PRN Reason: Headache/Pain, Scale 1-10 Last Admin: 05/03/25 13:57 Dose: 650 mg Al Hydroxide/Mg Hydroxide (Magnesium Hydrox/Alum Hydrox 30 Ml Oral.Susp) 30 ml PO Q6H PRN PRN Reason: Heartburn/Nausea Albuterol Sulfate (Albuterol Sulfate 90 Mcg 8 Gm Inhaler) 2 puff INHALE Q4H PRN PRN Reason: Shortness Of Breath Or Wheezing Last Admin: 05/02/25 10:33 Dose: 2 puff Atorvastatin Calcium (Atorvastatin Calcium 40 Mg Tablet) 40 mg PO DAILY [facility] Last Admin: 05/03/25 08:58 Dose: 40 mg Clonazepam (Clonazepam Odt 0.5 Mg Tab.Rapdis) 0.5 mg PO BID PRN PRN Reason: severe anxiety/sleep Last Admin: 03/31/25 20:37 Dose: 0.5 mg Clozapine (Clozapine 100 Mg Tablet) 200 mg PO BEDTIME [facility] Last Admin: 05/02/25 20:19 Dose: 200 mg Fluphenazine HCl (Fluphenazine Hcl 2.5 Mg/Ml 10 Ml Vial) 2.5 mg IM BID PRN PRN Reason: give if refuses oral per HCP Last Admin: 03/05/25 09:42 Dose: 2.5 mg Fluphenazine HCl (Fluphenazine Hcl 2.5 Mg Tablet) 2.5 mg PO BID [facility] Last Admin: 05/03/25 08:58 Dose: 2.5 mg Fluticasone/Vilanterol (Fluticasone/Vilanterol 200/25 Blst.W.Dev) 1 puff INHALE RDAILY [facility] Last Admin: 05/03/25 08:55 Dose: 1 puff Glycopyrrolate (Glycopyrrolate 1 Mg Tablet) 0.5 mg PO BID [facility] Last Admin: 05/03/25 08:57 Dose: 0.5 mg Hydrochlorothiazide (Hydrochlorothiazide 25 Mg Tablet) 25 mg PO DAILY [facility] Last Admin: 05/03/25 08:56 Dose: 25 mg Levetiracetam (Levetiracetam Oral Soln 500 Mg/5 Ml) 250 mg PO BID [facility] Last Admin: 05/03/25 08:56 Dose: 250 mg Magnesium Hydroxide (Milk Of Magnesia 30 Ml Oral.Susp) 30 ml PO DAILY PRN PRN Reason: Constipation Methimazole (Methimazole 5 Mg Tablet) 5 mg PO DAILY [facility] Last Admin: 05/03/25 08:58 Dose: 5 mg Naloxone HCl (Naloxone Hcl 0.4 Mg/Ml Vial) 0.04 mg IVPUSH Q5M PRN PRN Reason: Excessive sedation or RR < 8 Nifedipine (Nifedipine Er 30 Mg Tab.Er.24) 30 mg PO DAILY [facility]; Protocol Last Admin: 05/03/25 08:57 Dose: 30 mg Olanzapine (Olanzapine 10 Mg Tablet) 10 mg PO Q6H PRN PRN Reason: severe agitation Last Admin: 04/16/25 16:28 Dose: 10 mg Prednisone (Prednisone 20 Mg Tablet) 40 mg PO DAILY [facility] Last Admin: 05/03/25 08:56 Dose: 40 mg Tiotropium [place] (Tiotropium [place] 2.5 Mcg 1 Puff/2.5 Mcg Mist.Inhal) 1 puff INHALE RDAILY [facility] Last Admin: 05/03/25 08:55 Dose: 1 puff Trazodone HCl (Trazodone Hcl 50 Mg Tablet) 50 mg PO BEDTIME MRX1 PRN PRN Reason: Insomnia Last Admin: 04/04/25 23:21 Dose: 50 mg Allergies Allergies Allergy/AdvReac Type Severity Reaction Status Date / Time latex Allergy Unknown Verified 03/09/25 11:50 peanut Allergy Unknown Verified 03/09/25 11:50 Penicillins Allergy Unknown Verified 03/09/25 11:50 Assessment & Plan Assessment & Plan (1) Psychosis: Status: Acute Code(s): F29 - Unspecified psychosis not due to a substance or known physiological condition Assessment and Plan: r/o autoimmune reasons for psychosis including lupus. 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 Sharif is a 69 year-old woman who presents with a 3 month hx of new onset of psychosis (AH) and combination of paranoid delusions and cap gras delusions. No prior psychiatric hx. She does have of cocaine use but apparently had not used in some years. Daughter suspects she may have relapsed but no ongoing use. Pt presents with more complex theme of delusions. No additional medical work up available including head CT. CBC and cmp unremarkable. 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 It may be related to dementia process but complexity of delusions and psychosis not the common presentation for dementia that have psychosis early on such as in vascular dementia or LBD. Pt presents as gravely disable to able to care for self due to symptoms of psychosis and delusions. 02/03 increase night time risperidone 2mg po qhs increase cogetin at bedtime to 1mg po qhs. lower daily dose to 0.5mg po daily. continue cogentin 0.5mg po daily. clonazepam as prn olanzapine as prn for agitation 02/04 continue tx. 02/05 continue tx. 02/06 continue current dose of risperidone. NOTE THAT pt can't take doses higher than 3 mg/day of risperidone as higher doses had severe EPS. can use olanzapine as well per court order. 02/07/25: Patient has been agitated yelling loudly exist seeking, delusional thinking her daughter/son outside at the door to pick her up. PRNs given in the morning with mild effect. Patient became agitated, aggressive\, assaultive to 1 of the staff on the floor, yelling and hitting her face so grabbing her neck. Physical was started at 16:31 to 1634. Patient was given IM medication of Zyprexa 10 and Valium 10 with good effect. Tomorrow plan: Patient will be benefit from Valium 10 mg twice a day and Zyprexa 5 mg 3 times a day is added into her scheduled medication as current plan with risperidone is not effective. Patient also having a backup for risperidone if she refused. 02/08/25: Slept most of the morning and last night. In better behavior control. No aggressive behavior. She is quiet, self dialogue, and medication compliant. Due to receive restrain medication yesterday. I did not make any medication change. But the Valium and additional Zyprexa appears to be helpful. 02/09 will try to change keppra to depakote for seizures as keppra may exacerbate psychosis. increase risperidone 1mg po daily and 2mg po qhs. may need to add second antipsychotic. 02/10 continues to present as paranoid with AH. at times declines oral medications, requiring IM back per court order. 02/11 continue tx. 02/12 continue tx. 02/13 continue tx. 02/14: no changes today. Monitor for agitation around confusion about hospitalization 02/15: no changes today, self dialogue more overt/extensive today 02/16 add olanzapine 5mg po qhs. continue risperidone. minimal improvement if any. 02/17 continue tx. 02/18 seems more somnolent with bedtime olanzapine, will continue to monitor. 02/19 cbc showed thrombocytopenia, which is new and suspect related to depakote 02/20 pt appears more sedated since addition of olanzapine at bedtime. She continues to self dialogue. minimal improvement. 02/21: Continue current management and treatment plan. 02/22: continue current management and treatment plan. 02/23 continue tx. may need to affirm HCP try different antipsychotic. 02/24 continue tx. results of LENORE 1:360, pattern homogenous A. 02/25 will try rexulti, lower risperidone. pending coordination of medical care to see if underlying autoimmune condition has anything to do with current presentation. 02/26 discussed with hospital bankruptcy attorney to dismiss sect 8, HCP invoked and can consent to other treatment. daughter Maricruz give permission to try different antipsychotic. 02/27 decrease risperidone to 1mg po daily, start prolixin 2.5mg po qhs, then increase to BID. continue olanzapine prn for agitation. olanzapine as well per court order. 03/03 pt seen by neurology, added HIV/RPR/LYME, can't have MRI due to cochlear implant. 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 Last Neurology appointment 01/2024. Missed appointment with rheumatology 05/2024, last seen in 02/26/2024. - Pt can't have MRI due to cochlear implant. Had head CT. - continue prolixin 2.5mg po daily, 5mg po qhs. will d/c risperidone, increase prolixin 5mg po BID, back up IM. 03/05 continue tx. 03/06 This report writer spoke with pt's adult probation officer, Dr. Al obtained collateral information. Will coordinate with neurology and rheumatology once LP results are available. r/o reoccurance of pachymeningitis, lupus or other autoimmune cause for psychosis. 03/07: Continue current regimen and plans. Discontinued one-to-one and put in place 5 minute checks 03/08: Continue current plans and regimen 03/09 continue tx. 03/10: continue current mgmt. continues disorganized and psychotic. see neuro note from today. continue with neuro w/u. 03/11: given zyprexa 5 and valium [address] and head CTA. head CTA WNL, chest CT showed numerous pulmonary nodules up to 10 mm in size. no change in presentation. due to persistent requests for discharge, 3-day notice submitted on her behalf. will work toward HCP affirmation by the court. 03/12: per pulm consult, chest CT more c/w rheumatological process than CA, recommended empiric steroid course. awaiting input from neuro. consider Bx of nodules otherwise. continue current mgmt for now. 03/13: variably calm and agitated. planning for bronchoscopy with pulmonary nodule Bx on sunday. continue current mgmt. case discussed with HCP Maricruz (daughter), who is in agreement with plan. 03/14: CSF with notable findings. will f/u with neuro on sunday. stable presentation for now, remains quite psychotic. continue current mgmt. bronchoscopy sunday. 03/15: no change from yesterday in presentation or plan. 03/16: stable presentation. continues confused, wanting to go home. HCP affirmation tomorrow. continue current mgmt. 03/17: stable presdentation. bronchoscopy pending. continue current mgmt. 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 awaiting bronchoscopy. remains psychotic. continue current mgmt for now. 03/20: no change in presentation. still awaiting go-ahead for brochoscopy. continue current mgmt. 03/22: No changes. Noted above. 03/23: awaiting insurance approval for bronchoscopy. stable presentation. 03/24: as for yesterday. 03/25: loudly RIS in milieu today. bronchoscopy scheduled for sunday at 1130. NPO past MN night. stable presentation. continue current mgmt. 03/26 pt presents as more disorganized and inattentive than usual showing more signs of delirious behavior. bronchoscopy was canceled,due to shortage of needles to complete biopsy. will order cbc, cmp, ammonia levels given increase disorganized behavior and worsening attention pointing at a more delirious presentation. Review of results from LP showing negative results for meningitis panel/paraneoplastic panel (including most common antibody found in SLC which is EARL 1 which was negative), elevated protein in CSF 131 without leukocytosis, also elevated CSF/serum IgG index. elevated anti-ds dna titer 1:80. Such results may point more to a rheumatological condition than infectious condition or malignancy. Mrs. Sharif's OP adult probation officer, Dr. Al recommends trial of prednisone 40mg po daily at least for 2 weeks. 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 03/31 increase prolixin to 5mg po BID. continue all other medications including prednisone 40mg po daily. 04/01 discussed with her OP adult probation officer, Dr. Al possibility of transferring to [facility] for further tx of autoimmune condition, suspected also having lupus. continue prednisone. Spoke with daughter who is HCP, daughter concern about pt going to [facility] due to being dismissed several times when pt was first brought psychotic. 04/02 continue tx 04/03 increase prolixin to 5mg po TID. monitor EPS. 04/06 continue tx. 04/07- pending response from [facility] to see if they will take her for further evaluation of autoimmune condition with multidisciplinary team to continue see if psychosis related to autoimmune or primarily psychosis. Some improvement in attention, less guarded. continues to have auditory hallucinations. May consider switch to clozapine given that she has tried 3 antipsychotics with limited efficacy. 04/08 start clozapine 25mg po qhs. continue prolixin 7.5mg po TID. 04/09 increase clozapine to 50mg po qhs. continue prolixin 7.5mg po TID. 04/10 decrease prolixin to 7.5mg po BID. increase clozapine to 75mg po qhs. continue increasing clozapine by 25mg/day. material processor, recommends repeat CT in 2 weeks, and hold on bronchoscopy. 04/11: no change today, will titrate Clozapine further tomorrow 04/12: titrate Clozapine to 100 mg QHS 04/13 increase clozapine to 125mg po qhs. continue prolixin 7.5mg po BID. 04/14 Provided update to daughter Maricruz who is HCP in terms of pt being treated for both autoimmune condition that may be contributing to psychosis (with prednione) as well as primarily psychiatric disorder (although less likely) with clozapine. some improvement in attention, slightly less paranoid but continues to present with ongoing AH of her daughter. 04/15 continue tx. 04/16 continue tx. 04/17 start glycopyrralate for drooling, decrease cogentin. 04/17 increase clozapine 150mg po qhs, lower prolixin 2.5mg po BID. back up. 04/18: Continue current management and treatment plan. 04/19: continue current management and treatment plan. 04/20 increase clozapine to 175mg po qhs. 04/21 continue tx. 04/22 continue tx. 04/23 continue tx. will check clozapine levels. 04/[address] followed up done today- much less nodules seen. 04/27 no change in presentation, less paranoid towards staff but ongoing AH. Impaired awareness of surroundings and conversations mostly base on delusional content. Will consult as well with her OP Asset Liability Analyst as to whether continue prednisone as initially recommended by rheumatology for suspected lupus, although it has had additional benefits in lung nodules. 04/28 increase clozapine 200mg po qhs. 04/[address] showed improvement in her pulmonary nodules and absence of pulmonary symptoms otherwise. recommendation to taper off prednisone slowly with repeat of chest CT in 3 months for stability of reminder of nodules. her OP adult probation officer did want to continue prednisone for suspected lupus, may discuss further with rheumatology if they want to continue prednisone or stop it. 04/30 continue tx. 05/02/25: Meet with patient in room as patient resting in room after lunch. Report she is resting because I am ok but just a little tired . Report last BM was yesterday. Report back pain with some pain d/t arthritis on hands/fingers and that I will to [facility] to have it taken care of . Report that she is going home in the morning I feel safer and better at home , people here are creepy . Pleasant, clam, and cooperative. She is aware of her limitation on vision and hearing, communicated with patient via written paper. Per nursing, patient slept for 8 hours, talking to daughter on fake phone at times and responded as her daughter was on the phone. 05/03/25: Reports that she slept okay but was up a couple of times, able to fall back to sleep. Reports she has sleep apnea. Good appetite, visible in common area, calm and polite. When asked if she has any questions by the end of conversation, she said if she could have a black coffee. Patient educated on: diagnosis, medication risk/benefits and therapeutic strategies Informed Consent: further education needed Reason for continued inpatient stay Substantial Risk for: med/psych decompensation Time Spent With Patient Time: Total time managing care of this patient today ____ minutes.
[2025-05-03 19:48] VITALS: BP 111/53; PULSE 74; RESP 16; TEMP 36.4; O2SAT 94
[2025-05-04 08:00] VITALS: BP 129/60; PULSE 66; RESP 18; TEMP 36.4; O2SAT 95
[2025-05-04] MEDS: levETIRAcetam Oral Soln 500 MG/5 ML 250 MG PO ×2 (08:44→21:03)
[2025-05-04] MEDS: Tiotropium Bromide 2.5 mcg 1 PUFF/2.5 MCG MIST.INHAL INHALE (08:44)
[2025-05-04] MEDS: Fluticasone/Vilanterol 200/25 BLST.W.DEV 1 PUFF INHALE (08:44)
[2025-05-04] MEDS: NIFEdipine ER 30 MG TAB.ER.24 PO (08:47)
[2025-05-04] MEDS: Albuterol Sulfate 90 MCG 8 GM INHALER 2 PUFF INHALE (08:58)
--- NOTE | 2025-05-04 14:15 | P.PNPSI_ITS ---
Subjective Subjective Date of Service: 05/04/25 Reason For Visit: Abnormal CT chest Subjective Notes: Section 8 Interim History: Pt sleeping through the night. continues to self dialogues, hears the voice of her daughter, otherwise no aggression, pleasant on approach and less guarded. but no significant improvement in ability to function Medication Compliance: Yes Review of Systems Review of Systems Constitutional: Denies fatigue and Denies fever(s) Cardiovascular: Denies chest pain and Denies dyspnea Respiratory: Denies dyspnea Gastrointestinal: Denies abdominal pain Psychiatric: denies suicidal ideation Endocrine: Denies fatigue Yes all other systems are reviewed and are negative, Unobtainable due to mental condition, Unobtainable due to mental status and Other (patient refused to answer ROS questions) Constitutional: Reports as per HPI Eyes: Reports as per HPI Reports as per HPI Cardiovascular: Reports as per HPI Respiratory: Reports as per HPI Gastrointestinal: Reports as per HPI Musculoskeletal: Reports as per HPI Skin/Breast: Reports as per HPI Reports as per HPI and Reports confusion Psychiatric: Reports as per HPI and Reports confusion Endocrine: Reports as per HPI Hematologic/Lymphatic: Reports as per HPI Allergic/Immunologic: Reports as per HPI Mental Status Exam Mental Status Exam Narrative: Appearance: casual attire, adequate grooming and hygiene Behavior: calm, keeping to self, engagement limited by vision and hearing difficulties Orientation: alert, oriented to idea that she is in the hospital, year, month not date nor situation. Psychomotor Function: no agitation or slowing; no abnormal gestures or movements Speech: mostly clear, normal rate/rhythm/volume, spontaneous Mood: Little tired but I am ok Affect: calm, non-labile Thought Process: more linear/organized. Thought Content: feel people here are creepy Hallucinations: AH constantly talking to daughter who is not there baseline but not at the time of assessment Delusions: paranoid delusions. Insight: impairment Judgment: impairment Impulsivity: none noted Diagnostics Vital Signs (24Hr): Vital Signs - 24 hr 05/03/25 19:48 05/04/25 08:00 Temperature 97.5 F 97.5 F Pulse Rate 74 66 Respiratory Rate 16 18 Blood Pressure 111/53 L 129/60 Pulse Oximetry 94 95 Oxygen Delivery Method Room Air Room Air BMI result Body Mass Index 31.9 Labs 03/29/25 08:55 03/29/25 08:55 Imaging Radiology Impressions: ITS Impressions Head CT 03/05/25 15:51 IMPRESSION: 1. No acute intracranial abnormality. 2. Right-sided cochlear nerve implant with associated streak artifact. 3. Right-sided canal wall up mastoidectomy. Electronically signed by: Levi Greer MD 03/05/2025 04:25 PM EDT RP Lumbar Puncture Fluoroscopy 03/09/25 11:50 IMPRESSION: Successful fluoroscopy-guided lumbar puncture performed without immediate complications Electronically signed by: Thompson Andujar MD 03/09/2025 04:06 PM EDT RP Chest CT 03/11/25 11:52 IMPRESSION: 1. Multiple bilateral pulmonary nodules measuring up to 10 mm in size. Further evaluation should be based on Fleischner Society guidelines below. 2. Cardiomegaly. Findings consistent with pulmonary arterial hypertension. 3. No evidence of mediastinal or hilar lymphadenopathy. Fleischner Criteria for pulmonary nodule follow-up SOLID NODULES: Low risk patient: <6mm: no follow-up 6-8mm: 6 month follow-up CT >8mm: PET/Biopsy/ 3 month follow-up CT High risk patient: <6mm: 12 month follow-up CT 6-8mm: 6 month follow-up CT >8mm: PET/Biopsy/ 3 month follow-up CT SUB-SOLID/GROUNDGLASS NODULES: All patients: > or = 6mm: 6 month follow-up CT *Please note that in patients in the following categories, the Fleischner criteria do not apply: Immunocompromised, lung cancer screening population, age below 35, and patients with known malignancy Electronically signed by: Best Clemons MD 03/11/2025 01:45 PM EDT RP Head CTA 03/11/25 11:52 IMPRESSION: Head CT: No acute intracranial abnormality. CT angiogram of the head: No vascular occlusions. Electronically signed by: Gypsy Salamanca MD 03/11/2025 03:02 PM EDT RP Chest CT 04/24/25 09:58 IMPRESSION: 1. Majority of the previously seen pulmonary nodules have resolved, and were consistent with infectious or inflammatory etiology. 2. There is a persistent 9 mm nodular focus in the lateral right upper lobe, which is felt to represent scarring given the appearance. To be cautious, a 3 month interval follow-up CT is recommended to ensure stability. 3. There is mild to moderate paraseptal emphysema. There is no acute pneumonic consolidation. 4. There is thickening of the small airways suggesting bronchitis. 5. There is moderate cardiac enlargement. Enlarged main pulmonary artery is consistent with pulmonary arterial hypertension. Electronically signed by: Levi Greer MD 04/24/2025 10:56 AM EDT Medications Medications Current Medications Acetaminophen (Acetaminophen 325 Mg Tablet) 650 mg PO Q6H PRN PRN Reason: Headache/Pain, Scale 1-10 Last Admin: 05/04/25 08:45 Dose: 650 mg Al Hydroxide/Mg Hydroxide (Magnesium Hydrox/Alum Hydrox 30 Ml Oral.Susp) 30 ml PO Q6H PRN PRN Reason: Heartburn/Nausea Albuterol Sulfate (Albuterol Sulfate 90 Mcg 8 Gm Inhaler) 2 puff INHALE Q4H PRN PRN Reason: Shortness Of Breath Or Wheezing Last Admin: 05/04/25 08:58 Dose: 2 puff Atorvastatin Calcium (Atorvastatin Calcium 40 Mg Tablet) 40 mg PO DAILY [facility] Last Admin: 05/04/25 08:46 Dose: 40 mg Clonazepam (Clonazepam Odt 0.5 Mg Tab.Rapdis) 0.5 mg PO BID PRN PRN Reason: severe anxiety/sleep Last Admin: 03/31/25 20:37 Dose: 0.5 mg Clozapine (Clozapine 100 Mg Tablet) 200 mg PO BEDTIME [facility] Last Admin: 05/03/25 19:45 Dose: 200 mg Fluphenazine HCl (Fluphenazine Hcl 2.5 Mg/Ml 10 Ml Vial) 2.5 mg IM BID PRN PRN Reason: give if refuses oral per HCP Last Admin: 03/05/25 09:42 Dose: 2.5 mg Fluphenazine HCl (Fluphenazine Hcl 2.5 Mg Tablet) 2.5 mg PO BID [facility] Last Admin: 05/04/25 08:46 Dose: 2.5 mg Fluticasone/Vilanterol (Fluticasone/Vilanterol 200/25 Blst.W.Dev) 1 puff INHALE RDAILY [facility] Last Admin: 05/04/25 08:44 Dose: 1 puff Glycopyrrolate (Glycopyrrolate 1 Mg Tablet) 0.5 mg PO BID [facility] Last Admin: 05/04/25 08:45 Dose: 0.5 mg Hydrochlorothiazide (Hydrochlorothiazide 25 Mg Tablet) 25 mg PO DAILY [facility] Last Admin: 05/04/25 08:47 Dose: 25 mg Levetiracetam (Levetiracetam Oral Soln 500 Mg/5 Ml) 250 mg PO BID [facility] Last Admin: 05/04/25 08:44 Dose: 250 mg Magnesium Hydroxide (Milk Of Magnesia 30 Ml Oral.Susp) 30 ml PO DAILY PRN PRN Reason: Constipation Methimazole (Methimazole 5 Mg Tablet) 5 mg PO DAILY [facility] Last Admin: 05/04/25 08:47 Dose: 5 mg Naloxone HCl (Naloxone Hcl 0.4 Mg/Ml Vial) 0.04 mg IVPUSH Q5M PRN PRN Reason: Excessive sedation or RR < 8 Nifedipine (Nifedipine Er 30 Mg Tab.Er.24) 30 mg PO DAILY [facility]; Protocol Last Admin: 05/04/25 08:47 Dose: 30 mg Olanzapine (Olanzapine 10 Mg Tablet) 10 mg PO Q6H PRN PRN Reason: severe agitation Last Admin: 04/16/25 16:28 Dose: 10 mg Prednisone (Prednisone 20 Mg Tablet) 40 mg PO DAILY [facility] Last Admin: 05/04/25 08:46 Dose: 40 mg Tiotropium Marina (Tiotropium Marina 2.5 Mcg 1 Puff/2.5 Mcg Mist.Inhal) 1 puff INHALE RDAILY [facility] Last Admin: 05/04/25 08:44 Dose: 1 puff Trazodone HCl (Trazodone Hcl 50 Mg Tablet) 50 mg PO BEDTIME MRX1 PRN PRN Reason: Insomnia Last Admin: 04/04/25 23:21 Dose: 50 mg Allergies Allergies Allergy/AdvReac Type Severity Reaction Status Date / Time latex Allergy Unknown Verified 03/09/25 11:50 peanut Allergy Unknown Verified 03/09/25 11:50 Penicillins Allergy Unknown Verified 03/09/25 11:50 Assessment & Plan Assessment & Plan (1) Psychosis: Status: Acute Code(s): F29 - Unspecified psychosis not due to a substance or known physiological condition Assessment and Plan: r/o autoimmune reasons for psychosis including lupus. 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 Sharif is a 69 year-old woman who presents with a 3 month hx of new onset of psychosis (AH) and combination of paranoid delusions and cap gras delusions. No prior psychiatric hx. She does have of cocaine use but apparently had not used in some years. Daughter suspects she may have relapsed but no ongoing use. Pt presents with more complex theme of delusions. No additional medical work up available including head CT. CBC and cmp unremarkable. 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 It may be related to dementia process but complexity of delusions and psychosis not the common presentation for dementia that have psychosis early on such as in vascular dementia or LBD. Pt presents as gravely disable to able to care for self due to symptoms of psychosis and delusions. 02/03 increase night time risperidone 2mg po qhs increase cogetin at bedtime to 1mg po qhs. lower daily dose to 0.5mg po daily. continue cogentin 0.5mg po daily. clonazepam as prn olanzapine as prn for agitation 02/04 continue tx. 02/05 continue tx. 02/06 continue current dose of risperidone. NOTE THAT pt can't take doses higher than 3 mg/day of risperidone as higher doses had severe EPS. can use olanzapine as well per court order. 02/07/25: Patient has been agitated yelling loudly exist seeking, delusional thinking her daughter/son outside at the door to pick her up. PRNs given in the morning with mild effect. Patient became agitated, aggressive\, assaultive to 1 of the staff on the floor, yelling and hitting her face so grabbing her neck. Physical was started at 16:31 to 1634. Patient was given IM medication of Zyprexa 10 and Valium 10 with good effect. Tomorrow plan: Patient will be benefit from Valium 10 mg twice a day and Zyprexa 5 mg 3 times a day is added into her scheduled medication as current plan with risperidone is not effective. Patient also having a backup for risperidone if she refused. 02/08/25: Slept most of the morning and last night. In better behavior control. No aggressive behavior. She is quiet, self dialogue, and medication compliant. Due to receive restrain medication yesterday. I did not make any medication change. But the Valium and additional Zyprexa appears to be helpful. 02/09 will try to change keppra to depakote for seizures as keppra may exacerbate psychosis. increase risperidone 1mg po daily and 2mg po qhs. may need to add second antipsychotic. 02/10 continues to present as paranoid with AH. at times declines oral medications, requiring IM back per court order. 02/11 continue tx. 02/12 continue tx. 02/13 continue tx. 02/14: no changes today. Monitor for agitation around confusion about hospitalization 02/15: no changes today, self dialogue more overt/extensive today 02/16 add olanzapine 5mg po qhs. continue risperidone. minimal improvement if any. 02/17 continue tx. 02/18 seems more somnolent with bedtime olanzapine, will continue to monitor. 02/19 cbc showed thrombocytopenia, which is new and suspect related to depakote 02/20 pt appears more sedated since addition of olanzapine at bedtime. She continues to self dialogue. minimal improvement. 02/21: Continue current management and treatment plan. 02/22: continue current management and treatment plan. 02/23 continue tx. may need to affirm HCP try different antipsychotic. 02/24 continue tx. results of LENORE 1:360, pattern homogenous A. 02/25 will try rexulti, lower risperidone. pending coordination of medical care to see if underlying autoimmune condition has anything to do with current presentation. 02/26 discussed with hospital trial attorney to dismiss sect 8, HCP invoked and can consent to other treatment. daughter Maricruz give permission to try different antipsychotic. 02/27 decrease risperidone to 1mg po daily, start prolixin 2.5mg po qhs, then increase to BID. continue olanzapine prn for agitation. olanzapine as well per court order. 03/03 pt seen by neurology, added HIV/RPR/LYME, can't have MRI due to cochlear implant. 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 Last Neurology appointment 01/2024. Missed appointment with rheumatology 05/2024, last seen in 02/26/2024. - Pt can't have MRI due to cochlear implant. Had head CT. - continue prolixin 2.5mg po daily, 5mg po qhs. will d/c risperidone, increase prolixin 5mg po BID, back up IM. 03/05 continue tx. 03/06 This software writer spoke with pt's relay mechanic, Dr. Al obtained collateral information. Will coordinate with neurology and rheumatology once LP results are available. r/o reoccurance of pachymeningitis, lupus or other autoimmune cause for psychosis. 03/07: Continue current regimen and plans. Discontinued one-to-one and put in place 5 minute checks 03/08: Continue current plans and regimen 03/09 continue tx. 03/10: continue current mgmt. continues disorganized and psychotic. see neuro note from today. continue with neuro w/u. 03/11: given zyprexa 5 and valium [address] and head CTA. head CTA WNL, chest CT showed numerous pulmonary nodules up to 10 mm in size. no change in presentation. due to persistent requests for discharge, 3-day notice submitted on her behalf. will work toward HCP affirmation by the court. 03/12: per pulm consult, chest CT more c/w rheumatological process than CA, recommended empiric steroid course. awaiting input from neuro. consider Bx of nodules otherwise. continue current mgmt for now. 03/13: variably calm and agitated. planning for bronchoscopy with pulmonary nodule Bx on sunday. continue current mgmt. case discussed with HCP Maricruz (daughter), who is in agreement with plan. 03/14: CSF with notable findings. will f/u with neuro on sunday. stable presentation for now, remains quite psychotic. continue current mgmt. bronchoscopy sunday. 03/15: no change from yesterday in presentation or plan. 03/16: stable presentation. continues confused, wanting to go home. HCP affirmation tomorrow. continue current mgmt. 03/17: stable presdentation. bronchoscopy pending. continue current mgmt. 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 awaiting bronchoscopy. remains psychotic. continue current mgmt for now. 03/20: no change in presentation. still awaiting go-ahead for brochoscopy. continue current mgmt. 03/22: No changes. Noted above. 03/23: awaiting insurance approval for bronchoscopy. stable presentation. 03/24: as for yesterday. 03/25: loudly RIS in milieu today. bronchoscopy scheduled for sunday at 1130. NPO past MN night. stable presentation. continue current mgmt. 03/26 pt presents as more disorganized and inattentive than usual showing more signs of delirious behavior. bronchoscopy was canceled,due to shortage of needles to complete biopsy. will order cbc, cmp, ammonia levels given increase disorganized behavior and worsening attention pointing at a more delirious presentation. * Review of results from LP showing negative results for meningitis panel/paraneoplastic panel (including most common antibody found in SLC which is EARL 1 which was negative), elevated protein in CSF 131 without leukocytosis, also elevated CSF/serum IgG index. elevated anti-ds dna titer 1:80. Such results may point more to a rheumatological condition than infectious condition or malignancy. Mrs. Sharif's OP relay mechanic, Dr. Al recommends trial of prednisone 40mg po daily at least for 2 weeks. 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 03/31 increase prolixin to 5mg po BID. continue all other medications including prednisone 40mg po daily. 04/01 discussed with her OP relay mechanic, Dr. Al possibility of transferring to [facility] for further tx of autoimmune condition, suspected also having lupus. continue prednisone. Spoke with daughter who is HCP, daughter concern about pt going to [facility] due to being dismissed several times when pt was first brought psychotic. 04/02 continue tx 04/03 increase prolixin to 5mg po TID. monitor EPS. 04/06 continue tx. 04/07- pending response from [facility] to see if they will take her for further evaluation of autoimmune condition with multidisciplinary team to continue see if psychosis related to autoimmune or primarily psychosis. Some improvement in attention, less guarded. continues to have auditory hallucinations. May consider switch to clozapine given that she has tried 3 antipsychotics with limited efficacy. 04/08 start clozapine 25mg po qhs. continue prolixin 7.5mg po TID. 04/09 increase clozapine to 50mg po qhs. continue prolixin 7.5mg po TID. 04/10 decrease prolixin to 7.5mg po BID. increase clozapine to 75mg po qhs. continue increasing clozapine by 25mg/day. spooling operator, recommends repeat CT in 2 weeks, and hold on bronchoscopy. 04/11: no change today, will titrate Clozapine further tomorrow 04/12: titrate Clozapine to 100 mg QHS 04/13 increase clozapine to 125mg po qhs. continue prolixin 7.5mg po BID. 04/14 Provided update to daughter Maricruz who is HCP in terms of pt being treated for both autoimmune condition that may be contributing to psychosis (with prednione) as well as primarily psychiatric disorder (although less likely) with clozapine. some improvement in attention, slightly less paranoid but continues to present with ongoing AH of her daughter. 04/15 continue tx. 04/16 continue tx. 04/17 start glycopyrralate for drooling, decrease cogentin. 04/17 increase clozapine 150mg po qhs, lower prolixin 2.5mg po BID. back up. 04/18: Continue current management and treatment plan. 04/19: continue current management and treatment plan. 04/20 increase clozapine to 175mg po qhs. 04/21 continue tx. 04/22 continue tx. 04/23 continue tx. will check clozapine levels. 04/[address] followed up done today- much less nodules seen. 04/27 no change in presentation, less paranoid towards staff but ongoing AH. Impaired awareness of surroundings and conversations mostly base on delusional content. Will consult as well with her OP De[employer]rer [employer] as to whether continue prednisone as initially recommended by rheumatology for suspected lupus, although it has had additional benefits in lung nodules. 04/28 increase clozapine 200mg po qhs. 04/[address] showed improvement in her pulmonary nodules and absence of pulmonary symptoms otherwise. recommendation to taper off prednisone slowly with repeat of chest CT in 3 months for stability of reminder of nodules. her OP relay mechanic did want to continue prednisone for suspected lupus, may discuss further with rheumatology if they want to continue prednisone or stop it. 04/30 continue tx. 05/01 continue tx. will check clozapine level on 05/04/2505/04 continue tx, Reason for continued inpatient stay Substantial Risk for: inability to function Time Spent With Patient Time: Total time managing care of this patient today ____ minutes.
[2025-05-04 20:00] VITALS: BP 112/55; PULSE 76; RESP 16; TEMP 36.4; O2SAT 98
[2025-05-05 08:05] VITALS: BP 137/64; PULSE 65; RESP 16; TEMP 36.4; O2SAT 95
[2025-05-05] MEDS: Tiotropium Bromide 2.5 mcg 1 PUFF/2.5 MCG MIST.INHAL INHALE (08:41)
[2025-05-05] MEDS: Fluticasone/Vilanterol 200/25 BLST.W.DEV 1 PUFF INHALE (08:42)
[2025-05-05] MEDS: levETIRAcetam Oral Soln 500 MG/5 ML 250 MG PO ×2 (08:42→21:05)
[2025-05-05] MEDS: NIFEdipine ER 30 MG TAB.ER.24 PO (08:45)
[2025-05-05] MEDS: Albuterol Sulfate 90 MCG 8 GM INHALER 2 PUFF INHALE (13:25)
--- NOTE | 2025-05-05 19:53 | P.PNPSI_ITS ---
Subjective Subjective Date of Service: 05/05/25 Reason For Visit: Abnormal CT chest Subjective Notes: Section 8 Interim History: Sleeping through the night. taking medications. continues to self dialogued. friendly when approach but her ability to function is very poor and has not shown any significant improvement. Medication Compliance: Yes Review of Systems Review of Systems Constitutional: Denies fatigue and Denies fever(s) Cardiovascular: Denies chest pain and Denies dyspnea Respiratory: Denies dyspnea Gastrointestinal: Denies abdominal pain Psychiatric: denies suicidal ideation Endocrine: Denies fatigue Yes all other systems are reviewed and are negative, Unobtainable due to mental condition, Unobtainable due to mental status and Other (patient refused to answer ROS questions) Constitutional: Reports as per HPI Eyes: Reports as per HPI Reports as per HPI Cardiovascular: Reports as per HPI Respiratory: Reports as per HPI Gastrointestinal: Reports as per HPI Musculoskeletal: Reports as per HPI Skin/Breast: Reports as per HPI Reports as per HPI and Reports confusion Psychiatric: Reports as per HPI and Reports confusion Endocrine: Reports as per HPI Hematologic/Lymphatic: Reports as per HPI Allergic/Immunologic: Reports as per HPI Mental Status Exam Mental Status Exam Narrative: Appearance: casual attire, adequate grooming and hygiene Behavior: calm, keeping to self, engagement limited by vision and hearing difficulties Orientation: alert, oriented to idea that she is in the hospital, year, month not date nor situation. Psychomotor Function: no agitation or slowing; no abnormal gestures or movements Speech: mostly clear, normal rate/rhythm/volume, spontaneous Mood: Little tired but I am ok Affect: calm, non-labile Thought Process: more linear/organized. Thought Content: feel people here are creepy Hallucinations: AH constantly talking to daughter who is not there baseline but not at the time of assessment Delusions: paranoid delusions. Insight: impairment Judgment: impairment Impulsivity: none noted Diagnostics Vital Signs (24Hr): Vital Signs - 24 hr 05/04/25 20:00 05/05/25 08:05 Temperature 97.5 F 97.5 F Pulse Rate 76 65 Respiratory Rate 16 16 Blood Pressure 112/55 L 137/64 Pulse Oximetry 98 95 Oxygen Delivery Method Room Air Room Air BMI result Body Mass Index 31.9 Labs 03/29/25 08:55 03/29/25 08:55 Imaging Radiology Impressions: ITS Impressions Head CT 03/05/25 15:51 IMPRESSION: 1. No acute intracranial abnormality. 2. Right-sided cochlear nerve implant with associated streak artifact. 3. Right-sided canal wall up mastoidectomy. Electronically signed by: Levi Greer MD 03/05/2025 04:25 PM EDT RP Lumbar Puncture Fluoroscopy 03/09/25 11:50 IMPRESSION: Successful fluoroscopy-guided lumbar puncture performed without immediate complications Electronically signed by: Thompson Andujar MD 03/09/2025 04:06 PM EDT RP Chest CT 03/11/25 11:52 IMPRESSION: 1. Multiple bilateral pulmonary nodules measuring up to 10 mm in size. Further evaluation should be based on Fleischner Society guidelines below. 2. Cardiomegaly. Findings consistent with pulmonary arterial hypertension. 3. No evidence of mediastinal or hilar lymphadenopathy. Fleischner Criteria for pulmonary nodule follow-up SOLID NODULES: Low risk patient: <6mm: no follow-up 6-8mm: 6 month follow-up CT >8mm: PET/Biopsy/ 3 month follow-up CT High risk patient: <6mm: 12 month follow-up CT 6-8mm: 6 month follow-up CT >8mm: PET/Biopsy/ 3 month follow-up CT SUB-SOLID/GROUNDGLASS NODULES: All patients: > or = 6mm: 6 month follow-up CT *Please note that in patients in the following categories, the Fleischner criteria do not apply: Immunocompromised, lung cancer screening population, age below 35, and patients with known malignancy Electronically signed by: Best Clemons MD 03/11/2025 01:45 PM EDT RP Head CTA 03/11/25 11:52 IMPRESSION: Head CT: No acute intracranial abnormality. CT angiogram of the head: No vascular occlusions. Electronically signed by: Gypsy Salamanca MD 03/11/2025 03:02 PM EDT RP Chest CT 04/24/25 09:58 IMPRESSION: 1. Majority of the previously seen pulmonary nodules have resolved, and were consistent with infectious or inflammatory etiology. 2. There is a persistent 9 mm nodular focus in the lateral right upper lobe, which is felt to represent scarring given the appearance. To be cautious, a 3 month interval follow-up CT is recommended to ensure stability. 3. There is mild to moderate paraseptal emphysema. There is no acute pneumonic consolidation. 4. There is thickening of the small airways suggesting bronchitis. 5. There is moderate cardiac enlargement. Enlarged main pulmonary artery is consistent with pulmonary arterial hypertension. Electronically signed by: Levi Greer MD 04/24/2025 10:56 AM EDT Medications Medications Current Medications Acetaminophen (Acetaminophen 325 Mg Tablet) 650 mg PO Q6H PRN PRN Reason: Headache/Pain, Scale 1-10 Last Admin: 05/05/25 08:44 Dose: 650 mg Al Hydroxide/Mg Hydroxide (Magnesium Hydrox/Alum Hydrox 30 Ml Oral.Susp) 30 ml PO Q6H PRN PRN Reason: Heartburn/Nausea Albuterol Sulfate (Albuterol Sulfate 90 Mcg 8 Gm Inhaler) 2 puff INHALE Q4H PRN PRN Reason: Shortness Of Breath Or Wheezing Last Admin: 05/05/25 13:25 Dose: 2 puff Atorvastatin Calcium (Atorvastatin Calcium 40 Mg Tablet) 40 mg PO DAILY [facility] Last Admin: 05/05/25 08:44 Dose: 40 mg Clonazepam (Clonazepam Odt 0.5 Mg Tab.Rapdis) 0.5 mg PO BID PRN PRN Reason: severe anxiety/sleep Last Admin: 03/31/25 20:37 Dose: 0.5 mg Clozapine (Clozapine 100 Mg Tablet) 200 mg PO BEDTIME [facility] Last Admin: 05/04/25 21:04 Dose: 200 mg Fluphenazine HCl (Fluphenazine Hcl 2.5 Mg/Ml 10 Ml Vial) 2.5 mg IM BID PRN PRN Reason: give if refuses oral per HCP Last Admin: 03/05/25 09:42 Dose: 2.5 mg Fluphenazine HCl (Fluphenazine Hcl 2.5 Mg Tablet) 2.5 mg PO BID [facility] Last Admin: 05/05/25 08:44 Dose: 2.5 mg Fluticasone/Vilanterol (Fluticasone/Vilanterol 200/25 Blst.W.Dev) 1 puff INHALE RDAILY [facility] Last Admin: 05/05/25 08:42 Dose: 1 puff Glycopyrrolate (Glycopyrrolate 1 Mg Tablet) 0.5 mg PO BID [facility] Last Admin: 05/05/25 08:42 Dose: 0.5 mg Hydrochlorothiazide (Hydrochlorothiazide 25 Mg Tablet) 25 mg PO DAILY [facility] Last Admin: 05/05/25 08:45 Dose: 25 mg Levetiracetam (Levetiracetam Oral Soln 500 Mg/5 Ml) 250 mg PO BID [facility] Last Admin: 05/05/25 08:42 Dose: 250 mg Magnesium Hydroxide (Milk Of Magnesia 30 Ml Oral.Susp) 30 ml PO DAILY PRN PRN Reason: Constipation Methimazole (Methimazole 5 Mg Tablet) 5 mg PO DAILY [facility] Last Admin: 05/05/25 08:45 Dose: 5 mg Naloxone HCl (Naloxone Hcl 0.4 Mg/Ml Vial) 0.04 mg IVPUSH Q5M PRN PRN Reason: Excessive sedation or RR < 8 Nifedipine (Nifedipine Er 30 Mg Tab.Er.24) 30 mg PO DAILY [facility]; Protocol Last Admin: 05/05/25 08:45 Dose: 30 mg Olanzapine (Olanzapine 10 Mg Tablet) 10 mg PO Q6H PRN PRN Reason: severe agitation Last Admin: 04/16/25 16:28 Dose: 10 mg Prednisone (Prednisone 20 Mg Tablet) 40 mg PO DAILY [facility] Last Admin: 05/05/25 08:43 Dose: 40 mg Tiotropium Chappell (Tiotropium Chappell 2.5 Mcg 1 Puff/2.5 Mcg Mist.Inhal) 1 puff INHALE RDAILY [facility] Last Admin: 05/05/25 08:41 Dose: 1 puff Trazodone HCl (Trazodone Hcl 50 Mg Tablet) 50 mg PO BEDTIME MRX1 PRN PRN Reason: Insomnia Last Admin: 04/04/25 23:21 Dose: 50 mg Allergies Allergies Allergy/AdvReac Type Severity Reaction Status Date / Time latex Allergy Unknown Verified 03/09/25 11:50 peanut Allergy Unknown Verified 03/09/25 11:50 Penicillins Allergy Unknown Verified 03/09/25 11:50 Assessment & Plan Assessment & Plan (1) Psychosis: Status: Acute Code(s): F29 - Unspecified psychosis not due to a substance or known physiological condition Assessment and Plan: r/o autoimmune reasons for psychosis including lupus. 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 Sharif is a 69 year-old woman who presents with a 3 month hx of new onset of psychosis (AH) and combination of paranoid delusions and cap gras delusions. No prior psychiatric hx. She does have of cocaine use but apparently had not used in some years. Daughter suspects she may have relapsed but no ongoing use. Pt presents with more complex theme of delusions. No additional medical work up available including head CT. CBC and cmp unremarkable. 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 It may be related to dementia process but complexity of delusions and psychosis not the common presentation for dementia that have psychosis early on such as in vascular dementia or LBD. Pt presents as gravely disable to able to care for self due to symptoms of psychosis and delusions. 02/03 increase night time risperidone 2mg po qhs increase cogetin at bedtime to 1mg po qhs. lower daily dose to 0.5mg po daily. continue cogentin 0.5mg po daily. clonazepam as prn olanzapine as prn for agitation 02/04 continue tx. 02/05 continue tx. 02/06 continue current dose of risperidone. NOTE THAT pt can't take doses higher than 3 mg/day of risperidone as higher doses had severe EPS. can use olanzapine as well per court order. 02/07/25: Patient has been agitated yelling loudly exist seeking, delusional thinking her daughter/son outside at the door to pick her up. PRNs given in the morning with mild effect. Patient became agitated, aggressive\, assaultive to 1 of the staff on the floor, yelling and hitting her face so grabbing her neck. Physical was started at 16:31 to 1634. Patient was given IM medication of Zyprexa 10 and Valium 10 with good effect. Tomorrow plan: Patient will be benefit from Valium 10 mg twice a day and Zyprexa 5 mg 3 times a day is added into her scheduled medication as current plan with risperidone is not effective. Patient also having a backup for risperidone if she refused. 02/08/25: Slept most of the morning and last night. In better behavior control. No aggressive behavior. She is quiet, self dialogue, and medication compliant. Due to receive restrain medication yesterday. I did not make any medication change. But the Valium and additional Zyprexa appears to be helpful. 02/09 will try to change keppra to depakote for seizures as keppra may exacerbate psychosis. increase risperidone 1mg po daily and 2mg po qhs. may need to add second antipsychotic. 02/10 continues to present as paranoid with AH. at times declines oral medications, requiring IM back per court order. 02/11 continue tx. 02/12 continue tx. 02/13 continue tx. 02/14: no changes today. Monitor for agitation around confusion about hospitalization 02/15: no changes today, self dialogue more overt/extensive today 02/16 add olanzapine 5mg po qhs. continue risperidone. minimal improvement if any. 02/17 continue tx. 02/18 seems more somnolent with bedtime olanzapine, will continue to monitor. 02/19 cbc showed thrombocytopenia, which is new and suspect related to depakote 02/20 pt appears more sedated since addition of olanzapine at bedtime. She continues to self dialogue. minimal improvement. 02/21: Continue current management and treatment plan. 02/22: continue current management and treatment plan. 02/23 continue tx. may need to affirm HCP try different antipsychotic. 02/24 continue tx. results of LENORE 1:360, pattern homogenous A. 02/25 will try rexulti, lower risperidone. pending coordination of medical care to see if underlying autoimmune condition has anything to do with current presentation. 02/26 discussed with hospital data reduction technician to dismiss sect 8, HCP invoked and can consent to other treatment. daughter Maricruz give permission to try different antipsychotic. 02/27 decrease risperidone to 1mg po daily, start prolixin 2.5mg po qhs, then increase to BID. continue olanzapine prn for agitation. olanzapine as well per court order. 03/03 pt seen by neurology, added HIV/RPR/LYME, can't have MRI due to cochlear implant. 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 Last Neurology appointment 01/2024. Missed appointment with rheumatology 05/2024, last seen in 02/26/2024. - Pt can't have MRI due to cochlear implant. Had head CT. - continue prolixin 2.5mg po daily, 5mg po qhs. will d/c risperidone, increase prolixin 5mg po BID, back up IM. 03/05 continue tx. 03/06 This designer writer spoke with pt's bisque kiln placer, Dr. Al obtained collateral information. Will coordinate with neurology and rheumatology once LP results are available. r/o reoccurance of pachymeningitis, lupus or other autoimmune cause for psychosis. 03/07: Continue current regimen and plans. Discontinued one-to-one and put in place 5 minute checks 03/08: Continue current plans and regimen 03/09 continue tx. 03/10: continue current mgmt. continues disorganized and psychotic. see neuro note from today. continue with neuro w/u. 03/11: given zyprexa 5 and valium [address] and head CTA. head CTA WNL, chest CT showed numerous pulmonary nodules up to 10 mm in size. no change in presentation. due to persistent requests for discharge, 3-day notice submitted on her behalf. will work toward HCP affirmation by the court. 03/12: per pulm consult, chest CT more c/w rheumatological process than CA, recommended empiric steroid course. awaiting input from neuro. consider Bx of nodules otherwise. continue current mgmt for now. 03/13: variably calm and agitated. planning for bronchoscopy with pulmonary nodule Bx on sunday. continue current mgmt. case discussed with HCP Maricruz (daughter), who is in agreement with plan. 03/14: CSF with notable findings. will f/u with neuro on sunday. stable presentation for now, remains quite psychotic. continue current mgmt. bronchoscopy sunday. 03/15: no change from yesterday in presentation or plan. 03/16: stable presentation. continues confused, wanting to go home. HCP affirmation tomorrow. continue current mgmt. 03/17: stable presdentation. bronchoscopy pending. continue current mgmt. 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 awaiting bronchoscopy. remains psychotic. continue current mgmt for now. 03/20: no change in presentation. still awaiting go-ahead for brochoscopy. continue current mgmt. 03/22: No changes. Noted above. 03/23: awaiting insurance approval for bronchoscopy. stable presentation. 03/24: as for yesterday. 03/25: loudly RIS in milieu today. bronchoscopy scheduled for sunday at 1130. NPO past MN night. stable presentation. continue current mgmt. 03/26 pt presents as more disorganized and inattentive than usual showing more signs of delirious behavior. bronchoscopy was canceled,due to shortage of needles to complete biopsy. will order cbc, cmp, ammonia levels given increase disorganized behavior and worsening attention pointing at a more delirious presentation. * Review of results from LP showing negative results for meningitis panel/paraneoplastic panel (including most common antibody found in SLC which is EARL 1 which was negative), elevated protein in CSF 131 without leukocytosis, also elevated CSF/serum IgG index. elevated anti-ds dna titer 1:80. Such results may point more to a rheumatological condition than infectious condition or malignancy. Mrs. Sharif's OP bisque kiln placer, Dr. Al recommends trial of prednisone 40mg po daily at least for 2 weeks. 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 03/31 increase prolixin to 5mg po BID. continue all other medications including prednisone 40mg po daily. 04/01 discussed with her OP bisque kiln placer, Dr. Al possibility of transferring to [facility] for further tx of autoimmune condition, suspected also having lupus. continue prednisone. Spoke with daughter who is HCP, daughter concern about pt going to [facility] due to being dismissed several times when pt was first brought psychotic. 04/02 continue tx 04/03 increase prolixin to 5mg po TID. monitor EPS. 04/06 continue tx. 04/07- pending response from [facility] to see if they will take her for further evaluation of autoimmune condition with multidisciplinary team to continue see if psychosis related to autoimmune or primarily psychosis. Some improvement in attention, less guarded. continues to have auditory hallucinations. May consider switch to clozapine given that she has tried 3 antipsychotics with limited efficacy. 04/08 start clozapine 25mg po qhs. continue prolixin 7.5mg po TID. 04/09 increase clozapine to 50mg po qhs. continue prolixin 7.5mg po TID. 04/10 decrease prolixin to 7.5mg po BID. increase clozapine to 75mg po qhs. continue increasing clozapine by 25mg/day. interlocking tower operator, recommends repeat CT in 2 weeks, and hold on bronchoscopy. 04/11: no change today, will titrate Clozapine further tomorrow 04/12: titrate Clozapine to 100 mg QHS 04/13 increase clozapine to 125mg po qhs. continue prolixin 7.5mg po BID. 04/14 Provided update to daughter Maricruz who is HCP in terms of pt being treated for both autoimmune condition that may be contributing to psychosis (with prednione) as well as primarily psychiatric disorder (although less likely) with clozapine. some improvement in attention, slightly less paranoid but continues to present with ongoing AH of her daughter. 04/15 continue tx. 04/16 continue tx. 04/17 start glycopyrralate for drooling, decrease cogentin. 04/17 increase clozapine 150mg po qhs, lower prolixin 2.5mg po BID. back up. 04/18: Continue current management and treatment plan. 04/19: continue current management and treatment plan. 04/20 increase clozapine to 175mg po qhs. 04/21 continue tx. 04/22 continue tx. 04/23 continue tx. will check clozapine levels. 04/[address] followed up done today- much less nodules seen. 04/27 no change in presentation, less paranoid towards staff but ongoing AH. Impaired awareness of surroundings and conversations mostly base on delusional content. Will consult as well with her OP [employer] Operations Staff Officer as to whether continue prednisone as initially recommended by rheumatology for suspected lupus, although it has had additional benefits in lung nodules. 04/28 increase clozapine 200mg po qhs. 04/[address] showed improvement in her pulmonary nodules and absence of pulmonary symptoms otherwise. recommendation to taper off prednisone slowly with repeat of chest CT in 3 months for stability of reminder of nodules. her OP bisque kiln placer did want to continue prednisone for suspected lupus, may discuss further with rheumatology if they want to continue prednisone or stop it. 04/30 continue tx. 05/01 continue tx. will check clozapine level on 05/04/2505/05 continue tx. pending clozapine levels. Reason for continued inpatient stay Substantial Risk for: inability to function Time Spent With Patient Time: Total time managing care of this patient today ____ minutes.
[2025-05-05 20:00] VITALS: BP 108/56; PULSE 73; RESP 16; TEMP 36.9; O2SAT 98
[2025-05-06 07:50] VITALS: BP 126/62; PULSE 67; RESP 20; TEMP 36.6; O2SAT 96
[2025-05-06] MEDS: levETIRAcetam Oral Soln 500 MG/5 ML 250 MG PO ×2 (08:30→19:59)
[2025-05-06] MEDS: NIFEdipine ER 30 MG TAB.ER.24 PO (08:31)
[2025-05-06] MEDS: Tiotropium Bromide 2.5 mcg 1 PUFF/2.5 MCG MIST.INHAL INHALE (08:33)
[2025-05-06] MEDS: Fluticasone/Vilanterol 200/25 BLST.W.DEV 1 PUFF INHALE (08:33)
[2025-05-06] MEDS: Albuterol Sulfate 90 MCG 8 GM INHALER 2 PUFF INHALE (08:45)
--- NOTE | 2025-05-06 16:57 | P.PNPSI_ITS ---
Subjective Subjective Date of Service: 05/06/25 Reason For Visit: Abnormal CT chest Subjective Notes: Section 8 Interim History: Sleeping through the night. taking medications. continues to self dialogued. friendly when approach but her ability to function is very poor and has not shown any significant improvement. Review of Systems Review of Systems Constitutional: Denies fatigue and Denies fever(s) Cardiovascular: Denies chest pain and Denies dyspnea Respiratory: Denies dyspnea Gastrointestinal: Denies abdominal pain Psychiatric: denies suicidal ideation Endocrine: Denies fatigue Yes all other systems are reviewed and are negative, Unobtainable due to mental condition, Unobtainable due to mental status and Other (patient refused to answer ROS questions) Constitutional: Reports as per HPI Eyes: Reports as per HPI Reports as per HPI Cardiovascular: Reports as per HPI Respiratory: Reports as per HPI Gastrointestinal: Reports as per HPI Musculoskeletal: Reports as per HPI Skin/Breast: Reports as per HPI Reports as per HPI and Reports confusion Psychiatric: Reports as per HPI and Reports confusion Endocrine: Reports as per HPI Hematologic/Lymphatic: Reports as per HPI Allergic/Immunologic: Reports as per HPI Mental Status Exam Mental Status Exam Narrative: Appearance: casual attire, adequate grooming and hygiene Behavior: calm, keeping to self, engagement limited by vision and hearing difficulties Orientation: alert, oriented to idea that she is in the hospital, year, month not date nor situation. Psychomotor Function: no agitation or slowing; no abnormal gestures or movements Speech: mostly clear, normal rate/rhythm/volume, spontaneous Mood: Little tired but I am ok Affect: calm, non-labile Thought Process: more linear/organized. Thought Content: feel people here are creepy Hallucinations: AH constantly talking to daughter who is not there baseline but not at the time of assessment Delusions: paranoid delusions. Insight: impairment Judgment: impairment Impulsivity: none noted Diagnostics Vital Signs (24Hr): Vital Signs - 24 hr 05/05/25 20:00 05/06/25 07:50 Temperature 98.4 F 97.9 F Pulse Rate 73 67 Respiratory Rate 16 20 Blood Pressure 108/56 L 126/62 Pulse Oximetry 98 96 Oxygen Delivery Method Room Air Room Air BMI result Body Mass Index 31.9 Labs 03/29/25 08:55 03/29/25 08:55 Imaging Radiology Impressions: ITS Impressions Head CT 03/05/25 15:51 IMPRESSION: 1. No acute intracranial abnormality. 2. Right-sided cochlear nerve implant with associated streak artifact. 3. Right-sided canal wall up mastoidectomy. Electronically signed by: Levi Greer MD 03/05/2025 04:25 PM EDT RP Lumbar Puncture Fluoroscopy 03/09/25 11:50 IMPRESSION: Successful fluoroscopy-guided lumbar puncture performed without immediate complications Electronically signed by: Thompson Andujar MD 03/09/2025 04:06 PM EDT RP Chest CT 03/11/25 11:52 IMPRESSION: 1. Multiple bilateral pulmonary nodules measuring up to 10 mm in size. Further evaluation should be based on Fleischner Society guidelines below. 2. Cardiomegaly. Findings consistent with pulmonary arterial hypertension. 3. No evidence of mediastinal or hilar lymphadenopathy. Fleischner Criteria for pulmonary nodule follow-up SOLID NODULES: Low risk patient: <6mm: no follow-up 6-8mm: 6 month follow-up CT >8mm: PET/Biopsy/ 3 month follow-up CT High risk patient: <6mm: 12 month follow-up CT 6-8mm: 6 month follow-up CT >8mm: PET/Biopsy/ 3 month follow-up CT SUB-SOLID/GROUNDGLASS NODULES: All patients: > or = 6mm: 6 month follow-up CT *Please note that in patients in the following categories, the Fleischner criteria do not apply: Immunocompromised, lung cancer screening population, age below 35, and patients with known malignancy Electronically signed by: Best Clemons MD 03/11/2025 01:45 PM EDT RP Head CTA 03/11/25 11:52 IMPRESSION: Head CT: No acute intracranial abnormality. CT angiogram of the head: No vascular occlusions. Electronically signed by: Gypsy Salamanca MD 03/11/2025 03:02 PM EDT RP Chest CT 04/24/25 09:58 IMPRESSION: 1. Majority of the previously seen pulmonary nodules have resolved, and were consistent with infectious or inflammatory etiology. 2. There is a persistent 9 mm nodular focus in the lateral right upper lobe, which is felt to represent scarring given the appearance. To be cautious, a 3 month interval follow-up CT is recommended to ensure stability. 3. There is mild to moderate paraseptal emphysema. There is no acute pneumonic consolidation. 4. There is thickening of the small airways suggesting bronchitis. 5. There is moderate cardiac enlargement. Enlarged main pulmonary artery is consistent with pulmonary arterial hypertension. Electronically signed by: Levi Greer MD 04/24/2025 10:56 AM EDT RP Medications Medications Current Medications Acetaminophen (Acetaminophen 325 Mg Tablet) 650 mg PO Q6H PRN PRN Reason: Headache/Pain, Scale 1-10 Last Admin: 05/05/25 08:44 Dose: 650 mg Al Hydroxide/Mg Hydroxide (Magnesium Hydrox/Alum Hydrox 30 Ml Oral.Susp) 30 ml PO Q6H PRN PRN Reason: Heartburn/Nausea Albuterol Sulfate (Albuterol Sulfate 90 Mcg 8 Gm Inhaler) 2 puff INHALE Q4H PRN PRN Reason: Shortness Of Breath Or Wheezing Last Admin: 05/06/25 08:45 Dose: 2 puff Atorvastatin Calcium (Atorvastatin Calcium 40 Mg Tablet) 40 mg PO DAILY [facility] Last Admin: 05/06/25 08:31 Dose: 40 mg Clonazepam (Clonazepam Odt 0.5 Mg Tab.Rapdis) 0.5 mg PO BID PRN PRN Reason: severe anxiety/sleep Last Admin: 03/31/25 20:37 Dose: 0.5 mg Clozapine (Clozapine 100 Mg Tablet) 200 mg PO BEDTIME [facility] Last Admin: 05/05/25 21:06 Dose: 200 mg Fluphenazine HCl (Fluphenazine Hcl 2.5 Mg/Ml 10 Ml Vial) 2.5 mg IM BID PRN PRN Reason: give if refuses oral per HCP Last Admin: 03/05/25 09:42 Dose: 2.5 mg Fluphenazine HCl (Fluphenazine Hcl 2.5 Mg Tablet) 2.5 mg PO BID [facility] Last Admin: 05/06/25 08:31 Dose: 2.5 mg Fluticasone/Vilanterol (Fluticasone/Vilanterol 200/25 Blst.W.Dev) 1 puff INHALE RDAILY [facility] Last Admin: 05/06/25 08:33 Dose: 1 puff Glycopyrrolate (Glycopyrrolate 1 Mg Tablet) 0.5 mg PO BID [facility] Last Admin: 05/06/25 08:30 Dose: 0.5 mg Hydrochlorothiazide (Hydrochlorothiazide 25 Mg Tablet) 25 mg PO DAILY [facility] Last Admin: 05/06/25 08:31 Dose: 25 mg Levetiracetam (Levetiracetam Oral Soln 500 Mg/5 Ml) 250 mg PO BID [facility] Last Admin: 05/06/25 08:30 Dose: 250 mg Magnesium Hydroxide (Milk Of Magnesia 30 Ml Oral.Susp) 30 ml PO DAILY PRN PRN Reason: Constipation Methimazole (Methimazole 5 Mg Tablet) 5 mg PO DAILY [facility] Last Admin: 05/06/25 08:30 Dose: 5 mg Naloxone HCl (Naloxone Hcl 0.4 Mg/Ml Vial) 0.04 mg IVPUSH Q5M PRN PRN Reason: Excessive sedation or RR < 8 Nifedipine (Nifedipine Er 30 Mg Tab.Er.24) 30 mg PO DAILY [facility]; Protocol Last Admin: 05/06/25 08:31 Dose: 30 mg Olanzapine (Olanzapine 10 Mg Tablet) 10 mg PO Q6H PRN PRN Reason: severe agitation Last Admin: 04/16/25 16:28 Dose: 10 mg Prednisone (Prednisone 20 Mg Tablet) 40 mg PO DAILY [facility] Last Admin: 05/06/25 08:31 Dose: 40 mg Tiotropium Frederick (Tiotropium Frederick 2.5 Mcg 1 Puff/2.5 Mcg Mist.Inhal) 1 puff INHALE RDAILY [facility] Last Admin: 05/06/25 08:33 Dose: 1 puff Trazodone HCl (Trazodone Hcl 50 Mg Tablet) 50 mg PO BEDTIME MRX1 PRN PRN Reason: Insomnia Last Admin: 04/04/25 23:21 Dose: 50 mg Allergies Allergies Allergy/AdvReac Type Severity Reaction Status Date / Time latex Allergy Unknown Verified 03/09/25 11:50 peanut Allergy Unknown Verified 03/09/25 11:50 Penicillins Allergy Unknown Verified 03/09/25 11:50 Assessment & Plan Assessment & Plan (1) Psychosis: Status: Acute Code(s): F29 - Unspecified psychosis not due to a substance or known physiological condition Assessment and Plan: r/o autoimmune reasons for psychosis including lupus. 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 Sharif is a 69 year-old woman who presents with a 3 month hx of new onset of psychosis (AH) and combination of paranoid delusions and cap gras delusions. No prior psychiatric hx. She does have of cocaine use but apparently had not used in some years. Daughter suspects she may have relapsed but no ongoing use. Pt presents with more complex theme of delusions. No additional medical work up available including head CT. CBC and cmp unremarkable. 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 It may be related to dementia process but complexity of delusions and psychosis not the common presentation for dementia that have psychosis early on such as in vascular dementia or LBD. Pt presents as gravely disable to able to care for self due to symptoms of psychosis and delusions. 02/03 increase night time risperidone 2mg po qhs increase cogetin at bedtime to 1mg po qhs. lower daily dose to 0.5mg po daily. continue cogentin 0.5mg po daily. clonazepam as prn olanzapine as prn for agitation 02/04 continue tx. 02/05 continue tx. 02/06 continue current dose of risperidone. NOTE THAT pt can't take doses higher than 3 mg/day of risperidone as higher doses had severe EPS. can use olanzapine as well per court order. 02/07/25: Patient has been agitated yelling loudly exist seeking, delusional thinking her daughter/son outside at the door to pick her up. PRNs given in the morning with mild effect. Patient became agitated, aggressive\, assaultive to 1 of the staff on the floor, yelling and hitting her face so grabbing her neck. Physical was started at 16:31 to 1634. Patient was given IM medication of Zyprexa 10 and Valium 10 with good effect. Tomorrow plan: Patient will be benefit from Valium 10 mg twice a day and Zyprexa 5 mg 3 times a day is added into her scheduled medication as current plan with risperidone is not effective. Patient also having a backup for risperidone if she refused. 02/08/25: Slept most of the morning and last night. In better behavior control. No aggressive behavior. She is quiet, self dialogue, and medication compliant. Due to receive restrain medication yesterday. I did not make any medication change. But the Valium and additional Zyprexa appears to be helpful. 02/09 will try to change keppra to depakote for seizures as keppra may exacerbate psychosis. increase risperidone 1mg po daily and 2mg po qhs. may need to add second antipsychotic. 02/10 continues to present as paranoid with AH. at times declines oral medications, requiring IM back per court order. 02/11 continue tx. 02/12 continue tx. 02/13 continue tx. 02/14: no changes today. Monitor for agitation around confusion about hospitalization 02/15: no changes today, self dialogue more overt/extensive today 02/16 add olanzapine 5mg po qhs. continue risperidone. minimal improvement if any. 02/17 continue tx. 02/18 seems more somnolent with bedtime olanzapine, will continue to monitor. 02/19 cbc showed thrombocytopenia, which is new and suspect related to depakote 02/20 pt appears more sedated since addition of olanzapine at bedtime. She continues to self dialogue. minimal improvement. 02/21: Continue current management and treatment plan. 02/22: continue current management and treatment plan. 02/23 continue tx. may need to affirm HCP try different antipsychotic. 02/24 continue tx. results of LENORE 1:360, pattern homogenous A. 02/25 will try rexulti, lower risperidone. pending coordination of medical care to see if underlying autoimmune condition has anything to do with current presentation. 02/26 discussed with hospital employment attorney to dismiss sect 8, HCP invoked and can consent to other treatment. daughter Maricruz give permission to try different antipsychotic. 02/27 decrease risperidone to 1mg po daily, start prolixin 2.5mg po qhs, then increase to BID. continue olanzapine prn for agitation. olanzapine as well per court order. 03/03 pt seen by neurology, added HIV/RPR/LYME, can't have MRI due to cochlear implant. 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 Last Neurology appointment 01/2024. Missed appointment with rheumatology 05/2024, last seen in 02/26/2024. - Pt can't have MRI due to cochlear implant. Had head CT. - continue prolixin 2.5mg po daily, 5mg po qhs. will d/c risperidone, increase prolixin 5mg po BID, back up IM. 03/05 continue tx. 03/06 This brief writer spoke with pt's corporate development associate, Dr. Al obtained collateral information. Will coordinate with neurology and rheumatology once LP results are available. r/o reoccurance of pachymeningitis, lupus or other autoimmune cause for psychosis. 03/07: Continue current regimen and plans. Discontinued one-to-one and put in place 5 minute checks 03/08: Continue current plans and regimen 03/09 continue tx. 03/10: continue current mgmt. continues disorganized and psychotic. see neuro note from today. continue with neuro w/u. 03/11: given zyprexa 5 and valium [address] and head CTA. head CTA WNL, chest CT showed numerous pulmonary nodules up to 10 mm in size. no change in presentation. due to persistent requests for discharge, 3-day notice submitted on her behalf. will work toward HCP affirmation by the court. 03/12: per pulm consult, chest CT more c/w rheumatological process than CA, recommended empiric steroid course. awaiting input from neuro. consider Bx of nodules otherwise. continue current mgmt for now. 03/13: variably calm and agitated. planning for bronchoscopy with pulmonary nodule Bx on sunday. continue current mgmt. case discussed with HCP Maricruz (daughter), who is in agreement with plan. 03/14: CSF with notable findings. will f/u with neuro on sunday. stable presentation for now, remains quite psychotic. continue current mgmt. bronchoscopy sunday. 03/15: no change from yesterday in presentation or plan. 03/16: stable presentation. continues confused, wanting to go home. HCP affirmation tomorrow. continue current mgmt. 03/17: stable presdentation. bronchoscopy pending. continue current mgmt. 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 awaiting bronchoscopy. remains psychotic. continue current mgmt for now. 03/20: no change in presentation. still awaiting go-ahead for brochoscopy. continue current mgmt. 03/22: No changes. Noted above. 03/23: awaiting insurance approval for bronchoscopy. stable presentation. 03/24: as for yesterday. 03/25: loudly RIS in milieu today. bronchoscopy scheduled for sunday at 1130. NPO past MN night. stable presentation. continue current mgmt. 03/26 pt presents as more disorganized and inattentive than usual showing more signs of delirious behavior. bronchoscopy was canceled,due to shortage of needles to complete biopsy. will order cbc, cmp, ammonia levels given increase disorganized behavior and worsening attention pointing at a more delirious presentation. * Review of results from LP showing negative results for meningitis panel/paraneoplastic panel (including most common antibody found in SLC which is EARL 1 which was negative), elevated protein in CSF 131 without leukocytosis, also elevated CSF/serum IgG index. elevated anti-ds dna titer 1:80. Such results may point more to a rheumatological condition than infectious condition or malignancy. Mrs. Sharif's OP corporate development associate, Dr. Al recommends trial of prednisone 40mg po daily at least for 2 weeks. 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 03/31 increase prolixin to 5mg po BID. continue all other medications including prednisone 40mg po daily. 04/01 discussed with her OP corporate development associate, Dr. Al possibility of transferring to [facility] for further tx of autoimmune condition, suspected also having lupus. continue prednisone. Spoke with daughter who is HCP, daughter concern about pt going to [facility] due to being dismissed several times when pt was first brought psychotic. 04/02 continue tx 04/03 increase prolixin to 5mg po TID. monitor EPS. 04/06 continue tx. 04/07- pending response from [facility] to see if they will take her for further evaluation of autoimmune condition with multidisciplinary team to continue see if psychosis related to autoimmune or primarily psychosis. Some improvement in attention, less guarded. continues to have auditory hallucinations. May consider switch to clozapine given that she has tried 3 antipsychotics with limited efficacy. 04/08 start clozapine 25mg po qhs. continue prolixin 7.5mg po TID. 04/09 increase clozapine to 50mg po qhs. continue prolixin 7.5mg po TID. 04/10 decrease prolixin to 7.5mg po BID. increase clozapine to 75mg po qhs. continue increasing clozapine by 25mg/day. classroom monitor, recommends repeat CT in 2 weeks, and hold on bronchoscopy. 04/11: no change today, will titrate Clozapine further tomorrow 04/12: titrate Clozapine to 100 mg QHS 04/13 increase clozapine to 125mg po qhs. continue prolixin 7.5mg po BID. 04/14 Provided update to daughter Maricruz who is HCP in terms of pt being treated for both autoimmune condition that may be contributing to psychosis (with prednione) as well as primarily psychiatric disorder (although less likely) with clozapine. some improvement in attention, slightly less paranoid but continues to present with ongoing AH of her daughter. 04/15 continue tx. 04/16 continue tx. 04/17 start glycopyrralate for drooling, decrease cogentin. 04/17 increase clozapine 150mg po qhs, lower prolixin 2.5mg po BID. back up. 04/18: Continue current management and treatment plan. 04/19: continue current management and treatment plan. 04/20 increase clozapine to 175mg po qhs. 04/21 continue tx. 04/22 continue tx. 04/23 continue tx. will check clozapine levels. 04/[address] followed up done today- much less nodules seen. 04/27 no change in presentation, less paranoid towards staff but ongoing AH. Impaired awareness of surroundings and conversations mostly base on delusional content. Will consult as well with her OP [employer] as to whether continue prednisone as initially recommended by rheumatology for suspected lupus, although it has had additional benefits in lung nodules. 04/28 increase clozapine 200mg po qhs. 04/[address] showed improvement in her pulmonary nodules and absence of pulmonary symptoms otherwise. recommendation to taper off prednisone slowly with repeat of chest CT in 3 months for stability of reminder of nodules. her OP corporate development associate did want to continue prednisone for suspected lupus, may discuss further with rheumatology if they want to continue prednisone or stop it. 04/30 continue tx. 05/01 continue tx. will check clozapine level on 05/04/2505/05 continue tx. pending clozapine levels. 05/06 continue tx. Reason for continued inpatient stay Substantial Risk for: inability to function Time Spent With Patient Time: Total time managing care of this patient today ____ minutes.
[2025-05-06 19:56] VITALS: BP 112/56; PULSE 69; RESP 16; TEMP 36; O2SAT 95
[2025-05-07] MEDS: Fluticasone/Vilanterol 200/25 BLST.W.DEV 1 PUFF INHALE (09:28)
[2025-05-07] MEDS: Tiotropium Bromide 2.5 mcg 1 PUFF/2.5 MCG MIST.INHAL INHALE (09:28)
[2025-05-07] MEDS: levETIRAcetam Oral Soln 500 MG/5 ML 250 MG PO ×2 (09:29→19:52)
[2025-05-07] MEDS: Albuterol Sulfate 90 MCG 8 GM INHALER 2 PUFF INHALE (09:35)
[2025-05-07 09:39] VITALS: BP 128/60; PULSE 71; RESP 18; TEMP 36.3; O2SAT 95
[2025-05-07] MEDS: NIFEdipine ER 30 MG TAB.ER.24 PO (09:41)
--- NOTE | 2025-05-07 17:36 | HO.PSYCHPN ---
Subjective Subjective Date of Service: 05/07/25 Reason For Visit: Abnormal CT chest Interim History: Sleeping through the night. taking medications. continues to self dialogued. friendly when approach but her ability to function is very poor and has not shown any significant improvement. Review of Systems Review of Systems Constitutional: Denies fatigue and Denies fever(s) Cardiovascular: Denies chest pain and Denies dyspnea Respiratory: Denies dyspnea Gastrointestinal: Denies abdominal pain Psychiatric: denies suicidal ideation Endocrine: Denies fatigue Yes all other systems are reviewed and are negative, Unobtainable due to mental condition, Unobtainable due to mental status and Other (patient refused to answer ROS questions) Constitutional: Reports as per HPI Eyes: Reports as per HPI Reports as per HPI Cardiovascular: Reports as per HPI Respiratory: Reports as per HPI Gastrointestinal: Reports as per HPI Musculoskeletal: Reports as per HPI Skin/Breast: Reports as per HPI Reports as per HPI and Reports confusion Psychiatric: Reports as per HPI and Reports confusion Endocrine: Reports as per HPI Hematologic/Lymphatic: Reports as per HPI Allergic/Immunologic: Reports as per HPI Mental Status Exam Mental Status Exam Narrative: Appearance: casual attire, adequate grooming and hygiene Behavior: calm, keeping to self, engagement limited by vision and hearing difficulties Orientation: alert, oriented to idea that she is in the hospital, year, month not date nor situation. Psychomotor Function: no agitation or slowing; no abnormal gestures or movements Speech: mostly clear, normal rate/rhythm/volume, spontaneous Mood: Little tired but I am ok Affect: calm, non-labile Thought Process: more linear/organized. Thought Content: feel people here are creepy Hallucinations: AH constantly talking to daughter who is not there baseline but not at the time of assessment Delusions: paranoid delusions. Insight: impairment Judgment: impairment Impulsivity: none noted Diagnostics Vital Signs (24Hr): Vital Signs - 24 hr 05/06/25 19:56 05/07/25 09:39 Temperature 96.8 F 97.4 F Pulse Rate 69 71 Respiratory Rate 16 18 Blood Pressure 112/56 L 128/60 Pulse Oximetry 95 95 Oxygen Delivery Method Room Air Room Air BMI result Body Mass Index 31.9 Labs 03/29/25 08:55 03/29/25 08:55 Imaging Radiology Impressions: ITS Impressions Head CT 03/05/25 15:51 IMPRESSION: 1. No acute intracranial abnormality. 2. Right-sided cochlear nerve implant with associated streak artifact. 3. Right-sided canal wall up mastoidectomy. Electronically signed by: Levi Greer MD 03/05/2025 04:25 PM EDT RP Lumbar Puncture Fluoroscopy 03/09/25 11:50 IMPRESSION: Successful fluoroscopy-guided lumbar puncture performed without immediate complications Electronically signed by: Thompson Andujar MD 03/09/2025 04:06 PM EDT RP Chest CT 03/11/25 11:52 IMPRESSION: 1. Multiple bilateral pulmonary nodules measuring up to 10 mm in size. Further evaluation should be based on Fleischner Society guidelines below. 2. Cardiomegaly. Findings consistent with pulmonary arterial hypertension. 3. No evidence of mediastinal or hilar lymphadenopathy. Fleischner Criteria for pulmonary nodule follow-up SOLID NODULES: Low risk patient: <6mm: no follow-up 6-8mm: 6 month follow-up CT >8mm: PET/Biopsy/ 3 month follow-up CT High risk patient: <6mm: 12 month follow-up CT 6-8mm: 6 month follow-up CT >8mm: PET/Biopsy/ 3 month follow-up CT SUB-SOLID/GROUNDGLASS NODULES: All patients: > or = 6mm: 6 month follow-up CT *Please note that in patients in the following categories, the Fleischner criteria do not apply: Immunocompromised, lung cancer screening population, age below 35, and patients with known malignancy Electronically signed by: Best Clemons MD 03/11/2025 01:45 PM EDT RP Head CTA 03/11/25 11:52 IMPRESSION: Head CT: No acute intracranial abnormality. CT angiogram of the head: No vascular occlusions. Electronically signed by: Gypsy Salamanca MD 03/11/2025 03:02 PM EDT RP Chest CT 04/24/25 09:58 IMPRESSION: 1. Majority of the previously seen pulmonary nodules have resolved, and were consistent with infectious or inflammatory etiology. 2. There is a persistent 9 mm nodular focus in the lateral right upper lobe, which is felt to represent scarring given the appearance. To be cautious, a 3 month interval follow-up CT is recommended to ensure stability. 3. There is mild to moderate paraseptal emphysema. There is no acute pneumonic consolidation. 4. There is thickening of the small airways suggesting bronchitis. 5. There is moderate cardiac enlargement. Enlarged main pulmonary artery is consistent with pulmonary arterial hypertension. Electronically signed by: Levi Greer MD 04/24/2025 10:56 AM EDT Medications Medications Current Medications Acetaminophen (Acetaminophen 325 Mg Tablet) 650 mg PO Q6H PRN PRN Reason: Headache/Pain, Scale 1-10 Last Admin: 05/07/25 09:35 Dose: 650 mg Al Hydroxide/Mg Hydroxide (Magnesium Hydrox/Alum Hydrox 30 Ml Oral.Susp) 30 ml PO Q6H PRN PRN Reason: Heartburn/Nausea Albuterol Sulfate (Albuterol Sulfate 90 Mcg 8 Gm Inhaler) 2 puff INHALE Q4H PRN PRN Reason: Shortness Of Breath Or Wheezing Last Admin: 05/07/25 09:35 Dose: 2 puff Atorvastatin Calcium (Atorvastatin Calcium 40 Mg Tablet) 40 mg PO DAILY [facility] [place] Last Admin: 05/07/25 09:36 Dose: 40 mg Clonazepam (Clonazepam Odt 0.5 Mg Tab.Rapdis) 0.5 mg PO BID PRN PRN Reason: severe anxiety/sleep Last Admin: 03/31/25 20:37 Dose: 0.5 mg Clozapine (Clozapine 100 Mg Tablet) 200 mg PO BEDTIME [facility] [place] Last Admin: 05/06/25 19:59 Dose: 200 mg Fluphenazine HCl (Fluphenazine Hcl 2.5 Mg/Ml 10 Ml Vial) 2.5 mg IM BID PRN PRN Reason: give if refuses oral per HCP Last Admin: 03/05/25 09:42 Dose: 2.5 mg Fluphenazine HCl (Fluphenazine Hcl 2.5 Mg Tablet) 2.5 mg PO BID [facility] [place] Last Admin: 05/07/25 09:37 Dose: 2.5 mg Fluticasone/Vilanterol (Fluticasone/Vilanterol 200/25 Blst.W.Dev) 1 puff INHALE RDAILY [facility] [place] Last Admin: 05/07/25 09:28 Dose: 1 puff Glycopyrrolate (Glycopyrrolate 1 Mg Tablet) 0.5 mg PO BID [facility] [place] Last Admin: 05/07/25 09:36 Dose: 0.5 mg Hydrochlorothiazide (Hydrochlorothiazide 25 Mg Tablet) 25 mg PO DAILY [facility] [place] Last Admin: 05/07/25 09:38 Dose: 25 mg Levetiracetam (Levetiracetam Oral Soln 500 Mg/5 Ml) 250 mg PO BID [facility] [place] Last Admin: 05/07/25 09:29 Dose: 250 mg Magnesium Hydroxide (Milk Of Magnesia 30 Ml Oral.Susp) 30 ml PO DAILY PRN PRN Reason: Constipation Methimazole (Methimazole 5 Mg Tablet) 5 mg PO DAILY [facility] [place] Last Admin: 05/07/25 09:38 Dose: 5 mg Naloxone HCl (Naloxone Hcl 0.4 Mg/Ml Vial) 0.04 mg IVPUSH Q5M PRN PRN Reason: Excessive sedation or RR < 8 Nifedipine (Nifedipine Er 30 Mg Tab.Er.24) 30 mg PO DAILY [facility] [place]; Protocol Last Admin: 05/07/25 09:41 Dose: 30 mg Olanzapine (Olanzapine 10 Mg Tablet) 10 mg PO Q6H PRN PRN Reason: severe agitation Last Admin: 04/16/25 16:28 Dose: 10 mg Prednisone (Prednisone 20 Mg Tablet) 40 mg PO DAILY [facility] [place] Last Admin: 05/07/25 09:41 Dose: 40 mg Tiotropium [place] (Tiotropium [place] 2.5 Mcg 1 Puff/2.5 Mcg Mist.Inhal) 1 puff INHALE RDAILY [facility] [place] Last Admin: 05/07/25 09:28 Dose: 1 puff Trazodone HCl (Trazodone Hcl 50 Mg Tablet) 50 mg PO BEDTIME MRX1 PRN PRN Reason: Insomnia Last Admin: 04/04/25 23:21 Dose: 50 mg Allergies Allergies Allergy/AdvReac Type Severity Reaction Status Date / Time latex Allergy Unknown Verified 03/09/25 11:50 peanut Allergy Unknown Verified 03/09/25 11:50 Penicillins Allergy Unknown Verified 03/09/25 11:50 Assessment & Plan Assessment & Plan (1) Psychosis: Status: Acute Code(s): F29 - Unspecified psychosis not due to a substance or known physiological condition Assessment and Plan: r/o autoimmune reasons for psychosis including lupus. 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 Sharif is a 69 year-old woman who presents with a 3 month hx of new onset of psychosis (AH) and combination of paranoid delusions and cap gras delusions. No prior psychiatric hx. She does have of cocaine use but apparently had not used in some years. Daughter suspects she may have relapsed but no ongoing use. Pt presents with more complex theme of delusions. No additional medical work up available including head CT. CBC and cmp unremarkable. 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 It may be related to dementia process but complexity of delusions and psychosis not the common presentation for dementia that have psychosis early on such as in vascular dementia or LBD. Pt presents as gravely disable to able to care for self due to symptoms of psychosis and delusions. 02/03 increase night time risperidone 2mg po qhs increase cogetin at bedtime to 1mg po qhs. lower daily dose to 0.5mg po daily. continue cogentin 0.5mg po daily. clonazepam as prn olanzapine as prn for agitation 02/04 continue tx. 02/05 continue tx. 02/06 continue current dose of risperidone. NOTE THAT pt can't take doses higher than 3 mg/day of risperidone as higher doses had severe EPS. can use olanzapine as well per court order. 02/07/25: Patient has been agitated yelling loudly exist seeking, delusional thinking her daughter/son outside at the door to pick her up. PRNs given in the morning with mild effect. Patient became agitated, aggressive\, assaultive to 1 of the staff on the floor, yelling and hitting her face so grabbing her neck. Physical was started at 16:31 to 1634. Patient was given IM medication of Zyprexa 10 and Valium 10 with good effect. Tomorrow plan: Patient will be benefit from Valium 10 mg twice a day and Zyprexa 5 mg 3 times a day is added into her scheduled medication as current plan with risperidone is not effective. Patient also having a backup for risperidone if she refused. 02/08/25: Slept most of the morning and last night. In better behavior control. No aggressive behavior. She is quiet, self dialogue, and medication compliant. Due to receive restrain medication yesterday. I did not make any medication change. But the Valium and additional Zyprexa appears to be helpful. 02/09 will try to change keppra to depakote for seizures as keppra may exacerbate psychosis. increase risperidone 1mg po daily and 2mg po qhs. may need to add second antipsychotic. 02/10 continues to present as paranoid with AH. at times declines oral medications, requiring IM back per court order. 02/11 continue tx. 02/12 continue tx. 02/13 continue tx. 02/14: no changes today. Monitor for agitation around confusion about hospitalization 02/15: no changes today, self dialogue more overt/extensive today 02/16 add olanzapine 5mg po qhs. continue risperidone. minimal improvement if any. 02/17 continue tx. 02/18 seems more somnolent with bedtime olanzapine, will continue to monitor. 02/19 cbc showed thrombocytopenia, which is new and suspect related to depakote 02/20 pt appears more sedated since addition of olanzapine at bedtime. She continues to self dialogue. minimal improvement. 02/21: Continue current management and treatment plan. 02/22: continue current management and treatment plan. 02/23 continue tx. may need to affirm HCP try different antipsychotic. 02/24 continue tx. results of LENORE 1:360, pattern homogenous A. 02/25 will try rexulti, lower risperidone. pending coordination of medical care to see if underlying autoimmune condition has anything to do with current presentation. 02/26 discussed with hospital hogshead roller to dismiss sect 8, HCP invoked and can consent to other treatment. daughter Maricruz give permission to try different antipsychotic. 02/27 decrease risperidone to 1mg po daily, start prolixin 2.5mg po qhs, then increase to BID. continue olanzapine prn for agitation. olanzapine as well per court order. 03/03 pt seen by neurology, added HIV/RPR/LYME, can't have MRI due to cochlear implant. 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 Last Neurology appointment 01/2024. Missed appointment with rheumatology 05/2024, last seen in 02/26/2024. - Pt can't have MRI due to cochlear implant. Had head CT. - continue prolixin 2.5mg po daily, 5mg po qhs. will d/c risperidone, increase prolixin 5mg po BID, back up IM. 03/05 continue tx. 03/06 This comic book writer spoke with pt's carton catcher, Dr. Al obtained collateral information. Will coordinate with neurology and rheumatology once LP results are available. r/o reoccurance of pachymeningitis, lupus or other autoimmune cause for psychosis. 03/07: Continue current regimen and plans. Discontinued one-to-one and put in place 5 minute checks 03/08: Continue current plans and regimen 03/09 continue tx. 03/10: continue current mgmt. continues disorganized and psychotic. see neuro note from today. continue with neuro w/u. 03/11: given zyprexa 5 and valium [address] and head CTA. head CTA WNL, chest CT showed numerous pulmonary nodules up to 10 mm in size. no change in presentation. due to persistent requests for discharge, 3-day notice submitted on her behalf. will work toward HCP affirmation by the court. 03/12: per pulm consult, chest CT more c/w rheumatological process than CA, recommended empiric steroid course. awaiting input from neuro. consider Bx of nodules otherwise. continue current mgmt for now. 03/13: variably calm and agitated. planning for bronchoscopy with pulmonary nodule Bx on sunday. continue current mgmt. case discussed with HCP Maricruz (daughter), who is in agreement with plan. 03/14: CSF with notable findings. will f/u with neuro on sunday. stable presentation for now, remains quite psychotic. continue current mgmt. bronchoscopy sunday. 03/15: no change from yesterday in presentation or plan. 03/16: stable presentation. continues confused, wanting to go home. HCP affirmation tomorrow. continue current mgmt. 03/17: stable presdentation. bronchoscopy pending. continue current mgmt. 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 awaiting bronchoscopy. remains psychotic. continue current mgmt for now. 03/20: no change in presentation. still awaiting go-ahead for brochoscopy. continue current mgmt. 03/22: No changes. Noted above. 03/23: awaiting insurance approval for bronchoscopy. stable presentation. 03/24: as for yesterday. 03/25: loudly RIS in milieu today. bronchoscopy scheduled for sunday at 1130. NPO past MN night. stable presentation. continue current mgmt. 03/26 pt presents as more disorganized and inattentive than usual showing more signs of delirious behavior. bronchoscopy was canceled,due to shortage of needles to complete biopsy. will order cbc, cmp, ammonia levels given increase disorganized behavior and worsening attention pointing at a more delirious presentation. Review of results from LP showing negative results for meningitis panel/paraneoplastic panel (including most common antibody found in SLC which is EARL 1 which was negative), elevated protein in CSF 131 without leukocytosis, also elevated CSF/serum IgG index. elevated anti-ds dna titer 1:80. Such results may point more to a rheumatological condition than infectious condition or malignancy. Mrs. Sharif's OP carton catcher, Dr. Al recommends trial of prednisone 40mg po daily at least for 2 weeks. 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 03/31 increase prolixin to 5mg po BID. continue all other medications including prednisone 40mg po daily. 04/01 discussed with her OP carton catcher, Dr. Al possibility of transferring to [facility] for further tx of autoimmune condition, suspected also having lupus. continue prednisone. Spoke with daughter who is HCP, daughter concern about pt going to [facility] due to being dismissed several times when pt was first brought psychotic. 04/02 continue tx 04/03 increase prolixin to 5mg po TID. monitor EPS. 04/06 continue tx. 04/07- pending response from [facility] to see if they will take her for further evaluation of autoimmune condition with multidisciplinary team to continue see if psychosis related to autoimmune or primarily psychosis. Some improvement in attention, less guarded. continues to have auditory hallucinations. May consider switch to clozapine given that she has tried 3 antipsychotics with limited efficacy. 04/08 start clozapine 25mg po qhs. continue prolixin 7.5mg po TID. 04/09 increase clozapine to 50mg po qhs. continue prolixin 7.5mg po TID. 04/10 decrease prolixin to 7.5mg po BID. increase clozapine to 75mg po qhs. continue increasing clozapine by 25mg/day. carton wrapper, recommends repeat CT in 2 weeks, and hold on bronchoscopy. 04/11: no change today, will titrate Clozapine further tomorrow 04/12: titrate Clozapine to 100 mg QHS 04/13 increase clozapine to 125mg po qhs. continue prolixin 7.5mg po BID. 04/14 Provided update to daughter Maricruz who is HCP in terms of pt being treated for both autoimmune condition that may be contributing to psychosis (with prednione) as well as primarily psychiatric disorder (although less likely) with clozapine. some improvement in attention, slightly less paranoid but continues to present with ongoing AH of her daughter. 04/15 continue tx. 04/16 continue tx. 04/17 start glycopyrralate for drooling, decrease cogentin. 04/17 increase clozapine 150mg po qhs, lower prolixin 2.5mg po BID. back up. 04/18: Continue current management and treatment plan. 04/19: continue current management and treatment plan. 04/20 increase clozapine to 175mg po qhs. 04/21 continue tx. 04/22 continue tx. 04/23 continue tx. will check clozapine levels. 04/[address] followed up done today- much less nodules seen. 04/27 no change in presentation, less paranoid towards staff but ongoing AH. Impaired awareness of surroundings and conversations mostly base on delusional content. Will consult as well with her OP Sequins Stringer as to whether continue prednisone as initially recommended by rheumatology for suspected lupus, although it has had additional benefits in lung nodules. 04/28 increase clozapine 200mg po qhs. 04/[address] showed improvement in her pulmonary nodules and absence of pulmonary symptoms otherwise. recommendation to taper off prednisone slowly with repeat of chest CT in 3 months for stability of reminder of nodules. her OP carton catcher did want to continue prednisone for suspected lupus, may discuss further with rheumatology if they want to continue prednisone or stop it. 04/30 continue tx. 05/01 continue tx. will check clozapine level on 05/04/2505/05 continue tx. pending clozapine levels. 05/06 continue tx. 05/07 continue tx. Reason for continued inpatient stay Substantial Risk for: inability to function Time Spent With Patient Time: Total time managing care of this patient today ____ minutes.
[2025-05-07 19:50] VITALS: BP 131/67; PULSE 81; RESP 16; TEMP 36.3; O2SAT 97
[2025-05-08 08:00] VITALS: BP 128/60; PULSE 65; RESP 18; TEMP 36.6; O2SAT 96
[2025-05-08] MEDS: Tiotropium Bromide 2.5 mcg 1 PUFF/2.5 MCG MIST.INHAL INHALE (08:08)
[2025-05-08] MEDS: levETIRAcetam Oral Soln 500 MG/5 ML 250 MG PO ×2 (08:08→21:15)
[2025-05-08] MEDS: Fluticasone/Vilanterol 200/25 BLST.W.DEV 1 PUFF INHALE (08:08)
[2025-05-08] MEDS: NIFEdipine ER 30 MG TAB.ER.24 PO (08:09)
--- NOTE | 2025-05-08 09:38 | HO.PSYCHPN ---
Subjective Subjective Date of Service: 05/08/25 Reason For Visit: Abnormal CT chest Interim History: Sleeping through the night. taking medications. continues to self dialogued. friendly when approach but her ability to function is very poor and has not shown any significant improvement. Review of Systems Review of Systems Constitutional: Denies fatigue and Denies fever(s) Cardiovascular: Denies chest pain and Denies dyspnea Respiratory: Denies dyspnea Gastrointestinal: Denies abdominal pain Psychiatric: denies suicidal ideation Endocrine: Denies fatigue Yes all other systems are reviewed and are negative, Unobtainable due to mental condition, Unobtainable due to mental status and Other (patient refused to answer ROS questions) Constitutional: Reports as per HPI Eyes: Reports as per HPI Reports as per HPI Cardiovascular: Reports as per HPI Respiratory: Reports as per HPI Gastrointestinal: Reports as per HPI Musculoskeletal: Reports as per HPI Skin/Breast: Reports as per HPI Reports as per HPI and Reports confusion Psychiatric: Reports as per HPI and Reports confusion Endocrine: Reports as per HPI Hematologic/Lymphatic: Reports as per HPI Allergic/Immunologic: Reports as per HPI Mental Status Exam Mental Status Exam Narrative: Appearance: casual attire, adequate grooming and hygiene Behavior: calm, keeping to self, engagement limited by vision and hearing difficulties Orientation: alert, oriented to idea that she is in the hospital, year, month not date nor situation. Psychomotor Function: no agitation or slowing; no abnormal gestures or movements Speech: mostly clear, normal rate/rhythm/volume, spontaneous Mood: Little tired but I am ok Affect: calm, non-labile Thought Process: more linear/organized. Thought Content: feel people here are creepy Hallucinations: AH constantly talking to daughter who is not there baseline but not at the time of assessment Delusions: paranoid delusions. Insight: impairment Judgment: impairment Impulsivity: none noted Diagnostics Vital Signs (24Hr): Vital Signs - 24 hr 05/07/25 09:39 05/07/25 19:50 05/08/25 08:00 Temperature 97.4 F 97.3 F 97.9 F Pulse Rate 71 81 65 Respiratory Rate 18 16 18 Blood Pressure 128/60 131/67 128/60 Pulse Oximetry 95 97 96 Oxygen Delivery Method Room Air Room Air Room Air BMI result Body Mass Index 31.9 Labs 03/29/25 08:55 03/29/25 08:55 Imaging Radiology Impressions: ITS Impressions Head CT 03/05/25 15:51 IMPRESSION: 1. No acute intracranial abnormality. 2. Right-sided cochlear nerve implant with associated streak artifact. 3. Right-sided canal wall up mastoidectomy. Electronically signed by: Levi Greer MD 03/05/2025 04:25 PM EDT RP Lumbar Puncture Fluoroscopy 03/09/25 11:50 IMPRESSION: Successful fluoroscopy-guided lumbar puncture performed without immediate complications Electronically signed by: Thompson Andujar MD 03/09/2025 04:06 PM EDT RP Chest CT 03/11/25 11:52 IMPRESSION: 1. Multiple bilateral pulmonary nodules measuring up to 10 mm in size. Further evaluation should be based on Fleischner Society guidelines below. 2. Cardiomegaly. Findings consistent with pulmonary arterial hypertension. 3. No evidence of mediastinal or hilar lymphadenopathy. Fleischner Criteria for pulmonary nodule follow-up SOLID NODULES: Low risk patient: <6mm: no follow-up 6-8mm: 6 month follow-up CT >8mm: PET/Biopsy/ 3 month follow-up CT High risk patient: <6mm: 12 month follow-up CT 6-8mm: 6 month follow-up CT >8mm: PET/Biopsy/ 3 month follow-up CT SUB-SOLID/GROUNDGLASS NODULES: All patients: > or = 6mm: 6 month follow-up CT *Please note that in patients in the following categories, the Fleischner criteria do not apply: Immunocompromised, lung cancer screening population, age below 35, and patients with known malignancy Electronically signed by: Best Clemons MD 03/11/2025 01:45 PM EDT RP Head CTA 03/11/25 11:52 IMPRESSION: Head CT: No acute intracranial abnormality. CT angiogram of the head: No vascular occlusions. Electronically signed by: Gypsy Salamanca MD 03/11/2025 03:02 PM EDT RP Chest CT 04/24/25 09:58 IMPRESSION: 1. Majority of the previously seen pulmonary nodules have resolved, and were consistent with infectious or inflammatory etiology. 2. There is a persistent 9 mm nodular focus in the lateral right upper lobe, which is felt to represent scarring given the appearance. To be cautious, a 3 month interval follow-up CT is recommended to ensure stability. 3. There is mild to moderate paraseptal emphysema. There is no acute pneumonic consolidation. 4. There is thickening of the small airways suggesting bronchitis. 5. There is moderate cardiac enlargement. Enlarged main pulmonary artery is consistent with pulmonary arterial hypertension. Electronically signed by: Levi Greer MD 04/24/2025 10:56 AM EDT Medications Medications Current Medications Acetaminophen (Acetaminophen 325 Mg Tablet) 650 mg PO Q6H PRN PRN Reason: Headache/Pain, Scale 1-10 Last Admin: 05/07/25 09:35 Dose: 650 mg Al Hydroxide/Mg Hydroxide (Magnesium Hydrox/Alum Hydrox 30 Ml Oral.Susp) 30 ml PO Q6H PRN PRN Reason: Heartburn/Nausea Albuterol Sulfate (Albuterol Sulfate 90 Mcg 8 Gm Inhaler) 2 puff INHALE Q4H PRN PRN Reason: Shortness Of Breath Or Wheezing Last Admin: 05/07/25 09:35 Dose: 2 puff Atorvastatin Calcium (Atorvastatin Calcium 40 Mg Tablet) 40 mg PO DAILY [facility] Last Admin: 05/08/25 08:09 Dose: 40 mg Clonazepam (Clonazepam Odt 0.5 Mg Tab.Rapdis) 0.5 mg PO BID PRN PRN Reason: severe anxiety/sleep Last Admin: 03/31/25 20:37 Dose: 0.5 mg Clozapine (Clozapine 100 Mg Tablet) 200 mg PO BEDTIME [facility] Last Admin: 05/07/25 19:51 Dose: 200 mg Fluphenazine HCl (Fluphenazine Hcl 2.5 Mg/Ml 10 Ml Vial) 2.5 mg IM BID PRN PRN Reason: give if refuses oral per HCP Last Admin: 03/05/25 09:42 Dose: 2.5 mg Fluphenazine HCl (Fluphenazine Hcl 2.5 Mg Tablet) 2.5 mg PO BID [facility] Last Admin: 05/08/25 08:09 Dose: 2.5 mg Fluticasone/Vilanterol (Fluticasone/Vilanterol 200/25 Blst.W.Dev) 1 puff INHALE RDAILY [facility] Last Admin: 05/08/25 08:08 Dose: 1 puff Glycopyrrolate (Glycopyrrolate 1 Mg Tablet) 0.5 mg PO BID [facility] Last Admin: 05/08/25 08:09 Dose: 0.5 mg Hydrochlorothiazide (Hydrochlorothiazide 25 Mg Tablet) 25 mg PO DAILY [facility] Last Admin: 05/08/25 08:09 Dose: 25 mg Levetiracetam (Levetiracetam Oral Soln 500 Mg/5 Ml) 250 mg PO BID [facility] Last Admin: 05/08/25 08:08 Dose: 250 mg Magnesium Hydroxide (Milk Of Magnesia 30 Ml Oral.Susp) 30 ml PO DAILY PRN PRN Reason: Constipation Methimazole (Methimazole 5 Mg Tablet) 5 mg PO DAILY [facility] Last Admin: 05/08/25 08:09 Dose: 5 mg Naloxone HCl (Naloxone Hcl 0.4 Mg/Ml Vial) 0.04 mg IVPUSH Q5M PRN PRN Reason: Excessive sedation or RR < 8 Nifedipine (Nifedipine Er 30 Mg Tab.Er.24) 30 mg PO DAILY [facility]; Protocol Last Admin: 05/08/25 08:09 Dose: 30 mg Olanzapine (Olanzapine 10 Mg Tablet) 10 mg PO Q6H PRN PRN Reason: severe agitation Last Admin: 04/16/25 16:28 Dose: 10 mg Prednisone (Prednisone 20 Mg Tablet) 40 mg PO DAILY [facility] Last Admin: 05/08/25 08:08 Dose: 40 mg Tiotropium Lincoln (Tiotropium Lincoln 2.5 Mcg 1 Puff/2.5 Mcg Mist.Inhal) 1 puff INHALE RDAILY [facility] Last Admin: 05/08/25 08:08 Dose: 1 puff Trazodone HCl (Trazodone Hcl 50 Mg Tablet) 50 mg PO BEDTIME MRX1 PRN PRN Reason: Insomnia Last Admin: 04/04/25 23:21 Dose: 50 mg Allergies Allergies Allergy/AdvReac Type Severity Reaction Status Date / Time latex Allergy Unknown Verified 03/09/25 11:50 peanut Allergy Unknown Verified 03/09/25 11:50 Penicillins Allergy Unknown Verified 03/09/25 11:50 Assessment & Plan Assessment & Plan (1) Psychosis: Status: Acute Code(s): F29 - Unspecified psychosis not due to a substance or known physiological condition Assessment and Plan: r/o autoimmune reasons for psychosis including lupus. 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 Sharif is a 69 year-old woman who presents with a 3 month hx of new onset of psychosis (AH) and combination of paranoid delusions and cap gras delusions. No prior psychiatric hx. She does have of cocaine use but apparently had not used in some years. Daughter suspects she may have relapsed but no ongoing use. Pt presents with more complex theme of delusions. No additional medical work up available including head CT. CBC and cmp unremarkable. 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 It may be related to dementia process but complexity of delusions and psychosis not the common presentation for dementia that have psychosis early on such as in vascular dementia or LBD. Pt presents as gravely disable to able to care for self due to symptoms of psychosis and delusions. 02/03 increase night time risperidone 2mg po qhs increase cogetin at bedtime to 1mg po qhs. lower daily dose to 0.5mg po daily. continue cogentin 0.5mg po daily. clonazepam as prn olanzapine as prn for agitation 02/04 continue tx. 02/05 continue tx. 02/06 continue current dose of risperidone. NOTE THAT pt can't take doses higher than 3 mg/day of risperidone as higher doses had severe EPS. can use olanzapine as well per court order. 02/07/25: Patient has been agitated yelling loudly exist seeking, delusional thinking her daughter/son outside at the door to pick her up. PRNs given in the morning with mild effect. Patient became agitated, aggressive\, assaultive to 1 of the staff on the floor, yelling and hitting her face so grabbing her neck. Physical was started at 16:31 to 1634. Patient was given IM medication of Zyprexa 10 and Valium 10 with good effect. Tomorrow plan: Patient will be benefit from Valium 10 mg twice a day and Zyprexa 5 mg 3 times a day is added into her scheduled medication as current plan with risperidone is not effective. Patient also having a backup for risperidone if she refused. 02/08/25: Slept most of the morning and last night. In better behavior control. No aggressive behavior. She is quiet, self dialogue, and medication compliant. Due to receive restrain medication yesterday. I did not make any medication change. But the Valium and additional Zyprexa appears to be helpful. 02/09 will try to change keppra to depakote for seizures as keppra may exacerbate psychosis. increase risperidone 1mg po daily and 2mg po qhs. may need to add second antipsychotic. 02/10 continues to present as paranoid with AH. at times declines oral medications, requiring IM back per court order. 02/11 continue tx. 02/12 continue tx. 02/13 continue tx. 02/14: no changes today. Monitor for agitation around confusion about hospitalization 02/15: no changes today, self dialogue more overt/extensive today 02/16 add olanzapine 5mg po qhs. continue risperidone. minimal improvement if any. 02/17 continue tx. 02/18 seems more somnolent with bedtime olanzapine, will continue to monitor. 02/19 cbc showed thrombocytopenia, which is new and suspect related to depakote 02/20 pt appears more sedated since addition of olanzapine at bedtime. She continues to self dialogue. minimal improvement. 02/21: Continue current management and treatment plan. 02/22: continue current management and treatment plan. 02/23 continue tx. may need to affirm HCP try different antipsychotic. 02/24 continue tx. results of LENORE 1:360, pattern homogenous A. 02/25 will try rexulti, lower risperidone. pending coordination of medical care to see if underlying autoimmune condition has anything to do with current presentation. 02/26 discussed with hospital erisa attorney to dismiss sect 8, HCP invoked and can consent to other treatment. daughter Maricruz give permission to try different antipsychotic. 02/27 decrease risperidone to 1mg po daily, start prolixin 2.5mg po qhs, then increase to BID. continue olanzapine prn for agitation. olanzapine as well per court order. 03/03 pt seen by neurology, added HIV/RPR/LYME, can't have MRI due to cochlear implant. 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 Last Neurology appointment 01/2024. Missed appointment with rheumatology 05/2024, last seen in 02/26/2024. - Pt can't have MRI due to cochlear implant. Had head CT. - continue prolixin 2.5mg po daily, 5mg po qhs. will d/c risperidone, increase prolixin 5mg po BID, back up IM. 03/05 continue tx. 03/06 This greeting card writer spoke with pt's kelly machine operator, Dr. Al obtained collateral information. Will coordinate with neurology and rheumatology once LP results are available. r/o reoccurance of pachymeningitis, lupus or other autoimmune cause for psychosis. 03/07: Continue current regimen and plans. Discontinued one-to-one and put in place 5 minute checks 03/08: Continue current plans and regimen 03/09 continue tx. 03/10: continue current mgmt. continues disorganized and psychotic. see neuro note from today. continue with neuro w/u. 03/11: given zyprexa 5 and valium [address] and head CTA. head CTA WNL, chest CT showed numerous pulmonary nodules up to 10 mm in size. no change in presentation. due to persistent requests for discharge, 3-day notice submitted on her behalf. will work toward HCP affirmation by the court. 03/12: per pulm consult, chest CT more c/w rheumatological process than CA, recommended empiric steroid course. awaiting input from neuro. consider Bx of nodules otherwise. continue current mgmt for now. 03/13: variably calm and agitated. planning for bronchoscopy with pulmonary nodule Bx on sunday. continue current mgmt. case discussed with HCP Maricruz (daughter), who is in agreement with plan. 03/14: CSF with notable findings. will f/u with neuro on sunday. stable presentation for now, remains quite psychotic. continue current mgmt. bronchoscopy sunday. 03/15: no change from yesterday in presentation or plan. 03/16: stable presentation. continues confused, wanting to go home. HCP affirmation tomorrow. continue current mgmt. 03/17: stable presdentation. bronchoscopy pending. continue current mgmt. 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 awaiting bronchoscopy. remains psychotic. continue current mgmt for now. 03/20: no change in presentation. still awaiting go-ahead for brochoscopy. continue current mgmt. 03/22: No changes. Noted above. 03/23: awaiting insurance approval for bronchoscopy. stable presentation. 03/24: as for yesterday. 03/25: loudly RIS in milieu today. bronchoscopy scheduled for sunday at 1130. NPO past MN night. stable presentation. continue current mgmt. 03/26 pt presents as more disorganized and inattentive than usual showing more signs of delirious behavior. bronchoscopy was canceled,due to shortage of needles to complete biopsy. will order cbc, cmp, ammonia levels given increase disorganized behavior and worsening attention pointing at a more delirious presentation. Review of results from LP showing negative results for meningitis panel/paraneoplastic panel (including most common antibody found in SLC which is EARL 1 which was negative), elevated protein in CSF 131 without leukocytosis, also elevated CSF/serum IgG index. elevated anti-ds dna titer 1:80. Such results may point more to a rheumatological condition than infectious condition or malignancy. Mrs. Sharif's OP kelly machine operator, Dr. Al recommends trial of prednisone 40mg po daily at least for 2 weeks. 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 03/31 increase prolixin to 5mg po BID. continue all other medications including prednisone 40mg po daily. 04/01 discussed with her OP kelly machine operator, Dr. Al possibility of transferring to [facility] for further tx of autoimmune condition, suspected also having lupus. continue prednisone. Spoke with daughter who is HCP, daughter concern about pt going to [facility] due to being dismissed several times when pt was first brought psychotic. 04/02 continue tx 04/03 increase prolixin to 5mg po TID. monitor EPS. 04/06 continue tx. 04/07- pending response from [facility] to see if they will take her for further evaluation of autoimmune condition with multidisciplinary team to continue see if psychosis related to autoimmune or primarily psychosis. Some improvement in attention, less guarded. continues to have auditory hallucinations. May consider switch to clozapine given that she has tried 3 antipsychotics with limited efficacy. 04/08 start clozapine 25mg po qhs. continue prolixin 7.5mg po TID. 04/09 increase clozapine to 50mg po qhs. continue prolixin 7.5mg po TID. 04/10 decrease prolixin to 7.5mg po BID. increase clozapine to 75mg po qhs. continue increasing clozapine by 25mg/day. credit control manager, recommends repeat CT in 2 weeks, and hold on bronchoscopy. 04/11: no change today, will titrate Clozapine further tomorrow 04/12: titrate Clozapine to 100 mg QHS 04/13 increase clozapine to 125mg po qhs. continue prolixin 7.5mg po BID. 04/14 Provided update to daughter Maricruz who is HCP in terms of pt being treated for both autoimmune condition that may be contributing to psychosis (with prednione) as well as primarily psychiatric disorder (although less likely) with clozapine. some improvement in attention, slightly less paranoid but continues to present with ongoing AH of her daughter. 04/15 continue tx. 04/16 continue tx. 04/17 start glycopyrralate for drooling, decrease cogentin. 04/17 increase clozapine 150mg po qhs, lower prolixin 2.5mg po BID. back up. 04/18: Continue current management and treatment plan. 04/19: continue current management and treatment plan. 04/20 increase clozapine to 175mg po qhs. 04/21 continue tx. 04/22 continue tx. 04/23 continue tx. will check clozapine levels. 04/[address] followed up done today- much less nodules seen. 04/27 no change in presentation, less paranoid towards staff but ongoing AH. Impaired awareness of surroundings and conversations mostly base on delusional content. Will consult as well with her OP Construction Economist as to whether continue prednisone as initially recommended by rheumatology for suspected lupus, although it has had additional benefits in lung nodules. 04/28 increase clozapine 200mg po qhs. 04/[address] showed improvement in her pulmonary nodules and absence of pulmonary symptoms otherwise. recommendation to taper off prednisone slowly with repeat of chest CT in 3 months for stability of reminder of nodules. her OP kelly machine operator did want to continue prednisone for suspected lupus, may discuss further with rheumatology if they want to continue prednisone or stop it. 04/30 continue tx. 05/01 continue tx. will check clozapine level on 05/04/2505/05 continue tx. pending clozapine levels. 05/06 continue tx. 05/07 continue tx. 05/08 continue tx. Reason for continued inpatient stay Substantial Risk for: inability to function Time Spent With Patient Time: Total time managing care of this patient today ____ minutes.
[2025-05-08 20:00] VITALS: BP 115/58; PULSE 74; RESP 18; TEMP 36.9; O2SAT 97
[2025-05-09 07:41] LABS: Neut%MD 65.8 %; WBCANC 8.6 X10*3/uL
[2025-05-09 08:05] VITALS: BP 146/63; PULSE 75; RESP 16; TEMP 36.3; O2SAT 97
[2025-05-09] MEDS: levETIRAcetam Oral Soln 500 MG/5 ML 250 MG PO ×2 (08:50→21:10)
[2025-05-09] MEDS: Tiotropium Bromide 2.5 mcg 1 PUFF/2.5 MCG MIST.INHAL INHALE (08:50)
[2025-05-09] MEDS: Fluticasone/Vilanterol 200/25 BLST.W.DEV 1 PUFF INHALE (08:50)
[2025-05-09] MEDS: NIFEdipine ER 30 MG TAB.ER.24 PO (08:52)
[2025-05-09] MEDS: Albuterol Sulfate 90 MCG 8 GM INHALER 2 PUFF INHALE (09:19)
--- NOTE | 2025-05-09 09:42 | PC.NURSE ---
Pt c/o SOB and wheezing and requested PRN Albuterol. Pt 02 96%, lung sounds clear, RR 18. Pt received PRN albuterol as requested with good effect.
--- NOTE | 2025-05-09 16:40 | HO.PSYCHPN ---
Subjective Subjective Date of Service: 05/09/25 Reason For Visit: Abnormal CT chest Interim History: Ghost patient with team. On approach patient was sleeping and based on staff's report, reporting patient remains at baseline, casualty underwriter did not see necessity disturb patient and thus allowed her to sleep. Patient remains sleeping through the night, taking medications and when awake, self dialoguing. Mental Status Exam Mental Status Exam Narrative: Appearance: casual attire, adequate grooming and hygiene Behavior: calm, keeping to self, engagement limited by vision and hearing difficulties Orientation: alert, oriented to idea that she is in the hospital, year, month not date nor situation. Psychomotor Function: no agitation or slowing; no abnormal gestures or movements Speech: mostly clear, normal rate/rhythm/volume, spontaneous Mood: Stable Affect: calm, non-labile Thought Process: more linear/organized. Thought Content: Regarding Delusional ideations Hallucinations: AH constantly talking to daughter who is not there Delusions: paranoid delusions. Insight: impairment Judgment: impairment Impulsivity: none noted Diagnostics Vital Signs (24Hr): Vital Signs - 24 hr 05/08/25 20:00 05/09/25 08:05 Temperature 98.4 F 97.3 F Pulse Rate 74 75 Respiratory Rate 18 16 Blood Pressure 115/58 L 146/63 H Pulse Oximetry 97 97 Oxygen Delivery Method Room Air Room Air BMI result Body Mass Index 31.9 Labs 03/29/25 08:55 03/29/25 08:55 Labs: Laboratory Results - last 48 hr 05/09/25 07:31 Absolute Neuts (auto) 5.6 Imaging Radiology Impressions: ITS Impressions Head CT 03/05/25 15:51 IMPRESSION: 1. No acute intracranial abnormality. 2. Right-sided cochlear nerve implant with associated streak artifact. 3. Right-sided canal wall up mastoidectomy. Electronically signed by: Levi Greer MD 03/05/2025 04:25 PM EDT RP Lumbar Puncture Fluoroscopy 03/09/25 11:50 IMPRESSION: Successful fluoroscopy-guided lumbar puncture performed without immediate complications Electronically signed by: Thompson Andujar MD 03/09/2025 04:06 PM EDT RP Chest CT 03/11/25 11:52 IMPRESSION: 1. Multiple bilateral pulmonary nodules measuring up to 10 mm in size. Further evaluation should be based on Fleischner Society guidelines below. 2. Cardiomegaly. Findings consistent with pulmonary arterial hypertension. 3. No evidence of mediastinal or hilar lymphadenopathy. Fleischner Criteria for pulmonary nodule follow-up SOLID NODULES: Low risk patient: <6mm: no follow-up 6-8mm: 6 month follow-up CT >8mm: PET/Biopsy/ 3 month follow-up CT High risk patient: <6mm: 12 month follow-up CT 6-8mm: 6 month follow-up CT >8mm: PET/Biopsy/ 3 month follow-up CT SUB-SOLID/GROUNDGLASS NODULES: All patients: > or = 6mm: 6 month follow-up CT *Please note that in patients in the following categories, the Fleischner criteria do not apply: Immunocompromised, lung cancer screening population, age below 35, and patients with known malignancy Electronically signed by: Best Clemons MD 03/11/2025 01:45 PM EDT RP Head CTA 03/11/25 11:52 IMPRESSION: Head CT: No acute intracranial abnormality. CT angiogram of the head: No vascular occlusions. Electronically signed by: Gypsy Salamanca MD 03/11/2025 03:02 PM EDT RP Chest CT 04/24/25 09:58 IMPRESSION: 1. Majority of the previously seen pulmonary nodules have resolved, and were consistent with infectious or inflammatory etiology. 2. There is a persistent 9 mm nodular focus in the lateral right upper lobe, which is felt to represent scarring given the appearance. To be cautious, a 3 month interval follow-up CT is recommended to ensure stability. 3. There is mild to moderate paraseptal emphysema. There is no acute pneumonic consolidation. 4. There is thickening of the small airways suggesting bronchitis. 5. There is moderate cardiac enlargement. Enlarged main pulmonary artery is consistent with pulmonary arterial hypertension. Electronically signed by: Levi Greer MD 04/24/2025 10:56 AM EDT RP Medications Medications Current Medications Acetaminophen (Acetaminophen 325 Mg Tablet) 650 mg PO Q6H PRN PRN Reason: Headache/Pain, Scale 1-10 Last Admin: 05/09/25 08:52 Dose: 650 mg Al Hydroxide/Mg Hydroxide (Magnesium Hydrox/Alum Hydrox 30 Ml Oral.Susp) 30 ml PO Q6H PRN PRN Reason: Heartburn/Nausea Albuterol Sulfate (Albuterol Sulfate 90 Mcg 8 Gm Inhaler) 2 puff INHALE Q4H PRN PRN Reason: Shortness Of Breath Or Wheezing Last Admin: 05/09/25 09:19 Dose: 2 puff Atorvastatin Calcium (Atorvastatin Calcium 40 Mg Tablet) 40 mg PO DAILY [facility] Last Admin: 05/09/25 08:52 Dose: 40 mg Clonazepam (Clonazepam Odt 0.5 Mg Tab.Rapdis) 0.5 mg PO BID PRN PRN Reason: severe anxiety/sleep Last Admin: 03/31/25 20:37 Dose: 0.5 mg Clozapine (Clozapine 100 Mg Tablet) 200 mg PO BEDTIME [facility] Last Admin: 05/08/25 21:16 Dose: 200 mg Fluphenazine HCl (Fluphenazine Hcl 2.5 Mg/Ml 10 Ml Vial) 2.5 mg IM BID PRN PRN Reason: give if refuses oral per HCP Last Admin: 03/05/25 09:42 Dose: 2.5 mg Fluphenazine HCl (Fluphenazine Hcl 2.5 Mg Tablet) 2.5 mg PO BID [facility] Last Admin: 05/09/25 08:52 Dose: 2.5 mg Fluticasone/Vilanterol (Fluticasone/Vilanterol 200/25 Blst.W.Dev) 1 puff INHALE RDAILY [facility] Last Admin: 05/09/25 08:50 Dose: 1 puff Glycopyrrolate (Glycopyrrolate 1 Mg Tablet) 0.5 mg PO BID [facility] Last Admin: 05/09/25 08:51 Dose: 0.5 mg Hydrochlorothiazide (Hydrochlorothiazide 25 Mg Tablet) 25 mg PO DAILY [facility] Last Admin: 05/09/25 08:51 Dose: 25 mg Levetiracetam (Levetiracetam Oral Soln 500 Mg/5 Ml) 250 mg PO BID [facility] Last Admin: 05/09/25 08:50 Dose: 250 mg Magnesium Hydroxide (Milk Of Magnesia 30 Ml Oral.Susp) 30 ml PO DAILY PRN PRN Reason: Constipation Methimazole (Methimazole 5 Mg Tablet) 5 mg PO DAILY [facility] Last Admin: 05/09/25 08:52 Dose: 5 mg Naloxone HCl (Naloxone Hcl 0.4 Mg/Ml Vial) 0.04 mg IVPUSH Q5M PRN PRN Reason: Excessive sedation or RR < 8 Nifedipine (Nifedipine Er 30 Mg Tab.Er.24) 30 mg PO DAILY [facility]; Protocol Last Admin: 05/09/25 08:52 Dose: 30 mg Olanzapine (Olanzapine 10 Mg Tablet) 10 mg PO Q6H PRN PRN Reason: severe agitation Last Admin: 04/16/25 16:28 Dose: 10 mg Prednisone (Prednisone 20 Mg Tablet) 40 mg PO DAILY [facility] Last Admin: 05/09/25 08:51 Dose: 40 mg Tiotropium [place] (Tiotropium [place] 2.5 Mcg 1 Puff/2.5 Mcg Mist.Inhal) 1 puff INHALE RDAILY [facility] Last Admin: 05/09/25 08:50 Dose: 1 puff Trazodone HCl (Trazodone Hcl 50 Mg Tablet) 50 mg PO BEDTIME MRX1 PRN PRN Reason: Insomnia Last Admin: 04/04/25 23:21 Dose: 50 mg Allergies Allergies Allergy/AdvReac Type Severity Reaction Status Date / Time latex Allergy Unknown Verified 03/09/25 11:50 peanut Allergy Unknown Verified 03/09/25 11:50 Penicillins Allergy Unknown Verified 03/09/25 11:50 Assessment & Plan Assessment & Plan (1) Psychosis: Status: Acute Code(s): F29 - Unspecified psychosis not due to a substance or known physiological condition Assessment and Plan: r/o autoimmune reasons for psychosis including lupus. 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 Sharif is a 69 year-old woman who presents with a 3 month hx of new onset of psychosis (AH) and combination of paranoid delusions and cap gras delusions. No prior psychiatric hx. She does have of cocaine use but apparently had not used in some years. Daughter suspects she may have relapsed but no ongoing use. Pt presents with more complex theme of delusions. No additional medical work up available including head CT. CBC and cmp unremarkable. 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 It may be related to dementia process but complexity of delusions and psychosis not the common presentation for dementia that have psychosis early on such as in vascular dementia or LBD. Pt presents as gravely disable to able to care for self due to symptoms of psychosis and delusions. 02/03 increase night time risperidone 2mg po qhs increase cogetin at bedtime to 1mg po qhs. lower daily dose to 0.5mg po daily. continue cogentin 0.5mg po daily. clonazepam as prn olanzapine as prn for agitation 02/04 continue tx. 02/05 continue tx. 02/06 continue current dose of risperidone. NOTE THAT pt can't take doses higher than 3 mg/day of risperidone as higher doses had severe EPS. can use olanzapine as well per court order. 02/07/25: Patient has been agitated yelling loudly exist seeking, delusional thinking her daughter/son outside at the door to pick her up. PRNs given in the morning with mild effect. Patient became agitated, aggressive\, assaultive to 1 of the staff on the floor, yelling and hitting her face so grabbing her neck. Physical was started at 16:31 to 1634. Patient was given IM medication of Zyprexa 10 and Valium 10 with good effect. Tomorrow plan: Patient will be benefit from Valium 10 mg twice a day and Zyprexa 5 mg 3 times a day is added into her scheduled medication as current plan with risperidone is not effective. Patient also having a backup for risperidone if she refused. 02/08/25: Slept most of the morning and last night. In better behavior control. No aggressive behavior. She is quiet, self dialogue, and medication compliant. Due to receive restrain medication yesterday. I did not make any medication change. But the Valium and additional Zyprexa appears to be helpful. 02/09 will try to change keppra to depakote for seizures as keppra may exacerbate psychosis. increase risperidone 1mg po daily and 2mg po qhs. may need to add second antipsychotic. 02/10 continues to present as paranoid with AH. at times declines oral medications, requiring IM back per court order. 02/11 continue tx. 02/12 continue tx. 02/13 continue tx. 02/14: no changes today. Monitor for agitation around confusion about hospitalization 7/20: no changes today, self dialogue more overt/extensive today 02/16 add olanzapine 5mg po qhs. continue risperidone. minimal improvement if any. 02/17 continue tx. 02/18 seems more somnolent with bedtime olanzapine, will continue to monitor. 02/19 cbc showed thrombocytopenia, which is new and suspect related to depakote 02/20 pt appears more sedated since addition of olanzapine at bedtime. She continues to self dialogue. minimal improvement. 02/21: Continue current management and treatment plan. 02/22: continue current management and treatment plan. 02/23 continue tx. may need to affirm HCP try different antipsychotic. 02/24 continue tx. results of L[place]ORE 1:360, pattern homogenous A. 02/25 will try rexulti, lower risperidone. pending coordination of medical care to see if underlying autoimmune condition has anything to do with current presentation. 02/26 discussed with hospital trial attorney to dismiss sect 8, HCP invoked and can consent to other treatment. daughter Maricruz give permission to try different antipsychotic. 02/27 decrease risperidone to 1mg po daily, start prolixin 2.5mg po qhs, then increase to BID. continue olanzapine prn for agitation. olanzapine as well per court order. 03/03 pt seen by neurology, added HIV/RPR/LYME, can't have MRI due to cochlear implant. 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 Last Neurology appointment 01/2024. Missed appointment with rheumatology 05/2024, last seen in 02/26/2024. - Pt can't have MRI due to cochlear implant. Had head CT. - continue prolixin 2.5mg po daily, 5mg po qhs. will d/c risperidone, increase prolixin 5mg po BID, back up IM. 03/05 continue tx. 03/06 This casualty underwriter spoke with pt's radioactive waste disposal dispatcher, Dr. Al obtained collateral information. Will coordinate with neurology and rheumatology once LP results are available. r/o reoccurance of pachymeningitis, lupus or other autoimmune cause for psychosis. 03/07: Continue current regimen and plans. Discontinued one-to-one and put in place 5 minute checks 03/08: Continue current plans and regimen 03/09 continue tx. 03/10: continue current mgmt. continues disorganized and psychotic. see neuro note from today. continue with neuro w/u. 03/11: given zyprexa 5 and valium [address] and head CTA. head CTA WNL, chest CT showed numerous pulmonary nodules up to 10 mm in size. no change in presentation. due to persistent requests for discharge, 3-day notice submitted on her behalf. will work toward HCP affirmation by the court. 03/12: per pulm consult, chest CT more c/w rheumatological process than CA, recommended empiric steroid course. awaiting input from neuro. consider Bx of nodules otherwise. continue current mgmt for now. 03/13: variably calm and agitated. planning for bronchoscopy with pulmonary nodule Bx on sunday. continue current mgmt. case discussed with HCP Maricruz (daughter), who is in agreement with plan. 03/14: CSF with notable findings. will f/u with neuro on sunday. stable presentation for now, remains quite psychotic. continue current mgmt. bronchoscopy sunday. 03/15: no change from yesterday in presentation or plan. 03/16: stable presentation. continues confused, wanting to go home. HCP affirmation tomorrow. continue current mgmt. 03/17: stable presdentation. bronchoscopy pending. continue current mgmt. 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 awaiting bronchoscopy. remains psychotic. continue current mgmt for now. 03/20: no change in presentation. still awaiting go-ahead for brochoscopy. continue current mgmt. 03/22: No changes. Noted above. 03/23: awaiting insurance approval for bronchoscopy. stable presentation. 03/24: as for yesterday. 03/25: loudly RIS in milieu today. bronchoscopy scheduled for suzanne at 1130. NPO past MN night. stable presentation. continue current mgmt. 03/26 pt presents as more disorganized and inattentive than usual showing more signs of delirious behavior. bronchoscopy was canceled,due to shortage of needles to complete biopsy. will order cbc, cmp, ammonia levels given increase disorganized behavior and worsening attention pointing at a more delirious presentation. Review of results from LP showing negative results for meningitis panel/paraneoplastic panel (including most common antibody found in SLC which is EARL 1 which was negative), elevated protein in CSF 131 without leukocytosis, also elevated CSF/serum IgG index. elevated anti-ds dna titer 1:80. Such results may point more to a rheumatological condition than infectious condition or malignancy. Mrs. Sharif's OP radioactive waste disposal dispatcher, Dr. Al recommends trial of prednisone 40mg po daily at least for 2 weeks. 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 03/31 increase prolixin to 5mg po BID. continue all other medications including prednisone 40mg po daily. 04/01 discussed with her OP radioactive waste disposal dispatcher, Dr. Al possibility of transferring to [facility] for further tx of autoimmune condition, suspected also having lupus. continue prednisone. Spoke with daughter who is HCP, daughter concern about pt going to [facility] due to being dismissed several times when pt was first brought psychotic. 04/02 continue tx 04/03 increase prolixin to 5mg po TID. monitor EPS. 04/06 continue tx. 04/07- pending response from [facility] to see if they will take her for further evaluation of autoimmune condition with multidisciplinary team to continue see if psychosis related to autoimmune or primarily psychosis. Some improvement in attention, less guarded. continues to have auditory hallucinations. May consider switch to clozapine given that she has tried 3 antipsychotics with limited efficacy. 04/08 start clozapine 25mg po qhs. continue prolixin 7.5mg po TID. 04/09 increase clozapine to 50mg po qhs. continue prolixin 7.5mg po TID. 04/10 decrease prolixin to 7.5mg po BID. increase clozapine to 75mg po qhs. continue increasing clozapine by 25mg/day. chief construction inspector, recommends repeat CT in 2 weeks, and hold on bronchoscopy. 04/11: no change today, will titrate Clozapine further tomorrow 04/12: titrate Clozapine to 100 mg QHS 04/13 increase clozapine to 125mg po qhs. continue prolixin 7.5mg po BID. 04/14 Provided update to daughter Maricruz who is HCP in terms of pt being treated for both autoimmune condition that may be contributing to psychosis (with prednione) as well as primarily psychiatric disorder (although less likely) with clozapine. some improvement in attention, slightly less paranoid but continues to present with ongoing AH of her daughter. 04/15 continue tx. 04/16 continue tx. 04/17 start glycopyrralate for drooling, decrease cogentin. 04/17 increase clozapine 150mg po qhs, lower prolixin 2.5mg po BID. back up. 04/18: Continue current management and treatment plan. 04/19: continue current management and treatment plan. 04/20 increase clozapine to 175mg po qhs. 04/21 continue tx. 04/22 continue tx. 04/23 continue tx. will check clozapine levels. 04/[address] followed up done today- much less nodules seen. 04/27 no change in presentation, less paranoid towards staff but ongoing AH. Impaired awareness of surroundings and conversations mostly base on delusional content. Will consult as well with her OP Handle Finisher as to whether continue prednisone as initially recommended by rheumatology for suspected lupus, although it has had additional benefits in lung nodules. 04/28 increase clozapine 200mg po qhs. 04/[address] showed improvement in her pulmonary nodules and absence of pulmonary symptoms otherwise. recommendation to taper off prednisone slowly with repeat of chest CT in 3 months for stability of reminder of nodules. her OP radioactive waste disposal dispatcher did want to continue prednisone for suspected lupus, may discuss further with rheumatology if they want to continue prednisone or stop it. 04/30 continue tx. 05/01 continue tx. will check clozapine level on 05/04/2505/05 continue tx. pending clozapine levels. 05/06 continue tx. 05/07 continue tx. 05/08 continue tx. 05/09 same presentation; continue treatment plan Reason for continued inpatient stay Substantial Risk for: inability to function Time Spent With Patient Time: Total time managing care of this patient today ____ minutes.
[2025-05-09 20:00] VITALS: BP 120/58; PULSE 68; RESP 16; TEMP 36.8; O2SAT 98
[2025-05-10] MEDS: clonazePAM ODT 0.5 MG TAB.RAPDIS PO (05:31)
[2025-05-10 08:00] VITALS: BP 139/71; PULSE 66; RESP 16; TEMP 36.3; O2SAT 98
[2025-05-10] MEDS: levETIRAcetam Oral Soln 500 MG/5 ML 250 MG PO ×2 (08:28→19:35)
[2025-05-10] MEDS: Tiotropium Bromide 2.5 mcg 1 PUFF/2.5 MCG MIST.INHAL INHALE (08:29)
[2025-05-10] MEDS: NIFEdipine ER 30 MG TAB.ER.24 PO (08:29)
[2025-05-10] MEDS: Fluticasone/Vilanterol 200/25 BLST.W.DEV 1 PUFF INHALE (08:29)
[2025-05-10 19:33] VITALS: BP 107/58; PULSE 78; RESP 16; TEMP 37; O2SAT 94
--- NOTE | 2025-05-10 22:21 | P.PNPSI_ITS ---
Subjective Subjective Date of Service: 05/10/25 Reason For Visit: Abnormal CT chest Interim History: Met with patient; discussed with team Patient lying in bed, awake, looks to consumer loan underwriter on approach makes a sound but does not engage. Staff report patient remains at baseline, talking on her play telephone; no issues or concerns Mental Status Exam Mental Status Exam Narrative: Appearance: casual attire, adequate grooming and hygiene Behavior: calm, keeping to self, engagement limited by vision and hearing difficulties Orientation: alert, oriented to idea that she is in the hospital, year, month not date nor situation. Psychomotor Function: no agitation or slowing; no abnormal gestures or movements Speech: mostly clear, normal rate/rhythm/volume, spontaneous Mood: Stable Affect: calm, non-labile Thought Process: more linear/organized. Thought Content: Regarding Delusional ideations Hallucinations: AH constantly talking to daughter who is not there Delusions: paranoid delusions. Insight: impairment Judgment: impairment Impulsivity: none noted Diagnostics Vital Signs (24Hr): Vital Signs - 24 hr 05/10/25 08:00 05/10/25 19:33 Temperature 97.3 F 98.6 F Pulse Rate 66 78 Respiratory Rate 16 16 Blood Pressure 139/71 107/58 L Pulse Oximetry 98 94 Oxygen Delivery Method Room Air Room Air BMI result Body Mass Index 31.9 Labs 03/29/25 08:55 03/29/25 08:55 Labs: Laboratory Results - last 48 hr 05/09/25 07:31 Absolute Neuts (auto) 5.6 Imaging Radiology Impressions: ITS Impressions Head CT 03/05/25 15:51 IMPRESSION: 1. No acute intracranial abnormality. 2. Right-sided cochlear nerve implant with associated streak artifact. 3. Right-sided canal wall up mastoidectomy. Electronically signed by: Levi Greer MD 03/05/2025 04:25 PM EDT RP Lumbar Puncture Fluoroscopy 03/09/25 11:50 IMPRESSION: Successful fluoroscopy-guided lumbar puncture performed without immediate complications Electronically signed by: Thompson Andujar MD 03/09/2025 04:06 PM EDT RP Chest CT 03/11/25 11:52 IMPRESSION: 1. Multiple bilateral pulmonary nodules measuring up to 10 mm in size. Further evaluation should be based on Fleischner Society guidelines below. 2. Cardiomegaly. Findings consistent with pulmonary arterial hypertension. 3. No evidence of mediastinal or hilar lymphadenopathy. Fleischner Criteria for pulmonary nodule follow-up SOLID NODULES: Low risk patient: <6mm: no follow-up 6-8mm: 6 month follow-up CT >8mm: PET/Biopsy/ 3 month follow-up CT High risk patient: <6mm: 12 month follow-up CT 6-8mm: 6 month follow-up CT >8mm: PET/Biopsy/ 3 month follow-up CT SUB-SOLID/GROUNDGLASS NODULES: All patients: > or = 6mm: 6 month follow-up CT *Please note that in patients in the following categories, the Fleischner criteria do not apply: Immunocompromised, lung cancer screening population, age below 35, and patients with known malignancy Electronically signed by: eBst Clemons MD 03/11/2025 01:45 PM EDT RP Head CTA 03/11/25 11:52 IMPRESSION: Head CT: No acute intracranial abnormality. CT angiogram of the head: No vascular occlusions. Electronically signed by: Gypsy Salamanca MD 03/11/2025 03:02 PM EDT RP Chest CT 04/24/25 09:58 IMPRESSION: 1. Majority of the previously seen pulmonary nodules have resolved, and were consistent with infectious or inflammatory etiology. 2. There is a persistent 9 mm nodular focus in the lateral right upper lobe, which is felt to represent scarring given the appearance. To be cautious, a 3 month interval follow-up CT is recommended to ensure stability. 3. There is mild to moderate paraseptal emphysema. There is no acute pneumonic consolidation. 4. There is thickening of the small airways suggesting bronchitis. 5. There is moderate cardiac enlargement. Enlarged main pulmonary artery is consistent with pulmonary arterial hypertension. Electronically signed by: Levi Greer MD 04/24/2025 10:56 AM EDT RP Medications Medications Current Medications Acetaminophen (Acetaminophen 325 Mg Tablet) 650 mg PO Q6H PRN PRN Reason: Headache/Pain, Scale 1-10 Last Admin: 05/09/25 08:52 Dose: 650 mg Al Hydroxide/Mg Hydroxide (Magnesium Hydrox/Alum Hydrox 30 Ml Oral.Susp) 30 ml PO Q6H PRN PRN Reason: Heartburn/Nausea Albuterol Sulfate (Albuterol Sulfate 90 Mcg 8 Gm Inhaler) 2 puff INHALE Q4H PRN PRN Reason: Shortness Of Breath Or Wheezing Last Admin: 05/09/25 09:19 Dose: 2 puff Atorvastatin Calcium (Atorvastatin Calcium 40 Mg Tablet) 40 mg PO DAILY [facility] Last Admin: 05/10/25 08:29 Dose: 40 mg Clonazepam (Clonazepam Odt 0.5 Mg Tab.Rapdis) 0.5 mg PO BID PRN PRN Reason: severe anxiety/sleep Last Admin: 05/10/25 05:31 Dose: 0.5 mg Clozapine (Clozapine 100 Mg Tablet) 200 mg PO BEDTIME [facility] Last Admin: 05/10/25 19:35 Dose: 200 mg Fluphenazine HCl (Fluphenazine Hcl 2.5 Mg/Ml 10 Ml Vial) 2.5 mg IM BID PRN PRN Reason: give if refuses oral per HCP Last Admin: 03/05/25 09:42 Dose: 2.5 mg Fluphenazine HCl (Fluphenazine Hcl 2.5 Mg Tablet) 2.5 mg PO BID [facility] Last Admin: 05/10/25 19:36 Dose: 2.5 mg Fluticasone/Vilanterol (Fluticasone/Vilanterol 200/25 Blst.W.Dev) 1 puff INHALE RDAILY [facility] Last Admin: 05/10/25 08:29 Dose: 1 puff Glycopyrrolate (Glycopyrrolate 1 Mg Tablet) 0.5 mg PO BID [facility] Last Admin: 05/10/25 19:36 Dose: 0.5 mg Hydrochlorothiazide (Hydrochlorothiazide 25 Mg Tablet) 25 mg PO DAILY [facility] Last Admin: 05/10/25 08:28 Dose: 25 mg Levetiracetam (Levetiracetam Oral Soln 500 Mg/5 Ml) 250 mg PO BID [facility] Last Admin: 05/10/25 19:35 Dose: 250 mg Magnesium Hydroxide (Milk Of Magnesia 30 Ml Oral.Susp) 30 ml PO DAILY PRN PRN Reason: Constipation Methimazole (Methimazole 5 Mg Tablet) 5 mg PO DAILY [facility] Last Admin: 05/10/25 08:29 Dose: 5 mg Naloxone HCl (Naloxone Hcl 0.4 Mg/Ml Vial) 0.04 mg IVPUSH Q5M PRN PRN Reason: Excessive sedation or RR < 8 Nifedipine (Nifedipine Er 30 Mg Tab.Er.24) 30 mg PO DAILY [facility]; Protocol Last Admin: 05/10/25 08:29 Dose: 30 mg Olanzapine (Olanzapine 10 Mg Tablet) 10 mg PO Q6H PRN PRN Reason: severe agitation Last Admin: 04/16/25 16:28 Dose: 10 mg Prednisone (Prednisone 20 Mg Tablet) 40 mg PO DAILY [facility] Last Admin: 05/10/25 08:29 Dose: 40 mg Tiotropium Elton (Tiotropium Elton 2.5 Mcg 1 Puff/2.5 Mcg Mist.Inhal) 1 puff INHALE RDAILY [facility] Last Admin: 05/10/25 08:29 Dose: 1 puff Trazodone HCl (Trazodone Hcl 50 Mg Tablet) 50 mg PO BEDTIME MRX1 PRN PRN Reason: Insomnia Last Admin: 04/04/25 23:21 Dose: 50 mg Allergies Allergies Allergy/AdvReac Type Severity Reaction Status Date / Time latex Allergy Unknown Verified 03/09/25 11:50 peanut Allergy Unknown Verified 03/09/25 11:50 Penicillins Allergy Unknown Verified 03/09/25 11:50 Assessment & Plan Assessment & Plan (1) Psychosis: Status: Acute Code(s): F29 - Unspecified psychosis not due to a substance or known physiological condition Assessment and Plan: r/o autoimmune reasons for psychosis including lupus. 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 Sharif is a 69 year-old woman who presents with a 3 month hx of new onset of psychosis (AH) and combination of paranoid delusions and cap gras delusions. No prior psychiatric hx. She does have of cocaine use but apparently had not used in some years. Daughter suspects she may have relapsed but no ongoing use. Pt presents with more complex theme of delusions. No additional medical work up available including head CT. CBC and cmp unremarkable. 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 It may be related to dementia process but complexity of delusions and psychosis not the common presentation for dementia that have psychosis early on such as in vascular dementia or LBD. Pt presents as gravely disable to able to care for self due to symptoms of psychosis and delusions. 02/03 increase night time risperidone 2mg po qhs increase cogetin at bedtime to 1mg po qhs. lower daily dose to 0.5mg po daily. continue cogentin 0.5mg po daily. clonazepam as prn olanzapine as prn for agitation 02/04 continue tx. 02/05 continue tx. 02/06 continue current dose of risperidone. NOTE THAT pt can't take doses higher than 3 mg/day of risperidone as higher doses had severe EPS. can use olanzapine as well per court order. 02/07/25: Patient has been agitated yelling loudly exist seeking, delusional thinking her daughter/son outside at the door to pick her up. PRNs given in the morning with mild effect. Patient became agitated, aggressive\, assaultive to 1 of the staff on the floor, yelling and hitting her face so grabbing her neck. Physical was started at 16:31 to 1634. Patient was given IM medication of Zyprexa 10 and Valium 10 with good effect. Tomorrow plan: Patient will be benefit from Valium 10 mg twice a day and Zyprexa 5 mg 3 times a day is added into her scheduled medication as current plan with risperidone is not effective. Patient also having a backup for risperidone if she refused. 02/08/25: Slept most of the morning and last night. In better behavior control. No aggressive behavior. She is quiet, self dialogue, and medication compliant. Due to receive restrain medication yesterday. I did not make any medication change. But the Valium and additional Zyprexa appears to be helpful. 02/09 will try to change keppra to depakote for seizures as keppra may exacerbate psychosis. increase risperidone 1mg po daily and 2mg po qhs. may need to add second antipsychotic. 02/10 continues to present as paranoid with AH. at times declines oral medications, requiring IM back per court order. 02/11 continue tx. 02/12 continue tx. 02/13 continue tx. 02/14: no changes today. Monitor for agitation around confusion about hospitalization 02/15: no changes today, self dialogue more overt/extensive today 02/16 add olanzapine 5mg po qhs. continue risperidone. minimal improvement if any. 02/17 continue tx. 02/18 seems more somnolent with bedtime olanzapine, will continue to monitor. 02/19 cbc showed thrombocytopenia, which is new and suspect related to depakote 02/20 pt appears more sedated since addition of olanzapine at bedtime. She continues to self dialogue. minimal improvement. 02/21: Continue current management and treatment plan. 02/22: continue current management and treatment plan. 02/23 continue tx. may need to affirm HCP try different antipsychotic. 02/24 continue tx. results of LENORE 1:360, pattern homogenous A. 02/25 will try rexulti, lower risperidone. pending coordination of medical care to see if underlying autoimmune condition has anything to do with current presentation. 02/26 discussed with hospital senior trial attorney to dismiss sect 8, HCP invoked and can consent to other treatment. daughter Maricrzu give permission to try different antipsychotic. 02/27 decrease risperidone to 1mg po daily, start prolixin 2.5mg po qhs, then increase to BID. continue olanzapine prn for agitation. olanzapine as well per court order. 03/03 pt seen by neurology, added HIV/RPR/LYME, can't have MRI due to cochlear implant. 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 Last Neurology appointment 01/2024. Missed appointment with rheumatology 05/2024, last seen in 02/26/2024. - Pt can't have MRI due to cochlear implant. Had head CT. - continue prolixin 2.5mg po daily, 5mg po qhs. will d/c risperidone, increase prolixin 5mg po BID, back up IM. 03/05 continue tx. 03/06 This consumer loan underwriter spoke with pt's bee tender, Dr. Al obtained collateral information. Will coordinate with neurology and rheumatology once LP results are available. r/o reoccurance of pachymeningitis, lupus or other autoimmune cause for psychosis. 03/07: Continue current regimen and plans. Discontinued one-to-one and put in place 5 minute checks 03/08: Continue current plans and regimen 03/09 continue tx. 03/10: continue current mgmt. continues disorganized and psychotic. see neuro note from today. continue with neuro w/u. 03/11: given zyprexa 5 and valium [address] and head CTA. head CTA WNL, chest CT showed numerous pulmonary nodules up to 10 mm in size. no change in presentation. due to persistent requests for discharge, 3-day notice submitted on her behalf. will work toward HCP affirmation by the court. 03/12: per pulm consult, chest CT more c/w rheumatological process than CA, recommended empiric steroid course. awaiting input from neuro. consider Bx of nodules otherwise. continue current mgmt for now. 03/13: variably calm and agitated. planning for bronchoscopy with pulmonary nodule Bx on sunday. continue current mgmt. case discussed with HCP Maricruz (daughter), who is in agreement with plan. 03/14: CSF with notable findings. will f/u with neuro on sunday. stable presentation for now, remains quite psychotic. continue current mgmt. bronchoscopy sunday. 03/15: no change from yesterday in presentation or plan. 03/16: stable presentation. continues confused, wanting to go home. HCP affirmation tomorrow. continue current mgmt. 03/17: stable presdentation. bronchoscopy pending. continue current mgmt. 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 awaiting bronchoscopy. remains psychotic. continue current mgmt for now. 03/20: no change in presentation. still awaiting go-ahead for brochoscopy. continue current mgmt. 03/22: No changes. Noted above. 03/23: awaiting insurance approval for bronchoscopy. stable presentation. 03/24: as for yesterday. 03/25: loudly RIS in milieu today. bronchoscopy scheduled for sunday at 1130. NPO past MN night. stable presentation. continue current mgmt. 03/26 pt presents as more disorganized and inattentive than usual showing more signs of delirious behavior. bronchoscopy was canceled,due to shortage of needles to complete biopsy. will order cbc, cmp, ammonia levels given increase disorganized behavior and worsening attention pointing at a more delirious presentation. * Review of results from LP showing negative results for meningitis panel/paraneoplastic panel (including most common antibody found in SLC which is EARL 1 which was negative), elevated protein in CSF 131 without leukocytosis, also elevated CSF/serum IgG index. elevated anti-ds dna titer 1:80. Such results may point more to a rheumatological condition than infectious condition or malignancy. Mrs. Sharif's OP bee tender, Dr. Al recommends trial of prednisone 40mg po daily at least for 2 weeks. 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 03/31 increase prolixin to 5mg po BID. continue all other medications including prednisone 40mg po daily. 04/01 discussed with her OP bee tender, Dr. Al possibility of transferring to [facility] for further tx of autoimmune condition, suspected also having lupus. continue prednisone. Spoke with daughter who is HCP, daughter concern about pt going to [facility] due to being dismissed several times when pt was first brought psychotic. 04/02 continue tx 04/03 increase prolixin to 5mg po TID. monitor EPS. 04/06 continue tx. 04/07- pending response from [facility] to see if they will take her for further evaluation of autoimmune condition with multidisciplinary team to continue see if psychosis related to autoimmune or primarily psychosis. Some improvement in attention, less guarded. continues to have auditory hallucinations. May consider switch to clozapine given that she has tried 3 antipsychotics with limited efficacy. 04/08 start clozapine 25mg po qhs. continue prolixin 7.5mg po TID. 04/09 increase clozapine to 50mg po qhs. continue prolixin 7.5mg po TID. 04/10 decrease prolixin to 7.5mg po BID. increase clozapine to 75mg po qhs. continue increasing clozapine by 25mg/day. desolderer, recommends repeat CT in 2 weeks, and hold on bronchoscopy. 04/11: no change today, will titrate Clozapine further tomorrow 04/12: titrate Clozapine to 100 mg QHS 04/13 increase clozapine to 125mg po qhs. continue prolixin 7.5mg po BID. 04/14 Provided update to daughter Maricruz who is HCP in terms of pt being treated for both autoimmune condition that may be contributing to psychosis (with prednione) as well as primarily psychiatric disorder (although less likely) with clozapine. some improvement in attention, slightly less paranoid but continues to present with ongoing AH of her daughter. 04/15 continue tx. 04/16 continue tx. 04/17 start glycopyrralate for drooling, decrease cogentin. 04/17 increase clozapine 150mg po qhs, lower prolixin 2.5mg po BID. back up. 04/18: Continue current management and treatment plan. 04/19: continue current management and treatment plan. 04/20 increase clozapine to 175mg po qhs. 04/21 continue tx. 04/22 continue tx. 04/23 continue tx. will check clozapine levels. 04/[address] followed up done today- much less nodules seen. 04/27 no change in presentation, less paranoid towards staff but ongoing AH. Impaired awareness of surroundings and conversations mostly base on delusional content. Will consult as well with her OP Kiln Car Unloader as to whether continue prednisone as initially recommended by rheumatology for suspected lupus, although it has had additional benefits in lung nodules. 04/28 increase clozapine 200mg po qhs. 04/[address] showed improvement in her pulmonary nodules and absence of pulmonary symptoms otherwise. recommendation to taper off prednisone slowly with repeat of chest CT in 3 months for stability of reminder of nodules. her OP bee tender did want to continue prednisone for suspected lupus, may discuss further with rheumatology if they want to continue prednisone or stop it. 04/30 continue tx. 05/01 continue tx. will check clozapine level on 05/04/2505/05 continue tx. pending clozapine levels. 05/06 continue tx. 05/07 continue tx. 05/08 continue tx. Reason for continued inpatient stay Substantial Risk for: inability to function Time Spent With Patient Time: Total time managing care of this patient today ____ minutes.
[2025-05-11 09:54] VITALS: BP 132/61; PULSE 64; RESP 18; TEMP 36.3; O2SAT 93
[2025-05-11] MEDS: Albuterol Sulfate 90 MCG 8 GM INHALER 2 PUFF INHALE (09:57)
[2025-05-11] MEDS: Tiotropium Bromide 2.5 mcg 1 PUFF/2.5 MCG MIST.INHAL INHALE (09:58)
[2025-05-11] MEDS: levETIRAcetam Oral Soln 500 MG/5 ML 250 MG PO ×2 (10:00→20:43)
[2025-05-11] MEDS: Fluticasone/Vilanterol 200/25 BLST.W.DEV 1 PUFF INHALE (10:00)
[2025-05-11] MEDS: NIFEdipine ER 30 MG TAB.ER.24 PO (10:03)
[2025-05-11 20:00] VITALS: BP 116/56; PULSE 69; RESP 16; TEMP 36.6; O2SAT 96
--- NOTE | 2025-05-11 22:36 | HO.PSYCHPN ---
Subjective Subjective Date of Service: 05/11/25 Reason For Visit: Abnormal CT chest Interim History: met with patient; discussed with team sitting, keeping to self; no change in presentation Mental Status Exam Mental Status Exam Narrative: Appearance: casual attire, adequate grooming and hygiene Behavior: calm, keeping to self, engagement limited by vision and hearing difficulties Orientation: alert, oriented to idea that she is in the hospital, year, month not date nor situation. Psychomotor Function: no agitation or slowing; no abnormal gestures or movements Speech: normal rate/rhythm/volume, spontaneous Mood: stable Affect: calm, non-labile Thought Process: disorganized. Thought Content:disorganized Hallucinations: AH constantly talking to daughter who is not there baseline but not at the time of assessment Delusions: not expressed Insight: impairment Judgment: impairment Impulsivity: none noted Diagnostics Vital Signs (24Hr): Vital Signs - 24 hr 05/11/25 09:54 05/11/25 20:00 Temperature 97.3 F 98 F Pulse Rate 64 69 Respiratory Rate 18 16 Blood Pressure 132/61 116/56 L Pulse Oximetry 93 96 Oxygen Delivery Method Room Air Room Air BMI result Body Mass Index 31.9 Labs 03/29/25 08:55 03/29/25 08:55 Imaging Radiology Impressions: ITS Impressions Head CT 03/05/25 15:51 IMPRESSION: 1. No acute intracranial abnormality. 2. Right-sided cochlear nerve implant with associated streak artifact. 3. Right-sided canal wall up mastoidectomy. Electronically signed by: Levi Greer MD 03/05/2025 04:25 PM EDT RP Lumbar Puncture Fluoroscopy 03/09/25 11:50 IMPRESSION: Successful fluoroscopy-guided lumbar puncture performed without immediate complications Electronically signed by: Thompson Andujar MD 03/09/2025 04:06 PM EDT RP Chest CT 03/11/25 11:52 IMPRESSION: 1. Multiple bilateral pulmonary nodules measuring up to 10 mm in size. Further evaluation should be based on Fleischner Society guidelines below. 2. Cardiomegaly. Findings consistent with pulmonary arterial hypertension. 3. No evidence of mediastinal or hilar lymphadenopathy. Fleischner Criteria for pulmonary nodule follow-up SOLID NODULES: Low risk patient: <6mm: no follow-up 6-8mm: 6 month follow-up CT >8mm: PET/Biopsy/ 3 month follow-up CT High risk patient: <6mm: 12 month follow-up CT 6-8mm: 6 month follow-up CT >8mm: PET/Biopsy/ 3 month follow-up CT SUB-SOLID/GROUNDGLASS NODULES: All patients: > or = 6mm: 6 month follow-up CT *Please note that in patients in the following categories, the Fleischner criteria do not apply: Immunocompromised, lung cancer screening population, age below 35, and patients with known malignancy Electronically signed by: Best Clemons MD 03/11/2025 01:45 PM EDT RP Head CTA 03/11/25 11:52 IMPRESSION: Head CT: No acute intracranial abnormality. CT angiogram of the head: No vascular occlusions. Electronically signed by: Gypsy Salamanca MD 03/11/2025 03:02 PM EDT RP Chest CT 04/24/25 09:58 IMPRESSION: 1. Majority of the previously seen pulmonary nodules have resolved, and were consistent with infectious or inflammatory etiology. 2. There is a persistent 9 mm nodular focus in the lateral right upper lobe, which is felt to represent scarring given the appearance. To be cautious, a 3 month interval follow-up CT is recommended to ensure stability. 3. There is mild to moderate paraseptal emphysema. There is no acute pneumonic consolidation. 4. There is thickening of the small airways suggesting bronchitis. 5. There is moderate cardiac enlargement. Enlarged main pulmonary artery is consistent with pulmonary arterial hypertension. Electronically signed by: Levi Greer MD 04/24/2025 10:56 AM EDT Medications Medications Current Medications Acetaminophen (Acetaminophen 325 Mg Tablet) 650 mg PO Q6H PRN PRN Reason: Headache/Pain, Scale 1-10 Last Admin: 05/09/25 08:52 Dose: 650 mg Al Hydroxide/Mg Hydroxide (Magnesium Hydrox/Alum Hydrox 30 Ml Oral.Susp) 30 ml PO Q6H PRN PRN Reason: Heartburn/Nausea Albuterol Sulfate (Albuterol Sulfate 90 Mcg 8 Gm Inhaler) 2 puff INHALE Q4H PRN PRN Reason: Shortness Of Breath Or Wheezing Last Admin: 05/11/25 09:57 Dose: 2 puff Atorvastatin Calcium (Atorvastatin Calcium 40 Mg Tablet) 40 mg PO DAILY [facility] Last Admin: 05/11/25 10:04 Dose: 40 mg Clonazepam (Clonazepam Odt 0.5 Mg Tab.Rapdis) 0.5 mg PO BID PRN PRN Reason: severe anxiety/sleep Last Admin: 05/10/25 05:31 Dose: 0.5 mg Clozapine (Clozapine 100 Mg Tablet) 200 mg PO BEDTIME [facility] Last Admin: 05/11/25 20:44 Dose: 200 mg Fluphenazine HCl (Fluphenazine Hcl 2.5 Mg/Ml 10 Ml Vial) 2.5 mg IM BID PRN PRN Reason: give if refuses oral per HCP Last Admin: 03/05/25 09:42 Dose: 2.5 mg Fluphenazine HCl (Fluphenazine Hcl 2.5 Mg Tablet) 2.5 mg PO BID [facility] Last Admin: 05/11/25 20:45 Dose: 2.5 mg Fluticasone/Vilanterol (Fluticasone/Vilanterol 200/25 Blst.W.Dev) 1 puff INHALE RDAILY [facility] Last Admin: 05/11/25 10:00 Dose: 1 puff Glycopyrrolate (Glycopyrrolate 1 Mg Tablet) 0.5 mg PO BID [facility] Last Admin: 05/11/25 20:45 Dose: 0.5 mg Hydrochlorothiazide (Hydrochlorothiazide 25 Mg Tablet) 25 mg PO DAILY [facility] Last Admin: 05/11/25 10:04 Dose: 25 mg Levetiracetam (Levetiracetam Oral Soln 500 Mg/5 Ml) 250 mg PO BID [facility] Last Admin: 05/11/25 20:43 Dose: 250 mg Magnesium Hydroxide (Milk Of Magnesia 30 Ml Oral.Susp) 30 ml PO DAILY PRN PRN Reason: Constipation Methimazole (Methimazole 5 Mg Tablet) 5 mg PO DAILY [facility] Last Admin: 05/11/25 10:03 Dose: 5 mg Naloxone HCl (Naloxone Hcl 0.4 Mg/Ml Vial) 0.04 mg IVPUSH Q5M PRN PRN Reason: Excessive sedation or RR < 8 Nifedipine (Nifedipine Er 30 Mg Tab.Er.24) 30 mg PO DAILY [facility]; Protocol Last Admin: 05/11/25 10:03 Dose: 30 mg Olanzapine (Olanzapine 10 Mg Tablet) 10 mg PO Q6H PRN PRN Reason: severe agitation Last Admin: 04/16/25 16:28 Dose: 10 mg Prednisone (Prednisone 20 Mg Tablet) 40 mg PO DAILY [facility] Last Admin: 05/11/25 10:03 Dose: 40 mg Tiotropium [place] (Tiotropium [place] 2.5 Mcg 1 Puff/2.5 Mcg Mist.Inhal) 1 puff INHALE RDAILY [facility] Last Admin: 05/11/25 09:58 Dose: 1 puff Trazodone HCl (Trazodone Hcl 50 Mg Tablet) 50 mg PO BEDTIME MRX1 PRN PRN Reason: Insomnia Last Admin: 04/04/25 23:21 Dose: 50 mg Allergies Allergies Allergy/AdvReac Type Severity Reaction Status Date / Time latex Allergy Unknown Verified 03/09/25 11:50 peanut Allergy Unknown Verified 03/09/25 11:50 Penicillins Allergy Unknown Verified 03/09/25 11:50 Assessment & Plan Assessment & Plan (1) Psychosis: Status: Acute Code(s): F29 - Unspecified psychosis not due to a substance or known physiological condition Assessment and Plan: r/o autoimmune reasons for psychosis including lupus. 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 Sharif is a 69 year-old woman who presents with a 3 month hx of new onset of psychosis (AH) and combination of paranoid delusions and cap gras delusions. No prior psychiatric hx. She does have of cocaine use but apparently had not used in some years. Daughter suspects she may have relapsed but no ongoing use. Pt presents with more complex theme of delusions. No additional medical work up available including head CT. CBC and cmp unremarkable. 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 It may be related to dementia process but complexity of delusions and psychosis not the common presentation for dementia that have psychosis early on such as in vascular dementia or LBD. Pt presents as gravely disable to able to care for self due to symptoms of psychosis and delusions. 7/8 increase night time risperidone 2mg po qhs increase cogetin at bedtime to 1mg po qhs. lower daily dose to 0.5mg po daily. continue cogentin 0.5mg po daily. clonazepam as prn olanzapine as prn for agitation 02/04 continue tx. 02/05 continue tx. 02/06 continue current dose of risperidone. NOTE THAT pt can't take doses higher than 3 mg/day of risperidone as higher doses had severe EPS. can use olanzapine as well per court order. 02/07/25: Patient has been agitated yelling loudly exist seeking, delusional thinking her daughter/son outside at the door to pick her up. PRNs given in the morning with mild effect. Patient became agitated, aggressive\, assaultive to 1 of the staff on the floor, yelling and hitting her face so grabbing her neck. Physical was started at 16:31 to 1634. Patient was given IM medication of Zyprexa 10 and Valium 10 with good effect. Tomorrow plan: Patient will be benefit from Valium 10 mg twice a day and Zyprexa 5 mg 3 times a day is added into her scheduled medication as current plan with risperidone is not effective. Patient also having a backup for risperidone if she refused. 02/08/25: Slept most of the morning and last night. In better behavior control. No aggressive behavior. She is quiet, self dialogue, and medication compliant. Due to receive restrain medication yesterday. I did not make any medication change. But the Valium and additional Zyprexa appears to be helpful. 02/09 will try to change keppra to depakote for seizures as keppra may exacerbate psychosis. increase risperidone 1mg po daily and 2mg po qhs. may need to add second antipsychotic. 02/10 continues to present as paranoid with AH. at times declines oral medications, requiring IM back per court order. 02/11 continue tx. 02/12 continue tx. 02/13 continue tx. 02/14: no changes today. Monitor for agitation around confusion about hospitalization 02/15: no changes today, self dialogue more overt/extensive today 02/16 add olanzapine 5mg po qhs. continue risperidone. minimal improvement if any. 02/17 continue tx. 02/18 seems more somnolent with bedtime olanzapine, will continue to monitor. 02/19 cbc showed thrombocytopenia, which is new and suspect related to depakote 02/20 pt appears more sedated since addition of olanzapine at bedtime. She continues to self dialogue. minimal improvement. 02/21: Continue current management and treatment plan. 02/22: continue current management and treatment plan. 02/23 continue tx. may need to affirm HCP try different antipsychotic. 02/24 continue tx. results of LENORE 1:360, pattern homogenous A. 02/25 will try rexulti, lower risperidone. pending coordination of medical care to see if underlying autoimmune condition has anything to do with current presentation. 02/26 discussed with hospital employment attorney to dismiss sect 8, HCP invoked and can consent to other treatment. daughter Maricruz give permission to try different antipsychotic. 02/27 decrease risperidone to 1mg po daily, start prolixin 2.5mg po qhs, then increase to BID. continue olanzapine prn for agitation. olanzapine as well per court order. 03/03 pt seen by neurology, added HIV/RPR/LYME, can't have MRI due to cochlear implant. 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 Last Neurology appointment 01/2024. Missed appointment with rheumatology 05/2024, last seen in 02/26/2024. - Pt can't have MRI due to cochlear implant. Had head CT. - continue prolixin 2.5mg po daily, 5mg po qhs. will d/c risperidone, increase prolixin 5mg po BID, back up IM. 03/05 continue tx. 03/06 This staff writer spoke with pt's paper pattern inspector, Dr. Al obtained collateral information. Will coordinate with neurology and rheumatology once LP results are available. r/o reoccurance of pachymeningitis, lupus or other autoimmune cause for psychosis. 03/07: Continue current regimen and plans. Discontinued one-to-one and put in place 5 minute checks 03/08: Continue current plans and regimen 03/09 continue tx. 03/10: continue current mgmt. continues disorganized and psychotic. see neuro note from today. continue with neuro w/u. 03/11: given zyprexa 5 and valium [address] and head CTA. head CTA WNL, chest CT showed numerous pulmonary nodules up to 10 mm in size. no change in presentation. due to persistent requests for discharge, 3-day notice submitted on her behalf. will work toward HCP affirmation by the court. 03/12: per pulm consult, chest CT more c/w rheumatological process than CA, recommended empiric steroid course. awaiting input from neuro. consider Bx of nodules otherwise. continue current mgmt for now. 03/13: variably calm and agitated. planning for bronchoscopy with pulmonary nodule Bx on sunday. continue current mgmt. case discussed with HCP Maricruz (daughter), who is in agreement with plan. 03/14: CSF with notable findings. will f/u with neuro on sunday. stable presentation for now, remains quite psychotic. continue current mgmt. bronchoscopy sunday. 03/15: no change from yesterday in presentation or plan. 03/16: stable presentation. continues confused, wanting to go home. HCP affirmation tomorrow. continue current mgmt. 03/17: stable presdentation. bronchoscopy pending. continue current mgmt. 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 awaiting bronchoscopy. remains psychotic. continue current mgmt for now. 03/20: no change in presentation. still awaiting go-ahead for brochoscopy. continue current mgmt. 03/22: No changes. Noted above. 03/23: awaiting insurance approval for bronchoscopy. stable presentation. 03/24: as for yesterday. 03/25: loudly RIS in milieu today. bronchoscopy scheduled for sunday at 1130. NPO past MN night. stable presentation. continue current mgmt. 03/26 pt presents as more disorganized and inattentive than usual showing more signs of delirious behavior. bronchoscopy was canceled,due to shortage of needles to complete biopsy. will order cbc, cmp, ammonia levels given increase disorganized behavior and worsening attention pointing at a more delirious presentation. Review of results from LP showing negative results for meningitis panel/paraneoplastic panel (including most common antibody found in SLC which is EARL 1 which was negative), elevated protein in CSF 131 without leukocytosis, also elevated CSF/serum IgG index. elevated anti-ds dna titer 1:80. Such results may point more to a rheumatological condition than infectious condition or malignancy. Mrs. Sharif's OP paper pattern inspector, Dr. Al recommends trial of prednisone 40mg po daily at least for 2 weeks. 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 03/31 increase prolixin to 5mg po BID. continue all other medications including prednisone 40mg po daily. 04/01 discussed with her OP paper pattern inspector, Dr. Al possibility of transferring to [facility] for further tx of autoimmune condition, suspected also having lupus. continue prednisone. Spoke with daughter who is HCP, daughter concern about pt going to [facility] due to being dismissed several times when pt was first brought psychotic. 04/02 continue tx 04/03 increase prolixin to 5mg po TID. monitor EPS. 04/06 continue tx. 04/07- pending response from [facility] to see if they will take her for further evaluation of autoimmune condition with multidisciplinary team to continue see if psychosis related to autoimmune or primarily psychosis. Some improvement in attention, less guarded. continues to have auditory hallucinations. May consider switch to clozapine given that she has tried 3 antipsychotics with limited efficacy. 04/08 start clozapine 25mg po qhs. continue prolixin 7.5mg po TID. 04/09 increase clozapine to 50mg po qhs. continue prolixin 7.5mg po TID. 04/10 decrease prolixin to 7.5mg po BID. increase clozapine to 75mg po qhs. continue increasing clozapine by 25mg/day. automotive glazier, recommends repeat CT in 2 weeks, and hold on bronchoscopy. 04/11: no change today, will titrate Clozapine further tomorrow 04/12: titrate Clozapine to 100 mg QHS 04/13 increase clozapine to 125mg po qhs. continue prolixin 7.5mg po BID. 04/14 Provided update to daughter Maricruz who is HCP in terms of pt being treated for both autoimmune condition that may be contributing to psychosis (with prednione) as well as primarily psychiatric disorder (although less likely) with clozapine. some improvement in attention, slightly less paranoid but continues to present with ongoing AH of her daughter. 04/15 continue tx. 04/16 continue tx. 04/17 start glycopyrralate for drooling, decrease cogentin. 04/17 increase clozapine 150mg po qhs, lower prolixin 2.5mg po BID. back up. 04/18: Continue current management and treatment plan. 04/19: continue current management and treatment plan. 04/20 increase clozapine to 175mg po qhs. 04/21 continue tx. 04/22 continue tx. 04/23 continue tx. will check clozapine levels. 04/[address] followed up done today- much less nodules seen. 04/27 no change in presentation, less paranoid towards staff but ongoing AH. Impaired awareness of surroundings and conversations mostly base on delusional content. Will consult as well with her OP Surg Rn as to whether continue prednisone as initially recommended by rheumatology for suspected lupus, although it has had additional benefits in lung nodules. 04/28 increase clozapine 200mg po qhs. 04/[address] showed improvement in her pulmonary nodules and absence of pulmonary symptoms otherwise. recommendation to taper off prednisone slowly with repeat of chest CT in 3 months for stability of reminder of nodules. her OP paper pattern inspector did want to continue prednisone for suspected lupus, may discuss further with rheumatology if they want to continue prednisone or stop it. 04/30 continue tx. 05/01 continue tx. will check clozapine level on 05/04/2505/05 continue tx. pending clozapine levels. 05/06 continue tx. 05/07 continue tx. 05/08 continue tx. 05/09 through 05/11 no change in presentation; continue treatment plan Informed Consent: does not understand Reason for continued inpatient stay Substantial Risk for: inability to function Time Spent With Patient Time: Total time managing care of this patient today ____ minutes.
[2025-05-12 09:35] VITALS: BP 154/68; PULSE 63; RESP 18; TEMP 36.3; O2SAT 97
[2025-05-12] MEDS: levETIRAcetam Oral Soln 500 MG/5 ML 250 MG PO ×2 (09:36→19:58)
[2025-05-12] MEDS: NIFEdipine ER 30 MG TAB.ER.24 PO (09:37)
[2025-05-12] MEDS: Fluticasone/Vilanterol 200/25 BLST.W.DEV 1 PUFF INHALE (09:38)
[2025-05-12] MEDS: Tiotropium Bromide 2.5 mcg 1 PUFF/2.5 MCG MIST.INHAL INHALE (09:38)
[2025-05-12] MEDS: Albuterol Sulfate 90 MCG 8 GM INHALER 2 PUFF INHALE (09:40)
--- NOTE | 2025-05-12 13:48 | HO.PSYCHPN ---
Subjective Subjective Date of Service: 05/12/25 Reason For Visit: Abnormal CT chest Subjective Notes: [place] Order and Section 8 Interim History: Medical record and nursing notes reviewed; case discussed during rounds with team/nursing staff, and met with patient for supportive therapy/psychoeducation, as well as medication management. No change, slept through the night and ate well. Medication compliant. Ambulate using walker, walker next to table in dining area where patient sits. Visible in common area but not attended groups. Calm, pleasant and cooperative. No notable side effects from medication. Feeling safe here I want to be home but the weather does not allow me to go home . Last BM was yesterday. Communicate with staff via written form. Medication Compliance: Yes Side effects from medications: No Attending Groups: No (but visible in common area ) Review of Systems Acute medical concerns: No Medical Review of Systems: unchanged Review of Systems Review of Systems Constitutional: Denies fatigue and Denies fever(s) Cardiovascular: Denies chest pain and Denies dyspnea Respiratory: Denies dyspnea Gastrointestinal: Denies abdominal pain Psychiatric: denies suicidal ideation Endocrine: Denies fatigue Yes all other systems are reviewed and are negative Mental Status Exam Mental Status Exam Narrative: Appearance: casual attire, adequate grooming and hygiene Behavior: calm, keeping to self, engagement limited by vision and hearing difficulties Orientation: alert, oriented to idea that she is in the hospital, year, month not date nor situation. Psychomotor Function: no agitation or slowing; no abnormal gestures or movements Speech: normal rate/rhythm/volume, spontaneous Mood: I am ok Affect: calm, non-labile Thought Process: more linear/organized. Thought Content:organized Hallucinations: AH constantly talking to daughter who is not there baseline but not at the time of assessment Delusions: not expressed Insight: impairment Judgment: impairment Impulsivity: none noted Diagnostics Vital Signs (24Hr): Vital Signs - 24 hr 05/11/25 20:00 05/12/25 09:35 Temperature 98 F 97.3 F Pulse Rate 69 63 Respiratory Rate 16 18 Blood Pressure 116/56 L 154/68 H Pulse Oximetry 96 97 Oxygen Delivery Method Room Air Room Air BMI result Body Mass Index 31.9 Labs 03/29/25 08:55 03/29/25 08:55 Imaging Radiology Impressions: ITS Impressions Head CT 03/05/25 15:51 IMPRESSION: 1. No acute intracranial abnormality. 2. Right-sided cochlear nerve implant with associated streak artifact. 3. Right-sided canal wall up mastoidectomy. Electronically signed by: Levi Greer MD 03/05/2025 04:25 PM EDT RP Lumbar Puncture Fluoroscopy 03/09/25 11:50 IMPRESSION: Successful fluoroscopy-guided lumbar puncture performed without immediate complications Electronically signed by: Thompson Andujar MD 03/09/2025 04:06 PM EDT RP Chest CT 03/11/25 11:52 IMPRESSION: 1. Multiple bilateral pulmonary nodules measuring up to 10 mm in size. Further evaluation should be based on Fleischner Society guidelines below. 2. Cardiomegaly. Findings consistent with pulmonary arterial hypertension. 3. No evidence of mediastinal or hilar lymphadenopathy. Fleischner Criteria for pulmonary nodule follow-up SOLID NODULES: Low risk patient: <6mm: no follow-up 6-8mm: 6 month follow-up CT >8mm: PET/Biopsy/ 3 month follow-up CT High risk patient: <6mm: 12 month follow-up CT 6-8mm: 6 month follow-up CT >8mm: PET/Biopsy/ 3 month follow-up CT SUB-SOLID/GROUNDGLASS NODULES: All patients: > or = 6mm: 6 month follow-up CT *Please note that in patients in the following categories, the Fleischner criteria do not apply: Immunocompromised, lung cancer screening population, age below 35, and patients with known malignancy Electronically signed by: Best Clemons MD 03/11/2025 01:45 PM EDT RP Head CTA 03/11/25 11:52 IMPRESSION: Head CT: No acute intracranial abnormality. CT angiogram of the head: No vascular occlusions. Electronically signed by: Gypsy Salamanca MD 03/11/2025 03:02 PM EDT RP Chest CT 04/24/25 09:58 IMPRESSION: 1. Majority of the previously seen pulmonary nodules have resolved, and were consistent with infectious or inflammatory etiology. 2. There is a persistent 9 mm nodular focus in the lateral right upper lobe, which is felt to represent scarring given the appearance. To be cautious, a 3 month interval follow-up CT is recommended to ensure stability. 3. There is mild to moderate paraseptal emphysema. There is no acute pneumonic consolidation. 4. There is thickening of the small airways suggesting bronchitis. 5. There is moderate cardiac enlargement. Enlarged main pulmonary artery is consistent with pulmonary arterial hypertension. Electronically signed by: Levi Greer MD 04/24/2025 10:56 AM EDT Medications Medications Current Medications Acetaminophen (Acetaminophen 325 Mg Tablet) 650 mg PO Q6H PRN PRN Reason: Headache/Pain, Scale 1-10 Last Admin: 05/09/25 08:52 Dose: 650 mg Al Hydroxide/Mg Hydroxide (Magnesium Hydrox/Alum Hydrox 30 Ml Oral.Susp) 30 ml PO Q6H PRN PRN Reason: Heartburn/Nausea Albuterol Sulfate (Albuterol Sulfate 90 Mcg 8 Gm Inhaler) 2 puff INHALE Q4H PRN PRN Reason: Shortness Of Breath Or Wheezing Last Admin: 05/12/25 09:40 Dose: 2 puff Atorvastatin Calcium (Atorvastatin Calcium 40 Mg Tablet) 40 mg PO DAILY [facility] Last Admin: 05/12/25 09:46 Dose: 40 mg Clonazepam (Clonazepam Odt 0.5 Mg Tab.Rapdis) 0.5 mg PO BID PRN PRN Reason: severe anxiety/sleep Last Admin: 05/10/25 05:31 Dose: 0.5 mg Clozapine (Clozapine 100 Mg Tablet) 200 mg PO BEDTIME [facility] Last Admin: 05/11/25 20:44 Dose: 200 mg Fluphenazine HCl (Fluphenazine Hcl 2.5 Mg/Ml 10 Ml Vial) 2.5 mg IM BID PRN PRN Reason: give if refuses oral per HCP Last Admin: 03/05/25 09:42 Dose: 2.5 mg Fluphenazine HCl (Fluphenazine Hcl 2.5 Mg Tablet) 2.5 mg PO BID [facility] Last Admin: 05/12/25 09:37 Dose: 2.5 mg Fluticasone/Vilanterol (Fluticasone/Vilanterol 200/25 Blst.W.Dev) 1 puff INHALE DAILY [facility] Last Admin: 05/12/25 09:38 Dose: Not Given Glycopyrrolate (Glycopyrrolate 1 Mg Tablet) 0.5 mg PO BID [facility] Last Admin: 05/12/25 09:37 Dose: 0.5 mg Hydrochlorothiazide (Hydrochlorothiazide 25 Mg Tablet) 25 mg PO DAILY [facility] Last Admin: 05/12/25 09:37 Dose: 25 mg Levetiracetam (Levetiracetam Oral Soln 500 Mg/5 Ml) 250 mg PO BID [facility] Last Admin: 05/12/25 09:36 Dose: 250 mg Magnesium Hydroxide (Milk Of Magnesia 30 Ml Oral.Susp) 30 ml PO DAILY PRN PRN Reason: Constipation Methimazole (Methimazole 5 Mg Tablet) 5 mg PO DAILY [facility] Last Admin: 05/12/25 09:36 Dose: 5 mg Naloxone HCl (Naloxone Hcl 0.4 Mg/Ml Vial) 0.04 mg IVPUSH Q5M PRN PRN Reason: Excessive sedation or RR < 8 Nifedipine (Nifedipine Er 30 Mg Tab.Er.24) 30 mg PO DAILY [facility]; Protocol Last Admin: 05/12/25 09:37 Dose: 30 mg Olanzapine (Olanzapine 10 Mg Tablet) 10 mg PO Q6H PRN PRN Reason: severe agitation Last Admin: 04/16/25 16:28 Dose: 10 mg Prednisone (Prednisone 20 Mg Tablet) 40 mg PO DAILY [facility] Last Admin: 05/12/25 09:36 Dose: 40 mg Tiotropium [place] (Tiotropium [place] 2.5 Mcg 1 Puff/2.5 Mcg Mist.Inhal) 1 puff INHALE DAILY [facility] Last Admin: 05/12/25 09:38 Dose: Not Given Trazodone HCl (Trazodone Hcl 50 Mg Tablet) 50 mg PO BEDTIME MRX1 PRN PRN Reason: Insomnia Last Admin: 04/04/25 23:21 Dose: 50 mg Allergies Allergies Allergy/AdvReac Type Severity Reaction Status Date / Time latex Allergy Unknown Verified 03/09/25 11:50 peanut Allergy Unknown Verified 03/09/25 11:50 Penicillins Allergy Unknown Verified 03/09/25 11:50 Assessment & Plan Assessment & Plan (1) Psychosis: Status: Acute Code(s): F29 - Unspecified psychosis not due to a substance or known physiological condition Assessment and Plan: r/o autoimmune reasons for psychosis including lupus. 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 Sharif is a 69 year-old woman who presents with a 3 month hx of new onset of psychosis (AH) and combination of paranoid delusions and cap gras delusions. No prior psychiatric hx. She does have of cocaine use but apparently had not used in some years. Daughter suspects she may have relapsed but no ongoing use. Pt presents with more complex theme of delusions. No additional medical work up available including head CT. CBC and cmp unremarkable. 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 It may be related to dementia process but complexity of delusions and psychosis not the common presentation for dementia that have psychosis early on such as in vascular dementia or LBD. Pt presents as gravely disable to able to care for self due to symptoms of psychosis and delusions. 02/03 increase night time risperidone 2mg po qhs increase cogetin at bedtime to 1mg po qhs. lower daily dose to 0.5mg po daily. continue cogentin 0.5mg po daily. clonazepam as prn olanzapine as prn for agitation 02/04 continue tx. 02/05 continue tx. 02/06 continue current dose of risperidone. NOTE THAT pt can't take doses higher than 3 mg/day of risperidone as higher doses had severe EPS. can use olanzapine as well per court order. 02/07/25: Patient has been agitated yelling loudly exist seeking, delusional thinking her daughter/son outside at the door to pick her up. PRNs given in the morning with mild effect. Patient became agitated, aggressive\, assaultive to 1 of the staff on the floor, yelling and hitting her face so grabbing her neck. Physical was started at 16:31 to 1634. Patient was given IM medication of Zyprexa 10 and Valium 10 with good effect. Tomorrow plan: Patient will be benefit from Valium 10 mg twice a day and Zyprexa 5 mg 3 times a day is added into her scheduled medication as current plan with risperidone is not effective. Patient also having a backup for risperidone if she refused. 02/08/25: Slept most of the morning and last night. In better behavior control. No aggressive behavior. She is quiet, self dialogue, and medication compliant. Due to receive restrain medication yesterday. I did not make any medication change. But the Valium and additional Zyprexa appears to be helpful. 02/09 will try to change keppra to depakote for seizures as keppra may exacerbate psychosis. increase risperidone 1mg po daily and 2mg po qhs. may need to add second antipsychotic. 02/10 continues to present as paranoid with AH. at times declines oral medications, requiring IM back per court order. 02/11 continue tx. 02/12 continue tx. 02/13 continue tx. 02/14: no changes today. Monitor for agitation around confusion about hospitalization 02/15: no changes today, self dialogue more overt/extensive today 02/16 add olanzapine 5mg po qhs. continue risperidone. minimal improvement if any. 02/17 continue tx. 02/18 seems more somnolent with bedtime olanzapine, will continue to monitor. 02/19 cbc showed thrombocytopenia, which is new and suspect related to depakote 02/20 pt appears more sedated since addition of olanzapine at bedtime. She continues to self dialogue. minimal improvement. 02/21: Continue current management and treatment plan. 02/22: continue current management and treatment plan. 02/23 continue tx. may need to affirm HCP try different antipsychotic. 02/24 continue tx. results of LENORE 1:360, pattern homogenous A. 02/25 will try rexulti, lower risperidone. pending coordination of medical care to see if underlying autoimmune condition has anything to do with current presentation. 02/26 discussed with hospital assistant attorney general to dismiss sect 8, HCP invoked and can consent to other treatment. daughter Maricruz give permission to try different antipsychotic. 02/27 decrease risperidone to 1mg po daily, start prolixin 2.5mg po qhs, then increase to BID. continue olanzapine prn for agitation. olanzapine as well per court order. 03/03 pt seen by neurology, added HIV/RPR/LYME, can't have MRI due to cochlear implant. 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 Last Neurology appointment 01/2024. Missed appointment with rheumatology 05/2024, last seen in 02/26/2024. - Pt can't have MRI due to cochlear implant. Had head CT. - continue prolixin 2.5mg po daily, 5mg po qhs. will d/c risperidone, increase prolixin 5mg po BID, back up IM. 03/05 continue tx. 03/06 This publicity writer spoke with pt's deliverer food, Dr. Al obtained collateral information. Will coordinate with neurology and rheumatology once LP results are available. r/o reoccurance of pachymeningitis, lupus or other autoimmune cause for psychosis. 03/07: Continue current regimen and plans. Discontinued one-to-one and put in place 5 minute checks 03/08: Continue current plans and regimen 03/09 continue tx. 03/10: continue current mgmt. continues disorganized and psychotic. see neuro note from today. continue with neuro w/u. 03/11: given zyprexa 5 and valium [address] and head CTA. head CTA WNL, chest CT showed numerous pulmonary nodules up to 10 mm in size. no change in presentation. due to persistent requests for discharge, 3-day notice submitted on her behalf. will work toward HCP affirmation by the court. 03/12: per pulm consult, chest CT more c/w rheumatological process than CA, recommended empiric steroid course. awaiting input from neuro. consider Bx of nodules otherwise. continue current mgmt for now. 03/13: variably calm and agitated. planning for bronchoscopy with pulmonary nodule Bx on sunday. continue current mgmt. case discussed with HCP Maricruz (daughter), who is in agreement with plan. 03/14: CSF with notable findings. will f/u with neuro on sunday. stable presentation for now, remains quite psychotic. continue current mgmt. bronchoscopy sunday. 03/15: no change from yesterday in presentation or plan. 03/16: stable presentation. continues confused, wanting to go home. HCP affirmation tomorrow. continue current mgmt. 03/17: stable presdentation. bronchoscopy pending. continue current mgmt. 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 awaiting bronchoscopy. remains psychotic. continue current mgmt for now. 03/20: no change in presentation. still awaiting go-ahead for brochoscopy. continue current mgmt. 03/22: No changes. Noted above. 03/23: awaiting insurance approval for bronchoscopy. stable presentation. 03/24: as for yesterday. 03/25: loudly RIS in milieu today. bronchoscopy scheduled for sunday at 1130. NPO past MN night. stable presentation. continue current mgmt. 03/26 pt presents as more disorganized and inattentive than usual showing more signs of delirious behavior. bronchoscopy was canceled,due to shortage of needles to complete biopsy. will order cbc, cmp, ammonia levels given increase disorganized behavior and worsening attention pointing at a more delirious presentation. Review of results from LP showing negative results for meningitis panel/paraneoplastic panel (including most common antibody found in SLC which is EARL 1 which was negative), elevated protein in CSF 131 without leukocytosis, also elevated CSF/serum IgG index. elevated anti-ds dna titer 1:80. Such results may point more to a rheumatological condition than infectious condition or malignancy. Mrs. Sharif's OP deliverer food, Dr. Al recommends trial of prednisone 40mg po daily at least for 2 weeks. 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 03/31 increase prolixin to 5mg po BID. continue all other medications including prednisone 40mg po daily. 04/01 discussed with her OP deliverer food, Dr. Al possibility of transferring to [facility] for further tx of autoimmune condition, suspected also having lupus. continue prednisone. Spoke with daughter who is HCP, daughter concern about pt going to [facility] due to being dismissed several times when pt was first brought psychotic. 04/02 continue tx 04/03 increase prolixin to 5mg po TID. monitor EPS. 04/06 continue tx. 04/07- pending response from [facility] to see if they will take her for further evaluation of autoimmune condition with multidisciplinary team to continue see if psychosis related to autoimmune or primarily psychosis. Some improvement in attention, less guarded. continues to have auditory hallucinations. May consider switch to clozapine given that she has tried 3 antipsychotics with limited efficacy. 04/08 start clozapine 25mg po qhs. continue prolixin 7.5mg po TID. 04/09 increase clozapine to 50mg po qhs. continue prolixin 7.5mg po TID. 04/10 decrease prolixin to 7.5mg po BID. increase clozapine to 75mg po qhs. continue increasing clozapine by 25mg/day. rag sorter, recommends repeat CT in 2 weeks, and hold on bronchoscopy. 04/11: no change today, will titrate Clozapine further tomorrow 04/12: titrate Clozapine to 100 mg QHS 04/13 increase clozapine to 125mg po qhs. continue prolixin 7.5mg po BID. 04/14 Provided update to daughter Maricruz who is HCP in terms of pt being treated for both autoimmune condition that may be contributing to psychosis (with prednione) as well as primarily psychiatric disorder (although less likely) with clozapine. some improvement in attention, slightly less paranoid but continues to present with ongoing AH of her daughter. 04/15 continue tx. 04/16 continue tx. 04/17 start glycopyrralate for drooling, decrease cogentin. 04/17 increase clozapine 150mg po qhs, lower prolixin 2.5mg po BID. back up. 04/18: Continue current management and treatment plan. 04/19: continue current management and treatment plan. 04/20 increase clozapine to 175mg po qhs. 04/21 continue tx. 04/22 continue tx. 04/23 continue tx. will check clozapine levels. 04/[address] followed up done today- much less nodules seen. 04/27 no change in presentation, less paranoid towards staff but ongoing AH. Impaired awareness of surroundings and conversations mostly base on delusional content. Will consult as well with her OP Cycling Instructor as to whether continue prednisone as initially recommended by rheumatology for suspected lupus, although it has had additional benefits in lung nodules. 04/28 increase clozapine 200mg po qhs. 04/[address] showed improvement in her pulmonary nodules and absence of pulmonary symptoms otherwise. recommendation to taper off prednisone slowly with repeat of chest CT in 3 months for stability of reminder of nodules. her OP deliverer food did want to continue prednisone for suspected lupus, may discuss further with rheumatology if they want to continue prednisone or stop it. 04/30 continue tx. 05/01 continue tx. will check clozapine level on 05/04/2505/05 continue tx. pending clozapine levels. 05/06 continue tx. 05/07 continue tx. 05/08 continue tx. 05/09 through 05/11 no change in presentation; continue treatment plan 05/12/25: No change, slept through the night. Medication compliant. Ambulate using walker, walker next to table in dining area where patient sits. Visible in common area but not attended groups. Calm, pleasant and cooperative. No notable side effects from medication. Feeling safe here I want to be home but the weather does not allow me to go home . Last BM was yesterday. Communicate with staff via written form. Patient educated on: medication risk/benefits and therapeutic strategies Informed Consent: further education needed Reason for continued inpatient stay Substantial Risk for: med/psych decompensation Time Spent With Patient Time: Total time managing care of this patient today ____ minutes.
[2025-05-12 19:57] VITALS: BP 117/59; PULSE 68; RESP 17; TEMP 36.1; O2SAT 95
[2025-05-13 08:00] VITALS: BP 138/68; PULSE 68; RESP 18; TEMP 36.2; O2SAT 97
[2025-05-13] MEDS: levETIRAcetam Oral Soln 500 MG/5 ML 250 MG PO ×2 (08:23→20:08)
[2025-05-13] MEDS: NIFEdipine ER 30 MG TAB.ER.24 PO (08:24)
[2025-05-13] MEDS: Fluticasone/Vilanterol 200/25 BLST.W.DEV 1 PUFF INHALE (08:33)
[2025-05-13] MEDS: Tiotropium Bromide 2.5 mcg 1 PUFF/2.5 MCG MIST.INHAL INHALE (08:33)
[2025-05-13] MEDS: Albuterol Sulfate 90 MCG 8 GM INHALER 2 PUFF INHALE ×2 (10:41→17:20)
--- NOTE | 2025-05-13 15:04 | P.PNPSI_ITS ---
Subjective Subjective Date of Service: 05/13/25 Reason For Visit: Abnormal CT chest Subjective Notes: [place] Order and Section 8 Medical Problems Affecting Mental Status: No Interim History: Medical record and nursing notes reviewed; case discussed during rounds with team/nursing staff, and met with patient for supportive therapy/psychoeducation, as well as medication management. Visible, eating and sleeping well. Medication compliant, no side effects. Denies safety concerns, denies voices. however, she is responded to internal stimuli, self dialogues at times. No behavior issues. Medication Compliance: Yes Side effects from medications: No Attending Groups: No (d/t vision and hearing deficit. ) Review of Systems Acute medical concerns: No Medical Review of Systems: unchanged Review of Systems Review of Systems Constitutional: Denies fatigue and Denies fever(s) Cardiovascular: Denies chest pain and Denies dyspnea Respiratory: Denies dyspnea Gastrointestinal: Denies abdominal pain Psychiatric: denies suicidal ideation Endocrine: Denies fatigue Yes all other systems are reviewed and are negative Mental Status Exam Mental Status Exam Narrative: Appearance: casual attire, adequate grooming and hygiene Behavior: calm, keeping to self, engagement limited by vision and hearing difficulties Orientation: alert, oriented to idea that she is in the hospital, year, month not date nor situation. Psychomotor Function: no agitation or slowing; no abnormal gestures or movements Speech: normal rate/rhythm/volume, spontaneous Mood: I am ok Affect: calm, non-labile Thought Process: more linear/organized. Thought Content:organized Hallucinations: AH constantly talking to daughter who is not there baseline but not at the time of assessment Delusions: not expressed Insight: impairment Judgment: impairment Impulsivity: none noted Diagnostics Vital Signs (24Hr): Vital Signs - 24 hr 05/12/25 19:57 05/13/25 08:00 Temperature 97 F 97.2 F Pulse Rate 68 68 Respiratory Rate 17 18 Blood Pressure 117/59 L 138/68 Pulse Oximetry 95 97 Oxygen Delivery Method Room Air Room Air BMI result Body Mass Index 31.9 Labs 03/29/25 08:55 03/29/25 08:55 Imaging Radiology Impressions: ITS Impressions Head CT 03/05/25 15:51 IMPRESSION: 1. No acute intracranial abnormality. 2. Right-sided cochlear nerve implant with associated streak artifact. 3. Right-sided canal wall up mastoidectomy. Electronically signed by: Levi Greer MD 03/05/2025 04:25 PM EDT RP Lumbar Puncture Fluoroscopy 03/09/25 11:50 IMPRESSION: Successful fluoroscopy-guided lumbar puncture performed without immediate complications Electronically signed by: Thompson Andujar MD 03/09/2025 04:06 PM EDT RP Chest CT 03/11/25 11:52 IMPRESSION: 1. Multiple bilateral pulmonary nodules measuring up to 10 mm in size. Further evaluation should be based on Fleischner Society guidelines below. 2. Cardiomegaly. Findings consistent with pulmonary arterial hypertension. 3. No evidence of mediastinal or hilar lymphadenopathy. Fleischner Criteria for pulmonary nodule follow-up SOLID NODULES: Low risk patient: <6mm: no follow-up 6-8mm: 6 month follow-up CT >8mm: PET/Biopsy/ 3 month follow-up CT High risk patient: <6mm: 12 month follow-up CT 6-8mm: 6 month follow-up CT >8mm: PET/Biopsy/ 3 month follow-up CT SUB-SOLID/GROUNDGLASS NODULES: All patients: > or = 6mm: 6 month follow-up CT *Please note that in patients in the following categories, the Fleischner criteria do not apply: Immunocompromised, lung cancer screening population, age below 35, and patients with known malignancy Electronically signed by: Best Clemons MD 03/11/2025 01:45 PM EDT RP Head CTA 03/11/25 11:52 IMPRESSION: Head CT: No acute intracranial abnormality. CT angiogram of the head: No vascular occlusions. Electronically signed by: Gypsy Salamanca MD 03/11/2025 03:02 PM EDT RP Chest CT 04/24/25 09:58 IMPRESSION: 1. Majority of the previously seen pulmonary nodules have resolved, and were consistent with infectious or inflammatory etiology. 2. There is a persistent 9 mm nodular focus in the lateral right upper lobe, which is felt to represent scarring given the appearance. To be cautious, a 3 month interval follow-up CT is recommended to ensure stability. 3. There is mild to moderate paraseptal emphysema. There is no acute pneumonic consolidation. 4. There is thickening of the small airways suggesting bronchitis. 5. There is moderate cardiac enlargement. Enlarged main pulmonary artery is consistent with pulmonary arterial hypertension. Electronically signed by: Levi Greer MD 04/24/2025 10:56 AM EDT Medications Medications Current Medications Acetaminophen (Acetaminophen 325 Mg Tablet) 650 mg PO Q6H PRN PRN Reason: Headache/Pain, Scale 1-10 Last Admin: 05/12/25 15:04 Dose: 650 mg Al Hydroxide/Mg Hydroxide (Magnesium Hydrox/Alum Hydrox 30 Ml Oral.Susp) 30 ml PO Q6H PRN PRN Reason: Heartburn/Nausea Albuterol Sulfate (Albuterol Sulfate 90 Mcg 8 Gm Inhaler) 2 puff INHALE Q4H PRN PRN Reason: Shortness Of Breath Or Wheezing Last Admin: 05/13/25 10:41 Dose: 2 puff Atorvastatin Calcium (Atorvastatin Calcium 40 Mg Tablet) 40 mg PO DAILY [facility] Last Admin: 05/13/25 08:24 Dose: 40 mg Clonazepam (Clonazepam Odt 0.5 Mg Tab.Rapdis) 0.5 mg PO BID PRN PRN Reason: severe anxiety/sleep Last Admin: 05/10/25 05:31 Dose: 0.5 mg Clozapine (Clozapine 100 Mg Tablet) 200 mg PO BEDTIME [facility] Last Admin: 05/12/25 19:59 Dose: 200 mg Fluphenazine HCl (Fluphenazine Hcl 2.5 Mg/Ml 10 Ml Vial) 2.5 mg IM BID PRN PRN Reason: give if refuses oral per HCP Last Admin: 03/05/25 09:42 Dose: 2.5 mg Fluphenazine HCl (Fluphenazine Hcl 2.5 Mg Tablet) 2.5 mg PO BID [facility] Last Admin: 05/13/25 08:23 Dose: 2.5 mg Fluticasone/Vilanterol (Fluticasone/Vilanterol 200/25 Blst.W.Dev) 1 puff INHALE DAILY [facility] Last Admin: 05/13/25 08:33 Dose: 1 puff Glycopyrrolate (Glycopyrrolate 1 Mg Tablet) 0.5 mg PO BID [facility] Last Admin: 05/13/25 08:24 Dose: 0.5 mg Hydrochlorothiazide (Hydrochlorothiazide 25 Mg Tablet) 25 mg PO DAILY [facility] Last Admin: 05/13/25 08:24 Dose: 25 mg Levetiracetam (Levetiracetam Oral Soln 500 Mg/5 Ml) 250 mg PO BID [facility] Last Admin: 05/13/25 08:23 Dose: 250 mg Magnesium Hydroxide (Milk Of Magnesia 30 Ml Oral.Susp) 30 ml PO DAILY PRN PRN Reason: Constipation Methimazole (Methimazole 5 Mg Tablet) 5 mg PO DAILY [facility] Last Admin: 05/13/25 08:24 Dose: 5 mg Naloxone HCl (Naloxone Hcl 0.4 Mg/Ml Vial) 0.04 mg IVPUSH Q5M PRN PRN Reason: Excessive sedation or RR < 8 Nifedipine (Nifedipine Er 30 Mg Tab.Er.24) 30 mg PO DAILY [facility]; Protocol Last Admin: 05/13/25 08:24 Dose: 30 mg Olanzapine (Olanzapine 10 Mg Tablet) 10 mg PO Q6H PRN PRN Reason: severe agitation Last Admin: 04/16/25 16:28 Dose: 10 mg Prednisone (Prednisone 20 Mg Tablet) 40 mg PO DAILY [facility] [place] Last Admin: 05/13/25 08:23 Dose: 40 mg Tiotropium [place] (Tiotropium [place] 2.5 Mcg 1 Puff/2.5 Mcg Mist.Inhal) 1 puff INHALE DAILY [facility] [place] Last Admin: 05/13/25 08:33 Dose: 1 puff Trazodone HCl (Trazodone Hcl 50 Mg Tablet) 50 mg PO BEDTIME MRX1 PRN PRN Reason: Insomnia Last Admin: 04/04/25 23:21 Dose: 50 mg Allergies Allergies Allergy/AdvReac Type Severity Reaction Status Date / Time latex Allergy Unknown Verified 03/09/25 11:50 peanut Allergy Unknown Verified 03/09/25 11:50 Penicillins Allergy Unknown Verified 03/09/25 11:50 Assessment & Plan Assessment & Plan (1) Psychosis: Status: Acute Code(s): F29 - Unspecified psychosis not due to a substance or known physiological condition Assessment and Plan: r/o autoimmune reasons for psychosis including lupus. 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 Sharif is a 69 year-old woman who presents with a 3 month hx of new onset of psychosis (AH) and combination of paranoid delusions and cap gras delusions. No prior psychiatric hx. She does have of cocaine use but apparently had not used in some years. Daughter suspects she may have relapsed but no ongoing use. Pt presents with more complex theme of delusions. No additional medical work up available including head CT. CBC and cmp unremarkable. 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 It may be related to dementia process but complexity of delusions and psychosis not the common presentation for dementia that have psychosis early on such as in vascular dementia or LBD. Pt presents as gravely disable to able to care for self due to symptoms of psychosis and delusions. 02/03 increase night time risperidone 2mg po qhs increase cogetin at bedtime to 1mg po qhs. lower daily dose to 0.5mg po daily. continue cogentin 0.5mg po daily. clonazepam as prn olanzapine as prn for agitation 02/04 continue tx. 02/05 continue tx. 02/06 continue current dose of risperidone. NOTE THAT pt can't take doses higher than 3 mg/day of risperidone as higher doses had severe EPS. can use olanzapine as well per court order. 02/07/25: Patient has been agitated yelling loudly exist seeking, delusional thinking her daughter/son outside at the door to pick her up. PRNs given in the morning with mild effect. Patient became agitated, aggressive\, assaultive to 1 of the staff on the floor, yelling and hitting her face so grabbing her neck. Physical was started at 16:31 to 1634. Patient was given IM medication of Zyprexa 10 and Valium 10 with good effect. Tomorrow plan: Patient will be benefit from Valium 10 mg twice a day and Zyprexa 5 mg 3 times a day is added into her scheduled medication as current plan with risperidone is not effective. Patient also having a backup for risperidone if she refused. 02/08/25: Slept most of the morning and last night. In better behavior control. No aggressive behavior. She is quiet, self dialogue, and medication compliant. Due to receive restrain medication yesterday. I did not make any medication change. But the Valium and additional Zyprexa appears to be helpful. 02/09 will try to change keppra to depakote for seizures as keppra may exacerbate psychosis. increase risperidone 1mg po daily and 2mg po qhs. may need to add second antipsychotic. 02/10 continues to present as paranoid with AH. at times declines oral medications, requiring IM back per court order. 02/11 continue tx. 02/12 continue tx. 02/13 continue tx. 02/14: no changes today. Monitor for agitation around confusion about hospitalization 02/15: no changes today, self dialogue more overt/extensive today 02/16 add olanzapine 5mg po qhs. continue risperidone. minimal improvement if any. 02/17 continue tx. 02/18 seems more somnolent with bedtime olanzapine, will continue to monitor. 02/19 cbc showed thrombocytopenia, which is new and suspect related to depakote 02/20 pt appears more sedated since addition of olanzapine at bedtime. She continues to self dialogue. minimal improvement. 02/21: Continue current management and treatment plan. 02/22: continue current management and treatment plan. 02/23 continue tx. may need to affirm HCP try different antipsychotic. 02/24 continue tx. results of LENORE 1:360, pattern homogenous A. 02/25 will try rexulti, lower risperidone. pending coordination of medical care to see if underlying autoimmune condition has anything to do with current presentation. 02/26 discussed with hospital collections attorney to dismiss sect 8, HCP invoked and can consent to other treatment. daughter Maricruz give permission to try different antipsychotic. 02/27 decrease risperidone to 1mg po daily, start prolixin 2.5mg po qhs, then increase to BID. continue olanzapine prn for agitation. olanzapine as well per court order. 03/03 pt seen by neurology, added HIV/RPR/LYME, can't have MRI due to cochlear implant. 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 Last Neurology appointment 01/2024. Missed appointment with rheumatology 05/2024, last seen in 02/26/2024. - Pt can't have MRI due to cochlear implant. Had head CT. - continue prolixin 2.5mg po daily, 5mg po qhs. will d/c risperidone, increase prolixin 5mg po BID, back up IM. 03/05 continue tx. 03/06 This business writer spoke with pt's orthopedic assistant, Dr. Al obtained collateral information. Will coordinate with neurology and rheumatology once LP results are available. r/o reoccurance of pachymeningitis, lupus or other autoimmune cause for psychosis. 03/07: Continue current regimen and plans. Discontinued one-to-one and put in place 5 minute checks 03/08: Continue current plans and regimen 03/09 continue tx. 03/10: continue current mgmt. continues disorganized and psychotic. see neuro note from today. continue with neuro w/u. 03/11: given zyprexa 5 and valium [address] and head CTA. head CTA WNL, chest CT showed numerous pulmonary nodules up to 10 mm in size. no change in presentation. due to persistent requests for discharge, 3-day notice submitted on her behalf. will work toward HCP affirmation by the court. 03/12: per pulm consult, chest CT more c/w rheumatological process than CA, recommended empiric steroid course. awaiting input from neuro. consider Bx of nodules otherwise. continue current mgmt for now. 03/13: variably calm and agitated. planning for bronchoscopy with pulmonary nodule Bx on sunday. continue current mgmt. case discussed with HCP Maricruz (daughter), who is in agreement with plan. 03/14: CSF with notable findings. will f/u with neuro on sunday. stable presentation for now, remains quite psychotic. continue current mgmt. bronchoscopy sunday. 03/15: no change from yesterday in presentation or plan. 03/16: stable presentation. continues confused, wanting to go home. HCP affirmation tomorrow. continue current mgmt. 03/17: stable presdentation. bronchoscopy pending. continue current mgmt. 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 awaiting bronchoscopy. remains psychotic. continue current mgmt for now. 03/20: no change in presentation. still awaiting go-ahead for brochoscopy. continue current mgmt. 03/22: No changes. Noted above. 03/23: awaiting insurance approval for bronchoscopy. stable presentation. 03/24: as for yesterday. 03/25: loudly RIS in milieu today. bronchoscopy scheduled for sunday at 1130. NPO past MN night. stable presentation. continue current mgmt. 03/26 pt presents as more disorganized and inattentive than usual showing more signs of delirious behavior. bronchoscopy was canceled,due to shortage of needles to complete biopsy. will order cbc, cmp, ammonia levels given increase disorganized behavior and worsening attention pointing at a more delirious presentation. * Review of results from LP showing negative results for meningitis panel/paraneoplastic panel (including most common antibody found in S[facility] which is EARL 1 which was negative), elevated protein in CSF 131 without leukocytosis, also elevated CSF/serum IgG index. elevated anti-ds dna titer 1:80. Such results may point more to a rheumatological condition than infectious condition or malignancy. Mrs. Sharif's OP orthopedic assistant, Dr. Al recommends trial of prednisone 40mg po daily at least for 2 weeks. 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 03/31 increase prolixin to 5mg po BID. continue all other medications including prednisone 40mg po daily. 04/01 discussed with her OP orthopedic assistant, Dr. Al possibility of transferring to [facility] for further tx of autoimmune condition, suspected also having lupus. continue prednisone. Spoke with daughter who is HCP, daughter concern about pt going to [facility] due to being dismissed several times when pt was first brought psychotic. 04/02 continue tx 04/03 increase prolixin to 5mg po TID. monitor EPS. 04/06 continue tx. 04/07- pending response from [facility] to see if they will take her for further evaluation of autoimmune condition with multidisciplinary team to continue see if psychosis related to autoimmune or primarily psychosis. Some improvement in attention, less guarded. continues to have auditory hallucinations. May consider switch to clozapine given that she has tried 3 antipsychotics with limited efficacy. 04/08 start clozapine 25mg po qhs. continue prolixin 7.5mg po TID. 04/09 increase clozapine to 50mg po qhs. continue prolixin 7.5mg po TID. 04/10 decrease prolixin to 7.5mg po BID. increase clozapine to 75mg po qhs. continue increasing clozapine by 25mg/day. wood pile driver operator, recommends repeat CT in 2 weeks, and hold on bronchoscopy. 04/11: no change today, will titrate Clozapine further tomorrow 04/12: titrate Clozapine to 100 mg QHS 04/13 increase clozapine to 125mg po qhs. continue prolixin 7.5mg po BID. 04/14 Provided update to daughter Maricruz who is HCP in terms of pt being treated for both autoimmune condition that may be contributing to psychosis (with prednione) as well as primarily psychiatric disorder (although less likely) with clozapine. some improvement in attention, slightly less paranoid but continues to present with ongoing AH of her daughter. 04/15 continue tx. 04/16 continue tx. 04/17 start glycopyrralate for drooling, decrease cogentin. 04/17 increase clozapine 150mg po qhs, lower prolixin 2.5mg po BID. back up. 04/18: Continue current management and treatment plan. 04/19: continue current management and treatment plan. 04/20 increase clozapine to 175mg po qhs. 04/21 continue tx. 04/22 continue tx. 04/23 continue tx. will check clozapine levels. 04/[address] followed up done today- much less nodules seen. 04/27 no change in presentation, less paranoid towards staff but ongoing AH. Impaired awareness of surroundings and conversations mostly base on delusional content. Will consult as well with her OP Antenna Engineer as to whether continue prednisone as initially recommended by rheumatology for suspected lupus, although it has had additional benefits in lung nodules. 04/28 increase clozapine 200mg po qhs. 04/[address] showed improvement in her pulmonary nodules and absence of pulmonary symptoms otherwise. recommendation to taper off prednisone slowly with repeat of chest CT in 3 months for stability of reminder of nodules. her OP orthopedic assistant did want to continue prednisone for suspected lupus, may discuss further with rheumatology if they want to continue prednisone or stop it. 04/30 continue tx. 05/01 continue tx. will check clozapine level on 05/04/2505/05 continue tx. pending clozapine levels. 05/06 continue tx. 05/07 continue tx. 05/08 continue tx. 05/09 through 05/11 no change in presentation; continue treatment plan 05/12/25: No change, slept through the night. Medication compliant. Ambulate using walker, walker next to table in dining area where patient sits. Visible in common area but not attended groups. Calm, pleasant and cooperative. No notable side effects from medication. Feeling safe here I want to be home but the weather does not allow me to go home . Last BM was yesterday. Communicate with staff via written form. 05/13/25: Visible, eating and sleeping well. Medication compliant, no side effects. Denies safety concerns, denies voices. however, she is responded to internal stimuli, self dialogues at times. No behavior issues. Pending Clozaril level. Patient educated on: medication risk/benefits and therapeutic strategies Informed Consent: understands and further education needed Reason for continued inpatient stay Substantial Risk for: med/psych decompensation Time Spent With Patient Time: Total time managing care of this patient today ____ minutes.
[2025-05-13 20:27] VITALS: BP 131/65; PULSE 98; RESP 16; TEMP 36.4; O2SAT 97
--- NOTE | 2025-05-14 08:23 | HO.PSYCHPN ---
Subjective Subjective Date of Service: 05/14/25 Reason For Visit: Abnormal CT chest Subjective Notes: [place] Order and Section 8 Healthcare Proxy: Yes Guardianship: Yes Medical Problems Affecting Mental Status: No Interim History: Medical record and nursing notes reviewed; case discussed during rounds with team/nursing staff, and met with patient for supportive therapy/psychoeducation, as well as medication management. Patient visible, calm, pleasant and cooperative. Medication compliant, some drooling while napping in bed. Passing gas, had BM yesterday. Report feeling tired but denies depression/anxiety. She self dialogue quietly, appear responding to internal stimuli. No behavior issues. No sleeping or appetite problems. Patient observed at some point this afternoon do some coloring art work at the table. Patient was assessed by PT team, report patient is at baseline, using walker. No further assessment needed. Potential will get the bed at [facility]. Medication Compliance: Yes Side effects from medications: No (Some drooling while in bed napping. ) Attending Groups: No (hearing vision barriers) Review of Systems Acute medical concerns: No Medical Review of Systems: unchanged Review of Systems Review of Systems Constitutional: Denies fatigue and Denies fever(s) Cardiovascular: Denies chest pain and Denies dyspnea Respiratory: Denies dyspnea Gastrointestinal: Denies abdominal pain Psychiatric: denies suicidal ideation Endocrine: Denies fatigue Yes all other systems are reviewed and are negative Mental Status Exam Mental Status Exam Narrative: Appearance: casual attire, adequate grooming and hygiene Behavior: calm, keeping to self, engagement limited by vision and hearing difficulties Orientation: alert, oriented to idea that she is in the hospital, year, month not date nor situation. Psychomotor Function: no agitation or slowing; no abnormal gestures or movements Speech: normal rate/rhythm/volume, spontaneous Mood: a little tired Affect: calm, non-labile Thought Process: more linear/organized. Thought Content:organized Hallucinations: AH constantly talking to daughter who is not there baseline but not at the time of assessment Delusions: not expressed Insight: impairment Judgment: impairment Impulsivity: none noted Diagnostics Vital Signs (24Hr): Vital Signs - 24 hr 05/13/25 20:27 Temperature 97.6 F Pulse Rate 98 Respiratory Rate 16 Blood Pressure 131/65 Pulse Oximetry 97 Oxygen Delivery Method Room Air BMI result Body Mass Index 31.9 Labs 03/29/25 08:55 03/29/25 08:55 Imaging Radiology Impressions: ITS Impressions Head CT 03/05/25 15:51 IMPRESSION: 1. No acute intracranial abnormality. 2. Right-sided cochlear nerve implant with associated streak artifact. 3. Right-sided canal wall up mastoidectomy. Electronically signed by: Levi Greer MD 03/05/2025 04:25 PM EDT RP Lumbar Puncture Fluoroscopy 03/09/25 11:50 IMPRESSION: Successful fluoroscopy-guided lumbar puncture performed without immediate complications Electronically signed by: Thompson Andujar MD 03/09/2025 04:06 PM EDT RP Chest CT 03/11/25 11:52 IMPRESSION: 1. Multiple bilateral pulmonary nodules measuring up to 10 mm in size. Further evaluation should be based on Fleischner Society guidelines below. 2. Cardiomegaly. Findings consistent with pulmonary arterial hypertension. 3. No evidence of mediastinal or hilar lymphadenopathy. Fleischner Criteria for pulmonary nodule follow-up SOLID NODULES: Low risk patient: <6mm: no follow-up 6-8mm: 6 month follow-up CT >8mm: PET/Biopsy/ 3 month follow-up CT High risk patient: <6mm: 12 month follow-up CT 6-8mm: 6 month follow-up CT >8mm: PET/Biopsy/ 3 month follow-up CT SUB-SOLID/GROUNDGLASS NODULES: All patients: > or = 6mm: 6 month follow-up CT *Please note that in patients in the following categories, the Fleischner criteria do not apply: Immunocompromised, lung cancer screening population, age below 35, and patients with known malignancy Electronically signed by: Best Clemons MD 03/11/2025 01:45 PM EDT RP Head CTA 03/11/25 11:52 IMPRESSION: Head CT: No acute intracranial abnormality. CT angiogram of the head: No vascular occlusions. Electronically signed by: Gypsy Salamanca MD 03/11/2025 03:02 PM EDT RP Chest CT 04/24/25 09:58 IMPRESSION: 1. Majority of the previously seen pulmonary nodules have resolved, and were consistent with infectious or inflammatory etiology. 2. There is a persistent 9 mm nodular focus in the lateral right upper lobe, which is felt to represent scarring given the appearance. To be cautious, a 3 month interval follow-up CT is recommended to ensure stability. 3. There is mild to moderate paraseptal emphysema. There is no acute pneumonic consolidation. 4. There is thickening of the small airways suggesting bronchitis. 5. There is moderate cardiac enlargement. Enlarged main pulmonary artery is consistent with pulmonary arterial hypertension. Electronically signed by: Levi Greer MD 04/24/2025 10:56 AM EDT Medications Medications Current Medications Acetaminophen (Acetaminophen 325 Mg Tablet) 650 mg PO Q6H PRN PRN Reason: Headache/Pain, Scale 1-10 Last Admin: 05/12/25 15:04 Dose: 650 mg Al Hydroxide/Mg Hydroxide (Magnesium Hydrox/Alum Hydrox 30 Ml Oral.Susp) 30 ml PO Q6H PRN PRN Reason: Heartburn/Nausea Albuterol Sulfate (Albuterol Sulfate 90 Mcg 8 Gm Inhaler) 2 puff INHALE Q4H PRN PRN Reason: Shortness Of Breath Or Wheezing Last Admin: 05/13/25 17:20 Dose: 2 puff Atorvastatin Calcium (Atorvastatin Calcium 40 Mg Tablet) 40 mg PO DAILY [facility] Last Admin: 05/13/25 08:24 Dose: 40 mg Clonazepam (Clonazepam Odt 0.5 Mg Tab.Rapdis) 0.5 mg PO BID PRN PRN Reason: severe anxiety/sleep Last Admin: 05/10/25 05:31 Dose: 0.5 mg Clozapine (Clozapine 100 Mg Tablet) 200 mg PO BEDTIME ALLY Last Admin: 05/13/25 20:08 Dose: 200 mg Fluphenazine HCl (Fluphenazine Hcl 2.5 Mg/Ml 10 Ml Vial) 2.5 mg IM BID PRN PRN Reason: give if refuses oral per HCP Last Admin: 03/05/25 09:42 Dose: 2.5 mg Fluphenazine HCl (Fluphenazine Hcl 2.5 Mg Tablet) 2.5 mg PO BID [facility] Last Admin: 05/13/25 20:08 Dose: 2.5 mg Fluticasone/Vilanterol (Fluticasone/Vilanterol 200/25 Blst.W.Dev) 1 puff INHALE DAILY [facility] Last Admin: 05/13/25 08:33 Dose: 1 puff Glycopyrrolate (Glycopyrrolate 1 Mg Tablet) 0.5 mg PO BID [facility] Last Admin: 05/13/25 20:08 Dose: 0.5 mg Hydrochlorothiazide (Hydrochlorothiazide 25 Mg Tablet) 25 mg PO DAILY [facility] Last Admin: 05/13/25 08:24 Dose: 25 mg Levetiracetam (Levetiracetam Oral Soln 500 Mg/5 Ml) 250 mg PO BID [facility] Last Admin: 05/13/25 20:08 Dose: 250 mg Magnesium Hydroxide (Milk Of Magnesia 30 Ml Oral.Susp) 30 ml PO DAILY PRN PRN Reason: Constipation Methimazole (Methimazole 5 Mg Tablet) 5 mg PO DAILY [facility] Last Admin: 05/13/25 08:24 Dose: 5 mg Naloxone HCl (Naloxone Hcl 0.4 Mg/Ml Vial) 0.04 mg IVPUSH Q5M PRN PRN Reason: Excessive sedation or RR < 8 Nifedipine (Nifedipine Er 30 Mg Tab.Er.24) 30 mg PO DAILY [facility]; Protocol Last Admin: 05/13/25 08:24 Dose: 30 mg Olanzapine (Olanzapine 10 Mg Tablet) 10 mg PO Q6H PRN PRN Reason: severe agitation Last Admin: 04/16/25 16:28 Dose: 10 mg Prednisone (Prednisone 20 Mg Tablet) 40 mg PO DAILY [facility] Last Admin: 05/13/25 08:23 Dose: 40 mg Tiotropium Lindsay (Tiotropium Lindsay 2.5 Mcg 1 Puff/2.5 Mcg Mist.Inhal) 1 puff INHALE DAILY [facility] Last Admin: 05/13/25 08:33 Dose: 1 puff Trazodone HCl (Trazodone Hcl 50 Mg Tablet) 50 mg PO BEDTIME MRX1 PRN PRN Reason: Insomnia Last Admin: 04/04/25 23:21 Dose: 50 mg Allergies Allergies Allergy/AdvReac Type Severity Reaction Status Date / Time latex Allergy Unknown Verified 03/09/25 11:50 peanut Allergy Unknown Verified 03/09/25 11:50 Penicillins Allergy Unknown Verified 03/09/25 11:50 Assessment & Plan Assessment & Plan (1) Psychosis: Status: Acute Code(s): F29 - Unspecified psychosis not due to a substance or known physiological condition Assessment and Plan: r/o autoimmune reasons for psychosis including lupus. 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 Sharif is a 69 year-old woman who presents with a 3 month hx of new onset of psychosis (AH) and combination of paranoid delusions and cap gras delusions. No prior psychiatric hx. She does have of cocaine use but apparently had not used in some years. Daughter suspects she may have relapsed but no ongoing use. Pt presents with more complex theme of delusions. No additional medical work up available including head CT. CBC and cmp unremarkable. 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 It may be related to dementia process but complexity of delusions and psychosis not the common presentation for dementia that have psychosis early on such as in vascular dementia or LBD. Pt presents as gravely disable to able to care for self due to symptoms of psychosis and delusions. 02/03 increase night time risperidone 2mg po qhs increase cogetin at bedtime to 1mg po qhs. lower daily dose to 0.5mg po daily. continue cogentin 0.5mg po daily. clonazepam as prn olanzapine as prn for agitation 02/04 continue tx. 02/05 continue tx. 02/06 continue current dose of risperidone. NOTE THAT pt can't take doses higher than 3 mg/day of risperidone as higher doses had severe EPS. can use olanzapine as well per court order. 02/07/25: Patient has been agitated yelling loudly exist seeking, delusional thinking her daughter/son outside at the door to pick her up. PRNs given in the morning with mild effect. Patient became agitated, aggressive\, assaultive to 1 of the staff on the floor, yelling and hitting her face so grabbing her neck. Physical was started at 16:31 to 1634. Patient was given IM medication of Zyprexa 10 and Valium 10 with good effect. Tomorrow plan: Patient will be benefit from Valium 10 mg twice a day and Zyprexa 5 mg 3 times a day is added into her scheduled medication as current plan with risperidone is not effective. Patient also having a backup for risperidone if she refused. 02/08/25: Slept most of the morning and last night. In better behavior control. No aggressive behavior. She is quiet, self dialogue, and medication compliant. Due to receive restrain medication yesterday. I did not make any medication change. But the Valium and additional Zyprexa appears to be helpful. 02/09 will try to change keppra to depakote for seizures as keppra may exacerbate psychosis. increase risperidone 1mg po daily and 2mg po qhs. may need to add second antipsychotic. 02/10 continues to present as paranoid with AH. at times declines oral medications, requiring IM back per court order. 02/11 continue tx. 02/12 continue tx. 02/13 continue tx. 02/14: no changes today. Monitor for agitation around confusion about hospitalization 02/15: no changes today, self dialogue more overt/extensive today 02/16 add olanzapine 5mg po qhs. continue risperidone. minimal improvement if any. 02/17 continue tx. 02/18 seems more somnolent with bedtime olanzapine, will continue to monitor. 02/19 cbc showed thrombocytopenia, which is new and suspect related to depakote 02/20 pt appears more sedated since addition of olanzapine at bedtime. She continues to self dialogue. minimal improvement. 02/21: Continue current management and treatment plan. 02/22: continue current management and treatment plan. 02/23 continue tx. may need to affirm HCP try different antipsychotic. 02/24 continue tx. results of LENORE 1:360, pattern homogenous A. 02/25 will try rexulti, lower risperidone. pending coordination of medical care to see if underlying autoimmune condition has anything to do with current presentation. 02/26 discussed with hospital prosecuting attorney to dismiss sect 8, HCP invoked and can consent to other treatment. daughter Maricruz give permission to try different antipsychotic. 02/27 decrease risperidone to 1mg po daily, start prolixin 2.5mg po qhs, then increase to BID. continue olanzapine prn for agitation. olanzapine as well per court order. 03/03 pt seen by neurology, added HIV/RPR/LYME, can't have MRI due to cochlear implant. 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 Last Neurology appointment 01/2024. Missed appointment with rheumatology 05/2024, last seen in 02/26/2024. - Pt can't have MRI due to cochlear implant. Had head CT. - continue prolixin 2.5mg po daily, 5mg po qhs. will d/c risperidone, increase prolixin 5mg po BID, back up IM. 03/05 continue tx. 03/06 This insurance underwriter sales spoke with pt's brigadier, Dr. Al obtained collateral information. Will coordinate with neurology and rheumatology once LP results are available. r/o reoccurance of pachymeningitis, lupus or other autoimmune cause for psychosis. 03/07: Continue current regimen and plans. Discontinued one-to-one and put in place 5 minute checks 03/08: Continue current plans and regimen 03/09 continue tx. 03/10: continue current mgmt. continues disorganized and psychotic. see neuro note from today. continue with neuro w/u. 03/11: given zyprexa 5 and valium [address] and head CTA. head CTA WNL, chest CT showed numerous pulmonary nodules up to 10 mm in size. no change in presentation. due to persistent requests for discharge, 3-day notice submitted on her behalf. will work toward HCP affirmation by the court. 03/12: per pulm consult, chest CT more c/w rheumatological process than CA, recommended empiric steroid course. awaiting input from neuro. consider Bx of nodules otherwise. continue current mgmt for now. 03/13: variably calm and agitated. planning for bronchoscopy with pulmonary nodule Bx on sunday. continue current mgmt. case discussed with HCP Maricruz (daughter), who is in agreement with plan. 03/14: CSF with notable findings. will f/u with neuro on sunday. stable presentation for now, remains quite psychotic. continue current mgmt. bronchoscopy sunday. 03/15: no change from yesterday in presentation or plan. 03/16: stable presentation. continues confused, wanting to go home. HCP affirmation tomorrow. continue current mgmt. 03/17: stable presdentation. bronchoscopy pending. continue current mgmt. 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 awaiting bronchoscopy. remains psychotic. continue current mgmt for now. 03/20: no change in presentation. still awaiting go-ahead for brochoscopy. continue current mgmt. 03/22: No changes. Noted above. 03/23: awaiting insurance approval for bronchoscopy. stable presentation. 03/24: as for yesterday. 03/25: loudly RIS in milieu today. bronchoscopy scheduled for sunday at 1130. NPO past MN night. stable presentation. continue current mgmt. 03/26 pt presents as more disorganized and inattentive than usual showing more signs of delirious behavior. bronchoscopy was canceled,due to shortage of needles to complete biopsy. will order cbc, cmp, ammonia levels given increase disorganized behavior and worsening attention pointing at a more delirious presentation. Review of results from LP showing negative results for meningitis panel/paraneoplastic panel (including most common antibody found in SLC which is EARL 1 which was negative), elevated protein in CSF 131 without leukocytosis, also elevated CSF/serum IgG index. elevated anti-ds dna titer 1:80. Such results may point more to a rheumatological condition than infectious condition or malignancy. Mrs. Sharif's OP brigadier, Dr. Al recommends trial of prednisone 40mg po daily at least for 2 weeks. 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 03/31 increase prolixin to 5mg po BID. continue all other medications including prednisone 40mg po daily. 04/01 discussed with her OP brigadier, Dr. Al possibility of transferring to [facility] for further tx of autoimmune condition, suspected also having lupus. continue prednisone. Spoke with daughter who is HCP, daughter concern about pt going to [facility] due to being dismissed several times when pt was first brought psychotic. 04/02 continue tx 04/03 increase prolixin to 5mg po TID. monitor EPS. 04/06 continue tx. 04/07- pending response from [facility] to see if they will take her for further evaluation of autoimmune condition with multidisciplinary team to continue see if psychosis related to autoimmune or primarily psychosis. Some improvement in attention, less guarded. continues to have auditory hallucinations. May consider switch to clozapine given that she has tried 3 antipsychotics with limited efficacy. 04/08 start clozapine 25mg po qhs. continue prolixin 7.5mg po TID. 04/09 increase clozapine to 50mg po qhs. continue prolixin 7.5mg po TID. 04/10 decrease prolixin to 7.5mg po BID. increase clozapine to 75mg po qhs. continue increasing clozapine by 25mg/day. solar energy engineer, recommends repeat CT in 2 weeks, and hold on bronchoscopy. 04/11: no change today, will titrate Clozapine further tomorrow 04/12: titrate Clozapine to 100 mg QHS 04/13 increase clozapine to 125mg po qhs. continue prolixin 7.5mg po BID. 04/14 Provided update to daughter Maricruz who is HCP in terms of pt being treated for both autoimmune condition that may be contributing to psychosis (with prednione) as well as primarily psychiatric disorder (although less likely) with clozapine. some improvement in attention, slightly less paranoid but continues to present with ongoing AH of her daughter. 04/15 continue tx. 04/16 continue tx. 04/17 start glycopyrralate for drooling, decrease cogentin. 04/17 increase clozapine 150mg po qhs, lower prolixin 2.5mg po BID. back up. 04/18: Continue current management and treatment plan. 04/19: continue current management and treatment plan. 04/20 increase clozapine to 175mg po qhs. 04/21 continue tx. 04/22 continue tx. 04/23 continue tx. will check clozapine levels. 04/[address] followed up done today- much less nodules seen. 04/27 no change in presentation, less paranoid towards staff but ongoing AH. Impaired awareness of surroundings and conversations mostly base on delusional content. Will consult as well with her OP Race Starter as to whether continue prednisone as initially recommended by rheumatology for suspected lupus, although it has had additional benefits in lung nodules. 04/28 increase clozapine 200mg po qhs. 04/[address] showed improvement in her pulmonary nodules and absence of pulmonary symptoms otherwise. recommendation to taper off prednisone slowly with repeat of chest CT in 3 months for stability of reminder of nodules. her OP brigadier did want to continue prednisone for suspected lupus, may discuss further with rheumatology if they want to continue prednisone or stop it. 04/30 continue tx. 05/01 continue tx. will check clozapine level on 05/04/2505/05 continue tx. pending clozapine levels. 05/06 continue tx. 05/07 continue tx. 05/08 continue tx. 05/09 through 05/11 no change in presentation; continue treatment plan 05/12/25: No change, slept through the night. Medication compliant. Ambulate using walker, walker next to table in dining area where patient sits. Visible in common area but not attended groups. Calm, pleasant and cooperative. No notable side effects from medication. Feeling safe here I want to be home but the weather does not allow me to go home . Last BM was yesterday. Communicate with staff via written form. 05/13/25: Visible, eating and sleeping well. Medication compliant, no side effects. Denies safety concerns, denies voices. however, she is responded to internal stimuli, self dialogues at times. No behavior issues. Pending Clozaril level. 05/14/25: Patient visible, calm, pleasant and cooperative. Medication compliant, some drooling while napping in bed. Passing gas, had BM yesterday. Report feeling tired but denies depression/anxiety. She self dialogue quietly, appear responding to internal stimuli. No behavior issues. No sleeping or appetite problems. Patient observed at some point this afternoon do some coloring art work at the table. Patient was assessed by PT team, report patient is at baseline, using walker. No further assessment needed. Potential will get the bed at [facility]. Patient educated on: diagnosis, medication risk/benefits and therapeutic strategies Informed Consent: understands and further education needed Reason for continued inpatient stay Substantial Risk for: med/psych decompensation Time Spent With Patient Time: Total time managing care of this patient today ____ minutes.
[2025-05-14 08:25] VITALS: BP 136/66; PULSE 74; RESP 18; TEMP 36.8; O2SAT 97
[2025-05-14] MEDS: levETIRAcetam Oral Soln 500 MG/5 ML 250 MG PO ×2 (09:14→20:07)
[2025-05-14] MEDS: Tiotropium Bromide 2.5 mcg 1 PUFF/2.5 MCG MIST.INHAL INHALE (09:15)
[2025-05-14] MEDS: NIFEdipine ER 30 MG TAB.ER.24 PO (09:15)
[2025-05-14] MEDS: Fluticasone/Vilanterol 200/25 BLST.W.DEV 1 PUFF INHALE (09:15)
[2025-05-14 09:16] VITALS: RESP 18; O2SAT 98
[2025-05-14] MEDS: Albuterol Sulfate 90 MCG 8 GM INHALER 2 PUFF INHALE ×2 (09:18→14:51)
--- NOTE | 2025-05-14 10:02 | PC.NURSE ---
At 0915 pt c/o SOB and wheezing and requested her Albuterol inhaler. Pt lung sounds clear, RR 16, O2 98%. Pt received her PRN Albuterol per request with good effect.
[2025-05-14 14:53] VITALS: PULSE 80; RESP 20; O2SAT 95
--- NOTE | 2025-05-14 15:19 | PC.NURSE ---
At 1449 pt c/o SOB and wheezing. Pt lung sounds clear, RR 20, O2 95%, pulse 80. Pt received requested PRN Albuterol pending effect.
[2025-05-14 17:58] LABS: Clozapine (Clozaril) 313 mcg/L
[2025-05-14 20:05] VITALS: BP 137/63; PULSE 73; RESP 16; TEMP 35.9; O2SAT 94
[2025-05-15 08:25] VITALS: BP 115/57; PULSE 64; RESP 16; TEMP 36.3; O2SAT 95
[2025-05-15] MEDS: levETIRAcetam Oral Soln 500 MG/5 ML 250 MG PO ×2 (09:18→20:07)
[2025-05-15] MEDS: Tiotropium Bromide 2.5 mcg 1 PUFF/2.5 MCG MIST.INHAL INHALE (09:19)
[2025-05-15] MEDS: Fluticasone/Vilanterol 200/25 BLST.W.DEV 1 PUFF INHALE (09:19)
[2025-05-15] MEDS: NIFEdipine ER 30 MG TAB.ER.24 PO (09:20)
--- NOTE | 2025-05-15 13:06 | HO.PSYCHPN ---
Subjective Subjective Date of Service: 05/15/25 Reason For Visit: Abnormal CT chest Subjective Notes: [place] Order and Section 8 Healthcare Proxy: Yes Medical Problems Affecting Mental Status: No Interim History: Medical record and nursing notes reviewed; case discussed during rounds with team/nursing staff, and met with patient for supportive therapy/psychoeducation, as well as medication management. Visible, slept well, no appetite issues, compliant with medications. However, patient has not shower often yesterday, per nursing patient believes there was a man in her room therefore she refused to shower yesterday. She states that she will shower later on today when staff is available to help. Reports pain on her back, legs, and joint. She good like to do some coloring after lunch. Per nursing patient has raised her voice asking for tramadol a couple of times a day for pain. Appears responding to internal stimuli, but no major issues. Medication Compliance: Yes Side effects from medications: No (some drooling) Attending Groups: Yes (independently coloring at table) Review of Systems Acute medical concerns: No Medical Review of Systems: unchanged Review of Systems Review of Systems Constitutional: Denies fatigue and Denies fever(s) Cardiovascular: Denies chest pain and Denies dyspnea Respiratory: Denies dyspnea Gastrointestinal: Denies abdominal pain Psychiatric: denies suicidal ideation Endocrine: Denies fatigue Yes all other systems are reviewed and are negative Mental Status Exam Mental Status Exam Narrative: Appearance: casual attire, adequate grooming and poor hygiene Behavior: calm, keeping to self, engagement limited by vision and hearing difficulties Orientation: alert, oriented to idea that she is in the hospital, year, month not date nor situation. Psychomotor Function: no agitation or slowing; no abnormal gestures or movements Speech: normal rate/rhythm/volume, spontaneous Mood: ok Affect: calm, non-labile Thought Process: more linear/organized. Thought Content:organized Hallucinations: AH talking to daughter who is not there. At baseline Delusions: think there is a man in her room Insight: impairment Judgment: impairment Impulsivity: none noted Diagnostics Vital Signs (24Hr): Vital Signs - 24 hr 05/14/25 14:53 05/14/25 20:05 05/15/25 08:25 Temperature 96.7 F L 97.3 F Pulse Rate 80 73 64 Respiratory Rate 20 16 16 Blood Pressure 137/63 115/57 L Pulse Oximetry 95 94 95 Oxygen Delivery Method Room Air Room Air BMI result Body Mass Index 31.9 Labs 03/29/25 08:55 03/29/25 08:55 Labs: Laboratory Results - last 48 hr 05/09/25 07:31 Clozapine 313 Norclozapine 81 Imaging Radiology Impressions: ITS Impressions Head CT 03/05/25 15:51 IMPRESSION: 1. No acute intracranial abnormality. 2. Right-sided cochlear nerve implant with associated streak artifact. 3. Right-sided canal wall up mastoidectomy. Electronically signed by: Levi Greer MD 03/05/2025 04:25 PM EDT RP Lumbar Puncture Fluoroscopy 03/09/25 11:50 IMPRESSION: Successful fluoroscopy-guided lumbar puncture performed without immediate complications Electronically signed by: Thompson Andujar MD 03/09/2025 04:06 PM EDT RP Chest CT 03/11/25 11:52 IMPRESSION: 1. Multiple bilateral pulmonary nodules measuring up to 10 mm in size. Further evaluation should be based on Fleischner Society guidelines below. 2. Cardiomegaly. Findings consistent with pulmonary arterial hypertension. 3. No evidence of mediastinal or hilar lymphadenopathy. Fleischner Criteria for pulmonary nodule follow-up SOLID NODULES: Low risk patient: <6mm: no follow-up 6-8mm: 6 month follow-up CT >8mm: PET/Biopsy/ 3 month follow-up CT High risk patient: <6mm: 12 month follow-up CT 6-8mm: 6 month follow-up CT >8mm: PET/Biopsy/ 3 month follow-up CT SUB-SOLID/GROUNDGLASS NODULES: All patients: > or = 6mm: 6 month follow-up CT *Please note that in patients in the following categories, the Fleischner criteria do not apply: Immunocompromised, lung cancer screening population, age below 35, and patients with known malignancy Electronically signed by: Best Clemons MD 03/11/2025 01:45 PM EDT RP Head CTA 03/11/25 11:52 IMPRESSION: Head CT: No acute intracranial abnormality. CT angiogram of the head: No vascular occlusions. Electronically signed by: Gypsy Salamanca MD 03/11/2025 03:02 PM EDT RP Chest CT 04/24/25 09:58 IMPRESSION: 1. Majority of the previously seen pulmonary nodules have resolved, and were consistent with infectious or inflammatory etiology. 2. There is a persistent 9 mm nodular focus in the lateral right upper lobe, which is felt to represent scarring given the appearance. To be cautious, a 3 month interval follow-up CT is recommended to ensure stability. 3. There is mild to moderate paraseptal emphysema. There is no acute pneumonic consolidation. 4. There is thickening of the small airways suggesting bronchitis. 5. There is moderate cardiac enlargement. Enlarged main pulmonary artery is consistent with pulmonary arterial hypertension. Electronically signed by: Levi Greer MD 04/24/2025 10:56 AM EDT Medications Medications Current Medications Acetaminophen (Acetaminophen 325 Mg Tablet) 650 mg PO Q6H PRN PRN Reason: Headache/Pain, Scale 1-10 Last Admin: 05/15/25 09:36 Dose: 650 mg Al Hydroxide/Mg Hydroxide (Magnesium Hydrox/Alum Hydrox 30 Ml Oral.Susp) 30 ml PO Q6H PRN PRN Reason: Heartburn/Nausea Albuterol Sulfate (Albuterol Sulfate 90 Mcg 8 Gm Inhaler) 2 puff INHALE Q4H PRN PRN Reason: Shortness Of Breath Or Wheezing Last Admin: 05/14/25 14:51 Dose: 2 puff Atorvastatin Calcium (Atorvastatin Calcium 40 Mg Tablet) 40 mg PO DAILY [facility] Last Admin: 05/15/25 09:19 Dose: 40 mg Clonazepam (Clonazepam Odt 0.5 Mg Tab.Rapdis) 0.5 mg PO BID PRN PRN Reason: severe anxiety/sleep Last Admin: 05/10/25 05:31 Dose: 0.5 mg Clozapine (Clozapine 100 Mg Tablet) 200 mg PO BEDTIME [facility] Last Admin: 05/14/25 20:07 Dose: 200 mg Fluphenazine HCl (Fluphenazine Hcl 2.5 Mg/Ml 10 Ml Vial) 2.5 mg IM BID PRN PRN Reason: give if refuses oral per HCP Last Admin: 03/05/25 09:42 Dose: 2.5 mg Fluphenazine HCl (Fluphenazine Hcl 2.5 Mg Tablet) 2.5 mg PO BID [facility] Last Admin: 05/15/25 09:19 Dose: 2.5 mg Fluticasone/Vilanterol (Fluticasone/Vilanterol 200/25 Blst.W.Dev) 1 puff INHALE DAILY [facility] Last Admin: 05/15/25 09:19 Dose: 1 puff Glycopyrrolate (Glycopyrrolate 1 Mg Tablet) 0.5 mg PO BID [facility] Last Admin: 05/15/25 09:18 Dose: 0.5 mg Hydrochlorothiazide (Hydrochlorothiazide 25 Mg Tablet) 25 mg PO DAILY [facility] Last Admin: 05/15/25 09:19 Dose: 25 mg Levetiracetam (Levetiracetam Oral Soln 500 Mg/5 Ml) 250 mg PO BID [facility] Last Admin: 05/15/25 09:18 Dose: 250 mg Magnesium Hydroxide (Milk Of Magnesia 30 Ml Oral.Susp) 30 ml PO DAILY PRN PRN Reason: Constipation Methimazole (Methimazole 5 Mg Tablet) 5 mg PO DAILY [facility] Last Admin: 05/15/25 09:19 Dose: 5 mg Naloxone HCl (Naloxone Hcl 0.4 Mg/Ml Vial) 0.04 mg IVPUSH Q5M PRN PRN Reason: Excessive sedation or RR < 8 Nifedipine (Nifedipine Er 30 Mg Tab.Er.24) 30 mg PO DAILY [facility]; Protocol Last Admin: 05/15/25 09:20 Dose: 30 mg Olanzapine (Olanzapine 10 Mg Tablet) 10 mg PO Q6H PRN PRN Reason: severe agitation Last Admin: 04/16/25 16:28 Dose: 10 mg Prednisone (Prednisone 20 Mg Tablet) 40 mg PO DAILY [facility] Last Admin: 05/15/25 11:00 Dose: 40 mg Tiotropium Gaylord (Tiotropium Gaylord 2.5 Mcg 1 Puff/2.5 Mcg Mist.Inhal) 1 puff INHALE DAILY [facility] Last Admin: 05/15/25 09:19 Dose: 1 puff Trazodone HCl (Trazodone Hcl 50 Mg Tablet) 50 mg PO BEDTIME MRX1 PRN PRN Reason: Insomnia Last Admin: 04/04/25 23:21 Dose: 50 mg Allergies Allergies Allergy/AdvReac Type Severity Reaction Status Date / Time latex Allergy Unknown Verified 03/09/25 11:50 peanut Allergy Unknown Verified 03/09/25 11:50 Penicillins Allergy Unknown Verified 03/09/25 11:50 Assessment & Plan Assessment & Plan (1) Psychosis: Status: Acute Code(s): F29 - Unspecified psychosis not due to a substance or known physiological condition Assessment and Plan: r/o autoimmune reasons for psychosis including lupus. 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 Sharif is a 69 year-old woman who presents with a 3 month hx of new onset of psychosis (AH) and combination of paranoid delusions and cap gras delusions. No prior psychiatric hx. She does have of cocaine use but apparently had not used in some years. Daughter suspects she may have relapsed but no ongoing use. Pt presents with more complex theme of delusions. No additional medical work up available including head CT. CBC and cmp unremarkable. 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 It may be related to dementia process but complexity of delusions and psychosis not the common presentation for dementia that have psychosis early on such as in vascular dementia or LBD. Pt presents as gravely disable to able to care for self due to symptoms of psychosis and delusions. 02/03 increase night time risperidone 2mg po qhs increase cogetin at bedtime to 1mg po qhs. lower daily dose to 0.5mg po daily. continue cogentin 0.5mg po daily. clonazepam as prn olanzapine as prn for agitation 02/04 continue tx. 02/05 continue tx. 02/06 continue current dose of risperidone. NOTE THAT pt can't take doses higher than 3 mg/day of risperidone as higher doses had severe EPS. can use olanzapine as well per court order. 02/07/25: Patient has been agitated yelling loudly exist seeking, delusional thinking her daughter/son outside at the door to pick her up. PRNs given in the morning with mild effect. Patient became agitated, aggressive\, assaultive to 1 of the staff on the floor, yelling and hitting her face so grabbing her neck. Physical was started at 16:31 to 1634. Patient was given IM medication of Zyprexa 10 and Valium 10 with good effect. Tomorrow plan: Patient will be benefit from Valium 10 mg twice a day and Zyprexa 5 mg 3 times a day is added into her scheduled medication as current plan with risperidone is not effective. Patient also having a backup for risperidone if she refused. 02/08/25: Slept most of the morning and last night. In better behavior control. No aggressive behavior. She is quiet, self dialogue, and medication compliant. Due to receive restrain medication yesterday. I did not make any medication change. But the Valium and additional Zyprexa appears to be helpful. 02/09 will try to change keppra to depakote for seizures as keppra may exacerbate psychosis. increase risperidone 1mg po daily and 2mg po qhs. may need to add second antipsychotic. 02/10 continues to present as paranoid with AH. at times declines oral medications, requiring IM back per court order. 02/11 continue tx. 02/12 continue tx. 02/13 continue tx. 02/14: no changes today. Monitor for agitation around confusion about hospitalization 02/15: no changes today, self dialogue more overt/extensive today 02/16 add olanzapine 5mg po qhs. continue risperidone. minimal improvement if any. 02/17 continue tx. 02/18 seems more somnolent with bedtime olanzapine, will continue to monitor. 02/19 cbc showed thrombocytopenia, which is new and suspect related to depakote 02/20 pt appears more sedated since addition of olanzapine at bedtime. She continues to self dialogue. minimal improvement. 02/21: Continue current management and treatment plan. 02/22: continue current management and treatment plan. 02/23 continue tx. may need to affirm HCP try different antipsychotic. 02/24 continue tx. results of LENORE 1:360, pattern homogenous A. 02/25 will try rexulti, lower risperidone. pending coordination of medical care to see if underlying autoimmune condition has anything to do with current presentation. 02/26 discussed with hospital transactional attorney to dismiss sect 8, HCP invoked and can consent to other treatment. daughter Maricruz give permission to try different antipsychotic. 02/27 decrease risperidone to 1mg po daily, start prolixin 2.5mg po qhs, then increase to BID. continue olanzapine prn for agitation. olanzapine as well per court order. 03/03 pt seen by neurology, added HIV/RPR/LYME, can't have MRI due to cochlear implant. 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 Last Neurology appointment 01/2024. Missed appointment with rheumatology 05/2024, last seen in 02/26/2024. - Pt can't have MRI due to cochlear implant. Had head CT. - continue prolixin 2.5mg po daily, 5mg po qhs. will d/c risperidone, increase prolixin 5mg po BID, back up IM. 03/05 continue tx. 03/06 This telegraphic typewriter mechanic spoke with pt's speech language assistant, Dr. Al obtained collateral information. Will coordinate with neurology and rheumatology once LP results are available. r/o reoccurance of pachymeningitis, lupus or other autoimmune cause for psychosis. 03/07: Continue current regimen and plans. Discontinued one-to-one and put in place 5 minute checks 03/08: Continue current plans and regimen 03/09 continue tx. 03/10: continue current mgmt. continues disorganized and psychotic. see neuro note from today. continue with neuro w/u. 03/11: given zyprexa 5 and valium [address] and head CTA. head CTA WNL, chest CT showed numerous pulmonary nodules up to 10 mm in size. no change in presentation. due to persistent requests for discharge, 3-day notice submitted on her behalf. will work toward HCP affirmation by the court. 03/12: per pulm consult, chest CT more c/w rheumatological process than CA, recommended empiric steroid course. awaiting input from neuro. consider Bx of nodules otherwise. continue current mgmt for now. 03/13: variably calm and agitated. planning for bronchoscopy with pulmonary nodule Bx on sunday. continue current mgmt. case discussed with HCP Maricruz (daughter), who is in agreement with plan. 03/14: CSF with notable findings. will f/u with neuro on sunday. stable presentation for now, remains quite psychotic. continue current mgmt. bronchoscopy sunday. 03/15: no change from yesterday in presentation or plan. 03/16: stable presentation. continues confused, wanting to go home. HCP affirmation tomorrow. continue current mgmt. 03/17: stable presdentation. bronchoscopy pending. continue current mgmt. 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 awaiting bronchoscopy. remains psychotic. continue current mgmt for now. 03/20: no change in presentation. still awaiting go-ahead for brochoscopy. continue current mgmt. 03/22: No changes. Noted above. 03/23: awaiting insurance approval for bronchoscopy. stable presentation. 03/24: as for yesterday. 03/25: loudly RIS in milieu today. bronchoscopy scheduled for sunday at 1130. NPO past MN night. stable presentation. continue current mgmt. 03/26 pt presents as more disorganized and inattentive than usual showing more signs of delirious behavior. bronchoscopy was canceled,due to shortage of needles to complete biopsy. will order cbc, cmp, ammonia levels given increase disorganized behavior and worsening attention pointing at a more delirious presentation. Review of results from LP showing negative results for meningitis panel/paraneoplastic panel (including most common antibody found in [facility] which is EARL 1 which was negative), elevated protein in CSF 131 without leukocytosis, also elevated CSF/serum IgG index. elevated anti-ds dna titer 1:80. Such results may point more to a rheumatological condition than infectious condition or malignancy. Mrs. Sharif's OP speech language assistant, Dr. Al recommends trial of prednisone 40mg po daily at least for 2 weeks. 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 03/31 increase prolixin to 5mg po BID. continue all other medications including prednisone 40mg po daily. 04/01 discussed with her OP speech language assistant, Dr. Al possibility of transferring to [facility] for further tx of autoimmune condition, suspected also having lupus. continue prednisone. Spoke with daughter who is HCP, daughter concern about pt going to [facility] due to being dismissed several times when pt was first brought psychotic. 04/02 continue tx 04/03 increase prolixin to 5mg po TID. monitor EPS. 04/06 continue tx. 04/07- pending response from [facility] to see if they will take her for further evaluation of autoimmune condition with multidisciplinary team to continue see if psychosis related to autoimmune or primarily psychosis. Some improvement in attention, less guarded. continues to have auditory hallucinations. May consider switch to clozapine given that she has tried 3 antipsychotics with limited efficacy. 04/08 start clozapine 25mg po qhs. continue prolixin 7.5mg po TID. 04/09 increase clozapine to 50mg po qhs. continue prolixin 7.5mg po TID. 04/10 decrease prolixin to 7.5mg po BID. increase clozapine to 75mg po qhs. continue increasing clozapine by 25mg/day. brand recorder, recommends repeat CT in 2 weeks, and hold on bronchoscopy. 04/11: no change today, will titrate Clozapine further tomorrow 04/12: titrate Clozapine to 100 mg QHS 04/13 increase clozapine to 125mg po qhs. continue prolixin 7.5mg po BID. 04/14 Provided update to daughter Maricruz who is HCP in terms of pt being treated for both autoimmune condition that may be contributing to psychosis (with prednione) as well as primarily psychiatric disorder (although less likely) with clozapine. some improvement in attention, slightly less paranoid but continues to present with ongoing AH of her daughter. 04/15 continue tx. 04/16 continue tx. 04/17 start glycopyrralate for drooling, decrease cogentin. 04/17 increase clozapine 150mg po qhs, lower prolixin 2.5mg po BID. back up. 04/18: Continue current management and treatment plan. 04/19: continue current management and treatment plan. 04/20 increase clozapine to 175mg po qhs. 04/21 continue tx. 04/22 continue tx. 04/23 continue tx. will check clozapine levels. 04/[address] followed up done today- much less nodules seen. 04/27 no change in presentation, less paranoid towards staff but ongoing AH. Impaired awareness of surroundings and conversations mostly base on delusional content. Will consult as well with her OP Mysql Database Administrator as to whether continue prednisone as initially recommended by rheumatology for suspected lupus, although it has had additional benefits in lung nodules. 04/28 increase clozapine 200mg po qhs. 04/[address] showed improvement in her pulmonary nodules and absence of pulmonary symptoms otherwise. recommendation to taper off prednisone slowly with repeat of chest CT in 3 months for stability of reminder of nodules. her OP speech language assistant did want to continue prednisone for suspected lupus, may discuss further with rheumatology if they want to continue prednisone or stop it. 04/30 continue tx. 05/01 continue tx. will check clozapine level on 05/04/2505/05 continue tx. pending clozapine levels. 05/06 continue tx. 05/07 continue tx. 05/08 continue tx. 05/09 through 05/11 no change in presentation; continue treatment plan 05/12/25: No change, slept through the night. Medication compliant. Ambulate using walker, walker next to table in dining area where patient sits. Visible in common area but not attended groups. Calm, pleasant and cooperative. No notable side effects from medication. Feeling safe here I want to be home but the weather does not allow me to go home . Last BM was yesterday. Communicate with staff via written form. 05/13/25: Visible, eating and sleeping well. Medication compliant, no side effects. Denies safety concerns, denies voices. however, she is responded to internal stimuli, self dialogues at times. No behavior issues. Pending Clozaril level. 05/14/25: Patient visible, calm, pleasant and cooperative. Medication compliant, some drooling while napping in bed. Passing gas, had BM yesterday. Report feeling tired but denies depression/anxiety. She self dialogue quietly, appear responding to internal stimuli. No behavior issues. No sleeping or appetite problems. Patient observed at some point this afternoon do some coloring art work at the table. Patient was assessed by PT team, report patient is at baseline, using walker. No further assessment needed. Potential will get the bed at [facility]. 05/15/25: Visible, slept well, no appetite issues, compliant with medications. However, patient has not shower often yesterday, per nursing patient believes there was a man in her room therefore she refused to shower yesterday. She states that she will shower later on today when staff is available to help. Reports pain on her back, legs, and joint. She good like to do some coloring after lunch. Per nursing patient has raised her voice asking for tramadol a couple of times a day for pain. Appears responding to internal stimuli, but no major issues. Clazapine 313. Norclozapine 81 Therapeutic. Patient educated on: medication risk/benefits and therapeutic strategies Informed Consent: further education needed Reason for continued inpatient stay Substantial Risk for: med/psych decompensation Time Spent With Patient Time: Total time managing care of this patient today ____ minutes.
[2025-05-15 20:05] VITALS: BP 103/50; PULSE 82; RESP 16; TEMP 36.6; O2SAT 96
[2025-05-16 07:16] LABS: Neut%MD 63.6 %; WBCANC 9.8 X10*3/uL
[2025-05-16 08:00] VITALS: BP 127/64; PULSE 70; RESP 16; TEMP 36.3; O2SAT 96
[2025-05-16] MEDS: levETIRAcetam Oral Soln 500 MG/5 ML 250 MG PO ×2 (08:04→20:31)
[2025-05-16] MEDS: Fluticasone/Vilanterol 200/25 BLST.W.DEV 1 PUFF INHALE (08:04)
[2025-05-16] MEDS: Tiotropium Bromide 2.5 mcg 1 PUFF/2.5 MCG MIST.INHAL INHALE (08:04)
[2025-05-16 08:05] VITALS: BP 127/64
[2025-05-16 08:06] VITALS: BP 127/64
[2025-05-16] MEDS: NIFEdipine ER 30 MG TAB.ER.24 PO (08:06)
[2025-05-16 19:57] VITALS: BP 137/65; PULSE 76; TEMP 36.4; O2SAT 94
--- NOTE | 2025-05-16 20:31 | HO.PSYCHPN ---
Subjective Subjective Date of Service: 05/16/25 Reason For Visit: Abnormal CT chest Subjective Notes: [place] Order and Section 8 Healthcare Proxy: Yes Guardianship: Yes Medical Problems Affecting Mental Status: No Interim History: Medical record and nursing notes reviewed; case discussed during rounds with team/nursing staff, and met with patient for supportive therapy/psychoeducation, as well as medication management. Patient slept well, no issue with appetite, compliant with medications. Calm, pleasant and cooperative. No behavior issues. Ambulate using a walker. Patient told other peers who on the table in dining area that she talks to herself and out loud because bug in her ear. Patient appeared responding to internal stimuli at baseline. Medication Compliance: Yes Side effects from medications: No (except for drooling while sleeping) Attending Groups: No (but visible in common area) Review of Systems Acute medical concerns: No Medical Review of Systems: unchanged Review of Systems Review of Systems Constitutional: Denies fatigue and Denies fever(s) Cardiovascular: Denies chest pain and Denies dyspnea Respiratory: Denies dyspnea Gastrointestinal: Denies abdominal pain Psychiatric: denies suicidal ideation Endocrine: Denies fatigue Yes all other systems are reviewed and are negative Mental Status Exam Mental Status Exam Narrative: Appearance: casual attire, adequate grooming and poor hygiene Behavior: calm, keeping to self, engagement limited by vision and hearing difficulties Orientation: alert, oriented to idea that she is in the hospital, year, month not date nor situation. Psychomotor Function: no agitation or slowing; no abnormal gestures or movements Speech: normal rate/rhythm/volume, spontaneous Mood: ok Affect: calm, non-labile Thought Process: more linear/organized. Thought Content:organized Hallucinations: AH talking to daughter who is not there. At baseline Delusions: think there is a man in her room Insight: impairment Judgment: impairment Impulsivity: none noted Diagnostics Vital Signs (24Hr): Vital Signs - 24 hr 05/16/25 08:00 05/16/25 08:05 05/16/25 08:06 Temperature 97.3 F Pulse Rate 70 Respiratory Rate 16 Blood Pressure 127/64 127/64 127/64 Pulse Oximetry 96 Oxygen Delivery Method Room Air 05/16/25 19:57 Temperature 97.6 F Pulse Rate 76 Respiratory Rate Blood Pressure 137/65 Pulse Oximetry 94 Oxygen Delivery Method Room Air BMI result Body Mass Index 31.9 Labs 03/29/25 08:55 03/29/25 08:55 Labs: Laboratory Results - last 48 hr 05/16/25 07:07 Absolute Neuts (auto) 6.2 Imaging Radiology Impressions: ITS Impressions Head CT 03/05/25 15:51 IMPRESSION: 1. No acute intracranial abnormality. 2. Right-sided cochlear nerve implant with associated streak artifact. 3. Right-sided canal wall up mastoidectomy. Electronically signed by: Levi Greer MD 03/05/2025 04:25 PM EDT RP Lumbar Puncture Fluoroscopy 03/09/25 11:50 IMPRESSION: Successful fluoroscopy-guided lumbar puncture performed without immediate complications Electronically signed by: Thompson Andujar MD 03/09/2025 04:06 PM EDT RP Chest CT 03/11/25 11:52 IMPRESSION: 1. Multiple bilateral pulmonary nodules measuring up to 10 mm in size. Further evaluation should be based on Fleischner Society guidelines below. 2. Cardiomegaly. Findings consistent with pulmonary arterial hypertension. 3. No evidence of mediastinal or hilar lymphadenopathy. Fleischner Criteria for pulmonary nodule follow-up SOLID NODULES: Low risk patient: <6mm: no follow-up 6-8mm: 6 month follow-up CT >8mm: PET/Biopsy/ 3 month follow-up CT High risk patient: <6mm: 12 month follow-up CT 6-8mm: 6 month follow-up CT >8mm: PET/Biopsy/ 3 month follow-up CT SUB-SOLID/GROUNDGLASS NODULES: All patients: > or = 6mm: 6 month follow-up CT *Please note that in patients in the following categories, the Fleischner criteria do not apply: Immunocompromised, lung cancer screening population, age below 35, and patients with known malignancy Electronically signed by: Best Clemons MD 03/11/2025 01:45 PM EDT RP Head CTA 03/11/25 11:52 IMPRESSION: Head CT: No acute intracranial abnormality. CT angiogram of the head: No vascular occlusions. Electronically signed by: Gypsy Salamanca MD 03/11/2025 03:02 PM EDT RP Chest CT 04/24/25 09:58 IMPRESSION: 1. Majority of the previously seen pulmonary nodules have resolved, and were consistent with infectious or inflammatory etiology. 2. There is a persistent 9 mm nodular focus in the lateral right upper lobe, which is felt to represent scarring given the appearance. To be cautious, a 3 month interval follow-up CT is recommended to ensure stability. 3. There is mild to moderate paraseptal emphysema. There is no acute pneumonic consolidation. 4. There is thickening of the small airways suggesting bronchitis. 5. There is moderate cardiac enlargement. Enlarged main pulmonary artery is consistent with pulmonary arterial hypertension. Electronically signed by: Levi Greer MD 04/24/2025 10:56 AM EDT RP Medications Medications Current Medications Acetaminophen (Acetaminophen 325 Mg Tablet) 650 mg PO Q6H PRN PRN Reason: Headache/Pain, Scale 1-10 Last Admin: 05/15/25 09:36 Dose: 650 mg Al Hydroxide/Mg Hydroxide (Magnesium Hydrox/Alum Hydrox 30 Ml Oral.Susp) 30 ml PO Q6H PRN PRN Reason: Heartburn/Nausea Albuterol Sulfate (Albuterol Sulfate 90 Mcg 8 Gm Inhaler) 2 puff INHALE Q4H PRN PRN Reason: Shortness Of Breath Or Wheezing Last Admin: 05/14/25 14:51 Dose: 2 puff Atorvastatin Calcium (Atorvastatin Calcium 40 Mg Tablet) 40 mg PO DAILY [facility] Last Admin: 05/16/25 08:05 Dose: 40 mg Clonazepam (Clonazepam Odt 0.5 Mg Tab.Rapdis) 0.5 mg PO BID PRN PRN Reason: severe anxiety/sleep Last Admin: 05/10/25 05:31 Dose: 0.5 mg Clozapine (Clozapine 100 Mg Tablet) 200 mg PO BEDTIME [facility] Last Admin: 05/15/25 20:07 Dose: 200 mg Fluphenazine HCl (Fluphenazine Hcl 2.5 Mg/Ml 10 Ml Vial) 2.5 mg IM BID PRN PRN Reason: give if refuses oral per HCP Last Admin: 03/05/25 09:42 Dose: 2.5 mg Fluphenazine HCl (Fluphenazine Hcl 2.5 Mg Tablet) 2.5 mg PO BID [facility] Last Admin: 05/16/25 08:06 Dose: 2.5 mg Fluticasone/Vilanterol (Fluticasone/Vilanterol 200/25 Blst.W.Dev) 1 puff INHALE DAILY [facility] Last Admin: 05/16/25 08:04 Dose: 1 puff Glycopyrrolate (Glycopyrrolate 1 Mg Tablet) 0.5 mg PO BID [facility] Last Admin: 05/16/25 08:06 Dose: 0.5 mg Hydrochlorothiazide (Hydrochlorothiazide 25 Mg Tablet) 25 mg PO DAILY [facility] Last Admin: 05/16/25 08:05 Dose: 25 mg Levetiracetam (Levetiracetam Oral Soln 500 Mg/5 Ml) 250 mg PO BID [facility] Last Admin: 05/16/25 08:04 Dose: 250 mg Magnesium Hydroxide (Milk Of Magnesia 30 Ml Oral.Susp) 30 ml PO DAILY PRN PRN Reason: Constipation Methimazole (Methimazole 5 Mg Tablet) 5 mg PO DAILY [facility] Last Admin: 05/16/25 08:06 Dose: 5 mg Naloxone HCl (Naloxone Hcl 0.4 Mg/Ml Vial) 0.04 mg IVPUSH Q5M PRN PRN Reason: Excessive sedation or RR < 8 Nifedipine (Nifedipine Er 30 Mg Tab.Er.24) 30 mg PO DAILY [facility]; Protocol Last Admin: 05/16/25 08:06 Dose: 30 mg Olanzapine (Olanzapine 10 Mg Tablet) 10 mg PO Q6H PRN PRN Reason: severe agitation Last Admin: 04/16/25 16:28 Dose: 10 mg Prednisone (Prednisone 20 Mg Tablet) 40 mg PO DAILY [facility] Last Admin: 05/16/25 08:05 Dose: 40 mg Tiotropium [place] (Tiotropium [place] 2.5 Mcg 1 Puff/2.5 Mcg Mist.Inhal) 1 puff INHALE DAILY [facility] Last Admin: 05/16/25 08:04 Dose: 1 puff Trazodone HCl (Trazodone Hcl 50 Mg Tablet) 50 mg PO BEDTIME MRX1 PRN PRN Reason: Insomnia Last Admin: 04/04/25 23:21 Dose: 50 mg Allergies Allergies Allergy/AdvReac Type Severity Reaction Status Date / Time latex Allergy Unknown Verified 03/09/25 11:50 peanut Allergy Unknown Verified 03/09/25 11:50 Penicillins Allergy Unknown Verified 03/09/25 11:50 Assessment & Plan Assessment & Plan (1) Psychosis: Status: Acute Code(s): F29 - Unspecified psychosis not due to a substance or known physiological condition Assessment and Plan: r/o autoimmune reasons for psychosis including lupus. 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 Sharif is a 69 year-old woman who presents with a 3 month hx of new onset of psychosis (AH) and combination of paranoid delusions and cap gras delusions. No prior psychiatric hx. She does have of cocaine use but apparently had not used in some years. Daughter suspects she may have relapsed but no ongoing use. Pt presents with more complex theme of delusions. No additional medical work up available including head CT. CBC and cmp unremarkable. 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 It may be related to dementia process but complexity of delusions and psychosis not the common presentation for dementia that have psychosis early on such as in vascular dementia or LBD. Pt presents as gravely disable to able to care for self due to symptoms of psychosis and delusions. 02/03 increase night time risperidone 2mg po qhs increase cogetin at bedtime to 1mg po qhs. lower daily dose to 0.5mg po daily. continue cogentin 0.5mg po daily. clonazepam as prn olanzapine as prn for agitation 02/04 continue tx. 02/05 continue tx. 02/06 continue current dose of risperidone. NOTE THAT pt can't take doses higher than 3 mg/day of risperidone as higher doses had severe EPS. can use olanzapine as well per court order. 02/07/25: Patient has been agitated yelling loudly exist seeking, delusional thinking her daughter/son outside at the door to pick her up. PRNs given in the morning with mild effect. Patient became agitated, aggressive\, assaultive to 1 of the staff on the floor, yelling and hitting her face so grabbing her neck. Physical was started at 16:31 to 1634. Patient was given IM medication of Zyprexa 10 and Valium 10 with good effect. Tomorrow plan: Patient will be benefit from Valium 10 mg twice a day and Zyprexa 5 mg 3 times a day is added into her scheduled medication as current plan with risperidone is not effective. Patient also having a backup for risperidone if she refused. 02/08/25: Slept most of the morning and last night. In better behavior control. No aggressive behavior. She is quiet, self dialogue, and medication compliant. Due to receive restrain medication yesterday. I did not make any medication change. But the Valium and additional Zyprexa appears to be helpful. 02/09 will try to change keppra to depakote for seizures as keppra may exacerbate psychosis. increase risperidone 1mg po daily and 2mg po qhs. may need to add second antipsychotic. 02/10 continues to present as paranoid with AH. at times declines oral medications, requiring IM back per court order. 02/11 continue tx. 02/12 continue tx. 02/13 continue tx. 02/14: no changes today. Monitor for agitation around confusion about hospitalization 02/15: no changes today, self dialogue more overt/extensive today 02/16 add olanzapine 5mg po qhs. continue risperidone. minimal improvement if any. 02/17 continue tx. 02/18 seems more somnolent with bedtime olanzapine, will continue to monitor. 02/19 cbc showed thrombocytopenia, which is new and suspect related to depakote 02/20 pt appears more sedated since addition of olanzapine at bedtime. She continues to self dialogue. minimal improvement. 02/21: Continue current management and treatment plan. 02/22: continue current management and treatment plan. 02/23 continue tx. may need to affirm HCP try different antipsychotic. 02/24 continue tx. results of LENORE 1:360, pattern homogenous A. 02/25 will try rexulti, lower risperidone. pending coordination of medical care to see if underlying autoimmune condition has anything to do with current presentation. 02/26 discussed with hospital flight attendant/inflight supervisor to dismiss sect 8, HCP invoked and can consent to other treatment. daughter Maricruz give permission to try different antipsychotic. 02/27 decrease risperidone to 1mg po daily, start prolixin 2.5mg po qhs, then increase to BID. continue olanzapine prn for agitation. olanzapine as well per court order. 03/03 pt seen by neurology, added HIV/RPR/LYME, can't have MRI due to cochlear implant. 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 Last Neurology appointment 01/2024. Missed appointment with rheumatology 05/2024, last seen in 02/26/2024. - Pt can't have MRI due to cochlear implant. Had head CT. - continue prolixin 2.5mg po daily, 5mg po qhs. will d/c risperidone, increase prolixin 5mg po BID, back up IM. 03/05 continue tx. 03/06 This continuity writer spoke with pt's sr community manager, Dr. Al obtained collateral information. Will coordinate with neurology and rheumatology once LP results are available. r/o reoccurance of pachymeningitis, lupus or other autoimmune cause for psychosis. 03/07: Continue current regimen and plans. Discontinued one-to-one and put in place 5 minute checks 03/08: Continue current plans and regimen 03/09 continue tx. 03/10: continue current mgmt. continues disorganized and psychotic. see neuro note from today. continue with neuro w/u. 03/11: given zyprexa 5 and valium [address] and head CTA. head CTA WNL, chest CT showed numerous pulmonary nodules up to 10 mm in size. no change in presentation. due to persistent requests for discharge, 3-day notice submitted on her behalf. will work toward HCP affirmation by the court. 03/12: per pulm consult, chest CT more c/w rheumatological process than CA, recommended empiric steroid course. awaiting input from neuro. consider Bx of nodules otherwise. continue current mgmt for now. 03/13: variably calm and agitated. planning for bronchoscopy with pulmonary nodule Bx on sunday. continue current mgmt. case discussed with HCP Maricruz (daughter), who is in agreement with plan. 03/14: CSF with notable findings. will f/u with neuro on sunday. stable presentation for now, remains quite psychotic. continue current mgmt. bronchoscopy sunday. 03/15: no change from yesterday in presentation or plan. 03/16: stable presentation. continues confused, wanting to go home. HCP affirmation tomorrow. continue current mgmt. 03/17: stable presdentation. bronchoscopy pending. continue current mgmt. 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 awaiting bronchoscopy. remains psychotic. continue current mgmt for now. 03/20: no change in presentation. still awaiting go-ahead for brochoscopy. continue current mgmt. 03/22: No changes. Noted above. 03/23: awaiting insurance approval for bronchoscopy. stable presentation. 03/24: as for yesterday. 03/25: loudly RIS in milieu today. bronchoscopy scheduled for sunday at 1130. NPO past MN night. stable presentation. continue current mgmt. 03/26 pt presents as more disorganized and inattentive than usual showing more signs of delirious behavior. bronchoscopy was canceled,due to shortage of needles to complete biopsy. will order cbc, cmp, ammonia levels given increase disorganized behavior and worsening attention pointing at a more delirious presentation. Review of results from LP showing negative results for meningitis panel/paraneoplastic panel (including most common antibody found in S[facility] which is EARL 1 which was negative), elevated protein in CSF 131 without leukocytosis, also elevated CSF/serum IgG index. elevated anti-ds dna titer 1:80. Such results may point more to a rheumatological condition than infectious condition or malignancy. Mrs. Sharif's OP sr community manager, Dr. Al recommends trial of prednisone 40mg po daily at least for 2 weeks. 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 03/31 increase prolixin to 5mg po BID. continue all other medications including prednisone 40mg po daily. 04/01 discussed with her OP sr community manager, Dr. Al possibility of transferring to [facility] for further tx of autoimmune condition, suspected also having lupus. continue prednisone. Spoke with daughter who is HCP, daughter concern about pt going to [facility] due to being dismissed several times when pt was first brought psychotic. 04/02 continue tx 04/03 increase prolixin to 5mg po TID. monitor EPS. 04/06 continue tx. 04/07- pending response from [facility] to see if they will take her for further evaluation of autoimmune condition with multidisciplinary team to continue see if psychosis related to autoimmune or primarily psychosis. Some improvement in attention, less guarded. continues to have auditory hallucinations. May consider switch to clozapine given that she has tried 3 antipsychotics with limited efficacy. 04/08 start clozapine 25mg po qhs. continue prolixin 7.5mg po TID. 04/09 increase clozapine to 50mg po qhs. continue prolixin 7.5mg po TID. 04/10 decrease prolixin to 7.5mg po BID. increase clozapine to 75mg po qhs. continue increasing clozapine by 25mg/day. x ray service engineer, recommends repeat CT in 2 weeks, and hold on bronchoscopy. 04/11: no change today, will titrate Clozapine further tomorrow 04/12: titrate Clozapine to 100 mg QHS 04/13 increase clozapine to 125mg po qhs. continue prolixin 7.5mg po BID. 04/14 Provided update to daughter Maricruz who is HCP in terms of pt being treated for both autoimmune condition that may be contributing to psychosis (with prednione) as well as primarily psychiatric disorder (although less likely) with clozapine. some improvement in attention, slightly less paranoid but continues to present with ongoing AH of her daughter. 04/15 continue tx. 04/16 continue tx. 04/17 start glycopyrralate for drooling, decrease cogentin. 04/17 increase clozapine 150mg po qhs, lower prolixin 2.5mg po BID. back up. 04/18: Continue current management and treatment plan. 04/19: continue current management and treatment plan. 04/20 increase clozapine to 175mg po qhs. 04/21 continue tx. 04/22 continue tx. 04/23 continue tx. will check clozapine levels. 04/[address] followed up done today- much less nodules seen. 04/27 no change in presentation, less paranoid towards staff but ongoing AH. Impaired awareness of surroundings and conversations mostly base on delusional content. Will consult as well with her OP Licensed Mental Health Professional as to whether continue prednisone as initially recommended by rheumatology for suspected lupus, although it has had additional benefits in lung nodules. 04/28 increase clozapine 200mg po qhs. 04/[address] showed improvement in her pulmonary nodules and absence of pulmonary symptoms otherwise. recommendation to taper off prednisone slowly with repeat of chest CT in 3 months for stability of reminder of nodules. her OP sr community manager did want to continue prednisone for suspected lupus, may discuss further with rheumatology if they want to continue prednisone or stop it. 04/30 continue tx. 05/01 continue tx. will check clozapine level on 05/04/2505/05 continue tx. pending clozapine levels. 05/06 continue tx. 05/07 continue tx. 05/08 continue tx. 05/09 through 05/11 no change in presentation; continue treatment plan 05/12/25: No change, slept through the night. Medication compliant. Ambulate using walker, walker next to table in dining area where patient sits. Visible in common area but not attended groups. Calm, pleasant and cooperative. No notable side effects from medication. Feeling safe here I want to be home but the weather does not allow me to go home . Last BM was yesterday. Communicate with staff via written form. 05/13/25: Visible, eating and sleeping well. Medication compliant, no side effects. Denies safety concerns, denies voices. however, she is responded to internal stimuli, self dialogues at times. No behavior issues. Pending Clozaril level. 05/14/25: Patient visible, calm, pleasant and cooperative. Medication compliant, some drooling while napping in bed. Passing gas, had BM yesterday. Report feeling tired but denies depression/anxiety. She self dialogue quietly, appear responding to internal stimuli. No behavior issues. No sleeping or appetite problems. Patient observed at some point this afternoon do some coloring art work at the table. Patient was assessed by PT team, report patient is at baseline, using walker. No further assessment needed. Potential will get the bed at [facility]. 05/15/25: Visible, slept well, no appetite issues, compliant with medications. However, patient has not shower often yesterday, per nursing patient believes there was a man in her room therefore she refused to shower yesterday. She states that she will shower later on today when staff is available to help. Reports pain on her back, legs, and joint. She good like to do some coloring after lunch. Per nursing patient has raised her voice asking for tramadol a couple of times a day for pain. Appears responding to internal stimuli, but no major issues. Clazapine 313. Norclozapine 81 Therapeutic. 05/16/25: Patient slept well, no issue with appetite, compliant with medications. Calm, pleasant and cooperative. No behavior issues. Ambulate using a walker. Patient told other peers who on the table in dining area that she talks to herself and out loud because bug in her ear. Patient appeared responding to internal stimuli at baseline. Patient educated on: medication risk/benefits and therapeutic strategies Informed Consent: understands and further education needed Reason for continued inpatient stay Substantial Risk for: med/psych decompensation Time Spent With Patient Time: Total time managing care of this patient today ____ minutes.
[2025-05-17 08:00] VITALS: BP 145/69; PULSE 62; RESP 16; TEMP 36.5; O2SAT 96
[2025-05-17] MEDS: Tiotropium Bromide 2.5 mcg 1 PUFF/2.5 MCG MIST.INHAL INHALE (08:48)
[2025-05-17 08:49] VITALS: BP 145/69
[2025-05-17] MEDS: Fluticasone/Vilanterol 200/25 BLST.W.DEV 1 PUFF INHALE (08:49)
[2025-05-17] MEDS: NIFEdipine ER 30 MG TAB.ER.24 PO (08:49)
[2025-05-17] MEDS: levETIRAcetam Oral Soln 500 MG/5 ML 250 MG PO ×2 (08:49→20:16)
--- NOTE | 2025-05-17 13:54 | P.PNPSI_ITS ---
Subjective Subjective Date of Service: 05/17/25 Reason For Visit: Abnormal CT chest Subjective Notes: [place] Order and Section 8 Healthcare Proxy: Yes Guardianship: Yes Medical Problems Affecting Mental Status: No Interim History: Medical record and nursing notes reviewed; case discussed during rounds with team/nursing staff, and met with patient for supportive therapy/psychoeducation, as well as medication management. No issue with sleep or appetite, compliant with medications, visible in common areas at times, mostly required but self dialogue and responding to internal stimuli at times in a quiet way. Patient asked for toilet tree to shower and brush her teeth. Given Tylenol for mild pain with good effect. Medication Compliance: Yes Side effects from medications: No Attending Groups: No Review of Systems Acute medical concerns: No Medical Review of Systems: unchanged Review of Systems Review of Systems Constitutional: Denies fatigue and Denies fever(s) Cardiovascular: Denies chest pain and Denies dyspnea Respiratory: Denies dyspnea Gastrointestinal: Denies abdominal pain Psychiatric: denies suicidal ideation Endocrine: Denies fatigue Yes all other systems are reviewed and are negative Mental Status Exam Mental Status Exam Narrative: Appearance: casual attire, adequate grooming and poor hygiene Behavior: calm, keeping to self, engagement limited by vision and hearing difficulties Orientation: alert, oriented to idea that she is in the hospital, year, month not date nor situation. Psychomotor Function: no agitation or slowing; no abnormal gestures or movements Speech: normal rate/rhythm/volume, spontaneous Mood: ok Affect: calm, non-labile Thought Process: more linear/organized. Thought Content:organized Hallucinations: AH talking to daughter who is not there. At baseline Delusions: think there is a man in her room Insight: impairment Judgment: impairment Impulsivity: none noted Diagnostics Vital Signs (24Hr): Vital Signs - 24 hr 05/16/25 19:57 05/17/25 08:00 05/17/25 08:49 Temperature 97.6 F 97.7 F Pulse Rate 76 62 Respiratory Rate 16 Blood Pressure 137/65 145/69 H 145/69 H Pulse Oximetry 94 96 Oxygen Delivery Method Room Air Room Air 05/17/25 08:49 Temperature Pulse Rate Respiratory Rate Blood Pressure 145/69 H Pulse Oximetry Oxygen Delivery Method BMI result Body Mass Index 31.9 Labs 03/29/25 08:55 03/29/25 08:55 Labs: Laboratory Results - last 48 hr 05/16/25 07:07 Absolute Neuts (auto) 6.2 Imaging Radiology Impressions: ITS Impressions Head CT 03/05/25 15:51 IMPRESSION: 1. No acute intracranial abnormality. 2. Right-sided cochlear nerve implant with associated streak artifact. 3. Right-sided canal wall up mastoidectomy. Electronically signed by: Levi Greer MD 03/05/2025 04:25 PM EDT RP Lumbar Puncture Fluoroscopy 03/09/25 11:50 IMPRESSION: Successful fluoroscopy-guided lumbar puncture performed without immediate complications Electronically signed by: Thompson Andujar MD 03/09/2025 04:06 PM EDT RP Chest CT 03/11/25 11:52 IMPRESSION: 1. Multiple bilateral pulmonary nodules measuring up to 10 mm in size. Further evaluation should be based on Fleischner Society guidelines below. 2. Cardiomegaly. Findings consistent with pulmonary arterial hypertension. 3. No evidence of mediastinal or hilar lymphadenopathy. Fleischner Criteria for pulmonary nodule follow-up SOLID NODULES: Low risk patient: <6mm: no follow-up 6-8mm: 6 month follow-up CT >8mm: PET/Biopsy/ 3 month follow-up CT High risk patient: <6mm: 12 month follow-up CT 6-8mm: 6 month follow-up CT >8mm: PET/Biopsy/ 3 month follow-up CT SUB-SOLID/GROUNDGLASS NODULES: All patients: > or = 6mm: 6 month follow-up CT *Please note that in patients in the following categories, the Fleischner criteria do not apply: Immunocompromised, lung cancer screening population, age below 35, and patients with known malignancy Electronically signed by: Best Clemons MD 03/11/2025 01:45 PM EDT RP Head CTA 03/11/25 11:52 IMPRESSION: Head CT: No acute intracranial abnormality. CT angiogram of the head: No vascular occlusions. Electronically signed by: Gypsy Salamanca MD 03/11/2025 03:02 PM EDT RP Chest CT 04/24/25 09:58 IMPRESSION: 1. Majority of the previously seen pulmonary nodules have resolved, and were consistent with infectious or inflammatory etiology. 2. There is a persistent 9 mm nodular focus in the lateral right upper lobe, which is felt to represent scarring given the appearance. To be cautious, a 3 month interval follow-up CT is recommended to ensure stability. 3. There is mild to moderate paraseptal emphysema. There is no acute pneumonic consolidation. 4. There is thickening of the small airways suggesting bronchitis. 5. There is moderate cardiac enlargement. Enlarged main pulmonary artery is consistent with pulmonary arterial hypertension. Electronically signed by: Levi Greer MD 04/24/2025 10:56 AM EDT Medications Medications Current Medications Acetaminophen (Acetaminophen 325 Mg Tablet) 650 mg PO Q6H PRN PRN Reason: Headache/Pain, Scale 1-10 Last Admin: 05/17/25 08:56 Dose: 650 mg Al Hydroxide/Mg Hydroxide (Magnesium Hydrox/Alum Hydrox 30 Ml Oral.Susp) 30 ml PO Q6H PRN PRN Reason: Heartburn/Nausea Albuterol Sulfate (Albuterol Sulfate 90 Mcg 8 Gm Inhaler) 2 puff INHALE Q4H PRN PRN Reason: Shortness Of Breath Or Wheezing Last Admin: 05/14/25 14:51 Dose: 2 puff Atorvastatin Calcium (Atorvastatin Calcium 40 Mg Tablet) 40 mg PO DAILY [facility] Last Admin: 05/17/25 08:50 Dose: 40 mg Clonazepam (Clonazepam Odt 0.5 Mg Tab.Rapdis) 0.5 mg PO BID PRN PRN Reason: severe anxiety/sleep Last Admin: 05/10/25 05:31 Dose: 0.5 mg Clozapine (Clozapine 100 Mg Tablet) 200 mg PO BEDTIME [facility] Last Admin: 05/16/25 20:29 Dose: 200 mg Fluphenazine HCl (Fluphenazine Hcl 2.5 Mg/Ml 10 Ml Vial) 2.5 mg IM BID PRN PRN Reason: give if refuses oral per HCP Last Admin: 03/05/25 09:42 Dose: 2.5 mg Fluphenazine HCl (Fluphenazine Hcl 2.5 Mg Tablet) 2.5 mg PO BID [facility] Last Admin: 05/17/25 08:50 Dose: 2.5 mg Fluticasone/Vilanterol (Fluticasone/Vilanterol 200/25 Blst.W.Dev) 1 puff INHALE DAILY [facility] Last Admin: 05/17/25 08:49 Dose: 1 puff Glycopyrrolate (Glycopyrrolate 1 Mg Tablet) 0.5 mg PO BID [facility] Last Admin: 05/17/25 08:50 Dose: 0.5 mg Hydrochlorothiazide (Hydrochlorothiazide 25 Mg Tablet) 25 mg PO DAILY [facility] Last Admin: 05/17/25 08:49 Dose: 25 mg Levetiracetam (Levetiracetam Oral Soln 500 Mg/5 Ml) 250 mg PO BID [facility] Last Admin: 05/17/25 08:49 Dose: 250 mg Magnesium Hydroxide (Milk Of Magnesia 30 Ml Oral.Susp) 30 ml PO DAILY PRN PRN Reason: Constipation Methimazole (Methimazole 5 Mg Tablet) 5 mg PO DAILY [facility] Last Admin: 05/17/25 08:49 Dose: 5 mg Naloxone HCl (Naloxone Hcl 0.4 Mg/Ml Vial) 0.04 mg IVPUSH Q5M PRN PRN Reason: Excessive sedation or RR < 8 Nifedipine (Nifedipine Er 30 Mg Tab.Er.24) 30 mg PO DAILY [facility]; Protocol Last Admin: 05/17/25 08:49 Dose: 30 mg Olanzapine (Olanzapine 10 Mg Tablet) 10 mg PO Q6H PRN PRN Reason: severe agitation Last Admin: 04/16/25 16:28 Dose: 10 mg Prednisone (Prednisone 20 Mg Tablet) 40 mg PO DAILY [facility] Last Admin: 05/17/25 08:49 Dose: 40 mg Tiotropium Hoople (Tiotropium Hoople 2.5 Mcg 1 Puff/2.5 Mcg Mist.Inhal) 1 puff INHALE DAILY [facility] Last Admin: 05/17/25 08:48 Dose: 1 puff Trazodone HCl (Trazodone Hcl 50 Mg Tablet) 50 mg PO BEDTIME MRX1 PRN PRN Reason: Insomnia Last Admin: 04/04/25 23:21 Dose: 50 mg Allergies Allergies Allergy/AdvReac Type Severity Reaction Status Date / Time latex Allergy Unknown Verified 03/09/25 11:50 peanut Allergy Unknown Verified 03/09/25 11:50 Penicillins Allergy Unknown Verified 03/09/25 11:50 Assessment & Plan Assessment & Plan (1) Psychosis: Status: Acute Code(s): F29 - Unspecified psychosis not due to a substance or known physiological condition Assessment and Plan: r/o autoimmune reasons for psychosis including lupus. 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 Sharif is a 69 year-old woman who presents with a 3 month hx of new onset of psychosis (AH) and combination of paranoid delusions and cap gras delusions. No prior psychiatric hx. She does have of cocaine use but apparently had not used in some years. Daughter suspects she may have relapsed but no ongoing use. Pt presents with more complex theme of delusions. No additional medical work up available including head CT. CBC and cmp unremarkable. 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 It may be related to dementia process but complexity of delusions and psychosis not the common presentation for dementia that have psychosis early on such as in vascular dementia or LBD. Pt presents as gravely disable to able to care for self due to symptoms of psychosis and delusions. 02/03 increase night time risperidone 2mg po qhs increase cogetin at bedtime to 1mg po qhs. lower daily dose to 0.5mg po daily. continue cogentin 0.5mg po daily. clonazepam as prn olanzapine as prn for agitation 02/04 continue tx. 02/05 continue tx. 02/06 continue current dose of risperidone. NOTE THAT pt can't take doses higher than 3 mg/day of risperidone as higher doses had severe EPS. can use olanzapine as well per court order. 02/07/25: Patient has been agitated yelling loudly exist seeking, delusional thinking her daughter/son outside at the door to pick her up. PRNs given in the morning with mild effect. Patient became agitated, aggressive\, assaultive to 1 of the staff on the floor, yelling and hitting her face so grabbing her neck. Physical was started at 16:31 to 1634. Patient was given IM medication of Zyprexa 10 and Valium 10 with good effect. Tomorrow plan: Patient will be benefit from Valium 10 mg twice a day and Zyprexa 5 mg 3 times a day is added into her scheduled medication as current plan with risperidone is not effective. Patient also having a backup for risperidone if she refused. 02/08/25: Slept most of the morning and last night. In better behavior control. No aggressive behavior. She is quiet, self dialogue, and medication compliant. Due to receive restrain medication yesterday. I did not make any medication change. But the Valium and additional Zyprexa appears to be helpful. 02/09 will try to change keppra to depakote for seizures as keppra may exacerbate psychosis. increase risperidone 1mg po daily and 2mg po qhs. may need to add second antipsychotic. 02/10 continues to present as paranoid with AH. at times declines oral medications, requiring IM back per court order. 02/11 continue tx. 02/12 continue tx. 02/13 continue tx. 02/14: no changes today. Monitor for agitation around confusion about hospitalization 02/15: no changes today, self dialogue more overt/extensive today 02/16 add olanzapine 5mg po qhs. continue risperidone. minimal improvement if any. 02/17 continue tx. 02/18 seems more somnolent with bedtime olanzapine, will continue to monitor. 02/19 cbc showed thrombocytopenia, which is new and suspect related to depakote 02/20 pt appears more sedated since addition of olanzapine at bedtime. She continues to self dialogue. minimal improvement. 02/21: Continue current management and treatment plan. 02/22: continue current management and treatment plan. 02/23 continue tx. may need to affirm HCP try different antipsychotic. 02/24 continue tx. results of LENORE 1:360, pattern homogenous A. 02/25 will try rexulti, lower risperidone. pending coordination of medical care to see if underlying autoimmune condition has anything to do with current presentation. 02/26 discussed with hospital banking attorney to dismiss sect 8, HCP invoked and can consent to other treatment. daughter Maricruz give permission to try different antipsychotic. 02/27 decrease risperidone to 1mg po daily, start prolixin 2.5mg po qhs, then increase to BID. continue olanzapine prn for agitation. olanzapine as well per court order. 03/03 pt seen by neurology, added HIV/RPR/LYME, can't have MRI due to cochlear implant. 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 Last Neurology appointment 01/2024. Missed appointment with rheumatology 05/2024, last seen in 02/26/2024. - Pt can't have MRI due to cochlear implant. Had head CT. - continue prolixin 2.5mg po daily, 5mg po qhs. will d/c risperidone, increase prolixin 5mg po BID, back up IM. 03/05 continue tx. 03/06 This rfp writer spoke with pt's pens and pencils repairer, Dr. Al obtained collateral information. Will coordinate with neurology and rheumatology once LP results are available. r/o reoccurance of pachymeningitis, lupus or other autoimmune cause for psychosis. 03/07: Continue current regimen and plans. Discontinued one-to-one and put in place 5 minute checks 03/08: Continue current plans and regimen 03/09 continue tx. 03/10: continue current mgmt. continues disorganized and psychotic. see neuro note from today. continue with neuro w/u. 03/11: given zyprexa 5 and valium [address] and head CTA. head CTA WNL, chest CT showed numerous pulmonary nodules up to 10 mm in size. no change in presentation. due to persistent requests for discharge, 3-day notice submitted on her behalf. will work toward HCP affirmation by the court. 03/12: per pulm consult, chest CT more c/w rheumatological process than CA, recommended empiric steroid course. awaiting input from neuro. consider Bx of nodules otherwise. continue current mgmt for now. 03/13: variably calm and agitated. planning for bronchoscopy with pulmonary nodule Bx on sunday. continue current mgmt. case discussed with HCP Maricruz (daughter), who is in agreement with plan. 03/14: CSF with notable findings. will f/u with neuro on sunday. stable presentation for now, remains quite psychotic. continue current mgmt. bronchoscopy sunday. 03/15: no change from yesterday in presentation or plan. 03/16: stable presentation. continues confused, wanting to go home. HCP affirmation tomorrow. continue current mgmt. 03/17: stable presdentation. bronchoscopy pending. continue current mgmt. 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 awaiting bronchoscopy. remains psychotic. continue current mgmt for now. 03/20: no change in presentation. still awaiting go-ahead for brochoscopy. continue current mgmt. 03/22: No changes. Noted above. 03/23: awaiting insurance approval for bronchoscopy. stable presentation. 03/24: as for yesterday. 03/25: loudly RIS in milieu today. bronchoscopy scheduled for sunday at 1130. NPO past MN night. stable presentation. continue current mgmt. 03/26 pt presents as more disorganized and inattentive than usual showing more signs of delirious behavior. bronchoscopy was canceled,due to shortage of needles to complete biopsy. will order cbc, cmp, ammonia levels given increase disorganized behavior and worsening attention pointing at a more delirious presentation. * Review of results from LP showing negative results for meningitis panel/paraneoplastic panel (including most common antibody found in SLC which is EARL 1 which was negative), elevated protein in CSF 131 without leukocytosis, also elevated CSF/serum IgG index. elevated anti-ds dna titer 1:80. Such results may point more to a rheumatological condition than infectious condition or malignancy. Mrs. Sharif's OP pens and pencils repairer, Dr. Al recommends trial of prednisone 40mg po daily at least for 2 weeks. 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 03/31 increase prolixin to 5mg po BID. continue all other medications including prednisone 40mg po daily. 04/01 discussed with her OP pens and pencils repairer, Dr. Al possibility of transferring to [facility] for further tx of autoimmune condition, suspected also having lupus. continue prednisone. Spoke with daughter who is HCP, daughter concern about pt going to [facility] due to being dismissed several times when pt was first brought psychotic. 04/02 continue tx 04/03 increase prolixin to 5mg po TID. monitor EPS. 04/06 continue tx. 04/07- pending response from [facility] to see if they will take her for further evaluation of autoimmune condition with multidisciplinary team to continue see if psychosis related to autoimmune or primarily psychosis. Some improvement in attention, less guarded. continues to have auditory hallucinations. May consider switch to clozapine given that she has tried 3 antipsychotics with limited efficacy. 04/08 start clozapine 25mg po qhs. continue prolixin 7.5mg po TID. 04/09 increase clozapine to 50mg po qhs. continue prolixin 7.5mg po TID. 04/10 decrease prolixin to 7.5mg po BID. increase clozapine to 75mg po qhs. continue increasing clozapine by 25mg/day. build and deployment engineer, recommends repeat CT in 2 weeks, and hold on bronchoscopy. 04/11: no change today, will titrate Clozapine further tomorrow 04/12: titrate Clozapine to 100 mg QHS 04/13 increase clozapine to 125mg po qhs. continue prolixin 7.5mg po BID. 04/14 Provided update to daughter Maricruz who is HCP in terms of pt being treated for both autoimmune condition that may be contributing to psychosis (with prednione) as well as primarily psychiatric disorder (although less likely) with clozapine. some improvement in attention, slightly less paranoid but continues to present with ongoing AH of her daughter. 04/15 continue tx. 04/16 continue tx. 04/17 start glycopyrralate for drooling, decrease cogentin. 04/17 increase clozapine 150mg po qhs, lower prolixin 2.5mg po BID. back up. 04/18: Continue current management and treatment plan. 04/19: continue current management and treatment plan. 04/20 increase clozapine to 175mg po qhs. 04/21 continue tx. 04/22 continue tx. 04/23 continue tx. will check clozapine levels. 04/[address] followed up done today- much less nodules seen. 04/27 no change in presentation, less paranoid towards staff but ongoing AH. Impaired awareness of surroundings and conversations mostly base on delusional content. Will consult as well with her OP Yard Rigger as to whether continue prednisone as initially recommended by rheumatology for suspected lupus, although it has had additional benefits in lung nodules. 04/28 increase clozapine 200mg po qhs. 04/[address] showed improvement in her pulmonary nodules and absence of pulmonary symptoms otherwise. recommendation to taper off prednisone slowly with repeat of chest CT in 3 months for stability of reminder of nodules. her OP pens and pencils repairer did want to continue prednisone for suspected lupus, may discuss further with rheumatology if they want to continue prednisone or stop it. 04/30 continue tx. 05/01 continue tx. will check clozapine level on 05/04/2505/05 continue tx. pending clozapine levels. 05/06 continue tx. 05/07 continue tx. 05/08 continue tx. 05/09 through 05/11 no change in presentation; continue treatment plan 05/12/25: No change, slept through the night. Medication compliant. Ambulate using walker, walker next to table in dining area where patient sits. Visible in common area but not attended groups. Calm, pleasant and cooperative. No notable side effects from medication. Feeling safe here I want to be home but the weather does not allow me to go home . Last BM was yesterday. Communicate with staff via written form. 05/13/25: Visible, eating and sleeping well. Medication compliant, no side effects. Denies safety concerns, denies voices. however, she is responded to internal stimuli, self dialogues at times. No behavior issues. Pending Clozaril level. 05/14/25: Patient visible, calm, pleasant and cooperative. Medication compliant, some drooling while napping in bed. Passing gas, had BM yesterday. Report feeling tired but denies depression/anxiety. She self dialogue quietly, appear responding to internal stimuli. No behavior issues. No sleeping or appetite problems. Patient observed at some point this afternoon do some coloring art work at the table. Patient was assessed by PT team, report patient is at baseline, using walker. No further assessment needed. Potential will get the bed at [facility]. 05/15/25: Visible, slept well, no appetite issues, compliant with medications. However, patient has not shower often yesterday, per nursing patient believes there was a man in her room therefore she refused to shower yesterday. She states that she will shower later on today when staff is available to help. Reports pain on her back, legs, and joint. She good like to do some coloring after lunch. Per nursing patient has raised her voice asking for tramadol a couple of times a day for pain. Appears responding to internal stimuli, but no major issues. Clazapine 313. Norclozapine 81 Therapeutic. 05/16/25: Patient slept well, no issue with appetite, compliant with medications. Calm, pleasant and cooperative. No behavior issues. Ambulate using a walker. Patient told other peers who on the table in dining area that she talks to herself and out loud because bug in her ear. Patient appeared responding to internal stimuli at baseline. 05/17/25: No issue with sleep or appetite, compliant with medications, visible in common areas at times, mostly required but self dialogue and responding to internal stimuli at times in a quiet way. Patient asked for toilet tree to shower and brush her teeth. Given Tylenol for mild pain with good effect. Patient educated on: medication risk/benefits and therapeutic strategies Informed Consent: understands and further education needed Reason for continued inpatient stay Substantial Risk for: med/psych decompensation Time Spent With Patient Time: Total time managing care of this patient today ____ minutes.
[2025-05-17 20:14] VITALS: BP 110/55; PULSE 79; RESP 16; TEMP 36.2; O2SAT 98
[2025-05-18 08:00] VITALS: BP 131/73; PULSE 86; RESP 18; TEMP 36.5; O2SAT 97
[2025-05-18] MEDS: levETIRAcetam Oral Soln 500 MG/5 ML 250 MG PO ×2 (08:22→19:43)
[2025-05-18] MEDS: Tiotropium Bromide 2.5 mcg 1 PUFF/2.5 MCG MIST.INHAL INHALE (08:23)
[2025-05-18] MEDS: NIFEdipine ER 30 MG TAB.ER.24 PO (08:23)
[2025-05-18] MEDS: Fluticasone/Vilanterol 200/25 BLST.W.DEV 1 PUFF INHALE (08:24)
[2025-05-18] MEDS: Albuterol Sulfate 90 MCG 8 GM INHALER 2 PUFF INHALE (15:17)
--- NOTE | 2025-05-18 17:18 | P.PNPSI_ITS ---
Subjective Subjective Date of Service: 05/18/25 Reason For Visit: Abnormal CT chest Subjective Notes: [place] Order and Section 8 Healthcare Proxy: Yes Guardianship: Yes Medical Problems Affecting Mental Status: No Interim History: Medical record and nursing notes reviewed; case discussed during rounds with team/nursing staff, and met with patient for supportive therapy/psychoeducation, as well as medication management. Patient is visible in common areas, appear to be tired and sleepy at lunch at the table in dining area. Report she feels ok today, slept well and has no issues with appetite. She asks if she can get a coffee with creamer and sugar after encounter. Report general pain on the back and says I need Tylenol or tramadol . Self report last BM was yesterday. Report I have bug in my ear and feeling down , and I talk to my daughter, my fiance and other people when asked who she usually talks to. No behavior issues. Ambulating using walker. Medication Compliance: Yes Side effects from medications: No (Drooling ) Attending Groups: No Review of Systems Acute medical concerns: No Medical Review of Systems: unchanged Review of Systems Review of Systems Constitutional: Denies fatigue and Denies fever(s) Cardiovascular: Denies chest pain and Denies dyspnea Respiratory: Denies dyspnea Gastrointestinal: Denies abdominal pain Psychiatric: denies suicidal ideation Endocrine: Denies fatigue Yes all other systems are reviewed and are negative Mental Status Exam Mental Status Exam Narrative: Appearance: casual attire, adequate grooming and poor hygiene Behavior: calm, keeping to self, engagement limited by vision and hearing difficulties Orientation: alert, oriented to idea that she is in the hospital, year, month not date nor situation. Psychomotor Function: no agitation or slowing; no abnormal gestures or movements Speech: normal rate/rhythm/volume, spontaneous Mood: down Affect: calm, non-labile Thought Process: more linear/organized. Thought Content:organized Hallucinations: AH talking to daughter who is not there. At baseline Delusions: think she has bug in her ear Insight: impairment Judgment: impairment Impulsivity: none noted Diagnostics Vital Signs (24Hr): Vital Signs - 24 hr 05/17/25 20:14 05/18/25 08:00 Temperature 97.2 F 97.7 F Pulse Rate 79 86 Respiratory Rate 16 18 Blood Pressure 110/55 L 131/73 Pulse Oximetry 98 97 Oxygen Delivery Method Room Air Room Air BMI result Body Mass Index 31.9 Labs 03/29/25 08:55 03/29/25 08:55 Imaging Radiology Impressions: ITS Impressions Head CT 03/05/25 15:51 IMPRESSION: 1. No acute intracranial abnormality. 2. Right-sided cochlear nerve implant with associated streak artifact. 3. Right-sided canal wall up mastoidectomy. Electronically signed by: Levi Greer MD 03/05/2025 04:25 PM EDT RP Lumbar Puncture Fluoroscopy 03/09/25 11:50 IMPRESSION: Successful fluoroscopy-guided lumbar puncture performed without immediate complications Electronically signed by: Thompson Andujar MD 03/09/2025 04:06 PM EDT RP Chest CT 03/11/25 11:52 IMPRESSION: 1. Multiple bilateral pulmonary nodules measuring up to 10 mm in size. Further evaluation should be based on Fleischner Society guidelines below. 2. Cardiomegaly. Findings consistent with pulmonary arterial hypertension. 3. No evidence of mediastinal or hilar lymphadenopathy. Fleischner Criteria for pulmonary nodule follow-up SOLID NODULES: Low risk patient: <6mm: no follow-up 6-8mm: 6 month follow-up CT >8mm: PET/Biopsy/ 3 month follow-up CT High risk patient: <6mm: 12 month follow-up CT 6-8mm: 6 month follow-up CT >8mm: PET/Biopsy/ 3 month follow-up CT SUB-SOLID/GROUNDGLASS NODULES: All patients: > or = 6mm: 6 month follow-up CT *Please note that in patients in the following categories, the Fleischner criteria do not apply: Immunocompromised, lung cancer screening population, age below 35, and patients with known malignancy Electronically signed by: Best Clemons MD 03/11/2025 01:45 PM EDT RP Head CTA 03/11/25 11:52 IMPRESSION: Head CT: No acute intracranial abnormality. CT angiogram of the head: No vascular occlusions. Electronically signed by: Gypsy Salamanca MD 03/11/2025 03:02 PM EDT RP Chest CT 04/24/25 09:58 IMPRESSION: 1. Majority of the previously seen pulmonary nodules have resolved, and were consistent with infectious or inflammatory etiology. 2. There is a persistent 9 mm nodular focus in the lateral right upper lobe, which is felt to represent scarring given the appearance. To be cautious, a 3 month interval follow-up CT is recommended to ensure stability. 3. There is mild to moderate paraseptal emphysema. There is no acute pneumonic consolidation. 4. There is thickening of the small airways suggesting bronchitis. 5. There is moderate cardiac enlargement. Enlarged main pulmonary artery is consistent with pulmonary arterial hypertension. Electronically signed by: Levi Greer MD 04/24/2025 10:56 AM EDT Medications Medications Current Medications Acetaminophen (Acetaminophen 325 Mg Tablet) 650 mg PO Q6H PRN PRN Reason: Headache/Pain, Scale 1-10 Last Admin: 05/17/25 08:56 Dose: 650 mg Al Hydroxide/Mg Hydroxide (Magnesium Hydrox/Alum Hydrox 30 Ml Oral.Susp) 30 ml PO Q6H PRN PRN Reason: Heartburn/Nausea Albuterol Sulfate (Albuterol Sulfate 90 Mcg 8 Gm Inhaler) 2 puff INHALE Q4H PRN PRN Reason: Shortness Of Breath Or Wheezing Last Admin: 05/18/25 15:17 Dose: 2 puff Atorvastatin Calcium (Atorvastatin Calcium 40 Mg Tablet) 40 mg PO DAILY [facility] Last Admin: 05/18/25 08:23 Dose: 40 mg Clonazepam (Clonazepam Odt 0.5 Mg Tab.Rapdis) 0.5 mg PO BID PRN PRN Reason: severe anxiety/sleep Last Admin: 05/10/25 05:31 Dose: 0.5 mg Clozapine (Clozapine 100 Mg Tablet) 200 mg PO BEDTIME [facility] Last Admin: 05/17/25 20:16 Dose: 200 mg Fluphenazine HCl (Fluphenazine Hcl 2.5 Mg/Ml 10 Ml Vial) 2.5 mg IM BID PRN PRN Reason: give if refuses oral per HCP Last Admin: 03/05/25 09:42 Dose: 2.5 mg Fluphenazine HCl (Fluphenazine Hcl 2.5 Mg Tablet) 2.5 mg PO BID [facility] Last Admin: 05/18/25 08:22 Dose: 2.5 mg Fluticasone/Vilanterol (Fluticasone/Vilanterol 200/25 Blst.W.Dev) 1 puff INHALE DAILY [facility] Last Admin: 05/18/25 08:24 Dose: 1 puff Glycopyrrolate (Glycopyrrolate 1 Mg Tablet) 0.5 mg PO BID [facility] Last Admin: 05/18/25 08:23 Dose: 0.5 mg Hydrochlorothiazide (Hydrochlorothiazide 25 Mg Tablet) 25 mg PO DAILY [facility] Last Admin: 05/18/25 08:23 Dose: 25 mg Levetiracetam (Levetiracetam Oral Soln 500 Mg/5 Ml) 250 mg PO BID [facility] Last Admin: 05/18/25 08:22 Dose: 250 mg Magnesium Hydroxide (Milk Of Magnesia 30 Ml Oral.Susp) 30 ml PO DAILY PRN PRN Reason: Constipation Methimazole (Methimazole 5 Mg Tablet) 5 mg PO DAILY [facility] Last Admin: 05/18/25 08:23 Dose: 5 mg Naloxone HCl (Naloxone Hcl 0.4 Mg/Ml Vial) 0.04 mg IVPUSH Q5M PRN PRN Reason: Excessive sedation or RR < 8 Nifedipine (Nifedipine Er 30 Mg Tab.Er.24) 30 mg PO DAILY [facility]; Protocol Last Admin: 05/18/25 08:23 Dose: 30 mg Olanzapine (Olanzapine 10 Mg Tablet) 10 mg PO Q6H PRN PRN Reason: severe agitation Last Admin: 04/16/25 16:28 Dose: 10 mg Prednisone (Prednisone 20 Mg Tablet) 40 mg PO DAILY [facility] Last Admin: 05/18/25 08:22 Dose: 40 mg Tiotropium [place] (Tiotropium [place] 2.5 Mcg 1 Puff/2.5 Mcg Mist.Inhal) 1 puff INHALE DAILY [facility] Last Admin: 05/18/25 08:23 Dose: 1 puff Trazodone HCl (Trazodone Hcl 50 Mg Tablet) 50 mg PO BEDTIME MRX1 PRN PRN Reason: Insomnia Last Admin: 04/04/25 23:21 Dose: 50 mg Allergies Allergies Allergy/AdvReac Type Severity Reaction Status Date / Time latex Allergy Unknown Verified 03/09/25 11:50 peanut Allergy Unknown Verified 03/09/25 11:50 Penicillins Allergy Unknown Verified 03/09/25 11:50 Assessment & Plan Assessment & Plan (1) Psychosis: Status: Acute Code(s): F29 - Unspecified psychosis not due to a substance or known physiological condition Assessment and Plan: r/o autoimmune reasons for psychosis including lupus. 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 Sharif is a 69 year-old woman who presents with a 3 month hx of new onset of psychosis (AH) and combination of paranoid delusions and cap gras delusions. No prior psychiatric hx. She does have of cocaine use but apparently had not used in some years. Daughter suspects she may have relapsed but no ongoing use. Pt presents with more complex theme of delusions. No additional medical work up available including head CT. CBC and cmp unremarkable. 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 It may be related to dementia process but complexity of delusions and psychosis not the common presentation for dementia that have psychosis early on such as in vascular dementia or LBD. Pt presents as gravely disable to able to care for self due to symptoms of psychosis and delusions. 02/03 increase night time risperidone 2mg po qhs increase cogetin at bedtime to 1mg po qhs. lower daily dose to 0.5mg po daily. continue cogentin 0.5mg po daily. clonazepam as prn olanzapine as prn for agitation 02/04 continue tx. 02/05 continue tx. 02/06 continue current dose of risperidone. NOTE THAT pt can't take doses higher than 3 mg/day of risperidone as higher doses had severe EPS. can use olanzapine as well per court order. 02/07/25: Patient has been agitated yelling loudly exist seeking, delusional thinking her daughter/son outside at the door to pick her up. PRNs given in the morning with mild effect. Patient became agitated, aggressive\, assaultive to 1 of the staff on the floor, yelling and hitting her face so grabbing her neck. Physical was started at 16:31 to 1634. Patient was given IM medication of Zyprexa 10 and Valium 10 with good effect. Tomorrow plan: Patient will be benefit from Valium 10 mg twice a day and Zyprexa 5 mg 3 times a day is added into her scheduled medication as current plan with risperidone is not effective. Patient also having a backup for risperidone if she refused. 02/08/25: Slept most of the morning and last night. In better behavior control. No aggressive behavior. She is quiet, self dialogue, and medication compliant. Due to receive restrain medication yesterday. I did not make any medication change. But the Valium and additional Zyprexa appears to be helpful. 02/09 will try to change keppra to depakote for seizures as keppra may exacerbate psychosis. increase risperidone 1mg po daily and 2mg po qhs. may need to add second antipsychotic. 02/10 continues to present as paranoid with AH. at times declines oral medications, requiring IM back per court order. 02/11 continue tx. 02/12 continue tx. 02/13 continue tx. 02/14: no changes today. Monitor for agitation around confusion about hospitalization 02/15: no changes today, self dialogue more overt/extensive today 02/16 add olanzapine 5mg po qhs. continue risperidone. minimal improvement if any. 02/17 continue tx. 02/18 seems more somnolent with bedtime olanzapine, will continue to monitor. 02/19 cbc showed thrombocytopenia, which is new and suspect related to depakote 02/20 pt appears more sedated since addition of olanzapine at bedtime. She continues to self dialogue. minimal improvement. 02/21: Continue current management and treatment plan. 02/22: continue current management and treatment plan. 02/23 continue tx. may need to affirm HCP try different antipsychotic. 02/24 continue tx. results of LENORE 1:360, pattern homogenous A. 02/25 will try rexulti, lower risperidone. pending coordination of medical care to see if underlying autoimmune condition has anything to do with current presentation. 02/26 discussed with hospital contract attorney to dismiss sect 8, HCP invoked and can consent to other treatment. daughter Maricruz give permission to try different antipsychotic. 02/27 decrease risperidone to 1mg po daily, start prolixin 2.5mg po qhs, then increase to BID. continue olanzapine prn for agitation. olanzapine as well per court order. 03/03 pt seen by neurology, added HIV/RPR/LYME, can't have MRI due to cochlear implant. 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 Last Neurology appointment 01/2024. Missed appointment with rheumatology 05/2024, last seen in 02/26/2024. - Pt can't have MRI due to cochlear implant. Had head CT. - continue prolixin 2.5mg po daily, 5mg po qhs. will d/c risperidone, increase prolixin 5mg po BID, back up IM. 03/05 continue tx. 03/06 This software writer spoke with pt's steam fitter supervisor, Dr. Al obtained collateral information. Will coordinate with neurology and rheumatology once LP results are available. r/o reoccurance of pachymeningitis, lupus or other autoimmune cause for psychosis. 03/07: Continue current regimen and plans. Discontinued one-to-one and put in place 5 minute checks 03/08: Continue current plans and regimen 03/09 continue tx. 03/10: continue current mgmt. continues disorganized and psychotic. see neuro note from today. continue with neuro w/u. 03/11: given zyprexa 5 and valium [address] and head CTA. head CTA WNL, chest CT showed numerous pulmonary nodules up to 10 mm in size. no change in presentation. due to persistent requests for discharge, 3-day notice submitted on her behalf. will work toward HCP affirmation by the court. 03/12: per pulm consult, chest CT more c/w rheumatological process than CA, recommended empiric steroid course. awaiting input from neuro. consider Bx of nodules otherwise. continue current mgmt for now. 03/13: variably calm and agitated. planning for bronchoscopy with pulmonary nodule Bx on sunday. continue current mgmt. case discussed with HCP Maricruz (daughter), who is in agreement with plan. 03/14: CSF with notable findings. will f/u with neuro on sunday. stable presentation for now, remains quite psychotic. continue current mgmt. bronchoscopy sunday. 03/15: no change from yesterday in presentation or plan. 03/16: stable presentation. continues confused, wanting to go home. HCP affirmation tomorrow. continue current mgmt. 03/17: stable presdentation. bronchoscopy pending. continue current mgmt. 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 awaiting bronchoscopy. remains psychotic. continue current mgmt for now. 03/20: no change in presentation. still awaiting go-ahead for brochoscopy. continue current mgmt. 03/22: No changes. Noted above. 03/23: awaiting insurance approval for bronchoscopy. stable presentation. 03/24: as for yesterday. 03/25: loudly RIS in milieu today. bronchoscopy scheduled for sunday at 1130. NPO past MN night. stable presentation. continue current mgmt. 03/26 pt presents as more disorganized and inattentive than usual showing more signs of delirious behavior. bronchoscopy was canceled,due to shortage of needles to complete biopsy. will order cbc, cmp, ammonia levels given increase disorganized behavior and worsening attention pointing at a more delirious presentation. * Review of results from LP showing negative results for meningitis panel/paraneoplastic panel (including most common antibody found in SLC which is EARL 1 which was negative), elevated protein in CSF 131 without leukocytosis, also elevated CSF/serum IgG index. elevated anti-ds dna titer 1:80. Such results may point more to a rheumatological condition than infectious condition or malignancy. Mrs. Sharif's OP steam fitter supervisor, Dr. Al recommends trial of prednisone 40mg po daily at least for 2 weeks. 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 03/31 increase prolixin to 5mg po BID. continue all other medications including prednisone 40mg po daily. 04/01 discussed with her OP steam fitter supervisor, Dr. Al possibility of transferring to [facility] for further tx of autoimmune condition, suspected also having lupus. continue prednisone. Spoke with daughter who is HCP, daughter concern about pt going to [facility] due to being dismissed several times when pt was first brought psychotic. 04/02 continue tx 04/03 increase prolixin to 5mg po TID. monitor EPS. 04/06 continue tx. 04/07- pending response from [facility] to see if they will take her for further evaluation of autoimmune condition with multidisciplinary team to continue see if psychosis related to autoimmune or primarily psychosis. Some improvement in attention, less guarded. continues to have auditory hallucinations. May consider switch to clozapine given that she has tried 3 antipsychotics with limited efficacy. 04/08 start clozapine 25mg po qhs. continue prolixin 7.5mg po TID. 04/09 increase clozapine to 50mg po qhs. continue prolixin 7.5mg po TID. 04/10 decrease prolixin to 7.5mg po BID. increase clozapine to 75mg po qhs. continue increasing clozapine by 25mg/day. electronic equipment maint tech, recommends repeat CT in 2 weeks, and hold on bronchoscopy. 04/11: no change today, will titrate Clozapine further tomorrow 04/12: titrate Clozapine to 100 mg QHS 04/13 increase clozapine to 125mg po qhs. continue prolixin 7.5mg po BID. 04/14 Provided update to daughter Maricruz who is HCP in terms of pt being treated for both autoimmune condition that may be contributing to psychosis (with prednione) as well as primarily psychiatric disorder (although less likely) with clozapine. some improvement in attention, slightly less paranoid but continues to present with ongoing AH of her daughter. 04/15 continue tx. 04/16 continue tx. 04/17 start glycopyrralate for drooling, decrease cogentin. 04/17 increase clozapine 150mg po qhs, lower prolixin 2.5mg po BID. back up. 04/18: Continue current management and treatment plan. 04/19: continue current management and treatment plan. 04/20 increase clozapine to 175mg po qhs. 04/21 continue tx. 04/22 continue tx. 04/23 continue tx. will check clozapine levels. 04/[address] followed up done today- much less nodules seen. 04/27 no change in presentation, less paranoid towards staff but ongoing AH. Impaired awareness of surroundings and conversations mostly base on delusional content. Will consult as well with her OP Firearms Instructor as to whether continue prednisone as initially recommended by rheumatology for suspected lupus, although it has had additional benefits in lung nodules. 04/28 increase clozapine 200mg po qhs. 04/[address] showed improvement in her pulmonary nodules and absence of pulmonary symptoms otherwise. recommendation to taper off prednisone slowly with repeat of chest CT in 3 months for stability of reminder of nodules. her OP steam fitter supervisor did want to continue prednisone for suspected lupus, may discuss further with rheumatology if they want to continue prednisone or stop it. 04/30 continue tx. 05/01 continue tx. will check clozapine level on 05/04/2505/05 continue tx. pending clozapine levels. 05/06 continue tx. 05/07 continue tx. 05/08 continue tx. 05/09 through 05/11 no change in presentation; continue treatment plan 05/12/25: No change, slept through the night. Medication compliant. Ambulate using walker, walker next to table in dining area where patient sits. Visible in common area but not attended groups. Calm, pleasant and cooperative. No notable side effects from medication. Feeling safe here I want to be home but the weather does not allow me to go home . Last BM was yesterday. Communicate with staff via written form. 05/13/25: Visible, eating and sleeping well. Medication compliant, no side effects. Denies safety concerns, denies voices. however, she is responded to internal stimuli, self dialogues at times. No behavior issues. Pending Clozaril level. 05/14/25: Patient visible, calm, pleasant and cooperative. Medication compliant, some drooling while napping in bed. Passing gas, had BM yesterday. Report feeling tired but denies depression/anxiety. She self dialogue quietly, appear responding to internal stimuli. No behavior issues. No sleeping or appetite problems. Patient observed at some point this afternoon do some coloring art work at the table. Patient was assessed by PT team, report patient is at baseline, using walker. No further assessment needed. Potential will get the bed at [facility]. 05/15/25: Visible, slept well, no appetite issues, compliant with medications. However, patient has not shower often yesterday, per nursing patient believes there was a man in her room therefore she refused to shower yesterday. She states that she will shower later on today when staff is available to help. Reports pain on her back, legs, and joint. She good like to do some coloring after lunch. Per nursing patient has raised her voice asking for tramadol a couple of times a day for pain. Appears responding to internal stimuli, but no major issues. Clazapine 313. Norclozapine 81 Therapeutic. 05/16/25: Patient slept well, no issue with appetite, compliant with medications. Calm, pleasant and cooperative. No behavior issues. Ambulate using a walker. Patient told other peers who on the table in dining area that she talks to herself and out loud because bug in her ear. Patient appeared responding to internal stimuli at baseline. 05/17/25: No issue with sleep or appetite, compliant with medications, visible in common areas at times, mostly required but self dialogue and responding to internal stimuli at times in a quiet way. Patient asked for toilet tree to shower and brush her teeth. Given Tylenol for mild pain with good effect. 05/18/25: Patient is visible in common areas, appear to be tired and sleepy at lunch at the table in dining area. Report she feels ok today, slept well and has no issues with appetite. She asks if she can get a coffee with creamer and sugar after encounter. Report gerenral pain on the back and says I need Tylenol or tramadol . Self report last BM was yesterday. Report I have bug in my ear and feeling down , and I talk to my daughter, my fiance and other peoole when asked who she usually talks to. No behavior issues. Ambulating using walker. Wait for placement. Continue with current tx plan. Patient educated on: medication risk/benefits and therapeutic strategies Informed Consent: understands and further education needed Reason for continued inpatient stay Substantial Risk for: med/psych decompensation Time Spent With Patient Time: Total time managing care of this patient today ____ minutes.
[2025-05-18 19:41] VITALS: BP 117/56; PULSE 79; RESP 16; TEMP 36.9; O2SAT 97
[2025-05-19 08:00] VITALS: BP 172/77; PULSE 84; RESP 18; TEMP 36.5; O2SAT 94
[2025-05-19] MEDS: NIFEdipine ER 30 MG TAB.ER.24 PO (08:20)
[2025-05-19] MEDS: Fluticasone/Vilanterol 200/25 BLST.W.DEV 1 PUFF INHALE (08:20)
[2025-05-19] MEDS: Tiotropium Bromide 2.5 mcg 1 PUFF/2.5 MCG MIST.INHAL INHALE (08:20)
[2025-05-19] MEDS: levETIRAcetam Oral Soln 500 MG/5 ML 250 MG PO ×2 (08:21→20:21)
--- NOTE | 2025-05-19 15:50 | HO.PSYCHPN ---
Subjective Subjective Date of Service: 05/19/25 Reason For Visit: Abnormal CT chest Subjective Notes: [place] Order and Section 8 Healthcare Proxy: Yes Guardianship: Yes Medical Problems Affecting Mental Status: No Interim History: Medical record and nursing notes reviewed; case discussed during rounds with team/nursing staff, and met with patient for supportive therapy/psychoeducation, as well as medication management. Per note: [facility] has accepted patient for admission. Submitted PASRR level I and she will need Level II screen . Updated daughter ( affirmed HCP) and once PASRR is completed patient will transfer. Daughter expressed happiness regarding outcome and the fact that patient will be closer to them in [place]. Estimated date of discharge is within 1-2 weeks LT care bed has not opened at this time, but liaision stated it she would follow. Patient slept well, no issues with sleep, appetite, or medication compliant. She thinks she is leaving tomorrow morning. She appears bright up whenever this provider approaches her. Report she feels good and thanks for checking on her. Last BM is this morning. Continue with current tx plan. Waiting for placement. Medication Compliance: Yes Side effects from medications: No (weight gain ) Attending Groups: No Review of Systems Acute medical concerns: No Medical Review of Systems: unchanged Review of Systems Review of Systems Constitutional: Denies fatigue and Denies fever(s) Cardiovascular: Denies chest pain and Denies dyspnea Respiratory: Denies dyspnea Gastrointestinal: Denies abdominal pain Psychiatric: denies suicidal ideation Endocrine: Denies fatigue Yes all other systems are reviewed and are negative Mental Status Exam Mental Status Exam Narrative: Appearance: casual attire, adequate grooming and poor hygiene Behavior: calm, keeping to self, engagement limited by vision and hearing difficulties Orientation: alert, oriented to idea that she is in the hospital, year, month not date nor situation. Psychomotor Function: no agitation or slowing; no abnormal gestures or movements Speech: normal rate/rhythm/volume, spontaneous Mood: down Affect: calm, non-labile Thought Process: more linear/organized. Thought Content:organized Hallucinations: AH talking to daughter who is not there. At baseline Delusions: think she has bug in her ear Insight: impairment Judgment: impairment Impulsivity: none noted Diagnostics Vital Signs (24Hr): Vital Signs - 24 hr 05/18/25 19:41 05/19/25 08:00 Temperature 98.5 F 97.7 F Pulse Rate 79 84 Respiratory Rate 16 18 Blood Pressure 117/56 L 172/77 H Pulse Oximetry 97 94 Oxygen Delivery Method Room Air Room Air BMI result Body Mass Index 31.9 Labs 03/29/25 08:55 03/29/25 08:55 Imaging Radiology Impressions: ITS Impressions Head CT 03/05/25 15:51 IMPRESSION: 1. No acute intracranial abnormality. 2. Right-sided cochlear nerve implant with associated streak artifact. 3. Right-sided canal wall up mastoidectomy. Electronically signed by: Levi Greer MD 03/05/2025 04:25 PM EDT RP Lumbar Puncture Fluoroscopy 03/09/25 11:50 IMPRESSION: Successful fluoroscopy-guided lumbar puncture performed without immediate complications Electronically signed by: Thompson Andujar MD 03/09/2025 04:06 PM EDT RP Chest CT 03/11/25 11:52 IMPRESSION: 1. Multiple bilateral pulmonary nodules measuring up to 10 mm in size. Further evaluation should be based on Fleischner Society guidelines below. 2. Cardiomegaly. Findings consistent with pulmonary arterial hypertension. 3. No evidence of mediastinal or hilar lymphadenopathy. Fleischner Criteria for pulmonary nodule follow-up SOLID NODULES: Low risk patient: <6mm: no follow-up 6-8mm: 6 month follow-up CT >8mm: PET/Biopsy/ 3 month follow-up CT High risk patient: <6mm: 12 month follow-up CT 6-8mm: 6 month follow-up CT >8mm: PET/Biopsy/ 3 month follow-up CT SUB-SOLID/GROUNDGLASS NODULES: All patients: > or = 6mm: 6 month follow-up CT *Please note that in patients in the following categories, the Fleischner criteria do not apply: Immunocompromised, lung cancer screening population, age below 35, and patients with known malignancy Electronically signed by: Best Clemons MD 03/11/2025 01:45 PM EDT RP Head CTA 03/11/25 11:52 IMPRESSION: Head CT: No acute intracranial abnormality. CT angiogram of the head: No vascular occlusions. Electronically signed by: Gypsy Salamanca MD 03/11/2025 03:02 PM EDT RP Chest CT 04/24/25 09:58 IMPRESSION: 1. Majority of the previously seen pulmonary nodules have resolved, and were consistent with infectious or inflammatory etiology. 2. There is a persistent 9 mm nodular focus in the lateral right upper lobe, which is felt to represent scarring given the appearance. To be cautious, a 3 month interval follow-up CT is recommended to ensure stability. 3. There is mild to moderate paraseptal emphysema. There is no acute pneumonic consolidation. 4. There is thickening of the small airways suggesting bronchitis. 5. There is moderate cardiac enlargement. Enlarged main pulmonary artery is consistent with pulmonary arterial hypertension. Electronically signed by: Levi Greer MD 04/24/2025 10:56 AM EDT RP Medications Medications Current Medications Acetaminophen (Acetaminophen 325 Mg Tablet) 650 mg PO Q6H PRN PRN Reason: Headache/Pain, Scale 1-10 Last Admin: 05/17/25 08:56 Dose: 650 mg Al Hydroxide/Mg Hydroxide (Magnesium Hydrox/Alum Hydrox 30 Ml Oral.Susp) 30 ml PO Q6H PRN PRN Reason: Heartburn/Nausea Albuterol Sulfate (Albuterol Sulfate 90 Mcg 8 Gm Inhaler) 2 puff INHALE Q4H PRN PRN Reason: Shortness Of Breath Or Wheezing Last Admin: 05/18/25 15:17 Dose: 2 puff Atorvastatin Calcium (Atorvastatin Calcium 40 Mg Tablet) 40 mg PO DAILY [facility] Last Admin: 05/19/25 08:20 Dose: 40 mg Clonazepam (Clonazepam Odt 0.5 Mg Tab.Rapdis) 0.5 mg PO BID PRN PRN Reason: severe anxiety/sleep Last Admin: 05/10/25 05:31 Dose: 0.5 mg Clozapine (Clozapine 100 Mg Tablet) 200 mg PO BEDTIME [facility] Last Admin: 05/18/25 19:43 Dose: 200 mg Fluphenazine HCl (Fluphenazine Hcl 2.5 Mg/Ml 10 Ml Vial) 2.5 mg IM BID PRN PRN Reason: give if refuses oral per HCP Last Admin: 03/05/25 09:42 Dose: 2.5 mg Fluphenazine HCl (Fluphenazine Hcl 2.5 Mg Tablet) 2.5 mg PO BID [facility] Last Admin: 05/19/25 08:21 Dose: 2.5 mg Fluticasone/Vilanterol (Fluticasone/Vilanterol 200/25 Blst.W.Dev) 1 puff INHALE DAILY [facility] Last Admin: 05/19/25 08:20 Dose: 1 puff Glycopyrrolate (Glycopyrrolate 1 Mg Tablet) 0.5 mg PO BID [facility] Last Admin: 05/19/25 08:21 Dose: 0.5 mg Hydrochlorothiazide (Hydrochlorothiazide 25 Mg Tablet) 25 mg PO DAILY [facility] Last Admin: 05/19/25 08:20 Dose: 25 mg Levetiracetam (Levetiracetam Oral Soln 500 Mg/5 Ml) 250 mg PO BID [facility] Last Admin: 05/19/25 08:21 Dose: 250 mg Magnesium Hydroxide (Milk Of Magnesia 30 Ml Oral.Susp) 30 ml PO DAILY PRN PRN Reason: Constipation Methimazole (Methimazole 5 Mg Tablet) 5 mg PO DAILY [facility] Last Admin: 05/19/25 08:21 Dose: 5 mg Naloxone HCl (Naloxone Hcl 0.4 Mg/Ml Vial) 0.04 mg IVPUSH Q5M PRN PRN Reason: Excessive sedation or RR < 8 Nifedipine (Nifedipine Er 30 Mg Tab.Er.24) 30 mg PO DAILY [facility]; Protocol Last Admin: 05/19/25 08:20 Dose: 30 mg Olanzapine (Olanzapine 10 Mg Tablet) 10 mg PO Q6H PRN PRN Reason: severe agitation Last Admin: 04/16/25 16:28 Dose: 10 mg Prednisone (Prednisone 20 Mg Tablet) 40 mg PO DAILY [facility] Last Admin: 05/19/25 08:21 Dose: 40 mg Tiotropium Spencer (Tiotropium Spencer 2.5 Mcg 1 Puff/2.5 Mcg Mist.Inhal) 1 puff INHALE DAILY [facility] Last Admin: 05/19/25 08:20 Dose: 1 puff Trazodone HCl (Trazodone Hcl 50 Mg Tablet) 50 mg PO BEDTIME MRX1 PRN PRN Reason: Insomnia Last Admin: 04/04/25 23:21 Dose: 50 mg Allergies Allergies Allergy/AdvReac Type Severity Reaction Status Date / Time latex Allergy Unknown Verified 03/09/25 11:50 peanut Allergy Unknown Verified 03/09/25 11:50 Penicillins Allergy Unknown Verified 03/09/25 11:50 Assessment & Plan Assessment & Plan (1) Psychosis: Status: Acute Code(s): F29 - Unspecified psychosis not due to a substance or known physiological condition Assessment and Plan: r/o autoimmune reasons for psychosis including lupus. 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 Sharif is a 69 year-old woman who presents with a 3 month hx of new onset of psychosis (AH) and combination of paranoid delusions and cap gras delusions. No prior psychiatric hx. She does have of cocaine use but apparently had not used in some years. Daughter suspects she may have relapsed but no ongoing use. Pt presents with more complex theme of delusions. No additional medical work up available including head CT. CBC and cmp unremarkable. 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 It may be related to dementia process but complexity of delusions and psychosis not the common presentation for dementia that have psychosis early on such as in vascular dementia or LBD. Pt presents as gravely disable to able to care for self due to symptoms of psychosis and delusions. 02/03 increase night time risperidone 2mg po qhs increase cogetin at bedtime to 1mg po qhs. lower daily dose to 0.5mg po daily. continue cogentin 0.5mg po daily. clonazepam as prn olanzapine as prn for agitation 02/04 continue tx. 02/05 continue tx. 02/06 continue current dose of risperidone. NOTE THAT pt can't take doses higher than 3 mg/day of risperidone as higher doses had severe EPS. can use olanzapine as well per court order. 02/07/25: Patient has been agitated yelling loudly exist seeking, delusional thinking her daughter/son outside at the door to pick her up. PRNs given in the morning with mild effect. Patient became agitated, aggressive\, assaultive to 1 of the staff on the floor, yelling and hitting her face so grabbing her neck. Physical was started at 16:31 to 1634. Patient was given IM medication of Zyprexa 10 and Valium 10 with good effect. Tomorrow plan: Patient will be benefit from Valium 10 mg twice a day and Zyprexa 5 mg 3 times a day is added into her scheduled medication as current plan with risperidone is not effective. Patient also having a backup for risperidone if she refused. 02/08/25: Slept most of the morning and last night. In better behavior control. No aggressive behavior. She is quiet, self dialogue, and medication compliant. Due to receive restrain medication yesterday. I did not make any medication change. But the Valium and additional Zyprexa appears to be helpful. 02/09 will try to change keppra to depakote for seizures as keppra may exacerbate psychosis. increase risperidone 1mg po daily and 2mg po qhs. may need to add second antipsychotic. 02/10 continues to present as paranoid with AH. at times declines oral medications, requiring IM back per court order. 02/11 continue tx. 02/12 continue tx. 02/13 continue tx. 02/14: no changes today. Monitor for agitation around confusion about hospitalization 02/15: no changes today, self dialogue more overt/extensive today 02/16 add olanzapine 5mg po qhs. continue risperidone. minimal improvement if any. 02/17 continue tx. 02/18 seems more somnolent with bedtime olanzapine, will continue to monitor. 02/19 cbc showed thrombocytopenia, which is new and suspect related to depakote 02/20 pt appears more sedated since addition of olanzapine at bedtime. She continues to self dialogue. minimal improvement. 02/21: Continue current management and treatment plan. 02/22: continue current management and treatment plan. 02/23 continue tx. may need to affirm HCP try different antipsychotic. 02/24 continue tx. results of LENORE 1:360, pattern homogenous A. 02/25 will try rexulti, lower risperidone. pending coordination of medical care to see if underlying autoimmune condition has anything to do with current presentation. 02/26 discussed with hospital banking attorney to dismiss sect 8, HCP invoked and can consent to other treatment. daughter Maricruz give permission to try different antipsychotic. 02/27 decrease risperidone to 1mg po daily, start prolixin 2.5mg po qhs, then increase to BID. continue olanzapine prn for agitation. olanzapine as well per court order. 03/03 pt seen by neurology, added HIV/RPR/LYME, can't have MRI due to cochlear implant. 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 Last Neurology appointment 01/2024. Missed appointment with rheumatology 05/2024, last seen in 02/26/2024. - Pt can't have MRI due to cochlear implant. Had head CT. - continue prolixin 2.5mg po daily, 5mg po qhs. will d/c risperidone, increase prolixin 5mg po BID, back up IM. 03/05 continue tx. 03/06 This selling underwriter spoke with pt's customer supply coordinator, Dr. Al obtained collateral information. Will coordinate with neurology and rheumatology once LP results are available. r/o reoccurance of pachymeningitis, lupus or other autoimmune cause for psychosis. 03/07: Continue current regimen and plans. Discontinued one-to-one and put in place 5 minute checks 03/08: Continue current plans and regimen 03/09 continue tx. 03/10: continue current mgmt. continues disorganized and psychotic. see neuro note from today. continue with neuro w/u. 03/11: given zyprexa 5 and valium [address] and head CTA. head CTA WNL, chest CT showed numerous pulmonary nodules up to 10 mm in size. no change in presentation. due to persistent requests for discharge, 3-day notice submitted on her behalf. will work toward HCP affirmation by the court. 03/12: per pulm consult, chest CT more c/w rheumatological process than CA, recommended empiric steroid course. awaiting input from neuro. consider Bx of nodules otherwise. continue current mgmt for now. 03/13: variably calm and agitated. planning for bronchoscopy with pulmonary nodule Bx on sunday. continue current mgmt. case discussed with HCP Maricruz (daughter), who is in agreement with plan. 03/14: CSF with notable findings. will f/u with neuro on sunday. stable presentation for now, remains quite psychotic. continue current mgmt. bronchoscopy sunday. 03/15: no change from yesterday in presentation or plan. 03/16: stable presentation. continues confused, wanting to go home. HCP affirmation tomorrow. continue current mgmt. 03/17: stable presdentation. bronchoscopy pending. continue current mgmt. 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 awaiting bronchoscopy. remains psychotic. continue current mgmt for now. 03/20: no change in presentation. still awaiting go-ahead for brochoscopy. continue current mgmt. 03/22: No changes. Noted above. 03/23: awaiting insurance approval for bronchoscopy. stable presentation. 03/24: as for yesterday. 03/25: loudly RIS in milieu today. bronchoscopy scheduled for sunday at 1130. NPO past MN night. stable presentation. continue current mgmt. 03/26 pt presents as more disorganized and inattentive than usual showing more signs of delirious behavior. bronchoscopy was canceled,due to shortage of needles to complete biopsy. will order cbc, cmp, ammonia levels given increase disorganized behavior and worsening attention pointing at a more delirious presentation. Review of results from LP showing negative results for meningitis panel/paraneoplastic panel (including most common antibody found in SLC which is EARL 1 which was negative), elevated protein in CSF 131 without leukocytosis, also elevated CSF/serum IgG index. elevated anti-ds dna titer 1:80. Such results may point more to a rheumatological condition than infectious condition or malignancy. Mrs. Sharif's OP customer supply coordinator, Dr. Al recommends trial of prednisone 40mg po daily at least for 2 weeks. 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 03/31 increase prolixin to 5mg po BID. continue all other medications including prednisone 40mg po daily. 04/01 discussed with her OP customer supply coordinator, Dr. Al possibility of transferring to [facility] for further tx of autoimmune condition, suspected also having lupus. continue prednisone. Spoke with daughter who is HCP, daughter concern about pt going to [facility] due to being dismissed several times when pt was first brought psychotic. 04/02 continue tx 04/03 increase prolixin to 5mg po TID. monitor EPS. 04/06 continue tx. 04/07- pending response from [facility] to see if they will take her for further evaluation of autoimmune condition with multidisciplinary team to continue see if psychosis related to autoimmune or primarily psychosis. Some improvement in attention, less guarded. continues to have auditory hallucinations. May consider switch to clozapine given that she has tried 3 antipsychotics with limited efficacy. 04/08 start clozapine 25mg po qhs. continue prolixin 7.5mg po TID. 04/09 increase clozapine to 50mg po qhs. continue prolixin 7.5mg po TID. 04/10 decrease prolixin to 7.5mg po BID. increase clozapine to 75mg po qhs. continue increasing clozapine by 25mg/day. architectural designer, recommends repeat CT in 2 weeks, and hold on bronchoscopy. 04/11: no change today, will titrate Clozapine further tomorrow 04/12: titrate Clozapine to 100 mg QHS 04/13 increase clozapine to 125mg po qhs. continue prolixin 7.5mg po BID. 04/14 Provided update to daughter Maricruz who is HCP in terms of pt being treated for both autoimmune condition that may be contributing to psychosis (with prednione) as well as primarily psychiatric disorder (although less likely) with clozapine. some improvement in attention, slightly less paranoid but continues to present with ongoing AH of her daughter. 04/15 continue tx. 04/16 continue tx. 04/17 start glycopyrralate for drooling, decrease cogentin. 04/17 increase clozapine 150mg po qhs, lower prolixin 2.5mg po BID. back up. 04/18: Continue current management and treatment plan. 04/19: continue current management and treatment plan. 04/20 increase clozapine to 175mg po qhs. 04/21 continue tx. 04/22 continue tx. 04/23 continue tx. will check clozapine levels. 04/[address] followed up done today- much less nodules seen. 04/27 no change in presentation, less paranoid towards staff but ongoing AH. Impaired awareness of surroundings and conversations mostly base on delusional content. Will consult as well with her OP Brick Off Bearer as to whether continue prednisone as initially recommended by rheumatology for suspected lupus, although it has had additional benefits in lung nodules. 04/28 increase clozapine 200mg po qhs. 04/[address] showed improvement in her pulmonary nodules and absence of pulmonary symptoms otherwise. recommendation to taper off prednisone slowly with repeat of chest CT in 3 months for stability of reminder of nodules. her OP customer supply coordinator did want to continue prednisone for suspected lupus, may discuss further with rheumatology if they want to continue prednisone or stop it. 04/30 continue tx. 05/01 continue tx. will check clozapine level on 05/04/2505/05 continue tx. pending clozapine levels. 05/06 continue tx. 05/07 continue tx. 05/08 continue tx. 05/09 through 05/11 no change in presentation; continue treatment plan 05/12/25: No change, slept through the night. Medication compliant. Ambulate using walker, walker next to table in dining area where patient sits. Visible in common area but not attended groups. Calm, pleasant and cooperative. No notable side effects from medication. Feeling safe here I want to be home but the weather does not allow me to go home . Last BM was yesterday. Communicate with staff via written form. 05/13/25: Visible, eating and sleeping well. Medication compliant, no side effects. Denies safety concerns, denies voices. however, she is responded to internal stimuli, self dialogues at times. No behavior issues. Pending Clozaril level. 05/14/25: Patient visible, calm, pleasant and cooperative. Medication compliant, some drooling while napping in bed. Passing gas, had BM yesterday. Report feeling tired but denies depression/anxiety. She self dialogue quietly, appear responding to internal stimuli. No behavior issues. No sleeping or appetite problems. Patient observed at some point this afternoon do some coloring art work at the table. Patient was assessed by PT team, report patient is at baseline, using walker. No further assessment needed. Potential will get the bed at [facility]. 05/15/25: Visible, slept well, no appetite issues, compliant with medications. However, patient has not shower often yesterday, per nursing patient believes there was a man in her room therefore she refused to shower yesterday. She states that she will shower later on today when staff is available to help. Reports pain on her back, legs, and joint. She good like to do some coloring after lunch. Per nursing patient has raised her voice asking for tramadol a couple of times a day for pain. Appears responding to internal stimuli, but no major issues. Clazapine 313. Norclozapine 81 Therapeutic. 05/16/25: Patient slept well, no issue with appetite, compliant with medications. Calm, pleasant and cooperative. No behavior issues. Ambulate using a walker. Patient told other peers who on the table in dining area that she talks to herself and out loud because bug in her ear. Patient appeared responding to internal stimuli at baseline. 05/17/25: No issue with sleep or appetite, compliant with medications, visible in common areas at times, mostly required but self dialogue and responding to internal stimuli at times in a quiet way. Patient asked for toilet tree to shower and brush her teeth. Given Tylenol for mild pain with good effect. 05/18/25: Patient is visible in common areas, appear to be tired and sleepy at lunch at the table in dining area. Report she feels ok today, slept well and has no issues with appetite. She asks if she can get a coffee with creamer and sugar after encounter. Report gerenral pain on the back and says I need Tylenol or tramadol . Self report last BM was yesterday. Report I have bug in my ear and feeling down , and I talk to my daughter, my fiance and other peoole when asked who she usually talks to. No behavior issues. Ambulating using walker. Wait for placement. Continue with current tx plan. 05/19/25: Per note: [facility] has accepted patient for admission. Submitted PASRR level I and she will need Level II screen . Updated daughter ( affirmed HCP) and once PASRR is completed patient will transfer. Daughter expressed happiness regarding outcome and the fact that patient will be closer to them in [place]. Estimated date of discharge is within 1-2 weeks LT care bed has not opened at this time, but liaision stated it she would follow. Patient slept well, no issues with sleep, appetite, or medication compliant. She thinks she is leaving tomorrow morning. She appears bright up whenever this provider approaches her. Report she feels good and thanks for checking on her. Last BM is this morning. Continue with current tx plan. Waiting for placement. Patient educated on: diagnosis, medication risk/benefits and therapeutic strategies Guardian/Caregiver educated on: therapeutic strategies Informed Consent: understands and further education needed Reason for continued inpatient stay Substantial Risk for: med/psych decompensation Time Spent With Patient Time: Total time managing care of this patient today ____ minutes.
[2025-05-19 20:19] VITALS: BP 128/68; PULSE 77; RESP 16; TEMP 36.2; O2SAT 95
[2025-05-20 08:00] VITALS: BP 128/60; PULSE 77; RESP 18; TEMP 36.2; O2SAT 95
[2025-05-20] MEDS: Fluticasone/Vilanterol 200/25 BLST.W.DEV 1 PUFF INHALE (08:28)
[2025-05-20] MEDS: Tiotropium Bromide 2.5 mcg 1 PUFF/2.5 MCG MIST.INHAL INHALE (08:28)
[2025-05-20] MEDS: levETIRAcetam Oral Soln 500 MG/5 ML 250 MG PO ×2 (08:29→20:23)
[2025-05-20] MEDS: NIFEdipine ER 30 MG TAB.ER.24 PO (08:29)
[2025-05-20] MEDS: Albuterol Sulfate 90 MCG 8 GM INHALER 2 PUFF INHALE (08:38)
[2025-05-20 19:41] VITALS: BP 118/57; PULSE 78; RESP 16; TEMP 36.6; O2SAT 95
--- NOTE | 2025-05-20 23:31 | P.PNPSI_ITS ---
Subjective Subjective Date of Service: 05/20/25 Reason For Visit: Abnormal CT chest Subjective Notes: [place] Order and Section 8 Healthcare Proxy: Yes Guardianship: Yes Medical Problems Affecting Mental Status: No Interim History: Medical record and nursing notes reviewed; case discussed during rounds with team/nursing staff, and met with patient for supportive therapy/psychoeducation, as well as medication management. Patient slept through the night, visible, self dialogue in common areas, appear tired but brighten up when approach. Report mood is good. Denies anxiety or depression. She believes she should be leaving this morning but the Uber was canceled d/t the weather . Report feeling safe. Ask for coffee and two crackers at the end of encounter when asked if she has any questions. Also discuss with patient regarding weight gain. She says that she has salad and will reduce sugar in her coffee. Will send barrel reamer consult to talk to patient regarding healthier choices to prevent too much weight gain. Medication Compliance: Yes Side effects from medications: No Attending Groups: No Review of Systems Acute medical concerns: No Medical Review of Systems: unchanged Review of Systems Review of Systems Constitutional: Denies fatigue and Denies fever(s) Cardiovascular: Denies chest pain and Denies dyspnea Respiratory: Denies dyspnea Gastrointestinal: Denies abdominal pain Psychiatric: denies suicidal ideation Endocrine: Denies fatigue Yes all other systems are reviewed and are negative Mental Status Exam Mental Status Exam Narrative: Appearance: casual attire, adequate grooming and poor hygiene Behavior: calm, keeping to self, engagement limited by vision and hearing difficulties Orientation: alert, oriented to idea that she is in the hospital, year, month not date nor situation. Psychomotor Function: no agitation or slowing; no abnormal gestures or movements Speech: normal rate/rhythm/volume, spontaneous Mood: good Affect: calm, non-labile Thought Process: more linear/organized. Thought Content:organized Hallucinations: AH talking to daughter who is not there. At baseline Delusions: not expressed Insight: impairment Judgment: impairment Impulsivity: none noted Diagnostics Vital Signs (24Hr): Vital Signs - 24 hr 05/20/25 08:00 05/20/25 19:41 Temperature 97.2 F 97.9 F Pulse Rate 77 78 Respiratory Rate 18 16 Blood Pressure 128/60 118/57 L Pulse Oximetry 95 95 Oxygen Delivery Method Room Air Room Air BMI result Body Mass Index 31.9 Labs 03/29/25 08:55 03/29/25 08:55 EKG EKG: reviewed and other Imaging Radiology Impressions: ITS Impressions Head CT 03/05/25 15:51 IMPRESSION: 1. No acute intracranial abnormality. 2. Right-sided cochlear nerve implant with associated streak artifact. 3. Right-sided canal wall up mastoidectomy. Electronically signed by: Levi Greer MD 03/05/2025 04:25 PM EDT RP Lumbar Puncture Fluoroscopy 03/09/25 11:50 IMPRESSION: Successful fluoroscopy-guided lumbar puncture performed without immediate complications Electronically signed by: Thompson Andujar MD 03/09/2025 04:06 PM EDT RP Chest CT 03/11/25 11:52 IMPRESSION: 1. Multiple bilateral pulmonary nodules measuring up to 10 mm in size. Further evaluation should be based on Fleischner Society guidelines below. 2. Cardiomegaly. Findings consistent with pulmonary arterial hypertension. 3. No evidence of mediastinal or hilar lymphadenopathy. Fleischner Criteria for pulmonary nodule follow-up SOLID NODULES: Low risk patient: <6mm: no follow-up 6-8mm: 6 month follow-up CT >8mm: PET/Biopsy/ 3 month follow-up CT High risk patient: <6mm: 12 month follow-up CT 6-8mm: 6 month follow-up CT >8mm: PET/Biopsy/ 3 month follow-up CT SUB-SOLID/GROUNDGLASS NODULES: All patients: > or = 6mm: 6 month follow-up CT *Please note that in patients in the following categories, the Fleischner criteria do not apply: Immunocompromised, lung cancer screening population, age below 35, and patients with known malignancy Electronically signed by: Best Clemons MD 03/11/2025 01:45 PM EDT RP Head CTA 03/11/25 11:52 IMPRESSION: Head CT: No acute intracranial abnormality. CT angiogram of the head: No vascular occlusions. Electronically signed by: Gypsy Salamanca MD 03/11/2025 03:02 PM EDT RP Chest CT 04/24/25 09:58 IMPRESSION: 1. Majority of the previously seen pulmonary nodules have resolved, and were consistent with infectious or inflammatory etiology. 2. There is a persistent 9 mm nodular focus in the lateral right upper lobe, which is felt to represent scarring given the appearance. To be cautious, a 3 month interval follow-up CT is recommended to ensure stability. 3. There is mild to moderate paraseptal emphysema. There is no acute pneumonic consolidation. 4. There is thickening of the small airways suggesting bronchitis. 5. There is moderate cardiac enlargement. Enlarged main pulmonary artery is consistent with pulmonary arterial hypertension. Electronically signed by: Levi Greer MD 04/24/2025 10:56 AM EDT Medications Medications Current Medications Acetaminophen (Acetaminophen 325 Mg Tablet) 650 mg PO Q6H PRN PRN Reason: Headache/Pain, Scale 1-10 Last Admin: 05/20/25 10:04 Dose: 650 mg Al Hydroxide/Mg Hydroxide (Magnesium Hydrox/Alum Hydrox 30 Ml Oral.Susp) 30 ml PO Q6H PRN PRN Reason: Heartburn/Nausea Albuterol Sulfate (Albuterol Sulfate 90 Mcg 8 Gm Inhaler) 2 puff INHALE Q4H PRN PRN Reason: Shortness Of Breath Or Wheezing Last Admin: 05/20/25 08:38 Dose: 2 puff Atorvastatin Calcium (Atorvastatin Calcium 40 Mg Tablet) 40 mg PO DAILY [facility] Last Admin: 05/20/25 08:28 Dose: 40 mg Clonazepam (Clonazepam Odt 0.5 Mg Tab.Rapdis) 0.5 mg PO BID PRN PRN Reason: severe anxiety/sleep Last Admin: 05/10/25 05:31 Dose: 0.5 mg Clozapine (Clozapine 100 Mg Tablet) 200 mg PO BEDTIME [facility] Last Admin: 05/20/25 20:23 Dose: 200 mg Fluphenazine HCl (Fluphenazine Hcl 2.5 Mg/Ml 10 Ml Vial) 2.5 mg IM BID PRN PRN Reason: give if refuses oral per HCP Last Admin: 03/05/25 09:42 Dose: 2.5 mg Fluphenazine HCl (Fluphenazine Hcl 2.5 Mg Tablet) 2.5 mg PO BID [facility] Last Admin: 05/20/25 20:23 Dose: 2.5 mg Fluticasone/Vilanterol (Fluticasone/Vilanterol 200/25 Blst.W.Dev) 1 puff INHALE DAILY [facility] Last Admin: 05/20/25 08:28 Dose: 1 puff Glycopyrrolate (Glycopyrrolate 1 Mg Tablet) 0.5 mg PO BID [facility] Last Admin: 05/20/25 20:23 Dose: 0.5 mg Hydrochlorothiazide (Hydrochlorothiazide 25 Mg Tablet) 25 mg PO DAILY [facility] Last Admin: 05/20/25 08:28 Dose: 25 mg Levetiracetam (Levetiracetam Oral Soln 500 Mg/5 Ml) 250 mg PO BID [facility] Last Admin: 05/20/25 20:23 Dose: 250 mg Magnesium Hydroxide (Milk Of Magnesia 30 Ml Oral.Susp) 30 ml PO DAILY PRN PRN Reason: Constipation Methimazole (Methimazole 5 Mg Tablet) 5 mg PO DAILY [facility] Last Admin: 05/20/25 08:29 Dose: 5 mg Naloxone HCl (Naloxone Hcl 0.4 Mg/Ml Vial) 0.04 mg IVPUSH Q5M PRN PRN Reason: Excessive sedation or RR < 8 Nifedipine (Nifedipine Er 30 Mg Tab.Er.24) 30 mg PO DAILY [facility]; Protocol Last Admin: 05/20/25 08:29 Dose: 30 mg Olanzapine (Olanzapine 10 Mg Tablet) 10 mg PO Q6H PRN PRN Reason: severe agitation Last Admin: 04/16/25 16:28 Dose: 10 mg Prednisone (Prednisone 20 Mg Tablet) 40 mg PO DAILY [facility] Last Admin: 05/20/25 08:28 Dose: 40 mg Tiotropium Wagoner (Tiotropium Wagoner 2.5 Mcg 1 Puff/2.5 Mcg Mist.Inhal) 1 puff INHALE DAILY [facility] Last Admin: 05/20/25 08:28 Dose: 1 puff Trazodone HCl (Trazodone Hcl 50 Mg Tablet) 50 mg PO BEDTIME MRX1 PRN PRN Reason: Insomnia Last Admin: 04/04/25 23:21 Dose: 50 mg Allergies Allergies Allergy/AdvReac Type Severity Reaction Status Date / Time latex Allergy Unknown Verified 03/09/25 11:50 peanut Allergy Unknown Verified 03/09/25 11:50 Penicillins Allergy Unknown Verified 03/09/25 11:50 Assessment & Plan Assessment & Plan (1) Psychosis: Status: Acute Code(s): F29 - Unspecified psychosis not due to a substance or known physiological condition Assessment and Plan: r/o autoimmune reasons for psychosis including lupus. 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 Sharif is a 69 year-old woman who presents with a 3 month hx of new onset of psychosis (AH) and combination of paranoid delusions and cap gras delusions. No prior psychiatric hx. She does have of cocaine use but apparently had not used in some years. Daughter suspects she may have relapsed but no ongoing use. Pt presents with more complex theme of delusions. No additional medical work up available including head CT. CBC and cmp unremarkable. 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 It may be related to dementia process but complexity of delusions and psychosis not the common presentation for dementia that have psychosis early on such as in vascular dementia or LBD. Pt presents as gravely disable to able to care for self due to symptoms of psychosis and delusions. 02/03 increase night time risperidone 2mg po qhs increase cogetin at bedtime to 1mg po qhs. lower daily dose to 0.5mg po daily. continue cogentin 0.5mg po daily. clonazepam as prn olanzapine as prn for agitation 02/04 continue tx. 02/05 continue tx. 02/06 continue current dose of risperidone. NOTE THAT pt can't take doses higher than 3 mg/day of risperidone as higher doses had severe EPS. can use olanzapine as well per court order. 02/07/25: Patient has been agitated yelling loudly exist seeking, delusional thinking her daughter/son outside at the door to pick her up. PRNs given in the morning with mild effect. Patient became agitated, aggressive\, assaultive to 1 of the staff on the floor, yelling and hitting her face so grabbing her neck. Physical was started at 16:31 to 1634. Patient was given IM medication of Zyprexa 10 and Valium 10 with good effect. Tomorrow plan: Patient will be benefit from Valium 10 mg twice a day and Zyprexa 5 mg 3 times a day is added into her scheduled medication as current plan with risperidone is not effective. Patient also having a backup for risperidone if she refused. 02/08/25: Slept most of the morning and last night. In better behavior control. No aggressive behavior. She is quiet, self dialogue, and medication compliant. Due to receive restrain medication yesterday. I did not make any medication change. But the Valium and additional Zyprexa appears to be helpful. 02/09 will try to change keppra to depakote for seizures as keppra may exacerbate psychosis. increase risperidone 1mg po daily and 2mg po qhs. may need to add second antipsychotic. 02/10 continues to present as paranoid with AH. at times declines oral medications, requiring IM back per court order. 02/11 continue tx. 02/12 continue tx. 02/13 continue tx. 02/14: no changes today. Monitor for agitation around confusion about hospitalization 02/15: no changes today, self dialogue more overt/extensive today 02/16 add olanzapine 5mg po qhs. continue risperidone. minimal improvement if any. 02/17 continue tx. 02/18 seems more somnolent with bedtime olanzapine, will continue to monitor. 02/19 cbc showed thrombocytopenia, which is new and suspect related to depakote 02/20 pt appears more sedated since addition of olanzapine at bedtime. She continues to self dialogue. minimal improvement. 02/21: Continue current management and treatment plan. 02/22: continue current management and treatment plan. 02/23 continue tx. may need to affirm HCP try different antipsychotic. 02/24 continue tx. results of LENORE 1:360, pattern homogenous A. 02/25 will try rexulti, lower risperidone. pending coordination of medical care to see if underlying autoimmune condition has anything to do with current presentation. 02/26 discussed with hospital sales contract administrator to dismiss sect 8, HCP invoked and can consent to other treatment. daughter Maricruz give permission to try different antipsychotic. 02/27 decrease risperidone to 1mg po daily, start prolixin 2.5mg po qhs, then increase to BID. continue olanzapine prn for agitation. olanzapine as well per court order. 03/03 pt seen by neurology, added HIV/RPR/LYME, can't have MRI due to cochlear implant. 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 Last Neurology appointment 01/2024. Missed appointment with rheumatology 05/2024, last seen in 02/26/2024. - Pt can't have MRI due to cochlear implant. Had head CT. - continue prolixin 2.5mg po daily, 5mg po qhs. will d/c risperidone, increase prolixin 5mg po BID, back up IM. 03/05 continue tx. 03/06 This movie writer spoke with pt's director of strategic initiatives, Dr. Al obtained collateral information. Will coordinate with neurology and rheumatology once LP results are available. r/o reoccurance of pachymeningitis, lupus or other autoimmune cause for psychosis. 03/07: Continue current regimen and plans. Discontinued one-to-one and put in place 5 minute checks 03/08: Continue current plans and regimen 03/09 continue tx. 03/10: continue current mgmt. continues disorganized and psychotic. see neuro note from today. continue with neuro w/u. 03/11: given zyprexa 5 and valium [address] and head CTA. head CTA WNL, chest CT showed numerous pulmonary nodules up to 10 mm in size. no change in presentation. due to persistent requests for discharge, 3-day notice submitted on her behalf. will work toward HCP affirmation by the court. 03/12: per pulm consult, chest CT more c/w rheumatological process than CA, recommended empiric steroid course. awaiting input from neuro. consider Bx of nodules otherwise. continue current mgmt for now. 03/13: variably calm and agitated. planning for bronchoscopy with pulmonary nodule Bx on sunday. continue current mgmt. case discussed with HCP Maricruz (daughter), who is in agreement with plan. 03/14: CSF with notable findings. will f/u with neuro on sunday. stable presentation for now, remains quite psychotic. continue current mgmt. bronchoscopy sunday. 03/15: no change from yesterday in presentation or plan. 03/16: stable presentation. continues confused, wanting to go home. HCP affirmation tomorrow. continue current mgmt. 03/17: stable presdentation. bronchoscopy pending. continue current mgmt. 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 awaiting bronchoscopy. remains psychotic. continue current mgmt for now. 03/20: no change in presentation. still awaiting go-ahead for brochoscopy. continue current mgmt. 03/22: No changes. Noted above. 03/23: awaiting insurance approval for bronchoscopy. stable presentation. 03/24: as for yesterday. 03/25: loudly RIS in milieu today. bronchoscopy scheduled for sunday at 1130. NPO past MN night. stable presentation. continue current mgmt. 03/26 pt presents as more disorganized and inattentive than usual showing more signs of delirious behavior. bronchoscopy was canceled,due to shortage of needles to complete biopsy. will order cbc, cmp, ammonia levels given increase disorganized behavior and worsening attention pointing at a more delirious presentation. * Review of results from LP showing negative results for meningitis panel/paraneoplastic panel (including most common antibody found in SLC which is EARL 1 which was negative), elevated protein in CSF 131 without leukocytosis, also elevated CSF/serum IgG index. elevated anti-ds dna titer 1:80. Such results may point more to a rheumatological condition than infectious condition or malignancy. Mrs. Sharif's OP director of strategic initiatives, Dr. Al recommends trial of prednisone 40mg po daily at least for 2 weeks. 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 03/31 increase prolixin to 5mg po BID. continue all other medications including prednisone 40mg po daily. 04/01 discussed with her OP director of strategic initiatives, Dr. Al possibility of transferring to [facility] for further tx of autoimmune condition, suspected also having lupus. continue prednisone. Spoke with daughter who is HCP, daughter concern about pt going to [facility] [place] due to being dismissed several times when pt was first brought psychotic. 04/02 continue tx 04/03 increase prolixin to 5mg po TID. monitor EPS. 04/06 continue tx. 04/07- pending response from [facility] [place] to see if they will take her for further evaluation of autoimmune condition with multidisciplinary team to continue see if psychosis related to autoimmune or primarily psychosis. Some improvement in attention, less guarded. continues to have auditory hallucinations. May consider switch to clozapine given that she has tried 3 antipsychotics with limited efficacy. 04/08 start clozapine 25mg po qhs. continue prolixin 7.5mg po TID. 04/09 increase clozapine to 50mg po qhs. continue prolixin 7.5mg po TID. 04/10 decrease prolixin to 7.5mg po BID. increase clozapine to 75mg po qhs. continue increasing clozapine by 25mg/day. cement finisher helper, recommends repeat CT in 2 weeks, and hold on bronchoscopy. 04/11: no change today, will titrate Clozapine further tomorrow 04/12: titrate Clozapine to 100 mg QHS 04/13 increase clozapine to 125mg po qhs. continue prolixin 7.5mg po BID. 04/14 Provided update to daughter Maricruz who is HCP in terms of pt being treated for both autoimmune condition that may be contributing to psychosis (with prednione) as well as primarily psychiatric disorder (although less likely) with clozapine. some improvement in attention, slightly less paranoid but continues to present with ongoing AH of her daughter. 04/15 continue tx. 04/16 continue tx. 04/17 start glycopyrralate for drooling, decrease cogentin. 04/17 increase clozapine 150mg po qhs, lower prolixin 2.5mg po BID. back up. 04/18: Continue current management and treatment plan. 04/19: continue current management and treatment plan. 04/20 increase clozapine to 175mg po qhs. 04/21 continue tx. 04/22 continue tx. 04/23 continue tx. will check clozapine levels. 04/[address] followed up done today- much less nodules seen. 04/27 no change in presentation, less paranoid towards staff but ongoing AH. Impaired awareness of surroundings and conversations mostly base on delusional content. Will consult as well with her OP Shop Mechanic Helper as to whether continue prednisone as initially recommended by rheumatology for suspected lupus, although it has had additional benefits in lung nodules. 04/28 increase clozapine 200mg po qhs. 04/[address] showed improvement in her pulmonary nodules and absence of pulmonary symptoms otherwise. recommendation to taper off prednisone slowly with repeat of chest CT in 3 months for stability of reminder of nodules. her OP director of strategic initiatives did want to continue prednisone for suspected lupus, may discuss further with rheumatology if they want to continue prednisone or stop it. 04/30 continue tx. 05/01 continue tx. will check clozapine level on 05/04/2505/05 continue tx. pending clozapine levels. 05/06 continue tx. 05/07 continue tx. 05/08 continue tx. 05/09 through 05/11 no change in presentation; continue treatment plan 05/12/25: No change, slept through the night. Medication compliant. Ambulate using walker, walker next to table in dining area where patient sits. Visible in common area but not attended groups. Calm, pleasant and cooperative. No notable side effects from medication. Feeling safe here I want to be home but the weather does not allow me to go home . Last BM was yesterday. Communicate with staff via written form. 05/13/25: Visible, eating and sleeping well. Medication compliant, no side effects. Denies safety concerns, denies voices. however, she is responded to internal stimuli, self dialogues at times. No behavior issues. Pending Clozaril level. 05/14/25: Patient visible, calm, pleasant and cooperative. Medication compliant, some drooling while napping in bed. Passing gas, had BM yesterday. Report feeling tired but denies depression/anxiety. She self dialogue quietly, appear responding to internal stimuli. No behavior issues. No sleeping or appetite problems. Patient observed at some point this afternoon do some coloring art work at the table. Patient was assessed by PT team, report patient is at baseline, using walker. No further assessment needed. Potential will get the bed at [facility]. 05/15/25: Visible, slept well, no appetite issues, compliant with medications. However, patient has not shower often yesterday, per nursing patient believes there was a man in her room therefore she refused to shower yesterday. She states that she will shower later on today when staff is available to help. Reports pain on her back, legs, and joint. She good like to do some coloring after lunch. Per nursing patient has raised her voice asking for tramadol a couple of times a day for pain. Appears responding to internal stimuli, but no major issues. Clazapine 313. Norclozapine 81 Therapeutic. 05/16/25: Patient slept well, no issue with appetite, compliant with medications. Calm, pleasant and cooperative. No behavior issues. Ambulate using a walker. Patient told other peers who on the table in dining area that she talks to herself and out loud because bug in her ear. Patient appeared responding to internal stimuli at baseline. 05/17/25: No issue with sleep or appetite, compliant with medications, visible in common areas at times, mostly required but self dialogue and responding to internal stimuli at times in a quiet way. Patient asked for toilet tree to shower and brush her teeth. Given Tylenol for mild pain with good effect. 05/18/25: Patient is visible in common areas, appear to be tired and sleepy at lunch at the table in dining area. Report she feels ok today, slept well and has no issues with appetite. She asks if she can get a coffee with creamer and sugar after encounter. Report gerenral pain on the back and says I need Tylenol or tramadol . Self report last BM was yesterday. Report I have bug in my ear and feeling down , and I talk to my daughter, my fiance and other peoole when asked who she usually talks to. No behavior issues. Ambulating using walker. Wait for placement. Continue with current tx plan. 05/19/25: Per note: [facility] has accepted patient for admission. Submitted PASRR level I and she will need Level II screen . Updated daughter ( affirmed HCP) and once PASRR is completed patient will transfer. Daughter expressed happiness regarding outcome and the fact that patient will be closer to them in [place]. Estimated date of discharge is within 1-2 weeks LT care bed has not opened at this time, but liaision stated it she would follow. Patient slept well, no issues with sleep, appetite, or medication compliant. She thinks she is leaving tomorrow morning. She appears bright up whenever this provider approaches her. Report she feels good and thanks for checking on her. Last BM is this morning. Continue with current tx plan. Waiting for placement. 05/20/25: Patient slept through the night, visible, self dialogue in common areas, appear tired but brighten up when approach. Report mood is good. Denies anxiety or depression. She believes she should be leaving this morning but the [employer] was canceled d/t the weather . Report feeling safe. Ask for coffee and two crackers at the end of encounter when asked if she has any questions. Also discuss with patient regarding weight gain. She says that she has salad and will reduce sugar in her coffee. Will send barrel reamer consult to talk to patient regarding healthier choices to prevent too much weight gain. Patient educated on: medication risk/benefits and therapeutic strategies Informed Consent: understands and further education needed Reason for continued inpatient stay Substantial Risk for: med/psych decompensation Time Spent With Patient Time: Total time managing care of this patient today ____ minutes.
[2025-05-21 07:00] VITALS: BMI 34.1
[2025-05-21 09:23] VITALS: BP 119/61; PULSE 59; RESP 16; TEMP 36.6; O2SAT 94
[2025-05-21] MEDS: Fluticasone/Vilanterol 200/25 BLST.W.DEV 1 PUFF INHALE (09:30)
[2025-05-21] MEDS: Tiotropium Bromide 2.5 mcg 1 PUFF/2.5 MCG MIST.INHAL INHALE (09:30)
[2025-05-21] MEDS: levETIRAcetam Oral Soln 500 MG/5 ML 250 MG PO ×2 (09:31→20:28)
[2025-05-21] MEDS: NIFEdipine ER 30 MG TAB.ER.24 PO (09:32)
--- NOTE | 2025-05-21 14:11 | P.PNPSI_ITS ---
Subjective Subjective Date of Service: 05/21/25 Reason For Visit: Abnormal CT chest Subjective Notes: Section 8 Interim History: Patient found sitting on her bed. She has poor sight and hearing impairment. Most of the interview was conducted in writing which patient read/understood and gave responses. She feels ?good? today. She denies anxiety or depression. She denies SI/HI/AH/VH. She denies pain. No behavioral disturbance. Per nursing, patient slept 8 hours last night. Medication Compliance: Yes Side effects from medications: No Review of Systems Acute medical concerns: No Mental Status Exam Mental Status Exam Narrative: Appearance: casual attire, unkempt hair, grooming otherwise adequate, poor hygiene Behavior: calm, keeping to self, minimal eye contact, engagement limited by vision and hearing difficulties Orientation: alert, oriented to idea that she is in the hospital, year, month not date nor situation Psychomotor Function: no agitation or slowing; no abnormal gestures or movements Speech: normal rate/rhythm/volume, spontaneous Mood: good Affect: Blunted Thought Process: Linear, self dialogue Thought Content: On treatment Hallucinations: Denies but self dialogues Delusions: not expressed Insight: Impaired Judgment: Impaired Impulsivity: none noted Diagnostics Vital Signs (24Hr): Vital Signs - 24 hr 05/20/25 19:41 05/21/25 09:23 Temperature 97.9 F 98 F Pulse Rate 78 59 Respiratory Rate 16 16 Blood Pressure 118/57 L 119/61 Pulse Oximetry 95 94 Oxygen Delivery Method Room Air Room Air BMI result Body Mass Index 31.9 Labs 03/29/25 08:55 03/29/25 08:55 Imaging Radiology Impressions: ITS Impressions Head CT 03/05/25 15:51 IMPRESSION: 1. No acute intracranial abnormality. 2. Right-sided cochlear nerve implant with associated streak artifact. 3. Right-sided canal wall up mastoidectomy. Electronically signed by: Levi Greer MD 03/05/2025 04:25 PM EDT RP Lumbar Puncture Fluoroscopy 03/09/25 11:50 IMPRESSION: Successful fluoroscopy-guided lumbar puncture performed without immediate complications Electronically signed by: Thompson Andujar MD 03/09/2025 04:06 PM EDT RP Chest CT 03/11/25 11:52 IMPRESSION: 1. Multiple bilateral pulmonary nodules measuring up to 10 mm in size. Further evaluation should be based on Fleischner Society guidelines below. 2. Cardiomegaly. Findings consistent with pulmonary arterial hypertension. 3. No evidence of mediastinal or hilar lymphadenopathy. Fleischner Criteria for pulmonary nodule follow-up SOLID NODULES: Low risk patient: <6mm: no follow-up 6-8mm: 6 month follow-up CT >8mm: PET/Biopsy/ 3 month follow-up CT High risk patient: <6mm: 12 month follow-up CT 6-8mm: 6 month follow-up CT >8mm: PET/Biopsy/ 3 month follow-up CT SUB-SOLID/GROUNDGLASS NODULES: All patients: > or = 6mm: 6 month follow-up CT *Please note that in patients in the following categories, the Fleischner criteria do not apply: Immunocompromised, lung cancer screening population, age below 35, and patients with known malignancy Electronically signed by: Best Clemons MD 03/11/2025 01:45 PM EDT RP Head CTA 03/11/25 11:52 IMPRESSION: Head CT: No acute intracranial abnormality. CT angiogram of the head: No vascular occlusions. Electronically signed by: Gypsy Salamanca MD 03/11/2025 03:02 PM EDT RP Chest CT 04/24/25 09:58 IMPRESSION: 1. Majority of the previously seen pulmonary nodules have resolved, and were consistent with infectious or inflammatory etiology. 2. There is a persistent 9 mm nodular focus in the lateral right upper lobe, which is felt to represent scarring given the appearance. To be cautious, a 3 month interval follow-up CT is recommended to ensure stability. 3. There is mild to moderate paraseptal emphysema. There is no acute pneumonic consolidation. 4. There is thickening of the small airways suggesting bronchitis. 5. There is moderate cardiac enlargement. Enlarged main pulmonary artery is consistent with pulmonary arterial hypertension. Electronically signed by: Levi Greer MD 04/24/2025 10:56 AM EDT RP Medications Medications Current Medications Acetaminophen (Acetaminophen 325 Mg Tablet) 650 mg PO Q6H PRN PRN Reason: Headache/Pain, Scale 1-10 Last Admin: 05/21/25 10:01 Dose: 650 mg Al Hydroxide/Mg Hydroxide (Magnesium Hydrox/Alum Hydrox 30 Ml Oral.Susp) 30 ml PO Q6H PRN PRN Reason: Heartburn/Nausea Albuterol Sulfate (Albuterol Sulfate 90 Mcg 8 Gm Inhaler) 2 puff INHALE Q4H PRN PRN Reason: Shortness Of Breath Or Wheezing Last Admin: 05/20/25 08:38 Dose: 2 puff Atorvastatin Calcium (Atorvastatin Calcium 40 Mg Tablet) 40 mg PO DAILY [facility] Last Admin: 05/21/25 09:32 Dose: 40 mg Clonazepam (Clonazepam Odt 0.5 Mg Tab.Rapdis) 0.5 mg PO BID PRN PRN Reason: severe anxiety/sleep Last Admin: 05/10/25 05:31 Dose: 0.5 mg Clozapine (Clozapine 100 Mg Tablet) 200 mg PO BEDTIME [facility] Last Admin: 05/20/25 20:23 Dose: 200 mg Fluphenazine HCl (Fluphenazine Hcl 2.5 Mg/Ml 10 Ml Vial) 2.5 mg IM BID PRN PRN Reason: give if refuses oral per HCP Last Admin: 03/05/25 09:42 Dose: 2.5 mg Fluphenazine HCl (Fluphenazine Hcl 2.5 Mg Tablet) 2.5 mg PO BID [facility] Last Admin: 05/21/25 09:32 Dose: 2.5 mg Fluticasone/Vilanterol (Fluticasone/Vilanterol 200/25 Blst.W.Dev) 1 puff INHALE DAILY [facility] Last Admin: 05/21/25 09:30 Dose: 1 puff Glycopyrrolate (Glycopyrrolate 1 Mg Tablet) 0.5 mg PO BID [facility] Last Admin: 05/21/25 09:32 Dose: 0.5 mg Hydrochlorothiazide (Hydrochlorothiazide 25 Mg Tablet) 25 mg PO DAILY [facility] Last Admin: 05/21/25 09:32 Dose: 25 mg Levetiracetam (Levetiracetam Oral Soln 500 Mg/5 Ml) 250 mg PO BID [facility] Last Admin: 05/21/25 09:31 Dose: 250 mg Magnesium Hydroxide (Milk Of Magnesia 30 Ml Oral.Susp) 30 ml PO DAILY PRN PRN Reason: Constipation Methimazole (Methimazole 5 Mg Tablet) 5 mg PO DAILY [facility] Last Admin: 05/21/25 09:32 Dose: 5 mg Naloxone HCl (Naloxone Hcl 0.4 Mg/Ml Vial) 0.04 mg IVPUSH Q5M PRN PRN Reason: Excessive sedation or RR < 8 Nifedipine (Nifedipine Er 30 Mg Tab.Er.24) 30 mg PO DAILY [facility]; Protocol Last Admin: 05/21/25 09:32 Dose: 30 mg Olanzapine (Olanzapine 10 Mg Tablet) 10 mg PO Q6H PRN PRN Reason: severe agitation Last Admin: 04/16/25 16:28 Dose: 10 mg Prednisone (Prednisone 20 Mg Tablet) 40 mg PO DAILY [facility] Last Admin: 05/21/25 09:32 Dose: 40 mg Tiotropium [place] (Tiotropium [place] 2.5 Mcg 1 Puff/2.5 Mcg Mist.Inhal) 1 puff INHALE DAILY [facility] Last Admin: 05/21/25 09:30 Dose: 1 puff Trazodone HCl (Trazodone Hcl 50 Mg Tablet) 50 mg PO BEDTIME MRX1 PRN PRN Reason: Insomnia Last Admin: 04/04/25 23:21 Dose: 50 mg Allergies Allergies Allergy/AdvReac Type Severity Reaction Status Date / Time latex Allergy Unknown Verified 03/09/25 11:50 peanut Allergy Unknown Verified 03/09/25 11:50 Penicillins Allergy Unknown Verified 03/09/25 11:50 Assessment & Plan Assessment & Plan (1) Psychosis: Status: Acute Code(s): F29 - Unspecified psychosis not due to a substance or known physiological condition Assessment and Plan: r/o autoimmune reasons for psychosis including lupus. 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 Sharif is a 69 year-old woman who presents with a 3 month hx of new onset of psychosis (AH) and combination of paranoid delusions and cap gras delusions. No prior psychiatric hx. She does have of cocaine use but apparently had not used in some years. Daughter suspects she may have relapsed but no ongoing use. Pt presents with more complex theme of delusions. No additional medical work up available including head CT. CBC and cmp unremarkable. 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 It may be related to dementia process but complexity of delusions and psychosis not the common presentation for dementia that have psychosis early on such as in vascular dementia or LBD. Pt presents as gravely disable to able to care for self due to symptoms of psychosis and delusions. 02/03 increase night time risperidone 2mg po qhs increase cogetin at bedtime to 1mg po qhs. lower daily dose to 0.5mg po daily. continue cogentin 0.5mg po daily. clonazepam as prn olanzapine as prn for agitation 02/04 continue tx. 02/05 continue tx. 02/06 continue current dose of risperidone. NOTE THAT pt can't take doses higher than 3 mg/day of risperidone as higher doses had severe EPS. can use olanzapine as well per court order. 02/07/25: Patient has been agitated yelling loudly exist seeking, delusional thinking her daughter/son outside at the door to pick her up. PRNs given in the morning with mild effect. Patient became agitated, aggressive\, assaultive to 1 of the staff on the floor, yelling and hitting her face so grabbing her neck. Physical was started at 16:31 to 1634. Patient was given IM medication of Zyprexa 10 and Valium 10 with good effect. Tomorrow plan: Patient will be benefit from Valium 10 mg twice a day and Zyprexa 5 mg 3 times a day is added into her scheduled medication as current plan with risperidone is not effective. Patient also having a backup for risperidone if she refused. 02/08/25: Slept most of the morning and last night. In better behavior control. No aggressive behavior. She is quiet, self dialogue, and medication compliant. Due to receive restrain medication yesterday. I did not make any medication change. But the Valium and additional Zyprexa appears to be helpful. 02/09 will try to change keppra to depakote for seizures as keppra may exacerbate psychosis. increase risperidone 1mg po daily and 2mg po qhs. may need to add second antipsychotic. 02/10 continues to present as paranoid with AH. at times declines oral medications, requiring IM back per court order. 02/11 continue tx. 02/12 continue tx. 02/13 continue tx. 02/14: no changes today. Monitor for agitation around confusion about hospitalization 02/15: no changes today, self dialogue more overt/extensive today 02/16 add olanzapine 5mg po qhs. continue risperidone. minimal improvement if any. 02/17 continue tx. 02/18 seems more somnolent with bedtime olanzapine, will continue to monitor. 02/19 cbc showed thrombocytopenia, which is new and suspect related to depakote 02/20 pt appears more sedated since addition of olanzapine at bedtime. She continues to self dialogue. minimal improvement. 02/21: Continue current management and treatment plan. 02/22: continue current management and treatment plan. 02/23 continue tx. may need to affirm HCP try different antipsychotic. 02/24 continue tx. results of LENORE 1:360, pattern homogenous A. 02/25 will try rexulti, lower risperidone. pending coordination of medical care to see if underlying autoimmune condition has anything to do with current presentation. 02/26 discussed with hospital civil attorney to dismiss sect 8, HCP invoked and can consent to other treatment. daughter Maricruz give permission to try different antipsychotic. 02/27 decrease risperidone to 1mg po daily, start prolixin 2.5mg po qhs, then increase to BID. continue olanzapine prn for agitation. olanzapine as well per court order. 03/03 pt seen by neurology, added HIV/RPR/LYME, can't have MRI due to cochlear implant. 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 Last Neurology appointment 01/2024. Missed appointment with rheumatology 05/2024, last seen in 02/26/2024. - Pt can't have MRI due to cochlear implant. Had head CT. - continue prolixin 2.5mg po daily, 5mg po qhs. will d/c risperidone, increase prolixin 5mg po BID, back up IM. 03/05 continue tx. 03/06 This medical technical writer spoke with pt's blanker operator, Dr. Al obtained collateral information. Will coordinate with neurology and rheumatology once LP results are available. r/o reoccurance of pachymeningitis, lupus or other autoimmune cause for psychosis. 03/07: Continue current regimen and plans. Discontinued one-to-one and put in place 5 minute checks 03/08: Continue current plans and regimen 03/09 continue tx. 03/10: continue current mgmt. continues disorganized and psychotic. see neuro note from today. continue with neuro w/u. 03/11: given zyprexa 5 and valium [address] and head CTA. head CTA WNL, chest CT showed numerous pulmonary nodules up to 10 mm in size. no change in presentation. due to persistent requests for discharge, 3-day notice submitted on her behalf. will work toward HCP affirmation by the court. 03/12: per pulm consult, chest CT more c/w rheumatological process than CA, recommended empiric steroid course. awaiting input from neuro. consider Bx of nodules otherwise. continue current mgmt for now. 03/13: variably calm and agitated. planning for bronchoscopy with pulmonary nodule Bx on sunday. continue current mgmt. case discussed with HCP Maricruz (daughter), who is in agreement with plan. 03/14: CSF with notable findings. will f/u with neuro on sunday. stable presentation for now, remains quite psychotic. continue current mgmt. bronchoscopy sunday. 03/15: no change from yesterday in presentation or plan. 03/16: stable presentation. continues confused, wanting to go home. HCP affirmation tomorrow. continue current mgmt. 03/17: stable presdentation. bronchoscopy pending. continue current mgmt. 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 awaiting bronchoscopy. remains psychotic. continue current mgmt for now. 03/20: no change in presentation. still awaiting go-ahead for brochoscopy. continue current mgmt. 03/22: No changes. Noted above. 03/23: awaiting insurance approval for bronchoscopy. stable presentation. 03/24: as for yesterday. 03/25: loudly RIS in milieu today. bronchoscopy scheduled for sunday at 1130. NPO past MN night. stable presentation. continue current mgmt. 03/26 pt presents as more disorganized and inattentive than usual showing more signs of delirious behavior. bronchoscopy was canceled,due to shortage of needles to complete biopsy. will order cbc, cmp, ammonia levels given increase disorganized behavior and worsening attention pointing at a more delirious presentation. * Review of results from LP showing negative results for meningitis panel/paraneoplastic panel (including most common antibody found in SLC which is EARL 1 which was negative), elevated protein in CSF 131 without leukocytosis, also elevated CSF/serum IgG index. elevated anti-ds dna titer 1:80. Such results may point more to a rheumatological condition than infectious condition or malignancy. Mrs. Sharif's OP blanker operator, Dr. Al recommends trial of prednisone 40mg po daily at least for 2 weeks. 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 03/31 increase prolixin to 5mg po BID. continue all other medications including prednisone 40mg po daily. 04/01 discussed with her OP blanker operator, Dr. Al possibility of transferring to [facility] for further tx of autoimmune condition, suspected also having lupus. continue prednisone. Spoke with daughter who is HCP, daughter concern about pt going to [facility] due to being dismissed several times when pt was first brought psychotic. 04/02 continue tx 04/03 increase prolixin to 5mg po TID. monitor EPS. 04/06 continue tx. 04/07- pending response from [facility] to see if they will take her for further evaluation of autoimmune condition with multidisciplinary team to continue see if psychosis related to autoimmune or primarily psychosis. Some improvement in attention, less guarded. continues to have auditory hallucinations. May consider switch to clozapine given that she has tried 3 antipsychotics with limited efficacy. 04/08 start clozapine 25mg po qhs. continue prolixin 7.5mg po TID. 04/09 increase clozapine to 50mg po qhs. continue prolixin 7.5mg po TID. 04/10 decrease prolixin to 7.5mg po BID. increase clozapine to 75mg po qhs. continue increasing clozapine by 25mg/day. emergency vehicle technician, recommends repeat CT in 2 weeks, and hold on bronchoscopy. 04/11: no change today, will titrate Clozapine further tomorrow 04/12: titrate Clozapine to 100 mg QHS 04/13 increase clozapine to 125mg po qhs. continue prolixin 7.5mg po BID. 04/14 Provided update to daughter Maricruz who is HCP in terms of pt being treated for both autoimmune condition that may be contributing to psychosis (with prednione) as well as primarily psychiatric disorder (although less likely) with clozapine. some improvement in attention, slightly less paranoid but continues to present with ongoing AH of her daughter. 04/15 continue tx. 04/16 continue tx. 04/17 start glycopyrralate for drooling, decrease cogentin. 04/17 increase clozapine 150mg po qhs, lower prolixin 2.5mg po BID. back up. 04/18: Continue current management and treatment plan. 04/19: continue current management and treatment plan. 04/20 increase clozapine to 175mg po qhs. 04/21 continue tx. 04/22 continue tx. 04/23 continue tx. will check clozapine levels. 04/[address] followed up done today- much less nodules seen. 04/27 no change in presentation, less paranoid towards staff but ongoing AH. Impaired awareness of surroundings and conversations mostly base on delusional content. Will consult as well with her OP Soil Sampler as to whether continue prednisone as initially recommended by rheumatology for suspected lupus, although it has had additional benefits in lung nodules. 04/28 increase clozapine 200mg po qhs. 04/[address] showed improvement in her pulmonary nodules and absence of pulmonary symptoms otherwise. recommendation to taper off prednisone slowly with repeat of chest CT in 3 months for stability of reminder of nodules. her OP blanker operator did want to continue prednisone for suspected lupus, may discuss further with rheumatology if they want to continue prednisone or stop it. 04/30 continue tx. 05/01 continue tx. will check clozapine level on 05/04/2505/05 continue tx. pending clozapine levels. 05/06 continue tx. 05/07 continue tx. 05/08 continue tx. 05/09 through 05/11 no change in presentation; continue treatment plan 05/12/25: No change, slept through the night. Medication compliant. Ambulate using walker, walker next to table in dining area where patient sits. Visible in common area but not attended groups. Calm, pleasant and cooperative. No notable side effects from medication. Feeling safe here I want to be home but the weather does not allow me to go home . Last BM was yesterday. Communicate with staff via written form. 05/13/25: Visible, eating and sleeping well. Medication compliant, no side effects. Denies safety concerns, denies voices. however, she is responded to internal stimuli, self dialogues at times. No behavior issues. Pending Clozaril level. 05/14/25: Patient visible, calm, pleasant and cooperative. Medication compliant, some drooling while napping in bed. Passing gas, had BM yesterday. Report feeling tired but denies depression/anxiety. She self dialogue quietly, appear responding to internal stimuli. No behavior issues. No sleeping or appetite problems. Patient observed at some point this afternoon do some coloring art work at the table. Patient was assessed by PT team, report patient is at baseline, using walker. No further assessment needed. Potential will get the bed at [facility]. 05/15/25: Visible, slept well, no appetite issues, compliant with medications. However, patient has not shower often yesterday, per nursing patient believes there was a man in her room therefore she refused to shower yesterday. She states that she will shower later on today when staff is available to help. Reports pain on her back, legs, and joint. She good like to do some coloring after lunch. Per nursing patient has raised her voice asking for tramadol a couple of times a day for pain. Appears responding to internal stimuli, but no major issues. Clazapine 313. Norclozapine 81 Therapeutic. 05/16/25: Patient slept well, no issue with appetite, compliant with medications. Calm, pleasant and cooperative. No behavior issues. Ambulate using a walker. Patient told other peers who on the table in dining area that she talks to herself and out loud because bug in her ear. Patient appeared responding to internal stimuli at baseline. 05/17/25: No issue with sleep or appetite, compliant with medications, visible in common areas at times, mostly required but self dialogue and responding to internal stimuli at times in a quiet way. Patient asked for toilet tree to shower and brush her teeth. Given Tylenol for mild pain with good effect. 05/18/25: Patient is visible in common areas, appear to be tired and sleepy at lunch at the table in dining area. Report she feels ok today, slept well and has no issues with appetite. She asks if she can get a coffee with creamer and sugar after encounter. Report gerenral pain on the back and says I need Tylenol or tramadol . Self report last BM was yesterday. Report I have bug in my ear and feeling down , and I talk to my daughter, my fiance and other peoole when asked who she usually talks to. No behavior issues. Ambulating using walker. Wait for placement. Continue with current tx plan. 05/19/25: Per note: [facility] has accepted patient for admission. Submitted PASRR level I and she will need Level II screen . Updated daughter ( affirmed HCP) and once PASRR is completed patient will transfer. Daughter expressed happiness regarding outcome and the fact that patient will be closer to them in [place]. Estimated date of discharge is within 1-2 weeks LT care bed has not opened at this time, but liaision stated it she would follow. Patient slept well, no issues with sleep, appetite, or medication compliant. She thinks she is leaving tomorrow morning. She appears bright up whenever this provider approaches her. Report she feels good and thanks for checking on her. Last BM is this morning. Continue with current tx plan. Waiting for placement. 05/20/25: Patient slept through the night, visible, self dialogue in common areas, appear tired but brighten up when approach. Report mood is good. Denies anxiety or depression. She believes she should be leaving this morning but the Uber was canceled d/t the weather . Report feeling safe. Ask for coffee and two crackers at the end of encounter when asked if she has any questions. Also discuss with patient regarding weight gain. She says that she has salad and will reduce sugar in her coffee. Will send explosive operator grenade consult to talk to patient regarding healthier choices to prevent too much weight gain. 05/21: Continue current treatment regimen. Plan to discharge next week. Patient educated on: therapeutic strategies Reason for continued inpatient stay Substantial Risk for: rapid decompensation Time Spent With Patient Time: Total time managing care of this patient today ____ minutes.
[2025-05-21 18:15] VITALS: BMI 37.7
[2025-05-21 19:55] VITALS: BP 137/64; PULSE 68; RESP 16; TEMP 37; O2SAT 94
[2025-05-22 08:43] VITALS: BP 115/57; PULSE 70; RESP 78; TEMP 36.3; O2SAT 95
[2025-05-22] MEDS: levETIRAcetam Oral Soln 500 MG/5 ML 250 MG PO ×2 (08:51→20:39)
[2025-05-22] MEDS: Fluticasone/Vilanterol 200/25 BLST.W.DEV 1 PUFF INHALE (08:51)
[2025-05-22] MEDS: Tiotropium Bromide 2.5 mcg 1 PUFF/2.5 MCG MIST.INHAL INHALE (08:51)
[2025-05-22] MEDS: NIFEdipine ER 30 MG TAB.ER.24 PO (08:52)
[2025-05-22] MEDS: Albuterol Sulfate 90 MCG 8 GM INHALER 2 PUFF INHALE (08:55)
--- NOTE | 2025-05-22 09:34 | HO.PSYCHPN ---
Subjective Subjective Date of Service: 05/22/25 Reason For Visit: Abnormal CT chest Subjective Notes: [place] Order and Section 8 Healthcare Proxy: Yes Guardianship: Yes Medical Problems Affecting Mental Status: No Interim History: Medical record and nursing notes reviewed; case discussed during rounds with team/nursing staff, and met with patient for supportive therapy/psychoeducation, as well as medication management. Patient slept 8 hours, compliant with meds. Informed that Metformin will add on today to help with weight control. Patient states that she will take no meds. However, when nurse offered Metformin, patient took it without any issues. Patient request crackers which nursing asked patient to not having it as lunch will be here in 20-30 min. Patient was irritable regarding not given snack she asked for. Patient responded to internal stimuli, reported that she is taking to my siblings when she was out in dinning room talking to someone who are not there. Potential to be discharged next week with [facility]. Medication Compliance: Yes Side effects from medications: No (Weight gain) Attending Groups: No Review of Systems Acute medical concerns: No Medical Review of Systems: unchanged Review of Systems Review of Systems Constitutional: Denies fatigue and Denies fever(s) Cardiovascular: Denies chest pain and Denies dyspnea Respiratory: Denies dyspnea Gastrointestinal: Denies abdominal pain Psychiatric: denies suicidal ideation Endocrine: Denies fatigue Yes all other systems are reviewed and are negative Mental Status Exam Mental Status Exam Narrative: Appearance: casual attire, unkempt hair, grooming otherwise adequate, poor hygiene Behavior: calm, keeping to self, minimal eye contact, engagement limited by vision and hearing difficulties Orientation: alert, oriented to idea that she is in the hospital, year, month not date nor situation Psychomotor Function: no agitation or slowing; no abnormal gestures or movements Speech: normal rate/rhythm/volume, spontaneous Mood: good Affect: Blunted Thought Process: Linear, self dialogue Thought Content: On treatment Hallucinations: Denies but self dialogues Delusions: not expressed Insight: Impaired Judgment: Impaired Impulsivity: none noted Diagnostics Vital Signs (24Hr): Vital Signs - 24 hr 05/21/25 19:55 05/22/25 08:43 Temperature 98.6 F 97.4 F Pulse Rate 68 70 Respiratory Rate 16 78 H Blood Pressure 137/64 115/57 L Pulse Oximetry 94 95 Oxygen Delivery Method Room Air Room Air BMI result Body Mass Index 37.7 Labs 03/29/25 08:55 03/29/25 08:55 Imaging Radiology Impressions: ITS Impressions Head CT 03/05/25 15:51 IMPRESSION: 1. No acute intracranial abnormality. 2. Right-sided cochlear nerve implant with associated streak artifact. 3. Right-sided canal wall up mastoidectomy. Electronically signed by: Levi Greer MD 03/05/2025 04:25 PM EDT RP Lumbar Puncture Fluoroscopy 03/09/25 11:50 IMPRESSION: Successful fluoroscopy-guided lumbar puncture performed without immediate complications Electronically signed by: Thompson Andujar MD 03/09/2025 04:06 PM EDT RP Chest CT 03/11/25 11:52 IMPRESSION: 1. Multiple bilateral pulmonary nodules measuring up to 10 mm in size. Further evaluation should be based on Fleischner Society guidelines below. 2. Cardiomegaly. Findings consistent with pulmonary arterial hypertension. 3. No evidence of mediastinal or hilar lymphadenopathy. Fleischner Criteria for pulmonary nodule follow-up SOLID NODULES: Low risk patient: <6mm: no follow-up 6-8mm: 6 month follow-up CT >8mm: PET/Biopsy/ 3 month follow-up CT High risk patient: <6mm: 12 month follow-up CT 6-8mm: 6 month follow-up CT >8mm: PET/Biopsy/ 3 month follow-up CT SUB-SOLID/GROUNDGLASS NODULES: All patients: > or = 6mm: 6 month follow-up CT *Please note that in patients in the following categories, the Fleischner criteria do not apply: Immunocompromised, lung cancer screening population, age below 35, and patients with known malignancy Electronically signed by: Best Clemons MD 03/11/2025 01:45 PM EDT RP Head CTA 03/11/25 11:52 IMPRESSION: Head CT: No acute intracranial abnormality. CT angiogram of the head: No vascular occlusions. Electronically signed by: Gypsy Salamanca MD 03/11/2025 03:02 PM EDT RP Chest CT 04/24/25 09:58 IMPRESSION: 1. Majority of the previously seen pulmonary nodules have resolved, and were consistent with infectious or inflammatory etiology. 2. There is a persistent 9 mm nodular focus in the lateral right upper lobe, which is felt to represent scarring given the appearance. To be cautious, a 3 month interval follow-up CT is recommended to ensure stability. 3. There is mild to moderate paraseptal emphysema. There is no acute pneumonic consolidation. 4. There is thickening of the small airways suggesting bronchitis. 5. There is moderate cardiac enlargement. Enlarged main pulmonary artery is consistent with pulmonary arterial hypertension. Electronically signed by: Levi Greer MD 04/24/2025 10:56 AM EDT Medications Medications Current Medications Acetaminophen (Acetaminophen 325 Mg Tablet) 650 mg PO Q6H PRN PRN Reason: Headache/Pain, Scale 1-10 Last Admin: 05/21/25 21:17 Dose: 650 mg Al Hydroxide/Mg Hydroxide (Magnesium Hydrox/Alum Hydrox 30 Ml Oral.Susp) 30 ml PO Q6H PRN PRN Reason: Heartburn/Nausea Albuterol Sulfate (Albuterol Sulfate 90 Mcg 8 Gm Inhaler) 2 puff INHALE Q4H PRN PRN Reason: Shortness Of Breath Or Wheezing Last Admin: 05/22/25 08:55 Dose: 2 puff Atorvastatin Calcium (Atorvastatin Calcium 40 Mg Tablet) 40 mg PO DAILY [facility] Last Admin: 05/22/25 08:52 Dose: 40 mg Clonazepam (Clonazepam Odt 0.5 Mg Tab.Rapdis) 0.5 mg PO BID PRN PRN Reason: severe anxiety/sleep Last Admin: 05/10/25 05:31 Dose: 0.5 mg Clozapine (Clozapine 100 Mg Tablet) 200 mg PO BEDTIME [facility] Last Admin: 05/21/25 20:31 Dose: 200 mg Fluphenazine HCl (Fluphenazine Hcl 2.5 Mg/Ml 10 Ml Vial) 2.5 mg IM BID PRN PRN Reason: give if refuses oral per HCP Last Admin: 03/05/25 09:42 Dose: 2.5 mg Fluphenazine HCl (Fluphenazine Hcl 2.5 Mg Tablet) 2.5 mg PO BID [facility] Last Admin: 05/22/25 08:52 Dose: 2.5 mg Fluticasone/Vilanterol (Fluticasone/Vilanterol 200/25 Blst.W.Dev) 1 puff INHALE DAILY [facility] Last Admin: 05/22/25 08:51 Dose: 1 puff Glycopyrrolate (Glycopyrrolate 1 Mg Tablet) 0.5 mg PO BID [facility] Last Admin: 05/22/25 08:51 Dose: 0.5 mg Hydrochlorothiazide (Hydrochlorothiazide 25 Mg Tablet) 25 mg PO DAILY [facility] Last Admin: 05/22/25 08:52 Dose: 25 mg Levetiracetam (Levetiracetam Oral Soln 500 Mg/5 Ml) 250 mg PO BID [facility] Last Admin: 05/22/25 08:51 Dose: 250 mg Magnesium Hydroxide (Milk Of Magnesia 30 Ml Oral.Susp) 30 ml PO DAILY PRN PRN Reason: Constipation Methimazole (Methimazole 5 Mg Tablet) 5 mg PO DAILY [facility] Last Admin: 05/22/25 08:52 Dose: 5 mg Naloxone HCl (Naloxone Hcl 0.4 Mg/Ml Vial) 0.04 mg IVPUSH Q5M PRN PRN Reason: Excessive sedation or RR < 8 Nifedipine (Nifedipine Er 30 Mg Tab.Er.24) 30 mg PO DAILY [facility]; Protocol Last Admin: 05/22/25 08:52 Dose: 30 mg Olanzapine (Olanzapine 10 Mg Tablet) 10 mg PO Q6H PRN PRN Reason: severe agitation Last Admin: 04/16/25 16:28 Dose: 10 mg Prednisone (Prednisone 20 Mg Tablet) 40 mg PO DAILY [facility] Last Admin: 05/22/25 08:52 Dose: 40 mg Tiotropium [place] (Tiotropium [place] 2.5 Mcg 1 Puff/2.5 Mcg Mist.Inhal) 1 puff INHALE DAILY [facility] Last Admin: 05/22/25 08:51 Dose: 1 puff Trazodone HCl (Trazodone Hcl 50 Mg Tablet) 50 mg PO BEDTIME MRX1 PRN PRN Reason: Insomnia Last Admin: 04/04/25 23:21 Dose: 50 mg Allergies Allergies Allergy/AdvReac Type Severity Reaction Status Date / Time latex Allergy Unknown Verified 03/09/25 11:50 peanut Allergy Unknown Verified 03/09/25 11:50 Penicillins Allergy Unknown Verified 03/09/25 11:50 Assessment & Plan Assessment & Plan (1) Psychosis: Status: Acute Code(s): F29 - Unspecified psychosis not due to a substance or known physiological condition Assessment and Plan: r/o autoimmune reasons for psychosis including lupus. 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 Sharif is a 69 year-old woman who presents with a 3 month hx of new onset of psychosis (AH) and combination of paranoid delusions and cap gras delusions. No prior psychiatric hx. She does have of cocaine use but apparently had not used in some years. Daughter suspects she may have relapsed but no ongoing use. Pt presents with more complex theme of delusions. No additional medical work up available including head CT. CBC and cmp unremarkable. 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 It may be related to dementia process but complexity of delusions and psychosis not the common presentation for dementia that have psychosis early on such as in vascular dementia or LBD. Pt presents as gravely disable to able to care for self due to symptoms of psychosis and delusions. 02/03 increase night time risperidone 2mg po qhs increase cogetin at bedtime to 1mg po qhs. lower daily dose to 0.5mg po daily. continue cogentin 0.5mg po daily. clonazepam as prn olanzapine as prn for agitation 02/04 continue tx. 02/05 continue tx. 02/06 continue current dose of risperidone. NOTE THAT pt can't take doses higher than 3 mg/day of risperidone as higher doses had severe EPS. can use olanzapine as well per court order. 02/07/25: Patient has been agitated yelling loudly exist seeking, delusional thinking her daughter/son outside at the door to pick her up. PRNs given in the morning with mild effect. Patient became agitated, aggressive\, assaultive to 1 of the staff on the floor, yelling and hitting her face so grabbing her neck. Physical was started at 16:31 to 1634. Patient was given IM medication of Zyprexa 10 and Valium 10 with good effect. Tomorrow plan: Patient will be benefit from Valium 10 mg twice a day and Zyprexa 5 mg 3 times a day is added into her scheduled medication as current plan with risperidone is not effective. Patient also having a backup for risperidone if she refused. 02/08/25: Slept most of the morning and last night. In better behavior control. No aggressive behavior. She is quiet, self dialogue, and medication compliant. Due to receive restrain medication yesterday. I did not make any medication change. But the Valium and additional Zyprexa appears to be helpful. 02/09 will try to change keppra to depakote for seizures as keppra may exacerbate psychosis. increase risperidone 1mg po daily and 2mg po qhs. may need to add second antipsychotic. 02/10 continues to present as paranoid with AH. at times declines oral medications, requiring IM back per court order. 02/11 continue tx. 02/12 continue tx. 02/13 continue tx. 02/14: no changes today. Monitor for agitation around confusion about hospitalization 02/15: no changes today, self dialogue more overt/extensive today 02/16 add olanzapine 5mg po qhs. continue risperidone. minimal improvement if any. 02/17 continue tx. 02/18 seems more somnolent with bedtime olanzapine, will continue to monitor. 02/19 cbc showed thrombocytopenia, which is new and suspect related to depakote 02/20 pt appears more sedated since addition of olanzapine at bedtime. She continues to self dialogue. minimal improvement. 02/21: Continue current management and treatment plan. 02/22: continue current management and treatment plan. 02/23 continue tx. may need to affirm HCP try different antipsychotic. 02/24 continue tx. results of LENORE 1:360, pattern homogenous A. 02/25 will try rexulti, lower risperidone. pending coordination of medical care to see if underlying autoimmune condition has anything to do with current presentation. 02/26 discussed with hospital immigration attorney to dismiss sect 8, HCP invoked and can consent to other treatment. daughter Maricruz give permission to try different antipsychotic. 02/27 decrease risperidone to 1mg po daily, start prolixin 2.5mg po qhs, then increase to BID. continue olanzapine prn for agitation. olanzapine as well per court order. 03/03 pt seen by neurology, added HIV/RPR/LYME, can't have MRI due to cochlear implant. 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 Last Neurology appointment 01/2024. Missed appointment with rheumatology 05/2024, last seen in 02/26/2024. - Pt can't have MRI due to cochlear implant. Had head CT. - continue prolixin 2.5mg po daily, 5mg po qhs. will d/c risperidone, increase prolixin 5mg po BID, back up IM. 03/05 continue tx. 03/06 This marine underwriter spoke with pt's senior fire protection engineer, Dr. Al obtained collateral information. Will coordinate with neurology and rheumatology once LP results are available. r/o reoccurance of pachymeningitis, lupus or other autoimmune cause for psychosis. 03/07: Continue current regimen and plans. Discontinued one-to-one and put in place 5 minute checks 03/08: Continue current plans and regimen 03/09 continue tx. 03/10: continue current mgmt. continues disorganized and psychotic. see neuro note from today. continue with neuro w/u. 03/11: given zyprexa 5 and valium [address] and head CTA. head CTA WNL, chest CT showed numerous pulmonary nodules up to 10 mm in size. no change in presentation. due to persistent requests for discharge, 3-day notice submitted on her behalf. will work toward HCP affirmation by the court. 03/12: per pulm consult, chest CT more c/w rheumatological process than CA, recommended empiric steroid course. awaiting input from neuro. consider Bx of nodules otherwise. continue current mgmt for now. 03/13: variably calm and agitated. planning for bronchoscopy with pulmonary nodule Bx on sunday. continue current mgmt. case discussed with HCP Maricruz (daughter), who is in agreement with plan. 03/14: CSF with notable findings. will f/u with neuro on sunday. stable presentation for now, remains quite psychotic. continue current mgmt. bronchoscopy sunday. 03/15: no change from yesterday in presentation or plan. 03/16: stable presentation. continues confused, wanting to go home. HCP affirmation tomorrow. continue current mgmt. 03/17: stable presdentation. bronchoscopy pending. continue current mgmt. 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 awaiting bronchoscopy. remains psychotic. continue current mgmt for now. 03/20: no change in presentation. still awaiting go-ahead for brochoscopy. continue current mgmt. 03/22: No changes. Noted above. 03/23: awaiting insurance approval for bronchoscopy. stable presentation. 03/24: as for yesterday. 03/25: loudly RIS in milieu today. bronchoscopy scheduled for sunday at 1130. NPO past MN night. stable presentation. continue current mgmt. 03/26 pt presents as more disorganized and inattentive than usual showing more signs of delirious behavior. bronchoscopy was canceled,due to shortage of needles to complete biopsy. will order cbc, cmp, ammonia levels given increase disorganized behavior and worsening attention pointing at a more delirious presentation. Review of results from LP showing negative results for meningitis panel/paraneoplastic panel (including most common antibody found in SLC which is EARL 1 which was negative), elevated protein in CSF 131 without leukocytosis, also elevated CSF/serum IgG index. elevated anti-ds dna titer 1:80. Such results may point more to a rheumatological condition than infectious condition or malignancy. Mrs. Sharif's OP senior fire protection engineer, Dr. Al recommends trial of prednisone 40mg po daily at least for 2 weeks. 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 03/31 increase prolixin to 5mg po BID. continue all other medications including prednisone 40mg po daily. 04/01 discussed with her OP senior fire protection engineer, Dr. Al possibility of transferring to [facility] for further tx of autoimmune condition, suspected also having lupus. continue prednisone. Spoke with daughter who is HCP, daughter concern about pt going to [facility] due to being dismissed several times when pt was first brought psychotic. 04/02 continue tx 04/03 increase prolixin to 5mg po TID. monitor EPS. 04/06 continue tx. 04/07- pending response from [facility] to see if they will take her for further evaluation of autoimmune condition with multidisciplinary team to continue see if psychosis related to autoimmune or primarily psychosis. Some improvement in attention, less guarded. continues to have auditory hallucinations. May consider switch to clozapine given that she has tried 3 antipsychotics with limited efficacy. 04/08 start clozapine 25mg po qhs. continue prolixin 7.5mg po TID. 04/09 increase clozapine to 50mg po qhs. continue prolixin 7.5mg po TID. 04/10 decrease prolixin to 7.5mg po BID. increase clozapine to 75mg po qhs. continue increasing clozapine by 25mg/day. resident assistant, recommends repeat CT in 2 weeks, and hold on bronchoscopy. 04/11: no change today, will titrate Clozapine further tomorrow 04/12: titrate Clozapine to 100 mg QHS 04/13 increase clozapine to 125mg po qhs. continue prolixin 7.5mg po BID. 04/14 Provided update to daughter Maricruz who is HCP in terms of pt being treated for both autoimmune condition that may be contributing to psychosis (with prednione) as well as primarily psychiatric disorder (although less likely) with clozapine. some improvement in attention, slightly less paranoid but continues to present with ongoing AH of her daughter. 04/15 continue tx. 04/16 continue tx. 04/17 start glycopyrralate for drooling, decrease cogentin. 04/17 increase clozapine 150mg po qhs, lower prolixin 2.5mg po BID. back up. 04/18: Continue current management and treatment plan. 04/19: continue current management and treatment plan. 04/20 increase clozapine to 175mg po qhs. 04/21 continue tx. 04/22 continue tx. 04/23 continue tx. will check clozapine levels. 04/[address] followed up done today- much less nodules seen. 04/27 no change in presentation, less paranoid towards staff but ongoing AH. Impaired awareness of surroundings and conversations mostly base on delusional content. Will consult as well with her OP Systems Accountant as to whether continue prednisone as initially recommended by rheumatology for suspected lupus, although it has had additional benefits in lung nodules. 04/28 increase clozapine 200mg po qhs. 04/[address] showed improvement in her pulmonary nodules and absence of pulmonary symptoms otherwise. recommendation to taper off prednisone slowly with repeat of chest CT in 3 months for stability of reminder of nodules. her OP senior fire protection engineer did want to continue prednisone for suspected lupus, may discuss further with rheumatology if they want to continue prednisone or stop it. 04/30 continue tx. 05/01 continue tx. will check clozapine level on 05/04/2505/05 continue tx. pending clozapine levels. 05/06 continue tx. 05/07 continue tx. 05/08 continue tx. 05/09 through 05/11 no change in presentation; continue treatment plan 05/12/25: No change, slept through the night. Medication compliant. Ambulate using walker, walker next to table in dining area where patient sits. Visible in common area but not attended groups. Calm, pleasant and cooperative. No notable side effects from medication. Feeling safe here I want to be home but the weather does not allow me to go home . Last BM was yesterday. Communicate with staff via written form. 05/13/25: Visible, eating and sleeping well. Medication compliant, no side effects. Denies safety concerns, denies voices. however, she is responded to internal stimuli, self dialogues at times. No behavior issues. Pending Clozaril level. 05/14/25: Patient visible, calm, pleasant and cooperative. Medication compliant, some drooling while napping in bed. Passing gas, had BM yesterday. Report feeling tired but denies depression/anxiety. She self dialogue quietly, appear responding to internal stimuli. No behavior issues. No sleeping or appetite problems. Patient observed at some point this afternoon do some coloring art work at the table. Patient was assessed by PT team, report patient is at baseline, using walker. No further assessment needed. Potential will get the bed at [facility]. 05/15/25: Visible, slept well, no appetite issues, compliant with medications. However, patient has not shower often yesterday, per nursing patient believes there was a man in her room therefore she refused to shower yesterday. She states that she will shower later on today when staff is available to help. Reports pain on her back, legs, and joint. She good like to do some coloring after lunch. Per nursing patient has raised her voice asking for tramadol a couple of times a day for pain. Appears responding to internal stimuli, but no major issues. Clazapine 313. Norclozapine 81 Therapeutic. 05/16/25: Patient slept well, no issue with appetite, compliant with medications. Calm, pleasant and cooperative. No behavior issues. Ambulate using a walker. Patient told other peers who on the table in dining area that she talks to herself and out loud because bug in her ear. Patient appeared responding to internal stimuli at baseline. 05/17/25: No issue with sleep or appetite, compliant with medications, visible in common areas at times, mostly required but self dialogue and responding to internal stimuli at times in a quiet way. Patient asked for toilet tree to shower and brush her teeth. Given Tylenol for mild pain with good effect. 05/18/25: Patient is visible in common areas, appear to be tired and sleepy at lunch at the table in dining area. Report she feels ok today, slept well and has no issues with appetite. She asks if she can get a coffee with creamer and sugar after encounter. Report gerenral pain on the back and says I need Tylenol or tramadol . Self report last BM was yesterday. Report I have bug in my ear and feeling down , and I talk to my daughter, my fiance and other peoole when asked who she usually talks to. No behavior issues. Ambulating using walker. Wait for placement. Continue with current tx plan. 05/19/25: Per note: [facility] has accepted patient for admission. Submitted PASRR level I and she will need Level II screen . Updated daughter ( affirmed HCP) and once PASRR is completed patient will transfer. Daughter expressed happiness regarding outcome and the fact that patient will be closer to them in [place]. Estimated date of discharge is within 1-2 weeks LT care bed has not opened at this time, but liaision stated it she would follow. Patient slept well, no issues with sleep, appetite, or medication compliant. She thinks she is leaving tomorrow morning. She appears bright up whenever this provider approaches her. Report she feels good and thanks for checking on her. Last BM is this morning. Continue with current tx plan. Waiting for placement. 05/20/25: Patient slept through the night, visible, self dialogue in common areas, appear tired but brighten up when approach. Report mood is good. Denies anxiety or depression. She believes she should be leaving this morning but the [employer] was canceled d/t the weather . Report feeling safe. Ask for coffee and two crackers at the end of encounter when asked if she has any questions. Also discuss with patient regarding weight gain. She says that she has salad and will reduce sugar in her coffee. Will send rotary shear cutter consult to talk to patient regarding healthier choices to prevent too much weight gain. 05/21: Continue current treatment regimen. Plan to discharge next week. 05/22/25: Patient slept 8 hours, compliant with meds. Informed that Metformin will add on today to help with weight control. Patient states that she will take no meds. However, when nurse offered Metformin, patient took it without any issues. Patient request crackers which nursing asked patient to not having it as lunch will be here in 20-30 min. Patient was irritable regarding not given snack she asked for. Patient responded to internal stimuli, reported that she is taking to my siblings when she was out in dinning room talking to someone who are not there. Potential to be discharged next week with [facility]. Metformin 500mg daily in the AM for weight control. Patient educated on: diagnosis, medication risk/benefits and therapeutic strategies Informed Consent: further education needed Reason for continued inpatient stay Substantial Risk for: med/psych decompensation Time Spent With Patient Time: Total time managing care of this patient today ____ minutes.
--- NOTE | 2025-05-22 15:29 | MHC.CLN ---
CONSULT PATIENT HAS SIGNIFICANT WEIGHT GAIN SINCE ADMISSION. WEIGHT=96.6 KG, BMI=37.7. STAFF AWARE OF WEIGHT GAIN. VISITED WITH PATIENT ON UNIT. PATIENT SNACKS FREQUENTLY AND APPEARS TO ENJOY SNACKING. NOT ABLE TO PROVIDE EFFECTIVE NUTRITION ED DUE TO MENTATION. STAFF WILL CONTINUE TO MONITOR INTAKE AND DISCOURAGE FREQUENT SNACKING IF ACCEPTED BY PATIENT.
[2025-05-22 18:41] LABS: Neut%MD 81.6 %; WBCANC 8.2 X10*3/uL
[2025-05-22 18:54] LABS: Creatinine Clr Calc Pharmacy 49.0; Estimated Glomerular Filt Rate 44
[2025-05-22 20:00] VITALS: BP 111/59; PULSE 76; RESP 16; TEMP 36.2; O2SAT 98
[2025-05-23 08:00] VITALS: BP 132/72; PULSE 83; RESP 18; TEMP 36.2; O2SAT 97
[2025-05-23] MEDS: levETIRAcetam Oral Soln 500 MG/5 ML 250 MG PO ×2 (08:28→20:47)
[2025-05-23] MEDS: Fluticasone/Vilanterol 200/25 BLST.W.DEV 1 PUFF INHALE (08:29)
[2025-05-23] MEDS: NIFEdipine ER 30 MG TAB.ER.24 PO (08:29)
[2025-05-23] MEDS: Tiotropium Bromide 2.5 mcg 1 PUFF/2.5 MCG MIST.INHAL INHALE (08:29)
--- NOTE | 2025-05-23 13:38 | P.PNPSI_ITS ---
Subjective Subjective Date of Service: 05/23/25 Reason For Visit: Abnormal CT chest Interim History: Medical record and nursing notes reviewed Reports she is feeling fine today. Patient is calmer compared to prior coverage times. Less yelling although still self dialoguing. She thinks the hospital is switching my medications with my sister's Shayna . Denies SI/HI. Review of Systems Review of Systems Constitutional: Denies fatigue and Denies fever(s) Cardiovascular: Denies chest pain and Denies dyspnea Respiratory: Denies dyspnea Gastrointestinal: Denies abdominal pain Psychiatric: denies suicidal ideation Endocrine: Denies fatigue Yes all other systems are reviewed and are negative, Unobtainable due to mental condition, Unobtainable due to mental status and Other (patient refused to answer ROS questions) Constitutional: Reports as per HPI Eyes: Reports as per HPI Reports as per HPI Cardiovascular: Reports as per HPI Respiratory: Reports as per HPI Gastrointestinal: Reports as per HPI Musculoskeletal: Reports as per HPI Skin/Breast: Reports as per HPI Reports as per HPI and Reports confusion Psychiatric: Reports as per HPI and Reports confusion Endocrine: Reports as per HPI Hematologic/Lymphatic: Reports as per HPI Allergic/Immunologic: Reports as per HPI Mental Status Exam Mental Status Exam Narrative: Appearance: casual attire, unkempt hair, grooming otherwise adequate, poor hygiene Behavior: calm, keeping to self, minimal eye contact, engagement limited by vision and hearing difficulties Orientation: alert, oriented to idea that she is in the hospital, year, month not date nor situation Psychomotor Function: no agitation or slowing; no abnormal gestures or movements Speech: normal rate/rhythm/volume, spontaneous Mood: good Affect: Blunted Thought Process: Linear, self dialogue Thought Content: On treatment Hallucinations: Denies but self dialogues Delusions: not expressed Insight: Impaired Judgment: Impaired Impulsivity: none noted Patient Appearance: Appropriate and Unkempt Patient Orientation: Person and Situation Level of Consciousness: Awake and Restless Patient Behavior: Talkative and Poor Eye Contact Mood Description: Labile Affect Description: Labile Patient Cognition Impaired: No Ability to Follow Directions: Poor Speech Pattern: Rambling and Poor Articulation Memory Description: Remote Impaired Diagnostics Vital Signs (24Hr): Vital Signs - 24 hr 05/22/25 20:00 05/23/25 08:00 Temperature 97.2 F 97.1 F Pulse Rate 76 83 Respiratory Rate 16 18 Blood Pressure 111/59 L 132/72 Pulse Oximetry 98 97 Oxygen Delivery Method Room Air Room Air BMI result Body Mass Index 37.7 Labs 03/29/25 08:55 05/22/25 18:29 Labs: Laboratory Results - last 48 hr 05/22/25 18:29 Absolute Neuts (auto) 6.7 Creatinine 1.23 Estim Creat Clear Calc 49.0 Estimated GFR 44 Imaging Radiology Impressions: ITS Impressions Head CT 03/05/25 15:51 IMPRESSION: 1. No acute intracranial abnormality. 2. Right-sided cochlear nerve implant with associated streak artifact. 3. Right-sided canal wall up mastoidectomy. Electronically signed by: Levi Greer MD 03/05/2025 04:25 PM EDT RP Lumbar Puncture Fluoroscopy 03/09/25 11:50 IMPRESSION: Successful fluoroscopy-guided lumbar puncture performed without immediate complications Electronically signed by: Thompson Andujar MD 03/09/2025 04:06 PM EDT RP Chest CT 03/11/25 11:52 IMPRESSION: 1. Multiple bilateral pulmonary nodules measuring up to 10 mm in size. Further evaluation should be based on Fleischner Society guidelines below. 2. Cardiomegaly. Findings consistent with pulmonary arterial hypertension. 3. No evidence of mediastinal or hilar lymphadenopathy. Fleischner Criteria for pulmonary nodule follow-up SOLID NODULES: Low risk patient: <6mm: no follow-up 6-8mm: 6 month follow-up CT >8mm: PET/Biopsy/ 3 month follow-up CT High risk patient: <6mm: 12 month follow-up CT 6-8mm: 6 month follow-up CT >8mm: PET/Biopsy/ 3 month follow-up CT SUB-SOLID/GROUNDGLASS NODULES: All patients: > or = 6mm: 6 month follow-up CT *Please note that in patients in the following categories, the Fleischner criteria do not apply: Immunocompromised, lung cancer screening population, age below 35, and patients with known malignancy Electronically signed by: Best Clemons MD 03/11/2025 01:45 PM EDT RP Head CTA 03/11/25 11:52 IMPRESSION: Head CT: No acute intracranial abnormality. CT angiogram of the head: No vascular occlusions. Electronically signed by: Gypsy Salamanca MD 03/11/2025 03:02 PM EDT RP Chest CT 04/24/25 09:58 IMPRESSION: 1. Majority of the previously seen pulmonary nodules have resolved, and were consistent with infectious or inflammatory etiology. 2. There is a persistent 9 mm nodular focus in the lateral right upper lobe, which is felt to represent scarring given the appearance. To be cautious, a 3 month interval follow-up CT is recommended to ensure stability. 3. There is mild to moderate paraseptal emphysema. There is no acute pneumonic consolidation. 4. There is thickening of the small airways suggesting bronchitis. 5. There is moderate cardiac enlargement. Enlarged main pulmonary artery is consistent with pulmonary arterial hypertension. Electronically signed by: Levi Greer MD 04/24/2025 10:56 AM EDT RP Medications Medications Current Medications Acetaminophen (Acetaminophen 325 Mg Tablet) 650 mg PO Q6H PRN PRN Reason: Headache/Pain, Scale 1-10 Last Admin: 05/23/25 09:16 Dose: 650 mg Al Hydroxide/Mg Hydroxide (Magnesium Hydrox/Alum Hydrox 30 Ml Oral.Susp) 30 ml PO Q6H PRN PRN Reason: Heartburn/Nausea Albuterol Sulfate (Albuterol Sulfate 90 Mcg 8 Gm Inhaler) 2 puff INHALE Q4H PRN PRN Reason: Shortness Of Breath Or Wheezing Last Admin: 05/22/25 08:55 Dose: 2 puff Atorvastatin Calcium (Atorvastatin Calcium 40 Mg Tablet) 40 mg PO DAILY [facility] Last Admin: 05/23/25 08:29 Dose: 40 mg Clonazepam (Clonazepam Odt 0.5 Mg Tab.Rapdis) 0.5 mg PO BID PRN PRN Reason: severe anxiety/sleep Last Admin: 05/10/25 05:31 Dose: 0.5 mg Clozapine (Clozapine 100 Mg Tablet) 200 mg PO BEDTIME ALLY Last Admin: 05/22/25 20:40 Dose: 200 mg Fluphenazine HCl (Fluphenazine Hcl 2.5 Mg/Ml 10 Ml Vial) 2.5 mg IM BID PRN PRN Reason: give if refuses oral per HCP Last Admin: 03/05/25 09:42 Dose: 2.5 mg Fluphenazine HCl (Fluphenazine Hcl 2.5 Mg Tablet) 2.5 mg PO BID ALLY Last Admin: 05/23/25 08:29 Dose: 2.5 mg Fluticasone/Vilanterol (Fluticasone/Vilanterol 200/25 Blst.W.Dev) 1 puff INHALE DAILY [facility] Last Admin: 05/23/25 08:29 Dose: 1 puff Glycopyrrolate (Glycopyrrolate 1 Mg Tablet) 0.5 mg PO BID [facility] Last Admin: 05/23/25 08:28 Dose: 0.5 mg Hydrochlorothiazide (Hydrochlorothiazide 25 Mg Tablet) 25 mg PO DAILY [facility] Last Admin: 05/23/25 08:30 Dose: 25 mg Levetiracetam (Levetiracetam Oral Soln 500 Mg/5 Ml) 250 mg PO BID [facility] Last Admin: 05/23/25 08:28 Dose: 250 mg Magnesium Hydroxide (Milk Of Magnesia 30 Ml Oral.Susp) 30 ml PO DAILY PRN PRN Reason: Constipation Metformin HCl (Metformin Hcl 500 Mg Tablet) 500 mg PO DAILY [facility] Last Admin: 05/23/25 08:29 Dose: 500 mg Methimazole (Methimazole 5 Mg Tablet) 5 mg PO DAILY [facility] Last Admin: 05/23/25 08:29 Dose: 5 mg Naloxone HCl (Naloxone Hcl 0.4 Mg/Ml Vial) 0.04 mg IVPUSH Q5M PRN PRN Reason: Excessive sedation or RR < 8 Nifedipine (Nifedipine Er 30 Mg Tab.Er.24) 30 mg PO DAILY [facility]; Protocol Last Admin: 05/23/25 08:29 Dose: 30 mg Olanzapine (Olanzapine 10 Mg Tablet) 10 mg PO Q6H PRN PRN Reason: severe agitation Last Admin: 04/16/25 16:28 Dose: 10 mg Prednisone (Prednisone 20 Mg Tablet) 40 mg PO DAILY [facility] Last Admin: 05/23/25 08:30 Dose: 40 mg Tiotropium [place] (Tiotropium [place] 2.5 Mcg 1 Puff/2.5 Mcg Mist.Inhal) 1 puff INHALE DAILY [facility] Last Admin: 05/23/25 08:29 Dose: 1 puff Trazodone HCl (Trazodone Hcl 50 Mg Tablet) 50 mg PO BEDTIME MRX1 PRN PRN Reason: Insomnia Last Admin: 04/04/25 23:21 Dose: 50 mg Allergies Allergies Allergy/AdvReac Type Severity Reaction Status Date / Time latex Allergy Unknown Verified 03/09/25 11:50 peanut Allergy Unknown Verified 03/09/25 11:50 Penicillins Allergy Unknown Verified 03/09/25 11:50 Assessment & Plan Assessment & Plan (1) Psychosis: Status: Acute Code(s): F29 - Unspecified psychosis not due to a substance or known physiological condition Assessment and Plan: r/o autoimmune reasons for psychosis including lupus. 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 Sharif is a 69 year-old woman who presents with a 3 month hx of new onset of psychosis (AH) and combination of paranoid delusions and cap gras delusions. No prior psychiatric hx. She does have of cocaine use but apparently had not used in some years. Daughter suspects she may have relapsed but no ongoing use. Pt presents with more complex theme of delusions. No additional medical work up available including head CT. CBC and cmp unremarkable. 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 It may be related to dementia process but complexity of delusions and psychosis not the common presentation for dementia that have psychosis early on such as in vascular dementia or LBD. Pt presents as gravely disable to able to care for self due to symptoms of psychosis and delusions. 02/03 increase night time risperidone 2mg po qhs increase cogetin at bedtime to 1mg po qhs. lower daily dose to 0.5mg po daily. continue cogentin 0.5mg po daily. clonazepam as prn olanzapine as prn for agitation 02/04 continue tx. 02/05 continue tx. 02/06 continue current dose of risperidone. NOTE THAT pt can't take doses higher than 3 mg/day of risperidone as higher doses had severe EPS. can use olanzapine as well per court order. 02/07/25: Patient has been agitated yelling loudly exist seeking, delusional thinking her daughter/son outside at the door to pick her up. PRNs given in the morning with mild effect. Patient became agitated, aggressive\, assaultive to 1 of the staff on the floor, yelling and hitting her face so grabbing her neck. Physical was started at 16:31 to 1634. Patient was given IM medication of Zyprexa 10 and Valium 10 with good effect. Tomorrow plan: Patient will be benefit from Valium 10 mg twice a day and Zyprexa 5 mg 3 times a day is added into her scheduled medication as current plan with risperidone is not effective. Patient also having a backup for risperidone if she refused. 02/08/25: Slept most of the morning and last night. In better behavior control. No aggressive behavior. She is quiet, self dialogue, and medication compliant. Due to receive restrain medication yesterday. I did not make any medication change. But the Valium and additional Zyprexa appears to be helpful. 02/09 will try to change keppra to depakote for seizures as keppra may exacerbate psychosis. increase risperidone 1mg po daily and 2mg po qhs. may need to add second antipsychotic. 02/10 continues to present as paranoid with AH. at times declines oral medications, requiring IM back per court order. 02/11 continue tx. 02/12 continue tx. 02/13 continue tx. 02/14: no changes today. Monitor for agitation around confusion about hospitalization 02/15: no changes today, self dialogue more overt/extensive today 02/16 add olanzapine 5mg po qhs. continue risperidone. minimal improvement if any. 02/17 continue tx. 02/18 seems more somnolent with bedtime olanzapine, will continue to monitor. 02/19 cbc showed thrombocytopenia, which is new and suspect related to depakote 02/20 pt appears more sedated since addition of olanzapine at bedtime. She continues to self dialogue. minimal improvement. 02/21: Continue current management and treatment plan. 02/22: continue current management and treatment plan. 02/23 continue tx. may need to affirm HCP try different antipsychotic. 02/24 continue tx. results of LENORE 1:360, pattern homogenous A. 02/25 will try rexulti, lower risperidone. pending coordination of medical care to see if underlying autoimmune condition has anything to do with current presentation. 02/26 discussed with hospital commonwealth attorney to dismiss sect 8, HCP invoked and can consent to other treatment. daughter Maricruz give permission to try different antipsychotic. 02/27 decrease risperidone to 1mg po daily, start prolixin 2.5mg po qhs, then increase to BID. continue olanzapine prn for agitation. olanzapine as well per court order. 03/03 pt seen by neurology, added HIV/RPR/LYME, can't have MRI due to cochlear implant. 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 Last Neurology appointment 01/2024. Missed appointment with rheumatology 05/2024, last seen in 02/26/2024. - Pt can't have MRI due to cochlear implant. Had head CT. - continue prolixin 2.5mg po daily, 5mg po qhs. will d/c risperidone, increase prolixin 5mg po BID, back up IM. 03/05 continue tx. 03/06 This leader writer spoke with pt's assemblies and installations inspector, Dr. Al obtained collateral information. Will coordinate with neurology and rheumatology once LP results are available. r/o reoccurance of pachymeningitis, lupus or other autoimmune cause for psychosis. 03/07: Continue current regimen and plans. Discontinued one-to-one and put in place 5 minute checks 03/08: Continue current plans and regimen 03/09 continue tx. 03/10: continue current mgmt. continues disorganized and psychotic. see neuro note from today. continue with neuro w/u. 03/11: given zyprexa 5 and valium [address] and head CTA. head CTA WNL, chest CT showed numerous pulmonary nodules up to 10 mm in size. no change in presentation. due to persistent requests for discharge, 3-day notice submitted on her behalf. will work toward HCP affirmation by the court. 03/12: per pulm consult, chest CT more c/w rheumatological process than CA, recommended empiric steroid course. awaiting input from neuro. consider Bx of nodules otherwise. continue current mgmt for now. 03/13: variably calm and agitated. planning for bronchoscopy with pulmonary nodule Bx on sunday. continue current mgmt. case discussed with HCP Maricruz (daughter), who is in agreement with plan. 03/14: CSF with notable findings. will f/u with neuro on sunday. stable presentation for now, remains quite psychotic. continue current mgmt. bronchoscopy sunday. 03/15: no change from yesterday in presentation or plan. 03/16: stable presentation. continues confused, wanting to go home. HCP affirmation tomorrow. continue current mgmt. 03/17: stable presdentation. bronchoscopy pending. continue current mgmt. 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 awaiting bronchoscopy. remains psychotic. continue current mgmt for now. 03/20: no change in presentation. still awaiting go-ahead for brochoscopy. continue current mgmt. 03/22: No changes. Noted above. 03/23: awaiting insurance approval for bronchoscopy. stable presentation. 03/24: as for yesterday. 03/25: loudly RIS in milieu today. bronchoscopy scheduled for sunday at 1130. NPO past MN night. stable presentation. continue current mgmt. 03/26 pt presents as more disorganized and inattentive than usual showing more signs of delirious behavior. bronchoscopy was canceled,due to shortage of needles to complete biopsy. will order cbc, cmp, ammonia levels given increase disorganized behavior and worsening attention pointing at a more delirious presentation. * Review of results from LP showing negative results for meningitis panel/paraneoplastic panel (including most common antibody found in SLC which is EARL 1 which was negative), elevated protein in CSF 131 without leukocytosis, also elevated CSF/serum IgG index. elevated anti-ds dna titer 1:80. Such results may point more to a rheumatological condition than infectious condition or malignancy. Mrs. Sharif's OP assemblies and installations inspector, Dr. Al recommends trial of prednisone 40mg po daily at least for 2 weeks. 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 03/31 increase prolixin to 5mg po BID. continue all other medications including prednisone 40mg po daily. 04/01 discussed with her OP assemblies and installations inspector, Dr. Al possibility of transferring to [facility] for further tx of autoimmune condition, suspected also having lupus. continue prednisone. Spoke with daughter who is HCP, daughter concern about pt going to [facility] due to being dismissed several times when pt was first brought psychotic. 04/02 continue tx 04/03 increase prolixin to 5mg po TID. monitor EPS. 04/06 continue tx. 04/07- pending response from [facility] to see if they will take her for further evaluation of autoimmune condition with multidisciplinary team to continue see if psychosis related to autoimmune or primarily psychosis. Some improvement in attention, less guarded. continues to have auditory hallucinations. May consider switch to clozapine given that she has tried 3 antipsychotics with limited efficacy. 04/08 start clozapine 25mg po qhs. continue prolixin 7.5mg po TID. 04/09 increase clozapine to 50mg po qhs. continue prolixin 7.5mg po TID. 04/10 decrease prolixin to 7.5mg po BID. increase clozapine to 75mg po qhs. continue increasing clozapine by 25mg/day. sample wrapper, recommends repeat CT in 2 weeks, and hold on bronchoscopy. 04/11: no change today, will titrate Clozapine further tomorrow 04/12: titrate Clozapine to 100 mg QHS 04/13 increase clozapine to 125mg po qhs. continue prolixin 7.5mg po BID. 04/14 Provided update to daughter Maricruz who is HCP in terms of pt being treated for both autoimmune condition that may be contributing to psychosis (with prednione) as well as primarily psychiatric disorder (although less likely) with clozapine. some improvement in attention, slightly less paranoid but continues to present with ongoing AH of her daughter. 04/15 continue tx. 04/16 continue tx. 04/17 start glycopyrralate for drooling, decrease cogentin. 04/17 increase clozapine 150mg po qhs, lower prolixin 2.5mg po BID. back up. 04/18: Continue current management and treatment plan. 04/19: continue current management and treatment plan. 04/20 increase clozapine to 175mg po qhs. 04/21 continue tx. 04/22 continue tx. 04/23 continue tx. will check clozapine levels. 04/[address] followed up done today- much less nodules seen. 04/27 no change in presentation, less paranoid towards staff but ongoing AH. Impaired awareness of surroundings and conversations mostly base on delusional content. Will consult as well with her OP Compliance Counsel as to whether continue prednisone as initially recommended by rheumatology for suspected lupus, although it has had additional benefits in lung nodules. 04/28 increase clozapine 200mg po qhs. 04/[address] showed improvement in her pulmonary nodules and absence of pulmonary symptoms otherwise. recommendation to taper off prednisone slowly with repeat of chest CT in 3 months for stability of reminder of nodules. her OP assemblies and installations inspector did want to continue prednisone for suspected lupus, may discuss further with rheumatology if they want to continue prednisone or stop it. 04/30 continue tx. 05/01 continue tx. will check clozapine level on 05/04/2505/05 continue tx. pending clozapine levels. 05/06 continue tx. 05/07 continue tx. 05/08 continue tx. 05/09 through 05/11 no change in presentation; continue treatment plan 05/12/25: No change, slept through the night. Medication compliant. Ambulate using walker, walker next to table in dining area where patient sits. Visible in common area but not attended groups. Calm, pleasant and cooperative. No notable side effects from medication. Feeling safe here I want to be home but the weather does not allow me to go home . Last BM was yesterday. Communicate with staff via written form. 05/13/25: Visible, eating and sleeping well. Medication compliant, no side effects. Denies safety concerns, denies voices. however, she is responded to internal stimuli, self dialogues at times. No behavior issues. Pending Clozaril level. 05/14/25: Patient visible, calm, pleasant and cooperative. Medication compliant, some drooling while napping in bed. Passing gas, had BM yesterday. Report feeling tired but denies depression/anxiety. She self dialogue quietly, appear responding to internal stimuli. No behavior issues. No sleeping or appetite problems. Patient observed at some point this afternoon do some coloring art work at the table. Patient was assessed by PT team, report patient is at baseline, using walker. No further assessment needed. Potential will get the bed at [facility]. 05/15/25: Visible, slept well, no appetite issues, compliant with medications. However, patient has not shower often yesterday, per nursing patient believes there was a man in her room therefore she refused to shower yesterday. She states that she will shower later on today when staff is available to help. Reports pain on her back, legs, and joint. She good like to do some coloring after lunch. Per nursing patient has raised her voice asking for tramadol a couple of times a day for pain. Appears responding to internal stimuli, but no major issues. Clazapine 313. Norclozapine 81 Therapeutic. 05/16/25: Patient slept well, no issue with appetite, compliant with medications. Calm, pleasant and cooperative. No behavior issues. Ambulate using a walker. Patient told other peers who on the table in dining area that she talks to herself and out loud because bug in her ear. Patient appeared responding to internal stimuli at baseline. 05/17/25: No issue with sleep or appetite, compliant with medications, visible in common areas at times, mostly required but self dialogue and responding to internal stimuli at times in a quiet way. Patient asked for toilet tree to shower and brush her teeth. Given Tylenol for mild pain with good effect. 05/18/25: Patient is visible in common areas, appear to be tired and sleepy at lunch at the table in dining area. Report she feels ok today, slept well and has no issues with appetite. She asks if she can get a coffee with creamer and sugar after encounter. Report gerenral pain on the back and says I need Tylenol or tramadol . Self report last BM was yesterday. Report I have bug in my ear and feeling down , and I talk to my daughter, my fiance and other peoole when asked who she usually talks to. No behavior issues. Ambulating using walker. Wait for placement. Continue with current tx plan. 05/19/25: Per note: [facility] has accepted patient for admission. Submitted PASRR level I and she will need Level II screen . Updated daughter ( affirmed HCP) and once PASRR is completed patient will transfer. Daughter expressed happiness regarding outcome and the fact that patient will be closer to them in [place]. Estimated date of discharge is within 1-2 weeks LT care bed has not opened at this time, but liaision stated it she would follow. Patient slept well, no issues with sleep, appetite, or medication compliant. She thinks she is leaving tomorrow morning. She appears bright up whenever this provider approaches her. Report she feels good and thanks for checking on her. Last BM is this morning. Continue with current tx plan. Waiting for placement. 05/20/25: Patient slept through the night, visible, self dialogue in common areas, appear tired but brighten up when approach. Report mood is good. Denies anxiety or depression. She believes she should be leaving this morning but the [employer] was canceled d/t the weather . Report feeling safe. Ask for coffee and two crackers at the end of encounter when asked if she has any questions. Also discuss with patient regarding weight gain. She says that she has salad and will reduce sugar in her coffee. Will send bread jockey consult to talk to patient regarding healthier choices to prevent too much weight gain. 05/21: Continue current treatment regimen. Plan to discharge next week. 05/22/25: Patient slept 8 hours, compliant with meds. Informed that Metformin will add on today to help with weight control. Patient states that she will take no meds. However, when nurse offered Metformin, patient took it without any issues. Patient request crackers which nursing asked patient to not having it as lunch will be here in 20-30 min. Patient was irritable regarding not given snack she asked for. Patient responded to internal stimuli, reported that she is taking to my siblings when she was out in dinning room talking to someone who are not there. Potential to be discharged next week with [facility], Grayson Roland. Metformin 500mg daily in the AM for weight control. 05/23: continue current management and treatment plan. Reason for continued inpatient stay Substantial Risk for: inability to function, rapid decompensation and med/psych decompensation Time Spent With Patient Time: Total time managing care of this patient today ____ minutes.
[2025-05-23 20:00] VITALS: BP 119/56; PULSE 73; RESP 17; TEMP 36.6; O2SAT 96
[2025-05-24 08:00] VITALS: BP 128/78; PULSE 87; RESP 17; TEMP 36.3; O2SAT 96
[2025-05-24] MEDS: Fluticasone/Vilanterol 200/25 BLST.W.DEV 1 PUFF INHALE (08:48)
[2025-05-24] MEDS: levETIRAcetam Oral Soln 500 MG/5 ML 250 MG PO ×2 (08:50→20:53)
[2025-05-24] MEDS: NIFEdipine ER 30 MG TAB.ER.24 PO (08:51)
[2025-05-24] MEDS: Tiotropium Bromide 2.5 mcg 1 PUFF/2.5 MCG MIST.INHAL INHALE (08:53)
--- NOTE | 2025-05-24 09:36 | P.PNPSI_ITS ---
Subjective Subjective Date of Service: 05/24/25 Reason For Visit: Abnormal CT chest Interim History: Medical record and nursing notes reviewed Self dialoguing continues. Reports she is feeling fine . Less irritable. Calmer and more cooperative. Self dialogues. Paranoia continues about people switching her medications. Denies SI/HI. Review of Systems Review of Systems Constitutional: Denies fatigue and Denies fever(s) Cardiovascular: Denies chest pain and Denies dyspnea Respiratory: Denies dyspnea Gastrointestinal: Denies abdominal pain Psychiatric: denies suicidal ideation Endocrine: Denies fatigue Yes all other systems are reviewed and are negative, Unobtainable due to mental condition, Unobtainable due to mental status and Other (patient refused to answer ROS questions) Constitutional: Reports as per HPI Eyes: Reports as per HPI Reports as per HPI Cardiovascular: Reports as per HPI Respiratory: Reports as per HPI Gastrointestinal: Reports as per HPI Musculoskeletal: Reports as per HPI Skin/Breast: Reports as per HPI Reports as per HPI and Reports confusion Psychiatric: Reports as per HPI and Reports confusion Endocrine: Reports as per HPI Hematologic/Lymphatic: Reports as per HPI Allergic/Immunologic: Reports as per HPI Mental Status Exam Mental Status Exam Narrative: Appearance: casual attire, unkempt hair, grooming otherwise adequate, poor hygiene Behavior: calm, keeping to self, minimal eye contact, engagement limited by vision and hearing difficulties Orientation: alert, oriented to idea that she is in the hospital, year, month not date nor situation Psychomotor Function: no agitation or slowing; no abnormal gestures or movements Speech: normal rate/rhythm/volume, spontaneous Mood: good Affect: Blunted Thought Process: Linear, self dialogue Thought Content: On treatment Hallucinations: Denies but self dialogues Delusions: not expressed Insight: Impaired Judgment: Impaired Impulsivity: none noted Patient Appearance: Appropriate and Unkempt Patient Orientation: Person and Situation Level of Consciousness: Awake and Restless Patient Behavior: Talkative and Poor Eye Contact Mood Description: Labile Affect Description: Labile Patient Cognition Impaired: No Ability to Follow Directions: Poor Speech Pattern: Rambling and Poor Articulation Memory Description: Remote Impaired Diagnostics Vital Signs (24Hr): Vital Signs - 24 hr 05/23/25 20:00 05/24/25 08:00 Temperature 97.9 F 97.3 F Pulse Rate 73 87 Respiratory Rate 17 17 Blood Pressure 119/56 L 128/78 Pulse Oximetry 96 96 Oxygen Delivery Method Room Air Room Air BMI result Body Mass Index 37.7 Labs 03/29/25 08:55 05/22/25 18:29 Labs: Laboratory Results - last 48 hr 05/22/25 18:29 Absolute Neuts (auto) 6.7 Creatinine 1.23 Estim Creat Clear Calc 49.0 Estimated GFR 44 Imaging Radiology Impressions: ITS Impressions Head CT 03/05/25 15:51 IMPRESSION: 1. No acute intracranial abnormality. 2. Right-sided cochlear nerve implant with associated streak artifact. 3. Right-sided canal wall up mastoidectomy. Electronically signed by: Levi Greer MD 03/05/2025 04:25 PM EDT RP Lumbar Puncture Fluoroscopy 03/09/25 11:50 IMPRESSION: Successful fluoroscopy-guided lumbar puncture performed without immediate complications Electronically signed by: Thompson Andujar MD 03/09/2025 04:06 PM EDT RP Chest CT 03/11/25 11:52 IMPRESSION: 1. Multiple bilateral pulmonary nodules measuring up to 10 mm in size. Further evaluation should be based on Fleischner Society guidelines below. 2. Cardiomegaly. Findings consistent with pulmonary arterial hypertension. 3. No evidence of mediastinal or hilar lymphadenopathy. Fleischner Criteria for pulmonary nodule follow-up SOLID NODULES: Low risk patient: <6mm: no follow-up 6-8mm: 6 month follow-up CT >8mm: PET/Biopsy/ 3 month follow-up CT High risk patient: <6mm: 12 month follow-up CT 6-8mm: 6 month follow-up CT >8mm: PET/Biopsy/ 3 month follow-up CT SUB-SOLID/GROUNDGLASS NODULES: All patients: > or = 6mm: 6 month follow-up CT *Please note that in patients in the following categories, the Fleischner criteria do not apply: Immunocompromised, lung cancer screening population, age below 35, and patients with known malignancy Electronically signed by: Best Clemons MD 03/11/2025 01:45 PM EDT RP Head CTA 03/11/25 11:52 IMPRESSION: Head CT: No acute intracranial abnormality. CT angiogram of the head: No vascular occlusions. Electronically signed by: Gypsy Salamanca MD 03/11/2025 03:02 PM EDT RP Chest CT 04/24/25 09:58 IMPRESSION: 1. Majority of the previously seen pulmonary nodules have resolved, and were consistent with infectious or inflammatory etiology. 2. There is a persistent 9 mm nodular focus in the lateral right upper lobe, which is felt to represent scarring given the appearance. To be cautious, a 3 month interval follow-up CT is recommended to ensure stability. 3. There is mild to moderate paraseptal emphysema. There is no acute pneumonic consolidation. 4. There is thickening of the small airways suggesting bronchitis. 5. There is moderate cardiac enlargement. Enlarged main pulmonary artery is consistent with pulmonary arterial hypertension. Electronically signed by: Levi Greer MD 04/24/2025 10:56 AM EDT RP Medications Medications Current Medications Acetaminophen (Acetaminophen 325 Mg Tablet) 650 mg PO Q6H PRN PRN Reason: Headache/Pain, Scale 1-10 Last Admin: 05/23/25 09:16 Dose: 650 mg Al Hydroxide/Mg Hydroxide (Magnesium Hydrox/Alum Hydrox 30 Ml Oral.Susp) 30 ml PO Q6H PRN PRN Reason: Heartburn/Nausea Albuterol Sulfate (Albuterol Sulfate 90 Mcg 8 Gm Inhaler) 2 puff INHALE Q4H PRN PRN Reason: Shortness Of Breath Or Wheezing Last Admin: 05/22/25 08:55 Dose: 2 puff Atorvastatin Calcium (Atorvastatin Calcium 40 Mg Tablet) 40 mg PO DAILY [facility] Last Admin: 05/24/25 08:51 Dose: 40 mg Clonazepam (Clonazepam Odt 0.5 Mg Tab.Rapdis) 0.5 mg PO BID PRN PRN Reason: severe anxiety/sleep Last Admin: 05/10/25 05:31 Dose: 0.5 mg Clozapine (Clozapine 100 Mg Tablet) 200 mg PO BEDTIME ALLY Last Admin: 05/23/25 20:45 Dose: 200 mg Fluphenazine HCl (Fluphenazine Hcl 2.5 Mg/Ml 10 Ml Vial) 2.5 mg IM BID PRN PRN Reason: give if refuses oral per HCP Last Admin: 03/05/25 09:42 Dose: 2.5 mg Fluphenazine HCl (Fluphenazine Hcl 2.5 Mg Tablet) 2.5 mg PO BID [facility] Last Admin: 05/24/25 08:51 Dose: 2.5 mg Fluticasone/Vilanterol (Fluticasone/Vilanterol 200/25 Blst.W.Dev) 1 puff INHALE DAILY [facility] Last Admin: 05/24/25 08:48 Dose: 1 puff Glycopyrrolate (Glycopyrrolate 1 Mg Tablet) 0.5 mg PO BID [facility] Last Admin: 05/24/25 08:51 Dose: 0.5 mg Hydrochlorothiazide (Hydrochlorothiazide 25 Mg Tablet) 25 mg PO DAILY [facility] Last Admin: 05/24/25 08:51 Dose: 25 mg Levetiracetam (Levetiracetam Oral Soln 500 Mg/5 Ml) 250 mg PO BID [facility] Last Admin: 05/24/25 08:50 Dose: 250 mg Magnesium Hydroxide (Milk Of Magnesia 30 Ml Oral.Susp) 30 ml PO DAILY PRN PRN Reason: Constipation Metformin HCl (Metformin Hcl 500 Mg Tablet) 500 mg PO DAILY [facility] Last Admin: 05/24/25 08:51 Dose: 500 mg Methimazole (Methimazole 5 Mg Tablet) 5 mg PO DAILY [facility] Last Admin: 05/24/25 08:51 Dose: 5 mg Naloxone HCl (Naloxone Hcl 0.4 Mg/Ml Vial) 0.04 mg IVPUSH Q5M PRN PRN Reason: Excessive sedation or RR < 8 Nifedipine (Nifedipine Er 30 Mg Tab.Er.24) 30 mg PO DAILY [facility]; Protocol Last Admin: 05/24/25 08:51 Dose: 30 mg Olanzapine (Olanzapine 10 Mg Tablet) 10 mg PO Q6H PRN PRN Reason: severe agitation Last Admin: 04/16/25 16:28 Dose: 10 mg Prednisone (Prednisone 20 Mg Tablet) 40 mg PO DAILY [facility] Last Admin: 05/24/25 08:51 Dose: 40 mg Tiotropium [place] (Tiotropium [place] 2.5 Mcg 1 Puff/2.5 Mcg Mist.Inhal) 1 puff INHALE DAILY [facility] Last Admin: 05/24/25 08:53 Dose: 1 puff Trazodone HCl (Trazodone Hcl 50 Mg Tablet) 50 mg PO BEDTIME MRX1 PRN PRN Reason: Insomnia Last Admin: 04/04/25 23:21 Dose: 50 mg Allergies Allergies Allergy/AdvReac Type Severity Reaction Status Date / Time latex Allergy Unknown Verified 03/09/25 11:50 peanut Allergy Unknown Verified 03/09/25 11:50 Penicillins Allergy Unknown Verified 03/09/25 11:50 Assessment & Plan Assessment & Plan (1) Psychosis: Status: Acute Code(s): F29 - Unspecified psychosis not due to a substance or known physiological condition Assessment and Plan: r/o autoimmune reasons for psychosis including lupus. 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 Sharif is a 69 year-old woman who presents with a 3 month hx of new onset of psychosis (AH) and combination of paranoid delusions and cap gras delusions. No prior psychiatric hx. She does have of cocaine use but apparently had not used in some years. Daughter suspects she may have relapsed but no ongoing use. Pt presents with more complex theme of delusions. No additional medical work up available including head CT. CBC and cmp unremarkable. 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 It may be related to dementia process but complexity of delusions and psychosis not the common presentation for dementia that have psychosis early on such as in vascular dementia or LBD. Pt presents as gravely disable to able to care for self due to symptoms of psychosis and delusions. 02/03 increase night time risperidone 2mg po qhs increase cogetin at bedtime to 1mg po qhs. lower daily dose to 0.5mg po daily. continue cogentin 0.5mg po daily. clonazepam as prn olanzapine as prn for agitation 02/04 continue tx. 02/05 continue tx. 02/06 continue current dose of risperidone. NOTE THAT pt can't take doses higher than 3 mg/day of risperidone as higher doses had severe EPS. can use olanzapine as well per court order. 02/07/25: Patient has been agitated yelling loudly exist seeking, delusional thinking her daughter/son outside at the door to pick her up. PRNs given in the morning with mild effect. Patient became agitated, aggressive\, assaultive to 1 of the staff on the floor, yelling and hitting her face so grabbing her neck. Physical was started at 16:31 to 1634. Patient was given IM medication of Zyprexa 10 and Valium 10 with good effect. Tomorrow plan: Patient will be benefit from Valium 10 mg twice a day and Zyprexa 5 mg 3 times a day is added into her scheduled medication as current plan with risperidone is not effective. Patient also having a backup for risperidone if she refused. 02/08/25: Slept most of the morning and last night. In better behavior control. No aggressive behavior. She is quiet, self dialogue, and medication compliant. Due to receive restrain medication yesterday. I did not make any medication change. But the Valium and additional Zyprexa appears to be helpful. 02/09 will try to change keppra to depakote for seizures as keppra may exacerbate psychosis. increase risperidone 1mg po daily and 2mg po qhs. may need to add second antipsychotic. 02/10 continues to present as paranoid with AH. at times declines oral medications, requiring IM back per court order. 02/11 continue tx. 02/12 continue tx. 02/13 continue tx. 02/14: no changes today. Monitor for agitation around confusion about hospitalization 02/15: no changes today, self dialogue more overt/extensive today 02/16 add olanzapine 5mg po qhs. continue risperidone. minimal improvement if any. 02/17 continue tx. 02/18 seems more somnolent with bedtime olanzapine, will continue to monitor. 02/19 cbc showed thrombocytopenia, which is new and suspect related to depakote 02/20 pt appears more sedated since addition of olanzapine at bedtime. She continues to self dialogue. minimal improvement. 02/21: Continue current management and treatment plan. 02/22: continue current management and treatment plan. 02/23 continue tx. may need to affirm HCP try different antipsychotic. 02/24 continue tx. results of LENORE 1:360, pattern homogenous A. 02/25 will try rexulti, lower risperidone. pending coordination of medical care to see if underlying autoimmune condition has anything to do with current presentation. 02/26 discussed with hospital admitted attorneys to dismiss sect 8, HCP invoked and can consent to other treatment. daughter Maricruz give permission to try different antipsychotic. 02/27 decrease risperidone to 1mg po daily, start prolixin 2.5mg po qhs, then increase to BID. continue olanzapine prn for agitation. olanzapine as well per court order. 03/03 pt seen by neurology, added HIV/RPR/LYME, can't have MRI due to cochlear implant. 03/04 Received medical records from 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 Last Neurology appointment 01/2024. Missed appointment with rheumatology 05/2024, last seen in 02/26/2024. - Pt can't have MRI due to cochlear implant. Had head CT. - continue prolixin 2.5mg po daily, 5mg po qhs. will d/c risperidone, increase prolixin 5mg po BID, back up IM. 03/05 continue tx. 03/06 This typewriter repairer spoke with pt's tar pot man, Dr. Al obtained collateral information. Will coordinate with neurology and rheumatology once LP results are available. r/o reoccurance of pachymeningitis, lupus or other autoimmune cause for psychosis. 03/07: Continue current regimen and plans. Discontinued one-to-one and put in place 5 minute checks 03/08: Continue current plans and regimen 03/09 continue tx. 03/10: continue current mgmt. continues disorganized and psychotic. see neuro note from today. continue with neuro w/u. 03/11: given zyprexa 5 and valium [address] and head CTA. head CTA WNL, chest CT showed numerous pulmonary nodules up to 10 mm in size. no change in presentation. due to persistent requests for discharge, 3-day notice submitted on her behalf. will work toward HCP affirmation by the court. 03/12: per pulm consult, chest CT more c/w rheumatological process than CA, recommended empiric steroid course. awaiting input from neuro. consider Bx of nodules otherwise. continue current mgmt for now. 03/13: variably calm and agitated. planning for bronchoscopy with pulmonary nodule Bx on sunday. continue current mgmt. case discussed with HCP Maricruz (daughter), who is in agreement with plan. 03/14: CSF with notable findings. will f/u with neuro on sunday. stable presentation for now, remains quite psychotic. continue current mgmt. bronchoscopy sunday. 03/15: no change from yesterday in presentation or plan. 03/16: stable presentation. continues confused, wanting to go home. HCP affirmation tomorrow. continue current mgmt. 03/17: stable presdentation. bronchoscopy pending. continue current mgmt. 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 awaiting bronchoscopy. remains psychotic. continue current mgmt for now. 03/20: no change in presentation. still awaiting go-ahead for brochoscopy. continue current mgmt. 03/22: No changes. Noted above. 03/23: awaiting insurance approval for bronchoscopy. stable presentation. 03/24: as for yesterday. 03/25: loudly RIS in milieu today. bronchoscopy scheduled for sunday at 1130. NPO past MN night. stable presentation. continue current mgmt. 03/26 pt presents as more disorganized and inattentive than usual showing more signs of delirious behavior. bronchoscopy was canceled,due to shortage of needles to complete biopsy. will order cbc, cmp, ammonia levels given increase disorganized behavior and worsening attention pointing at a more delirious presentation. * Review of results from LP showing negative results for meningitis panel/paraneoplastic panel (including most common antibody found in SLC which is EARL 1 which was negative), elevated protein in CSF 131 without leukocytosis, also elevated CSF/serum IgG index. elevated anti-ds dna titer 1:80. Such results may point more to a rheumatological condition than infectious condition or malignancy. Mrs. Sharif's OP tar pot man, Dr. Al recommends trial of prednisone 40mg po daily at least for 2 weeks. 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 03/31 increase prolixin to 5mg po BID. continue all other medications including prednisone 40mg po daily. 04/01 discussed with her OP tar pot man, Dr. Al possibility of transferring to [facility] for further tx of autoimmune condition, suspected also having lupus. continue prednisone. Spoke with daughter who is HCP, daughter concern about pt going to [facility] due to being dismissed several times when pt was first brought psychotic. 04/02 continue tx 04/03 increase prolixin to 5mg po TID. monitor EPS. 04/06 continue tx. 04/07- pending response from [facility] to see if they will take her for further evaluation of autoimmune condition with multidisciplinary team to continue see if psychosis related to autoimmune or primarily psychosis. Some improvement in attention, less guarded. continues to have auditory hallucinations. May consider switch to clozapine given that she has tried 3 antipsychotics with limited efficacy. 04/08 start clozapine 25mg po qhs. continue prolixin 7.5mg po TID. 04/09 increase clozapine to 50mg po qhs. continue prolixin 7.5mg po TID. 04/10 decrease prolixin to 7.5mg po BID. increase clozapine to 75mg po qhs. continue increasing clozapine by 25mg/day. celery tier, recommends repeat CT in 2 weeks, and hold on bronchoscopy. 04/11: no change today, will titrate Clozapine further tomorrow 04/12: titrate Clozapine to 100 mg QHS 04/13 increase clozapine to 125mg po qhs. continue prolixin 7.5mg po BID. 04/14 Provided update to daughter Maricruz who is HCP in terms of pt being treated for both autoimmune condition that may be contributing to psychosis (with prednione) as well as primarily psychiatric disorder (although less likely) with clozapine. some improvement in attention, slightly less paranoid but continues to present with ongoing AH of her daughter. 04/15 continue tx. 04/16 continue tx. 04/17 start glycopyrralate for drooling, decrease cogentin. 04/17 increase clozapine 150mg po qhs, lower prolixin 2.5mg po BID. back up. 04/18: Continue current management and treatment plan. 04/19: continue current management and treatment plan. 04/20 increase clozapine to 175mg po qhs. 04/21 continue tx. 04/22 continue tx. 04/23 continue tx. will check clozapine levels. 04/[address] followed up done today- much less nodules seen. 04/27 no change in presentation, less paranoid towards staff but ongoing AH. Impaired awareness of surroundings and conversations mostly base on delusional content. Will consult as well with her OP General Manager as to whether continue prednisone as initially recommended by rheumatology for suspected lupus, although it has had additional benefits in lung nodules. 04/28 increase clozapine 200mg po qhs. 04/[address] showed improvement in her pulmonary nodules and absence of pulmonary symptoms otherwise. recommendation to taper off prednisone slowly with repeat of chest CT in 3 months for stability of reminder of nodules. her OP tar pot man did want to continue prednisone for suspected lupus, may discuss further with rheumatology if they want to continue prednisone or stop it. 04/30 continue tx. 05/01 continue tx. will check clozapine level on 05/04/2505/05 continue tx. pending clozapine levels. 05/06 continue tx. 05/07 continue tx. 05/08 continue tx. 05/09 through 05/11 no change in presentation; continue treatment plan 05/12/25: No change, slept through the night. Medication compliant. Ambulate using walker, walker next to table in dining area where patient sits. Visible in common area but not attended groups. Calm, pleasant and cooperative. No notable side effects from medication. Feeling safe here I want to be home but the weather does not allow me to go home . Last BM was yesterday. Communicate with staff via written form. 05/13/25: Visible, eating and sleeping well. Medication compliant, no side effects. Denies safety concerns, denies voices. however, she is responded to internal stimuli, self dialogues at times. No behavior issues. Pending Clozaril level. 05/14/25: Patient visible, calm, pleasant and cooperative. Medication compliant, some drooling while napping in bed. Passing gas, had BM yesterday. Report feeling tired but denies depression/anxiety. She self dialogue quietly, appear responding to internal stimuli. No behavior issues. No sleeping or appetite problems. Patient observed at some point this afternoon do some coloring art work at the table. Patient was assessed by PT team, report patient is at baseline, using walker. No further assessment needed. Potential will get the bed at [facility]. 05/15/25: Visible, slept well, no appetite issues, compliant with medications. However, patient has not shower often yesterday, per nursing patient believes there was a man in her room therefore she refused to shower yesterday. She states that she will shower later on today when staff is available to help. Reports pain on her back, legs, and joint. She good like to do some coloring after lunch. Per nursing patient has raised her voice asking for tramadol a couple of times a day for pain. Appears responding to internal stimuli, but no major issues. Clazapine 313. Norclozapine 81 Therapeutic. 05/16/25: Patient slept well, no issue with appetite, compliant with medications. Calm, pleasant and cooperative. No behavior issues. Ambulate using a walker. Patient told other peers who on the table in dining area that she talks to herself and out loud because bug in her ear. Patient appeared responding to internal stimuli at baseline. 05/17/25: No issue with sleep or appetite, compliant with medications, visible in common areas at times, mostly required but self dialogue and responding to internal stimuli at times in a quiet way. Patient asked for toilet tree to shower and brush her teeth. Given Tylenol for mild pain with good effect. 05/18/25: Patient is visible in common areas, appear to be tired and sleepy at lunch at the table in dining area. Report she feels ok today, slept well and has no issues with appetite. She asks if she can get a coffee with creamer and sugar after encounter. Report gerenral pain on the back and says I need Tylenol or tramadol . Self report last BM was yesterday. Report I have bug in my ear and feeling down , and I talk to my daughter, my fiance and other peoole when asked who she usually talks to. No behavior issues. Ambulating using walker. Wait for placement. Continue with current tx plan. 05/19/25: Per note: [facility] has accepted patient for admission. Submitted PASRR level I and she will need Level II screen . Updated daughter ( affirmed HCP) and once PASRR is completed patient will transfer. Daughter expressed happiness regarding outcome and the fact that patient will be closer to them in [place]. Estimated date of discharge is within 1-2 weeks LT care bed has not opened at this time, but liaision stated it she would follow. Patient slept well, no issues with sleep, appetite, or medication compliant. She thinks she is leaving tomorrow morning. She appears bright up whenever this provider approaches her. Report she feels good and thanks for checking on her. Last BM is this morning. Continue with current tx plan. Waiting for placement. 05/20/25: Patient slept through the night, visible, self dialogue in common areas, appear tired but brighten up when approach. Report mood is good. Denies anxiety or depression. She believes she should be leaving this morning but the [employer] was canceled d/t the weather . Report feeling safe. Ask for coffee and two crackers at the end of encounter when asked if she has any questions. Also discuss with patient regarding weight gain. She says that she has salad and will reduce sugar in her coffee. Will send real estate investment analyst consult to talk to patient regarding healthier choices to prevent too much weight gain. 05/21: Continue current treatment regimen. Plan to discharge next week. 05/22/25: Patient slept 8 hours, compliant with meds. Informed that Metformin will add on today to help with weight control. Patient states that she will take no meds. However, when nurse offered Metformin, patient took it without any issues. Patient request crackers which nursing asked patient to not having it as lunch will be here in 20-30 min. Patient was irritable regarding not given snack she asked for. Patient responded to internal stimuli, reported that she is taking to my siblings when she was out in dinning room talking to someone who are not there. Potential to be discharged next week with [facility], Grayson Roland. Metformin 500mg daily in the AM for weight control. 05/23: continue current management and treatment plan. 05/24: continue current management and treatment plan. Reason for continued inpatient stay Substantial Risk for: inability to function and rapid decompensation Time Spent With Patient Time: Total time managing care of this patient today ____ minutes.
[2025-05-24] MEDS: Albuterol Sulfate 90 MCG 8 GM INHALER 2 PUFF INHALE (14:11)
[2025-05-24 20:00] VITALS: BP 111/56; PULSE 71; RESP 16; TEMP 36.6; O2SAT 95
[2025-05-25 08:34] VITALS: BP 118/56; PULSE 70; RESP 16; TEMP 36.9; O2SAT 95
[2025-05-25] MEDS: Tiotropium Bromide 2.5 mcg 1 PUFF/2.5 MCG MIST.INHAL INHALE (08:35)
[2025-05-25] MEDS: Fluticasone/Vilanterol 200/25 BLST.W.DEV 1 PUFF INHALE (08:35)
[2025-05-25] MEDS: levETIRAcetam Oral Soln 500 MG/5 ML 250 MG PO ×2 (08:36→20:18)
[2025-05-25] MEDS: NIFEdipine ER 30 MG TAB.ER.24 PO (08:37)
--- NOTE | 2025-05-25 09:26 | P.PNPSI_ITS ---
Subjective Subjective Date of Service: 05/25/25 Reason For Visit: Abnormal CT chest Subjective Notes: [place] Order and Section 8 Healthcare Proxy: Yes Guardianship: Yes Medical Problems Affecting Mental Status: No Interim History: Medical record and nursing notes reviewed; case discussed during rounds with team/nursing staff, and met with patient for supportive therapy/psychoeducation, as well as medication management. Patient slept for 8 hours, compliant with meds. Nursing report that patient has been trying to not putting too much sugar in her coffee as she has been educated for healthy choices to prevent too much weight gain. Report she feels pretty good but a little tired d/t the weather and there are a lot of things in my mind . Napping after lunch in bed. She says that she wants to go home but somewhat feeling safe here at well. Report that I want to go home but when I get home, I do not make right choice . Report that I am going through a lot. I am trying to handle it and put things in God's hand . Denies voices. Very police and cooperative. Sitting up from lying down during 1-1 assessment showing her cooperative as usual. Seen by Supervisor [employer] this morning to assess if necessary to continue on Prednisone. Per Supervisor [employer], will start taper down prednisone down 10mg every 10 days. Medication Compliance: Yes Side effects from medications: No (except for weight gain) Attending Groups: No Review of Systems Acute medical concerns: No Medical Review of Systems: unchanged Review of Systems Review of Systems Constitutional: Denies fatigue and Denies fever(s) Cardiovascular: Denies chest pain and Denies dyspnea Respiratory: Denies dyspnea Gastrointestinal: Denies abdominal pain Psychiatric: denies suicidal ideation Endocrine: Denies fatigue but feel tired Yes all other systems are reviewed and are negative, Unobtainable due to mental condition, Unobtainable due to mental status and Other (patient refused to answer ROS questions) Constitutional: Reports as per HPI Eyes: Reports as per HPI Reports as per HPI Cardiovascular: Reports as per HPI Respiratory: Reports as per HPI Gastrointestinal: Reports as per HPI Musculoskeletal: Reports as per HPI Skin/Breast: Reports as per HPI Reports as per HPI and Reports confusion Psychiatric: Reports as per HPI and Reports confusion Endocrine: Reports as per HPI Hematologic/Lymphatic: Reports as per HPI Allergic/Immunologic: Reports as per HPI Mental Status Exam Mental Status Exam Narrative: Appearance: casual attire, unkempt hair, grooming otherwise adequate, poor hygiene Behavior: calm, keeping to self, minimal eye contact, engagement limited by vision and hearing difficulties Orientation: alert, oriented to idea that she is in the hospital, year, month not date nor situation Psychomotor Function: no agitation or slowing; no abnormal gestures or movements Speech: normal rate/rhythm/volume, spontaneous Mood: good but tired Affect: Blunted Thought Process: Linear, self dialogue Thought Content: On treatment Hallucinations: Denies but self dialogues Delusions: not expressed Insight: Impaired Judgment: Impaired Impulsivity: none noted Diagnostics Vital Signs (24Hr): Vital Signs - 24 hr 05/24/25 20:00 05/25/25 08:34 Temperature 97.8 F 98.4 F Pulse Rate 71 70 Respiratory Rate 16 16 Blood Pressure 111/56 L 118/56 L Pulse Oximetry 95 95 Oxygen Delivery Method Room Air Room Air BMI result Body Mass Index 37.7 Labs 03/29/25 08:55 05/22/25 18:29 Imaging Radiology Impressions: ITS Impressions Head CT 03/05/25 15:51 IMPRESSION: 1. No acute intracranial abnormality. 2. Right-sided cochlear nerve implant with associated streak artifact. 3. Right-sided canal wall up mastoidectomy. Electronically signed by: Levi Greer MD 03/05/2025 04:25 PM EDT Lumbar Puncture Fluoroscopy 03/09/25 11:50 IMPRESSION: Successful fluoroscopy-guided lumbar puncture performed without immediate complications Electronically signed by: Thompson Andujar MD 03/09/2025 04:06 PM EDT RP Chest CT 03/11/25 11:52 IMPRESSION: 1. Multiple bilateral pulmonary nodules measuring up to 10 mm in size. Further evaluation should be based on Fleischner Society guidelines below. 2. Cardiomegaly. Findings consistent with pulmonary arterial hypertension. 3. No evidence of mediastinal or hilar lymphadenopathy. Fleischner Criteria for pulmonary nodule follow-up SOLID NODULES: Low risk patient: <6mm: no follow-up 6-8mm: 6 month follow-up CT >8mm: PET/Biopsy/ 3 month follow-up CT High risk patient: <6mm: 12 month follow-up CT 6-8mm: 6 month follow-up CT >8mm: PET/Biopsy/ 3 month follow-up CT SUB-SOLID/GROUNDGLASS NODULES: All patients: > or = 6mm: 6 month follow-up CT *Please note that in patients in the following categories, the Fleischner criteria do not apply: Immunocompromised, lung cancer screening population, age below 35, and patients with known malignancy Electronically signed by: Best Clemons MD 03/11/2025 01:45 PM EDT RP Head CTA 03/11/25 11:52 IMPRESSION: Head CT: No acute intracranial abnormality. CT angiogram of the head: No vascular occlusions. Electronically signed by: Gypsy Salamanca MD 03/11/2025 03:02 PM EDT RP Chest CT 04/24/25 09:58 IMPRESSION: 1. Majority of the previously seen pulmonary nodules have resolved, and were consistent with infectious or inflammatory etiology. 2. There is a persistent 9 mm nodular focus in the lateral right upper lobe, which is felt to represent scarring given the appearance. To be cautious, a 3 month interval follow-up CT is recommended to ensure stability. 3. There is mild to moderate paraseptal emphysema. There is no acute pneumonic consolidation. 4. There is thickening of the small airways suggesting bronchitis. 5. There is moderate cardiac enlargement. Enlarged main pulmonary artery is consistent with pulmonary arterial hypertension. Electronically signed by: Levi Greer MD 04/24/2025 10:56 AM EDT RP Medications Medications Current Medications Acetaminophen (Acetaminophen 325 Mg Tablet) 650 mg PO Q6H PRN PRN Reason: Headache/Pain, Scale 1-10 Last Admin: 05/23/25 09:16 Dose: 650 mg Al Hydroxide/Mg Hydroxide (Magnesium Hydrox/Alum Hydrox 30 Ml Oral.Susp) 30 ml PO Q6H PRN PRN Reason: Heartburn/Nausea Albuterol Sulfate (Albuterol Sulfate 90 Mcg 8 Gm Inhaler) 2 puff INHALE Q4H PRN PRN Reason: Shortness Of Breath Or Wheezing Last Admin: 05/24/25 14:11 Dose: 2 puff Atorvastatin Calcium (Atorvastatin Calcium 40 Mg Tablet) 40 mg PO DAILY ALLY Last Admin: 05/25/25 08:37 Dose: 40 mg Clonazepam (Clonazepam Odt 0.5 Mg Tab.Rapdis) 0.5 mg PO BID PRN PRN Reason: severe anxiety/sleep Last Admin: 05/10/25 05:31 Dose: 0.5 mg Clozapine (Clozapine 100 Mg Tablet) 200 mg PO BEDTIME [facility] Last Admin: 05/24/25 20:52 Dose: 200 mg Fluphenazine HCl (Fluphenazine Hcl 2.5 Mg/Ml 10 Ml Vial) 2.5 mg IM BID PRN PRN Reason: give if refuses oral per HCP Last Admin: 03/05/25 09:42 Dose: 2.5 mg Fluphenazine HCl (Fluphenazine Hcl 2.5 Mg Tablet) 2.5 mg PO BID [facility] Last Admin: 05/25/25 08:37 Dose: 2.5 mg Fluticasone/Vilanterol (Fluticasone/Vilanterol 200/25 Blst.W.Dev) 1 puff INHALE DAILY [facility] Last Admin: 05/25/25 08:35 Dose: 1 puff Glycopyrrolate (Glycopyrrolate 1 Mg Tablet) 0.5 mg PO BID [facility] Last Admin: 05/25/25 08:38 Dose: 0.5 mg Hydrochlorothiazide (Hydrochlorothiazide 25 Mg Tablet) 25 mg PO DAILY [facility] Last Admin: 05/25/25 08:37 Dose: 25 mg Levetiracetam (Levetiracetam Oral Soln 500 Mg/5 Ml) 250 mg PO BID [facility] Last Admin: 05/25/25 08:36 Dose: 250 mg Magnesium Hydroxide (Milk Of Magnesia 30 Ml Oral.Susp) 30 ml PO DAILY PRN PRN Reason: Constipation Metformin HCl (Metformin Hcl 500 Mg Tablet) 500 mg PO DAILY [facility] Last Admin: 05/25/25 08:37 Dose: 500 mg Methimazole (Methimazole 5 Mg Tablet) 5 mg PO DAILY [facility] Last Admin: 05/25/25 08:37 Dose: 5 mg Naloxone HCl (Naloxone Hcl 0.4 Mg/Ml Vial) 0.04 mg IVPUSH Q5M PRN PRN Reason: Excessive sedation or RR < 8 Nifedipine (Nifedipine Er 30 Mg Tab.Er.24) 30 mg PO DAILY [facility]; Protocol Last Admin: 05/25/25 08:37 Dose: 30 mg Olanzapine (Olanzapine 10 Mg Tablet) 10 mg PO Q6H PRN PRN Reason: severe agitation Last Admin: 04/16/25 16:28 Dose: 10 mg Prednisone (Prednisone 20 Mg Tablet) 40 mg PO DAILY [facility] Last Admin: 05/25/25 08:38 Dose: 40 mg Tiotropium [place] (Tiotropium [place] 2.5 Mcg 1 Puff/2.5 Mcg Mist.Inhal) 1 puff INHALE DAILY [facility] Last Admin: 05/25/25 08:35 Dose: 1 puff Trazodone HCl (Trazodone Hcl 50 Mg Tablet) 50 mg PO BEDTIME MRX1 PRN PRN Reason: Insomnia Last Admin: 04/04/25 23:21 Dose: 50 mg Allergies Allergies Allergy/AdvReac Type Severity Reaction Status Date / Time latex Allergy Unknown Verified 03/09/25 11:50 peanut Allergy Unknown Verified 03/09/25 11:50 Penicillins Allergy Unknown Verified 03/09/25 11:50 Assessment & Plan Assessment & Plan (1) Psychosis: Status: Acute Code(s): F29 - Unspecified psychosis not due to a substance or known physiological condition Assessment and Plan: r/o autoimmune reasons for psychosis including lupus. 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 Sharif is a 69 year-old woman who presents with a 3 month hx of new onset of psychosis (AH) and combination of paranoid delusions and cap gras delusions. No prior psychiatric hx. She does have of cocaine use but apparently had not used in some years. Daughter suspects she may have relapsed but no ongoing use. Pt presents with more complex theme of delusions. No additional medical work up available including head CT. CBC and cmp unremarkable. 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 It may be related to dementia process but complexity of delusions and psychosis not the common presentation for dementia that have psychosis early on such as in vascular dementia or LBD. Pt presents as gravely disable to able to care for self due to symptoms of psychosis and delusions. 7/8 increase night time risperidone 2mg po qhs increase cogetin at bedtime to 1mg po qhs. lower daily dose to 0.5mg po daily. continue cogentin 0.5mg po daily. clonazepam as prn olanzapine as prn for agitation 02/04 continue tx. 02/05 continue tx. 02/06 continue current dose of risperidone. NOTE THAT pt can't take doses higher than 3 mg/day of risperidone as higher doses had severe EPS. can use olanzapine as well per court order. 02/07/25: Patient has been agitated yelling loudly exist seeking, delusional thinking her daughter/son outside at the door to pick her up. PRNs given in the morning with mild effect. Patient became agitated, aggressive\, assaultive to 1 of the staff on the floor, yelling and hitting her face so grabbing her neck. Physical was started at 16:31 to 1634. Patient was given IM medication of Zyprexa 10 and Valium 10 with good effect. Tomorrow plan: Patient will be benefit from Valium 10 mg twice a day and Zyprexa 5 mg 3 times a day is added into her scheduled medication as current plan with risperidone is not effective. Patient also having a backup for risperidone if she refused. 02/08/25: Slept most of the morning and last night. In better behavior control. No aggressive behavior. She is quiet, self dialogue, and medication compliant. Due to receive restrain medication yesterday. I did not make any medication change. But the Valium and additional Zyprexa appears to be helpful. 02/09 will try to change keppra to depakote for seizures as keppra may exacerbate psychosis. increase risperidone 1mg po daily and 2mg po qhs. may need to add second antipsychotic. 02/10 continues to present as paranoid with AH. at times declines oral medications, requiring IM back per court order. 02/11 continue tx. 02/12 continue tx. 02/13 continue tx. 02/14: no changes today. Monitor for agitation around confusion about hospitalization 02/15: no changes today, self dialogue more overt/extensive today 02/16 add olanzapine 5mg po qhs. continue risperidone. minimal improvement if any. 02/17 continue tx. 02/18 seems more somnolent with bedtime olanzapine, will continue to monitor. 02/19 cbc showed thrombocytopenia, which is new and suspect related to depakote 02/20 pt appears more sedated since addition of olanzapine at bedtime. She continues to self dialogue. minimal improvement. 02/21: Continue current management and treatment plan. 02/22: continue current management and treatment plan. 02/23 continue tx. may need to affirm HCP try different antipsychotic. 02/24 continue tx. results of LENORE 1:360, pattern homogenous A. 02/25 will try rexulti, lower risperidone. pending coordination of medical care to see if underlying autoimmune condition has anything to do with current presentation. 02/26 discussed with hospital research attorney to dismiss sect 8, HCP invoked and can consent to other treatment. daughter Maricruz give permission to try different antipsychotic. 02/27 decrease risperidone to 1mg po daily, start prolixin 2.5mg po qhs, then increase to BID. continue olanzapine prn for agitation. olanzapine as well per court order. 03/03 pt seen by neurology, added HIV/RPR/LYME, can't have MRI due to cochlear implant. 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 Last Neurology appointment 01/2024. Missed appointment with rheumatology 05/2024, last seen in 02/26/2024. - Pt can't have MRI due to cochlear implant. Had head CT. - continue prolixin 2.5mg po daily, 5mg po qhs. will d/c risperidone, increase prolixin 5mg po BID, back up IM. 03/05 continue tx. 03/06 This clinical writer spoke with pt's gas turbine powerplant mechanic helper, Dr. Al obtained collateral information. Will coordinate with neurology and rheumatology once LP results are available. r/o reoccurance of pachymeningitis, lupus or other autoimmune cause for psychosis. 03/07: Continue current regimen and plans. Discontinued one-to-one and put in place 5 minute checks 03/08: Continue current plans and regimen 03/09 continue tx. 03/10: continue current mgmt. continues disorganized and psychotic. see neuro note from today. continue with neuro w/u. 03/11: given zyprexa 5 and valium [address] and head CTA. head CTA WNL, chest CT showed numerous pulmonary nodules up to 10 mm in size. no change in presentation. due to persistent requests for discharge, 3-day notice submitted on her behalf. will work toward HCP affirmation by the court. 03/12: per pulm consult, chest CT more c/w rheumatological process than CA, recommended empiric steroid course. awaiting input from neuro. consider Bx of nodules otherwise. continue current mgmt for now. 03/13: variably calm and agitated. planning for bronchoscopy with pulmonary nodule Bx on sunday. continue current mgmt. case discussed with HCP Maricruz (daughter), who is in agreement with plan. 03/14: CSF with notable findings. will f/u with neuro on sunday. stable presentation for now, remains quite psychotic. continue current mgmt. bronchoscopy sunday. 03/15: no change from yesterday in presentation or plan. 03/16: stable presentation. continues confused, wanting to go home. HCP affirmation tomorrow. continue current mgmt. 03/17: stable presdentation. bronchoscopy pending. continue current mgmt. 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 awaiting bronchoscopy. remains psychotic. continue current mgmt for now. 03/20: no change in presentation. still awaiting go-ahead for brochoscopy. continue current mgmt. 03/22: No changes. Noted above. 03/23: awaiting insurance approval for bronchoscopy. stable presentation. 03/24: as for yesterday. 03/25: loudly RIS in milieu today. bronchoscopy scheduled for sunday at 1130. NPO past MN night. stable presentation. continue current mgmt. 03/26 pt presents as more disorganized and inattentive than usual showing more signs of delirious behavior. bronchoscopy was canceled,due to shortage of needles to complete biopsy. will order cbc, cmp, ammonia levels given increase disorganized behavior and worsening attention pointing at a more delirious presentation. * Review of results from LP showing negative results for meningitis panel/paraneoplastic panel (including most common antibody found in SLC which is EARL 1 which was negative), elevated protein in CSF 131 without leukocytosis, also elevated CSF/serum IgG index. elevated anti-ds dna titer 1:80. Such results may point more to a rheumatological condition than infectious condition or malignancy. Mrs. Sharif's OP gas turbine powerplant mechanic helper, Dr. Al recommends trial of prednisone 40mg po daily at least for 2 weeks. 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 03/31 increase prolixin to 5mg po BID. continue all other medications including prednisone 40mg po daily. 04/01 discussed with her OP gas turbine powerplant mechanic helper, Dr. Al possibility of transferring to [facility] for further tx of autoimmune condition, suspected also having lupus. continue prednisone. Spoke with daughter who is HCP, daughter concern about pt going to [facility] due to being dismissed several times when pt was first brought psychotic. 04/02 continue tx 04/03 increase prolixin to 5mg po TID. monitor EPS. 04/06 continue tx. 04/07- pending response from [facility] to see if they will take her for further evaluation of autoimmune condition with multidisciplinary team to continue see if psychosis related to autoimmune or primarily psychosis. Some improvement in attention, less guarded. continues to have auditory hallucinations. May consider switch to clozapine given that she has tried 3 antipsychotics with limited efficacy. 04/08 start clozapine 25mg po qhs. continue prolixin 7.5mg po TID. 04/09 increase clozapine to 50mg po qhs. continue prolixin 7.5mg po TID. 04/10 decrease prolixin to 7.5mg po BID. increase clozapine to 75mg po qhs. continue increasing clozapine by 25mg/day. 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 04/11: no change today, will titrate Clozapine further tomorrow 04/12: titrate Clozapine to 100 mg QHS 04/13 increase clozapine to 125mg po qhs. continue prolixin 7.5mg po BID. 04/14 Provided update to daughter Maricruz who is HCP in terms of pt being treated for both autoimmune condition that may be contributing to psychosis (with prednione) as well as primarily psychiatric disorder (although less likely) with clozapine. some improvement in attention, slightly less paranoid but continues to present with ongoing AH of her daughter. 04/15 continue tx. 04/16 continue tx. 04/17 start glycopyrralate for drooling, decrease cogentin. 04/17 increase clozapine 150mg po qhs, lower prolixin 2.5mg po BID. back up. 04/18: Continue current management and treatment plan. 04/19: continue current management and treatment plan. 04/20 increase clozapine to 175mg po qhs. 04/21 continue tx. 04/22 continue tx. 04/23 continue tx. will check clozapine levels. 04/[address] followed up done today- much less nodules seen. 04/27 no change in presentation, less paranoid towards staff but ongoing AH. Impaired awareness of surroundings and conversations mostly base on delusional content. Will consult as well with her OP Billboard Erector Helper as to whether continue prednisone as initially recommended by rheumatology for suspected lupus, although it has had additional benefits in lung nodules. 04/28 increase clozapine 200mg po qhs. 04/[address] showed improvement in her pulmonary nodules and absence of pulmonary symptoms otherwise. recommendation to taper off prednisone slowly with repeat of chest CT in 3 months for stability of reminder of nodules. her OP gas turbine powerplant mechanic helper did want to continue prednisone for suspected lupus, may discuss further with rheumatology if they want to continue prednisone or stop it. 04/30 continue tx. 05/01 continue tx. will check clozapine level on 05/04/2505/05 continue tx. pending clozapine levels. 05/06 continue tx. 05/07 continue tx. 05/08 continue tx. 05/09 through 05/11 no change in presentation; continue treatment plan 05/12/25: No change, slept through the night. Medication compliant. Ambulate using walker, walker next to table in dining area where patient sits. Visible in common area but not attended groups. Calm, pleasant and cooperative. No notable side effects from medication. Feeling safe here I want to be home but the weather does not allow me to go home . Last BM was yesterday. Communicate with staff via written form. 05/13/25: Visible, eating and sleeping well. Medication compliant, no side effects. Denies safety concerns, denies voices. however, she is responded to internal stimuli, self dialogues at times. No behavior issues. Pending Clozaril level. 05/14/25: Patient visible, calm, pleasant and cooperative. Medication compliant, some drooling while napping in bed. Passing gas, had BM yesterday. Report feeling tired but denies depression/anxiety. She self dialogue quietly, appear responding to internal stimuli. No behavior issues. No sleeping or appetite problems. Patient observed at some point this afternoon do some coloring art work at the table. Patient was assessed by PT team, report patient is at baseline, using walker. No further assessment needed. Potential will get the bed at [facility]. 05/15/25: Visible, slept well, no appetite issues, compliant with medications. However, patient has not shower often yesterday, per nursing patient believes there was a man in her room therefore she refused to shower yesterday. She states that she will shower later on today when staff is available to help. Reports pain on her back, legs, and joint. She good like to do some coloring after lunch. Per nursing patient has raised her voice asking for tramadol a couple of times a day for pain. Appears responding to internal stimuli, but no major issues. Clazapine 313. Norclozapine 81 Therapeutic. 05/16/25: Patient slept well, no issue with appetite, compliant with medications. Calm, pleasant and cooperative. No behavior issues. Ambulate using a walker. Patient told other peers who on the table in dining area that she talks to herself and out loud because bug in her ear. Patient appeared responding to internal stimuli at baseline. 05/17/25: No issue with sleep or appetite, compliant with medications, visible in common areas at times, mostly required but self dialogue and responding to internal stimuli at times in a quiet way. Patient asked for toilet tree to shower and brush her teeth. Given Tylenol for mild pain with good effect. 05/18/25: Patient is visible in common areas, appear to be tired and sleepy at lunch at the table in dining area. Report she feels ok today, slept well and has no issues with appetite. She asks if she can get a coffee with creamer and sugar after encounter. Report gerenral pain on the back and says I need Tylenol or tramadol . Self report last BM was yesterday. Report I have bug in my ear and feeling down , and I talk to my daughter, my fiance and other peoole when asked who she usually talks to. No behavior issues. Ambulating using walker. Wait for placement. Continue with current tx plan. 05/19/25: Per note: [facility] [place] has accepted patient for admission. Submitted PASRR level I and she will need Level II screen . Updated daughter ( affirmed HCP) and once PASRR is completed patient will transfer. Daughter expressed happiness regarding outcome and the fact that patient will be closer to them in [place]. Estimated date of discharge is within 1-2 weeks LT care bed has not opened at this time, but liaision stated it she would follow. Patient slept well, no issues with sleep, appetite, or medication compliant. She thinks she is leaving tomorrow morning. She appears bright up whenever this provider approaches her. Report she feels good and thanks for checking on her. Last BM is this morning. Continue with current tx plan. Waiting for placement. 05/20/25: Patient slept through the night, visible, self dialogue in common areas, appear tired but brighten up when approach. Report mood is good. Denies anxiety or depression. She believes she should be leaving this morning but the Uber was canceled d/t the weather . Report feeling safe. Ask for coffee and two crackers at the end of encounter when asked if she has any questions. Also discuss with patient regarding weight gain. She says that she has salad and will reduce sugar in her coffee. Will send shirt trimmer consult to talk to patient regarding healthier choices to prevent too much weight gain. 05/21: Continue current treatment regimen. Plan to discharge next week. 05/22/25: Patient slept 8 hours, compliant with meds. Informed that Metformin will add on today to help with weight control. Patient states that she will take no meds. However, when nurse offered Metformin, patient took it without any issues. Patient request crackers which nursing asked patient to not having it as lunch will be here in 20-30 min. Patient was irritable regarding not given snack she asked for. Patient responded to internal stimuli, reported that she is taking to my siblings when she was out in dinning room talking to someone who are not there. Potential to be discharged next week with [facility]. Metformin 500mg daily in the AM for weight control. 05/23: continue current management and treatment plan. 05/24: continue current management and treatment plan. 05/25/25: Patient slept for 8 hours, compliant with meds. Nursing report that patient has been trying to not putting too much sugar in her coffee as she has been educated for healthy choices to prevent too much weight gain. Report she feels pretty good but a little tired d/t the weather and there are a lot of things in my mind . Napping after lunch in bed. She says that she wants to go home but somewhat feeling safe here at well. Report that I want to go home but when I get home, I do not make right choice . Report that I am going through a lot. I am trying to handle it and put things in God's hand . Denies voices. Very police and cooperative. Sitting up from lying down during 1-1 assessment showing her cooperative as usual. Seen by [employer] this morning to assess if necessary to continue on Prednisone. Per [employer], will start taper down prednisone down 10mg every 10 days. Prednisone 30mg santana down from 40mg. Will continue with taper. ANC WNL. Patient educated on: diagnosis, medication risk/benefits and therapeutic strategies Informed Consent: further education needed Reason for continued inpatient stay Substantial Risk for: med/psych decompensation Time Spent With Patient Time: Total time managing care of this patient today ____ minutes.
--- NOTE | 2025-05-25 10:15 | P.PNPL_ITS ---
Subjective Subjective Date of Service: 05/25/25 Interval history: No pulmonary complaints at this time. Objective Data Labs 03/29/25 08:55 05/22/25 18:29 Microbiology Microbiology Results: Microbiology 03/09/25 12:40 Cerebrospinal Fluid Gram Stain - Final 03/09/25 12:40 Cerebrospinal Fluid Fluid Description - Final 03/09/25 12:40 Cerebrospinal Fluid CSF Culture - Final No growth after 3 days. Physical Exam 2 Vital Signs: Vital Signs: Last Vital Signs Temp 98.4 F 05/25/25 08:34 Pulse 70 05/25/25 08:34 Resp 16 05/25/25 08:34 BP 118/56 L 05/25/25 08:34 Pulse Ox 95 05/25/25 08:34 O2 Del Method Room Air 05/25/25 08:34 BMI result Body Mass Index 37.7 Const: General: no acute distress, alert and awake Eyes: Sclerae: sclerae normal EOM: EOMs intact bilaterally Neck: Neck: Yes no lymphadenopathy, Yes trachea midline and Yes supple Resp: Effort & Inspection: normal respiratory effort and no respiratory distress Auscultation: clear to auscultation bilaterally Cardio: Rate: regular rate Rhythm: regular rhythm Heart sounds: no gallops, no murmurs and no rubs GI: Palpation (GI): Soft to palpation and Other GI palpation findings present ( Nontender) Auscultation: normal bowel sounds Extrem: General: Yes no pedal edema, No clubbing and No cyanosis Procedures Date of Service Date of Service: 05/25/25 Assessment and Plan Assessment and plan (1) Pulmonary nodules: Status: Acute Plan Titrate prednisone down by 10 mg every 7 days. Time Spent With Patient Time: Total time managing care of this patient today ____ minutes. Progress Note: Quality Stroke Does the patient have a stroke diagnosis?: No
[2025-05-25 20:00] VITALS: BP 129/68; PULSE 79; RESP 20; TEMP 36.4; O2SAT 97
[2025-05-26 08:00] VITALS: BP 131/72; PULSE 67; RESP 16; TEMP 36.5; O2SAT 94
--- NOTE | 2025-05-26 10:06 | P.PNPSI_ITS ---
Subjective Subjective Date of Service: 05/26/25 Reason For Visit: Abnormal CT chest Subjective Notes: Section 8 Healthcare Proxy: Yes Medical Problems Affecting Mental Status: No Interim History: Medical record and nursing notes reviewed; case discussed during rounds with team/nursing staff, and met with patient for supportive therapy/psychoeducation, as well as medication management. Patient reports sleeping well with good appetite. Observed snacking after lunch in dinning area. Mood is good but feel tired and cannot complaint , denies hallucinations but observed responded and talking someone who are not there next to her. However, no behavior issues. She does not know current month/day but does know current year and [facility] that she is at. Report small BM today. Medication Compliance: Yes Side effects from medications: No Attending Groups: No Review of Systems Acute medical concerns: No Medical Review of Systems: unchanged Review of Systems Review of Systems Constitutional: Denies fatigue and Denies fever(s) Cardiovascular: Denies chest pain and Denies dyspnea Respiratory: Denies dyspnea Gastrointestinal: Denies abdominal pain Psychiatric: denies suicidal ideation Endocrine: Denies fatigue but feel tired Yes all other systems are reviewed and are negative, Unobtainable due to mental condition, Unobtainable due to mental status and Other (patient refused to answer ROS questions) Constitutional: Reports as per HPI Eyes: Reports as per HPI Reports as per HPI Cardiovascular: Reports as per HPI Respiratory: Reports as per HPI Gastrointestinal: Reports as per HPI Musculoskeletal: Reports as per HPI Skin/Breast: Reports as per HPI Reports as per HPI Psychiatric: Reports as per HPI Endocrine: Reports as per HPI Hematologic/Lymphatic: Reports as per HPI Allergic/Immunologic: Reports as per HPI Mental Status Exam Mental Status Exam Narrative: Appearance: casual attire, unkempt hair, grooming otherwise adequate, poor hygiene Behavior: calm, keeping to self, minimal eye contact, engagement limited by vision and hearing difficulties Orientation: alert, oriented to idea that she is in the hospital, year, month not date nor situation Psychomotor Function: no agitation or slowing; no abnormal gestures or movements Speech: normal rate/rhythm/volume, spontaneous Mood: tired Affect: Blunted Thought Process: concrete, self dialogue Thought Content: On treatment Hallucinations: Denies but self dialogues Delusions: not expressed Insight: Impaired Judgment: Impaired Impulsivity: none noted Diagnostics Vital Signs (24Hr): Vital Signs - 24 hr 05/25/25 20:00 05/26/25 08:00 Temperature 97.6 F 97.7 F Pulse Rate 79 67 Respiratory Rate 20 16 Blood Pressure 129/68 131/72 Pulse Oximetry 97 94 Oxygen Delivery Method Room Air Room Air BMI result Body Mass Index 37.7 Labs 03/29/25 08:55 05/22/25 18:29 Imaging Radiology Impressions: ITS Impressions Head CT 03/05/25 15:51 IMPRESSION: 1. No acute intracranial abnormality. 2. Right-sided cochlear nerve implant with associated streak artifact. 3. Right-sided canal wall up mastoidectomy. Electronically signed by: Levi Greer MD 03/05/2025 04:25 PM EDT RP Lumbar Puncture Fluoroscopy 03/09/25 11:50 IMPRESSION: Successful fluoroscopy-guided lumbar puncture performed without immediate complications Electronically signed by: Thompson Andujar MD 03/09/2025 04:06 PM EDT RP Chest CT 03/11/25 11:52 IMPRESSION: 1. Multiple bilateral pulmonary nodules measuring up to 10 mm in size. Further evaluation should be based on Fleischner Society guidelines below. 2. Cardiomegaly. Findings consistent with pulmonary arterial hypertension. 3. No evidence of mediastinal or hilar lymphadenopathy. Fleischner Criteria for pulmonary nodule follow-up SOLID NODULES: Low risk patient: <6mm: no follow-up 6-8mm: 6 month follow-up CT >8mm: PET/Biopsy/ 3 month follow-up CT High risk patient: <6mm: 12 month follow-up CT 6-8mm: 6 month follow-up CT >8mm: PET/Biopsy/ 3 month follow-up CT SUB-SOLID/GROUNDGLASS NODULES: All patients: > or = 6mm: 6 month follow-up CT *Please note that in patients in the following categories, the Fleischner criteria do not apply: Immunocompromised, lung cancer screening population, age below 35, and patients with known malignancy Electronically signed by: Best Clemons MD 03/11/2025 01:45 PM EDT RP Head CTA 03/11/25 11:52 IMPRESSION: Head CT: No acute intracranial abnormality. CT angiogram of the head: No vascular occlusions. Electronically signed by: Gypsy Salamanca MD 03/11/2025 03:02 PM EDT RP Chest CT 04/24/25 09:58 IMPRESSION: 1. Majority of the previously seen pulmonary nodules have resolved, and were consistent with infectious or inflammatory etiology. 2. There is a persistent 9 mm nodular focus in the lateral right upper lobe, which is felt to represent scarring given the appearance. To be cautious, a 3 month interval follow-up CT is recommended to ensure stability. 3. There is mild to moderate paraseptal emphysema. There is no acute pneumonic consolidation. 4. There is thickening of the small airways suggesting bronchitis. 5. There is moderate cardiac enlargement. Enlarged main pulmonary artery is consistent with pulmonary arterial hypertension. Electronically signed by: Levi Greer MD 04/24/2025 10:56 AM EDT RP Medications Medications Current Medications Acetaminophen (Acetaminophen 325 Mg Tablet) 650 mg PO Q6H PRN PRN Reason: Headache/Pain, Scale 1-10 Last Admin: 05/23/25 09:16 Dose: 650 mg Al Hydroxide/Mg Hydroxide (Magnesium Hydrox/Alum Hydrox 30 Ml Oral.Susp) 30 ml PO Q6H PRN PRN Reason: Heartburn/Nausea Albuterol Sulfate (Albuterol Sulfate 90 Mcg 8 Gm Inhaler) 2 puff INHALE Q4H PRN PRN Reason: Shortness Of Breath Or Wheezing Last Admin: 05/24/25 14:11 Dose: 2 puff Atorvastatin Calcium (Atorvastatin Calcium 40 Mg Tablet) 40 mg PO DAILY ON LICENSE OF [facility] Last Admin: 05/25/25 08:37 Dose: 40 mg Clonazepam (Clonazepam Odt 0.5 Mg Tab.Rapdis) 0.5 mg PO BID PRN PRN Reason: severe anxiety/sleep Last Admin: 05/10/25 05:31 Dose: 0.5 mg Clozapine (Clozapine 100 Mg Tablet) 200 mg PO BEDTIME ALLY Last Admin: 05/25/25 20:19 Dose: 200 mg Fluphenazine HCl (Fluphenazine Hcl 2.5 Mg/Ml 10 Ml Vial) 2.5 mg IM BID PRN PRN Reason: give if refuses oral per HCP Last Admin: 03/05/25 09:42 Dose: 2.5 mg Fluphenazine HCl (Fluphenazine Hcl 2.5 Mg Tablet) 2.5 mg PO BID ALLY Last Admin: 05/25/25 20:20 Dose: 2.5 mg Fluticasone/Vilanterol (Fluticasone/Vilanterol 200/25 Blst.W.Dev) 1 puff INHALE DAILY ON LICENSE OF [facility] Last Admin: 05/25/25 08:35 Dose: 1 puff Glycopyrrolate (Glycopyrrolate 1 Mg Tablet) 0.5 mg PO BID ON LICENSE OF [facility] Last Admin: 05/25/25 20:19 Dose: 0.5 mg Hydrochlorothiazide (Hydrochlorothiazide 25 Mg Tablet) 25 mg PO DAILY ON LICENSE OF [facility] Last Admin: 05/25/25 08:37 Dose: 25 mg Levetiracetam (Levetiracetam Oral Soln 500 Mg/5 Ml) 250 mg PO BID ON LICENSE OF [facility] Last Admin: 05/25/25 20:18 Dose: 250 mg Magnesium Hydroxide (Milk Of Magnesia 30 Ml Oral.Susp) 30 ml PO DAILY PRN PRN Reason: Constipation Metformin HCl (Metformin Hcl 500 Mg Tablet) 500 mg PO DAILY ON LICENSE OF [facility] Last Admin: 05/25/25 08:37 Dose: 500 mg Methimazole (Methimazole 5 Mg Tablet) 5 mg PO DAILY ON LICENSE OF [facility] Last Admin: 05/25/25 08:37 Dose: 5 mg Naloxone HCl (Naloxone Hcl 0.4 Mg/Ml Vial) 0.04 mg IVPUSH Q5M PRN PRN Reason: Excessive sedation or RR < 8 Nifedipine (Nifedipine Er 30 Mg Tab.Er.24) 30 mg PO DAILY ON LICENSE OF [facility]; Protocol Last Admin: 05/25/25 08:37 Dose: 30 mg Olanzapine (Olanzapine 10 Mg Tablet) 10 mg PO Q6H PRN PRN Reason: severe agitation Last Admin: 04/16/25 16:28 Dose: 10 mg Prednisone (Prednisone 10 Mg Tablet) 30 mg PO DAILY ON LICENSE OF [facility] Stop: 06/02/25 08:59 Tiotropium [place] (Tiotropium [place] 2.5 Mcg 1 Puff/2.5 Mcg Mist.Inhal) 1 puff INHALE DAILY ON LICENSE OF [facility] Last Admin: 05/25/25 08:35 Dose: 1 puff Trazodone HCl (Trazodone Hcl 50 Mg Tablet) 50 mg PO BEDTIME MRX1 PRN PRN Reason: Insomnia Last Admin: 04/04/25 23:21 Dose: 50 mg Allergies Allergies Allergy/AdvReac Type Severity Reaction Status Date / Time latex Allergy Unknown Verified 03/09/25 11:50 peanut Allergy Unknown Verified 03/09/25 11:50 Penicillins Allergy Unknown Verified 03/09/25 11:50 Assessment & Plan Assessment & Plan (1) Psychosis: Status: Acute Code(s): F29 - Unspecified psychosis not due to a substance or known physiological condition Assessment and Plan: r/o autoimmune reasons for psychosis including lupus. 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 Sharif is a 69 year-old woman who presents with a 3 month hx of new onset of psychosis (AH) and combination of paranoid delusions and cap gras delusions. No prior psychiatric hx. She does have of cocaine use but apparently had not used in some years. Daughter suspects she may have relapsed but no ongoing use. Pt presents with more complex theme of delusions. No additional medical work up available including head CT. CBC and cmp unremarkable. 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 It may be related to dementia process but complexity of delusions and psychosis not the common presentation for dementia that have psychosis early on such as in vascular dementia or LBD. Pt presents as gravely disable to able to care for self due to symptoms of psychosis and delusions. 02/03 increase night time risperidone 2mg po qhs increase cogetin at bedtime to 1mg po qhs. lower daily dose to 0.5mg po daily. continue cogentin 0.5mg po daily. clonazepam as prn olanzapine as prn for agitation 02/04 continue tx. 02/05 continue tx. 02/06 continue current dose of risperidone. NOTE THAT pt can't take doses higher than 3 mg/day of risperidone as higher doses had severe EPS. can use olanzapine as well per court order. 02/07/25: Patient has been agitated yelling loudly exist seeking, delusional thinking her daughter/son outside at the door to pick her up. PRNs given in the morning with mild effect. Patient became agitated, aggressive\, assaultive to 1 of the staff on the floor, yelling and hitting her face so grabbing her neck. Physical was started at 16:31 to 1634. Patient was given IM medication of Zyprexa 10 and Valium 10 with good effect. Tomorrow plan: Patient will be benefit from Valium 10 mg twice a day and Zyprexa 5 mg 3 times a day is added into her scheduled medication as current plan with risperidone is not effective. Patient also having a backup for risperidone if she refused. 02/08/25: Slept most of the morning and last night. In better behavior control. No aggressive behavior. She is quiet, self dialogue, and medication compliant. Due to receive restrain medication yesterday. I did not make any medication change. But the Valium and additional Zyprexa appears to be helpful. 02/09 will try to change keppra to depakote for seizures as keppra may exacerbate psychosis. increase risperidone 1mg po daily and 2mg po qhs. may need to add second antipsychotic. 02/10 continues to present as paranoid with AH. at times declines oral medications, requiring IM back per court order. 02/11 continue tx. 02/12 continue tx. 02/13 continue tx. 02/14: no changes today. Monitor for agitation around confusion about hospitalization 02/15: no changes today, self dialogue more overt/extensive today 02/16 add olanzapine 5mg po qhs. continue risperidone. minimal improvement if any. 02/17 continue tx. 02/18 seems more somnolent with bedtime olanzapine, will continue to monitor. 02/19 cbc showed thrombocytopenia, which is new and suspect related to depakote 02/20 pt appears more sedated since addition of olanzapine at bedtime. She continues to self dialogue. minimal improvement. 02/21: Continue current management and treatment plan. 02/22: continue current management and treatment plan. 02/23 continue tx. may need to affirm HCP try different antipsychotic. 02/24 continue tx. results of LENORE 1:360, pattern homogenous A. 02/25 will try rexulti, lower risperidone. pending coordination of medical care to see if underlying autoimmune condition has anything to do with current presentation. 02/26 discussed with hospital litigation attorney to dismiss sect 8, HCP invoked and can consent to other treatment. daughter Maricruz give permission to try different antipsychotic. 02/27 decrease risperidone to 1mg po daily, start prolixin 2.5mg po qhs, then increase to BID. continue olanzapine prn for agitation. olanzapine as well per court order. 03/03 pt seen by neurology, added HIV/RPR/LYME, can't have MRI due to cochlear implant. 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 Last Neurology appointment 01/2024. Missed appointment with rheumatology 05/2024, last seen in 02/26/2024. - Pt can't have MRI due to cochlear implant. Had head CT. - continue prolixin 2.5mg po daily, 5mg po qhs. will d/c risperidone, increase prolixin 5mg po BID, back up IM. 03/05 continue tx. 03/06 This administrative underwriter spoke with pt's rough planer tender, Dr. Al obtained collateral information. Will coordinate with neurology and rheumatology once LP results are available. r/o reoccurance of pachymeningitis, lupus or other autoimmune cause for psychosis. 03/07: Continue current regimen and plans. Discontinued one-to-one and put in place 5 minute checks 03/08: Continue current plans and regimen 03/09 continue tx. 03/10: continue current mgmt. continues disorganized and psychotic. see neuro note from today. continue with neuro w/u. 03/11: given zyprexa 5 and valium [address] and head CTA. head CTA WNL, chest CT showed numerous pulmonary nodules up to 10 mm in size. no change in presentation. due to persistent requests for discharge, 3-day notice submitted on her behalf. will work toward HCP affirmation by the court. 03/12: per pulm consult, chest CT more c/w rheumatological process than CA, recommended empiric steroid course. awaiting input from neuro. consider Bx of nodules otherwise. continue current mgmt for now. 03/13: variably calm and agitated. planning for bronchoscopy with pulmonary nodule Bx on sunday. continue current mgmt. case discussed with HCP Maricruz (daughter), who is in agreement with plan. 03/14: CSF with notable findings. will f/u with neuro on sunday. stable presentation for now, remains quite psychotic. continue current mgmt. bronchoscopy sunday. 03/15: no change from yesterday in presentation or plan. 03/16: stable presentation. continues confused, wanting to go home. HCP affirmation tomorrow. continue current mgmt. 03/17: stable presdentation. bronchoscopy pending. continue current mgmt. 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 awaiting bronchoscopy. remains psychotic. continue current mgmt for now. 03/20: no change in presentation. still awaiting go-ahead for brochoscopy. continue current mgmt. 03/22: No changes. Noted above. 03/23: awaiting insurance approval for bronchoscopy. stable presentation. 03/24: as for yesterday. 03/25: loudly RIS in milieu today. bronchoscopy scheduled for sunday at 1130. NPO past MN night. stable presentation. continue current mgmt. 03/26 pt presents as more disorganized and inattentive than usual showing more signs of delirious behavior. bronchoscopy was canceled,due to shortage of needles to complete biopsy. will order cbc, cmp, ammonia levels given increase disorganized behavior and worsening attention pointing at a more delirious presentation. * Review of results from LP showing negative results for meningitis panel/paraneoplastic panel (including most common antibody found in SLC which is EARL 1 which was negative), elevated protein in CSF 131 without leukocytosis, also elevated CSF/serum IgG index. elevated anti-ds dna titer 1:80. Such results may point more to a rheumatological condition than infectious condition or malignancy. Mrs. Sharif's OP rough planer tender, Dr. Al recommends trial of prednisone 40mg po daily at least for 2 weeks. 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 03/31 increase prolixin to 5mg po BID. continue all other medications including prednisone 40mg po daily. 9/3 discussed with her OP rough planer tender, Dr. Al possibility of transferring to [facility] for further tx of autoimmune condition, suspected also having lupus. continue prednisone. Spoke with daughter who is HCP, daughter concern about pt going to [facility] due to being dismissed several times when pt was first brought psychotic. 04/02 continue tx 04/03 increase prolixin to 5mg po TID. monitor EPS. 04/06 continue tx. 04/07- pending response from [facility] to see if they will take her for further evaluation of autoimmune condition with multidisciplinary team to continue see if psychosis related to autoimmune or primarily psychosis. Some improvement in attention, less guarded. continues to have auditory hallucinations. May consider switch to clozapine given that she has tried 3 antipsychotics with limited efficacy. 04/08 start clozapine 25mg po qhs. continue prolixin 7.5mg po TID. 04/09 increase clozapine to 50mg po qhs. continue prolixin 7.5mg po TID. 04/10 decrease prolixin to 7.5mg po BID. increase clozapine to 75mg po qhs. continue increasing clozapine by 25mg/day. motion picture camera operator, recommends repeat CT in 2 weeks, and hold on bronchoscopy. 04/11: no change today, will titrate Clozapine further tomorrow 04/12: titrate Clozapine to 100 mg QHS 04/13 increase clozapine to 125mg po qhs. continue prolixin 7.5mg po BID. 04/14 Provided update to daughter Maricruz who is HCP in terms of pt being treated for both autoimmune condition that may be contributing to psychosis (with prednione) as well as primarily psychiatric disorder (although less likely) with clozapine. some improvement in attention, slightly less paranoid but continues to present with ongoing AH of her daughter. 04/15 continue tx. 04/16 continue tx. 04/17 start glycopyrralate for drooling, decrease cogentin. 04/17 increase clozapine 150mg po qhs, lower prolixin 2.5mg po BID. back up. 04/18: Continue current management and treatment plan. 04/19: continue current management and treatment plan. 04/20 increase clozapine to 175mg po qhs. 04/21 continue tx. 04/22 continue tx. 04/23 continue tx. will check clozapine levels. 04/[address] followed up done today- much less nodules seen. 04/27 no change in presentation, less paranoid towards staff but ongoing AH. Impaired awareness of surroundings and conversations mostly base on delusional content. Will consult as well with her OP Coffee Sampler as to whether continue prednisone as initially recommended by rheumatology for suspected lupus, although it has had additional benefits in lung nodules. 04/28 increase clozapine 200mg po qhs. 04/[address] showed improvement in her pulmonary nodules and absence of pulmonary symptoms otherwise. recommendation to taper off prednisone slowly with repeat of chest CT in 3 months for stability of reminder of nodules. her OP rough planer tender did want to continue prednisone for suspected lupus, may discuss further with rheumatology if they want to continue prednisone or stop it. 04/30 continue tx. 05/01 continue tx. will check clozapine level on 05/04/2505/05 continue tx. pending clozapine levels. 05/06 continue tx. 05/07 continue tx. 05/08 continue tx. 05/09 through 05/11 no change in presentation; continue treatment plan 05/12/25: No change, slept through the night. Medication compliant. Ambulate using walker, walker next to table in dining area where patient sits. Visible in common area but not attended groups. Calm, pleasant and cooperative. No notable side effects from medication. Feeling safe here I want to be home but the weather does not allow me to go home . Last BM was yesterday. Communicate with staff via written form. 05/13/25: Visible, eating and sleeping well. Medication compliant, no side effects. Denies safety concerns, denies voices. however, she is responded to internal stimuli, self dialogues at times. No behavior issues. Pending Clozaril level. 05/14/25: Patient visible, calm, pleasant and cooperative. Medication compliant, some drooling while napping in bed. Passing gas, had BM yesterday. Report feeling tired but denies depression/anxiety. She self dialogue quietly, appear responding to internal stimuli. No behavior issues. No sleeping or appetite problems. Patient observed at some point this afternoon do some coloring art work at the table. Patient was assessed by PT team, report patient is at baseline, using walker. No further assessment needed. Potential will get the bed at [facility]. 05/15/25: Visible, slept well, no appetite issues, compliant with medications. However, patient has not shower often yesterday, per nursing patient believes there was a man in her room therefore she refused to shower yesterday. She states that she will shower later on today when staff is available to help. Reports pain on her back, legs, and joint. She good like to do some coloring after lunch. Per nursing patient has raised her voice asking for tramadol a couple of times a day for pain. Appears responding to internal stimuli, but no major issues. Clazapine 313. Norclozapine 81 Therapeutic. 05/16/25: Patient slept well, no issue with appetite, compliant with medications. Calm, pleasant and cooperative. No behavior issues. Ambulate using a walker. Patient told other peers who on the table in dining area that she talks to herself and out loud because bug in her ear. Patient appeared responding to internal stimuli at baseline. 05/17/25: No issue with sleep or appetite, compliant with medications, visible in common areas at times, mostly required but self dialogue and responding to internal stimuli at times in a quiet way. Patient asked for toilet tree to shower and brush her teeth. Given Tylenol for mild pain with good effect. 05/18/25: Patient is visible in common areas, appear to be tired and sleepy at lunch at the table in dining area. Report she feels ok today, slept well and has no issues with appetite. She asks if she can get a coffee with creamer and sugar after encounter. Report gerenral pain on the back and says I need Tylenol or tramadol . Self report last BM was yesterday. Report I have bug in my ear and feeling down , and I talk to my daughter, my fiance and other peoole when asked who she usually talks to. No behavior issues. Ambulating using walker. Wait for placement. Continue with current tx plan. 05/19/25: Per note: [facility] has accepted patient for admission. Submitted PASRR level I and she will need Level II screen . Updated daughter ( affirmed HCP) and once PASRR is completed patient will transfer. Daughter expressed happiness regarding outcome and the fact that patient will be closer to them in [place]. Estimated date of discharge is within 1-2 weeks LT care bed has not opened at this time, but liaision stated it she would follow. Patient slept well, no issues with sleep, appetite, or medication compliant. She thinks she is leaving tomorrow morning. She appears bright up whenever this provider approaches her. Report she feels good and thanks for checking on her. Last BM is this morning. Continue with current tx plan. Waiting for placement. 05/20/25: Patient slept through the night, visible, self dialogue in common areas, appear tired but brighten up when approach. Report mood is good. Denies anxiety or depression. She believes she should be leaving this morning but the Uber was canceled d/t the weather . Report feeling safe. Ask for coffee and two crackers at the end of encounter when asked if she has any questions. Also discuss with patient regarding weight gain. She says that she has salad and will reduce sugar in her coffee. Will send soil chemist consult to talk to patient regarding healthier choices to prevent too much weight gain. 05/21: Continue current treatment regimen. Plan to discharge next week. 05/22/25: Patient slept 8 hours, compliant with meds. Informed that Metformin will add on today to help with weight control. Patient states that she will take no meds. However, when nurse offered Metformin, patient took it without any issues. Patient request crackers which nursing asked patient to not having it as lunch will be here in 20-30 min. Patient was irritable regarding not given snack she asked for. Patient responded to internal stimuli, reported that she is taking to my siblings when she was out in dinning room talking to someone who are not there. Potential to be discharged next week with [facility]. Metformin 500mg daily in the AM for weight control. 05/23: continue current management and treatment plan. 05/24: continue current management and treatment plan. 05/25/25: Patient slept for 8 hours, compliant with meds. Nursing report that patient has been trying to not putting too much sugar in her coffee as she has been educated for healthy choices to prevent too much weight gain. Report she feels pretty good but a little tired d/t the weather and there are a lot of things in my mind . Napping after lunch in bed. She says that she wants to go home but somewhat feeling safe here at well. Report that I want to go home but when I get home, I do not make right choice . Report that I am going through a lot. I am trying to handle it and put things in God's hand . Denies voices. Very police and cooperative. Sitting up from lying down during 1-1 assessment showing her cooperative as usual. Seen by [employer] this morning to assess if necessary to continue on Prednisone. Per [employer], will start taper down prednisone down 10mg every 10 days. Prednisone 30mg daily down from 40mg. Will continue with taper. ANC WNL. 05/26/25: Patient reports sleeping well with good appetite. Observed snacking after lunch in dinning area. Mood is good but feel tired and cannot complaint , denies hallucinations but observed responded and talking someone who are not there next to her. However, no behavior issues. She does not know current month/day but does know current year and [facility] that she is at. Report small BM today. Patient educated on: diagnosis, medication risk/benefits and therapeutic strategies Informed Consent: further education needed Reason for continued inpatient stay Substantial Risk for: med/psych decompensation Time Spent With Patient Time: Total time managing care of this patient today ____ minutes.
[2025-05-26] MEDS: levETIRAcetam Oral Soln 500 MG/5 ML 250 MG PO ×2 (10:25→19:52)
[2025-05-26] MEDS: Albuterol Sulfate 90 MCG 8 GM INHALER 2 PUFF INHALE (10:26)
[2025-05-26] MEDS: NIFEdipine ER 30 MG TAB.ER.24 PO (10:26)
[2025-05-26] MEDS: Tiotropium Bromide 2.5 mcg 1 PUFF/2.5 MCG MIST.INHAL INHALE (10:27)
[2025-05-26] MEDS: Fluticasone/Vilanterol 200/25 BLST.W.DEV 1 PUFF INHALE (10:28)
[2025-05-26 19:49] VITALS: BP 101/52; PULSE 71; RESP 16; TEMP 36.2; O2SAT 94
[2025-05-27 08:00] VITALS: BP 138/77; PULSE 75; RESP 14; TEMP 36.6; O2SAT 93
[2025-05-27] MEDS: NIFEdipine ER 30 MG TAB.ER.24 PO (08:40)
[2025-05-27] MEDS: levETIRAcetam Oral Soln 500 MG/5 ML 250 MG PO ×2 (08:41→20:56)
[2025-05-27] MEDS: Fluticasone/Vilanterol 200/25 BLST.W.DEV 1 PUFF INHALE (08:44)
[2025-05-27] MEDS: Tiotropium Bromide 2.5 mcg 1 PUFF/2.5 MCG MIST.INHAL INHALE (08:44)
--- NOTE | 2025-05-27 12:44 | P.PNPSI_ITS ---
Subjective Subjective Date of Service: 05/27/25 Reason For Visit: Abnormal CT chest Subjective Notes: Section 8 Interim History: Patient found sitting in the day room socializing with peers. She states that she feels fine She notes that I am just tired because of the weather. She denies depression or anxiety. She denies SI/HI/AVH. Communication facilitated by writing for patient to read and respond. Per nursing, she continues to self dialogue, and slept 8 hours last night. Medication Compliance: Yes Side effects from medications: No Review of Systems Acute medical concerns: No Mental Status Exam Mental Status Exam Narrative: Appearance: casual attire, unkempt hair, grooming otherwise adequate, poor hygiene Behavior: calm, keeping to self, minimal eye contact, engagement limited by vision and hearing difficulties Orientation: alert, oriented to idea that she is in the hospital, year, month not date nor situation Psychomotor Function: no agitation or slowing; no abnormal gestures or movements Speech: normal rate/rhythm/volume, spontaneous Mood: tired Affect: Blunted Thought Process: concrete, self dialogue Thought Content: On treatment Hallucinations: Denies but self dialogues Delusions: not expressed Insight: Impaired Judgment: Impaired Impulsivity: none noted Diagnostics Vital Signs (24Hr): Vital Signs - 24 hr 05/26/25 19:49 05/27/25 08:00 Temperature 97.1 F 97.8 F Pulse Rate 71 75 Respiratory Rate 16 14 Blood Pressure 101/52 L 138/77 Pulse Oximetry 94 93 Oxygen Delivery Method Room Air BMI result Body Mass Index 37.7 Labs 03/29/25 08:55 05/22/25 18:29 Imaging Radiology Impressions: ITS Impressions Head CT 03/05/25 15:51 IMPRESSION: 1. No acute intracranial abnormality. 2. Right-sided cochlear nerve implant with associated streak artifact. 3. Right-sided canal wall up mastoidectomy. Electronically signed by: Levi Greer MD 03/05/2025 04:25 PM EDT RP Lumbar Puncture Fluoroscopy 03/09/25 11:50 IMPRESSION: Successful fluoroscopy-guided lumbar puncture performed without immediate complications Electronically signed by: Thompson Andujar MD 03/09/2025 04:06 PM EDT RP Chest CT 03/11/25 11:52 IMPRESSION: 1. Multiple bilateral pulmonary nodules measuring up to 10 mm in size. Further evaluation should be based on Fleischner Society guidelines below. 2. Cardiomegaly. Findings consistent with pulmonary arterial hypertension. 3. No evidence of mediastinal or hilar lymphadenopathy. Fleischner Criteria for pulmonary nodule follow-up SOLID NODULES: Low risk patient: <6mm: no follow-up 6-8mm: 6 month follow-up CT >8mm: PET/Biopsy/ 3 month follow-up CT High risk patient: <6mm: 12 month follow-up CT 6-8mm: 6 month follow-up CT >8mm: PET/Biopsy/ 3 month follow-up CT SUB-SOLID/GROUNDGLASS NODULES: All patients: > or = 6mm: 6 month follow-up CT *Please note that in patients in the following categories, the Fleischner criteria do not apply: Immunocompromised, lung cancer screening population, age below 35, and patients with known malignancy Electronically signed by: Best Clemons MD 03/11/2025 01:45 PM EDT RP Head CTA 03/11/25 11:52 IMPRESSION: Head CT: No acute intracranial abnormality. CT angiogram of the head: No vascular occlusions. Electronically signed by: Gypsy Salamanca MD 03/11/2025 03:02 PM EDT RP Chest CT 04/24/25 09:58 IMPRESSION: 1. Majority of the previously seen pulmonary nodules have resolved, and were consistent with infectious or inflammatory etiology. 2. There is a persistent 9 mm nodular focus in the lateral right upper lobe, which is felt to represent scarring given the appearance. To be cautious, a 3 month interval follow-up CT is recommended to ensure stability. 3. There is mild to moderate paraseptal emphysema. There is no acute pneumonic consolidation. 4. There is thickening of the small airways suggesting bronchitis. 5. There is moderate cardiac enlargement. Enlarged main pulmonary artery is consistent with pulmonary arterial hypertension. Electronically signed by: Levi Greer MD 04/24/2025 10:56 AM EDT RP Medications Medications Current Medications Acetaminophen (Acetaminophen 325 Mg Tablet) 650 mg PO Q6H PRN PRN Reason: Headache/Pain, Scale 1-10 Last Admin: 05/23/25 09:16 Dose: 650 mg Al Hydroxide/Mg Hydroxide (Magnesium Hydrox/Alum Hydrox 30 Ml Oral.Susp) 30 ml PO Q6H PRN PRN Reason: Heartburn/Nausea Albuterol Sulfate (Albuterol Sulfate 90 Mcg 8 Gm Inhaler) 2 puff INHALE Q4H PRN PRN Reason: Shortness Of Breath Or Wheezing Last Admin: 05/26/25 10:26 Dose: 2 puff Atorvastatin Calcium (Atorvastatin Calcium 40 Mg Tablet) 40 mg PO DAILY [facility] Last Admin: 05/27/25 08:40 Dose: 40 mg Clonazepam (Clonazepam Odt 0.5 Mg Tab.Rapdis) 0.5 mg PO BID PRN PRN Reason: severe anxiety/sleep Last Admin: 05/10/25 05:31 Dose: 0.5 mg Clozapine (Clozapine 100 Mg Tablet) 200 mg PO BEDTIME [facility] Last Admin: 05/26/25 19:52 Dose: 200 mg Fluphenazine HCl (Fluphenazine Hcl 2.5 Mg/Ml 10 Ml Vial) 2.5 mg IM BID PRN PRN Reason: give if refuses oral per HCP Last Admin: 03/05/25 09:42 Dose: 2.5 mg Fluphenazine HCl (Fluphenazine Hcl 2.5 Mg Tablet) 2.5 mg PO BID [facility] Last Admin: 05/27/25 08:41 Dose: 2.5 mg Fluticasone/Vilanterol (Fluticasone/Vilanterol 200/25 Blst.W.Dev) 1 puff INHALE DAILY [facility] Last Admin: 05/27/25 08:44 Dose: 1 puff Glycopyrrolate (Glycopyrrolate 1 Mg Tablet) 0.5 mg PO BID [facility] Last Admin: 05/27/25 08:39 Dose: 0.5 mg Hydrochlorothiazide (Hydrochlorothiazide 25 Mg Tablet) 25 mg PO DAILY [facility] Last Admin: 05/27/25 08:39 Dose: 25 mg Levetiracetam (Levetiracetam Oral Soln 500 Mg/5 Ml) 250 mg PO BID [facility] Last Admin: 05/27/25 08:41 Dose: 250 mg Magnesium Hydroxide (Milk Of Magnesia 30 Ml Oral.Susp) 30 ml PO DAILY PRN PRN Reason: Constipation Metformin HCl (Metformin Hcl 500 Mg Tablet) 500 mg PO DAILY [facility] Last Admin: 05/27/25 08:41 Dose: 500 mg Methimazole (Methimazole 5 Mg Tablet) 5 mg PO DAILY [facility] Last Admin: 05/27/25 08:39 Dose: 5 mg Naloxone HCl (Naloxone Hcl 0.4 Mg/Ml Vial) 0.04 mg IVPUSH Q5M PRN PRN Reason: Excessive sedation or RR < 8 Nifedipine (Nifedipine Er 30 Mg Tab.Er.24) 30 mg PO DAILY [facility]; Protocol Last Admin: 05/27/25 08:40 Dose: 30 mg Olanzapine (Olanzapine 10 Mg Tablet) 10 mg PO Q6H PRN PRN Reason: severe agitation Last Admin: 04/16/25 16:28 Dose: 10 mg Prednisone (Prednisone 10 Mg Tablet) 30 mg PO DAILY [facility] Stop: 06/02/25 08:59 Last Admin: 05/27/25 08:39 Dose: 30 mg Tiotropium [place] (Tiotropium [place] 2.5 Mcg 1 Puff/2.5 Mcg Mist.Inhal) 1 puff INHALE DAILY [facility] Last Admin: 05/27/25 08:44 Dose: 1 puff Trazodone HCl (Trazodone Hcl 50 Mg Tablet) 50 mg PO BEDTIME MRX1 PRN PRN Reason: Insomnia Last Admin: 04/04/25 23:21 Dose: 50 mg Allergies Allergies Allergy/AdvReac Type Severity Reaction Status Date / Time latex Allergy Unknown Verified 03/09/25 11:50 peanut Allergy Unknown Verified 03/09/25 11:50 Penicillins Allergy Unknown Verified 03/09/25 11:50 Assessment & Plan Assessment & Plan (1) Psychosis: Status: Acute Code(s): F29 - Unspecified psychosis not due to a substance or known physiological condition Assessment and Plan: r/o autoimmune reasons for psychosis including lupus. 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 Sharif is a 69 year-old woman who presents with a 3 month hx of new onset of psychosis (AH) and combination of paranoid delusions and cap gras delusions. No prior psychiatric hx. She does have of cocaine use but apparently had not used in some years. Daughter suspects she may have relapsed but no ongoing use. Pt presents with more complex theme of delusions. No additional medical work up available including head CT. CBC and cmp unremarkable. 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 It may be related to dementia process but complexity of delusions and psychosis not the common presentation for dementia that have psychosis early on such as in vascular dementia or LBD. Pt presents as gravely disable to able to care for self due to symptoms of psychosis and delusions. 02/03 increase night time risperidone 2mg po qhs increase cogetin at bedtime to 1mg po qhs. lower daily dose to 0.5mg po daily. continue cogentin 0.5mg po daily. clonazepam as prn olanzapine as prn for agitation 02/04 continue tx. 02/05 continue tx. 02/06 continue current dose of risperidone. NOTE THAT pt can't take doses higher than 3 mg/day of risperidone as higher doses had severe EPS. can use olanzapine as well per court order. 02/07/25: Patient has been agitated yelling loudly exist seeking, delusional thinking her daughter/son outside at the door to pick her up. PRNs given in the morning with mild effect. Patient became agitated, aggressive\, assaultive to 1 of the staff on the floor, yelling and hitting her face so grabbing her neck. Physical was started at 16:31 to 1634. Patient was given IM medication of Zyprexa 10 and Valium 10 with good effect. Tomorrow plan: Patient will be benefit from Valium 10 mg twice a day and Zyprexa 5 mg 3 times a day is added into her scheduled medication as current plan with risperidone is not effective. Patient also having a backup for risperidone if she refused. 02/08/25: Slept most of the morning and last night. In better behavior control. No aggressive behavior. She is quiet, self dialogue, and medication compliant. Due to receive restrain medication yesterday. I did not make any medication change. But the Valium and additional Zyprexa appears to be helpful. 02/09 will try to change keppra to depakote for seizures as keppra may exacerbate psychosis. increase risperidone 1mg po daily and 2mg po qhs. may need to add second antipsychotic. 02/10 continues to present as paranoid with AH. at times declines oral medications, requiring IM back per court order. 02/11 continue tx. 02/12 continue tx. 02/13 continue tx. 02/14: no changes today. Monitor for agitation around confusion about hospitalization 02/15: no changes today, self dialogue more overt/extensive today 02/16 add olanzapine 5mg po qhs. continue risperidone. minimal improvement if any. 02/17 continue tx. 02/18 seems more somnolent with bedtime olanzapine, will continue to monitor. 02/19 cbc showed thrombocytopenia, which is new and suspect related to depakote 02/20 pt appears more sedated since addition of olanzapine at bedtime. She continues to self dialogue. minimal improvement. 02/21: Continue current management and treatment plan. 02/22: continue current management and treatment plan. 02/23 continue tx. may need to affirm HCP try different antipsychotic. 02/24 continue tx. results of LENORE 1:360, pattern homogenous A. 02/25 will try rexulti, lower risperidone. pending coordination of medical care to see if underlying autoimmune condition has anything to do with current presentation. 02/26 discussed with hospital cold roller to dismiss sect 8, HCP invoked and can consent to other treatment. daughter Maricruz give permission to try different antipsychotic. 02/27 decrease risperidone to 1mg po daily, start prolixin 2.5mg po qhs, then increase to BID. continue olanzapine prn for agitation. olanzapine as well per court order. 03/03 pt seen by neurology, added HIV/RPR/LYME, can't have MRI due to cochlear implant. 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 Last Neurology appointment 01/2024. Missed appointment with rheumatology 05/2024, last seen in 02/26/2024. - Pt can't have MRI due to cochlear implant. Had head CT. - continue prolixin 2.5mg po daily, 5mg po qhs. will d/c risperidone, increase prolixin 5mg po BID, back up IM. 03/05 continue tx. 03/06 This filing writer spoke with pt's special ed assistant, Dr. Al obtained collateral information. Will coordinate with neurology and rheumatology once LP results are available. r/o reoccurance of pachymeningitis, lupus or other autoimmune cause for psychosis. 03/07: Continue current regimen and plans. Discontinued one-to-one and put in place 5 minute checks 03/08: Continue current plans and regimen 03/09 continue tx. 03/10: continue current mgmt. continues disorganized and psychotic. see neuro note from today. continue with neuro w/u. 03/11: given zyprexa 5 and valium [address] and head CTA. head CTA WNL, chest CT showed numerous pulmonary nodules up to 10 mm in size. no change in presentation. due to persistent requests for discharge, 3-day notice submitted on her behalf. will work toward HCP affirmation by the court. 03/12: per pulm consult, chest CT more c/w rheumatological process than CA, recommended empiric steroid course. awaiting input from neuro. consider Bx of nodules otherwise. continue current mgmt for now. 03/13: variably calm and agitated. planning for bronchoscopy with pulmonary nodule Bx on sunday. continue current mgmt. case discussed with HCP Maricruz (daughter), who is in agreement with plan. 03/14: CSF with notable findings. will f/u with neuro on sunday. stable presentation for now, remains quite psychotic. continue current mgmt. bronchoscopy sunday. 03/15: no change from yesterday in presentation or plan. 03/16: stable presentation. continues confused, wanting to go home. HCP affirmation tomorrow. continue current mgmt. 03/17: stable presdentation. bronchoscopy pending. continue current mgmt. 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 awaiting bronchoscopy. remains psychotic. continue current mgmt for now. 03/20: no change in presentation. still awaiting go-ahead for brochoscopy. continue current mgmt. 03/22: No changes. Noted above. 03/23: awaiting insurance approval for bronchoscopy. stable presentation. 03/24: as for yesterday. 03/25: loudly RIS in milieu today. bronchoscopy scheduled for sunday at 1130. NPO past MN night. stable presentation. continue current mgmt. 03/26 pt presents as more disorganized and inattentive than usual showing more signs of delirious behavior. bronchoscopy was canceled,due to shortage of needles to complete biopsy. will order cbc, cmp, ammonia levels given increase disorganized behavior and worsening attention pointing at a more delirious presentation. * Review of results from LP showing negative results for meningitis panel/paraneoplastic panel (including most common antibody found in SLC which is EARL 1 which was negative), elevated protein in CSF 131 without leukocytosis, also elevated CSF/serum IgG index. elevated anti-ds dna titer 1:80. Such results may point more to a rheumatological condition than infectious condition or malignancy. Mrs. Sharif's OP special ed assistant, Dr. Al recommends trial of prednisone 40mg po daily at least for 2 weeks. 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 03/31 increase prolixin to 5mg po BID. continue all other medications including prednisone 40mg po daily. 04/01 discussed with her OP special ed assistant, Dr. Al possibility of transferring to [facility] for further tx of autoimmune condition, suspected also having lupus. continue prednisone. Spoke with daughter who is HCP, daughter concern about pt going to [facility] due to being dismissed several times when pt was first brought psychotic. 04/02 continue tx 04/03 increase prolixin to 5mg po TID. monitor EPS. 04/06 continue tx. 04/07- pending response from [facility] to see if they will take her for further evaluation of autoimmune condition with multidisciplinary team to continue see if psychosis related to autoimmune or primarily psychosis. Some improvement in attention, less guarded. continues to have auditory hallucinations. May consider switch to clozapine given that she has tried 3 antipsychotics with limited efficacy. 04/08 start clozapine 25mg po qhs. continue prolixin 7.5mg po TID. 04/09 increase clozapine to 50mg po qhs. continue prolixin 7.5mg po TID. 04/10 decrease prolixin to 7.5mg po BID. increase clozapine to 75mg po qhs. continue increasing clozapine by 25mg/day. newspaper carriers supervisor, recommends repeat CT in 2 weeks, and hold on bronchoscopy. 04/11: no change today, will titrate Clozapine further tomorrow 04/12: titrate Clozapine to 100 mg QHS 04/13 increase clozapine to 125mg po qhs. continue prolixin 7.5mg po BID. 04/14 Provided update to daughter Maricruz who is HCP in terms of pt being treated for both autoimmune condition that may be contributing to psychosis (with prednione) as well as primarily psychiatric disorder (although less likely) with clozapine. some improvement in attention, slightly less paranoid but continues to present with ongoing AH of her daughter. 04/15 continue tx. 04/16 continue tx. 04/17 start glycopyrralate for drooling, decrease cogentin. 04/17 increase clozapine 150mg po qhs, lower prolixin 2.5mg po BID. back up. 04/18: Continue current management and treatment plan. 04/19: continue current management and treatment plan. 04/20 increase clozapine to 175mg po qhs. 04/21 continue tx. 04/22 continue tx. 04/23 continue tx. will check clozapine levels. 04/[address] followed up done today- much less nodules seen. 04/27 no change in presentation, less paranoid towards staff but ongoing AH. Impaired awareness of surroundings and conversations mostly base on delusional content. Will consult as well with her OP Control Manager as to whether continue prednisone as initially recommended by rheumatology for suspected lupus, although it has had additional benefits in lung nodules. 04/28 increase clozapine 200mg po qhs. 04/[address] showed improvement in her pulmonary nodules and absence of pulmonary symptoms otherwise. recommendation to taper off prednisone slowly with repeat of chest CT in 3 months for stability of reminder of nodules. her OP special ed assistant did want to continue prednisone for suspected lupus, may discuss further with rheumatology if they want to continue prednisone or stop it. 04/30 continue tx. 05/01 continue tx. will check clozapine level on 05/04/2505/05 continue tx. pending clozapine levels. 05/06 continue tx. 05/07 continue tx. 05/08 continue tx. 05/09 through 05/11 no change in presentation; continue treatment plan 05/12/25: No change, slept through the night. Medication compliant. Ambulate using walker, walker next to table in dining area where patient sits. Visible in common area but not attended groups. Calm, pleasant and cooperative. No notable side effects from medication. Feeling safe here I want to be home but the weather does not allow me to go home . Last BM was yesterday. Communicate with staff via written form. 05/13/25: Visible, eating and sleeping well. Medication compliant, no side effects. Denies safety concerns, denies voices. however, she is responded to internal stimuli, self dialogues at times. No behavior issues. Pending Clozaril level. 05/14/25: Patient visible, calm, pleasant and cooperative. Medication compliant, some drooling while napping in bed. Passing gas, had BM yesterday. Report feeling tired but denies depression/anxiety. She self dialogue quietly, appear responding to internal stimuli. No behavior issues. No sleeping or appetite problems. Patient observed at some point this afternoon do some coloring art work at the table. Patient was assessed by PT team, report patient is at baseline, using walker. No further assessment needed. Potential will get the bed at [facility]. 05/15/25: Visible, slept well, no appetite issues, compliant with medications. However, patient has not shower often yesterday, per nursing patient believes there was a man in her room therefore she refused to shower yesterday. She states that she will shower later on today when staff is available to help. Reports pain on her back, legs, and joint. She good like to do some coloring after lunch. Per nursing patient has raised her voice asking for tramadol a couple of times a day for pain. Appears responding to internal stimuli, but no major issues. Clazapine 313. Norclozapine 81 Therapeutic. 05/16/25: Patient slept well, no issue with appetite, compliant with medications. Calm, pleasant and cooperative. No behavior issues. Ambulate using a walker. Patient told other peers who on the table in dining area that she talks to herself and out loud because bug in her ear. Patient appeared responding to internal stimuli at baseline. 05/17/25: No issue with sleep or appetite, compliant with medications, visible in common areas at times, mostly required but self dialogue and responding to internal stimuli at times in a quiet way. Patient asked for toilet tree to shower and brush her teeth. Given Tylenol for mild pain with good effect. 05/18/25: Patient is visible in common areas, appear to be tired and sleepy at lunch at the table in dining area. Report she feels ok today, slept well and has no issues with appetite. She asks if she can get a coffee with creamer and sugar after encounter. Report gerenral pain on the back and says I need Tylenol or tramadol . Self report last BM was yesterday. Report I have bug in my ear and feeling down , and I talk to my daughter, my fiance and other peoole when asked who she usually talks to. No behavior issues. Ambulating using walker. Wait for placement. Continue with current tx plan. 05/19/25: Per note: [facility] has accepted patient for admission. Submitted PASRR level I and she will need Level II screen . Updated daughter ( affirmed HCP) and once PASRR is completed patient will transfer. Daughter expressed happiness regarding outcome and the fact that patient will be closer to them in [place]. Estimated date of discharge is within 1-2 weeks LT care bed has not opened at this time, but liaision stated it she would follow. Patient slept well, no issues with sleep, appetite, or medication compliant. She thinks she is leaving tomorrow morning. She appears bright up whenever this provider approaches her. Report she feels good and thanks for checking on her. Last BM is this morning. Continue with current tx plan. Waiting for placement. 05/20/25: Patient slept through the night, visible, self dialogue in common areas, appear tired but brighten up when approach. Report mood is good. Denies anxiety or depression. She believes she should be leaving this morning but the Uber was canceled d/t the weather . Report feeling safe. Ask for coffee and two crackers at the end of encounter when asked if she has any questions. Also discuss with patient regarding weight gain. She says that she has salad and will reduce sugar in her coffee. Will send director of speech pathology consult to talk to patient regarding healthier choices to prevent too much weight gain. 05/21: Continue current treatment regimen. Plan to discharge next week. 05/22/25: Patient slept 8 hours, compliant with meds. Informed that Metformin will add on today to help with weight control. Patient states that she will take no meds. However, when nurse offered Metformin, patient took it without any issues. Patient request crackers which nursing asked patient to not having it as lunch will be here in 20-30 min. Patient was irritable regarding not given snack she asked for. Patient responded to internal stimuli, reported that she is taking to my siblings when she was out in dinning room talking to someone who are not there. Potential to be discharged next week with [facility], Grayson Roland. Metformin 500mg daily in the AM for weight control. 05/23: continue current management and treatment plan. 05/24: continue current management and treatment plan. 05/25/25: Patient slept for 8 hours, compliant with meds. Nursing report that patient has been trying to not putting too much sugar in her coffee as she has been educated for healthy choices to prevent too much weight gain. Report she feels pretty good but a little tired d/t the weather and there are a lot of things in my mind . Napping after lunch in bed. She says that she wants to go home but somewhat feeling safe here at well. Report that I want to go home but when I get home, I do not make right choice . Report that I am going through a lot. I am trying to handle it and put things in God's hand . Denies voices. Very police and cooperative. Sitting up from lying down during 1-1 assessment showing her cooperative as usual. Seen by Baker Paint this morning to assess if necessary to continue on Prednisone. Per Baker Paint, will start taper down prednisone down 10mg every 10 days. Prednisone 30mg daily down from 40mg. Will continue with taper. ANC WNL. 05/26/25: Patient reports sleeping well with good appetite. Observed snacking after lunch in dinning area. Mood is good but feel tired and cannot complaint , denies hallucinations but observed responded and talking someone who are not there next to her. However, no behavior issues. She does not know current month/day but does know current year and [facility] that she is at. Report small BM today. 05/27: Patients appears in no acute distress. Continue current treatment. Patient educated on: therapeutic strategies Reason for continued inpatient stay Substantial Risk for: rapid decompensation Time Spent With Patient Time: Total time managing care of this patient today ____ minutes.
[2025-05-27 20:00] VITALS: BP 136/66; PULSE 67; RESP 16; TEMP 36.1; O2SAT 96
[2025-05-28 08:13] VITALS: BP 106/63; PULSE 81; RESP 17; TEMP 36.5; O2SAT 96
[2025-05-28] MEDS: levETIRAcetam Oral Soln 500 MG/5 ML 250 MG PO ×2 (09:13→19:44)
[2025-05-28] MEDS: Tiotropium Bromide 2.5 mcg 1 PUFF/2.5 MCG MIST.INHAL INHALE (09:17)
[2025-05-28] MEDS: Fluticasone/Vilanterol 200/25 BLST.W.DEV 1 PUFF INHALE (09:18)
[2025-05-28 09:20] VITALS: BP 124/58; PULSE 75
[2025-05-28] MEDS: NIFEdipine ER 30 MG TAB.ER.24 PO (09:21)
[2025-05-28 11:11] LABS: Neut%MD 58.2 %; WBCANC 8.0 X10*3/uL
[2025-05-28 12:01] VITALS: BMI 35.0
--- NOTE | 2025-05-28 16:05 | HO.PSYCHPN ---
Subjective Subjective Date of Service: 05/28/25 Reason For Visit: Abnormal CT chest Subjective Notes: Section 8 Interim History: Patient found sitting in the day room sitting alone, self dialoguing. She states that she feels fine. She reports adequate sleep. She denies depression or anxiety. She denies SI/HI/AVH. Communication facilitated by writing in large texts for patient to read and respond. Medication Compliance: Yes Side effects from medications: No Review of Systems Acute medical concerns: No Mental Status Exam Mental Status Exam Narrative: Appearance: casual attire, unkempt hair, grooming otherwise adequate, poor hygiene Behavior: calm, keeping to self, minimal eye contact, engagement limited by vision and hearing difficulties Orientation: alert, oriented to idea that she is in the hospital, year, month not date nor situation Psychomotor Function: no agitation or slowing; no abnormal gestures or movements Speech: normal rate/rhythm/volume, spontaneous Mood: Fine Affect: Blunted Thought Process: concrete, self dialogue Thought Content: On treatment Hallucinations: Denies but self dialogues Delusions: not expressed Insight: Impaired Judgment: Impaired Impulsivity: none noted Diagnostics Vital Signs (24Hr): Vital Signs - 24 hr 05/27/25 20:00 05/28/25 08:13 05/28/25 09:20 Temperature 97 F 97.7 F Pulse Rate 67 81 75 Respiratory Rate 16 17 Blood Pressure 136/66 106/63 124/58 L Pulse Oximetry 96 96 Oxygen Delivery Method Room Air Room Air BMI result Body Mass Index 35.0 Labs 03/29/25 08:55 05/22/25 18:29 Labs: Laboratory Results - last 48 hr 05/28/25 10:57 Absolute Neuts (auto) 4.7 Imaging Radiology Impressions: ITS Impressions Head CT 03/05/25 15:51 IMPRESSION: 1. No acute intracranial abnormality. 2. Right-sided cochlear nerve implant with associated streak artifact. 3. Right-sided canal wall up mastoidectomy. Electronically signed by: Levi Greer MD 03/05/2025 04:25 PM EDT RP Lumbar Puncture Fluoroscopy 03/09/25 11:50 IMPRESSION: Successful fluoroscopy-guided lumbar puncture performed without immediate complications Electronically signed by: Thompson Andujar MD 03/09/2025 04:06 PM EDT RP Chest CT 03/11/25 11:52 IMPRESSION: 1. Multiple bilateral pulmonary nodules measuring up to 10 mm in size. Further evaluation should be based on Fleischner Society guidelines below. 2. Cardiomegaly. Findings consistent with pulmonary arterial hypertension. 3. No evidence of mediastinal or hilar lymphadenopathy. Fleischner Criteria for pulmonary nodule follow-up SOLID NODULES: Low risk patient: <6mm: no follow-up 6-8mm: 6 month follow-up CT >8mm: PET/Biopsy/ 3 month follow-up CT High risk patient: <6mm: 12 month follow-up CT 6-8mm: 6 month follow-up CT >8mm: PET/Biopsy/ 3 month follow-up CT SUB-SOLID/GROUNDGLASS NODULES: All patients: > or = 6mm: 6 month follow-up CT *Please note that in patients in the following categories, the Fleischner criteria do not apply: Immunocompromised, lung cancer screening population, age below 35, and patients with known malignancy Electronically signed by: Best Clemons MD 03/11/2025 01:45 PM EDT RP Head CTA 03/11/25 11:52 IMPRESSION: Head CT: No acute intracranial abnormality. CT angiogram of the head: No vascular occlusions. Electronically signed by: Gypsy Salamanca MD 03/11/2025 03:02 PM EDT RP Chest CT 04/24/25 09:58 IMPRESSION: 1. Majority of the previously seen pulmonary nodules have resolved, and were consistent with infectious or inflammatory etiology. 2. There is a persistent 9 mm nodular focus in the lateral right upper lobe, which is felt to represent scarring given the appearance. To be cautious, a 3 month interval follow-up CT is recommended to ensure stability. 3. There is mild to moderate paraseptal emphysema. There is no acute pneumonic consolidation. 4. There is thickening of the small airways suggesting bronchitis. 5. There is moderate cardiac enlargement. Enlarged main pulmonary artery is consistent with pulmonary arterial hypertension. Electronically signed by: Levi Greer MD 04/24/2025 10:56 AM EDT RP Medications Medications Current Medications Acetaminophen (Acetaminophen 325 Mg Tablet) 650 mg PO Q6H PRN PRN Reason: Headache/Pain, Scale 1-10 Last Admin: 05/28/25 09:13 Dose: 650 mg Al Hydroxide/Mg Hydroxide (Magnesium Hydrox/Alum Hydrox 30 Ml Oral.Susp) 30 ml PO Q6H PRN PRN Reason: Heartburn/Nausea Albuterol Sulfate (Albuterol Sulfate 90 Mcg 8 Gm Inhaler) 2 puff INHALE Q4H PRN PRN Reason: Shortness Of Breath Or Wheezing Last Admin: 05/26/25 10:26 Dose: 2 puff Atorvastatin Calcium (Atorvastatin Calcium 40 Mg Tablet) 40 mg PO DAILY [facility] Last Admin: 05/28/25 09:16 Dose: 40 mg Clonazepam (Clonazepam Odt 0.5 Mg Tab.Rapdis) 0.5 mg PO BID PRN PRN Reason: severe anxiety/sleep Last Admin: 05/10/25 05:31 Dose: 0.5 mg Clozapine (Clozapine 100 Mg Tablet) 200 mg PO BEDTIME [facility] Last Admin: 05/27/25 20:56 Dose: 200 mg Fluphenazine HCl (Fluphenazine Hcl 2.5 Mg/Ml 10 Ml Vial) 2.5 mg IM BID PRN PRN Reason: give if refuses oral per HCP Last Admin: 03/05/25 09:42 Dose: 2.5 mg Fluphenazine HCl (Fluphenazine Hcl 2.5 Mg Tablet) 2.5 mg PO BID [facility] Last Admin: 05/28/25 09:16 Dose: 2.5 mg Fluticasone/Vilanterol (Fluticasone/Vilanterol 200/25 Blst.W.Dev) 1 puff INHALE DAILY [facility] Last Admin: 05/28/25 09:18 Dose: 1 puff Glycopyrrolate (Glycopyrrolate 1 Mg Tablet) 0.5 mg PO BID [facility] Last Admin: 05/28/25 09:14 Dose: 0.5 mg Hydrochlorothiazide (Hydrochlorothiazide 25 Mg Tablet) 25 mg PO DAILY [facility] Last Admin: 05/28/25 09:21 Dose: 25 mg Levetiracetam (Levetiracetam Oral Soln 500 Mg/5 Ml) 250 mg PO BID [facility] Last Admin: 05/28/25 09:13 Dose: 250 mg Magnesium Hydroxide (Milk Of Magnesia 30 Ml Oral.Susp) 30 ml PO DAILY PRN PRN Reason: Constipation Metformin HCl (Metformin Hcl 500 Mg Tablet) 500 mg PO DAILY [facility] Last Admin: 05/28/25 09:16 Dose: 500 mg Methimazole (Methimazole 5 Mg Tablet) 5 mg PO DAILY [facility] Last Admin: 05/28/25 09:15 Dose: 5 mg Naloxone HCl (Naloxone Hcl 0.4 Mg/Ml Vial) 0.04 mg IVPUSH Q5M PRN PRN Reason: Excessive sedation or RR < 8 Nifedipine (Nifedipine Er 30 Mg Tab.Er.24) 30 mg PO DAILY [facility]; Protocol Last Admin: 05/28/25 09:21 Dose: 30 mg Olanzapine (Olanzapine 10 Mg Tablet) 10 mg PO Q6H PRN PRN Reason: severe agitation Last Admin: 04/16/25 16:28 Dose: 10 mg Prednisone (Prednisone 10 Mg Tablet) 30 mg PO DAILY [facility] Stop: 06/02/25 08:59 Last Admin: 05/28/25 09:15 Dose: 30 mg Tiotropium [place] (Tiotropium [place] 2.5 Mcg 1 Puff/2.5 Mcg Mist.Inhal) 1 puff INHALE DAILY [facility] Last Admin: 05/28/25 09:17 Dose: 1 puff Trazodone HCl (Trazodone Hcl 50 Mg Tablet) 50 mg PO BEDTIME MRX1 PRN PRN Reason: Insomnia Last Admin: 04/04/25 23:21 Dose: 50 mg Allergies Allergies Allergy/AdvReac Type Severity Reaction Status Date / Time latex Allergy Unknown Verified 03/09/25 11:50 peanut Allergy Unknown Verified 03/09/25 11:50 Penicillins Allergy Unknown Verified 03/09/25 11:50 Assessment & Plan Assessment & Plan (1) Psychosis: Status: Acute Code(s): F29 - Unspecified psychosis not due to a substance or known physiological condition Assessment and Plan: r/o autoimmune reasons for psychosis including lupus. 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 Sharif is a 69 year-old woman who presents with a 3 month hx of new onset of psychosis (AH) and combination of paranoid delusions and cap gras delusions. No prior psychiatric hx. She does have of cocaine use but apparently had not used in some years. Daughter suspects she may have relapsed but no ongoing use. Pt presents with more complex theme of delusions. No additional medical work up available including head CT. CBC and cmp unremarkable. 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 It may be related to dementia process but complexity of delusions and psychosis not the common presentation for dementia that have psychosis early on such as in vascular dementia or LBD. Pt presents as gravely disable to able to care for self due to symptoms of psychosis and delusions. 02/03 increase night time risperidone 2mg po qhs increase cogetin at bedtime to 1mg po qhs. lower daily dose to 0.5mg po daily. continue cogentin 0.5mg po daily. clonazepam as prn olanzapine as prn for agitation 02/04 continue tx. 02/05 continue tx. 02/06 continue current dose of risperidone. NOTE THAT pt can't take doses higher than 3 mg/day of risperidone as higher doses had severe EPS. can use olanzapine as well per court order. 02/07/25: Patient has been agitated yelling loudly exist seeking, delusional thinking her daughter/son outside at the door to pick her up. PRNs given in the morning with mild effect. Patient became agitated, aggressive\, assaultive to 1 of the staff on the floor, yelling and hitting her face so grabbing her neck. Physical was started at 16:31 to 1634. Patient was given IM medication of Zyprexa 10 and Valium 10 with good effect. Tomorrow plan: Patient will be benefit from Valium 10 mg twice a day and Zyprexa 5 mg 3 times a day is added into her scheduled medication as current plan with risperidone is not effective. Patient also having a backup for risperidone if she refused. 02/08/25: Slept most of the morning and last night. In better behavior control. No aggressive behavior. She is quiet, self dialogue, and medication compliant. Due to receive restrain medication yesterday. I did not make any medication change. But the Valium and additional Zyprexa appears to be helpful. 02/09 will try to change keppra to depakote for seizures as keppra may exacerbate psychosis. increase risperidone 1mg po daily and 2mg po qhs. may need to add second antipsychotic. 02/10 continues to present as paranoid with AH. at times declines oral medications, requiring IM back per court order. 02/11 continue tx. 02/12 continue tx. 02/13 continue tx. 02/14: no changes today. Monitor for agitation around confusion about hospitalization 02/15: no changes today, self dialogue more overt/extensive today 02/16 add olanzapine 5mg po qhs. continue risperidone. minimal improvement if any. 02/17 continue tx. 02/18 seems more somnolent with bedtime olanzapine, will continue to monitor. 02/19 cbc showed thrombocytopenia, which is new and suspect related to depakote 02/20 pt appears more sedated since addition of olanzapine at bedtime. She continues to self dialogue. minimal improvement. 02/21: Continue current management and treatment plan. 02/22: continue current management and treatment plan. 02/23 continue tx. may need to affirm HCP try different antipsychotic. 02/24 continue tx. results of LENORE 1:360, pattern homogenous A. 02/25 will try rexulti, lower risperidone. pending coordination of medical care to see if underlying autoimmune condition has anything to do with current presentation. 02/26 discussed with hospital district attorney to dismiss sect 8, HCP invoked and can consent to other treatment. daughter Maricruz give permission to try different antipsychotic. 02/27 decrease risperidone to 1mg po daily, start prolixin 2.5mg po qhs, then increase to BID. continue olanzapine prn for agitation. olanzapine as well per court order. 03/03 pt seen by neurology, added HIV/RPR/LYME, can't have MRI due to cochlear implant. 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 Last Neurology appointment 01/2024. Missed appointment with rheumatology 05/2024, last seen in 02/26/2024. - Pt can't have MRI due to cochlear implant. Had head CT. - continue prolixin 2.5mg po daily, 5mg po qhs. will d/c risperidone, increase prolixin 5mg po BID, back up IM. 03/05 continue tx. 03/06 This loan underwriter spoke with pt's executive chef assistant, Dr. Al obtained collateral information. Will coordinate with neurology and rheumatology once LP results are available. r/o reoccurance of pachymeningitis, lupus or other autoimmune cause for psychosis. 03/07: Continue current regimen and plans. Discontinued one-to-one and put in place 5 minute checks 03/08: Continue current plans and regimen 03/09 continue tx. 03/10: continue current mgmt. continues disorganized and psychotic. see neuro note from today. continue with neuro w/u. 03/11: given zyprexa 5 and valium [address] and head CTA. head CTA WNL, chest CT showed numerous pulmonary nodules up to 10 mm in size. no change in presentation. due to persistent requests for discharge, 3-day notice submitted on her behalf. will work toward HCP affirmation by the court. 03/12: per pulm consult, chest CT more c/w rheumatological process than CA, recommended empiric steroid course. awaiting input from neuro. consider Bx of nodules otherwise. continue current mgmt for now. 03/13: variably calm and agitated. planning for bronchoscopy with pulmonary nodule Bx on sunday. continue current mgmt. case discussed with HCP Maricruz (daughter), who is in agreement with plan. 03/14: CSF with notable findings. will f/u with neuro on sunday. stable presentation for now, remains quite psychotic. continue current mgmt. bronchoscopy sunday. 03/15: no change from yesterday in presentation or plan. 03/16: stable presentation. continues confused, wanting to go home. HCP affirmation tomorrow. continue current mgmt. 03/17: stable presdentation. bronchoscopy pending. continue current mgmt. 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 awaiting bronchoscopy. remains psychotic. continue current mgmt for now. 03/20: no change in presentation. still awaiting go-ahead for brochoscopy. continue current mgmt. 03/22: No changes. Noted above. 03/23: awaiting insurance approval for bronchoscopy. stable presentation. 03/24: as for yesterday. 03/25: loudly RIS in milieu today. bronchoscopy scheduled for sunday at 1130. NPO past MN night. stable presentation. continue current mgmt. 03/26 pt presents as more disorganized and inattentive than usual showing more signs of delirious behavior. bronchoscopy was canceled,due to shortage of needles to complete biopsy. will order cbc, cmp, ammonia levels given increase disorganized behavior and worsening attention pointing at a more delirious presentation. Review of results from LP showing negative results for meningitis panel/paraneoplastic panel (including most common antibody found in SLC which is EARL 1 which was negative), elevated protein in CSF 131 without leukocytosis, also elevated CSF/serum IgG index. elevated anti-ds dna titer 1:80. Such results may point more to a rheumatological condition than infectious condition or malignancy. Mrs. Sharif's OP executive chef assistant, Dr. Al recommends trial of prednisone 40mg po daily at least for 2 weeks. 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 03/31 increase prolixin to 5mg po BID. continue all other medications including prednisone 40mg po daily. 04/01 discussed with her OP executive chef assistant, Dr. Al possibility of transferring to [facility] for further tx of autoimmune condition, suspected also having lupus. continue prednisone. Spoke with daughter who is HCP, daughter concern about pt going to [facility] due to being dismissed several times when pt was first brought psychotic. 04/02 continue tx 04/03 increase prolixin to 5mg po TID. monitor EPS. 04/06 continue tx. 04/07- pending response from [facility] to see if they will take her for further evaluation of autoimmune condition with multidisciplinary team to continue see if psychosis related to autoimmune or primarily psychosis. Some improvement in attention, less guarded. continues to have auditory hallucinations. May consider switch to clozapine given that she has tried 3 antipsychotics with limited efficacy. 04/08 start clozapine 25mg po qhs. continue prolixin 7.5mg po TID. 04/09 increase clozapine to 50mg po qhs. continue prolixin 7.5mg po TID. 04/10 decrease prolixin to 7.5mg po BID. increase clozapine to 75mg po qhs. continue increasing clozapine by 25mg/day. front end software developer, recommends repeat CT in 2 weeks, and hold on bronchoscopy. 04/11: no change today, will titrate Clozapine further tomorrow 04/12: titrate Clozapine to 100 mg QHS 04/13 increase clozapine to 125mg po qhs. continue prolixin 7.5mg po BID. 04/14 Provided update to daughter Maricruz who is HCP in terms of pt being treated for both autoimmune condition that may be contributing to psychosis (with prednione) as well as primarily psychiatric disorder (although less likely) with clozapine. some improvement in attention, slightly less paranoid but continues to present with ongoing AH of her daughter. 04/15 continue tx. 04/16 continue tx. 04/17 start glycopyrralate for drooling, decrease cogentin. 04/17 increase clozapine 150mg po qhs, lower prolixin 2.5mg po BID. back up. 04/18: Continue current management and treatment plan. 04/19: continue current management and treatment plan. 04/20 increase clozapine to 175mg po qhs. 04/21 continue tx. 04/22 continue tx. 04/23 continue tx. will check clozapine levels. 04/[address] followed up done today- much less nodules seen. 04/27 no change in presentation, less paranoid towards staff but ongoing AH. Impaired awareness of surroundings and conversations mostly base on delusional content. Will consult as well with her OP Paraplanner as to whether continue prednisone as initially recommended by rheumatology for suspected lupus, although it has had additional benefits in lung nodules. 04/28 increase clozapine 200mg po qhs. 04/[address] showed improvement in her pulmonary nodules and absence of pulmonary symptoms otherwise. recommendation to taper off prednisone slowly with repeat of chest CT in 3 months for stability of reminder of nodules. her OP executive chef assistant did want to continue prednisone for suspected lupus, may discuss further with rheumatology if they want to continue prednisone or stop it. 04/30 continue tx. 05/01 continue tx. will check clozapine level on 05/04/2505/05 continue tx. pending clozapine levels. 05/06 continue tx. 05/07 continue tx. 05/08 continue tx. 05/09 through 05/11 no change in presentation; continue treatment plan 05/12/25: No change, slept through the night. Medication compliant. Ambulate using walker, walker next to table in dining area where patient sits. Visible in common area but not attended groups. Calm, pleasant and cooperative. No notable side effects from medication. Feeling safe here I want to be home but the weather does not allow me to go home . Last BM was yesterday. Communicate with staff via written form. 05/13/25: Visible, eating and sleeping well. Medication compliant, no side effects. Denies safety concerns, denies voices. however, she is responded to internal stimuli, self dialogues at times. No behavior issues. Pending Clozaril level. 05/14/25: Patient visible, calm, pleasant and cooperative. Medication compliant, some drooling while napping in bed. Passing gas, had BM yesterday. Report feeling tired but denies depression/anxiety. She self dialogue quietly, appear responding to internal stimuli. No behavior issues. No sleeping or appetite problems. Patient observed at some point this afternoon do some coloring art work at the table. Patient was assessed by PT team, report patient is at baseline, using walker. No further assessment needed. Potential will get the bed at [facility]. 05/15/25: Visible, slept well, no appetite issues, compliant with medications. However, patient has not shower often yesterday, per nursing patient believes there was a man in her room therefore she refused to shower yesterday. She states that she will shower later on today when staff is available to help. Reports pain on her back, legs, and joint. She good like to do some coloring after lunch. Per nursing patient has raised her voice asking for tramadol a couple of times a day for pain. Appears responding to internal stimuli, but no major issues. Clazapine 313. Norclozapine 81 Therapeutic. 05/16/25: Patient slept well, no issue with appetite, compliant with medications. Calm, pleasant and cooperative. No behavior issues. Ambulate using a walker. Patient told other peers who on the table in dining area that she talks to herself and out loud because bug in her ear. Patient appeared responding to internal stimuli at baseline. 05/17/25: No issue with sleep or appetite, compliant with medications, visible in common areas at times, mostly required but self dialogue and responding to internal stimuli at times in a quiet way. Patient asked for toilet tree to shower and brush her teeth. Given Tylenol for mild pain with good effect. 05/18/25: Patient is visible in common areas, appear to be tired and sleepy at lunch at the table in dining area. Report she feels ok today, slept well and has no issues with appetite. She asks if she can get a coffee with creamer and sugar after encounter. Report gerenral pain on the back and says I need Tylenol or tramadol . Self report last BM was yesterday. Report I have bug in my ear and feeling down , and I talk to my daughter, my fiance and other peoole when asked who she usually talks to. No behavior issues. Ambulating using walker. Wait for placement. Continue with current tx plan. 05/19/25: Per note: [facility] has accepted patient for admission. Submitted PASRR level I and she will need Level II screen . Updated daughter ( affirmed HCP) and once PASRR is completed patient will transfer. Daughter expressed happiness regarding outcome and the fact that patient will be closer to them in [place]. Estimated date of discharge is within 1-2 weeks LT care bed has not opened at this time, but liaision stated it she would follow. Patient slept well, no issues with sleep, appetite, or medication compliant. She thinks she is leaving tomorrow morning. She appears bright up whenever this provider approaches her. Report she feels good and thanks for checking on her. Last BM is this morning. Continue with current tx plan. Waiting for placement. 05/20/25: Patient slept through the night, visible, self dialogue in common areas, appear tired but brighten up when approach. Report mood is good. Denies anxiety or depression. She believes she should be leaving this morning but the Uber was canceled d/t the weather . Report feeling safe. Ask for coffee and two crackers at the end of encounter when asked if she has any questions. Also discuss with patient regarding weight gain. She says that she has salad and will reduce sugar in her coffee. Will send head cager consult to talk to patient regarding healthier choices to prevent too much weight gain. 05/21: Continue current treatment regimen. Plan to discharge next week. 05/22/25: Patient slept 8 hours, compliant with meds. Informed that Metformin will add on today to help with weight control. Patient states that she will take no meds. However, when nurse offered Metformin, patient took it without any issues. Patient request crackers which nursing asked patient to not having it as lunch will be here in 20-30 min. Patient was irritable regarding not given snack she asked for. Patient responded to internal stimuli, reported that she is taking to my siblings when she was out in dinning room talking to someone who are not there. Potential to be discharged next week with Advocate, Grayson Roland. Metformin 500mg daily in the AM for weight control. 05/23: continue current management and treatment plan. 05/24: continue current management and treatment plan. 05/25/25: Patient slept for 8 hours, compliant with meds. Nursing report that patient has been trying to not putting too much sugar in her coffee as she has been educated for healthy choices to prevent too much weight gain. Report she feels pretty good but a little tired d/t the weather and there are a lot of things in my mind . Napping after lunch in bed. She says that she wants to go home but somewhat feeling safe here at well. Report that I want to go home but when I get home, I do not make right choice . Report that I am going through a lot. I am trying to handle it and put things in God's hand . Denies voices. Very police and cooperative. Sitting up from lying down during 1-1 assessment showing her cooperative as usual. Seen by Management Developer this morning to assess if necessary to continue on Prednisone. Per Management Developer, will start taper down prednisone down 10mg every 10 days. Prednisone 30mg daily down from 40mg. Will continue with taper. ANC WNL. 05/26/25: Patient reports sleeping well with good appetite. Observed snacking after lunch in dinning area. Mood is good but feel tired and cannot complaint , denies hallucinations but observed responded and talking someone who are not there next to her. However, no behavior issues. She does not know current month/day but does know current year and [facility] that she is at. Report small BM today. 05/27: Patients appears in no acute distress. Continue current treatment. 05/28: Patients appears in no acute distress. Continue current treatment. Patient educated on: therapeutic strategies Reason for continued inpatient stay Substantial Risk for: rapid decompensation Time Spent With Patient Time: Total time managing care of this patient today ____ minutes.
[2025-05-28 19:38] VITALS: BP 141/76; PULSE 82; RESP 18; TEMP 3; TEMP 37.4; O2SAT 99
[2025-05-29 08:03] VITALS: BP 129/62; PULSE 79; RESP 18; TEMP 36.6; O2SAT 97
[2025-05-29] MEDS: Tiotropium Bromide 2.5 mcg 1 PUFF/2.5 MCG MIST.INHAL INHALE (08:08)
[2025-05-29] MEDS: levETIRAcetam Oral Soln 500 MG/5 ML 250 MG PO ×2 (08:09→20:42)
[2025-05-29] MEDS: NIFEdipine ER 30 MG TAB.ER.24 PO (08:14)
[2025-05-29] MEDS: Fluticasone/Vilanterol 200/25 BLST.W.DEV 1 PUFF INHALE (08:16)
--- NOTE | 2025-05-29 09:39 | P.PNPSI_ITS ---
Subjective Subjective Date of Service: 05/29/25 Reason For Visit: Abnormal CT chest Subjective Notes: Section 8 Healthcare Proxy: Yes Guardianship: Yes Medical Problems Affecting Mental Status: No Interim History: Medical record and nursing notes reviewed; case discussed during rounds with team/nursing staff, and met with patient for supportive therapy/psychoeducation, as well as medication management. Patient slept well, eat well, visible in common area in dining/activity area most of this morning. Observed doing some coloring, self dialoguing as usual at baseline. Last BM was yesterday with soft stool per patient report. Plan to shower today prior to discharge. Compliant with meds, no side effects- drooling only observed while sleeping. Patient has been informed that she is discharged tomorrow by 1100 by different discipline. The team working to get patient ready for tomorrow discharge. Will work in complete discharge summary so SW can fax to [facility] [place] [facility]. Per SW, does not need to send medication to pharmacy unless it is controlled ones which patient is not prescribed upon discharge. Per nursing, patient slept for 7 hours. Medication Compliance: Yes Side effects from medications: No (control drooling with meds. ) Attending Groups: No Review of Systems Acute medical concerns: No Medical Review of Systems: unchanged Review of Systems Review of Systems Constitutional: Denies fatigue and Denies fever(s) Cardiovascular: Denies chest pain and Denies dyspnea Respiratory: Denies dyspnea Gastrointestinal: Denies abdominal pain Psychiatric: denies suicidal ideation Endocrine: Denies fatigue a little tired. Yes all other systems are reviewed and are negative, Unobtainable due to mental condition, Unobtainable due to mental status and Other (patient refused to answer ROS questions) Constitutional: Reports as per HPI Eyes: Reports as per HPI Reports as per HPI Cardiovascular: Reports as per HPI Respiratory: Reports as per HPI Gastrointestinal: Reports as per HPI Musculoskeletal: Reports as per HPI Skin/Breast: Reports as per HPI Reports as per HPI Psychiatric: Reports as per HPI Endocrine: Reports as per HPI Hematologic/Lymphatic: Reports as per HPI Allergic/Immunologic: Reports as per HPI Mental Status Exam Mental Status Exam Narrative: Appearance: casual attire, unkempt hair, grooming otherwise adequate, poor hygiene Behavior: calm, keeping to self, minimal eye contact, engagement limited by vision and hearing difficulties Orientation: alert, oriented to idea that she is in the hospital, year, month not date nor situation Psychomotor Function: no agitation or slowing; no abnormal gestures or movements Speech: normal rate/rhythm/volume, spontaneous Mood: good but a little tired Affect: Blunted/flat Thought Process: concrete, self dialogue Thought Content: On treatment Hallucinations: Denies but self dialogues at baseline. Delusions: Thinks there is a black ellen walking on the unit the past couple of days. Insight: Impaired Judgment: Impaired Impulsivity: none noted Diagnostics Vital Signs (24Hr): Vital Signs - 24 hr 05/28/25 19:38 05/29/25 08:03 Temperature 37.4 F L 97.9 F Pulse Rate 82 79 Respiratory Rate 18 18 Blood Pressure 141/76 H 129/62 Pulse Oximetry 99 97 Oxygen Delivery Method Room Air Room Air BMI result Body Mass Index 35.0 Labs 03/29/25 08:55 05/22/25 18:29 Labs: Laboratory Results - last 48 hr 05/28/25 10:57 Absolute Neuts (auto) 4.7 Imaging Radiology Impressions: ITS Impressions Head CT 03/05/25 15:51 IMPRESSION: 1. No acute intracranial abnormality. 2. Right-sided cochlear nerve implant with associated streak artifact. 3. Right-sided canal wall up mastoidectomy. Electronically signed by: Levi Greer MD 03/05/2025 04:25 PM EDT RP Lumbar Puncture Fluoroscopy 03/09/25 11:50 IMPRESSION: Successful fluoroscopy-guided lumbar puncture performed without immediate complications Electronically signed by: Thompson Andujar MD 03/09/2025 04:06 PM EDT RP Chest CT 03/11/25 11:52 IMPRESSION: 1. Multiple bilateral pulmonary nodules measuring up to 10 mm in size. Further evaluation should be based on Fleischner Society guidelines below. 2. Cardiomegaly. Findings consistent with pulmonary arterial hypertension. 3. No evidence of mediastinal or hilar lymphadenopathy. Fleischner Criteria for pulmonary nodule follow-up SOLID NODULES: Low risk patient: <6mm: no follow-up 6-8mm: 6 month follow-up CT >8mm: PET/Biopsy/ 3 month follow-up CT High risk patient: <6mm: 12 month follow-up CT 6-8mm: 6 month follow-up CT >8mm: PET/Biopsy/ 3 month follow-up CT SUB-SOLID/GROUNDGLASS NODULES: All patients: > or = 6mm: 6 month follow-up CT *Please note that in patients in the following categories, the Fleischner criteria do not apply: Immunocompromised, lung cancer screening population, age below 35, and patients with known malignancy Electronically signed by: Best Clemons MD 03/11/2025 01:45 PM EDT RP Head CTA 03/11/25 11:52 IMPRESSION: Head CT: No acute intracranial abnormality. CT angiogram of the head: No vascular occlusions. Electronically signed by: Gypsy Salamanca MD 03/11/2025 03:02 PM EDT RP Chest CT 04/24/25 09:58 IMPRESSION: 1. Majority of the previously seen pulmonary nodules have resolved, and were consistent with infectious or inflammatory etiology. 2. There is a persistent 9 mm nodular focus in the lateral right upper lobe, which is felt to represent scarring given the appearance. To be cautious, a 3 month interval follow-up CT is recommended to ensure stability. 3. There is mild to moderate paraseptal emphysema. There is no acute pneumonic consolidation. 4. There is thickening of the small airways suggesting bronchitis. 5. There is moderate cardiac enlargement. Enlarged main pulmonary artery is consistent with pulmonary arterial hypertension. Electronically signed by: Levi Greer MD 04/24/2025 10:56 AM EDT RP Medications Medications Current Medications Acetaminophen (Acetaminophen 325 Mg Tablet) 650 mg PO Q6H PRN PRN Reason: Headache/Pain, Scale 1-10 Last Admin: 05/28/25 09:13 Dose: 650 mg Al Hydroxide/Mg Hydroxide (Magnesium Hydrox/Alum Hydrox 30 Ml Oral.Susp) 30 ml PO Q6H PRN PRN Reason: Heartburn/Nausea Albuterol Sulfate (Albuterol Sulfate 90 Mcg 8 Gm Inhaler) 2 puff INHALE Q4H PRN PRN Reason: Shortness Of Breath Or Wheezing Last Admin: 05/26/25 10:26 Dose: 2 puff Atorvastatin Calcium (Atorvastatin Calcium 40 Mg Tablet) 40 mg PO DAILY ALLY Last Admin: 05/29/25 08:14 Dose: 40 mg Clonazepam (Clonazepam Odt 0.5 Mg Tab.Rapdis) 0.5 mg PO BID PRN PRN Reason: severe anxiety/sleep Last Admin: 05/10/25 05:31 Dose: 0.5 mg Clozapine (Clozapine 100 Mg Tablet) 200 mg PO BEDTIME [facility] Last Admin: 05/28/25 19:43 Dose: 200 mg Fluphenazine HCl (Fluphenazine Hcl 2.5 Mg/Ml 10 Ml Vial) 2.5 mg IM BID PRN PRN Reason: give if refuses oral per HCP Last Admin: 03/05/25 09:42 Dose: 2.5 mg Fluphenazine HCl (Fluphenazine Hcl 2.5 Mg Tablet) 2.5 mg PO BID [facility] Last Admin: 05/29/25 08:14 Dose: 2.5 mg Fluticasone/Vilanterol (Fluticasone/Vilanterol 200/25 Blst.W.Dev) 1 puff INHALE DAILY [facility] Last Admin: 05/29/25 08:16 Dose: 1 puff Glycopyrrolate (Glycopyrrolate 1 Mg Tablet) 0.5 mg PO BID [facility] Last Admin: 05/29/25 08:11 Dose: 0.5 mg Hydrochlorothiazide (Hydrochlorothiazide 25 Mg Tablet) 25 mg PO DAILY [facility] Last Admin: 05/29/25 08:14 Dose: 25 mg Levetiracetam (Levetiracetam Oral Soln 500 Mg/5 Ml) 250 mg PO BID [facility] Last Admin: 05/29/25 08:09 Dose: 250 mg Magnesium Hydroxide (Milk Of Magnesia 30 Ml Oral.Susp) 30 ml PO DAILY PRN PRN Reason: Constipation Metformin HCl (Metformin Hcl 500 Mg Tablet) 500 mg PO DAILY [facility] Last Admin: 05/29/25 08:14 Dose: 500 mg Methimazole (Methimazole 5 Mg Tablet) 5 mg PO DAILY [facility] Last Admin: 05/29/25 08:13 Dose: 5 mg Naloxone HCl (Naloxone Hcl 0.4 Mg/Ml Vial) 0.04 mg IVPUSH Q5M PRN PRN Reason: Excessive sedation or RR < 8 Nifedipine (Nifedipine Er 30 Mg Tab.Er.24) 30 mg PO DAILY [facility]; Protocol Last Admin: 05/29/25 08:14 Dose: 30 mg Olanzapine (Olanzapine 10 Mg Tablet) 10 mg PO Q6H PRN PRN Reason: severe agitation Last Admin: 04/16/25 16:28 Dose: 10 mg Prednisone (Prednisone 10 Mg Tablet) 30 mg PO DAILY [facility] Stop: 06/02/25 08:59 Last Admin: 05/29/25 08:12 Dose: 30 mg Tiotropium [place] (Tiotropium [place] 2.5 Mcg 1 Puff/2.5 Mcg Mist.Inhal) 1 puff INHALE DAILY ALLY Last Admin: 05/29/25 08:08 Dose: 1 puff Trazodone HCl (Trazodone Hcl 50 Mg Tablet) 50 mg PO BEDTIME MRX1 PRN PRN Reason: Insomnia Last Admin: 04/04/25 23:21 Dose: 50 mg Allergies Allergies Allergy/AdvReac Type Severity Reaction Status Date / Time latex Allergy Unknown Verified 03/09/25 11:50 peanut Allergy Unknown Verified 03/09/25 11:50 Penicillins Allergy Unknown Verified 03/09/25 11:50 Assessment & Plan Assessment & Plan (1) Psychosis: Status: Acute Code(s): F29 - Unspecified psychosis not due to a substance or known physiological condition Assessment and Plan: r/o autoimmune reasons for psychosis including lupus. 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 Sharif is a 69 year-old woman who presents with a 3 month hx of new onset of psychosis (AH) and combination of paranoid delusions and cap gras delusions. No prior psychiatric hx. She does have of cocaine use but apparently had not used in some years. Daughter suspects she may have relapsed but no ongoing use. Pt presents with more complex theme of delusions. No additional medical work up available including head CT. CBC and cmp unremarkable. 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 It may be related to dementia process but complexity of delusions and psychosis not the common presentation for dementia that have psychosis early on such as in vascular dementia or LBD. Pt presents as gravely disable to able to care for self due to symptoms of psychosis and delusions. 7/8 increase night time risperidone 2mg po qhs increase cogetin at bedtime to 1mg po qhs. lower daily dose to 0.5mg po daily. continue cogentin 0.5mg po daily. clonazepam as prn olanzapine as prn for agitation 02/04 continue tx. 02/05 continue tx. 02/06 continue current dose of risperidone. NOTE THAT pt can't take doses higher than 3 mg/day of risperidone as higher doses had severe EPS. can use olanzapine as well per court order. 02/07/25: Patient has been agitated yelling loudly exist seeking, delusional thinking her daughter/son outside at the door to pick her up. PRNs given in the morning with mild effect. Patient became agitated, aggressive\, assaultive to 1 of the staff on the floor, yelling and hitting her face so grabbing her neck. Physical was started at 16:31 to 1634. Patient was given IM medication of Zyprexa 10 and Valium 10 with good effect. Tomorrow plan: Patient will be benefit from Valium 10 mg twice a day and Zyprexa 5 mg 3 times a day is added into her scheduled medication as current plan with risperidone is not effective. Patient also having a backup for risperidone if she refused. 02/08/25: Slept most of the morning and last night. In better behavior control. No aggressive behavior. She is quiet, self dialogue, and medication compliant. Due to receive restrain medication yesterday. I did not make any medication change. But the Valium and additional Zyprexa appears to be helpful. 02/09 will try to change keppra to depakote for seizures as keppra may exacerbate psychosis. increase risperidone 1mg po daily and 2mg po qhs. may need to add second antipsychotic. 02/10 continues to present as paranoid with AH. at times declines oral medications, requiring IM back per court order. 02/11 continue tx. 02/12 continue tx. 02/13 continue tx. 02/14: no changes today. Monitor for agitation around confusion about hospitalization 02/15: no changes today, self dialogue more overt/extensive today 02/16 add olanzapine 5mg po qhs. continue risperidone. minimal improvement if any. 02/17 continue tx. 02/18 seems more somnolent with bedtime olanzapine, will continue to monitor. 02/19 cbc showed thrombocytopenia, which is new and suspect related to depakote 02/20 pt appears more sedated since addition of olanzapine at bedtime. She continues to self dialogue. minimal improvement. 02/21: Continue current management and treatment plan. 02/22: continue current management and treatment plan. 02/23 continue tx. may need to affirm HCP try different antipsychotic. 02/24 continue tx. results of LENORE 1:360, pattern homogenous A. 02/25 will try rexulti, lower risperidone. pending coordination of medical care to see if underlying autoimmune condition has anything to do with current presentation. 02/26 discussed with hospital workers compensation attorney to dismiss sect 8, HCP invoked and can consent to other treatment. daughter Maricruz give permission to try different antipsychotic. 02/27 decrease risperidone to 1mg po daily, start prolixin 2.5mg po qhs, then increase to BID. continue olanzapine prn for agitation. olanzapine as well per court order. 03/03 pt seen by neurology, added HIV/RPR/LYME, can't have MRI due to cochlear implant. 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 Last Neurology appointment 01/2024. Missed appointment with rheumatology 05/2024, last seen in 02/26/2024. - Pt can't have MRI due to cochlear implant. Had head CT. - continue prolixin 2.5mg po daily, 5mg po qhs. will d/c risperidone, increase prolixin 5mg po BID, back up IM. 03/05 continue tx. 03/06 This conventional mortgage underwriter spoke with pt's regulatory attorney, Dr. Al obtained collateral information. Will coordinate with neurology and rheumatology once LP results are available. r/o reoccurance of pachymeningitis, lupus or other autoimmune cause for psychosis. 03/07: Continue current regimen and plans. Discontinued one-to-one and put in place 5 minute checks 03/08: Continue current plans and regimen 03/09 continue tx. 03/10: continue current mgmt. continues disorganized and psychotic. see neuro note from today. continue with neuro w/u. 03/11: given zyprexa 5 and valium [address] and head CTA. head CTA WNL, chest CT showed numerous pulmonary nodules up to 10 mm in size. no change in presentation. due to persistent requests for discharge, 3-day notice submitted on her behalf. will work toward HCP affirmation by the court. 03/12: per pulm consult, chest CT more c/w rheumatological process than CA, recommended empiric steroid course. awaiting input from neuro. consider Bx of nodules otherwise. continue current mgmt for now. 03/13: variably calm and agitated. planning for bronchoscopy with pulmonary nodule Bx on sunday. continue current mgmt. case discussed with HCP Maricruz (daughter), who is in agreement with plan. 03/14: CSF with notable findings. will f/u with neuro on sunday. stable presentation for now, remains quite psychotic. continue current mgmt. bronchoscopy sunday. 03/15: no change from yesterday in presentation or plan. 03/16: stable presentation. continues confused, wanting to go home. HCP affirmation tomorrow. continue current mgmt. 03/17: stable presdentation. bronchoscopy pending. continue current mgmt. 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 awaiting bronchoscopy. remains psychotic. continue current mgmt for now. 03/20: no change in presentation. still awaiting go-ahead for brochoscopy. continue current mgmt. 03/22: No changes. Noted above. 03/23: awaiting insurance approval for bronchoscopy. stable presentation. 03/24: as for yesterday. 03/25: loudly RIS in milieu today. bronchoscopy scheduled for sunday at 1130. NPO past MN night. stable presentation. continue current mgmt. 03/26 pt presents as more disorganized and inattentive than usual showing more signs of delirious behavior. bronchoscopy was canceled,due to shortage of needles to complete biopsy. will order cbc, cmp, ammonia levels given increase disorganized behavior and worsening attention pointing at a more delirious presentation. * Review of results from LP showing negative results for meningitis panel/paraneoplastic panel (including most common antibody found in SLC which is EARL 1 which was negative), elevated protein in CSF 131 without leukocytosis, also elevated CSF/serum IgG index. elevated anti-ds dna titer 1:80. Such results may point more to a rheumatological condition than infectious condition or malignancy. Mrs. Sharif's OP regulatory attorney, Dr. Al recommends trial of prednisone 40mg po daily at least for 2 weeks. 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 03/31 increase prolixin to 5mg po BID. continue all other medications including prednisone 40mg po daily. 04/01 discussed with her OP regulatory attorney, Dr. Al possibility of transferring to [facility] for further tx of autoimmune condition, suspected also having lupus. continue prednisone. Spoke with daughter who is HCP, daughter concern about pt going to [facility] due to being dismissed several times when pt was first brought psychotic. 04/02 continue tx 04/03 increase prolixin to 5mg po TID. monitor EPS. 04/06 continue tx. 04/07- pending response from [facility] to see if they will take her for further evaluation of autoimmune condition with multidisciplinary team to continue see if psychosis related to autoimmune or primarily psychosis. Some improvement in attention, less guarded. continues to have auditory hallucinations. May consider switch to clozapine given that she has tried 3 antipsychotics with limited efficacy. 04/08 start clozapine 25mg po qhs. continue prolixin 7.5mg po TID. 04/09 increase clozapine to 50mg po qhs. continue prolixin 7.5mg po TID. 04/10 decrease prolixin to 7.5mg po BID. increase clozapine to 75mg po qhs. continue increasing clozapine by 25mg/day. arch support maker, recommends repeat CT in 2 weeks, and hold on bronchoscopy. 04/11: no change today, will titrate Clozapine further tomorrow 04/12: titrate Clozapine to 100 mg QHS 04/13 increase clozapine to 125mg po qhs. continue prolixin 7.5mg po BID. 04/14 Provided update to daughter Maricruz who is HCP in terms of pt being treated for both autoimmune condition that may be contributing to psychosis (with prednione) as well as primarily psychiatric disorder (although less likely) with clozapine. some improvement in attention, slightly less paranoid but continues to present with ongoing AH of her daughter. 04/15 continue tx. 04/16 continue tx. 04/17 start glycopyrralate for drooling, decrease cogentin. 04/17 increase clozapine 150mg po qhs, lower prolixin 2.5mg po BID. back up. 04/18: Continue current management and treatment plan. 04/19: continue current management and treatment plan. 04/20 increase clozapine to 175mg po qhs. 04/21 continue tx. 04/22 continue tx. 04/23 continue tx. will check clozapine levels. 04/[address] followed up done today- much less nodules seen. 04/27 no change in presentation, less paranoid towards staff but ongoing AH. Impaired awareness of surroundings and conversations mostly base on delusional content. Will consult as well with her OP Airway Controller as to whether continue prednisone as initially recommended by rheumatology for suspected lupus, although it has had additional benefits in lung nodules. 04/28 increase clozapine 200mg po qhs. 04/[address] showed improvement in her pulmonary nodules and absence of pulmonary symptoms otherwise. recommendation to taper off prednisone slowly with repeat of chest CT in 3 months for stability of reminder of nodules. her OP regulatory attorney did want to continue prednisone for suspected lupus, may discuss further with rheumatology if they want to continue prednisone or stop it. 04/30 continue tx. 05/01 continue tx. will check clozapine level on 05/04/2505/05 continue tx. pending clozapine levels. 05/06 continue tx. 05/07 continue tx. 05/08 continue tx. 05/09 through 05/11 no change in presentation; continue treatment plan 05/12/25: No change, slept through the night. Medication compliant. Ambulate using walker, walker next to table in dining area where patient sits. Visible in common area but not attended groups. Calm, pleasant and cooperative. No notable side effects from medication. Feeling safe here I want to be home but the weather does not allow me to go home . Last BM was yesterday. Communicate with staff via written form. 05/13/25: Visible, eating and sleeping well. Medication compliant, no side effects. Denies safety concerns, denies voices. however, she is responded to internal stimuli, self dialogues at times. No behavior issues. Pending Clozaril level. 05/14/25: Patient visible, calm, pleasant and cooperative. Medication compliant, some drooling while napping in bed. Passing gas, had BM yesterday. Report feeling tired but denies depression/anxiety. She self dialogue quietly, appear responding to internal stimuli. No behavior issues. No sleeping or appetite problems. Patient observed at some point this afternoon do some coloring art work at the table. Patient was assessed by PT team, report patient is at baseline, using walker. No further assessment needed. Potential will get the bed at [facility]. 05/15/25: Visible, slept well, no appetite issues, compliant with medications. However, patient has not shower often yesterday, per nursing patient believes there was a man in her room therefore she refused to shower yesterday. She states that she will shower later on today when staff is available to help. Reports pain on her back, legs, and joint. She good like to do some coloring after lunch. Per nursing patient has raised her voice asking for tramadol a couple of times a day for pain. Appears responding to internal stimuli, but no major issues. Clazapine 313. Norclozapine 81 Therapeutic. 05/16/25: Patient slept well, no issue with appetite, compliant with medications. Calm, pleasant and cooperative. No behavior issues. Ambulate using a walker. Patient told other peers who on the table in dining area that she talks to herself and out loud because bug in her ear. Patient appeared responding to internal stimuli at baseline. 05/17/25: No issue with sleep or appetite, compliant with medications, visible in common areas at times, mostly required but self dialogue and responding to internal stimuli at times in a quiet way. Patient asked for toilet tree to shower and brush her teeth. Given Tylenol for mild pain with good effect. 05/18/25: Patient is visible in common areas, appear to be tired and sleepy at lunch at the table in dining area. Report she feels ok today, slept well and has no issues with appetite. She asks if she can get a coffee with creamer and sugar after encounter. Report gerenral pain on the back and says I need Tylenol or tramadol . Self report last BM was yesterday. Report I have bug in my ear and feeling down , and I talk to my daughter, my fiance and other peoole when asked who she usually talks to. No behavior issues. Ambulating using walker. Wait for placement. Continue with current tx plan. 05/19/25: Per note: [facility] has accepted patient for admission. Submitted PASRR level I and she will need Level II screen . Updated daughter ( affirmed HCP) and once PASRR is completed patient will transfer. Daughter expressed happiness regarding outcome and the fact that patient will be closer to them in [place]. Estimated date of discharge is within 1-2 weeks LT care bed has not opened at this time, but liaision stated it she would follow. Patient slept well, no issues with sleep, appetite, or medication compliant. She thinks she is leaving tomorrow morning. She appears bright up whenever this provider approaches her. Report she feels good and thanks for checking on her. Last BM is this morning. Continue with current tx plan. Waiting for placement. 05/20/25: Patient slept through the night, visible, self dialogue in common areas, appear tired but brighten up when approach. Report mood is good. Denies anxiety or depression. She believes she should be leaving this morning but the Uber was canceled d/t the weather . Report feeling safe. Ask for coffee and two crackers at the end of encounter when asked if she has any questions. Also discuss with patient regarding weight gain. She says that she has salad and will reduce sugar in her coffee. Will send patient registration rep consult to talk to patient regarding healthier choices to prevent too much weight gain. 05/21: Continue current treatment regimen. Plan to discharge next week. 05/22/25: Patient slept 8 hours, compliant with meds. Informed that Metformin will add on today to help with weight control. Patient states that she will take no meds. However, when nurse offered Metformin, patient took it without any issues. Patient request crackers which nursing asked patient to not having it as lunch will be here in 20-30 min. Patient was irritable regarding not given snack she asked for. Patient responded to internal stimuli, reported that she is taking to my siblings when she was out in dinning room talking to someone who are not there. Potential to be discharged next week with [facility]. Metformin 500mg daily in the AM for weight control. 05/23: continue current management and treatment plan. 05/24: continue current management and treatment plan. 05/25/25: Patient slept for 8 hours, compliant with meds. Nursing report that patient has been trying to not putting too much sugar in her coffee as she has been educated for healthy choices to prevent too much weight gain. Report she feels pretty good but a little tired d/t the weather and there are a lot of things in my mind . Napping after lunch in bed. She says that she wants to go home but somewhat feeling safe here at well. Report that I want to go home but when I get home, I do not make right choice . Report that I am going through a lot. I am trying to handle it and put things in God's hand . Denies voices. Very police and cooperative. Sitting up from lying down during 1-1 assessment showing her cooperative as usual. Seen by Rural Electrification Engineer this morning to assess if necessary to continue on Prednisone. Per Rural Electrification Engineer, will start taper down prednisone down 10mg every 10 days. Prednisone 30mg daily down from 40mg. Will continue with taper. ANC WNL. 05/26/25: Patient reports sleeping well with good appetite. Observed snacking after lunch in dinning area. Mood is good but feel tired and cannot complaint , denies hallucinations but observed responded and talking someone who are not there next to her. However, no behavior issues. She does not know current month/day but does know current year and [facility] that she is at. Report small BM today. 05/27: Patients appears in no acute distress. Continue current treatment. 05/28: Patients appears in no acute distress. Continue current treatment. 05/29/25: Patient slept well, eat well, visible in common area in dining/activity area most of this morning. Observed doing some coloring, self dialoguing as usual at baseline. Last BM was yesterday with soft stool per patient report. Plan to shower today prior to discharge. Compliant with meds, no side effects- drooling only observed while sleeping. Patient has been informed that she is discharged tomorrow by 1100 by different discipline. The team working to get patient ready for tomorrow discharge. Will work in complete discharge summary so SW can fax to new facility- [facility] [place] [facility]. Per SW, does not need to send medication to pharmacy unless it is controlled ones which patient is not prescribed upon discharge. Per nursing, patient slept for 7 hours. ANC on 05/28: 4.7. Patient educated on: diagnosis, medication risk/benefits and therapeutic strategies Informed Consent: further education needed Reason for continued inpatient stay Substantial Risk for: med/psych decompensation Time Spent With Patient Time: Total time managing care of this patient today ____ minutes.
--- NOTE | 2025-05-29 15:48 | PM.PSYDC ---
DS: Providers Provider Date of Service: 05/29/25 Date of admission: 01/20/25 12:52 Date of discharge: 05/30/25 Primary care physician: Balbir Physician Attending physician on admission: Milena Dimas Consults: 03/03/25 14:05 Consult to Neurology Routine Consulting Provider: [facility] Reason for consultation: ?autoimmune causing psychosis/ ?lupus psychosis Has provider been notified: Yes 03/10/25 13:26 Consult to Pulmonology Routine Consulting Provider: [facility] Reason for consultation: ?Sarcoid vs malignancy Has provider been notified: Yes 03/11/25 10:51 Consult to Pulmonology Routine Consulting Provider: [facility] Reason for consultation: Abnormal Chest Xray ? sarcoid or malignancy 04/24/25 17:12 Consult to Pulmonology Routine Consulting Provider: [facility] Reason for consultation: f/u chest CT Has provider been notified: Yes Attending physician on discharge: Marielena Arrieta DS: Diagnosis Discharge Diagnosis (1) Psychosis: Status: Acute (2) Pulmonary nodules: Status: Acute (3) Rheumatoid arthritis involving hand with positive rheumatoid factor: Status: Acute DS: Medications Discharge Medications Home Medications: Home Medications ?Medication ?Instructions ?Recorded ?Confirmed albuterol sulfate 90 mcg/actuation 2 puff inhalation Q4-6H PRN 01/18/25 01/18/25 aerosol inhaler Shortness Of Breath Or Wheezing atorvastatin 40 mg tablet 40 mg PO DAILY 01/18/25 01/18/25 fluticasone 500 mcg-salmeterol 50 1 inh inhalation DAILY 01/18/25 01/18/25 mcg/dose blistr powdr for inhalation (Wixela Inhub) methimazole 5 mg tablet 5 mg PO DAILY 01/18/25 01/18/25 nifedipine 30 mg tablet,extended 30 mg PO DAILY 01/18/25 01/18/25 release 24 hr umeclidinium 62.5 mcg/actuation 1 inh inhalation DAILY 01/18/25 01/18/25 blister powder for inhalation (Incruse Ellipta) Previous Rx's ?Medication ?Instructions ?Recorded clozapine 100 mg tablet 200 mg (2 x 100 mg) PO BEDTIME #0 05/29/25 tabs fluphenazine HCl 2.5 mg tablet 2.5 mg PO BID #0 tabs 05/29/25 glycopyrrolate 1 mg tablet 0.5 mg (1/2 x 1 mg) PO BID #0 tabs 05/29/25 hydrochlorothiazide 25 mg tablet 25 mg PO DAILY #0 tabs 05/29/25 levetiracetam 500 mg/5 mL (5 mL) 250 mg (2.5 mL) PO BID #0 mL 05/29/25 oral solution metformin 500 mg tablet 500 mg PO DAILY #0 tabs 05/29/25 prednisone 10 mg tablet 30 mg (3 x 10 mg) PO DAILY #0 tabs 05/29/25 Mental Status Exam Mental Status Exam Patient Appearance: Appropriate Patient Orientation: Person, Place and Situation Level of Consciousness: Awake and Appropriate Patient Behavior: Appropriate and Cooperative Mood Description: Calm and Appropriate Affect Description: Calm, Appropriate and Constricted Patient Cognition Impaired: Yes Ability to Follow Directions: Good Speech Pattern: Clear and Appropriate Memory Description: Normal for Patient (cognitive impairment ) Delusions: Paranoid Ideation (at baseline ) Thought Process: Distracted and Goal Oriented Thought Content: positive for [place] Judgement: Fair Data Data Completed and Pending Completed studies during hospitalization [Text1]: 05/22/25 05/28/25 18:29 10:57 Absolute Neuts (auto) 6.7 4.7 Creatinine 1.23 Estim Creat Clear Calc 49.0 Estimated GFR 44 03/09/25 12:40 Cerebrospinal Fluid Gram Stain - Final 03/09/25 12:40 Cerebrospinal Fluid Fluid Description - Final 03/09/25 12:40 Cerebrospinal Fluid CSF Culture - Final No growth after 3 days. Imaging Diagnostic Imaging Impressions Head CT 03/05/25 15:51 IMPRESSION: 1. No acute intracranial abnormality. 2. Right-sided cochlear nerve implant with associated streak artifact. 3. Right-sided canal wall up mastoidectomy. Electronically signed by: Levi Greer MD 03/05/2025 04:25 PM EDT RP Lumbar Puncture Fluoroscopy 03/09/25 11:50 IMPRESSION: Successful fluoroscopy-guided lumbar puncture performed without immediate complications Electronically signed by: Thompson Andujar MD 03/09/2025 04:06 PM EDT RP Chest CT 03/11/25 11:52 IMPRESSION: 1. Multiple bilateral pulmonary nodules measuring up to 10 mm in size. Further evaluation should be based on Fleischner Society guidelines below. 2. Cardiomegaly. Findings consistent with pulmonary arterial hypertension. 3. No evidence of mediastinal or hilar lymphadenopathy. Fleischner Criteria for pulmonary nodule follow-up SOLID NODULES: Low risk patient: <6mm: no follow-up 6-8mm: 6 month follow-up CT >8mm: PET/Biopsy/ 3 month follow-up CT High risk patient: <6mm: 12 month follow-up CT 6-8mm: 6 month follow-up CT >8mm: PET/Biopsy/ 3 month follow-up CT SUB-SOLID/GROUNDGLASS NODULES: All patients: > or = 6mm: 6 month follow-up CT *Please note that in patients in the following categories, the Fleischner criteria do not apply: Immunocompromised, lung cancer screening population, age below 35, and patients with known malignancy Electronically signed by: Best Clemons MD 03/11/2025 01:45 PM EDT RP Head CTA 03/11/25 11:52 IMPRESSION: Head CT: No acute intracranial abnormality. CT angiogram of the head: No vascular occlusions. Electronically signed by: Gypsy Salamanca MD 03/11/2025 03:02 PM EDT RP Chest CT 04/24/25 09:58 IMPRESSION: 1. Majority of the previously seen pulmonary nodules have resolved, and were consistent with infectious or inflammatory etiology. 2. There is a persistent 9 mm nodular focus in the lateral right upper lobe, which is felt to represent scarring given the appearance. To be cautious, a 3 month interval follow-up CT is recommended to ensure stability. 3. There is mild to moderate paraseptal emphysema. There is no acute pneumonic consolidation. 4. There is thickening of the small airways suggesting bronchitis. 5. There is moderate cardiac enlargement. Enlarged main pulmonary artery is consistent with pulmonary arterial hypertension. Electronically signed by: Levi Greer MD 04/24/2025 10:56 AM EDT RP DS: Summary Hospital Course Hospital Course: HPI: per admitting provider note: Mrs. Sharif is a 69 year-old woman who presents with a 3 month hx of new onset of psychosis (AH) and combination of paranoid delusions and cap gras delusions. No prior psychiatric hx. She does have of cocaine use but apparently had not used in some years. Daughter suspects she may have relapsed but no ongoing use. Pt presents with more complex theme of delusions. No additional medical work up available including head CT. CBC and cmp unremarkable. 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 It may be related to dementia process but complexity of delusions and psychosis not the common presentation for dementia that have psychosis early on such as in vascular dementia or LBD. Pt presents as gravely disable to able to care for self due to symptoms of psychosis and delusions. Hospital Course: 02/03 increase night time risperidone 2mg po qhs increase cogetin at bedtime to 1mg po qhs. lower daily dose to 0.5mg po daily. continue cogentin 0.5mg po daily. clonazepam as prn olanzapine as prn for agitation 02/04 continue tx. 02/05 continue tx. 02/06 continue current dose of risperidone. NOTE THAT pt can't take doses higher than 3 mg/day of risperidone as higher doses had severe EPS. can use olanzapine as well per court order. 02/07/25: Patient has been agitated yelling loudly exist seeking, delusional thinking her daughter/son outside at the door to pick her up. PRNs given in the morning with mild effect. Patient became agitated, aggressive\, assaultive to 1 of the staff on the floor, yelling and hitting her face so grabbing her neck. Physical was started at 16:31 to 1634. Patient was given IM medication of Zyprexa 10 and Valium 10 with good effect. Tomorrow plan: Patient will be benefit from Valium 10 mg twice a day and Zyprexa 5 mg 3 times a day is added into her scheduled medication as current plan with risperidone is not effective. Patient also having a backup for risperidone if she refused. 02/08/25: Slept most of the morning and last night. In better behavior control. No aggressive behavior. She is quiet, self dialogue, and medication compliant. Due to receive restrain medication yesterday. I did not make any medication change. But the Valium and additional Zyprexa appears to be helpful. 02/09 will try to change keppra to depakote for seizures as keppra may exacerbate psychosis. increase risperidone 1mg po daily and 2mg po qhs. may need to add second antipsychotic. 02/10 continues to present as paranoid with AH. at times declines oral medications, requiring IM back per court order. 02/11 continue tx. 02/12 continue tx. 02/13 continue tx. 02/14: no changes today. Monitor for agitation around confusion about hospitalization 02/15: no changes today, self dialogue more overt/extensive today 02/16 add olanzapine 5mg po qhs. continue risperidone. minimal improvement if any. 02/17 continue tx. 02/18 seems more somnolent with bedtime olanzapine, will continue to monitor. 02/19 cbc showed thrombocytopenia, which is new and suspect related to depakote 02/20 pt appears more sedated since addition of olanzapine at bedtime. She continues to self dialogue. minimal improvement. 02/21: Continue current management and treatment plan. 02/22: continue current management and treatment plan. 02/23 continue tx. may need to affirm HCP try different antipsychotic. 02/24 continue tx. results of LENORE 1:360, pattern homogenous A. 02/25 will try rexulti, lower risperidone. pending coordination of medical care to see if underlying autoimmune condition has anything to do with current presentation. 02/26 discussed with hospital defense attorney to dismiss sect 8, HCP invoked and can consent to other treatment. daughter Maricruz give permission to try different antipsychotic. 02/27 decrease risperidone to 1mg po daily, start prolixin 2.5mg po qhs, then increase to BID. continue olanzapine prn for agitation. olanzapine as well per court order. 03/03 pt seen by neurology, added HIV/RPR/LYME, can't have MRI due to cochlear implant. 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 Last Neurology appointment 01/2024. Missed appointment with rheumatology 05/2024, last seen in 02/26/2024. - Pt can't have MRI due to cochlear implant. Had head CT. - continue prolixin 2.5mg po daily, 5mg po qhs. will d/c risperidone, increase prolixin 5mg po BID, back up IM. 03/05 continue tx. 03/06 This internal communications writer spoke with pt's single stroke preformer, Dr. Al obtained collateral information. Will coordinate with neurology and rheumatology once LP results are available. r/o reoccurance of pachymeningitis, lupus or other autoimmune cause for psychosis. 03/07: Continue current regimen and plans. Discontinued one-to-one and put in place 5 minute checks 03/08: Continue current plans and regimen 03/09 continue tx. 03/10: continue current mgmt. continues disorganized and psychotic. see neuro note from today. continue with neuro w/u. 03/11: given zyprexa 5 and valium [address] and head CTA. head CTA WNL, chest CT showed numerous pulmonary nodules up to 10 mm in size. no change in presentation. due to persistent requests for discharge, 3-day notice submitted on her behalf. will work toward HCP affirmation by the court. 03/12: per pulm consult, chest CT more c/w rheumatological process than CA, recommended empiric steroid course. awaiting input from neuro. consider Bx of nodules otherwise. continue current mgmt for now. 03/13: variably calm and agitated. planning for bronchoscopy with pulmonary nodule Bx on sunday. continue current mgmt. case discussed with HCP Maricruz (daughter), who is in agreement with plan. 03/14: CSF with notable findings. will f/u with neuro on sunday. stable presentation for now, remains quite psychotic. continue current mgmt. bronchoscopy sunday. 03/15: no change from yesterday in presentation or plan. 03/16: stable presentation. continues confused, wanting to go home. HCP affirmation tomorrow. continue current mgmt. 03/17: stable presdentation. bronchoscopy pending. continue current mgmt. 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 awaiting bronchoscopy. remains psychotic. continue current mgmt for now. 03/20: no change in presentation. still awaiting go-ahead for brochoscopy. continue current mgmt. 03/22: No changes. Noted above. 03/23: awaiting insurance approval for bronchoscopy. stable presentation. 03/24: as for yesterday. 03/25: loudly RIS in milieu today. bronchoscopy scheduled for sunday at 1130. NPO past MN night. stable presentation. continue current mgmt. 03/26 pt presents as more disorganized and inattentive than usual showing more signs of delirious behavior. bronchoscopy was canceled,due to shortage of needles to complete biopsy. will order cbc, cmp, ammonia levels given increase disorganized behavior and worsening attention pointing at a more delirious presentation. Review of results from LP showing negative results for meningitis panel/paraneoplastic panel (including most common antibody found in SLC which is EARL 1 which was negative), elevated protein in CSF 131 without leukocytosis, also elevated CSF/serum IgG index. elevated anti-ds dna titer 1:80. Such results may point more to a rheumatological condition than infectious condition or malignancy. Mrs. Sharif's OP single stroke preformer, Dr. Al recommends trial of prednisone 40mg po daily at least for 2 weeks. 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 03/31 increase prolixin to 5mg po BID. continue all other medications including prednisone 40mg po daily. 04/01 discussed with her OP single stroke preformer, Dr. Al possibility of transferring to [facility] for further tx of autoimmune condition, suspected also having lupus. continue prednisone. Spoke with daughter who is HCP, daughter concern about pt going to [facility] due to being dismissed several times when pt was first brought psychotic. 04/02 continue tx 04/03 increase prolixin to 5mg po TID. monitor EPS. 04/06 continue tx. 04/07- pending response from [facility] to see if they will take her for further evaluation of autoimmune condition with multidisciplinary team to continue see if psychosis related to autoimmune or primarily psychosis. Some improvement in attention, less guarded. continues to have auditory hallucinations. May consider switch to clozapine given that she has tried 3 antipsychotics with limited efficacy. 04/08 start clozapine 25mg po qhs. continue prolixin 7.5mg po TID. 04/09 increase clozapine to 50mg po qhs. continue prolixin 7.5mg po TID. 04/10 decrease prolixin to 7.5mg po BID. increase clozapine to 75mg po qhs. continue increasing clozapine by 25mg/day. practice consultant, recommends repeat CT in 2 weeks, and hold on bronchoscopy. 04/11: no change today, will titrate Clozapine further tomorrow 04/12: titrate Clozapine to 100 mg QHS 04/13 increase clozapine to 125mg po qhs. continue prolixin 7.5mg po BID. 04/14 Provided update to daughter Maricruz who is HCP in terms of pt being treated for both autoimmune condition that may be contributing to psychosis (with prednione) as well as primarily psychiatric disorder (although less likely) with clozapine. some improvement in attention, slightly less paranoid but continues to present with ongoing AH of her daughter. 04/15 continue tx. 04/16 continue tx. 04/17 start glycopyrralate for drooling, decrease cogentin. 04/17 increase clozapine 150mg po qhs, lower prolixin 2.5mg po BID. back up. 04/18: Continue current management and treatment plan. 04/19: continue current management and treatment plan. 04/20 increase clozapine to 175mg po qhs. 04/21 continue tx. 04/22 continue tx. 04/23 continue tx. will check clozapine levels. 04/[address] followed up done today- much less nodules seen. 04/27 no change in presentation, less paranoid towards staff but ongoing AH. Impaired awareness of surroundings and conversations mostly base on delusional content. Will consult as well with her OP [employer] Engineer [employer] as to whether continue prednisone as initially recommended by rheumatology for suspected lupus, although it has had additional benefits in lung nodules. 04/28 increase clozapine 200mg po qhs. 04/[address] showed improvement in her pulmonary nodules and absence of pulmonary symptoms otherwise. recommendation to taper off prednisone slowly with repeat of chest CT in 3 months for stability of reminder of nodules. her OP single stroke preformer did want to continue prednisone for suspected lupus, may discuss further with rheumatology if they want to continue prednisone or stop it. 04/30 continue tx. 05/01 continue tx. will check clozapine level on 05/04/2505/05 continue tx. pending clozapine levels. 05/06 continue tx. 05/07 continue tx. 05/08 continue tx. 05/09 through 05/11 no change in presentation; continue treatment plan 05/12/25: No change, slept through the night. Medication compliant. Ambulate using walker, walker next to table in dining area where patient sits. Visible in common area but not attended groups. Calm, pleasant and cooperative. No notable side effects from medication. Feeling safe here I want to be home but the weather does not allow me to go home . Last BM was yesterday. Communicate with staff via written form. 05/13/25: Visible, eating and sleeping well. Medication compliant, no side effects. Denies safety concerns, denies voices. however, she is responded to internal stimuli, self dialogues at times. No behavior issues. Pending Clozaril level. 05/14/25: Patient visible, calm, pleasant and cooperative. Medication compliant, some drooling while napping in bed. Passing gas, had BM yesterday. Report feeling tired but denies depression/anxiety. She self dialogue quietly, appear responding to internal stimuli. No behavior issues. No sleeping or appetite problems. Patient observed at some point this afternoon do some coloring art work at the table. Patient was assessed by PT team, report patient is at baseline, using walker. No further assessment needed. Potential will get the bed at [facility]. 05/15/25: Visible, slept well, no appetite issues, compliant with medications. However, patient has not shower often yesterday, per nursing patient believes there was a man in her room therefore she refused to shower yesterday. She states that she will shower later on today when staff is available to help. Reports pain on her back, legs, and joint. She good like to do some coloring after lunch. Per nursing patient has raised her voice asking for tramadol a couple of times a day for pain. Appears responding to internal stimuli, but no major issues. Clazapine 313. Norclozapine 81 Therapeutic. 05/16/25: Patient slept well, no issue with appetite, compliant with medications. Calm, pleasant and cooperative. No behavior issues. Ambulate using a walker. Patient told other peers who on the table in dining area that she talks to herself and out loud because bug in her ear. Patient appeared responding to internal stimuli at baseline. 05/17/25: No issue with sleep or appetite, compliant with medications, visible in common areas at times, mostly required but self dialogue and responding to internal stimuli at times in a quiet way. Patient asked for toilet tree to shower and brush her teeth. Given Tylenol for mild pain with good effect. 05/18/25: Patient is visible in common areas, appear to be tired and sleepy at lunch at the table in dining area. Report she feels ok today, slept well and has no issues with appetite. She asks if she can get a coffee with creamer and sugar after encounter. Report gerenral pain on the back and says I need Tylenol or tramadol . Self report last BM was yesterday. Report I have bug in my ear and feeling down , and I talk to my daughter, my fiance and other peoole when asked who she usually talks to. No behavior issues. Ambulating using walker. Wait for placement. Continue with current tx plan. 05/19/25: Per note: [facility] has accepted patient for admission. Submitted PASRR level I and she will need Level II screen . Updated daughter ( affirmed HCP) and once PASRR is completed patient will transfer. Daughter expressed happiness regarding outcome and the fact that patient will be closer to them in [place]. Estimated date of discharge is within 1-2 weeks LT care bed has not opened at this time, but liaision stated it she would follow. Patient slept well, no issues with sleep, appetite, or medication compliant. She thinks she is leaving tomorrow morning. She appears bright up whenever this provider approaches her. Report she feels good and thanks for checking on her. Last BM is this morning. Continue with current tx plan. Waiting for placement. 05/20/25: Patient slept through the night, visible, self dialogue in common areas, appear tired but brighten up when approach. Report mood is good. Denies anxiety or depression. She believes she should be leaving this morning but the Uber was canceled d/t the weather . Report feeling safe. Ask for coffee and two crackers at the end of encounter when asked if she has any questions. Also discuss with patient regarding weight gain. She says that she has salad and will reduce sugar in her coffee. Will send commodity buyer consult to talk to patient regarding healthier choices to prevent too much weight gain. 05/21: Continue current treatment regimen. Plan to discharge next week. 05/22/25: Patient slept 8 hours, compliant with meds. Informed that Metformin will add on today to help with weight control. Patient states that she will take no meds. However, when nurse offered Metformin, patient took it without any issues. Patient request crackers which nursing asked patient to not having it as lunch will be here in 20-30 min. Patient was irritable regarding not given snack she asked for. Patient responded to internal stimuli, reported that she is taking to my siblings when she was out in dinning room talking to someone who are not there. Potential to be discharged next week with [facility]. Metformin 500mg daily in the AM for weight control. 05/23: continue current management and treatment plan. 05/24: continue current management and treatment plan. 05/25/25: Patient slept for 8 hours, compliant with meds. Nursing report that patient has been trying to not putting too much sugar in her coffee as she has been educated for healthy choices to prevent too much weight gain. Report she feels pretty good but a little tired d/t the weather and there are a lot of things in my mind . Napping after lunch in bed. She says that she wants to go home but somewhat feeling safe here at well. Report that I want to go home but when I get home, I do not make right choice . Report that I am going through a lot. I am trying to handle it and put things in God's hand . Denies voices. Very police and cooperative. Sitting up from lying down during 1-1 assessment showing her cooperative as usual. Seen by Steel Floor Pan Placing Supervisor this morning to assess if necessary to continue on Prednisone. Per Steel Floor Pan Placing Supervisor, will start taper down prednisone down 10mg every 10 days. Prednisone 30mg daily down from 40mg. Will continue with taper. ANC WNL. 05/26/25: Patient reports sleeping well with good appetite. Observed snacking after lunch in dinning area. Mood is good but feel tired and cannot complaint , denies hallucinations but observed responded and talking someone who are not there next to her. However, no behavior issues. She does not know current month/day but does know current year and [facility] that she is at. Report small BM today. 05/27: Patients appears in no acute distress. Continue current treatment. 05/28: Patients appears in no acute distress. Continue current treatment. 05/29/25: Patient slept well, eat well, visible in common area in dining/activity area most of this morning. Observed doing some coloring, self dialoguing as usual at baseline. Last BM was yesterday with soft stool per patient report. Plan to shower today prior to discharge. Compliant with meds, no side effects- drooling only observed while sleeping. Patient has been informed that she is discharged tomorrow by 1100 by different discipline. The team working to get patient ready for tomorrow discharge. Will work in complete discharge summary so SW can fax to new facility- [facility] for continuous [facility] care. Per SW, does not need to send medication to pharmacy unless it is controlled ones which patient is not prescribed upon discharge. Per nursing, patient slept for 7 hours. ANC on 05/28: 4.7. Recommended to FLU with reumatology, psychiatric, and brain MRI- We could not do MRI here because of cochlear implant. As recommended by practice consultant on 05/25: slowly taper down on Prednisone 10mg every 7days. Patient started the taper from 40mg to 30mg on 05/26. However, will leave it to OP pulmolologist to make further change or suggestion. Currently taking 30mg daily. Patient to discharge to [facility] for continuous [facility] by 1100 on 05/30/25 via ambulance. Nurse to nurse should be done on the day of discharge. Time spent discussing smoking cessation with patient: 3 to 10 minutes Status at Discharge Cognitive/behavioral status at discharge: CONDITION ON DISCHARGE: CURRENT STATUS IT RELATES TO ADMISSION CRITERIA: Stable, improved. Improvements in depression, anxiety, and psychosis. Improvements in sleep, energy, and appetite. Patient can present with delusions/paranoid, self dialogue which can be her baselines. No agitation or aggressive observed, vibile in common area, cooperative. Functional status at discharge: uses cane/walker Overall status at discharge: patient is back to baseline Time Spent with Patient Time attestation: Total time managing care of this patient today ____ minutes. Time spent: Less than 30 minutes Discharge Plan Discharge Anticipated Discharge Date/Time: 05/30/25 11:00 Patient Disposition: Xfer [facility] Discharge Diagnosis: psychosis NOS, COPD, Rheumatoid Arthritis, Pulmonary Nodules Referrals: [facility] [Other] - 06/19/25 8:00 am Referral Note: [facility] [Other] - 05/30/25 11:00 am Referral Note: Transfer to [facility] on 05/30/25 at 11AM. Discharge Medications: New glycopyrrolate 1 mg Tablet 0.5 mg PO BID Qty: 0 0RF fluphenazine HCl 2.5 mg Tablet 2.5 mg PO BID Qty: 0 0RF clozapine 100 mg Tablet 200 mg PO BEDTIME Qty: 0 0RF metformin 500 mg Tablet 500 mg PO DAILY Qty: 0 0RF prednisone 10 mg Tablet 30 mg PO DAILY Qty: 0 0RF hydrochlorothiazide 25 mg Tablet 25 mg PO DAILY Qty: 0 0RF levetiracetam 500 mg/5 mL (5 mL) Solution 250 mg PO BID Qty: 0 0RF Continued nifedipine 30 mg tablet extended release 24hr 30 mg PO DAILY fluticasone propion-salmeterol [Wixela Inhub] 500-50 mcg/dose blister with device 1 inh INHALATION DAILY methimazole 5 mg tablet 5 mg PO DAILY atorvastatin 40 mg tablet 40 mg PO DAILY albuterol sulfate 90 mcg/actuation HFA aerosol inhaler 2 puff inhalation Q4-6H PRN (Reason: Shortness Of Breath Or Wheezing) Incruse Ellipta 62.5 mcg/actuation blister with device 1 inh inhalation DAILY Discontinued terbinafine HCl 250 mg tablet 250 mg PO DAILY chlorthalidone 25 mg tablet 25 mg PO DAILY levetiracetam 500 mg tablet 500 mg PO BID Discharge Orders: Discharge Order (Routine); Ordered 05/30/25 Ordered By: Marielena Arrieta Diet: Regular diet Activity on Discharge: Use cane or walker Stand Alone Forms: Patient Portal Discharge page Print Language: Serbian Care Plan Goals: Maintain mood and safe behaviors Take medications as prescribed Continue to pursue sobriety Practice coping skills Continue with outpatient providers and reach out to them as needed Health Concerns: Mood stability and behaviors Sobriety Plan of Treatment: Follow up with your PCP, psychiatric provider and other outpatient providers regarding above concerns Take medications as prescribed Assessment: Assessment: Risk assessment at time of discharge: Patient was interviewed the day prior to discharge and found to be fully oriented and without any SI or HI. Patient has improved insight and judgment and wants to continue treatment. Patient is not in imminent risk of harm to self or others. .Patient has been observed closely by nursing and unit staff throughout admission; patient has not engaged in any behaviors that suggest dangerousness to self or others and has demonstrated appropriate behaviors and impulse control
[2025-05-29 20:00] VITALS: BP 122/69; PULSE 69; RESP 20; TEMP 36.5; O2SAT 97
[2025-05-30 08:00] VITALS: BP 109/69; PULSE 78; RESP 14; TEMP 36.3; O2SAT 93
[2025-05-30] MEDS: levETIRAcetam Oral Soln 500 MG/5 ML 250 MG PO (08:56)
[2025-05-30] MEDS: NIFEdipine ER 30 MG TAB.ER.24 PO (08:56)
[2025-05-30] MEDS: Fluticasone/Vilanterol 200/25 BLST.W.DEV 1 PUFF INHALE (08:57)
[2025-05-30] MEDS: Tiotropium Bromide 2.5 mcg 1 PUFF/2.5 MCG MIST.INHAL INHALE (08:57)
[2025-05-30 11:38] LABS: Creatinine Clr Calc Pharmacy 53.6; Estimated Glomerular Filt Rate 51
== END 2025-05-30 12:27 | DRG 885 ==
LOC: HO.ED 01-19 19:24 → HO.PGERI 01-20 12:58
PROVIDERS: Hospitalist; Nurse Practitioner Family; Nurse Practitioner Psychiatric/Mental Health; Physician Assistant Medical; Psychiatry & Neurology Neurology; Psychiatry & Neurology Psychiatry; Radiology Diagnostic Radiology; Admitting Provider Social Worker; Emergency Provider Emergency Medicine; Visit Provider Social Worker
PROC: 009U3ZZ Drainage of Spinal Canal, Percutaneous Approach (ICD-10-PCS; CPT 62270; principal; 2025-03-09 12:00)
DX: F29 Unspecified psychosis not due to a substance or known physiological condition (principal); G04.90 Encephalitis and encephalomyelitis, unspecified; M05.9 Rheumatoid arthritis with rheumatoid factor, unspecified; H54.8 Legal blindness, as defined in USA; J44.9 Chronic obstructive pulmonary disease, unspecified; R91.8 Other nonspecific abnormal finding of lung field; M70.62 Trochanteric bursitis, left hip; M70.61 Trochanteric bursitis, right hip; Z96.21 Cochlear implant status; I10 Essential (primary) hypertension; E05.90 Thyrotoxicosis, unspecified without thyrotoxic crisis or storm; Z78.1 Physical restraint status; Z87.891 Personal history of nicotine dependence; Z79.899 Other long term (current) drug therapy
CPT/HCPCS: 36415; 62328; 70250; 70450; 70496; 71045; 71250; 71270; 74018; 80053; 80061; 80143; 80159; 80179; 80307; 81003; 82042; 82085; 82140; 82164; 82565; 82607; 82746; 82945; 82947; 83519; 83916; 84157; 84182; 84443; 85025; 85048; 85610; 85652; 86038; 86039; 86052; 86140; 86147; 86160; 86200; 86225; 86235; 86255; 86341; 86431; 86592; 86596; 86617; 86618; 86753; 87015; 87070; 87205; 87389; 87483; 89051; 93005; 97162; 99285; J1200; J1630; J2003; J2250; J2359; J2679; J2704; J3010; J3360; J7120; Q9967; S9485

== ENCOUNTER → 2025-01-16 20:35 | Outpatient (BNV) | payer OTHER, SELFPAY | PROVIDERS: Emergency Provider Emergency Medicine Emergency Medical Services; Visit Provider Clinical Nurse Specialist Psychiatric/Mental Health, Adult | DX: F29 Unspecified psychosis not due to a substance or known physiological condition (principal) | CPT/HCPCS: 90792; 99231; 99283 ==

== ENCOUNTER → 2025-01-20 09:16 | Outpatient (BNV) | payer OTHER, SELFPAY | PROVIDERS: Admitting Provider Social Worker; Emergency Provider Emergency Medicine; Visit Provider Internal Medicine | DX: Z13.6 Encounter for screening for cardiovascular disorders (principal) | CPT/HCPCS: 93010 ==

== ENCOUNTER 2025-01-20 12:52 | Outpatient (BNV) | payer OTHER, SELFPAY | END 2025-04-24 08:00 | PROVIDERS: Admitting Provider Social Worker; Emergency Provider Emergency Medicine; Visit Provider Radiology Diagnostic Radiology | DX: J43.9 Emphysema, unspecified (principal); R91.8 Other nonspecific abnormal finding of lung field; I51.7 Cardiomegaly | CPT/HCPCS: 71250 ==

== ENCOUNTER 2025-01-20 12:52 | Outpatient (BNV) | payer OTHER, SELFPAY | END 2025-03-03 19:15 | PROVIDERS: Admitting Provider Social Worker; Emergency Provider Emergency Medicine; Visit Provider Radiology Diagnostic Radiology | DX: K59.00 Constipation, unspecified (principal); J18.9 Pneumonia, unspecified organism; Z96.82 Presence of neurostimulator | CPT/HCPCS: 70250; 71045; 74018 ==

== ENCOUNTER 2025-01-20 12:52 | Outpatient (BNV) | payer OTHER, SELFPAY | END 2025-03-09 12:00 | PROVIDERS: Admitting Provider Social Worker; Emergency Provider Emergency Medicine; Visit Provider Radiology Diagnostic Radiology | DX: G93.40 Encephalopathy, unspecified (principal) | CPT/HCPCS: 62328 ==

== ENCOUNTER 2025-01-20 12:52 | Outpatient (BNV) | payer OTHER, SELFPAY | END 2025-03-05 15:51 | PROVIDERS: Admitting Provider Social Worker; Emergency Provider Emergency Medicine; Visit Provider Radiology Diagnostic Radiology | DX: G93.40 Encephalopathy, unspecified (principal) | CPT/HCPCS: 70450 ==

== ENCOUNTER 2025-01-20 12:52 | Outpatient (BNV) | payer OTHER, SELFPAY | END 2025-03-11 11:52 | PROVIDERS: Admitting Provider Social Worker; Emergency Provider Emergency Medicine; Visit Provider Radiology Diagnostic Radiology | DX: L95.9 Vasculitis limited to the skin, unspecified (principal); R91.8 Other nonspecific abnormal finding of lung field; I51.7 Cardiomegaly | CPT/HCPCS: 70496; 71270 ==

== ENCOUNTER → 2025-01-20 12:52 | Outpatient (BNV) | payer OTHER, SELFPAY | PROVIDERS: Admitting Provider Social Worker; Emergency Provider Emergency Medicine; Visit Provider Internal Medicine Pulmonary Disease | DX: M05.749 Rheumatoid arthritis with rheumatoid factor of unspecified hand without organ or systems involvement (principal); R93.89 Abnormal findings on diagnostic imaging of other specified body structures | CPT/HCPCS: 99222 ==

== ENCOUNTER → 2025-01-20 12:52 | Outpatient (BNV) | payer OTHER, SELFPAY | PROVIDERS: Admitting Provider Social Worker; Emergency Provider Emergency Medicine; Visit Provider Psychiatry & Neurology Psychiatry | DX: G04.90 Encephalitis and encephalomyelitis, unspecified (principal); R91.8 Other nonspecific abnormal finding of lung field; M05.749 Rheumatoid arthritis with rheumatoid factor of unspecified hand without organ or systems involvement; F29 Unspecified psychosis not due to a substance or known physiological condition | CPT/HCPCS: 99232 ==

== ENCOUNTER → 2025-01-20 12:52 | Outpatient (BNV) | payer OTHER, SELFPAY | PROVIDERS: Admitting Provider Social Worker; Emergency Provider Emergency Medicine; Visit Provider Nurse Practitioner Family | DX: J44.9 Chronic obstructive pulmonary disease, unspecified (principal) | CPT/HCPCS: 99221 ==

== ENCOUNTER → 2025-01-20 12:52 | Outpatient (BNV) | payer OTHER, SELFPAY | PROVIDERS: Admitting Provider Social Worker; Emergency Provider Emergency Medicine; Visit Provider Psychiatry & Neurology Neurology | DX: G04.90 Encephalitis and encephalomyelitis, unspecified (principal) | CPT/HCPCS: 99222 ==